=== PATIENT | male | born 1970 | race Hispanic/Latino ===

== ENCOUNTER 2021-01-07 17:32 | Inpatient (IN) | payer OTHER, SELFPAY ==
[2021-01-07] MEDS ORDERED: METHYLPREDNISOLONE 125 MG INJ ONE (18:21)
[2021-01-07] MEDS ORDERED: NA CHLORIDE 0.9% 500 ML ONE (18:21)
[2021-01-07] MEDS ORDERED: LEVALBUTEROL 1.25 MG/3 ML NEB ONE (18:21)
[2021-01-07 18:48] LABS: Absolute Lymphocytes (CBC) 0.7 K/uL (0.7-4.9); Basophils % 0.2 % (0-1.3); Hematocrit 37.9 % (39.6-49.0); Lymphocytes % 6.4 % (15.3-44.8); MPV 7.4 fL (7.6-11.3); RBC Red Blood Cell Count 4.38 M/uL (4.33-5.43)
--- NOTE | 2021-01-07 18:56 | RAD REPORT ---
EXAM DESCRIPTION: RAD - Chest Single View - 01/07/2021 6:05 pm CLINICAL HISTORY: COVID+;Cough;Dyspnea COMPARISON: None TECHNIQUE: AP portable chest image was obtained 01/07/2021 6:05 pm . FINDINGS: Lung volumes are low. Extensive airspace opacification present in the mid and lower left l coral field. Moderate mid and upper right lung field airspace opacification present. More patchy opacif ication present in the right lung base. Trachea is midline. Heart and vasculature are normal. No measurable pleural effusion and no pneumothorax. No acute bony abnormality seen. No acute aortic findings suspected. IMPRESSION: Moderate severity bilateral pneumonia pattern most likely COVID-19 pneumonia given the p rovided history.
[2021-01-07 18:59] LABS: Ferritin 373.5 ng/mL (26-388); Potassium 3.8 mmol/L (3.5-5.1)
--- NOTE | 2021-01-07 20:23 | ER ---
Nurse's Notes [facility] Name: Leandro Rand Age: 50 yrs Sex: Male : 1970 Arrival Date: 01/07/2021 Time: 17:35 Bed 19 Private MD: Diagnosis: Hypoxemia;Coronavirus infection, unspecified;Pneumonia due to other infectious organisms, not elsewhere classified Presentation: 01/07 17:40 Chief complaint: Patient states: COVID+ on Thursday, fever, body aches, headache, sv dyspnea, cough since yesterday. Coronavirus screen: Client denies travel out of the [place] in the last 14 days. Client presents with at least one sign or symptom that may indicate coronavirus-19. Standard/surgical mask placed on the client. Provider contacted for isolation considerations. Client reports previous positive COVID test result. Date of collection: January 01, 2021. Ebola Screen: No symptoms or risks identified at this time. Risk Assessment: Do you want to hurt yourself or someone else? Patient reports no desire to harm self or others. Onset of symptoms was January 06, 2021. 17:40 Method Of Arrival: Ambulatory sv 17:40 Acuity: FELI 1 sv 17:41 Initial Sepsis Screen: Does the patient meet any 2 criteria? RR > 20 per min. HR > 90 sv bpm. Yes Does the patient have a suspected source of infection? Yes: Other: COVID. Triage Assessment: 17:40 General: Appears in no apparent distress. uncomfortable, Behavior is calm, cooperative, sv appropriate for age. Neuro: Level of Consciousness is awake, alert, obeys commands, Oriented to person, place, time, situation, Gait is steady. Respiratory: Airway is patent Respiratory effort is labored, shallow, Respiratory pattern is tachypnea. Historical: - Allergies: 17:41 No Known Allergies; sv - PMHx: 17:41 Diabetes - NIDDM; sv - Immunization history:: Adult Immunizations up to date. - Social history:: Smoking status: Patient denies any tobacco usage or history of. - Family history:: not pertinent. - Hospitalizations: : No recent hospitalization is reported. Screenin:37 Abuse screen: Denies threats or abuse. Denies injuries from another. Nutritional ph screening: No deficits noted. Tuberculosis screening: No symptoms or risk factors identified. Fall Risk None identified. Assessment: 17:50 Reassessment: Code sepsis protocol started. ss 17:55 General: Appears uncomfortable, well groomed, Behavior is calm, cooperative, ph appropriate for age, Reports chills for fever for > 3 days. Pain: Denies pain. Neuro: Level of Consciousness is awake, alert, obeys commands, Oriented to person, place, time, situation. Cardiovascular: Capillary refill is sluggish in bilateral fingers. Respiratory: Reports shortness of breath at rest cough that is productive, Airway is patent Respiratory effort is labored, Respiratory pattern is tachypnea. GI: No signs and/or symptoms were reported involving the gastrointestinal system. Derm: Skin is intact, Skin is pink, warm \T\ dry. Musculoskeletal: Circulation, motion, and sensation intact. Range of motion: intact in all extremities. 17:58 Reassessment: Rt at bedside, pt placed on bi-pap at 100%, improved to 95%. ph 20:00 General: Appears uncomfortable, well groomed, Behavior is calm, cooperative, sf appropriate for age. Pain: Denies pain. Neuro: Level of Consciousness is awake, alert, obeys commands. Cardiovascular: Patient's skin is warm and dry. Rhythm is sinus rhythm. Respiratory: Airway is patent Respiratory effort is labored, Respiratory pattern is tachypnea Patient placed on BiPAP: FiO2%: 100 Respiratory Rate: 20. 20:27 Reassessment: Respiratory at bedside to adjust BiPAP. sf 21:00 Respiratory: Patient placed on BiPAP: Inspiratory Pressure: 20 Expiratory (EPAP) sf Pressure: 14 FiO2%: 100 Respiratory Rate: 20. 22:44 Reassessment: Patient appears in no apparent distress at this time. Patient and/or sf family updated on plan of care and expected duration. Pain level reassessed. Patient sleeping. 23:32 Reassessment: Patient appears in no apparent distress at this time. Patient and/or sf family updated on plan of care and expected duration. Pain level reassessed. Patient found slouching down in bed, pulled up and repositioned for comfort and to expand lungs. 01/08 00:44 Reassessment: Patient appears in no apparent distress at this time. Patient and/or sf family updated on plan of care and expected duration. Pain level reassessed. Given urinal per request Patient states symptoms have improved. Vital Signs: 01/07 17:41 BP 139 / 70; Pulse 112; Resp 42; Pulse Ox 50% on R/A; Weight 113.4 kg; Height 5 ft. 7 sv in. (170.18 cm); 18:37 BP 101 / 54; Pulse 99; Resp 30; Pulse Ox 95% on 100% BiPAP; ph 19:00 BP 120 / 57; Pulse 101; Resp 34; Pulse Ox 90% ; sf 20:00 BP 117 / 68; Pulse 97; Resp 34; Pulse Ox 89% ; sf 21:00 BP 106 / 67; Pulse 91; Resp 30; Pulse Ox 94% on BiPAP; sf 22:00 BP 113 / 75; Pulse 87; Resp 28; Pulse Ox 90% on BiPAP; sf 23:00 BP 92 / 67; Pulse 86; Resp 30; Pulse Ox 95% on BiPAP; sf 01/08 00:00 BP 102 / 57; Pulse 85; Resp 30; Pulse Ox 93% on BiPAP; sf 00:50 BP 111 / 83; Pulse 100; Resp 30; Pulse Ox 96% on BiPAP; sf 01:00 BP 130 / 77; Pulse 89; Resp 28; Pulse Ox 94% ; sf 01/07 17:41 Body Mass Index 39.16 (113.40 kg, 170.18 cm) sv 01/07 17:41 Pt placed on 100% NRB. Informed Dr Santoyo and RT paged to place BIPAP. sv ED Course: 17:35 Patient arrived in ED. ds1 17:39 Arm band placed on. sv 17:41 Triage completed. sv 17:44 Nicholas Santoyo MD is Attending Physician. rn 17:59 Lachelle Calderón RN is Primary Nurse. ph 18:00 Inserted saline lock: 20 gauge in right antecubital area, using aseptic technique. ph Blood collected. 18:05 XRAY Chest (1 view) In Process Unspecified. EDMS 18:37 Patient has correct armband on for positive identification. Bed in low position. Call ph light in reach. Side rails up X 1. support dba on. Pulse ox on. NIBP on. Door closed. Noise minimized. 19:02 Attending Physician role handed off by Nicholas Santoyo MD ma2 19:02 Reyna Ndiaye MD is Attending Physician. ma2 19:14 Primary Nurse role handed off by Lachelle Calderón RN mw2 19:44 Mick Mai, MARILU is Primary Nurse. sf 20:23 Steve Glaser DO is Hospitalizing Provider. [facility] 23:32 Door closed. Noise minimized. Lights dimmed. Verbal reassurance given. Head of bed sf lowered. 02 00:52 No provider procedures requiring assistance completed. sf 01:41 Patient admitted, IV remains in place. sf Administered Medications: 01/07 18:18 Drug: NS 0.9% 500 ml Route: IV; Rate: bolus; Site: right antecubital; ph 19:19 Follow up: Response: No adverse reaction; IV Status: Completed infusion; IV Intake: ph 500ml 18:20 Drug: SOLU-Medrol 125 mg Route: IVP; Site: right antecubital; ph 19:19 Follow up: Response: No adverse reaction ph 18:20 Drug: Xopenex (3) 1.25 mg Route: Inhalation; ph 19:19 Follow up: Response: No adverse reaction ph Intake: 19:19 IV: 500ml; Total: 500ml. ph Outcome: 20:23 Decision to Hospitalize by Provider. [facility] 01/08 00:52 Admitted to ICU accompanied by nurse, via stretcher, room 3, with oxygen, with chart, sf Report called to MARILU Ford 00:54 Condition: improved sf 01:49 Patient left the ED. sf Signatures: Dispatcher [employer] EDMirtha Robledo RN RN Deanna Tejada ds1 Nicholas Santoyo MD MD rn Smirch, Shelby, RN RN Lachelle Calderón RN RN Reyna Ndiaye MD MD [facility] [place] mw2 Mick Mai RN RN sf Corrections: (The following items were deleted from the chart) 02 17:46 17:40 Acuity: FELI 3 sv sv 17:52 17:41 BP 139 / 70; Pulse 112bpm; Resp 42bpm; Pulse Ox 50% RA; 113.4 kg; Height 5 ft. 7 sv in.; BMI: 39.1; sv 18:54 18:37 Pulse 99bpm; Resp 30bpm; Pulse Ox 95% 02 100% BiPAP; ph ph 20:37 20:00 BP 117 / 68; Pulse 97bpm; Resp 24bpm; Pulse Ox 89%; sf sf 20:37 19:00 BP 120 / 57; Pulse 101bpm; Resp 24bpm; Pulse Ox 90%; sf sf 01/08 00:49 00:44 Reassessment: Patient appears in no apparent distress at this time. Patient sf and/or family updated on plan of care and expected duration. Pain level reassessed. Patient states symptoms have improved. sf
--- NOTE | 2021-01-07 20:23 | EDPHYS ---
Physician Documentation [facility] Name: Leandro Rand Age: 50 yrs Sex: Male : 1970 Arrival Date: 01/07/2021 Time: 17:35 Bed 19 Private MD: ED Physician Reyna Ndiaye HPI: 01/07 17:52 This 50 yrs old Male presents to ER via Ambulatory with complaints of Covid+ rn Diff Breathing. 17:52 The patient has shortness of breath at rest. Onset: The symptoms/episode began/occurred rn yesterday. Duration: The symptoms are continuous. The patient's shortness of breath is aggravated by exertion, light activity, talking, walking. Associated signs and symptoms: Pertinent positives: productive cough, fever, Pertinent negatives: hemoptysis. Severity of symptoms: At their worst the symptoms were moderate in the emergency department the symptoms are unchanged. The patient has not experienced similar symptoms in the past. The patient has been recently seen by a physician:. Reports COVID +, tested 5-6 days ago, became sob and worse since yesterday, + cough, worse with exertion. No chest pain. No chronic lung problems. . Historical: - Allergies: 17:41 No Known Allergies; sv - PMHx: 17:41 Diabetes - NIDDM; sv - Immunization history:: Adult Immunizations up to date. - Social history:: Smoking status: Patient denies any tobacco usage or history of. - Family history:: not pertinent. - Hospitalizations: : No recent hospitalization is reported. ROS: 17:52 Constitutional: + fever Eyes: Negative for injury, pain, redness, and discharge, ENT: rn Negative for injury, pain, and discharge, Cardiovascular: + palpitations Respiratory: + sob and cough Abdomen/GI: Negative for abdominal pain, nausea, vomiting, diarrhea, and constipation, MS/Extremity: Negative for injury and deformity, Skin: Negative for injury, rash, and discoloration, Neuro: + generalized weakness Exam: 17:52 Constitutional: This is a well developed, well nourished patient who is awake, alert, rn moderate tachypnea with labored breathing Head/Face: Normocephalic, atraumatic. ENT: NO stridor, dry MM Cardiovascular: Tachycardic, regular Respiratory: + moderate tachypnea, poor inspiratory air flow Abdomen/GI: Soft, non-tender Skin: Warm, dry MS/ Extremity: Pulses equal, no cyanosis. Neurovascular intact. Full, normal range of motion. Equal circumference. Neuro: Awake and alert, GCS 15 18:23 ECG was reviewed by the Attending Physician. rn Vital Signs: 17:41 BP 139 / 70; Pulse 112; Resp 42; Pulse Ox 50% on R/A; Weight 113.4 kg; Height 5 ft. 7 sv in. (170.18 cm); 18:37 BP 101 / 54; Pulse 99; Resp 30; Pulse Ox 95% on 100% BiPAP; ph 19:00 BP 120 / 57; Pulse 101; Resp 34; Pulse Ox 90% ; sf 20:00 BP 117 / 68; Pulse 97; Resp 34; Pulse Ox 89% ; sf 21:00 BP 106 / 67; Pulse 91; Resp 30; Pulse Ox 94% on BiPAP; sf 22:00 BP 113 / 75; Pulse 87; Resp 28; Pulse Ox 90% on BiPAP; sf 23:00 BP 92 / 67; Pulse 86; Resp 30; Pulse Ox 95% on BiPAP; sf 01/08 00:00 BP 102 / 57; Pulse 85; Resp 30; Pulse Ox 93% on BiPAP; sf 00:50 BP 111 / 83; Pulse 100; Resp 30; Pulse Ox 96% on BiPAP; sf 01:00 BP 130 / 77; Pulse 89; Resp 28; Pulse Ox 94% ; sf 01/07 17:41 Body Mass Index 39.16 (113.40 kg, 170.18 cm) sv 01/07 17:41 Pt placed on 100% NRB. Informed Dr Santoyo and RT paged to place BIPAP. sv MDM: 17:44 Patient medically screened. rn 20:19 Differential diagnosis: Anemia Anxiety Reaction asthma, Bronchitis pneumonia, reactive ma2 airway disease, Sepsis. Data reviewed: vital signs, nurses notes. Counseling: I had a detailed discussion with the patient and/or guardian regarding: the historical points, exam findings, and any diagnostic results supporting the discharge/admit diagnosis, the presence of at least one elevated blood pressure reading (>120/80) during this emergency department visit, the need for further work-up and treatment in the hospital. 01/07 17:52 Order name: CBC with Diff rn 01/07 17:52 Order name: Basic Metabolic Panel rn 01/07 17:52 Order name: C-Reactive Protein rn 01/07 17:52 Order name: Lactate rn 01/07 17:52 Order name: Ferritin rn 01/07 17:52 Order name: Blood Culture Adult (2) rn 01/07 17:52 Order name: Procalcitonin; Complete Time: 20:00 rn 01/07 17:52 Order name: CBC with Automated Diff EDMS 01/07 17:52 Order name: Basic Metabolic Panel; Complete Time: 19:23 EDMS 01/07 17:52 Order name: C-Reactive Protein; Complete Time: 19:23 EDMS 01/07 17:52 Order name: Lactate; Complete Time: 18:33 EDMS 01/07 17:52 Order name: Ferritin; Complete Time: 19:23 EDMS 01/07 21:19 Order name: Comprehensive Metabolic Panel EDMS 01/07 21:19 Order name: Comprehensive Metabolic Panel EDMS 01/07 17:52 Order name: IV Start; Complete Time: 18:01 rn 01/07 17:52 Order name: XRAY Chest (1 view); Complete Time: 19:23 rn 01/07 17:52 Order name: BIPAP rn 01/07 18:18 Order name: Labs - recollect needed: recollect all green top; Complete Time: 18:35 bd 02 21:20 Order name: Consistent Carb (ADA) [address] EDMS 01/07 21:20 Order name: CBC with Automated Diff EDMS 01/07 21:20 Order name: CBC with Automated Diff EDMS 01/07 21:26 Order name: CBC Smear Scan EDMS EC:23 Rate is 100 beats/min. Rhythm is regular. QRS [place] is Normal. [place] interval is normal. rn QRS interval is normal. QT interval is normal. No Q waves. T waves are Normal. No ST changes noted. Clinical impression: Normal ECG. Interpreted by me. Reviewed by me. Administered Medications: 18:18 Drug: NS 0.9% 500 ml Route: IV; Rate: bolus; Site: right antecubital; ph 19:19 Follow up: Response: No adverse reaction; IV Status: Completed infusion; IV Intake: ph 500ml 18:20 Drug: SOLU-Medrol 125 mg Route: IVP; Site: right antecubital; ph 19:19 Follow up: Response: No adverse reaction ph 18:20 Drug: Xopenex (3) 1.25 mg Route: Inhalation; ph 19:19 Follow up: Response: No adverse reaction ph Disposition: 01/07/21 20:23 Hospitalization ordered by Steve Glaser for Inpatient Admission. Preliminary diagnosis are Hypoxemia, Coronavirus infection, unspecified, Pneumonia due to other infectious organisms, not elsewhere classified. - Bed requested for Intensive Care Unit. - Status is Inpatient Admission. sf - Condition is Stable. - Problem is new. - Symptoms are unchanged. Signatures: Dispatcher [employer] EDMS Apurva Queen Stephanie, RN RN Nicholas Santoyo MD MD rn Calderón, MARILU Larose [facility] RN Reyna Ndiaye MD MD [facility] Mick Mai RN RN sf Corrections: (The following items were deleted from the chart) 23:36 20:23 Hospitalization Ordered by Steve Glaser DO for Inpatient Admission. Preliminary cg diagnosis is Hypoxemia; Coronavirus infection, unspecified; Pneumonia due to other infectious organisms, not elsewhere classified. Bed requested for Intensive Care Unit. Status is Inpatient Admission. Condition is Stable. Problem is new. Symptoms are unchanged. [facility] 01/08 01:49 01/07 23:36 01/07/2021 20:23 Hospitalization Ordered by Steve Glaser DO for Inpatient sf Admission. Preliminary diagnosis is Hypoxemia; Coronavirus infection, unspecified; Pneumonia due to other infectious organisms, not elsewhere classified. Bed requested for Intensive Care Unit. Status is Inpatient Admission. Condition is Stable. Problem is new. Symptoms are unchanged.
[2021-01-07] MEDS ORDERED: IPRATROPIUM BROM 0.5MG/2.5ML NEB PRN (21:13)
[2021-01-07] MEDS ORDERED: ZOLPIDEM TARTRATE 5 MG TABLET PO PRN (21:13)
[2021-01-07] MEDS ORDERED: ALBUTEROL 2.5 MG/3 ML NEB SOL NEB PRN (21:13)
[2021-01-07 21:26] LABS: Blood Morphology Comment NOT SEEN (NOT SEEN); Platelet Estimate ADEQ
[2021-01-07 21:27] LABS: White Blood Cell Scan OK (OK)
--- NOTE | 2021-01-07 21:27 | P.HP ---
Certification for Inpatient Patient admitted to: Inpatient Patient will require the following post-hospital care: None Practitioner: I am a practitioner with admitting privileges, knowledge of patient current condition, hospital course, and medical plan of care. Services: Services provided to patient in accordance with Admission requirements found in Title 42 Section 412.3 of the Code of Federal Regulations Patient History Date of Service: 01/08/21 Reason for admission: covid 19 disease History of Present Illness: 50 y o male with medical hx of diabetes type 2 admitted for management of covid 19 disease. he had c/o sob for 3 days and weakness. he denied any overt fever but he did state that he has weakness and some mild chest discomfort. he denied any headache, focal weakness or n/v. he was noted to be significantly short of breath and hypoxic in the ED. He was started on bipap for resp failure and he was admitted for inpt care. CXR done in the ED revealed Allergies No Known Allergies Allergy (Verified 01/08/21 02:35) Home medications list reviewed: Yes Home Medications: Famotidine [Pepcid] 20 mg PO DAILY 01/08/21 Metformin HCl [Glucophage] 500 mg PO BIDWM 01/08/21 Review of Systems General: Weakness, Malaise Eyes: Unremarkable ENT: Unremarkable Respiratory: Cough, Shortness of Breath, SOB with Excertion Cardiovascular: Chest Pain Gastrointestinal: Unremarkable Genitourinary: Unremarkable Integumentary: Unremarkable Neurological: Unremarkable Physical Examination - Physical Exam General: Alert, Oriented x3, Moderate distress HEENT: Atraumatic, Normocephalic Neck: Supple Respiratory: Diminished Cardiovascular: Regular rate/rhythm, Normal S1 S2 Gastrointestinal: Normal bowel sounds Neurological: Normal speech, Normal strength at 5/5 x4 extr, Cranial nerves 3-12 intact - Studies Laboratory Data (last 24 hrs) 01/07/21 18:24: Sodium 135 L, Potassium 3.8, BUN 16, Creatinine 1.00, Glucose 406 H* 01/07/21 17:57: WBC 11.60 H, Hgb 12.8 L, Hct 37.9 L, Plt Count 295 Assessment and Plan - Plan 1.COVID 19 disease-he has been started on dexamethasone, zinc and vit c. remdesivir dose to be considered as per pulm/ID. 2.Diabetes type 2-SSI and carb restricted diet to be continued. 3.Resp failure-he is on bipap. we will monitor closely. 4.Pneumonia-suspected based on covid disease. empiric antibiotic of azithromycin and ceftriaxone has been started. we will monitor closely. - Advance Directives Does patient have a Living Will: No Does patient have a Durable POA for Healthcare: No
[2021-01-08] MEDS ORDERED: NA CHLORIDE 0.9% 250 ML ONE (01:57)
[2021-01-08] MEDS ORDERED: AZITHROMYCIN 500 MG INJ IVPB ONE (01:58)
[2021-01-08] MEDS ORDERED: AZITHROMYCIN IV 500 MG in NA CHLORIDE 0.9% 250 ML IVPB SCH (02:00)
[2021-01-08] MEDS ORDERED: CEFTRIAXONE/SWI 1gm 1 GM/10 ML SYR IV SCH (02:00)
[2021-01-08 05:21] LABS: Absolute Lymphocytes (CBC) 0.3 K/uL (0.7-4.9); Basophils % 0.1 % (0-1.3); Hematocrit 36.8 % (39.6-49.0); Lymphocytes % 3.7 % (15.3-44.8); MPV 7.5 fL (7.6-11.3); RBC Red Blood Cell Count 4.14 M/uL (4.33-5.43)
[2021-01-08 05:35] LABS: ALT/SGPT 60 U/L (12-78); AST/SGOT 45 U/L (15-37); Albumin 2.3 g/dL (3.4-5.0); Alkaline Phosphatase 225 U/L (45-117); BUN Blood Urea Nitrogen 20 mg/dL (7-18); Bicarbonate 23 mmol/L (21-32); Bilirubin Total 0.4 mg/dL (0.2-1.0); Glucose Level 383 mg/dL (74-106); Potassium 4.3 mmol/L (3.5-5.1); Protein, Total 7.7 g/dL (6.4-8.2); Sodium Level 139 mmol/L (136-145)
[2021-01-08] MEDS ORDERED: PNEUMOCOCCAL VACCINE 0.5 ML IMVAC ONE (08:00)
[2021-01-08] MEDS: INSULIN -REGULAR HUMAN 50 UNIT/0.5 ML ML SQ SCH ×5 (08:56→20:11)
[2021-01-08] MEDS: IVERMECTIN 3 MG TABLET PO SCH (08:57)
[2021-01-08] MEDS: ZINC SULFATE 220 MG CAP PO SCH (08:57)
[2021-01-08] MEDS: FAMOTIDINE 20 MG TAB PO SCH (08:57)
[2021-01-08] MEDS ORDERED: ENOXAPARIN 40 MG/0.4 ML SQ SCH (09:00)
[2021-01-08] MEDS ORDERED: ASCORBIC ACID 500 MG TABLET PO SCH (09:00)
[2021-01-08] MEDS ORDERED: METHYLPRED NA SUC 80 MG in NA CHLORIDE 0.9% 100 ML IV SCH (09:00)
[2021-01-08] MEDS ORDERED: CEFTRIAXONE 1 GM/NS 50 ML 1 GM/50 ML BAG IV SCH (09:00)
[2021-01-08] MEDS: METHYLPREDNISOLONE 125 MG INJ IV SCH ×3 (09:07→20:11)
[2021-01-08] MEDS: INSULIN GLARGINE 100 UNITS/ML SQ SCH ×2 (12:00→20:09)
[2021-01-08] MEDS: BENZONATATE 100 MG CAP PO PRN ×2 (12:07→17:47)
--- NOTE | 2021-01-08 12:29 | P.CNS ---
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 Complaint: Respiratory failure from orr virus History of Present Illness: Patient is 50 years of age admitted with 2 week history of being increasing shortness of breath fever cough bodyaches was diagnosed with orr virus pneumonia is currently on high-flow with high concentrations of oxygen Allergies No Known Allergies Allergy (Verified 01/08/21 02:35) Home Medications: Famotidine [Pepcid] 20 mg PO DAILY 01/08/21 Metformin HCl [Glucophage] 500 mg PO BIDWM 01/08/21 - Past Medical/Surgical History Diabetic: Yes -: diabetes -: Acid reflux - Social History Alcohol use: No CD- Drugs: No Caffeine use: Yes Place of Residence: Home Review of Systems General: Weakness Respiratory: Cough, Shortness of Breath Physical Examination Temp Pulse Resp BP Pulse Ox 97.1 F 107 H 38 H 104/56 L 90 L 01/08/21 08:00 01/08/21 09:00 01/08/21 09:00 01/08/21 09:00 01/08/21 09:00 Laboratory Data (last 24 hrs) 01/07/21 18:24: Sodium 135 L, Potassium 3.8, BUN 16, Creatinine 1.00, Glucose 406 H* 01/07/21 17:57: WBC 11.60 H, Hgb 12.8 L, Hct 37.9 L, Plt Count 295 - Problems (1) COVID-19 Current Visit: Yes Status: Acute Plan: Patient is 50 years of age admitted with respiratory failure from orr virus continue with high dose with multi vitamins fully anti coagulated high-dose steroids ivermectin labs reviewed
[2021-01-08] MEDS: ASCORBIC ACID 500 MG TABLET PO SCH ×2 (13:04→20:12)
--- NOTE | 2021-01-08 15:56 | P.PN ---
Subjective Date of Service: 01/08/21 Chief Complaint: Respiratory failure from orr virus Patient BiPAP depending, on 100% FiO2 and saturating 88 to 90%. Physical Examination - Vital Signs Temperature: 97.4 F Blood Pressure: 132/76 Pulse: 93 Respirations: 27 Pulse Ox (%): 89 - Physical Exam General: Alert, Oriented x3, Other (Awake) HEENT: Other (BiPAP applied) Neck: Supple Respiratory: Crackles/rales (Bilateral) Cardiovascular: No edema, Regular rate/rhythm Gastrointestinal: Soft and benign, Non-distended Musculoskeletal: No clubbing, No swelling Integumentary: No rashes, No erythema Neurological: Other (No focal motor deficit) - Studies Laboratory Data (last 24 hrs) 01/07/21 18:24: Sodium 135 L, Potassium 3.8, BUN 16, Creatinine 1.00, Glucose 406 H* 01/07/21 17:57: WBC 11.60 H, Hgb 12.8 L, Hct 37.9 L, Plt Count 295 Assessment And Plan - Current Problems (Diagnosis) (1) Acute respiratory failure with hypoxia Current Visit: Yes Status: Acute (2) Pneumonia due to COVID-19 virus Current Visit: Yes Status: Acute (3) Type 2 diabetes mellitus Current Visit: Yes Status: Acute - Plan Continue BiPAP therapy. High-dose IV steroid. Vitamin-D, vitamin-C and zinc supplementation. Patient seen by pulmonary and given a dose of Ivermectin. Chest physiotherapy. Will give convalescent plasma and Remdesivir. Aggressive insulin sliding scale for glucose management. Hold home antidiabetics. Start Lantus insulin for hyperglycemia. Titrate oxygen.
[2021-01-08] MEDS: METFORMIN HCL 500 MG TAB PO SCH (16:43)
[2021-01-08] MEDS ORDERED: NA CHLORIDE 0.9% 250 ML IV ONE (17:00)
[2021-01-08] MEDS ORDERED: Remdesivir 200 MG in NA CHLORIDE 0.9% 250 ML IV ONE (17:00)
[2021-01-08] MEDS ORDERED: dexAMETHasone 10 MG/ML VIAL IV SCH (18:00)
--- NOTE | 2021-01-08 18:43 | EKG ---
Test Date: 2021-01-07 Test Time: 18:11:34 Cloth Neutralizer: PH MEASUREMENT RESULTS: Intervals: Rate: 100 UT: 122 QRSD: 78 QT: 362 QTc: 466 [place]: P: 54 UT: 122 QRS: 19 T: 39 INTERPRETIVE STATEMENTS: Normal sinus rhythm Normal ECG No previous ECG available for comparison Electronically Signed On 01-08-21 18:40:25 CHART CHANGER by Renzo Schmitz
[2021-01-08] MEDS: APIXABAN 5 MG TABLET PO SCH (20:10)
[2021-01-08] MEDS: MELATONIN 5 MG TABLET PO SCH (20:10)
[2021-01-08] MEDS: THIAMINE HCL 100 MG TABLET PO SCH (20:12)
[2021-01-09 05:09] LABS: Absolute Lymphocytes (CBC) 0.8 K/uL (0.7-4.9); Basophils % 0.2 % (0-1.3); Hematocrit 37.3 % (39.6-49.0); Lymphocytes % 7.4 % (15.3-44.8); MPV 7.5 fL (7.6-11.3)
[2021-01-09 05:27] LABS: ALT/SGPT 51 U/L (12-78); AST/SGOT 40 U/L (15-37); Albumin 2.4 g/dL (3.4-5.0); Alkaline Phosphatase 201 U/L (45-117); BUN Blood Urea Nitrogen 23 mg/dL (7-18); Bicarbonate 28 mmol/L (21-32); Bilirubin Direct < 0.1 mg/dL (0-0.2); Bilirubin Total 0.3 mg/dL (0.2-1.0); Glucose Level 323 mg/dL (74-106); Potassium 4.3 mmol/L (3.5-5.1); Protein, Total 7.9 g/dL (6.4-8.2); Sodium Level 143 mmol/L (136-145)
[2021-01-09] MEDS ORDERED: D50W 25 GM/50 ML SYRINGE IV PRN (08:20)
[2021-01-09] MEDS ORDERED: GLUCAGON 1 MG/VIAL IM PRN ×2 (08:20→11:45)
[2021-01-09] MEDS: FAMOTIDINE 20 MG TAB PO SCH (08:32)
[2021-01-09] MEDS: INSULIN -REGULAR HUMAN 50 UNIT/0.5 ML ML SQ SCH ×4 (08:32→20:20)
[2021-01-09] MEDS: ASCORBIC ACID 500 MG TABLET PO SCH ×3 (08:33→20:19)
[2021-01-09] MEDS: APIXABAN 5 MG TABLET PO SCH ×2 (08:33→20:19)
[2021-01-09] MEDS: ZINC SULFATE 220 MG CAP PO SCH (08:33)
[2021-01-09] MEDS: METFORMIN HCL 500 MG TAB PO SCH ×2 (08:33→17:44)
[2021-01-09] MEDS: VITAMIN D 1000 UNIT TAB PO SCH (08:33)
[2021-01-09] MEDS: THIAMINE HCL 100 MG TABLET PO SCH ×2 (08:33→20:19)
[2021-01-09] MEDS: METHYLPREDNISOLONE 125 MG INJ IV SCH ×3 (08:34→20:19)
[2021-01-09] MEDS: INSULIN GLARGINE 100 UNITS/ML SQ SCH ×2 (08:34→20:20)
[2021-01-09] MEDS: BENZONATATE 100 MG CAP PO PRN (08:47)
[2021-01-09] MEDS ORDERED: SITAGLIPTIN PHOS 100 MG TAB PO SCH (09:00)
[2021-01-09] MEDS: Remdesivir 100 MG in NA CHLORIDE 0.9% 250 ML IV SCH (09:14)
--- NOTE | 2021-01-09 11:47 | P.PN ---
Subjective Date of Service: 01/09/21 Chief Complaint: Respiratory failure from orr virus Subjective: Improving (No change in patient's condition still hypoxic) Review of Systems General: Weakness Respiratory: Shortness of Breath Physical Examination - Vital Signs Temperature: 97.9 F Blood Pressure: 145/89 Pulse: 86 Respirations: 39 Pulse Ox (%): 89 Assessment & Plan - Problems (Diagnosis) (1) COVID-19 Current Visit: Yes Status: Acute Plan: Respiratory failure from orr virus diabetes is out of control and insulin increase metformin increase sitagliptin at spironolactone
[2021-01-09] MEDS ORDERED: D50W 25 GM/50 ML VIAL IV PRN (11:57)
[2021-01-09] MEDS: SPIRONOLACTONE 25 MG TABLET PO SCH (12:14)
--- NOTE | 2021-01-09 13:13 | P.PN ---
Subjective Date of Service: 01/09/21 Chief Complaint: Respiratory failure from orr virus Patient doing better than yesterday. He was seen up in a chair. He was tolerating 100% non-rebreather. He states he feels better. Physical Examination - Vital Signs Temperature: 97.9 F Blood Pressure: 153/93 Pulse: 66 Respirations: 39 Pulse Ox (%): 89 - Physical Exam General: Alert, Mild distress Neck: JVD not distended Respiratory: Normal air movement Cardiovascular: No edema, Regular rate/rhythm Gastrointestinal: Non-distended Musculoskeletal: No swelling Integumentary: No rashes Neurological: Other (No focal motor deficit) Assessment And Plan - Current Problems (Diagnosis) (1) Acute respiratory failure with hypoxia Current Visit: Yes Status: Acute (2) Pneumonia due to COVID-19 virus Current Visit: Yes Status: Acute (3) Type 2 diabetes mellitus Current Visit: Yes Status: Acute - Plan Continue BiPAP therapy, and high-flow oxygen as needed Contain High-dose IV steroid. Vitamin-D, vitamin-C and zinc supplementation. Status post Ivermectin. Status post convalescent plasma. Patient is getting Remdesivir. Aggressive insulin sliding scale for glucose management. Hold home antidiabetics. Titrate Lantus insulin. Lantus increased to 10 mg b.i.d. to treat hypergl ycemia. Pulmonary is following.
[2021-01-09] MEDS: INSULIN 70/30 100 UNITS/ML SQ SCH (17:43)
[2021-01-09] MEDS: MELATONIN 5 MG TABLET PO SCH (20:19)
[2021-01-10 05:32] LABS: Absolute Lymphocytes (CBC) 0.5 K/uL (0.7-4.9); Basophils % 0.2 % (0-1.3); Hematocrit 37.7 % (39.6-49.0); Lymphocytes % 5.1 % (15.3-44.8); MPV 7.3 fL (7.6-11.3); RBC Red Blood Cell Count 4.26 M/uL (4.33-5.43)
[2021-01-10 05:51] LABS: ALT/SGPT 40 U/L (12-78); AST/SGOT 25 U/L (15-37); Albumin 2.3 g/dL (3.4-5.0); Alkaline Phosphatase 174 U/L (45-117); Bilirubin Direct < 0.1 mg/dL (0-0.2); Bilirubin Total 0.3 mg/dL (0.2-1.0); Ferritin 395.1 ng/mL (26-388); Protein, Total 7.1 g/dL (6.4-8.2)
[2021-01-10] MEDS: INSULIN 70/30 100 UNITS/ML SQ SCH ×2 (07:30→17:28)
[2021-01-10 08:02] LABS: Blood Morphology Comment NOT SEEN (NOT SEEN); Platelet Estimate ADEQ
--- NOTE | 2021-01-10 08:21 | P.PN ---
Subjective Date of Service: 01/10/21 Chief Complaint: Respiratory failure from orr virus No change still requiring high concentrations of oxygen Review of Systems General: Weakness Respiratory: Shortness of Breath Physical Examination - Vital Signs Temperature: 97.3 F Blood Pressure: 138/86 Pulse: 68 Respirations: 33 Pulse Ox (%): 88 Assessment & Plan - Problems (Diagnosis) (1) COVID-19 Current Visit: Yes Status: Acute Plan: Respiratory failure will requiring high concentrations of oxygen blood sugars very high patient has had Remdesmirr ivermectin currently on steroid increase insulin also on low-dose spironolactone
[2021-01-10] MEDS: INSULIN -REGULAR HUMAN 50 UNIT/0.5 ML ML SQ SCH ×4 (09:07→20:18)
[2021-01-10] MEDS: VITAMIN D 1000 UNIT TAB PO SCH (09:08)
[2021-01-10] MEDS: METFORMIN HCL 500 MG TAB PO SCH ×2 (09:08→17:28)
[2021-01-10] MEDS: ASCORBIC ACID 500 MG TABLET PO SCH ×3 (09:08→20:18)
[2021-01-10] MEDS: THIAMINE HCL 100 MG TABLET PO SCH ×2 (09:09→20:19)
[2021-01-10] MEDS: FAMOTIDINE 20 MG TAB PO SCH (09:09)
[2021-01-10] MEDS: ZINC SULFATE 220 MG CAP PO SCH (09:09)
[2021-01-10] MEDS: Remdesivir 100 MG in NA CHLORIDE 0.9% 250 ML IV SCH (09:09)
[2021-01-10] MEDS: SPIRONOLACTONE 25 MG TABLET PO SCH (09:09)
[2021-01-10] MEDS: METHYLPREDNISOLONE 125 MG INJ IV SCH ×3 (09:09→20:17)
[2021-01-10] MEDS: APIXABAN 5 MG TABLET PO SCH ×2 (09:09→20:19)
[2021-01-10] MEDS: SITAGLIPTIN PHOS 100 MG TAB PO SCH (09:10)
[2021-01-10] MEDS: INSULIN GLARGINE 100 UNITS/ML SQ SCH (09:10)
[2021-01-10] MEDS: IVERMECTIN 3 MG TABLET PO SCH (09:11)
--- NOTE | 2021-01-10 12:30 | P.PN ---
Subjective Date of Service: 01/10/21 Chief Complaint: Respiratory failure from orr virus Patient not much change from yesterday. Patient is tolerating high-flow. Physical Examination - Vital Signs Temperature: 97.3 F Blood Pressure: 138/86 Pulse: 68 Respirations: 31 Pulse Ox (%): 83 - Physical Exam General: Alert, In no apparent distress, Oriented x3 Neck: JVD not distended Cardiovascular: No edema, Regular rate/rhythm, Normal S1 S2 Gastrointestinal: Soft and benign, Non-distended Musculoskeletal: No swelling Integumentary: No rashes Neurological: Other (No focal motor deficit.) Assessment And Plan - Current Problems (Diagnosis) (1) Acute respiratory failure with hypoxia Current Visit: Yes Status: Acute (2) Pneumonia due to COVID-19 virus Current Visit: Yes Status: Acute (3) Type 2 diabetes mellitus Current Visit: Yes Status: Acute - Plan Continue BiPAP therapy, and high-flow oxygen as needed Continue High-dose IV steroid. Vitamin-D, vitamin-C and zinc supplementation. Status post Ivermectin. Status post convalescent plasma. Patient is getting Remdesivir. Aggressive insulin sliding scale for glucose management. Titrate Novolin 70/30. Dose increased to 40 mg b.i.d. given persistent hyperglycemia Pulmonary is following.
[2021-01-10] MEDS ORDERED: INSULIN 70/30 100 UNITS/ML SQ SCH (16:30)
[2021-01-10] MEDS: MELATONIN 5 MG TABLET PO SCH (20:18)
[2021-01-10] MEDS: BENZONATATE 100 MG CAP PO PRN (20:18)
[2021-01-11 05:51] LABS: Absolute Lymphocytes (CBC) 0.6 K/uL (0.7-4.9); Basophils % 0.3 % (0-1.3); Hematocrit 37.2 % (39.6-49.0); Lymphocytes % 5.1 % (15.3-44.8); MPV 7.2 fL (7.6-11.3); RBC Red Blood Cell Count 4.26 M/uL (4.33-5.43)
[2021-01-11 06:05] LABS: ALT/SGPT 35 U/L (12-78); AST/SGOT 19 U/L (15-37); Albumin 2.3 g/dL (3.4-5.0); Alkaline Phosphatase 161 U/L (45-117); BUN Blood Urea Nitrogen 25 mg/dL (7-18); Bicarbonate 28 mmol/L (21-32); Bilirubin Direct 0.1 mg/dL (0-0.2); Bilirubin Total 0.4 mg/dL (0.2-1.0); Ferritin 244.7 ng/mL (26-388); Glucose Level 281 mg/dL (74-106); Potassium 4.4 mmol/L (3.5-5.1); Protein, Total 6.8 g/dL (6.4-8.2); Sodium Level 140 mmol/L (136-145)
[2021-01-11] MEDS: INSULIN -REGULAR HUMAN 50 UNIT/0.5 ML ML SQ SCH ×4 (08:50→21:03)
[2021-01-11] MEDS: INSULIN 70/30 100 UNITS/ML SQ SCH ×2 (08:51→17:33)
[2021-01-11] MEDS: VITAMIN D 1000 UNIT TAB PO SCH (08:56)
[2021-01-11] MEDS: SITAGLIPTIN PHOS 100 MG TAB PO SCH (09:06)
[2021-01-11] MEDS: APIXABAN 5 MG TABLET PO SCH ×2 (09:06→21:01)
[2021-01-11] MEDS: ZINC SULFATE 220 MG CAP PO SCH (09:06)
[2021-01-11] MEDS: ASCORBIC ACID 500 MG TABLET PO SCH ×3 (09:06→21:03)
[2021-01-11] MEDS: THIAMINE HCL 100 MG TABLET PO SCH ×2 (09:06→21:03)
[2021-01-11] MEDS: METFORMIN HCL 500 MG TAB PO SCH ×2 (09:07→17:34)
[2021-01-11] MEDS: FAMOTIDINE 20 MG TAB PO SCH (09:07)
[2021-01-11] MEDS: SPIRONOLACTONE 25 MG TABLET PO SCH (09:07)
[2021-01-11] MEDS: METHYLPREDNISOLONE 125 MG INJ IV SCH ×3 (09:08→21:03)
[2021-01-11] MEDS: Remdesivir 100 MG in NA CHLORIDE 0.9% 250 ML IV SCH (09:09)
--- NOTE | 2021-01-11 17:01 | P.PN ---
Subjective Date of Service: 01/11/21 Chief Complaint: Respiratory failure from orr virus Patient no major change from yesterday. Patient is on high-flow oxygen but tolerating lower flow rate today. Physical Examination - Vital Signs Temperature: 97.3 F Blood Pressure: 127/74 Pulse: 71 Respirations: 32 Pulse Ox (%): 86 - Physical Exam General: Alert, In no apparent distress, Oriented x3 Neck: JVD not distended Cardiovascular: No edema, Regular rate/rhythm, Normal S1 S2 Gastrointestinal: Soft and benign, Non-distended Musculoskeletal: No swelling Integumentary: No rashes Neurological: Other (No focal motor deficit) Assessment And Plan - Current Problems (Diagnosis) (1) Acute respiratory failure with hypoxia Current Visit: Yes Status: Acute (2) Pneumonia due to COVID-19 virus Current Visit: Yes Status: Acute (3) Type 2 diabetes mellitus Current Visit: Yes Status: Acute - Plan Continue BiPAP therapy, and high-flow oxygen as needed Continue High-dose IV steroid. Vitamin-D, vitamin-C and zinc supplementation. Status post Ivermectin. Status post convalescent plasma. Continue Remdesivir. Aggressive insulin sliding scale for glucose management. Titrate Novolin 70/30. Pulmonary is following.
[2021-01-11] MEDS: MELATONIN 5 MG TABLET PO SCH (21:01)
[2021-01-12 05:59] LABS: ALT/SGPT 28 U/L (12-78); AST/SGOT 13 U/L (15-37); Albumin 2.3 g/dL (3.4-5.0); Alkaline Phosphatase 163 U/L (45-117); Bilirubin Direct 0.2 mg/dL (0-0.2); Bilirubin Total 0.5 mg/dL (0.2-1.0); Ferritin 214.4 ng/mL (26-388); Protein, Total 6.6 g/dL (6.4-8.2)
[2021-01-12] MEDS: INSULIN 70/30 100 UNITS/ML SQ SCH ×2 (09:27→16:59)
[2021-01-12] MEDS: INSULIN -REGULAR HUMAN 50 UNIT/0.5 ML ML SQ SCH ×4 (09:27→20:53)
[2021-01-12] MEDS: VITAMIN D 1000 UNIT TAB PO SCH (09:28)
[2021-01-12] MEDS: THIAMINE HCL 100 MG TABLET PO SCH ×2 (09:28→20:54)
[2021-01-12] MEDS: APIXABAN 5 MG TABLET PO SCH ×2 (09:28→20:55)
[2021-01-12] MEDS: FAMOTIDINE 20 MG TAB PO SCH (09:28)
[2021-01-12] MEDS: ASCORBIC ACID 500 MG TABLET PO SCH ×3 (09:28→20:54)
[2021-01-12] MEDS: SITAGLIPTIN PHOS 100 MG TAB PO SCH (09:28)
[2021-01-12] MEDS: METFORMIN HCL 500 MG TAB PO SCH ×2 (09:28→16:59)
[2021-01-12] MEDS: METHYLPREDNISOLONE 125 MG INJ IV SCH ×3 (09:30→20:54)
[2021-01-12] MEDS: ZINC SULFATE 220 MG CAP PO SCH (09:32)
[2021-01-12] MEDS: SPIRONOLACTONE 25 MG TABLET PO SCH (09:32)
[2021-01-12] MEDS: Remdesivir 100 MG in NA CHLORIDE 0.9% 250 ML IV SCH (09:32)
--- NOTE | 2021-01-12 10:46 | P.PN ---
Subjective Date of Service: 01/12/21 Chief Complaint: Respiratory failure from orr virus Patient no major change from yesterday. Patient is on high-flow oxygen. His face is a bit swollen. Physical Examination - Vital Signs Temperature: 98.9 F Blood Pressure: 137/84 Pulse: 75 Respirations: 28 Pulse Ox (%): 92 - Physical Exam General: Alert, In no apparent distress, Oriented x3 HEENT: Other (reddened cheeks bilaterally.) Neck: Supple Cardiovascular: No edema, Regular rate/rhythm, Normal S1 S2 Gastrointestinal: Soft and benign, Non-distended Musculoskeletal: No swelling Integumentary: No rashes Neurological: Other (No focal motor deficit.) Assessment And Plan - Current Problems (Diagnosis) (1) Acute respiratory failure with hypoxia Current Visit: Yes Status: Acute (2) Pneumonia due to COVID-19 virus Current Visit: Yes Status: Acute (3) Type 2 diabetes mellitus Current Visit: Yes Status: Acute - Plan Continue BiPAP therapy, and high-flow oxygen as needed Continue High-dose IV steroid. Vitamin-D, vitamin-C and zinc supplementation. Status post Ivermectin. Status post convalescent plasma. Aggressive insulin sliding scale for glucose management. Titrate Novolin 70/30. Pulmonary is following.
[2021-01-12] MEDS: MELATONIN 5 MG TABLET PO SCH (20:55)
[2021-01-12] MEDS: ACETAMINOPHEN 500 MG TAB PO PRN (20:55)
[2021-01-13 05:08] LABS: Absolute Lymphocytes (CBC) 0.7 K/uL (0.7-4.9); Basophils % 0.5 % (0-1.3); Hematocrit 40.5 % (39.6-49.0); Lymphocytes % 5.8 % (15.3-44.8); MPV 7.5 fL (7.6-11.3); RBC Red Blood Cell Count 4.64 M/uL (4.33-5.43)
[2021-01-13 05:23] LABS: BUN Blood Urea Nitrogen 21 mg/dL (7-18); Bicarbonate 29 mmol/L (21-32); Glucose Level 218 mg/dL (74-106); Potassium 4.1 mmol/L (3.5-5.1); Sodium Level 138 mmol/L (136-145)
[2021-01-13 05:54] LABS: C-Reactive Protein 24.6 mg/L (<3.00); Ferritin 199.8 ng/mL (26-388)
[2021-01-13] MEDS: INSULIN 70/30 100 UNITS/ML SQ SCH ×2 (07:36→17:04)
[2021-01-13] MEDS: VITAMIN D 1000 UNIT TAB PO SCH (07:37)
[2021-01-13] MEDS: ZINC SULFATE 220 MG CAP PO SCH (07:37)
[2021-01-13] MEDS: THIAMINE HCL 100 MG TABLET PO SCH ×2 (07:37→21:38)
[2021-01-13] MEDS: SPIRONOLACTONE 25 MG TABLET PO SCH (07:38)
[2021-01-13] MEDS: BENZONATATE 100 MG CAP PO PRN (07:38)
[2021-01-13] MEDS: FAMOTIDINE 20 MG TAB PO SCH (07:38)
[2021-01-13] MEDS: ASCORBIC ACID 500 MG TABLET PO SCH ×3 (07:38→21:39)
[2021-01-13] MEDS: SITAGLIPTIN PHOS 100 MG TAB PO SCH (07:40)
[2021-01-13] MEDS: INSULIN -REGULAR HUMAN 50 UNIT/0.5 ML ML SQ SCH ×4 (07:42→21:37)
[2021-01-13] MEDS: METHYLPREDNISOLONE 125 MG INJ IV SCH ×2 (07:43→21:38)
[2021-01-13] MEDS: METFORMIN HCL 500 MG TAB PO SCH ×2 (08:21→17:07)
[2021-01-13] MEDS: APIXABAN 5 MG TABLET PO SCH ×2 (08:22→21:38)
--- NOTE | 2021-01-13 10:28 | P.PN ---
Subjective Date of Service: 01/13/21 Chief Complaint: Respiratory failure from orr virus Patient no major change from yesterday. Patient is on high-flow oxygen. He has no new complain. Physical Examination - Vital Signs Temperature: 98.7 F Blood Pressure: 113/91 Pulse: 94 Respirations: 31 Pulse Ox (%): 82 - Physical Exam General: Alert, In no apparent distress Neck: JVD not distended Cardiovascular: No edema, Regular rate/rhythm Gastrointestinal: Soft and benign, Non-distended Musculoskeletal: No swelling Integumentary: No rashes Neurological: Other (No focal motor deficit) - Studies Microbiology Data (last 24 hrs): 01/07/21 17:53 Blood - Blood Aerobic Blood Culture - Final No growth in 5 days. 01/07/21 17:53 Blood - Blood Anaerobic Blood Culture - Final No growth in 5 days. 01/07/21 17:57 Blood - Blood Aerobic Blood Culture - Final No growth in 5 days. 01/07/21 17:57 Blood - Blood Anaerobic Blood Culture - Final No growth in 5 days. Assessment And Plan - Current Problems (Diagnosis) (1) Acute respiratory failure with hypoxia Current Visit: Yes Status: Acute (2) Pneumonia due to COVID-19 virus Current Visit: Yes Status: Acute (3) Type 2 diabetes mellitus Current Visit: Yes Status: Acute - Plan Continue BiPAP therapy, and high-flow oxygen as needed Continue High-dose IV steroid. Vitamin-D, vitamin-C and zinc supplementation. Status post Ivermectin. Status post convalescent plasma. Aggressive insulin sliding scale for glucose management. Titrate Novolin 70/30. Dose increased to 45 units b.i.d. to treat persistent hyperglycemia. Pulmonary is following.
--- NOTE | 2021-01-13 11:05 | P.PN ---
Subjective Date of Service: 01/13/21 Chief Complaint: Respiratory failure from orr virus No change in patient's condition oxygen requirements are still very high Review of Systems General: Weakness Respiratory: Shortness of Breath Physical Examination - Vital Signs Temperature: 98.7 F Blood Pressure: 113/91 Pulse: 94 Respirations: 31 Pulse Ox (%): 82 - Studies Microbiology Data (last 24 hrs): 01/07/21 17:53 Blood - Blood Aerobic Blood Culture - Final No growth in 5 days. 01/07/21 17:53 Blood - Blood Anaerobic Blood Culture - Final No growth in 5 days. 01/07/21 17:57 Blood - Blood Aerobic Blood Culture - Final No growth in 5 days. 01/07/21 17:57 Blood - Blood Anaerobic Blood Culture - Final No growth in 5 days. Assessment & Plan - Problems (Diagnosis) (1) COVID-19 Current Visit: Yes Status: Acute Plan: Respiratory failure continue with present therapy labs reviewed reduce dose of Solu-Medrol to b.i.d. blood sugar elevated insulin dose has been increased still requiring high level of support repeat dose of ivermectin he only go 1 dose
[2021-01-13] MEDS ORDERED: IVERMECTIN 3 MG TABLET PO ONE (12:00)
[2021-01-13] MEDS: MELATONIN 5 MG TABLET PO SCH (21:39)
[2021-01-14 05:38] LABS: C-Reactive Protein 24.2 mg/L (<3.00); Ferritin 232.5 ng/mL (26-388)
[2021-01-14] MEDS: INSULIN -REGULAR HUMAN 50 UNIT/0.5 ML ML SQ SCH ×4 (10:09→20:21)
[2021-01-14] MEDS: METFORMIN HCL 500 MG TAB PO SCH ×2 (10:10→16:48)
[2021-01-14] MEDS: FAMOTIDINE 20 MG TAB PO SCH (10:10)
[2021-01-14] MEDS: THIAMINE HCL 100 MG TABLET PO SCH ×2 (10:10→20:20)
[2021-01-14] MEDS: INSULIN 70/30 100 UNITS/ML SQ SCH ×2 (10:10→16:43)
[2021-01-14] MEDS: ZINC SULFATE 220 MG CAP PO SCH (10:10)
[2021-01-14] MEDS: SITAGLIPTIN PHOS 100 MG TAB PO SCH (10:11)
[2021-01-14] MEDS: METHYLPREDNISOLONE 125 MG INJ IV SCH (10:11)
[2021-01-14] MEDS: VITAMIN D 1000 UNIT TAB PO SCH (10:11)
[2021-01-14] MEDS: ASCORBIC ACID 500 MG TABLET PO SCH ×3 (10:11→20:21)
[2021-01-14] MEDS: APIXABAN 5 MG TABLET PO SCH ×2 (10:12→20:20)
[2021-01-14] MEDS: SPIRONOLACTONE 25 MG TABLET PO SCH (10:12)
--- NOTE | 2021-01-14 11:48 | P.PN ---
Subjective Date of Service: 01/14/21 Chief Complaint: Respiratory failure from orr virus Patient no major change from yesterday. Patient is on high-flow oxygen. FiO2 weaned down to 80% today. He has no new complain. Physical Examination - Vital Signs Temperature: 98.2 F Blood Pressure: 116/71 Pulse: 59 Respirations: 31 Pulse Ox (%): 92 - Physical Exam General: Alert, In no apparent distress Neck: JVD not distended Respiratory: Other (Nonlabored breathing) Cardiovascular: Regular rate/rhythm Gastrointestinal: Soft and benign, Non-distended Musculoskeletal: No swelling Integumentary: No rashes Neurological: Other (No focal motor deficit) Assessment And Plan - Current Problems (Diagnosis) (1) Acute respiratory failure with hypoxia Current Visit: Yes Status: Acute (2) Pneumonia due to COVID-19 virus Current Visit: Yes Status: Acute (3) Type 2 diabetes mellitus Current Visit: Yes Status: Acute - Plan Continue BiPAP therapy, and high-flow oxygen as needed Continue High-dose IV steroid. Vitamin-D, vitamin-C and zinc supplementation. Status post Ivermectin. Status post convalescent plasma. Aggressive insulin sliding scale for glucose management. Continue current dose Novolin 70/30. Pulmonary is following.
--- NOTE | 2021-01-14 15:47 | P.PN ---
Subjective Date of Service: 01/14/21 Chief Complaint: Respiratory failure from orr virus No change. Still requiring high concentration of FIo2 . BS high Physical Examination - Vital Signs Temperature: 97.5 F Blood Pressure: 130/74 Pulse: 69 Respirations: 89 Pulse Ox (%): 89 Assessment & Plan - Problems (Diagnosis) (1) COVID-19 Current Visit: Yes Status: Acute Plan: Respiratory failure continue with present therapy labs reviewed reduce dose of Solu-Medrol to b.i.d. blood sugar elevated insulin dose has been increased still requiring high level of support repeat dose of ivermectin he only go 1 dose. Meds reviewed . No change in therapy for now. Titrate Fio2 88-90%
[2021-01-14] MEDS: MELATONIN 5 MG TABLET PO SCH (20:20)
[2021-01-14] MEDS: METHYLPREDNISOLONE 40 MG INJ IV SCH (20:20)
[2021-01-15 05:23] LABS: Absolute Lymphocytes (CBC) 0.7 K/uL (0.7-4.9); Basophils % 0.1 % (0-1.3); Hematocrit 39.4 % (39.6-49.0); Lymphocytes % 5.4 % (15.3-44.8); MPV 7.5 fL (7.6-11.3); RBC Red Blood Cell Count 4.57 M/uL (4.33-5.43)
[2021-01-15 05:45] LABS: BUN Blood Urea Nitrogen 17 mg/dL (7-18); Bicarbonate 29 mmol/L (21-32); Ferritin 218.6 ng/mL (26-388); Glucose Level 175 mg/dL (74-106); Potassium 4.2 mmol/L (3.5-5.1); Sodium Level 136 mmol/L (136-145)
[2021-01-15 05:53] LABS: Blood Morphology Comment NOT SEEN (NOT SEEN)
[2021-01-15 05:54] LABS: Platelet Estimate ADEQ
[2021-01-15] MEDS: INSULIN 70/30 100 UNITS/ML SQ SCH ×3 (07:30→17:34)
[2021-01-15] MEDS: SPIRONOLACTONE 25 MG TABLET PO SCH (09:00)
[2021-01-15] MEDS: VITAMIN D 1000 UNIT TAB PO SCH (09:09)
[2021-01-15] MEDS: METHYLPREDNISOLONE 40 MG INJ IV SCH ×2 (09:09→19:52)
[2021-01-15] MEDS: INSULIN -REGULAR HUMAN 50 UNIT/0.5 ML ML SQ SCH ×4 (09:09→19:54)
[2021-01-15] MEDS: ASCORBIC ACID 500 MG TABLET PO SCH ×3 (09:10→19:53)
[2021-01-15] MEDS: APIXABAN 5 MG TABLET PO SCH ×2 (09:10→19:53)
[2021-01-15] MEDS: SITAGLIPTIN PHOS 100 MG TAB PO SCH (09:11)
[2021-01-15] MEDS: THIAMINE HCL 100 MG TABLET PO SCH ×2 (09:11→19:53)
[2021-01-15] MEDS: FAMOTIDINE 20 MG TAB PO SCH (09:11)
[2021-01-15] MEDS: ZINC SULFATE 220 MG CAP PO SCH (09:11)
[2021-01-15] MEDS: METFORMIN HCL 500 MG TAB PO SCH ×2 (09:11→17:34)
--- NOTE | 2021-01-15 11:54 | P.PN ---
Subjective Date of Service: 01/15/21 Chief Complaint: Respiratory failure from orr virus Subjective: No new changes (feels a little better today. still on HFNC FIO2 70%, labs improving, tolerating diet) Physical Examination - Vital Signs Temperature: 97.0 F Blood Pressure: 102/65 Pulse: 83 Respirations: 37 Pulse Ox (%): 85 Assessment & Plan Physician Review Additional Text: Physical Exam Gen: NAD HEENT: sclera anicteric, normal conjunctiva Pulm: bibasilar crackles/rales bibasilar, on HFNC CV: Regular rate/rhythm, no edema Abd: Soft and benign, Non-distended, non-tender Msk: No swelling, No tenderness Problem List: Acute respiratory failure with hypoxia Pneumonia due to COVID-19 virus Type 2 diabetes mellitus Continue BiPAP /HFNC as tolerated/needed. Wean as possible Continue IV solumedrol - 40mg BID. Vitamin-D, vitamin-C and zinc supplementation. s/p ivermectin, s/p conv plasma glc in 300s yesterday, solumedrol decreased Aggressive insulin sliding scale for glucose management. increased novolin 70/30 to 55 u BID, was 45u BID. A1c: 11.8 Pulmonary is following. VTE: Eliquis Code: full Dispo: anticipate hospitalization > 2days, will need home O2 Time Spent Managing Pts Care (In Minutes): 35
[2021-01-15] MEDS ORDERED: ALBUTEROL 2.5 MG/3 ML NEB SOL NEB PRN (19:00)
[2021-01-15] MEDS: BENZONATATE 100 MG CAP PO PRN (19:52)
[2021-01-15] MEDS: MELATONIN 5 MG TABLET PO SCH (19:53)
[2021-01-16 05:34] LABS: BUN Blood Urea Nitrogen 18 mg/dL (7-18); Bicarbonate 30 mmol/L (21-32); Ferritin 217.4 ng/mL (26-388); Glucose Level 121 mg/dL (74-106); Magnesium 2.2 mg/dL (1.8-2.4); Potassium 3.9 mmol/L (3.5-5.1); Sodium Level 137 mmol/L (136-145)
[2021-01-16] MEDS: INSULIN -REGULAR HUMAN 50 UNIT/0.5 ML ML SQ SCH ×4 (07:30→20:59)
--- NOTE | 2021-01-16 08:03 | RAD REPORT ---
EXAM DESCRIPTION: Saroj Single View01/16/2021 6:59 am CLINICAL HISTORY: Chest pain COMPARISON: December 2020 FINDINGS: Worsening in extensive right and mild improvement in [id number] left pulmonary op acities consistent with pneumonia Heart is probably normal size
[2021-01-16] MEDS: THIAMINE HCL 100 MG TABLET PO SCH ×2 (08:32→20:57)
[2021-01-16] MEDS: INSULIN 70/30 100 UNITS/ML SQ SCH ×2 (08:32→16:30)
[2021-01-16] MEDS: METHYLPREDNISOLONE 40 MG INJ IV SCH ×2 (08:33→20:57)
[2021-01-16] MEDS: SPIRONOLACTONE 25 MG TABLET PO SCH (08:33)
[2021-01-16] MEDS: ASCORBIC ACID 500 MG TABLET PO SCH ×3 (08:34→20:57)
[2021-01-16] MEDS: FAMOTIDINE 20 MG TAB PO SCH (08:34)
[2021-01-16] MEDS: ZINC SULFATE 220 MG CAP PO SCH (08:34)
[2021-01-16] MEDS: METFORMIN HCL 500 MG TAB PO SCH ×2 (08:34→16:30)
[2021-01-16] MEDS: VITAMIN D 1000 UNIT TAB PO SCH (08:34)
[2021-01-16] MEDS: SITAGLIPTIN PHOS 100 MG TAB PO SCH (08:35)
[2021-01-16] MEDS: APIXABAN 2.5 MG TABLET PO SCH ×2 (08:35→20:57)
--- NOTE | 2021-01-16 12:59 | P.PN ---
Subjective Date of Service: 01/15/21 Chief Complaint: Respiratory failure from orr virus No change still requiring high concentrations of oxygen Review of Systems General: Weakness Respiratory: Shortness of Breath Physical Examination - Vital Signs Temperature: 97.3 F Blood Pressure: 119/79 Pulse: 100 Respirations: 31 Pulse Ox (%): 92 Assessment & Plan - Problems (Diagnosis) (1) COVID-19 Current Visit: Yes Status: Acute Plan: Respiratory failure oxygen requirements may be declining labs reviewed blood sugars a little elevated reduce dose of Solu-Medrol to b.i.d. blood sugars elevated
--- NOTE | 2021-01-16 15:52 | P.PN ---
Subjective Date of Service: 01/16/21 Chief Complaint: Respiratory failure from orr virus Subjective: No new changes (No significant changes. Patient feels about the same, maybe a little bit better. Glucose better controlled) Review of Systems 10-point ROS is otherwise unremarkable Physical Examination - Vital Signs Temperature: 97.3 F Blood Pressure: 101/68 Pulse: 96 Respirations: 30 Pulse Ox (%): 91 Assessment & Plan Physician Review Additional Text: Physical Exam Gen: NAD HEENT: sclera anicteric, normal conjunctiva Pulm: bibasilar crackles/rales bibasilar, on HFNC CV: Regular rate/rhythm, no edema Abd: Soft and benign, Non-distended, non-tender Msk: No swelling, No tenderness Problem List: Acute respiratory failure with hypoxia Pneumonia due to COVID-19 virus Type 2 diabetes mellitus Continue BiPAP /HFNC as tolerated/needed. Wean as possible Continue IV solumedrol - 40mg BID. Vitamin-D, vitamin-C and zinc supplementation. s/p ivermectin, s/p conv plasma glc in the low 100s today, solumedrol decreased yesterday. Will decrease dose of insulin slightly to avoid hypoglycemia Aggressive insulin sliding scale for glucose management. A1c: 11.8 Pulmonology consulted VTE: Eliquis Code: full Dispo: anticipate hospitalization > 2days, will need home O2 Time Spent Managing Pts Care (In Minutes): 35
[2021-01-16] MEDS: MELATONIN 5 MG TABLET PO SCH (20:57)
[2021-01-16] MEDS: BENZONATATE 100 MG CAP PO PRN (21:01)
[2021-01-17 04:57] LABS: Absolute Lymphocytes (CBC) 0.6 K/uL (0.7-4.9); Basophils % 0.3 % (0-1.3); Hematocrit 41.8 % (39.6-49.0); Lymphocytes % 4.7 % (15.3-44.8); MPV 7.6 fL (7.6-11.3); RBC Red Blood Cell Count 4.88 M/uL (4.33-5.43)
[2021-01-17 05:12] LABS: BUN Blood Urea Nitrogen 20 mg/dL (7-18); Bicarbonate 28 mmol/L (21-32); Ferritin 229.4 ng/mL (26-388); Glucose Level 188 mg/dL (74-106); Magnesium 2.2 mg/dL (1.8-2.4); Potassium 4.4 mmol/L (3.5-5.1); Sodium Level 136 mmol/L (136-145)
[2021-01-17] MEDS: BENZONATATE 100 MG CAP PO PRN ×2 (08:00→16:40)
[2021-01-17] MEDS: VITAMIN D 1000 UNIT TAB PO SCH (08:38)
[2021-01-17] MEDS: FAMOTIDINE 20 MG TAB PO SCH (08:39)
[2021-01-17] MEDS: APIXABAN 2.5 MG TABLET PO SCH ×2 (08:39→20:06)
[2021-01-17] MEDS: METFORMIN HCL 500 MG TAB PO SCH ×2 (08:39→16:30)
[2021-01-17] MEDS: THIAMINE HCL 100 MG TABLET PO SCH ×2 (08:39→20:06)
[2021-01-17] MEDS: SITAGLIPTIN PHOS 100 MG TAB PO SCH (08:39)
[2021-01-17] MEDS: ZINC SULFATE 220 MG CAP PO SCH (08:39)
[2021-01-17] MEDS: INSULIN 70/30 100 UNITS/ML SQ SCH ×2 (08:40→16:30)
[2021-01-17] MEDS: ASCORBIC ACID 500 MG TABLET PO SCH ×3 (08:40→20:06)
[2021-01-17] MEDS: INSULIN -REGULAR HUMAN 50 UNIT/0.5 ML ML SQ SCH ×4 (08:40→20:05)
[2021-01-17] MEDS: METHYLPREDNISOLONE 40 MG INJ IV SCH ×2 (08:41→20:05)
--- NOTE | 2021-01-17 17:11 | P.PN ---
Subjective Date of Service: 01/17/21 Chief Complaint: Respiratory failure from orr virus Subjective: No new changes (No significant new changes, patient states he does feel a little better today, still requiring high levels of oxygen supplementation) Review of Systems 10-point ROS is otherwise unremarkable Physical Examination - Vital Signs Temperature: 97.7 F Blood Pressure: 108/67 Pulse: 98 Respirations: 36 Pulse Ox (%): 87 Assessment & Plan Physician Review Additional Text: Physical Exam Gen: NAD HEENT: sclera anicteric, normal conjunctiva Pulm: nonlabored respirations on HFNC CV: Regular rate/rhythm, no edema Abd: Soft and benign, Non-distended, non-tender Msk: No swelling, No tenderness Problem List: Acute respiratory failure with hypoxia Pneumonia due to COVID-19 virus Type 2 diabetes mellitus Continue BiPAP /HFNC as tolerated/needed. Wean as possible Continue IV solumedrol - 40mg BID. Vitamin-D, vitamin-C and zinc supplementation. s/p ivermectin, s/p conv plasma monitor glc closely, titrate insulin as needed Aggressive insulin sliding scale for glucose management. A1c: 11.8 Pulm following VTE: Eliquis Code: full Dispo: anticipate hospitalization > 2days, will need home O2 Time Spent Managing Pts Care (In Minutes): 35
[2021-01-17] MEDS: MELATONIN 5 MG TABLET PO SCH (20:06)
[2021-01-18 05:47] LABS: Absolute Lymphocytes (CBC) 0.8 K/uL (0.7-4.9); Basophils % 0.4 % (0-1.3); Hematocrit 42.3 % (39.6-49.0); Lymphocytes % 5.2 % (15.3-44.8); MPV 7.7 fL (7.6-11.3); RBC Red Blood Cell Count 4.88 M/uL (4.33-5.43)
[2021-01-18 06:01] LABS: BUN Blood Urea Nitrogen 19 mg/dL (7-18); Bicarbonate 29 mmol/L (21-32); C-Reactive Protein 8.92 mg/L (<3.00); Ferritin 217.3 ng/mL (26-388); Glucose Level 128 mg/dL (74-106); Potassium 4.2 mmol/L (3.5-5.1); Sodium Level 136 mmol/L (136-145)
[2021-01-18] MEDS ORDERED: IPRATROPIUM BROM 0.5MG/2.5ML NEB PRN (07:08)
[2021-01-18] MEDS: INSULIN 70/30 100 UNITS/ML SQ SCH ×2 (07:30→16:48)
[2021-01-18] MEDS: INSULIN -REGULAR HUMAN 50 UNIT/0.5 ML ML SQ SCH ×4 (07:30→20:42)
[2021-01-18] MEDS: ASCORBIC ACID 500 MG TABLET PO SCH ×3 (08:12→20:44)
[2021-01-18] MEDS: VITAMIN D 1000 UNIT TAB PO SCH (08:12)
[2021-01-18] MEDS: SITAGLIPTIN PHOS 100 MG TAB PO SCH (08:12)
[2021-01-18] MEDS: THIAMINE HCL 100 MG TABLET PO SCH ×2 (08:12→20:43)
[2021-01-18] MEDS: METFORMIN HCL 500 MG TAB PO SCH ×2 (08:12→16:49)
[2021-01-18] MEDS: ZINC SULFATE 220 MG CAP PO SCH (08:13)
[2021-01-18] MEDS: FAMOTIDINE 20 MG TAB PO SCH (08:13)
[2021-01-18] MEDS: METHYLPREDNISOLONE 40 MG INJ IV SCH ×2 (08:13→20:43)
[2021-01-18 08:22] LABS: White Blood Cell Scan OK (OK)
[2021-01-18 08:23] LABS: Blood Morphology Comment NOT SEEN (NOT SEEN); Platelet Estimate ADEQ
[2021-01-18] MEDS: APIXABAN 2.5 MG TABLET PO SCH (09:02)
--- NOTE | 2021-01-18 12:14 | P.PN ---
Subjective Date of Service: 01/18/21 Chief Complaint: Respiratory failure from orr virus Improving feeling better oxygen requirements still high Review of Systems General: Weakness Respiratory: Shortness of Breath Physical Examination - Vital Signs Temperature: 97.8 F Blood Pressure: 106/73 Pulse: 89 Respirations: 34 Pulse Ox (%): 92 Assessment & Plan - Problems (Diagnosis) (1) COVID-19 Current Visit: Yes Status: Acute Plan: Respiratory failure continue titrate his oxygen down labs reviewed no change in treatment
[2021-01-18] MEDS: BENZONATATE 100 MG CAP PO PRN (12:46)
[2021-01-18] MEDS: NYSTATIN 500,000 UNIT/5 ML UDC PO SCH ×3 (13:58→20:46)
--- NOTE | 2021-01-18 15:14 | P.PN ---
Subjective Date of Service: 01/18/21 Chief Complaint: Respiratory failure from orr virus Subjective: No new changes (doing ok, sitting up in chair, slight tachypnea, patient states he feels well) Review of Systems 10-point ROS is otherwise unremarkable Physical Examination - Vital Signs Temperature: 97.8 F Blood Pressure: 111/70 Pulse: 103 Respirations: 41 Pulse Ox (%): 96 Assessment & Plan Physician Review Additional Text: Physical Exam Gen: NAD HEENT: sclera anicteric, normal conjunctiva Pulm: nonlabored respirations on HFNC CV: Regular rate/rhythm, no edema Abd: Soft and benign, Non-distended, non-tender Ext: No swelling, No tenderness Problem List: Acute respiratory failure with hypoxia Pneumonia due to COVID-19 virus Type 2 diabetes mellitus, previously [id number] Continue BiPAP /HFNC as tolerated/needed. Wean as possible Continue IV solumedrol - 40mg BID. Vitamin-D, vitamin-C and zinc supplementation. s/p ivermectin, s/p conv plasma monitor glc closely, titrate insulin as needed Aggressive insulin sliding scale for glucose management. A1c: 11.8 Pulm following VTE: Eliquis Code: full Dispo: anticipate hospitalization > 2days, will need home O2 Time Spent Managing Pts Care (In Minutes): 40
[2021-01-18] MEDS: APIXABAN 5 MG TABLET PO SCH (20:43)
[2021-01-18] MEDS: MELATONIN 5 MG TABLET PO SCH (20:43)
[2021-01-19] MEDS: BENZONATATE 100 MG CAP PO PRN (04:00)
[2021-01-19 05:23] LABS: C-Reactive Protein 7.87 mg/L (<3.00); Ferritin 227.6 ng/mL (26-388)
[2021-01-19] MEDS: INSULIN -REGULAR HUMAN 50 UNIT/0.5 ML ML SQ SCH ×4 (07:30→20:11)
[2021-01-19] MEDS: INSULIN 70/30 100 UNITS/ML SQ SCH ×2 (08:18→17:32)
[2021-01-19] MEDS: VITAMIN D 1000 UNIT TAB PO SCH (08:19)
[2021-01-19] MEDS: SITAGLIPTIN PHOS 100 MG TAB PO SCH (08:19)
[2021-01-19] MEDS: ASCORBIC ACID 500 MG TABLET PO SCH ×3 (08:20→20:11)
[2021-01-19] MEDS: FAMOTIDINE 20 MG TAB PO SCH (08:20)
[2021-01-19] MEDS: METHYLPREDNISOLONE 40 MG INJ IV SCH ×2 (08:20→20:10)
[2021-01-19] MEDS: ZINC SULFATE 220 MG CAP PO SCH (08:20)
[2021-01-19] MEDS: APIXABAN 5 MG TABLET PO SCH ×2 (08:20→20:10)
[2021-01-19] MEDS: METFORMIN HCL 500 MG TAB PO SCH ×2 (08:20→17:31)
[2021-01-19] MEDS: NYSTATIN 500,000 UNIT/5 ML UDC PO SCH ×4 (08:21→20:10)
--- NOTE | 2021-01-19 09:58 | P.PN ---
Subjective Date of Service: 01/19/21 (Hospitalist) Chief Complaint: Respiratory failure from orr virus No change patient is still requiring high concentrations of oxygen alternating with BiPAP eating and drinking Review of Systems General: Weakness Respiratory: Shortness of Breath Physical Examination - Vital Signs Temperature: 97.7 F Blood Pressure: 127/80 Pulse: 69 Respirations: 33 Pulse Ox (%): 90 Assessment & Plan - Problems (Diagnosis) (1) COVID-19 Current Visit: Yes Status: Acute Plan: No change in patient's condition he is alert oriented responsive BiPAP alternating with high-flow will order some labs for tomorrow continue to wean down on the oxygen blood sugars elevated increase in PH no change in current medications
[2021-01-19] MEDS: THIAMINE HCL 100 MG TABLET PO SCH ×2 (10:32→20:10)
[2021-01-19] MEDS: MELATONIN 5 MG TABLET PO SCH (20:10)
[2021-01-20 05:56] LABS: Hematocrit 42.7 % (39.6-49.0); MPV 7.1 fL (7.6-11.3); RBC Red Blood Cell Count 4.94 M/uL (4.33-5.43)
[2021-01-20 06:18] LABS: BUN Blood Urea Nitrogen 15 mg/dL (7-18); Bicarbonate 30 mmol/L (21-32); C-Reactive Protein 6.54 mg/L (<3.00); Ferritin 221.1 ng/mL (26-388); Glucose Level 69 mg/dL (74-106); Potassium 3.8 mmol/L (3.5-5.1); Sodium Level 138 mmol/L (136-145)
[2021-01-20] MEDS: INSULIN -REGULAR HUMAN 50 UNIT/0.5 ML ML SQ SCH ×4 (07:30→19:56)
--- NOTE | 2021-01-20 07:45 | RAD REPORT ---
EXAM DESCRIPTION: RAD - Chest Single View - 01/20/2021 7:25 am CLINICAL HISTORY: Respiratory failure COMPARISON: Portable January 16 TECHNIQUE: AP portable chest image was obtained 01/20/2021 7:25 am . FINDINGS: Lung volumes remain low. Extensive airspace opacification present throughout both lung fie lds. Right lung field opacification has improved. Left lung field opacification shows no improvement. Trachea remains in the midline. Cardiac silhouette is prominent but unchanged. No measurable pleural effusion and no pneumothorax. IMPRESSION: Partial clearing of dense right lung field airspace opacification. No improvement on the left.
[2021-01-20] MEDS: NYSTATIN 500,000 UNIT/5 ML UDC PO SCH ×4 (07:51→19:56)
[2021-01-20] MEDS: APIXABAN 5 MG TABLET PO SCH ×2 (08:07→19:56)
[2021-01-20] MEDS: VITAMIN D 1000 UNIT TAB PO SCH (08:07)
[2021-01-20] MEDS: ASCORBIC ACID 500 MG TABLET PO SCH ×3 (08:07→19:55)
[2021-01-20] MEDS: METFORMIN HCL 500 MG TAB PO SCH ×2 (08:08→17:40)
[2021-01-20] MEDS: SITAGLIPTIN PHOS 100 MG TAB PO SCH (08:08)
[2021-01-20] MEDS: ZINC SULFATE 220 MG CAP PO SCH (08:08)
[2021-01-20] MEDS: FAMOTIDINE 20 MG TAB PO SCH (08:09)
[2021-01-20] MEDS: METHYLPREDNISOLONE 40 MG INJ IV SCH ×2 (08:09→19:56)
[2021-01-20] MEDS: INSULIN 70/30 100 UNITS/ML SQ SCH ×2 (08:09→17:40)
[2021-01-20] MEDS: THIAMINE HCL 100 MG TABLET PO SCH ×2 (08:09→19:56)
--- NOTE | 2021-01-20 09:14 | P.PN ---
Subjective Date of Service: 01/20/21 (Hospitalist) Chief Complaint: Respiratory failure from orr virus Patient is still short of breath improving no change Review of Systems General: Weakness Respiratory: Shortness of Breath Physical Examination - Vital Signs Temperature: 97.8 F Blood Pressure: 124/81 Pulse: 85 Respirations: 18 Pulse Ox (%): 98 - Physical Exam General: Alert, Oriented x3 Respiratory: Clear to auscultation bilaterally, Diminished Cardiovascular: No edema, Regular rate/rhythm Assessment & Plan - Problems (Diagnosis) (1) COVID-19 Current Visit: Yes Status: Acute Plan: No change in patient's condition continued titrate his FiO2 down vital signs stable blood sugars controlled will reduce the dose of insulin labs reviewed he has an FiO2 80% maintain sat on 88-90%
[2021-01-20] MEDS: BENZONATATE 100 MG CAP PO PRN (13:30)
[2021-01-20] MEDS: MELATONIN 5 MG TABLET PO SCH (19:55)
[2021-01-21 06:20] LABS: C-Reactive Protein 8.85 mg/L (<3.00); Ferritin 236.5 ng/mL (26-388)
[2021-01-21] MEDS: INSULIN 70/30 100 UNITS/ML SQ SCH ×4 (07:30→18:16)
[2021-01-21] MEDS: METHYLPREDNISOLONE 40 MG INJ IV SCH ×2 (08:31→20:22)
[2021-01-21] MEDS: METFORMIN HCL 500 MG TAB PO SCH ×2 (08:31→18:15)
[2021-01-21] MEDS: NYSTATIN 500,000 UNIT/5 ML UDC PO SCH ×4 (08:31→20:24)
[2021-01-21] MEDS: BENZONATATE 100 MG CAP PO PRN (08:32)
[2021-01-21] MEDS: ZINC SULFATE 220 MG CAP PO SCH (08:32)
[2021-01-21] MEDS: VITAMIN D 1000 UNIT TAB PO SCH (08:33)
[2021-01-21] MEDS: ASCORBIC ACID 500 MG TABLET PO SCH ×3 (08:33→20:24)
[2021-01-21] MEDS: APIXABAN 5 MG TABLET PO SCH ×2 (08:33→20:24)
[2021-01-21] MEDS: FAMOTIDINE 20 MG TAB PO SCH (08:33)
[2021-01-21] MEDS: SITAGLIPTIN PHOS 100 MG TAB PO SCH (08:33)
[2021-01-21] MEDS: INSULIN -REGULAR HUMAN 50 UNIT/0.5 ML ML SQ SCH ×4 (08:34→20:20)
[2021-01-21] MEDS: THIAMINE HCL 100 MG TABLET PO SCH ×2 (09:56→20:23)
--- NOTE | 2021-01-21 12:57 | P.PN ---
Subjective Date of Service: 01/21/21 Chief Complaint: Respiratory failure from orr virus Subjective: No new changes (Feeling about the same, without complaints this morning, tolerating diet. Sitting up in chair at bedside throughout the day. wears bipap at night, HFNC during day) Review of Systems 10-point ROS is otherwise unremarkable Physical Examination - Vital Signs Temperature: 97.7 F Blood Pressure: 116/70 Pulse: 105 Respirations: 38 Pulse Ox (%): 87 Assessment & Plan Physician Review Additional Text: Physical Exam Gen: NAD HEENT: sclera anicteric, normal conjunctiva Pulm: nonlabored respirations on HFNC CV: Regular rate/rhythm, no edema Abd: Soft and benign, Non-distended, non-tender Ext: No swelling, No tenderness Problem List: Acute respiratory failure with hypoxia Pneumonia due to COVID-19 virus Type 2 diabetes mellitus, previously [id number] Continue BiPAP /HFNC as tolerated/needed. Wean as possible Continue IV solumedrol - 40mg BID. Vitamin-D, vitamin-C and zinc supplementation. s/p ivermectin, s/p conv plasma monitor glc closely, titrate insulin as needed Aggressive insulin sliding scale for glucose management. A1c: 11.8 Pulm following prolonged course, slow to improve VTE: Eliquis Code: full Dispo: anticipate hospitalization > 2days, will need home O2 Time Spent Managing Pts Care (In Minutes): 35
[2021-01-21] MEDS: MELATONIN 5 MG TABLET PO SCH (20:24)
[2021-01-22 05:19] LABS: Absolute Lymphocytes (CBC) 0.9 K/uL (0.7-4.9); Basophils % 0.6 % (0-1.3); MPV 7.4 fL (7.6-11.3)
[2021-01-22 05:46] LABS: BUN Blood Urea Nitrogen 15 mg/dL (7-18); Bicarbonate 29 mmol/L (21-32); Ferritin 262.8 ng/mL (26-388); Glucose Level 203 mg/dL (74-106); Magnesium 2.4 mg/dL (1.8-2.4); Potassium 4.2 mmol/L (3.5-5.1); Sodium Level 137 mmol/L (136-145)
[2021-01-22 06:50] LABS: Blood Morphology Comment NOT SEEN (NOT SEEN); Platelet Estimate ADEQ
[2021-01-22] MEDS: INSULIN -REGULAR HUMAN 50 UNIT/0.5 ML ML SQ SCH ×4 (07:30→22:39)
[2021-01-22] MEDS: INSULIN 70/30 100 UNITS/ML SQ SCH ×2 (08:25→17:23)
[2021-01-22] MEDS: FAMOTIDINE 20 MG TAB PO SCH (08:26)
[2021-01-22] MEDS: APIXABAN 5 MG TABLET PO SCH ×2 (08:26→22:34)
[2021-01-22] MEDS: THIAMINE HCL 100 MG TABLET PO SCH ×2 (08:26→22:40)
[2021-01-22] MEDS: SITAGLIPTIN PHOS 100 MG TAB PO SCH (08:26)
[2021-01-22] MEDS: METHYLPREDNISOLONE 40 MG INJ IV SCH ×2 (08:26→22:40)
[2021-01-22] MEDS: ASCORBIC ACID 500 MG TABLET PO SCH ×3 (08:26→22:41)
[2021-01-22] MEDS: METFORMIN HCL 500 MG TAB PO SCH ×2 (08:26→17:23)
[2021-01-22] MEDS: VITAMIN D 1000 UNIT TAB PO SCH (08:26)
--- NOTE | 2021-01-22 08:26 | P.PN ---
Subjective Date of Service: 01/22/21 Chief Complaint: Respiratory failure from orr virus Slowly improving no change oxygen requirements are declining he feels better Review of Systems General: Weakness Respiratory: Shortness of Breath Physical Examination - Vital Signs Temperature: 97.6 F Blood Pressure: 126/84 Pulse: 75 Respirations: 33 Pulse Ox (%): 91 Assessment & Plan - Problems (Diagnosis) (1) COVID-19 Current Visit: Yes Status: Acute Plan: Respiratory failure labs reviewed continue to wean on oxygen subjectively improving white count declining blood sugar is reasonably controlled
[2021-01-22] MEDS: ZINC SULFATE 220 MG CAP PO SCH (08:27)
[2021-01-22] MEDS: NYSTATIN 500,000 UNIT/5 ML UDC PO SCH ×4 (08:27→22:34)
[2021-01-22] MEDS: BENZONATATE 100 MG CAP PO PRN ×2 (08:39→17:23)
--- NOTE | 2021-01-22 13:24 | P.PN ---
Subjective Date of Service: 01/22/21 Chief Complaint: Respiratory failure from orr virus No changes from yesterday Patient is on high-flow oxygen. He has no new complain. Physical Examination - Vital Signs Temperature: 97.6 F Blood Pressure: 136/90 Pulse: 98 Respirations: 33 Pulse Ox (%): 90 - Physical Exam General: Alert, In no apparent distress Neck: JVD not distended Respiratory: Other (Nonlabored breathing) Cardiovascular: No edema, Regular rate/rhythm Gastrointestinal: Non-distended Musculoskeletal: No swelling Integumentary: No rashes Neurological: Other (No focal motor deficit) Assessment And Plan - Current Problems (Diagnosis) (1) Acute respiratory failure with hypoxia Current Visit: Yes Status: Acute (2) Pneumonia due to COVID-19 virus Current Visit: Yes Status: Acute (3) Type 2 diabetes mellitus Current Visit: Yes Status: Acute - Plan Continue BiPAP therapy, and high-flow oxygen as needed Continue High-dose IV steroid. Vitamin-D, vitamin-C and zinc supplementation. Status post Ivermectin. Status post convalescent plasma. Aggressive insulin sliding scale for glucose management. Continue current dose Novolin 70/30 and titrate. Pulmonary is following.
[2021-01-22] MEDS: MELATONIN 5 MG TABLET PO SCH (22:34)
[2021-01-23] MEDS: INSULIN -REGULAR HUMAN 50 UNIT/0.5 ML ML SQ SCH ×4 (08:00→21:00)
[2021-01-23] MEDS: BENZONATATE 100 MG CAP PO PRN ×2 (08:47→22:45)
[2021-01-23] MEDS: NYSTATIN 500,000 UNIT/5 ML UDC PO SCH ×4 (08:47→21:04)
[2021-01-23] MEDS: VITAMIN D 1000 UNIT TAB PO SCH (08:47)
[2021-01-23] MEDS: FAMOTIDINE 20 MG TAB PO SCH (08:48)
[2021-01-23] MEDS: ZINC SULFATE 220 MG CAP PO SCH (08:48)
[2021-01-23] MEDS: ASCORBIC ACID 500 MG TABLET PO SCH ×3 (08:48→21:06)
[2021-01-23] MEDS: THIAMINE HCL 100 MG TABLET PO SCH ×2 (08:48→21:05)
[2021-01-23] MEDS: SITAGLIPTIN PHOS 100 MG TAB PO SCH (08:48)
[2021-01-23] MEDS: APIXABAN 5 MG TABLET PO SCH ×2 (08:48→21:04)
[2021-01-23] MEDS: METFORMIN HCL 500 MG TAB PO SCH ×2 (08:48→17:47)
[2021-01-23] MEDS: INSULIN 70/30 100 UNITS/ML SQ SCH ×2 (08:49→17:46)
[2021-01-23] MEDS: METHYLPREDNISOLONE 40 MG INJ IV SCH ×2 (08:50→21:05)
--- NOTE | 2021-01-23 09:20 | RAD REPORT ---
EXAM DESCRIPTION: Saroj Single View01/23/2021 8:57 am CLINICAL HISTORY: Cough COMPARISON: January 20, 2021 FINDINGS: No significant change in [id number] bilateral pulmonary opacities. Heart is proba sherrill upper limits normal size IMPRESSION: No significant change in [id number] bilateral pulmonary opacities probably pneu monia
--- NOTE | 2021-01-23 11:02 | P.PN ---
Subjective Date of Service: 01/23/21 Chief Complaint: Respiratory failure from orr virus Subjective: Improving, Doing well (Denies any chest pain Shortness of breath is improving Patient sitting on a recliner uncomfortably still on high-flow) Review of Systems 10-point ROS is otherwise unremarkable General: Other (No fever or chills) Respiratory: Other (Shortness of breath is improving, denies any chest pain) Physical Examination - Vital Signs Temperature: 97.6 F Blood Pressure: 112/81 Pulse: 96 Respirations: 27 Pulse Ox (%): 82 - Physical Exam General: Alert, In no apparent distress, Oriented x3, Obese HEENT: Atraumatic, Normocephalic Neck: Supple, JVD not distended Respiratory: Diminished, Crackles/rales Cardiovascular: Regular rate/rhythm, Normal S1 S2 Capillary refill: <2 Seconds Gastrointestinal: Soft and benign, W/out hepatosplenomegaly Musculoskeletal: No clubbing, No swelling Integumentary: No rashes, No breakdown Neurological: Normal speech, Normal strength at 5/5 x4 extr Lymphatics: No axilla or inguinal lymphadenopathy Assessment & Plan - Problems (Diagnosis) (1) Acute respiratory failure with hypoxia Current Visit: Yes Status: Acute (2) COVID-19 Current Visit: Yes Status: Acute (3) Pneumonia due to COVID-19 virus Current Visit: Yes Status: Acute (4) Type 2 diabetes mellitus Current Visit: Yes Status: Acute Physician Review Additional Text: Assessment plan Acute respiratory failure with hypoxia Pneumonia due to COVID-19 virus Type 2 diabetes mellitus, previously [id number], obesity Plan Continue BiPAP /HFNC as tolerated/needed. Wean as possible Continue IV solumedrol - 40mg BID. Vitamin-D, vitamin-C and zinc supplementation. s/p ivermectin, s/p conv plasma monitor glc closely, titrate insulin as needed Aggressive insulin sliding scale for glucose management. A1c: 11.8 Appreciate help from pulmonology Slow recovery Despite being on oxygen requirement Advice ambulation Possible transfer out of ICU once cleared by pulmonology Repeat x-ray findings noted no acute changes VTE: Eliquis Code: full Dispo: anticipate hospitalization > 2days, will need home O2 Critical Care: Yes Time Spent Managing Pts Care (In Minutes): 42
--- NOTE | 2021-01-23 11:52 | P.PN ---
Subjective Date of Service: 01/23/21 Chief Complaint: Respiratory failure from orr virus Patient states that he is improving oxygen requirements are declining Review of Systems General: Weakness Respiratory: Shortness of Breath Physical Examination - Vital Signs Temperature: 97.6 F Blood Pressure: 112/81 Pulse: 96 Respirations: 27 Pulse Ox (%): 82 Assessment & Plan - Problems (Diagnosis) (1) COVID-19 Current Visit: Yes Status: Acute Plan: Respiratory failure no change tube feeds if necessary patient is not eating and drinking much continue to wean down on the oxygen he has patient states he is feeling better white count declining blood sugar elevated low-dose spironolactone to maintain an slight negative fluid balance
[2021-01-23] MEDS: SPIRONOLACTONE 25 MG TABLET PO SCH (13:32)
[2021-01-23] MEDS: MELATONIN 5 MG TABLET PO SCH (21:04)
[2021-01-24] MEDS: INSULIN -REGULAR HUMAN 50 UNIT/0.5 ML ML SQ SCH ×4 (07:30→20:46)
[2021-01-24] MEDS: INSULIN 70/30 100 UNITS/ML SQ SCH ×2 (08:00→17:24)
[2021-01-24] MEDS: NYSTATIN 500,000 UNIT/5 ML UDC PO SCH ×4 (08:55→20:46)
[2021-01-24] MEDS: SPIRONOLACTONE 25 MG TABLET PO SCH (08:56)
[2021-01-24] MEDS: VITAMIN D 1000 UNIT TAB PO SCH (08:56)
[2021-01-24] MEDS: ZINC SULFATE 220 MG CAP PO SCH (08:56)
[2021-01-24] MEDS: FAMOTIDINE 20 MG TAB PO SCH (08:56)
[2021-01-24] MEDS: SITAGLIPTIN PHOS 100 MG TAB PO SCH (08:56)
[2021-01-24] MEDS: APIXABAN 5 MG TABLET PO SCH ×2 (08:56→20:46)
[2021-01-24] MEDS: THIAMINE HCL 100 MG TABLET PO SCH ×2 (08:56→20:45)
[2021-01-24] MEDS: METHYLPREDNISOLONE 40 MG INJ IV SCH ×2 (08:56→20:46)
[2021-01-24] MEDS: METFORMIN HCL 500 MG TAB PO SCH ×2 (08:57→18:05)
[2021-01-24] MEDS: ASCORBIC ACID 500 MG TABLET PO SCH ×3 (08:57→20:46)
[2021-01-24] MEDS: BENZONATATE 100 MG CAP PO PRN ×2 (08:57→20:58)
--- NOTE | 2021-01-24 16:41 | P.PN ---
Subjective Date of Service: 01/24/21 Chief Complaint: Respiratory failure from orr virus No new complaint. Patient is stable on the high-flow oxygen. Physical Examination - Vital Signs Temperature: 97.7 F Blood Pressure: 92/58 Pulse: 113 Respirations: 43 Pulse Ox (%): 88 - Physical Exam General: Alert, In no apparent distress Neck: JVD not distended Respiratory: Other (Nonlabored breathing on the high-flow oxygen.) Cardiovascular: Regular rate/rhythm, Other (Tachycardia.) Gastrointestinal: Soft and benign, Non-distended Musculoskeletal: No swelling Integumentary: No rashes Neurological: Other (No focal motor deficit.) Assessment And Plan - Current Problems (Diagnosis) (1) Acute respiratory failure with hypoxia Current Visit: Yes Status: Acute (2) Pneumonia due to COVID-19 virus Current Visit: Yes Status: Acute (3) Type 2 diabetes mellitus Current Visit: Yes Status: Acute - Plan Continue BiPAP therapy, and high-flow oxygen as needed. FiO2 weaned to 75%. Continue High-dose IV steroid. Vitamin-D, vitamin-C and zinc supplementation. Status post Ivermectin. Status post convalescent plasma. Aggressive insulin sliding scale for glucose management. Continue current dose Novolin 70/30. Pulmonary is following.
[2021-01-24] MEDS: MELATONIN 5 MG TABLET PO SCH (20:46)
[2021-01-25 04:40] LABS: Absolute Lymphocytes (CBC) 1.3 K/uL (0.7-4.9); Basophils % 0.7 % (0-1.3); Lymphocytes % 10.1 % (15.3-44.8); RBC Red Blood Cell Count 5.07 M/uL (4.33-5.43)
[2021-01-25 04:54] LABS: BUN Blood Urea Nitrogen 19 mg/dL (7-18); Bicarbonate 29 mmol/L (21-32); Glucose Level 163 mg/dL (74-106); Potassium 4.1 mmol/L (3.5-5.1); Sodium Level 135 mmol/L (136-145)
[2021-01-25] MEDS: INSULIN -REGULAR HUMAN 50 UNIT/0.5 ML ML SQ SCH ×4 (07:30→20:45)
[2021-01-25] MEDS: INSULIN 70/30 100 UNITS/ML SQ SCH ×2 (08:38→16:34)
[2021-01-25] MEDS: SITAGLIPTIN PHOS 100 MG TAB PO SCH (08:39)
[2021-01-25] MEDS: NYSTATIN 500,000 UNIT/5 ML UDC PO SCH ×4 (08:39→20:50)
[2021-01-25] MEDS: VITAMIN D 1000 UNIT TAB PO SCH (08:39)
[2021-01-25] MEDS: ASCORBIC ACID 500 MG TABLET PO SCH ×3 (08:40→20:44)
[2021-01-25] MEDS: APIXABAN 5 MG TABLET PO SCH ×2 (08:40→20:44)
[2021-01-25] MEDS: SPIRONOLACTONE 25 MG TABLET PO SCH (08:40)
[2021-01-25] MEDS: FAMOTIDINE 20 MG TAB PO SCH (08:41)
[2021-01-25] MEDS: METHYLPREDNISOLONE 40 MG INJ IV SCH ×2 (08:41→20:44)
[2021-01-25] MEDS: METFORMIN HCL 500 MG TAB PO SCH ×2 (08:41→16:35)
[2021-01-25] MEDS: ZINC SULFATE 220 MG CAP PO SCH (08:41)
[2021-01-25] MEDS: THIAMINE HCL 100 MG TABLET PO SCH ×2 (08:43→20:44)
--- NOTE | 2021-01-25 12:16 | P.PN ---
Subjective Date of Service: 01/25/21 Chief Complaint: Respiratory failure from orr virus Patient is doing better he is feeling better he still has dyspnea on mild exertion Review of Systems General: Weakness Respiratory: Shortness of Breath Physical Examination - Vital Signs Temperature: 97.2 F Blood Pressure: 110/59 Pulse: 79 Respirations: 28 Pulse Ox (%): 91 - Physical Exam General: Alert, Oriented x3, Moderate distress Respiratory: Clear to auscultation bilaterally, Diminished Assessment & Plan - Problems (Diagnosis) (1) COVID-19 Current Visit: Yes Status: Acute Plan: Respiratory failure from orr virus he subjectively getting better oxygen requirements have declined chemistries reviewed white count is also declining blood sugars reasonably controlled chest x-ray on the 19/03 still shows bilateral changes
--- NOTE | 2021-01-25 16:19 | P.PN ---
Subjective Date of Service: 01/25/21 Chief Complaint: Respiratory failure from orr virus No new complaint. Patient is stable on the high-flow oxygen. He is tolerating 75% FiO2. Physical Examination - Vital Signs Temperature: 97.2 F Blood Pressure: 110/59 Pulse: 79 Respirations: 28 Pulse Ox (%): 91 - Physical Exam General: Alert, In no apparent distress Respiratory: Other (Nonlabored breathing.) Cardiovascular: No edema, Regular rate/rhythm, Normal S1 S2 Gastrointestinal: Non-distended Musculoskeletal: No swelling Integumentary: No rashes Neurological: Other (No focal motor deficit) Assessment And Plan - Current Problems (Diagnosis) (1) Acute respiratory failure with hypoxia Current Visit: Yes Status: Acute (2) Pneumonia due to COVID-19 virus Current Visit: Yes Status: Acute (3) Type 2 diabetes mellitus Current Visit: Yes Status: Acute - Plan Continue BiPAP therapy, and high-flow oxygen as needed. FiO2 weaned to 75%. Continue High-dose IV steroid. Vitamin-D, vitamin-C and zinc supplementation. Status post Ivermectin. Status post convalescent plasma. Aggressive insulin sliding scale for glucose management. Continue current dose Novolin 70/30. Pulmonary is following. Continue to wean off oxygen as tolerated.
[2021-01-25] MEDS: BENZONATATE 100 MG CAP PO PRN (20:43)
[2021-01-25] MEDS: MELATONIN 5 MG TABLET PO SCH (20:44)
[2021-01-26] MEDS: INSULIN -REGULAR HUMAN 50 UNIT/0.5 ML ML SQ SCH ×4 (07:30→21:20)
[2021-01-26] MEDS: ASCORBIC ACID 500 MG TABLET PO SCH ×3 (09:10→21:21)
[2021-01-26] MEDS: APIXABAN 5 MG TABLET PO SCH ×2 (09:10→21:18)
[2021-01-26] MEDS: INSULIN 70/30 100 UNITS/ML SQ SCH ×2 (09:10→16:11)
[2021-01-26] MEDS: VITAMIN D 1000 UNIT TAB PO SCH (09:11)
[2021-01-26] MEDS: FAMOTIDINE 20 MG TAB PO SCH (09:11)
[2021-01-26] MEDS: METHYLPREDNISOLONE 40 MG INJ IV SCH ×2 (09:12→21:21)
[2021-01-26] MEDS: SPIRONOLACTONE 25 MG TABLET PO SCH (09:12)
[2021-01-26] MEDS: THIAMINE HCL 100 MG TABLET PO SCH ×2 (09:12→21:21)
[2021-01-26] MEDS: ZINC SULFATE 220 MG CAP PO SCH (09:12)
[2021-01-26] MEDS: METFORMIN HCL 500 MG TAB PO SCH ×2 (09:12→16:11)
[2021-01-26] MEDS: NYSTATIN 500,000 UNIT/5 ML UDC PO SCH ×4 (09:12→21:19)
[2021-01-26] MEDS: SITAGLIPTIN PHOS 100 MG TAB PO SCH (09:13)
--- NOTE | 2021-01-26 12:19 | P.PN ---
Subjective Date of Service: 01/26/21 Chief Complaint: Respiratory failure from orr virus No new complaint. Patient is stable on the high-flow oxygen. No change in fiO2 requirement since yesterday Physical Examination - Vital Signs Temperature: 97.4 F Blood Pressure: 105/61 Pulse: 75 Respirations: 19 Pulse Ox (%): 90 - Physical Exam General: Alert, In no apparent distress, Oriented x3 Respiratory: Other (Nonlabored breathing) Cardiovascular: No edema, Regular rate/rhythm Gastrointestinal: Soft and benign, Non-distended Musculoskeletal: No swelling Integumentary: No rashes Neurological: Other (No focal motor deficit.) Assessment And Plan - Current Problems (Diagnosis) (1) Acute respiratory failure with hypoxia Current Visit: Yes Status: Acute (2) Pneumonia due to COVID-19 virus Current Visit: Yes Status: Acute (3) Type 2 diabetes mellitus Current Visit: Yes Status: Acute - Plan Continue BiPAP therapy, and high-flow oxygen as needed. FiO2 weaned to 75%. Continue High-dose IV steroid. Vitamin-D, vitamin-C and zinc supplementation. Status post Ivermectin. Status post convalescent plasma. Aggressive insulin sliding scale for glucose management. Continue current dose Novolin 70/30. Pulmonary is following. Continue to wean off oxygen as tolerated.
[2021-01-26] MEDS: MELATONIN 5 MG TABLET PO SCH (21:19)
[2021-01-27] MEDS: SPIRONOLACTONE 25 MG TABLET PO SCH (09:00)
[2021-01-27] MEDS: METFORMIN HCL 500 MG TAB PO SCH ×2 (10:20→17:17)
[2021-01-27] MEDS: INSULIN -REGULAR HUMAN 50 UNIT/0.5 ML ML SQ SCH ×4 (10:20→21:00)
[2021-01-27] MEDS: APIXABAN 5 MG TABLET PO SCH ×2 (10:20→21:15)
[2021-01-27] MEDS: METHYLPREDNISOLONE 40 MG INJ IV SCH (10:20)
[2021-01-27] MEDS: ZINC SULFATE 220 MG CAP PO SCH (10:20)
[2021-01-27] MEDS: SITAGLIPTIN PHOS 100 MG TAB PO SCH (10:20)
[2021-01-27] MEDS: VITAMIN D 1000 UNIT TAB PO SCH (10:20)
[2021-01-27] MEDS: FAMOTIDINE 20 MG TAB PO SCH (10:20)
[2021-01-27] MEDS: THIAMINE HCL 100 MG TABLET PO SCH ×2 (10:20→21:15)
[2021-01-27] MEDS: ASCORBIC ACID 500 MG TABLET PO SCH ×3 (10:20→21:17)
[2021-01-27] MEDS: NYSTATIN 500,000 UNIT/5 ML UDC PO SCH ×4 (10:20→21:16)
--- NOTE | 2021-01-27 11:33 | P.PN ---
Subjective Date of Service: 01/27/21 Chief Complaint: Respiratory failure from orr virus patient is feeling better oxygen requirements have declined to 75% no new complaint Review of Systems Respiratory: Shortness of Breath Physical Examination - Vital Signs Temperature: 97.6 F Blood Pressure: 117/69 Pulse: 105 Respirations: 20 Pulse Ox (%): 87 - Physical Exam General: Alert, In no apparent distress, Oriented x3 Respiratory: Clear to auscultation bilaterally Assessment & Plan - Problems (Diagnosis) (1) COVID-19 Current Visit: Yes Status: Acute Plan: respiratory failure patient is subjectively improving continue to titrate O2 down currently on 75% FiO2 high-flow chemistries reviewed blood sugars still hi gh increase insulin
--- NOTE | 2021-01-27 12:26 | RAD REPORT ---
EXAM DESCRIPTION: Saroj Single View01/27/2021 12:19 pm CLINICAL HISTORY: Respiratory failure COMPARISON: January 23 FINDINGS: Mild improvement in moderate bilateral pulmonary opacities. The heart appears borderline enlarged IMPRESSION: Mild improvement in moderate bilateral pulmonary opacities
--- NOTE | 2021-01-27 12:29 | P.PN ---
Subjective Date of Service: 01/27/21 Chief Complaint: Respiratory failure from orr virus No new complaint. Patient is stable on the high-flow oxygen. He has been tolerating 75% FiO2 for a few days now. Physical Examination - Vital Signs Temperature: 97.5 F Blood Pressure: 106/61 Pulse: 86 Respirations: 19 Pulse Ox (%): 91 - Physical Exam General: Alert, In no apparent distress Neck: JVD not distended Respiratory: Other (Nonlabored breathing) Cardiovascular: No edema, Regular rate/rhythm Gastrointestinal: Soft and benign, Non-distended Musculoskeletal: No swelling Integumentary: No rashes Neurological: Other (No focal motor deficits) Assessment And Plan - Current Problems (Diagnosis) (1) Acute respiratory failure with hypoxia Current Visit: Yes Status: Acute (2) Pneumonia due to COVID-19 virus Current Visit: Yes Status: Acute (3) Type 2 diabetes mellitus Current Visit: Yes Status: Acute - Plan Continue high-flow oxygen as needed. Wean FiO2 as tolerated. Transitioned to oral prednisone Vitamin-D, vitamin-C and zinc supplementation. Status post Ivermectin. Status post convalescent plasma. Aggressive insulin sliding scale for glucose management. Continue current dose Novolin 70/30. Pulmonary is following.
[2021-01-27] MEDS: INSULIN 70/30 100 UNITS/ML SQ SCH (17:18)
[2021-01-27] MEDS: predniSONE 20 MG TAB PO SCH (21:15)
[2021-01-27] MEDS: MELATONIN 5 MG TABLET PO SCH (21:15)
[2021-01-28 03:59] LABS: Absolute Lymphocytes (CBC) 1.7 K/uL (0.7-4.9); Basophils % 0.2 % (0-1.3); Hematocrit 42.9 % (39.6-49.0); MPV 7.2 fL (7.6-11.3); RBC Red Blood Cell Count 4.91 M/uL (4.33-5.43)
[2021-01-28 04:17] LABS: BUN Blood Urea Nitrogen 16 mg/dL (7-18); Bicarbonate 28 mmol/L (21-32); Glucose Level 137 mg/dL (74-106); Magnesium 2.4 mg/dL (1.8-2.4); Potassium 3.6 mmol/L (3.5-5.1); Sodium Level 138 mmol/L (136-145)
[2021-01-28 05:25] LABS: C-Reactive Protein < 2.90 mg/L (<3.00)
[2021-01-28] MEDS: INSULIN -REGULAR HUMAN 50 UNIT/0.5 ML ML SQ SCH ×4 (07:30→23:07)
[2021-01-28] MEDS: VITAMIN D 1000 UNIT TAB PO SCH (08:35)
[2021-01-28] MEDS: ASCORBIC ACID 500 MG TABLET PO SCH ×3 (08:37→22:20)
[2021-01-28] MEDS: NYSTATIN 500,000 UNIT/5 ML UDC PO SCH ×4 (08:37→22:18)
[2021-01-28] MEDS: APIXABAN 5 MG TABLET PO SCH ×2 (08:37→22:18)
[2021-01-28] MEDS: THIAMINE HCL 100 MG TABLET PO SCH ×2 (08:37→22:20)
[2021-01-28] MEDS: METFORMIN HCL 500 MG TAB PO SCH ×2 (08:37→18:38)
[2021-01-28] MEDS: ZINC SULFATE 220 MG CAP PO SCH (08:37)
[2021-01-28] MEDS: INSULIN 70/30 100 UNITS/ML SQ SCH ×2 (08:39→18:43)
[2021-01-28] MEDS: FAMOTIDINE 20 MG TAB PO SCH (08:39)
[2021-01-28] MEDS: SITAGLIPTIN PHOS 100 MG TAB PO SCH (08:49)
[2021-01-28] MEDS: SPIRONOLACTONE 25 MG TABLET PO SCH (08:50)
[2021-01-28] MEDS: predniSONE 20 MG TAB PO SCH ×2 (08:51→22:18)
--- NOTE | 2021-01-28 13:05 | P.PN ---
Subjective Date of Service: 01/28/21 Chief Complaint: Respiratory failure from orr virus Subjective: No new changes (continues to do well, reports breathing is slightly better every day. denies any new issues/complaints) Review of Systems 10-point ROS is otherwise unremarkable Physical Examination - Vital Signs Temperature: 97.8 F Blood Pressure: 106/58 Pulse: 97 Respirations: 19 Pulse Ox (%): 95 Assessment & Plan Physician Review Additional Text: Physical Exam General: Alert, In no apparent distress Respiratory: nonlabored respirations on HFNC Cardiovascular: No edema, Regular rate/rhythm Gastrointestinal: Soft and benign, Non-distended Ext: No swelling, no rash Neuro: AAOx3 Assessment And Plan Acute respiratory failure with hypoxia Pneumonia due to COVID-19 virus Type 2 diabetes mellitus Continue high-flow oxygen as needed. Wean FiO2 as tolerated. continue PO prednisone, Vitamin-D, vitamin-C and zinc supplementation. s/p ivermectin, convalescent plasma Aggressive insulin sliding scale for glucose management. decrease novolin 70/30 from 35 to 30 Pulmonary is following. slowly improving anticipate dc home in a ~3-4 days Time Spent Managing Pts Care (In Minutes): 35
[2021-01-28] MEDS: MELATONIN 5 MG TABLET PO SCH (22:18)
[2021-01-29] MEDS: INSULIN -REGULAR HUMAN 50 UNIT/0.5 ML ML SQ SCH ×4 (07:30→20:52)
[2021-01-29] MEDS: INSULIN 70/30 100 UNITS/ML SQ SCH ×2 (08:59→16:30)
[2021-01-29] MEDS: predniSONE 20 MG TAB PO SCH ×2 (09:03→20:48)
[2021-01-29] MEDS: METFORMIN HCL 500 MG TAB PO SCH ×2 (09:03→16:50)
[2021-01-29] MEDS: NYSTATIN 500,000 UNIT/5 ML UDC PO SCH ×3 (09:04→20:49)
[2021-01-29] MEDS: THIAMINE HCL 100 MG TABLET PO SCH ×2 (09:04→20:47)
[2021-01-29] MEDS: ASCORBIC ACID 500 MG TABLET PO SCH ×3 (09:04→20:47)
[2021-01-29] MEDS: VITAMIN D 1000 UNIT TAB PO SCH (09:05)
[2021-01-29] MEDS: ZINC SULFATE 220 MG CAP PO SCH (09:05)
[2021-01-29] MEDS: FAMOTIDINE 20 MG TAB PO SCH (09:10)
[2021-01-29] MEDS: APIXABAN 5 MG TABLET PO SCH ×2 (09:10→20:47)
[2021-01-29] MEDS: SITAGLIPTIN PHOS 100 MG TAB PO SCH (09:10)
--- NOTE | 2021-01-29 16:36 | P.PN ---
Subjective Date of Service: 01/29/21 Chief Complaint: Respiratory failure from orr virus Subjective: No new changes (reports doing well, no new issues/complaints, still with dyspnea/hypoxia with movement. good appetite, voiding without issue) Review of Systems 10-point ROS is otherwise unremarkable Physical Examination - Vital Signs Temperature: 97.4 F Blood Pressure: 104/53 Pulse: 102 Respirations: 20 Pulse Ox (%): 96 Assessment & Plan Physician Review Additional Text: Physical Exam General: Alert, In no apparent distress Respiratory: nonlabored respirations on HFNC Cardiovascular: No edema, Regular rate/rhythm Gastrointestinal: Soft and benign, Non-distended Ext: No swelling, no rash Neuro: AAOx3 Assessment And Plan Acute respiratory failure with hypoxia Pneumonia due to COVID-19 virus Type 2 diabetes mellitus Continue high-flow oxygen as needed. Wean FiO2 as tolerated. continue PO prednisone, Vitamin-D, vitamin-C and zinc supplementation. s/p ivermectin, convalescent plasma Aggressive insulin sliding scale for glucose management. glucose well controlled, titrate as needed, novolin 70/30 30u BID Pulmonary is following. BP low, spironolactone discontinued dispo: prolonged hospitalization, slow improvement; anticipate dc home in several days. Time Spent Managing Pts Care (In Minutes): 35
[2021-01-29] MEDS: MELATONIN 5 MG TABLET PO SCH (20:48)
[2021-01-30 03:58] LABS: Absolute Lymphocytes (CBC) 1.3 K/uL (0.7-4.9); Basophils % 0.4 % (0-1.3); Hematocrit 41.8 % (39.6-49.0); Lymphocytes % 14.5 % (15.3-44.8); MPV 7.3 fL (7.6-11.3); RBC Red Blood Cell Count 4.76 M/uL (4.33-5.43)
[2021-01-30 04:17] LABS: BUN Blood Urea Nitrogen 17 mg/dL (7-18); Bicarbonate 29 mmol/L (21-32); Ferritin 208.5 ng/mL (26-388); Glucose Level 182 mg/dL (74-106); Potassium 3.8 mmol/L (3.5-5.1); Sodium Level 138 mmol/L (136-145)
[2021-01-30 04:20] LABS: C-Reactive Protein < 2.90 mg/L (<3.00)
[2021-01-30] MEDS: INSULIN 70/30 100 UNITS/ML SQ SCH ×2 (07:30→17:15)
[2021-01-30] MEDS: INSULIN -REGULAR HUMAN 50 UNIT/0.5 ML ML SQ SCH ×4 (07:30→21:00)
--- NOTE | 2021-01-30 08:45 | RAD REPORT ---
EXAM DESCRIPTION: RAD - Chest Single View - 01/30/2021 4:44 am CLINICAL HISTORY: covid, hypoxia Chest pain. COMPARISON: Chest Single View dated 01/27/2021; Chest Single View dated 01/23/2021; Chest Single View dated 01/20/2021; Chest Single View dated 01/16/2021 FINDINGS: Portable technique limits examination quality. Since 01/27/2021, little overall change is seen in extensive bilateral pulmonary opacities. The heart is normal in size. No displaced fractures. IMPRESSION: Stable chest since 01/27/2021.
[2021-01-30] MEDS: THIAMINE HCL 100 MG TABLET PO SCH ×2 (09:43→19:47)
[2021-01-30] MEDS: SITAGLIPTIN PHOS 100 MG TAB PO SCH (09:43)
[2021-01-30] MEDS: FAMOTIDINE 20 MG TAB PO SCH (09:43)
[2021-01-30] MEDS: VITAMIN D 1000 UNIT TAB PO SCH (09:43)
[2021-01-30] MEDS: NYSTATIN 500,000 UNIT/5 ML UDC PO SCH ×3 (09:44→19:48)
[2021-01-30] MEDS: ASCORBIC ACID 500 MG TABLET PO SCH ×3 (09:44→19:48)
[2021-01-30] MEDS: METFORMIN HCL 500 MG TAB PO SCH ×2 (09:44→16:56)
[2021-01-30] MEDS: predniSONE 20 MG TAB PO SCH ×2 (09:44→19:48)
[2021-01-30] MEDS: APIXABAN 5 MG TABLET PO SCH ×2 (09:44→19:48)
[2021-01-30] MEDS: ZINC SULFATE 220 MG CAP PO SCH (09:44)
--- NOTE | 2021-01-30 12:55 | P.PN ---
Subjective Date of Service: 01/30/21 Chief Complaint: Respiratory failure from orr virus Patient is doing better his oxygen requirements have declined to 60% feeling better Review of Systems General: Weakness Respiratory: Shortness of Breath Physical Examination - Vital Signs Temperature: 97.4 F Blood Pressure: 100/60 Pulse: 98 Respirations: 20 Pulse Ox (%): 93 Assessment & Plan - Problems (Diagnosis) (1) COVID-19 Current Visit: Yes Status: Acute Plan: Respiratory failure he is improving subjectively feeling better oxygen requirements declining by nasal cannula oxygen possible preparation for discharge
--- NOTE | 2021-01-30 13:00 | P.PN ---
Subjective Date of Service: 01/30/21 Chief Complaint: Respiratory failure from orr virus Subjective: Improving (oxygen requirement decreasing, patient reports feeling well, appetite is ok, voiding without issue, no concerns) Review of Systems 10-point ROS is otherwise unremarkable Physical Examination - Vital Signs Temperature: 97.4 F Blood Pressure: 100/60 Pulse: 98 Respirations: 20 Pulse Ox (%): 93 Assessment & Plan Physician Review Additional Text: Physical Exam General: Alert, In no apparent distress Respiratory: nonlabored respirations on HFNC, FiO2 55% Cardiovascular: No edema, Regular rate/rhythm Gastrointestinal: Soft and benign, Non-distended Ext: No swelling, no rash Neuro: AAOx3 Assessment And Plan Acute respiratory failure with hypoxia Pneumonia due to COVID-19 virus Type 2 diabetes mellitus Continue high-flow oxygen as needed. Wean FiO2 as tolerated. trial of nasal cannula continue PO prednisone, Vitamin-D, vitamin-C and zinc supplementation. s/p ivermectin, convalescent plasma insulin sliding scale for glucose management. glucose down to 81, now on PO prednisone, will wean novolin 70/30 30u BID -> 25 Pulmonary is following. BP low, spironolactone discontinued on 01/29 CXR 01/30. unchanged dispo: prolonged hospitalization, slow improvement; anticipate dc home in the next 3-4 days with home O2 Time Spent Managing Pts Care (In Minutes): 35
[2021-01-30] MEDS ORDERED: INSULIN 70/30 100 UNITS/ML SQ SCH (16:30)
[2021-01-30] MEDS: BENZONATATE 100 MG CAP PO PRN (19:47)
[2021-01-30] MEDS: MELATONIN 5 MG TABLET PO SCH (19:47)
[2021-01-31] MEDS: FAMOTIDINE 20 MG TAB PO SCH (08:01)
[2021-01-31] MEDS: SITAGLIPTIN PHOS 100 MG TAB PO SCH (08:01)
[2021-01-31] MEDS: THIAMINE HCL 100 MG TABLET PO SCH ×2 (08:01→21:20)
[2021-01-31] MEDS: ZINC SULFATE 220 MG CAP PO SCH (08:02)
[2021-01-31] MEDS: NYSTATIN 500,000 UNIT/5 ML UDC PO SCH (08:02)
[2021-01-31] MEDS: INSULIN 70/30 100 UNITS/ML SQ SCH ×2 (08:02→16:24)
[2021-01-31] MEDS: METFORMIN HCL 500 MG TAB PO SCH ×2 (08:02→16:23)
[2021-01-31] MEDS: VITAMIN D 1000 UNIT TAB PO SCH (08:02)
[2021-01-31] MEDS: APIXABAN 5 MG TABLET PO SCH ×2 (08:02→21:18)
[2021-01-31] MEDS: ASCORBIC ACID 500 MG TABLET PO SCH ×3 (08:02→21:20)
[2021-01-31] MEDS: predniSONE 20 MG TAB PO SCH ×2 (08:02→21:18)
[2021-01-31] MEDS: INSULIN -REGULAR HUMAN 50 UNIT/0.5 ML ML SQ SCH ×4 (08:03→21:19)
--- NOTE | 2021-01-31 12:37 | P.PN ---
Subjective Date of Service: 01/31/21 Chief Complaint: Respiratory failure from orr virus Subjective: Improving (Oxygen requirement improving, patient reports feeling well, without any complaints) Review of Systems 10-point ROS is otherwise unremarkable Physical Examination - Vital Signs Temperature: 97.8 F Blood Pressure: 107/57 Pulse: 109 Respirations: 19 Pulse Ox (%): 89 Assessment & Plan Physician Review Additional Text: Physical Exam General: Alert, In no apparent distress Respiratory: nonlabored respirations on 6L NC Cardiovascular: No edema, Regular rate/rhythm Gastrointestinal: Soft and benign, Non-distended Ext: No swelling, no rash Neuro: AAOx3 Assessment And Plan Acute respiratory failure with hypoxia Pneumonia due to COVID-19 virus Type 2 diabetes mellitus wean O2 as tolerated. continue PO prednisone, Vitamin-D, vitamin-C and zinc supplementation. s/p ivermectin, convalescent plasma. Pulmonary is following. insulin sliding scale for glucose management. glucose down to 81, now on PO prednisone, novolin 70/30 30u BID -> 25 on 01/30, glucose ok spironolactone discontinued on 01/29 due to hypotension CXR 01/30. unchanged dispo: prolonged hospitalization, slow improvement; anticipate dc home in the next 2-3 days with home O2 Time Spent Managing Pts Care (In Minutes): 35
[2021-01-31] MEDS: MELATONIN 5 MG TABLET PO SCH (21:18)
[2021-01-31 23:09] VITALS: BMI 34.1
[2021-02-01 04:18] LABS: BUN Blood Urea Nitrogen 14 mg/dL (7-18); Bicarbonate 29 mmol/L (21-32); Glucose Level 151 mg/dL (74-106); Potassium 3.7 mmol/L (3.5-5.1); Sodium Level 138 mmol/L (136-145)
[2021-02-01] MEDS: BENZONATATE 100 MG CAP PO PRN ×2 (08:42→17:55)
[2021-02-01] MEDS: ZINC SULFATE 220 MG CAP PO SCH (08:42)
[2021-02-01] MEDS: FAMOTIDINE 20 MG TAB PO SCH (08:43)
[2021-02-01] MEDS: ACETAMINOPHEN 500 MG TAB PO PRN (08:43)
[2021-02-01] MEDS: METFORMIN HCL 500 MG TAB PO SCH ×2 (08:43→17:09)
[2021-02-01] MEDS: SITAGLIPTIN PHOS 100 MG TAB PO SCH (08:43)
[2021-02-01] MEDS: THIAMINE HCL 100 MG TABLET PO SCH ×2 (08:43→21:53)
[2021-02-01] MEDS: predniSONE 20 MG TAB PO SCH ×2 (08:43→21:51)
[2021-02-01] MEDS: VITAMIN D 1000 UNIT TAB PO SCH (08:43)
[2021-02-01] MEDS: ASCORBIC ACID 500 MG TABLET PO SCH ×3 (08:43→21:53)
[2021-02-01] MEDS: APIXABAN 5 MG TABLET PO SCH ×2 (08:43→21:51)
[2021-02-01] MEDS: INSULIN -REGULAR HUMAN 50 UNIT/0.5 ML ML SQ SCH ×4 (08:44→21:52)
[2021-02-01] MEDS: INSULIN 70/30 100 UNITS/ML SQ SCH ×2 (08:44→17:08)
--- NOTE | 2021-02-01 11:47 | P.PN ---
Subjective Date of Service: 02/01/21 Chief Complaint: Respiratory failure from orr virus Subjective: No new changes (slowly improving. on 5L NC, no complaints, feeling well, some dyspnea on exertion. eating without issue) Review of Systems 10-point ROS is otherwise unremarkable Physical Examination - Vital Signs Temperature: 98.2 F Blood Pressure: 99/58 Pulse: 82 Respirations: 20 Pulse Ox (%): 89 Assessment & Plan Physician Review Additional Text: Physical Exam General: Alert, In no apparent distress Respiratory: nonlabored respirations on 5L NC Cardiovascular: No edema, Regular rate/rhythm Gastrointestinal: Soft and benign, Non-distended Ext: No swelling, no rash Neuro: AAOx3 Assessment And Plan Acute respiratory failure with hypoxia Pneumonia due to COVID-19 virus Type 2 diabetes mellitus wean O2 as tolerated. continue PO prednisone, Vitamin-D, vitamin-C and zinc supplementation. s/p ivermectin, convalescent plasma. Pulmonary is following. insulin sliding scale for glucose management. titrate novolin 70/30 as needed spironolactone discontinued on 01/29 due to hypotension CXR 01/30. unchanged dispo: prolonged hospitalization, slow improvement; anticipate dc home in the next 24-48hrs. High possibility of tomorrow if oxygen is set up Time Spent Managing Pts Care (In Minutes): 35
[2021-02-01] MEDS: MELATONIN 5 MG TABLET PO SCH (21:51)
[2021-02-02] MEDS: INSULIN -REGULAR HUMAN 50 UNIT/0.5 ML ML SQ SCH ×2 (07:30→11:30)
[2021-02-02] MEDS: THIAMINE HCL 100 MG TABLET PO SCH (08:21)
[2021-02-02] MEDS: VITAMIN D 1000 UNIT TAB PO SCH (08:21)
[2021-02-02] MEDS: SITAGLIPTIN PHOS 100 MG TAB PO SCH (08:21)
[2021-02-02] MEDS: predniSONE 20 MG TAB PO SCH (08:21)
[2021-02-02] MEDS: INSULIN 70/30 100 UNITS/ML SQ SCH (08:21)
[2021-02-02] MEDS: ASCORBIC ACID 500 MG TABLET PO SCH ×2 (08:21→13:19)
[2021-02-02] MEDS: METFORMIN HCL 500 MG TAB PO SCH (08:22)
[2021-02-02] MEDS: APIXABAN 5 MG TABLET PO SCH (08:22)
[2021-02-02] MEDS: FAMOTIDINE 20 MG TAB PO SCH (08:22)
[2021-02-02] MEDS: ZINC SULFATE 220 MG CAP PO SCH (08:29)
--- NOTE | 2021-02-02 09:54 | P.DS ---
Admission Date: 01/08/21 Discharge Date: 02/02/21 Disposition: ROUTINE DISCHARGE Discharge Condition: GOOD Reason for Admission: Respiratory failure from orr virus Consultations: Pulmonology - Dr. Dick Procedures: CXR (01/07): Moderate severity bilateral pneumonia pattern most likely COVID-19 pneumonia given the provided history. CXR (01/16): Worsening in extensive right and mild improvement in moderat e-to-marked left pulmonary opacities consistent with pneumonia CXR (01/20): Partial clearing of dense right lung field airspace opacification. No improvement on the left. CXR (01/23): No significant change in [id number] bilateral pulmonary opacities probably pneumonia CXR (01/27): Mild improvement in moderate bilateral pulmonary opacities CXR (01/30): Stable chest since 01/27/2021. Problem List: Acute respiratory failure with hypoxia Pneumonia due to COVID-19 virus Type 2 diabetes mellitus, non-insulin dependent Brief History of Present Illness: 50 y o male with medical hx of diabetes type 2 admitted for management of covid 19 disease. he had c/o sob for 3 days and weakness. he denied any overt fever but he did state that he has weakness and some mild chest discomfort. he denied any headache, focal weakness or n/v. he was noted to be significantly short of breath and hypoxic in the ED. He was started on bipap for resp failure and he was admitted for inpt care. Hospital Course: Patient was treated with high dose steroids, Ivermectin, convalescent plasma, vitamin supplementation, and eliquis. He had a prolonged hospitalization due to slow improvement of his COVID-19 pneumonia / hypoxia. He was eventually weaned down to 4L nasal cannula and remained stable at this level for ~24hrs prior to discharge home with O2. Patient felt well and was anxious to go back home. He was discharged with 2 weeks of prednisone, eliquis, and home O2. He was advised to follow up with his PCP within 1 week, and to follow up with Dr. Dick in ~1 week - to call and schedule telephone follow up appointment. Patient was noted to have steroid induced hyperglycemia and was discharged home with some insulin to take while on steroids. Vital Signs/Physical Exam: Physical Exam General: Alert, In no apparent distress Respiratory: nonlabored respirations on 4L NC Cardiovascular: No edema, Regular rate/rhythm Gastrointestinal: Soft and benign, Non-distended Ext: No swelling, no rash Neuro: AAOx3 Temp Pulse Resp BP Pulse Ox 97.3 F 83 16 108/65 91 02/02/21 08:00 02/02/21 08:00 02/02/21 08:00 02/02/21 08:00 02/02/21 08:00 Laboratory Data at Discharge: WBC 8.70 K/uL (4.3-10.9) D 01/30/21 03:10 Hgb 13.7 g/dL (13.6-17.9) 01/30/21 03:10 Hct 41.8 % (39.6-49.0) 01/30/21 03:10 Plt Count 214 K/uL (152-406) 01/30/21 03:10 Sodium 138 mmol/L (136-145) 02/01/21 03:17 Potassium 3.7 mmol/L (3.5-5.1) 02/01/21 03:17 BUN 14 mg/dL (7-18) 02/01/21 03:17 Creatinine 0.58 mg/dL (0.55-1.3) 02/01/21 03:17 Glucose 151 mg/dL (74-106) H 02/01/21 03:17 Magnesium 2.0 mg/dL (1.8-2.4) 01/30/21 03:10 Total Bilirubin 0.5 mg/dL (0.2-1.0) 01/12/21 04:08 AST 13 U/L (15-37) L 01/12/21 04:08 ALT 28 U/L (12-78) 01/12/21 04:08 Alkaline Phosphatase 163 U/L (45-117) H 01/12/21 04:08 Home Medications: Famotidine [Pepcid] 20 mg PO DAILY 01/08/21 Metformin HCl [Glucophage*] 500 mg PO BIDWM 01/08/21 Apixaban [Eliquis] 5 mg PO BID 30 Days #60 tablet 02/02/21 Insulin NPH Human Isophane [Humulin N] 10 unit SQ BID #6 vial 02/02/21 predniSONE [Prednisone*] 20 mg PO BID #21 tab 02/02/21 New Medications: Apixaban [Eliquis] 5 mg PO BID 30 Days #60 tablet Insulin NPH Human Isophane [Humulin N] 10 unit SQ BID #6 vial predniSONE [Prednisone*] 20 mg PO BID #21 tab Diet: ADA Activity: Ad yuly Followup: Tony Dick MD [ACTIVE - CAN ADMIT] - 1 Week (call for appointment) NONE,NONE [Primary Care Provider] - 1-2 Weeks (call for appointment) Time spent managing pt's care (in minutes): 45
[2021-02-02 10:05] VITALS: O2SAT 92
[2021-02-02 12:37] VITALS: BP 98/57; TEMP 97.6
== END 2021-02-02 14:58 | disposition home or self-care (01) | DRG 177 ==
LOC: ER 17:32 → 3RD-ICU 01-08 01:13 → 4TH 01-25 06:45
PROVIDERS: ADMIT Internal Medicine Sleep Medicine; ATTEND Hospitalist
PROC: XW033E5 Introduction of Remdesivir Anti-infective into Peripheral Vein, Percutaneous Approach, New Technology Group 5 (ICD-10-PCS; principal; 2021-01-08)
PROC: XW13325 Transfusion of Convalescent Plasma (Nonautologous) into Peripheral Vein, Percutaneous Approach, New Technology Group 5 (ICD-10-PCS; 2021-01-08)
PROC: 5A09557 Assistance with Respiratory Ventilation, Greater than 96 Consecutive Hours, Continuous Positive Airway Pressure (ICD-10-PCS; 2021-01-08)
DX: U07.1 COVID-19 (principal); J12.82 Pneumonia due to coronavirus disease 2019; J96.01 Acute respiratory failure with hypoxia; E11.65 Type 2 diabetes mellitus with hyperglycemia; K21.9 Gastro-esophageal reflux disease without esophagitis; E66.9 Obesity, unspecified; R00.0 Tachycardia, unspecified; Z68.34 Body mass index [BMI] 34.0-34.9, adult; Z79.52 Long term (current) use of systemic steroids; Z79.4 Long term (current) use of insulin; Z79.899 Other long term (current) drug therapy
CPT/HCPCS: 36415; 71045; 80048; 80053; 80076; 82248; 82565; 82728; 82947; 83036; 83605; 83735; 84145; 85025; 85027; 86140; 86900; 86901; 86927; 87040; 93005; 94002; 94003; 94010; 94660; 94760; 96361; 96374; 99291; 99292; J0456; J0696; J1100; J1650; J1815; J2920; J2930; J7040; J7050; J7512

== ENCOUNTER 2021-04-25 15:35 | Emergency (ER) | payer SELFPAY ==
[2021-04-25] MEDS ORDERED: NA CHLORIDE 0.9% 1,000 ML ONE (16:13)
[2021-04-25 16:26] LABS: Absolute Lymphocytes (CBC) 2.3 K/uL (0.7-4.9); Hematocrit 39.1 % (39.6-49.0); Lymphocytes % 32.6 % (15.3-44.8); RBC Red Blood Cell Count 4.36 M/uL (4.33-5.43)
[2021-04-25] MEDS ORDERED: ONDANSETRON 4 MG/2 ML VIAL ONE (16:33)
[2021-04-25 16:58] LABS: ALT/SGPT 203 U/L (12-78); AST/SGOT 116 U/L (15-37); Albumin 3.3 g/dL (3.4-5.0); Alkaline Phosphatase 119 U/L (45-117); BUN Blood Urea Nitrogen 6 mg/dL (7-18); Bicarbonate 30 mmol/L (21-32); Bilirubin Direct 0.2 mg/dL (0-0.2); Bilirubin Total 0.8 mg/dL (0.2-1.0); Glucose Level 283 mg/dL (74-106); Lipase 93 U/L (73-393); Potassium 3.1 mmol/L (3.5-5.1); Protein, Total 7.3 g/dL (6.4-8.2); Sodium Level 138 mmol/L (136-145)
[2021-04-25] MEDS ORDERED: MORPHINE 4 MG/ML SYR ONE (17:08)
--- NOTE | 2021-04-25 17:33 | RAD REPORT ---
EXAM DESCRIPTION: RAD - Chest Single View - 04/25/2021 4:26 pm CLINICAL HISTORY: DYSPNEA, weakness, history of COVID infection in December COMPARISON: Portable January 30 TECHNIQUE: AP portable chest image was obtained 04/25/2021 4:26 pm . FINDINGS: Lung volumes are low. Interstitial and alveolar opacification seen on the January 30 study has resolved or nearly fully resolved. There is little if any identifiable remnant infiltrative proce ss. Trachea is midline. Heart and vasculature are normal. No measurable pleural effusion and no pneum othorax. No acute bony abnormality seen. No acute aortic findings suspected. IMPRESSION: No acute cardiopulmonary process.
--- NOTE | 2021-04-25 18:11 | RAD REPORT ---
EXAM DESCRIPTION: US - Abdomen Exam Limited - 04/25/2021 5:59 pm CLINICAL HISTORY: ABD PAIN COMPARISON: No comparisons FINDINGS: No gallstones, sludge or other abnormalities within the gallbladder lumen. There is no wal l thickening or pericholecystic fluid. No common duct stone or biliary tree dilatation identified. IMPRESSION: Normal gallbladder and biliary tree ultrasound.
--- NOTE | 2021-04-25 19:01 | ER ---
Nurse's Notes [facility] Name: Leandro Rand Age: 50 yrs Sex: Male : 1970 Arrival Date: 04/25/2021 Time: 15:39 Bed 18 Private MD: Diagnosis: Abnormal results of liver function studies;Nausea and vomiting;Diarrhea, unspecified Presentation: 04/25 15:42 Chief complaint: Patient states: N/V/D since Thursday. today, feels really weak and ca1 unable to tolerate fluids. Had Covid in December 2019, was admitted for a month and still on O2 at home at this time. Coronavirus screen: Client denies travel out of the [place] in the last 14 days. diarrhea, fatigue, nausea, vomiting. Client presents with at least one sign or symptom that may indicate coronavirus-19. Standard/surgical mask placed on the client. Provider contacted for isolation considerations. Ebola Screen: Patient negative for fever greater than or equal to 101.5 degrees Fahrenheit, and additional compatible Ebola Virus Disease symptoms Patient denies exposure to infectious person. Patient denies travel to an Ebola-affected area in the 21 days before illness onset. No symptoms or risks identified at this time. Initial Sepsis Screen: Does the patient meet any 2 criteria? No. Patient's initial sepsis screen is negative. Does the patient have a suspected source of infection? No. Patient's initial sepsis screen is negative. Risk Assessment: Do you want to hurt yourself or someone else? Patient reports no desire to harm self or others. Onset of symptoms was April 25, 2021. 15:42 Method Of Arrival: Ambulatory ca1 15:42 Acuity: FELI 3 ca1 Historical: - Allergies: 15:46 No Known Allergies; ca1 - Home Meds: 15:46 Lantus 100 unit/mL Sub-Q soln [Active]; Insulin: Novolin 70/30 Sub-Q [Active]; ca1 Metformin Oral [Active]; Lipitor 40 mg Oral tab 1 tab once daily [Active]; Eliquis oral oral [Active]; - PMHx: 15:46 Diabetes - NIDDM; Hyperlipidemia; Diabetes - IDDM; ca1 - PSHx: 15:46 None; ca1 - Immunization history:: Client reports receiving the 2nd dose of the Covid vaccine, Client reports receiving the 1st dose of the Covid vaccine, Flu vaccine is not up to date. - Social history:: Smoking status: Patient denies any tobacco usage or history of. Screenin:17 Abuse screen: Denies threats or abuse. Denies injuries from another. Nutritional ld1 screening: No deficits noted. Tuberculosis screening: No symptoms or risk factors identified. Fall Risk None identified. IV access (20 points). Total Marina Fall Scale indicates No Risk (0-24 pts). Assessment: 16:17 General: Appears in no apparent distress. comfortable, Behavior is calm, cooperative, ld1 appropriate for age. Pain: Denies pain. Neuro: Level of Consciousness is awake, alert, obeys commands, Oriented to person, place, time, situation, Appropriate for age. Cardiovascular: Denies chest pain, Capillary refill < 3 seconds Patient's skin is warm and dry. Rhythm is sinus tachycardia. Respiratory: Airway is patent Respiratory effort is even, labored, Respiratory pattern is regular, symmetrical. GI: Abdomen is round distended, Reports diarrhea, nausea, vomiting. GI: Reports since x 6 DAYS. : No signs and/or symptoms were reported regarding the genitourinary system. EENT: No signs and/or symptoms were reported regarding the EENT system. Derm: No signs and/or symptoms reported regarding the dermatologic system. Musculoskeletal: No signs and/or symptoms reported regarding the musculoskeletal system. 19:13 Reassessment: Patient appears in no apparent distress at this time. Patient and/or ad5 family updated on plan of care and expected duration. Pain level reassessed. Patient is alert, oriented x 3, equal unlabored respirations, skin warm/dry/pink. Patient states feeling better. Patient states symptoms have improved. Vital Signs: 15:42 Pulse 121; Resp 20; Temp 97.8(TE); Pulse Ox 90% on R/A; Weight 114.31 kg; Height 5 ft. ca1 7 in. (170.18 cm) (R); Pain 0/10; 15:46 BP 125 / 83; Pulse Ox 93% on R/A; ca1 16:17 BP 132 / 64; Pulse 115; Resp 25; Temp 97.9(O); Pulse Ox 95% on 3 lpm NC; Weight 114.3 ld1 kg; Height 6 ft. 0 in. (182.88 cm); Pain 0/10; 19:13 BP 147 / 74; Pulse 111; Resp 18 S; Pulse Ox 97% on NC; Pain 3/10; ad5 16:17 Body Mass Index 34.18 (114.30 kg, 182.88 cm) ld1 ED Course: 15:39 Patient arrived in ED. mr 15:44 Triage completed. ca1 15:45 Belen Sandoval FNP-C [facility]. kb 15:45 Dustin Saleh MD is Attending Physician. kb 15:46 Arm band placed on right wrist. ca1 15:51 Liliana Biggs, MARILU is Primary Nurse. ld1 16:10 Inserted saline lock: 20 gauge in right antecubital area, using aseptic technique. sv Blood collected. Flushed right antecubital with 5 ml normal saline. 16:17 Patient has correct armband on for positive identification. Placed in gown. Bed in low ld1 position. Call light in reach. Side rails up X2. wastewater supervisor on. Pulse ox on. NIBP on. Door closed. Noise minimized. Warm blanket given. 16:26 Chest Single View XRAY In Process Unspecified. EDMS 17:59 US Abdomen Limited In Process Unspecified. EDMS 19:13 No provider procedures requiring assistance completed. IV discontinued, intact, ad5 bleeding controlled, No redness/swelling at site. Pressure dressing applied. Administered Medications: 16:15 Drug: NS 0.9% 1000 ml Route: IV; Rate: 1000 ml; Site: right antecubital; sv 19:12 Follow up: IV Status: Completed infusion; IV Intake: 1000ml ad5 16:17 Drug: Zofran (Ondansetron) 4 mg Route: IVP; Site: right antecubital; ld1 19:12 Follow up: Response: No adverse reaction; Nausea is decreased ad5 16:54 Drug: morphine 4 mg Route: IVP; Site: right antecubital; ld1 17:15 Follow up: Response: No adverse reaction ld1 18:25 Drug: Potassium Chloride 40 mEq Route: PO; ld1 18:37 Follow up: Response: No adverse reaction ld1 Intake: 19:12 IV: 1000ml; Total: 1000ml. ad5 Outcome: 19:00 Discharge ordered by . kb 19:13 Discharged to home ambulatory, with significant other. ad5 19:13 Condition: stable 19:13 Discharge instructions given to patient, significant other, Instructed on discharge instructions, follow up and referral plans. medication usage, Demonstrated understanding of instructions, follow-up care, medications, Prescriptions given X 2. 19:14 Patient left the ED. ad5 Signatures: Dispatcher [employer] EDMS Belen Sandoval, INTEGRATED PEST MANAGEMENT TECHNICIAN-C INTEGRATED PEST MANAGEMENT TECHNICIAN-Mirtha Barr RN RN sv Larissa Linder mr [place], MARILU Syed RN ca1 Liliana Biggs RN RN ld1 Huber Damon ad5 Corrections: (The following items were deleted from the chart) 15:44 15:42 Pulse 121bpm; Resp 20bpm; Pulse Ox 90% RA; Temp 97.8F Temporal; Height 5 ft. 7 ca1 in. Reported; Pain 0/10; ca1
--- NOTE | 2021-04-25 19:01 | EDPHYS ---
Physician Documentation [facility] Name: Leandro Rand Age: 50 yrs Sex: Male : 1970 Arrival Date: 04/25/2021 Time: 15:39 Bed 18 Private MD: ED Physician Dustin Saleh HPI: 04/25 19:15 This 50 yrs old Male presents to ER via Ambulatory with complaints of kb Vomiting/Diarrhea. 19:15 The patient presents to the emergency department with nausea, vomiting, diarrhea, kb abdominal pain. Onset: The symptoms/episode began/occurred 1 week(s) ago. Possible causes: sick contacts. The symptoms are aggravated by nothing. The symptoms are alleviated by nothing. Associated signs and symptoms: Pertinent positives: abdominal pain, diarrhea, nausea, vomiting, Pertinent negatives: fever. Severity of symptoms: At their worst the symptoms were moderate in the emergency department the symptoms are unchanged. The patient has not experienced similar symptoms in the past. The patient has not recently seen a physician. Pt c/o n/v/d and upper abd cramping/pain that started a week ago. States others in the household have had similar symptoms. Unable to tolerate anything by mouth today. Historical: - Allergies: 15:46 No Known Allergies; ca1 - Home Meds: 15:46 Lantus 100 unit/mL Sub-Q soln [Active]; Insulin: Novolin 70/30 Sub-Q [Active]; ca1 Metformin Oral [Active]; Lipitor 40 mg Oral tab 1 tab once daily [Active]; Eliquis oral oral [Active]; - PMHx: 15:46 Diabetes - NIDDM; Hyperlipidemia; Diabetes - IDDM; ca1 - PSHx: 15:46 None; ca1 - Immunization history:: Client reports receiving the 2nd dose of the Covid vaccine, Client reports receiving the 1st dose of the Covid vaccine, Flu vaccine is not up to date. - Social history:: Smoking status: Patient denies any tobacco usage or history of. ROS: 19:14 Constitutional: Negative for fever, chills, and weight loss. kb 19:14 Abdomen/GI: Positive for abdominal pain, nausea, vomiting, and diarrhea. 19:14 All other systems are negative. Exam: 19:14 Constitutional: This is a well developed, well nourished patient who is awake, alert, kb and in no acute distress. Head/Face: Normocephalic, atraumatic. ENT: Moist Mucous membranes Respiratory: Respirations even and unlabored. No increased work of breathing, no retractions or nasal flaring. Skin: Warm, dry with normal turgor. Normal color. MS/ Extremity: Pulses equal, no cyanosis. Neurovascular intact. Full, normal range of motion. Neuro: Awake and alert, GCS 15, oriented to person, place, time, and situation. Moves all extremities. Normal gait. Psych: Awake, alert, with orientation to person, place and time. Behavior, mood, and affect are within normal limits. 19:14 Abdomen/GI: Inspection: abdomen appears normal, Bowel sounds: normal, in all quadrants, Palpation: soft, in all quadrants, mild abdominal tenderness, in the right upper quadrant and left upper quadrant. Vital Signs: 15:42 Pulse 121; Resp 20; Temp 97.8(TE); Pulse Ox 90% on R/A; Weight 114.31 kg; Height 5 ft. ca1 7 in. (170.18 cm) (R); Pain 0/10; 15:46 BP 125 / 83; Pulse Ox 93% on R/A; ca1 16:17 BP 132 / 64; Pulse 115; Resp 25; Temp 97.9(O); Pulse Ox 95% on 3 lpm NC; Weight 114.3 ld1 kg; Height 6 ft. 0 in. (182.88 cm); Pain 0/10; 19:13 BP 147 / 74; Pulse 111; Resp 18 S; Pulse Ox 97% on NC; Pain 3/10; ad5 16:17 Body Mass Index 34.18 (114.30 kg, 182.88 cm) ld1 MDM: 15:48 Patient medically screened. kb 19:13 Data reviewed: vital signs, nurses notes. Data interpreted: Pulse oximetry: on room air kb is 97 %. Interpretation: normal. Counseling: I had a detailed discussion with the patient and/or guardian regarding: the historical points, exam findings, and any diagnostic results supporting the discharge/admit diagnosis, lab results, radiology results, the need for outpatient follow up, a family practitioner, a compressed gases tester, to return to the emergency department if symptoms worsen or persist or if there are any questions or concerns that arise at home. 04/25 15:48 Order name: Basic Metabolic Panel; Complete Time: 17:11 kb 04/25 15:48 Order name: CBC with Diff; Complete Time: 16:35 kb 04/25 15:48 Order name: Hepatic Function; Complete Time: 17:11 kb 04/25 15:48 Order name: Lipase; Complete Time: 17:11 kb 04/25 16:09 Order name: Chest Single View XRAY; Complete Time: 17:35 kb 04/25 17:12 Order name: US Abdomen Limited; Complete Time: 18:19 kb 04/25 15:48 Order name: IV Saline Lock; Complete Time: 15:52 kb 04/25 15:48 Order name: Labs collected and sent; Complete Time: 16:15 kb 04/25 18:20 Order name: PO challenge; Complete Time: 18:37 kb Administered Medications: 16:15 Drug: NS 0.9% 1000 ml Route: IV; Rate: 1000 ml; Site: right antecubital; sv 19:12 Follow up: IV Status: Completed infusion; IV Intake: 1000ml ad5 16:17 Drug: Zofran (Ondansetron) 4 mg Route: IVP; Site: right antecubital; ld1 19:12 Follow up: Response: No adverse reaction; Nausea is decreased ad5 16:54 Drug: morphine 4 mg Route: IVP; Site: right antecubital; ld1 17:15 Follow up: Response: No adverse reaction ld1 18:25 Drug: Potassium Chloride 40 mEq Route: PO; ld1 18:37 Follow up: Response: No adverse reaction ld1 Disposition: 04/26 06:40 Co-signature as Attending Physician, Dustin Saleh MD I agree with the assessment and kdr plan of care. Disposition: 04/25/21 19:00 Discharged to Home. Impression: Abnormal results of liver function studies, Nausea and vomiting, Diarrhea, unspecified. - Condition is Stable. - Discharge Instructions: Food Choices to Help Relieve Diarrhea, Adult, Viral Gastroenteritis, Adult, [id number], Nausea and Vomiting, Adult, [id number]. - Prescriptions for Bentyl 20 mg Oral Tablet - take 1 tablet by ORAL route every 6 hours As needed; 20 tablet. Zofran 4 mg Oral Tablet - take 1 tablet by ORAL route every 6 hours As needed; 20 tablet. - Medication Reconciliation Form, Thank You Letter, Antibiotic Education, Prescription Opioid Use form. - Follow up: Emergency Department; When: As needed; Reason: Worsening of condition. Follow up: Private Physician; When: 2 - 3 days; Reason: Recheck today's complaints, Continuance of care, Re-evaluation by your physician. Signatures: Dispatcher [employer] EDMS Belen Sandoval, DEBRA HENDERSON-Mirtha Barr RN RN Dustin Saleh MD MD [facility] Yahaira Yates RN RN [facility] Liliana Biggs RN RN ld1 Huber Damon ad5 Corrections: (The following items were deleted from the chart) 04/25 19:14 19:00 04/25/2021 19:00 Discharged to Home. Impression: Abnormal results of liver ad5 function studies; Nausea and vomiting; Diarrhea, unspecified. Condition is Stable. Forms are Medication Reconciliation Form, Thank You Letter, Antibiotic Education, Prescription Opioid Use. Follow up: Emergency Department; When: As needed; Reason: Worsening of condition. Follow up: Private Physician; When: 2 - 3 days; Reason: Recheck today's complaints, Continuance of care, Re-evaluation by your physician. kb
[2021-04-25 19:25] VITALS: TEMP 97.9
[2021-04-25 19:27] VITALS: BP 147/74; O2SAT 97
== END 2021-04-25 19:14 | disposition home or self-care (01) ==
LOC: ER 15:35
DX: R94.5 Abnormal results of liver function studies (principal); R19.7 Diarrhea, unspecified; E11.9 Type 2 diabetes mellitus without complications; E78.5 Hyperlipidemia, unspecified; Z79.4 Long term (current) use of insulin; Z79.01 Long term (current) use of anticoagulants
CPT/HCPCS: 36415; 71045; 76705; 80048; 80076; 83690; 85025; 96361; 96374; 96375; 99284; J2405; J7030

== ENCOUNTER 2021-06-24 17:21 | Emergency (ER) | payer SELFPAY ==
[2021-06-24 19:30] LABS: Absolute Lymphocytes (CBC) 2.1 K/uL (0.7-4.9); Basophils % 1.1 % (0-1.3); Hematocrit 44.4 % (39.6-49.0); Lymphocytes % 30.9 % (15.3-44.8); RBC Red Blood Cell Count 5.08 M/uL (4.33-5.43)
[2021-06-24 19:47] LABS: ALT/SGPT 156 U/L (12-78); AST/SGOT 89 U/L (15-37); Albumin 3.5 g/dL (3.4-5.0); Alkaline Phosphatase 156 U/L (45-117); BUN Blood Urea Nitrogen 6 mg/dL (7-18); Bicarbonate 27 mmol/L (21-32); Bilirubin Direct 0.2 mg/dL (0-0.2); Bilirubin Total 0.7 mg/dL (0.2-1.0); Glucose Level 270 mg/dL (74-106); Lipase 75 U/L (73-393); Protein, Total 7.8 g/dL (6.4-8.2); Sodium Level 135 mmol/L (136-145); Troponin (Emerg Dept Use Only) < 0.02 ng/mL (0.0-0.045)
[2021-06-24 19:51] LABS: Potassium 2.6 mmol/L (3.5-5.1)
[2021-06-24] MEDS ORDERED: NA CHLORIDE 0.9% 1,000 ML ONE (19:53)
[2021-06-24] MEDS ORDERED: ONDANSETRON 4 MG/2 ML VIAL ONE (19:53)
[2021-06-24] MEDS ORDERED: MORPHINE 4 MG/ML SYR ONE (20:00)
[2021-06-24] MEDS ORDERED: POTASSIUM CL SA 10 MEQ TAB PO ONE (20:25)
--- NOTE | 2021-06-24 21:12 | RAD REPORT ---
EXAM DESCRIPTION: CT - Abdomen Pelvis W Contrast - 06/24/2021 8:33 pm CLINICAL HISTORY: abdominal pain, vomting COMPARISON: No comparisons TECHNIQUE: Biphasic, helical CT imaging of the abdomen and pelvis was performed following 100 ml non -ionic IV contrast. No oral contrast administered. All CT scans are performed using dose optimization technique as appropriate and may include automated exposure control or mA/KV adjustment according to patient size. FINDINGS: No suspicious findings in the lung bases. A very pronounced fatty infiltration pattern is present with no focal liver lesion identified. No gal lbladder or biliary tree abnormality. Spleen and pancreas show no suspicious findings. No portal vein abnormality identified. Symmetric renal function is seen with no hydronephrosis or suspicious renal mass. No pyelonephritis o r acute parenchymal process. No bladder abnormalities. No adrenal abnormalities. No dilated bowel loops or bowel wall thickening. Appendix is normal. No free air, free fluid or infla mmatory stranding. No hernia, mass or bulky lymphadenopathy. No suspicious bony findings. IMPRESSION: Contrast enhanced CT abdomen and pelvis showing no acute or emergent finding. Pronounced fatty infiltration of the liver.
[2021-06-24 22:04] LABS: Urine Blood Negative (Negative); Urine Glucose 1+ (Negative); Urine Protein 1+ (Negative)
--- NOTE | 2021-06-25 17:43 | EDPHYS ---
Physician Documentation [facility] Name: Leandro Rand Age: 50 yrs Sex: Male : 1970 Arrival Date: 06/24/2021 Time: 17:24 Bed 19 Private MD: ED Physician Nicholas Santoyo HPI: 06/24 23:02 This 50 yrs old Male presents to ER via Ambulatory with complaints of Vomiting.jmm 23:02 The patient presents to the emergency department with vomiting. Onset: The jmm symptoms/episode began/occurred gradually, 3 day(s) ago. Possible causes: unknown. The symptoms are aggravated by nothing. The symptoms are alleviated by nothing. Associated signs and symptoms: Pertinent positives: abdominal pain, Pertinent negatives: fever. This is a 50-year-old male with history of diabetes mellitus, hyperlipidemia presents emerged part with complaints of left-sided abdominal pain, vomiting began approximately 3 days ago. Patient was prescribed Macrobid for a UTI and antiemetics. Patient states the patient has little relief with these.. 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 - Social history:: Smoking status: Patient denies any tobacco usage or history of. Patient uses alcohol. ROS: 23:02 Constitutional: Negative for fever, chills, and weight loss, Cardiovascular: Negative jmm for chest pain, palpitations, and edema, Respiratory: Negative for shortness of breath, cough, wheezing, and pleuritic chest pain. 23:06 All other systems are negative. jmm Exam: 23:06 Constitutional: This is a well developed, well nourished patient who is awake, alert, jmm and in no acute distress. Head/Face: atraumatic. Eyes: EOMI, no conjunctival erythema appreciated ENT: Moist Mucus Membranes Neck: Trachea midline, Supple Chest/axilla: Normal chest wall appearance and motion. Cardiovascular: Regular rate and rhythm. No edema appreciated Respiratory: Normal respirations, no respiratory distress appreciated 23:06 Skin: General appearance color normal MS/ Extremity: Moves all extremities, no obvious deformities appreciated, no edema noted to the lower extremities Neuro: Awake and alert, normal gait Psych: Behavior is normal, Mood is normal, Patient is cooperative and pleasant 23:06 Abdomen/GI: Inspection: obese Bowel sounds: normal, Palpation: soft, mild abdominal tenderness, in the left upper quadrant. Vital Signs: 18:28 BP 116 / 88; Pulse 91; Resp 20; Temp 98.4(O); Pulse Ox 91% on R/A; Weight 113.85 kg kg (M); Height 5 ft. 7 in. (170.18 cm); Pain 8/10; 19:44 BP 118 / 76; Pulse 111; Resp 18 S; Pulse Ox 94% ; ad5 20:30 BP 133 / 72; Pulse 110; Resp 18 S; Pulse Ox 96% ; ad5 21:38 BP 131 / 77; Pulse 110; Resp 18 S; Pulse Ox 94% ; ad5 23:03 BP 152 / 89; Pulse 112; Resp 18; Pulse Ox 96% ; ad5 18:28 Body Mass Index 39.31 (113.85 kg, 170.18 cm) kg MDM: 18:59 Patient medically screened. [facility] 23:07 Data reviewed: vital signs, nurses notes. Counseling: I had a detailed discussion with rita the patient and/or guardian regarding: the historical points, exam findings, and any diagnostic results supporting the discharge/admit diagnosis, lab results, radiology results, the need for outpatient follow up, to return to the emergency department if symptoms worsen or persist or if there are any questions or concerns that arise at home. ED course: Patient is able to tolerate p.o. in the ED. Patient states he feels much better. Patient is encouraged to follow-up with GI due to abnormal LFTs and fatty liver findings. Patient is otherwise given strict return precautions. Patient understood and agrees with plan of care.. 06/24 18:59 Order name: Basic Metabolic Panel; Complete Time: 19:55 [facility] 06/24 18:59 Order name: CBC with Diff; Complete Time: 19:34 [facility] 06/24 18:59 Order name: Hepatic Function; Complete Time: 19:55 [facility] 06/24 18:59 Order name: Lipase; Complete Time: 19:55 [facility] 06/24 18:59 Order name: Troponin (emerg Dept Use Only); Complete Time: 19:55 [facility] 06/24 22:03 Order name: Urine Dipstick-Ancillary; Complete Time: 22:06 [facility] 06/24 18:59 Order name: IV Saline Lock; Complete Time: 19:42 [facility] 06/24 18:59 Order name: Labs collected and sent; Complete Time: 19:42 [facility] 06/24 18:59 Order name: Urine Dipstick-Ancillary (obtain specimen); Complete Time: 22:05 [facility] 06/24 19:00 Order name: CT Abd/Pelvis - IV Contrast Only; Complete Time: 21:14 [facility] Administered Medications: 19:41 Drug: morphine 4 mg Route: IVP; Site: right wrist; ad5 20:26 Follow up: Response: No adverse reaction; Pain is decreased; RASS: Alert and Calm (0) ad5 19:42 Drug: NS 0.9% 1000 ml Route: IV; Rate: 1 bolus; Site: right wrist; ad5 23:03 Follow up: IV Status: Completed infusion; IV Intake: 1000ml ad5 19:42 Drug: Zofran (Ondansetron) 4 mg Route: IVP; Site: right wrist; ad5 20:26 Follow up: Response: No adverse reaction; Nausea is decreased ad5 20:15 Drug: Potassium Chloride 40 mEq Route: PO; ad5 21:39 Follow up: Response: No adverse reaction ad5 Disposition: 06/25 06:04 Co-signature as Attending Physician, Nicholas Santoyo MD. rn Disposition Summary: 06/24/21 23:09 Discharge Ordered Location: Home [facility] Condition: Stable [facility] Diagnosis - Vomiting jmm - Hypokalemia [facility] Followup: [facility] - With: Subhash Ross MD - When: 2 - 3 days - Reason: Recheck today's complaints, Continuance of care, Re-evaluation by your physician Discharge Instructions: - Discharge Summary Sheet jmm - Potassium Content of Foods jmm - Hypokalemia jm Forms: - Medication Reconciliation Form [facility] - Thank You Letter jmm - Antibiotic Education jmm - Prescription Opioid Use jmm Prescriptions: - ondansetron 4 mg Oral tablet,disintegrating - place 1 tablet by TRANSLINGUAL route every 4-6 hours; 20 tablet; Refills: 0, [facility] Product Selection Permitted Signatures: Dispatcher [employer] Scott Amos PA PA Nicholas Hope MD MD rn Graham, Kristen, RN RN kg Davidson, Andrea ad5
--- NOTE | 2021-06-25 17:43 | ER ---
Nurse's Notes [facility] Name: Leandro Rand Age: 50 yrs Sex: Male : 1970 Arrival Date: 06/24/2021 Time: 17:24 Bed 19 Private MD: Diagnosis: Vomiting;Hypokalemia Presentation: 06/24 18:28 Chief complaint: Patient states: Chills, vomiting, headache, body ache x 1 wk, unable kg to keep anything down x 3 days. Went to PCP on Thursday and diagnosed with UTI. Started Nitrofurantoin 06/21. Coronavirus screen: Client denies travel out of the [place] in the last 14 days. At this time, unable to obtain information related to travel outside the [place] Client presents with at least one sign or symptom that may indicate coronavirus-19. Standard/surgical mask placed on the client. Provider contacted for isolation considerations. Ebola Screen: Patient negative for fever greater than or equal to 101.5 degrees Fahrenheit, and additional compatible Ebola Virus Disease symptoms Patient denies exposure to infectious person. Patient denies travel to an Ebola-affected area in the 21 days before illness onset. Initial Sepsis Screen: Does the patient meet any 2 criteria? HR > 90 bpm. Does the patient have a suspected source of infection? Yes: Dysuria/Frequency/Urgency/UTI. Risk Assessment: Do you want to hurt yourself or someone else? Patient reports no desire to harm self or others. Onset of symptoms was June 17, 2021. 18:28 Method Of Arrival: Ambulatory kg 18:28 Acuity: FELI 3 kg 18:35 Chief complaint:. kg Triage Assessment: 18:32 General: Appears in no apparent distress. Behavior is calm, cooperative, appropriate kg for age, quiet. Pain: Complains of pain in left back, left flank, abdomen. GI: Reports diarrhea, nausea, vomiting. 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 - Social history:: Smoking status: Patient denies any tobacco usage or history of. Patient uses alcohol. Screenin:36 Abuse screen: Denies threats or abuse. Denies injuries from another. Nutritional kg screening: No deficits noted. Tuberculosis screening: No symptoms or risk factors identified. Fall Risk None identified. No fall in past 12 months (0 pts). No secondary diagnosis (0 pts). IV access (20 points). Ambulatory Aid- None/Bed Rest/Nurse Assist (0 pts). Gait- Normal/Bed Rest/Wheelchair (0 pts) Mental Status- Oriented to own ability (0 pts). Total Marina Fall Scale indicates No Risk (0-24 pts). Assessment: 19:42 General: Appears in no apparent distress. Behavior is calm, cooperative, appropriate ad5 for age. Pain: Complains of pain in lower back, LLQ. Cardiovascular: Capillary refill < 3 seconds Patient's skin is warm and dry. Rhythm is regular. Respiratory: Airway is patent Respiratory effort is even, unlabored, Respiratory pattern is regular, symmetrical. GI: Abdomen is round Bowel sounds present X 4 quads. Abd is soft and non tender Reports lower abdominal pain, diarrhea, nausea, vomiting. : Reports decreased urine output since dx with "UTI", pt S.O. reports pt with n/v since . Derm: Skin is pink, warm \\T\\ dry. 20:45 Reassessment: Patient appears in no apparent distress at this time. No changes from ad5 previously documented assessment. Patient is alert, oriented x 3, equal unlabored respirations, skin warm/dry/pink. 21:37 Reassessment: Patient appears in no apparent distress at this time. No changes from ad5 previously documented assessment. Patient and/or family updated on plan of care and expected duration. Pain level reassessed. Patient states symptoms have improved. 23:02 Reassessment: Patient appears in no apparent distress at this time. No changes from ad5 previously documented assessment. Patient and/or family updated on plan of care and expected duration. Pain level reassessed. Vital Signs: 18:28 BP 116 / 88; Pulse 91; Resp 20; Temp 98.4(O); Pulse Ox 91% on R/A; Weight 113.85 kg kg (M); Height 5 ft. 7 in. (170.18 cm); Pain 8/10; 19:44 BP 118 / 76; Pulse 111; Resp 18 S; Pulse Ox 94% ; ad5 20:30 BP 133 / 72; Pulse 110; Resp 18 S; Pulse Ox 96% ; ad5 21:38 BP 131 / 77; Pulse 110; Resp 18 S; Pulse Ox 94% ; ad5 23:03 BP 152 / 89; Pulse 112; Resp 18; Pulse Ox 96% ; ad5 18:28 Body Mass Index 39.31 (113.85 kg, 170.18 cm) kg ED Course: 17:24 Patient arrived in ED. mr 18:32 Triage completed. kg 18:36 Patient has correct armband on for positive identification. kg 18:41 Scott Mann PA is PHCP. jmm 18:41 Nicholas Santoyo MD is Attending Physician. jmm 19:29 Huber Damon is Primary Nurse. ad5 19:42 Patient has correct armband on for positive identification. Bed in low position. Call ad5 light in reach. Side rails up X2. Pulse ox on. NIBP on. Door closed. Noise minimized. Warm blanket given. Head of bed lowered. 19:42 No provider procedures requiring assistance completed. Initial lab(s) drawn, by me, ad5 sent to lab. Inserted saline lock: 20 gauge in right wrist, using aseptic technique. Blood collected. 19:54 Notified Nurse Practitioner and/or Physician Engineer Systems of a critical lab result(s), K: ad5 2.6. 20:26 CT Abd/Pelvis - IV Contrast Only Sent. ad5 20:32 CT Abd/Pelvis - IV Contrast Only In Process Unspecified. EDMS 23:08 Subhash Ross MD is Referral Physician. jmm 23:24 IV discontinued, intact, bleeding controlled, No redness/swelling at site. Pressure ad5 dressing applied. Administered Medications: 19:41 Drug: morphine 4 mg Route: IVP; Site: right wrist; ad5 20:26 Follow up: Response: No adverse reaction; Pain is decreased; RASS: Alert and Calm (0) ad5 19:42 Drug: NS 0.9% 1000 ml Route: IV; Rate: 1 bolus; Site: right wrist; ad5 23:03 Follow up: IV Status: Completed infusion; IV Intake: 1000ml ad5 19:42 Drug: Zofran (Ondansetron) 4 mg Route: IVP; Site: right wrist; ad5 20:26 Follow up: Response: No adverse reaction; Nausea is decreased ad5 20:15 Drug: Potassium Chloride 40 mEq Route: PO; ad5 21:39 Follow up: Response: No adverse reaction ad5 Intake: 23:03 IV: 1000ml; Total: 1000ml. ad5 Outcome: 23:09 Discharge ordered by . rita 23:24 Discharged to home ambulatory, with significant other. ad5 23:24 Condition: stable 23:24 Discharge instructions given to patient, significant other, Instructed on discharge instructions, follow up and referral plans. medication usage, Demonstrated understanding of instructions, follow-up care, medications, Prescriptions given X 1. 23:24 Patient left the ED. ad5 Signatures: Dispatcher [employer] EDMS Scott Mann PA PA jmm Rivera, Mary mr Dianne Edmond RN RN kg Huber Damon ad5 Corrections: (The following items were deleted from the chart) 18:36 18:28 Chief complaint: Patient states: Chills, vomiting, headache, body ache x 1 wk. kg Went to PCP on Thursday and diagnosed with UTI. kg
[2021-06-26 15:21] VITALS: TEMP 98.4
[2021-06-26 15:28] VITALS: BP 152/89; O2SAT 96
== END 2021-06-24 23:24 | disposition home or self-care (01) ==
LOC: ER 17:21
DX: E87.6 Hypokalemia (principal); E11.9 Type 2 diabetes mellitus without complications; E78.5 Hyperlipidemia, unspecified; Z79.4 Long term (current) use of insulin; Z86.16 Personal history of COVID-19
CPT/HCPCS: 36415; 74177; 80048; 80076; 81003; 83690; 84484; 85025; J2405; J7030; Q9967

== ENCOUNTER 2022-02-19 19:03 | Inpatient (IN) | payer OTHER, SELFPAY ==
--- OUTSIDE RECORDS SUMMARY | 2022-02-19 19:06 | XMS REPORT | Continuity of Care Document ---
:1970 Author Organization [facility] t Address [address] [place] [address] Care Team Providers Name Role Phone Natacha Somers Primary Care Physician Billy ARRIETA, Dustin Asher Attending Clinician Scottie ARRIETA, Isac Attending Clinician Problems Condition Condition Condition Status Onset Resolution Last Treating Co mments Source Name Details Category Date Date Treatment Clinician Date No known No known Disease Unive rs active active ity of problems problems [facility] Allergies, Adverse Reactions, Alerts This patient has no known allergies or adverse reactions. Social History Social Habit Start Date Stop Date Quantity Comments Source History of Smoker [facility] tobacco use [facility] Exposure to Not sure [facility] SARS-CoV-2 [facility] (event) [place] Tobacco use and 2021-09-30 2021-09-30 Never used Universit y of exposure 00:00:00 00:00:00 [facility] Alcohol intake 2021-09-30 2021-09-30 Ex-drinker [facility] 00:00:00 00:00:00 (finding) [facility] Sex Ass[birth year] At [birth year] [facility] 00:00:00 00:00:00 [facility] Smoking Status Start Date Stop Date Source Former smoker 2021-09-30 00:00:00 2021-09-30 00:00:00 [facility] Medications Ordered Filled Start Stop Current Ordering Indication Dosage Frequency Signature Comments Components Source Medication Medication Date Date Medication? Clinician (SIG) Name Name esomeprazol 2020-11 Take by U nivers e magnesium 11-30 mouth. ity o f (NEXIUM 14:20: 00:00 [place] ORAL) 21 :00 [facility] insulin 2020-11 Yes inject Univers glargine,hu 11-30 under the ity of m.rec.anlog 13:40: skin. [place] (TOUJEO [address] [place] [address] SOLOSTAR Branch U-300 INSULIN SC) sitagliptin 2020-11 Yes Take by Un ko phosphate 11-30 mouth. ity of (JANUVIA 13:40: [place] ORAL) [address] [place] [address] Branch atorvastati 2020-11 Yes Take by Un ko n calcium 11-30 mouth. ity of (LIPITOR 13:40: [place] ORAL) [address] [place] [address] Branch METOPROLOL 2020-11 Yes Take by Uni vers TARTRATE 11-30 mouth. ity of ORAL 13:40: [address] aspirin 81 2020-11 Yes 81mg Take 81 mg U nivers mg chewable 11-30 by mouth ity of tablet 13:40: daily. [address] insulin 2020-11 Yes inject Univers glargine,hu 11-30 under the ity of m.rec.anlog 13:40: skin. [place] (LANTUS [place]) [address] [place] [address] pantoprazol 2020-11 Yes [id number] 40mg Take 1 Univers e 40 mg EC 11-30 tablet by ity of tablet 00:00: mouth 2 [place] 00 (two) Medical times Branch daily. sucralfate Yes [id number] 1g Take 1 U nivers 1 gram 8-03 tablet by ity of tablet 00:00: mouth [place] 00 before Medical meals and Branch at bedtime. ondansetron Yes [id number] 4mg Take 1 Univers (ZOFRAN 8-03 tablet by ity of ODT) 4 mg 00:00: mouth [place] disintegrat 00 every 8 Medic al ing tablet (eight) Branch hours as needed for Nausea and Vomiting (N/V). Vital Signs Vital Name Observation Time Observation Value Comments Source Systolic blood 2021-09-30 18:36:00 125 mm[Hg] Univer sity of pressure [facility] Diastolic blood 2021-09-30 18:36:00 81 mm[Hg] Unive rsity of pressure [facility] Heart rate 2021-09-30 18:36:00 120 /min [facility] Body temperature 2021-09-30 18:36:00 36.61 Chen Univ ersity of [facility] Body height 2021-09-30 18:36:00 170.2 cm [facility] Body weight 2021-09-30 18:36:00 99.066 kg [facility] BMI 2021-09-30 18:36:00 34.21 kg/m2 [facility] Oxygen saturation in 2021-09-30 18:36:00 93 /min [facility] Arterial blood by [facility] Pulse oximetry Branch Procedures This patient has no known procedures. Encounters Start End Encounter Admission Attending Care Care Encounter Source Date/Time Date/Time Type Type Clinicians Facility Department ID 2021-09-30 2021-09-30 Office Dustin Cervantes RUST 1.2.[id number] [facility] 13:25:55 13:55:55 Visit [id number] [place] [facility] AT [phone] [place] [address] [facility] Results Test Description Test Time Test Comments Results Result Comments Source COMPREHENSIVE METABOLIC PANEL 2021-12-20 04:51:05 Test Item Value Reference Range Interpretation Comme nts GLUCOSE (test code = 2217) 299 MG/DL 70-99 H BUN (test code = 2208) 15 MG/DL 6-20 CREATININE (test code = 0.67 MG/DL 0.80-1.40 L 2213) eGFR (2020 CKD-EPI) (test 114 ML/MIN/1.73 >60 code = 45366) CALC BUN/CREAT (test code = 22 RATIO 6-28 2235) SODIUM (test code = 2231) 143 MEQ/L 133-146 POTASSIUM (test code = 2228) 4.1 MEQ/L 3.5-5.4 CHLORIDE (test code = 2215) 105 MEQ/L 95-107 CARBON DIOXIDE (test code = 26 MEQ/L -2205) CALCIUM (test code = 2209) 9.3 MG/DL 8.5-10.5 PROTEIN, TOTAL (test code = 6.5 G/DL 6.1-8.3 2228) ALBUMIN (test code = 2201) 4.0 G/DL 3.5-5.2 CALC GLOBULIN (test code = 2.5 G/DL 1.9-3.7 2239) CALC A/G RATIO (test code = 1.6 RATIO 1.0-2.6 2233) BILIRUBIN, TOTAL (test code 0.5 MG/DL See_Comment [Automated message] The = 2206) system which ge nerated this result transmit brad reference range : <=1.2. The reference range was not used to interpr et this result as alicia l/abnormal. ALKALINE PHOSPHATASE (test 111 U/L 40-118 code = 2204) AST (test code = 2218) 33 U/L 9-50 ALT (test code = 2219) 76 U/L 5-50 H LIPID [id number] 04:51:05 Test Item Value Reference Range Interpretation Comments CHOLESTEROL (test 213 MG/DL <200 H code = 2210) TRIGLYCERIDES (test 119 MG/DL <150 code = 2232) HDL CHOLESTEROL (test 77 MG/DL >39 code = 2220) CALC LDL CHOL (test 113 MG/DL <100 H NOTE: C ALCULATED LDL code = 2237) IS BASED ON DANIEL-BREWER METHOD WHICHINCLUDES ADJUSTABLE TRIGLYCERIDE:VL DL CHOLESTEROL RAT IO.THIS FACTOR VARIES B Y MEASURED TRIGLY CERIDE AND NON-HDLCHOL ESTEROL CONCENTRATIONS WITH INCREASED CALCU LATED LDL SEENIN HIGH ER TRIGLYCERIDE OR LOWER NON-HDL SPECIME NS. FOR MOREINFORMATION , SEE CLIENT ANNOUNCE MENT AT [email or web address] [email or web address] RATIO LDL/HDL 1.47 RATIO <3.55 UN LESS (test code = 2238) OTHERWISE INDICATED, ALL TESTING PER FORMED [facility], I [place]. [address] [place] [address] LABORATORY DIRE CTOR: Jacky MONTENEGRO NUMBER [id number] CAP ACCREDITATION N O. [id number] HEMOGLOBIN [id number] 02:53:45 Test Item Value Reference Range Interpretation Comments HEMOGLOBIN A1c (test 10.6 % 4.2-5.6 H [facility] code = 43280) ASSOCIATION IDELINES FOR HGB A1C: PREDIABETES/INC REASED RISK . . . . . . . 5 .7-6.4% DIAGNOSIS O F DIABETES . . . . . . . . . >=6.5% WITH CO NFIRMATION OR APPROPRIATE SYMPTOMS NOTE: ASSAY MA Y BE AFFECTED BY HEMOGLOBINOPATH IES (SICKLE CELL ANEMIA, S-C DISEASE, OTHERS ) OR ARTIFICIALLY LO WERED BY DECREASED RED C ELL SURVIVAL (HEMOLYTIC ANEM IAS, BLOOD LOSS, ETC.) . CONSIDER ALTERNATE TESTI NG OR LABORATORY CONS ULTATION.
[2022-02-19 19:59] LABS: Absolute Lymphocytes (CBC) 1.5 K/uL (0.7-4.9); Hematocrit 40.4 % (39.6-49.0); MPV 6.8 fL (7.6-11.3); RBC Red Blood Cell Count 4.66 M/uL (4.33-5.43)
[2022-02-19 20:06] LABS: Protime INR 0.97
--- NOTE | 2022-02-19 20:20 | RAD REPORT ---
EXAM DESCRIPTION: RAD - Chest Single View - 02/19/2022 7:57 pm CLINICAL HISTORY: FEVER COMPARISON: Portable 04/25/2021 TECHNIQUE: AP portable chest image was obtained 02/19/2022 7:57 pm . FINDINGS: Large body habitus, shallow inspiration and under penetrated portable technique significan tly limit the examination. No peripheral mass consolidation. Heart, vasculature and lung markings are not outside of normal rang e for exam limitations. Trachea is midline. No measurable pleural effusion and no pneumothorax. No ac sajan bony abnormality seen. No acute aortic findings suspected. IMPRESSION: Limited portable study without acute cardiopulmonary finding. Exam limitations could mask interstitial edema or infiltrate.
[2022-02-19 20:23] LABS: ALT/SGPT 114 U/L (12-78); Albumin 3.3 g/dL (3.4-5.0); Alkaline Phosphatase 78 U/L (45-117); BUN Blood Urea Nitrogen 10 mg/dL (7-18); Bicarbonate 31 mmol/L (21-32); Bilirubin Total 1.2 mg/dL (0.2-1.0); Glucose Level 142 mg/dL (74-106); Protein, Total 7.2 g/dL (6.4-8.2); Sodium Level 138 mmol/L (136-145)
[2022-02-19 20:25] LABS: AST/SGOT 78 U/L (15-37); Potassium 4.2 mmol/L (3.5-5.1)
[2022-02-19 20:27] LABS: Urine Blood Negative (Negative); Urine Glucose Negative (Negative); Urine Protein Negative (Negative); Urine Specific Gravity 1.025 (1.005-1.030); Urine pH 5.5 (5.0-7.0)
[2022-02-19 21:02] LABS: Urine Bacteria <20 /HPF (NONE SEEN)
[2022-02-19 21:03] LABS: Urine RBC NONE SEEN /HPF (NONE SEEN)
[2022-02-19 21:28] LABS: SARS-COV-2 RT PCR NEGATIVE (NEGATIVE)
[2022-02-19] MEDS ORDERED: FUROSEMIDE 40 MG/4 ML VIAL ONE (22:37)
[2022-02-19] MEDS ORDERED: ONDANSETRON 4 MG/2 ML VIAL ONE (22:46)
[2022-02-19] MEDS ORDERED: FENTANYL CITR 100 MCG/2 ML ONE (22:46)
[2022-02-19 23:37] LABS: Thyroid Stimulating Hormone 1.68 uIU/mL (0.360-3.740)
--- NOTE | 2022-02-20 00:36 | ER ---
Nurse's Notes [facility] Name: Leandro Rand Age: 51 yrs Sex: Male : 1970 Arrival Date: 02/19/2022 Time: 19:08 Bed 4 Private MD: Diagnosis: Anasarca;Acute respiratory failure with hypoxia Presentation: 02/19 19:19 Chief complaint: Spouse and/or significant other states: "he's real swollen, having a ab2 hard time catching his breath and has high blood pressure.". Coronavirus screen: Vaccine status: Patient reports receiving the 2nd dose of the covid vaccine. Client denies travel out of the [place] in the last 14 days. difficulty breathing, shortness of breath, Client presents with at least one sign or symptom that may indicate coronavirus-19. Standard/surgical mask placed on the client. Provider contacted for isolation considerations. Ebola Screen: Patient negative for fever greater than or equal to 101.5 degrees Fahrenheit, and additional compatible Ebola Virus Disease symptoms Patient denies exposure to infectious person. Patient denies travel to an Ebola-affected area in the 21 days before illness onset. No symptoms or risks identified at this time. Initial Sepsis Screen: Does the patient meet any 2 criteria? RR > 20 per min. HR > 90 bpm. Yes Does the patient have a suspected source of infection? No. Patient's initial sepsis screen is negative. Risk Assessment: Do you want to hurt yourself or someone else? Patient reports no desire to harm self or others. Onset of symptoms is unknown. 19:19 Method Of Arrival: Ambulatory ab2 19:19 Acuity: FELI 3 ab2 Triage Assessment: 19:22 General: Appears in no apparent distress. uncomfortable, Behavior is calm, cooperative, ab2 appropriate for age. Respiratory: Reports shortness of breath Onset: The symptoms/episode began/occurred gradually, the patient has mild shortness of breath. Historical: - Allergies: 19:21 No Known Allergies; ab2 - PMHx: 19:21 COVID-19; Diabetes - IDDM; Diabetes - NIDDM; Hyperlipidemia; ab2 - PSHx: 19:21 Left first finger amputation; ab2 - Immunization history:: Adult Immunizations up to date. - Social history:: Smoking status: Patient denies any tobacco usage or history of. Screenin:03 Abuse screen: Denies threats or abuse. Denies injuries from another. Nutritional lg3 screening: No deficits noted. Tuberculosis screening: No symptoms or risk factors identified. Fall Risk None identified. Assessment: 19:22 Pain: Denies pain. Cardiovascular: Reports shortness of breath. Respiratory: Airway is ab2 patent Respiratory effort is labored. 19:51 General: Accu-Check 138. lg3 19:59 General: Appears in no apparent distress. uncomfortable, Behavior is calm, cooperative, lg3 flat. Pain: Denies pain. Neuro: No deficits noted. Level of Consciousness is awake, alert, obeys commands, Oriented to person, place, time, situation. Cardiovascular: Reports shortness of breath. Cardiovascular: Rhythm is sinus tachycardia. Respiratory: Airway is patent Trachea midline Respiratory effort is even, labored, Respiratory pattern is regular, tachypnea. GI: Abdomen is round non-distended. : No deficits noted. No signs and/or symptoms were reported regarding the genitourinary system. EENT: No deficits noted. No signs and/or symptoms were reported regarding the EENT system. Derm: No deficits noted. No signs and/or symptoms reported regarding the dermatologic system. Skin is intact, Skin is dry, generalized swelling. Musculoskeletal: No deficits noted. No signs and/or symptoms reported regarding the musculoskeletal system. Circulation, motion, and sensation intact. Range of motion: intact in all extremities. 23:09 Reassessment: Patient appears in no apparent distress at this time. No changes from lg3 previously documented assessment. Patient and/or family updated on plan of care and expected duration. Pain level reassessed. Patient is alert, oriented x 3, equal unlabored respirations, skin warm/dry/pink. Respiratory: Breath sounds with crackles bilaterally. Vital Signs: 19:19 BP 163 / 118; Pulse 108; Resp 26; Temp 99.7(TE); Pulse Ox 84% on R/A; Weight 122.47 kg; ab2 Height 5 ft. 7 in. (170.18 cm); Pain 0/10; 19:59 BP 157 / 76; Pulse 101; Resp 22 S; Pulse Ox 100% on 4 lpm NC; lg3 23:09 BP 144 / 65; Pulse 112; Resp 21 S; Pulse Ox 98% on 10% Non-rebreather mask; lg3 19:19 Body Mass Index 42.29 (122.47 kg, 170.18 cm) ab2 ED Course: 19:08 Patient arrived in ED. ja2 19:21 Triage completed. ab2 19:23 Arm band placed on right wrist. ab2 19:25 Toni Gilbert PA is PHCP. jr8 19:25 Cholo Sutton MD is Attending Physician. jr8 19:42 Christine Lechuga, RN is Primary Nurse. lg3 19:47 Blood Culture Adult (2) Sent. lg3 19:47 CBC with Diff Sent. lg3 19:47 CMP Sent. lg3 19:47 Lactate Sent. lg3 19:47 Protime (+inr) Sent. lg3 19:47 Ptt, Activated Sent. lg3 19:59 Chest Single View XRAY In Process Unspecified. EDMS 20:04 Patient has correct armband on for positive identification. Bed in low position. Call lg3 light in reach. Side rails up X2. appliance fixer on. Pulse ox on. NIBP on. Door closed. Noise minimized. Warm blanket given. 20:05 Blood Culture Adult (2) Sent. lg3 20:05 CMP Sent. lg3 20:05 Lactate Sent. lg3 20:05 Protime (+inr) Sent. lg3 20:05 Ptt, Activated Sent. lg3 20:47 COVID-19/FLU A+B (Document "Date of Onset" if Symptomatic) Sent. lg3 20:52 COVID-19/FLU A+B (Document "Date of Onset" if Symptomatic) Sent. cs9 22:48 Inserted saline lock: 20 gauge in right antecubital area, using aseptic technique. lg3 Blood collected. 23:08 Taylor cath inserted, using sterile technique, 18 Fr., by ne, balloon inflated, to lg3 gravity drainage. 02/20 00:34 Reyna Chester MD is Hospitalizing Provider. jr8 06:19 No provider procedures requiring assistance completed. Patient admitted, IV remains in lg3 place. Administered Medications: 02/19 22:39 Drug: Lasix (furosemide) 80 mg Route: IVP; Site: right antecubital; lg3 22:40 Follow up: Response: No adverse reaction lg3 22:47 Drug: Zofran (Ondansetron) 4 mg Route: IVP; Site: right antecubital; lg3 22:48 Follow up: Response: No adverse reaction lg3 22:47 Drug: fentaNYL (PF) 50 mcg Route: IVP; Site: right antecubital; lg3 22:47 Follow up: Response: No adverse reaction; RASS: Alert and Calm (0) lg3 Outcome: 02/20 00:35 Decision to Hospitalize by Provider. jr8 06:19 Admitted to ICU lg3 06:19 Condition: stable 06:19 Instructed on the need for admit. 21:08 Patient left the ED. lg3 Signatures: Dispatcher [employer] EDMS Toni Gilbert PA PA jr8 Christine Lechuga RN RN lg3 Julianne Heaton Christine 9 Kal Blake2 Corrections: (The following items were deleted from the chart) 02/19 20:03 19:59 BP 157 / 76; Pulse 101bpm; Resp 22bpm; Spontaneous; Pulse Ox 100% 6 lpm Nasal lg3 Cannula; lg3
--- NOTE | 2022-02-20 00:36 | EDPHYS ---
Physician Documentation [facility] Name: Leandro Rand Age: 51 yrs Sex: Male : 1970 Arrival Date: 02/19/2022 Time: 19:08 Bed 4 Private MD: ED Physician Cholo Sutton HPI: 02/19 23:05 This 51 yrs old Male presents to ER via Ambulatory with complaints of jr8 Breathing Difficulty, Swelling, High Blood Pressure. 23:05 The patient has shortness of breath at rest. Onset: The symptoms/episode began/occurred jr8 suddenly. Duration: The symptoms are continuous. The patient's shortness of breath is aggravated by light activity. Associated signs and symptoms: Pertinent positives: edema. Severity of symptoms: At their worst the symptoms were moderate in the emergency department the symptoms are unchanged. The patient has not experienced similar symptoms in the past. The patient has not recently seen a physician. This is a 51-year-old patient with a history of diabetes, high blood pressure, hyperlipidemia the presented emergency room with complaints of shortness of breath and increasing edema. Family stated that since he had Covid last December he is always had some lower extremity edema. Only within the past couple weeks has he had increased edema that is now becoming significantly worse. Patient was on oxygen post Covid for about 3 months but had recovered and has been doing well otherwise. Patient now in the 80s room air.. Historical: - Allergies: 19:21 No Known Allergies; ab2 - PMHx: 19:21 COVID-19; Diabetes - IDDM; Diabetes - NIDDM; Hyperlipidemia; ab2 - PSHx: 19:21 Left first finger amputation; ab2 - Immunization history:: Adult Immunizations up to date. - Social history:: Smoking status: Patient denies any tobacco usage or history of. ROS: 23:05 Eyes: Negative for injury, pain, redness, and discharge, ENT: Negative for injury, jr8 pain, and discharge, Neck: Negative for injury, pain, and swelling, Abdomen/GI: Negative for abdominal pain, nausea, vomiting, diarrhea, and constipation, Back: Negative for injury and pain, MS/Extremity: Negative for injury and deformity, Skin: Negative for injury, rash, and discoloration, Neuro: Negative for headache, weakness, numbness, tingling, and seizure. 23:05 Cardiovascular: Positive for edema, orthopnea. 23:05 Respiratory: Positive for dyspnea on exertion, shortness of breath. Exam: 23:05 Eyes: Pupils equal round and reactive to light, extra-ocular motions intact. Lids and jr8 lashes normal. Conjunctiva and sclera are non-icteric and not injected. Cornea within normal limits. Periorbital areas with no swelling, redness, or edema. ENT: Nares patent. No nasal discharge, no septal abnormalities noted. Tympanic membranes are normal and external auditory canals are clear. Oropharynx with no redness, swelling, or masses, exudates, or evidence of obstruction, uvula midline. Mucous membranes moist. Neck: Trachea midline, no thyromegaly or masses palpated, and no cervical lymphadenopathy. Supple, full range of motion without nuchal rigidity, or vertebral point tenderness. No Meningismus. Abdomen/GI: Soft, non-tender, with normal bowel sounds. No distension or tympany. No guarding or rebound. No evidence of tenderness throughout. Back: No spinal tenderness. No costovertebral tenderness. Full range of motion. Skin: Warm, dry with normal turgor. Normal color with no rashes, no lesions, and no evidence of cellulitis. MS/ Extremity: Pulses equal, no cyanosis. Neurovascular intact. Full, normal range of motion. Neuro: Awake and alert, GCS 15, oriented to person, place, time, and situation. Cranial nerves II-XII grossly intact. Motor strength 5/5 in all extremities. Sensory grossly intact. 23:05 Cardiovascular: Rate: tachycardic, Rhythm: regular, Pulses: Pulses are 2+ in right radial artery and left radial artery. Heart sounds: normal, normal S1and S2, Edema: 3+ edema to level of right forearm, right wrist, right hand, waist, pubic area, left upper thigh, left lower thigh, left knee, left midcalf, left ankle, left foot, left forearm, left wrist, left hand, right upper thigh, right lower thigh, right knee, right midcalf, right ankle and right foot, swelling to face as well. Vital Signs: 19:19 BP 163 / 118; Pulse 108; Resp 26; Temp 99.7(TE); Pulse Ox 84% on R/A; Weight 122.47 kg; ab2 Height 5 ft. 7 in. (170.18 cm); Pain 0/10; 19:59 BP 157 / 76; Pulse 101; Resp 22 S; Pulse Ox 100% on 4 lpm NC; lg3 23:09 BP 144 / 65; Pulse 112; Resp 21 S; Pulse Ox 98% on 10% Non-rebreather mask; lg3 19:19 Body Mass Index 42.29 (122.47 kg, 170.18 cm) ab2 MDM: 19:26 Patient medically screened. 02/20 00:31 Data reviewed: vital signs, nurses notes, lab test result(s), EKG, radiologic studies, jr8 plain films. Data interpreted: Pulse oximetry: on room air is 98 %. Interpretation: normal. Counseling: I had a detailed discussion with the patient and/or guardian regarding: the historical points, exam findings, and any diagnostic results supporting the discharge/admit diagnosis, lab results, radiology results, the need for further work-up and treatment in the hospital. ED course: Patient has had only mild improvement. Continues to have large amount of anasarca and still requires oxygen. Will admit for further evaluation.. 02/19 19:27 Order name: Blood Culture Adult (2) [facility] 02/19 19:27 Order name: CBC with Diff; Complete Time: 20:29 [facility] 02/19 19:27 Order name: CMP; Complete Time: 20:29 [facility] 02/19 19:27 Order name: Lactate; Complete Time: 20:29 [facility] 02/19 19:27 Order name: Protime (+inr); Complete Time: 20:29 [facility] 02/19 19:27 Order name: Ptt, Activated; Complete Time: 20:29 [facility] 02/19 19:27 Order name: Urine Microscopic Only; Complete Time: 21:11 [facility] 02/19 20:01 Order name: Glucose, Ancillary Testing; Complete Time: 20:29 EDMS 02/19 20:28 Order name: Urine Dipstick-Ancillary; Complete Time: 20:29 EDMS 02/19 20:29 Order name: COVID-19/FLU A+B (Document "Date of Onset" if Symptomatic); Complete Time: [facility] :02/19 22:06 Order name: Cortisol; Complete Time: 23:18 02/19 22:06 Order name: T4 Free; Complete Time: 23:39 8 02/19 22:06 Order name: TSH; Complete Time: 23:39 8 02/19 22:06 Order name: BNP; Complete Time: 23:39 8 02/19 19:27 Order name: Chest Single View XRAY; Complete Time: 20:29 02/19 19:27 Order name: Accucheck; Complete Time: 19:50 8 02/19 19:27 Order name: Cardiac monitoring; Complete Time: 20:03 jr8 02/20 02:24 Order name: CBC with Automated Diff; Complete Time: 02:31 EDMS 02/20 02:31 Order name: Troponin High Sensitivity; Complete Time: 02:37 EDMS 02/20 02:32 Order name: Comprehensive Metabolic Panel; Complete Time: 02:37 EDMS 02/20 02:32 Order name: Phosphorus; Complete Time: 02:37 EDMS 02/20 02:32 Order name: Magnesium; Complete Time: 02:37 EDMS 02/20 02:55 Order name: ABG Arterial Blood Gas; Complete Time: 17:51 EDMS 02/20 07:31 Order name: Glucose, Ancillary Testing; Complete Time: 17:51 EDMS 02/20 10:39 Order name: CT; Complete Time: 17:51 EDMS 02/20 12:41 Order name: Glucose, Ancillary Testing; Complete Time: 17:51 EDMS 02/20 17:45 Order name: Glucose, Ancillary Testing; Complete Time: 17:51 EDMS 02/19 19:27 Order name: EKG - Nurse/Tech; Complete Time: 20:03 02/19 19:27 Order name: IV Saline Lock - Large Bore; Complete Time: 23:11 02/19 19:27 Order name: Labs collected and sent; Complete Time: 19:51 8 02/19 19:27 Order name: O2 Per Protocol; Complete Time: 20:03 8 02/19 19:27 Order name: O2 Sat Monitoring; Complete Time: 20:03 02/19 22:37 Order name: Taylor; Complete Time: 23:08 jr8 Administered Medications: 02/19 22:39 Drug: Lasix (furosemide) 80 mg Route: IVP; Site: right antecubital; lg3 22:40 Follow up: Response: No adverse reaction lg3 22:47 Drug: Zofran (Ondansetron) 4 mg Route: IVP; Site: right antecubital; lg3 22:48 Follow up: Response: No adverse reaction lg3 22:47 Drug: fentaNYL (PF) 50 mcg Route: IVP; Site: right antecubital; lg3 22:47 Follow up: Response: No adverse reaction; RASS: Alert and Calm (0) lg3 Disposition: 02/21 05:35 Co-signature as Attending Physician, Cholo Sutton MD I agree with the assessment and pricilla plan of care. Disposition Summary: 02/20/22 00:35 Hospitalization Ordered Hospitalization Status: Inpatient Admission jr8 Provider: Reyna Chester jr8 Condition: Fair jr8 Problem: new jr8 Symptoms: have improved jr8 Bed/Room Type: Standard [facility] Location: Intensive Care Unit(02/20/22 18:35) em1 Room Assignment: 4-(02/20/22 18:35) em1 Diagnosis - Anasarca jr8 - Acute respiratory failure with hypoxia jr8 Forms: - Medication Reconciliation Form jr8 - SBAR form jr8 Signatures: Dispatcher [employer] EDCholo Iraheta MD MD cha Martinez, Eric em1 Toni Gilbert PA PA jr8 Gifty Lorenzo, MARILU RN Christine Genao RN RN lg3 Kal Blake2 Shaunna Hernandez PA PA sb3 Corrections: (The following items were deleted from the chart) 02/20 00:56 00:35 Telemetry/MedSurg (Inpatient) jr8 jr8 00:56 00:35 jr8 jr8 01:08 00:56 Intensive Care Unit jr8 cg 01:08 00:56 jr8 cg 18:35 01:08 [facility] ER HOLD cg em1 18:35 01:08 ERHOLD- cg em1
[2022-02-20] MEDS ORDERED: MORPHINE 2 MG/ML SYR IV PRN (01:41)
[2022-02-20] MEDS ORDERED: ONDANSETRON 4 MG/2 ML VIAL IV PRN (01:41)
--- NOTE | 2022-02-20 01:57 | P.HP ---
Certification for Inpatient Patient admitted to: Inpatient With expected LOS: >2 Midnights Patient will require the following post-hospital care: None Practitioner: I am a practitioner with admitting privileges, knowledge of patient current condition, hospital course, and medical plan of care. Services: Services provided to patient in accordance with Admission requirements found in Title 42 Section 412.3 of the Code of Federal Regulations <Shaunna Hernandez - Last Filed: 02/20/22 02:22> Patient History Date of Service: 02/20/22 Primary Care Provider: Natacha Kraft Reason for admission: Anasarca, Acute Resp Failure History of Present Illness: Patient is a 51-year-old male with type 2 diabetes insulin-dependent, hypertension and hyperlipidemia who presented to the ED with shortness of breath and anasarca. He was saturating in the high 80s on room air. He had Covid pneumonia about 1 year ago requiring hospitalization for 1 month and was discharged on home oxygen. He was eventually weaned off. Patient's states that since then he has had issues with swelling all over his body. He has been prescribed Lasix and has helped but the swelling just returns. All labs in the ED were within normal limits. Portable chest x-ray gave limited insight. Patient was placed on a nonrebreather mask and is saturating 100%. Patient is visibly uncomfortable, tachypneic, and edematous. will admit patient for further evaluation and treatment of anasarca and acute respiratory failure with hypoxia. Home medications list reviewed: Yes (no longer taking eliquis or prednisone) - Past Medical/Surgical History Diabetic: Yes -: Type 2 Diabetes- Insulin Dependent -: Acid reflux -: Hypertension -: Hyperlipidemia -: L pointer finger partial amputation Psychosocial/ Personal History: Patient lives at home with his . - Family History Mother -: Hypertension, Diabetes - Social History Smoking Status: Never smoker Alcohol use: No CD- Drugs: No Caffeine use: Yes Place of Residence: Home <Rebecca Hernandezia - Last Filed: 02/20/22 02:22> Date of Service: 02/20/22 <Reyna Chester - Last Filed: 02/20/22 08:05> Allergies No Known Allergies Allergy (Verified 01/08/21 02:35) Home Medications: Famotidine [Pepcid] 20 mg PO DAILY 01/08/21 Metformin HCl [Glucophage*] 500 mg PO BIDWM 01/08/21 Apixaban [Eliquis] 5 mg PO BID 30 Days #60 tablet 02/02/21 Insulin NPH Human Isophane [Humulin N] 10 unit SQ BID #6 vial 02/02/21 predniSONE [Prednisone*] 20 mg PO BID #21 tab 02/02/21 Review of Systems General: Weakness Respiratory: Shortness of Breath Cardiovascular: Chest Pain, Edema Musculoskeletal: Pedal edema <Shaunna Hernandez - Last Filed: 02/20/22 02:22> Physical Examination - Physical Exam General: Alert, In no apparent distress, Mild distress, Obese HEENT: PERRLA, Mucous membr. moist/pink, EOMI, Sclerae nonicteric Neck: Supple, 2+ carotid pulse no bruit, No LAD, Without JVD or thyroid abnormality Respiratory: Diminished, Crackles/rales Cardiovascular: Normal S1 S2, Edema Gastrointestinal: Normal bowel sounds, No tenderness Musculoskeletal: No tenderness Integumentary: No rashes Neurological: Normal speech, Normal strength at 5/5 x4 extr, Normal tone, Normal affect Urinary: Taylor catheter - Studies Laboratory Data (last 24 hrs) 02/19/22 19:35: PT 10.7, INR 0.97, APTT 28.0 02/19/22 19:35: Sodium 138, Potassium 4.2, BUN 10, Creatinine 0.89, Glucose 142 H, Total Bilirubin 1.2 H, AST 78 H, ALT 114 H, Alkaline Phosphatase 78 02/19/22 19:35: WBC 6.90, Hgb 13.3 L, Hct 40.4, Plt Count 229 <Shaunna Hernandez - Last Filed: 02/20/22 02:22> - Studies Laboratory Data (last 24 hrs) 02/19/22 19:35: PT 10.7, INR 0.97, APTT 28.0 02/19/22 19:35: Sodium 138, Potassium 4.2, BUN 10, Creatinine 0.89, Glucose 142 H, Total Bilirubin 1.2 H, AST 78 H, ALT 114 H, Alkaline Phosphatase 78 02/19/22 19:35: WBC 6.90, Hgb 13.3 L, Hct 40.4, Plt Count 229 <Reyna Chester - Last Filed: 02/20/22 08:05> Assessment and Plan - Problems (Diagnosis) (1) Acute respiratory failure with hypoxia Current Visit: Yes Status: Acute (2) Anasarca Current Visit: Yes Status: Acute (3) Hypertension Current Visit: Yes Status: Chronic Qualifiers: Hypertension type: primary hypertension Qualified Code(s): I10 - Essential (primary) hypertension (4) Hyperlipidemia Current Visit: Yes Status: Chronic Qualifiers: Hyperlipidemia type: mixed hyperlipidemia Qualified Code(s): E78.2 - Mixed hyperlipidemia (5) History of home oxygen therapy Current Visit: Yes Status: Chronic (6) Morbid obesity due to excess calories Current Visit: Yes Status: Chronic (7) Type 2 diabetes mellitus Current Visit: Yes Status: Chronic Qualifiers: 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 ABG pending. Chest x-ray gave limited insight. Want to obtain chest CT however patient is in mild respiratory distress and cannot remain still. Patient is currently on a nonrebreather mask satting 100% but BiPAP ordered as needed. Dr. Dick consulted -Patient does not have known CHF. Consider echo if edema persists. Patient's reports he did have an episode of chest pain a few days ago. Troponin ordered. EKG negative. -Patient received 80 mg of Lasix IV in the ED. Patient's reports that his edema improved significantly. He had sufficient urine output via Taylor catheter. We will continue 40 mg IV twice daily. -Patient is a type II diabetic. Mild sliding scale insulin -Continue home medications as appropriate DVT PPx: Lovenox Code: Full Discharge Plan: Home Plan to discharge in: Greater than 2 days - Advance Directives Does patient have a Living Will: No Does patient have a Durable POA for Healthcare: No - Code Status/Comfort Care Code Status Assessed: Yes (Full) Critical Care: No Time Spent Managing Pts Care (In Minutes): 70 <Shaunna Hernandez - Last Filed: 02/20/22 02:22> Date of Service: 02/20/22 Subjective: HPI as mentioned above Physical Examination: Vitals: Afebrile vital signs are stable Physical exam: Cardiovascular: Within normal limits. Lungs: Within normal limits Abdomen: Within normal limits Neuro: Awake, alert, oriented to person place and time Assessment: 1. Anasarca anasarca 2. Lower extremity edema Plan: 1. Continue with current plan of care as mentioned above <Reyna Chester - Last Filed: 02/20/22 08:05>
[2022-02-20 02:21] LABS: Absolute Lymphocytes (CBC) 1.7 K/uL (0.7-4.9); Lymphocytes % 22.7 % (15.3-44.8); MPV 6.8 fL (7.6-11.3); RBC Red Blood Cell Count 4.62 M/uL (4.33-5.43)
[2022-02-20 02:31] LABS: ALT/SGPT 108 U/L (12-78); AST/SGOT 55 U/L (15-37); Albumin 3.5 g/dL (3.4-5.0); Alkaline Phosphatase 79 U/L (45-117); BUN Blood Urea Nitrogen 8 mg/dL (7-18); Bicarbonate 34 mmol/L (21-32); Bilirubin Total 1.1 mg/dL (0.2-1.0); Glucose Level 168 mg/dL (74-106); Phosphorus 4.2 mg/dL (2.5-4.9); Potassium 3.2 mmol/L (3.5-5.1); Protein, Total 7.1 g/dL (6.4-8.2); Sodium Level 138 mmol/L (136-145)
[2022-02-20 02:53] LABS: Blood O2 Saturation 98.9 % (92-98.5)
[2022-02-20] MEDS: INSULIN -REGULAR HUMAN 50 UNIT/0.5 ML ML SQ SCH ×4 (07:30→21:00)
--- NOTE | 2022-02-20 07:44 | EKG ---
Test Date: 2022-02-19 Test Time: 20:00:51 Manager Medicare Marketing: RONDA MEASUREMENT RESULTS: Intervals: Rate: 93 WA: 124 QRSD: 70 QT: 350 QTc: 435 Zenia: P: 41 WA: 124 QRS: 6 T: 76 INTERPRETIVE STATEMENTS: * Pediatric ECG analysis * Normal sinus rhythm Left axis deviation Compared to ECG 01/07/2021 18:11:34 Left-axis deviation now present Electronically Signed On 02-20-22 07:41:25 CDT by Renzo Schmitz
--- NOTE | 2022-02-20 10:38 | RAD REPORT ---
EXAM DESCRIPTION: CT - Chest For Pe Angio - 02/20/2022 10:26 am CLINICAL HISTORY: hypoxia, anasarca COMPARISON: Chest Single View dated 02/19/2022 TECHNIQUE: Dynamically enhanced 3 mm thick images of the chest were obtained during administration o f approximately 150mL Isovue 370 IV contrast. Coronal and oblique MIP reconstruction images were gene rated and reviewed. Exam utilizes a protocol to evaluate the pulmonary arterial tree. All CT scans are performed using dose optimization technique as appropriate and may include automated exposure control or mA/KV adjustment according to patient size. FINDINGS: No pulmonary emboli are identified. The aorta as imaged shows no acute or suspicious finding. No pericardial thickening or effusion. No focal mass or consolidation. There is interstitial thickening throughout the lung [place] that coul d be edema, infiltrate, scarring or a combination. No bronchiectasis or endobronchial lesions seen. N o pleural effusion or pleural thickening. No mediastinal or hilar suspicious masses. No chest wall masses or abnormal axillary lymphadenopathy. IMPRESSION: No pulmonary emboli identified. Bilateral interstitial thickening from edema, infiltrate, scarring or a combination.
[2022-02-20] MEDS: FUROSEMIDE 40 MG/4 ML VIAL IV SCH ×2 (12:00→17:00)
[2022-02-20] MEDS: ENOXAPARIN 40 MG/0.4 ML SQ SCH (12:00)
[2022-02-20] MEDS ORDERED: ENOXAPARIN 40 MG/0.4 ML SQ ONE (12:21)
[2022-02-20] MEDS ORDERED: FUROSEMIDE 40 MG/4 ML VIAL ONE ×2 (12:21→18:05)
[2022-02-20] MEDS ORDERED: INFLUENZA VACCINE (for 6+ mo) 0.5 ML DOSE IMVAC ONE (14:00)
[2022-02-20] MEDS ORDERED: ACETAMINOPHEN 500 MG TAB ONE (16:22)
[2022-02-20] MEDS: ACETAMINOPHEN 500 MG TAB PO PRN (16:22)
[2022-02-21 05:17] LABS: Absolute Lymphocytes (CBC) 1.5 K/uL (0.7-4.9); Hematocrit 40.4 % (39.6-49.0); Lymphocytes % 25.6 % (15.3-44.8); MPV 6.7 fL (7.6-11.3); RBC Red Blood Cell Count 4.58 M/uL (4.33-5.43)
[2022-02-21 05:37] LABS: ALT/SGPT 101 U/L (12-78); AST/SGOT 57 U/L (15-37); Albumin 3.2 g/dL (3.4-5.0); Alkaline Phosphatase 76 U/L (45-117); BUN Blood Urea Nitrogen 10 mg/dL (7-18); Bicarbonate 38 mmol/L (21-32); Bilirubin Total 1.5 mg/dL (0.2-1.0); Glucose Level 210 mg/dL (74-106); Potassium 3.2 mmol/L (3.5-5.1); Protein, Total 7.1 g/dL (6.4-8.2); Sodium Level 135 mmol/L (136-145)
[2022-02-21] MEDS: ENOXAPARIN 40 MG/0.4 ML SQ SCH (08:32)
[2022-02-21] MEDS: METOPROLOL TAR 25 MG TAB PO SCH (08:32)
[2022-02-21] MEDS: FUROSEMIDE 40 MG/4 ML VIAL IV SCH (08:33)
[2022-02-21] MEDS: INSULIN -REGULAR HUMAN 50 UNIT/0.5 ML ML SQ SCH ×4 (08:33→20:43)
[2022-02-21] MEDS: ACETAMINOPHEN 500 MG TAB PO PRN ×2 (08:33→18:17)
[2022-02-21] MEDS ORDERED: METHYLPREDNISOLONE 125 MG INJ IV ONE (10:51)
[2022-02-21] MEDS: SPIRONOLACTONE 25 MG TABLET PO SCH ×2 (11:32→20:42)
[2022-02-21 15:16] LABS: Urine Bilirubin Negative (Negative); Urine Blood 3+ (Negative); Urine Color Yellow (Yellow); Urine Glucose 3+ (Negative); Urine Protein Negative (Negative); Urine Specific Gravity 1.015 (1.005-1.030)
[2022-02-21 15:23] LABS: Urine Appearance SL CLOUDY (Clear); Urine Microscopic Reflex ORDER UMIC
[2022-02-21 15:27] LABS: Urine Bacteria <20 /HPF (NONE SEEN); Urine RBC 20-50 /HPF (NONE SEEN); Urine Yeast PRESENT (NONE SEEN)
[2022-02-21] MEDS: METFORMIN HCL 500 MG TAB PO SCH (17:28)
[2022-02-21] MEDS: APIXABAN 5 MG TABLET PO SCH (20:43)
[2022-02-22 05:31] VITALS: BMI 42.7
[2022-02-22 05:43] LABS: Hematocrit 39.5 % (39.6-49.0); Lymphocytes % 14.9 % (15.3-44.8); RBC Red Blood Cell Count 4.57 M/uL (4.33-5.43)
[2022-02-22 05:50] LABS: Arterial Blood Carboxyhemoglob 1.5 % (0-1.5); Blood Gas Oxyhemoglobin 89.4 % (94-97); Blood O2 Saturation 91.8 % (92-98.5)
[2022-02-22 06:00] LABS: ALT/SGPT 83 U/L (12-78); AST/SGOT 35 U/L (15-37); Albumin 3.1 g/dL (3.4-5.0); Alkaline Phosphatase 77 U/L (45-117); BUN Blood Urea Nitrogen 19 mg/dL (7-18); Bicarbonate 33 mmol/L (21-32); Bilirubin Total 1.1 mg/dL (0.2-1.0); Glucose Level 312 mg/dL (74-106); Potassium 3.5 mmol/L (3.5-5.1); Protein, Total 7.4 g/dL (6.4-8.2); Sodium Level 135 mmol/L (136-145)
[2022-02-22 06:01] LABS: Magnesium 2.4 mg/dL (1.8-2.4)
--- NOTE | 2022-02-22 07:25 | RAD REPORT ---
EXAM DESCRIPTION: RAD - Chest Single View - 02/22/2022 7:00 am CLINICAL HISTORY: pneumonia COMPARISON: Chest Single View dated 02/19/2022; Chest Single View dated 04/25/2021; Chest Single View dated 01/30/2021; Chest Single View dated 01/27/2021 FINDINGS: Lines: None. Lungs: No evidence of edema or pneumonia. Pleural: No significant pleural effusions or pneumothorax. Cardiac: Cardiomegaly. Bones: No acute fractures. Other: IMPRESSION: No acute cardiopulmonary disease.
[2022-02-22] MEDS: SPIRONOLACTONE 25 MG TABLET PO SCH ×2 (08:29→20:36)
[2022-02-22] MEDS: APIXABAN 5 MG TABLET PO SCH ×2 (08:29→20:36)
[2022-02-22] MEDS: METFORMIN HCL 500 MG TAB PO SCH ×2 (08:29→17:29)
[2022-02-22] MEDS: METOPROLOL TAR 25 MG TAB PO SCH (08:30)
[2022-02-22] MEDS: INSULIN -REGULAR HUMAN 50 UNIT/0.5 ML ML SQ SCH ×4 (08:39→20:36)
[2022-02-22] MEDS ORDERED: POTASSIUM CL SA 10 MEQ TAB PO ONE (09:00)
[2022-02-22] MEDS ORDERED: FUROSEMIDE 40 MG/4 ML VIAL IV SCH (09:00)
--- NOTE | 2022-02-22 11:14 | P.PN ---
Subjective Date of Service: 02/22/22 Primary Care Provider: Natacha Kraft Chief Complaint: Anasarca, Acute Resp Failure Subjective: Improving (Patient is doing much better this of breath is improved) Doing much better off BiPAP Review of Systems General: Weakness Respiratory: Shortness of Breath Physical Examination - Vital Signs Temperature: 97.0 F Blood Pressure: 134/81 Pulse: 114 Respirations: 30 Pulse Ox (%): 95 - Physical Exam General: In no apparent distress, Oriented x3 Respiratory: Clear to auscultation bilaterally, Diminished Assessment And Plan - Current Problems (Diagnosis) (1) Acute respiratory failure with hypoxia Current Visit: Yes Status: Acute Plan: Patient has improved significantly labs reviewed hypoxic hypercapnic respiratory failure improving transfer to the floor change to p.o. Lasix and spironolactone add a bronchodilator patient does take Eliquis at home add Dulera valuate for discharge evaluate for home O2 follow-up with me as an outpatient
--- NOTE | 2022-02-22 11:18 | P.CNS ---
Date of Consult: 02/21/22 Primary Care Provider: Natacha Kraft Chief Complaint: Anasarca, Acute Resp Failure History of Present Illness: Patient is 51 years of age metabolic syndrome presented to the emergency room with dyspnea and generalized edema in addition to hypoxemia patient is currently on a vent on a BiPAP stable is prescribed Lasix Allergies No Known Allergies Allergy (Verified 01/08/21 02:35) Home Medications: Famotidine [Pepcid] 20 mg PO DAILY 01/08/21 Metformin HCl [Glucophage*] 500 mg PO BIDWM 01/08/21 Apixaban [Eliquis] 5 mg PO BID 30 Days #60 tablet 02/02/21 Insulin NPH Human Isophane [Humulin N] 10 unit SQ BID #6 vial 02/02/21 predniSONE [Prednisone*] 20 mg PO BID #21 tab 02/02/21 - Past Medical/Surgical History Diabetic: Yes -: Type 2 Diabetes- Insulin Dependent -: Acid reflux -: Hypertension -: Hyperlipidemia -: L pointer finger partial amputation Psychosocial/ Personal History: Patient lives at home with his . - Family History Mother Medical History: Hypertension, Diabetes - Social History Alcohol use: No CD- Drugs: No Caffeine use: Yes Place of Residence: Home Review of Systems is unable to be obtained Physical Examination Temp Pulse Resp BP Pulse Ox 97.0 F 114 H 30 H 134/81 95 02/22/22 11:14 02/22/22 11:14 02/22/22 11:14 02/22/22 11:14 02/22/22 11:14 General: Alert, Cooperative Neck: Supple Respiratory: Clear to auscultation bilaterally, Diminished Cardiovascular: Normal S1 S2, Edema Gastrointestinal: Normal bowel sounds, Soft and benign - Problems (1) Acute respiratory failure with hypoxia Current Visit: Yes Status: Acute Plan: Patient is 51 years of age obese anabolic syndrome history of sleep apnea admitted with hypoxic hypercapnic respiratory failure suspect he may have underlying diastolic dysfunction as well mild bilateral interstitial changes no evidence of pulmonary embolism abnormal LFTs most likely underlying fatty liver BNP is normal he have underlying obstructive airways disease patient is anticoagulated labs reviewed continue with diuretics add spironolactone
[2022-02-22] MEDS ORDERED: BISACODYL E.C. 5 MG TAB PO ONE (16:44)
[2022-02-22] MEDS ORDERED: D50W 25 GM/50 ML SYRINGE IV PRN (17:37)
[2022-02-22] MEDS ORDERED: GLUCAGON 1 MG/VIAL IM PRN (17:37)
[2022-02-22] MEDS ORDERED: INSULIN 70/30 100 UNITS/ML SQ ONE (18:00)
[2022-02-22] MEDS: METOPROLOL TAR 50 MG TAB PO SCH (20:37)
[2022-02-22] MEDS: DULERA 200/5 (MOMETASONE/FORMOTEROL) INHALER IH SCH (20:38)
[2022-02-22] MEDS: ACETAMINOPHEN 500 MG TAB PO PRN (20:49)
[2022-02-23 03:40] LABS: Absolute Lymphocytes (CBC) 2.4 K/uL (0.7-4.9); Hematocrit 38.3 % (39.6-49.0); Lymphocytes % 22.8 % (15.3-44.8)
[2022-02-23 04:10] LABS: Albumin 3.1 g/dL (3.4-5.0); Bilirubin Total 0.7 mg/dL (0.2-1.0); Magnesium 2.4 mg/dL (1.8-2.4); Potassium 3.1 mmol/L (3.5-5.1)
[2022-02-23] MEDS ORDERED: POTASSIUM CL SA 10 MEQ TAB PO ONE (05:30)
[2022-02-23] MEDS: INSULIN -REGULAR HUMAN 50 UNIT/0.5 ML ML SQ SCH ×3 (08:26→16:38)
[2022-02-23] MEDS: METFORMIN HCL 500 MG TAB PO SCH ×2 (08:26→16:38)
[2022-02-23] MEDS: METOPROLOL TAR 50 MG TAB PO SCH (08:26)
[2022-02-23] MEDS: APIXABAN 5 MG TABLET PO SCH (08:27)
[2022-02-23] MEDS: SPIRONOLACTONE 25 MG TABLET PO SCH (08:27)
[2022-02-23] MEDS: DULERA 200/5 (MOMETASONE/FORMOTEROL) INHALER IH SCH (08:28)
[2022-02-23 08:49] VITALS: O2SAT 92
[2022-02-23] MEDS ORDERED: FUROSEMIDE 40 MG TABLET PO SCH (09:00)
--- NOTE | 2022-02-23 13:17 | P.PN ---
Subjective Date of Service: 02/21/22 Subjective: No new changes, No C/O voiced, Improving Review of Systems 10-point ROS is otherwise unremarkable Physical Examination - Vital Signs Temperature: 97.3 F Blood Pressure: 113/56 Pulse: 83 Respirations: 16 Pulse Ox (%): 94 - Physical Exam General: Alert, In no apparent distress, Oriented x3 Respiratory: Diminished, Crackles/rales Cardiovascular: Regular rate/rhythm, Normal S1 S2, No murmurs Gastrointestinal: Normal bowel sounds, Soft and benign, Non-distended, No tenderness Musculoskeletal: No clubbing, No swelling, No tenderness Neurological: Normal strength at 5/5 x4 extr, Sensation intact - Studies Medications List Reviewed: Yes Assessment & Plan - Problems (Diagnosis) (1) Acute respiratory failure with hypoxia Current Visit: Yes Status: Acute (2) Hyperlipidemia Current Visit: Yes Status: Chronic Qualifiers: Hyperlipidemia type: mixed hyperlipidemia Qualified Code(s): E78.2 - Mixed hyperlipidemia (3) Hypertension Current Visit: Yes Status: Chronic Qualifiers: Hypertension type: primary hypertension Qualified Code(s): I10 - Essential (primary) hypertension (4) Morbid obesity due to excess calories Current Visit: Yes Status: Chronic (5) Type 2 diabetes mellitus Current Visit: Yes Status: Chronic Qualifiers: Diabetes mellitus terminal supervisor insulin use: with terminal supervisor use Diabetes mellitus complication status: without complication Qualified Code(s): E11.9 - Type 2 diabetes mellitus without complications; Z79.4 - intermission coordinator (current) use of insulin - Plan Plan: 1. Continue with albuterol and Atrovent nebs 2. Continue with IV steroids 3. Continue with diuretics 4. Pulmonary consultation 5. Arrange home oxygen 6. Repeat chest x-ray in the morning 7. GI and DVT prophylaxis Discharge Plan: Home Plan to discharge in: Greater than 2 days - Advance Directives Does patient have a Living Will: No Does patient have a Durable POA for Healthcare: No - Code Status/Comfort Care Code Status Assessed: Yes Code Status: Full Code Critical Care: No Time Spent Managing PTS Care (In Minutes): 45
--- NOTE | 2022-02-23 13:20 | P.PN ---
Date of Service: 02/22/22 Subjective Subjective: Weaned off of BiPAP. Arrange for home oxygen if patient qualifies. Review of Systems 10-point ROS is otherwise unremarkable Physical Examination - Vital Signs Reviewed - Physical Exam General: Alert, In no apparent distress, Oriented x3 Respiratory: Diminished, Crackles/rales Cardiovascular: Regular rate/rhythm, Normal S1 S2, No murmurs Gastrointestinal: Normal bowel sounds, Soft and benign, Non-distended, No tenderness Musculoskeletal: No clubbing, No swelling, No tenderness Neurological: Normal strength at 5/5 x4 extr, Sensation intact Assessment & Plan - Problems (Diagnosis) (1) Acute respiratory failure with hypoxia Current Visit: Yes Status: Acute (2) Hyperlipidemia Current Visit: Yes Status: Chronic Qualifiers: Hyperlipidemia type: mixed hyperlipidemia Qualified Code(s): E78.2 - Mixed hyperlipidemia (3) Hypertension Current Visit: Yes Status: Chronic Qualifiers: Hypertension type: primary hypertension Qualified Code(s): I10 - Essential (primary) hypertension (4) Morbid obesity due to excess calories Current Visit: Yes Status: Chronic (5) Type 2 diabetes mellitus Current Visit: Yes Status: Chronic Qualifiers: Diabetes mellitus exterminator insulin use: with fpc use Diabetes mellitus complication status: without complication Qualified Code(s): E11.9 - Type 2 diabetes mellitus without complications; Z79.4 - prison (current) use of insulin - Plan Continue plan of care as mentioned below: 1. Continue with albuterol and Atrovent nebs 2. Continue with IV steroids 3. Continue with diuretics 4. Pulmonary consultation 5. Arrange home oxygen 6. Repeat chest x-ray in the morning 7. GI and DVT prophylaxis
--- NOTE | 2022-02-23 13:30 | P.DS ---
Discharge Date: 02/23/22 Primary Care Provider: Natacha Kraft Disposition: ROUTINE DISCHARGE Discharge Condition: GOOD Reason for Admission: Anasarca, Acute Resp Failure - Problems (1) Acute respiratory failure with hypoxia Current Visit: Yes Status: Acute (2) Hyperlipidemia Current Visit: Yes Status: Chronic Qualifiers: Hyperlipidemia type: mixed hyperlipidemia Qualified Code(s): E78.2 - Mixed hyperlipidemia (3) Hypertension Current Visit: Yes Status: Chronic Qualifiers: Hypertension type: primary hypertension Qualified Code(s): I10 - Essential (primary) hypertension (4) Morbid obesity due to excess calories Current Visit: Yes Status: Chronic (5) Type 2 diabetes mellitus Current Visit: Yes Status: Chronic Qualifiers: Diabetes mellitus intermediate project manager insulin use: with intermediate project manager use Diabetes mellitus complication status: without complication Qualified Code(s): E11.9 - Type 2 diabetes mellitus without complications; Z79.4 - [facility] (current) use of insulin Brief History of Present Illness: Patient is a 51-year-old male with type 2 diabetes insulin-dependent, hypertension and hyperlipidemia who presented to the ED with shortness of breath and anasarca. He was saturating in the high 80s on room air. He had Covid pneumonia about 1 year ago requiring hospitalization for 1 month and was discharged on home oxygen. He was eventually weaned off. Patient's states that since then he has had issues with swelling all over his body. He has been prescribed Lasix and has helped but the swelling just returns. All labs in the ED were within normal limits. Portable chest x-ray gave limited insight. Patient was placed on a nonrebreather mask and is saturating 100%. Patient is visibly uncomfortable, tachypneic, and edematous. will admit patient for further evaluation and treatment of anasarca and acute respiratory failure with hypoxia. Hospital Course: Patient has done well during hospital stay. We will arrange for home oxygen. Patient will need CPAP at night. Patient will continue with nebs, steroids, and CPAP support. At this time, patient is clinically doing well and patient is stable for discharge. Patient will discharge home once home oxygen is completely arranged. Vital Signs/Physical Exam: Temp Pulse Resp BP Pulse Ox 97.3 F 83 16 113/56 L 94 02/23/22 13:19 02/23/22 13:19 02/23/22 13:19 02/23/22 13:19 02/23/22 13:19 General: Alert, In no apparent distress, Oriented x3 Laboratory Data at Discharge: WBC Cancelled 02/23/22 05:00 Hgb Cancelled 02/23/22 05:00 Hct Cancelled 02/23/22 05:00 Plt Count Cancelled 02/23/22 05:00 PT 10.7 SECONDS (9.5-12.5) 02/19/22 19:35 INR 0.97 02/19/22 19:35 APTT 28.0 SECONDS (24.3-36.9) 02/19/22 19:35 Sodium Cancelled 02/23/22 05:00 Potassium 3.2 mmol/L (3.5-5.1) L 02/23/22 11:13 BUN Cancelled 02/23/22 05:00 Creatinine Cancelled 02/23/22 05:00 Glucose Cancelled 02/23/22 05:00 Phosphorus 4.2 mg/dL (2.5-4.9) 02/20/22 02:00 Magnesium 2.4 mg/dL (1.8-2.4) 02/23/22 03:21 Total Bilirubin Cancelled 02/23/22 05:00 AST Cancelled 02/23/22 05:00 ALT Cancelled 02/23/22 05:00 Alkaline Phosphatase Cancelled 02/23/22 05:00 Home Medications: Atorvastatin Calcium 20 mg PO BEDTIME 02/22/22 Insulin Glargine,Hum.rec.anlog [Lantus] 50 units SQ BID 02/22/22 Insulin Glargine,Hum.rec.anlog [Toujeo Solostar] 50 units PO DAILY 02/22/22 Pantoprazole [Protonix Tab*] 40 mg PO BID 02/22/22 Sitagliptin Phosphate [Januvia] 25 mg PO DAILY 02/22/22 Apixaban [Eliquis] 5 mg PO BID #60 tablet 02/23/22 Cefdinir [Omnicef] 300 mg PO BID #14 capsule 02/23/22 Ipratropium/Albuterol Sulfate [Iprat-Albut 0.5-3(2.5) mg/3 ml] 3 ml IH Q6H #60 ampul.neb 02/23/22 Metformin HCl [Glucophage*] 500 mg PO BIDWM #60 tab 02/23/22 Metoprolol Tartrate [Lopressor*] 50 mg PO BID #60 tab 02/23/22 Mometasone/Formoterol [Dulera 200 Mcg/5 Mcg Inhaler] 2 puff IH BID #1 inhaler 02/23/22 Nebulizer Accessories [Aeroneb Go] 1 each MC DAILY #1 each 02/23/22 Nebulizer [Aeroneb Go Nebulizer] 1 each MC DAILY #1 each 02/23/22 Spironolactone [Aldactone*] 25 mg PO BID #60 tab 02/23/22 predniSONE [Prednisone*] 20 mg PO BID #11 tab 02/23/22 New Medications: Nebulizer Accessories [Aeroneb Go] 1 each MC DAILY #1 each Nebulizer [Aeroneb Go Nebulizer] 1 each MC DAILY #1 each Spironolactone [Aldactone*] 25 mg PO BID #60 tab Mometasone/Formoterol [Dulera 200 Mcg/5 Mcg Inhaler] 2 puff IH BID #1 inhaler Apixaban [Eliquis] 5 mg PO BID #60 tablet Metformin HCl [Glucophage*] 500 mg PO BIDWM #60 tab Ipratropium/Albuterol Sulfate [Iprat-Albut 0.5-3(2.5) mg/3 ml] 3 ml IH Q6H #60 ampul.neb Metoprolol Tartrate [Lopressor*] 50 mg PO BID #60 tab Cefdinir [Omnicef] 300 mg PO BID #14 capsule predniSONE [Prednisone*] 20 mg PO BID #11 tab Physician Discharge Instructions: -DC IV and DC home -Follow-up with PCP in 1 to 2 weeks -Follow-up with pulmonary in 1 to 2 weeks -Please call Dr. Chester at [phone] if any questions regarding hospital stay -Please call nursing station at [phone] if any nursing or medication questions -Return to the emergency room if symptoms worsen Diet: Low sodium Activity: Fall precautions Followup: NONE,NONE [Primary Care Provider] - Time spent managing pt's care (in minutes): 35
--- NOTE | 2022-02-23 13:32 | P.PN ---
Date of Service: 02/23/22 Subjective Subjective: Patient is clinically doing well. Patient clinical symptoms are improving. Review of Systems 10-point ROS is otherwise unremarkable Physical Examination - Vital Signs Reviewed - Physical Exam General: Alert, In no apparent distress, Oriented x3 Respiratory: Diminished, Crackles/rales Cardiovascular: Regular rate/rhythm, Normal S1 S2, No murmurs Gastrointestinal: Normal bowel sounds, Soft and benign, Non-distended, No tenderness Musculoskeletal: No clubbing, No swelling, No tenderness Neurological: Normal strength at 5/5 x4 extr, Sensation intact Assessment & Plan - Problems (Diagnosis) (1) Acute respiratory failure with hypoxia Current Visit: Yes Status: Acute (2) Hyperlipidemia Current Visit: Yes Status: Chronic Qualifiers: Hyperlipidemia type: mixed hyperlipidemia Qualified Code(s): E78.2 - Mixed hyperlipidemia (3) Hypertension Current Visit: Yes Status: Chronic Qualifiers: Hypertension type: primary hypertension Qualified Code(s): I10 - Essential (primary) hypertension (4) Morbid obesity due to excess calories Current Visit: Yes Status: Chronic (5) Type 2 diabetes mellitus Current Visit: Yes Status: Chronic Qualifiers: Diabetes mellitus terminal operations manager insulin use: with terminal operations manager use Diabetes mellitus complication status: without complication Qualified Code(s): E11.9 - Type 2 diabetes mellitus without complications; Z79.4 - predatory animal exterminator (current) use of insulin - Plan Continue plan of care as mentioned below: 1. Continue with albuterol and Atrovent nebs 2. Continue with oral steroids 3. Continue with diuretics outpt 4. Pulmonary consultation appreciated 5. Arrange home oxygen-possible DC home after it has been arranged 6. GI and DVT prophylaxis
[2022-02-23 16:14] VITALS: BP 116/60; TEMP 96.7
--- NOTE | 2022-02-24 07:07 | ECHO ---
HEIGHT: 5 ft 7 in WEIGHT: 272 lb 12.8 oz DATE OF STUDY: 02/21/[address]: Tony Dick MD 2-DIMENSIONAL: YES M.MODE: YES DOPPLER: YES COLOR FLOW: YES TDS: YES PORTABLE: YES DEFINITY: NO BUBBLE STUDY: NO DIAGNOSIS: RESPIRATORY FAILURE CARDIAC HISTORY: CATHERIZATION: SURGERY: PROSTHETIC VALVE: PACEMAKER: MEASUREMENTS (cm) DIASTOLIC (NORMALS) SYSTOLIC (NORMALS) IVSd 1.1 (0.6-1.2) LA Diam 3.1 (1.9-4.0) LVEF 76% LVIDd 4.0 (3.5-5.7) LVIDs 2.2 (2.0-3.5) %FS 45% LVPWd 1.2 (0.6-1.2) Ao Diam 3.1 (2.0-3.7) 2 DIMENSIONAL ASSESSMENT: RIGHT ATRIUM: NORMAL LEFT ATRIUM: NORMAL RIGHT VENTRICLE: NORMAL LEFT VENTRICLE: NORMAL TRICUSPID VALVE: MITRAL VALVE: NORMAL PULMONIC VALVE: NORMAL AORTIC VALVE: NORMAL PERICARDIAL EFFUSION: NONE AORTIC ROOT: NORMAL LEFT VENTRICULAR WALL MOTION: HYPERDYNAMIC LEFT VENTRICLE. DOPPLER/COLOR FLOW: MILD TRICUSPID REGURGITATION. COMMENTS: NORMAL LEFT VENTRICULAR EJECTION FRACTION >60%. NORMAL WALL MOTION. MILD TRICUSPID REGURGITATION. TECHNOLOGIST: Mack BECKER
== END 2022-02-23 17:22 | disposition home or self-care (01) | DRG 189 ==
LOC: ER 19:03 → ERHOLD 02-20 01:17 → 3RD-ICU 02-20 20:25 → 2ND 02-22 15:45
PROVIDERS: ADMIT Hospitalist; ATTEND Hospitalist
PROC: 5A09457 Assistance with Respiratory Ventilation, 24-96 Consecutive Hours, Continuous Positive Airway Pressure (ICD-10-PCS; principal; 2022-02-20)
DX: J96.01 Acute respiratory failure with hypoxia (principal); Z68.41 Body mass index [BMI] 40.0-44.9, adult; R60.1 Generalized edema; J96.02 Acute respiratory failure with hypercapnia; E11.9 Type 2 diabetes mellitus without complications; I10 Essential (primary) hypertension; E78.5 Hyperlipidemia, unspecified; E66.01 Morbid (severe) obesity due to excess calories; Z79.4 Long term (current) use of insulin; Z20.822 Contact with and (suspected) exposure to COVID-19; Z86.16 Personal history of COVID-19
CPT/HCPCS: 0240U; 36415; 51702; 71045; 71275; 80053; 81003; 81015; 82140; 82533; 82805; 82947; 83036; 83605; 83735; 83880; 84100; 84132; 84145; 84439; 84443; 84484; 85025; 85610; 85730; 87040; 87086; 87088; 93005; 93306; 94660; 94760; 96374; 96375; 97110; 97112; 97161; 99285; J1650; J1815; J1940; J2405; J2930; J3010; Q9967

== ENCOUNTER 2022-03-10 16:10 | Emergency (ER) | payer OTHER ==
--- OUTSIDE RECORDS SUMMARY | 2022-03-10 16:12 | XMS REPORT | Continuity of Care Document ---
:1970 Author Organization [facility] t Address [address] [place] [address] Care Team Providers Name Role Phone Natacha Somers Primary Care Physician Billy ARRIETA, Dustin Asher Attending Clinician Isac Rubin MD Attending Clinician Problems Condition Condition Condition Status Onset Resolution Last Treating Co mments Source Name Details Category Date Date Treatment Clinician Date No known No known Disease Unive rs active active ity of problems problems [facility] Allergies, Adverse Reactions, Alerts This patient has no known allergies or adverse reactions. Social History Social Habit Start Date Stop Date Quantity Comments Source History of Smoker [facility] tobacco use [facility] Exposure to Not sure [facility] SARS-CoV-2 [facility] (event) [place] Tobacco use and 2021-09-30 2021-09-30 Never used Univers[facility] of exposure 00:00:00 00:00:00 [facility] Alcohol intake 2021-09-30 2021-09-30 Ex-drinker [facility] 00:00:00 00:00:00 (finding) [facility] Sex Ass[birth year] At [birth year] [facility] 00:00:00 00:00:00 [facility] Smoking Status Start Date Stop Date Source Former smoker 2021-09-30 00:00:00 2021-09-30 00:00:00 [facility] Medications Ordered Filled Start Stop Current Ordering Indication Dosage Frequency Signature Comments Components Source Medication Medication Date Date Medication? Clinician (SIG) Name Name esomeprazol 2020-11 No Take by U nivers e magnesium 11-30 mouth. ity o f (NEXIUM 14:20: 00:00 [place] ORAL) 21 :00 [facility] insulin 2020-11 Yes inject Univers glargine,hu 11-30 under the ity of .rec.anlog 13:40: skin. [place] (TOUJEO [address] [place] [address] SOLOSTAR Branch U-300 INSULIN SC) sitagliptin 2020-11 Yes Take by Un ko phosphate 11-30 mouth. ity of (JANUVIA 13:40: [place] ORAL) [address] [place] [address] Branch atorvastati 2020-11 Yes Take by Un ko n calcium 11-30 mouth. ity of (LIPITOR 13:40: [place] ORAL) [address] [place] [address] METOPROLOL 2020-11 Yes Take by Uni vers TARTRATE 11-30 mouth. ity of ORAL 13:40: [address] aspirin 81 2020-11 Yes 81mg Take 81 mg U nivers mg chewable 11-30 by mouth ity of tablet 13:40: daily. [address] insulin 2020-11 Yes inject Univers glargine,hu 11-30 under the ity of m.rec.anlog 13:40: skin. [place] (LANTUS [place]) [address] [place] [address] pantoprazol 2020-11 Yes [id number] 40mg Take 1 Univers e 40 mg EC 11-30 tablet by ity of tablet 00:00: mouth 2 [place] 00 (two) Medical times Branch daily. sucralfate Yes [id number] 1g Take 1 U nivers 1 gram 8-03 tablet by ity of tablet 00:00: mouth [place] 00 before Medical meals and Branch at bedtime. ondansetron Yes [id number] 4mg Take 1 Univers (ZOFRAN 8-03 tablet by ity of ODT) 4 mg 00:00: mouth [place] disintegrat 00 every 8 Medic al ing tablet (eight) Branch hours as needed for Nausea and Vomiting (N/V). Vital Signs Vital Name Observation Time Observation Value Comments Source Systolic blood 2021-09-30 18:36:00 125 mm[Hg] Univer sity of pressure [facility] Diastolic blood 2021-09-30 18:36:00 81 mm[Hg] Unive rsity of pressure [facility] Heart rate 2021-09-30 18:36:00 120 /min [facility] Body temperature 2021-09-30 18:36:00 36.61 Chen Univ ersity of [facility] Body height 2021-09-30 18:36:00 170.2 cm [facility] Body weight 2021-09-30 18:36:00 99.066 kg [facility] BMI 2021-09-30 18:36:00 34.21 kg/m2 [facility] Oxygen saturation in 2021-09-30 18:36:00 93 /min [facility] Arterial blood by [facility] Pulse oximetry Branch Procedures This patient has no known procedures. Encounters Start End Encounter Admission Attending Care Care Encounter Source Date/Time Date/Time Type Type Clinicians Facility Department ID 2021-09-30 2021-09-30 Office Dustin Cervantes [facility] 1.2.[id number] [facility] 13:25:55 13:55:55 Visit Gerson Rubin [id number] [facility] AT [phone] [place] [id number] [facility] Results Test Description Test Time Test Comments Results Result Comments Source COMPREHENSIVE METABOLIC PANEL 2021-12-20 04:51:05 Test Item Value Reference Range Interpretation Comme nts GLUCOSE (test code = 2217) 299 MG/DL 70-99 H BUN (test code = 2208) 15 MG/DL 6-20 CREATININE (test code = 0.67 MG/DL 0.80-1.40 L 2213) eGFR (2020 CKD-EPI) (test 114 ML/MIN/1.73 >60 code = 76924) CALC BUN/CREAT (test code = 22 RATIO 6-28 2234) SODIUM (test code = 2231) 143 MEQ/L [...] PHOSPHATASE (test 111 U/L 40-118 code = 220) AST (test code = 2218) 33 U/L 9-50 ALT (test code = 2219) 76 U/L 5-50 H LIPID [id number] 04:51:05 Test Item Value Reference Range Interpretation [...] MOREINFORMATION , SEE CLIENT ANNOUNCE MENT AT [email or web address] LDL/HDL 1.47 RATIO <3.55 UN LESS (test code = 2238) OTHERWISE INDICATED, ALL TESTING PER FORMED [facility], I [place] [place] [address] LABORATORY DIRE CTOR: MELECIO DE SANTIAGO M.D. CLIA NUMBER [id number] CAP ACCREDITATION N O. [id number] HEMOGLOBIN [id number] 02:53:45 Test Item Value Reference Range Interpretation Comments HEMOGLOBIN A1c (test 10.6 % 4.2-5.6 H [facility] [facility] code = 28624) ASSOCIATION IDELIN[employer] FOR HGB A1C: PREDIABETES/INC REASED [...]
[2022-03-10 17:41] LABS: Absolute Lymphocytes (CBC) 2.7 K/uL (0.7-4.9); Hematocrit 40.6 % (39.6-49.0); Lymphocytes % 31.2 % (15.3-44.8); MPV 7.6 fL (7.6-11.3); RBC Red Blood Cell Count 4.68 M/uL (4.33-5.43)
[2022-03-10 17:57] LABS: Albumin 3.5 g/dL (3.4-5.0); Bilirubin Direct 0.1 mg/dL (0-0.2); Bilirubin Total 0.6 mg/dL (0.2-1.0); Magnesium 2.3 mg/dL (1.8-2.4); Potassium 3.5 mmol/L (3.5-5.1); Protein, Total 7.2 g/dL (6.4-8.2); Troponin High Sensitivity 8.2 pg/mL (<58.9)
[2022-03-10 18:01] LABS: Protime INR 1.11
--- NOTE | 2022-03-10 18:13 | RAD REPORT ---
EXAM DESCRIPTION: RAD - Chest Single View - 03/10/2022 5:40 pm CLINICAL HISTORY: CHEST PAIN Chest pain. COMPARISON: Chest Single View dated 02/22/2022; Chest Single View dated 02/19/2022; Chest Single View dated 04/25/2021; Chest Single View dated 01/30/2021 FINDINGS: Portable technique limits examination quality. The lungs are grossly clear. The heart is normal in size. No displaced fractures. IMPRESSION: No acute intrathoracic process suspected.
[2022-03-10] MEDS ORDERED: NA CHLORIDE 0.9% 1,000 ML ONE (21:42)
--- NOTE | 2022-03-10 22:36 | EDPHYS ---
Physician Documentation [facility] Name: Leandro Rand Age: 51 yrs Sex: Male : 1970 Arrival Date: 03/10/2022 Time: 16:14 Bed 14 Private MD: ED Physician Nicholas Santoyo HPI: 03/10 17:16 This 51 yrs old Male presents to ER via Ambulatory with complaints of Chest pm1 Pain. 17:16 The patient or guardian reports chest pain that is located primarily in the mid-sternal pm1 area. 17:16 Onset: this morning. The pain does not radiate. Associated signs and symptoms: pm1 Pertinent positives: shortness of breath, constipation, Pertinent negatives: abdominal pain, cough, headache, nausea, vomiting. The chest pain is described as a pressure. Duration: The patient or guardian reports a single episode, that is still ongoing. Modifying factors: The symptoms are alleviated by nothing. the symptoms are aggravated by nothing. Severity of pain: in the emergency department the pain is unchanged. The patient has not experienced similar symptoms in the past. The patient has not recently seen a physician. Historical: - Allergies: 16:58 No Known Allergies; jd3 - Home Meds: 16:58 Eliquis Oral [Active]; Insulin: Novolin 70/30 Sub-Q [Active]; Lantus 100 unit/mL Sub-Q jd3 soln [Active]; Lipitor 40 mg Oral tab 1 tab once daily [Active]; Metformin Oral [Active]; - PMHx: 16:58 COVID-19; Diabetes - IDDM; Diabetes - NIDDM; Hyperlipidemia; jd3 - PSHx: 16:58 Left first finger amputation; jd3 - Immunization history:: Adult Immunizations up to date, Client reports receiving the 2nd dose of the Covid vaccine, Flu vaccine is not up to date. - Social history:: Smoking status: Patient denies any tobacco usage or history of. ROS: 17:16 Constitutional: Negative for fever, chills, and weight loss, Eyes: Negative for injury, pm1 pain, redness, and discharge, Respiratory: Negative for shortness of breath, cough, wheezing, and pleuritic chest pain. 17:16 Abdomen/GI: Negative for abdominal pain, nausea, vomiting, diarrhea, and constipation, Back: Negative for injury and pain, MS/Extremity: Negative for injury and deformity, Skin: Negative for injury, rash, and discoloration, Neuro: Negative for headache, weakness, numbness, tingling, and seizure. 17:16 Cardiovascular: Positive for chest pain, Negative for edema, palpitations. 17:16 All other systems are negative. Exam: 17:16 Constitutional: This is a well developed, well nourished patient who is awake, alert, pm1 and in no acute distress. Head/Face: Normocephalic, atraumatic. 17:16 Cardiovascular: Regular rate and rhythm with a normal S1 and S2. No gallops, murmurs, or rubs. Normal PMI, no JVD. No pulse deficits. Respiratory: Lungs have equal breath sounds bilaterally, clear to auscultation and percussion. No rales, rhonchi or wheezes noted. No increased work of breathing, no retractions or nasal flaring. Abdomen/GI: Soft, non-tender, with normal bowel sounds. No distension or tympany. No guarding or rebound. No evidence of tenderness throughout. Back: No spinal tenderness. No costovertebral tenderness. Full range of motion. Skin: Warm, dry with normal turgor. Normal color with no rashes, no lesions, and no evidence of cellulitis. MS/ Extremity: Pulses equal, no cyanosis. Neurovascular intact. Full, normal range of motion. 17:16 Neuro: Exam negative for acute changes, Orientation: is normal, Mentation: is normal, Motor: is normal, moves all fours, Sensation: is normal, no obvious gross deficits. Vital Signs: 16:59 BP 93 / 54; Pulse 73; Resp 20 S; Temp 97.3(TE); Pulse Ox 94% on R/A; Weight 125.65 kg jd3 (R); Height 5 ft. 7 in. (170.18 cm) (R); Pain 8/10; 20:01 BP 92 / 54; Pulse 77; Resp 20; Pulse Ox 96% on R/A; sm5 21:27 BP 101 / 56; Pulse 86; Resp 19; Pulse Ox 95% on R/A; sm5 21:58 BP 108 / 63; Pulse 83; Resp 18; Pulse Ox 94% on R/A; sm5 16:59 Body Mass Index 43.38 (125.65 kg, 170.18 cm) jd3 MDM: 17:12 Patient medically screened. pm1 22:32 Data reviewed: vital signs. Data interpreted: Pulse oximetry: on 2L(s) per nasal pm1 canula, is 95 %. Interpretation: normal. Counseling: I had a detailed discussion with the patient and/or guardian regarding: the historical points, exam findings, and any diagnostic results supporting the discharge/admit diagnosis, lab results, radiology results, the need for outpatient follow up, to return to the emergency department if symptoms worsen or persist or if there are any questions or concerns that arise at home. 22:37 ED course: Initial troponin negative that is greater than 8 hours after onset of pm1 symptoms. Repeat troponin negative. Patient appeared dehydrated with hypotension at initial presentation in triage. Patient's chest pain resolved with IV fluid hydration without any pain medications given. Will discharge patient home to follow up with PCP. 03/10 17:12 Order name: Basic Metabolic Panel; Complete Time: 18:03 pm1 03/10 17:12 Order name: CBC with Diff; Complete Time: 17:45 pm1 03/10 17:12 Order name: LFT's; Complete Time: 18:03 pm1 03/10 17:12 Order name: Magnesium; Complete Time: 18:03 pm1 03/10 17:12 Order name: NT PRO-BNP; Complete Time: 18:03 pm1 03/10 17:12 Order name: PT-INR; Complete Time: 18:03 pm1 03/10 17:09 Order name: EKG; Complete Time: 17:09 [facility] 03/10 17:09 Order name: EKG - Nurse/Tech; Complete Time: 17:09 [facility] 03/10 17:12 Order name: Troponin HS; Complete Time: 18:03 pm1 03/10 17:12 Order name: XRAY Chest (1 view); Complete Time: 18:35 pm1 03/10 21:23 Order name: Troponin High Sensitivity; Complete Time: 22:26 pm1 03/10 17:12 Order name: Cardiac monitoring; Complete Time: 20:02 pm1 03/10 17:12 Order name: IV Saline Lock; Complete Time: 17:31 pm1 03/10 17:12 Order name: Labs collected and sent; Complete Time: 17:31 pm1 03/10 17:12 Order name: O2 Per Protocol; Complete Time: 17:31 pm1 03/10 17:12 Order name: O2 Sat Monitoring; Complete Time: 20:02 pm1 03/10 19:50 Order name: Vital Signs; Complete Time: 20:01 pm1 Administered Medications: 19:45 CANCELLED (Physician Discretion; Patient is taking eliquiss): Aspirin Chewable Tablet pm1 324 mg PO once; 81 mg tablets x 4 19:58 Drug: NS 0.9% 1000 ml Route: IV; Rate: 1000 ml; Site: left antecubital; sm5 21:18 Follow up: IV Status: Completed infusion; IV Intake: 1000ml sm5 21:50 Drug: NS 0.9% 1000 ml Route: IV; Rate: 1000 ml; Site: left antecubital; sm5 22:49 Follow up: IV Status: Completed infusion; IV Intake: 1000ml sm5 Disposition Summary: 03/10/22 22:35 Discharge Ordered Location: Home pm1 Problem: new pm1 Symptoms: have improved pm1 Condition: Stable pm1 Diagnosis - Dehydration pm1 - Chest pain, unspecified pm1 Followup: pm1 - With: Emergency Department - When: As needed - Reason: Worsening of condition Followup: pm1 - With: Private Physician - When: 2 - 3 days - Reason: Recheck today's complaints, Continuance of care, Re-evaluation by your physician Discharge Instructions: - Discharge Summary Sheet pm1 - Nonspecific Chest Pain, Adult pm1 - Dehydration, Adult pm1 Forms: - Medication Reconciliation Form pm1 - Thank You Letter pm1 - Antibiotic Education pm1 - Prescription Opioid Use pm1 Addendum: 03/14/2022 21:29 Co-signature as Attending Physician, Nicholas Santoyo MD. r n Signatures: Dispatcher [employer] EDNicholas Mancilla MD MD rn Marinas, Patrick, HONORIO SHREDDING MACHINE KNIFE CHANGER pm1 Ray Isabel RN RN jd3 Mazur, Sarah, RN RN 5 Corrections: (The following items were deleted from the chart) 03/10 19:45 19:45 Aspirin Chewable Tablet 324 mg PO once; 81 mg tablets x 4 ordered. pm1 pm1
--- NOTE | 2022-03-10 22:36 | ER ---
Nurse's Notes [facility] Name: Leandro Rand Age: 51 yrs Sex: Male : 1970 Arrival Date: 03/10/2022 Time: 16:14 Bed 14 Private MD: Diagnosis: Dehydration;Chest pain, unspecified Presentation: 03/10 16:57 Chief complaint: Spouse and/or significant other states: "He have been having pain in jd3 the middle of his chest. even with oxygen at home he feels he is having problems breathing.". Coronavirus screen: At this time, the client does not indicate any symptoms associated with coronavirus-19. Ebola Screen: No symptoms or risks identified at this time. Initial Sepsis Screen: Does the patient meet any 2 criteria? No. Patient's initial sepsis screen is negative. Does the patient have a suspected source of infection? No. Patient's initial sepsis screen is negative. Risk Assessment: Do you want to hurt yourself or someone else? Patient reports no desire to harm self or others. Onset of symptoms was March 10, 2022. 16:57 Method Of Arrival: Ambulatory jd3 16:57 Acuity: FELI 3 jd3 Historical: - Allergies: 16:58 No Known Allergies; jd3 - Home Meds: 16:58 Eliquis Oral [Active]; Insulin: Novolin 70/30 Sub-Q [Active]; Lantus 100 unit/mL Sub-Q jd3 soln [Active]; Lipitor 40 mg Oral tab 1 tab once daily [Active]; Metformin Oral [Active]; - PMHx: 16:58 COVID-19; Diabetes - IDDM; Diabetes - NIDDM; Hyperlipidemia; jd3 - PSHx: 16:58 Left first finger amputation; jd3 - Immunization history:: Adult Immunizations up to date, Client reports receiving the 2nd dose of the Covid vaccine, Flu vaccine is not up to date. - Social history:: Smoking status: Patient denies any tobacco usage or history of. Screenin:02 Abuse screen: Denies threats or abuse. Denies injuries from another. Nutritional sm5 screening: No deficits noted. Tuberculosis screening: No symptoms or risk factors identified. Fall Risk None identified. Assessment: 20:02 General: Appears in no apparent distress. Behavior is cooperative. Pain: Complains of sm5 pain in chest Pain does not radiate. Pain began suddenly. Neuro: No deficits noted. Level of Consciousness is awake, alert, obeys commands, Oriented to person, place, time, situation. Cardiovascular: Reports chest pressure Capillary refill < 3 seconds Patient's skin is warm and dry. 21:35 Reassessment: No changes from previously documented assessment. Patient and/or family sm5 updated on plan of care and expected duration. Pain level reassessed. 22:48 Reassessment: No changes from previously documented assessment. 5 Vital Signs: 16:59 BP 93 / 54; Pulse 73; Resp 20 S; Temp 97.3(TE); Pulse Ox 94% on R/A; Weight 125.65 kg j (R); Height 5 ft. 7 in. (170.18 cm) (R); Pain 8/10; 20:01 BP 92 / 54; Pulse 77; Resp 20; Pulse Ox 96% on R/A; sm5 21:27 BP 101 / 56; Pulse 86; Resp 19; Pulse Ox 95% on R/A; sm5 21:58 BP 108 / 63; Pulse 83; Resp 18; Pulse Ox 94% on R/A; sm5 16:59 Body Mass Index 43.38 (125.65 kg, 170.18 cm) j ED Course: 16:14 Patient arrived in ED. mr 16:58 Triage completed. jd3 17:00 Arm band placed on. EKG completed in triage. Results shown to MD. jd3 17:12 Rahul Salcedo, HONORIO is PHCP. pm1 17:12 Nicholas Santoyo MD is Attending Physician. pm1 17:27 Initial lab(s) drawn, by mn, sent to lab. Inserted saline lock: 20 gauge in left dh3 antecubital area, using aseptic technique. Blood collected. 17:43 XRAY Chest (1 view) In Process Unspecified. EDMS 19:46 Farida Lim, RN is Primary Nurse. sm5 21:27 No provider procedures requiring assistance completed. Patient maintains SpO2 sm5 saturation greater than 95% on room air. 21:56 Troponin High Sensitivity Sent. sm5 22:48 Patient has correct armband on for positive identification. Bed in low position. Call 5 light in reach. Side rails up X2. compliance monitor on. Pulse ox on. NIBP on. 22:49 IV discontinued, intact, bleeding controlled, No redness/swelling at site. Pressure sm5 dressing applied. Administered Medications: 19:45 CANCELLED (Physician Discretion; Patient is taking eliquiss): Aspirin Chewable Tablet pm1 324 mg PO once; 81 mg tablets x 4 19:58 Drug: NS 0.9% 1000 ml Route: IV; Rate: 1000 ml; Site: left antecubital; sm5 21:18 Follow up: IV Status: Completed infusion; IV Intake: 1000ml sm5 21:50 Drug: NS 0.9% 1000 ml Route: IV; Rate: 1000 ml; Site: left antecubital; sm5 22:49 Follow up: IV Status: Completed infusion; IV Intake: 1000ml sm5 Intake: 21:18 IV: 1000ml; Total: 1000ml. sm5 22:49 IV: 1000ml; Total: 2000ml. sm5 Outcome: 22:35 Discharge ordered by MD. pm1 22:48 Discharged to home ambulatory, with family. sm5 22:48 Condition: stable 22:48 Discharge instructions given to patient, family, Instructed on discharge instructions, follow up and referral plans. Demonstrated understanding of instructions, follow-up care. 22:49 Patient left the ED. 5 Signatures: Dispatcher [employer] Larissa Alvarado LaquitaRahul hughes, SEARCH CONSULTANT SEARCH CONSULTANT pm1 Radha Ledezma 3 Ray Isabel RN RN jd3 Farida Lim RN RN sm5
[2022-03-11 08:13] VITALS: TEMP 97.3
[2022-03-11 08:17] VITALS: BP 108/63; O2SAT 94
--- NOTE | 2022-03-12 11:04 | EKG ---
Test Date: 2022-03-10 Test Time: 17:02:35 Featheredge Machine Operator: BRAYDEN MEASUREMENT RESULTS: Intervals: Rate: 73 [place]: 128 QRSD: 84 QT: 374 QTc: 412 [place]: P: 50 [place]: 128 QRS: 31 T: 16 INTERPRETIVE STATEMENTS: Normal sinus rhythm Normal ECG Compared to ECG 02/19/2022 20:00:51 Left-axis deviation no longer present Electronically Signed On 03-12-22 10:58:03 CDT by Renzo Schmitz
== END 2022-03-10 22:49 | disposition home or self-care (01) ==
LOC: ER 16:10
DX: R07.9 Chest pain, unspecified (principal); E86.0 Dehydration; E78.5 Hyperlipidemia, unspecified; E11.9 Type 2 diabetes mellitus without complications; Z79.4 Long term (current) use of insulin; Z79.01 Long term (current) use of anticoagulants; Z86.16 Personal history of COVID-19
CPT/HCPCS: 96361; 93005; 85025; 80048; 36415; 83735; 85610; 80076; 84484 ×2; 83880; 71045; 96360; 99285; J7030

== ENCOUNTER 2022-03-17 12:26 | Emergency (ER) | payer OTHER ==
--- OUTSIDE RECORDS SUMMARY | 2022-03-17 12:29 | XMS REPORT | Continuity of Care Document ---
:1970 Author Organization [facility] t Address [address] [place] [address] Care Team Providers Name Role Phone Natacha Somers Primary Care Physician Billy ARRIETA, Dustin Asher Attending Clinician Scottie ARRIETA, Isac Attending Clinician Problems Condition Condition Condition Status Onset Resolution Last Treating Co mments Source Name Details Category Date Date Treatment Clinician Date No known No known Disease Unive rs active active ity of problems problems [facility] Allergies, Adverse Reactions, Alerts This patient has no known allergies or adverse reactions. Social History Social Habit Start Date Stop Date Quantity Comments Source History of Smoker [facility] tobacco use [facility] Exposure to Not sure [facility] SARS-CoV-2 [facility] (event) [place] Tobacco use and 2021-09-30 2021-09-30 Never used [facility] of exposure 00:00:00 00:00:00 [facility] Alcohol intake 2021-09-30 2021-09-30 Ex-drinker [facility] 00:00:00 00:00:00 (finding) [facility] Sex Ass[birth year] At [birth year] [facility] 00:00:00 00:00:00 [facility] Smoking Status Start Date Stop Date Source Former smoker 2021-09-30 00:00:00 2021-09-30 00:00:00 [facility] Medications Ordered Filled Start Stop Current Ordering Indication Dosage Frequency Signature Comments Components Source Medication Medication Date Date Medication? Clinician (SIG) Name Name esomeprazol 2020-11 Take by U nivers e magnesium 11-30 mouth. ity o f (NEXIUM 14:20: 00:00 [place] ORAL) 21 :00 [facility] Branch insulin 2020-11 Yes inject Univers glargine,hu 11-30 under the ity of m.rec.anlog 13:40: skin. [place] (TOUJEO [address] [place] [address] SOLOSTAR Branch U-300 INSULIN SC) sitagliptin 2020-11 Yes Take by Un ko phosphate 11-30 mouth. ity of (JANUVIA 13:40: [place] ORAL) [address] [place] [address] Branch atorvastati 2020-11 Yes Take by Un ko n calcium 11-30 mouth. ity of (LIPITOR 13:40: [place] ORAL) [address] [place] [address] Branch METOPROLOL 2020-11 Yes Take by Uni vers TARTRATE 11-30 mouth. ity of ORAL 13:40: [address] aspirin 81 2020-11 Yes 81mg Take 81 mg U nivers mg chewable 11-30 by mouth ity of tablet 13:40: daily. [address] insulin 2020-11 Yes inject Univers glargine,hu 11-30 under the ity of m.rec.anlog 13:40: skin. [place] (LANTUS [place]) [address] [place] [address] pantoprazol 2020-11 Yes [id number] 40mg Take 1 Univers e 40 mg EC 11-30 tablet by ity of tablet 00:00: mouth 2 [place] 00 (two) Medical times Branch daily. sucralfate Yes [id number] 1g Take 1 U nivers 1 gram 8-03 tablet by ity of tablet 00:00: mouth [place] 00 before Medical meals and Branch at bedtime. ondansetron Yes [id number] 4mg Take 1 Univers (ZOFRAN 8-03 tablet by ity of ODT) 4 mg 00:00: mouth [place] disintegrat 00 every 8 Medic al ing tablet (eight) Branch hours as needed for Nausea and Vomiting (N/V). Vital Signs Vital Name Observation Time Observation Value Comments Source Systolic blood 2021-09-30 18:36:00 125 mm[Hg] Univer sity of pressure [facility] Diastolic blood 2021-09-30 18:36:00 81 mm[Hg] Unive rsity of pressure [facility] Heart rate 2021-09-30 18:36:00 120 /min [facility] Body temperature 2021-09-30 18:36:00 36.61 Chen Univ ersity of [facility] Body height 2021-09-30 18:36:00 170.2 cm [facility] Body weight 2021-09-30 18:36:00 99.066 kg [facility] BMI 2021-09-30 18:36:00 34.21 kg/m2 [facility] Oxygen saturation in 2021-09-30 18:36:00 93 /min [facility] Arterial blood by [facility] Pulse oximetry Branch Procedures This patient has no known procedures. Encounters Start End Encounter Admission Attending Care Care Encounter Source Date/Time Date/Time Type Type Clinicians Facility Department ID 2021-09-30 2021-09-30 Office Dustin Cervantes [facility] [id number] [facility] 13:25:55 13:55:55 Visit [id number] AT [id number] [place] [id number] [facility] Results Test Description Test Time Test Comments Results Result Comments Source ALBUMIN/CREATININE RATIO, URINE, RANDOM 2022-03-11 01:57:25 Test Item Value Reference Range Interpretation Comme nts CREATININE, URINE, RANDOM (test 61.2 MG/DL NOT ESTAB code = 2072) ALBUMIN, URINE, RANDOM (test <0.2 MG/DL NOT ESTAB code = 91338) CALC ALBUMIN/CREAT, RND (test <3 MG/G <30 Note: Albumin/Creatinine code = 41467) ratio referenc e interval reflects ADA and NKF guidelines. COMPREHENSIVE METABOLIC [id number] 00:29:28 Test Item Value Reference Range Interpretation Comments GLUCOSE (test code = 413 MG/DL 70-99 H 2216) BUN (test code = 14 MG/DL 05-19) CREATININE (test 0.81 MG/DL 0.80-1.40 code = 2214) eGFR (2020 CKD-EPI) 107 >60 (test code = 20339) ML/MIN/1.73 CALC BUN/CREAT (test 17 RATIO 6-28 code = 2235) SODIUM (test code = 138 MEQ/L 058-531 3758) POTASSIUM (test code 4.2 MEQ/L 3.5-5.4 = 2227) CHLORIDE (test code 96 MEQ/L 95-107 = 221) CARBON DIOXIDE (test 24 MEQ/L 19-31 code = 2206) CALCIUM (test code = 9.8 MG/DL 8.5-10.5 2208) PROTEIN, TOTAL (test 7.1 G/DL 6.1-8.3 code = 222) ALBUMIN (test code = 4.2 G/DL 3.5-5.2 2200) CALC GLOBULIN (test 2.9 G/DL 1.9-3.7 code = 224) CALC A/G RATIO (test 1.4 RATIO 1.0-2.6 code = 223) BILIRUBIN, TOTAL 0.5 MG/DL See_Comment [Automated message] (test code = 220) The syste m which generated this result transmit brad reference range : <=1.2. The refe rence range was not u sed to interpret th is result as normal/abnormal . ALKALINE PHOSPHATASE 82 U/L 40-118 (test code = 2203) AST (test code = 26 U/L 9-50 2217) ALT (test code = 54 U/L 5-50 H 2218) LIPID [id number] 00:29:28 Test Item Value Reference Range Interpretation Comments CHOLESTEROL (test 174 MG/DL <200 code = 2210) TRIGLYCERIDES (test 311 MG/DL <150 H code = 2232) HDL CHOLESTEROL (test 40 MG/DL >39 code = 2220) CALC LDL CHOL (test 93 MG/DL <100 NOTE: C ALCULATED LDL code = 2237) IS BASED ON DANIEL-BRWEER METHOD WHICHINCLUDES ADJUSTABLE TRIGLYCERIDE:VL DL CHOLESTEROL RAT IO.THIS FACTOR VARIES B Y MEASURED TRIGLY CERIDE AND NON-HDLCHOL ESTEROL CONCENTRATIONS WITH INCREASED CALCU LATED LDL SEENIN HIGH ER TRIGLYCERIDE OR LOWER NON-HDL SPECIME NS. FOR MOREINFORMATION , SEE CLIENT ANNOUNCE MENT AT [email or web address] [email or web address] LDL/HDL 2.33 RATIO <3.55 (test code = 2238) HEMOGLOBIN [id number] 03:12:57 Test Item Value Reference Range Interpretation Comments HEMOGLOBIN A1c (test 11.3 % 4.2-5.6 H [facility] [employer] code = 90027) ASSOCIATION [employer] FOR HGB A1C: PREDIABETES/INC REASED [...] ALTERNATE TESTI NG OR LABORATORY CONS ULTATION. UNLESS OTHE RWISE INDICATED, ALL TESTING PERFORMED [facility] PATHOLOGY [facility], [facility]. [address] [place] [address] LABORATORY DIRE CTOR: Anna MCKAY. CLIA NUMBER [id number] CAP ACCREDITATION N O. [id number] COMPREHENSIVE METABOLIC [id number] 04:51:05 Test Item Value Reference Range Interpretation Comments GLUCOSE (test code = 299 MG/DL 70-99 H 2216) BUN (test code = 15 MG/DL 6-20 2207) CREATININE (test 0.67 MG/DL 0.80-1.40 L code = 2214) eGFR (2020 CKD-EPI) 114 >60 (test code = 90347) ML/MIN/1.73 CALC BUN/CREAT (test 22 RATIO 6-28 code = 2235) SODIUM (test code = 143 MEQ/L 620-775 6644) POTASSIUM (test code 4.1 MEQ/L 3.5-5.4 = 2227) CHLORIDE (test code 105 MEQ/L 95-107 = 2215) CARBON DIOXIDE (test 26 MEQ/L 19-31 code = 2206) CALCIUM (test code = 9.3 MG/DL 8.5-10.5 2208) PROTEIN, TOTAL (test 6.5 G/DL 6.1-8.3 code = 222) ALBUMIN (test code = 4.0 G/DL 3.5-5.2 2200) CALC GLOBULIN (test 2.5 G/DL 1.9-3.7 code = 2240) CALC A/G RATIO (test 1.6 RATIO 1.0-2.6 code = 2234) BILIRUBIN, TOTAL 0.5 MG/DL See_Comment [Automated message] (test code = 2206) The syste m which generated this result transmit brad reference range : <=1.2. The refe rence range was not u sed to interpret th is result as normal/abnormal . ALKALINE PHOSPHATASE 111 U/L 40-118 (test code = 2203) AST (test code = 33 U/L 9-50 2217) ALT (test code = 76 U/L 5-50 H 2218) LIPID [id number] 04:51:05 Test Item Value Reference Range Interpretation [...] MOREINFORMATION , SEE CLIENT ANNOUNCE MENT AT [email or web address] LDL/HDL 1.47 RATIO <3.55 UN LESS (test code = 2238) OTHERWISE INDICATED, ALL TESTING PER FORMED [facility], [facility]. [address] [place] [address] LABORATORY DIRE CTOR: MELECIO DE SANTIAGO M.D. CLIA NUMBER [id number] CAP ACCREDITATION N O. [id number] HEMOGLOBIN [id number] 02:53:45 Test Item Value Reference Range Interpretation Comments HEMOGLOBIN A1c (test 10.6 % 4.2-5.6 H [employer] code = 66724) ASSOCIATION IDELIN[employer] FOR HGB A1C: PREDIABETES/INC REASED [...]
[2022-03-17] MEDS ORDERED: ONDANSETRON 4 MG/2 ML VIAL ONE (15:12)
[2022-03-17] MEDS ORDERED: FAMOTIDINE 20 MG/2 ML VIAL IV ONE (15:12)
[2022-03-17 15:20] LABS: Urine Blood Trace-intact (Negative); Urine Glucose 2+ (Negative); Urine Protein Trace (Negative); Urine Specific Gravity 1.025 (1.005-1.030); Urine pH 5.5 (5.0-7.0)
[2022-03-17 15:22] LABS: Absolute Lymphocytes (CBC) 2.7 K/uL (0.7-4.9); Hematocrit 43.1 % (39.6-49.0); MPV 7.5 fL (7.6-11.3); RBC Red Blood Cell Count 5.04 M/uL (4.33-5.43)
[2022-03-17 15:32] LABS: Albumin 3.7 g/dL (3.4-5.0); Bilirubin Total 1.3 mg/dL (0.2-1.0)
[2022-03-17 15:33] LABS: Potassium 4.2 mmol/L (3.5-5.1)
[2022-03-17 15:36] LABS: Urine Bacteria <20 /HPF (NONE SEEN); Urine Mucus 2+ /HPF (NONE SEEN)
--- NOTE | 2022-03-17 15:56 | RAD REPORT ---
EXAM DESCRIPTION: CTAbdomen Pelvis W Contrast - 03/17/2022 3:49 pm CLINICAL HISTORY: Abdominal pain. Epigastric pain COMPARISON: Abdomen Pelvis W Contrast dated 06/24/2021 TECHNIQUE: Biphasic CT imaging of the abdomen and pelvis was performed with 100 ml non-ionic IV cont rast. All CT scans are performed using dose optimization technique as appropriate and may include automated exposure control or mA/KV adjustment according to patient size. FINDINGS: The lung bases are clear. The liver is diffusely fatty. The spleen, pancreas, adrenal glands and kidneys are within normal limi ts. No bowel obstruction, free air, free fluid or abscess. The appendix is normal. No evidence of signi ficant lymphadenopathy. No suspicious bony findings. IMPRESSION: No acute intra-abdominal or pelvic finding.
[2022-03-17] MEDS ORDERED: NA CHLORIDE 0.9% 1,000 ML ONE (16:32)
[2022-03-17] MEDS ORDERED: INSULIN -REGULAR HUMAN 50 UNIT/0.5 ML ML ONE (16:32)
--- NOTE | 2022-03-17 16:38 | RAD REPORT ---
EXAM DESCRIPTION: RAD - Chest Single View - 03/17/2022 4:20 pm CLINICAL HISTORY: ABDOMINAL DISTENTION Chest pain. COMPARISON: Chest Single View dated 03/10/2022; Chest Single View dated 02/22/2022; Chest Single View dated 02/19/2022; Chest Single View dated 04/25/2021 FINDINGS: Portable technique limits examination quality. The lungs are grossly clear. The heart is normal in size. No displaced fractures. IMPRESSION: No acute intrathoracic process suspected.
--- NOTE | 2022-03-17 16:48 | RAD REPORT ---
EXAM DESCRIPTION: US - Abdomen Exam Limited - 03/17/2022 4:42 pm CLINICAL HISTORY: EPIGASTRIC PAIN COMPARISON: Abdomen Exam Limited dated 04/25/2021 FINDINGS: The gallbladder demonstrates no gallstones. No pericholecystic fluid or gallbladder wall t hickening. The common bile duct is normal measuring 4 mm. The liver demonstrates no findings of intrahepatic biliary dilatation. IMPRESSION: Unremarkable examination.
--- NOTE | 2022-03-17 18:14 | EDPHYS ---
Physician Documentation [facility] Name: Leandro Rand Age: 51 yrs Sex: Male : 1970 Arrival Date: 03/17/2022 Time: 12:27 Bed 13 Private MD: ED Physician Oral Cano HPI: 03/17 15:10 This 51 yrs old Male presents to ER via Ambulatory with complaints of Vomiting.cp 15:10 The patient presents to the emergency department with nausea, that is moderate, cp vomiting, that is intermittent, described as bilious, abdominal pain, of the abdomen diffusely. Onset: The symptoms/episode began/occurred 3 day(s) ago. Possible causes: unknown. Associated signs and symptoms: Pertinent positives: anorexia, Pertinent negatives: constipation, diarrhea, fever, GI bleeding. Severity of symptoms: in the emergency department the symptoms are unchanged despite home interventions. Historical: - Allergies: 15:23 No Known Allergies; jg9 - Home Meds: 14:42 Eliquis Oral [Active]; Insulin: Novolin 70/30 Sub-Q [Active]; Lantus 100 unit/mL Sub-Q ph soln [Active]; Lipitor 40 mg Oral tab 1 tab once daily [Active]; Metformin Oral [Active]; - PMHx: 14:42 COVID-19; Diabetes - IDDM; Diabetes - NIDDM; Hyperlipidemia; ph - PSHx: 14:42 Left first finger amputation; ph - Immunization history:: Adult Immunizations up to date. - Social history:: Smoking status: Patient denies any tobacco usage or history of. ROS: 15:15 Constitutional: Positive for poor PO intake, Negative for body aches, chills, fever. cp 15:15 Eyes: Negative for injury, pain, redness, and discharge. cp 15:15 ENT: Negative for drainage from ear(s), ear pain, sore throat, difficulty swallowing, difficulty handling secretions. 15:15 Cardiovascular: Negative for chest pain, edema, palpitations. 15:15 Respiratory: Negative for cough, shortness of breath, wheezing. 15:15 Abdomen/GI: Positive for abdominal pain, nausea and vomiting, abdominal distension, Negative for diarrhea, constipation, hematemesis, black/tarry stool, rectal bleeding. 15:15 Neuro: Negative for altered mental status, dizziness, headache, weakness. 15:15 All other systems are negative. Exam: 15:20 Constitutional: The patient appears in no acute distress, alert, awake, cp non-diaphoretic, non-toxic, well developed, well nourished, obese, uncomfortable. 15:20 Head/Face: Normocephalic, atraumatic. cp 15:20 Eyes: Periorbital structures: appear normal, Conjunctiva: normal, no exudate, no injection, Sclera: no appreciated abnormality, Lids and lashes: appear normal, bilaterally. 15:20 ENT: External ear(s): are unremarkable, Nose: is normal, Mouth: Lips: moist, Oral mucosa: moist, Posterior pharynx: Airway: no evidence of obstruction, patent. 15:20 Chest/axilla: Inspection: normal. 15:20 Cardiovascular: Rate: tachycardic, Rhythm: regular, Edema: is not appreciated, JVD: is not appreciated. 15:20 Respiratory: the patient does not display signs of respiratory distress, Respirations: normal, no use of accessory muscles, no retractions, labored breathing, is not present, Breath sounds: are clear throughout, no decreased breath sounds, no stridor, no wheezing. 15:20 Abdomen/GI: Inspection: distension, that is moderate, in the abdomen diffusely, Bowel sounds: active, all quadrants, Palpation: soft, in all quadrants, moderate abdominal tenderness, in all quadrants, rebound tenderness, is not appreciated, involuntary guarding, is not appreciated. 15:20 Back: CVA tenderness, is absent. 15:20 Skin: no rash present. 15:20 Neuro: Orientation: to person, place \T\ time. Mentation: is normal, Motor: moves all fours, strength is normal, Sensation: is normal. Vital Signs: 14:38 BP 133 / 86; Pulse 115; Resp 20; Temp 97.6(TE); Pulse Ox 93% on R/A; Weight 120.66 kg; ph Height 5 ft. 7 in. (170.18 cm); 15:00 BP 118 / 82; Pulse 115; Resp 22 S; Pulse Ox 98% on R/A; jg9 15:15 BP 118 / 77; Pulse 110; Resp 20 S; Pulse Ox 98% on 4 lpm NC; jg9 16:45 BP 115 / 58; Pulse 108; Resp 20 S; Pulse Ox 99% on R/A; jg9 18:15 BP 120 / 58; Pulse 98; Resp 20 S; Pulse Ox 100% on 4 lpm NC; jg9 14:38 Body Mass Index 41.66 (120.66 kg, 170.18 cm) ph MDM: 14:50 Patient medically screened. cp 16:00 Differential diagnosis: Nonspecific abd pain, gastritis, cholecystitis, pancreatitis, cp appendicitis, bowel obstruction. 18:13 Data reviewed: vital signs, nurses notes, lab test result(s), radiologic studies, CT cp scan. 18:13 Counseling: I had a detailed discussion with the patient and/or guardian regarding: the cp historical points, exam findings, and any diagnostic results supporting the discharge/admit diagnosis, lab results, radiology results, the need for outpatient follow up, a stocking inspector, to return to the emergency department if symptoms worsen or persist or if there are any questions or concerns that arise at home. Response to treatment: the patient's symptoms have markedly improved after treatment, VSS. Nausea and pain markedly improved. Vomiting resolved and patient tolerating po fluids. Will discharge to home for continued monitoring. 03/17 15:01 Order name: CBC with Diff; Complete Time: 16:05 9 03/17 16:06 Interpretation: Normal except: PLT 268; MPV 7.5. cp 03/17 15:01 Order name: CMP; Complete Time: 16:05 9 03/17 16:06 Interpretation: Normal except: NA 132; CL 97; GLUC 304; GFR 81; AST 51; BILIT 1.3; CA cp 9.6; GLOB 4.3; A/G 0.9. 03/17 15:01 Order name: Lipase; Complete Time: 16:05 9 03/17 15:05 Order name: Ketone, Serum; Complete Time: 16:05 cp 03/17 15:05 Order name: Urine Microscopic Only; Complete Time: 16:05 cp 03/17 16:15 Interpretation: Normal except: UWBC 5-10; URBC 5-10; SQEPI 5-10. cp 03/17 15:20 Order name: Urine Dipstick-Ancillary; Complete Time: 16:05 EDMS 03/17 16:16 Interpretation: Normal except: UGLUC 2+; UKET 2+; UBLD Trace-intact; UPROT Trace; UESTR cp Trace. 03/17 15:05 Order name: XRAY Chest (1 view); Complete Time: 16:40 03/17 16:40 Interpretation: Report reviewed. 03/17 15:05 Order name: CT Abd/Pelvis - IV Contrast Only; Complete Time: 16:05 cp 03/17 15:39 Order name: Urine Culture EDSC 03/17 16:17 Order name: US Abdomen Limited: RUQ/epigastric; Complete Time: 16:57 03/17 18:19 Order name: Glucose, Ancillary Testing EDSC 03/17 15:01 Order name: IV Saline Lock; Complete Time: 15:01 j9 03/17 15:01 Order name: Labs collected and sent; Complete Time: 15:01 j9 03/17 15:05 Order name: Urine Dipstick-Ancillary (obtain specimen); Complete Time: 15:20 03/17 16:58 Order name: PO challenge 03/17 16:58 Order name: Accucheck Blood Glucose cp Administered Medications: 15:13 Drug: Pepcid (famotidine) 20 mg Route: IVP; Site: left forearm; jg9 16:21 Follow up: Response: No adverse reaction; Pain is decreased jg9 15:17 Drug: Zofran (Ondansetron) 4 mg Route: IVP; Site: left forearm; jg9 16:22 Follow up: Response: No adverse reaction; Nausea is decreased jg9 16:39 Drug: Insulin Regular Human 10 units {Co-Signature: jonh (Sarah Beth Santillan RN).} Route: jg9 IVP; Site: left forearm; 16:51 Follow up: Response: No adverse reaction jg9 16:39 Drug: NS 0.9% 1000 ml Route: IV; Rate: 1 bolus; Site: left forearm; jg9 Point of Care Testing: Blood Glucose: 18:07 Blood Glucose: 158 mg/dL; jg9 Ranges: Critical Glucose Levels:Adult <50 mg/dl or >400 mg/dl <40 mg/dl or >180 mg/dl Disposition Summary: 03/17/22 18:13 Discharge Ordered Location: Home cp Problem: new cp Symptoms: have improved cp Condition: Stable cp Diagnosis - Nausea with vomiting, unspecified cp Followup: cp - With: Subhash Ross MD - When: 2 - 3 days - Reason: Recheck today's complaints Discharge Instructions: - Discharge Summary Sheet cp - Nausea and Vomiting, Adult cp - Gastroparesis cp Forms: - Medication Reconciliation Form cp - Thank You Letter cp - Antibiotic Education cp - Prescription Opioid Use cp Prescriptions: - Reglan 10 mg Oral Tablet - take 1 tablet by ORAL route every 6 hours take 30 minutes before meals and at cp bedtime; 30 tablet; Refills: 0, Product Selection Permitted - Protonix 40 mg Oral Tablet - take 1 tablet by ORAL route once daily; 30 tablet; Refills: 0, Product cp Selection Permitted Signatures: Dispatcher [employer] Lachelle Zapien RN RN ph Cholo Johnson PA PA Renay Branch RN RN jg9 Sarah Beth Santillan RN borja Corrections: (The following items were deleted from the chart) 15:07 15:06 UA MICROSCOPIC+U.LAB.BRZ ordered. EDSC EDMS
--- NOTE | 2022-03-17 18:14 | ER ---
Nurse's Notes [facility] Name: Leandro Rand Age: 51 yrs Sex: Male : 1970 Arrival Date: 03/17/2022 Time: 12:27 Bed 13 Private MD: Diagnosis: Nausea with vomiting, unspecified Presentation: 03/17 14:38 Chief complaint: Spouse and/or significant other states: N/V since Thursday, not ph tolerating PO fluids, was seen at PCP today, BGL 399, sent to ED to be evaluated for DKA and dehydration, states that pt has been drowsy and mildly confused, also reports upper abdominal pain. Coronavirus screen: Vaccine status: Patient reports receiving the 2nd dose of the covid vaccine. Ebola Screen: No symptoms or risks identified at this time. Initial Sepsis Screen: Does the patient meet any 2 criteria? No. Patient's initial sepsis screen is negative. Does the patient have a suspected source of infection? No. Patient's initial sepsis screen is negative. Risk Assessment: Do you want to hurt yourself or someone else? Patient reports no desire to harm self or others. Onset of symptoms was March 17, 2022. 14:38 Method Of Arrival: Ambulatory ph 14:38 Acuity: FELI 2 ph Triage Assessment: 15:23 General: Appears in no apparent distress. Behavior is calm, cooperative. GI: Reports jg9 intolerance of fluids, intolerance of food, nausea, vomiting, since 03/14/2022. Historical: - Allergies: 15:23 No Known Allergies; jg9 - Home Meds: 14:42 Eliquis Oral [Active]; Insulin: Novolin 70/30 Sub-Q [Active]; Lantus 100 unit/mL Sub-Q ph soln [Active]; Lipitor 40 mg Oral tab 1 tab once daily [Active]; Metformin Oral [Active]; - PMHx: 14:42 COVID-19; Diabetes - IDDM; Diabetes - NIDDM; Hyperlipidemia; ph - PSHx: 14:42 Left first finger amputation; ph - Immunization history:: Adult Immunizations up to date. - Social history:: Smoking status: Patient denies any tobacco usage or history of. Screenin:23 Abuse screen: Denies threats or abuse. Denies injuries from another. Nutritional jg9 screening: No deficits noted. Tuberculosis screening: No symptoms or risk factors identified. Fall Risk None identified. Assessment: 15:22 Pain: Complains of pain in abdomen-epigastric region. GI: Abdomen is round Reports jg9 intolerance of fluids, intolerance of food, nausea, vomiting, since Thursday03/14/2022. Vital Signs: 14:38 BP 133 / 86; Pulse 115; Resp 20; Temp 97.6(TE); Pulse Ox 93% on R/A; Weight 120.66 kg; ph Height 5 ft. 7 in. (170.18 cm); 15:00 BP 118 / 82; Pulse 115; Resp 22 S; Pulse Ox 98% on R/A; jg9 15:15 BP 118 / 77; Pulse 110; Resp 20 S; Pulse Ox 98% on 4 lpm NC; jg9 16:45 BP 115 / 58; Pulse 108; Resp 20 S; Pulse Ox 99% on R/A; jg9 18:15 BP 120 / 58; Pulse 98; Resp 20 S; Pulse Ox 100% on 4 lpm NC; jg9 14:38 Body Mass Index 41.66 (120.66 kg, 170.18 cm) ph ED Course: 12:27 Patient arrived in ED. ds1 12:55 Cholo Johnson PA is PHCP. cp 12:55 Oral Cano DO is Attending Physician. cp 14:42 Triage completed. ph 14:42 Arm band placed on Patient placed in an exam room. ph 14:47 Renay Miguel, MARILU is Primary Nurse. jg9 15:00 Inserted saline lock: 20 gauge in left forearm, using aseptic technique. Blood jg9 collected. 15:23 Patient has correct armband on for positive identification. Bed in low position. Call jg9 light in reach. Side rails up X 1. 15:51 CT Abd/Pelvis - IV Contrast Only In Process Unspecified. EDMS 16:21 XRAY Chest (1 view) In Process Unspecified. EDMS 16:43 US Abdomen Limited: RUQ/epigastric In Process Unspecified. EDMS 18:12 Subhash Ross MD is Referral Physician. cp 18:33 No provider procedures requiring assistance completed. jg9 18:33 IV discontinued. jg9 Administered Medications: 15:13 Drug: Pepcid (famotidine) 20 mg Route: IVP; Site: left forearm; jg9 16:21 Follow up: Response: No adverse reaction; Pain is decreased jg9 15:17 Drug: Zofran (Ondansetron) 4 mg Route: IVP; Site: left forearm; jg9 16:22 Follow up: Response: No adverse reaction; Nausea is decreased jg9 16:39 Drug: Insulin Regular Human 10 units {Co-Signature: jonh (Sarah Beth Santillan RN).} Route: jg9 IVP; Site: left forearm; 16:51 Follow up: Response: No adverse reaction jg9 16:39 Drug: NS 0.9% 1000 ml Route: IV; Rate: 1 bolus; Site: left forearm; jg9 Point of Care Testing: Blood Glucose: 18:07 Blood Glucose: 158 mg/dL; jg9 Ranges: Outcome: 18:13 Discharge ordered by . cp 18:33 Discharged to home ambulatory. jg9 18:33 Condition: improved 18:33 Discharge instructions given to patient, family, Instructed on discharge instructions, follow up and referral plans. Demonstrated understanding of instructions, follow-up care, medications, Prescriptions given X 2. 18:34 Patient left the ED. jg9 Signatures: Dispatcher [employer] EDCT Deanna Tejada ds1 Lachelle Calderón, RN RN Cholo Pérez PA PA cp Gilmore, Jennifer, RN RN jg9 Sarah Beth borja
[2022-03-17 23:27] VITALS: TEMP 97.6
[2022-03-17 23:34] VITALS: BP 120/58; O2SAT 100
== END 2022-03-17 18:34 | disposition home or self-care (01) ==
LOC: ER 12:26
DX: R11.2 Nausea with vomiting, unspecified (principal); E11.9 Type 2 diabetes mellitus without complications; Z79.4 Long term (current) use of insulin; I10 Essential (primary) hypertension; Z79.01 Long term (current) use of anticoagulants; Z86.16 Personal history of COVID-19
CPT/HCPCS: 87088; 85025; 87086; 36415; 82010; 82947; 83690; 80053; 74177; 71045; 76705; 96375; 96374; 99284; Q9967; J1815; J7030; J2405; 81003; 81015; J3490

== ENCOUNTER 2022-11-04 17:14 | Emergency (ER) | payer OTHER ==
--- OUTSIDE RECORDS SUMMARY | 2022-11-04 17:19 | XMS REPORT | Continuity of Care Document ---
:1970 Author Organization [facility] t Address [address] [place] [address] Care Team Providers Name Role Phone ANSLEY GARIBAY Primary Care Physician Unavailable Lukasz Saul Attending Clinician Unavailable JAXON SUTTON Attending Clinician Unavailable EDER GONZALEZ Attending Clinician Unavailable Murali Zafar MD Attending Clinician Sachin Mcallister DO Attending Clinician Eder Gonzalez MD Attending Clinician Sang Rey Attending Clinician Unavailable Florence Botello RN Attending Clinician SACHIN MCALLISTER Attending Clinician Unavailable Annette Lemus Attending Clinician Fan Love MD Attending Clinician GERSON RUBIN Attending Clinician Unavailable Dustin Cervantes MD Attending Clinician Gerson Rubin MD Attending Clinician Doctor Unassigned, [place] Attending Clinician Unavailable Marlene Brown Attending Clinician [place] Admitting Clinician Unavailable SACHIN MCALLISTER Admitting Clinician Unavailable Sachin Mcallister DO Admitting Clinician Physician, No Primary or Family Admitting Clinician Unavaila ble Payers Payer Name Policy Type Policy Number Effective Date Expiration Date Kelsey BUNN [id number] 2021 NON-CONTRACT 00:00:00 GENERIC Problems Condition Condition Condition Status Onset Resolution Last Treating Co mments Source Name Details Category Date Date Treatment Clinician Date Chest Chest Disease Active 2021-11 Univers pain, pain, 0-05 ity of unspecif[place] type d type 00 [place] Morbid Morbid Disease Active 2021-11 Univers obesity obesity 0-05 [place] of with [place] mass [place] mass index 00 Me dical of of Branch 40.0-49.9 40.0-49.9 Elevated Elevated Disease Active 2021-11 Unive rs LFTs LFTs 0-05 ity of 00:00: [address] Diabetic Diabetic Disease Active Unive rs ketoacidos ketoacidos 5-23 it y of is without is without [place] coma coma 00 Medical associated associated Br anch with type with type 2 diabetes 2 diabetes mellitus mellitus Obesity Obesity Disease Active Univers (BMI (BMI 5-23 ity of 30-39.9) 30-39.9) 00:00: [address] No known No known Disease Unive rs active active ity of problems problems [facility] Allergies, Adverse Reactions, Alerts Allergy Allergy Status Severity Reaction(s) Onset Inactive Treating Comm ents Source Name Type Date Date Clinician No Known DA Active U 2021-11 [facility] Allergie 0-24 [place] [facility] NO KNOWN Drug Active Univers ALLERGIE Class ity of S [facility] Social History Social Habit Start Date Stop Date Quantity Comments Source History of Passive smoker University of tobacco use [facility] Exposure to 2022-08-24 2022-09-03 Yes University of SARS-CoV-2 00:00:00 21:23:00 [facility] (event) [place] Tobacco use and 2022-09-03 2022-09-03 Smokeless tobacco Un iversity of exposure 00:00:00 00:00:00 non-user [facility] Alcohol intake 2022-09-03 2022-09-03 Ex-drinker [facility] 00:00:00 00:00:00 (finding) [facility] Sex Ass[birth year] At [birth year] Universit y of 00:00:00 00:00:00 [facility] Smoking Status Start Date Stop Date Source Ex-smoker 2022-09-03 00:00:00 2022-09-03 00:00:00 Universi ty of [facility] Medications Ordered Filled Start Stop Current Ordering Indication Dosage Frequency Signature Comments Components Source Medication Medication Date Date Medication? Clinician (SIG) Name Name sulfur 2021-11- No [id number] 5mL 5 mL, Unive rs hexafluorid 0-06 09-04 Intravenou i ty of e microsphr 17:15: 17:15 s, ONCE, 1 [place] (LUMASON) 00 :00 dose, On Medica l injection 5 [place] Branch mL 09/04/22 at 1215, Routine
[employer] member approving Restricted medication : MAURA QUEEN aspirin 81 2021-11 Yes 81mg Take 81 mg U nivers mg chewable 0-06 by mouth ity of tablet 14:37: daily. [address] empaglifloz 2021-11 Yes 2{tbl} Take 2 Un ko in-metformi 0-06 tablets by it y of n 14:37: mouth 2 [place] (SYNJARDY) 28 (two) Medical 12.5-1,000 times Branch mg Tab daily. spironolact 2021-11 Yes 25mg Take 25 mg Univers one 25 mg 0-06 by mouth 2 ity of tablet 14:37: (two) [place] 28 times Medical daily. Branch omega-3-dha 2021-11 Yes Take by Uni vers -epa-dpa-fi 0-06 mouth 2 ity o f sh oil 14:37: (two) [place] (OMEGA-3 28 times Medical 2100) daily. Branch 1,050-1,200 mg Cap METOPROLOL 2021-11 Yes 50mg Take 50 mg U nivers SUCCINATE 0-06 by mouth 2 ity of ORAL 14:37: (two) [place] 28 times Medical daily. Branch atorvastati 2021-11 Yes 40mg Take 40 mg Univers n 20 mg 0-06 by mouth ity of tablet 14:37: at [place] 28 bedtime. Medical Branch pantoprazol 2021-11 Yes 40mg Take 40 mg Univers e 40 mg EC 0-06 by mouth 2 ity of tablet 14:37: (two) [place] 28 times Medical daily. Branch insulin 2021-11 Yes 35U inject 35 Unive rs regular, 0-06 Units ity of human 14:37: under the [place] (HUMULIN R 28 skin 2 Medical U-500, (two) Branch CONC, times INSULIN SC) daily. tirzepatide 2021-11 Yes 5mg inject 5 Un ko 5 mg/0.5 mL 0-06 mg under ity of subcutaneou 14:37: the skin [place] injection 28 weekly. Medic al Branch SITagliptin 2021-11 Yes 50mg 50 mg, Univ ers (JANUVIA) 0-06 Oral, ity of tablet 50 14:00: DAILY, [place] mg 00 First dose Medical on Thu Branch 09/04/22 at 0900, Until Discontinu ed, Routine insulin 2021-11- No inject Univers glargine,hu 0-06 10-06 under the it y of m.rec.anlog 13:06: 00:00 [place]. [place] (TOUJEO 04 :00 [facility] SOLOSTAR Branch U-300 INSULIN SC) apixaban 2021-11- No 5mg Take 5 mg Uni vers (ELIQUIS) 5 0-06 10-06 by mouth 2 i ty of mg tablet 13:06: 00:00 (two) [place] 04 :00 times Medical daily. Branch enoxaparin 2021-11 Yes 40mg 40 mg, Unive rs (LOVENOX) 0-06 Subcutaneo ity of injection 05:45: us, Q24H, [place] 40 mg 00 First dose Medical on Thu Branch 09/04/22 at 0045, Until Discontinu ed, Routine sennosides 2021-11 Yes 8.6mg 8.6 mg, Uni vers (SENOKOT) 0-06 Oral, BID, ity of tablet 8.6 04:45: First dose [place] mg 00 on Thu Medical 09/03/22 at Branch 2345, Until Discontinu ed, Routine docusate 2021-11 Yes 100mg 100 mg, Unive rs (COLACE) 0-06 Oral, BID, ity o f capsule 100 04:45: First dose [place] mg 00 on Thu Medical 09/03/22 at Branch 2345, Until Discontinu ed, Routine aspirin 2021-11 Yes 81mg 81 mg, Univers chewable 0-06 Oral, QAM ity of tablet 81 04:45: WITH [place] mg 00 BREAKFAST, Medical First dose Branch on Thu09/03/22 at 2345, Until Discontinu ed, Routine sucralfate 2021-11 Yes 1g 1,000 mg Uni vers (CARAFATE) 0-06 (1 g), ity of 100 mg/mL 04:45: Oral, [place] suspension 00 AC+HS, Medical 1,000 mg First dose Branc h on Thu09/03/22 at 2345, Until Discontinu ed, Routine pantoprazol 2021-11 Yes 40mg 40 mg, Univ ers e 0-06 Slow IV ity of (PROTONIX) 04:45: Push, [place] injection 00 Q12H, Medical 40 mg First dose Branch on Thu09/03/22 at 2345, Until Discontinu ed metoprolol 2021-11 Yes 50mg 50 mg, Unive rs tartrate 0-06 Oral, BID, ity o f (LOPRESSOR) 04:45: First dose [place] tablet 50 00 on Thu Medical mg 09/03/22 at Branch 2345, Until Discontinu ed, Routine insulin NPH 2021-11 Yes 35U 35 Units, U nivers and regular 0-06 Subcutaneo it y of human 70-30 04:45: us, BIDAC, [place] (70-30 00 First dose Medical U-100 on Thu [place] INSULIN) 09/03/22 at 100 unit/mL 2345, (70-30) Until injection Discontinu 35 Units ed, Routine atorvastati 2021-11 Yes 40mg 40 mg, Univ ers n (LIPITOR) 0-06 Oral, QHS, it y of tablet 40 04:45: [place] mg 00 on Thu Medical 09/03/22 at Branch 2345, Until Discontinu ed, Routine furosemide 2021-11 No 20mg 20 mg, IV U nivers (LASIX) 0-06 10-06 Push, Q8H, ity o f injection 04:45: 13:50 First dose [place] 20 mg 00 :16 on [facility] Medical 09/03/22 at Branch 2345, Until Discontinu ed, [place] ondansetron 2021-11 Yes 4mg 4 mg, Slow Univers (ZOFRAN 0-06 IV Push, ity of (PF)) 04:33: Q6HPRN, [place] injection 4 54 Starting Medi mariam mg on Thu Branch 09/03/22 at 2333, Until Discontinu ed, Routine, Nausea and Vomiting (N/V) Sliding 2021-11 Yes Subcutaneo [facility] [place] ers Scale 0-06 us, TID ity of Insulin - 04:30: MEALS+HS, [place] Lispro 00 First dose Medical (HumaLOG) + on Thu Branch Fsbg 09/03/22 at Testing 2330, Until Discontinu ed, Routine nitroglycer 2021-11- No .4mg 0.4 mg, Un ko in 0-05 10-05 Sublingual ity of (NITROSTAT) 22:30: 22:34 , ONCE, 1 [place] sublingual 00 :00 dose, On Medic al tablet 0.4 [facility] Branch mg 09/03/22 at 1730, [place] magnesium 2021- No 400mg 400 mg, Uni vers oxide 04-24 05-27 Oral, BID, ity of (MAG-OX 01:00: 12:59 3 doses, [place] 400) tablet 00 :00 First dose Me dical 400 mg on Wed Branch 04/23/22 at 2000, Last dose on [place] 04/24/22 at 1999, Routine maalox:diph Yes 15mL 15 mL, [facility] [place] ers enhydrAMINE 5-25 Oral, ity of :lidocaine 15:47: QDAILYPRN, [place] 2 % viscous 15 Starting Medi mariam 1:1:1 on Thu Branch (FIRST-[facility]OUT 04/23/22 at [facility]) 1047, oral Until suspension Discontinu 15 mL ed, Routine, indigestio n insulin Yes inject Univers glargine,hu 5-25 under the ity of m.rec.anlog 15:15: skin. [place] (TOUJEO 25 [facility] U-300 INSULIN SC) aspirin 81 Yes 81mg Take 81 mg U nivers mg chewable 5-25 by mouth ity of tablet 15:15: daily. [place] 25 [facility] Branch empaglifloz Yes 2{tbl} Take 2 Un ko in-metformi 5-25 tablets by it y of n 15:15: mouth 2 [place] (SYNJARDY) 25 (two) Medical 12.5-1,000 times Branch mg Tab daily. apixaban Yes 5mg Take 5 mg Univ ers (ELIQUIS) 5 5-25 by mouth 2 it y of mg tablet 15:15: (two) [place] 25 times Medical daily. Branch spironolact Yes 25mg Take 25 mg Univers one 25 mg 5-25 by mouth 2 ity of tablet 15:15: (two) [place] 25 times Medical daily. Branch insulin Yes inject Univers glargine,hu 5-25 under the ity of mPresleyrecPresleyanlog 15:15: skin. [place] ([facility] aspirin 81 Yes 81mg Take 81 mg U nivers mg chewable 5-25 by mouth ity of tablet 15:15: daily. [place] [facility] Branch empaglifloz Yes 2{tbl} Take 2 Un ko in-metformi 5-25 tablets by it y of n 15:15: mouth 2 [place] (SYNJARDY) 25 (two) Medical 12.5-1,000 times Branch mg Tab daily. apixaban Yes 5mg Take 5 mg Univ ers (ELIQUIS) 5 5-25 by mouth 2 it y of mg tablet 15:15: (two) [place] 25 times Medical daily. Branch spironolact Yes 25mg Take 25 mg Univers one 25 mg 5-25 by mouth 2 ity of tablet 15:15: (two) [place] 25 times Medical daily. Branch KCL 2021- No 40meq 40 mEq, Univers (KLOR-CON 04-23 05-25 Oral, ity of M20) tablet 14:15: 15:57 ONCE, 1 [place] 40 mEq 00 :00 dose, On Medical Wed Branch 04/23/22 at 0915, Routine insulin 2021- No inject Univers glargine,hu 5-25 05-25 under the it y of mPresleyrec.anlog 10:54: 00:00 skin. [place] (LANTUS [place]) 26 :00 Medical Branch sitagliptin 2021- No Take by Un ko phosphate 04-23- mouth. ity of (JANUVIA 10:54: 00:00 [place] ORAL) 26 :00 Medical Branch atorvastati 2021- No 40mg Take 40 mg Univers n calcium 04-23 by mouth. ity of (LIPITOR 10:54: 00:00 [place] ORAL) 26 :00 Medical Branch METOPROLOL 2021- No 50mg Take 50 mg Univers TARTRATE 04-23 by mouth 2 ity of ORAL 10:54: 00:00 (two) [place] 26 :00 times Medical daily. Branch morpHINE (2 Yes [id number] 2mg 2 mg, Slow Univers mg/mL) 5-25 IV Push, ity of injection 2 10:16: Q4HPRN, [place] mg 57 Starting Medical on Thu Branch 04/23/22 at 0516, Until Discontinu ed, Routine, Pain (scale 7-10) Sliding Yes Subcutaneo Univ ers Scale 5-25 us, Q3H, ity of Insulin - 03:00: First dose [place] Lispro 00 on [facility] (HumaLOG) + 04/22/22 at Br [facility] Fsbg 2200, Testing Until Discontinu ed, Routine insulin Yes 25U 25 Units, Unive rs glargine 5-25 Subcutaneo ity o f (LANTUS 03:00: us, Q12H, [place] U-100) 00 First dose Medical injection on [facility] Branch 25 Units 04/22/22 at 2200, Until Discontinu ed, Routine glucagon 2021-0 Yes 1mg 1 mg, Univers (GLUCAGEN 5-25 Intramuscu ity of DIAGNOSTIC 02:55: lar, PRN, [place] KIT) 16 Starting Medical injection 1 on [facility] Branch mg 04/22/22 at 2155, Until Discontinu ed, [place], Blood Glucose < or = 70 mg/dL and patient is unable to swallow or has mental changes. dextrose 50 2022-0 Yes 25mL 25 mL, Univ ers % in water 5-25 Slow IV ity of (D50W) 02:55: Push, PRN, [place] injection 16 Starting Medica l 25 mL on Tue Branch 04/22/22 at 2155, Until Discontinu ed, [place], Blood Glucose < or = 70 mg/dL and patient is unable to swallow or has mental status changes. sucralfate 2021- No [id number] 1g Take 1 Univers 1 gram 5-25 06-25 tablet by ity of tablet 00:00: 04:59 mouth [place] 00 :00 before Medical meals and Branch at bedtime for 30 days. pantoprazol 2021- No [id number] 40mg Take 1 Univers e 40 mg EC 5-25 06-25 tablet by ity of tablet 00:00: 04:59 mouth 2 [place] 00 :00 (two) Medical times Branch daily for 30 days. metoprolol 2021- No [id number] 50mg Take 1 Univers tartrate 50 5-25 06-25 tablet by it y of mg tablet 00:00: 04:59 mouth 2 [place] 00 :00 (two) Medical times Branch daily for 30 days. atorvastati 2021- No [id number] 40mg Take 1 Univers n (LIPITOR) 5-25 06-25 tablet by it y of 40 mg 00:00: 04:59 mouth at [place] tablet 00 :00 bedtime Medical for 30 Branch days. sucralfate 2021- No [id number] 1g Take 1 Univers 1 gram 5-25 06-25 tablet by ity of tablet 00:00: 04:59 mouth [place] 00 :00 before Medical meals and Branch at bedtime for 30 days. pantoprazol 2021- No [id number] 40mg Take 1 Univers e 40 mg EC 5-25 06-25 tablet by ity of tablet 00:00: 04:59 mouth 2 [place] 00 :00 (two) Medical times Branch daily for 30 days. metoprolol 2021- No [id number] 50mg Take 1 Univers tartrate 50 5-25 06-25 tablet by it y of mg tablet 00:00: 04:59 mouth 2 [place] 00 :00 (two) Medical times Branch daily for 30 days. atorvastati 2021- No [id number] 40mg Take 1 Univers n (LIPITOR) 5-25 06-25 tablet by it y of 40 mg 00:00: 04:59 mouth at [place] tablet 00 :00 bedtime Medical for 30 Branch days. magnesium 2021- No [id number] 400mg Take 400 Univers oxide 420 5-25 06-10 mg by ity of mg Tab 00:00: 04:59 mouth [place] 00 :00 daily for Medical 15 days. [place] magnesium 2021- No [id number] 400mg Take 400 Univers oxide 420 5-25 06-10 mg by ity of mg Tab 00:00: 04:59 mouth [place] 00 :00 daily for Medical 15 days. [place] sucralfate Yes 1g 1 g, Oral, U nivers (CARAFATE) 524 AC+HS, ity of tablet 1 g 21:30: First dose [place] on [facility] 04/22/22 at Branch 1630, Until Discontinu ed, Routine morpHINE (4 2021- No [id number] 2mg 2 mg, Slow Univers mg/mL) 24 05-24 IV Push, ity of injection 2 16:15: 15:15 ONCE, 1 [place] mg 00 :00 dose, On [facility] 04/22/22 at 1115, Routine SITagliptin Yes 50mg 50 mg, Univ ers (JANUVIA) 5-24 Oral, ity of tablet 50 14:00: DAILY, [place] mg 00 First dose Medical on [facility] 04/22/22 at 0900, Until Discontinu ed aspirin Yes 81mg 81 mg, Univers chewable 5-24 Oral, ity of tablet 81 14:00: DAILY, [place] mg 00 First dose Medical on [facility] 04/22/22 at 0900, Until Discontinu ed, Routine metoprolol Yes 25mg 25 mg, Unive rs tartrate 5-24 Oral, BID, ity o f (LOPRESSOR) 13:00: First dose [place] tablet 25 00 on [facility] mg 04/22/22 at Branch 0800, Until Discontinu ed, Routine apixaban 2022-0 Yes 5mg 5 mg, Univers (ELIQUIS) 5-24 Oral, BID, ity of tablet 5 mg 13:00: First dose [place] 00 on Thu04/22/22 at Branch 0800, Until Discontinu ed, Routine
Indicatio ns: Non-Valvul ar Atrial Fibrillati on pantoprazol Yes 40mg 40 mg, Univ ers e 5-24 Oral, BID, ity of (PROTONIX) 13:00: First dose [place] EC tablet 00 on Thu Medical 40 mg 04/22/22 at Branch 0800, Until Discontinu ed, Routine D5W 0.9% 2021- No IV Univers NaCl (NS) 1 04-22 0525 Infusion, it y of L + KCL 40 13:00: 02:32 at 200 [place] mEq 00 :18 mL/hr, Medical CONTINUOUS Branch , Starting on Thu04/22/22 at 0800, Until Thu04/22/22 at 2132, Routine ondansetron Yes 4mg 4 mg, Slow Univers (ZOFRAN 04-22 IV Push, ity of (PF)) 12:18: Q6HPRN, [place] injection 4 40 Nausea and Me dical mg Vomiting Branch (N/V), Starting on Thu04/22/22 at 0718
Do ses of ondansetro n 16 mg and above need to be administer ed via IV piggyback. For Dose >=24mg ECG monitoring is advisable.
atorvastati Yes 40mg 40 mg, Univ ers n (LIPITOR) 5-24 Oral, QHS, it y of tablet 40 02:00: First dose [place] mg 00 on Thu04/21/22 at Branch 2100, Until Discontinu ed, Routine pantoprazol 2021- No [id number] 40mg 40 mg, Univers e 04-2224 Slow IV ity of (PROTONIX) 01:00: 00:00 Push, [place] injection 00 :00 ONCE, 1 Medical 40 mg dose, On Branch Thu04/21/22 at 2000 NaCl 0.9% 0 2021- No [id number] 2000mL at 999 Univers (NS) bolus 5-24 05-23 mL/hr, ity of infusion 01:00: 23:59 2,000 mL, Alex as 2,000 mL 00 :00 IV Medical Infusion, Branch ONCE, 1 dose, On Thu04/21/22 at 2000, [place] ondansetron 2021- No [id number] 4mg 4 mg, Slow Univers (ZOFRAN 04-22 IV Push, ity of (PF)) 00:30: 23:26 ONCE, 1 [place] injection 4 00 :00 dose, On Medi mariam mg [facility] 04/21/22 at 1930, [place] morpHINE (4 2021- No [id number] 4mg 4 mg, Slow Univers mg/mL) 04-22 IV Push, ity of injection 4 00:30: 23:26 ONCE, 1 [place] mg 00 :00 dose, On Medical [facility] 04/21/22 at 1930, STAT D5W 0.45% 2021- No [id number] 1000mL at 200 Univers NaCl 04-22 mL/hr, ity of (1/2NS) IV 00:21: 11:50 1,000 mL, [place] infusion 22 :31 IV Medical 1,000 mL Infusion, Branch PRN - SEE INSTRUCTIO NS, Starting on Thu04/21/22 at 1921, Until Thu04/22/22 at 0650, [place] iopamidol 2021- No [id number] 120mL 120 mL, Univers (ISOVUE 04-21 Intravenou ity o f 370-500 mL) 22:15: 00:26 s, ONCE, 1 [place] injection 00 :00 dose, On Medica l 120 mL [facility] 04/21/22 at 1715, Routine esomeprazol 2020-11- No Take by Un ko e magnesium 11-30 mouth. ity o f (NEXIUM 14:20: 00:00 [place] ORAL) 21 :00 [facility] insulin 2020-11 Yes inject Univers glargine, 11-30 under the ity of m.rec.anlog 13:40: skin. [place] (LANTUS SC) 16 [facility] insulin 2020-11 Yes inject Univers glargine,hu 11-30 under the ity of m.rec.anlog 13:40: skin. [place] (TOUJEO [address] [place] [address] SOLOSTAR Branch U-300 INSULIN SC) sitagliptin 2020-11 Yes Take by Uni vers phosphate 11-30 mouth. ity of (JANUVIA 13:40: [place] ORAL) [address] [place] [address] Branch atorvastati 2020-11 Yes Take by Uni vers n calcium 11-30 mouth. ity of (LIPITOR 13:40: [place] ORAL) [address] [place] [address] Branch METOPROLOL 2020-11 Yes Take by [facility] [place] ers TARTRATE 11-30 mouth. ity of ORAL 13:40: [address] aspirin 81 2020-11 Yes 81mg Take 81 mg U nivers mg chewable 11-30 by mouth ity of tablet 13:40: daily. [address] Branch pantoprazol 2020-11 Yes [id number] 40mg Take 1 Univers e 40 mg EC 1 tablet by ity of tablet 00:00: mouth 2 [place] 00 (two) Medical times Branch daily. pantoprazol 2020-11- No [id number] 40mg Take 1 Univers e 40 mg EC 1 05-25 tablet by ity of tablet 00:00: 00:00 mouth 2 [place] 00 :00 (two) Medical times Branch daily. sucralfate Yes [id number] 1g Take 1 U nivers 1 gram 8-03 tablet by ity of tablet 00:00: mouth [place] 00 before Medical meals and Branch at bedtime. ondansetron Yes [id number] 4mg Take 1 Univers (ZOFRAN 8-03 tablet by ity of ODT) 4 mg 00:00: mouth [place] disintegrat 00 every 8 Medic al ing tablet (eight) Branch hours as needed for Nausea and Vomiting (N/V). ondansetron Yes [id number] 4mg Take 1 Univers (ZOFRAN 8-03 tablet by ity of ODT) 4 mg 00:00: mouth [place] disintegrat 00 every 8 Medic al ing tablet (eight) Branch hours as needed for Nausea and Vomiting (N/V). ondansetron Yes [id number] 4mg Take 1 Univers (ZOFRAN 8-03 tablet by ity of ODT) 4 mg 00:00: mouth [place] disintegrat 00 every 8 Medic al ing tablet (eight) Branch hours as needed for Nausea and Vomiting (N/V). ondansetron Yes [id number] 4mg Take 1 Univers (ZOFRAN 8-03 tablet by ity of ODT) 4 mg 00:00: mouth [place] disintegrat 00 every 8 Medic al ing tablet (eight) Branch hours as needed for Nausea and Vomiting (N/V). sucralfate 2021- No [id number] 1g Take 1 Univers 1 gram 8- 05-25 tablet by ity of tablet 00:00: 00:00 mouth [place] 00 :00 before Medical meals and Branch at bedtime. Vital Signs Vital Name Observation Time Observation Value Comments Source Systolic blood 2022-09-04 17:00:00 129 mm[Hg] Univer sity of [facility] Diastolic blood 2022-09-04 17:00:00 84 mm[facility]Hg[facility] 2022-09-04 17:00:00 85 /min [facility] Oxygen saturation in 2022-09-04 17:00:00 94 /min University of Arterial blood by [place] aiHit mariam Pulse oximetry Branch Body temperature 2022-09-04 16:21:00 36.33 Chen [facility] Respiratory rate 2022-09-04 16:21:00 18 /min [facility] Body height 2022-09-03 22:04:00 170.2 cm [facility] Body weight 2022-09-03 22:04:00 122.834 kg [facility] BMI 2022-09-03 22:04:00 42.41 kg/m2 [facility] Systolic blood 2022-04-23 18:00:00 109 mm[Hg] [facility] 2022-04-23 18:00:00 56 mm[Hg] Unive rsity [facility] [place] [place] Heart rate 2022-04-23 18:00:00 85 /min [facility] Respiratory rate 2022-04-23 18:00:00 20 /min [facility] [place] [facility] saturation in 2022-04-23 17:00:00 97 /min University of Arterial blood by [place] [facility] Pulse oximetry Branch Body temperature 2022-04-23 16:30:00 36.72 Chen [facility] [place] [facility] Body height 2022-04-21 22:46:00 170.2 cm Universi ty [facility] Body weight 2022-04-21 22:46:00 113.399 kg Universi [facility] BMI 2022-04-21 22:46:00 39.16 kg/m2 Universi [facility] Systolic blood 2021-09-30 18:36:00 125 mm[Hg] [facility] Diastolic blood 2021-09-30 18:36:00 81 mm[Hg] [facility] 2021-09-30 18:36:00 120 /min [facility] Body temperature 2021-09-30 18:36:00 36.61 Chen [facility] Body height 2021-09-30 18:36:00 170.2 cm Universi [facility] Body weight 2021-09-30 18:36:00 99.066 kg [facility] BMI 2021-09-30 18:36:00 34.21 kg/m2 [facility] Oxygen saturation in 2021-09-30 18:36:00 93 /min [facility] Arterial blood by [facility] Pulse oximetry [place] Procedures Procedure Date / Time Performing Clinician Source Performed POCT GLUCOSE (AUTOMATED) 2022-09-04 16:52:00 Sachin Mcallister [facility] US GALL BLADDER 2022-09-04 15:00:00 Jaxon Sutton [facility] POCT GLUCOSE (AUTOMATED) 2022-09-04 12:51:00 Sachin Mcallister [facility] TROPONIN I 2022-09-04 11:06:00 Jaxon Sutton [facility] COMP. METABOLIC PANEL 2022-09-04 11:06:00 Jaxon Sutton [facility] ([id number]) [facility] ACUTE CARE VENOUS BLOOD 2022-09-04 11:06:00 Jaxon Sutton [facility] GAS [facility] CBC WITH DIFF 2022-09-04 11:06:00 Lesley, [facility] N-TERMINAL PRO-BNP 2022-09-04 11:06:00 Lesley kristin [facility] PHOSPHORUS 2022-09-04 05:55:00 Lesley [facility] URIC ACID 2022-09-04 05:55:00 Lesley [facility] MAGNESIUM 2022-09-04 05:55:00 Lesley [facility] TROPONIN I 2022-09-04 05:55:00 Lesley [facility] THYROID STIMULATING 2022-09-04 05:55:00 Lesley [facility] [facility] [place] HORMONE [facility] LIPID PANEL ([id number])(TOTAL 2022-09-04 05:55:00 Jaxon Sutton [facility] CHOLESTEROL, [facility] TRIGLYCERIDES, HDL) SEDIMENTATION RATE 2022-09-04 05:55:00 [facility] PROTHROMBIN TIME / INR 2022-09-04 05:55:00 Lesley [facility]in [facility] HEPATITIS B SURFACE 2022-09-04 05:55:00 Lesley [facility] [place] ANTIBODY [facility] HEPATITIS B SURFACE 2022-09-04 05:55:00 Lesley [facility] [place] ANTIGEN [facility] HCV ANTIBODY 2022-09-04 05:55:00 Lesley [facility] HAV ANTIBODY (IGG AND 2022-09-04 05:55:00 Lesley [facility] IGM) [facility] PROCALCITONIN 2022-09-04 05:55:00 Lesley [facility] POCT GLUCOSE (AUTOMATED) 2022-09-04 05:31:00 Sachin Mcallister [facility] XR CHEST 1 VW 2022-09-03 22:42:00 Andrade [facility] LIPASE 2022-09-03 22:26:00 Andrade [facility] TROPONIN I 2022-09-03 22:26:00 Andrade [facility] COMP. METABOLIC PANEL 2022-09-03 22:26:00 Murali Zafar [facility] ([id number]) Medical Branch CBC WITH DIFF 2022-09-03 22:26:00 Murali Zafar [facility] GLYCOSYLATED HEMOGLOBIN 2022-09-03 22:26:00 Jaxon Sutton [facility] (A1C) Medical Branch ACTIVATED PARTIAL 2022-09-03 22:26:00 Murali Zafar [facility] THRMPLAS KAR [facility] N-TERMINAL PRO-BNP 2022-09-03 22:26:00 Murali Zafar [facility] NOTICE OF PRIVACY 2022-09-03 21:52:55 Doctor Unassigned, [facility] PRACTICES [facility] [place] CONSENT/REFUSAL FOR 2022-09-03 21:52:24 Doctor Unassigned, [facility] DIAGNOSIS AND TREATMENT [facility] POCT GLUCOSE (AUTOMATED) 2022-04-23 18:58:00 Fan Love Uni [facility] POCT GLUCOSE (AUTOMATED) 2022-04-23 15:35:00 Fan Love Uni [facility] POCT GLUCOSE (AUTOMATED) 2022-04-23 12:41:00 Fan Love [facility] POCT GLUCOSE (AUTOMATED) 2022-04-23 11:33:00 Fan Love Uni [facility] MAGNESIUM 2022-04-23 09:33:00 Esvin [facility] BASIC METABOLIC PANEL 2022-04-23 09:33:00 Sachin Mcallister [facility] (NA, K, CL, CO2, GLUCOSE, Medica l Branch BUN, CREATININE, CA) POCT GLUCOSE (AUTOMATED) 2022-04-23 09:33:00 Fan Love [facility] POCT GLUCOSE (AUTOMATED) 2022-04-23 07:17:00 Fan Love Uni [facility] POCT GLUCOSE (AUTOMATED) 2022-04-23 05:25:00 Fan Love Uni [facility] POCT GLUCOSE (AUTOMATED) 2022-04-23 04:07:00 Fan Love Uni [facility] POCT GLUCOSE (AUTOMATED) 2022-04-23 03:09:00 [facility] ([facility]) 2022-04-23 02:22:00 Fan Love Uni versity [facility] BASIC METABOLIC PANEL 2022-04-23 01:15:00 Annette Holland [facility] (NA, K, CL, CO2, GLUCOSE, Medica l Branch BUN, CREATININE, CA) POCT GLUCOSE (AUTOMATED) 2022-04-23 01:15:00 Fan Love Uni versity [facility] POCT GLUCOSE (AUTOMATED) 2022-04-23 00:02:00 Fan Love [facility] versity [facility] POCT GLUCOSE (AUTOMATED) 2022-04-22 23:01:00 Sachin Mcallister [facility] versity [facility] POCT GLUCOSE (AUTOMATED) 2022-04-22 22:05:00 Sachin Mcallister [facility] BASIC METABOLIC PANEL 2022-04-22 21:05:00 Annette Holland [facility] (NA, K, CL, CO2, GLUCOSE, Medica l Branch BUN, CREATININE, CA) POCT GLUCOSE (AUTOMATED) 2022-04-22 21:02:00 Sachin Mcallister [facility] PO[facility]UCOSE (AUTOMATED) 2022-04-22 19:45:00 Sachin Mcallister [facility] POCT GLUCOSE (AUTOMATED) 2022-04-22 18:42:00 Sachin Mcallister [facility] POCT GLUCOSE (AUTOMATED) 2022-04-22 17:22:00 Fan Love [facility] POCT GLUCOSE (AUTOMATED) 2022-04-22 16:05:00 Fan Love [facility] TROPONIN I 2022-04-22 15:33:00 Sachin Mcallister [facility] BASIC METABOLIC PANEL 2022-04-22 15:33:00 Annette Holland [facility] (NA, K, CL, CO2, GLUCOSE, Medica l Branch BUN, CREATININE, CA) CBC WITH DIFF 2022-04-22 15:33:00 Fan Love [facility] POCT GLUCOSE (AUTOMATED) 2022-04-22 14:25:00 Fan Love Uni [facility] POCT GLUCOSE (AUTOMATED) 2022-04-22 13:39:00 Fan Love Uni [facility] POCT GLUCOSE (AUTOMATED) 2022-04-22 12:26:00 Fan Love Uni [facility] POCT GLUCOSE (AUTOMATED) 2022-04-22 11:30:00 Fan Love Uni [facility] BASIC METABOLIC PANEL 2022-04-22 10:51:00 Annette Holland [facility] (NA, K, CL, CO2, GLUCOSE, Medica l Branch BUN, CREATININE, CA) POCT GLUCOSE (AUTOMATED) 2022-04-22 10:47:00 Fan Love Uni [facility] POCT GLUCOSE (AUTOMATED) 2022-04-22 10:44:00 Fan Love Uni [facility] POCT GLUCOSE (AUTOMATED) 2022-04-22 09:32:00 Fan Love Uni [facility] POCT GLUCOSE (AUTOMATED) 2022-04-22 08:34:00 Fan Love Uni [facility] BASIC METABOLIC PANEL 2022-04-22 07:39:00 Annette Holland [facility] (NA, K, CL, CO2, GLUCOSE, Medica l Branch BUN, CREATININE, CA) POCT GLUCOSE (AUTOMATED) 2022-04-22 07:33:00 Fan Love Uni [facility] POCT GLUCOSE (AUTOMATED) 2022-04-22 06:29:00 Fan Love Uni [facility] BASIC METABOLIC PANEL 2022-04-22 05:30:00 Annette Holland [facility] (NA, K, CL, CO2, GLUCOSE, Medica l Branch BUN, CREATININE, CA) POCT GLUCOSE (AUTOMATED) 2022-04-22 05:29:00 Fan Love Uni [facility] POCT GLUCOSE (AUTOMATED) 2022-04-22 04:32:00 Fan [facility] POCT GLUCOSE (AUTOMATED) 2022-04-22 03:40:00 Fan Love [facility] MRSA / MSSA SCREEN BY 2022-04-22 03:30:00 Fan Love [facility] PCR, NARES [facility] LACTIC ACID WHOLE BLOOD 2022-04-22 03:09:00 [facility] 2022-04-22 02:14:00 Fan Love [facility] COVID-19 (ID NOW RAPID 2022-04-22 01:25:00 Annette Holland [facility] TESTING) [facility] [place] LAB ONLY COVID 2022-04-22 01:25:00 [facility] URINALYSIS 2022-04-22 01:23:00 [facility] 2022-04-22 01:14:00 Annette Holland [facility] (NA, K, CL, CO2, GLUCOSE, Medica l Branch BUN, CREATININE, CA) OSMOLALITY, SERUM OR 2022-04-22 01:11:00 Annette Holland [facility] PLASMA [facility] BETA HYDROXY-BUTYRATE 2022-04-22 01:11:00 Annette Holland [facility] POCT GLUCOSE (AUTOMATED) 2022-04-22 01:08:00 Fan Love [facility] CT ABDOMEN PELVIS W 2022-04-22 00:25:33 Annette Holland [facility] CONTRAST [facility] XR CHEST 1 VW 2022-04-22 00:18[facility] + LACTIC ACID 2022-04-22 00:04:00 [facility] 2022-04-21 23:11:00 Annette Holland [facility] PHOSPHORUS 2022-04-21 23:05:00 Annette Holland [facility] LIPASE 2022-04-21 23:05:00 [facility] MAGNESIUM 2022-04-21 23:05:00 Annette Holland [facility] TROPONIN I 2022-04-21 23:05:00 Annette Holland [facility] COMP. METABOLIC PANEL 2022-04-21 23:05:00 Annette Holland [facility] ([id number]) [facility] CBC WITH DIFF 2022-04-21 23:05:00 Annette Holland [facility] GLYCOSYLATED HEMOGLOBIN 2022-04-21 23:05:00 Annette Holland [facility] (A1C) [facility] PROTHROMBIN TIME / INR 2022-04-21 23:05:00 Annette Holland [facility] N-TERMINAL PRO-BNP 2022-04-21 23:05:00 Annette Holland [facility] HB ECG ROUTINE & RHYTHM 2022-04-21 22:57:52 Annette Holland [facility] CONSENT/REFUSAL FOR 2022-04-21 22:36:06 Doctor Unajeimy, [facility] DIAGNOSIS AND TREATMENT [facility] NOTICE OF PRIVACY 2022-04-21 22:34:32 Doctor Unasslili, [facility] PRACTICES [facility] Encounters Start End Encounter Admission Attending Care Care Encounter Source Date/Time Date/Time Type Type Clinicians Facility Department ID 2022-10-31 2022-10-31 Outpatient SFA SFA [id number] Ron 13:11:41 13:11:41 [address] 2022-09-24 2022-09-24 Outpatient Lukasz Bejarano [facility] ENDO LA0 [id number] [facility] 08:23:00 08:23:00 28 [facility] 2022-09-08 2022-09-08 Outpatient Butch SUTTON [facility] [id number] Univers 00:00:00 00:00:00 JAXON [facility] 2022-09-03 2022-09-04 Outpatient Mj GONZALEZ [facility] JOSE ENRIQUE [id number] Univers 17:08:00 13:45:00 EDER [facility] 2022-09-03 2022-09-04 Emergency Murali Zafar [facility] 1.2.840. 114 [id number] Univers 17:08:00 13:45:00 Sachin Mcallister 350.1.13.10 ity of Eder Gonzalez 4.2.7.2.686 [facility] [id number] [facility] 0[address] Branch 2022-08-20 2022-08-20 Outpatient FELICIANO Rey [facility] CPUL [id number] [facility] 19:28:00 19:28:00 Sang 80 [facility] 2022-04-24 2022-04-24 Transition TIFFANIE Botello 1.2.840.114 [id number] Univers 00:00:00 00:00:00 of Care Florence SANCHEZ 350.1.13.10 i ty of [place] 4.2.7.2.686 [facility] [id number] [facility] [address] 2022-04-21 2022-04-23 Inpatient X ESVIN [facility] [id number] Univers 17:49:00 15:15:00 SACHIN mcknight [facility] 2022-04-21 2022-04-23 [facility] Annette Holland [facility] 1.2.840. 114 [id number] Univers 17:49:00 15:15:00 Encounter Fan Love 350.1.13.10 ity of Sachin Mcallister 4.2.7.2.686 [facility] [id number] [facility] [address] [place] 2021-12-24 2021-12-24 Outpatient COH COH PIJFIFF DTZ COH 00:00:00 00:00:00 -[id number] 2021-09-30 2021-09-30 Outpatient Butch RUBIN [facility] [id number] Univers 14:00:00 14:00:00 GERSON mcknight [facility] 2021-09-30 2021-09-30 Office Dustin Cervantes [facility] 1.2.8 40.114 [id number] Univers 13:25:55 13:55:55 Visit Gerson Rubin 350.1.13 .10 [id number] [facility] [address] [place] [address] 2021-09-30 2021-09-30 Orders Doctor MUÑOZ 1.2.840.114 [id number] Univers 00:00:00 00:00:00 Only Unassigned, ALYSHA 350.1.13.10 ity of [facility] 4.2.7.2.686 Alex as [id number] [facility] [address] [place] 2021-08-09 2021-08-09 Orders Doctor WANDA 1.2.840.114 [id number] Univers 00:00:00 00:00:00 Only Unassigned, ALYSHA 350.1.13.10 ity of [facility] 4.2.7.2.686 Alex as [id number] [address] 2021-07-02 2021-07-02 Emergency Taylor, [facility] 1.2.811.965 [id number] Univers 15:02:00 21:52:00 Marlene Caballero 350.1.13.10 i ty of [place] [id number] [facility] [address] [place] 2021-07-02 2021-07-02 Emergency X [facility] ERT [id number] Univers 14:36:00 14:36:00 [facility] Results Test Description Test Time Test Comments Results Result Comments Source - XR CHEST 1 V 2022-09-24 09:27:00 [facility] 1970 Sex: M * Name: DANIEL LEHMAN [facility] : 1970 Age/S: 51 / M [address] Unit #: [id number] Loc: [place] [address] Phys: Randall Veloz MD Acct: [id number] Dis Date: Status: REG [facility] PHONE #: [phone] Exam Date: 09/24/2022909 FAX #: Reason: PRE OP EXAMS: CPT: [id number] XR CHEST 1 V 37857 Fluoro Time: DAP (Gy m2): Air Kerma (mGy): EXAMINATION: - XR CHEST 1 V. LOCATION: 9. HISTORY: PRE OP, GERD. COMPARISON: None. FINDINGS: Examination is limited due to portable technique and patient body habitus. Cardiac silhouette/Mediastin al contour: Prominence of cardiac silhouette. Lungs: No focal consolidation. No large pleural effusion. Osseous Structures: Mild degenerative changes affect thoracic spine. IMPRESSION: No focal consolidation. Prominence of cardiac silhouette. at 0927 Reported and signed by: Sil Hooks M.D. CC: Randall Veloz MD; Lukasz Saul MD PAGE 1 Signed Report Name: [facility] [place] [facility] 1970 Age/S: 51 / M [id number] Unit #: [id number] Loc: [place] [address] Phys: Randall Veloz MD Acct: [id number] Dis Date: Status: [facility] PHONE #: [phone] Exam Date: 09/24/202210 FAX #: Reason: PRE OP EXAMS: CPT: [id number] XR CHEST 1 V 94101 Fluoro Time: DAP (Gy m2): Air Kerma (mGy): (Continued) Technologist: Delano Sorenson, RT(R)(CT) Trnscb Date/Time: 09/24/2022 (926) [email or web address] Orig Print D/T: S: 09/24/2022 (30) PAGE 2 Signed Report CBC W/AUTO DIFF 2022-09-24 09:06:00 Test Item Value Reference Range Interpretation Comme nts WHITE BLOOD CELL (test code = WBC) 8.4 K/mm3 3.5-11.0 N RED BLOOD CELL (test code = RBC) 4.98 M/mm3 4.70-6.10 N HEMOGLOBIN (test code = HGB) 14.1 G/DL 12.3-15.9 N HEMATOCRIT (test code = HCT) 44.1 % 35.8-46.7 N MEAN CELL VOLUME (test code = MCV) 88.6 Fl 86.3-98.9 N MEAN CELL HGB (test code = MCH) 28.3 pg 28.9-34.4 L MEAN CELL HGB CONCETRATION (test code = MCHC) 32.0 G/DL 32.1-34. 5 L RED CELL DISTRIBUTION WIDTH (test code = RDW) 16.9 SD 11.5-14. 5 H PLATELET COUNT (test code = PLT) 259 K/mm3 150-450 N MEAN PLATELET VOLUME (test code = MPV) 8.70 fL 7.0-9.6 N NEUTROPHIL % (test code = NT%) 53.7 % 40-76 N IMMATURE GRANULOCYTE % (test code = IG%) 0.8 % 0.0-5.0 N LYMPHOCYTE % (test code = LY%) 35.4 % 20.5-51.1 N MONOCYTE % (test code = MO%) 8.2 % 1.7-9.3 N EOSINOPHIL % (test code = EO%) 1.3 % 0.0-6.0 N BASOPHIL % (test code = BA%) 0.6 % 0.0-2.0 N NUCLEATED RBC % (test code = NRBC%) 0.0 /100WBC% 0.0-1.0 N NEUTROPHIL # (test code = NT#) 4.5 K/mm3 1.8-7.6 N IMMATURE GRANULOCYTE # (test code = IG#) 0.07 x10 3/uL 0.00-0.03 H LYMPHOCYTE # (test code = LY#) 3.0 K/mm3 0.6-3.0 N MONOCYTE # (test code = MO#) 0.7 K/mm3 0.2-1.5 N EOSINOPHIL # (test code = EO#) 0.1 K/mm3 0.0-0.4 N BASOPHIL # (test code = BA#) 0.1 K/mm3 0.0-0.2 N NUCLEATED RBC # (test code = NRBC#) 0.0 K/mm3 0.00-0.01 N MANUAL DIFF REQUIRED (test code = MDIFF) NO DIFF/SCN CRITERIA BASIC METABOLIC [id number] 09:00:00 Test Item Value Reference Range Interpretation Comments SODIUM (test code = NA) 139 mmol/L 134-147 N POTASSIUM (test code = 4.0 mmol/L 3.4-5.0 N K) CHLORIDE (test code = 105 mmol/L 100-108 N CL) CARBON DIOXIDE (test 27 mmol/L 21-32 N code = CO2) ANION GAP (test code = 7.0 GAP calc 4.0-15.0 N GAP) GLUCOSE (test code = 169 MG/DL 70-110 H GLU) BLOOD UREA NITROGEN 14 MG/DL 7-18 N (test code = BUN) GLOMERULAR FILTRATION >=60 max estimate >60 RATE (test code = GFR) estGFR CREATININE (test code = 0.8 MG/DL 0.8-1.3 N CREAT) CALCIUM (test code = CA) 8.9 MG/DL 8.5-10.1 N COVID 19 INHOUSE [id number] 08:52:00 Test Item Value Reference Range Interpretation Comments COVID 19 INHOUSE AG NEGATIVE Negative Per manu facturer, (test code = negative result s should [id number]) be treated aspr esumptive and, if inconsi stent with clinical signs andsymptoms or necessary for patient man agement, should betested with an alternative mol ecular assay. Negative resultsdo not preclude SA RS-CoV-2 infection and s hould not be usedas the s ole basis for patient man agement decisions. Nega tive results should be considered in t he context of apatient's r ecent exposures, hist ory, presence of cli nicalsigns and symptoms co nsistent with COVID-19. POCT GLUCOSE (AUTOMATED)2022-09-04 16:57:56 Test Item Value Reference Range Interpretation Comments POCT GLU (test code = 9131864451) 193 mg/dL 70-110 H Lab Interpretation (test code = Abnormal 52753-2) [facility] GLUCOSE (AUTOMATED)2022-09-04 13:42:12 Test Item Value Reference Range Interpretation Comments POCT GLU (test code = 4185445442) 185 mg/dL 70-110 H Lab Interpretation (test code = Abnormal 27422-0) [facility] 05:36:51 Test Item Value Reference Range Interpretation Comments POCT GLU (test code = 2510568245) 204 mg/dL 70-110 H Lab Interpretation (test code = Abnormal 00931-9) [facility] (A1C)2022-09-04 05:24:19 Test Item Value Reference Range Interpretation Comments HGB A1C (test code = 9.2 % 4-5.7 H 4548-4) ZULEIMA (test code = ZULEIMA) Reference RangesNormal: <5.7%Prediabetes: 5.7 - 6.4%Diabetes: > 6.5% Lab Interpretation (test Abnormal code = 51278-3) [facility] [id number] 22:58:29 Test Item Value Reference Interpretation Comments Range TROPONIN I (test 0.002 ng/mL See_Comment [Automated code = 5967327604) message] The system which generated this result transmitted reference range : <=0.034. The reference range was not used to interpret this result as normal/abnormal . ZULEIMA (test code = Reference (Normal) ZULEIMA) Range (defined by the 99th percentile reference limit): <= 0.034 ng/mL Note: Cardiac troponin begins to rise 3-4 hours after the onset of ischemia. Repeat in 4-6 hours if the sample was drawn within 3-4 hours of the onset of the symptom and found normal. Diagnosis of myocardial injury is made with acute changes in cTn concentrations with at least one serial sample above the 99th percentile upper reference limit (URL), taken together with the patient's clinical presentation. Biotin has been reported to cause a negative bias, interpret results relative to patient's use of biotin. Lab Interpretation Normal (test code = 80767-5) [facility] [id number] 22:55:11 Test Item Value Reference Range Interpretation Comments NT-proBNP (test code 29 pg/mL See_Comment [Autom ated = 3845511702) message] The system which generated this result transmitted reference range : <=125. The reference range was not used to interpret this result as normal/abnormal . ZULEIMA (test code = ZULEIMA) Biotin has been reported to cause a negative bias, interpret results relative to patient's use of biotin. Lab Interpretation Normal (test code = 90235-6) [facility] Center[facility] THRMPLAS [id number] 22:51:28 Test Item Value Reference Range Interpretation Comments APTT Patient (test See_Comment L [Automat ed code = 3173-2) message] The system which generated this result transmitted reference range : 23 - 38 Seconds . The reference range was not used to interpr et this result as normal/abnormal . ZULEIMA (test code = ZULEIMA) The [facility] patient population mean normal value for aPTT is 30 seconds. Lab Interpretation Abnormal (test code = 99641-9) [facility]OLIC PANEL (86801)2022-09-03 22:46:28 Test Item Value Reference Range Interpretation Comments NA (test code = 137 mmol/L 135-145 4769747838) K (test code = 5.1 mmol/L 3.5-5 H 5132360365) CL (test code = 103 mmol/L 98-108 3571933053) CO2 TOTAL (test code = 21 mmol/L 23-31 L 2252220593) AGAP (test code = 2-16 4914780085) BUN (test code = 18 mg/dL 7-23 8932923495) GLUCOSE (test code = 360 mg/dL 70-110 H 6912164140) CREATININE (test code = 0.84 mg/dL 0.6-1.25 1283059210) TOTAL BILI (test code = 0.7 mg/dL 0.1-1.1 9457794469) CALCIUM (test code = 9.2 mg/dL 8.6-10.6 6524257456) T PROTEIN (test code = 6.7 g/dL 6.3-8.2 3077727972) ALBUMIN (test code = 4.3 g/dL 3.5-5 4378037590) ALK PHOS (test code = 140 U/L 34-122 H 4566959853) ALTv (test code = 727 U/L 5-50 H 1742-6) AST(SGOT) (test code = 348 U/L 13-40 H 5421717236) eGFR (test code = mL/min/1.73m2 6831917491) ZULEIMA (test code = ZULEIMA) Association of Glomerular Filtration Rate (GFR) and Staging of Kidney Disease* + --+ --+ ------+| GFR (mL/min/1.73 m2) ?| With Kidney Damage ?| ?Without Kidney Damage+ --------+ --------+ +| ?>90 ?| ?Stage one ?| ? Normal ?+ ---+ ---+ -------+| ?60-89 ?| ?Stage two ?| ? Decreased GFR ? + --+ --+ ------+| ?30-59 ?| ?Stage three ?| ? Stage three ? + --+ --+ ------+| ?15-29 ?| ?Stage four ? | ? Stage four ?+ ---+ ---+ -------+| ?<15 (or dialysis) ? ?| ?Stage five ? | ? Stage five ?+ ---+ ---+ -------+ *Each stage assumes the associated GFR level has been in effect for at least three months. ?Stages 1 to 5, with or without kidney disease, indicate chronic kidney disease. Notes: Determination of stages one and two (with eGFR >59mL/min/1.73 m2) requires estimation of kidney damage for at least three months as defined by structural or functional abnormalities of the kidney, manifested by either:Pathological abnormalities or Markers of kidney damage (including abnormalities in the composition of the blood or urine or abnormalities in imaging tests). Lab Interpretation Abnormal (test code = 46948-4) [facility] Center[facility]2022-[facility] 22:46:09 Test Item Value Reference Range Interpretation Comments LIPASE (test code = 6434614066) 252 U/L 0-220 H Lab Interpretation (test code = Abnormal 97666-1) [facility] CenterCB WITH [id number] 22:35:24 Test Item Value Reference Range Interpretation Comments WBC (test code = See_Comment [Automated 6523-2) message] The sy stem which generated this result transmitted reference range : 4.20 - 10.70 10*3/?L. The reference range was not used to interpret this result as normal/abnormal . RBC (test code = See_Comment [Automated 864-1) message] The sy stem which generated this result transmitted reference range : 4.26 - 5.52 10*6/?L. The reference range was not used to interpret this result as normal/abnormal . HGB (test code = 15.1 g/dL 12.2-16.4 718-7) HCT (test code = 46.3 % 38.4-49.3 4544-3) MCV (test code = 86.9 fL 81.7-95.6 787-2) MCH (test code = 28.3 pg 26.1-32.7 785-6) MCHC (test code = 32.6 g/dL 31.2-35 786-4) RDW-SD (test code = 50.6 fL 38.5-51.6 26100-0) RDW-CV (test code = 16.0 % 12.1-15.4 H 788-0) PLT (test code = See_Comment [Automated 777-3) message] The sy stem which generated this result transmitted reference range : 150 - 328 10*3/ ?L. The reference r oleg was not used to interpret this result as normal/abnormal . MPV (test code = 9.1 fL 9.8-13 L 02849-8) NRBC/100 WBC (test See_Comment [Automat ed code = 8527231513) message] The system which generated this result transmitted reference range : 0.0 - 10.0 /100 WBCs. The refer ence range was not u sed to interpret th is result as normal/abnormal . NRBC x10^3 (test code See_Comment [Auto mated = 2477555685) message] The s ystem which generated this result transmitted reference range : 10*3/?L. The reference range was not used to interpret this result as normal/abnormal . GRAN MAT (NEUT) % 74.4 % (test code = 770-8) IMM GRAN % (test code 1.60 % = 3348501967) LYMPH % (test code = 17.8 % 736-9) MONO % (test code = 5.7 % 5905-5) EOS % (test code = 0.1 % 713-8) BASO % (test code = 0.4 % 706-2) GRAN MAT x10^3(ANC) 6.35 10*3/uL 1.99-6.95 (test code = 3352117891) IMM GRAN x10^3 (test 0.14 10*3/uL 0-0.06 H code = 6815792944) LYMPH x10^3 (test code 1.52 10*3/uL 1.09-3.23 = 731-0) MONO x10^3 (test code 0.49 10*3/uL 0.36-1.02 = 742-7) EOS x10^3 (test code = 0.06-0.53 L 711-2) BASO x10^3 (test code 0.03 10*3/uL 0.01-0.09 = 704-7) Lab Interpretation Abnormal (test code = 14850-2) [facility] GLUCOSE (AUTOMATED)2022-04-23 19:01:02 Test Item Value Reference Range Interpretation Comments POCT GLU (test code = 5704270675) 174 mg/dL 70-110 H Lab Interpretation (test code = Abnormal 60067-1) [facility] GLUCOSE (AUTOMATED)2022-04-23 16:43:23 Test Item Value Reference Range Interpretation Comments POCT GLU (test code = 4598869588) 162 mg/dL 70-110 H Lab Interpretation (test code = Abnormal 84243-1) [facility] GLUCOSE (AUTOMATED)2022-04-23 15:37:41 Test Item Value Reference Range Interpretation Comments POCT GLU (test code = 5100713495) 130 mg/dL 70-110 H Lab Interpretation (test code = Abnormal 56324-2) [facility] GLUCOSE (AUTOMATED)2022-04-23 12:54:00 Test Item Value Reference Range Interpretation Comments POCT GLU (test code = 8796788639) 135 mg/dL 70-110 H Lab Interpretation (test code = Abnormal 06869-0) [facility] METABOLIC PANEL (NA, K, CL, CO2, GLUCOSE, BUN, CREATININE, CA)2022-04-23 11:38:26 Test Item Value Reference Range Interpretation Comments NA (test code = 137 mmol/L 135-145 9068944403) K (test code = 3.2 mmol/L 3.5-5.0 L 4492942328) CL (test code = 110 mmol/L 98-108 H 4638153378) CO2 TOTAL (test code = 19 mmol/L 23-31 L 7017380690) AGAP (test code = 2-16 7882495035) BUN (test code = <2 7-23 L 4495482359) GLUCOSE (test code = 121 mg/dL 70-110 H 1967052578) CREATININE (test code = 0.67 mg/dL 0.60-1.25 5216941820) CALCIUM (test code = 7.7 mg/dL 8.6-10.6 L 6274083088) eGFR (test code = mL/min/1.73m2 9207027832) ZULEIMA (test code = ZULEIMA) Association of Glomerular Filtration Rate (GFR) and Staging of Kidney Disease* + --+ --+ ------+| GFR (mL/min/1.73 m2) ?| With Kidney Damage ?| ?Without Kidney Damage+ --------+ --------+ +| ?>90 ?| ?Stage one ?| ? Normal ?+ ---+ ---+ -------+| ?60-89 ?| ?Stage two ?| ? Decreased GFR ? + --+ --+ ------+| ?30-59 ?| ?Stage three ?| ? Stage three ? + --+ --+ ------+| ?15-29 ?| ?Stage four ? | ? Stage four ?+ ---+ ---+ -------+| ?<15 (or dialysis) ? ?| ?Stage five ? | ? Stage five ?+ ---+ ---+ -------+ *Each stage assumes the associated GFR level has been in effect for at least three months. ?Stages 1 to 5, with or without kidney disease, indicate chronic kidney disease. Notes: Determination of stages one and two (with eGFR >59mL/min/1.73 m2) requires estimation of kidney damage for at least three months as defined by structural or functional abnormalities of the kidney, manifested by either:Pathological abnormalities or Markers of kidney damage (including abnormalities in the composition of the blood or urine or abnormalities in imaging tests). Lab Interpretation Abnormal (test code = 47867-0) [facility] GLUCOSE (AUTOMATED)2022-04-23 11:35:25 Test Item Value Reference Range Interpretation Comments POCT GLU (test code = 9250616208) 135 mg/dL 70-110 H Lab Interpretation (test code = Abnormal 58088-0) [facility] Test Item Value Reference Range Interpretation Comments MAGNESIUM (test code = 1101764160) 1.7 mg/dL 1.7-2.4 Lab Interpretation (test code = Normal 34556-9) [facility] GLUCOSE (AUTOMATED)2022-04-23 09:37:57 Test Item Value Reference Range Interpretation Comments POCT GLU (test code = 4116882473) 107 mg/dL 70-110 Lab Interpretation (test code = Normal 81205-4) [facility] GLUCOSE (AUTOMATED)2022-04-23 07:22:08 Test Item Value Reference Range Interpretation Comments POCT GLU (test code = 4305712146) 146 mg/dL 70-110 H Lab Interpretation (test code = Abnormal 11425-8) [facility] GLUCOSE (AUTOMATED)2022-04-23 05:29:09 Test Item Value Reference Range Interpretation Comments POCT GLU (test code = 8834185586) 142 mg/dL 70-110 H Lab Interpretation (test code = Abnormal 00826-4) [facility] GLUCOSE (AUTOMATED)2022-04-23 04:10:18 Test Item Value Reference Range Interpretation Comments POCT GLU (test code = 6991754118) 148 mg/dL 70-110 H Lab Interpretation (test code = Abnormal 22899-7) [facility] GLUCOSE (AUTOMATED)2022-04-23 02:27:55 Test Item Value Reference Range Interpretation Comments POCT GLU (test code = 0212586651) 160 mg/dL 70-110 H Lab Interpretation (test code = Abnormal 89112-8) [facility] Metabolic Panel (Na, K, Cl, CO2, Glucose, BUN, Creatinine, Ca)2022-04-23 01:58:18 Test Item Value Reference Range Interpretation Comments NA (test code = 137 mmol/L 135-145 6976961654) K (test code = 3.6 mmol/L 3.5-5.0 2305139017) CL (test code = 109 mmol/L 98-108 H 5425594725) CO2 TOTAL (test code = 17 mmol/L 23-31 L 2555444411) AGAP (test code = 2-16 7639717140) BUN (test code = <2 7-23 L 0851190166) GLUCOSE (test code = 162 mg/dL 70-110 H 3399721790) CREATININE (test code = 0.62 mg/dL 0.60-1.25 5749569440) CALCIUM (test code = 8.2 mg/dL 8.6-10.6 L 2052455129) eGFR (test code = mL/min/1.73m2 0220504280) ZULEIMA (test code = ZULEIMA) Association of Glomerular Filtration Rate (GFR) and Staging of Kidney Disease* + --+ --+ ------+| GFR (mL/min/1.73 m2) ?| With Kidney Damage ?| ?Without Kidney Damage+ --------+ --------+ +| ?>90 ?| ?Stage one ?| ? Normal ?+ ---+ ---+ -------+| ?60-89 ?| ?Stage two ?| ? Decreased GFR ? + --+ --+ ------+| ?30-59 ?| ?Stage three ?| ? Stage three ? + --+ --+ ------+| ?15-29 ?| ?Stage four ? | ? Stage four ?+ ---+ ---+ -------+| ?<15 (or dialysis) ? ?| ?Stage five ? | ? Stage five ?+ ---+ ---+ -------+ *Each stage assumes the associated GFR level has been in effect for at least three months. ?Stages 1 to 5, with or without kidney disease, indicate chronic kidney disease. Notes: Determination of stages one and two (with eGFR >59mL/min/1.73 m2) requires estimation of kidney damage for at least three months as defined by structural or functional abnormalities of the kidney, manifested by either:Pathological abnormalities or Markers of kidney damage (including abnormalities in the composition of the blood or urine or abnormalities in imaging tests). Lab Interpretation Abnormal (test code = 59036-2) [facility] GLUCOSE (AUTOMATED)2022-04-23 01:21:32 Test Item Value Reference Range Interpretation Comments POCT GLU (test code = 9805614793) 142 mg/dL 70-110 H Lab Interpretation (test code = Abnormal 38482-8) [facility] GLUCOSE (AUTOMATED)2022-04-23 00:05:03 Test Item Value Reference Range Interpretation Comments POCT GLU (test code = 7939831014) 148 mg/dL 70-110 H Lab Interpretation (test code = Abnormal 16911-9) [facility] GLUCOSE (AUTOMATED)2022-04-22 23:06:57 Test Item Value Reference Range Interpretation Comments POCT GLU (test code = 7496050011) 144 mg/dL 70-110 H Lab Interpretation (test code = Abnormal 96806-1) [facility] GLUCOSE (AUTOMATED)2022-04-22 22:12:45 Test Item Value Reference Range Interpretation Comments POCT GLU (test code = 4256549916) 145 mg/dL 70-110 H Lab Interpretation (test code = Abnormal 67623-4) [id number] 21:43:14 Test Item Value Reference Interpretation Comments Range TROPONIN I (test 0.003 ng/mL See_Comment [Automated code = 0794050791) message] The system which generated this result transmitted reference range : <=0.034. The reference range was not used to interpret this result as normal/abnormal . ZULEIMA (test code = Reference (Normal) ZULEIMA) Range (defined by the 99th percentile reference limit): <= 0.034 ng/mL Note: Cardiac troponin begins to rise 3-4 hours after the onset of ischemia. Repeat in 4-6 hours if the sample was drawn within 3-4 hours of the onset of the symptom and found normal. Diagnosis of myocardial injury is made with acute changes in cTn concentrations with at least one serial sample above the 99th percentile upper reference limit (URL), taken together with the patient's clinical presentation. Biotin has been reported to cause a negative bias, interpret results relative to patient's use of biotin. Lab Interpretation Normal (test code = 43389-6) [facility] Metabolic Panel (Na, K, Cl, CO2, Glucose, BUN, Creatinine, Ca)2022-04-22 21:31:09 Test Item Value Reference Range Interpretation Comments NA (test code = 134 mmol/L 135-145 L 9191557328) K (test code = 3.9 mmol/L 3.5-5.0 0875813598) CL (test code = 108 mmol/L 98-108 2869181428) CO2 TOTAL (test code = 15 mmol/L 23-31 L 0676479381) AGAP (test code = 2-16 4868049367) BUN (test code = 2 mg/dL 7-23 L 3280542425) GLUCOSE (test code = 170 mg/dL 70-110 H 5508697048) CREATININE (test code = 0.62 mg/dL 0.60-1.25 8820325090) CALCIUM (test code = 8.3 mg/dL 8.6-10.6 L 6785503231) eGFR (test code = mL/min/1.73m2 0790254520) ZULEIMA (test code = ZULEIMA) Association of Glomerular Filtration Rate (GFR) and Staging of Kidney Disease* + --+ --+ ------+| GFR (mL/min/1.73 m2) ?| With Kidney Damage ?| ?Without Kidney Damage+ --------+ --------+ +| ?>90 ?| ?Stage one ?| ? Normal ?+ ---+ ---+ -------+| ?60-89 ?| ?Stage two ?| ? Decreased GFR ? + --+ --+ ------+| ?30-59 ?| ?Stage three ?| ? Stage three ? + --+ --+ ------+| ?15-29 ?| ?Stage four ? | ? Stage four ?+ ---+ ---+ -------+| ?<15 (or dialysis) ? ?| ?Stage five ? | ? Stage five ?+ ---+ ---+ -------+ *Each stage assumes the associated GFR level has been in effect for at least three months. ?Stages 1 to 5, with or without kidney disease, indicate chronic kidney disease. Notes: Determination of stages one and two (with eGFR >59mL/min/1.73 m2) requires estimation of kidney damage for at least three months as defined by structural or functional abnormalities of the kidney, manifested by either:Pathological abnormalities or Markers of kidney damage (including abnormalities in the composition of the blood or urine or abnormalities in imaging tests). Lab Interpretation Abnormal (test code = 94419-0) [facility] GLUCOSE (AUTOMATED)2022-04-22 21:08:08 Test Item Value Reference Range Interpretation Comments POCT GLU (test code = 4430472565) 156 mg/dL 70-110 H Lab Interpretation (test code = Abnormal 40743-6) [facility] GLUCOSE (AUTOMATED)2022-04-22 19:48:36 Test Item Value Reference Range Interpretation Comments POCT GLU (test code = 9906882643) 154 mg/dL 70-110 H Lab Interpretation (test code = Abnormal 77134-6) [facility] GLUCOSE (AUTOMATED)2022-04-22 18:44:52 Test Item Value Reference Range Interpretation Comments POCT GLU (test code = 5905482460) 146 mg/dL 70-110 H Lab Interpretation (test code = Abnormal 18538-9) [facility] GLUCOSE (AUTOMATED)2022-04-22 17:28:16 Test Item Value Reference Range Interpretation Comments POCT GLU (test code = 6107148667) 148 mg/dL 70-110 H Lab Interpretation (test code = Abnormal 99452-0) [facility] Metabolic Panel (Na, K, Cl, CO2, Glucose, BUN, Creatinine, Ca)2022-04-22 16:11:05 Test Item Value Reference Range Interpretation Comments NA (test code = 134 mmol/L 135-145 L 1912794878) K (test code = 3.8 mmol/L 3.5-5.0 8881255716) CL (test code = 106 mmol/L 98-108 1712837589) CO2 TOTAL (test code = 15 mmol/L 23-31 L 7801929242) AGAP (test code = 2-16 6636202178) BUN (test code = 4 mg/dL 7-23 L 4227776004) GLUCOSE (test code = 179 mg/dL 70-110 H 2012720014) CREATININE (test code = 0.68 mg/dL 0.60-1.25 0632726427) CALCIUM (test code = 8.5 mg/dL 8.6-10.6 L 4547467576) eGFR (test code = mL/min/1.73m2 4846077132) ZULEIMA (test code = ZULEIMA) Association of Glomerular Filtration Rate (GFR) and Staging of Kidney Disease* + --+ --+ ------+| GFR (mL/min/1.73 m2) ?| With Kidney Damage ?| ?Without Kidney Damage+ --------+ --------+ +| ?>90 ?| ?Stage one ?| ? Normal ?+ ---+ ---+ -------+| ?60-89 ?| ?Stage two ?| ? Decreased GFR ? + --+ --+ ------+| ?30-59 ?| ?Stage three ?| ? Stage three ? + --+ --+ ------+| ?15-29 ?| ?Stage four ? | ? Stage four ?+ ---+ ---+ -------+| ?<15 (or dialysis) ? ?| ?Stage five ? | ? Stage five ?+ ---+ ---+ -------+ *Each stage assumes the associated GFR level has been in effect for at least three months. ?Stages 1 to 5, with or without kidney disease, indicate chronic kidney disease. Notes: Determination of stages one and two (with eGFR >59mL/min/1.73 m2) requires estimation of kidney damage for at least three months as defined by structural or functional abnormalities of the kidney, manifested by either:Pathological abnormalities or Markers of kidney damage (including abnormalities in the composition of the blood or urine or abnormalities in imaging tests). Lab Interpretation Abnormal (test code = 46335-5) [facility] 16:10:40 Test Item Value Reference Range Interpretation Comments POCT GLU (test code = 0948249187) 157 mg/dL 70-110 H Lab Interpretation (test code = Abnormal 26531-7) [facility] WITH [id number] 15:48:43 Test Item Value Reference Range Interpretation Comments WBC (test code = See_Comment [Automated 1890-2) message] The sy stem which generated this result transmitted reference range : 4.20 - 10.70 10*3/?L. The reference range was not used to interpret this result as normal/abnormal . RBC (test code = See_Comment [Automated 115-3) message] The sy stem which generated this result transmitted reference range : 4.26 - 5.52 10*6/?L. The reference range was not used to interpret this result as normal/abnormal . HGB (test code = 13.7 g/dL 12.2-16.4 718-7) HCT (test code = 40.6 % 38.4-49.3 4544-3) MCV (test code = 85.3 fL 81.7-95.6 787-2) MCH (test code = 28.8 pg 26.1-32.7 785-6) MCHC (test code = 33.7 g/dL 31.2-35.0 786-4) RDW-SD (test code = 38.5 fL 38.5-51.6 25951-3) RDW-CV (test code = 12.4 % 12.1-15.4 788-0) PLT (test code = See_Comment [Automated 777-3) message] The sy stem which generated this result transmitted reference range : 150 - 328 10*3/ ?L. The reference r oleg was not used to interpret this result as normal/abnormal . MPV (test code = 9.2 fL 9.8-13.0 L 60309-9) NRBC/100 WBC (test See_Comment [Automat ed code = 5898131025) message] The system which generated this result transmitted reference range : 0.0 - 10.0 /100 WBCs. The refer ence range was not u sed to interpret th is result as normal/abnormal . NRBC x10^3 (test code <0.01 See_Comment [Auto mated = 0167554821) message] The s ystem which generated this result transmitted reference range : 10*3/?L. The reference range was not used to interpret this result as normal/abnormal . GRAN MAT (NEUT) % 69.0 % (test code = 770-8) IMM GRAN % (test code 0.40 % = 6053544567) LYMPH % (test code = 18.9 % 736-9) MONO % (test code = 9.1 % 5905-5) EOS % (test code = 2.0 % 713-8) BASO % (test code = 0.6 % 706-2) GRAN MAT x10^3(ANC) 6.20 10*3/uL 1.99-6.95 (test code = 6953157591) IMM GRAN x10^3 (test 0.04 10*3/uL 0.00-0.06 code = 1345663583) LYMPH x10^3 (test code 1.70 10*3/uL 1.09-3.23 = 731-0) MONO x10^3 (test code 0.82 10*3/uL 0.36-1.02 = 742-7) EOS x10^3 (test code = 0.18 10*3/uL 0.06-0.53 711-2) BASO x10^3 (test code 0.05 10*3/uL 0.01-0.09 = 704-7) Lab Interpretation Abnormal (test code = 84076-0) [facility] GLUCOSE (AUTOMATED)2022-04-22 14:27:15 Test Item Value Reference Range Interpretation Comments POCT GLU (test code = 6432219557) 150 mg/dL 70-110 H Lab Interpretation (test code = Abnormal 14897-5) [facility] GLUCOSE (AUTOMATED)2022-04-22 13:41:45 Test Item Value Reference Range Interpretation Comments POCT GLU (test code = 7061124027) 149 mg/dL 70-110 H Lab Interpretation (test code = Abnormal 82527-8) [facility] GLUCOSE (AUTOMATED)2022-04-22 12:29:18 Test Item Value Reference Range Interpretation Comments POCT GLU (test code = 7344582421) 174 mg/dL 70-110 H Lab Interpretation (test code = Abnormal 27283-9) [facility] GLUCOSE (AUTOMATED)2022-04-22 11:33:37 Test Item Value Reference Range Interpretation Comments POCT GLU (test code = 1590728122) 159 mg/dL 70-110 H Lab Interpretation (test code = Abnormal 83689-2) [facility] Metabolic Panel (Na, K, Cl, CO2, Glucose, BUN, Creatinine, Ca)2022-04-22 11:30:20 Test Item Value Reference Range Interpretation Comments NA (test code = 133 mmol/L 135-145 L 6529664733) K (test code = 3.3 mmol/L 3.5-5.0 L 6283842932) CL (test code = 104 mmol/L 98-108 9681727839) CO2 TOTAL (test code = 14 mmol/L 23-31 L 6441723538) AGAP (test code = 2-16 2776012331) BUN (test code = 4 mg/dL 7-23 L 7786017093) GLUCOSE (test code = 172 mg/dL 70-110 H 7224049891) CREATININE (test code = 0.77 mg/dL 0.60-1.25 8914439331) CALCIUM (test code = 8.6 mg/dL 8.6-10.6 6415706891) eGFR (test code = mL/min/1.73m2 4494671949) ZULEIMA (test code = ZULEIMA) Association of Glomerular Filtration Rate (GFR) and Staging of Kidney Disease* + --+ --+ ------+| GFR (mL/min/1.73 m2) ?| With Kidney Damage ?| ?Without Kidney Damage+ --------+ --------+ +| ?>90 ?| ?Stage one ?| ? Normal ?+ ---+ ---+ -------+| ?60-89 ?| ?Stage two ?| ? Decreased GFR ? + --+ --+ ------+| ?30-59 ?| ?Stage three ?| ? Stage three ? + --+ --+ ------+| ?15-29 ?| ?Stage four ? | ? Stage four ?+ ---+ ---+ -------+| ?<15 (or dialysis) ? ?| ?Stage five ? | ? Stage five ?+ ---+ ---+ -------+ *Each stage assumes the associated GFR level has been in effect for at least three months. ?Stages 1 to 5, with or without kidney disease, indicate chronic kidney disease. Notes: Determination of stages one and two (with eGFR >59mL/min/1.73 m2) requires estimation of kidney damage for at least three months as defined by structural or functional abnormalities of the kidney, manifested by either:Pathological abnormalities or Markers of kidney damage (including abnormalities in the composition of the blood or urine or abnormalities in imaging tests). Lab Interpretation Abnormal (test code = 92538-6) [facility] GLUCOSE (AUTOMATED)2022-04-22 10:56:08 Test Item Value Reference Range Interpretation Comments POCT GLU (test code = 0330891775) 157 mg/dL 70-110 H Lab Interpretation (test code = Abnormal 78650-8) [facility] GLUCOSE (AUTOMATED)2022-04-22 10:56:03 Test Item Value Reference Range Interpretation Comments POCT GLU (test code = 6380510525) 96 mg/dL 70-110 Lab Interpretation (test code = Normal 06170-5) [facility] GLUCOSE (AUTOMATED)2022-04-22 09:35:36 Test Item Value Reference Range Interpretation Comments POCT GLU (test code = 3135153319) 158 mg/dL 70-110 H Lab Interpretation (test code = Abnormal 18831-0) [facility] GLUCOSE (AUTOMATED)2022-04-22 08:36:40 Test Item Value Reference Range Interpretation Comments POCT GLU (test code = 3170164333) 166 mg/dL 70-110 H Lab Interpretation (test code = Abnormal 24541-3) [facility] Metabolic Panel (Na, K, Cl, CO2, Glucose, BUN, Creatinine, Ca)2022-04-22 08:00:14 Test Item Value Reference Range Interpretation Comments NA (test code = 133 mmol/L 135-145 L 4806345630) K (test code = 3.6 mmol/L 3.5-5.0 8666800215) CL (test code = 103 mmol/L 98-108 5725995450) CO2 TOTAL (test code = 14 mmol/L 23-31 L 1638183623) AGAP (test code = 2-16 7744339404) BUN (test code = 5 mg/dL 7-23 L 2573421226) GLUCOSE (test code = 172 mg/dL 70-110 H 3144512119) CREATININE (test code = 0.85 mg/dL 0.60-1.25 3132320245) CALCIUM (test code = 9.0 mg/dL 8.6-10.6 2841861591) eGFR (test code = mL/min/1.73m2 6571536056) ZULEIMA (test code = ZULEIMA) Association of Glomerular Filtration Rate (GFR) and Staging of Kidney Disease* + --+ --+ ------+| GFR (mL/min/1.73 m2) ?| With Kidney Damage ?| ?Without Kidney Damage+ --------+ --------+ +| ?>90 ?| ?Stage one ?| ? Normal ?+ ---+ ---+ -------+| ?60-89 ?| ?Stage two ?| ? Decreased GFR ? + --+ --+ ------+| ?30-59 ?| ?Stage three ?| ? Stage three ? + --+ --+ ------+| ?15-29 ?| ?Stage four ? | ? Stage four ?+ ---+ ---+ -------+| ?<15 (or dialysis) ? ?| ?Stage five ? | ? Stage five ?+ ---+ ---+ -------+ *Each stage assumes the associated GFR level has been in effect for at least three months. ?Stages 1 to 5, with or without kidney disease, indicate chronic kidney disease. Notes: Determination of stages one and two (with eGFR >59mL/min/1.73 m2) requires estimation of kidney damage for at least three months as defined by structural or functional abnormalities of the kidney, manifested by either:Pathological abnormalities or Markers of kidney damage (including abnormalities in the composition of the blood or urine or abnormalities in imaging tests). Lab Interpretation Abnormal (test code = 84407-8) [facility]sm[facility] [id number] 07:46:08 Test Item Value Reference Range Interpretation Comments OSMOLALITY (test code = See_Comment [Au tomated message] 2692-2) The system [employer] generated this result transmitted ref erence range: 278 - 30 5 mOsm/kg. The re ference range was not u sed to interpret this result as normal/abnor mal. Lab Interpretation (test Normal code = 31327-3) [facility] GLUCOSE (AUTOMATED)2022-04-22 07:36:29 Test Item Value Reference Range Interpretation Comments POCT GLU (test code = 2998794406) 144 mg/dL 70-110 H Lab Interpretation (test code = Abnormal 12014-9) [facility] GLUCOSE (AUTOMATED)2022-04-22 07:36:29 Test Item Value Reference Range Interpretation Comments POCT GLU (test code = 7888653270) 168 mg/dL 70-110 H Lab Interpretation (test code = Abnormal 22153-4) [facility] CenterBetahydroxy-Rdbvpjyd6194-60-13 07:26:24 Test Item Value Reference Range Interpretation Comments BOH (test code = 3.1 mmol/L 2986840248) ZULEIMA (test code = Normal Ranges: ? ? ZULEIMA) Nonfasting ? Less than 0.1 mmol/L ? ? Overnight Fast ? ? ? Less than 0.4 mmol/L ? ? Fasting (1-2 weeks) ?6-8 mmol/L Test developed and characteristics determined by [facility] Laboratory Services. [facility]2022-04-22 06:32:35 Test Item Value Reference Range Interpretation Comments POCT GLU (test code = 8901108475) 155 mg/dL 70-110 H Lab Interpretation (test code = Abnormal 24244-1) [facility] Metabolic Panel (Na, K, Cl, CO2, Glucose, BUN, Creatinine, Ca)2022-04-22 06:02:22 Test Item Value Reference Range Interpretation Comments NA (test code = 134 mmol/L 135-145 L 4464049856) K (test code = 3.6 mmol/L 3.5-5.0 2138562465) CL (test code = 104 mmol/L 98-108 3693327940) CO2 TOTAL (test code = 11 mmol/L 23-31 L 6962947387) AGAP (test code = 2-16 H 1105189704) BUN (test code = 7 mg/dL 7-23 3531646977) GLUCOSE (test code = 177 mg/dL 70-110 H 4374724515) CREATININE (test code = 0.81 mg/dL 0.60-1.25 3434654647) CALCIUM (test code = 9.0 mg/dL 8.6-10.6 9735002315) eGFR (test code = mL/min/1.73m2 3859740402) ZULEIMA (test code = ZULEIMA) Association of Glomerular Filtration Rate (GFR) and Staging of Kidney Disease* + --+ --+ ------+| GFR (mL/min/1.73 m2) ?| With Kidney Damage ?| ?Without Kidney Damage+ --------+ --------+ +| ?>90 ?| ?Stage one ?| ? Normal ?+ ---+ ---+ -------+| ?60-89 ?| ?Stage two ?| ? Decreased GFR ? + --+ --+ ------+| ?30-59 ?| ?Stage three ?| ? Stage three ? + --+ --+ ------+| ?15-29 ?| ?Stage four ? | ? Stage four ?+ ---+ ---+ -------+| ?<15 (or dialysis) ? ?| ?Stage five ? | ? Stage five ?+ ---+ ---+ -------+ *Each stage assumes the associated GFR level has been in effect for at least three months. ?Stages 1 to 5, with or without kidney disease, indicate chronic kidney disease. Notes: Determination of stages one and two (with eGFR >59mL/min/1.73 m2) requires estimation of kidney damage for at least three months as defined by structural or functional abnormalities of the kidney, manifested by either:Pathological abnormalities or Markers of kidney damage (including abnormalities in the composition of the blood or urine or abnormalities in imaging tests). Lab Interpretation Abnormal (test code = 07043-2) [facility] GLUCOSE (AUTOMATED)2022-04-22 04:35:23 Test Item Value Reference Range Interpretation Comments POCT GLU (test code = 7658638515) 154 mg/dL 70-110 H Lab Interpretation (test code = Abnormal 18296-6) [facility] GLUCOSE (AUTOMATED)2022-04-22 03:44:33 Test Item Value Reference Range Interpretation Comments POCT GLU (test code = 1424475469) 166 mg/dL 70-110 H Lab Interpretation (test code = Abnormal 88931-1) [facility] Whole [id number] 03:11:51 Test Item Value Reference Range Interpretation Comments LACTIC ACID (test code = 2.04 mmol/L 0.50-2.20 7698223260) Lab Interpretation (test code = Normal 26414-5) [facility] (Na, K, Cl, CO2, Glucose, BUN, Creatinine, Ca)2022-04-22 02:17:22 Test Item Value Reference Range Interpretation Comments NA (test code = 134 mmol/L 135-145 L 3044501816) K (test code = 4.3 mmol/L 3.5-5.0 8786597796) CL (test code = 101 mmol/L 98-108 5237185402) CO2 TOTAL (test code = 10 mmol/L 23-31 L 5567848817) AGAP (test code = 2-16 H 7675333058) BUN (test code = 8 mg/dL 7-23 8256050330) GLUCOSE (test code = 128 mg/dL 70-110 H 0083454303) CREATININE (test code = 0.92 mg/dL 0.60-1.25 5336356324) CALCIUM (test code = 9.2 mg/dL 8.6-10.6 7123150300) eGFR (test code = mL/min/1.73m2 2279114504) ZULEIMA (test code = ZULEIMA) Association of Glomerular Filtration Rate (GFR) and Staging of Kidney Disease* + --+ --+ ------+| GFR (mL/min/1.73 m2) ?| With Kidney Damage ?| ?Without Kidney Damage+ --------+ --------+ +| ?>90 ?| ?Stage one ?| ? Normal ?+ ---+ ---+ -------+| ?60-89 ?| ?Stage two ?| ? Decreased GFR ? + --+ --+ ------+| ?30-59 ?| ?Stage three ?| ? Stage three ? + --+ --+ ------+| ?15-29 ?| ?Stage four ? | ? Stage four ?+ ---+ ---+ -------+| ?<15 (or dialysis) ? ?| ?Stage five ? | ? Stage five ?+ ---+ ---+ -------+ *Each stage assumes the associated GFR level has been in effect for at least three months. ?Stages 1 to 5, with or without kidney disease, indicate chronic kidney disease. Notes: Determination of stages one and two (with eGFR >59mL/min/1.73 m2) requires estimation of kidney damage for at least three months as defined by structural or functional abnormalities of the kidney, manifested by either:Pathological abnormalities or Markers of kidney damage (including abnormalities in the composition of the blood or urine or abnormalities in imaging tests). Lab Interpretation Abnormal (test code = 43443-9) [facility] GLUCOSE (AUTOMATED)2022-04-22 02:16:37 Test Item Value Reference Range Interpretation Comments POCT GLU (test code = 4937671046) 132 mg/dL 70-110 H Lab Interpretation (test code = Abnormal 30754-0) [facility] GLUCOSE (AUTOMATED)2022-04-22 01:19:28 Test Item Value Reference Range Interpretation Comments POCT GLU (test code = 142 mg/dL 70-110 H Notifi ed Provider [id number]) Lab Interpretation (test Abnormal code = 35203-7) [facility] Center[facility]cosylated Hemoglobin (A1C)2022-04-22 01:01:17 Test Item Value Reference Range Interpretation Comments HGB A1C (test code = 10.5 % 4.0-5.7 H 4548-4) ZULEIMA (test code = ZULEIMA) Reference RangesNormal: <5.7%Prediabetes: 5.7 - 6.4%Diabetes: > 6.5% Lab Interpretation (test Abnormal code = 95919-1) [facility] CenterMagnesium [id number] 00:42:52 Test Item Value Reference Range Interpretation Comments MAGNESIUM (test code = 8114166650) 1.9 mg/dL 1.7-2.4 Lab Interpretation (test code = Normal 36736-8) [facility] CenterPhosphorus [id number] 00:42:32 Test Item Value Reference Range Interpretation Comments PHOSPHORUS (test code = 2747967939) 5.1 mg/dL 2.5-5.0 H Lab Interpretation (test code = Abnormal 82645-0) [facility] CenterAC PANEL 21 + LACTIC [id number] 00:14:12 Test Item Value Reference Range Interpretation Comments PH (test code = 7.32-7.42 L 7551887817) PCO2 SAKINA (test code = See_Comment L [Auto mated 4243340802) message] The sy stem which generated this result transmitted reference range : 41 - 51 mmHg. The reference range was not used to interpret this result as normal/abnormal . PO2 SAKINA (test code = See_Comment H [Autom ated 1546920485) message] The sy stem which generated this result transmitted reference range : 25 - 40 mmHg. The reference range was not used to interpret this result as normal/abnormal . HCO3 SAKINA (test code = See_Comment L [Auto mated 5740050879) message] The sy stem which generated this result transmitted reference range : 24 - 28 mEq/L. The reference range was not used to interpret this result as normal/abnormal . AC VBE(BEAKER) (test mEq/L code = 8181667388) THB SAKINA (test code = 16.5 g/dL 13.5-18.0 0775377972) %O2HB SAKINA (test code = 84.9 % 52.0-63.0 H 1797309121) %COHB SAKINA (test code = 0.3 % 0.0-1.5 4794807848) %METHB SAKINA (test code = 0.1 % 0.4-1.5 L 1648329356) VOL%O2 SAKINA (test code = 19.6 % 6.0-12.0 H 1647389180) NA (test code = 134 mmol/L 135-145 L 2874632802) K+ (test code = 3.7 mmol/L 3.5-5.0 7035386051) AC CA IONZ (test code = 5.30 mg/dL 4.50-5.30 4279407420) GLUCOSE (test code = 155 mg/dL 70-110 H 5133960626) LACTIC ACID (test code 2.34 mmol/L 0.50-2.20 H = 6346966328) Lab Interpretation Abnormal (test code = 24200-6) [facility] CenterTROPONIN [id number] 23:48:43 Test Item Value Reference Interpretation Comments Range TROPONIN I (test 0.002 ng/mL See_Comment [Automated code = 4759635920) message] The system which generated this result transmitted reference range : <=0.034. The reference range was not used to interpret this result as normal/abnormal . ZULEIMA (test code = Reference (Normal) ZULEIMA) Range (defined by the 99th percentile reference limit): <= 0.034 ng/mL Note: Cardiac troponin begins to rise 3-4 hours after the onset of ischemia. Repeat in 4-6 hours if the sample was drawn within 3-4 hours of the onset of the symptom and found normal. Diagnosis of myocardial injury is made with acute changes in cTn concentrations with at least one serial sample above the 99th percentile upper reference limit (URL), taken together with the patient's clinical presentation. Biotin has been reported to cause a negative bias, interpret results relative to patient's use of biotin. Lab Interpretation Normal (test code = 81450-4) [facility] CenterN-TERMINAL [id number] 23:45:26 Test Item Value Reference Range Interpretation Comments NT-proBNP (test code 38 pg/mL See_Comment [Autom ated = 8350713071) message] The system which generated this result transmitted reference range : <=125. The reference range was not used to interpret this result as normal/abnormal . ZULEIMA (test code = ZULEIMA) Biotin has been reported to cause a negative bias, interpret results relative to patient's use of biotin. Lab Interpretation Normal (test code = 84172-5) [facility]. METABOLIC PANEL (59071)2022-04-21 23:45:16 Test Item Value Reference Range Interpretation Comments NA (test code = 134 mmol/L 135-145 L 1238778936) K (test code = 4.3 mmol/L 3.5-5.0 1514861838) CL (test code = 100 mmol/L 98-108 8204267417) CO2 TOTAL (test code = 8 mmol/L 23-31 L 8758563710) AGAP (test code = 2-16 H 3552753960) BUN (test code = 8 mg/dL 7-23 2284678035) GLUCOSE (test code = 169 mg/dL 70-110 H 2362668209) CREATININE (test code = 0.93 mg/dL 0.60-1.25 1628757176) TOTAL BILI (test code = 1.1 mg/dL 0.1-1.6 6590275987) CALCIUM (test code = 9.8 mg/dL 8.6-10.6 4587980011) T PROTEIN (test code = 8.2 g/dL 6.3-8.2 3341028773) ALBUMIN (test code = 5.0 g/dL 3.5-5.0 3912229129) ALK PHOS (test code = 106 U/L 34-122 6514223835) ALTv (test code = 64 U/L 5-50 H 1742-6) AST(SGOT) (test code = 47 U/L 13-40 H 0689302351) eGFR (test code = mL/min/1.73m2 7555523666) ZULEIMA (test code = ZULEIMA) Association of Glomerular Filtration Rate (GFR) and Staging of Kidney Disease* + --+ --+ ------+| GFR (mL/min/1.73 m2) ?| With Kidney Damage ?| ?Without Kidney Damage+ --------+ --------+ +| ?>90 ?| ?Stage one ?| ? Normal ?+ ---+ ---+ -------+| ?60-89 ?| ?Stage two ?| ? Decreased GFR ? + --+ --+ ------+| ?30-59 ?| ?Stage three ?| ? Stage three ? + --+ --+ ------+| ?15-29 ?| ?Stage four ? | ? Stage four ?+ ---+ ---+ -------+| ?<15 (or dialysis) ? ?| ?Stage five ? | ? Stage five ?+ ---+ ---+ -------+ *Each stage assumes the associated GFR level has been in effect for at least three months. ?Stages 1 to 5, with or without kidney disease, indicate chronic kidney disease. Notes: Determination of stages one and two (with eGFR >59mL/min/1.73 m2) requires estimation of kidney damage for at least three months as defined by structural or functional abnormalities of the kidney, manifested by either:Pathological abnormalities or Markers of kidney damage (including abnormalities in the composition of the blood or urine or abnormalities in imaging tests). Lab Interpretation Abnormal (test code = 54890-4) [facility] CenterLIPASE2022-05-23 23:37:42 Test Item Value Reference Range Interpretation Comments LIPASE (test code = 7249926765) 106 U/L 0-220 Lab Interpretation (test code = Normal 10796-8) [facility] CenterPROTHROMBIN TIME / [id number] 23:30:44 Test Item Value Reference Range Interpretation Comments PROTIME PATIENT (test See_Comment [Auto mated message] code = 5964-2) The system [employer] generated this result transmitted ref erence range: 12.0 - 1 4.7 Seconds. The re ference range was not u sed to interpret this result as normal/abnor mal. INR (test code = 6301-6) Nor mal INR <1.1; Warfarin Therap eutic range 2.0 to 3. 0 or 2.5 to 3.5, dep ending upon the indica tions. Lab Interpretation (test Normal code = 82951-6) [facility] WITH [id number] 23:22:44 Test Item Value Reference Range Interpretation Comments WBC (test code = See_Comment H [Automated 6690-2) message] The sy stem which generated this result transmitted reference range : 4.20 - 10.70 10*3/?L. The reference range was not used to interpret this result as normal/abnormal . RBC (test code = See_Comment H [Automated 789-8) message] The sy stem which generated this result transmitted reference range : 4.26 - 5.52 10*6/?L. The reference range was not used to interpret this result as normal/abnormal . HGB (test code = 16.8 g/dL 12.2-16.4 H 718-7) HCT (test code = 50.3 % 38.4-49.3 H 4544-3) MCV (test code = 85.5 fL 81.7-95.6 787-2) MCH (test code = 28.6 pg 26.1-32.7 785-6) MCHC (test code = 33.4 g/dL 31.2-35.0 786-4) RDW-SD (test code = 38.3 fL 38.5-51.6 L 84342-9) RDW-CV (test code = 12.3 % 12.1-15.4 788-0) PLT (test code = See_Comment H [Automated 777-3) message] The sy stem which generated this result transmitted reference range : 150 - 328 10*3/ ?L. The reference r oleg was not used to interpret this result as normal/abnormal . MPV (test code = 9.2 fL 9.8-13.0 L 53271-2) NRBC/100 WBC (test See_Comment [Automat ed code = 2725822059) message] The system which generated this result transmitted reference range : 0.0 - 10.0 /100 WBCs. The refer ence range was not u sed to interpret th is result as normal/abnormal . NRBC x10^3 (test code <0.01 See_Comment [Auto mated = 5981063547) message] The s ystem which generated this result transmitted reference range : 10*3/?L. The reference range was not used to interpret this result as normal/abnormal . GRAN MAT (NEUT) % 62.0 % (test code = 770-8) IMM GRAN % (test code 0.30 % = 9099927192) LYMPH % (test code = 29.7 % 736-9) MONO % (test code = 6.5 % 5905-5) EOS % (test code = 0.9 % 713-8) BASO % (test code = 0.6 % 706-2) GRAN MAT x10^3(ANC) 7.25 10*3/uL 1.99-6.95 H (test code = 3810061777) IMM GRAN x10^3 (test 0.04 10*3/uL 0.00-0.06 code = 4461972974) LYMPH x10^3 (test code 3.48 10*3/uL 1.09-3.23 H = 731-0) MONO x10^3 (test code 0.76 10*3/uL 0.36-1.02 = 742-7) EOS x10^3 (test code = 0.11 10*3/uL 0.06-0.53 711-2) BASO x10^3 (test code 0.07 10*3/uL 0.01-0.09 = 704-7) Lab Interpretation Abnormal (test code = 83194-2) [facility] CenterAL[facility]/CRE[facility] RATIO, URINE, RANDOM 2022-03-11 01:57:25 Test Item Value Reference Range Interpretation Comments CREATININE, URINE, 61.2 MG/DL NOT ESTAB RANDOM (test code = 2072) ALBUMIN, URINE, <0.2 MG/DL NOT ESTAB RANDOM (test code = 58725) CALC ALBUMIN/CREAT, <3 MG/G <30 Note: RND (test code = Albumin/Cre atinine 58426) ratio reference interval reflec ts ADA and NKF guideli amisha. COMPREHENSIVE METABOLIC [id number] 00:29:28 Test Item Value Reference Range Interpretation Comments GLUCOSE (test code = 413 MG/DL 70-99 H 2216) BUN (test code = 14 MG/DL 05-19) CREATININE (test 0.81 MG/DL 0.80-1.40 code = 2214) eGFR (2020 CKD-EPI) 107 >60 (test code = 47360) ML/MIN/1.73 CALC BUN/CREAT (test 17 RATIO 05-27 code = 2235) SODIUM (test code = 138 MEQ/L 016-767 7386) POTASSIUM (test code 4.2 MEQ/L 3.5-5.4 = 2227) CHLORIDE (test code 96 MEQ/L 95-107 = 2214) CARBON DIOXIDE (test 24 MEQ/L 19-31 code = 220) CALCIUM (test code = 9.8 MG/DL 8.5-10.5 2208) PROTEIN, TOTAL (test 7.1 G/DL 6.1-8.3 code = 2228) ALBUMIN (test code = 4.2 G/DL 3.5-5.2 [...] = 54 U/L 5-50 H 2218) LIPID [id number] 00:29:28 Test Item Value Reference Range Interpretation [...] MOREINFORMATION , SEE CLIENT ANNOUNCE MENT AT [email or web address] LDL/HDL 2.33 RATIO <3.55 (test code = 2238) HEMOGLOBIN [id number] 03:12:57 Test Item Value Reference Range Interpretation Comments HEMOGLOBIN A1c (test 11.3 % 4.2-5.6 H AMERIC AN DIABETES code = 20907) ASSOCIATION IDELINES FOR HGB A1C: PREDIABETES/INC REASED RISK . . . . . . . 5 .7-6.4% DIAGNOSIS OF DI ABETES . . . . . . . . . >=6 .5% WITH CONFIRMATION OR APPROPRIATE SYMPTOMS NOTE: ASSAY MAY BE AFFECTED BY HEMOGLOBINOPATH IES (SICKLE CELL ANEMIA, S- C DISEASE, OTHERS) OR CRISTINA FICIALLY LOWERED BY DECR EASED RED CELL SURVIVAL ( HEMOLYTIC ANEMIAS, BLOOD LOSS, ETC.). CONSIDER ALTERN ATE TESTING OR LABORATORY C ONSULTATION. UNLESS OTHERWIS E INDICATED, ALL TESTING PER FORMED [employer], [facility]. [address] [place] [address] LABORATORY DIRE CTOR: Anna MCKAY. CLIA NUMBER [id number] CAP ACCREDITATION N O. [id number] COMPREHENSIVE METABOLIC [id number] 04:51:05 Test Item Value Reference Range Interpretation Comments GLUCOSE (test code = 299 MG/DL 70-99 H 2216) BUN (test code = 15 MG/DL 6-20 2207) CREATININE (test 0.67 MG/DL 0.80-1.40 L code = 2214) eGFR (2020 CKD-EPI) 114 >60 (test code = 49739) ML/MIN/1.73 CALC BUN/CREAT (test 22 RATIO 6-28 code = 2235) SODIUM (test code = 143 MEQ/L 893-319 8523) POTASSIUM (test code 4.1 MEQ/L 3.5-5.4 = 2227) CHLORIDE (test code 105 MEQ/L 95-107 = 2215) CARBON DIOXIDE (test 26 MEQ/L 19-31 code = 2206) CALCIUM (test code = 9.3 MG/DL 8.5-10.5 2208) PROTEIN, TOTAL (test 6.5 G/DL 6.1-8.3 code = 2229) ALBUMIN (test code = 4.0 G/DL 3.5-5.2 2200) CALC GLOBULIN (test 2.5 G/DL 1.9-3.7 code = 2240) CALC A/G RATIO (test 1.6 RATIO 1.0-2.6 code = 2234) BILIRUBIN, TOTAL 0.5 MG/DL See_Comment [Automated message] (test code = 2207) The syste m which generated this result transmit brad reference range : <=1.2. The refe rence range was not u sed to interpret th is result as normal/abnormal . ALKALINE PHOSPHATASE 111 U/L 40-118 (test code = 2203) AST (test code = 33 U/L 9-50 2217) ALT (test code = 76 U/L 5-50 H 2218) LIPID [id number] 04:51:05 Test Item Value Reference Range Interpretation [...] MOREINFORMATION , SEE CLIENT ANNOUNCE MENT AT [email or web address] LDL/HDL 1.47 RATIO <3.55 UNLESS O THERWISE (test code = 2238) INDICATED , ALL TESTING PERFORMED [facility], [id number] [place] [address] DIRECTOR: Jacky MCKAYIA NUMBER [id number] CAP ACCREDITATION N O. [id number] HEMOGLOBIN [id number] 02:53:45 Test Item Value Reference Range Interpretation Comments HEMOGLOBIN A1c (test 10.6 % 4.2-5.6 H AMERIC AN DIABETES code = 12359) ASSOCIATION IDELINES FOR HGB A1C: PREDIABETES/INC REASED RISK . . . . . . . 5 .7-6.4% DIAGNOSIS OF DI ABETES . . . . . . . . . >=6 .5% WITH CONFIRMATION OR APPROPRIATE SYMPTOMS NOTE: ASSAY MAY BE AFFECTED BY HEMOGLOBINOPATH IES (SICKLE CELL ANEMIA, S- C DISEASE, OTHERS) OR CRISTINA FICIALLY LOWERED BY DECR EASED RED CELL SURVIVAL ( HEMOLYTIC ANEMIAS, BLOOD LOSS, ETC.). CONSIDER ALTERN ATE TESTING OR LABORATORY C ONSULTATION."
[2022-11-04] MEDS ORDERED: FAMOTIDINE 20 MG/2 ML VIAL IV ONE (17:40)
[2022-11-04] MEDS ORDERED: NA CHLORIDE 0.9% 1,000 ML ONE ×2 (17:40→18:48)
[2022-11-04 18:15] LABS: Absolute Lymphocytes (CBC) 3.6 K/uL (0.7-4.9); Hematocrit 49.9 % (39.6-49.0); Lymphocytes % 34.4 % (15.3-44.8); MCV 89.7 fL (80-100); MPV 6.8 fL (7.6-11.3); RBC Red Blood Cell Count 5.57 M/uL (4.33-5.43)
[2022-11-04 18:34] LABS: Albumin 3.5 g/dL (3.4-5.0); Bilirubin Total 1.1 mg/dL (0.2-1.0); Potassium 4.3 mmol/L (3.5-5.1)
[2022-11-04] MEDS ORDERED: MORPHINE 4 MG/ML SYR ONE (19:16)
[2022-11-04] MEDS ORDERED: PROMETHAZINE INJ 25 MG/ML AMP ONE (19:16)
--- NOTE | 2022-11-04 19:55 | RAD REPORT ---
EXAM DESCRIPTION: Saroj Single View11/04/2022 7:41 pm CLINICAL HISTORY: Shortness of breath COMPARISON: February 2022 FINDINGS: The lungs appear clear of acute infiltrate. The heart is normal size IMPRESSION: No acute abnormalities displayed
--- NOTE | 2022-11-04 20:16 | RAD REPORT ---
EXAM DESCRIPTION: US - Abdomen Exam Limited - 11/04/2022 8:03 pm CLINICAL HISTORY: Abdominal pain. COMPARISON: February 2022 FINDINGS: The examination is somewhat limited secondary to body habitus. The gallbladder wall is not thickened. A gallstone is not seen. The biliary tree is normal caliber. Mild gallbladder distention IMPRESSION: Mild gallbladder distention
[2022-11-04 21:09] LABS: Potassium 4.1 mmol/L (3.5-5.1)
[2022-11-04] MEDS ORDERED: NA CHLORIDE 0.9% 500 ML ONE (21:32)
[2022-11-04] MEDS ORDERED: Ringers Lactate 1,000 ML IV ONE (21:32)
--- NOTE | 2022-11-04 22:58 | EDPHYS ---
Physician Documentation [facility] Name: Leandro Rand Age: 51 yrs Sex: Male : 1970 Arrival Date: 11/04/2022 Time: 17:18 Bed 11 Private MD: ED Physician Dustin Saleh HPI: 11/04 17:52 This 51 yrs old Male presents to ER via Ambulatory with complaints of snw Vomiting, Body Aches. 17:52 The patient presents to the emergency department with nausea, vomiting. Onset: The snw symptoms/episode began/occurred suddenly, 3 day(s) ago, and became persistent. Possible causes: +influenza. Associated signs and symptoms: Pertinent positives: nausea, vomiting, bodyaches. Severity of symptoms: At their worst the symptoms were moderate severe in the emergency department the symptoms are unchanged. It is unknown whether or not the patient has had similar symptoms in the past. when dx with influenza. 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 - Social history:: Smoking status: Patient denies any tobacco usage or history of. ROS: 20:28 Eyes: Negative for injury, pain, redness, and discharge, ENT: Negative for injury, snw pain, and discharge, Neck: Negative for injury, pain, and swelling, Cardiovascular: Negative for chest pain, palpitations, and edema, Respiratory: Negative for shortness of breath, cough, wheezing, and pleuritic chest pain. 20:28 Back: Negative for injury and pain, : Negative for injury, bleeding, discharge, and swelling, MS/Extremity: Negative for injury and deformity, Skin: Negative for injury, rash, and discoloration. 20:28 Constitutional: Positive for body aches, malaise, poor PO intake. 20:28 Abdomen/GI: Positive for abdominal pain, nausea and vomiting. 20:28 Neuro: Positive for weakness. Exam: 20:29 Head/Face: Normocephalic, atraumatic. Eyes: Pupils equal round and reactive to light, snw extra-ocular motions intact. Lids and lashes normal. Conjunctiva and sclera are non-icteric and not injected. Cornea within normal limits. Periorbital areas with no swelling, redness, or edema. ENT: Nares patent. No nasal discharge, no septal abnormalities noted. Tympanic membranes are normal and external auditory canals are clear. Oropharynx with no redness, swelling, or masses, exudates, or evidence of obstruction, uvula midline. Mucous membranes moist. Neck: Trachea midline, no thyromegaly or masses palpated, and no cervical lymphadenopathy. Supple, full range of motion without nuchal rigidity, or vertebral point tenderness. No Meningismus. Chest/axilla: Normal chest wall appearance and motion. Nontender with no deformity. No lesions are appreciated. 20:29 Constitutional: The patient appears alert, listless, uncomfortable. 20:29 Cardiovascular: Rate: tachycardic, Rhythm: regular. Vital Signs: 17:28 BP 113 / 63; Pulse 132; Resp 22; Temp 98.6; Pulse Ox 88% on R/A; Weight 122.47 kg; ss Height 5 ft. 7 in. (170.18 cm); Pain 8/10; 18:53 BP 113 / 69; Pulse 115; Resp 20; Pulse Ox 100% on 3 lpm NC; em6 20:41 BP 116 / 74; Pulse 110; Resp 20; Pulse Ox 96% on 3 lpm NC; em6 21:45 BP 122 / 76; Pulse 102; Resp 20; Pulse Ox 98% on 3 lpm NC; em6 22:45 BP 139 / 52; Pulse 97; Resp 20; Pulse Ox 98% on 3 lpm NC; em6 17:28 Body Mass Index 42.29 (122.47 kg, 170.18 cm) MDM: 17:35 Patient medically screened. snw 20:32 Data reviewed: vital signs, nurses notes. Data interpreted: Pulse oximetry: on room air snw is 100 %. Interpretation: normal. Counseling: I had a detailed discussion with the patient and/or guardian regarding: the historical points, exam findings, and any diagnostic results supporting the discharge/admit diagnosis, lab results, radiology results. Response to treatment: pt states he is feeling better, abdominal pain resolved. 2L NS infused. Will recheck chem 7.. ED course: Pt stopped tamiflu with one pill left as he was feeling so ill. . 20:33 Counseling: I had a detailed discussion with the patient and/or guardian regarding: snw discussed findings of distended GB without evidence of infection with pt and Spouse.. 22:55 ED course: VSS. Patient feeling better. Will discharge to home for continued monitoring.cp 11/04 17:35 Order name: CBC with Diff; Complete Time: 18:30 snw 11/04 17:35 Order name: CMP; Complete Time: 18:39 snw 11/04 17:35 Order name: Lipase; Complete Time: 18:39 snw 11/04 18:40 Order name: Chest Single View XRAY; Complete Time: 20:02 snw 11/04 19:10 Order name: US Abdomen Limited; Complete Time: 20:22 snw 11/04 20:28 Order name: Chem 7; Complete Time: 21:18 snw 11/04 18:13 Order name: EKG; Complete Time: 18:14 snw 11/04 17:35 Order name: IV Saline Lock; Complete Time: 18:05 snw 11/04 17:35 Order name: Labs collected and sent; Complete Time: 18:05 snw 11/04 18:13 Order name: EKG - Nurse/Tech; Complete Time: 18:32 snw 11/04 18:40 Order name: Oxygen Per Protocol; Complete Time: 18:41 snw 11/04 21:30 Order name: PO challenge; Complete Time: 21:55 snw EC:22 Rate is 120 beats/min. Rhythm is regular. No ST changes noted. Clinical impression: NSR snw w/ Non-specific ST/T Changes and Sinus tachycardia. Administered Medications: 18:04 Drug: NS 0.9% 1000 ml Route: IV; Rate: 1 bolus; Site: left wrist; em6 18:04 Drug: Pepcid (famotidine) 20 mg Route: IVP; Site: left wrist; em6 18:28 Follow up: Response: No adverse reaction em6 19:04 Drug: NS 0.9% 1000 ml Route: IV; Rate: 1 bolus; Site: left wrist; jh5 19:22 Drug: Phenergan (promethazine) 25 mg Route: IM; Site: right deltoid; em6 19:49 Follow up: Response: No adverse reaction em6 19:23 Drug: morphine 4 mg Route: IVP; Infused Over: 4 mins; Site: left wrist; em6 19:49 Follow up: Response: No adverse reaction; RASS: Alert and Calm (0) em6 21:36 Drug: Lactated Ringers Solution 500 ml Route: IV; Rate: 150 bolus; Site: left wrist; em6 22:11 Follow up: Response: No adverse reaction; IV Status: Completed infusion; IV Intake: em6 500ml 22:11 Drug: NS 0.9% 500 ml Route: IV; Rate: bolus; Site: left wrist; em6 22:53 Follow up: Response: No adverse reaction; IV Status: Completed infusion; IV Intake: em6 500ml Disposition Summary: 11/04/22 22:58 Discharge Ordered Location: Home cp Condition: Stable cp Diagnosis - Dehydration cp - Influenza due to other identified influenza virus with gastrointestinal cp manifestations Followup: snw - With: Emergency Department - When: As needed - Reason: Worsening of condition Followup: snw - With: Private Physician - When: 2 - 3 days - Reason: Recheck today's complaints, Continuance of care, Re-evaluation by your physician Discharge Instructions: - Discharge Summary Sheet snw - Dehydration, Adult snw - Influenza, Adult snw - Blood Glucose Monitoring, Adult snw - Rehydration, Adult snw Forms: - Work release form snw - Medication Reconciliation Form cp - Thank You Letter cp - Antibiotic Education cp - Prescription Opioid Use cp Prescriptions: - promethazine 25 mg Oral Tablet - take 1 tablet by ORAL route every 6 hours As needed; 20 tablet; Refills: 0, snw Product Selection Permitted Signatures: Dispatcher [employer] EDMI Caprice Steen, SANTIAGO-C PATENTS EXAMINER-Csnw Joanna Hsieh RN RN ss Page, Corey, PA PA cp Julianne Ventura, RN RN jh5 Maria Bazzi RN RN em6 Corrections: (The following items were deleted from the chart) 11/05 21:53 12 22:37 ED course: VSS. Patient feeling better. Will discharge to home for cp continued monitoring. cp
--- NOTE | 2022-11-04 22:58 | ER ---
Nurse's Notes [facility] Name: Leandro Rand Age: 51 yrs Sex: Male : 1970 Arrival Date: 11/04/2022 Time: 17:18 Bed 11 Private MD: Diagnosis: Dehydration;Influenza due to other identified influenza virus with gastrointestinal manifestations Presentation: 11/04 17:28 Chief complaint: Patient states: flu positive Thursday; Thursday started feel worse with ss nausea/vomiting and more body aches. Now feeling shaky. Coronavirus screen: Vaccine status: Patient reports receiving the 2nd dose of the covid vaccine. Client denies travel out of the [place] in the last 14 days. Ebola Screen: Patient negative for fever greater than or equal to 101.5 degrees Fahrenheit, and additional compatible Ebola Virus Disease symptoms Patient denies exposure to infectious person. Patient denies travel to an Ebola-affected area in the 21 days before illness onset. Initial Sepsis Screen: Does the patient meet any 2 criteria? No. Patient's initial sepsis screen is negative. Does the patient have a suspected source of infection? No. Patient's initial sepsis screen is negative. Risk Assessment: Do you want to hurt yourself or someone else? Patient reports no desire to harm self or others. 17:28 Method Of Arrival: Ambulatory ss 17:28 Acuity: FELI 3 ss 18:06 Onset of symptoms was November 01, 2022. em6 Triage Assessment: 17:32 General: Appears uncomfortable, obese, Behavior is calm, cooperative, appropriate for ss age. Pain: Complains of pain in abdomen. GI: Reports nausea, vomiting. 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 - Social history:: Smoking status: Patient denies any tobacco usage or history of. Screenin:30 Abuse screen: Denies threats or abuse. Nutritional screening: No deficits noted. em6 Tuberculosis screening: No symptoms or risk factors identified. Fall Risk Total Marina Fall Scale indicates No Risk (0-24 pts). Assessment: 17:40 General: Appears in no apparent distress. Behavior is cooperative. Pain: Complains of em6 pain in abdomen Pain does not radiate. Pain currently is 8 out of 10 on a pain scale. Neuro: Level of Consciousness is awake, alert, obeys commands, Oriented to person, place, time, situation. Cardiovascular: Patient's skin is warm and dry. Respiratory: Airway is patent Respiratory effort is even, unlabored, Respiratory pattern is regular, symmetrical. GI: Abdomen is distended, Bowel sounds present X 4 quads. Abdomen is tender to palpation X 4 quads. : No signs and/or symptoms were reported regarding the genitourinary system. EENT: No signs and/or symptoms were reported regarding the EENT system. Derm: No signs and/or symptoms reported regarding the dermatologic system. Musculoskeletal: Circulation, motion, and sensation intact. Range of motion: intact in all extremities. 18:40 Reassessment: Patient appears in no apparent distress at this time. No changes from em6 previously documented assessment. Patient and/or family updated on plan of care and expected duration. Pain level reassessed. Patient is alert, oriented x 3, equal unlabored respirations, skin warm/dry/pink. 19:40 Reassessment: Patient appears in no apparent distress at this time. No changes from em6 previously documented assessment. Patient and/or family updated on plan of care and expected duration. Pain level reassessed. Patient is alert, oriented x 3, equal unlabored respirations, skin warm/dry/pink. 20:40 Reassessment: Patient appears in no apparent distress at this time. No changes from em6 previously documented assessment. Patient and/or family updated on plan of care and expected duration. Pain level reassessed. Patient is alert, oriented x 3, equal unlabored respirations, skin warm/dry/pink. 21:40 Reassessment: Patient appears in no apparent distress at this time. No changes from em6 previously documented assessment. Patient and/or family updated on plan of care and expected duration. Pain level reassessed. Patient is alert, oriented x 3, equal unlabored respirations, skin warm/dry/pink. 21:55 Reassessment: patient states no nausea or vomiting after eating food and fluids. em6 provider notified no new order. 22:45 Reassessment: Patient appears in no apparent distress at this time. No changes from em6 previously documented assessment. Patient and/or family updated on plan of care and expected duration. Pain level reassessed. Patient is alert, oriented x 3, equal unlabored respirations, skin warm/dry/pink. Vital Signs: 17:28 BP 113 / 63; Pulse 132; Resp 22; Temp 98.6; Pulse Ox 88% on R/A; Weight 122.47 kg; ss Height 5 ft. 7 in. (170.18 cm); Pain 8/10; 18:53 BP 113 / 69; Pulse 115; Resp 20; Pulse Ox 100% on 3 lpm NC; em6 20:41 BP 116 / 74; Pulse 110; Resp 20; Pulse Ox 96% on 3 lpm NC; em6 21:45 BP 122 / 76; Pulse 102; Resp 20; Pulse Ox 98% on 3 lpm NC; em6 22:45 BP 139 / 52; Pulse 97; Resp 20; Pulse Ox 98% on 3 lpm NC; em6 17:28 Body Mass Index 42.29 (122.47 kg, 170.18 cm) ED Course: 17:18 Patient arrived in ED. rg4 17:32 Triage completed. ss 17:32 Arm band placed on right wrist. ss 17:35 Caprice Steen FNP-C is PHCP. snw 17:35 Dustin Saleh MD is Attending Physician. snw 17:45 Bed in low position. Call light in reach. Side rails up X 1. Pulse ox on. NIBP on. Warm em6 blanket given. 18:00 Inserted saline lock: 22 gauge in left wrist, using aseptic technique. em6 18:05 Maria Bazzi, RN is Primary Nurse. em6 18:06 CBC with Diff Sent. em6 18:06 CMP Sent. em6 18:07 Lipase Sent. em6 18:23 EKG done, by ED staff. tm3 19:43 Chest Single View XRAY In Process Unspecified. EDMS 20:05 US Abdomen Limited In Process Unspecified. EDMS 20:50 Chem 7 Sent. em6 21:43 PHCP role handed off by Caprice Steen FNP-C cp 21:43 Cholo Johnson PA is PHCP. cp 23:10 No provider procedures requiring assistance completed. IV discontinued, intact, em6 bleeding controlled, No redness/swelling at site. Pressure dressing applied. Administered Medications: 18:04 Drug: NS 0.9% 1000 ml Route: IV; Rate: 1 bolus; Site: left wrist; em6 18:04 Drug: Pepcid (famotidine) 20 mg Route: IVP; Site: left wrist; em6 18:28 Follow up: Response: No adverse reaction em6 19:04 Drug: NS 0.9% 1000 ml Route: IV; Rate: 1 bolus; Site: left wrist; jh5 19:22 Drug: Phenergan (promethazine) 25 mg Route: IM; Site: right deltoid; em6 19:49 Follow up: Response: No adverse reaction em6 19:23 Drug: morphine 4 mg Route: IVP; Infused Over: 4 mins; Site: left wrist; em6 19:49 Follow up: Response: No adverse reaction; RASS: Alert and Calm (0) em6 21:36 Drug: Lactated Ringers Solution 500 ml Route: IV; Rate: 150 bolus; Site: left wrist; em6 22:11 Follow up: Response: No adverse reaction; IV Status: Completed infusion; IV Intake: em6 500ml 22:11 Drug: NS 0.9% 500 ml Route: IV; Rate: bolus; Site: left wrist; em6 22:53 Follow up: Response: No adverse reaction; IV Status: Completed infusion; IV Intake: em6 500ml Medication: 23:10 VIS not applicable for this client. em6 Intake: 22:11 IV: 500ml; Total: 500ml. em6 22:53 IV: 500ml; Total: 1000ml. em6 Outcome: 22:58 Discharge ordered by MD. cp 23:10 Patient left the ED. em6 23:10 Discharged to home ambulatory, with significant other. em6 23:10 Condition: stable 23:10 Discharge instructions given to patient, significant other, Instructed on discharge instructions, follow up and referral plans. medication usage, Demonstrated understanding of instructions, follow-up care, medications, Prescriptions given X 1. Signatures: Dispatcher [employer] EDMS Misael Connors3 Caprice Steen, BRANCH CONTROLLER-C BRANCH CONTROLLER-Anniew Joanna Hsieh RN RN ss Chloo Johnson PA PA Juana Kuo rg4 Julianne Ventura RN RN 5 Maria Bazzi RN RN em6 Corrections: (The following items were deleted from the chart) 22:53 22:53 Response: No adverse reaction em6 em6
[2022-11-05 07:40] VITALS: O2SAT 98
[2022-11-05 07:41] VITALS: BP 139/52
[2022-11-05 07:49] VITALS: TEMP 98
--- NOTE | 2022-11-06 05:47 | EKG ---
Test Date: 2022-11-04 Test Time: 18:22:29 Market Development Manager: RIKY MEASUREMENT RESULTS: Intervals: Rate: 120 DE: 130 QRSD: 68 QT: 338 QTc: 477 [place]: P: 51 DE: 130 QRS: 96 T: 53 INTERPRETIVE STATEMENTS: Sinus tachycardia Rightward axis Cannot rule out Anterior infarct, age undetermined Abnormal ECG Compared to ECG 03/10/2022 17:02:35 Right-axis deviation now present Myocardial infarct finding now present Sinus rhythm no longer present Electronically Signed On 11-06-22 05:44:51 THERAPIST RADIATION by Renzo Schmitz
== END 2022-11-04 23:10 | disposition home or self-care (01) ==
LOC: ER 17:14
DX: E86.0 Dehydration (principal); J10.2 Influenza due to other identified influenza virus with gastrointestinal manifestations; Z20.822 Contact with and (suspected) exposure to COVID-19
CPT/HCPCS: 96361; 93005; 85025; 80048; 36415; 83690; 80053; 71045; 76705; 96375; 96372; 96374; 99284; J2550; J7120; J7040; J7030 ×2

== ENCOUNTER 2023-10-25 14:49 | Emergency (ER) | payer OTHER ==
--- OUTSIDE RECORDS SUMMARY | 2023-10-25 14:56 | XMS REPORT | Continuity of Care Document ---
:[address] [facility] t Address [address] [place] [address] Care Team Providers Name Role Phone ANSLEY GARIBAY Primary Care Physician Unavailable WENDY MORENO Attending Clinician Unavailable JOHN SEQUEIRA Attending Clinician Unavailable LYUBOV FERNÁNDEZ Attending Clinician Unavailable MD LUIS ARMANDO Attending Clinician Unavailable ROHINI CHAMBERS Attending Clinician Unavailable MARCELLE ZHU Attending Clinician Unavailable MAISHA RIVERS [facility] Attending Clinician UnavailRADHA Barrow Attending Clinician Unavailable LAB47 Attending Clinician Unavailable AKBAR JEREZ Attending Clinician Unavailable Florence Botello RN Attending Clinician CHOLO LOVE Attending Clinician Unavailable Murali Zafar MD Attending Clinician Dawna Kaur MD Attending Clinician Cholo Love MD Attending Clinician Nata Vu RN Attending Clinician Unavailable JON FRANCISCO Attending Clinician Unavailable Gerson Palomino DO Attending Clinician Jon Francisco MD Attending Clinician Kg Lukasz Anna Attending Clinician Unavailable JAXON SUTTON Attending Clinician Unavailable JAI GONZALEZ Attending Clinician Unavailable Sachin Mcallister DO Attending Clinician Jai Gonzalez MD Attending Clinician Sang [place] Attending Clinician Unavailable SACHIN MCALLISTER Attending Clinician Unavailable Annette Lemus Attending Clinician GERSON RUBIN Attending Clinician Unavailable Billy ARRIETA, Dustin Asher Attending Clinician Gerson Rubin MD Attending Clinician Doctor Unassigned, [place] Attending Clinician Unavailable Marlene Brown Attending Clinician CHOLO LOVE Admitting Clinician Unavailable Kate ARRIETA, Cholo Admitting Clinician GERSON PALOMINO Admitting Clinician Unavailable Sang Rey Admitting Clinician Unavailable SACHIN MCALLISTER Admitting Clinician Unavailable Sachin Mcallister DO Admitting Clinician Physician, No Primary or Family Admitting Clinician Unavaila ble Payers Payer Name Policy Type Policy Number Effective Date Expiration Date Kelsey [facility] 9 [id number] 2023 00:00:00 SILVER: HMO [employer] 94 ON STAND Problems Condition Condition Condition Status Onset Resolution Last Treating Co mments Source Name Details Category Date Date Treatment Clinician Date 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 5-15 Se ybold to to 00:00: - conditions conditions 00 Ex terna classified classified l elsewhere elsewhere Congestive Congestive Disease Active K elsey heart heart 5-10 Seybold failure, failure, 00:00: - unspecifie unspecifie 00 Ex terna d HF d HF l chronicity chronicity , , unspecifie unspecifie d heart d heart failure failure type type Paroxysmal Paroxysmal Disease Active [place] atrial atrial 5-10 Seybold fibrillati fibrillati 00:00: - on on Externa l Chronic Chronic Disease Active Maisha respirator respirator 5-10 Se ybold y failure y failure 00:00: - 00 Externa 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: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 l emia 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 00:00: - diabetic diabetic 00 Acid Concentrator 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 associated with with diabetes diabetes mellitus mellitus due to due to underlying underlying condition condition Type 2 Type 2 Disease Active Maisha diabetes diabetes 5-04 Seybol d mellitus mellitus 00:00: - without without 00 Externa complicati complicati l on, with on, with long-term long-term current current use of use of insulin insulin Vomiting, Vomiting, Disease Active 2021-11 Uni vers unspecifie unspecifie 2-12 it [place] of d [place] d [place] type, type, 00 Medical unspecifie unspecifie Br anch d whether d whether nausea nausea present present Intractabl Intractabl Disease Active 2021-11 U nivers e vomiting e vomiting 2-11 it y of 00:00: [place] 00 Medical Branch Tinea Tinea Disease Active 2021-11 Univers pedis pedis 2-09 ity of 00:00: [place] 00 Medical Branch Chronic Chronic Disease Active 2021-11 Univers respirator respirator 2-09 it y of y failure y failure 00:[place] with with 00 Medical hypoxia hypoxia Branch Type 2 Type 2 Disease Active 2021-11 Univers diabetes diabetes 0-06 ity of mellitus mellitus 00:00: [place] without without 00 Medical complicati complicati Br anch on, on, without without long-term long-term current current use of use of insulin insulin PAF PAF Disease Active 2021-11 Univers (paroxysma (paroxysma 0-06 it y of l atrial l atrial 00:00: [place] fibrillati fibrillati 00 Me dical on) on) Branch HCAPARRO CHAPARRO Disease Active 2021-11 Univers (obstructi (obstructi 0-06 it y of ve sleep ve sleep 00:00: [place] apnea) apnea) 00 Medical Branch Chest Chest Disease Active 2021-11 Univers pain, pain, 0-05 ity of unspecifie unspecifie 00:00: [place] d type d type 00 Medical Branch Morbid Morbid Disease Active 2021-11 Univers obesity obesity 0-05 ity of with body with body 00:00[place] mass index mass index 00 Me dical of of Branch 40.0-49.9 40.0-49.9 Elevated Elevated Disease Active 2021-11 Unive rs LFTs LFTs 0-05 ity of 00:00: [place] 00 Medical Branch Diabetic Diabetic Disease Active Unive rs ketoacidos ketoacidos 5-23 it y of is without is without 00:00: [place] coma coma 00 Medical associated associated Br anch with type with type 2 diabetes 2 diabetes mellitus mellitus Obesity Obesity Disease Active Univers (BMI (BMI 5-23 ity of 30-39.9) 30-39.9) 00:00: [place] 00 Medical Branch No known No known Disease Unive rs active active ity of problems problems [facility] Allergies, Adverse Reactions, Alerts Allergy Allergy Status Severity Reaction(s) Onset Inactive Treating Comm ents Source Name Type Date Date Clinician EMPAGLIF DRUG Active Other-Cmnt 2021-11 Univ ers LOZIN INGREDI 2-08 ity of 00:00: [place] 00 Medical Branch Empaglif Propensi Active Other - See 2021-11 DKA U nivers cookien ty to comments 2-08 ity of adverse 00:00: [place] reaction 00 Medical s to Branch drug Empaglif Propensi Active Other 2021-11 DKA Maisha tainazin ty to 2-08 Seybold adverse 00:00: - reaction 00 Externa s l No Known DA Active U 2021-11 [facility] Allergie 0-24 [place] s 00:00: d 00 Medical Loa NO KNOWN Drug Active Univers ALLERGIE Class ity of S [facility] Social History Social Habit Start Date Stop Date Quantity Comments Source Gender identity Maisha mcdaniel - External Sexual orientation Maisha Moy - External History of tobacco Passive smoker Un iversity of use [facility] Alcohol intake 2023-04-17 2023-04-17 Ex-drinker Maisha zavala - 00:00:00 00:00:00 (finding) External History of Social 2023-04-02 2023-04-02 Maisha Seybold - function 00:00:00 00:00:00 External Tobacco use and 2023-04-02 2023-04-02 Smokeless Maisha Goddard ybold - exposure 00:00:00 00:00:00 tobacco non-user External Exposure to 2022-11-02 2022-11-12 Not sure [facility]-CoV-2 (event) 00:00:00 00:35:00 [facility] Sex [birth year] At [birth year] Maisha Goddard ybold - 00:00:00 00:00:00 External Smoking Status Start Date Stop Date Source Never smoked tobacco Maisha Seyb old - External Ex-smoker 2022-09-03 00:00:00 2022-09-03 00:00:00 [facility] Medications Ordered Filled Start Stop Current Ordering Indication Dosage Frequency Signature Comments Components Source Medication Medication Date Date Medication? Clinician (SIG) Name Name Aspirin 81 Yes 81mg Take 1 Kelse y MG oral 5-19 tablet (81 Seybol d Chewable 08:32: mg total) - Tablet 54 by mouth Externa daily l OZEMPIC Yes [id number] .25mg Inject Maisha (0.25 or 5-19 3 0.25 mg Seybold 0.5 00:00: into the - mg/dose) 2 00 skin once Exte rna mg/3 mL SQ a week If l Solution tolerated Pen-Injecto after 4 r weeks, increase to 0.5mg weekly Metformin Yes [id number] 1000mg Take 1 Maisha HCl 1000 MG 5-19 3 tablet Seybol d oral Tablet 00:00: (1,000 mg - 00 total) by Externa mouth in l the morning and 1 tablet (1,000 mg total) in the evening. Take with meals. Atorvastati Yes [id number] 40mg Take 1 Maisha n Calcium 5-19 3 tablet (40 Seyb old 40 MG oral 00:00: mg total) - Tablet 00 by mouth Externa daily l Insulin Yes [id number] Use as K elsey Aspart 5-19 3 directed Seybold (NovoLOG 00:00: three - FlexPen) 00 times Externa 100 UNIT/ML daily, l subcutaneou inject 24 s Solution units TID Pen-injecto plus r sliding scale. Max daily dose 80 units Insulin Yes [id number] Inject 35 Maisha Detemir 5-19 3 units Seybold (Levemir 00:00: twice - FlexPen) 00 daily Externa 100 UNIT/ML l subcutaneou s Solution Pen-injecto r Insulin Pen Yes [id number] Inject Maisha Needle 31G 5-19 3 insulin 5 Seyb old X 5 MM does 00:00: times - not apply 00 daily Externa Misc l Insulin 2022- No [id number] Inject 35 Maisha Detemir 5-19 05-19 3 units Seybold (Levemir) 00:00: 00:00 twice dominguez - 100 UNIT/ML 00 :00 Externa subcutaneou l s Solution Insulin Pen 2022- No [id number] Inject Maisha Needle 31G 5-19 05-19 3 insulin 5 Sey bold X 5 MM does 00:00: 00:00 times - not apply 00 :00 daily Externa Misc l Budesonide, Yes [id number] .5mg Take 2 mL Maisha Inhalation, 5-16 (0.5 mg Seybo ld 0.5 MG/2ML 00:00: total) by - inhalation 00 nebulizati Ext tammi Suspension on 2 times l daily OZEMPIC 2022- No [id number] .25mg Inject Maisha (0.25 or 5-15 05-19 3 0.25 mg Seybold 0.5 00:00: 00:00 into the - mg/dose) 2 00 :00 skin once Exte rna mg/3 mL SQ a week l Solution Pen-Injecto r Spironolact 2022- No 25mg Take 1 Alex sey one 25 MG 5-10 05-10 tablet (25 Sey bold oral Tablet 08:56: 00:00 mg total) - 21 :00 by mouth 2 Externa times l daily Aspirin 81 Yes 81mg Take 1 Kelse y MG oral 5-10 tablet (81 Seybol d Chewable 08:09: mg total) - Tablet 56 by mouth Externa daily l Insulin Yes Inject per Maeve ey Aspart Prot 5-10 sliding Seybo ld & Aspart 00:00: scale - (NovoLOG 00 Externa 70/30 l FlexPen ReliOn) (70-30) 100 UNIT/ML subcutaneou s Suspension Pen-injecto r Insulin Yes inject 30 Kelse y Glargine 5-10 units Seybold (Lantus 00:00: daily - SoloStar) 00 Externa 100 UNIT/ML l subcutaneou s Solution Pen-injecto r Furosemide 0 Yes [id number] 20mg Take 1 K elsey (Lasix) 20 5-10 tablet (20 Sey bold MG oral 00:00: mg total) - Tablet 00 by mouth Externa daily l Metoprolol Yes [id number] 25mg Take 25 mg Maisha Succinate 5-10 by mouth Seybol d 25 MG oral 00:00: daily - Capsule ER 00 Externa 24 Hour l Sprinkle Lisinopril 0 Yes [id number] 5mg Take 1 K elsey 5 MG oral 5-10 tablet (5 Seybo ld Tablet 00:00: mg total) - 00 by mouth Externa daily l Potassium Yes [id number] 20meq Take 1 K elsey Chloride 5-10 tablet (20 Seybo ld Lanie ER 20 00:00: mEq total) - MEQ oral 00 by mouth Externa Tab CR daily l tablet Albuterol Yes [id number] 1.25mg Q.25D Take 3 mL Maisha Sulfate 5-10 (1.25 mg Seybold 1.25 MG/3ML 00:00: total) by - inhalation 00 nebulizati Ext tammi Inhalant on every 6 l Solution hours as needed for wheezing Amoxicillin Yes [id number] 1{tbl} Take 1 Maisha -Pot 5-10 tablet by Seybold Clavulanate 00:00: mouth 2 - 875-125 MG 00 times Externa oral Tablet daily l Furosemide 2022-0 Yes [id number] 20mg Take 1 K elsey (Lasix) 20 5-10 tablet (20 Sey bold MG oral 00:00: mg total) - Tablet 00 by mouth Externa daily l Metoprolol 2022-0 Yes [id number] 25mg Take 25 mg Maisha Succinate 5-10 by mouth Seybol d 25 MG oral 00:00: daily - Capsule ER 00 Externa 24 Hour l Sprinkle Lisinopril Yes [id number] 5mg Take 1 K elsey 5 MG oral 5-10 tablet (5 Seybo ld Tablet 00:00: mg total) - 00 by mouth Externa daily l Potassium Yes [id number] 20meq Take 1 K elsey Chloride 5-10 tablet (20 Seybo ld Lanie ER 20 00:00: mEq total) - MEQ oral 00 by mouth Externa Tab CR daily l tablet Metoprolol Yes 25mg Take 1 Kelse y Succinate 5-10 tablet (25 Seyb old 25 MG oral 00:00: mg total) - TABLET SR 00 by mouth Acid Concentrator a 24 HR daily l Albuterol Yes [id number] 1.25mg Q.25D Take 3 mL Maisha Sulfate 5-10 (1.25 mg Seybold 1.25 MG/3ML 00:00: total) by - inhalation 00 nebulizati Ext tammi Inhalant on every 6 l Solution hours as needed for wheezing Amoxicillin Yes [id number] 1{tbl} Take 1 Maisha -Pot 5-10 tablet by Seybold Clavulanate 00:00: mouth 2 - 875-125 MG 00 times Externa oral Tablet daily l Budesonide, Yes [id number] .5mg Take 2 mL Maisha Inhalation, 5-10 (0.5 mg Seybo ld 0.5 MG/2ML 00:00: total) by - inhalation 00 nebulizati Ext tammi Suspension on 2 times l daily Insulin 2022- No [id number] Inject 30 Maisha Detemir 04-08 3 units Seybold (Levemir) 00:00: 00:00 daily. - 100 UNIT/ML 00 :00 Increase Exte rna subcutaneou dosage by l s Solution 2 units every 2 days until fasting glucose less than 140 or better. Max daily dose of 60 units Insulin 2022- No [id number] Use as Maisha Aspart -09 03- 3 directed Seybold (NovoLOG 00:00: 00:00 three - FlexPen) 00 :00 times Externa 100 UNIT/ML daily, l subcutaneou inject 10 s Solution units TID Pen-injecto plus r sliding scale. Max daily dose 60 units predniSONE 3-0 2023- No [id number] 40mg Take 4 Maisha (DELTASONE) 5-10 05-16 tablets Seyb old 10 MG oral 00:00: 04:59 (40 mg - tablet 00 :00 total) by Externa mouth l daily for 5 days Spironolact 2022-0 Yes 25mg Take 1 Maeve ey one 25 MG 5-04 tablet (25 Seyb old oral Tablet 08:43: mg total) - 22 by mouth 2 Externa times l daily Aspirin 81 2022-0 Yes 81mg Take 1 Kelse y MG oral 5-04 tablet (81 Seybol d Chewable 08:43: mg total) - Tablet 22 by mouth Externa daily l NovoLOG 2022-0 Yes INJECT 15 Kelse y FlexPen 100 4-05 UNITS Seybold UNIT/ML 00:00: SUBCUTANEO - subcutaneou 00 USLY THREE Ex terna s Solution TIMES l Pen-injecto DAILY r NovoLOG 2022-0 Yes INJECT 15 Kelse y FlexPen 100 4-05 UNITS Seybold UNIT/ML 00:00: SUBCUTANEO - subcutaneou 00 USLY THREE Ex terna s Solution TIMES l Pen-injecto DAILY r Pantoprazol 2022-0 Yes 40mg Take 1 Maeve ey e Sodium 40 4-04 tablet (40 Se ybold MG oral 00:00: mg total) - Tablet 00 by mouth Externa Delayed daily l Response Pantoprazol 2022-0 Yes 40mg Take 1 Maeve ey e Sodium 40 4-04 tablet (40 Se ybold MG oral 00:00: mg total) - Tablet 00 by mouth Externa Delayed daily l Response Pantoprazol 2022-0 Yes 40mg Take 1 Maeve ey e Sodium 40 4-04 tablet (40 Se ybold MG oral 00:00: mg total) - Tablet 00 by mouth Externa Delayed daily l Response [place]-3-aci 2022-0 Yes 1g Take 1 Maeve ey d Ethyl 3-02 capsule (1 Seybol d Esters 1 g 00:00: g total) - oral 00 by mouth 2 Externa Capsule times l daily Famotidine 2022-0 Yes 40mg Take 1 Kelse y 40 MG oral 3-02 tablet (40 Sey bold Tablet 00:00: mg total) - 00 by mouth Externa daily l Metoprolol 2022-0 Yes 50mg Take 1 Kelse y Tartrate 3-02 tablet (50 Seybo ld (LOPRESSOR) 00:00: mg total) - 50 MG oral 00 by mouth 2 Ext tammi Tablet times l daily [place]-3-aci 0 Yes 1g Take 1 Maeve ey d Ethyl 3-02 capsule (1 Seybol d Esters 1 g 00:00: g total) - oral 00 by mouth 2 Externa Capsule times l daily Atorvastati 0 Yes 40mg Take 1 Maeve ey n Calcium 3-02 tablet (40 Seyb old 40 MG oral 00:00: mg total) - Tablet 00 by mouth Externa daily l Famotidine 0 Yes 40mg Take 1 Kelse y 40 MG oral 3-02 tablet (40 Sey bold Tablet 00:00: mg total) - 00 by mouth Externa daily l [place]-3-aci 0 Yes 1g Take 1 Maeve ey d Ethyl 3-02 capsule (1 Seybol d Esters 1 g 00:00: g total) - oral 00 by mouth 2 Externa Capsule times l daily Atorvastati 0 Yes 40mg Take 1 Maeve ey n Calcium 3-02 tablet (40 Seyb old 40 MG oral 00:00: mg total) - Tablet 00 by mouth Externa daily l Famotidine 2022-0 Yes 40mg Take 1 Kelse y 40 MG oral 3-02 tablet (40 Sey bold Tablet 00:00: mg total) - 00 by mouth Externa daily l Atorvastati 2022-0 2022- No 40mg Take 1 Alex sey n Calcium 3-02 05-19 tablet (40 Sey bold 40 MG oral 00:00: 00:00 mg total) - Tablet 00 :00 by mouth Externa daily l Metoprolol 2022-0 2022- No 50mg Take 1 Maeve ey Tartrate 3-02 05-10 tablet (50 Seyb old (LOPRESSOR) 00:00: 00:00 mg total) - 50 MG oral 00 :00 by mouth 2 Ext tammi Tablet times l daily aspirin 81 2021-11 Yes 81mg Take 81 mg U nivers mg chewable 2-14 by mouth ity of tablet 15:36: daily. [place] 13 Medical Branch spironolact 2021-11 Yes 25mg Take 25 mg Univers one 25 mg 2-14 by mouth 2 ity of tablet 15:36: (two) [place] 13 times Medical daily. Branch omega-3-dha 2021-11 Yes Take by Uni vers -epa-dpa-fi 2-14 mouth 2 ity o f sh oil 15:36: (two) [place] (OMEGA-3 13 times Medical 2100) daily. Branch 1,050-1,200 mg Cap METOPROLOL 2021-11 Yes 50mg Take 50 mg U nivers SUCCINATE 2-14 by mouth 2 ity of ORAL 15:36: (two) [place] 13 times Medical daily. Branch pantoprazol 2021-11 Yes 40mg Take 40 mg Univers e 40 mg EC 2-14 by mouth 2 ity of tablet 15:36: (two) [place] 13 times Medical daily. Branch aspirin 81 2021-11 Yes 81mg Take 81 mg U nivers mg chewable 2-14 by mouth ity of tablet 15:36: daily. [place] 13 Medical Branch spironolact 2021-11 Yes 25mg Take 25 mg Univers one 25 mg 2-14 by mouth 2 ity of tablet 15:36: (two) [place] 13 times Medical daily. Branch omega-3-dha 2021-11 Yes Take by Uni vers -epa-dpa-fi 2-14 mouth 2 ity o f sh oil 15:36: (two) [place] (OMEGA-3 13 times Medical 2100) daily. Branch 1,050-1,200 mg Cap METOPROLOL 2021-11 Yes 50mg Take 50 mg U nivers SUCCINATE 2-14 by mouth 2 ity of ORAL 15:36: (two) [place] 13 times Medical daily. Branch pantoprazol 2021-11 Yes 40mg Take 40 mg Univers e 40 mg EC 2-14 by mouth 2 ity of tablet 15:36: (two) [place] 13 times Medical daily. Branch atorvastati 2021-11- No 40mg Take 40 mg Univers n 20 mg 2-14 12-14 by mouth ity of tablet 11:58: 00:00 at [place] 50 :00 bedtime. Medical Branch famotidine 2021-11- No 40mg Take 40 mg Univers 40 mg 2-14 12-14 by mouth ity of tablet 11:58: 00:00 daily. [place] 50 :00 Medical Branch metoclopram 2021-11 No 10mg 10 mg, Uni vers nixon HCl 01-12 Slow IV ity of (REGLAN) 19:45: 17:59 [place], Q6H, [place] injection 00 :00 8 doses, Medica l 10 mg First dose Branch on Thu11/11/22 at 1345, Last dose on [facility] 11/13/22 at 0600, Routine potassium 2021-11 No 10meq 10 mEq, IV Univers chloride in 01-12 Piggyback, i ty of water 10 15:00: 17:25 Q1H, 2 [place] mEq/100 mL 00 :00 doses, Medical RTU 10 mEq First dose Bra nch on Thu11/11/22 at 0900, Last dose on Thu11/11/22 at 1000, Administer over 60 Minutes, 100 mL KCL 2021-11 No 40meq 40 mEq, Univers (KLOR-CON 01-12 Oral, Q2H, ity of M20) tablet 14:15: 19:57 3 doses, [place] 40 mEq 00 :00 First dose Medical on [facility] Branch 11/11/22 at 0815, Last dose on Thu11/11/22 at 1200, Routine pantoprazol 2021-11 Yes 40mg 40 mg, Univ ers e 01-12 Oral, BID, ity of (PROTONIX) 02:00: First dose [place] EC tablet 00 on Mon Medical 40 mg 11/10/22 Branch at 2000, Until Discontinu ed, Routine potassium 2021-11 No 10meq 10 mEq, IV Univers chloride in 01-11 Piggyback, i ty of water 10 23:45: 01:05 ONCE, 1 [place] mEq/100 mL 00 :00 dose, On Medic al RTU 10 mEq [facility] 11/10/22 at 1745, Administer over 60 Minutes, 100 mL potassium 2021-11 No 10meq 10 mEq, IV Univers chloride in 01-11 Piggyback, i ty of water 10 22:00: 22:59 ONCE, 1 [place] mEq/100 mL 00 :00 dose, On Medic al RTU 10 mEq [facility] 11/10/22 at 1600, Administer over 60 Minutes, 100 mL potassium 2021-11 10meq 10 mEq, IV Univers chloride in -11-10 Piggyback, i ty of water 10 17:00: 20:59 Q1H, 4 [place] mEq/100 mL 00 :00 doses, Medical RTU 10 mEq First dose Bra nch on Thu11/10/22 at 1100, Last dose on Thu11/10/22 at 1400, Administer over 60 Minutes, 100 mL KCL 2021-11 40meq 40 mEq, Univers (KLOR-CON 01-11 Oral, ity of M20) tablet 15:45: 14:57 ONCE, 1 [place] 40 mEq 00 :00 dose, On [facility] 11/10/22 at 0945, Routine insulin 2021-11 Yes 10U 10 Units, Unive rs glargine 01-11 Subcutaneo ity o f (LANTUS 15:00: us, DAILY, [place] U-100) 00 First dose Medical injection on [facility] 10 Units 11/10/22 at 0900, Until Discontinu ed, Routine aspirin 2021-11 Yes 81mg 81 mg, Univers chewable 01-11 Oral, ity of tablet 81 15:00: DAILY, [place] mg 00 First dose Medical on [facility] 11/10/22 at 0900, Until Discontinu ed, Routine Sliding 2021-11 Yes Subcutaneo Univ ers Scale 2-12 us, TID ity of Insulin - 14:00: MEALS+HS, Alex as Lispro 00 First dose Medical (HumaLOG) + (after Branch Fsbg last Testing modificati on) on [facility] 11/10/22 at 0800, Until Discontinu ed, Routine metoprolol 2021-11 Yes 50mg 50 mg, Unive rs succinate 2-12 Oral, BID, ity of XL (TOPROL 14:00: First dose [place] XL) tablet 00 on [facility] Medical 50 mg 11/10/22 Branch at 0800, Until Discontinu ed apixaban 2021-11 Yes 1358 5mg 5 mg, Univers (ELIQUIS) 2-12 Oral, BID, ity of tablet 5 mg 14:00: First dose [place] 00 on [facility] 11/10/22 Branch at 0800, Until Discontinu ed, Routine
Indicatio ns: Non-Valvul ar Atrial Fibrillati on pantoprazol 2021-11 No 40mg 40 mg, Uni vers e - 12-12 Slow IV ity of (PROTONIX) 14:00: 21:04 Push, [place] injection 00 :12 Q12H, Medical 40 mg First dose Branch on 11/10/22 at 0800, Until Discontinu ed spironolact 2021-11 No 25mg 25 mg, Uni vers one 01-11-12 Oral, BID, ity of (ALDACTONE) 14:00: 21:02 First dose [place] tablet 25 00 :33 on Mon Medical mg 11/10/22 Branch at 0800, Until Discontinu ed, Routine glucagon 2021-11 Yes 1mg 1 mg, Univers (GLUCAGEN 12 Intramuscu ity of DIAGNOSTIC 07:13: lar, PRN, [place] KIT) 25 Starting Medical injection 1 on Mon Branch mg 11/10/22 at 0113, Until Discontinu ed, [place], Blood Glucose < or = 70 mg/dL and patient is unable to swallow or has mental changes. dextrose 50 2021-11 Yes 25mL 25 mL, Univ ers % in water 2-12 Slow IV ity of (D50W) 07:13: Push, PRN, [place] injection 25 Starting Medica l 25 mL on Mon Branch 11/10/22 at 0113, Until Discontinu ed, [place], Blood Glucose < or = 70 mg/dL and patient is unable to swallow or has mental status changes. ondansetron 2021-11 4mg 4 mg, Slow Univers (ZOFRAN 01-11 IV Push, ity of (PF)) 07:13: 19:30 Q6HPRN, [place] injection 4 15 :03 Starting Medi mariam mg on Mon Branch 11/10/22 at 0113, Until 11/11/22 at 1330, Routine, Nausea and Vomiting (N/V) HYDROcodone 2021-11 Yes 1{tbl} 1 tablet, Univers -acetaminop 2-12 Oral, ity of hen (NORCO) 07:13: Q6HPRN, Alex as 10-325 mg 12 Starting Medica l tablet 1 on Thu Branch tablet 11/10/22 at 0113, Until Discontinu ed, Routine, Pain (scale 7-10) acetaminoph 2021-11 Yes 650mg 650 mg, Un ko en 01-11 Oral, ity of (TYLENOL) 07:13: Q6HPRN, [place] tablet 650 06 Starting Medic al mg on Mon [place] 11/10/22 at 0113, Until Discontinu ed, Routine, Pain (scale 1-3) potassium 2021-11 No 10meq 10 mEq, IV Univers chloride in 01-11 Piggyback, i ty of water 10 06:00: 06:45 ONCE, 1 [place] mEq/100 mL 00 :00 dose, On Medic al RTU 10 mEq Thu [place] 11/10/22 at 0000, Administer over 60 Minutes, 100 mL pantoprazol 2021-11 No 40mg 40 mg, Uni vers e 01-11 Slow IV ity of (PROTONIX) 04:45: 05:14 Push, [place] injection 00 :00 ONCE, 1 Medical 40 mg dose, On [facility] 11/09/22 at 2245 NaCl 0.9% 2021-11 No 1000mL at 999 Uni vers (NS) bolus 01-11 mL/hr, ity of infusion 04:15: 04:00 1,000 mL, Alex as 1,000 mL 00 :00 IV Medical Infusion, [place] ONCE, 1 dose, On [place] 11/09/22 at 2215, STAT metoclopram 2021-11- No 10mg 10 mg, Uni vers nixon HCl 01-11 Slow IV ity of (REGLAN) 03:15: 03:54 Push, [place] injection 00 :00 ONCE, 1 Medical 10 mg dose, On [facility] 11/09/22 at 2115, [place] aspirin 81 2021-11 Yes 81mg Take 81 mg U nivers mg chewable 2-12 by mouth ity of tablet 01:13: daily. [place] 48 Medical [place] spironolact 2021-11 Yes 25mg Take 25 mg Univers one 25 mg 2-12 by mouth 2 ity of tablet 01:13: (two) [place] 48 times Medical daily. [place] omega-3-dha 2021-11 Yes Take by Uni vers -epa-dpa-fi 2-12 mouth 2 ity o f sh oil 01:13: (two) [place] (OMEGA-3 48 times Medical 2100) daily. Branch 1,050-1,200 mg Cap METOPROLOL 2021-11 Yes 50mg Take 50 mg U nivers SUCCINATE 2-12 by mouth 2 ity of ORAL 01:13: (two) [place] [id number] times Medical daily. Branch atorvastati 2021-11 Yes 40mg Take 40 mg Univers n 20 mg 2-12 by mouth ity of tablet 01:13: at [place] [id number] bedtime. Medical Branch pantoprazol 2021-11 Yes 40mg Take 40 mg Univers e 40 mg EC 2-12 by mouth 2 ity of tablet 01:13: (two) [place] [address] times Medical daily. Branch famotidine 2021-11 Yes 40mg Take 40 mg U nivers 40 mg 2-12 by mouth ity of tablet 01:13: daily. [address] Branch aspirin 81 2021-11 Yes 81mg Take 81 mg U nivers mg chewable 2-12 by mouth ity of tablet 01:13: daily. [place] [address] Medical Branch spironolact 2021-11 Yes 25mg Take 25 mg Univers one 25 mg 2-12 by mouth 2 ity of tablet 01:13: (two) [place] [address] times Medical daily. Branch omega-3-dha 2021-11 Yes Take by Uni vers -epa-dpa-fi 2-12 mouth 2 ity o f sh oil 01:13: (two) [place] (OMEGA-3 48 times Medical 2100) daily. Branch 1,050-1,200 mg Cap METOPROLOL 2021-11 Yes 50mg Take 50 mg U nivers SUCCINATE 2-12 by mouth 2 ity of ORAL 01:13: (two) [place] [address] times Medical daily. Branch atorvastati 2021-11 Yes 40mg Take 40 mg Univers n 20 mg 2-12 by mouth ity of tablet 01:13: at [place] [address] bedtime. Medical Branch pantoprazol 2021-11 Yes 40mg Take 40 mg Univers e 40 mg EC 2-12 by mouth 2 ity of tablet 01:13: (two) [place] [address] times Medical daily. Branch famotidine 2021-11 Yes 40mg Take 40 mg U nivers 40 mg 2-12 by mouth ity of tablet 01:13: daily. [place] [address] Medical Branch insulin 2021-11 Yes 10U 10 Units, Unive rs glargine 2-10 Subcutaneo ity o f (LANTUS 15:00: [place], DAILY, [place] U-100) 00 First dose Medical injection (after Branch 10 Units last modificati on) on 11/08/22 at 0900, Until Discontinu ed, Routine insulin 2021-11 Yes [id number] 10U inject 10 Univers glargine 2-10 Units ity of 100 unit/mL 00:00: under the [place] injection 00 skin Medical daily. If Branch not eating or if blood sugar is between 80 and 120 give HALF the dose. If blood sugar less than 80: Eat a meal and recheck. Give half dose of insulin once blood sugar over 120. insulin 2021-11 Yes [id number] 10U inject 10 Univers glargine 2-10 Units ity of 100 unit/mL 00:00: under the [place] injection 00 skin Medical daily. If Branch not eating or if blood sugar is between 80 and 120 give HALF the dose. If blood sugar less than 80: Eat a meal and recheck. Give half dose of insulin once blood sugar over 120. insulin 2021-11 Yes [id number] 10U inject 10 Univers glargine 2-10 Units ity of 100 unit/mL 00:00: under the [place] injection 00 skin Medical daily. If Branch not eating or if blood sugar is between 80 and 120 give HALF the dose. If blood sugar less than 80: Eat a meal and recheck. Give half dose of insulin once blood sugar over 120. insulin 2021-11 Yes [id number] 10U inject 10 Univers glargine 2-10 Units ity of 100 unit/mL 00:00: under the [place] injection 00 skin Medical daily. If Branch not eating or if blood sugar is between 80 and 120 give HALF the dose. If blood sugar less than 80: Eat a meal and recheck. Give half dose of insulin once blood sugar over 120. insulin 2021-11 Yes [id number] 10U inject 10 Univers glargine 2-10 Units ity of 100 unit/mL 00:00: under the [place] injection 00 skin Medical daily. If Branch not eating or if blood sugar is between 80 and 120 give HALF the dose. If blood sugar less than 80: Eat a meal and recheck. Give half dose of insulin once blood sugar over 120. insulin 2021-11 Yes 3U 3 Units, Univer s lispro 2-09 Subcutaneo ity of (human) 23:00: us, TID [place] (HumaLOG 00 MEALS, Medical U-100) First dose Branch injection 3 (after Units last modificati on) on Thu11/07/22 at 1700, Until Discontinu ed, Routine aspirin 81 2021-11 Yes 81mg Take 81 mg U nivers mg chewable 2-09 by mouth ity of tablet 17:37: daily. [place] 57 Medical Branch spironolact 2021-11 Yes 25mg Take 25 mg Univers one 25 mg 2-09 by mouth 2 ity of tablet 17:37: (two) [place] 57 times Medical daily. Branch omega-3-dha 2021-11 Yes Take by Un ko -epa-dpa-fi 2-09 mouth 2 ity o f sh oil 17:37: (two) [place] (OMEGA-3 57 times Medical 2100) daily. Branch 1,050-1,200 mg Cap METOPROLOL 2021-11 Yes 50mg Take 50 mg U nivers SUCCINATE 2-09 by mouth 2 ity of ORAL 17:37: (two) [place] 57 times Medical daily. Branch atorvastati 2021-11 Yes 40mg Take 40 mg Univers n 20 mg 2-09 by mouth ity of tablet 17:37: at [place] 57 bedtime. Medical Branch pantoprazol 2021-11 Yes 40mg Take 40 mg Univers e 40 mg EC 2-09 by mouth 2 ity of tablet 17:37: (two) [place] 57 times Medical daily. Branch sodium 2021-11- 30mmol 30 mmol, Univ ers phosphate 01-08- IV ity of 30 mmol in 17:30: 21:49 Piggyback, [place] NaCl 0.9% 00 :00 ONCE, 1 Medical (NS) 250 mL dose, On Bran ch piggyback Thu11/07/22 at 1130, Administer over 4 Hours, 250 mL apixaban 2021-11 Yes 5mg 5 mg, Univers (ELIQUIS) 2-09 Oral, BID, ity of tablet 5 mg 15:30: First dose [place] 00 on Thu Medical 11/07/22 at Branch 0930, Until Discontinu ed, Routine
Indicatio ns: Non-Valvul ar Atrial Fibrillati on aspirin 2021-11 Yes 81mg 81 mg, Univers chewable - Oral, ity of tablet 81 15:00: DAILY, [place] mg 00 First dose Medical on Thu [place] 11/07/22 at 0900, Until Discontinu ed, Routine KCL 2021-11- No 40meq 40 mEq, Univers (KLOR-CON 01-08- Oral, ity of M20) tablet 15:00: 17:13 ONCE, 1 [place] 40 mEq 00 :00 dose, On Medical Fri [place] 11/07/22 at 0900, Routine insulin 2021-11- No 35U inject 35 Univ ers regular, 01-08- Units ity of human 14:59: 00:00 under the [place] (HUMULIN R 33 :00 skin 2 Medical U-500, (two) Branch CONC, times INSULIN SC) daily. tirzepatide 2021-11- No 5mg inject 5 U nivers 5 mg/0.5 mL 01-08 mg under ity of subcutaneou 14:59: 00:00 the skin [place] injection 33 :00 weekly. Medic al [place] metoprolol 2021-11 Yes 50mg 50 mg, Unive rs succinate 2- Oral, BID, ity of XL (TOPROL 14:00: First dose [place] XL) tablet 00 on Thu Medical 50 mg 11/07/22 at Branch 0800, Until Discontinu ed, Routine atorvastati 2021-11 Yes 40mg 40 mg, Univ ers n (LIPITOR) 2- Oral, QHS, it y of tablet 40 03:00: First dose [place] mg 00 on [place] 11/06/22 at Branch 2100, Until Discontinu ed, Routine Metformin 2021-11 Yes 1000mg Take 1 Maeve ey HCl 1000 MG 2-09 tablet Seybol d oral Tablet 00:00: (1,000 mg - 00 total) by Externa mouth in l the morning and 1 tablet (1,000 mg total) in the evening. Take with meals. INSULIN 2021-11 Yes Do not Maisha REGULAR 2-09 take your Seybold HUMAN 00:00: scheduled - (HUMULIN R) 00 regular Exter na 500 UNIT/ML insulin. l subcutaneou Only use s Solution regular insulin before breakfast and dinner if blood sugar above 170 as following Blood sugar 170 to 220, give 1 unit. Blood sugar 221 to 270, give 2 units. Blood sugar 271 to 300, give 3 units. Blood sugar greater than 300, give 4 units, recheck in 6 hours or before next meal and cover again with sliding scale Metformin 2021-11 Yes 1000mg Take 1 Maeve ey HCl 1000 MG 2-09 tablet Seybol d oral Tablet 00:00: (1,000 mg - 00 total) by Externa mouth in l the morning and 1 tablet (1,000 mg total) in the evening. Take with meals. apixaban 5 2021-11 Yes 1358 5mg Take 1 Unive rs mg tablet 2-09 tablet by ity o f 00:00: mouth 2 (two) Medical times Branch daily. Indication s: atrial fibrillati on tirzepatide 2021-11 Yes [id number] 7.5mg inject 7.5 Univers (MOUNJARO) 2-09 mg under ity o f 7.5 mg/0.5 00:00: the skin [place] mL PnIj 00 weekly. Medical Branch metFORMIN 2021-11 Yes [id number] 1000mg Take 1 Univers 1,000 mg 2-09 tablet by ity of tablet 00:00: mouth 2 (two) Medical times Branch daily with meals. insulin 2021-11 Yes [id number] Do not Uni vers regular 2-09 take your ity of human 00:00: scheduled [place] (HUMULIN R) 00 regular Medic al 500 unit/mL insulin. Bran ch injection Only use regular insulin before breakfast and dinner if blood sugar above 170 as following Blood sugar 170 to 220, give 1 unit. Blood sugar 221 to 270, give 2 units. Blood sugar 271 to 300, give 3 units. Blood sugar greater than 300, give 4 units, recheck in 6 hours or before next meal and cover again with sliding scale apixaban 5 2021-11 Yes 1358 5mg Take 1 Unive rs mg tablet 2-09 tablet by ity o f 00:00: mouth 2 (two) Medical times Branch daily. Indication s: atrial fibrillati on tirzepatide 2021-11 Yes [id number] 7.5mg inject 7.5 Univers (MOUNJARO) 2-09 mg under ity o f 7.5 mg/0.5 00:00: the skin [place] mL PnIj 00 weekly. Medical Branch metFORMIN 2021-11 Yes [id number] 1000mg Take 1 Univers 1,000 mg 2-09 tablet by ity of tablet 00:00: mouth (two) Medical times Branch daily with meals. insulin 2021-11 Yes [id number] Do not Uni vers regular 2-09 take your ity of human 00:00: scheduled [place] (HUMULIN R) 00 regular Medic al 500 unit/mL insulin. Bran ch injection Only use regular insulin before breakfast and dinner if blood sugar above 170 as following Blood sugar 170 to 220, give 1 unit. Blood sugar 221 to 270, give 2 units. Blood sugar 271 to 300, give 3 units. Blood sugar greater than 300, give 4 units, recheck in 6 hours or before next meal and cover again with sliding scale apixaban 5 2021-11 Yes 1358 5mg Take 1 Unive rs mg tablet 2-09 tablet by ity o f 00:00: mouth (two) Medical times Branch daily. Indication s: atrial fibrillati on tirzepatide 2021-11 Yes [id number] 7.5mg inject 7.5 Univers (MOUNJARO) 2-09 mg under ity o f 7.5 mg/0.5 00:00: the skin [place] mL PnIj 00 weekly. Medical Branch metFORMIN 2021-11 Yes [id number] 1000mg Take 1 Univers 1,000 mg 2-09 tablet by ity of tablet 00:00: mouth (two) Medical times Branch daily with meals. insulin 2021-11 Yes [id number] Do not Uni vers regular 2-09 take your ity of human 00:00: scheduled [place] (HUMULIN R) 00 regular Medic al 500 unit/mL insulin. Bran ch injection Only use regular insulin before breakfast and dinner if blood sugar above 170 as following Blood sugar 170 to 220, give 1 unit. Blood sugar 221 to 270, give 2 units. Blood sugar 271 to 300, give 3 units. Blood sugar greater than 300, give 4 units, recheck in 6 hours or before next meal and cover again with sliding scale apixaban 5 2021-11 Yes 1358 5mg Take 1 Unive rs mg tablet 2-09 tablet by ity o f 00:00: mouth 2 (two) Medical times Branch daily. Indication s: atrial fibrillati on metFORMIN 2021-11 Yes [id number] 1000mg Take 1 Univers 1,000 mg 2-09 tablet by ity of tablet 00:00: mouth ([facility]) Medical times [place] daily with meals. insulin 2021-11 Yes [id number] Do not Uni vers regular -09 take your ity of human 00:00: scheduled [place] (HUMULIN R) 00 regular Medic al 500 unit/mL insulin. Bran ch injection Only use regular insulin before breakfast and dinner if blood sugar above 170 as following Blood sugar 170 to 220, give 1 unit. Blood sugar 221 to 270, give 2 units. Blood sugar 271 to 300, give 3 units. Blood sugar greater than 300, give 4 units, recheck in 6 hours or before next meal and cover again with sliding scale apixaban 5 2021-11 Yes 1358 5mg Take 1 Unive rs mg tablet 2- tablet by ity o f 00:00: mouth ([facility]) Medical times Branch daily. Indication s: atrial fibrillati on metFORMIN 2021-11 Yes [id number] 1000mg Take 1 Univers 1,000 mg 2-09 tablet by ity of tablet 00:00: mouth ([facility]) Medical times [place] daily with meals. insulin 2021-11 Yes [id number] Do not Uni vers regular 01-08 take your ity of human 00:00: scheduled [place] (HUMULIN R) 00 regular Medic al 500 unit/mL insulin. Bran ch injection Only use regular insulin before breakfast and dinner if blood sugar above 170 as following Blood sugar 170 to 220, give 1 unit. Blood sugar 221 to 270, give 2 units. Blood sugar 271 to 300, give 3 units. Blood sugar greater than 300, give 4 units, recheck in 6 hours or before next meal and cover again with sliding scale Metformin 2021-11- No 1000mg Take 1 Alex sey HCl 1000 MG 01-08 tablet Seybo ld oral Tablet 00:00: 00:00 (1,000 mg - 00 :00 total) by Externa mouth in l the morning and 1 tablet (1,000 mg total) in the evening. Take with meals. INSULIN 2021-11- No Do not Maisha REGULAR 2-09 05-10 take your Seybol d HUMAN 00:00: 00:00 scheduled - (HUMULIN R) 00 :00 regular Exter na 500 UNIT/ML insulin. l subcutaneou Only use s Solution regular insulin before breakfast and dinner if blood sugar above 170 as following Blood sugar 170 to 220, give 1 unit. Blood sugar 221 to 270, give 2 units. Blood sugar 271 to 300, give 3 units. Blood sugar greater than 300, give 4 units, recheck in 6 hours or before next meal and cover again with sliding scale tirzepatide 2021-11- No [id number] 7.5mg inject 7.5 Univers (MOUNJARO) 01-08 12-14 mg under ity of 7.5 mg/0.5 00:00: 00:00 the skin [place] mL PnIj 00 :00 weekly. Medical Branch Sliding 2021-11 Yes Subcutaneo [facility] ers Scale 2-08 us, TID ity of Insulin - 23:00: MEALS+HS, [place] Lispro 00 First dose Medical (HumaLOG) + on [place] Branch [facility] 11/06/22 at Testing 1700, Until Discontinu ed, Routine insulin 2021-11- No 6U 6 Units, Univ rs lispro 01-07 Subcutaneo ity of (human) 23:00: 20:55 us, TID [place] (HumaLOG 00 :57 MEALS, Medical U-100) First dose Branch injection 6 on [place] Units 11/06/22 at 1700, Until Discontinu ed, Routine enoxaparin 2021-11- No 40mg 40 mg, Univ ers (LOVENOX) 01-07 Subcutaneo ity of injection 23:00: 15:23 us, DAILY, [place] 40 mg 00 :13 First dose Medical on [place] Branch 11/06/22 at 1700, Until Discontinu ed, Routine D5W-LR IV 2021-11 Yes 1000mL at 150 Univ ers infusion 2-08 mL/hr, IV ity of 1,000 mL 22:32: Infusion, [place] 00 CONTINUOUS Medical , Starting Branch on [place] 11/06/22 at 1645, Until Discontinu ed, Routine glucagon 2021-11 Yes 1mg 1 mg, Univers (GLUCAGEN 2-08 Intramuscu ity of DIAGNOSTIC 22:00: lar, PRN, [place] KIT) 35 Starting Medical injection 1 on [place] Branch mg 11/06/22 at 1600, Until Discontinu ed, [place], Blood Glucose < or = 70 mg/dL and patient is unable to swallow or has mental changes. dextrose 50 2021-11 Yes 25mL 25 mL, Univ ers % in water 2- Slow IV ity of (D50W) 22:00: Push, PRN, [place] injection 35 Starting Medica l 25 mL on [place] Branch 11/06/22 at 1600, Until Discontinu ed, [place], Blood Glucose < or = 70 mg/dL and patient is unable to swallow or has mental status changes. sodium 2021-11 50meq 50 mEq, Univer s bicarbonate 01-07 Slow IV ity of 8.4 % (1 16:15: 16:16 Push, [place] mEq/mL) 00 :00 ONCE, 1 Medical injection dose, On Branch 50 mEq [place] 11/06/22 at 1015, Routine insulin 2021-11- No 20U 20 Units, Univ ers glargine 01-07 Subcutaneo ity of (LANTUS 15:30: 20:55 us, DAILY, [place] U-100) 00 :57 First dose Medical injection on [place] Branch 20 Units 11/06/22 at 0930, Until Discontinu ed, Routine clotrimazol 2021-11 Yes Topical, Un ko e 2-08 DAILY, ity of (LOTRIMIN) 15:00: First dose [place] 1 % topical 00 on [place] Medica l cream 11/06/22 at Branch 0900, Until Discontinu ed, Routine morpHINE (2 2021-11- No 2mg 2 mg, Slow Univers mg/mL) 01-07 IV Push, ity of injection 2 14:51: 16:16 ONCE, 1 [place] mg 00 :00 dose, On Medical [place] Branch 11/06/22 at 0900, Routine empaglifloz 2021-11- No 2{tbl} Take 2 U nivers in-metformi 01-07 tablets by i pearl 14:36: 00:00 mouth 2 [place] (SYNJARDY) 52 :00 (two) Medical 12.5-1,000 times Branch mg Tab daily. D5W-LR IV 2021-11 No 1000mL at 200 Uni vers infusion 01-07 mL/hr, IV ity o f 1,000 mL 12:45: 21:59 Infusion, [place] as 00 :42 CONTINUOUS Medical , Starting Branch on [place] 11/06/22 at 0645, Until [place] 11/06/22 at 1559, Routine ondansetron 2021-11 Yes 4mg 4 mg, Slow Univers (ZOFRAN 01-07 IV Push, ity of (PF)) 11:51: Q6HPRN, [place] injection 4 01 Starting Medi mariam mg on [place] Branch 11/06/22 at 0551, Until Discontinu ed, [place], Nausea and Vomiting (N/V) acetaminoph 2021-11 Yes 650mg 650 mg, Un ko en 08 Oral, ity of (TYLENOL) 11:39: Q6HPRN, [place] tablet 650 11 Starting Medic al mg on [place] Branch 11/06/22 at 0539, Until Discontinu ed, Routine, Pain (scale 4-6), Pain (scale 1-3), headache NaCl 0.9% 2021-11 No 1000mL at 999 Uni vers (NS) bolus 01-07 mL/hr, ity of infusion 07:30: 08:22 1,000 mL, Alex as 1,000 mL 00 :00 IV Medical Infusion, Branch ONCE, 1 dose, On [place] 11/06/22 at 0130, STAT morpHINE (2 2021-11 No 4mg 4 mg, Slow Univers mg/mL) 01-07 IV Push, ity of injection 4 07:15: 07:16 ONCE, 1 [place] mg 00 :00 dose, On Medical [place] Branch 11/06/22 at 0115, Routine iopamidol 2021-11- No [id number] 150mL 150 mL, Univers (ISOVUE 01-07 Intravenou ity o f 370-500 mL) 07:00: 07:00 s, ONCE, 1 [place] injection 00 :00 dose, On Medica l 150 mL [place] Branch 11/06/22 at 0100, Routine NaCl 0.45% 2021-11- No 1000mL Univ ers (1/2NS) 01-07 ity of 1000 mL + 06:45: 11:36 [place] KCL 20 mEq 00 :49 Medical Branch D5W 0.45% 2021-11- No IV Univers NaCl 01-07 Infusion, ity of (1/2NS) 1 L 06:43: 11:36 at 200 Alex as + KCL 20 25 :49 mL/hr, PRN Medic al mEq - SEE Branch INSTRUCTIO NS, Starting on [place] 11/06/22 at 0043, Until [place] 11/06/22 at 0536, [place], Blood glucose control acetaminoph 2021-11 No 975mg 975 mg, U nivers en 01-07 Oral, ity of (TYLENOL) 05:30: 04:58 ONCE, 1 [place] tablet 975 00 :00 dose, On Medic al mg [facility] Branch 11/05/22 at 2330, [place] ondansetron 2021-11- No 4mg 4 mg, Slow Univers (ZOFRAN 01-07 IV Push, ity of (PF)) 05:30: 04:57 ONCE, 1 [place] injection 4 00 :00 dose, On Medi mariam mg [facility] Branch 11/05/22 at 2330, [place] sulfur 2021-11- No [id number] 5mL 5 mL, Unive rs hexafluorid 0-06 10-06 Intravenou i ty of e microsphr 17:15: 17:15 s, ONCE, 1 [place] (LUMASON) 00 :00 dose, On Medica l injection 5 [place] Branch mL 09/04/22 at 1215, Routine
pricing/signage team member approving Restricted medication : MAURA QUEEN aspirin 81 2021-11 Yes 81mg Take 81 mg U nivers mg chewable 0-06 by mouth ity of tablet 14:37: daily. [address] Branch empaglifloz 2021-11 Yes 2{tbl} Take 2 Un ko in-metformi 0-06 tablets by it y of n 14:37: mouth 2 [place] (SYNJARDY) (two) Medical 12.5-1,000 times Branch mg Tab daily. spironolact 2021-11 Yes 25mg Take 25 mg Univers one 25 mg 0-06 by mouth 2 ity of tablet 14:37: (two) [place] 28 times Medical daily. Branch omega-3-dha 2021-11 Yes Take by Uni vers -epa-dpa-fi 0-06 mouth 2 ity o f sh oil 14:37: (two) [place] (OMEGA-3 28 times Medical 2100) daily. Branch 1,050-1,200 mg Cap METOPROLOL 2021-11 Yes 50mg Take 50 mg U nivers SUCCINATE 0-06 by mouth 2 ity of ORAL 14:37: (two) [place] 28 times Medical daily. Branch atorvastati 2021-11 Yes 40mg Take 40 mg Univers n 20 mg 0-06 by mouth ity of tablet 14:37: at [place] 28 bedtime. Medical Branch pantoprazol 2021-11 Yes 40mg Take 40 mg Univers e 40 mg EC 0-06 by mouth 2 ity of tablet 14:37: (two) [place] 28 times Medical daily. Branch insulin 2021-11 Yes 35U inject 35 Unive rs regular, 0-06 Units ity of human 14:37: under the [place] (HUMULIN R 28 skin 2 Medical U-500, [...] [place] mg 00 First dose Medical on [place] Branch 09/04/22 at 0900, Until Discontinu ed, Routine insulin 2021-11- No inject Univers glargine,hu 0-06 10-06 under the it y of m.rec.anlog 13:06: 00:00 skin. [place] (TOUJEO 04 :00 Medical SOLOSTAR Branch U-300 INSULIN SC) apixaban 2021-11- No 5mg Take 5 mg Uni vers (ELIQUIS) 5 0-06 10-06 by mouth 2 i ty of mg tablet 13:06: 00:00 (two) [place] 04 :00 times Medical daily. Branch enoxaparin 2021-11 Yes 40mg 40 mg, Unive rs (LOVENOX) 0-06 Subcutaneo ity of injection 05:45: us, Q24H, Alex as 40 mg 00 First dose Medical on [place] Branch 09/04/22 at 0045, Until Discontinu ed, [...] y of human 70-30 04:45: us, BIDAC, [place] (70-30 00 First dose Medical U-100 on Thu Branch INSULIN) 09/03/22 at 100 unit/mL 2345, (70-30) Until injection Discontinu 35 Units ed, Routine atorvastati 2021-11 Yes 40mg 40 mg, Univ ers n (LIPITOR) 0-06 Oral, QHS, it y of tablet 40 04:45: First dose [place] mg 00 on [facility] 09/03/22 at Branch 2345, Until Discontinu ed, Routine furosemide 2021-11- No 20mg 20 mg, IV U nivers (LASIX) 0-06 10-06 Push, Q8H, ity o f injection 04:45: 13:50 First dose [place] 20 mg 00 :16 on [facility] 09/03/22 at Branch 2345, Until Discontinu ed, [place] ondansetron 2021-11 Yes 4mg 4 mg, Slow Univers (ZOFRAN 0-06 IV Push, ity of (PF)) 04:33: Q6HPRN, [place] injection 4 54 Starting Medi mariam mg on [facility] 09/03/22 at 2333, Until Discontinu ed, Routine, Nausea and Vomiting (N/V) Sliding 2021-11 Yes Subcutaneo Univ ers Scale 0-06 us, TID ity of Insulin - 04:30: MEALS+HS, [place] Lispro 00 First dose Medical (HumaLOG) + on Thu [place] [facility] 09/03/22 at Testing 2330, Until Discontinu ed, Routine nitroglycer 2021-11- No .4mg 0.4 mg, Un ko in 0-05 10-05 Sublingual ity of (NITROSTAT) 22:30: 22:34 , ONCE, 1 [place] sublingual 00 :00 dose, On Medic al tablet 0.4 Thu Branch mg 09/03/22 at 1730, [place] magnesium 2021- No 400mg 400 mg, Uni vers oxide 04-2427 Oral, BID, ity of (MAG-OX 01:00: 12:59 3 doses, [place] 400) tablet 00 :00 First dose Me dical 400 mg on [facility] Branch 04/23/22 at 1999, Last dose on [place] 04/24/22 at 2000, Routine maalox:diph 2021-0 Yes 15mL 15 mL, Univ ers enhydrAMINE 5-25 Oral, ity of :lidocaine 15:47: QDAILYPRN, [place] 2 % viscous 15 Starting Medi mariam 1:1:1 on Wed Branch ([facility] 04/23/22 at [facility]) 1047, oral Until suspension Discontinu 15 mL ed, Routine, indigestio n insulin 0 Yes inject Univers glargine,hu 5-25 under the ity of m.rec.anlog 15:15: skin. [place] (TOUJEO [facility] aspirin 81 Yes 81mg Take 81 mg U nivers mg chewable 5-25 by mouth ity of tablet 15:15: daily. [place] [facility] empaglifloz Yes 2{tbl} Take 2 Un ko in-metformi 5-25 tablets by it y of n 15:15: mouth 2 [place] (SYNJARDY) 25 (two) Medical 12.5-1,000 times Branch mg Tab daily. apixaban Yes 5mg Take 5 mg Univ ers (ELIQUIS) 5 5-25 by mouth 2 it y of mg tablet 15:15: (two) [place] 25 times Medical daily. [place] spironolact Yes 25mg Take 25 mg Univers one 25 mg 5-25 by mouth 2 ity of tablet 15:15: (two) [place] 25 times Medical daily. Branch insulin Yes inject Univers glargine,hu 5-25 under the ity of m.rec.anlog 15:15: skin. [place] (TOUJEO 25 [facility] U-300 INSULIN SC) aspirin 81 0 Yes 81mg Take 81 mg U nivers mg chewable 5-25 by mouth ity of tablet 15:15: daily. [address] empaglifloz Yes 2{tbl} Take 2 Un ko in-metformi 5-25 tablets by it y of n 15:15: mouth 2 [place] (SYNJARDY) 25 (two) Medical 12.5-1,000 times Branch mg Tab daily. apixaban 2022-0 Yes 5mg Take 5 mg Univ ers (ELIQUIS) 5 5-25 by mouth 2 it y of mg tablet 15:15: (two) [place] 25 times Medical daily. Branch spironolact Yes 25mg Take 25 mg Univers one 25 mg 5-25 by mouth 2 ity of tablet 15:15: (two) [place] 25 times Medical daily. Branch KCL 2021- No 40meq 40 mEq, Univers (KLOR-CON - 05-25 Oral, ity of M20) tablet 14:15: 15:57 ONCE, 1 [place] 40 mEq 00 :00 dose, On Medical Thu [place] 04/23/22 at 0915, Routine insulin 2021- No inject Univers glargine,hu 04-23-25 under the it y of m.rec.anlog 10:54: 00:00 skin. [place] (LANTUS [place]) 26 :00 Medical Branch sitagliptin 2021- No Take by Un ko phosphate 04-23-25 mouth. ity of (JANUVIA 10:54: 00:00 [place] ORAL) 26 :00 Medical Branch atorvastati 2021- No 40mg Take 40 mg Univers n calcium 04-23-25 by mouth. ity of (LIPITOR 10:54: 00:00 [place] ORAL) 26 :00 Medical Branch METOPROLOL 2021- No 50mg Take 50 mg Univers TARTRATE 04-23 05-25 by mouth 2 ity of ORAL 10:54: 00:00 (two) [place] 26 :00 times Medical daily. Branch morpHINE (2 Yes [id number] 2mg 2 mg, Slow Univers mg/mL) 5-25 IV Push, ity of injection 2 10:16: Q4HPRN, Alex as mg 57 Starting Medical on Thu Branch 04/23/22 at 0516, Until Discontinu ed, Routine, Pain (scale 7-10) Sliding Yes Subcutaneo Univ ers Scale 5-25 us, Q3H, ity of Insulin - 03:00: First dose [place] Lispro 00 on [facility] (HumaLOG) + 04/22/22 at Br anch Fsbg 2200, Testing Until Discontinu ed, Routine insulin Yes 25U 25 Units, Unive rs glargine 5-25 Subcutaneo ity o f (LANTUS 03:00: us, Q12H, [place] U-100) 00 First dose Medical injection on [facility] Branch 25 Units 04/22/22 at 2200, Until Discontinu ed, Routine glucagon Yes 1mg 1 mg, Univers (GLUCAGEN 5-25 Intramuscu ity of DIAGNOSTIC 02:55: lar, PRN, [place] KIT) 16 Starting Medical injection 1 on [facility] mg 04/22/22 at 2155, Until Discontinu ed, [place], Blood Glucose < or = 70 mg/dL and patient is unable to swallow or has mental changes. dextrose 50 Yes 25mL 25 mL, Univ ers % in water 5-25 Slow IV ity of (D50W) 02:55: Push, PRN, [place] injection 16 Starting Medica l 25 mL on [facility] 04/22/22 at 2155, Until Discontinu ed, [place], Blood Glucose < or = 70 mg/dL and patient is unable to swallow or has mental status changes. sucralfate 2021- No [id number] 1g Take 1 Univers 1 gram 5-25 06-25 tablet by ity of tablet 00:00: 04:59 mouth [place] 00 :00 before Medical meals and Branch at bedtime for 30 days. pantoprazol 2021- No [id number] 40mg Take 1 Univers e 40 mg EC 5-25 06-25 tablet by ity of tablet 00:00: 04:59 mouth 2 [place] 00 :00 (two) Medical times Branch daily for 30 days. metoprolol 2021- No [id number] 50mg Take 1 Univers tartrate 50 5-25 06-25 tablet by it y of mg tablet 00:00: 04:59 mouth 2 [place] 00 :[place] (two) Medical times Branch daily for 30 days. atorvastati 2021- No [id number] 40mg Take 1 Univers n (LIPITOR) 5-25 06-25 tablet by it y of 40 mg 00:00: 04:59 mouth at [place] tablet 00 :00 bedtime Medical for 30 Branch days. sucralfate 2021- No [id number] 1g Take 1 Univers 1 gram 5-25 06-25 tablet by ity of tablet 00:00: 04:59 mouth [place] 00 :00 before Medical meals and Branch at bedtime for 30 days. pantoprazol 2021- No [id number] 40mg Take 1 Univers e 40 mg EC 5-25 06-25 tablet by ity of tablet 00:00: 04:59 mouth 2 [place] 00 :00 (two) Medical times [place] daily for 30 days. metoprolol 2021- No [id number] 50mg Take 1 Univers tartrate 50 5-25 06-25 tablet by it y of mg tablet 00:00: 04:59 mouth 2 [place] 00 :[place] (two) Medical times [place] daily for 30 days. atorvastati 2021- No [id number] 40mg Take 1 Univers n (LIPITOR) 5-25 06-25 tablet by it y of 40 mg 00:00: 04:59 mouth at [place] tablet 00 :00 bedtime Medical for 30 Branch days. magnesium 2021- No [id number] 400mg Take 400 Univers oxide 420 5-25 06-10 mg by ity of mg Tab 00:00: 04:59 mouth [place] 00 :00 daily for Medical 15 days. [place] magnesium 2021- No [id number] 400mg Take 400 Univers oxide 420 5-25 06-10 mg by ity of mg Tab 00:00: 04:59 mouth [place] 00 :00 daily for Medical 15 days. [place] sucralfate Yes 1g 1 g, Oral, U nivers (CARAFATE) 5-24 AC+HS, ity of tablet 1 g 21:30: [place] 00 [place] [facility] 04/22/22 at Branch 1630, Until Discontinu ed, Routine morpHINE (4 2021- No [id number] 2mg 2 mg, Slow Univers mg/mL) 5-24 05-24 IV Push, ity of injection 2 16:15: 15:15 ONCE, 1 [place] 00 :[place] dose, On [facility] 04/22/22 at 1115, Routine SITagliptin Yes 50mg 50 mg, Univ ers (JANUVIA) 5-24 Oral, ity of tablet 50 14:00: DAILY, [place] mg 00 First dose Medical on [facility] 04/22/22 at 0900, Until Discontinu ed aspirin 0 Yes 81mg 81 mg, Univers chewable 5-24 Oral, ity of tablet 81 14:00: DAILY, [place] mg 00 First dose Medical on Thu [place] 04/22/22 at 0900, Until Discontinu ed, Routine metoprolol Yes 25mg 25 mg, Unive rs tartrate 5-24 Oral, BID, ity o f (LOPRESSOR) 13:00: First dose [place] tablet 25 00 on Thu Medical mg 04/22/22 at Branch 0800, Until Discontinu ed, Routine apixaban Yes 5mg 5 mg, Univers (ELIQUIS) 5-24 Oral, BID, ity of tablet 5 mg 13:00: First dose [place] 00 on [facility] 04/22/22 at Branch 0800, Until Discontinu ed, Routine
Indicatio ns: Non-Valvul ar Atrial Fibrillati on pantoprazol Yes 40mg 40 mg, Univ ers e 5-24 Oral, BID, ity of (PROTONIX) 13:00: First dose [place] EC tablet 00 on [facility] 40 mg 04/22/22 at Branch 0800, Until Discontinu ed, Routine D5W 0.9% 2021- No IV Univers NaCl (NS) 1 04-22 05-25 Infusion, it y of L + KCL 40 13:00: 02:32 at 200 [place] mEq 00 :18 mL/hr, Medical CONTINUOUS Branch , Starting on Thu04/22/22 at 0800, Until Thu04/22/22 at 2132, Routine ondansetron Yes 4mg 4 mg, Slow Univers (ZOFRAN 5-24 IV Push, ity of (PF)) 12:18: Q6HPRN, [place] injection 4 40 Nausea and Me dical [...] [place] dose [place] 00 [place] [facility] 04/21/22 at Branch 2100, Until Discontinu ed, Routine pantoprazol 2021- No [id number] 40mg 40 mg, Univers e 04-22 Slow IV ity of (PROTONIX) 01:00: 00:00 Push, [place] injection 00 :00 ONCE, 1 Medical 40 mg dose, On Branch [facility] 04/21/22 at 1999 NaCl 0.9% 2021- No [id number] 2000mL at 999 Univers (NS) bolus 04-22 mL/hr, ity of infusion 01:00: 23:59 2,000 mL, [place] as 2,000 mL 00 :00 IV Medical Infusion, Branch ONCE, 1 dose, On [facility] 04/21/22 at 2000, [place] ondansetron 2021- No [id number] 4mg 4 mg, Slow Univers (ZOFRAN 04-22 IV Push, ity of (PF)) 00:30: 23:26 ONCE, 1 [place] injection 4 00 :00 dose, On Medi mariam mg [facility] 04/21/22 at 1930, [place] morpHINE (4 2021- No [id number] 4mg 4 mg, Slow Univers mg/mL) 04-22 IV Push, ity of injection 4 00:30: 23:26 ONCE, 1 [place] mg 00 :00 dose, On Medical [facility] 04/21/22 at 1930, STAT D5W 0.45% 2021- No [id number] 1000mL at 200 Univers NaCl 04-22 mL/hr, ity of (1/2NS) IV 00:21: 11:50 1,000 mL, [place] infusion 22 :31 IV Medical 1,000 mL Infusion, [place] PRN - SEE INSTRUCTIO NS, Starting on Thu04/21/22 at 1921, Until Thu04/22/22 at 0650, [place] iopamidol 2021- No [id number] 120mL 120 mL, Univers (ISOVUE 04-21 Intravenou ity o f 370-500 mL) 22:15: 00:26 s, ONCE, 1 [place] injection 00 :00 dose, On Medica l 120 mL Mon Branch 04/21/22 at 1715, Routine esomeprazol 2020-11- No Take by Un ko e magnesium 11-30 mouth. ity o f (NEXIUM 14:20: 00:00 [place] ORAL) 21 :00 [facility] insulin 2020-11 Yes inject Univers glargine,hu 11-30 under the ity of .rec.anlog 13:40: skin. [place] (LANTUS [place]) [address] [place] [id number] insulin 2020-11 Yes inject Univers glargine,hu 11-30 under the ity of .rec.anlog 13:40: skin. [place] (TOUJEO [address] [place] [address] [facility]) sitagliptin 2020-11 Yes Take by Uni vers phosphate 11-30 mouth. ity of (JANUVIA 13:40: [place] ORAL) [address] [place] [address] atorvastati 2020-11 Yes Take by Uni vers n calcium 11-30 mouth. ity of (LIPITOR 13:40: [place] ORAL) [address] [place] [address] METOPROLOL 2020-11 Yes Take by [facility] ers TARTRATE 11-30 mouth. ity of ORAL 13:40: [address] aspirin 81 2020-11 Yes 81mg Take 81 mg U nivers mg chewable 11-30 by mouth ity of tablet 13:40: daily. [address] pantoprazol 2020-11 Yes [id number] 40mg Take 1 Univers e 40 mg EC 11-30 tablet by ity of tablet 00:00: mouth 2 [place] 00 (two) Medical times Branch daily. pantoprazol 2020-11- No [id number] 40mg Take 1 Univers e 40 mg EC 11-30 05-25 tablet by ity of tablet 00:00: 00:00 mouth 2 [place] 00 :00 (two) Medical times Branch daily. sucralfate Yes [id number] 1g Take 1 U nivers 1 gram 8-03 tablet by ity of tablet 00:00: mouth 00 before Medical meals and Branch at bedtime. ondansetron Yes [id number] 4mg Take 1 Univers (ZOFRAN 8-03 tablet by ity of ODT) 4 mg 00:00: mouth [place] disintegrat 00 every 8 Medic al ing tablet (eight) Branch hours as needed for Nausea and Vomiting (N/V). ondansetron 2021-0 Yes [id number] 4mg Take 1 Univers (ZOFRAN 8-03 tablet by ity of ODT) 4 mg 00:00: mouth [place] disintegrat 00 every 8 Medic al ing tablet (eight) Branch hours as needed for Nausea and Vomiting (N/V). ondansetron 2021-0 Yes [id number] 4mg Take 1 Univers (ZOFRAN 8-03 tablet by ity of ODT) 4 mg 00:00: mouth [place] disintegrat 00 every 8 Medic al ing tablet (eight) Branch hours as needed for Nausea and Vomiting (N/V). ondansetron 2021-0 Yes [id number] 4mg Take 1 Univers (ZOFRAN 8-03 tablet by ity of ODT) 4 mg 00:00: mouth [place] disintegrat 00 every 8 Medic al ing tablet (eight) Branch hours as needed for Nausea and Vomiting (N/V). ondansetron 2021-0 Yes [id number] 4mg Take 1 Univers (ZOFRAN 8-03 tablet by ity of ODT) 4 mg 00:00: mouth [place] disintegrat 00 every 8 Medic al ing tablet (eight) Branch hours as needed for Nausea and Vomiting (N/V). ondansetron 2021-0 Yes [id number] 4mg Take 1 Univers (ZOFRAN 8-03 tablet by ity of ODT) 4 mg 00:00: mouth [place] disintegrat 00 every 8 Medic al ing tablet (eight) Branch hours as needed for Nausea and Vomiting (N/V). ondansetron 2021-0 Yes [id number] 4mg Take 1 Univers (ZOFRAN 8-03 tablet by ity of ODT) 4 mg 00:00: mouth [place] disintegrat 00 every 8 Medic al ing tablet (eight) Branch hours as needed for Nausea and Vomiting (N/V). ondansetron 2021-0 Yes [id number] 4mg Take 1 Univers (ZOFRAN 8-03 tablet by ity of ODT) 4 mg 00:00: mouth [place] disintegrat 00 every 8 Medic al ing tablet (eight) Branch hours as needed for Nausea and Vomiting (N/V). ondansetron Yes [id number] 4mg Take 1 Univers (ZOFRAN 8-03 tablet by ity of ODT) 4 mg 00:00: mouth [place] disintegrat 00 every 8 Medic al ing tablet (eight) Branch hours as needed for Nausea and Vomiting (N/V). sucralfate 2022- No [id number] 1g Take 1 Univers 1 gram 8- 05-25 tablet by ity of tablet 00:00: 00:00 mouth [place] 00 :00 before Medical meals and Branch at bedtime. Vital Signs Vital Name Observation Time Observation Value Comments Source Systolic blood 2023-04-17 13:42:00 124 mm[Hg] Maisha Seybold - pressure External Diastolic blood 2023-04-17 13:42:00 72 mm[Hg] Tamara daly Seybold - pressure External Heart rate 2023-04-17 13:42:00 81 /min Maisha pedersenbold - External Body temperature 2023-04-17 13:42:00 37.11 Chen Maeve ey Seybold - External Respiratory rate 2023-04-17 13:42:00 18 /min Maeve pedersen Seybold - External Body height 2023-04-17 13:42:00 170.2 cm Maisha pedersenbold - External Body weight 2023-04-17 13:42:00 129.729 kg Maisha Cole eybold - External BMI 2023-04-17 13:42:00 44.79 kg/m2 Maisha pedersenbold - External Systolic blood 2023-04-08 13:05:00 106 mm[Hg] Maisha Goddardybold - pressure External Diastolic blood 2023-04-08 13:05:00 74 mm[Hg] Tamara daly Seybold - pressure External Heart rate 2023-04-08 13:05:00 84 /min Maisha pedersenbold - External Body temperature 2023-04-08 13:05:00 36.06 Chen Maeve ey Seybold - External Respiratory rate 2023-04-08 13:05:00 15 /min Maeve pedersen Seybold - External Body height 2023-04-08 13:05:00 170.2 cm Maisha Cole eybold - External Body weight 2023-04-08 13:05:00 129.275 kg Maisha Cole eybold - External BMI 2023-04-08 13:05:00 44.64 kg/m2 Maisha pedersenbold - External Oxygen saturation in 2023-04-08 13:05:00 90 /min Maisha Moy - Arterial blood by External Pulse oximetry Systolic blood 2023-04-02 13:42:00 128 mm[Hg] Maisha Seybold - pressure External Diastolic blood 2023-04-02 13:42:00 72 mm[Hg] Tamara y Seybold - pressure External Heart rate 2023-04-02 13:42:00 82 /min Maisha Cole eybold - External Body temperature 2023-04-02 13:42:00 36.44 Chen Maeve pedersen Seybold - External Respiratory rate 2023-04-02 13:42:00 18 /min Maeve pedersen Seybold - External Body height 2023-04-02 13:42:00 170.2 cm Maisha Cole eybold - External Body weight 2023-04-02 13:42:00 127.914 kg Maisha Cole eybold - External BMI 2023-04-02 13:42:00 44.17 kg/m2 Maisha Cole eybold - External Body temperature 2022-11-12 18:00:00 37 Chen Univ ersity of [facility] Systolic blood 2022-11-12 17:00:00 113 mm[Hg] Univer sity of pressure [facility] Diastolic blood 2022-11-12 17:00:00 67 mm[Hg] Unive rsity of pressure [facility] Heart rate 2022-11-12 17:00:00 91 /min Universi ty of [facility] Respiratory rate 2022-11-12 17:00:00 25 /[facility] in 2022-11-12 17:00:00 93 /min University of Arterial blood by [facility] Pulse oximetry Branch Body weight 2022-11-12 09:42:00 117.981 kg Universi ty [facility] BMI 2022-11-12 09:42:00 40.74 kg/m2 Universi ty [facility] Body height 2022-11-10 06:00:00 170.2 cm Universi ty of [place] [facility] Systolic blood 2022-11-07 17:53:00 106 mm[Hg] Univer sity of pressure [place] [facility] Diastolic blood 2022-11-07 17:53:00 70 mm[Hg] Unive rsity of pressure [place] [facility] Heart rate 2022-11-07 17:53:00 102 /min Universi ty of [place] [facility] Body temperature 2022-11-07 17:53:00 37.22 Chen Univ ersity of [place] [facility] Respiratory rate 2022-11-07 17:53:00 22 /min Univ ersity of [place] [facility] Oxygen saturation in 2022-11-07 17:53:00 95 /min University of Arterial blood by [place] [employer] mariam Pulse oximetry Branch Body height 2022-11-06 11:30:00 170.2 cm Universi ty of [place] [facility] Body weight 2022-11-06 11:30:00 116.5 kg Universi ty of [place] [facility] BMI 2022-11-06 11:30:00 40.23 kg/m2 Universi ty of [place] [facility] Systolic blood 2022-09-04 17:00:00 129 mm[Hg] Univer sity of pressure [place] [facility] Diastolic blood 2022-09-04 17:00:00 84 mm[Hg] Unive rsity of pressure [place] [facility] Heart rate 2022-09-04 17:00:00 85 /min Universi ty of [place] [facility] Oxygen saturation in 2022-09-04 17:00:00 94 /min University of Arterial blood by [place] [employer] mariam Pulse oximetry Branch Body temperature 2022-09-04 16:21:00 36.33 Chen Univ ersity of [place] [facility] Respiratory rate 2022-09-04 16:21:00 18 /min Univ ersity of [place] [facility] Body height 2022-09-03 22:04:00 170.2 cm Universi ty of [place] [facility] Body weight 2022-09-03 22:04:00 122.834 kg Universi ty of [place] [facility] BMI 2022-09-03 22:04:00 42.41 kg/m2 Universi ty of [place] [facility] Systolic blood 2022-04-23 18:00:00 109 mm[Hg] Univer sity of pressure [place] [facility] Diastolic blood 2022-04-23 18:00:00 56 mm[Hg] Unive rsity of pressure [facility] Heart rate 2022-04-23 18:00:00 85 /min Universi ty of [facility] Respiratory rate 2022-04-23 18:00:00 20 /min Univ ersity of [facility] Oxygen saturation in 2022-04-23 17:00:00 97 /min University of Arterial blood by [facility] Pulse oximetry Branch Body temperature 2022-04-23 16:30:00 36.72 Chen Univ ersity of [facility] Body height 2022-04-21 22:46:00 170.2 cm Universi ty of [facility] Body weight 2022-04-21 22:46:00 113.399 kg Universi ty [facility] BMI 2022-04-21 22:46:00 39.16 kg/m2 Universi ty [facility] Systolic blood 2021-09-30 18:36:00 125 mm[Hg] Univer sity of pressure [facility] Diastolic blood 2021-09-30 18:36:00 81 mm[Hg] Unive rsity of pressure [facility] Heart rate 2021-09-30 18:36:00 120 /min Universi ty of [facility] Body temperature 2021-09-30 18:36:00 36.61 [facility] Body height 2021-09-30 18:36:00 170.2 cm Universi ty of [place] [facility] [place] Body weight 2021-09-30 18:36:00 99.066 kg Universi ty [facility] BMI 2021-09-30 18:36:00 34.21 kg/m2 Universi ty [facility] Oxygen saturation in 2021-09-30 18:36:00 93 /min University of Arterial blood by [facility] Pulse oximetry Branch Procedures Procedure Date / Time Performing Clinician Source Performed REAGENT STRIP/BLOOD 2023-04-17 00:00:00 Outside, Celine Moy - GLUCOSE External TELERETINAL DIABETIC 2023-04-02 15:16:00 John Sequeira - SCREENING Farshad External POCT GLUCOSE (AUTOMATED) 2022-11-12 17:08:00 [facility] 2022-11-12 13:30:00 Cholo Love [facility] FERRITIN SERUM 2022-11-12 09:53:00 Kate [facility] HEPATIC FUNCTION PANEL 2022-11-12 09:53:00 Kate [facility] ([id number]) (ALB,T.PRO,BILI Medical Branch T,BU/BC,ALT,AST,ALK PHOS) BASIC METABOLIC PANEL 2022-11-12 09:53:00 Kate [facility] (NA, K, CL, CO2, GLUCOSE, Medica l Branch BUN, CREATININE, CA) POCT GLUCOSE (AUTOMATED) 2022-11-12 02:07:00 Kate [facility] POCT GLUCOSE (AUTOMATED) 2022-11-11 21:59:00 Kate [facility] POCT GLUCOSE (AUTOMATED) 2022-11-11 17:08:00 Kate [facility] POCT GLUCOSE (AUTOMATED) 2022-11-11 13:19:00 Kate [facility] MAGNESIUM 2022-11-11 10:21:00 Kate [facility] HEPATIC FUNCTION PANEL 2022-11-11 10:21:00 Kate [facility] ([id number]) (ALB,T.PRO,BILI Medical [place] T,BU/BC,ALT,AST,ALK PHOS) BASIC METABOLIC PANEL 2022-11-11 10:21:00 [facility] ([facility], K, CL, CO2, GLUCOSE, Medica l Branch BUN, CREATININE, CA) CBC WITH DIFF 2022-11-11 10:21:00 [facility] POCT GLUCOSE (AUTOMATED) 2022-11-11 02:37:00 Kate [facility] POCT GLUCOSE (AUTOMATED) 2022-11-10 22:18:00 Cholo Love [facility] US ABDOMEN LIMITED 2022-11-10 21:00:00 Kate [facility] HEPATITIS B SURFACE 2022-11-10 19:[facility] HEPATITIS B SURFACE 2022-11-10 19:01:00 Kate [facility] ANTIGEN [facility] HCV ANTIBODY 2022-11-10 [facility]10 [facility] POCT GLUCOSE (AUTOMATED) 2022-11-10 17:06:00 Natasha Dawna [facility] MAGNESIUM 2022-11-10 15:00[facility] COMP. METABOLIC PANEL 2022-11-10 15:00:00 [facility] ([id number] POCT GLUCOSE (AUTOMATED) 2022-11-10 13:14:00 Natasha [facility] URINALYSIS 2022-11-10 03:56:00 Murali Zafar [facility] URINE CULTURE 2022-11-10 03:56:00 Murali Zafar [facility] AC PANEL 20 + LACTIC ACID 2022-11-10 03:47:00 [facility] 2022-11-10 03:46:00 Murali Zafar [facility] hospital TROPONIN I 2022-11-10 03:46:00 Murali Zafar [facility] hospital COMP. METABOLIC PANEL 2022-11-10 03:46:00 Murali Zafar [facility] ([id number]) [facility] CBC WITH DIFF 2022-11-10 03:46:00 Murali Zafar [facility] acute hospital N-TERMINAL PRO-BNP 2022-11-10 03:46:00 Murali Zafar [facility] HB ECG ROUTINE & RHYTHM 2022-11-10 03:16:17 Murali Zafar [facility] POCT GLUCOSE (AUTOMATED) 2022-11-10 03:09:00 Murali Zafar [facility] POCT GLUCOSE (AUTOMATED) 2022-11-10 02:59:00 Murali Zafar [facility] CONSENT/REFUSAL FOR 2022-11-10 02:39:20 Doctor Unasslili [facility] DIAGNOSIS AND TREATMENT [place] [facility] POCT GLUCOSE (AUTOMATED) 2022-11-07 22:01:00 Jon Francisco [facility] POCT GLUCOSE (AUTOMATED) 2022-11-07 17:28:00 Jon Francisco [facility] POCT GLUCOSE (AUTOMATED) 2022-11-07 14:16:00 Jon Francisco [facility] PHOSPHORUS 2022-11-07 11:33:00 Mel [facility] BETA HYDROXY-BUTYRATE 2022-11-07 11:33:00 Mel [facility] BASIC METABOLIC PANEL 2022-11-07 11:33:00 Dar Leal [facility] (NA, K, CL, CO2, GLUCOSE, Medica l Branch BUN, CREATININE, CA) POCT GLUCOSE (AUTOMATED) 2022-11-07 03:32:00 Jon Francisco [facility] POCT GLUCOSE (AUTOMATED) 2022-11-06 22:56:00 Gerson Palomino [facility] BETA HYDROXY-BUTYRATE 2022-11-06 20:25:00 Jose Miguel Tony [facility] BASIC METABOLIC PANEL 2022-11-06 20:25:00 Monae Pascual [facility] (NA, K, CL, CO2, GLUCOSE, Medica l Branch BUN, CREATININE, CA) POCT GLUCOSE (AUTOMATED) 2022-11-06 16:15:00 Gerson Palomino [facility] BASIC METABOLIC PANEL 2022-11-06 11:53:00 Monae Pascual [facility] (NA, K, CL, CO2, GLUCOSE, Medica l Branch BUN, CREATININE, CA) MRSA / MSSA SCREEN BY 2022-11-06 11:53:00 Monae Pascual [facility] ([facility]) 2022-11-06 11:26:00 Nagan, Gerson [facility] POCT GLUCOSE (AUTOMATED) 2022-11-06 09:26:00 Murali Zafar [facility] POCT GLUCOSE(AGE >30DAYS) 2022-11-06 08:15:00 [facility] 2022-11-06 07:25:00 Murali Zafar [facility] MAGNESIUM 2022-11-06 07:25:00 Murali Zafar [facility] acute hospital OSMOLALITY, SERUM OR 2022-11-06 07:25:00 Murali Zafar [facility] PLASMA [facility] BETA HYDROXY-BUTYRATE 2022-11-06 07:25:00 Murali Zafar [facility] BASIC METABOLIC PANEL 2022-11-06 07:25:00 Murali Zafar [facility] (NA, K, CL, CO2, GLUCOSE, Medica l Branch BUN, CREATININE, CA) LIPID PANEL ([id number])(TOTAL 2022-11-06 07:25:00 Monae Pascual [facility] CHOLESTEROL, [facility] TRIGLYCERIDES, HDL) GLYCOSYLATED HEMOGLOBIN 2022-11-06 07:25:00 Murali Zafar [facility] (A1C) [facility] POCT GLUCOSE(AGE >30DAYS) 2022-11-06 06:58:00 Murali Zafar [facility] POCT GLUCOSE (AUTOMATED) 2022-11-06 06:55:00 Murali Zafar [facility] CRITICAL CARE 2022-11-06 06:50:18 Murali Zafar [facility] AC PANEL 20 + LACTIC ACID 2022-11-06 06:14:00 Murali Zafar [facility] CT ABDOMEN PELVIS W 2022-11-06 06:05:19 Murali Zafar [facility] CONTRAST [facility] CT CHEST PULMONARY 2022-11-06 06:05:19 Murali Zafar [facility] ANGIOGRAM [facility] BLOOD CULTURE SCREEN 2022-11-06 04:51:00 Murali Zafar [facility] LACTIC ACID WHOLE BLOOD 2022-11-06 04:50:00 Murali Zafar [facility] XR CHEST 1 VW 2022-11-06 04:21:53 Murali Zafar [facility] Branch LIPASE 2022-11-06 04:08:00 Andrade [facility] TROPONIN I 2022-11-06 04:08:00 Murali Zafar [facility] COMP. METABOLIC PANEL 2022-11-06 04:08:00 Murali Zafar [facility] ([id number]) Medical Branch CBC WITH DIFF 2022-11-06 04:08:00 Andrade [facility] URINALYSIS 2022-11-06 04:08:00 Andrade [facility] URINE CULTURE 2022-11-06 04:08:00 Andrade [facility] RAPID INFLUENZA A/B 2022-11-06 04:08:00 Murali Zafar [facility] N-TERMINAL PRO-BNP 2022-11-06 04:08:00 Murali Zafar [facility] COVID-19 (ID NOW RAPID 2022-11-06 04:08:00 Murali Zafar [facility] TESTING) Medical [place] LAB ONLY COVID 2022-11-06 04:08:00 Andrade [facility] CONSENT/REFUSAL FOR 2022-11-06 03:03:01 Doctor Unassigned, [facility] DIAGNOSIS AND TREATMENT [place] [facility] HOSPITAL ADMISSION 2022-11-05 06:01:00 Doctor Unasslili, [facility] POCT GLUCOSE (AUTOMATED) 2022-09-04 16:52:00 Sachin Mcallister [facility] US GALL BLADDER 2022-09-04 15:00:00 Jaxon [facility] POCT GLUCOSE (AUTOMATED) 2022-09-04 12:51:00 Sachin Mcallister [facility] TROPONIN I 2022-09-04 11:06:00 Jaxon Sutton [facility] COMP. METABOLIC PANEL 2022-09-04 11:06:00 Jaxon Sutton [facility] ([id number]) [facility] ACUTE CARE VENOUS BLOOD 2022-09-04 11:06:00 William, Adnan [facility] CBC WITH DIFF 2022-09-04 11:06:00 William [facility] N-TERMINAL PRO-BNP 2022-09-04 11:06:00 William kristin [facility] PHOSPHORUS 2022-09-04 05:55:00 William [facility] URIC ACID 2022-09-04 05:55:00 William [facility] MAGNESIUM 2022-09-04 05:55:00 William [facility] TROPONIN I 2022-09-04 05:55:00 William [facility] THYROID STIMULATING 2022-09-04 05:55:00 William [facility] HORMONE [facility] LIPID PANEL ([id number])(TOTAL 2022-09-04 05:55:00 William kristin [facility] CHOLESTEROL, [facility] TRIGLYCERIDES, HDL) SEDIMENTATION RATE 2022-09-04 05:55:00 William kristin [facility] PROTHROMBIN TIME / INR 2022-09-04 05:55:00 [facility] [facility] HEPATITIS B SURFACE 2022-09-04 05:55:00 [facility] ANTIBODY [facility] HEPATITIS B SURFACE 2022-09-04 05:55:00 [facility] ANTIGEN [facility] HCV ANTIBODY 2022-09-04 05:55:00 [facility] HAV ANTIBODY (IGG AND 2022-09-04 05:55:00 [facility] IGM) [facility] PROCALCITONIN 2022-09-04 05:55:00 [facility] POCT GLUCOSE (AUTOMATED) 2022-09-04 05:31:00 Sachin Mcallister [facility] XR CHEST 1 VW 2022-09-03 22:42:00 Andrade Murali [facility] acute hospital LIPASE 2022-09-03 22:26:00 Andrade [facility] TROPONIN I 2022-09-03 22:26:00 Murali Zafar [facility] acute hospital COMP. METABOLIC PANEL 2022-09-03 22:26:00 Andrade Murali [facility] ([id number]) Medical [place] CBC WITH DIFF 2022-09-03 22:26:00 Andrade [facility] GLYCOSYLATED HEMOGLOBIN 2022-09-03 22:26:00 Jaxon Sutton [facility] (A1C) Medical Branch ACTIVATED PARTIAL 2022-09-03 22:26:00 And[facility] THRMPLAS KAR [facility] N-TERMINAL PRO-BNP 2022-09-03 22:26:00 Murali Zafar [facility] NOTICE OF PRIVACY 2022-09-03 21:52:55 Doctor Unassigned, [facility] PRACTICES [place] [facility] CONSENT/REFUSAL FOR 2022-09-03 21:52:24 Doctor Unassigned, [facility] DIAGNOSIS AND TREATMENT [place] [facility] POCT GLUCOSE (AUTOMATED) 2022-04-23 18:58:00 Cholo Love [facility] POCT GLUCOSE (AUTOMATED) 2022-04-23 15:35:00 Cholo Love [facility] POCT GLUCOSE (AUTOMATED) 2022-04-23 12:41:00 Cholo Love [facility] POCT GLUCOSE (AUTOMATED) 2022-04-23 11:33:00 Cholo Love [facility] MAGNESIUM 2022-04-23 09:33:00 aSchin Mcallister [facility] acute hospital BASIC METABOLIC PANEL 2022-04-23 09:33:00 Sachin Mcallister [facility] (NA, K, CL, CO2, GLUCOSE, Medica l Branch BUN, CREATININE, CA) POCT GLUCOSE (AUTOMATED) 2022-04-23 09:33:00 Cholo Love [facility] POCT GLUCOSE (AUTOMATED) 2022-04-23 07:17:00 Cholo Love [facility] POCT GLUCOSE (AUTOMATED) 2022-04-23 05:25:00 Cholo Love Uni [facility] POCT GLUCOSE (AUTOMATED) 2022-04-23 04:07:00 Cholo Love Uni versity of [facility] POCT GLUCOSE (AUTOMATED) 2022-04-23 03:09:00 Cholo Love Uni versity of [facility] Branch POCT GLUCOSE (AUTOMATED) 2022-04-23 02:22:00 Cholo Love Uni versity of [facility] BASIC METABOLIC PANEL 2022-04-23 01:15:00 Annette Holland [facility] (NA, K, CL, CO2, GLUCOSE, Medica l Branch BUN, CREATININE, CA) POCT GLUCOSE (AUTOMATED) 2022-04-23 01:15:00 Cholo Love Uni versity of [facility] POCT GLUCOSE (AUTOMATED) 2022-04-23 00:02:00 Cholo Love Uni versity of [facility] POCT GLUCOSE (AUTOMATED) 2022-04-22 23:01:00 Sachin Mcallister versity of [facility] POCT GLUCOSE (AUTOMATED) 2022-04-22 22:05:00 Sachin Mcallister versity of [facility] BASIC METABOLIC PANEL 2022-04-22 21:05:00 Annette Holland [facility] (NA, K, CL, CO2, GLUCOSE, Medica l Branch BUN, CREATININE, CA) POCT GLUCOSE (AUTOMATED) 2022-04-22 21:02:00 Sachin Mcallister Uni versity of [facility] POCT GLUCOSE (AUTOMATED) 2022-04-22 19:45:00 Sachin Mcallister versity of [facility] POCT GLUCOSE (AUTOMATED) 2022-04-22 18:42:00 Sachin Mcallister versity of [facility] POCT GLUCOSE (AUTOMATED) 2022-04-22 17:22:00 Cholo Love Uni versity of [facility] POCT GLUCOSE (AUTOMATED) 2022-04-22 16:05:00 Cholo Love Uni versity of [facility] TROPONIN I 2022-04-22 15:33:00 Sachin Mcallister o f [facility] BASIC METABOLIC PANEL 2022-04-22 15:33:00 Annette Holland [facility] (NA, K, CL, CO2, GLUCOSE, Medica l Branch BUN, CREATININE, CA) CBC WITH DIFF 2022-04-22 15:33:00 Cholo Love o f [facility] POCT GLUCOSE (AUTOMATED) 2022-04-22 14:25:00 [facility] 2022-04-22 13:39:00 Kate Cholo Uni versity of [facility] POCT GLUCOSE (AUTOMATED) 2022-04-22 12:26:00 Kate Cholo Uni versity [facility] POCT GLUCOSE (AUTOMATED) 2022-04-22 11:30:00 [facility] BASIC METABOLIC PANEL 2022-04-22 10:51:00 Annette Holland [facility] (NA, K, CL, CO2, GLUCOSE, Medica l Branch BUN, CREATININE, CA) POCT GLUCOSE (AUTOMATED) 2022-04-22 10:47:00 [facility]SE (AUTOMATED) 2022-04-22 10:44:00 Kate [facility]SE (AUTOMATED) 2022-04-22 09:32:00 Kate Cholo Uni versity [facility] POCT GLUCOSE (AUTOMATED) 2022-04-22 08:34:00 Kate Cholo Uni [facility] BASIC METABOLIC PANEL 2022-04-22 07:39:00 Annette Holland [facility] (NA, K, CL, CO2, GLUCOSE, Medica l Branch BUN, CREATININE, CA) POCT GLUCOSE (AUTOMATED) 2022-04-22 07:33:00 Kate Cholo Uni versity [facility] POCT GLUCOSE (AUTOMATED) 2022-04-22 06:29:00 Kate Cholo Uni versity of [facility] BASIC METABOLIC PANEL 2022-04-22 05:30:00 Annette Holland [facility] (NA, K, CL, CO2, GLUCOSE, Medica l Branch BUN, CREATININE, CA) POCT GLUCOSE (AUTOMATED) 2022-04-22 05:29:00 Kate Cholo Uni versity [facility] POCT GLUCOSE (AUTOMATED) 2022-04-22 04:32:00 Cholo Love [facility] POCT GLUCOSE (AUTOMATED) 2022-04-22 03:40:00 Cholo Love [facility] MRSA / MSSA SCREEN BY 2022-04-22 03:30:00 [facility] LACTIC ACID WHOLE BLOOD 2022-04-22 03:09:00 [facility] 2022-04-22 02:14:00 Cholo Love [facility] COVID-19 (ID NOW RAPID 2022-04-22 01:25:00 Annette Holland [facility] TESTING) Medical [place] LAB ONLY COVID 2022-04-22 01:25:00 [facility] URINALYSIS 2022-04-22 01:23:00 [facility] BASIC METABOLIC PANEL 2022-04-22 01:14:00 Annette Holland [facility] (NA, K, CL, CO2, GLUCOSE, Medica l Branch BUN, CREATININE, CA) OSMOLALITY, SERUM OR 2022-04-22 01:11:00 Annette Holland [facility] PLASMA [facility] BETA HYDROXY-BUTYRATE 2022-04-22 01:11:00 Annette Holland [facility] POCT GLUCOSE (AUTOMATED) 2022-04-22 01:08:00 Cholo Love [facility] CT ABDOMEN PELVIS W 2022-04-22 00:25:33 Annette Holland [facility] CONTRAST [facility] XR CHEST 1 VW 2022-04-22 00:18:00 [facility] AC PANEL 21 + LACTIC ACID 2022-04-22 00:04:00 [facility] 2022-04-21 23:11:00 Annette Holland [facility] PHOSPHORUS 2022-04-21 23:05:00 [facility] LIPASE 2022-04-21 23:05:00 Annette Holland [facility] MAGNESIUM 2022-04-21 23:05:00 Annette Holland [facility] TROPONIN I 2022-04-21 23:05:00 Annette Holland [facility] COMP. METABOLIC PANEL 2022-04-21 23:05:00 Annette Holland [facility] ([id number]) [facility] CBC WITH DIFF 2022-04-21 23:05:00 Annette Holland [facility] GLYCOSYLATED HEMOGLOBIN 2022-04-21 23:05:00 Annette Holland [facility] (A1C) [facility] PROTHROMBIN TIME / INR 2022-04-21 23:05:00 Annette Holland [facility] N-TERMINAL PRO-BNP 2022-04-21 23:05:00 Annette Holland [facility] HB ECG ROUTINE & RHYTHM 2022-04-21 22:57:52 Annette Holland [facility] CONSENT/REFUSAL FOR 2022-04-21 22:36:06 Doctor Unajeimy, [facility] DIAGNOSIS AND TREATMENT [place] [facility] NOTICE OF PRIVACY 2022-04-21 22:34:32 Doctor Unajeimy, [facility] PRACTICES [place] [facility] Encounters Start End Encounter Admission Attending Care Care Encounter Source Date/Time Date/Time Type Type Clinicians Facility Department ID 2023-11-10 2023-11-10 Outpatient MAISHA MORENO [id number] Maisha 15:15:00 15:15:00 WENDY Seybol d 2023-09-24 2023-09-24 Outpatient MAISHA SEQUEIRA [id number] Maisha 00:00:00 00:00:00 JOHN Seybol d 2023-08-07 2023-08-07 Outpatient MAISHA MORENO [id number] Maisha 15:15:00 15:15:00 WENDY Seybol d 2023-07-31 2023-07-31 Outpatient MAISHA MORENO [id number] Maisha 16:45:00 16:45:00 WENDY Seybol d 2023-06-26 2023-06-26 Outpatient LYUBOV FERNÁNDEZ MAISHA MAISHA [id number] Maisha 14:40:00 14:40:00 Seybol d 2023-05-14 2023-05-14 Outpatient CRISTINO MAISHA EVANS [id number] Maisha 00:00:00 00:00:00 MD TORY Seybol d 2023-04-23 2023-04-23 Outpatient ROHINI CHAMBERS MAISHA EVANS [id number] Maisha 16:00:00 16:00:00 Seybol d 2023-04-23 2023-04-23 Outpatient BAMIDELE MAISHA EVANS [id number] Maisha 13:30:00 13:30:00 JOHN Seybol d 2023-04-21 2023-04-21 Outpatient YAYALaithMAISHA [id number] Maisha 08:00:00 08:00:00 MARCELLE Seybol d 2023-04-17 2023-04-17 Outpatient JOSHMAISHA [id number] Maisha 09:15:00 09:15:00 WENDY Seybol d 2023-04-16 2023-04-16 Outpatient MYEDIS MAISHA EVANS [id number] Maisha 00:00:00 00:00:00 MD TORY Seybol d 2023-04-14 2023-04-14 Outpatient AUDRAMAISHA [id number] Maisha 00:00:00 00:00:00 MARCELLE Seybol d 2023-04-10 2023-04-10 Outpatient HUNDLMAISHA [id number] Maisha 00:00:00 00:00:00 MARCELLE Seybol d 2023-04-09 2023-04-09 Outpatient HUNDL, MAISHA EVANS [id number] Maisha 00:00:00 00:00:00 MARCELLE Seybol d 2023-04-08 2023-04-08 Outpatient HUNDLMAISHA [id number] Maisha 08:00:00 08:00:00 MARCELLE Seybol d 2023-04-08 2023-04-08 Outpatient GROUP, MAISHA EVANS [id number] Maisha 00:00:00 00:00:00 MAISHA Seybol d 2023-04-08 2023-04-08 Outpatient JOSH MAISHA EVANS [id number] Maisha 00:00:00 00:00:00 WENDY Seybol d 2023-04-08 2023-04-08 Outpatient RADHA GAMINO MAISHA EVANS [id number] Maisha 00:00:00 00:00:00 Seybol d 2023-04-07 2023-04-07 Outpatient MIKATyreseMAISHA [id number] Maisha 00:00:00 00:00:00 JOHN Seybol d 2023-04-02 2023-04-02 Outpatient LAB47 MAISHA EVANS [id number] Maisha 10:20:00 10:20:00 Seybol d 2023-04-02 2023-04-02 Outpatient MIKATyrese MAISHA EVANS [id number] Maisha 09:00:00 09:00:00 JOHN Seybol d 2023-04-02 2023-04-02 Outpatient MERI MAISHA EVANS [id number] Maisha 00:00:00 00:00:00 AKBAR Seybol d 2022-11-13 2022-11-13 Transition TIFFANIE Botello [id number] Univers 00:00:00 00:00:00 of Care Florence SANCHEZ 350.1.13.10 i ty [place] [id number] [facility] 403 Branch 2022-11-09 2022-11-12 Inpatient X KATE MSREGINO JOSE ENRIQUE [id number] Univers 21:02:00 15:36:00 CHOLO ity [facility] 2022-11-09 2022-11-12 Hospital Murali Zafar [facility] 1.2.840.1 [id number] Univers 21:02:00 15:36:00 Encounter Dawna Kaur 350.1.13.10 ity Cholo Love 4.2.7.2.686 [facility] [id number] [facility] 080 Branch 2022-11-12 2022-11-12 Telephone WANDA Vu 1.2.840.114 [id number] Univers 00:00:00 00:00:00 Nata Rae ALYSHA 350.1.13.10 i ty of [facility] 4.2.7.2.686 Alex as [phone] [facility] 025 Branch 2022-11-10 2022-11-10 Transition TIFFANIE Botello 1.2.840.114 [id number] Univers 00:00:00 00:00:00 of Care [place] SANCHEZ 350.1.13.10 i ty [place] [id number] [facility] 403 Branch 2022-11-05 2022-11-07 Inpatient X MARYAM [facility] [id number] Univers 21:27:00 17:37:00 [facility] 2022-11-05 2022-11-07 Hospital Murali Zafar 1.2.840.1 [id number] Univers 21:27:00 17:37:00 En[facility] [place] [id number] [facility] 096 Branch 2022-10-31 2022-10-31 Outpatient [facility] [id number] Ron 13:11:41 13:11:41 [address] 2022-09-24 2022-09-24 Outpatient Lukasz Bejarano [facility] ENDO LA0 [id number] [facility] 08:23:00 08:23:00 28 [facility] 2022-09-08 2022-09-08 Outpatient R WILLIAM [facility] [id number] Univers 00:00:00 00:00:00 JAXON [facility] 2022-09-03 2022-09-04 Outpatient X CARLOS [facility] [id number] Univers 17:08:00 13:45:00 JAI [facility] 2022-09-03 2022-09-04 Emergency Murali Zafar [facility] 1.2.840. 114 [id number] Univers 17:08:00 13:45:00 Sachin Mcallister 350.1.13.10 ity of Jai Gonzalez 4.2.7.2.686 [facility] [id number] [facility] 080 Branch 2022-08-20 2022-08-20 Outpatient SIRI Franklin CPUL [id number] [facility] 19:28:00 19:28:00 Sang 80 [facility] 2022-04-24 2022-04-24 Transition TIFFANIE Botello 1.2.840.114 [id number] Univers 00:00:00 00:00:00 of Care [place] SANCHEZ 350.1.13.10 i [place] [id number] [facility] 403 Branch 2022-04-21 2022-04-23 Inpatient X ESVIN [facility] [id number] Univers 17:49:00 15:15:00 SACHIN mcknight [facility] 2022-04-21 2022-04-23 Hospital Annette Holland [facility] 1.2.840. 114 [id number] Univers 17:49:00 15:15:00 Encounter Cholo Love 350.1.13.10 ity of Sachin Mcallister 4.2.7.2.686 [facility] [id number] [facility] 080 [place] 2021-12-24 2021-12-24 Outpatient COH COH PIJFIFF DTZ COH 00:00:00 00:00:00 -[id number] 2021-09-30 2021-09-30 Outpatient Butch RUBIN [facility] [id number] Univers 14:00:00 14:00:00 GERSON mcknight [facility] 2021-09-30 2021-09-30 Office Dustin Cervantes [facility] 1.2.8 40.114 [id number] Univers 13:25:55 13:55:55 Visit Gerson Rubin 350.1.13 .10 [place] [id number] [place] emerson [address] 2021-09-30 2021-09-30 Orders Doctor MUÑOZ 1.2.840.114 [id number] Univers 00:00:00 00:00:00 Only Unassigned, ALYSHA 350.1.13.10 ity of [place] [facility] 4.2.7.2.686 Alex as [phone] [facility] 009 [place] 2021-08-09 2021-08-09 Orders Doctor WANDA 1.2.840.114 [id number] Univers 00:00:00 00:00:00 Only Unassigned, ALYSHA 350.1.13.10 ity of [place] HOSPITAL 4.2.7.2.686 Alex as [id number] [facility] 009 Branch 2021-07-02 2021-07-02 Emergency Taylor, [facility] 1.2.237.145 [id number] Univers 15:02:00 21:52:00 Marlene S Federico 350.1.13.10 i ty [place] [id number] [place] [id number] [place] 2021-07-02 2021-07-02 Emergency X [facility] ERT [id number] Univers 14:36:00 14:36:00 [facility] Results Test Description Test Time Test Comments Results Result Comments Source REAGENT STRIP/BLOOD GLUCOSE 2023-04-17 00:00:00 Test Item Value Reference Range Interpretation Comme nts BLOOD SUGAR (test code = 151521) 263 mg/dL 65-99 A Lab Interpretation (test code = 83242-1) Abnormal Maisha Seybold - ExternalTELERETINAL DIABETIC [id number] 15:16:00 Test Item Value Reference Range Interpretation Comments IMP (test code = IMP) 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 PlanRepeat diabetic retinopathy screening in 1 year Lab Interpretation Abnormal (test code = 79049-1) Maisha Seybold - ExternalPOCT GLUCOSE (AUTOMATED)2022-11-12 17:36:05 Test Item Value Reference Range Interpretation Comments POCT GLU (test code = 4400624176) 186 mg/dL 70-110 H Lab Interpretation (test code = Abnormal 05333-6) [facility] 14:01:05 Test Item Value Reference Range Interpretation Comments POCT GLU (test code = 6711860126) 143 mg/dL 70-110 H Lab Interpretation (test code = Abnormal 84105-1) [facility]12 02:11:38 Test Item Value Reference Range Interpretation Comments POCT GLU (test code = 4736779441) 185 mg/dL 70-110 H Lab Interpretation (test code = Abnormal 70937-3) General acute hospital GLUCOSE (AUTOMATED)2022-11-11 22:21:02 Test Item Value Reference Range Interpretation Comments POCT GLU (test code = 8451378022) 153 mg/dL 70-110 H Lab Interpretation (test code = Abnormal 11489-9) [facility]2022-[facility]-11 17:34:44 Test Item Value Reference Range Interpretation Comments POCT GLU (test code = 7357744212) 158 mg/dL 70-110 H Lab Interpretation (test code = Abnormal 10691-3) General acute hospital GLUCOSE (AUTOMATED)2022-11-11 13:54:40 Test Item Value Reference Range Interpretation Comments POCT GLU (test code = 7559659164) 145 mg/dL 70-110 H Lab Interpretation (test code = Abnormal 44777-6) [facility]2022-[facility]-11 02:46:38 Test Item Value Reference Range Interpretation Comments POCT GLU (test code = 9316581817) 230 mg/dL 70-110 H Lab Interpretation (test code = Abnormal 73605-5) [facility]2022-11-10 22:41:53 Test Item Value Reference Range Interpretation Comments POCT GLU (test code = 1444733602) 161 mg/dL 70-110 H Lab Interpretation (test code = Abnormal 34066-2) [facility]10 22:09:00 Test Item Value Reference Range Interpretation Comments POCT GLU (test code = 5461567394) 140 mg/dL 70-110 H Lab Interpretation (test code = Abnormal 02543-9) [facility]2022-11-10 14:40:30 Test Item Value Reference Range Interpretation Comments POCT GLU (test code = 4247115128) 140 mg/dL 70-110 H Lab Interpretation (test code = Abnormal 88300-1) [facility]2022-11-10 13:39:06 Test Item Value Reference Range Interpretation Comments POCT GLU (test code = 5180144913) 129 mg/dL 70-110 H Lab Interpretation (test code = Abnormal 46091-9) General acute hospital GLUCOSE (AUTOMATED)2022-11-10 03:12:17 Test Item Value Reference Range Interpretation Comments POCT GLU (test code = 9740703173) 142 mg/dL 70-110 H Lab Interpretation (test code = Abnormal 14353-7) General acute hospital GLUCOSE (AUTOMATED)2022-11-07 22:01:53 Test Item Value Reference Range Interpretation Comments POCT GLU (test code = 7265977228) 150 mg/dL 70-110 H Lab Interpretation (test code = Abnormal 92527-6) General acute hospital GLUCOSE (AUTOMATED)2022-11-07 17:30:01 Test Item Value Reference Range Interpretation Comments POCT GLU (test code = 4644772825) 178 mg/dL 70-110 H Lab Interpretation (test code = Abnormal 80765-5) General acute hospital GLUCOSE (AUTOMATED)2022-11-07 14:17:47 Test Item Value Reference Range Interpretation Comments POCT GLU (test code = 7079830120) 156 mg/dL 70-110 H Lab Interpretation (test code = Abnormal 71313-9) General acute hospital GLUCOSE (AUTOMATED)2022-11-07 03:33:30 Test Item Value Reference Range Interpretation Comments POCT GLU (test code = 9332237368) 153 mg/dL 70-110 H Lab Interpretation (test code = Abnormal 83785-4) General acute hospital GLUCOSE (AUTOMATED)2022-11-06 22:57:40 Test Item Value Reference Range Interpretation Comments POCT GLU (test code = 7752928094) 139 mg/dL 70-110 H Lab Interpretation (test code = Abnormal 54477-5) [facility] [id number] 22:26:29 Test Item Value Reference Range Interpretation Comments BOH (test code = 3.0 mmol/L 8674302131) ZULEIMA (test code = Normal Ranges: ? ? ZULEIMA) Nonfasting ? Less than 0.1 mmol/L ? ? Overnight Fast ? ? ? Less than 0.4 mmol/L ? ? Fasting (1-2 weeks) ?6-8 mmol/L Test developed and characteristics determined by [facility] Laboratory Services. [facility] Metabolic Panel (Na, K, Cl, CO2, Glucose, BUN, Creatinine, Ca)2022-11-06 21:22:03 Test Item Value Reference Range Interpretation Comments NA (test code = 136 mmol/L 135-145 4270139273) K (test code = 3.9 mmol/L 3.5-5.0 Slight 8015434461) hemolysis CL (test code = 109 mmol/L 98-108 H 0402411709) CO2 TOTAL (test code 15 mmol/L 23-31 L = 5685231936) AGAP (test code = 2-16 1473966751) BUN (test code = 7-23 L Slight 1807841507) hemolysis GLUCOSE (test code = 171 mg/dL 70-110 H 6392031832) CREATININE (test code 0.49 mg/dL 0.60-1.25 L = 7051871218) CALCIUM (test code = 7.9 mg/dL 8.6-10.6 L 2820215920) eGFR (test code = mL/min/1.73m2 7729520069) ZULEIMA (test code = ZULEIMA) Association of Glomerular Filtration Rate (GFR) and Staging of Kidney Disease* + -----+ --------+ +| GFR (mL/min/1.73 m2) ?| With Kidney Damage ?| ?Without Kidney Damage+ +------- +---- --+| ?>90 ?| ?Stage one ?| ? Normal ?+ ------+ ---------+--------- +| ?60-89 ?| ?Stage two ?| ? Decreased GFR ? + -----+ --------+ +| ?30-59 ?| ?Stage three ?| ? Stage three ? + -----+ --------+ +| ?15-29 ?| ?Stage four ? | ? Stage four ?+ ------+ ---------+--------- +| ?<15 (or dialysis) ? ?| ?Stage five ? | ? Stage five ?+ ------+ ---------+--------- + *Each stage assumes the associated GFR level [...] tests). Lab Interpretation Abnormal (test code = 29180-8) [facility]2022-11-06 16:16:50 Test Item Value Reference Range Interpretation Comments POCT GLU (test code = 3881396440) 163 mg/dL 70-110 H Lab Interpretation (test code = Abnormal 25851-3) [facility] (Na, K, Cl, CO2, Glucose, BUN, Creatinine, Ca)2022-11-06 12:51:08 Test Item Value Reference Range Interpretation Comments NA (test code = 135 mmol/L 135-145 3872026806) K (test code = 4.7 mmol/L 3.5-5.0 Slight 0348224824) hemolysis CL (test code = 110 mmol/L 98-108 H 9820280050) CO2 TOTAL (test code 12 mmol/L 23-31 L = 5884986352) AGAP (test code = 2-16 7747304964) BUN (test code = 3 mg/dL 7-23 L Slight 2970133711) hemolysis GLUCOSE (test code = 152 mg/dL 70-110 H 5726983291) CREATININE (test code 0.62 mg/dL 0.60-1.25 = 5498562501) CALCIUM (test code = 8.3 mg/dL 8.6-10.6 L 5402135450) eGFR (test code = mL/min/1.73m2 4454038605) ZULEIMA (test code = ZULEIMA) Association of Glomerular Filtration Rate (GFR) and Staging of Kidney Disease* + -----+ --------+ +| GFR (mL/min/1.73 m2) ?| With Kidney Damage ?| ?Without Kidney Damage+ +------- +---- --+| ?>90 ?| ?Stage one ?| ? Normal ?+ ------+ ---------+--------- +| ?60-89 ?| ?Stage two ?| ? Decreased GFR ? + -----+ --------+ +| ?30-59 ?| ?Stage three ?| ? Stage three ? + -----+ --------+ +| ?15-29 ?| ?Stage four ? | ? Stage four ?+ ------+ ---------+--------- +| ?<15 (or dialysis) ? ?| ?Stage five ? | ? Stage five ?+ ------+ ---------+--------- + *Each stage assumes the associated GFR level [...] tests). Lab Interpretation Abnormal (test code = 65317-4) General acute hospital GLUCOSE (AUTOMATED)2022-11-06 11:27:27 Test Item Value Reference Range Interpretation Comments POCT GLU (test code = 3725943764) 139 mg/dL 70-110 H Lab Interpretation (test code = Abnormal 46615-7) General acute hospital GLUCOSE (AUTOMATED)2022-11-06 09:28:37 Test Item Value Reference Range Interpretation Comments POCT GLU (test code = 3786122111) 137 mg/dL 70-110 H Lab Interpretation (test code = Abnormal 04577-1) General acute hospital GLUCOSE(AGE >30DAYS)2022-11-06 08:15:00 Test Item Value Reference Range Interpretation Comments POCT Glu (age>30days) (test code = 107 mg/dL 70-110 3342) Lab Interpretation (test code = Normal 79679-6) [facility] acute hospital GLUCOSE (AUTOMATED)2022-11-06 06:58:20 Test Item Value Reference Range Interpretation Comments POCT GLU (test code = 6813550110) 96 mg/dL 70-110 Lab Interpretation (test code = Normal 92125-3) General acute hospital GLUCOSE(AGE >30DAYS)2022-11-06 06:58:00 Test Item Value Reference Range Interpretation Comments POCT Glu (age>30days) (test code = 96 mg/dL 70-110 3342) Lab Interpretation (test code = Normal 38927-0) [facility] [id number] 05:12[facility]24 Test Item Value Reference Interpretation Comments Range TROPONIN I (test 0.003 ng/mL See_Comment [Automated code = 1087649330) message] The system which generated this result [...] biotin. Lab Interpretation Normal (test code = 89225-0) [facility] [id number] 05:09:22 Test Item Value Reference Range Interpretation Comments NT-proBNP (test code 58 pg/mL See_Comment [Autom ated = 2446665354) message] The system which generated this result transmitted reference range : <=125. The reference range was not used to interpret this result as normal/abnormal . ZULEIMA (test code = ZULEIMA) Biotin has been reported to cause a negative bias, interpret results relative to patient's use of biotin. Lab Interpretation Normal (test code = 22222-4) [facility] (48737)2022-11-06 05:00:43 Test Item Value Reference Range Interpretation Comments NA (test code = 135 mmol/L 135-145 6908788775) K (test code = 4.3 mmol/L 3.5-5.0 2295872427) CL (test code = 106 mmol/L 98-108 5069933986) CO2 TOTAL (test code = 11 mmol/L 23-31 L 7887900697) AGAP (test code = 2-16 H 0681954357) BUN (test code = 3 mg/dL 7-23 L 8469148559) GLUCOSE (test code = 129 mg/dL 70-110 H 6473779448) CREATININE (test code = 0.71 mg/dL 0.60-1.25 3365793491) TOTAL BILI (test code = 1.0 mg/dL 0.1-1.0 7817527133) CALCIUM (test code = 8.7 mg/dL 8.6-10.6 6870520073) T PROTEIN (test code = 6.6 g/dL 6.3-8.2 8191052366) ALBUMIN (test code = 3.9 g/dL 3.5-5.0 1768365510) ALK PHOS (test code = 85 U/L 34-122 9782801396) ALTv (test code = 125 U/L 5-50 H 2-6) AST(SGOT) (test code = 39 U/L 13-40 1424734802) eGFR (test code = mL/min/1.73m2 7811758034) ZULEIMA (test code = ZULEIMA) Association of [...] tests). Lab Interpretation Abnormal (test code = 11466-2) [facility]00[facility]43 Test Item Value Reference Range Interpretation Comments LIPASE (test code = 1495844490) 105 U/L 0-220 Lab Interpretation (test code = Normal 97673-6) [facility] WITH [id number] 04:33:58 Test Item Value Reference Range Interpretation Comments WBC (test code = See_Comment [Automated 5090-2) message] The sy stem which generated this result transmitted reference range : 4.20 - 10.70 10*3/?L. The reference range was not used to interpret this result as normal/abnormal . RBC (test code = See_Comment [Automated 789-8) message] The sy stem which generated this result transmitted reference range : 4.26 - 5.52 10*6/?L. The reference range was not used to interpret this result as normal/abnormal . HGB (test code = 15.2 g/dL 12.2-16.4 718-7) HCT (test code = 46.2 % 38.4-49.3 4544-3) MCV (test code = 90.6 fL 81.7-95.6 787-2) MCH (test code = 29.8 pg 26.1-32.7 785-6) MCHC (test code = 32.9 g/dL 31.2-35.0 786-4) RDW-SD (test code = 47.2 fL 38.5-51.6 16997-8) RDW-CV (test code = 14.2 % 12.1-15.4 788-0) PLT (test code = See_Comment [Automated 777-3) message] The sy stem which generated this result transmitted reference range : 150 - 328 10*3/ ?L. The reference r oleg was not used to interpret this result as normal/abnormal . MPV (test code = 8.5 fL 9.8-13.0 L 15718-5) NRBC/100 WBC (test See_Comment [Automat ed code = 7822125304) message] The system which generated this result transmitted reference range : 0.0 - 10.0 /100 WBCs. The refer ence range was not u sed to interpret th is result as normal/abnormal . NRBC x10^3 (test code See_Comment [Auto mated = 0874988785) message] The s ystem which generated this result transmitted reference range : 10*3/?L. The reference range was not used to interpret this result as normal/abnormal . GRAN MAT (NEUT) % 53.8 % (test code = 770-8) IMM GRAN % (test code 0.60 % = 1488976303) LYMPH % (test code = 34.6 % 736-9) MONO % (test code = 8.3 % 5905-5) EOS % (test code = 2.4 % 713-8) BASO % (test code = 0.3 % 706-2) GRAN MAT x10^3(ANC) 3.85 10*3/uL 1.99-6.95 (test code = 6634420605) IMM GRAN x10^3 (test 0.04 10*3/uL 0.00-0.06 code = 2272040823) LYMPH x10^3 (test code 2.47 10*3/uL 1.09-3.23 = 731-0) MONO x10^3 (test code 0.59 10*3/uL 0.36-1.02 = 742-7) EOS x10^3 (test code = 0.17 10*3/uL 0.06-0.53 711-2) BASO x10^3 (test code 0.01-0.09 = 704-7) Lab Interpretation Abnormal (test code = 94101-2) [facility]- [facility] 1 [id number] 09:27:00 [facility] 1970 Sex: M Name: DANIEL LEHMANland : 1970 Age/S: 51 / M [address] [facility] Unit #: [id number]: [place] [address] Phys: Randall Veloz MD Acct: [id number] Dis Date: Status: REG [facility] PHONE #: [phone] Exam Date: 09/24/202210 FAX #: Reason: PRE OP EXAMS: CPT: [id number] XR CHEST 1 V 24552 Fluoro Time: DAP (Gy m2): Air Kerma (mGy): EXAMINATION: - XR CHEST 1 V. LOCATION: [facility]. HISTORY: PRE OP, GERD. COMPARISON: None. FINDINGS: Examination is limited due to portable technique and patient body habitus. Cardiac silhouette/Mediastinal contour: Prominence of cardiac silhouette. Lungs: No focal consolidation. No large pleural effusion. Osseous Structures: Mild degenerative changes affect thoracic spine. IMPRESSION: No focal consolidation. Prominence of cardiac silhouette. at 0927 Reported and signed by: Sil Hooks M.D. CC: Randall Veloz MD; Lukasz Saul MD PAGE 1 Signed Report Name: [facility] [place] : 1970 Age/S: 51 / M [address] [facility] Unit #: [id number] Loc: [place] [address] Phys: Randall Veloz MD Acct: [id number] Dis Date: Status: REG [facility] PHONE #: [phone] Exam Date: 09/24/2022 0910 FAX #: Reason: PRE OP EXAMS: CPT: [id number] XR CHEST 1 V 62622 Fluoro Time: DAP (Gy m2): Air Kerma (mGy): (Continued) Technologist: Delano Sorenson, RT(R)(CT) Trnscb Date/Time: 09/24/2022 (6511) t.[email or web address] Orig Print D/T: S: 09/24/2022 (3883) PAGE 2 [facility]/AUTO [id number] 09:06:00 Test Item Value Reference Range Interpretation Comments WHITE BLOOD CELL (test code = 8.4 K/mm3 3.5-11.0 N WBC) RED BLOOD CELL (test code = 4.98 M/mm3 4.70-6.10 N RBC) HEMOGLOBIN (test code = HGB) 14.1 G/DL 12.3-15.9 N HEMATOCRIT (test code = HCT) 44.1 % 35.8-46.7 N MEAN CELL VOLUME (test code = 88.6 Fl 86.3-98.9 N MCV) MEAN CELL HGB (test code = MCH) 28.3 pg 28.9-34.4 L MEAN CELL HGB CONCETRATION 32.0 G/DL 32.1-34.5 L (test code = MCHC) RED CELL DISTRIBUTION WIDTH 16.9 SD 11.5-14.5 H (test code = RDW) PLATELET COUNT (test code = 259 K/mm3 150-450 N PLT) MEAN PLATELET VOLUME (test code 8.70 fL 7.0-9.6 N = MPV) NEUTROPHIL % (test code = NT%) 53.7 % 40-76 N IMMATURE GRANULOCYTE % (test 0.8 % 0.0-5.0 N code = IG%) LYMPHOCYTE % (test code = LY%) 35.4 % 20.5-51.1 N MONOCYTE % (test code = MO%) 8.2 % 1.7-9.3 N EOSINOPHIL % (test code = EO%) 1.3 % 0.0-6.0 N BASOPHIL % (test code = BA%) 0.6 % 0.0-2.0 N NUCLEATED RBC % (test code = 0.0 /100WBC% 0.0-1.0 N NRBC%) NEUTROPHIL # (test code = NT#) 4.5 K/mm3 1.8-7.6 N IMMATURE GRANULOCYTE # (test 0.07 x10 3/uL 0.00-0.03 H code = IG#) LYMPHOCYTE # (test code = LY#) 3.0 K/mm3 0.6-3.0 N MONOCYTE # (test code = MO#) 0.7 K/mm3 0.2-1.5 N EOSINOPHIL # (test code = EO#) 0.1 K/mm3 0.0-0.4 N BASOPHIL # (test code = BA#) 0.1 K/mm3 0.0-0.2 N NUCLEATED RBC # (test code = 0.0 K/mm3 0.00-0.01 N NRBC#) MANUAL DIFF REQUIRED (test code NO DIFF/SCN CRITERIA = MDIFF) BASIC METABOLIC [id number] 09:00:00 Test Item Value Reference Range Interpretation [...] 8.9 MG/DL 8.5-10.1 N COVID 19 INHOUSE [id number] 08:52:00 Test Item Value Reference Range Interpretation Comments COVID 19 INHOUSE AG NEGATIVE Negative Per manu facturer, (test code = negative result s should [id number]) be treated aspr esumptive and, if inconsi [...] Interpretation Comments POCT GLU (test code = 6843822388) 193 mg/dL 70-110 H Lab Interpretation (test code = Abnormal 81750-4) General acute hospital GLUCOSE (AUTOMATED)2022-09-04 13:42:12 Test Item Value Reference Range Interpretation Comments POCT GLU (test code = 2276865451) 185 mg/dL 70-110 H Lab Interpretation (test code = Abnormal 31270-6) General acute hospital GLUCOSE (AUTOMATED)2022-09-04 05:36:51 Test Item Value Reference Range Interpretation Comments POCT GLU (test code = 5529845145) 204 mg/dL 70-110 H Lab Interpretation (test code = Abnormal 04919-2) [facility] (A1C)2022-09-04 05:24:19 Test Item Value Reference Range Interpretation Comments HGB A1C (test code = 9.2 % 4-5.7 H 4548-4) ZULEIMA (test code = ZULEIMA) Reference RangesNormal: <5.7%Prediabetes: 5.7 - 6.4%Diabetes: > 6.5% Lab Interpretation (test Abnormal code = 04538-5) [facility] [id number] 22:58:29 Test Item Value Reference Interpretation Comments Range TROPONIN I (test 0.002 ng/mL See_Comment [Automated code = 1163385139) message] The system which generated this result [...] biotin. Lab Interpretation Normal (test code = 72122-5) [facility] [id number] 22:55:11 Test Item Value Reference Range Interpretation Comments NT-proBNP (test code 29 pg/mL See_Comment [Autom ated = 4611296907) message] The system which generated this result transmitted reference range : <=125. The reference range was not used to interpret this result as normal/abnormal . ZULEIMA (test code = ZULEIMA) Biotin has been reported to cause a negative bias, interpret results relative to patient's use of biotin. Lab Interpretation Normal (test code = 72869-4) [facility] CenterACTIVATED PARTIAL THRMPLAS [id number] 22:51:28 Test Item Value Reference Range Interpretation Comments APTT Patient (test See_Comment L [Automat ed code = 3173-2) message] The system which generated this result transmitted reference range : 23 - 38 Seconds . The reference range was not used to interpr et this result as normal/abnormal . ZULEIMA (test code = ZULEIMA) The [facility] patient population mean normal value for aPTT is 30 seconds. Lab Interpretation Abnormal (test code = 44211-9) [facility] CenterCOMP[facility] MET[facility]OLIC PANEL (55741)2022-09-03 22:46:28 Test Item Value Reference Range Interpretation Comments NA (test code = 137 mmol/L 135-145 9868884142) K (test code = 5.1 mmol/L 3.5-5 H 1733861062) CL (test code = 103 mmol/L 98-108 3693034727) CO2 TOTAL (test code = 21 mmol/L 23-31 L 6910310194) AGAP (test code = 2-16 4373596864) BUN (test code = 18 mg/dL 7-23 8713336496) GLUCOSE (test code = 360 mg/dL 70-110 H 2630549148) CREATININE (test code = 0.84 mg/dL 0.6-1.25 3975614023) TOTAL BILI (test code = 0.7 mg/dL 0.1-1.7 1865203594) CALCIUM (test code = 9.2 mg/dL 8.6-10.6 0570799098) T PROTEIN (test code = 6.7 g/dL 6.3-8.2 3029719066) ALBUMIN (test code = 4.3 g/dL 3.5-5 3896703682) ALK PHOS (test code = 140 U/L 34-122 H 7503324508) ALTv (test code = 727 U/L 5-50 H 1742-6) AST(SGOT) (test code = 348 U/L 13-40 H 1076082585) eGFR (test code = mL/min/1.73m2 9938247910) ZULEIMA (test code = ZULEIMA) Association of [...] tests). Lab Interpretation Abnormal (test code = 32783-2) [facility] 22:46:09 Test Item Value Reference Range Interpretation Comments LIPASE (test code = 1135414738) 252 U/L 0-220 H Lab Interpretation (test code = Abnormal 50225-7) [facility] WITH [id number] 22:35:24 Test Item Value Reference Range Interpretation Comments WBC (test code = See_Comment [Automated 6690-2) message] The sy stem which generated this result transmitted reference range : 4.20 - 10.70 10*3/?L. The reference range was not used to interpret this result as normal/abnormal . RBC (test code = See_Comment [Automated 789-8) message] The sy stem which [...] RDW-SD (test code = 50.6 fL 38.5-51.6 07543-2) RDW-CV (test code = 16.0 % 12.1-15.4 H 788-0) PLT (test code = See_Comment [Automated 777-3) message] The sy stem which generated this result transmitted reference range : 150 - 328 10*3/ ?L. The reference r oleg was not used to interpret this result as normal/abnormal . MPV (test code = 9.1 fL 9.8-13 L 85233-9) NRBC/100 WBC (test See_Comment [Automat ed code = 2238525733) message] The system which generated this result transmitted reference range : 0.0 - 10.0 /100 WBCs. The refer ence range was not u sed to interpret th is result as normal/abnormal . NRBC x10^3 (test code See_Comment [Auto mated = 9688607801) message] The s ystem which generated this result transmitted reference range : 10*3/?L. The reference range was not used to interpret this result as normal/abnormal . GRAN MAT (NEUT) % 74.4 % (test code = 770-8) IMM GRAN % (test code 1.60 % = 7122095654) LYMPH % (test code = 17.8 % 736-9) MONO % (test code = 5.7 % 5905-5) EOS % (test code = 0.1 % 713-8) BASO % (test code = 0.4 % 706-2) GRAN MAT x10^3(ANC) 6.35 10*3/uL 1.99-6.95 (test code = 5432790731) IMM GRAN x10^3 (test 0.14 10*3/uL 0-0.06 H code = 2699288156) LYMPH x10^3 (test code 1.52 10*3/uL 1.09-3.23 = 731-0) MONO x10^3 (test code 0.49 10*3/uL 0.36-1.02 = 742-7) EOS x10^3 (test code = 0.06-0.53 L 711-2) BASO x10^3 (test code 0.03 10*3/uL 0.01-0.09 = 704-7) Lab Interpretation Abnormal (test code = 91626-6) General acute hospital GLUCOSE (AUTOMATED)2022-04-23 19:01:02 Test Item Value Reference Range Interpretation Comments POCT GLU (test code = 6406164293) 174 mg/dL 70-110 H Lab Interpretation (test code = Abnormal 37206-3) General acute hospital GLUCOSE (AUTOMATED)2022-04-23 16:43:23 Test Item Value Reference Range Interpretation Comments POCT GLU (test code = 9174408481) 162 mg/dL 70-110 H Lab Interpretation (test code = Abnormal 24527-7) General acute hospital GLUCOSE (AUTOMATED)2022-04-23 15:37:41 Test Item Value Reference Range Interpretation Comments POCT GLU (test code = 6769712156) 130 mg/dL 70-110 H Lab Interpretation (test code = Abnormal 42198-5) General acute hospital GLUCOSE (AUTOMATED)2022-04-23 12:54:00 Test Item Value Reference Range Interpretation Comments POCT GLU (test code = 7121929284) 135 mg/dL 70-110 H Lab Interpretation (test code = Abnormal 91639-5) [facility] METABOLIC PANEL (NA, K, CL, CO2, GLUCOSE, BUN, CREATININE, CA)2022-04-23 11:38:26 Test Item Value Reference Range Interpretation Comments NA (test code = 137 mmol/L 135-145 2168606807) K (test code = 3.2 mmol/L 3.5-5.0 L 6314684953) CL (test code = 110 mmol/L 98-108 H 5735538737) CO2 TOTAL (test code = 19 mmol/L 23-31 L 2471949131) AGAP (test code = 2-16 4211234792) BUN (test code = <2 7-23 L 8929878668) GLUCOSE (test code = 121 mg/dL 70-110 H 7173773304) CREATININE (test code = 0.67 mg/dL 0.60-1.25 0545278666) CALCIUM (test code = 7.7 mg/dL 8.6-10.6 L 6130475831) eGFR (test code = mL/min/1.73m2 6955083801) ZULEIMA (test code = ZULEIMA) Association of [...] tests). Lab Interpretation Abnormal (test code = 09098-8) General acute hospital GLUCOSE (AUTOMATED)2022-04-23 11:35:25 Test Item Value Reference Range Interpretation Comments POCT GLU (test code = 3193001300) 135 mg/dL 70-110 H Lab Interpretation (test code = Abnormal 29496-6) [facility]20[facility] 11:05:56 Test Item Value Reference Range Interpretation Comments MAGNESIUM (test code = 7814169671) 1.7 mg/dL 1.7-2.4 Lab Interpretation (test code = Normal 91772-6) General acute hospital GLUCOSE (AUTOMATED)2022-04-23 09:37:57 Test Item Value Reference Range Interpretation Comments POCT GLU (test code = 7597912424) 107 mg/dL 70-110 Lab Interpretation (test code = Normal 14033-5) General acute hospital GLUCOSE (AUTOMATED)2022-04-23 07:22:08 Test Item Value Reference Range Interpretation Comments POCT GLU (test code = 5649099772) 146 mg/dL 70-110 H Lab Interpretation (test code = Abnormal 42837-8) General acute hospital GLUCOSE (AUTOMATED)2022-04-23 05:29:09 Test Item Value Reference Range Interpretation Comments POCT GLU (test code = 6794697963) 142 mg/dL 70-110 H Lab Interpretation (test code = Abnormal 68878-5) General acute hospital GLUCOSE (AUTOMATED)2022-04-23 04:10:18 Test Item Value Reference Range Interpretation Comments POCT GLU (test code = 0814538468) 148 mg/dL 70-110 H Lab Interpretation (test code = Abnormal 59486-7) General acute hospital GLUCOSE (AUTOMATED)2022-04-23 02:27:55 Test Item Value Reference Range Interpretation Comments POCT GLU (test code = 0217943027) 160 mg/dL 70-110 H Lab Interpretation (test code = Abnormal 56445-9) [facility] Metabolic Panel (Na, K, Cl, CO2, Glucose, BUN, Creatinine, Ca)2022-04-23 01:58:18 Test Item Value Reference Range Interpretation Comments NA (test code = 137 mmol/L 135-145 1530260839) K (test code = 3.6 mmol/L 3.5-5.0 8096018043) CL (test code = 109 mmol/L 98-108 H 5122222886) CO2 TOTAL (test code = 17 mmol/L 23-31 L 7807089444) AGAP (test code = 2-16 7567640555) BUN (test code = <2 7-23 L 3337445933) GLUCOSE (test code = 162 mg/dL 70-110 H 3563462277) CREATININE (test code = 0.62 mg/dL 0.60-1.25 1382479517) CALCIUM (test code = 8.2 mg/dL 8.6-10.6 L 5456153052) eGFR (test code = mL/min/1.73m2 6911272053) ZULEIMA (test code = ZULEIMA) Association of [...] tests). Lab Interpretation Abnormal (test code = 64879-8) General acute hospital GLUCOSE (AUTOMATED)2022-04-23 01:21:32 Test Item Value Reference Range Interpretation Comments POCT GLU (test code = 6727739589) 142 mg/dL 70-110 H Lab Interpretation (test code = Abnormal 49013-8) General acute hospital GLUCOSE (AUTOMATED)2022-04-23 00:05:03 Test Item Value Reference Range Interpretation Comments POCT GLU (test code = 6199211711) 148 mg/dL 70-110 H Lab Interpretation (test code = Abnormal 68838-5) General acute hospital GLUCOSE (AUTOMATED)2022-04-22 23:06:57 Test Item Value Reference Range Interpretation Comments POCT GLU (test code = 0406964593) 144 mg/dL 70-110 H Lab Interpretation (test code = Abnormal 52301-2) General acute hospital GLUCOSE (AUTOMATED)2022-04-22 22:12:45 Test Item Value Reference Range Interpretation Comments POCT GLU (test code = 8406330258) 145 mg/dL 70-110 H Lab Interpretation (test code = Abnormal 64002-1) [facility] [id number] 21:43:14 Test Item Value Reference Interpretation Comments Range TROPONIN I (test 0.003 ng/mL See_Comment [Automated code = 1481346267) message] The system which generated this result [...] biotin. Lab Interpretation Normal (test code = 08132-3) [facility] Metabolic Panel (Na, K, Cl, CO2, Glucose, BUN, Creatinine, Ca)2022-04-22 21:31:09 Test Item Value Reference Range Interpretation Comments NA (test code = 134 mmol/L 135-145 L 5168138155) K (test code = 3.9 mmol/L 3.5-5.0 1650622050) CL (test code = 108 mmol/L 98-108 0915861380) CO2 TOTAL (test code = 15 mmol/L 23-31 L 7902354892) AGAP (test code = 2-16 4660936977) BUN (test code = 2 mg/dL 7-23 L 2556332294) GLUCOSE (test code = 170 mg/dL 70-110 H 6600724429) CREATININE (test code = 0.62 mg/dL 0.60-1.25 6066008275) CALCIUM (test code = 8.3 mg/dL 8.6-10.6 L 9731135255) eGFR (test code = mL/min/1.73m2 2490687877) ZULEIMA (test code = ZULEIMA) Association of [...] tests). Lab Interpretation Abnormal (test code = 22065-2) General acute hospital GLUCOSE (AUTOMATED)2022-04-22 21:08:08 Test Item Value Reference Range Interpretation Comments POCT GLU (test code = 8481784214) 156 mg/dL 70-110 H Lab Interpretation (test code = Abnormal 83139-7) General acute hospital GLUCOSE (AUTOMATED)2022-04-22 19:48:36 Test Item Value Reference Range Interpretation Comments POCT GLU (test code = 5540493355) 154 mg/dL 70-110 H Lab Interpretation (test code = Abnormal 09782-6) General acute hospital GLUCOSE (AUTOMATED)2022-04-22 18:44:52 Test Item Value Reference Range Interpretation Comments POCT GLU (test code = 2426063899) 146 mg/dL 70-110 H Lab Interpretation (test code = Abnormal 04197-7) General acute hospital GLUCOSE (AUTOMATED)2022-04-22 17:28:16 Test Item Value Reference Range Interpretation Comments POCT GLU (test code = 8894329620) 148 mg/dL 70-110 H Lab Interpretation (test code = Abnormal 27104-0) [facility] Metabolic Panel (Na, K, Cl, CO2, Glucose, BUN, Creatinine, Ca)2022-04-22 16:11:05 Test Item Value Reference Range Interpretation Comments NA (test code = 134 mmol/L 135-145 L 5146159718) K (test code = 3.8 mmol/L 3.5-5.0 2890002882) CL (test code = 106 mmol/L 98-108 6293148019) CO2 TOTAL (test code = 15 mmol/L 23-31 L 5868824048) AGAP (test code = 2-16 2094322350) BUN (test code = 4 mg/dL 7-23 L 9238569522) GLUCOSE (test code = 179 mg/dL 70-110 H 1788054881) CREATININE (test code = 0.68 mg/dL 0.60-1.25 3167021618) CALCIUM (test code = 8.5 mg/dL 8.6-10.6 L 9709781133) eGFR (test code = mL/min/1.73m2 4123643057) ZULEIMA (test code = ZULEIMA) Association of [...] tests). Lab Interpretation Abnormal (test code = 95080-5) [facility] 16:10:40 Test Item Value Reference Range Interpretation Comments POCT GLU (test code = 1481946932) 157 mg/dL 70-110 H Lab Interpretation (test code = Abnormal 11547-4) [facility] WITH [id number] 15:48:43 Test Item Value Reference Range Interpretation Comments WBC (test code = See_Comment [Automated 6690-2) message] The sy stem which generated this result transmitted reference range : 4.20 - 10.70 10*3/?L. The reference range was not used to interpret this result as normal/abnormal . RBC (test code = See_Comment [Automated 789-8) message] The sy stem which [...] RDW-SD (test code = 38.5 fL 38.5-51.6 91873-3) RDW-CV (test code = 12.4 % 12.1-15.4 788-0) PLT (test code = See_Comment [Automated 777-3) message] The sy stem which generated this result transmitted reference range : 150 - 328 10*3/ ?L. The reference r oleg was not used to interpret this result as normal/abnormal . MPV (test code = 9.2 fL 9.8-13.0 L 69990-9) NRBC/100 WBC (test See_Comment [Automat ed code = 0682205364) message] The system which generated this result transmitted reference range : 0.0 - 10.0 /100 WBCs. The refer ence range was not u sed to interpret th is result as normal/abnormal . NRBC x10^3 (test code <0.01 See_Comment [Auto mated = 7010367379) message] The s ystem which generated this result transmitted reference range : 10*3/?L. The reference range was not used to interpret this result as normal/abnormal . GRAN MAT (NEUT) % 69.0 % (test code = 770-8) IMM GRAN % (test code 0.40 % = 2956771332) LYMPH % (test code = 18.9 % 736-9) MONO % (test code = 9.1 % 5905-5) EOS % (test code = 2.0 % 713-8) BASO % (test code = 0.6 % 706-2) GRAN MAT x10^3(ANC) 6.20 10*3/uL 1.99-6.95 (test code = 3678172979) IMM GRAN x10^3 (test 0.04 10*3/uL 0.00-0.06 code = 8151648410) LYMPH x10^3 (test code 1.70 10*3/uL 1.09-3.23 = 731-0) MONO x10^3 (test code 0.82 10*3/uL 0.36-1.02 = 742-7) EOS x10^3 (test code = 0.18 10*3/uL 0.06-0.53 711-2) BASO x10^3 (test code 0.05 10*3/uL 0.01-0.09 = 704-7) Lab Interpretation Abnormal (test code = 41856-7) General acute hospital GLUCOSE (AUTOMATED)2022-04-22 14:27:15 Test Item Value Reference Range Interpretation Comments POCT GLU (test code = [id number]) 150 mg/dL 70-110 H Lab Interpretation (test code = Abnormal 04806-0) General acute hospital GLUCOSE (AUTOMATED)2022-04-22 13:41:45 Test Item Value Reference Range Interpretation Comments POCT GLU (test code = [id number]) 149 mg/dL 70-110 H Lab Interpretation (test code = Abnormal 25862-5) General acute hospital GLUCOSE (AUTOMATED)2022-04-22 12:29:18 Test Item Value Reference Range Interpretation Comments POCT GLU (test code = [id number]) 174 mg/dL 70-110 H Lab Interpretation (test code = Abnormal 34521-4) General acute hospital GLUCOSE (AUTOMATED)2022-04-22 11:33:37 Test Item Value Reference Range Interpretation Comments POCT GLU (test code = [id number]) 159 mg/dL 70-110 H Lab Interpretation (test code = Abnormal 68121-2) [facility] Metabolic Panel (Na, K, Cl, CO2, Glucose, BUN, Creatinine, Ca)2022-04-22 11:30:20 Test Item Value Reference Range Interpretation Comments NA (test code = 133 mmol/L 135-145 L 9148377777) K (test code = 3.3 mmol/L 3.5-5.0 L 6325661376) CL (test code = 104 mmol/L 98-108 9722960649) CO2 TOTAL (test code = 14 mmol/L 23-31 L 5827095972) AGAP (test code = 2-16 4709591236) BUN (test code = 4 mg/dL 7-23 L 4222232094) GLUCOSE (test code = 172 mg/dL 70-110 H 1768901936) CREATININE (test code = 0.77 mg/dL 0.60-1.25 0428415028) CALCIUM (test code = 8.6 mg/dL 8.6-10.6 8298090039) eGFR (test code = mL/min/1.73m2 6150459445) ZULEIMA (test code = ZULEIMA) Association of [...] tests). Lab Interpretation Abnormal (test code = 66224-3) General acute hospital GLUCOSE (AUTOMATED)2022-04-22 10:56:08 Test Item Value Reference Range Interpretation Comments POCT GLU (test code = 1576382400) 157 mg/dL 70-110 H Lab Interpretation (test code = Abnormal 31431-7) General acute hospital GLUCOSE (AUTOMATED)2022-04-22 10:56:03 Test Item Value Reference Range Interpretation Comments POCT GLU (test code = 7556899469) 96 mg/dL 70-110 Lab Interpretation (test code = Normal 44987-0) General acute hospital GLUCOSE (AUTOMATED)2022-04-22 09:35:36 Test Item Value Reference Range Interpretation Comments POCT GLU (test code = 4807409907) 158 mg/dL 70-110 H Lab Interpretation (test code = Abnormal 89389-9) General acute hospital GLUCOSE (AUTOMATED)2022-04-22 08:36:40 Test Item Value Reference Range Interpretation Comments POCT GLU (test code = 6202976089) 166 mg/dL 70-110 H Lab Interpretation (test code = Abnormal 22719-3) [facility] Metabolic Panel (Na, K, Cl, CO2, Glucose, BUN, Creatinine, Ca)2022-04-22 08:00:14 Test Item Value Reference Range Interpretation Comments NA (test code = 133 mmol/L 135-145 L 4829367952) K (test code = 3.6 mmol/L 3.5-5.0 1053340034) CL (test code = 103 mmol/L 98-108 5157795410) CO2 TOTAL (test code = 14 mmol/L 23-31 L 8821358900) AGAP (test code = 2-16 1248201757) BUN (test code = 5 mg/dL 7-23 L 4034639777) GLUCOSE (test code = 172 mg/dL 70-110 H 1171952050) CREATININE (test code = 0.85 mg/dL 0.60-1.25 5560870076) CALCIUM (test code = 9.0 mg/dL 8.6-10.6 6164710572) eGFR (test code = mL/min/1.73m2 9479008536) ZULEIMA (test code = ZULEIMA) Association of [...] tests). Lab Interpretation Abnormal (test code = 05445-8) [facility] Center[facility]smolality [id number] 07:46:08 Test Item Value Reference Range Interpretation Comments OSMOLALITY (test code = See_Comment [Au tomated message] 2692-2) The system [email or web address] generated this result transmitted ref erence range: 278 - 30 5 mOsm/kg. The re ference range was not u sed to interpret this result as normal/abnor mal. Lab Interpretation (test Normal code = 89905-6) General acute hospital GLUCOSE (AUTOMATED)2022-04-22 07:36:29 Test Item Value Reference Range Interpretation Comments POCT GLU (test code = 0646169385) 144 mg/dL 70-110 H Lab Interpretation (test code = Abnormal 21546-8) General acute hospital GLUCOSE (AUTOMATED)2022-04-22 07:36:29 Test Item Value Reference Range Interpretation Comments POCT GLU (test code = 6466106965) 168 mg/dL 70-110 H Lab Interpretation (test code = Abnormal 89741-8) [facility] CenterBetahydroxy-Puxkijxb5231-11-93 07:26:24 Test Item Value Reference Range Interpretation Comments BOH (test code = 3.1 mmol/L 8747202148) ZULEIMA (test code = Normal Ranges: ? ? ZULEIMA) Nonfasting ? Less than 0.1 mmol/L ? ? Overnight Fast ? ? ? Less than 0.4 mmol/L ? ? Fasting (1-2 weeks) ?6-8 mmol/L Test developed and characteristics determined by [facility] Laboratory Services. [facility] Center[facility]AUT[facility])2022-04-22 06:32:35 Test Item Value Reference Range Interpretation Comments POCT GLU (test code = 0640584898) 155 mg/dL 70-110 H Lab Interpretation (test code = Abnormal 30263-5) [facility] (Na, K, Cl, CO2, Glucose, BUN, Creatinine, Ca)2022-04-22 06:02:22 Test Item Value Reference Range Interpretation Comments NA (test code = 134 mmol/L 135-145 L 0431657177) K (test code = 3.6 mmol/L 3.5-5.0 4980384037) CL (test code = 104 mmol/L 98-108 5349895977) CO2 TOTAL (test code = 11 mmol/L 23-31 L 0871491464) AGAP (test code = 2-16 H 1946318648) BUN (test code = 7 mg/dL 7-23 1849492964) GLUCOSE (test code = 177 mg/dL 70-110 H 9463242139) CREATININE (test code = 0.81 mg/dL 0.60-1.25 8655776117) CALCIUM (test code = 9.0 mg/dL 8.6-10.6 5062553332) eGFR (test code = mL/min/1.73m2 7134313449) ZULEIMA (test code = ZULEIMA) Association of [...] tests). Lab Interpretation Abnormal (test code = 04881-1) General acute hospital GLUCOSE (AUTOMATED)2022-04-22 04:35:23 Test Item Value Reference Range Interpretation Comments POCT GLU (test code = 4739033947) 154 mg/dL 70-110 H Lab Interpretation (test code = Abnormal 93635-4) General acute hospital GLUCOSE (AUTOMATED)2022-04-22 03:44:33 Test Item Value Reference Range Interpretation Comments POCT GLU (test code = 0303425291) 166 mg/dL 70-110 H Lab Interpretation (test code = Abnormal 83169-3) [facility] CenterLawaic Acid Whole [id number] 03:11:51 Test Item Value Reference Range Interpretation Comments LACTIC ACID (test code = 2.04 mmol/L 0.50-2.20 5920584508) Lab Interpretation (test code = Normal 69096-7) [facility] (Na, K, Cl, CO2, Glucose, BUN, Creatinine, Ca)2022-04-22 02:17:22 Test Item Value Reference Range Interpretation Comments NA (test code = 134 mmol/L 135-145 L 4952095833) K (test code = 4.3 mmol/L 3.5-5.0 6235650386) CL (test code = 101 mmol/L 98-108 9455184774) CO2 TOTAL (test code = 10 mmol/L 23-31 L 6487734734) AGAP (test code = 2-16 H 1435752283) BUN (test code = 8 mg/dL 7-23 7717290492) GLUCOSE (test code = 128 mg/dL 70-110 H 1979788106) CREATININE (test code = 0.92 mg/dL 0.60-1.25 2326271617) CALCIUM (test code = 9.2 mg/dL 8.6-10.6 1712600454) eGFR (test code = mL/min/1.73m2 2256012029) ZULEIMA (test code = ZULEIMA) Association of [...] tests). Lab Interpretation Abnormal (test code = 00226-3) General acute hospital GLUCOSE (AUTOMATED)2022-04-22 02:16:37 Test Item Value Reference Range Interpretation Comments POCT GLU (test code = 4715692451) 132 mg/dL 70-110 H Lab Interpretation (test code = Abnormal 23289-8) General acute hospital GLUCOSE (AUTOMATED)2022-04-22 01:19:28 Test Item Value Reference Range Interpretation Comments POCT GLU (test code = 142 mg/dL 70-110 H Notifi ed Provider 2404588231) Lab Interpretation (test Abnormal code = 45199-2) [facility] CenterGlycosylated Hemoglobin (A1C)2022-04-22 01:01:17 Test Item Value Reference Range Interpretation Comments HGB A1C (test code = 10.5 % 4.0-5.7 H 4548-4) ZULEIMA (test code = ZULEIMA) Reference RangesNormal: <5.7%Prediabetes: 5.7 - 6.4%Diabetes: > 6.5% Lab Interpretation (test Abnormal code = 74623-3) [facility] CenterMagnesium Fyujn2637-57-83 00:42:52 Test Item Value Reference Range Interpretation Comments MAGNESIUM (test code = 3419450209) 1.9 mg/dL 1.7-2.4 Lab Interpretation (test code = Normal 02355-1) [facility] CenterPhosphorus Nybpd2183-00-33 00:42:32 Test Item Value Reference Range Interpretation Comments PHOSPHORUS (test code = 9949990306) 5.1 mg/dL 2.5-5.0 H Lab Interpretation (test code = Abnormal 08975-1) [facility] CenterAC PANEL 21 + LACTIC [id number] 00:14:12 Test Item Value Reference Range Interpretation Comments PH (test code = 7.32-7.42 L 9803693088) PCO2 SAKINA (test code = See_Comment L [Auto mated 7307667831) message] The sy stem which generated this result transmitted reference range : 41 - 51 mmHg. The reference range was not used to interpret this result as normal/abnormal . PO2 SAKINA (test code = See_Comment H [Autom ated 4002889259) message] The sy stem which generated this result transmitted reference range : 25 - 40 mmHg. The reference range was not used to interpret this result as normal/abnormal . HCO3 SAKINA (test code = See_Comment L [Auto mated 3004123757) message] The sy stem which generated this result transmitted reference range : 24 - 28 mEq/L. The reference range was not used to interpret this result as normal/abnormal . AC VBE(BEAKER) (test mEq/L code = 0148775385) THB SAKINA (test code = 16.5 g/dL 13.5-18.0 9503043827) %O2HB SAKINA (test code = 84.9 % 52.0-63.0 H 8543522346) %COHB SAKINA (test code = 0.3 % 0.0-1.5 2691639537) %METHB SAKINA (test code = 0.1 % 0.4-1.5 L 0538995742) VOL%O2 SAKINA (test code = 19.6 % 6.0-12.0 H 0477676691) NA (test code = 134 mmol/L 135-145 L 4343131897) K+ (test code = 3.7 mmol/L 3.5-5.0 4206832040) AC CA IONZ (test code = 5.30 mg/dL 4.50-5.30 9959064880) GLUCOSE (test code = 155 mg/dL 70-110 H 1127092301) LACTIC ACID (test code 2.34 mmol/L 0.50-2.20 H = 2653005350) Lab Interpretation Abnormal (test code = 03918-4) [facility] [id number] 23:48:43 Test Item Value Reference Interpretation Comments Range TROPONIN I (test 0.002 ng/mL See_Comment [Automated code = 9714730383) message] The system which generated this result [...] biotin. Lab Interpretation Normal (test code = 83341-7) [facility] CenterN-TERMINAL [id number] 23:45:26 Test Item Value Reference Range Interpretation Comments NT-proBNP (test code 38 pg/mL See_Comment [Autom ated = 8267738255) message] The system which generated this result transmitted reference range : <=125. The reference range was not used to interpret this result as normal/abnormal . ZULEIMA (test code = ZULEIMA) Biotin has been reported to cause a negative bias, interpret results relative to patient's use of biotin. Lab Interpretation Normal (test code = 64574-3) [facility] CenterCOMP. METABOLIC PANEL (62544)2022-04-21 23:45:16 Test Item Value Reference Range Interpretation Comments NA (test code = 134 mmol/L 135-145 L 3765274885) K (test code = 4.3 mmol/L 3.5-5.0 2238462500) CL (test code = 100 mmol/L 98-108 2052486088) CO2 TOTAL (test code = 8 mmol/L 23-31 L 3174206911) AGAP (test code = 2-16 H 8863423907) BUN (test code = 8 mg/dL 7-23 6882268882) GLUCOSE (test code = 169 mg/dL 70-110 H 7059037524) CREATININE (test code = 0.93 mg/dL 0.60-1.25 3255409668) TOTAL BILI (test code = 1.1 mg/dL 0.1-1.7 1889753688) CALCIUM (test code = 9.8 mg/dL 8.6-10.6 7772097992) T PROTEIN (test code = 8.2 g/dL 6.3-8.2 4265921731) ALBUMIN (test code = 5.0 g/dL 3.5-5.0 7214503304) ALK PHOS (test code = 106 U/L 34-122 0394572088) ALTv (test code = 64 U/L 5-50 H 1742-6) AST(SGOT) (test code = 47 U/L 13-40 H 9062607011) eGFR (test code = mL/min/1.73m2 9739955729) ZULEIMA (test code = ZULEIMA) Association of [...] tests). Lab Interpretation Abnormal (test code = 18174-3) [facility] CenterLIPASE2022-05-23 23:37:42 Test Item Value Reference Range Interpretation Comments LIPASE (test code = 4127858984) 106 U/L 0-220 Lab Interpretation (test code = Normal 64528-1) [facility] CenterPROTHROMBIN TIME / [id number] 23:30:44 Test Item Value Reference Range Interpretation Comments PROTIME PATIENT (test See_Comment [Auto mated message] code = 5964-2) The system [employer] generated this result transmitted ref erence range: 12.0 - 1 4.7 Seconds. The re ference range was not u sed to interpret this result as normal/abnor mal. INR (test code = 6301-6) Nor mal INR <1.1; Warfarin Therap eutic range 2.0 to 3. 0 or 2.5 to 3.5, dep ending upon the indica tions. Lab Interpretation (test Normal code = 74384-8) [facility] WITH [id number] 23:22:44 Test Item Value Reference Range Interpretation [...] (test code = 38.3 fL 38.5-51.6 L 22071-2) RDW-CV (test code = 12.3 % 12.1-15.4 788-0) PLT (test code = See_Comment H [Automated 777-3) message] The sy stem which generated this result transmitted reference range : 150 - 328 10*3/ ?L. The reference r oleg was not used to interpret this result as normal/abnormal . MPV (test code = 9.2 fL 9.8-13.0 L 01625-7) NRBC/100 WBC (test See_Comment [Automat ed code = 5685986189) message] The system which generated this result transmitted reference range : 0.0 - 10.0 /100 WBCs. The refer ence range was not u sed to interpret th is result as normal/abnormal . NRBC x10^3 (test code <0.01 See_Comment [Auto mated = 4748426920) message] The s ystem which generated this result transmitted reference range : 10*3/?L. The reference range was not used to interpret this result as normal/abnormal . GRAN MAT (NEUT) % 62.0 % (test code = 770-8) IMM GRAN % (test code 0.30 % = 3089935422) LYMPH % (test code = 29.7 % 736-9) MONO % (test code = 6.5 % 5905-5) EOS % (test code = 0.9 % 713-8) BASO % (test code = 0.6 % 706-2) GRAN MAT x10^3(ANC) 7.25 10*3/uL 1.99-6.95 H (test code = 1724015196) IMM GRAN x10^3 (test 0.04 10*3/uL 0.00-0.06 code = 3305767102) LYMPH x10^3 (test code 3.48 10*3/uL 1.09-3.23 H = 731-0) MONO x10^3 (test code 0.76 10*3/uL 0.36-1.02 = 742-7) EOS x10^3 (test code = 0.11 10*3/uL 0.06-0.53 711-2) BASO x10^3 (test code 0.07 10*3/uL 0.01-0.09 = 704-7) Lab Interpretation Abnormal (test code = 39139-0) [facility] CenterALBUMIN/CREATININE RATIO, URINE, RANDOM 2022-03-11 01:57:25 Test Item Value Reference Range Interpretation Comments CREATININE, URINE, 61.2 MG/DL NOT ESTAB RANDOM (test code = 2072) ALBUMIN, URINE, <0.2 MG/DL NOT ESTAB RANDOM (test code = 34567) CALC ALBUMIN/CREAT, <3 MG/G <30 Note: RND (test code = Albumin/Cre atinine 60222) ratio reference interval reflec ts ADA and NKF guideli amisha. COMPREHENSIVE METABOLIC [id number] 00:29:28 Test Item Value Reference Range Interpretation Comments GLUCOSE (test code = 413 MG/DL 70-99 H 2216) BUN (test code = 14 MG/DL 6-20 2207) CREATININE (test 0.81 MG/DL 0.80-1.40 code = 2213) eGFR (2020 CKD-EPI) 107 >60 (test code = 63694) ML/MIN/1.73 CALC BUN/CREAT (test 17 RATIO 6-28 code = 223) SODIUM (test code = 138 MEQ/L 734-260 7863) POTASSIUM (test code 4.2 MEQ/L 3.5-5.4 = 2227) CHLORIDE (test code 96 MEQ/L 95-107 = 2214) CARBON DIOXIDE (test 24 MEQ/L 19-31 code = 2205) CALCIUM (test code = 9.8 MG/DL 8.5-10.5 2208) PROTEIN, TOTAL (test 7.1 G/DL 6.1-8.3 code = 2228) ALBUMIN (test code = 4.2 G/DL 3.5-5.2 2200) CALC GLOBULIN (test 2.9 G/DL 1.9-3.7 code = 2239) CALC A/G RATIO (test 1.4 RATIO 1.0-2.6 code = 2233) BILIRUBIN, TOTAL 0.5 MG/DL See_Comment [Automated message] [...] = 54 U/L 5-50 H 2218) LIPID [id number] 00:29:28 Test Item Value Reference Range Interpretation [...] MOREINFORMATION , SEE CLIENT ANNOUNCE MENT AT [email or web address] [email or web address] RATIO LDL/HDL 2.33 RATIO <3.55 (test code = 2238) HEMOGLOBIN [id number] 03:12:57 Test Item Value Reference Range Interpretation Comments HEMOGLOBIN A1c (test 11.3 % 4.2-5.6 H AMERIC AN DIABETES code = 20591) ASSOCIATION IDELINES FOR HGB A1C: PREDIABETES/INC REASED [...] OTHERWIS E INDICATED, ALL TESTING PER FORMED ATCLINICAL PATH [facility], [facility]. [address] [place] [address] LAB[address]ORY DIRE CTOR: Anna MCKAY. CLIA NUMBER [id number] CAP ACCREDITATION N O. [id number] COMPREHENSIVE METABOLIC [id number] 04:51:05 Test Item Value Reference Range Interpretation Comments GLUCOSE (test code = 299 MG/DL 70-99 H 2216) BUN (test code = 15 MG/DL 6-20 2207) CREATININE (test 0.67 MG/DL 0.80-1.40 L code = 2214) eGFR (2020 CKD-EPI) 114 >60 (test code = 81554) ML/MIN/1.73 CALC BUN/CREAT (test 22 RATIO 6-28 code = 2235) SODIUM (test code = 143 MEQ/L 378-505 6441) POTASSIUM (test code 4.1 MEQ/L 3.5-5.4 = 8) CHLORIDE (test code 105 MEQ/L 95-107 = 2214) CARBON DIOXIDE (test 26 MEQ/L 19-31 code = 220) CALCIUM (test code = 9.3 MG/DL 8.5-10.5 [...] = 76 U/L 5-50 H 2218) LIPID [id number] 04:51:05 Test Item Value Reference Range Interpretation [...] MOREINFORMATION , SEE CLIENT ANNOUNCE MENT AT [email or web address] RISK RATIO LDL/HDL 1.47 RATIO <3.55 UNLESS O THERWISE (test code = 223) INDICATED , ALL TESTING PERFORMED [facility] [address] [place] [address] [facility] DIRECTOR: MELECIO GREEN M.D. CLIA NUMBER [id number] CAP ACCREDITATION N O. [id number] HEMOGLOBIN [id number] 02:53:45 Test Item Value Reference Range Interpretation Comments HEMOGLOBIN A1c (test 10.6 % 4.2-5.6 H AMERIC AN DIABETES code = 51283) ASSOCIATION IDELINES FOR HGB A1C: PREDIABETES/INC REASED [...] ALTERN ATE TESTING OR LABORATORY C ONSULTATION. Notes Date/Time Note Provider Source 2022-09-24 09:36:00 [id number] [facility] [address] [place] [address] PATIENT NAME: DANIEL LEHMAN ADMIT DATE: 09/24/22ACCOUNT NO: [id number] ROOM NO: AGE: 51 REPORT TYPE: OPERATIVE REPORT SEX: M ADMITTING PHYSICIAN: ATTENDING PHYSICIAN: Lukasz Saul MD OPERATION DATE: 09/24/2022 PROCEDURE: EGD. INDICATIONS: Persistent dyspepsia, nausea, vomiting, anorexia. POSTOPERATIVE: See below. Complexity; complex procedure, tolerance to anesthesia excellent. PROCEDURE IN DETAIL: The procedure with possible complications and alternativesincluding but not limited to possibility of bleeding, perforation tear, infection, sepsis, need for surgery, need for blood transfusion and anesthesia related problem and other fatalities explained to the patient and informed consent obtained. He was placed in the left lateral position. After appropriate level of anesthesia. Scope was passed. Esophageal mucosa in the proximal aspect appeared to be within normal range. Mid to dista l aspect esophagitis and retained food debris noted. As soon as the stomach was entered large gastric bezoar covered most of the stomach with almost no visualization ofthe mucosa. As a result, given the excessively high risk of aspiration. He was decompressedand the scope pulled out as soon as possible. Procedure has to be rescheduled with 2 days of clear liquid diet. IMPRESSION: Esophagitis, large gastric bezoar. PLAN:1. Proton pump inhibitor will be prescribed for him.2. Low residue diet.3. He will be rescheduled after 2 days of clear liquid diet. Hopefully, by that time bezoar will get smaller, all pass and we will be able to see better. COMPLICATIONS: None. The patient tolerated the procedure well. DISPOSITION: As above. Dictated By: Lukasz Saul MD Date Dictated: 09/24/2022 09:36:29 PATIENT NAME: DANIEL LEHMAN Date Transcribed: 09/24/2022 16:12:19AKAnna/Mamie #: [id number] ID: [id number] by Lukasz Saul MD On 10/01/2022 09:00:16 AM at 0900 PATIENT NAME: DANIEL LEHMAN [id number]:12:00L.[id number] i lable for patient zlklPBBTHGCGOPXDPU2216-37-30Y74:00:46"
[2023-10-25] MEDS ORDERED: IPRATROPIUM BROM 0.5MG/2.5ML ONE (16:00)
[2023-10-25] MEDS ORDERED: ALBUTEROL 2.5 MG/3 ML NEB SOL ONE (16:00)
[2023-10-25 16:22] LABS: Absolute Lymphocytes (CBC) 2.2 K/uL (0.7-4.9); Hematocrit 40.6 % (39.6-49.0); Lymphocytes % 26.9 % (15.3-44.8); MCV 89.1 fL (80-100); MPV 7.3 fL (7.6-11.3); Platelets 271 thou/uL (152-406); RBC Red Blood Cell Count 4.56 M/uL (4.33-5.43)
[2023-10-25 16:41] LABS: Protime INR 0.98
[2023-10-25 16:51] LABS: SARS-COV-2 RT PCR NEGATIVE (NEGATIVE)
[2023-10-25 18:15] LABS: Specific Gravity 1.019 (1.005-1.030); Urine Bilirubin NEGATIVE (Negative); Urine Blood Negative (Negative); Urine Clarity Clear (Clear); Urine Color Light-Yellow (Yellow); Urine Glucose 4+ (Over) (Negative); Urine Protein NEGATIVE (Negative); Urine Urobilinogen Normal (Normal); Urine pH 6.5 (5.0-7.0)
[2023-10-25 18:16] LABS: Urine Bacteria None Seen /HPF (<20); Urine RBC <5 /HPF (None Seen)
[2023-10-25] MEDS ORDERED: NA CHLORIDE 0.9% 500 ML ONE ×2 (18:24→20:44)
--- NOTE | 2023-10-25 18:36 | RAD REPORT ---
EXAM DESCRIPTION: RAD - Chest Pa And Lat (2 Views) - 10/25/2023 4:55 pm CLINICAL HISTORY: SOB COMPARISON: Chest Single View dated 11/04/2022; Chest Single View dated 03/17/2022; Chest Single View dated 03/10/2022; Chest Single View dated 02/22/2022 TECHNIQUE: PA and lateral views of the chest were obtained. FINDINGS: Left midlung streaky opacities/scarring, stable. The lungs are otherwise clear. Heart size is normal and central vasculature is within normal limits. No pleural effusion or pneumothorax seen. No acute bony finding noted. IMPRESSION: No acute cardiopulmonary process. Stable chronic changes suggestive of scarring in the l eft midlung.
[2023-10-25 19:05] LABS: Potassium 3.5 mEq/L (3.5-5.1)
[2023-10-25 19:13] LABS: Bilirubin Total 0.7 mg/dL (0.2-1.0)
[2023-10-25 19:14] LABS: Albumin 2.9 g/dL (3.4-5.0); Protein, Total 6.4 g/dL (6.4-8.2); Troponin High Sensitivity 9.2 (<58.9)
[2023-10-25] MEDS ORDERED: MORPHINE 4 MG/ML SYR ONE (20:44)
--- NOTE | 2023-10-25 21:06 | RAD REPORT ---
EXAM DESCRIPTION: CT - Abdomen Pelvis W Contrast - 10/25/2023 8:17 pm CLINICAL HISTORY: back pain. Fever COMPARISON: Abdomen Pelvis W Contrast dated 03/17/2022; Abdomen Pelvis W Contrast dated 06/24/2021 ; Chest For Pe Angio dated 10/25/2023 TECHNIQUE: Thin cut axial CT imaging of the abdomen and pelvis was performed following intravenous a dministration of 100 mL Isovue 300. Multiplanar reformats were generated and reviewed. All CT scans are performed using dose optimization technique as appropriate and may include automated exposure control or mA/KV adjustment according to patient size. FINDINGS: No suspicious findings in the lung bases. The liver, spleen, adrenal glands, and pancreas show no suspicious findings. Gallbladder and biliary tree are also without suspicious finding. Symmetric renal function is seen with no hydronephrosis or suspicious renal mass. No dilated bowel loops or bowel wall thickening. No free air, free fluid or inflammatory stranding. N o hernia, mass or bulky lymphadenopathy. The urinary bladder is without significant finding. No suspicious bony findings. IMPRESSION: No acute intra-abdominal process.
--- NOTE | 2023-10-25 21:10 | RAD REPORT ---
EXAM DESCRIPTION: CT - Chest For Pe Angio - 10/25/2023 8:16 pm CLINICAL HISTORY: back pain, shortness of breath COMPARISON: Chest For Pe Angio dated 02/20/2022 TECHNIQUE: Thin axial CT images of the chest were obtained following administration of 100 mL Isovue 370 IV contrast. Multiplanar reconstructions, and maximum intensity projection reconstructions were generated and reviewed. Exam utilizes a protocol for optimal evaluation of pulmonary arterial tree. All CT scans are performed using dose optimization technique as appropriate and may include automated exposure control or mA/KV adjustment according to patient size. FINDINGS: Pulmonary arteries are normal. No emboli or other suspicious finding. No acute or signific ant aorta findings. No mass or infiltrate in the lung parenchyma. Juxtapleural linear atelectatic changes or scarring. No pleural thickening or pleural effusion. No pneumothorax. No abnormal mediastinal or hilar masses or lymphadenopathy seen. 1 cm prevascular lymph node is benig n in appearance, possibly reactive/ inflammatory. No chest wall mass or abnormal axilliary lymphadeno mel. IMPRESSION: No evidence of acute central pulmonary emboli. Incidental findings as above.
--- NOTE | 2023-10-25 21:29 | ER ---
Nurse's Notes [facility] Name: Leandro Rand Age: 52 yrs Sex: Male : 1970 Arrival Date: 10/25/2023 Time: 14:49 Bed 19 Private MD: Diagnosis: Influenza due to unidentified influenza virus with other respiratory manifestations;Shortness of breath Presentation: 10/25 15:04 Chief complaint: Patient states: SOB,CONGESTION, FEVER AND BODY ACHES SINCE YESTERDAY. db COMPLAINS OF MIDDLE BACK PAIN. DENIES CHEST PAIN. Coronavirus screen: Client denies travel out of the [place] in the last 14 days. At this time, the client does not indicate any symptoms associated with coronavirus-19. Coronavirus screen: Vaccine status: Patient reports receiving the 2nd dose of the covid vaccine. Ebola Screen: Patient negative for fever greater than or equal to 101.5 degrees Fahrenheit, and additional compatible Ebola Virus Disease symptoms Patient denies exposure to infectious person. Patient denies travel to an Ebola-affected area in the 21 days before illness onset. No symptoms or risks identified at this time. Initial Sepsis Screen: Does the patient meet any 2 criteria? No. Patient's initial sepsis screen is negative. Does the patient have a suspected source of infection? No. Patient's initial sepsis screen is negative. Risk Assessment: Do you want to hurt yourself or someone else? Patient reports no desire to harm self or others. Onset of symptoms was October 25, 2023 at 15:09. 15:04 Method Of Arrival: Ambulatory db 15:04 Acuity: FELI 2 db Triage Assessment: 15:09 General: Appears in no apparent distress. comfortable, Behavior is calm, cooperative. db Pain: Denies pain. Neuro: Level of Consciousness is awake, alert, obeys commands, Oriented to person, place, time, situation. Respiratory: Airway is patent Respiratory effort is even, unlabored. Respiratory: Reports shortness of breath at rest on exertion cough that is. Historical: - Allergies: 15:09 Segluromet; db 15:09 Synjardy; db - PMHx: 15:09 COVID-19; Diabetes - IDDM; Diabetes - NIDDM; Hyperlipidemia; db - PSHx: 15:09 Left first finger amputation; db - Immunization history:: Adult Immunizations unknown. - Social history:: Smoking status: Patient denies any tobacco usage or history of. Screenin:12 [facility] ED Fall Risk Assessment (Adult) History of falling in the last 3 months, db including since admission No falls in past 3 months (0 pts) Confusion or Disorientation No (0 pts) Intoxicated or Sedated No (0 pts) Impaired Gait No (0 pts) Mobility Assist Device Used No (0 pt) Altered Elimination No (0 pt) Score/Fall Risk Level 0 - 2 = Low Risk Oriented to surroundings, Maintained a safe environment. Abuse screen: Denies threats or abuse. Denies injuries from another. Nutritional screening: No deficits noted. Tuberculosis screening: No symptoms or risk factors identified. Assessment: 15:45 General: Appears ill, obese, Behavior is cooperative, appropriate for age. Pain: ko1 Complains of pain in generalized. Neuro: Level of Consciousness is awake, alert, obeys commands, Oriented to person, place, time, situation, Appropriate for age. Cardiovascular: No deficits noted. Respiratory: Reports shortness of breath cough that is. GI: No deficits noted. : No deficits noted. EENT: No deficits noted. Derm: No deficits noted. Musculoskeletal: No deficits noted. 19:09 Reassessment: Patient appears in no apparent distress at this time. Patient and/or jb4 family updated on plan of care and expected duration. Pain level reassessed. Patient is alert, oriented x 3, equal unlabored respirations, skin warm/dry/pink. Pt remains on oxygen. 20:00 Reassessment: Patient appears in no apparent distress at this time. Patient and/or jb4 family updated on plan of care and expected duration. Pain level reassessed. Patient is alert, oriented x 3, equal unlabored respirations, skin warm/dry/pink. 21:00 Reassessment: Patient appears in no apparent distress at this time. Patient and/or jb4 family updated on plan of care and expected duration. Pain level reassessed. Patient is alert, oriented x 3, equal unlabored respirations, skin warm/dry/pink. 22:15 Reassessment: Patient appears in no apparent distress at this time. Patient and/or jb4 family updated on plan of care and expected duration. Pain level reassessed. Patient is alert, oriented x 3, equal unlabored respirations, skin warm/dry/pink. D/c pending pt's 's return with portable O2. 23:02 Reassessment: Patient appears in no apparent distress at this time. Patient and/or jb4 family updated on plan of care and expected duration. Pain level reassessed. Patient is alert, oriented x 3, equal unlabored respirations, skin warm/dry/pink. Vital Signs: 15:04 BP 122 / 60; Pulse 85; Resp 18; Temp 98.7; Pulse Ox 87% ; Weight 117.93 kg; Height 5 db ft. 7 in. ; 15:33 Pulse 85; Resp 18; Pulse Ox 98% on 4 lpm NC; db 15:45 BP 141 / 54; Pulse 74; Resp 16; Pulse Ox 97% on 3 lpm NC; ko1 17:30 BP 142 / 56; Pulse 67; Resp 16; Pulse Ox 98% on 3 lpm NC; ko1 18:48 BP 155 / 58; Pulse 84; Resp 18; Pulse Ox 96% on 3 lpm NC; ko1 19:14 BP 138 / 60; Pulse 80; Resp 20; Pulse Ox 96% on 3 lpm NC; jb4 20:16 BP 126 / 60; Pulse 90; Resp 18; Pulse Ox 95% on R/A; jb4 21:15 BP 127 / 54; Pulse 99; Resp 16; Pulse Ox 93% on R/A; jb4 22:14 BP 116 / 46; Pulse 84; Resp 16; Pulse Ox 94% on 3 lpm NC; jb4 23:02 BP 120 / 73; Pulse 101; Resp 18; Pulse Ox 94% on 3 lpm NC; jb4 15:04 Body Mass Index 40.72 (117.93 kg, 170.18 cm) db ED Course: 14:51 Patient arrived in ED. as 15:09 Triage completed. db 15:09 Arm band placed on left wrist. db 15:10 Cholo Johnson PA is PHCP. cp 15:10 Cholo Sutton MD is Attending Physician. cp 15:33 Oxygen administration via nasal cannula \T\ 4L/min Response to oxygen therapy: symptoms db improved. 15:45 Maggy Zavala, RN is Primary Nurse. ko1 15:45 Patient has correct armband on for positive identification. Bed in low position. Call ko1 light in reach. Side rails up X2. Client placed on continuous cardiac and pulse oximetry monitoring. NIBP monitoring applied. panel monitor on. Door closed. Noise minimized. Lights dimmed. Warm blanket given. 15:45 Inserted saline lock: 20 gauge in right forearm, using aseptic technique. Blood ko1 collected. 16:57 XRAY Chest Pa And Lat (2 Views) In Process Unspecified. EDMS 17:35 Urinalysis W/Microscopic Sent. [facility] 18:07 Urinalysis W/Microscopic Sent. ko1 20:18 CT Chest For PE Angio In Process Unspecified. EDMS 20:19 CT Abd/Pelvis - IV Contrast Only In Process Unspecified. EDMS 23:05 No provider procedures requiring assistance completed. IV discontinued, intact, jb4 bleeding controlled, No redness/swelling at site. Pressure dressing applied. Administered Medications: 15:58 Drug: DuoNeb Nebulize (2.5 mg - 0.5 mg) 3 ml Nebulizer once Route: Nebulizer; ko1 18:07 Drug: NS 0.9% IV 500 ml IV at bolus once Route: IV; Rate: bolus; Site: right forearm; ko1 20:36 Drug: morphine IVP or IV 4 mg IVP once over 4 mins Route: IVP; Infused Over: 4 mins; jb4 Site: right antecubital; 20:37 Drug: NS 0.9% IV 500 ml IV at bolus once Route: IV; Rate: bolus; Site: right jb4 antecubital; 21:27 Drug: Ketorolac IVP 15 mg IVP once Route: IVP; Site: right forearm; jb4 21:36 Drug: AZITHromycin PO 500 mg PO once Route: PO; jb4 21:36 Drug: Oseltamivir PO 75 mg PO once Route: PO; jb4 Medication: 23:05 VIS not applicable for this client. jb4 Outcome: 21:29 Discharge ordered by . loc 23:04 Discharged to home via wheelchair, with family, jb4 23:04 Condition: stable 23:04 Discharge instructions given to patient, family, Instructed on discharge instructions, follow up and referral plans. medication usage, Demonstrated understanding of instructions, follow-up care, medications, Prescriptions given X 5 23:05 Patient left the ED. jb4 Signatures: Dispatcher [employer] EDSD Cholo Sutton MD MD cha Martinez, Amelia as Cholo Johnson PA PA cp Bryson, James, RN RN jb4 Maggy Zavala, MARILU RN ko1 Leann Sage, RN RN db Corrections: (The following items were deleted from the chart) 15:13 15:04 Chief complaint: Patient states: CONGESTION, FEVER AND BODY ACHES SINCE YESTERDAY db db 15:33 15:04 BP 122 / 60; Pulse 22bpm; Resp 18bpm; Pulse Ox 87%; Temp 98.7F; 117.93 kg; Height db 5 ft. 7 in.; BMI: 40.7; db 16:12 15:58 SARS-COV-2 RT PCR+MOL.LAB.BRZ drawn and sent. ko1 EDMS
--- NOTE | 2023-10-25 21:29 | EDPHYS ---
Physician Documentation [facility] Name: Leandro Rand Age: 52 yrs Sex: Male : 1970 Arrival Date: 10/25/2023 Time: 14:49 Bed 19 Private MD: ED Physician Cholo Sutton HPI: 10/25 15:30 This 52 yrs old Male presents to ER via Ambulatory with complaints of Fever, cp body aches, Shortness Of Breath. 15:30 The patient has shortness of breath at rest. cp 15:30 Onset: The symptoms/episode began/occurred yesterday, and became worse today. Duration: cp The symptoms are continuous, and are steadily getting worse. Associated signs and symptoms: Pertinent positives: non-productive cough, fever, upper back pain, Pertinent negatives: chest pain, diaphoresis. 21:22 translates and reports multiple family members flu like symptoms and family member cp tested positive for flu. Patient has home oxygen to use. Historical: - Allergies: 15:09 Segluromet; db 15:09 Synjardy; db - PMHx: 15:09 COVID-19; Diabetes - IDDM; Diabetes - NIDDM; Hyperlipidemia; db - PSHx: 15:09 Left first finger amputation; db - Immunization history:: Adult Immunizations unknown. - Social history:: Smoking status: Patient denies any tobacco usage or history of. ROS: 15:35 Constitutional: Negative for fever, poor PO intake, cp 15:35 Cardiovascular: Negative for chest pain, edema, palpitations, cp 15:35 Respiratory: Positive for cough, shortness of breath, Negative for wheezing, 15:35 Eyes: Negative for injury, pain, redness, and discharge, cp 15:35 ENT: Negative for drainage from ear(s), ear pain, difficulty swallowing, difficulty handling secretions, 15:35 Abdomen/GI: Negative for abdominal pain, vomiting, diarrhea, constipation, 15:35 : Negative for urinary symptoms, cp 15:35 Neuro: Negative for altered mental status, syncope, 15:35 All other systems are negative, Exam: 15:40 Constitutional: The patient appears in no acute distress, alert, awake, cp non-diaphoretic, non-toxic, well developed, well nourished, obese, 15:40 Head/Face: Normocephalic, atraumatic. cp 15:40 Eyes: Periorbital structures: appear normal, Conjunctiva: normal, no exudate, no injection, Sclera: no appreciated abnormality, Lids and lashes: appear normal, bilaterally, 15:40 ENT: External ear(s): are unremarkable, Nose: is normal, Mouth: Lips: moist, Oral mucosa: pink and intact, moist, Posterior pharynx: Airway: no evidence of obstruction, patent, 15:40 Neck: ROM/movement: is normal, is supple, without pain, no range of motions limitations, no meningismus, 15:40 Chest/axilla: Inspection: normal, Palpation: is normal, no crepitus, no tenderness, 15:40 Cardiovascular: Rate: normal, Rhythm: regular, Edema: is not appreciated, JVD: is not appreciated, 15:40 Respiratory: the patient does not display signs of respiratory distress, Respirations: labored breathing, that is mild, Breath sounds: decreased breath sounds, that are mild, throughout, stridor, is not appreciated, + upper airway congestion. wheezing: is not appreciated, 15:40 Abdomen/GI: Inspection: obese Palpation: abdomen is soft and non-tender, in all quadrants, 15:40 Back: pain, that is moderate, of the upper back, ROM is normal, 15:40 Skin: cellulitis, is not appreciated, no rash present. 15:40 Neuro: Orientation: to person, place \T\ time. Mentation: is normal, Motor: moves all fours, strength is normal, Sensation: is normal, 16:08 ECG was reviewed by the Attending Physician. cp Vital Signs: 15:04 BP 122 / 60; Pulse 85; Resp 18; Temp 98.7; Pulse Ox 87% ; Weight 117.93 kg; Height 5 db ft. 7 in. ; 15:33 Pulse 85; Resp 18; Pulse Ox 98% on 4 lpm NC; db 15:45 BP 141 / 54; Pulse 74; Resp 16; Pulse Ox 97% on 3 lpm NC; ko1 17:30 BP 142 / 56; Pulse 67; Resp 16; Pulse Ox 98% on 3 lpm NC; ko1 18:48 BP 155 / 58; Pulse 84; Resp 18; Pulse Ox 96% on 3 lpm NC; ko1 19:14 BP 138 / 60; Pulse 80; Resp 20; Pulse Ox 96% on 3 lpm NC; jb4 20:16 BP 126 / 60; Pulse 90; Resp 18; Pulse Ox 95% on R/A; jb4 21:15 BP 127 / 54; Pulse 99; Resp 16; Pulse Ox 93% on R/A; jb4 22:14 BP 116 / 46; Pulse 84; Resp 16; Pulse Ox 94% on 3 lpm NC; jb4 23:02 BP 120 / 73; Pulse 101; Resp 18; Pulse Ox 94% on 3 lpm NC; jb4 15:04 Body Mass Index 40.72 (117.93 kg, 170.18 cm) db MDM: 15:15 Patient medically screened. pricilla 16:00 Differential diagnosis: CHF exacerbation, pneumonia, Pneumothorax pulmonary edema, cp Pulmonary Embolism Sepsis Unstable Angina. 21:28 Data reviewed: vital signs, nurses notes, lab test result(s), EKG, radiologic studies, cp CT scan, plain films. 21:28 Consideration of Admission/Observation Escalation of care including cp admission/observation considered. I considered the following discharge prescriptions or medication management in the emergency department Medications were administered in the Emergency Department. See MAR. Independent interpretation of the following test(s) in the Emergency Department EKG: See my EKG interpretation above. Care significantly affected by the following chronic conditions: Diabetes, Obesity. Counseling: I had a detailed discussion with the patient and/or guardian regarding the historical points, exam findings, and any diagnostic results supporting the discharge/admit diagnosis, lab results, radiology results, the need for outpatient follow up, a family practitioner, to return to the emergency department if symptoms worsen or persist or if there are any questions or concerns that arise at home. ED course: VSS. Patient has home oxygen for use as needed. Will discharge to home for continued monitoring. 10/25 15:24 Order name: Blood Culture Adult (2) 10/25 15:24 Order name: CBC with Diff; Complete Time: 16:36 10/25 16:36 Interpretation: Normal except: HGB 13.2; MPV 7.3. 10/25 15:24 Order name: CMP; Complete Time: 19:52 10/25 19:53 Interpretation: Normal except: GLUC 200. 10/25 15:24 Order name: Lactate w/ 2H reflex if indic.; Complete Time: 17:10 10/25 17:10 Interpretation: Abnormal: LAC 2.3. 10/25 15:24 Order name: Protime (+inr); Complete Time: 17:10 10/25 15:24 Order name: Ptt, Activated; Complete Time: 17:10 10/25 15:24 Order name: Troponin High Sensitivity; Complete Time: 19:52 10/25 15:24 Order name: BNP; Complete Time: 19:52 10/25 16:12 Order name: COVID-19/FLU A+B; Complete Time: 17:10 EDMS 10/25 17:10 Order name: Urinalysis W/Microscopic; Complete Time: 18:21 10/25 18:21 Interpretation: Normal except: UGLUC 4+ (Over). 10/25 20:51 Order name: Lactate Sepsis 2 HR Follow-up; Complete Time: 21:11 EDMS 10/25 15:26 Order name: XRAY Chest Pa And Lat (2 Views); Complete Time: 18:47 10/25 19:55 Order name: CT Chest For PE Angio; Complete Time: 21:11 10/25 20:04 Order name: CT Abd/Pelvis - IV Contrast Only; Complete Time: 21:11 10/25 15:24 Order name: EKG; Complete Time: 15:24 10/25 15:24 Order name: Accucheck; Complete Time: 18:08 10/25 15:24 Order name: Cardiac monitoring; Complete Time: 15:45 10/25 15:24 Order name: EKG - Nurse/Tech; Complete Time: 16:22 10/25 15:24 Order name: IV Saline Lock - Large Bore; Complete Time: 16:22 10/25 15:24 Order name: Labs collected and sent; Complete Time: 16:22 10/25 15:24 Order name: O2 Per Protocol; Complete Time: 15:45 10/25 15:24 Order name: O2 Sat Monitoring; Complete Time: 15:45 10/25 15:24 Order name: Vital Signs; Complete Time: 18:08 10/25 17:09 Order name: Misc. Order: green top; Complete Time: 18:07 sp EC:08 Rate is 76 beats/min. Rhythm is regular. RI interval is normal. QRS interval is normal. cp QT interval is normal. Interpreted by me. Reviewed by me. Administered Medications: 15:58 Drug: DuoNeb Nebulize (2.5 mg - 0.5 mg) 3 ml Nebulizer once Route: Nebulizer; ko1 18:07 Drug: NS 0.9% IV 500 ml IV at bolus once Route: IV; Rate: bolus; Site: right forearm; ko1 20:36 Drug: morphine IVP or IV 4 mg IVP once over 4 mins Route: IVP; Infused Over: 4 mins; jb4 Site: right antecubital; 20:37 Drug: NS 0.9% IV 500 ml IV at bolus once Route: IV; Rate: bolus; Site: right jb4 antecubital; 21:27 Drug: Ketorolac IVP 15 mg IVP once Route: IVP; Site: right forearm; jb4 21:36 Drug: AZITHromycin PO 500 mg PO once Route: PO; jb4 21:36 Drug: Oseltamivir PO 75 mg PO once Route: PO; jb4 Disposition Summary: 10/25/23 21:29 Discharge Ordered Notes: Location: Home cp Problem: new cp Symptoms: have improved cp Condition: Stable cp Diagnosis - Influenza due to unidentified influenza virus with other respiratory manifestations cp - Shortness of breath cp Followup: cp - With: Private Physician - When: 2 - 3 days - Reason: Recheck today's complaints Discharge Instructions: - Discharge Summary Sheet cp - Influenza, Adult cp - Shortness of Breath, Adult cp Forms: - Medication Reconciliation Form cp - Thank You Letter cp - Antibiotic Education cp - Prescription Opioid Use cp - Patient Portal Instructions cp - Leadership Thank You Letter cp Prescriptions: - Bromfed DM 2-30-10 mg/5 mL Oral syrup - administer 10 milliliter ORAL route every 6 hours as needed for cold symptoms; cp 240 milliliter; Refills: 0, Product Selection Permitted - Albuterol Sulfate 2.5 mg /3 mL (0.083 %) Inhalation Solution for Nebulization - inhale 1 unit NEBULIZATION route every 6-8 hours As needed; 1 Pack; Refills: 0, cp Product Selection Permitted - Diclofenac Sodium 75 mg Oral Tablet Sustained Release - take 1 tablet ORAL route 2 times per day; 30 tablet; Refills: 0, Product cp Selection Permitted - Zithromax Z-Sander 250 mg Oral Tablet - take 1 tablet ORAL route once daily for 3 days; 3 tablet; Refills: 0, Product cp Selection Permitted - Tamiflu 75 mg Oral capsule - take 1 tablet ORAL route every 12 hours for 5 days; 10 tablet; Refills: 0, cp Product Selection Permitted Signatures: Dispatcher [employer] EDMS Cholo Sutton MD MD cha Pinkerton, Shawna sp Page, Corey, PA PA cp Bryson, James, RN RN jb4 Maggy Zavala RN RN ko1 Leann Sage RN RN db Corrections: (The following items were deleted from the chart) 16:12 15:24 Influenza Screen (A \T\ B)+BA.LAB.BRZ ordered. EDMS EDMS 16:12 15:24 SARS-COV-2 RT PCR+MOL.LAB.BRZ ordered. EDMS EDMS
[2023-10-25] MEDS ORDERED: KETOROLAC 30 MG/ML INJ ONE (21:34)
[2023-10-25] MEDS ORDERED: OSELTAMIVIR 75 MG CAP PO ONE (21:46)
[2023-10-25] MEDS ORDERED: AZITHROMYCIN 250 MG TAB ONE (21:47)
[2023-10-25 23:35] VITALS: TEMP 98.7
[2023-10-25 23:48] VITALS: O2SAT 94
[2023-10-25 23:50] VITALS: BP 120/73
--- NOTE | 2023-10-29 15:32 | EKG ---
Test Date: 2023-10-25 Test Time: 16:05:17 Peer Health Promoter: NAKUL MEASUREMENT RESULTS: Intervals: Rate: 76 [place]: 126 QRSD: 74 QT: 396 QTc: 445 [place]: P: 44 [place]: 126 QRS: 23 T: 20 INTERPRETIVE STATEMENTS: Normal sinus rhythm Normal ECG Compared to ECG 11/04/2022 18:22:29 Sinus tachycardia no longer present Right-axis deviation no longer present Myocardial infarct finding no longer present Electronically Signed On 10-29-23 15:17:35 MENTAL HEALTH AIDE by Ceasar Nguyen
== END 2023-10-25 23:05 | disposition home or self-care (01) ==
LOC: ER 14:49
DX: J11.1 Influenza due to unidentified influenza virus with other respiratory manifestations (principal); Z88.8 Allergy status to other drugs, medicaments and biological substances
CPT/HCPCS: 93005; 87040 ×2; 85025; 81001; 36415; 85610; 83605 ×2; 85730; 84484; 80053; 83880; 0240U; 71275; 74177; 71046; 94640; 99285; Q9967; J7613; J7644; J7040 ×2

== ENCOUNTER 2023-10-27 04:00 | Inpatient (IN) | payer OTHER ==
--- OUTSIDE RECORDS SUMMARY | 2023-10-27 04:07 | XMS REPORT | Continuity of Care Document ---
:1970 Author Organization [facility] t Address [address] [facility]. [address] [place] [address] Care Team Providers Name Role Phone ANSLEY [...] Gerson Rubin MD Attending Clinician Doctor Unassigned, [place] Attending Clinician Unavailable Marlene Brown Attending Clinician CHOLO LOVE Admitting Clinician Unavailable Kate ARRIETA, Cholo Admitting Clinician GERSON PALOMINO Admitting Clinician Unavailable Sang Rey Admitting Clinician Unavailable SACHIN MCALLISTER Admitting Clinician Unavailable Sachin Mcallister DO Admitting Clinician Physician, No Primary or Family Admitting Clinician Unavaila ble Payers Payer Name Policy Type Policy Number Effective Date Expiration Date Kelsey NIEVES [facility] 9 [id number] 2023 00:00:00 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 Problems Condition Condition Condition [...] rative rative 00:00: - diabetic diabetic 00 Pen Rider a retinopath retinopath l y of both [...] fibrillati 00 Me dical on) on) Branch CHAPARRO CHAPARRO Disease Active 2021-11 Univers (obstructi (obstructi [...] rs active active ity of problems problems [facility] Allergies, Adverse Reactions, Alerts Allergy Allergy Status [...] Empaglif Propensi Active Other 2021-11 DKA Maisha lozin ty to 2-08 Seybold adverse 00:00: - reaction 00 Externa s l No Known DA Active U 2021-11 [facility] Allergie 0-24 [place] s 00:00: d 00 Medical [place] NO KNOWN Drug Active Univers ALLERGIE Class ity of S [facility] Social History Social Habit Start Date Stop Date Quantity Comments Source History of tobacco Passive smoker Un iversity of use [facility] Gender identity Maisha mcdaniel - External Sexual orientation Maisha Moy - External Alcohol intake 2023-04-17 2023-04-17 Ex-drinker Maisha zavala - 00:00:00 00:00:00 (finding) External History of Social 2023-04-02 2023-04-02 Maisha Seybold - function 00:00:00 00:00:00 External Tobacco use and 2023-04-02 2023-04-02 Smokeless Maisha Goddard ybold - exposure 00:00:00 00:00:00 tobacco non-user External Exposure to 2022-11-02 2022-11-12 Not sure [facility]-CoV-2 (event) 00:00:00 00:35:00 [facility] Sex Ass[birth year] At [birth year] Maisha Goddard ybold - 00:00:00 00:00:00 External Smoking Status Start Date Stop Date Source Never smoked tobacco Maisha Seyb old - External Ex-smoker 2022-09-03 00:00:00 2022-09-03 00:00:00 [facility] Medications Ordered Filled Start Stop Current Ordering Indication Dosage Frequency Signature Comments Components Source Medication Medication Date Date Medication? Clinician (SIG) Name Name Aspirin 81 Yes 81mg Take 1 Kelse y MG oral 5-19 tablet (81 Seybol d Chewable 08:32: mg total) - Tablet 54 by mouth Externa daily l OZEMPIC Yes [id number] .25mg Inject Maisha (0.25 or 5-19 3 0.25 mg Seybold 0.5 00:00: into the - mg/dose) 2 00 skin once Exte rna mg/3 mL SQ a week If l Solution tolerated Pen-Injecto after 4 r weeks, increase to 0.5mg weekly Metformin Yes [id number] 1000mg Take 1 Maisha HCl 1000 MG 5-19 3 tablet Seybol d oral Tablet 00:00: (1,000 mg - 00 total) by Externa mouth in l the morning and 1 tablet (1,000 mg total) in the evening. Take with meals. Atorvastati Yes [id number] 40mg Take 1 Maisha n Calcium 5-19 3 tablet (40 Seyb old 40 MG oral 00:00: mg total) - Tablet 00 by mouth Externa daily l Insulin Yes [id number] Use as K elsey Aspart 5-19 3 directed Seybold (NovoLOG 00:00: three - FlexPen) 00 times Externa 100 UNIT/ML daily, l subcutaneou inject 24 s Solution units TID Pen-injecto plus r sliding scale. Max daily dose 80 units Insulin Yes [id number] Inject 35 Maisha Detemir 5-19 3 units Seybold (Levemir 00:00: twice - FlexPen) 00 daily Externa 100 UNIT/ML l subcutaneou s Solution Pen-injecto r Insulin Pen Yes [id number] Inject Maisha Needle 31G 5-19 3 insulin 5 Seyb old X 5 MM does 00:00: times - not apply 00 daily Externa Misc l Insulin 2022- No [id number] Inject 35 Maisha Detemir 5-19 05-19 3 units Seybold (Levemir) 00:00: 00:00 twice dominguez - 100 UNIT/ML 00 :00 Externa subcutaneou l s Solution Insulin Pen 2022- No [id number] Inject Maisha Needle 31G 5-19 05-19 3 insulin 5 Sey bold X 5 MM does 00:00: 00:00 times - not apply 00 :00 daily Externa Misc l Budesonide, Yes [id number] .5mg Take 2 mL Maisha Inhalation, 5-16 (0.5 mg Seybo ld 0.5 MG/2ML 00:00: total) by - inhalation 00 nebulizati Ext tammi Suspension on 2 times l daily OZEMPIC 2022- No [id number] .25mg Inject Maisha (0.25 or 5-15 05-19 [...] Tablet 56 by mouth Externa daily l Albuterol Yes [id number] 1.25mg Q.25D Take 3 mL Maisha Sulfate 5-10 (1.25 mg Seybold 1.25 MG/3ML 00:00: total) by - inhalation 00 nebulizati Ext tammi Inhalant on every 6 l Solution hours as needed for wheezing Amoxicillin Yes [id number] 1{tbl} Take 1 Maisha -Pot 5-10 tablet by Seybold Clavulanate 00:00: mouth 2 - 875-125 MG 00 times Externa oral Tablet daily l Furosemide 2022-0 Yes [id number] 20mg Take 1 K elsey (Lasix) 20 5-10 tablet (20 Sey bold MG oral 00:00: mg total) - Tablet 00 by mouth Externa daily l Metoprolol 0 Yes [id number] 25mg Take 25 mg Maisha Succinate 5-10 by mouth Seybol d 25 MG oral 00:00: daily - Capsule ER 00 Externa 24 Hour l Sprinkle Lisinopril 0 Yes [id number] 5mg Take 1 K elsey 5 MG oral 5-10 tablet (5 Seybo ld Tablet 00:00: mg total) - 00 by mouth Externa daily l Potassium Yes [id number] 20meq Take 1 K elsey Chloride 5-10 tablet (20 Seybo ld Lanie ER 20 00:00: mEq total) - MEQ oral 00 by mouth Externa Tab CR daily l tablet Metoprolol Yes 25mg Take 1 Kelse y Succinate 5-10 tablet (25 Seyb old 25 MG oral 00:00: mg total) - TABLET SR 00 by mouth Pen Rider a 24 HR daily l Albuterol Yes [id number] 1.25mg Q.25D Take 3 mL Maisha Sulfate 5-10 (1.25 mg Seybold 1.25 MG/3ML 00:00: total) by - inhalation 00 nebulizati Ext tammi Inhalant on every 6 l Solution hours as needed for wheezing Amoxicillin 0 Yes [id number] 1{tbl} Take 1 Maisha -Pot 5-10 tablet by Seybold Clavulanate 00:00: mouth 2 - 875-125 MG 00 times Externa oral Tablet daily l Budesonide, 0 Yes [id number] .5mg Take 2 mL Maisha Inhalation, 5-10 (0.5 mg Seybo ld 0.5 MG/2ML 00:00: total) by - inhalation 00 nebulizati Ext tammi Suspension on 2 times l daily Insulin Yes Inject per Maeve ey Aspart Prot 5-10 sliding Seybo ld & Aspart 00:00: scale - (NovoLOG 00 Externa 70/30 l FlexPen ReliOn) (70-30) 100 UNIT/ML subcutaneou s Suspension Pen-injecto r Insulin Yes inject 30 Kelse y Glargine 5-10 units Seybold (Lantus 00:00: daily - SoloStar) 00 Externa 100 UNIT/ML l subcutaneou s Solution Pen-injecto r Furosemide Yes [id number] 20mg Take 1 K elsey (Lasix) 20 5-10 tablet (20 Sey bold MG oral 00:00: mg total) - Tablet 00 by mouth Externa daily l Metoprolol Yes [id number] 25mg Take 25 mg Maisha Succinate 5-10 by mouth Seybol d 25 MG oral 00:00: daily - Capsule ER 00 Externa 24 Hour l Sprinkle Lisinopril Yes [id number] 5mg Take 1 K elsey 5 MG oral 5-10 tablet (5 Seybo ld Tablet 00:00: mg total) - 00 by mouth Externa daily l Potassium Yes [id number] 20meq Take 1 K elsey Chloride 5-10 tablet (20 Seybo ld Lanie ER 20 00:00: mEq total) - MEQ oral 00 by mouth Externa Tab CR daily l tablet Insulin 2022- No [id number] Inject 30 Maisha Detemir 5-09 03-19 3 units Seybold (Levemir) 00:00: 00:00 daily. - 100 UNIT/ML 00 :00 Increase Exte rna subcutaneou dosage by l s Solution 2 units every 2 days until fasting glucose less than 140 or better. Max daily dose of 60 units Insulin 2022- No [id number] Use as Maisha Aspart 5-10 -19 3 directed Seybold (NovoLOG 00:00: 00:00 three - FlexPen) 00 :00 times Externa 100 UNIT/ML daily, l subcutaneou inject 10 s Solution units TID Pen-injecto plus r sliding scale. Max daily dose 60 units predniSONE 3-0 2023- No [id number] 40mg Take 4 Maisha (DELTASONE) 5-10 05-16 [...] by mouth Externa Delayed daily l Response [place]-3-aci 2022-0 Yes 1g Take 1 Maeve ey [...] 2 Ext tammi Tablet times l daily [place]-3-aci 0 Yes 1g Take 1 Maeve ey [...] - 00 by mouth Externa daily l [place]-3-aci 0 Yes 1g Take 1 Maeve ey [...] by mouth ity of tablet 15:36: daily. [place] 13 Medical Branch spironolact 2021-11 Yes 25mg [...] mouth 2 ity of tablet 15:36: (two) [place] 13 times Medical daily. Branch atorvastati 2021-11- No 40mg Take 40 mg Univers n 20 mg 2-14 12-14 by mouth ity of tablet 11:58: 00:00 at [place] 50 :00 bedtime. Medical Branch famotidine 2021-11- No 40mg Take 40 mg Univers 40 mg 2-14 12-14 by mouth ity of tablet 11:58: 00:00 daily. [place] 50 :00 Medical Branch metoclopram 2021-11 No 10mg 10 mg, Uni vers nixon HCl 01-12 Slow IV ity of (REGLAN) 19:45: 17:59 Push, Q6H, [place] injection 00 :00 8 doses, Medica l 10 mg First dose Branch on Thu11/11/22 at 1345, Last dose on [facility] 11/13/22 at 0600, Routine potassium 2021-11 [...] mEq 00 :00 First dose Medical on [facility] Branch 11/11/22 at 0815, Last dose on [...] dose, On Medic al RTU 10 mEq [facility] 11/10/22 at 1745, Administer over 60 Minutes, 100 mL potassium 2021-11 No 10meq 10 mEq, IV Univers chloride in 01-11 Piggyback, i ty of water 10 22:00: 22:59 ONCE, 1 [place] mEq/100 mL 00 :00 dose, On Medic al RTU 10 mEq [facility] 11/10/22 at 1600, Administer over 60 [...] [place] 40 mEq 00 :00 dose, On [facility] 11/10/22 at 0945, Routine insulin 2021-11 Yes 10U 10 Units, Unive rs glargine 01-11 Subcutaneo ity o f (LANTUS 15:00: us, DAILY, [place] U-100) 00 First dose Medical injection on [facility] 10 Units 11/10/22 at 0900, Until Discontinu ed, Routine aspirin 2021-11 Yes 81mg 81 mg, Univers chewable 01-11 Oral, ity of tablet 81 15:00: DAILY, [place] mg 00 First dose Medical on [facility] 11/10/22 at 0900, Until Discontinu ed, Routine Sliding 2021-11 Yes Subcutaneo Univ ers Scale 2-12 us, TID ity of Insulin - 14:00: MEALS+HS, Alex as Lispro 00 First dose Medical (HumaLOG) + (after Branch Fsbg last Testing modificati on) on [facility] 11/10/22 at 0800, Until Discontinu ed, Routine metoprolol 2021-11 Yes 50mg 50 mg, Unive rs succinate 2-12 Oral, BID, ity of XL (TOPROL 14:00: First dose [place] XL) tablet 00 on [facility] Medical 50 mg 11/10/22 Branch at 0800, Until Discontinu ed apixaban 2021-11 Yes [id number] 5mg 5 mg, Univers (ELIQUIS) 2-12 Oral, BID, ity of tablet 5 mg 14:00: First dose [place] 00 on [facility] 11/10/22 Branch at 0800, Until Discontinu ed, [...] 01-11 Oral, ity of (TYLENOL) 07:13: Q6HPRN, [place] tablet 650 06 Starting Medic al mg on [place] 11/10/22 at 0113, Until Discontinu ed, Routine, Pain (scale 1-3) potassium 2021-11 No 10meq 10 mEq, IV Univers chloride in 01-11 Piggyback, i ty of water 10 06:00: 06:45 ONCE, 1 [place] mEq/100 mL 00 :00 dose, On Medic al RTU 10 mEq Thu [place] 11/10/22 at 0000, Administer over 60 Minutes, 100 mL pantoprazol 2021-11 No 40mg 40 mg, Uni vers e 01-11 Slow IV ity of (PROTONIX) 04:45: 05:14 Push, [place] injection 00 :00 ONCE, 1 Medical 40 mg dose, On [place] [facility] 11/09/22 at 2245 NaCl 0.9% 2021-11 No 1000mL at 999 Uni vers (NS) bolus 01-11 mL/hr, ity of infusion 04:15: 04:00 1,000 mL, Alex as 1,000 mL 00 :00 IV Medical Infusion, [place] ONCE, 1 dose, On [place] 11/09/22 at 2215, STAT metoclopram 2021-11- No 10mg 10 mg, Uni vers nixon HCl 01-11 Slow IV ity of (REGLAN) 03:15: 03:54 Push, [place] injection 00 :00 ONCE, 1 Medical 10 mg dose, On [facility] 11/09/22 at 2115, [place] aspirin 81 2021-11 Yes 81mg Take 81 mg U nivers mg chewable 2-12 by mouth ity of tablet 01:13: daily. [place] 48 Medical [place] spironolact 2021-11 Yes 25mg Take 25 mg Univers one 25 mg 2-12 by mouth 2 ity of tablet 01:13: (two) [place] 48 times Medical daily. [place] omega-3-dha 2021-11 Yes Take by Uni vers -epa-dpa-fi 2-12 mouth 2 ity o f sh oil 01:13: (two) [place] (OMEGA-3 48 times Medical 2100) daily. Branch 1,050-1,200 mg Cap METOPROLOL 2021-11 Yes 50mg Take 50 mg U nivers SUCCINATE 2-12 by mouth 2 ity of ORAL 01:13: (two) [place] [address] times Medical daily. Branch atorvastati 2021-11 Yes 40mg Take 40 mg Univers n 20 mg 2-12 by mouth ity of tablet 01:13: at [place] [address] bedtime. Medical Branch pantoprazol 2021-11 Yes 40mg Take 40 mg Univers e 40 mg EC 2-12 by mouth 2 ity of tablet 01:13: (two) [place] [address] times Medical daily. Branch famotidine 2021-11 Yes 40mg Take 40 mg U nivers 40 mg 2-12 by mouth ity of tablet 01:13: daily. [address] Branch aspirin 81 2021-11 Yes 81mg Take 81 mg U nivers mg chewable 2-12 by mouth ity of tablet 01:13: daily. [place] [address] Medical Branch spironolact 2021-11 Yes 25mg Take 25 mg Univers one 25 mg 2-12 by mouth 2 ity of tablet 01:13: (two) [place] [address] times Medical daily. Branch omega-3-dha 2021-11 Yes Take by Uni vers -epa-dpa-fi 2-12 mouth 2 ity o f sh oil 01:13: (two) [place] (OMEGA-3 48 times Medical 2100) daily. Branch 1,050-1,200 mg Cap METOPROLOL 2021-11 Yes 50mg Take 50 mg U nivers SUCCINATE 2-12 by mouth 2 ity of ORAL 01:13: (two) [place] [address] times Medical daily. Branch atorvastati 2021-11 Yes 40mg Take 40 mg Univers n 20 mg 2-12 by mouth ity of tablet 01:13: at [place] [address] bedtime. Medical Branch pantoprazol 2021-11 Yes 40mg Take 40 mg Univers e 40 mg EC 2-12 by mouth 2 ity of tablet 01:13: (two) [place] [address] times Medical daily. Branch famotidine 2021-11 Yes 40mg Take 40 mg U nivers 40 mg 2-12 by mouth ity of tablet 01:13: daily. [place] [address] Medical Branch insulin 2021-11 Yes 10U 10 Units, Unive rs glargine 2-10 Subcutaneo ity o f (LANTUS 15:00: us, DAILY, [place] U-100) 00 First dose Medical injection (after Branch 10 Units last modificati on) on 11/08/22 at 0900, Until Discontinu ed, Routine insulin 2021-11 Yes [id number] 10U inject 10 Univers glargine 2-10 Units ity of 100 unit/mL 00:00: under the [place] injection 00 skin Medical daily. If Branch not eating or if blood sugar is between 80 and 120 give HALF the dose. If blood sugar less than 80: Eat a meal and recheck. Give half dose of insulin once blood sugar over 120. insulin 2021-11 Yes [id number] 10U inject 10 Univers glargine 2-10 Units ity of 100 unit/mL 00:00: under the [place] injection 00 skin Medical daily. If Branch not eating or if blood sugar is between 80 and 120 give HALF the dose. If blood sugar less than 80: Eat a meal and recheck. Give half dose of insulin once blood sugar over 120. insulin 2021-11 Yes [id number] 10U inject 10 Univers glargine 2-10 Units ity of 100 unit/mL 00:00: under the [place] injection 00 skin Medical daily. If Branch not eating or if blood sugar is between 80 and 120 give HALF the dose. If blood sugar less than 80: Eat a meal and recheck. Give half dose of insulin once blood sugar over 120. insulin 2021-11 Yes [id number] 10U inject 10 Univers glargine 2-10 Units ity of 100 unit/mL 00:00: under the [place] injection 00 skin Medical daily. If Branch not eating or if blood sugar is between 80 and 120 give HALF the dose. If blood sugar less than 80: Eat a meal and recheck. Give half dose of insulin once blood sugar over 120. insulin 2021-11 Yes [id number] 10U inject 10 Univers glargine 2-10 Units [...] Subcutaneo ity of (human) 23:00: us, TID [place] (HumaLOG 00 MEALS, Medical U-100) First dose Branch injection 3 (after Units last modificati on) on Thu11/07/22 at 1700, Until Discontinu ed, Routine aspirin 81 2021-11 Yes 81mg Take 81 mg U nivers mg chewable 2-09 by mouth ity of tablet 17:37: daily. [place] 57 Medical Branch spironolact 2021-11 Yes 25mg Take 25 mg Univers one 25 mg 2-09 by mouth 2 ity of tablet 17:37: (two) [place] 57 times Medical daily. Branch omega-3-dha 2021-11 Yes Take by Uni vers -epa-dpa-fi 2-09 mouth 2 ity o f sh oil 17:37: (two) [place] (OMEGA-3 57 times Medical 2100) daily. Branch 1,050-1,200 mg Cap METOPROLOL 2021-11 Yes 50mg Take 50 mg U nivers SUCCINATE 2-09 by mouth 2 ity of ORAL 17:37: (two) [place] 57 times Medical daily. Branch atorvastati 2021-11 Yes 40mg Take 40 mg Univers n 20 mg 2-09 by mouth ity of tablet 17:37: at [place] 57 bedtime. Medical Branch pantoprazol 2021-11 Yes 40mg Take 40 mg Univers e 40 mg EC 2-09 by mouth 2 ity of tablet 17:37: (two) [place] 57 times Medical daily. Branch sodium 2021-11- 30mmol 30 mmol, Univ ers phosphate 01-08 IV ity of 30 mmol in 17:30: 21:49 Piggyback, [place] NaCl 0.9% 00 :00 ONCE, 1 Medical [...] 2021-11 Yes 81mg 81 mg, Univers chewable 2- Oral, ity of tablet 81 15:00: DAILY, [place] mg 00 First dose Medical on Thu Branch 11/07/22 at 0900, Until Discontinu ed, Routine KCL 2021-11- No 40meq 40 mEq, Univers (KLOR-CON 01-08- Oral, ity of M20) tablet 15:00: 17:13 ONCE, 1 [place] 40 mEq 00 :00 dose, On Medical Fri Branch 11/07/22 at 0900, Routine insulin 2021-11 No 35U inject 35 Univ ers regular, 01-08- Units ity of human 14:59: 00:00 under the [place] (HUMULIN R 33 :00 skin 2 Medical U-500, (two) Branch CONC, times INSULIN SC) daily. tirzepatide 2021-11 No 5mg inject 5 U nivers 5 mg/0.5 mL 01-08- mg under ity of subcutaneou 14:59: 00:00 the skin [place] s injection 33 :00 weekly. Medic al Branch metoprolol 2021-11 Yes 50mg 50 mg, Unive rs succinate 2- Oral, BID, ity of XL (TOPROL 14:00: First dose [place] XL) tablet 00 on Thu Medical 50 mg 11/07/22 at Branch 0800, Until Discontinu ed, Routine atorvastati 2021-11 Yes 40mg 40 mg, Univ ers n (LIPITOR) 2-09 Oral, QHS, it y of tablet 40 03:00: First dose [place] mg 00 on [place] [facility] 11/06/22 at Branch 2100, Until Discontinu ed, Routine apixaban 5 2021-11 Yes 1358 5mg Take 1 Unive rs mg tablet 2-09 tablet by ity o f 00:00: mouth 2 [place] 00 (two) Medical times Branch daily. Indication s: atrial fibrillati on tirzepatide 2021-11 Yes [id number] 7.5mg inject 7.5 Univers (MOUNJARO) 2-09 mg under ity o f 7.5 mg/0.5 00:00: the skin Alex as mL PnIj 00 weekly. Medical Branch metFORMIN 2021-11 Yes [id number] 1000mg Take 1 Univers 1,000 mg 2-09 tablet by ity of tablet 00:00: mouth 2 (two) Medical times Branch daily with meals. insulin 2021-11 Yes [id number] Do not Uni vers regular 2-09 take [...] s: atrial fibrillati on tirzepatide 2021-11 Yes [id number] 7.5mg inject 7.5 Univers (MOUNJARO) 2-09 mg under ity o f 7.5 mg/0.5 00:00: the skin Alex as mL PnIj 00 weekly. Medical Branch metFORMIN 2021-11 Yes [id number] 1000mg Take 1 Univers 1,000 mg 2-09 tablet by ity of tablet 00:00: mouth (two) Medical times Branch daily with meals. insulin 2021-11 Yes [id number] Do not Uni vers regular 2-09 take [...] s: atrial fibrillati on tirzepatide 2021-11 Yes [id number] 7.5mg inject 7.5 Univers (MOUNJARO) 2-09 mg under ity o f 7.5 mg/0.5 00:00: the skin Alex as mL PnIj 00 weekly. Medical Branch metFORMIN 2021-11 Yes [id number] 1000mg Take 1 Univers 1,000 mg 2-09 tablet by ity of tablet 00:00: mouth (two) Medical times Branch daily with meals. insulin 2021-11 Yes [id number] Do not Uni vers regular 2-09 take [...] and cover again with sliding scale apixaban 2021-11 Yes 1358 5mg Take 1 Unive rs mg tablet 2-09 tablet by ity o f 00:00: mouth (two) Medical times Branch daily. Indication s: atrial fibrillati on metFORMIN 2021-11 Yes [id number] 1000mg Take 1 Univers 1,000 mg 2-09 tablet by ity of tablet 00:00: mouth (two) Medical times Branch daily with meals. insulin 2021-11 Yes [id number] Do not Uni vers regular 2-09 take [...] s: atrial fibrillati on metFORMIN 2021-11 Yes [id number] 1000mg Take 1 Univers 1,000 mg 2-09 tablet by ity of tablet 00:00: mouth 2 (two) [facility] times [place] daily with meals. insulin 2021-11 Yes [id number] Do not Uni vers regular 01-08 take [...] Take 1 Maeve ey HCl 1000 MG - tablet Seybol d oral Tablet 00:00: (1,000 mg - 00 total) by Externa mouth in l the morning and 1 tablet (1,000 mg total) in the evening. Take with meals. INSULIN 2021-11 Yes Do not Maisha REGULAR 01-08 take your Seybold HUMAN 00:00: scheduled - [...] Take 1 Maeve ey HCl 1000 MG - tablet Seybol d oral Tablet 00:00: (1,000 mg - 00 total) by Externa mouth in l the morning and 1 tablet (1,000 mg total) in the evening. Take with meals. Metformin 2021-11- No 1000mg Take 1 Alex [...] again with sliding scale tirzepatide 2021-11- No [id number] 7.5mg inject 7.5 Univers (MOUNJARO) 01-08 12-14 mg under ity of 7.5 mg/0.5 00:00: 00:00 the skin [place] mL PnIj 00 :00 weekly. Medical Branch Sliding 2021-11 Yes Subcutaneo [facility] [place] ers Scale 2-08 us, TID ity of Insulin - 23:00: MEALS+HS, Alex as Lispro 00 First dose Medical (HumaLOG) + on [place] Branch Fsbg 11/06/22 at Testing 1700, Until Discontinu ed, Routine insulin 2021-11- No 6U 6 Units, Univ rs lispro 01-07 Subcutaneo ity of (human) 23:00: 20:55 us, TID [place] (HumaLOG 00 :57 MEALS, Medical U-100) First [...] 25 mL, Univ ers % in water 2-08 Slow IV ity of (D50W) 22:00: Push, [...] mEq [place] 11/06/22 at 1015, Routine insulin 2021-11 No 20U 20 Units, Univ ers glargine [...] IV Push, ity of (PF)) 11:51: Q6HPRN, [place] injection 4 01 Starting Medi mariam mg on [place] Branch 11/06/22 at 0551, Until Discontinu ed, [place], Nausea and Vomiting (N/V) acetaminoph 2021-11 Yes 650mg 650 mg, Un ko en 08 Oral, ity of (TYLENOL) 11:39: Q6HPRN, [place] tablet 650 11 Starting Medic al mg [...] 11/06/22 at 0115, Routine iopamidol 2021-11- No [id number] 150mL 150 mL, Univers (ISOVUE 01-07 Intravenou ity o f 370-500 mL) 07:00: 07:00 s, ONCE, 1 [place] injection 00 :00 dose, On Medica l 150 mL [place] Branch 11/06/22 at 0100, Routine NaCl 0.45% 2021-11- No 1000mL Univ ers (1/2NS) 01-07 ity of 1000 mL + 06:45: 11:36 [place] KCL 20 mEq 00 :49 [facility] D5W 0.45% 2021-11- No IV Univers NaCl [...] 00 :00 dose, On Medic al mg [facility] 11/05/22 at 2330, [place] ondansetron 2021-11- No 4mg 4 mg, Slow Univers (ZOFRAN 01-07 IV Push, ity of (PF)) 05:30: 04:57 ONCE, 1 [place] injection 4 00 :00 dose, On Medi mariam mg [facility] 11/05/22 at 2330, [place] sulfur 2021-11- No [id number] 5mL 5 mL, Unive rs hexafluorid 0-06 10-06 Intravenou i ty of e microsphr 17:15: 17:15 s, ONCE, 1 [place] (LUMASON) 00 :00 dose, On Medica l injection 5 [place] Branch mL 09/04/22 at 1215, Routine
earth science faculty member approving Restricted medication : MAURA QUEENHPresley aspirin 81 2021-11 Yes 81mg Take 81 mg U nivers mg chewable 0-06 by mouth ity of tablet 14:37: daily. [address] Branch empaglifloz 2021-11 Yes 2{tbl} Take 2 Un ko in-metformi 0-06 tablets by it y of n 14:37: mouth 2 [place] (SYNJARDY) (two) [facility] 12.5-1,000 times Branch mg Tab daily. spironolact [...] mouth 2 ity of ORAL 14:37: (two) [place] 28 times Medical daily. Branch atorvastati 2021-11 Yes 40mg Take 40 mg Univers n 20 mg 0-06 by mouth ity of tablet 14:37: at [place] 28 bedtime. Medical Branch pantoprazol 2021-11 Yes 40mg Take 40 mg Univers e 40 mg EC 0-06 by mouth 2 ity of tablet 14:37: (two) [place] 28 times Medical daily. Branch insulin 2021-11 Yes 35U inject 35 Unive rs regular, 0-06 Units ity of human 14:37: under the [place] (HUMULIN R 28 skin 2 Medical U-500, [...] (70-30 00 First dose Medical U-[address] [facility] Branch INSULIN) 09/03/22 at 100 unit/mL 2345, (70-30) Until injection Discontinu 35 Units ed, Routine atorvastati 2021-11 Yes 40mg 40 mg, Univ ers n (LIPITOR) 0-06 Oral, QHS, it y of tablet 40 04:45: First dose [place] mg 00 on [facility] 09/03/22 at Branch 2345, Until Discontinu ed, Routine furosemide 2021-11- No 20mg 20 mg, IV U nivers (LASIX) 0-06 10-06 Push, Q8H, ity o f injection 04:45: 13:50 First dose [place] 20 mg 00 :16 on [facility] 09/03/22 at Branch 2345, Until Discontinu ed, [place] ondansetron 2021-11 Yes 4mg 4 mg, Slow Univers (ZOFRAN 0-06 IV Push, ity of (PF)) 04:33: Q6HPRN, [place] injection 4 54 Starting Medi mariam mg on [facility] 09/03/22 at 2333, Until Discontinu ed, Routine, Nausea and Vomiting (N/V) Sliding 2021-11 Yes Subcutaneo Univ ers Scale 0-06 us, TID ity of Insulin - 04:30: MEALS+HS, [place] as Lispro 00 First dose Medical (HumaLOG) + on Thu [place] [facility] 09/03/22 at Testing 2330, Until Discontinu ed, Routine nitroglycer 2021-11- No .4mg 0.4 mg, Un ko in 0-05 10-05 Sublingual ity of (NITROSTAT) 22:30: 22:34 , ONCE, 1 [place] sublingual 00 :00 dose, On Medic al tablet 0.4 [facility] Branch mg 09/03/22 at 1730, [place] magnesium 2021- No 400mg 400 mg, Uni vers oxide 04-2427 Oral, BID, ity of (MAG-OX 01:00: 12:59 3 doses, [place] 400) tablet 00 :00 First dose Me dical 400 mg on Wed Branch 04/23/22 at 2000, Last dose on [place] 04/24/22 at 2000, Routine maalox:diph 2021-0 Yes 15mL 15 mL, Univ ers enhydrAMINE 5-25 Oral, ity of :lidocaine 15:47: QDAILYPRN, [place] 2 % viscous 15 Starting Medi mariam 1:1:1 on Wed Branch (FIRST-MOUT 04/23/22 at [facility]) 1047, oral Until suspension Discontinu 15 mL ed, Routine, indigestio n insulin 0 Yes inject Univers glargine,hu 5-25 under the ity of .rec.anlog 15:15: skin. [place] (TOUJEO 25 [facility] U-300 INSULIN SC) aspirin 81 0 Yes 81mg Take 81 mg U nivers mg chewable 5-25 by mouth ity of tablet 15:15: daily. [place] [facility] empaglifloz Yes 2{tbl} Take 2 Un ko in-metformi 5-25 tablets by it y of n 15:15: mouth 2 [place] (SYNJARDY) 25 (two) Medical 12.5-1,000 times Branch mg Tab daily. apixaban Yes 5mg Take 5 mg Univ ers (ELIQUIS) 5 5-25 by mouth 2 it y of mg tablet 15:15: (two) [place] 25 times Medical daily. [place] spironolact Yes 25mg Take 25 mg Univers one 25 mg 5-25 by mouth 2 ity of tablet 15:15: (two) [place] 25 times Medical daily. Branch insulin Yes inject Univers glargine,hu 5-25 under the ity of m.rec.anlog 15:15: skin. [place] (TOUJEO 25 [facility] U-300 INSULIN SC) aspirin 81 0 Yes 81mg Take 81 mg U nivers mg chewable 5-25 by mouth ity of tablet 15:15: daily. [address] empaglifloz Yes 2{tbl} Take 2 Un [...] 2021- No 40meq 40 mEq, Univers (KLOR-CON -25 05-25 Oral, ity of M20) tablet 14:15: 15:57 ONCE, 1 [place] 40 mEq 00 :00 dose, On Medical Thu Branch 04/23/22 at 0915, Routine insulin 2021- No inject Univers glargine,hu 04-23-25 under the it y of m.rec.anlog 10:54: 00:00 [place]. [place] (L[place]US [place]) 26 :00 Medical Branch sitagliptin 2021- No Take by Un ko phosphate 04-23 05-25 mouth. ity of (JANUVIA 10:54: 00:00 [place] ORAL) 26 :00 Medical Branch atorvastati 2021- No 40mg Take 40 mg Univers n calcium 04-23-25 by mouth. ity of (LIPITOR 10:54: 00:00 [place] ORAL) 26 :00 Medical Branch METOPROLOL 2021- No 50mg Take 50 mg Univers TARTRATE 04-23 05-25 by mouth 2 ity of ORAL 10:54: 00:00 (two) [place] 26 :00 times Medical daily. Branch morpHINE (2 Yes [id number] 2mg 2 mg, Slow Univers mg/mL) 5-25 IV Push, ity of injection 2 10:16: Q4HPRN, [place] as mg 57 Starting Medical on Thu Branch 04/23/22 at 0516, Until Discontinu ed, Routine, Pain (scale 7-10) Sliding Yes Subcutaneo Univ ers Scale 5-25 us, Q3H, ity of Insulin - 03:00: [place] Lispro 00 on [facility] (HumaLOG) + 04/22/22 at Br anch Fsbg 2200, Testing Until Discontinu ed, Routine insulin Yes 25U 25 Units, Unive rs glargine 5-25 Subcutaneo ity o f (LANTUS 03:00: us, Q12H, [place] U-100) 00 First dose Medical injection on [facility] Branch 25 Units 04/22/22 at 2200, Until Discontinu ed, Routine glucagon Yes 1mg 1 mg, Univers (GLUCAGEN 5-25 Intramuscu ity of DIAGNOSTIC 02:55: lar, PRN, [place] KIT) 16 Starting Medical injection 1 on Thu [place] mg 04/22/22 at 2155, Until Discontinu ed, [place], Blood Glucose < or = 70 mg/dL and patient is unable to swallow or has mental changes. dextrose 50 Yes 25mL 25 mL, Univ ers % in water 5-25 Slow IV ity of (D50W) 02:55: Push, PRN, [place] injection 16 Starting Medica l 25 mL on [facility] Branch 04/22/22 at 2155, Until Discontinu ed, [place], Blood Glucose < or = 70 mg/dL and patient is unable to swallow or has mental status changes. sucralfate 2021- No [id number] 1g Take 1 Univers 1 gram 5-25 06-25 tablet by ity of tablet 00:00: 04:59 mouth [place] 00 :00 before Medical meals and Branch at bedtime for 30 days. pantoprazol 2021- No [id number] 40mg Take 1 Univers e 40 mg EC 5-25 06-25 tablet by ity of tablet 00:00: 04:59 mouth 2 [place] 00 :00 (two) Medical times Branch daily for 30 days. metoprolol 2021- No [id number] 50mg Take 1 Univers tartrate 50 5-25 06-25 tablet by it y of mg tablet 00:00: 04:59 mouth 2 [place] 00 :00 (two) Medical times Branch daily for 30 days. atorvastati 2021- No [id number] 40mg Take 1 Univers n (LIPITOR) 5-25 06-25 tablet by it y of 40 mg 00:00: 04:59 mouth at [place] tablet 00 :00 bedtime Medical for 30 Branch days. sucralfate 2021- No [id number] 1g Take 1 Univers 1 gram 5-25 06-25 tablet by ity of tablet 00:00: 04:59 mouth [place] 00 :00 before Medical meals and Branch at bedtime for 30 days. pantoprazol 2021- No [id number] 40mg Take 1 Univers e 40 mg EC 5-25 06-25 tablet by ity of tablet 00:00: 04:59 mouth 2 [place] 00 :00 (two) Medical times [place] daily for 30 days. metoprolol 2021- No [id number] 50mg Take 1 Univers tartrate 50 5-25 06-25 tablet by it y of mg tablet 00:00: 04:59 mouth 2 [place] 00 :00 (two) Medical times [place] daily for 30 days. atorvastati 2021- No [id number] 40mg Take 1 Univers n (LIPITOR) 5-25 06-25 tablet by it y of 40 mg 00:00: 04:59 mouth at [place] tablet 00 :00 bedtime Medical for 30 Branch days. magnesium 2021- No [id number] 400mg Take 400 Univers oxide 420 5-25 06-10 mg by ity of mg Tab 00:00: 04:59 mouth [place] 00 :00 daily for Medical 15 days. [place] magnesium 2021- No [id number] 400mg Take 400 Univers oxide 420 5-25 06-10 mg by ity of mg Tab 00:00: 04:59 mouth [place] 00 :00 daily for Medical 15 days. [place] sucralfate Yes 1g 1 g, Oral, U nivers (CARAFATE) 5-24 AC+HS, ity of tablet 1 g 21:30: First dose [place] 00 on [facility] 04/22/22 at Branch 1630, Until Discontinu ed, Routine morpHINE (4 2021- No [id number] 2mg 2 mg, Slow Univers mg/mL) 5-24 05-24 IV Push, ity of injection 2 16:15: 15:15 ONCE, 1 [place] mg 00 :00 dose, On [facility] 04/22/22 at 1115, Routine SITagliptin Yes 50mg 50 mg, Univ ers (JANUVIA) 5-24 Oral, ity of tablet 50 14:00: DAILY, [place] mg 00 First dose Medical on [facility] 04/22/22 at 0900, Until Discontinu ed aspirin 0 Yes 81mg 81 mg, Univers chewable 5-24 Oral, ity of tablet 81 14:00: DAILY, [place] mg 00 First dose Medical on [place] 04/22/22 at 0900, Until Discontinu ed, Routine metoprolol 0 Yes 25mg 25 mg, Unive rs tartrate 5-24 Oral, BID, ity o f (LOPRESSOR) 13:00: First dose [place] tablet 25 00 on Medical mg 04/22/22 at Branch 0800, Until Discontinu ed, Routine apixaban Yes 5mg 5 mg, Univers (ELIQUIS) 5-24 Oral, BID, ity of tablet 5 mg 13:00: First dose [place] 00 on [facility] 04/22/22 at Branch 0800, Until Discontinu ed, Routine
Indicatio ns: Non-Valvul ar Atrial Fibrillati on pantoprazol 0 Yes 40mg 40 mg, Univ ers e 5-24 Oral, BID, ity of (PROTONIX) 13:00: First dose [place] EC tablet 00 on [facility] 40 mg 04/22/22 at Branch 0800, Until Discontinu ed, Routine D5W 0.9% 2021- No IV Univers NaCl (NS) 1 04-22 05-25 Infusion, it y of L + KCL 40 13:00: 02:32 at 200 [place] mEq 00 :18 mL/hr, Medical CONTINUOUS Branch , Starting on Thu04/22/22 at 0800, Until Thu04/22/22 at 2132, Routine ondansetron Yes 4mg 4 mg, Slow Univers (ZOFRAN 524 IV Push, ity of (PF)) 12:18: Q6HPRN, [place] injection 4 40 Nausea and Me dical mg Vomiting Branch (N/V), Starting on Thu04/22/22 at 0718
Do ses of ondansetro n 16 mg and above need to be administer ed via IV piggyback. For Dose >=24mg ECG monitoring is advisable.
atorvastati Yes 40mg 40 mg, Univ ers n (LIPITOR) -24 Oral, QHS, it y of tablet 40 02:00: First dose [place] mg 00 on [facility] 04/21/22 at Branch 2100, Until Discontinu ed, Routine pantoprazol 2021- No [id number] 40mg 40 mg, Univers e 04-22 Slow IV ity of (PROTONIX) 01:00: 00:00 Push, [place] injection 00 :00 ONCE, 1 Medical 40 mg dose, On Branch [facility] 04/21/22 at 1999 NaCl 0.9% 2021- No [id number] 2000mL at 999 Univers (NS) bolus 04-22 mL/hr, ity of infusion 01:00: 23:59 2,000 mL, Alex as 2,000 mL 00 :00 IV Medical Infusion, Branch ONCE, 1 dose, On [facility] 04/21/22 at 2000, [place] ondansetron 2021- No [id number] 4mg 4 mg, Slow Univers (ZOFRAN 04-22 IV Push, ity of (PF)) 00:30: 23:26 ONCE, 1 [place] injection 4 00 :00 dose, On Medi mariam mg [facility] 04/21/22 at 1930, [place] morpHINE (4 2021- No [id number] 4mg 4 mg, Slow Univers mg/mL) 04-22 IV Push, ity of injection 4 00:30: 23:26 ONCE, 1 [place] mg 00 :00 dose, On Medical [facility] 04/21/22 at 1930, STAT D5W 0.45% 2021- No [id number] 1000mL at 200 Univers NaCl 04-22 mL/hr, ity of (1/2NS) IV 00:21: 11:50 1,000 mL, [place] infusion 22 :31 IV Medical 1,000 mL Infusion, [place] PRN - SEE INSTRUCTIO NS, Starting on Thu04/21/22 at 1921, Until Thu04/22/22 at 0650, [place] iopamidol 2021- No [id number] 120mL 120 mL, Univers (ISOVUE 04-21 Intravenou ity o f 370-500 mL) 22:15: 00:26 s, ONCE, 1 [place] injection 00 :00 dose, On Medica l 120 mL Mon Branch 04/21/22 at 1715, Routine esomeprazol 2020-11- No Take by Un ko e magnesium 11-30 mouth. ity o f (NEXIUM 14:20: 00:00 [place] ORAL) 21 :00 [facility] insulin 2020-11 Yes inject Univers glargine,hu 11-30 under the ity of .rec.anlog 13:40: skin. [place] (LANTUS SC) [address] [place] [address] insulin 2020-11 Yes inject Univers glargine,hu 11-30 under the ity of m.rec.anlog 13:40: skin. [place] (TOUJEO [address] [place] [address] [facility] sitagliptin 2020-11 Yes Take by Uni vers phosphate 11-30 mouth. ity of (JANUVIA 13:40: [place] ORAL) [address] [place] [address] atorvastati 2020-11 Yes Take by Uni vers n calcium 11-30 mouth. ity of (LIPITOR 13:40: [place] ORAL) [address] [place] [address] METOPROLOL 2020-11 Yes Take by [facility] [place] ers TARTRATE 11-30 mouth. ity of ORAL 13:40: [address] aspirin 81 2020-11 Yes 81mg Take 81 mg U nivers mg chewable 11-30 by mouth ity of tablet 13:40: daily. [address] pantoprazol 2020-11 Yes [id number] 40mg Take 1 Univers e 40 mg EC 11-30 tablet by ity of tablet 00:00: mouth 2 [place] 00 (two) Medical times Branch daily. pantoprazol 2020-11- No [id number] 40mg Take 1 Univers e 40 mg EC 11-30 05-25 tablet by ity of tablet 00:00: 00:00 mouth 2 [place] 00 :00 (two) Medical times Branch daily. sucralfate Yes [id number] 1g Take 1 U nivers 1 gram 8-03 tablet by ity of tablet 00:00: mouth 00 before Medical meals and Branch at bedtime. ondansetron Yes [id number] 4mg Take 1 Univers (ZOFRAN 8-03 tablet by ity of ODT) 4 mg 00:00: mouth [place] disintegrat 00 every 8 Medic al ing tablet (eight) Branch hours as needed for Nausea and Vomiting (N/V). ondansetron 2021-0 Yes [id number] 4mg Take 1 Univers (ZOFRAN 8-03 tablet by ity of ODT) 4 mg 00:00: mouth [place] disintegrat 00 every 8 Medic al ing tablet (eight) Branch hours as needed for Nausea and Vomiting (N/V). ondansetron 2021-0 Yes [id number] 4mg Take 1 Univers (ZOFRAN 8-03 tablet by ity of ODT) 4 mg 00:00: mouth [place] disintegrat 00 every 8 Medic al ing tablet (eight) Branch hours as needed for Nausea and Vomiting (N/V). ondansetron 2021-0 Yes [id number] 4mg Take 1 Univers (ZOFRAN 8-03 tablet by ity of ODT) 4 mg 00:00: mouth [place] disintegrat 00 every 8 Medic al ing tablet (eight) Branch hours as needed for Nausea and Vomiting (N/V). ondansetron 2021-0 Yes [id number] 4mg Take 1 Univers (ZOFRAN 8-03 tablet by ity of ODT) 4 mg 00:00: mouth [place] disintegrat 00 every 8 Medic al ing tablet (eight) Branch hours as needed for Nausea and Vomiting (N/V). ondansetron 2021-0 Yes [id number] 4mg Take 1 Univers (ZOFRAN 8-03 tablet by ity of ODT) 4 mg 00:00: mouth [place] disintegrat 00 every 8 Medic al ing tablet (eight) Branch hours as needed for Nausea and Vomiting (N/V). ondansetron 2021-0 Yes [id number] 4mg Take 1 Univers (ZOFRAN 8-03 tablet by ity of ODT) 4 mg 00:00: mouth [place] disintegrat 00 every 8 Medic al ing tablet (eight) Branch hours as needed for Nausea and Vomiting (N/V). ondansetron 2021-0 Yes [id number] 4mg Take 1 Univers (ZOFRAN 8-03 tablet by ity of ODT) 4 mg 00:00: mouth [place] disintegrat 00 every 8 Medic al ing tablet (eight) Branch hours as needed for Nausea and Vomiting (N/V). ondansetron Yes [id number] 4mg Take 1 Univers (ZOFRAN 8-03 tablet by ity of ODT) 4 mg 00:00: mouth [place] disintegrat 00 every 8 Medic al ing tablet (eight) Branch hours as needed for Nausea and Vomiting (N/V). sucralfate 2022- No [id number] 1g Take 1 Univers 1 gram 8-03 05-25 tablet by ity of tablet 00:00: [...] Body temperature 2023-04-17 13:42:00 37.11 Chen Maeve pedersen Seybold - External Respiratory rate 2023-04-17 13:42:00 18 /min Maeve pedersen Seybold - External Body height 2023-04-17 13:42:00 170.2 cm Maisha pedersenbold - External Body weight 2023-04-17 13:42:00 129.729 kg Maisha Cole eybold - External BMI 2023-04-17 13:42:00 44.79 kg/m2 Maisha Cole eybold - External Systolic blood 2023-04-08 13:05:00 106 mm[Hg] Maisha Goddardybold - pressure External Diastolic blood 2023-04-08 13:05:00 74 mm[Hg] Tamara daly Seybold - pressure External Heart rate 2023-04-08 13:05:00 84 /min Maisha pedersenbold - External Body temperature 2023-04-08 13:05:00 36.06 Chen Maeve pedersen Seybold - External Respiratory rate 2023-04-08 13:05:00 [...] External Diastolic blood 2023-04-02 13:42:00 72 mm[Hg] Tamaar y Seybold - pressure External Heart rate [...] 2022-11-12 18:00:00 37 Chen Univ ersity of [facility] Systolic blood 2022-11-12 17:00:00 113 mm[Hg] Univer sity of pressure [facility] Diastolic blood 2022-11-12 17:00:00 67 mm[Hg] Unive rsity of pressure [facility] Heart rate 2022-11-12 17:00:00 91 /min Universi ty of [facility] Respiratory rate 2022-11-12 17:00:00 25 /min [facility] in 2022-11-12 17:00:00 93 /min University of Arterial blood by [facility] Pulse oximetry Branch Body weight 2022-11-12 09:42:00 117.981 kg Universi ty of [facility] BMI 2022-11-12 09:42:00 40.74 kg/m2 Universi ty [facility] Body height 2022-11-10 06:00:00 170.2 cm Universi ty of [place] [facility] Systolic blood 2022-11-07 17:53:00 106 mm[Hg] Univer sity of pressure [place] [facility] Diastolic blood 2022-11-07 17:53:00 70 mm[Hg] Unive rsity of pressure [place] [facility] Heart rate 2022-11-07 17:53:00 102 /min Universi ty of [place] [facility] Body temperature 2022-11-07 17:53:00 37.22 Chen Univ ersity of [place] [facility] Respiratory rate 2022-11-07 17:53:00 22 /min Univ ersity of [place] [facility] Oxygen saturation in 2022-11-07 17:53:00 95 /min University of Arterial blood by [place] iPAYst mariam Pulse oximetry Branch Body height 2022-11-06 11:30:00 170.2 cm Universi ty of [place] [facility] Body weight 2022-11-06 11:30:00 116.5 kg Universi ty of [place] [facility] BMI 2022-11-06 11:30:00 40.23 kg/m2 Universi ty of [place] [facility] Systolic blood 2022-09-04 17:00:00 129 mm[Hg] Univer sity of pressure [place] [facility] Diastolic blood 2022-09-04 17:00:00 84 mm[Hg] Unive rsity of pressure [place] [facility] Heart rate 2022-09-04 17:00:00 85 /min Universi ty of [place] [facility] Oxygen saturation in 2022-09-04 17:00:00 94 /min University of Arterial blood by [place] iPAYst mariam Pulse oximetry Branch Body temperature 2022-09-04 16:21:00 36.33 Chen Univ ersity of [place] [facility] Respiratory rate 2022-09-04 16:21:00 18 /min Univ ersity of [place] [facility] Body height 2022-09-03 22:04:00 170.2 cm Universi ty of [place] [facility] Body weight 2022-09-03 22:04:00 122.834 kg Universi ty of [place] [facility] BMI 2022-09-03 22:04:00 42.41 kg/m2 Universi ty of [place] [facility] Systolic blood 2022-04-23 18:00:00 109 mm[Hg] Univer sity of pressure [place] [facility] Diastolic blood 2022-04-23 18:00:00 56 mm[Hg] Unive rsity of pressure [facility] Heart rate 2022-04-23 18:00:00 85 /min Universi ty of [facility] Respiratory rate 2022-04-23 18:00:00 20 /min Univ ersity of [facility] Oxygen saturation in 2022-04-23 17:00:00 97 /min University of Arterial blood by [facility] Pulse oximetry Branch Body temperature 2022-04-23 16:30:00 36.72 Chen Univ ersity of [facility] Body height 2022-04-21 22:46:00 170.2 cm Universi ty of [facility] Body weight 2022-04-21 22:46:00 113.399 kg Universi ty of [facility] BMI 2022-04-21 22:46:00 39.16 kg/m2 Universi ty [facility] Systolic blood 2021-09-30 18:36:00 125 mm[Hg] Univer sity of pressure [facility] Diastolic blood 2021-09-30 18:36:00 81 mm[Hg] Unive rsity of pressure [facility] Heart rate 2021-09-30 18:36:00 120 /min Universi ty of [facility] Body temperature 2021-09-30 18:36:00 36.61 Chen Univ ersity of [facility] Body height 2021-09-30 18:36:00 170.2 cm Universi ty of [place] [facility] [place] Body weight 2021-09-30 18:36:00 99.066 kg Universi ty [facility] BMI 2021-09-30 18:36:00 34.21 kg/m2 Universi ty [facility] Oxygen saturation in 2021-09-30 18:36:00 93 /min University of Arterial blood by [facility] Pulse oximetry Branch Procedures Procedure Date / Time Performing Clinician Source Performed REAGENT STRIP/BLOOD 2023-04-17 00:00:00 Outside, Celine Moy - GLUCOSE External TELERETINAL DIABETIC 2023-04-02 15:16:00 John Sequeira - SCREENING Farshad External POCT GLUCOSE (AUTOMATED) 2022-11-12 17:08:00 [facility]) 2022-11-12 13:30:00 Cholo Love [facility] FERRITIN SERUM 2022-11-12 09:53:00 Kate [facility] o f [facility] HEPATIC FUNCTION PANEL 2022-11-12 09:53:00 Kate [facility] ([id number]) (ALB,T.PRO,BILI Medical Branch T,BU/BC,ALT,AST,ALK PHOS) BASIC METABOLIC PANEL 2022-11-12 09:53:00 Kate [facility] (NA, K, CL, CO2, GLUCOSE, Medica l Branch BUN, CREATININE, CA) POCT GLUCOSE (AUTOMATED) 2022-11-12 02:07:00 Kate [facility] POCT GLUCOSE (AUTOMATED) 2022-11-11 21:59:00 Kate [facility] POCT GLUCOSE (AUTOMATED) 2022-11-11 17:08:00 Kate [facility] POCT GLUCOSE (AUTOMATED) 2022-11-11 13:19:00 Kate [facility] MAGNESIUM 2022-11-11 10:21:00 Kate [facility] HEPATIC FUNCTION PANEL 2022-11-11 10:21:00 Kate [facility] ([id number]) (ALB,T.PRO,BILI Medical Branch T,BU/BC,ALT,AST,ALK PHOS) BASIC METABOLIC PANEL 2022-11-11 10:21:00 [facility] ([facility], K, CL, CO2, GLUCOSE, Medica l Branch BUN, CREATININE, CA) CBC WITH DIFF 2022-11-11 10:21[facility]) 2022-11-11 02:37:00 Kate [facility] POCT GLUCOSE (AUTOMATED) 2022-11-10 22:18:00 Cholo Love [facility] US ABDOMEN LIMITED 2022-11-10 21:00:00 Kate [facility] HEPATITIS B SURFACE 2022-11-10 19:01:00 Kate [facility] ANTIBODY [facility] HEPATITIS B SURFACE 2022-11-10 19:01:00 Kate [facility] ANTIGEN [facility] HCV ANTIBODY 2022-11-10 19:01:00 Kate [facility] HEPATITIS A VIRUS 2022-11-10 19:01:00 Kate [facility] ANTIBODY IGM [facility] POCT GLUCOSE (AUTOMATED) 2022-11-10 17:06:00 Natasha Dawna [facility] MAGNESIUM 2022-11-10 15:00[facility]00 [facility] 2022-11-10 15:[id number] POCT GLUCOSE (AUTOMATED) 2022-11-10 13:14:00 Natasha [facility] URINALYSIS 2022-11-10 03:56:00 [facility] URINE CULTURE 2022-11-10 03:56:00 [facility] AC PANEL 20 + LACTIC ACID 2022-11-10 03:47:00 [facility] 2022-11-10 03:46:00 [facility] TROPONIN I 2022-11-10 03:46:00 [facility] COMP. METABOLIC PANEL 2022-11-10 03:46:00 Murali Zafar [facility] ([id number]) [facility] CBC WITH DIFF 2022-11-10 03:46:00 [facility] N-TERMINAL PRO-BNP 2022-11-10 03:46:00 Murali Zafar [facility] HB ECG ROUTINE & RHYTHM 2022-11-10 03:16:17 Murali Zafar [facility] POCT GLUCOSE (AUTOMATED) 2022-11-10 03:09:00 Murali Zafar [facility] POCT GLUCOSE (AUTOMATED) 2022-11-10 02:59:00 Murali Zafar [facility] CONSENT/REFUSAL FOR 2022-11-10 02:39:20 Doctor Unasslili, [facility] DIAGNOSIS AND TREATMENT [place] POCT GLUCOSE (AUTOMATED) 2022-11-07 22:01:00 [facility] PO[facility] GLU[facility]SE (AUTOMATED) 2022-11-07 17:28:[address] Jon [address] [facility] POCT GLUCOSE (AUTOMATED) 2022-11-07 14:16:[address] [facility] PHOSPHORUS 2022-11-07 11:33:00 Mel [facility] BETA HYDROXY-BUTYRATE 2022-11-07 11:33:00 Mel [facility] BASIC METABOLIC PANEL 2022-11-07 11:33:00 Mel [facility] (NA, K, CL, CO2, GLUCOSE, Medica l Branch BUN, CREATININE, CA) POCT GLUCOSE (AUTOMATED) 2022-11-07 03:32:[address] [facility] POCT GLUCOSE (AUTOMATED) 2022-11-06 22:56:[address] [facility] BETA HYDROXY-BUTYRATE 2022-11-06 20:25:00 Jose Miguel Tony [facility] BASIC METABOLIC PANEL 2022-11-06 20:25:00 oMnae Pascual [facility] (NA, K, CL, CO2, GLUCOSE, Medica l Branch BUN, CREATININE, CA) POCT GLUCOSE (AUTOMATED) 2022-11-06 16:15:[address] [facility] BASIC METABOLIC PANEL 2022-11-06 11:53:00 Monae Pascual [facility] (NA, K, CL, CO2, GLUCOSE, Medica l Branch BUN, CREATININE, CA) MRSA / MSSA SCREEN BY 2022-11-06 11:53:00 Monae Pascual [facility] POCT GLUCOSE (AUTOMATED) 2022-11-06 11:26:00 Nagan, Gerson [facility] POCT GLUCOSE (AUTOMATED) 2022-11-06 09:26:00 Murali Zafar [facility] POCT GLUCOSE(AGE >30DAYS) 2022-11-06 08:15:00 [facility] PHOSPHORUS 2022-11-06 07:25:00 [facility] MAGNESIUM 2022-11-06 07:25:00 [facility] OSMOLALITY, SERUM OR 2022-11-06 07:25:00 Murali Zafar [facility] PLASMA [facility] BETA HYDROXY-BUTYRATE 2022-11-06 07:25:00 Murali Zafar [facility] BASIC METABOLIC PANEL 2022-11-06 07:25:00 Murali Zafar [facility] (NA, K, CL, CO2, GLUCOSE, Medica l Branch BUN, CREATININE, CA) LIPID PANEL ([id number])(TOTAL 2022-11-06 07:25:00 Monae Pascual [facility] CHOLESTEROL, [facility] TRIGLYCERIDES, HDL) GLYCOSYLATED HEMOGLOBIN 2022-11-06 07:25:00 Murali Zafar [facility] (A1C) [facility] POCT GLUCOSE(AGE >30DAYS) 2022-11-06 06:58:00 Murali Zafar [facility] POCT GLUCOSE (AUTOMATED) 2022-11-06 06:55:00 Murali Zafar [facility] CRITICAL CARE 2022-11-06 06:50:18 Murali Zafar [facility] AC PANEL 20 + LACTIC ACID 2022-11-06 06:14:00 Murali Zafar [facility] CT ABDOMEN PELVIS W 2022-11-06 06:05:19 Murali Zafar [facility] CONTRAST [facility] CHEST PULMONARY 2022-11-06 06:05:19 Murali Zafar [facility] ANGIOGRAM [facility] BLOOD CULTURE SCREEN 2022-11-06 04:51:00 Murali Zafar [facility] LACTIC ACID WHOLE BLOOD 2022-11-06 04:50:00 Murali Zafar [facility] XR CHEST 1 VW 2022-11-06 04:21:53 Murali Zafar [facility] Branch LIPASE 2022-11-06 04:08:[address] [facility] [place] TROPONIN I 2022-11-06 04:08:00 Murali [facility]afar [facility] COMP. METABOLIC PANEL 2022-11-06 04:08:00 Murali Zafar [facility] ([id number]) Medical Branch CBC WITH DIFF 2022-11-06 04:08:[address] [facility] [place] [place] URINALYSIS 2022-11-06 04:08:[address] [facility] [place] [place] URINE CULTURE 2022-11-06 04:08:[address] [facility] [place] RAPID INFLUENZA A/B 2022-11-06 04:08:00 Murali Zafar [facility] N-TERMINAL PRO-BNP 2022-11-06 04:08:00 Murali Zafar [facility] COVID-19 (ID NOW RAPID 2022-11-06 04:08:00 Murali Zafar [facility] TESTING) Medical [place] LAB ONLY COVID 2022-11-06 04:08:[address] [facility] CONSENT/REFUSAL FOR 2022-11-06 03:03:01 Doctor Unassigned, [facility] DIAGNOSIS AND TREATMENT [place] [facility] ADMISSION 2022-11-05 06:01:00 Doctor Unassigned, [facility] POCT GLUCOSE (AUTOMATED) 2022-09-04 16:52:00 Sachin Mcallister [facility] US GALL BLADDER 2022-09-04 15:00:00 Jaxon [facility] POCT GLUCOSE (AUTOMATED) 2022-09-04 12:51:00 Sachin Mcallister [facility] TROPONIN I 2022-09-04 11:06:00 William [facility] COMP. METABOLIC PANEL 2022-09-04 11:06:00 Jaxon Sutton [facility] ([id number]) [facility] ACUTE CARE VENOUS BLOOD 2022-09-04 11:06:00 Jaxon Sutton [facility] GAS [facility] CBC WITH DIFF 2022-09-04 11:06:00 [facility] N-TERMINAL PRO-BNP 2022-09-04 11:06:00 William kristin [facility] PHOSPHORUS 2022-09-04 05:55:00 [facility] URIC ACID 2022-09-04 05:55:00 [facility] MAGNESIUM 2022-09-04 05:55:00 [facility] TROPONIN I 2022-09-04 05:55:00 [facility] THYROID STIMULATING 2022-09-04 05:55:00 William kristin [facility] HORMONE [facility] LIPID PANEL ([id number])(TOTAL 2022-09-04 05:55:00 Jaxon Sutton [facility] CHOLESTEROL, [facility] TRIGLYCERIDES, HDL) SEDIMENTATION RATE 2022-09-04 05:55:00 William kristin [facility] PROTHROMBIN TIME / INR 2022-09-04 05:55:00 William [facility] HEPATITIS B SURFACE 2022-09-04 05:55:00 William [facility] ANTIBODY [facility] HEPATITIS B SURFACE 2022-09-04 05:55:00 William [facility] ANTIGEN [facility] HCV ANTIBODY 2022-09-04 05:55:00 William [facility] HAV ANTIBODY (IGG AND 2022-09-04 05:55:00 William [facility] IGM) [facility] PROCALCITONIN 2022-09-04 05:55:00 [facility] POCT GLUCOSE (AUTOMATED) 2022-09-04 05:31:[address] [facility] XR CHEST 1 VW 2022-09-03 22:42:[address] [facility] [place] LIPASE 2022-09-03 22:26:[address] [facility] [place] [place] TROPONIN I 2022-09-03 22:26:[address] [facility] [place] [place] COMP. METABOLIC PANEL 2022-09-03 22:26:00 Andrade Murali [facility] ([id number]) [facility] [place] CBC WITH DIFF 2022-09-03 22:26:[address] [facility] [place] [place] GLYCOSYLATED HEMOGLOBIN 2022-09-03 22:26:00 Jaxon Sutton [facility] (A1C) Medical Branch ACTIVATED PARTIAL 2022-09-03 22:26:00 Andrade [facility] THRMPLAS KAR [facility] N-TERMINAL PRO-BNP 2022-09-03 22:26:00 Murali Zafar [facility] NOTICE OF PRIVACY 2022-09-03 21:52:55 Doctor Unassigned, [facility] PRACTICES [place] CONSENT/REFUSAL FOR 2022-09-03 21:52:24 Doctor Unassigned, [facility] DIAGNOSIS AND TREATMENT [place] [facility] POCT GLUCOSE (AUTOMATED) 2022-04-23 18:58:00 Cholo Love [facility] POCT GLUCOSE (AUTOMATED) 2022-04-23 15:35:00 Cholo Love [facility] POCT GLUCOSE (AUTOMATED) 2022-04-23 12:41:00 Cholo Love [facility] POCT GLUCOSE (AUTOMATED) 2022-04-23 11:33:[address] [facility] MAGNESIUM 2022-04-23 09:33:00 Sachin [facility] BASIC METABOLIC PANEL 2022-04-23 09:33:00 Sachin Mcallister [facility] (NA, K, CL, CO2, GLUCOSE, Medica l Branch BUN, CREATININE, CA) POCT GLUCOSE (AUTOMATED) 2022-04-23 09:33:[address] [facility] POCT GLUCOSE (AUTOMATED) 2022-04-23 07:17:[address] [facility] POCT GLUCOSE (AUTOMATED) 2022-04-23 05:25:[address] [facility] POCT GLUCOSE (AUTOMATED) 2022-04-23 04:07:00 Cholo Love [facility] POCT GLUCOSE (AUTOMATED) 2022-04-23 03:09:00 Cholo Love Uni versity of [facility] Branch POCT GLUCOSE (AUTOMATED) 2022-04-23 02:22:00 Cholo Love Uni versity of [facility] BASIC METABOLIC PANEL 2022-04-23 01:15:00 Annette Holland [facility] (NA, K, CL, CO2, GLUCOSE, Medica l Branch BUN, CREATININE, CA) POCT GLUCOSE (AUTOMATED) 2022-04-23 01:15:00 Cholo Love Uni vers[facility] POCT GLUCOSE (AUTOMATED) 2022-04-23 00:02:00 Cholo Love [facility] POCT GLUCOSE (AUTOMATED) 2022-04-22 23:01:00 Sachin Mcallister versity of [facility] POCT GLUCOSE (AUTOMATED) 2022-04-22 22:05:00 Sachin Mcallister versity of [facility] BASIC METABOLIC PANEL 2022-04-22 21:05:00 Annette Holland [facility] (NA, K, CL, CO2, GLUCOSE, Medica l Branch BUN, CREATININE, CA) POCT GLUCOSE (AUTOMATED) 2022-04-22 21:02:00 Sachin Mcallister [facility] POCT GLUCOSE (AUTOMATED) 2022-04-22 19:45:00 Sachin Mcallister vers[facility] of [facility] POCT GLUCOSE (AUTOMATED) 2022-04-22 18:42:00 Sachin Mcallister vers[facility] of [facility] POCT GLUCOSE (AUTOMATED) 2022-04-22 17:22:00 Cholo Love [facility] POCT GLUCOSE (AUTOMATED) 2022-04-22 16:05:00 Cholo Love Uni vers[facility] TROPONIN I 2022-04-22 15:33:00 Sachin Mcallister o f [facility] BASIC METABOLIC PANEL 2022-04-22 15:33:00 Annette Holland [facility] (NA, K, CL, CO2, GLUCOSE, Medica l Branch BUN, CREATININE, CA) CBC WITH DIFF 2022-04-22 15:33:00 Cholo Love o f [facility] POCT GLUCOSE (AUTOMATED) 2022-04-22 14:25:00 [facility] 2022-04-22 13:39:00 Kate Cholo [facility] POCT GLUCOSE (AUTOMATED) 2022-04-22 12:26:00 Cholo Love Uni versity [facility] POCT GLUCOSE (AUTOMATED) 2022-04-22 11:30:00 [facility]OLIC PANEL 2022-04-22 10:51:00 Annette Holland [facility] (NA, K, CL, CO2, GLUCOSE, Medica l Branch BUN, CREATININE, CA) POCT GLUCOSE (AUTOMATED) 2022-04-22 10:47:00 [facility]SE ([facility]OM[facility]) 2022-04-22 10:44:00 Kate Cholo Uni versity [facility] POCT GLUCOSE (AUTOMATED) 2022-04-22 09:32:00 Kate Cholo Uni versity [facility] POCT GLUCOSE (AUTOMATED) 2022-04-22 08:34:[address] [facility] BASIC METABOLIC PANEL 2022-04-22 07:39:00 Annette Holland [facility] (NA, K, CL, CO2, GLUCOSE, Medica l Branch BUN, CREATININE, CA) POCT GLUCOSE (AUTOMATED) 2022-04-22 07:33:00 Kate Cholo Uni versity [facility] POCT GLUCOSE (AUTOMATED) 2022-04-22 06:29:00 Kate Cholo [facility] BASIC METABOLIC PANEL 2022-04-22 05:30:00 Annette Holland [facility] (NA, K, CL, CO2, GLUCOSE, Medica l Branch BUN, CREATININE, CA) POCT GLUCOSE (AUTOMATED) 2022-04-22 05:29:00 Kate Cholo Uni versity [facility] POCT GLUCOSE (AUTOMATED) 2022-04-22 04:32:00 Cholo Love [facility] POCT GLUCOSE (AUTOMATED) 2022-04-22 03:40:00 [facility] S[facility]EN BY 2022-04-22 03:30:00 [facility] LACTIC ACID WHOLE BLOOD 2022-04-22 03:09:00 [facility]) 2022-04-22 02:14:00 Cholo Love [facility] COVID-19 (ID NOW RAPID 2022-04-22 01:25:[facility] ONLY COVID 2022-04-22 01:25:00 [facility] URINALYSIS 2022-04-22 01:23:[address] [facility] [place] [place] BASIC METABOLIC PANEL 2022-04-22 01:14:00 Annette Holland [facility] (NA, K, CL, CO2, GLUCOSE, Medica l Branch BUN, CREATININE, CA) OSMOLALITY, SERUM OR 2022-04-22 01:11:00 Annette Holland [facility] PLASMA [facility] BETA HYDROXY-BUTYRATE 2022-04-22 01:11:00 Annette Holland [facility] POCT GLUCOSE (AUTOMATED) 2022-04-22 01:08:00 Cholo Love [facility] CT ABDOMEN PELVIS W 2022-04-22 00:25:33 Annette Holland [facility] CONTRAST [facility] XR CHEST 1 VW 2022-04-22 00:18:[address] [facility] [place] [place] AC PANEL 21 + LACTIC ACID 2022-04-22 00:04:00 [facility] 2022-04-21 23:11:[address] [facility] [place] [place] PHOSPHORUS 2022-04-21 23:05:[address] [facility] [place] [place] LIPASE 2022-04-21 23:05:00 Annette Holland [facility] MAGNESIUM 2022-04-21 23:05:00 Annette Holland [facility] TROPONIN I 2022-04-21 23:05:00 Annette Holland [facility] COMP. METABOLIC PANEL 2022-04-21 23:05:00 Annette Holland [facility] ([id number]) [facility] CBC WITH DIFF 2022-04-21 23:05:00 Annette Holladn [facility] GLYCOSYLATED HEMOGLOBIN 2022-04-21 23:05:00 Annette Holland [facility] (A1C) [facility] PROTHROMBIN TIME / INR 2022-04-21 23:05:00 Annette Holland [facility] N-TERMINAL PRO-BNP 2022-04-21 23:05:00 Annette Holland [facility] HB ECG ROUTINE & RHYTHM 2022-04-21 22:57:52 Annette Holland [facility] CONSENT/REFUSAL FOR 2022-04-21 22:36:06 Doctor Unajeimy, [facility] DIAGNOSIS AND TREATMENT [place] [facility] NOTICE OF PRIVACY 2022-04-21 22:34:32 Doctor Unajeimy, [facility] PRACTICES [place] [facility] Encounters Start End Encounter Admission Attending Care Care Encounter Source Date/Time Date/Time Type Type Clinicians Facility Department ID 2023-11-10 2023-11-10 Outpatient MAISHA MORENO [id number] Maisha 15:15:00 15:15:00 WENDY Seybol d 2023-09-24 2023-09-24 Outpatient MAISHA SEQUEIRA [id number] Maisha 00:00:00 00:00:00 JOHN Seybol d 2023-08-07 2023-08-07 Outpatient MAISHA MORENO [id number] Maisha 15:15:00 15:15:00 WENDY Seybol d 2023-07-31 2023-07-31 Outpatient MAISHA MORENO [id number] Maisha 16:45:00 16:45:00 WENDY Seybol d 2023-06-26 2023-06-26 Outpatient LYUBOV FERNÁNDEZ MAISHA MAISHA [id number] Maisha 14:40:00 14:40:00 Seybol d 2023-05-14 2023-05-14 Outpatient CRISTINO MAISHA EVANS [id number] Maisha 00:00:00 00:00:00 MD TORY Seybol d 2023-04-23 2023-04-23 Outpatient ROHINI CHAMBERS MAISHA EVANS [id number] Maisha 16:00:00 16:00:00 Seybol d 2023-04-23 2023-04-23 Outpatient BAMIDELE MAISHA EVANS [id number] Maisha 13:30:00 13:30:00 JOHN Seybol d 2023-04-21 2023-04-21 Outpatient YAYALaithMAISHA [id number] Maisha 08:00:00 08:00:00 MARCELLE Seybol d 2023-04-17 2023-04-17 Outpatient JOSHMAISHA [id number] Maisha 09:15:00 09:15:00 WENDY Seybol d 2023-04-16 2023-04-16 Outpatient MYMAISHAONL MAISHA EVANS [id number] Maisha 00:00:00 00:00:00 MD TORY Seybol d 2023-04-14 2023-04-14 Outpatient AUDRAMAISHA [id number] Maisha 00:00:00 00:00:00 MARCELLE Seybol d 2023-04-10 2023-04-10 Outpatient HUNDLMAISHA [id number] Maisha 00:00:00 00:00:00 MARCELLE Seybol d 2023-04-09 2023-04-09 Outpatient HUNDL, MAISHA EVANS [id number] Maisha 00:00:00 00:00:00 MARCELLE Seybol d 2023-04-08 2023-04-08 Outpatient HUNDLMAISHA [id number] Maisha 08:00:00 08:00:00 MARCELLE Seybol d 2023-04-08 2023-04-08 Outpatient GROUP, MAISHA EVANS [id number] Maisha 00:00:00 00:00:00 MAISHA Seybol d 2023-04-08 2023-04-08 Outpatient JOSH MAISHA EVANS [id number] Maisha 00:00:00 00:00:00 WENDY Seybol d 2023-04-08 2023-04-08 Outpatient RADHA GAMINO MAISHA EVANS [id number] Maisha 00:00:00 00:00:00 Seybol d 2023-04-07 2023-04-07 Outpatient MIKATyreseMAISHA [id number] Maisha 00:00:00 00:00:00 JOHN Seybol d 2023-04-02 2023-04-02 Outpatient LAB47 MAISHA EVANS [id number] Maisha 10:20:00 10:20:00 Seybol d 2023-04-02 2023-04-02 Outpatient MIKATyrese MAISHA EVANS [id number] Maisha 09:00:00 09:00:00 JOHN Seybol d 2023-04-02 2023-04-02 Outpatient TOBYUK MAISHA EVANS [id number] Maisha 00:00:00 00:00:00 AKBAR Seybol d 2022-11-13 2022-11-13 Transition TIFFANIE Botello [id number] Univers 00:00:00 00:00:00 of Care Florence SANCHEZ 350.1.13.10 i ty of [place] 4.2.7.2.686 [facility] [id number] [facility] [address] Branch 2022-11-09 2022-11-12 Inpatient X KATE [facility] JOSE ENRIQUE [id number] Univers 21:02:00 15:36:00 CHOLO ity [facility] 2022-11-09 2022-11-12 Hospital Murali Zafar [facility] 1.2.840.1 [id number] Univers 21:02:00 15:36:00 Encounter Dawna Kaur 350.1.13.10 ity Cholo Love 4.2.7.2.686 [facility] [id number] [facility] 080 Branch 2022-11-12 2022-11-12 Telephone WANDA Vu 1.2.840.114 [id number] Univers 00:00:00 00:00:00 Nata Rae ALYSHA 350.1.13.10 i ty of [facility] 4.2.7.2.686 Alex as [id number] [facility] 025 Branch 2022-11-10 2022-11-10 Transition TIFFANIE Botello 1.2.840.114 [id number] Univers 00:00:00 00:00:00 of Care Florence SANCHEZ 350.1.13.10 i ty [place] [id number] [facility] 403 Branch 2022-11-05 2022-11-07 Inpatient X MARYAM [facility] [id number] Univers 21:27:00 17:37:00 [facility] 2022-11-05 2022-11-07 [facility] Murali Zafar 1.2.840.1 [id number] Univers 21:27:00 17:37:00 Encounter Gerson Palomino 350.1.13.10 [facility] 4.2.7.2.686 [place] [id number] [facility] 096 Branch 2022-10-31 2022-10-31 Outpatient [facility] [id number] Ron 13:11:41 13:11:41 [address] 2022-09-24 2022-09-24 Outpatient Lukasz Bejarano [facility] LA0 [id number] [facility] 08:23:00 08:23:00 28 [facility] 2022-09-08 2022-09-08 Outpatient R WILLIAM [facility] [id number] Univers 00:00:00 00:00:00 JAXON [facility] 2022-09-03 2022-09-04 Outpatient X CARLOS [facility] [id number] Univers 17:08:00 13:45:00 JAI [facility] 2022-09-03 2022-09-04 Emergency Murali Zafar [facility] 1.2.840. 114 [id number] Univers 17:08:00 13:45:00 Sachin Mcallister 350.1.13.10 ity of Jai Gonzalez 4.2.7.2.686 [facility] [id number] [facility] 0[address] Branch 2022-08-20 2022-08-20 Outpatient SIRI Franklin CPUL [id number] [facility] 19:28:00 19:28:00 Sang 80 [facility] 2022-04-24 2022-04-24 Transition TIFFANIE Botello 1.2.840.114 [id number] Univers 00:00:00 00:00:00 of Care Florence SANCHEZ 350.1.13.10 i ty [place] [id number] [facility] [address] 2022-04-21 2022-04-23 Inpatient X ESVIN [facility] [id number] Univers 17:49:00 15:15:00 SACHIN mcknight [facility] 2022-04-21 2022-04-23 Hospital Annette Holland [facility] 1.2.840. 114 [id number] Univers 17:49:00 15:15:00 Encounter Cholo Love 350.1.13.10 ity of Sachin Mcallister 4.2.7.2.686 [facility] [id number] [facility] 0[address] Branch 2021-12-24 2021-12-24 Outpatient COH COH PIJFIFF DTZ COH 00:00:00 00:00:00 -[id number] 2021-09-30 2021-09-30 Outpatient Butch RUBIN [facility] [id number] Univers 14:00:00 14:00:00 GERSON mcknight [facility] 2021-09-30 2021-09-30 Office Dustin Cervantes [facility] 1.2.8 40.114 [id number] Univers 13:25:55 13:55:55 Visit Gerson Rubin 350.1.13 .10 it[id number] [place] emerson [address] 2021-09-30 2021-09-30 Orders Doctor MUÑOZ 1.2.840.114 [id number] Univers 00:00:00 00:00:00 Only Unassigned, ALYSHA 350.1.13.10 ity of [place] [facility] 4.2.7.2.686 Alex as [id number] [facility] [address] [place] 2021-08-09 2021-08-09 Orders Doctor WANDA 1.2.840.114 [id number] Univers 00:00:00 00:00:00 Only Unassigned, ALYSHA 350.1.13.10 ity of [place] [facility] 4.2.7.2.686 Alex as [id number] [facility] [address] Branch 2021-07-02 2021-07-02 Emergency Taylor, [facility] 1.2.589.500 [id number] Univers 15:02:00 21:52:00 Marlene S Federico 350.1.13.10 i ty of [place] 4.2.7.2.686 [place] [facility] [id number] [place] [id number] [place] 2021-07-02 2021-07-02 Emergency X [facility] ERT [id number] Univers 14:36:00 14:36:00 [facility] Results Test Description Test Time Test Comments Results Result Comments Source REAGENT STRIP/BLOOD GLUCOSE 2023-04-17 00:00:00 Test Item Value Reference Range Interpretation Comme nts BLOOD SUGAR (test code = 200291) 263 mg/dL 65-99 A Lab Interpretation (test code = 18883-9) Abnormal Maisha Seybold - ExternalTELERETINAL DIABETIC [id number] 15:16:00 Test Item Value Reference Range Interpretation Comments IMP (test code = IMP) 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 PlanRepeat diabetic retinopathy screening in 1 year Lab Interpretation Abnormal (test code = 75159-9) Maisha Seybold - ExternalPOCT GLUCOSE (AUTOMATED)2022-11-12 17:36:05 Test Item Value Reference Range Interpretation Comments POCT GLU (test code = 1306983542) 186 mg/dL 70-110 H Lab Interpretation (test code = Abnormal 20983-5) [facility] 14:01:05 Test Item Value Reference Range Interpretation Comments POCT GLU (test code = 5192081117) 143 mg/dL 70-110 H Lab Interpretation (test code = Abnormal 53604-7) [facility] 02:11:38 Test Item Value Reference Range Interpretation Comments POCT GLU (test code = 7942987937) 185 mg/dL 70-110 H Lab Interpretation (test code = Abnormal 90158-3) [facility] GLUCOSE (AUTOMATED)2022-11-11 22:21:02 Test Item Value Reference Range Interpretation Comments POCT GLU (test code = 2845359229) 153 mg/dL 70-110 H Lab Interpretation (test code = Abnormal 50734-3) [facility]2022-11-11 17:34:44 Test Item Value Reference Range Interpretation Comments POCT GLU (test code = 6307449004) 158 mg/dL 70-110 H Lab Interpretation (test code = Abnormal 54401-1) [facility] GLUCOSE (AUTOMATED)2022-11-11 13:54:40 Test Item Value Reference Range Interpretation Comments POCT GLU (test code = 7506371039) 145 mg/dL 70-110 H Lab Interpretation (test code = Abnormal 41485-1) [facility]22-11-11 02:46:38 Test Item Value Reference Range Interpretation Comments POCT GLU (test code = 2196212909) 230 mg/dL 70-110 H Lab Interpretation (test code = Abnormal 39790-5) [facility]2022-11-10 22:41:53 Test Item Value Reference Range Interpretation Comments POCT GLU (test code = 8336318243) 161 mg/dL 70-110 H Lab Interpretation (test code = Abnormal 43790-8) [facility]22-11-10 22:09:00 Test Item Value Reference Range Interpretation Comments POCT GLU (test code = 6756359337) 140 mg/dL 70-110 H Lab Interpretation (test code = Abnormal 93073-8) [facility]22-11-10 14:40:30 Test Item Value Reference Range Interpretation Comments POCT GLU (test code = 8468715930) 140 mg/dL 70-110 H Lab Interpretation (test code = Abnormal 73517-2) [facility]22-11-10 13:39:06 Test Item Value Reference Range Interpretation Comments POCT GLU (test code = 5340965345) 129 mg/dL 70-110 H Lab Interpretation (test code = Abnormal 32905-4) [facility] GLUCOSE (AUTOMATED)2022-11-10 03:12:17 Test Item Value Reference Range Interpretation Comments POCT GLU (test code = 9003646841) 142 mg/dL 70-110 H Lab Interpretation (test code = Abnormal 20603-9) [facility] GLUCOSE (AUTOMATED)2022-11-07 22:01:53 Test Item Value Reference Range Interpretation Comments POCT GLU (test code = 0542303120) 150 mg/dL 70-110 H Lab Interpretation (test code = Abnormal 79343-0) [facility] GLUCOSE (AUTOMATED)2022-11-07 17:30:01 Test Item Value Reference Range Interpretation Comments POCT GLU (test code = 1793254485) 178 mg/dL 70-110 H Lab Interpretation (test code = Abnormal 86509-2) [facility] GLUCOSE (AUTOMATED)2022-11-07 14:17:47 Test Item Value Reference Range Interpretation Comments POCT GLU (test code = 7933110711) 156 mg/dL 70-110 H Lab Interpretation (test code = Abnormal 63523-5) [facility] GLUCOSE (AUTOMATED)2022-11-07 03:33:30 Test Item Value Reference Range Interpretation Comments POCT GLU (test code = 8837634190) 153 mg/dL 70-110 H Lab Interpretation (test code = Abnormal 41433-3) [facility] GLUCOSE (AUTOMATED)2022-11-06 22:57:40 Test Item Value Reference Range Interpretation Comments POCT GLU (test code = 7835578397) 139 mg/dL 70-110 H Lab Interpretation (test code = Abnormal 32689-2) [facility] [id number] 22:26:29 Test Item Value Reference Range Interpretation Comments BOH (test code = 3.0 mmol/L 4417458767) ZULEIMA (test code = Normal Ranges: ? ? ZULEIMA) Nonfasting ? Less than 0.1 mmol/L ? ? Overnight Fast ? ? ? Less than 0.4 mmol/L ? ? Fasting (1-2 weeks) ?6-8 mmol/L Test developed and characteristics determined by [facility] Laboratory Services. [facility] [place] Metabolic Panel (Na, K, Cl, CO2, Glucose, BUN, Creatinine, Ca)2022-11-06 21:22:03 Test Item Value Reference Range Interpretation Comments NA (test code = 136 mmol/L 135-145 [id number]) K (test code = 3.9 mmol/L 3.5-5.0 Slight [id number]) hemolysis CL (test code = 109 mmol/L 98-108 H [id number]) CO2 TOTAL (test code 15 mmol/L 23-31 L = 3999031082) AGAP (test code = 2-16 1918661461) BUN (test code = 7-23 L Slight 6700780667) hemolysis GLUCOSE (test code = 171 mg/dL 70-110 H 9483699952) CREATININE (test code 0.49 mg/dL 0.60-1.25 L = 4153061919) CALCIUM (test code = 7.9 mg/dL 8.6-10.6 L 6155315455) eGFR (test code = mL/min/1.73m2 8585798329) ZULEIMA (test code = ZULEIMA) Association of [...] tests). Lab Interpretation Abnormal (test code = 93030-3) [facility] 16:16:50 Test Item Value Reference Range Interpretation Comments POCT GLU (test code = 8467296954) 163 mg/dL 70-110 H Lab Interpretation (test code = Abnormal 56103-8) [facility] (Na, K, Cl, CO2, Glucose, BUN, Creatinine, Ca)2022-11-06 12:51:08 Test Item Value Reference Range Interpretation Comments NA (test code = 135 mmol/L 135-145 0165454679) K (test code = 4.7 mmol/L 3.5-5.0 Slight 9349258405) hemolysis CL (test code = 110 mmol/L 98-108 H 4833658213) CO2 TOTAL (test code 12 mmol/L 23-31 L = 2487584693) AGAP (test code = 2-16 6351831596) BUN (test code = 3 mg/dL 7-23 L Slight 7000650189) hemolysis GLUCOSE (test code = 152 mg/dL 70-110 H 3833818665) CREATININE (test code 0.62 mg/dL 0.60-1.25 = 6468205759) CALCIUM (test code = 8.3 mg/dL 8.6-10.6 L 6297592764) eGFR (test code = mL/min/1.73m2 3576710417) ZULEIMA (test code = ZULEIMA) Association of [...] tests). Lab Interpretation Abnormal (test code = 08268-9) [facility] GLUCOSE (AUTOMATED)2022-11-06 11:27:27 Test Item Value Reference Range Interpretation Comments POCT GLU (test code = 2925347779) 139 mg/dL 70-110 H Lab Interpretation (test code = Abnormal 76415-8) [facility] GLUCOSE (AUTOMATED)2022-11-06 09:28:37 Test Item Value Reference Range Interpretation Comments POCT GLU (test code = 5623352980) 137 mg/dL 70-110 H Lab Interpretation (test code = Abnormal 38537-4) [facility] GLUCOSE(AGE >30DAYS)2022-11-06 08:15:00 Test Item Value Reference Range Interpretation Comments POCT Glu (age>30days) (test code = 107 mg/dL 70-110 3342) Lab Interpretation (test code = Normal 87628-3) [facility] GLUCOSE (AUTOMATED)2022-11-06 06:58:20 Test Item Value Reference Range Interpretation Comments POCT GLU (test code = 4621744268) 96 mg/dL 70-110 Lab Interpretation (test code = Normal 63162-3) [facility] GLUCOSE(AGE >30DAYS)2022-11-06 06:58:00 Test Item Value Reference Range Interpretation Comments POCT Glu (age>30days) (test code = 96 mg/dL 70-110 3342) Lab Interpretation (test code = Normal 15890-3) [facility] [id number] 05:12:24 Test Item Value Reference Interpretation Comments Range TROPONIN I (test 0.003 ng/mL See_Comment [Automated code = 7901276376) message] The system which generated this result [...] biotin. Lab Interpretation Normal (test code = 83431-1) [facility] [id number] 05:09:22 Test Item Value Reference Range Interpretation Comments NT-proBNP (test code 58 pg/mL See_Comment [Autom ated = 9629460292) message] The system which generated this result transmitted reference range : <=125. The reference range was not used to interpret this result as normal/abnormal . ZULEIMA (test code = ZULEIMA) Biotin has been reported to cause a negative bias, interpret results relative to patient's use of biotin. Lab Interpretation Normal (test code = 08828-4) [facility] (64723)2022-11-06 05:00:43 Test Item Value Reference Range Interpretation Comments NA (test code = 135 mmol/L 135-145 2176467099) K (test code = 4.3 mmol/L 3.5-5.0 7152405514) CL (test code = 106 mmol/L 98-108 4177782711) CO2 TOTAL (test code = 11 mmol/L 23-31 L 8849475295) AGAP (test code = 2-16 H 4681289168) BUN (test code = 3 mg/dL 7-23 L 9042064100) GLUCOSE (test code = 129 mg/dL 70-110 H 0041486387) CREATININE (test code = 0.71 mg/dL 0.60-1.25 7164996888) TOTAL BILI (test code = 1.0 mg/dL 0.1-1.0 8440801227) CALCIUM (test code = 8.7 mg/dL 8.6-10.6 3686530464) T PROTEIN (test code = 6.6 g/dL 6.3-8.2 4890978117) ALBUMIN (test code = 3.9 g/dL 3.5-5.0 8162297895) ALK PHOS (test code = 85 U/L 34-122 0756198067) ALTv (test code = 125 U/L 5-50 H 2-6) AST(SGOT) (test code = 39 U/L 13-40 6064790731) eGFR (test code = mL/min/1.73m2 7531408366) ZULEIMA (test code = ZULEIMA) Association of [...] tests). Lab Interpretation Abnormal (test code = 02054-3) [facility] 05[facility]00:43 Test Item Value Reference Range Interpretation Comments LIPASE (test code = 0705396043) 105 U/L 0-220 Lab Interpretation (test code = Normal 05695-1) [facility] WITH [id number] 04:33:58 Test Item Value Reference Range Interpretation [...] RDW-SD (test code = 47.2 fL 38.5-51.6 51925-9) RDW-CV (test code = 14.2 % 12.1-15.4 788-0) PLT (test code = See_Comment [Automated 777-3) message] The sy stem which generated this result transmitted reference range : 150 - 328 10*3/ ?L. The reference r oleg was not used to interpret this result as normal/abnormal . MPV (test code = 8.5 fL 9.8-13.0 L 20340-9) NRBC/100 WBC (test See_Comment [Automat ed code = 1781145608) message] The system which generated this result transmitted reference range : 0.0 - 10.0 /100 WBCs. The refer ence range was not u sed to interpret th is result as normal/abnormal . NRBC x10^3 (test code See_Comment [Auto mated = 9071734059) message] The s ystem which generated this result transmitted reference range : 10*3/?L. The reference range was not used to interpret this result as normal/abnormal . GRAN MAT (NEUT) % 53.8 % (test code = 770-8) IMM GRAN % (test code 0.60 % = 7059797411) LYMPH % (test code = 34.6 % 736-9) MONO % (test code = 8.3 % 5905-5) EOS % (test code = 2.4 % 713-8) BASO % (test code = 0.3 % 706-2) GRAN MAT x10^3(ANC) 3.85 10*3/uL 1.99-6.95 (test code = 9863555758) IMM GRAN x10^3 (test 0.04 10*3/uL 0.00-0.06 code = 3626309633) LYMPH x10^3 (test code 2.47 10*3/uL 1.09-3.23 = 731-0) MONO x10^3 (test code 0.59 10*3/uL 0.36-1.02 = 742-7) EOS x10^3 (test code = 0.17 10*3/uL 0.06-0.53 711-2) BASO x10^3 (test code 0.01-0.09 = 704-7) Lab Interpretation Abnormal (test code = 67029-5) [facility] 1 [id number] 09:27:00 [facility] : 1970 Sex: M [facility] [place] : 1970 Age/S: 51 / M [id number] [address] [facility] [place] Unit #: [id number]: [place] [address] Phys: Randall Veloz MD Acct: [id number] Dis Date: Status: [facility] PHONE #: [phone] Exam Date: 09/24/202210 FAX #: Reason: PRE OP EXAMS: CPT: [id number] XR CHEST 1V 00923 Fluoro Time: DAP (Gy m2): Air Kerma (mGy): EXAMINATION: - XR CHEST 1 V. LOCATION: 9. HISTORY: PRE OP, GERD. COMPARISON: None. FINDINGS: Examination is limited due to portable technique and patient body habitus. Cardiac silhouette/Mediastinal contour: Prominence of cardiac silhouette. Lungs:No focal consolidation. No large pleural effusion. Osseous Structures: Mild degenerative changes affect thoracic spine. IMPRESSION: No focal consolidation. Prominence of cardiac silhouette. at 0927 Reported and signed by: Sil Hooks M.D. CC: Randall Veloz MD; Lukasz Saul MD PAGE 1 Signed Report Name: DANIEL LEHMAN [facility] : 1970 Age/S: 51 / M [id number] [address] [facility] [place] Unit #: [id number] Loc: [place] [address] Phys: Randall Veloz MD Acct: [id number] Dis Date: Status: [facility] PHONE #: [phone] Exam Date: 09/24/202210 FAX #: Reason: PRE OP EXAMS: CPT: [id number] XR CHEST 1 V 64131 Fluoro Time: DAP (Gy m2): Air Kerma (mGy): (Continued) Technologist: Delano Sorenson, RT(R)(CT) Trnscb Date/Time: 09/24/2022 (5248) [email or web address] Orig Print D/T: S: 09/24/2022 (9536) PAGE 2 [facility]AUTO [id number] 09:06:00 Test Item Value Reference Range Interpretation [...] NO DIFF/SCN CRITERIA = MDIFF) BASIC METABOLIC [id number] 09:00:00 Test Item Value Reference Range Interpretation [...] 8.9 MG/DL 8.5-10.1 N COVID 19 INHOUSE [id number] 08:52:00 Test Item Value Reference Range Interpretation Comments COVID 19 INHOUSE AG NEGATIVE Negative Per manu facturer, (test code = negative result s should [id number]) be treated aspr esumptive and, if inconsi [...] Interpretation Comments POCT GLU (test code = 3607403340) 193 mg/dL 70-110 H Lab Interpretation (test code = Abnormal 59620-4) [facility] GLUCOSE (AUTOMATED)2022-09-04 13:42:12 Test Item Value Reference Range Interpretation Comments POCT GLU (test code = 2901399605) 185 mg/dL 70-110 H Lab Interpretation (test code = Abnormal 42160-2) [facility] GLUCOSE (AUTOMATED)2022-09-04 05:36:51 Test Item Value Reference Range Interpretation Comments POCT GLU (test code = 0230919189) 204 mg/dL 70-110 H Lab Interpretation (test code = Abnormal 07039-8) [facility] (A1C)2022-09-04 05:24:19 Test Item Value Reference Range Interpretation Comments HGB A1C (test code = 9.2 % 4-5.7 H 4548-4) ZULEIMA (test code = ZULEIMA) Reference RangesNormal: <5.7%Prediabetes: 5.7 - 6.4%Diabetes: > 6.5% Lab Interpretation (test Abnormal code = 67827-5) [facility] [id number] 22:58:29 Test Item Value Reference Interpretation Comments Range TROPONIN I (test 0.002 ng/mL See_Comment [Automated code = 3203199653) message] The system which generated this result [...] biotin. Lab Interpretation Normal (test code = 91822-0) [facility] [id number] 22:55:11 Test Item Value Reference Range Interpretation Comments NT-proBNP (test code 29 pg/mL See_Comment [Autom ated = 6866604033) message] The system which generated this result transmitted reference range : <=125. The reference range was not used to interpret this result as normal/abnormal . ZULEIMA (test code = ZULEIMA) Biotin has been reported to cause a negative bias, interpret results relative to patient's use of biotin. Lab Interpretation Normal (test code = 31072-5) [facility] CenterACTIV[facility] THRMPLAS [id number] 22:51:28 Test Item Value Reference Range Interpretation Comments APTT Patient (test See_Comment L [Automat ed code = 3173-2) message] The system which generated this result transmitted reference range : 23 - 38 Seconds . The reference range was not used to interpr et this result as normal/abnormal . ZULEIMA (test code = ZULEIMA) The [facility] patient population mean normal value for aPTT is 30 seconds. Lab Interpretation Abnormal (test code = 07294-1) [facility] PAN[facility] (53797)2022-09-03 22:46:28 Test Item Value Reference Range Interpretation Comments NA (test code = 137 mmol/L 135-145 3287780700) K (test code = 5.1 mmol/L 3.5-5 H 1628597900) CL (test code = 103 mmol/L 98-108 3968503435) CO2 TOTAL (test code = 21 mmol/L 23-31 L 6217797063) AGAP (test code = 2-16 2600299833) BUN (test code = 18 mg/dL 7-23 3776426988) GLUCOSE (test code = 360 mg/dL 70-110 H 8537371553) CREATININE (test code = 0.84 mg/dL 0.6-1.25 5832223125) TOTAL BILI (test code = 0.7 mg/dL 0.1-1.2 5561792654) CALCIUM (test code = 9.2 mg/dL 8.6-10.6 7725838661) T PROTEIN (test code = 6.7 g/dL 6.3-8.2 9604660908) ALBUMIN (test code = 4.3 g/dL 3.5-5 8325957331) ALK PHOS (test code = 140 U/L 34-122 H 8854161714) ALTv (test code = 727 U/L 5-50 H 1742-6) AST(SGOT) (test code = 348 U/L 13-40 H 8324342763) eGFR (test code = mL/min/1.73m2 9923512037) ZULEIMA (test code = ZULEIMA) Association of [...] tests). Lab Interpretation Abnormal (test code = 02252-6) [facility] 22:46:09 Test Item Value Reference Range Interpretation Comments LIPASE (test code = 2249016173) 252 U/L 0-220 H Lab Interpretation (test code = Abnormal 13566-2) [facility] WITH [id number] 22:35:24 Test Item Value Reference Range Interpretation [...] RDW-SD (test code = 50.6 fL 38.5-51.6 05452-3) RDW-CV (test code = 16.0 % 12.1-15.4 H 788-0) PLT (test code = See_Comment [Automated 777-3) message] The sy stem which generated this result transmitted reference range : 150 - 328 10*3/ ?L. The reference r oleg was not used to interpret this result as normal/abnormal . MPV (test code = 9.1 fL 9.8-13 L 00783-4) NRBC/100 WBC (test See_Comment [Automat ed code = 3427105544) message] The system which generated this result transmitted reference range : 0.0 - 10.0 /100 WBCs. The refer ence range was not u sed to interpret th is result as normal/abnormal . NRBC x10^3 (test code See_Comment [Auto mated = 0175510730) message] The s ystem which generated this result transmitted reference range : 10*3/?L. The reference range was not used to interpret this result as normal/abnormal . GRAN MAT (NEUT) % 74.4 % (test code = 770-8) IMM GRAN % (test code 1.60 % = 5926065522) LYMPH % (test code = 17.8 % 736-9) MONO % (test code = 5.7 % 5905-5) EOS % (test code = 0.1 % 713-8) BASO % (test code = 0.4 % 706-2) GRAN MAT x10^3(ANC) 6.35 10*3/uL 1.99-6.95 (test code = 0102979996) IMM GRAN x10^3 (test 0.14 10*3/uL 0-0.06 H code = 6148138420) LYMPH x10^3 (test code 1.52 10*3/uL 1.09-3.23 = 731-0) MONO x10^3 (test code 0.49 10*3/uL 0.36-1.02 = 742-7) EOS x10^3 (test code = 0.06-0.53 L 711-2) BASO x10^3 (test code 0.03 10*3/uL 0.01-0.09 = 704-7) Lab Interpretation Abnormal (test code = 12966-0) [facility] GLUCOSE (AUTOMATED)2022-04-23 19:01:02 Test Item Value Reference Range Interpretation Comments POCT GLU (test code = 9577631259) 174 mg/dL 70-110 H Lab Interpretation (test code = Abnormal 96925-9) [facility] GLUCOSE (AUTOMATED)2022-04-23 16:43:23 Test Item Value Reference Range Interpretation Comments POCT GLU (test code = 0137768098) 162 mg/dL 70-110 H Lab Interpretation (test code = Abnormal 86581-5) [facility] GLUCOSE (AUTOMATED)2022-04-23 15:37:41 Test Item Value Reference Range Interpretation Comments POCT GLU (test code = 8536013404) 130 mg/dL 70-110 H Lab Interpretation (test code = Abnormal 42221-0) [facility] GLUCOSE (AUTOMATED)2022-04-23 12:54:00 Test Item Value Reference Range Interpretation Comments POCT GLU (test code = 4580190042) 135 mg/dL 70-110 H Lab Interpretation (test code = Abnormal 65060-6) [facility] METABOLIC PANEL (NA, K, CL, CO2, GLUCOSE, BUN, CREATININE, CA)2022-04-23 11:38:26 Test Item Value Reference Range Interpretation Comments NA (test code = 137 mmol/L 135-145 5654789886) K (test code = 3.2 mmol/L 3.5-5.0 L 1161266238) CL (test code = 110 mmol/L 98-108 H 4778271872) CO2 TOTAL (test code = 19 mmol/L 23-31 L 6572889473) AGAP (test code = 2-16 4227333613) BUN (test code = <2 7-23 L 4682143341) GLUCOSE (test code = 121 mg/dL 70-110 H 0112739050) CREATININE (test code = 0.67 mg/dL 0.60-1.25 1323164121) CALCIUM (test code = 7.7 mg/dL 8.6-10.6 L 3113282996) eGFR (test code = mL/min/1.73m2 9460625461) ZULEIMA (test code = ZULEIMA) Association of [...] tests). Lab Interpretation Abnormal (test code = 52610-2) [facility] GLUCOSE (AUTOMATED)2022-04-23 11:35:25 Test Item Value Reference Range Interpretation Comments POCT GLU (test code = 9071951471) 135 mg/dL 70-110 H Lab Interpretation (test code = Abnormal 76350-2) [facility] 11:05:56 Test Item Value Reference Range Interpretation Comments MAGNESIUM (test code = 8359550647) 1.7 mg/dL 1.7-2.4 Lab Interpretation (test code = Normal 76382-5) [facility] GLUCOSE (AUTOMATED)2022-04-23 09:37:57 Test Item Value Reference Range Interpretation Comments POCT GLU (test code = 6260365196) 107 mg/dL 70-110 Lab Interpretation (test code = Normal 89945-1) [facility] GLUCOSE (AUTOMATED)2022-04-23 07:22:08 Test Item Value Reference Range Interpretation Comments POCT GLU (test code = 6501930315) 146 mg/dL 70-110 H Lab Interpretation (test code = Abnormal 42703-5) [facility] GLUCOSE (AUTOMATED)2022-04-23 05:29:09 Test Item Value Reference Range Interpretation Comments POCT GLU (test code = 8996436828) 142 mg/dL 70-110 H Lab Interpretation (test code = Abnormal 80422-1) [facility] GLUCOSE (AUTOMATED)2022-04-23 04:10:18 Test Item Value Reference Range Interpretation Comments POCT GLU (test code = 0540520764) 148 mg/dL 70-110 H Lab Interpretation (test code = Abnormal 22830-9) [facility] GLUCOSE (AUTOMATED)2022-04-23 02:27:55 Test Item Value Reference Range Interpretation Comments POCT GLU (test code = 7779237367) 160 mg/dL 70-110 H Lab Interpretation (test code = Abnormal 38751-5) [facility] Metabolic Panel (Na, K, Cl, CO2, Glucose, BUN, Creatinine, Ca)2022-04-23 01:58:18 Test Item Value Reference Range Interpretation Comments NA (test code = 137 mmol/L 135-145 8481018191) K (test code = 3.6 mmol/L 3.5-5.0 2750734361) CL (test code = 109 mmol/L 98-108 H 5671836084) CO2 TOTAL (test code = 17 mmol/L 23-31 L 7154402062) AGAP (test code = 2-16 0495615193) BUN (test code = <2 7-23 L 4640915306) GLUCOSE (test code = 162 mg/dL 70-110 H 4270262495) CREATININE (test code = 0.62 mg/dL 0.60-1.25 4459940385) CALCIUM (test code = 8.2 mg/dL 8.6-10.6 L 5920029584) eGFR (test code = mL/min/1.73m2 4443948279) ZULEIMA (test code = ZULEIMA) Association of [...] tests). Lab Interpretation Abnormal (test code = 98119-5) [facility] GLUCOSE (AUTOMATED)2022-04-23 01:21:32 Test Item Value Reference Range Interpretation Comments POCT GLU (test code = 4565737289) 142 mg/dL 70-110 H Lab Interpretation (test code = Abnormal 71259-8) [facility] GLUCOSE (AUTOMATED)2022-04-23 00:05:03 Test Item Value Reference Range Interpretation Comments POCT GLU (test code = 4523932551) 148 mg/dL 70-110 H Lab Interpretation (test code = Abnormal 36293-0) [facility] GLUCOSE (AUTOMATED)2022-04-22 23:06:57 Test Item Value Reference Range Interpretation Comments POCT GLU (test code = 3448256583) 144 mg/dL 70-110 H Lab Interpretation (test code = Abnormal 16704-7) [facility] GLUCOSE (AUTOMATED)2022-04-22 22:12:45 Test Item Value Reference Range Interpretation Comments POCT GLU (test code = 3752038556) 145 mg/dL 70-110 H Lab Interpretation (test code = Abnormal 79191-7) [facility] [id number] 21:43:14 Test Item Value Reference Interpretation Comments Range TROPONIN I (test 0.003 ng/mL See_Comment [Automated code = 5266530729) message] The system which generated this result [...] biotin. Lab Interpretation Normal (test code = 95793-4) [facility] Metabolic Panel (Na, K, Cl, CO2, Glucose, BUN, Creatinine, Ca)2022-04-22 21:31:09 Test Item Value Reference Range Interpretation Comments NA (test code = 134 mmol/L 135-145 L 3903308040) K (test code = 3.9 mmol/L 3.5-5.0 8218986577) CL (test code = 108 mmol/L 98-108 1026424707) CO2 TOTAL (test code = 15 mmol/L 23-31 L 8874021085) AGAP (test code = 2-16 7296816764) BUN (test code = 2 mg/dL 7-23 L 5971223017) GLUCOSE (test code = 170 mg/dL 70-110 H 6080726345) CREATININE (test code = 0.62 mg/dL 0.60-1.25 6302168542) CALCIUM (test code = 8.3 mg/dL 8.6-10.6 L 8135248912) eGFR (test code = mL/min/1.73m2 0887248177) ZULEIMA (test code = ZULEIMA) Association of [...] tests). Lab Interpretation Abnormal (test code = 83485-8) [facility] GLUCOSE (AUTOMATED)2022-04-22 21:08:08 Test Item Value Reference Range Interpretation Comments POCT GLU (test code = 5405035438) 156 mg/dL 70-110 H Lab Interpretation (test code = Abnormal 23767-9) [facility] GLUCOSE (AUTOMATED)2022-04-22 19:48:36 Test Item Value Reference Range Interpretation Comments POCT GLU (test code = 4469505559) 154 mg/dL 70-110 H Lab Interpretation (test code = Abnormal 80634-8) [facility] GLUCOSE (AUTOMATED)2022-04-22 18:44:52 Test Item Value Reference Range Interpretation Comments POCT GLU (test code = 2154238829) 146 mg/dL 70-110 H Lab Interpretation (test code = Abnormal 78459-9) [facility] GLUCOSE (AUTOMATED)2022-04-22 17:28:16 Test Item Value Reference Range Interpretation Comments POCT GLU (test code = 1083546948) 148 mg/dL 70-110 H Lab Interpretation (test code = Abnormal 64624-0) [facility] Metabolic Panel (Na, K, Cl, CO2, Glucose, BUN, Creatinine, Ca)2022-04-22 16:11:05 Test Item Value Reference Range Interpretation Comments NA (test code = 134 mmol/L 135-145 L 6461046748) K (test code = 3.8 mmol/L 3.5-5.0 4442569558) CL (test code = 106 mmol/L 98-108 9897214582) CO2 TOTAL (test code = 15 mmol/L 23-31 L 1334261584) AGAP (test code = 2-16 7803414165) BUN (test code = 4 mg/dL 7-23 L 6717103115) GLUCOSE (test code = 179 mg/dL 70-110 H 7303299211) CREATININE (test code = 0.68 mg/dL 0.60-1.25 6061140748) CALCIUM (test code = 8.5 mg/dL 8.6-10.6 L 2136072024) eGFR (test code = mL/min/1.73m2 7281886188) ZULEIMA (test code = ZULEIMA) Association of [...] tests). Lab Interpretation Abnormal (test code = 48764-2) [facility] 16:10:40 Test Item Value Reference Range Interpretation Comments POCT GLU (test code = 1097760164) 157 mg/dL 70-110 H Lab Interpretation (test code = Abnormal 88570-4) [facility] WITH [id number] 15:48:43 Test Item Value Reference Range Interpretation [...] RDW-SD (test code = 38.5 fL 38.5-51.6 50526-7) RDW-CV (test code = 12.4 % 12.1-15.4 788-0) PLT (test code = See_Comment [Automated 777-3) message] The sy stem which generated this result transmitted reference range : 150 - 328 10*3/ ?L. The reference r oleg was not used to interpret this result as normal/abnormal . MPV (test code = 9.2 fL 9.8-13.0 L 64181-9) NRBC/100 WBC (test See_Comment [Automat ed code = 6263228198) message] The system which generated this result transmitted reference range : 0.0 - 10.0 /100 WBCs. The refer ence range was not u sed to interpret th is result as normal/abnormal . NRBC x10^3 (test code <0.01 See_Comment [Auto mated = 0878321418) message] The s ystem which generated this result transmitted reference range : 10*3/?L. The reference range was not used to interpret this result as normal/abnormal . GRAN MAT (NEUT) % 69.0 % (test code = 770-8) IMM GRAN % (test code 0.40 % = 0989129329) LYMPH % (test code = 18.9 % 736-9) MONO % (test code = 9.1 % 5905-5) EOS % (test code = 2.0 % 713-8) BASO % (test code = 0.6 % 706-2) GRAN MAT x10^3(ANC) 6.20 10*3/uL 1.99-6.95 (test code = 6329587560) IMM GRAN x10^3 (test 0.04 10*3/uL 0.00-0.06 code = 5902606223) LYMPH x10^3 (test code 1.70 10*3/uL 1.09-3.23 = 731-0) MONO x10^3 (test code 0.82 10*3/uL 0.36-1.02 = 742-7) EOS x10^3 (test code = 0.18 10*3/uL 0.06-0.53 711-2) BASO x10^3 (test code 0.05 10*3/uL 0.01-0.09 = 704-7) Lab Interpretation Abnormal (test code = 24684-3) [facility] GLUCOSE (AUTOMATED)2022-04-22 14:27:15 Test Item Value Reference Range Interpretation Comments POCT GLU (test code = 2945807043) 150 mg/dL 70-110 H Lab Interpretation (test code = Abnormal 32669-8) [facility] GLUCOSE (AUTOMATED)2022-04-22 13:41:45 Test Item Value Reference Range Interpretation Comments POCT GLU (test code = 3577602206) 149 mg/dL 70-110 H Lab Interpretation (test code = Abnormal 98462-5) [facility] GLUCOSE (AUTOMATED)2022-04-22 12:29:18 Test Item Value Reference Range Interpretation Comments POCT GLU (test code = 7422824337) 174 mg/dL 70-110 H Lab Interpretation (test code = Abnormal 02634-0) [facility] GLUCOSE (AUTOMATED)2022-04-22 11:33:37 Test Item Value Reference Range Interpretation Comments POCT GLU (test code = 1416943586) 159 mg/dL 70-110 H Lab Interpretation (test code = Abnormal 02280-1) [facility] Metabolic Panel (Na, K, Cl, CO2, Glucose, BUN, Creatinine, Ca)2022-04-22 11:30:20 Test Item Value Reference Range Interpretation Comments NA (test code = 133 mmol/L 135-145 L 1178750055) K (test code = 3.3 mmol/L 3.5-5.0 L 0120000852) CL (test code = 104 mmol/L 98-108 9738344084) CO2 TOTAL (test code = 14 mmol/L 23-31 L 4528089950) AGAP (test code = 2-16 5579182425) BUN (test code = 4 mg/dL 7-23 L 4279315907) GLUCOSE (test code = 172 mg/dL 70-110 H 3047035810) CREATININE (test code = 0.77 mg/dL 0.60-1.25 8099722346) CALCIUM (test code = 8.6 mg/dL 8.6-10.6 6382038988) eGFR (test code = mL/min/1.73m2 4118166028) ZULEIMA (test code = ZULEIMA) Association of [...] tests). Lab Interpretation Abnormal (test code = 41989-5) [facility] GLUCOSE (AUTOMATED)2022-04-22 10:56:08 Test Item Value Reference Range Interpretation Comments POCT GLU (test code = 5647497335) 157 mg/dL 70-110 H Lab Interpretation (test code = Abnormal 18438-3) [facility] GLUCOSE (AUTOMATED)2022-04-22 10:56:03 Test Item Value Reference Range Interpretation Comments POCT GLU (test code = 9678085992) 96 mg/dL 70-110 Lab Interpretation (test code = Normal 55271-9) [facility] GLUCOSE (AUTOMATED)2022-04-22 09:35:36 Test Item Value Reference Range Interpretation Comments POCT GLU (test code = 7580708651) 158 mg/dL 70-110 H Lab Interpretation (test code = Abnormal 27121-1) [facility] GLUCOSE (AUTOMATED)2022-04-22 08:36:40 Test Item Value Reference Range Interpretation Comments POCT GLU (test code = 7678260721) 166 mg/dL 70-110 H Lab Interpretation (test code = Abnormal 13485-7) [facility] Metabolic Panel (Na, K, Cl, CO2, Glucose, BUN, Creatinine, Ca)2022-04-22 08:00:14 Test Item Value Reference Range Interpretation Comments NA (test code = 133 mmol/L 135-145 L 9559753634) K (test code = 3.6 mmol/L 3.5-5.0 5743269798) CL (test code = 103 mmol/L 98-108 1855664962) CO2 TOTAL (test code = 14 mmol/L 23-31 L 5627472652) AGAP (test code = 2-16 0471283766) BUN (test code = 5 mg/dL 7-23 L 1494849525) GLUCOSE (test code = 172 mg/dL 70-110 H 0206133419) CREATININE (test code = 0.85 mg/dL 0.60-1.25 9249294516) CALCIUM (test code = 9.0 mg/dL 8.6-10.6 4440860598) eGFR (test code = mL/min/1.73m2 3688733473) ZULEIMA (test code = ZULEIMA) Association of [...] tests). Lab Interpretation Abnormal (test code = 20627-8) [facility]smol[facility] [id number] 07:46:08 Test Item Value Reference Range Interpretation Comments OSMOLALITY (test code = See_Comment [Au tomated message] 2692-2) The system [employer] generated this result transmitted ref erence range: 278 - 30 5 mOsm/kg. The re ference range was not u sed to interpret this result as normal/abnor mal. Lab Interpretation (test Normal code = 12071-8) [facility] GLUCOSE (AUTOMATED)2022-04-22 07:36:29 Test Item Value Reference Range Interpretation Comments POCT GLU (test code = 4140223690) 144 mg/dL 70-110 H Lab Interpretation (test code = Abnormal 66019-0) [facility] GLUCOSE (AUTOMATED)2022-04-22 07:36:29 Test Item Value Reference Range Interpretation Comments POCT GLU (test code = 5011330031) 168 mg/dL 70-110 H Lab Interpretation (test code = Abnormal 67551-6) [facility] CenterBetahydroxy-Fkwgpryu4285-02-75 07:26:24 Test Item Value Reference Range Interpretation Comments BOH (test code = 3.1 mmol/L 1066197806) ZULEIMA (test code = Normal Ranges: ? ? ZULEIMA) Nonfasting ? Less than 0.1 mmol/L ? ? Overnight Fast ? ? ? Less than 0.4 mmol/L ? ? Fasting (1-2 weeks) ?6-8 mmol/L Test developed and characteristics determined by [facility] Laboratory Services. [facility]2022-[facility]-22 06:32:35 Test Item Value Reference Range Interpretation Comments POCT GLU (test code = 8034158931) 155 mg/dL 70-110 H Lab Interpretation (test code = Abnormal 54757-5) [facility] (Na, K, Cl, CO2, Glucose, BUN, Creatinine, Ca)2022-04-22 06:02:22 Test Item Value Reference Range Interpretation Comments NA (test code = 134 mmol/L 135-145 L 6971464471) K (test code = 3.6 mmol/L 3.5-5.0 3525767235) CL (test code = 104 mmol/L 98-108 6761344791) CO2 TOTAL (test code = 11 mmol/L 23-31 L 3997087372) AGAP (test code = 2-16 H 8480256567) BUN (test code = 7 mg/dL 7-23 7494118115) GLUCOSE (test code = 177 mg/dL 70-110 H 5898240103) CREATININE (test code = 0.81 mg/dL 0.60-1.25 4371108421) CALCIUM (test code = 9.0 mg/dL 8.6-10.6 8257685864) eGFR (test code = mL/min/1.73m2 5963492537) ZULEIMA (test code = ZULEIMA) Association of [...] tests). Lab Interpretation Abnormal (test code = 18798-3) [facility] GLUCOSE (AUTOMATED)2022-04-22 04:35:23 Test Item Value Reference Range Interpretation Comments POCT GLU (test code = 1473162968) 154 mg/dL 70-110 H Lab Interpretation (test code = Abnormal 94939-2) [facility] GLUCOSE (AUTOMATED)2022-04-22 03:44:33 Test Item Value Reference Range Interpretation Comments POCT GLU (test code = 0103558972) 166 mg/dL 70-110 H Lab Interpretation (test code = Abnormal 09409-3) [facility] CenterLanyic Acid Whole [id number] 03:11:51 Test Item Value Reference Range Interpretation Comments LACTIC ACID (test code = 2.04 mmol/L 0.50-2.20 5802537212) Lab Interpretation (test code = Normal 19109-0) [facility] Metabolic Panel (Na, K, Cl, CO2, Glucose, BUN, Creatinine, Ca)2022-04-22 02:17:22 Test Item Value Reference Range Interpretation Comments NA (test code = 134 mmol/L 135-145 L 8479723345) K (test code = 4.3 mmol/L 3.5-5.0 2686859424) CL (test code = 101 mmol/L 98-108 6486541538) CO2 TOTAL (test code = 10 mmol/L 23-31 L 5616337115) AGAP (test code = 2-16 H 7987861127) BUN (test code = 8 mg/dL 7-23 9827127193) GLUCOSE (test code = 128 mg/dL 70-110 H 0166485536) CREATININE (test code = 0.92 mg/dL 0.60-1.25 4188018046) CALCIUM (test code = 9.2 mg/dL 8.6-10.6 0218250526) eGFR (test code = mL/min/1.73m2 9783745140) ZULEIMA (test code = ZULEIMA) Association of [...] tests). Lab Interpretation Abnormal (test code = 01867-9) [facility] GLUCOSE (AUTOMATED)2022-04-22 02:16:37 Test Item Value Reference Range Interpretation Comments POCT GLU (test code = 6184578282) 132 mg/dL 70-110 H Lab Interpretation (test code = Abnormal 62681-2) [facility] GLUCOSE (AUTOMATED)2022-04-22 01:19:28 Test Item Value Reference Range Interpretation Comments POCT GLU (test code = 142 mg/dL 70-110 H Notifi ed Provider 2503688019) Lab Interpretation (test Abnormal code = 32745-6) [facility] CenterGlycosylated Hemoglobin (A1C)2022-04-22 01:01:17 Test Item Value Reference Range Interpretation Comments HGB A1C (test code = 10.5 % 4.0-5.7 H 4548-4) ZULEIMA (test code = ZULEIMA) Reference RangesNormal: <5.7%Prediabetes: 5.7 - 6.4%Diabetes: > 6.5% Lab Interpretation (test Abnormal code = 55754-7) [facility] CenterMagnesium [id number] 00:42:52 Test Item Value Reference Range Interpretation Comments MAGNESIUM (test code = 2787640002) 1.9 mg/dL 1.7-2.4 Lab Interpretation (test code = Normal 86947-5) [facility] CenterPhosphorus Dsbai4303-98-12 00:42:32 Test Item Value Reference Range Interpretation Comments PHOSPHORUS (test code = 4140115648) 5.1 mg/dL 2.5-5.0 H Lab Interpretation (test code = Abnormal 31722-5) [facility] CenterAC PANEL 21 + LACTIC [id number] 00:14:12 Test Item Value Reference Range Interpretation Comments PH (test code = 7.32-7.42 L 5293430711) PCO2 SAKINA (test code = See_Comment L [Auto mated 3789322967) message] The sy stem which generated this result transmitted reference range : 41 - 51 mmHg. The reference range was not used to interpret this result as normal/abnormal . PO2 SAKINA (test code = See_Comment H [Autom ated 4999184813) message] The sy stem which generated this result transmitted reference range : 25 - 40 mmHg. The reference range was not used to interpret this result as normal/abnormal . HCO3 SAKINA (test code = See_Comment L [Auto mated 1675417054) message] The sy stem which generated this result transmitted reference range : 24 - 28 mEq/L. The reference range was not used to interpret this result as normal/abnormal . AC VBE(BEAKER) (test mEq/L code = 3733170132) THB SAKINA (test code = 16.5 g/dL 13.5-18.0 9834120319) %O2HB SAKINA (test code = 84.9 % 52.0-63.0 H 6389951425) %COHB SAKINA (test code = 0.3 % 0.0-1.5 9823769496) %METHB SAKINA (test code = 0.1 % 0.4-1.5 L 7804691939) VOL%O2 SAKINA (test code = 19.6 % 6.0-12.0 H 5511240520) NA (test code = 134 mmol/L 135-145 L 1249082477) K+ (test code = 3.7 mmol/L 3.5-5.0 8982795221) AC CA IONZ (test code = 5.30 mg/dL 4.50-5.30 8625856930) GLUCOSE (test code = 155 mg/dL 70-110 H 8117061685) LACTIC ACID (test code 2.34 mmol/L 0.50-2.20 H = 4330844931) Lab Interpretation Abnormal (test code = 55662-9) [facility] [id number] 23:48:43 Test Item Value Reference Interpretation Comments Range TROPONIN I (test 0.002 ng/mL See_Comment [Automated code = 6264084197) message] The system which generated this result [...] biotin. Lab Interpretation Normal (test code = 99789-2) [facility] CenterN-TERMINAL [id number] 23:45:26 Test Item Value Reference Range Interpretation Comments NT-proBNP (test code 38 pg/mL See_Comment [Autom ated = 7645942013) message] The system which generated this result transmitted reference range : <=125. The reference range was not used to interpret this result as normal/abnormal . ZULEIMA (test code = ZULEIMA) Biotin has been reported to cause a negative bias, interpret results relative to patient's use of biotin. Lab Interpretation Normal (test code = 78651-2) [facility] CenterCOMP. METABOLIC PANEL (80324)2022-04-21 23:45:16 Test Item Value Reference Range Interpretation Comments NA (test code = 134 mmol/L 135-145 L 7696707742) K (test code = 4.3 mmol/L 3.5-5.0 5349720813) CL (test code = 100 mmol/L 98-108 9912130692) CO2 TOTAL (test code = 8 mmol/L 23-31 L 4309075969) AGAP (test code = 2-16 H 1128789292) BUN (test code = 8 mg/dL 7-23 1757007733) GLUCOSE (test code = 169 mg/dL 70-110 H 7367694592) CREATININE (test code = 0.93 mg/dL 0.60-1.25 5362220991) TOTAL BILI (test code = 1.1 mg/dL 0.1-1.3 2260478029) CALCIUM (test code = 9.8 mg/dL 8.6-10.6 0198632897) T PROTEIN (test code = 8.2 g/dL 6.3-8.2 5185509313) ALBUMIN (test code = 5.0 g/dL 3.5-5.0 7969165992) ALK PHOS (test code = 106 U/L 34-122 9686065243) ALTv (test code = 64 U/L 5-50 H 1742-6) AST(SGOT) (test code = 47 U/L 13-40 H 3000024158) eGFR (test code = mL/min/1.73m2 9005422607) ZULEIMA (test code = ZULEIMA) Association of [...] tests). Lab Interpretation Abnormal (test code = 06622-6) [facility] CenterLIPASE2022-05-23 23:37:42 Test Item Value Reference Range Interpretation Comments LIPASE (test code = 3330450961) 106 U/L 0-220 Lab Interpretation (test code = Normal 90231-4) [facility] CenterPROTHROMBIN TIME / [id number] 23:30:44 Test Item Value Reference Range Interpretation Comments PROTIME PATIENT (test See_Comment [Auto mated message] code = 5964-2) The system [employer] generated this result transmitted ref erence range: 12.0 - 1 4.7 Seconds. The re ference range was not u sed to interpret this result as normal/abnor mal. INR (test code = 6301-6) Nor mal INR <1.1; Warfarin Therap eutic range 2.0 to 3. 0 or 2.5 to 3.5, dep ending upon the indica tions. Lab Interpretation (test Normal code = 54976-2) [facility] WITH [id number] 23:22:44 Test Item Value Reference Range Interpretation [...] (test code = 38.3 fL 38.5-51.6 L 48503-9) RDW-CV (test code = 12.3 % 12.1-15.4 788-0) PLT (test code = See_Comment H [Automated 777-3) message] The sy stem which generated this result transmitted reference range : 150 - 328 10*3/ ?L. The reference r oleg was not used to interpret this result as normal/abnormal . MPV (test code = 9.2 fL 9.8-13.0 L 51722-0) NRBC/100 WBC (test See_Comment [Automat ed code = 8169394582) message] The system which generated this result transmitted reference range : 0.0 - 10.0 /100 WBCs. The refer ence range was not u sed to interpret th is result as normal/abnormal . NRBC x10^3 (test code <0.01 See_Comment [Auto mated = 9502433500) message] The s ystem which generated this result transmitted reference range : 10*3/?L. The reference range was not used to interpret this result as normal/abnormal . GRAN MAT (NEUT) % 62.0 % (test code = 770-8) IMM GRAN % (test code 0.30 % = 2640839319) LYMPH % (test code = 29.7 % 736-9) MONO % (test code = 6.5 % 5905-5) EOS % (test code = 0.9 % 713-8) BASO % (test code = 0.6 % 706-2) GRAN MAT x10^3(ANC) 7.25 10*3/uL 1.99-6.95 H (test code = 4113418119) IMM GRAN x10^3 (test 0.04 10*3/uL 0.00-0.06 code = 7970520814) LYMPH x10^3 (test code 3.48 10*3/uL 1.09-3.23 H = 731-0) MONO x10^3 (test code 0.76 10*3/uL 0.36-1.02 = 742-7) EOS x10^3 (test code = 0.11 10*3/uL 0.06-0.53 711-2) BASO x10^3 (test code 0.07 10*3/uL 0.01-0.09 = 704-7) Lab Interpretation Abnormal (test code = 48187-5) [facility] CenterALBUMIN/CREAT[facility]INE RATIO, URINE, RANDOM 2022-03-11 01:57:25 Test Item Value Reference Range Interpretation Comments CREATININE, URINE, 61.2 MG/DL NOT ESTAB RANDOM (test code = 2072) ALBUMIN, URINE, <0.2 MG/DL NOT ESTAB RANDOM (test code = 64048) CALC ALBUMIN/CREAT, <3 MG/G <30 Note: RND (test code = Albumin/Cre atinine 67587) ratio reference interval reflec ts ADA and NKF guideli amisha. COMPREHENSIVE METABOLIC [id number] 00:29:28 Test Item Value Reference Range Interpretation Comments GLUCOSE (test code = 413 MG/DL 70-99 H 2216) BUN (test code = 14 MG/DL 6-20 2207) CREATININE (test 0.81 MG/DL 0.80-1.40 code = 2213) eGFR (2020 CKD-EPI) 107 >60 (test code = 50771) ML/MIN/1.73 CALC BUN/CREAT (test 17 RATIO 6-28 code = 223) SODIUM (test code = 138 MEQ/L 007-271 5077) POTASSIUM (test code 4.2 MEQ/L 3.5-5.4 = [...] = 54 U/L 5-50 H 2218) LIPID [id number] 00:29:28 Test Item Value Reference Range Interpretation Comments CHOLESTEROL (test 174 MG/DL <200 code = 2210) TRIGLYCERIDES (test 311 MG/DL <150 H code = 2232) HDL CHOLESTEROL (test 40 MG/DL >39 code = 2220) CALC LDL CHOL (test 93 MG/DL <100 NOTE: C ALCULATED LDL code = 2237) IS BASED ON ADNIEL-BREWER METHOD WHICHINCLUDES ADJUSTABLE TRIGLYCERIDE:VL DL CHOLESTEROL RAT IO.THIS FACTOR VARIES B Y MEASURED TRIGLY CERIDE AND NON-HDLCHOL ESTEROL CONCENTRATIONS WITH INCREASED CALCU LATED LDL SEENIN HIGH ER TRIGLYCERIDE OR LOWER NON-HDL SPECIME NS. FOR MOREINFORMATION , SEE CLIENT ANNOUNCE MENT AT [email or web address] [email or web address] RATIO LDL/HDL 2.33 RATIO <3.55 (test code = 2238) HEMOGLOBIN [id number] 03:12:57 Test Item Value Reference Range Interpretation Comments HEMOGLOBIN A1c (test 11.3 % 4.2-5.6 H [employer] DIABETES code = 83658) ASSOCIATION IDELINES FOR HGB A1C: PREDIABETES/INC REASED [...] INDICATED, ALL TESTING PER FORMED ATCLINICAL PATH Ium LABORATORIES, [facility]. [address] [place] [address] LAB[address]ORY DIRE CTOR: Anna MCKAY. CLIA NUMBER [id number] CAP ACCREDITATION N O. [id number] COMPREHENSIVE METABOLIC [id number] 04:51:05 Test Item Value Reference Range Interpretation Comments GLUCOSE (test code = 299 MG/DL 70-99 H 2216) BUN (test code = 15 MG/DL 6-20 2207) CREATININE (test 0.67 MG/DL 0.80-1.40 L code = 2214) eGFR (2020 CKD-EPI) 114 >60 (test code = 48041) ML/MIN/1.73 CALC BUN/CREAT (test 22 RATIO 6-28 code = 2235) SODIUM (test code = 143 MEQ/L 104-782 2618) POTASSIUM (test code 4.1 MEQ/L 3.5-5.4 = [...] = 76 U/L 5-50 H 2218) LIPID [id number] 04:51:05 Test Item Value Reference Range Interpretation [...] MOREINFORMATION , SEE CLIENT ANNOUNCE MENT AT [email or web address] [email or web address] RATIO LDL/HDL 1.47 RATIO <3.55 UNLESS O THERWISE (test code = 2238) INDICATED , ALL TESTING PERFORMED [facility], [address] [place] [address] [facility] DIRECTOR: MELECIO GREEN M.D. CLIA NUMBER [id number] CAP ACCREDITATION N O. [id number] HEMOGLOBIN [id number] 02:53:45 Test Item Value Reference Range Interpretation Comments HEMOGLOBIN A1c (test 10.6 % 4.2-5.6 H [employer] DIABETES code = 11175) ASSOCIATION IDELINES FOR HGB A1C: PREDIABETES/INC REASED [...] Notes Date/Time Note Provider Source 2022-09-24 09:36:00 [id number] [facility] [address] [place] [address] PATIENT NAME: DANIEL LEHMAN ADMIT DATE: 09/24/22ACCOUNT NO: [id number] ROOM NO: AGE: 51 REPORT TYPE: OPERATIVE [...] PATIENT NAME: DANIEL LEHMAN Date Transcribed: 09/24/2022 16:12:19[facility] #: [id number] ID: [id number] by Lukasz Saul MD On 10/01/2022 09:00:16 AM at 0900 PATIENT NAME: DANIEL LEHMAN zyaazj1524-85-55L40:12:00L.[id number] i lable for patient [id number]43:00:46"
[2023-10-27 04:25] LABS: Arterial Blood Carboxyhemoglob 1.3 % (0-1.5); Blood Gas Oxyhemoglobin 93.3 % (94-97); Blood O2 Saturation 96.3 % (92-98.5)
[2023-10-27] MEDS ORDERED: METHYLPREDNISOLONE 125 MG INJ ONE ×3 (04:50→21:29)
[2023-10-27] MEDS ORDERED: ALBUTEROL 2.5 MG/3 ML NEB SOL ONE ×3 (04:51→20:34)
[2023-10-27] MEDS ORDERED: IPRATROPIUM BROM 0.5MG/2.5ML ONE ×4 (04:51→20:34)
[2023-10-27 05:00] LABS: Absolute Lymphocytes (CBC) 3.2 K/uL (0.7-4.9); Hematocrit 40.2 % (39.6-49.0); Lymphocytes % 22.8 % (15.3-44.8); MCV 91.6 fL (80-100); MPV 7.2 fL (7.6-11.3); Platelets 347 thou/uL (152-406); RBC Red Blood Cell Count 4.39 M/uL (4.33-5.43)
[2023-10-27 05:03] LABS: Protime INR 1.19
[2023-10-27] MEDS ORDERED: LEVALBUTEROL 1.25 MG/3 ML NEB ONE (05:12)
[2023-10-27 05:23] LABS: Albumin 3.2 g/dL (3.4-5.0); Bilirubin Direct 0.5 mg/dL (0-0.2); Bilirubin Indirect, Calculated 0.9 mg/dL (0.2-0.8); Bilirubin Total 1.4 mg/dL (0.2-1.0); Magnesium 2.2 mg/dL (1.6-2.4); Potassium 4.3 mEq/L (3.5-5.1); Protein, Total 7.2 g/dL (6.4-8.2)
[2023-10-27 05:29] LABS: SARS-COV-2 RT PCR NEGATIVE (NEGATIVE)
[2023-10-27 05:36] LABS: Troponin High Sensitivity 152.6 pg/mL (<58.9)
[2023-10-27] MEDS ORDERED: ETOMIDATE 20 MG/10 ML VIAL IV ONE (06:44)
[2023-10-27] MEDS ORDERED: ROCURONIUM 50 MG/5 ML VIAL IV ONE (06:46)
[2023-10-27] MEDS ORDERED: MIDAZOLAM HCL IN 0.9 % NACL/PF 100 MG/100 ML BAG IVPB ONE ×3 (06:46→09:14)
[2023-10-27] MEDS ORDERED: FENTANYL CITR 100 MCG/2 ML ONE (07:02)
[2023-10-27] MEDS ORDERED: NA CHLORIDE 0.9% 50 ML ONE (07:02)
[2023-10-27] MEDS ORDERED: VANCOMYCIN 1 GM/VIAL ONE (07:32)
[2023-10-27] MEDS ORDERED: NA CHLORIDE 0.9% 100 ML ONE (07:32)
[2023-10-27] MEDS ORDERED: NA CHLORIDE 0.9% 250 ML ONE ×3 (07:32→22:42)
[2023-10-27] MEDS ORDERED: PIPERACIL/TAZO 3.375 GM VIAL IV ONE (07:32)
[2023-10-27] MEDS ORDERED: HEPARIN/D5W 25,000 UNIT/500 ML BAG IV ONE (07:34)
[2023-10-27] MEDS ORDERED: HEPARIN 5000 UNIT/ML 1 ML VIAL ONE (07:34)
[2023-10-27 07:56] LABS: Arterial Blood Carboxyhemoglob 1.2 % (0-1.5); Blood O2 Saturation 96.1 % (92-98.5)
--- NOTE | 2023-10-27 07:56 | RAD REPORT ---
EXAM DESCRIPTION: RAD - Chest Single View - 10/27/2023 4:38 am
[2023-10-27] MEDS ORDERED: ASPIRIN 300 MG/SUPP PR ONE (08:00)
--- NOTE | 2023-10-27 08:04 | EDPHYS ---
Physician Documentation [facility] Name: Leandro Rand Age: 52 yrs Sex: Male : 1970 Arrival Date: 10/27/2023 Time: 04:00 Bed 4 Private MD: ED Physician Jens Flores HPI: 10/27 04:13 This 52 yrs old Male presents to ER via Unassigned with complaints of dyspnea, sp4 AMS . 07:57 Patient was here 10/25/2023 for respiratory infection. Patient presents with EMS after sp4 he was found unresponsive at home hypoxemic on EMS arrival. Patient unable to provide any HPI or ROS on arrival/ patient's reports patient sleeps with BiPAP and he was having sonorous respirations and looking pale. . Historical: - Allergies: 04:26 Segluromet; jj7 04:26 Synjardy; jj7 04:26 XIGDUO; jj7 - PMHx: 04:26 COVID-19; Diabetes - IDDM; Diabetes - NIDDM; Hyperlipidemia; jj7 - PSHx: 04:26 Left first finger amputation; jj7 - Immunization history:: Adult Immunizations up to date. - Social history:: Smoking status: Patient denies any tobacco usage or history of. Patient/guardian denies using alcohol, street drugs. - Family history:: not pertinent. ROS: 07:57 Constitutional: ROS limited secondary to altered mental status and lethargy sp4 07:57 All other systems are negative, Exam: 07:57 Constitutional: This is a well developed, well nourished patient who is obtunded, sp4 morbidly obese male in acute respiratory distress with tachypnea and tachycardia. Signs of hypoventilation. Head/Face: Normocephalic, atraumatic. Eyes: Pupils equal round and reactive to light, extra-ocular motions intact. Lids and lashes normal. Conjunctiva and sclera are not injected. Cornea within normal limits. Periorbital areas with no swelling, redness, or edema. ENT: Nares patent. No nasal discharge, no septal abnormalities noted. Tympanic membranes are normal and external auditory canals are clear. Oropharynx with no redness, swelling, or masses, exudates, or evidence of obstruction, uvula midline. Mucous membranes moist. Neck: Trachea midline, no thyromegaly or masses palpated, and no cervical lymphadenopathy. Supple, full range of motion without nuchal rigidity, or vertebral point tenderness. Chest/axilla: Normal chest wall appearance and motion. Nontender with no deformity. No lesions are appreciated. Cardiovascular: Regular tachycardia and rhythm with a normal S1 and S2. No gallops, murmurs, or rubs. Normal PMI, no JVD. No pulse deficits. Respiratory: Lungs have equal breath sounds bilaterally, bilateral crackles, no rales, rhonchi or wheezes noted. Positive tachypnea positive dyspnea positive accessory muscle use Abdomen/GI: Soft, non-tender, with normal bowel sounds. No distension or tympany. No guarding or rebound. No evidence of tenderness throughout. Back: No spinal tenderness. No costovertebral tenderness. Male : Normal genitalia with no discharge or lesions. Skin: Warm, dry with normal turgor. Normal color with no rashes, no lesions, and no evidence of cellulitis. MS/ Extremity: Pulses equal, no cyanosis. Neurovascular intact. Full, normal range of motion. Neuro: Obtunded male, moves all extremities, grossly nonlateralizing deficit 08:04 ECG was reviewed by the Attending Physician. EKG 0 510, sinus tachycardia rate 115 sp4 Vital Signs: 04:00 BP 126 / 58; Pulse 130; Resp 14; Temp 97.1; Pulse Ox 99% on 10 lpm Non-rebreather mask; jj7 Weight 127.01 kg; 04:35 BP 137 / 79; Pulse 123; Resp 24 S; Pulse Ox 98% on BiPAP; ha1 05:00 BP 153 / 79; Pulse 117; Resp 26; Pulse Ox 100% on BiPAP; jj7 05:40 BP 141 / 45; Pulse 114; Resp 24 S; Pulse Ox 100% on BiPAP; ha1 06:00 BP 145 / 68; Pulse 114; Resp 27 S; Pulse Ox 97% on 50 lpm BiPAP; ha1 06:30 BP 139 / 80; Pulse 110; Resp 26 S; Pulse Ox 98% on 50 lpm BiPAP; ha1 08:11 BP 94 / 53; Pulse 108; Resp 16 S; Pulse Ox 96% on ETT vent; kc6 Procedures: 06:50 Intubation: Ventilated with 100% NRB prior to procedure. O2 saturation prior to sp4 procedure was 100 %. Intubated orally using # 4 Sebastian blade with 8.0 mm ETT. was successful on first attempt. Ventilated with Ambu bag. ventilator. Tube secured with ETT urena at center of mouth measured 27 cm at lip. Placement verified by CXR, CO2 detector with (+) color change, auscultating bilateral breath sounds, O2 saturation after procedure was 100 %. Patient tolerated well, Progressive hypercarbia. 07:57 Central Line: the site was prepped with in sterile fashion, Chlorhexidine, a triple sp4 lumen catheter was inserted, in the left internal jugular vein, in 1 attempts. placement was verified, by CXR, by blood return, Ultrasound-guided central venous line, the site was dressed with Tegaderm, using sterile technique, the patient tolerated the procedure, well. MDM: 04:15 Patient medically screened. sp4 08:04 Differential Diagnosis altered mental status, sepsis, flu. Data reviewed: vital signs, sp4 nurses notes, EMS record, old medical records, lab test result(s), EKG, radiologic studies, plain films. Consideration of Admission/Observation Patient was admitted/placed on observation. Escalation of care including admission/observation considered. Management of patient was discussed with the following: Hospitalist: Jennifer Chester MD . ED course: Patient had to be intubated for worsening hypercarbia. At this time admission to ICU is appropriate. 10/27 04:14 Order name: BMP; Complete Time: 06:28 sp4 10/27 04:14 Order name: Blood Culture Adult (2); Complete Time: 13:05 sp4 10/27 04:14 Order name: CBC with Diff; Complete Time: 06:28 sp4 10/27 04:14 Order name: CPK; Complete Time: 06:28 sp4 10/27 04:14 Order name: Hepatic Function; Complete Time: 06:28 sp4 10/27 04:14 Order name: Lipase; Complete Time: 06:28 sp4 10/27 04:14 Order name: Magnesium; Complete Time: 06:28 sp4 10/27 04:14 Order name: NT PRO-BNP; Complete Time: 06:28 sp4 10/27 04:14 Order name: PT-INR; Complete Time: 06:28 sp4 10/27 04:14 Order name: Ptt, Activated; Complete Time: 06:28 sp4 10/27 04:14 Order name: Troponin HS; Complete Time: 06:28 sp4 10/27 04:14 Order name: ABG; Complete Time: 06:28 sp4 10/27 04:14 Order name: COVID-19/FLU A+B; Complete Time: 06:28 sp4 10/27 06:24 Order name: ABG; Complete Time: 08:06 sp4 10/27 08:33 Order name: CBC with Automated Diff EDMS 10/27 08:33 Order name: CBC with Automated Diff; Complete Time: 13:05 EDMS 10/27 08:33 Order name: Comprehensive Metabolic Panel EDMS 10/27 08:33 Order name: Comprehensive Metabolic Panel; Complete Time: 13:05 EDMS 10/27 08:33 Order name: Magnesium EDMS 10/27 08:33 Order name: Magnesium; Complete Time: 13:05 EDMS 10/27 08:33 Order name: NT PRO-BNP EDMS 10/27 08:33 Order name: NT PRO-BNP; Complete Time: 13:05 EDMS 10/27 08:33 Order name: Phosphorus EDMS 10/27 08:33 Order name: Phosphorus; Complete Time: 13:05 EDMS 10/27 08:33 Order name: T4 Free EDMS 10/27 08:33 Order name: T4 Free; Complete Time: 13:05 EDMS 10/27 08:33 Order name: Thyroid Stimulating Hormone EDMS 10/27 08:33 Order name: Thyroid Stimulating Hormone; Complete Time: 13:05 EDMS 10/27 11:39 Order name: Ptt, Activated kc6 10/27 12:09 Order name: PTT, Activated Partial Thromb; Complete Time: 13:05 EDMS 10/27 16:08 Order name: Ptt, Activated kc6 10/27 04:14 Order name: XRAY CXR (1 view); Complete Time: 08:06 sp4 10/27 04:14 Order name: BIPAP sp4 10/27 06:54 Order name: Chest Single View XRAY; Complete Time: 13:05 sp4 10/27 07:34 Order name: Head Brain Wo Cont; Complete Time: 13:05 EDMS 10/27 07:51 Order name: CXR XRAY ms3 10/27 09:09 Order name: RAD; Complete Time: 13:05 EDWA 10/27 04:14 Order name: EKG; Complete Time: 04:15 sp4 10/27 08:33 Order name: CONS Physician Consult EDWA 10/27 08:33 Order name: CONS Physician Consult [facility] 10/27 04:14 Order name: Cardiac monitoring; Complete Time: 04:50 sp4 10/27 04:14 Order name: EKG - Nurse/Tech; Complete Time: 05:29 sp4 10/27 04:14 Order name: Taylor; Complete Time: 05:06 sp4 10/27 04:14 Order name: IV Saline Lock; Complete Time: 04:50 sp4 10/27 04:14 Order name: Labs collected and sent; Complete Time: 04:50 sp4 10/27 04:14 Order name: O2 Per Protocol; Complete Time: 04:50 sp4 10/27 04:14 Order name: O2 Sat Monitoring; Complete Time: 04:50 sp4 10/27 06:29 Order name: Central Line Kit; Complete Time: 07:13 sp4 EC:04 Rate is 115 beats/min. Rhythm is regular, Sinus tachycardia. QRS Dilliner is Normal. VT sp4 interval is normal. QRS interval is normal. QT interval is normal. No Q waves. T waves are Normal. No ST changes noted. Clinical impression: No evidence of ischemia. Interpreted by me. Reviewed by me. Administered Medications: 04:30 Drug: Albuterol Inhalation 2.5 mg Inhalation every 20 minutes x3 Route: Inhalation; ha1 04:30 Drug: Ipratropium Inhalation Aerosol 0.5 mg Inhalation once; Every 20 min for a total ha1 of 3 treatments x3 Route: Inhalation; 04:51 Drug: Albuterol Inhalation 2.5 mg Inhalation every 20 minutes x3 Route: Inhalation; ha1 04:51 Drug: MethylPrednisoLONE IVP 125 mg IVP once Route: IVP; Site: left antecubital; ha1 04:52 Drug: Ipratropium Inhalation Aerosol 0.5 mg Inhalation once; Every 20 min for a total ha1 of 3 treatments x3 Route: Inhalation; 06:38 Drug: Etomidate IVP 20 mg IVP once Route: IVP; Site: left antecubital; jj7 06:38 Drug: Etomidate IVP 20 mg IVP once Route: IVP; Site: left antecubital; jj7 06:39 Drug: Rocuronium IVP 100 mg IVP once Route: IVP; Site: left antecubital; jj7 06:45 Drug: Midazolam IVP or IV 0.01 mg/kg/h IV at calculated rate See Administration jj7 Instructions; (Standard concentration: 100 mg / 100 mL NS); Recommended max rate 0.1 mg/kg/hr; Titrate 0.01 mg/kg/hr as often as every 30 minutes to achieve goal (see titration policy); Goal parameter RASS 0 to -2 {Note: per dr lennon.} Route: IV; Rate: calculated rate; Site: right antecubital; 10:04 Follow up: Response: No adverse reaction; RASS: Light sedation (-2); Rate change 2.5 kc6 mg/hr 10:39 Follow up: Response: No adverse reaction; RASS: Light sedation (-2); Rate change 4 mg/hrkc6 11:01 Follow up: Rate change 3 mg/hr alo 07:23 Drug: fentaNYL (PF) IV 25 mcg/kg/h IV at calculated rate See Administration jj7 Instructions; (Standard concentration 500 mcg / 50 mL NS [10 mcg / 1 mL); Recommended max rate 4 mcg/kg/hr; Titrate 0.25 mcg/kg/hr as often as every 3 minutes to achieve goal (see titration policy); Goal parameter RASS score 0 to -2 {Note: started at 25mcg/hr per dr vick.} Route: IV; Rate: calculated rate; Site: left antecubital; 10:04 Follow up: Response: No adverse reaction; RASS: Light sedation (-2) kc6 07:24 Drug: HEParin IV 5000 units IV at bolus once {Co-Signature: alo (Leann Sage RN).} kc6 Route: IV; Rate: bolus; Site: right antecubital; 10:05 Follow up: Response: No adverse reaction; IV Intake: 1ml kc6 07:30 Drug: Heparin ([place] Drip) 12 units/kg/[place] - ([place] [address] units, D5W IV 500 ml) IV at kc6 calculated rate Per protocol; Max initial rate 1000 units/hr {Co-Signature: alo (Leann Sage RN).} Route: IV; Rate: calculated rate; Site: right antecubital; 08:04 Drug: Piperacillin-Tazobactam IVPB 3.375 grams IVPB once over 60 mins; (mix in NS 100 kc6 mL) Route: IVPB; Infused Over: 60 mins; Site: left antecubital; 08:34 Follow up: Response: No adverse reaction; IV Status: Completed infusion; IV Intake: kc6 100ml 08:34 Drug: vancoMYCIN IVPB 2 grams IVPB at calculated rate once Route: IVPB; Rate: kc6 calculated rate; Site: left jugular; 11:37 Follow up: Response: No adverse reaction; IV Status: Completed infusion; IV Intake: kc6 250ml 09:57 Drug: Aspirin [place] Suppository 300 mg VT once Route: VT; kc6 11:37 Follow up: Response: No adverse reaction kc6 Disposition Summary: 10/27/23 08:04 Hospitalization Ordered Notes: Hospitalization Status: Inpatient Admission sp4 Provider: Reyna Chester Location: Intensive Care Unit sp4 Condition: Guarded sp4 Problem: new sp4 Symptoms: are unchanged sp4 Bed/Room Type: Standard sp4 Room Assignment: 6-(10/27/23 15:46) ja1 Diagnosis - Acute respiratory failure with hypercapnia sp4 - Non ST elevation [place] sp4 - Acute pulmonary edema sp4 Forms: - Medication Reconciliation Form sp4 - SBAR form sp4 - Leadership Thank You Letter sp4 Critical care time excluding procedures: 08:04 Critical care time: Bedside Care: 36 minutes, Consultation: 12 minutes, Family sp4 Intervention: 12 minutes. Total time: 60 minutes Signatures: Dispatcher [employer] Petey Pizano RN RN ja1 Teresa Jaramillo RN RN ha1 Krissy Rodriguez RN RN kc6 Juice Camilo RN MARILU hubbardjJens Maldonado MD MD sp4 Leann Sage RN db Leann Sage RN db Corrections: (The following items were deleted from the chart) 15:46 08:04 sp4 ja1
--- NOTE | 2023-10-27 08:04 | ER ---
Nurse's Notes [facility] Name: Leandro Rand Age: 52 yrs Sex: Male : 1970 Arrival Date: 10/27/2023 Time: 04:00 Bed 4 Private MD: Diagnosis: Acute respiratory failure with hypercapnia;Non ST elevation [place];Acute pulmonary edema Presentation: 10/27 04:00 Chief complaint: EMS states: PT WAS RECENTLY DISCHARGED FOR HOSPITAL ON THURSDAY WITH jj7 PNEUMONIA AND FLU. WAS SUPPOSED TO BE ON O2 AT HOME. TONIGHT SAID SHE HEARD HIM BREATHING FUNNY. SO SHE WOKE UP AND PUT HIM ON SOME OXYGEN AND CALLED 911. Coronavirus screen: At this time, the client does not indicate any symptoms associated with coronavirus-19. Ebola Screen: No symptoms or risks identified at this time. Initial Sepsis Screen: Does the patient meet any 2 criteria? HR > 90 bpm. Does the patient have a suspected source of infection? Yes: Other: DX OF FLU AND PNEUMONIA. Risk Assessment: Do you want to hurt yourself or someone else? Patient reports no desire to harm self or others. Onset of symptoms was October 27, 2023. 04:00 Method Of Arrival: EMS: [facility] jj7 04:00 Acuity: FELI 2 jj7 Triage Assessment: 04:26 General: Appears distressed, uncomfortable, obese, Behavior is. Respiratory: jj7 Respiratory effort is labored, Respiratory pattern is snoring. Historical: - Allergies: 04:26 Segluromet; jj7 04:26 Synjardy; jj7 04:26 XIGDUO; jj7 - PMHx: 04:26 COVID-19; Diabetes - IDDM; Diabetes - NIDDM; Hyperlipidemia; jj7 - PSHx: 04:26 Left first finger amputation; jj7 - Immunization history:: Adult Immunizations up to date. - Social history:: Smoking status: Patient denies any tobacco usage or history of. Patient/guardian denies using alcohol, street drugs. - Family history:: not pertinent. Screenin:00 [facility] ED Fall Risk Assessment (Adult) History of falling in the last 3 months, jj7 including since admission No falls in past 3 months (0 pts) Confusion or Disorientation Yes (5 pts) Intoxicated or Sedated No (0 pts) Impaired Gait No (0 pts) Mobility Assist Device Used Yes (1 pt) Altered Elimination No (0 pt) Score/Fall Risk Level 3 or more points = High Risk Maintained a safe environment, Educated pt \T\ family on fall prevention, incl call for assistance when getting out of bed. Abuse screen: Denies threats or abuse. Nutritional screening: No deficits noted. Tuberculosis screening: No symptoms or risk factors identified. Assessment: 04:00 Reassessment: SEE TRIAGE ASSESSMENT. jj7 05:00 Reassessment: eyes closed. Respiratory: Airway is patent Respiratory effort is labored, ha1 Respiratory pattern is tachypnea Patient placed on BiPAP:. 05:55 Reassessment: eyes closed. Respiratory: Airway is patent Respiratory effort is labored, ha1 Respiratory pattern is tachypnea Patient placed on BiPAP:. 06:41 Reassessment:. Respiratory: Ventilator assessment: ET Tube: 8.0 25 at the teeth ha1 Ventilator Mode: Assist Control (AC) Tidal Volume: 500 Respiratory Rate: 18 PEEP: 5. 07:00 General: Appears in no apparent distress. comfortable, obese, well groomed, Behavior is kc6 calm. Pain: Unable to use pain scale. Patient is intubated. Neuro: [place] Agitation-Sedation Scale (RASS): -3 Moderate Sedation Oriented to none. Cardiovascular: Heart tones S1 S2 present Capillary refill < 3 seconds Rhythm is sinus tachycardia. Respiratory: Airway is patent Trachea midline Respiratory effort is even, unlabored, Respiratory pattern is regular, symmetrical. GI: No signs and/or symptoms were reported involving the gastrointestinal system. Abdomen is round non-distended, Oral gastric tube in place, to suction. Site clean. Abd is soft and non tender X 4 quads. : No signs and/or symptoms were reported regarding the genitourinary system. Taylor in place Urine is clear. EENT: No deficits noted. Derm: No deficits noted. Skin is intact, is healthy with good turgor, Skin is pink, warm \T\ dry. Musculoskeletal: No deficits noted. Circulation, motion, and sensation intact. Capillary refill < 3 seconds, Range of motion: intact in all extremities. 07:14 Reassessment: report given to tova matthews jj7 08:00 Reassessment: Patient appears in no apparent distress at this time. No changes from kc6 previously documented assessment. Patient and/or family updated on plan of care and expected duration. Pain level reassessed. 09:06 Reassessment: PT TO CT. db Vital Signs: 04:00 BP 126 / 58; Pulse 130; Resp 14; Temp 97.1; Pulse Ox 99% on 10 lpm Non-rebreather mask; jj7 Weight 127.01 kg; 04:35 BP 137 / 79; Pulse 123; Resp 24 S; Pulse Ox 98% on BiPAP; ha1 05:00 BP 153 / 79; Pulse 117; Resp 26; Pulse Ox 100% on BiPAP; jj7 05:40 BP 141 / 45; Pulse 114; Resp 24 S; Pulse Ox 100% on BiPAP; ha1 06:00 BP 145 / 68; Pulse 114; Resp 27 S; Pulse Ox 97% on 50 lpm BiPAP; ha1 06:30 BP 139 / 80; Pulse 110; Resp 26 S; Pulse Ox 98% on 50 lpm BiPAP; ha1 08:11 BP 94 / 53; Pulse 108; Resp 16 S; Pulse Ox 96% on ETT vent; kc6 ED Course: 04:00 Patient has correct armband on for positive identification. Placed in gown. Bed in low jj7 position. Call light in reach. Side rails up X2. Adult w/ patient. Warm blanket given. 04:10 Inserted saline lock: 18 gauge in right in left antecubital area, using aseptic jj7 technique. Blood collected. Oxygen administration via non-rebreather mask 10. 04:11 Patient arrived in ED. jj7 04:11 Juice Camilo RN is Primary Nurse. jj7 04:13 Jens Flores MD is Attending Physician. sp4 04:26 Triage completed. jj7 04:26 Arm band placed on right wrist. Patient placed in an exam room, on a stretcher, on jj7 oxygen, on registered nurse cardiac, on pulse oximetry. 04:30 Assist ventilation BiPAP. jj7 04:40 XRAY CXR (1 view) In Process Unspecified. EDMS 04:50 ABG Sent. ha1 04:50 BMP Sent. ha1 04:50 Blood Culture Adult (2) Sent. ha1 04:50 CBC with Diff Sent. ha1 04:50 CPK Sent. ha1 04:50 Hepatic Function Sent. ha1 04:50 Lipase Sent. ha1 04:50 Magnesium Sent. ha1 04:50 NT PRO-BNP Sent. ha1 04:50 PT-INR Sent. ha1 04:50 Ptt, Activated Sent. ha1 04:50 Troponin HS Sent. ha1 04:52 COVID-19/FLU A+B Sent. ha1 04:56 Inserted saline lock: 18 gauge in left antecubital area, using aseptic technique. Blood ha1 collected. 05:06 BIPAP Sent. jj7 06:00 Taylor cath inserted, using sterile technique, 16 Fr., by ok, balloon inflated, to ha1 gravity drainage, urine specimen collected. 06:30 Provided Education on: Provided education to family member on need for intubation . ha1 07:00 Report received from Teresa Jaramillo RN \T\ MARILU CANO. kc6 07:00 Client placed on continuous cardiac and pulse oximetry monitoring. NIBP monitoring kc6 applied. vehicle monitor technician on. 07:00 Assist ventilation with ventilator. ha1 07:02 Chest Single View XRAY In Process Unspecified. EDMS 07:34 NGT: inserted 14 Fr. other oral verified placement of air over stomach, verified return kc6 of gastric contents, Placement verified by X-ray, to intermittent suction. Returned bile. Patient tolerated well. 07:45 Assisted provider with central line placement. Set up central line tray. Triple lumen kc6 line placed in left internal jugular. Line placed by Jens Flores MD Placement verified by CXR, blood return, Dressed with 4X4s, Tape, Tegaderm, Patient tolerated well. Before procedure, did Practitioner(s) obtain informed consent? Yes. Patient \T\ family education about procedure, CLABSI prevention and S/S of infection? Yes. Time-out/Briefing performed prior to start of procedure? Yes. Was handwashing/sanitizing done immediately prior to procedure? Yes. Was patient positioned to in a way to prevent air embolism? Yes. Was procedure site sterilized? Yes, with Was the site allowed to dry? Yes. Was local anesthetic and/or sedation utilized? Yes. During the procedure, did the Practitioner(s) maintain a sterile field? Yes. Were unused ports clamped during insertion? Yes. Was blood aspirated from each lumen? Yes. After the procedure, did the Practitioner(s) clean the site and apply a sterile dressing? Yes. 08:02 Reyna Chester MD is Hospitalizing Provider. sp4 11:08 Leann Sage RN is Primary Nurse. db 11:51 Ptt, Activated Sent. kc6 Administered Medications: 04:30 Drug: Albuterol Inhalation 2.5 mg Inhalation every 20 minutes x3 Route: Inhalation; ha1 04:30 Drug: Ipratropium Inhalation Aerosol 0.5 mg Inhalation once; Every 20 min for a total ha1 of 3 treatments x3 Route: Inhalation; 04:51 Drug: Albuterol Inhalation 2.5 mg Inhalation every 20 minutes x3 Route: Inhalation; ha1 04:51 Drug: MethylPrednisoLONE IVP 125 mg IVP once Route: IVP; Site: left antecubital; ha1 04:52 Drug: Ipratropium Inhalation Aerosol 0.5 mg Inhalation once; Every 20 min for a total ha1 of 3 treatments x3 Route: Inhalation; 06:38 Drug: Etomidate IVP 20 mg IVP once Route: IVP; Site: left antecubital; jj7 06:38 Drug: Etomidate IVP 20 mg IVP once Route: IVP; Site: left antecubital; jj7 06:39 Drug: Rocuronium IVP 100 mg IVP once Route: IVP; Site: left antecubital; jj7 06:45 Drug: Midazolam IVP or IV 0.01 mg/kg/h IV at calculated rate See Administration jj7 Instructions; (Standard concentration: 100 mg / 100 mL NS); Recommended max rate 0.1 mg/kg/hr; Titrate 0.01 mg/kg/hr as often as every 30 minutes to achieve goal (see titration policy); Goal parameter RASS 0 to -2 {Note: per dr lennon.} Route: IV; Rate: calculated rate; Site: right antecubital; 10:04 Follow up: Response: No adverse reaction; RASS: Light sedation (-2); Rate change 2.5 kc6 mg/hr 10:39 Follow up: Response: No adverse reaction; RASS: Light sedation (-2); Rate change 4 mg/hrkc6 11:01 Follow up: Rate change 3 mg/hr db 07:23 Drug: fentaNYL (PF) IV 25 mcg/kg/h IV at calculated rate See Administration jj7 Instructions; (Standard concentration 500 mcg / 50 mL NS [10 mcg / 1 mL); Recommended max rate 4 mcg/kg/hr; Titrate 0.25 mcg/kg/hr as often as every 3 minutes to achieve goal (see titration policy); Goal parameter RASS score 0 to -2 {Note: started at 25mcg/hr per dr lennon..} Route: IV; Rate: calculated rate; Site: left antecubital; 10:04 Follow up: Response: No adverse reaction; RASS: Light sedation (-2) kc6 07:24 Drug: HEParin IV 5000 units IV at bolus once {Co-Signature: db (Leann Sage RN).} kc6 Route: IV; Rate: bolus; Site: right antecubital; 10:05 Follow up: Response: No adverse reaction; IV Intake: 1ml kc6 07:30 Drug: Heparin ([place] Drip) 12 units/kg/[place] - ([place] [address] units, D5W IV 500 ml) IV at kc6 calculated rate Per protocol; Max initial rate 1000 units/hr {Co-Signature: db (Leann Sage RN).} Route: IV; Rate: calculated rate; Site: right antecubital; 08:04 Drug: Piperacillin-Tazobactam IVPB 3.375 grams IVPB once over 60 mins; (mix in NS 100 kc6 mL) Route: IVPB; Infused Over: 60 mins; Site: left antecubital; 08:34 Follow up: Response: No adverse reaction; IV Status: Completed infusion; IV Intake: kc6 100ml 08:34 Drug: vancoMYCIN IVPB 2 grams IVPB at calculated rate once Route: IVPB; Rate: kc6 calculated rate; Site: left jugular; 11:37 Follow up: Response: No adverse reaction; IV Status: Completed infusion; IV Intake: kc6 250ml 09:57 Drug: Aspirin [place] Suppository 300 mg [place] once Route: [place]; kc6 11:37 Follow up: Response: No adverse reaction kc6 Medication: 04:00 VIS not applicable for this client. jj7 Intake: 08:34 IV: 100ml; Total: 100ml. kc6 10:05 IV: 1ml; Total: 101ml. kc6 11:37 IV: 250ml; Total: 351ml. kc6 Outcome: 08:04 Decision to Hospitalize by Provider. sp4 16:56 Patient left the ED. kc6 Signatures: Dispatcher [employer] EDMS Teresa Jaramillo RN RN ha1 Krissy Rodriguez RN RN kc6 Juice Camilo RN RN jj7 Leann Sage, RN RN db Jens Flores MD MD sp4 Leann Sage RN db Corrections: (The following items were deleted from the chart) 10:05 08:35 Response: No adverse reaction kc6 kc6
[2023-10-27] MEDS ORDERED: ACETAMINOPHEN 500 MG TAB PO PRN (08:17)
[2023-10-27] MEDS ORDERED: ONDANSETRON 4 MG/2 ML VIAL IV PRN (08:17)
--- NOTE | 2023-10-27 08:28 | RAD REPORT ---
EXAM DESCRIPTION: RADChest Single View10/27/2023 7:01 am CLINICAL HISTORY: intubation , COMPARISON: Chest Single View dated 10/27/2023; Chest Pa And Lat (2 Views) dated 10/25/2023; Chest S esther View dated 11/04/2022; Chest Single View dated 03/17/2022 TECHNIQUE: Portable AP view of the chest. FINDINGS: Endotracheal tube terminates 2.5 cm above the thong. Stable cardiomegaly. Central interst itial prominence and patchy left basilar and peripheral opacity, may reflect atelectasis, stable. Rig ht lung is clear. No pneumothorax or effusion. The mediastinal contours are unremarkable. IMPRESSION: Endotracheal tube terminates at the distal trachea. Stable findings which may reflect ce ntral congestion/ CHF as above.
[2023-10-27] MEDS: CEFTRIAXONE 1,000 MG in NA CHLORIDE 0.9% 50 ML IVPB SCH (09:00)
[2023-10-27] MEDS: NA CHLORIDE 0.9% 1,000 ML IV SCH ×2 (09:00→22:20)
[2023-10-27] MEDS ORDERED: ENOXAPARIN 40 MG/0.4 ML SQ SCH (09:00)
--- NOTE | 2023-10-27 09:09 | RAD REPORT ---
EXAM DESCRIPTION: RADChest Single View10/27/2023 8:48 am CLINICAL HISTORY: CVL placement COMPARISON: Chest Single View dated 10/27/2023; Chest Single View dated 10/27/2023; Chest Pa And Lat (2 Views) dated 10/25/2023; Chest Single View dated 11/04/2022 TECHNIQUE: Portable AP view of the chest. FINDINGS: Endotracheal tube unchanged in position. Left IJ CVC has been placed, with tip present at the proximal SVC. Enteric tube has been placed coursing below the lower filled margin. Stable interst itial prominence, with peripheral left basilar opacification. No pneumothorax or effusion. Stable ca rdiomegaly. Mediastinal contours are otherwise unremarkable. IMPRESSION: Left IJ CVC tip projects at the proximal SVC. Enteric tube in satisfactory position. Other stable findings as above.
--- NOTE | 2023-10-27 10:11 | RAD REPORT ---
EXAM DESCRIPTION: CT - Head Brain Wo Cont - 10/27/2023 9:25 am CLINICAL HISTORY: AMS COMPARISON: No comparisons TECHNIQUE: Noncontrast head CT images were obtained without IV contrast. Multiplanar reformats were generated and reviewed. All CT scans are performed using dose optimization technique as appropriate and may include automated exposure control or mA/KV adjustment according to patient size. FINDINGS: No intracranial hemorrhage, mass, or edema. Midline structures are unremarkable. Normal ventricular caliber for age. Bailey-white matter differentiation is preserved, without evidence of acute infarct. No abnormal extra- axial fluid collections. Mastoid air cells and visualized portions of the paranasal sinuses are clear. Fluid opacification in the nasopharynx. Patient is intubated. No acute bony findings. Mildly expansile region involving the body of the sphenoid extending to the l eft with ground-glass appearance. IMPRESSION: No evidence of an acute intracranial process. 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
[2023-10-27] MEDS ORDERED: NA CHLORIDE 0.9% 1,000 ML ONE (10:33)
[2023-10-27] MEDS ORDERED: CEFTRIAXONE 1000 MG/VIAL ONE (10:33)
[2023-10-27] MEDS ORDERED: ENOXAPARIN 40 MG/0.4 ML SQ ONE (10:33)
[2023-10-27] MEDS: METHYLPREDNISOLONE 125 MG INJ IV SCH ×2 (12:00→18:59)
[2023-10-27] MEDS ORDERED: ALBUTEROL 2.5 MG/3 ML NEB SOL NEB SCH ×2 (13:00→16:00)
[2023-10-27] MEDS: IPRATROPIUM BROM 0.5MG/2.5ML NEB SCH ×3 (13:28→20:43)
[2023-10-27] MEDS ORDERED: METHYLPREDNISOLONE 40 MG INJ ONE (13:39)
[2023-10-27] MEDS ORDERED: MIDAZOLAM HCL IN 0.9 % NACL/PF 100 MG/100 ML BAG IVPB SCH (14:00)
[2023-10-27] MEDS ORDERED: MIDAZOLAM HCL 100 MG in NA CHLORIDE 0.9% 80 ML IV SCH (14:00)
[2023-10-27] MEDS ORDERED: DEXMEDETOMIDINE HCL 200 MCG in NA CHLORIDE 0.9% 98 ML IV SCH (18:00)
[2023-10-27 18:21] LABS: Blood O2 Saturation 92.3 % (92-98.5)
[2023-10-27] MEDS ORDERED: INSULIN 70/30 100 UNITS/ML SQ ONE (18:48)
[2023-10-27] MEDS: DEXMEDETOMIDINE HCL 1,000 MCG in NA CHLORIDE 0.9% 490 ML IV SCH (18:57)
[2023-10-27] MEDS: INSULIN REGULAR (HUMAN) 100 UNIT/ML SQ SCH (19:30)
[2023-10-27] MEDS ORDERED: INSULIN REGULAR (HUMAN) 100 UNIT/ML ONE (19:41)
[2023-10-27] MEDS: ALBUTEROL 2.5 MG/3 ML NEB SOL NEB SCH (20:44)
[2023-10-27] MEDS: FAMOTIDINE 20 MG/2 ML VIAL IV SCH (21:45)
[2023-10-27] MEDS: NA CHLORIDE 0.9% 250 ML IV PRN ×2 (21:55→22:29)
[2023-10-27] MEDS ORDERED: NOREPINEPHRINE BITARTRATE/D5W 4 MG/250 ML BAG IV ONE (23:23)
[2023-10-27] MEDS ORDERED: NOREPINEPHRINE 4 MG in D5W 250 ML IV SCH (23:45)
[2023-10-28] MEDS: IPRATROPIUM BROM 0.5MG/2.5ML NEB SCH ×4 (01:05→20:34)
[2023-10-28] MEDS: ALBUTEROL 2.5 MG/3 ML NEB SOL NEB SCH ×4 (01:05→20:35)
[2023-10-28] MEDS ORDERED: ALBUTEROL 2.5 MG/3 ML NEB SOL ONE ×2 (01:23→07:42)
[2023-10-28] MEDS ORDERED: IPRATROPIUM BROM 0.5MG/2.5ML ONE ×2 (01:24→07:42)
[2023-10-28] MEDS: METHYLPREDNISOLONE 125 MG INJ IV SCH ×2 (01:32→06:43)
[2023-10-28] MEDS: HALOPERIDOL LACT 5 MG/ML INJ IV PRN (04:25)
[2023-10-28 05:12] LABS: Absolute Lymphocytes (CBC) 0.4 K/uL (0.7-4.9); Lymphocytes % 4.2 % (15.3-44.8); MCV 90.4 fL (80-100); MPV 7.1 fL (7.6-11.3); Platelets 272 thou/uL (152-406); RBC Red Blood Cell Count 4.21 M/uL (4.33-5.43)
[2023-10-28 05:58] LABS: Arterial Blood Carboxyhemoglob 0.7 % (0-1.5); Blood Gas Oxyhemoglobin 94.8 % (94-97); Blood O2 Saturation 97.2 % (92-98.5)
[2023-10-28 06:06] LABS: Albumin 2.7 g/dL (3.4-5.0); Bilirubin Total 0.5 mg/dL (0.2-1.0); Magnesium 2.1 mg/dL (1.6-2.4); Phosphorus 1.9 mg/dL (2.5-4.9); Potassium 4.8 mEq/L (3.5-5.1); Protein, Total 6.7 g/dL (6.4-8.2); Thyroid Stimulating Hormone 0.211 uIU/mL (0.358-3.740)
[2023-10-28] MEDS: FENTANYL CITR 100 MCG/2 ML IV PRN (06:08)
[2023-10-28] MEDS ORDERED: FENTANYL CITR 100 MCG/2 ML ONE (06:18)
[2023-10-28] MEDS: INSULIN REGULAR (HUMAN) 100 UNIT/ML SQ SCH (06:44)
--- NOTE | 2023-10-28 06:46 | RAD REPORT ---
EXAM DESCRIPTION: Saroj Single View10/28/2023 4:23 am CLINICAL HISTORY: Shortness of breath COMPARISON: October 27, 2023 FINDINGS: Tip of an endotracheal tube lies 2 centimeters above the thong. It is in good position. Central venous line in place. Nasogastric tube within the stomach. Mild bilateral pulmonary opacities. The heart is normal size IMPRESSION: Mild bilateral pulmonary opacities appear to have developed since prior exam
[2023-10-28 06:53] LABS: Blood Morphology Comment NOTED (NOT SEEN); Macrocytosis 1+; Platelet Estimate ADEQ; Polychromasia SLIGHT
[2023-10-28] MEDS ORDERED: METHYLPREDNISOLONE 125 MG INJ ONE (06:55)
[2023-10-28] MEDS ORDERED: INSULIN REGULAR (HUMAN) 100 UNIT/ML SQ SCH (07:23)
[2023-10-28] MEDS: DEXMEDETOMIDINE HCL 1,000 MCG in NA CHLORIDE 0.9% 490 ML IV SCH ×2 (07:45→17:14)
[2023-10-28] MEDS ORDERED: POTASSIUM PHOS IN 0.9 % NACL 15 MMOL/250 ML BAG IV ONE (08:00)
[2023-10-28] MEDS ORDERED: INSULIN GLARGINE 100 UNIT/ML SQ SCH (09:00)
[2023-10-28] MEDS: FAMOTIDINE 20 MG/2 ML VIAL IV SCH ×2 (09:58→22:28)
[2023-10-28] MEDS: CEFTRIAXONE 1,000 MG in NA CHLORIDE 0.9% 50 ML IVPB SCH (09:58)
[2023-10-28] MEDS: METHYLPREDNISOLONE 40 MG INJ IV SCH ×2 (09:59→22:29)
[2023-10-28] MEDS ORDERED: CEFTRIAXONE 1000 MG/VIAL ONE (10:09)
[2023-10-28] MEDS ORDERED: NA CHLORIDE 0.9% 50 ML ONE (10:09)
[2023-10-28] MEDS: MIDAZOLAM HCL 2 MG/2 ML INJ IV PRN ×3 (10:47→19:55)
--- NOTE | 2023-10-28 12:10 | P.CNS ---
Date of Consult: 10/27/23 Reason for Consult: Respiratory failure patient is on a ventilator Chief Complaint: Unresponsive History of Present Illness: It is 52 years of age history obtained from his currently he had COVID and recovered did a prolonged hospitalization and was using oxygen at home apparently he was doing well M6 suddenly according to his ended up in the ER and was discharged diagnosis of possible influenza became acutely worse unresponsive ended up here in the emergency room and was intubated and is also a diabetic fully unresponsive on a ventilator Allergies No Known Allergies Allergy (Verified 01/08/21 02:35) Home Medications: Atorvastatin Calcium 20 mg PO BEDTIME 02/22/22 Insulin Glargine,Hum.rec.anlog [Lantus] 50 units SQ BID 02/22/22 Pantoprazole [Protonix Tab*] 40 mg PO BID 02/22/22 Metoprolol Tartrate [Lopressor*] 50 mg PO BID #60 tab 02/23/22 Nebulizer Accessories [Aeroneb Go] 1 each MC DAILY #1 each 02/23/22 Nebulizer [Aeroneb Go Nebulizer] 1 each MC DAILY #1 each 02/23/22 Potassium Chloride 20 meq PO DAILY #30 tab.er.prt 02/23/22 Spironolactone [Aldactone*] 25 mg PO BID #60 tab 02/23/22 Insulin -Regular Human [Novolin -R*] 30 unit SQ BIDWM 10/27/23 Metformin HCl [Glucophage*] 1,000 mg PO BIDWM 10/27/23 - Past Medical/Surgical History Diabetic: Yes -: Type 2 Diabetes- Insulin Dependent -: Acid reflux -: Hypertension -: Hyperlipidemia -: Coronavirus pneumonia long hospitalization -: L pointer finger partial amputation Psychosocial/ Personal History: Patient lives at home with his . - Family History Mother Medical History: Hypertension, Diabetes - Social History Alcohol use: No CD- Drugs: No Caffeine use: Yes Place of Residence: Home Review of Systems is unable to be obtained Physical Examination Temp Pulse Resp BP Pulse Ox 98.2 F 77 16 104/57 L 97 10/28/23 08:00 10/28/23 08:00 10/28/23 08:00 10/28/23 08:00 10/28/23 08:00 General: Unresponsive Respiratory: Clear to auscultation bilaterally, Normal air movement Cardiovascular: Normal S1 S2, Edema (Significant edema) Gastrointestinal: Normal bowel sounds, Non-distended Musculoskeletal: No clubbing - Problems (1) Respiratory failure Current Visit: Yes Status: Acute Plan: Patient is 52 years of age admitted with acute onset of altered mental status respiratory failure multiorgan failure patient has respiratory acidosis normal LFTs daily impaired renal function evaded troponin chest x-ray shows some interstitial changes cardiomegaly of the head is negative and to continue with respiratory support continue with full anticoagulation for now see pulmonary angiogram when stable broad-spectrum antibiotic echocardiogram Qualifiers: Chronicity: unspecified
[2023-10-28] MEDS: LORazepam 2 MG/ML VIAL IV PRN ×2 (12:14→22:29)
--- NOTE | 2023-10-28 12:49 | P.PN ---
Subjective Date of Service: 10/28/23 Chief Complaint: Respiratory failure Patient is unresponsive on a ventilator change in patient's condition he is on a Precedex drip Review of Systems is unable to be obtained Physical Examination - Vital Signs Temperature: 98.2 F Blood Pressure: 104/57 Pulse: 77 Respirations: 16 Pulse Ox (%): 97 - Physical Exam General: Unresponsive Respiratory: Clear to auscultation bilaterally Cardiovascular: Normal S1 S2, Edema - Studies Microbiology Data (last 24 hrs): 10/27/23 04:25 Blood - Blood Anaerobic Blood Culture - Final Assessment And Plan - Current Problems (Diagnosis) (1) Respiratory failure Current Visit: Yes Status: Acute Plan: Patient is 52 years of age admitted with acute onset of altered mental status respiratory failure multiorgan failure patient has respiratory acidosis normal LFTs daily impaired renal function evaded troponin chest x-ray shows some interstitial changes cardiomegaly of the head is negative and to continue with respiratory support continue with full anticoagulation for now see pulmonary angiogram when stable broad-spectrum antibiotic echocardiogram Qualifiers: Chronicity: unspecified
[2023-10-28] MEDS ORDERED: D10W 250 ML BAG IV PRN (13:18)
[2023-10-28] MEDS ORDERED: GLUCAGON 1 MG/VIAL IM PRN (13:18)
[2023-10-28] MEDS ORDERED: INSULIN REGULAR (HUMAN) 100 UNIT/ML IV SCH (13:30)
[2023-10-28] MEDS: INSULIN -REGULAR HUMAN 100 UNIT in NA CHLORIDE 0.9% 100 ML IV SCH ×2 (14:28→20:17)
[2023-10-28] MEDS ORDERED: MIDAZOLAM HCL 2 MG/2 ML INJ ONE (20:07)
[2023-10-28] MEDS ORDERED: LORazepam 2 MG/ML VIAL ONE (22:37)
[2023-10-29] MEDS: ALBUTEROL 2.5 MG/3 ML NEB SOL NEB SCH ×4 (00:45→20:19)
[2023-10-29] MEDS: IPRATROPIUM BROM 0.5MG/2.5ML NEB SCH ×4 (00:45→20:19)
[2023-10-29] MEDS ORDERED: INSULIN REGULAR (HUMAN) 100 UNIT/ML ONE (01:32)
[2023-10-29] MEDS ORDERED: NA CHLORIDE 0.9% 100 ML ONE (01:32)
[2023-10-29] MEDS: DEXMEDETOMIDINE HCL 1,000 MCG in NA CHLORIDE 0.9% 490 ML IV SCH ×3 (01:47→22:23)
[2023-10-29] MEDS: INSULIN -REGULAR HUMAN 100 UNIT in NA CHLORIDE 0.9% 100 ML IV SCH ×3 (01:50→22:23)
[2023-10-29] MEDS: MIDAZOLAM HCL 2 MG/2 ML INJ IV PRN (02:24)
[2023-10-29] MEDS ORDERED: MIDAZOLAM HCL 2 MG/2 ML INJ ONE (02:35)
[2023-10-29] MEDS ORDERED: D5 0.45 NS 1,000 ML IV SCH (04:30)
[2023-10-29] MEDS ORDERED: D5 0.45 NS 1,000 ML IV ONE (04:38)
[2023-10-29 05:59] LABS: Absolute Lymphocytes (CBC) 0.4 K/uL (0.7-4.9); Hematocrit 34.3 % (39.6-49.0); Lymphocytes % 4.9 % (15.3-44.8); MCV 88.6 fL (80-100); MPV 7.1 fL (7.6-11.3); Platelets 262 thou/uL (152-406); RBC Red Blood Cell Count 3.87 M/uL (4.33-5.43)
[2023-10-29 06:18] LABS: Albumin 2.5 g/dL (3.4-5.0); Bilirubin Total 0.3 mg/dL (0.2-1.0); Magnesium 2.6 mg/dL (1.6-2.4); Phosphorus 1.6 mg/dL (2.5-4.9); Potassium 4.4 mEq/L (3.5-5.1); Protein, Total 6.2 g/dL (6.4-8.2)
[2023-10-29] MEDS: D5 0.45 NS 1,000 ML IV SCH (06:18)
--- NOTE | 2023-10-29 06:21 | ECHO ---
HEIGHT: 5 ft 11 in WEIGHT: 280 lb 0 oz DATE OF STUDY: 10/28/[address]: Tony Dick MD 2-DIMENSIONAL: YES M.MODE: YES DOPPLER: YES COLOR FLOW: YES TDS: YES PORTABLE: YES DEFINITY: BUBBLE STUDY: DIAGNOSIS: RESPIRATORY FAILURE CARDIAC HISTORY: CATHERIZATION: SURGERY: PROSTHETIC VALVE: PACEMAKER: MEASUREMENTS (cm) DIASTOLIC (NORMALS) SYSTOLIC (NORMALS) IVSd 1.0 (0.6-1.2) LA Diam 3.4 (1.9-4.0) LVEF 50-55% LVIDd 4.3 (3.5-5.7) LVIDs 2.7 (2.0-3.5) %FS 36% LVPWd 1.1 (0.6-1.2) Ao Diam 3.1 (2.0-3.7) 2 DIMENSIONAL ASSESSMENT: RIGHT ATRIUM: NORMAL LEFT ATRIUM: NORMAL RIGHT VENTRICLE: NORMAL LEFT VENTRICLE: NORMAL TRICUSPID VALVE: MILD TRICUSPID REGURGITATION MITRAL VALVE: MILD MITRAL REGURGITATION PULMONIC VALVE: NORMAL AORTIC VALVE: NORMAL PERICARDIAL EFFUSION: NONE AORTIC ROOT: NORMAL LEFT VENTRICULAR WALL MOTION: NORMAL DOPPLER/COLOR FLOW: SEE BELOW COMMENTS: 1. NORMAL LEFT VENTRICULAR EJECTION FRACTION 50-55% 2. NORMAL WALL MOTION 3. MILD MITRAL REGURGITATION 4. MILD TRICUSPID REGURGITATION 5. GRADE I DIASTOLIC DYSFUNCTION TECHNOLOGIST: NEMESIO BECKER
[2023-10-29] MEDS ORDERED: IPRATROPIUM BROM 0.5MG/2.5ML ONE ×2 (07:43→14:21)
[2023-10-29] MEDS ORDERED: POTASSIUM PHOS IN 0.9 % NACL 15 MMOL/250 ML BAG IV ONE (08:00)
[2023-10-29] MEDS: METHYLPREDNISOLONE 40 MG INJ IV SCH (08:33)
[2023-10-29] MEDS: CEFTRIAXONE 1,000 MG in NA CHLORIDE 0.9% 50 ML IVPB SCH (09:02)
[2023-10-29] MEDS: FAMOTIDINE 20 MG/2 ML VIAL IV SCH ×2 (09:03→20:45)
[2023-10-29] MEDS ORDERED: SODIUM PHOSPHATE 30 MM in NA CHLORIDE 0.9% 500 ML IV ONE (09:15)
--- NOTE | 2023-10-29 12:37 | P.PN ---
Subjective Date of Service: 10/29/23 Chief Complaint: Respiratory failure Patient was sedated this morning on Precedex drip otherwise hemodynamically stable unresponsive Review of Systems is unable to be obtained Physical Examination - Vital Signs Temperature: 99.0 F Blood Pressure: 126/68 Pulse: 82 Respirations: 20 Pulse Ox (%): 98 - Physical Exam General: Unresponsive Respiratory: Clear to auscultation bilaterally Cardiovascular: Regular rate/rhythm, Normal S1 S2, Edema Assessment And Plan - Current Problems (Diagnosis) (1) Respiratory failure Current Visit: Yes Status: Acute Plan: Patient is improving hemodynamically is stable and to wean off the Precedex and the ventilator DC steroids IV fluids we will give some Lasix patient is on an insulin drip signs stable FiO2 40% echocardiogram showed grade 1 diastolic dysfunction Qualifiers: Chronicity: unspecified
--- NOTE | 2023-10-29 13:29 | P.HP ---
Certification for Inpatient Patient admitted to: Inpatient With expected LOS: >2 Midnights Patient will require the following post-hospital care: None Practitioner: I am a practitioner with admitting privileges, knowledge of patient current condition, hospital course, and medical plan of care. Services: Services provided to patient in accordance with Admission requirements found in Title 42 Section 412.3 of the Code of Federal Regulations Patient History Date of Service: 10/27/23 Reason for admission: Respiratory failure History of Present Illness: Patient is a 52yo who was admitted to the hospital with respiratory failure. Patient was brought into the hospital with altered mental status. Patient was hypercapneic and had to be intubated. Patient is morbidly obese and patient has apparently been doing well until this evening. The states he woke up to go to the bathroom and she found him breathing funny on the toilet. She asked him to get up and come to bed which she did. She does not think he put on his BiPAP that night. When she woke up he was apneic for an extended period of time so she called EMS. Patient was brought into the emergency room for further care. Patient was placed on BiPAP; however, patient's CO2 even on BiPAP was going up. Patient required intubation. Patient will be admitted to the intensive care unit for further care. Allergies No Known Allergies Allergy (Verified 01/08/21 02:35) Home Medications: Atorvastatin Calcium 20 mg PO BEDTIME 02/22/22 Insulin Glargine,Hum.rec.anlog [Lantus] 50 units SQ BID 02/22/22 Pantoprazole [Protonix Tab*] 40 mg PO BID 02/22/22 Metoprolol Tartrate [Lopressor*] 50 mg PO BID #60 tab 02/23/22 Nebulizer Accessories [Aeroneb Go] 1 each MC DAILY #1 each 02/23/22 Nebulizer [Aeroneb Go Nebulizer] 1 each MC DAILY #1 each 02/23/22 Potassium Chloride 20 meq PO DAILY #30 tab.er.prt 02/23/22 Spironolactone [Aldactone*] 25 mg PO BID #60 tab 02/23/22 Insulin -Regular Human [Novolin -R*] 30 unit SQ BIDWM 10/27/23 Metformin HCl [Glucophage*] 1,000 mg PO BIDWM 10/27/23 - Past Medical/Surgical History Diabetic: Yes -: Type 2 Diabetes- Insulin Dependent -: Acid reflux -: Hypertension -: Hyperlipidemia -: Coronavirus pneumonia long hospitalization -: L pointer finger partial amputation Psychosocial/ Personal History: Patient lives at home with his . - Family History Mother Medical History: Hypertension, Diabetes - Social History Smoking Status: Former smoker Alcohol use: No CD- Drugs: No Caffeine use: Yes Place of Residence: Home Review of Systems is unable to be obtained Physical Examination - Vital Signs Temperature: 99.0 F Blood Pressure: 126/68 Pulse: 82 Respirations: 20 Pulse Ox (%): 98 - Physical Exam General: Obese, Other (Sedated and intubated) HEENT: Atraumatic, Normocephalic, Other (Sedated and intubated) Neck: Supple, 2+ carotid pulse no bruit, JVD not distended, No Thyromegaly Respiratory: Diminished Cardiovascular: Regular rate/rhythm, Normal S1 S2 Gastrointestinal: Normal bowel sounds, Hypoactive, Soft and benign, Non- distended Musculoskeletal: No clubbing, No swelling, No contractures, No erythema Integumentary: No rashes Neurological: Other (Patient is lethargic; currently sedated and intubated) Assessment & Plan - Problems (Diagnosis) (1) Acute hypoxic on chronic hypercapnic respiratory failure Current Visit: Yes Status: Acute (2) History of home oxygen therapy Current Visit: No Status: Chronic (3) Hyperlipidemia Current Visit: No Status: Chronic Qualifiers: Hyperlipidemia type: mixed hyperlipidemia Qualified Code(s): E78.2 - Mixed hyperlipidemia (4) Hypertension Current Visit: No Status: Chronic Qualifiers: Hypertension type: primary hypertension Qualified Code(s): I10 - Essential (primary) hypertension (5) Morbid obesity due to excess calories Current Visit: No Status: Chronic (6) Type 2 diabetes mellitus Current Visit: No Status: Chronic Qualifiers: Diabetes mellitus meterman insulin use: with assisted use Diabetes mellitus complication status: without complication Qualified Code(s): E11.9 - Type 2 diabetes mellitus without complications; Z79.4 - intermediate (current) use of insulin - Plan Plan: 1. Patient with acute hypoxic and hypercapnic respiratory failure; at this time, we will continue with vent support. Pulmonary consultation. Continue with nebs, steroids, and antibiotics. Continue with antibiotic therapy. Continue with gentle diuresing as well. Patient appears to have heart failure with preserved ejection fraction; will get a echocardiogram as well. Continue with diuresing at this time. 2. History of hypertension and diabetes; continue with supportive care. Patient with morbid obesity and will delinquency counselor once he is extubated regarding diet and exercise. Patient may benefit from GLP-1 agonist. 3. GI DVT prophylaxis Discharge Plan: Home Plan to discharge in: Greater than 2 days - Advance Directives Does patient have a Living Will: Yes Does patient have a Durable POA for Healthcare: Yes - Code Status/Comfort Care Code Status Assessed: Yes Code Status: Full Code Critical Care: Yes Time Spent Managing PTS Care (In Minutes): 70
[2023-10-29] MEDS: INSULIN GLARGINE 100 UNIT/ML SQ SCH (13:33)
[2023-10-29] MEDS ORDERED: FUROSEMIDE 40 MG/4 ML VIAL IV ONE (13:45)
[2023-10-29] MEDS ORDERED: FUROSEMIDE 40 MG/4 ML VIAL ONE (13:52)
[2023-10-29] MEDS: LORazepam 2 MG/ML VIAL IV PRN (14:21)
[2023-10-29] MEDS ORDERED: ALBUTEROL 2.5 MG/3 ML NEB SOL ONE (14:21)
--- NOTE | 2023-10-29 15:19 | EKG ---
Test Date: 2023-10-27 Test Time: 22:56:13 Review Specialist: NEERU MEASUREMENT RESULTS: Intervals: Rate: 71 [place]: 132 QRSD: 80 QT: 368 QTc: 399 [place]: P: 52 [place]: 132 QRS: 6 T: 42 INTERPRETIVE STATEMENTS: Normal sinus rhythm Inferior infarct, age undetermined Abnormal ECG Compared to ECG 10/27/2023 05:10:58 Sinus tachycardia no longer present Myocardial infarct finding still present Electronically Signed On 10-29-23 15:12:55 RELEASE MANAGER by Ceasar Nguyen
--- NOTE | 2023-10-29 15:23 | EKG ---
Test Date: 2023-10-27 Test Time: 05:10:58 Demolition Worker: MANAS MEASUREMENT RESULTS: Intervals: Rate: 115 [place]: 132 QRSD: 82 QT: 322 QTc: 445 [place]: P: 61 [place]: 132 QRS: 22 T: 45 INTERPRETIVE STATEMENTS: Sinus tachycardia Possible Anterior infarct, age undetermined Abnormal ECG Compared to ECG 10/27/2023 05:10:03 Fusion complex(es) no longer present Ventricular premature complex(es) no longer present Ventricular-paced complex(es) or rhythm no longer present Myocardial infarct finding still present Electronically Signed On 10-29-23 15:14:11 CHIEF PILOT by Ceasar Nguyen
--- NOTE | 2023-10-29 15:23 | EKG ---
Test Date: 2023-10-27 Test Time: 05:10:03 Sheep Shearer: MANAS MEASUREMENT RESULTS: Intervals: Rate: 118 [place]: 136 QRSD: 76 QT: 310 QTc: 434 [place]: P: 65 [place]: 136 QRS: 21 T: 23 INTERPRETIVE STATEMENTS: Sinus tachycardia Possible Inferior infarct, age undetermined Possible Anterior infarct, age undetermined Abnormal ECG Compared to ECG 10/25/2023 16:05:17 Fusion complex(es) now present Myocardial infarct finding now present Sinus rhythm no longer present Electronically Signed On 10-29-23 15:14:29 DEVELOPER EVANGELIST by Ceasar Nguyen
[2023-10-30] MEDS: IPRATROPIUM BROM 0.5MG/2.5ML NEB SCH ×4 (00:12→19:45)
[2023-10-30] MEDS: ALBUTEROL 2.5 MG/3 ML NEB SOL NEB SCH ×4 (00:12→19:00)
[2023-10-30] MEDS: D5 0.45 NS 1,000 ML IV SCH ×2 (02:14→21:41)
[2023-10-30] MEDS: HALOPERIDOL LACT 5 MG/ML INJ IV PRN (05:15)
[2023-10-30] MEDS: MIDAZOLAM HCL 2 MG/2 ML INJ IV PRN (05:15)
[2023-10-30 05:18] LABS: Hematocrit 36.4 % (39.6-49.0); Lymphocytes % 11.6 % (15.3-44.8); MCV 89.3 fL (80-100); MPV 6.9 fL (7.6-11.3); Platelets 235 thou/uL (152-406); RBC Red Blood Cell Count 4.08 M/uL (4.33-5.43)
[2023-10-30 05:26] LABS: Albumin 2.5 g/dL (3.4-5.0); Bilirubin Total 0.4 mg/dL (0.2-1.0); Potassium 3.6 mEq/L (3.5-5.1); Protein, Total 6.2 g/dL (6.4-8.2)
[2023-10-30] MEDS ORDERED: KCL 20 MEQ/100 mL IVPB 20 MEQ/100 ML BAG IV ONE (07:00)
--- NOTE | 2023-10-30 07:23 | RAD REPORT ---
EXAM DESCRIPTION: CT - Head Brain Wo Cont - 10/30/2023 7:04 am CLINICAL HISTORY: AMS COMPARISON: Head Brain Wo Cont dated 10/27/2023 TECHNIQUE: All CT scans are performed using dose optimization technique as appropriate and may inclu de automated exposure control or mA/KV adjustment according to patient size. FINDINGS: No intracranial hemorrhage, hydrocephalus or extra-axial fluid collection.No areas of brai n edema or evidence of midline shift. Circumferential thickening in the sphenoid sinuses. The calvarium is intact. Orogastric/ endotracheal tubes. 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 IMPRESSION: No acute intracranial abnormality.
[2023-10-30] MEDS ORDERED: IPRATROPIUM BROM 0.5MG/2.5ML ONE ×2 (07:51→20:01)
[2023-10-30] MEDS ORDERED: ALBUTEROL 2.5 MG/3 ML NEB SOL ONE ×2 (07:51→20:01)
[2023-10-30] MEDS ORDERED: INSULIN GLARGINE 100 UNIT/ML SQ SCH (09:00)
[2023-10-30 09:17] LABS: Specific Gravity 1.018 (1.005-1.030); Urine Bacteria <20 /HPF (<20); Urine Bilirubin NEGATIVE (Negative); Urine Blood Negative (Negative); Urine Clarity Turbid (Clear); Urine Color Light-Yellow (Yellow); Urine Glucose NEGATIVE (Negative); Urine Mucus Slight /HPF (None Seen); Urine Protein NEGATIVE (Negative); Urine RBC <5 /HPF (None Seen); Urine Urobilinogen Normal (Normal); Urine pH 5.5 (5.0-7.0)
[2023-10-30] MEDS ORDERED: NA CHLORIDE 0.9% 100 ML ONE (09:21)
[2023-10-30] MEDS ORDERED: Meropenem 1000 MG/VIAL IV ONE (09:21)
[2023-10-30] MEDS ORDERED: NA CHLORIDE 0.9% 500 ML ONE (09:31)
[2023-10-30] MEDS ORDERED: ENOXAPARIN 100 MG/ML SYR SQ ONE (09:54)
[2023-10-30] MEDS ORDERED: CEFTRIAXONE 1000 MG/VIAL ONE (09:54)
[2023-10-30] MEDS ORDERED: FAMOTIDINE 20 MG/2 ML VIAL IV ONE (09:55)
[2023-10-30] MEDS: INSULIN GLARGINE 100 UNIT/ML SQ SCH (09:55)
[2023-10-30] MEDS ORDERED: ENOXAPARIN 30 MG/0.3 ML SQ ONE (09:55)
[2023-10-30] MEDS ORDERED: NA CHLORIDE 0.9% 50 ML ONE (09:55)
[2023-10-30] MEDS: DEXMEDETOMIDINE HCL 1,000 MCG in NA CHLORIDE 0.9% 490 ML IV SCH (09:56)
[2023-10-30] MEDS: CEFTRIAXONE 1,000 MG in NA CHLORIDE 0.9% 50 ML IVPB SCH (09:57)
[2023-10-30] MEDS: FAMOTIDINE 20 MG/2 ML VIAL IV SCH ×2 (09:57→21:00)
[2023-10-30] MEDS ORDERED: NOREPINEPHRINE BITARTRATE/D5W 4 MG/250 ML BAG IV SCH (10:00)
[2023-10-30] MEDS: FENTANYL CITR 100 MCG/2 ML IV PRN (12:04)
[2023-10-30] MEDS ORDERED: FENTANYL CITR 100 MCG/2 ML ONE (12:07)
--- NOTE | 2023-10-30 12:12 | P.PN ---
Subjective Date of Service: 10/30/23 Chief Complaint: Respiratory failure Is 52 years of age admitted with respiratory failure failed weaning trial continues to remain very agitated on IV thiamine to SIMV pressure support Review of Systems is unable to be obtained Physical Examination - Vital Signs Temperature: 97.3 F Blood Pressure: 118/70 Pulse: 57 Respirations: 24 Pulse Ox (%): 100 - Physical Exam General: Unresponsive Respiratory: Clear to auscultation bilaterally Cardiovascular: Regular rate/rhythm, Normal S1 S2, Edema Assessment And Plan - Current Problems (Diagnosis) (1) Respiratory failure Current Visit: Yes Status: Acute Plan: Patient admitted with respiratory failure. Weaning trial changed to SIMV pressure support mildly hyponatremic renal function is improved White count normal blood cultures so far negative echo shows grade 1 diastolic dysfunction interstitial changes on CT scan were noted recently no acute changes present on EKG currently he uses oxygen at home has been having problems since he had COVID Qualifiers: Chronicity: unspecified
[2023-10-30] MEDS ORDERED: GLUCAGON 1 MG/VIAL IM PRN (21:36)
[2023-10-30] MEDS ORDERED: D50W 25 GM/50 ML SYRINGE IV PRN (21:36)
[2023-10-30] MEDS ORDERED: D10W 125 ML IV PRN (22:00)
[2023-10-31] MEDS: ALBUTEROL 2.5 MG/3 ML NEB SOL NEB SCH ×3 (01:00→08:24)
[2023-10-31] MEDS: IPRATROPIUM BROM 0.5MG/2.5ML NEB SCH ×4 (01:10→18:02)
[2023-10-31] MEDS ORDERED: ALBUTEROL 2.5 MG/3 ML NEB SOL ONE ×2 (01:43→08:34)
[2023-10-31] MEDS ORDERED: IPRATROPIUM BROM 0.5MG/2.5ML ONE ×4 (01:43→18:09)
[2023-10-31 05:13] LABS: Absolute Lymphocytes (CBC) 1.7 K/uL (0.7-4.9); Hematocrit 37.6 % (39.6-49.0); Lymphocytes % 25.6 % (15.3-44.8); MCV 90.1 fL (80-100); MPV 7.1 fL (7.6-11.3); Platelets 209 thou/uL (152-406); RBC Red Blood Cell Count 4.18 M/uL (4.33-5.43)
[2023-10-31 05:36] LABS: Magnesium 2.6 mg/dL (1.6-2.4); Phosphorus 3.9 mg/dL (2.5-4.9); Potassium 3.3 mEq/L (3.5-5.1)
[2023-10-31] MEDS: KCL 20 MEQ/100 mL IVPB 20 MEQ/100 ML BAG IV SCH ×2 (06:22→08:01)
[2023-10-31] MEDS ORDERED: NA CHLORIDE 0.9% 100 ML ONE (06:33)
[2023-10-31] MEDS: INSULIN REGULAR (HUMAN) 100 UNIT/ML SQ SCH ×4 (07:30→21:00)
[2023-10-31] MEDS ORDERED: FUROSEMIDE 40 MG/4 ML VIAL IV ONE (07:39)
[2023-10-31] MEDS: FAMOTIDINE 20 MG/2 ML VIAL IV SCH (08:01)
[2023-10-31] MEDS ORDERED: FUROSEMIDE 40 MG/4 ML VIAL ONE (08:01)
[2023-10-31] MEDS: CEFTRIAXONE 1,000 MG in NA CHLORIDE 0.9% 50 ML IVPB SCH (08:01)
[2023-10-31] MEDS: ENOXAPARIN 40 MG/0.4 ML SQ SCH (08:01)
[2023-10-31] MEDS: INSULIN GLARGINE 100 UNIT/ML SQ SCH (08:01)
--- NOTE | 2023-10-31 09:04 | RAD REPORT ---
EXAM DESCRIPTION: RAD - Chest Single View - 10/31/2023 8:04 am CLINICAL HISTORY: tachypnea Chest pain. COMPARISON: Chest Single View dated 10/28/2023; Chest Single View dated 10/27/2023; Chest Single Vie w dated 10/27/2023; Chest Single View dated 10/27/2023 FINDINGS: Portable technique limits examination quality. Mild interstitial pulmonary edema suspected. The heart is moderately enlarged. No displaced fractures .Left-sided venous catheter tip in the SVC. IMPRESSION: Mild CHF versus volume overload is possible.
[2023-10-31 10:13] LABS: Blood Gas Oxyhemoglobin 86.5 % (94-97); Blood O2 Saturation 88.9 % (92-98.5)
--- NOTE | 2023-10-31 11:00 | P.PN ---
Subjective Date of Service: 10/31/23 Chief Complaint: Respiratory failure Patient was extubated yesterday more alert responsive cooperative back on BiPAP Review of Systems is unable to be obtained Physical Examination - Vital Signs Temperature: 97.2 F Blood Pressure: 133/80 Pulse: 113 Respirations: 24 Pulse Ox (%): 99 - Physical Exam General: Alert, Cooperative Respiratory: Clear to auscultation bilaterally Cardiovascular: Regular rate/rhythm, Normal S1 S2, Edema Gastrointestinal: Normal bowel sounds, Soft and benign Assessment And Plan - Current Problems (Diagnosis) (1) Respiratory failure Current Visit: Yes Status: Acute Plan: Patient was extubated yesterday back on BiPAP hyponatremic hypokalemic blood sugar control patient is eating and drinking x-ray shows cardiomegaly patient has a history of tachycardia DC albuterol oxygenation satisfactory opponent's were initially elevated probably demand ischemia he will need a cardiac work-up Qualifiers: Chronicity: unspecified
[2023-10-31] MEDS ORDERED: INSULIN REGULAR (HUMAN) 100 UNIT/ML ONE (12:07)
[2023-10-31] MEDS ORDERED: METOPROLOL TARTRATE 5 MG/5 ML INJ IV STA (12:15)
[2023-10-31] MEDS ORDERED: LABETALOL 20 MG/4ML SYRINGE IV ONE (13:01)
[2023-10-31] MEDS ORDERED: METOPROLOL TARTRATE 5 MG/5 ML INJ IV ONE (13:03)
[2023-10-31] MEDS ORDERED: POTASSIUM CL SA 10 MEQ TAB PO ONE (16:50)
[2023-10-31] MEDS: METOPROLOL XL 50 MG TAB PO SCH (17:05)
[2023-10-31] MEDS: D5 0.45 NS 1,000 ML IV SCH (18:18)
[2023-11-01] MEDS ORDERED: POTASSIUM 25 MEQ EFFERV TAB PO ONE (01:42)
[2023-11-01] MEDS: IPRATROPIUM BROM 0.5MG/2.5ML NEB SCH ×4 (02:15→20:21)
[2023-11-01] MEDS ORDERED: IPRATROPIUM BROM 0.5MG/2.5ML ONE ×4 (02:38→19:31)
[2023-11-01] MEDS: METOPROLOL XL 50 MG TAB PO SCH ×2 (05:04→17:07)
[2023-11-01 06:32] LABS: Absolute Lymphocytes (CBC) 1.4 K/uL (0.7-4.9); Hematocrit 38.5 % (39.6-49.0); Lymphocytes % 23.5 % (15.3-44.8); MCV 89.3 fL (80-100); MPV 7.2 fL (7.6-11.3); Platelets 182 thou/uL (152-406); RBC Red Blood Cell Count 4.31 M/uL (4.33-5.43)
[2023-11-01 06:34] LABS: Magnesium 2.2 mg/dL (1.6-2.4); Phosphorus 3.2 mg/dL (2.5-4.9); Potassium 3.8 mEq/L (3.5-5.1)
[2023-11-01] MEDS ORDERED: POTASSIUM CL SA 10 MEQ TAB PO ONE (07:20)
[2023-11-01] MEDS: INSULIN REGULAR (HUMAN) 100 UNIT/ML SQ SCH ×3 (07:30→17:07)
[2023-11-01] MEDS: INSULIN GLARGINE 100 UNIT/ML SQ SCH (08:26)
[2023-11-01] MEDS: CEFTRIAXONE 1,000 MG in NA CHLORIDE 0.9% 50 ML IVPB SCH (08:26)
[2023-11-01] MEDS: ENOXAPARIN 40 MG/0.4 ML SQ SCH (08:26)
[2023-11-01] MEDS: D5 0.45 NS 1,000 ML IV SCH (11:37)
--- NOTE | 2023-11-01 11:58 | P.PN ---
Subjective Date of Service: 11/01/23 Chief Complaint: Respiratory failure Patient is doing much better today is very alert responsive cooperative at the bedside and is now conversing he does not recall the event that precipitated this admission eyes any chest pain Review of Systems General: Weakness Respiratory: Shortness of Breath Physical Examination - Vital Signs Temperature: 97.0 F Blood Pressure: 123/80 Pulse: 98 Respirations: 28 Pulse Ox (%): 94 - Physical Exam General: Alert, Oriented x3 Respiratory: Clear to auscultation bilaterally, Diminished Cardiovascular: Regular rate/rhythm, Edema - Studies Microbiology Data (last 24 hrs): 10/27/23 04:25 Blood - Blood Aerobic Blood Culture - Final No growth in 5 days. 10/27/23 04:25 Blood - Blood Anaerobic Blood Culture - Final Assessment And Plan - Current Problems (Diagnosis) (1) Respiratory failure Current Visit: Yes Status: Acute Plan: Patient admitted with respiratory failure he is improved significantly now very alert responsive cooperative labs chemistries all reviewed blood cultures negative no evidence of sepsis possible that he had a coronary event and probably benefit from a chemical stress test and is on home O2 DC antibiotic Qualifiers: Chronicity: unspecified
--- NOTE | 2023-11-01 16:31 | P.PN ---
Date of Service: 10/28/23 Subjective Patient still very lethargic. Pulmonary following the patient. Patient unresponsive. Waking up to painful stimuli. Physical Examination - Vital Signs Reviewed - Physical Exam General: Obese, Other (Sedated and intubated) HEENT: Atraumatic, Normocephalic, Other (Sedated and intubated) Neck: Thick neck Respiratory: Diminished Cardiovascular: Regular rate/rhythm, Normal S1 S2 Gastrointestinal: Normal bowel sounds, Hypoactive, Soft and benign, Non- distended Musculoskeletal: No clubbing, No swelling, No contractures, No erythema Neurological: Other (Patient is lethargic; currently sedated and intubated) Assessment & Plan - Problems (Diagnosis) (1) Acute hypoxic on chronic hypercapnic respiratory failure Current Visit: Yes Status: Acute (2) History of home oxygen therapy Current Visit: No Status: Chronic (3) Hyperlipidemia Current Visit: No Status: Chronic Qualifiers: Hyperlipidemia type: mixed hyperlipidemia Qualified Code(s): E78.2 - Mixed hyperlipidemia (4) Hypertension Current Visit: No Status: Chronic Qualifiers: Hypertension type: primary hypertension Qualified Code(s): I10 - Essential (primary) hypertension (5) Morbid obesity due to excess calories Current Visit: No Status: Chronic (6) Type 2 diabetes mellitus Current Visit: No Status: Chronic Qualifiers: Diabetes mellitus communication engineer insulin use: with longterm use Diabetes mellitus complication status: without complication Qualified Code(s): E11.9 - Type 2 diabetes mellitus without complications; Z79.4 - licensed social worker (current) use of insulin - Plan Continue with plan of care as mentioned below: 1. Patient with acute hypoxic and hypercapnic respiratory failure; at this time, we will continue with vent support. Pulmonary consultation appreciated. Continue with nebs, steroids, and antibiotics. Continue with antibiotic therapy. Continue with gentle diuresing as well. Patient appears to have heart failure with preserved ejection fraction; will get a echocardiogram as well. Continue with diuresing at this time. Spontaneous breathing trials. 2. History of hypertension and diabetes; continue with supportive care. Patient with morbid obesity and will dormitory counselor once he is extubated regarding diet and exercise. Patient may benefit from GLP-1 agonist. 3. GI DVT prophylaxis Discharge Plan: Home Plan to discharge in: Greater than 2 days - Advance Directives Does patient have a Living Will: Yes Does patient have a Durable POA for Healthcare: Yes - Code Status/Comfort Care Code Status Assessed: Yes Code Status: Full Code Critical Care: Yes Time Spent Managing PTS Care (In Minutes): 70
--- NOTE | 2023-11-01 16:33 | P.PN ---
Date of Service: 10/29/23 Subjective Patient remains intubated and sedated. Clinical symptoms have started improving and patient's still a little more lethargic than we would like on spontaneous breathing trial. Anticipate extubation over the next 24 to 48 hours. Physical Examination - Vital Signs Reviewed - Physical Exam General: Obese, Other (Sedated and intubated) HEENT: Atraumatic, Normocephalic, Other (Sedated and intubated) Neck: Thick neck Respiratory: Diminished Cardiovascular: Regular rate/rhythm, Normal S1 S2 Gastrointestinal: Normal bowel sounds, Hypoactive, Soft and benign, Non- distended Musculoskeletal: No clubbing, No swelling, No contractures, No erythema Neurological: Other (Patient is lethargic; currently sedated and intubated) Assessment & Plan - Problems (Diagnosis) (1) Acute hypoxic on chronic hypercapnic respiratory failure Current Visit: Yes Status: Acute (2) History of home oxygen therapy Current Visit: No Status: Chronic (3) Hyperlipidemia Current Visit: No Status: Chronic Qualifiers: Hyperlipidemia type: mixed hyperlipidemia Qualified Code(s): E78.2 - Mixed hyperlipidemia (4) Hypertension Current Visit: No Status: Chronic Qualifiers: Hypertension type: primary hypertension Qualified Code(s): I10 - Essential (primary) hypertension (5) Morbid obesity due to excess calories Current Visit: No Status: Chronic (6) Type 2 diabetes mellitus Current Visit: No Status: Chronic Qualifiers: Diabetes mellitus mcfp insulin use: with mcfp use Diabetes mellitus complication status: without complication Qualified Code(s): E11.9 - Type 2 diabetes mellitus without complications; Z79.4 - terminal operator (current) use of insulin - Plan Continue with plan of care as mentioned below: 1. Patient with acute hypoxic and hypercapnic respiratory failure; at this time, we will continue with vent support. Pulmonary consultation appreciated. Continue with nebs, steroids, and antibiotics. Continue with antibiotic therapy. Continue with gentle diuresing as well. Patient appears to have heart failure with preserved ejection fraction; echocardiogram with diastolic dysfunction but no other abnormalities noted. Continue with diuresing at this time. Spontaneous breathing trials. 2. History of hypertension and diabetes; continue with supportive care. Patient with morbid obesity and will pet counselor once he is extubated regarding diet and exercise. Patient may benefit from GLP-1 agonist. 3. GI DVT prophylaxis Discharge Plan: Home Plan to discharge in: Greater than 2 days - Advance Directives Does patient have a Living Will: Yes Does patient have a Durable POA for Healthcare: Yes - Code Status/Comfort Care Code Status Assessed: Yes Code Status: Full Code Critical Care: Yes Time Spent Managing PTS Care (In Minutes): 70
--- NOTE | 2023-11-01 16:38 | P.PN ---
Date of Service: 10/30/23 Subjective Patient was extubated today. Patient clinically doing well postextubation. Weaned off of sedation as well. Physical Examination - Vital Signs Reviewed - Physical Exam General: Awake and follows commands HEENT: WNL Neck: Thick neck Respiratory: Diminished Cardiovascular: Regular rate/rhythm, Normal S1 S2 Gastrointestinal: Normal bowel sounds, Hypoactive, Soft and benign, Non- distended Musculoskeletal: No clubbing, No swelling, No contractures, No erythema Neurological: Other (Patient is lethargic; following commands) Assessment & Plan - Problems (Diagnosis) (1) Acute hypoxic on chronic hypercapnic respiratory failure Current Visit: Yes Status: Acute (2) History of home oxygen therapy Current Visit: No Status: Chronic (3) Hyperlipidemia Current Visit: No Status: Chronic Qualifiers: Hyperlipidemia type: mixed hyperlipidemia Qualified Code(s): E78.2 - Mixed hyperlipidemia (4) Hypertension Current Visit: No Status: Chronic Qualifiers: Hypertension type: primary hypertension Qualified Code(s): I10 - Essential (primary) hypertension (5) Morbid obesity due to excess calories Current Visit: No Status: Chronic (6) Type 2 diabetes mellitus Current Visit: No Status: Chronic Qualifiers: Diabetes mellitus buttermaker insulin use: with buttermaker use Diabetes mellitus complication status: without complication Qualified Code(s): E11.9 - Type 2 diabetes mellitus without complications; Z79.4 - shelter (current) use of insulin - Plan Continue with plan of care as mentioned below: 1. Patient with acute hypoxic and hypercapnic respiratory failure; patient was extubated. Patient doing well. Start physical therapy. Continue with nebs, steroids, antibiotics. Continue with pulmonary follow-up. 2. History of hypertension and diabetes; continue with supportive care. Patient with morbid obesity and will counseling psychologist regarding diet and exercise. Patient may benefit from GLP-1 agonist. 3. GI DVT prophylaxis Discharge Plan: Home Plan to discharge in: Greater than 2 days - Advance Directives Does patient have a Living Will: Yes Does patient have a Durable POA for Healthcare: Yes - Code Status/Comfort Care Code Status Assessed: Yes Code Status: Full Code Critical Care: Yes Time Spent Managing PTS Care (In Minutes): 70
--- NOTE | 2023-11-01 16:40 | P.PN ---
Date of Service: 10/31/23 Subjective Patient continues to do well. Patient more awake and alert. Patient still gets tachypneic when moving around. Patient denies any new complaints. Physical Examination - Vital Signs Reviewed - Physical Exam General: Awake and follows commands HEENT: WNL Neck: Thick neck Respiratory: Diminished Cardiovascular: Regular rate/rhythm, Normal S1 S2 Gastrointestinal: Normal bowel sounds, Hypoactive, Soft and benign, Non- distended Musculoskeletal: No clubbing, No swelling, No contractures, No erythema Neurological: Other (Patient is lethargic; following commands) Assessment & Plan - Problems (Diagnosis) (1) Acute hypoxic on chronic hypercapnic respiratory failure Current Visit: Yes Status: Acute (2) History of home oxygen therapy Current Visit: No Status: Chronic (3) Hyperlipidemia Current Visit: No Status: Chronic Qualifiers: Hyperlipidemia type: mixed hyperlipidemia Qualified Code(s): E78.2 - Mixed hyperlipidemia (4) Hypertension Current Visit: No Status: Chronic Qualifiers: Hypertension type: primary hypertension Qualified Code(s): I10 - Essential (primary) hypertension (5) Morbid obesity due to excess calories Current Visit: No Status: Chronic (6) Type 2 diabetes mellitus Current Visit: No Status: Chronic Qualifiers: Diabetes mellitus laborer marine terminal insulin use: with care home use Diabetes mellitus complication status: without complication Qualified Code(s): E11.9 - Type 2 diabetes mellitus without complications; Z79.4 - long term care administrator (current) use of insulin - Plan Continue with plan of care as mentioned below: 1. Patient with acute hypoxic and hypercapnic respiratory failure; status post- extubation day #1. Patient doing well. Starting physical therapy. Continue with nebs, steroids, antibiotics. Continue with pulmonary follow-up. 2. History of hypertension and diabetes; continue with supportive care. Patient with morbid obesity and will career guidance counselor regarding diet and exercise. Patient may benefit from GLP-1 agonist upon follow-up. 3. GI DVT prophylaxis Discharge Plan: Home Plan to discharge in: Greater than 2 days - Advance Directives Does patient have a Living Will: Yes Does patient have a Durable POA for Healthcare: Yes - Code Status/Comfort Care Code Status Assessed: Yes Code Status: Full Code Critical Care: Yes Time Spent Managing PTS Care (In Minutes): 70
--- NOTE | 2023-11-01 16:42 | P.PN ---
Date of Service: 11/01/23 Subjective Patient clinically doing well. Patient's status postextubation day #2- 10/30/2003. Patient is doing well. Getting out of bed into the side of the bed with less tachypnea. Starting physical therapy. We will encourage him to get out of bed and ambulate. Physical Examination - Vital Signs Reviewed - Physical Exam General: Awake and follows commands HEENT: WNL Neck: Thick neck Respiratory: Diminished Cardiovascular: Regular rate/rhythm, Normal S1 S2 Gastrointestinal: Normal bowel sounds, Hypoactive, Soft and benign, Non- distended Musculoskeletal: No clubbing, No swelling, No contractures, No erythema Neurological: Other (Patient is lethargic; following commands) Assessment & Plan - Problems (Diagnosis) (1) Acute hypoxic on chronic hypercapnic respiratory failure Current Visit: Yes Status: Acute (2) History of home oxygen therapy Current Visit: No Status: Chronic (3) Hyperlipidemia Current Visit: No Status: Chronic Qualifiers: Hyperlipidemia type: mixed hyperlipidemia Qualified Code(s): E78.2 - Mixed hyperlipidemia (4) Hypertension Current Visit: No Status: Chronic Qualifiers: Hypertension type: primary hypertension Qualified Code(s): I10 - Essential (primary) hypertension (5) Morbid obesity due to excess calories Current Visit: No Status: Chronic (6) Type 2 diabetes mellitus Current Visit: No Status: Chronic Qualifiers: Diabetes mellitus long distance operator insulin use: with long distance operator use Diabetes mellitus complication status: without complication Qualified Code(s): E11.9 - Type 2 diabetes mellitus without complications; Z79.4 - custodial (current) use of insulin - Plan Continue with plan of care as mentioned below: 1. Patient with acute hypoxic and hypercapnic respiratory failure; status post- extubation day #2. Patient doing well. Starting physical therapy. Continue with nebs, steroids, antibiotics. Continue with pulmonary follow-up. Plan to see if patient will benefit from inpatient rehab versus home with home health. 2. History of hypertension and diabetes; continue with supportive care. Patient with morbid obesity and will risk reduction counselor regarding diet and exercise. Patient may benefit from GLP-1 agonist upon follow-up. 3. GI DVT prophylaxis Discharge Plan: Home Plan to discharge in: Greater than 2 days - Advance Directives Does patient have a Living Will: Yes Does patient have a Durable POA for Healthcare: Yes - Code Status/Comfort Care Code Status Assessed: Yes Code Status: Full Code Critical Care: Yes Time Spent Managing PTS Care (In Minutes): 70
[2023-11-01] MEDS: AMOX/K CLAV 875 MG TAB PO SCH (20:04)
[2023-11-02] MEDS: INSULIN REGULAR (HUMAN) 100 UNIT/ML SQ SCH ×5 (00:54→21:00)
[2023-11-02] MEDS: IPRATROPIUM BROM 0.5MG/2.5ML NEB SCH ×2 (03:00→07:52)
[2023-11-02] MEDS: METOPROLOL XL 50 MG TAB PO SCH ×2 (06:00→17:22)
[2023-11-02] MEDS: AZITHROMYCIN 250 MG TAB PO SCH (08:39)
[2023-11-02] MEDS: ENOXAPARIN 40 MG/0.4 ML SQ SCH (08:39)
[2023-11-02] MEDS: AMOX/K CLAV 875 MG TAB PO SCH ×2 (08:39→21:12)
[2023-11-02] MEDS: INSULIN GLARGINE 100 UNIT/ML SQ SCH (09:00)
[2023-11-02] MEDS ORDERED: REGADENOSON 0.4 MG/5 ML SYR IV ONE (09:11)
[2023-11-02] MEDS: NYSTATIN 500,000 UNIT/5 ML UDC PO SCH ×4 (12:21→21:12)
--- NOTE | 2023-11-02 12:27 | P.PN ---
Subjective Date of Service: 11/02/23 Chief Complaint: Respiratory failure Is doing well much more alert responsive communicating apparently complains of some sores in his mouth difficulty eating Review of Systems is unable to be obtained Physical Examination - Vital Signs Temperature: 98.0 F Blood Pressure: 124/61 Pulse: 105 Respirations: 40 Pulse Ox (%): 90 - Physical Exam General: Alert, In no apparent distress Respiratory: Clear to auscultation bilaterally Cardiovascular: No edema, Regular rate/rhythm, Normal S1 S2 Gastrointestinal: Normal bowel sounds, Soft and benign Assessment And Plan - Current Problems (Diagnosis) (1) Respiratory failure Current Visit: Yes Status: Acute Plan: Patient has improved significantly has home O2 Labs reviewed discharge planning tach stress test has been done today chest x-ray is clear no evidence of sepsis DC antibiotic Qualifiers: Chronicity: unspecified (2) Thrush Current Visit: Yes Status: Acute Plan: Patient complaining of a sore mouth and tongue likely he has oral thrush with some white plaques on his tongue we will start him on nystatin patient's blood sugars are still elevated increase insulin
--- NOTE | 2023-11-02 12:34 | RAD REPORT ---
EXAM DESCRIPTION: NM - Rest Stress Cardiac Imaging - 11/02/2023 9:43 am CLINICAL HISTORY: RO CAD recent resp arrest Chest pain. COMPARISON: No comparisons TECHNIQUE: The patient was administered approximately 10mCi of Tc 99m Sestamibi prior to resting SPE CT imaging of the heart. The patient was then administered approximately 30 mCi of Tc 99m Sestamibi f ollowing exercise or pharmacologic stress. Multiplanar SPECT images were reviewed. FINDINGS: Moderate sized area of mild stress-induced ischemia noted involving the lateral left ventr icular myocardium. No fixed defect is seen to suggest hibernating myocardium or scarred myocardium. The end diastolic volume is 61 ml, the end systolic volume is 26 ml, and the ejection fraction is 58 %. IMPRESSION: Moderate sized area of mild stress-induced ischemia involving the left ventricular myoca rdium lateral wall.
--- NOTE | 2023-11-02 12:42 | P.PN ---
Subjective Date of Service: 11/02/23 Chief Complaint: Respiratory failure Pt is resting comfortably in bed. He is using 3L BNC. Pt is working with PT for rehab placement. No other issues overnight. Review of Systems 10-point ROS is otherwise unremarkable General: Other (Morbidly obese), Unremarkable Eyes: Unremarkable ENT: Unremarkable Respiratory: Unremarkable Cardiovascular: Unremarkable Gastrointestinal: Unremarkable Genitourinary: Unremarkable Musculoskeletal: Unremarkable Integumentary: Unremarkable Neurological: Weakness Physical Examination - Vital Signs Temperature: 98.0 F Blood Pressure: 124/61 Pulse: 105 Respirations: 40 Pulse Ox (%): 90 - Physical Exam General: In no apparent distress, Oriented x3, Cooperative HEENT: Atraumatic, Normocephalic, PERRLA, Mucous membr. moist/pink Neck: Supple, 2+ carotid pulse no bruit, No LAD Respiratory: Clear to auscultation bilaterally, Normal air movement Cardiovascular: No edema, Normal pulses Capillary refill: <2 Seconds Gastrointestinal: Normal bowel sounds, Soft and benign, Non-distended Musculoskeletal: No clubbing, No swelling, No contractures Integumentary: No rashes, No breakdown, No erythema Neurological: Normal speech, Normal affect Lymphatics: No axilla or inguinal lymphadenopathy Assessment And Plan - Plan Acute hypoxic and hypercapnic respiratory failure: status post-extubation day #2. Patient doing well. Will continue physical therapy. Will continue 3L BNC, duonebs, steroids, antibiotics. Pulmonology is following. Will discharge pt to inpatient rehab. History of hypertension: Will continue home med. Diabetes: continue accuchek, SSI and ADA diet. GI ppx: protonix DVT prophylaxis: SCD Discharge Plan: Home Discharge Plan: Other (In[atient rehab) Plan to discharge in: 48 Hours - Code Status/Comfort Care Code Status Assessed: Yes Code Status: Full Code
[2023-11-02] MEDS: ENSURE MAX PROTEIN 330 ML LIQUID PO SCH (21:15)
[2023-11-03] MEDS: METOPROLOL XL 50 MG TAB PO SCH ×2 (05:21→18:59)
[2023-11-03] MEDS: INSULIN REGULAR (HUMAN) 100 UNIT/ML SQ SCH ×4 (07:30→21:25)
[2023-11-03] MEDS: ENOXAPARIN 40 MG/0.4 ML SQ SCH (07:41)
[2023-11-03 08:36] LABS: Absolute Lymphocytes (CBC) 2.3 K/uL (0.7-4.9); Hematocrit 40.1 % (39.6-49.0); Lymphocytes % 31.8 % (15.3-44.8); MCV 88.1 fL (80-100); MPV 7.4 fL (7.6-11.3); Platelets 193 thou/uL (152-406); RBC Red Blood Cell Count 4.55 M/uL (4.33-5.43)
[2023-11-03 08:50] LABS: Potassium 3.6 mEq/L (3.5-5.1)
[2023-11-03] MEDS: AMOX/K CLAV 875 MG TAB PO SCH ×2 (09:00→20:32)
[2023-11-03] MEDS: AZITHROMYCIN 250 MG TAB PO SCH (09:00)
[2023-11-03] MEDS: INSULIN GLARGINE 100 UNIT/ML SQ SCH (09:00)
[2023-11-03] MEDS: NYSTATIN 500,000 UNIT/5 ML UDC PO SCH ×4 (09:00→20:32)
[2023-11-03] MEDS: ENSURE MAX PROTEIN 330 ML LIQUID PO SCH ×2 (09:00→20:35)
--- NOTE | 2023-11-03 10:49 | P.PN ---
Subjective Date of Service: 11/03/23 Chief Complaint: Respiratory failure Pt is resting comfortably in bed. He is using 2.5L BNC. Cardiology scheduled NM stress test today due to elevated troponin. No other issues overnight. Review of Systems 10-point ROS is otherwise unremarkable Physical Examination - Vital Signs Temperature: 97.0 F Blood Pressure: 126/61 Pulse: 93 Respirations: 18 Pulse Ox (%): 90 - Physical Exam General: In no apparent distress, Oriented x3, Cooperative HEENT: Atraumatic, Normocephalic, PERRLA Neck: Supple, 2+ carotid pulse no bruit Respiratory: Clear to auscultation bilaterally, Normal air movement, Diminished Cardiovascular: No edema, Normal pulses Capillary refill: <2 Seconds Gastrointestinal: Normal bowel sounds, Hypoactive Musculoskeletal: No clubbing, No swelling Integumentary: No rashes, No breakdown Neurological: Normal gait, Normal speech, Sensation intact Assessment And Plan - Plan Acute hypoxic and hypercapnic respiratory failure: status post-extubation day #2. Patient doing well. Will continue physical therapy. Will continue 2.5L BNC, duonebs, steroids, antibiotics. Pulmonology is following. Will discharge pt to inpatient rehab. Elevated troponin: It trended down 58 <- 152. Pt denies any chest pain. Cardiology ordered NM stress test. History of hypertension: Will continue home med. Diabetes: continue accuchek, SSI and ADA diet. GI ppx: protonix DVT prophylaxis: SCD Discharge Plan: Home
--- NOTE | 2023-11-03 12:37 | TREADPHA ---
DX: RHYTHM CHANGE Date of Study: 11/02/2023 Ht: 5' 11 " Wt: 264 lb 12.8 oz Consulting Physician: TOAN MEDICATIONS: TYLENOL, AUGMENTIN, ZITHROMAX, DEXTROSE, LOVENOX, GLUCAGEN, SEMGLEE, NOVOLIN-R, ATROVENT, TOPROL XL, ZOFRAN HISTORY: 52 YEAR OLD MALE WITH COMPLAINTS OF CHEST PAIN. HISTORY OF HIGH CHOLESTEROL, DIABETES PHYSICIAL EXAMINATION: RESTING B.P.: 136/61 RESTING H.R.: 95 RESTING EKG: NORMAL SINUS RHYTHM, WITHIN NORMAL LIMITS PROTOCOL: PHARMACOLOGIC EXERCISE TIME: 3:30 B.P. AT [facility] STRESS: 118/53 IMPRESSION: LEXISCAN INJECTED. CARDIOLITE INJECTED - SEE NUCLEAR MEDICINE REPORT. NO SUPRAVENTRICULAR TACHYCARDIA, VENTRICULAR TACHYCARDIA, PREMATURE ATRIAL COMPLEXES NOTED. PREMATURE VENTRICULAR COMPLEX NOTED IN RECOVERY PHASE. PATIENT DENIES CHEST PAIN. CAFFEINE PROVIDED TO PATIENT. NO ELECTROCARDIOGRAM CHANGES OF ISCHEMIA WITH LEXISCAN.
[2023-11-03] MEDS ORDERED: HEPA 1000U/500MLS 2,000 UNIT/1,000 ML BAG IV ONE (13:33)
[2023-11-03] MEDS ORDERED: VERAPAMIL HCL 10 MG/4 ML VIAL IV ONE (13:33)
[2023-11-03] MEDS ORDERED: LIDOCAINE 1% 20 ML MDV ONE (13:33)
[2023-11-03] MEDS ORDERED: CLOPIDOGREL 75 MG TABLET ONE (13:34)
[2023-11-03] MEDS ORDERED: MIDAZOLAM HCL 2 MG/2 ML INJ ONE (13:34)
[2023-11-03] MEDS ORDERED: HEPARIN 10,000 UNIT/10 ML VIAL IV ONE (13:34)
[2023-11-03] MEDS ORDERED: TICAGRELOR 90 MG TABLET PO ONE (13:34)
[2023-11-03] MEDS ORDERED: FENTANYL CITR 100 MCG/2 ML ONE (13:34)
[2023-11-03] MEDS ORDERED: HEPARIN 5000 UNIT/ML 1 ML VIAL ONE (13:34)
[2023-11-03] MEDS ORDERED: ASPIRIN 325 MG TAB ONE (13:35)
[2023-11-03] MEDS ORDERED: ATROPINE SULF 1 MG/10 ML SYR IV ONE (13:36)
[2023-11-03] MEDS ORDERED: NA CHLORIDE 0.9% 500 ML ONE (14:06)
--- NOTE | 2023-11-03 15:23 | P.PN ---
Subjective Date of Service: 11/03/23 Chief Complaint: Respiratory failure, unstable angina, NSTEMI Subjective: Other (NPO post MN today for Cardiac cath 2nd to IMPRESSION: Moderate sized area of mild stress-induced ischemia involving the left ventricular myocardium lateral wall on stress test yesterday) Review of Systems 10-point ROS is otherwise unremarkable Respiratory: SOB with Excertion Cardiovascular: Paroxysmal Noc. Dyspnea, As per HPI Physical Examination - Vital Signs Temperature: 97.3 F Blood Pressure: 136/78 Pulse: 97 Respirations: 18 Pulse Ox (%): 93 - Physical Exam General: Alert, Oriented x3 HEENT: Atraumatic, Normocephalic, PERRLA Neck: Supple, 2+ carotid pulse no bruit Respiratory: Other (continued oxygen requirement) Cardiovascular: Normal pulses, Edema Capillary refill: <2 Seconds Gastrointestinal: Other (obese) Musculoskeletal: No contractures Neurological: Normal speech, Normal tone Lymphatics: No axilla or inguinal lymphadenopathy External genitalia: Deferred Rectal: Deferred Assessment And Plan - Plan To mechanical laboratory technician today for evaluation 2nd to IMPRESSION: Moderate sized area of mild stress-induced ischemia involving the left ventricular myocardium lateral wall. Will intervene prn. Continue medical management. Plan to discharge in: 48 Hours
--- NOTE | 2023-11-03 15:27 | P.CNS ---
Date of Consult: 10/27/23 Reason for Consult: NSTEMI, acute on chronic CHF with respiratory failure Requesting Physician: Nate Maradiaga Chief Complaint: Respiratory failure, unstable angina, NSTEMI History of Present Illness: Mr. Rand is a 52 yo morbidly obese patient who apparently rosalind from sleep and went to the bathroom where some time later he was discovered by his sleeping on the toilet. She awoke him and told him to come back to bed. He did not utilize his c-pap machine. When his awoke the length of time between respirations was such that she called EMS and he was brought to the emergency room. He was initially placed on Bi-pap but was becoming more hypercapneic despite this. Mr. Rand required intubation in the ED and then was admitted to ICU. Allergies No Known Allergies Allergy (Verified 01/08/21 02:35) Home medications list reviewed: Yes Home Medications: Atorvastatin Calcium 20 mg PO BEDTIME 02/22/22 Insulin Glargine,Hum.rec.anlog [Lantus] 50 units SQ BID 02/22/22 Pantoprazole [Protonix Tab*] 40 mg PO BID 02/22/22 Metoprolol Tartrate [Lopressor*] 50 mg PO BID #60 tab 02/23/22 Nebulizer Accessories [Aeroneb Go] 1 each MC DAILY #1 each 02/23/22 Nebulizer [Aeroneb Go Nebulizer] 1 each MC DAILY #1 each 02/23/22 Potassium Chloride 20 meq PO DAILY #30 tab.er.prt 02/23/22 Spironolactone [Aldactone*] 25 mg PO BID #60 tab 02/23/22 Insulin -Regular Human [Novolin -R*] 30 unit SQ BIDWM 10/27/23 Metformin HCl [Glucophage*] 1,000 mg PO BIDWM 10/27/23 - Past Medical/Surgical History Diabetic: Yes -: Type 2 Diabetes- Insulin Dependent -: Acid reflux -: Hypertension -: Hyperlipidemia -: Coronavirus pneumonia long hospitalization -: L pointer finger partial amputation Psychosocial/ Personal History: Patient lives at home with his . - Family History Mother Medical History: Hypertension, Diabetes Family History: Reviewed- Non-Contributory - Social History Smoking Status: Former smoker Alcohol use: No CD- Drugs: No Caffeine use: Yes Place of Residence: Home Review of Systems is unable to be obtained Respiratory: As per HPI Cardiovascular: As per HPI Physical Examination Temp Pulse Resp BP Pulse Ox 97.3 F 97 H 18 136/78 93 11/03/23 15:22 11/03/23 15:22 11/03/23 15:22 11/03/23 15:22 11/03/23 15:22 General: Comatose, Obese HEENT: Atraumatic, Normocephalic Neck: JVD distended Respiratory: Other (per ventilatory support) Cardiovascular: Edema, Gallops External genitalia: Deferred Rectal: Deferred - Problems (1) Acute hypoxic on chronic hypercapnic respiratory failure Current Visit: Yes Status: Acute Plan: Intubation per medical service, telemetry, trend troponins (2) Hyperlipidemia Current Visit: No Status: Chronic Plan: lipid panel and follow, continue statin Qualifiers: Hyperlipidemia type: mixed hyperlipidemia Qualified Code(s): E78.2 - Mixed hyperlipidemia (3) Hypertension Current Visit: No Status: Chronic Plan: IV blood pressure control Qualifiers: Hypertension type: primary hypertension Qualified Code(s): I10 - Essential (primary) hypertension (4) Acute on chronic congestive heart failure Current Visit: Yes Status: Acute Qualifiers: Heart failure type: combined systolic and diastolic Qualified Code(s): I50.43 - Acute on chronic combined systolic (congestive) and diastolic (congestive) heart failure Conclusions/Impression: Maximize medical management, trend WBC, Creatinine/BUN, BNP, troponin, electrolytes, Diurese aggressively, monitor blood pressure and telemetry, ECHO Critical Care: Yes
--- NOTE | 2023-11-03 18:29 | OP ---
Date of Procedure: 11/03/2023 Surgeon: LISET JOYA Procedures Performed: 1.Selective coronary angiogram. 2.Left heart catheterization. Indications: 1.Non-ST elevation myocardial infarction. 2.Abnormal stress test. Access: Right radial artery 6-Gibraltarian closed with TR band. Complications: None. Bleeding: Less than 20 mL. Description Of Procedure: After risks, benefits, and alternatives were explained, the patient agreed to the procedure and signed informed consent. The patient was brought into cardiac catheterization laboratory, prepped and draped in usual sterile fashion. Then, I accessed right radial artery using pediatric micropuncture kit, placed a 6-Gib[place]tarian slender sheath, took 5-Gibraltarian Gully 4.0 catheter into aortic root over a J-wire, engaged left main and took standard views and then in the RCA and took sta ndard views and a catheter was pushed over the wire into the LV, measured the LVEDP and pullback did not record any gradient. I removed the catheter and the sheath and placed TR band with good hemostas is. Findings: 1.Left main, large and normal. 2.LAD, large and normal with normal diagonal branches. 3.Left circumflex is normal. 4.RCA, large, normal, and dominant. 5.Normal LVEDP. Conclusions: 1.Normal coronary arteries. 2.Normal LVEDP. Recommendations: Medical management. /ADAL Voice ID: [id number] Report ID: [id number]
[2023-11-04 02:48] LABS: Absolute Lymphocytes (CBC) 2.3 K/uL (0.7-4.9); Hematocrit 38.6 % (39.6-49.0); Lymphocytes % 36.6 % (15.3-44.8); MCV 87.6 fL (80-100); MPV 7.1 fL (7.6-11.3); Platelets 150 thou/uL (152-406); RBC Red Blood Cell Count 4.41 M/uL (4.33-5.43)
[2023-11-04 04:54] LABS: Potassium 3.8 mEq/L (3.5-5.1)
[2023-11-04] MEDS: METOPROLOL XL 50 MG TAB PO SCH ×2 (06:17→17:54)
[2023-11-04] MEDS: INSULIN REGULAR (HUMAN) 100 UNIT/ML SQ SCH ×4 (07:30→21:44)
[2023-11-04] MEDS: NYSTATIN 500,000 UNIT/5 ML UDC PO SCH ×4 (09:00→21:42)
[2023-11-04] MEDS: POTASSIUM CL SA 10 MEQ TAB PO ONE ×2 (09:00→13:35)
[2023-11-04] MEDS: INSULIN GLARGINE 100 UNIT/ML SQ SCH ×2 (09:00→12:00)
[2023-11-04] MEDS: ENSURE MAX PROTEIN 330 ML LIQUID PO SCH ×2 (10:07→21:45)
[2023-11-04] MEDS: AMOX/K CLAV 875 MG TAB PO SCH (10:07)
[2023-11-04] MEDS: ENOXAPARIN 40 MG/0.4 ML SQ SCH (10:08)
[2023-11-04] MEDS: AZITHROMYCIN 250 MG TAB PO SCH (10:08)
[2023-11-04] MEDS ORDERED: POTASSIUM CL SA 10 MEQ TAB PO ONE (11:00)
--- NOTE | 2023-11-04 11:21 | P.PN ---
Subjective Date of Service: 11/04/23 Chief Complaint: Respiratory failure, unstable angina, NSTEMI Pt is resting comfortably in bed. He is using 2.5L BNC. Cardiology did Cardiac cath yesterday and it showed normal coronary arteries. Will continue medical therapy. No other issues overnight. Review of Systems General: Unremarkable Eyes: Unremarkable ENT: Unremarkable Respiratory: Unremarkable Cardiovascular: Unremarkable Gastrointestinal: Unremarkable Genitourinary: Unremarkable Musculoskeletal: Unremarkable Integumentary: Unremarkable Neurological: Unremarkable Lymphatics: Unremarkable Physical Examination - Vital Signs Temperature: 96.9 F Blood Pressure: 117/63 Pulse: 93 Respirations: 20 Pulse Ox (%): 94 - Physical Exam General: Alert, In no apparent distress, Oriented x3, Obese HEENT: Atraumatic, Normocephalic, PERRLA Neck: Supple, 2+ carotid pulse no bruit Respiratory: Clear to auscultation bilaterally, Normal air movement Cardiovascular: No edema, Normal pulses, Regular rate/rhythm, Normal S1 S2 Capillary refill: <2 Seconds Gastrointestinal: Normal bowel sounds, Soft and benign, Non-distended Musculoskeletal: No clubbing, No swelling Integumentary: No rashes, No breakdown Neurological: Normal gait, Normal speech, Normal strength at 5/5 x4 extr, Sensation intact Lymphatics: No axilla or inguinal lymphadenopathy Assessment And Plan - Plan Acute hypoxic and hypercapnic respiratory failure: status post-extubation day #2. Patient doing well. Will continue physical therapy. Will continue 2.5L BNC, duonebs, steroids, antibiotics. Pulmonology is following. Will discharge pt to inpatient rehab. Elevated troponin: It trended down 58 <- 152. Pt denies any chest pain. Cardiology did cardiac cath which showed normal coronary arteries. Will continue medical therapy. History of hypertension: Will continue home med. Diabetes: continue accuchek, SSI and ADA diet. GI ppx: protonix DVT prophylaxis: SCD Discharge Plan: Home
--- NOTE | 2023-11-04 13:03 | P.PN ---
Subjective Date of Service: 11/04/23 Chief Complaint: Respiratory failure, unstable angina, NSTEMI Subjective: Improving, Doing well Review of Systems 10-point ROS is otherwise unremarkable Respiratory: As per HPI Cardiovascular: As per HPI Physical Examination - Vital Signs Temperature: 96.9 F Blood Pressure: 117/63 Pulse: 93 Respirations: 20 Pulse Ox (%): 94 - Physical Exam General: Alert, In no apparent distress, Oriented x3 HEENT: Atraumatic, Normocephalic Neck: Supple, 2+ carotid pulse no bruit, Other (mild sore throat s/p intubation) Respiratory: Clear to auscultation bilaterally, Normal air movement Cardiovascular: No edema, Normal pulses, Regular rate/rhythm, Normal S1 S2 Capillary refill: <2 Seconds Gastrointestinal: Normal bowel sounds, Soft and benign, Other (obese) Musculoskeletal: No clubbing, No swelling Integumentary: No rashes Neurological: Normal speech, Normal tone Lymphatics: No axilla or inguinal lymphadenopathy External genitalia: Deferred Rectal: Deferred Assessment And Plan - Current Problems (Diagnosis) (1) Acute hypoxic on chronic hypercapnic respiratory failure Current Visit: Yes Status: Acute Plan: Pt is extubated, denies SOB, need compliance with C-pap at home for sleep apnea, weight loss (2) Hyperlipidemia Current Visit: No Status: Chronic Plan: continue statins Qualifiers: Hyperlipidemia type: mixed hyperlipidemia Qualified Code(s): E78.2 - Mixed hyperlipidemia (3) Hypertension Current Visit: No Status: Chronic Plan: IV blood pressure control, resume po medications s/p cath Qualifiers: Hypertension type: primary hypertension Qualified Code(s): I10 - Essential (primary) hypertension (4) Acute on chronic congestive heart failure Current Visit: Yes Status: Acute Qualifiers: Heart failure type: combined systolic and diastolic Qualified Code(s): I50.43 - Acute on chronic combined systolic (congestive) and diastolic (congestive) heart failure - Plan Cardiac cath yesterday normal. Resume home medications, dietary changes, c-pap, Cardiology will sign off admission. Discharge Plan: Home Plan to discharge in: 24 Hours - Code Status/Comfort Care Code Status Assessed: Yes (Full) Physician Review: Patient Assessed, Agree with Above Assessment and Plan
[2023-11-05 02:26] LABS: Absolute Lymphocytes (CBC) 2.4 K/uL (0.7-4.9); Hematocrit 37.1 % (39.6-49.0); Lymphocytes % 39.1 % (15.3-44.8); MCV 87.8 fL (80-100); MPV 8.3 fL (7.6-11.3); Platelets 183 thou/uL (152-406); RBC Red Blood Cell Count 4.22 M/uL (4.33-5.43)
[2023-11-05 03:03] LABS: Potassium 3.4 mEq/L (3.5-5.1)
[2023-11-05] MEDS: METOPROLOL XL 50 MG TAB PO SCH (05:34)
[2023-11-05] MEDS: INSULIN REGULAR (HUMAN) 100 UNIT/ML SQ SCH ×2 (07:30→11:30)
[2023-11-05 08:23] VITALS: BMI 36.8
[2023-11-05] MEDS: ENSURE MAX PROTEIN 330 ML LIQUID PO SCH (09:00)
[2023-11-05] MEDS: INSULIN GLARGINE 100 UNIT/ML SQ SCH (09:00)
[2023-11-05] MEDS: POTASSIUM CL SA 10 MEQ TAB PO SCH ×2 (10:29→14:21)
[2023-11-05] MEDS: ENOXAPARIN 40 MG/0.4 ML SQ SCH (10:30)
[2023-11-05] MEDS: NYSTATIN 500,000 UNIT/5 ML UDC PO SCH (10:31)
--- NOTE | 2023-11-05 10:55 | P.PN ---
Subjective Date of Service: 11/05/23 Chief Complaint: Respiratory failure, unstable angina, NSTEMI Pt is resting comfortably in bed. He is using 2.5L BNC. Cardiology did Cardiac cath yesterday and it showed normal coronary arteries. Will continue medical therapy. Waiting for OT eval in order to decide rehab placement or outpt PT. No other issues overnight. Review of Systems General: Unremarkable Eyes: Unremarkable ENT: Unremarkable Respiratory: Unremarkable Cardiovascular: Unremarkable Gastrointestinal: Unremarkable Genitourinary: Unremarkable Musculoskeletal: Unremarkable Integumentary: Unremarkable Neurological: Unremarkable Lymphatics: Unremarkable Physical Examination - Vital Signs Temperature: 96.0 F Blood Pressure: 116/57 Pulse: 94 Respirations: 16 Pulse Ox (%): 92 - Physical Exam General: Alert, In no apparent distress, Oriented x3, Cooperative, Obese HEENT: Atraumatic, Normocephalic, PERRLA Neck: Supple, 2+ carotid pulse no bruit Respiratory: Clear to auscultation bilaterally, Normal air movement Cardiovascular: No edema, Normal pulses, Regular rate/rhythm Capillary refill: <2 Seconds Gastrointestinal: Normal bowel sounds, Soft and benign, Non-distended Musculoskeletal: No clubbing, No swelling Integumentary: No rashes, No breakdown Neurological: Normal gait, Normal speech, Normal strength at 5/5 x4 extr Lymphatics: No axilla or inguinal lymphadenopathy Assessment And Plan - Plan Acute hypoxic and hypercapnic respiratory failure: status post-extubation day #2. Patient doing well. Will continue physical therapy. Will continue 2.5L BNC, duonebs, steroids, antibiotics. Pulmonology is following. Will discharge pt to inpatient rehab. Elevated troponin: It trended down 58 <- 152. Pt denies any chest pain. Cardiology did cardiac cath which showed normal coronary arteries. Will continue medical therapy. History of hypertension: Will continue home med. Diabetes: continue accuchek, SSI and ADA diet. GI ppx: protonix DVT prophylaxis: SCD Discharge Plan: Waiting for OT eval in order to decide on rehab placement vs outpt PT. Physician Review: Patient Assessed, Agree with Above Assessment and Plan
[2023-11-05 11:50] VITALS: BP 121/56; TEMP 96.7
--- NOTE | 2023-11-05 12:16 | P.DS ---
Admission Date: 10/27/23 Discharge Date: 11/05/23 Disposition: ROUTINE DISCHARGE Discharge Condition: GOOD Reason for Admission: Respiratory failure, unstable angina, NSTEMI Brief History of Present Illness: Patient is a 52yo who was admitted to the hospital with respiratory failure. Patient was brought into the hospital with altered mental status. Patient was hypercapneic and had to be intubated. Patient is morbidly obese and patient has apparently been doing well until this evening. The states he woke up to go to the bathroom and she found him breathing funny on the toilet. She asked him to get up and come to bed which she did. She does not think he put on his BiPAP that night. When she woke up he was apneic for an extended period of time so she called EMS. Patient was brought into the emergency room for further care. Patient was placed on BiPAP; however, patient's CO2 even on BiPAP was going up. Patient required intubation. Patient will be admitted to the intensive care unit for further care. Hospital Course: Patient is a 52yo who was admitted to the hospital with respiratory failure and AMS. On admission, pt was hypercapneic and he was intubated to protect the airway. Lab studies showed elevated troponin. He was later extubated 2 days later. We continued BIPAP and weaned him down to BNC and currently on room air. Cardiology did Cardiac cath which showed normal coronary arteries. Pt was advised to continue medical therapy. He worked well with PT and he was cleared to continue physical therapy on outpt. Pt was also advised to lose weight. he was in NAD prior to discharge. Vital Signs/Physical Exam: Temp Pulse Resp BP Pulse Ox 96.7 F L 90 16 121/56 L 93 11/05/23 11:48 11/05/23 11:48 11/05/23 11:48 11/05/23 11:48 11/05/23 11:48 Laboratory Data at Discharge: WBC 6.10 thou/uL (4.3-10.9) 11/05/23 01:35 Hgb 12.2 g/dL (13.6-17.9) L 11/05/23 01:35 Hct 37.1 % (39.6-49.0) L 11/05/23 01:35 Plt Count 183 thou/uL (152-406) 11/05/23 01:35 PT 13.1 SECONDS (9.5-12.5) H 10/27/23 04:25 INR 1.19 10/27/23 04:25 APTT 35.6 SECONDS (24.3-36.9) 10/27/23 16:35 Sodium 134 mEq/L (136-145) L 11/05/23 01:35 Potassium 3.4 mEq/L (3.5-5.1) L 11/05/23 01:35 BUN 9 mg/dL (7-18) 11/05/23 01:35 Creatinine 0.87 mg/dL (0.70-1.30) 11/05/23 01:35 Glucose 220 mg/dL (74-106) H 11/05/23 01:35 Phosphorus 3.2 mg/dL (2.5-4.9) 11/01/23 06:00 Magnesium 2.2 mg/dL (1.6-2.4) 11/01/23 06:00 Total Bilirubin 0.4 mg/dL (0.2-1.0) 10/30/23 04:46 AST 17 U/L (15-37) 10/30/23 04:46 ALT 82 U/L (16-61) H 10/30/23 04:46 Alkaline Phosphatase 56 U/L (45-117) 10/30/23 04:46 Lipase 22 U/L (13-75) 10/27/23 04:25 Home Medications: Atorvastatin Calcium 20 mg PO BEDTIME 02/22/22 Insulin Glargine,Hum.rec.anlog [Lantus] 50 units SQ BID 02/22/22 Pantoprazole [Protonix Tab*] 40 mg PO BID 02/22/22 Metoprolol Tartrate [Lopressor*] 50 mg PO BID #60 tab 02/23/22 Nebulizer Accessories [Aeroneb Go] 1 each MC DAILY #1 each 02/23/22 Nebulizer [Aeroneb Go Nebulizer] 1 each MC DAILY #1 each 02/23/22 Potassium Chloride 20 meq PO DAILY #30 tab.er.prt 02/23/22 Spironolactone [Aldactone*] 25 mg PO BID #60 tab 02/23/22 Insulin -Regular Human [Novolin -R*] 30 unit SQ BIDWM 10/27/23 Metformin HCl [Glucophage*] 1,000 mg PO BIDWM 10/27/23 Physician Discharge Instructions: Continue ad yuly activity as tolerated. Take home meds as prescribed. Follow up with PCP within 1 week Followup: NONE,NONE [Primary Care Provider] -
[2023-11-05] MEDS ORDERED: ACETAMINOPHEN 500 MG TAB PO PRN (12:20)
[2023-11-05] MEDS ORDERED: ONDANSETRON 4 MG/2 ML VIAL IV PRN (12:21)
[2023-11-05] MEDS ORDERED: D10W 250 ML BAG IV PRN (12:22)
[2023-11-05] MEDS ORDERED: NA CHLORIDE 0.9% 250 ML IV PRN (12:22)
[2023-11-05] MEDS ORDERED: GLUCAGON 1 MG/VIAL IM PRN (12:22)
[2023-11-05] MEDS ORDERED: D10W 125 ML IV PRN (12:22)
[2023-11-05] MEDS ORDERED: NYSTATIN 500,000 UNIT/5 ML UDC PO SCH (13:00)
[2023-11-05] MEDS ORDERED: INSULIN REGULAR (HUMAN) 100 UNIT/ML SQ SCH (16:30)
[2023-11-05 17:51] VITALS: O2SAT 95
[2023-11-05] MEDS ORDERED: METOPROLOL XL 50 MG TAB PO SCH (18:00)
[2023-11-06] MEDS ORDERED: ENOXAPARIN 40 MG/0.4 ML SQ SCH (09:00)
[2023-11-06] MEDS ORDERED: INSULIN GLARGINE 100 UNIT/ML SQ SCH (09:00)
== END 2023-11-05 15:00 | disposition home or self-care (01) | DRG 871 ==
LOC: ER 04:00 → ERHOLD 08:44 → 3RD-ICU 17:08 → 2ND 11-01 18:36
PROVIDERS: ADMIT Hospitalist; ATTEND Hospitalist
PROC: 5A09357 Assistance with Respiratory Ventilation, Less than 24 Consecutive Hours, Continuous Positive Airway Pressure (ICD-10-PCS; principal; 2023-10-27)
PROC: 5A1945Z Respiratory Ventilation, 24-96 Consecutive Hours (ICD-10-PCS; 2023-10-27)
PROC: 0BH17EZ Insertion of Endotracheal Airway into Trachea, Via Natural or Artificial Opening (ICD-10-PCS; 2023-10-27)
PROC: 02HV33Z Insertion of Infusion Device into Superior Vena Cava, Percutaneous Approach (ICD-10-PCS; 2023-10-27)
PROC: 0T9B70Z Drainage of Bladder with Drainage Device, Via Natural or Artificial Opening (ICD-10-PCS; 2023-10-27)
PROC: 3E043XZ Introduction of Vasopressor into Central Vein, Percutaneous Approach (ICD-10-PCS; 2023-10-27)
PROC: 4A023N7 Measurement of Cardiac Sampling and Pressure, Left Heart, Percutaneous Approach (ICD-10-PCS; 2023-11-02)
PROC: B2111ZZ Fluoroscopy of Multiple Coronary Arteries using Low Osmolar Contrast (ICD-10-PCS; 2023-11-02)
DX: A41.9 Sepsis, unspecified organism (principal); I21.4 Non-ST elevation (NSTEMI) myocardial infarction; J96.21 Acute and chronic respiratory failure with hypoxia; R65.21 Severe sepsis with septic shock; J96.22 Acute and chronic respiratory failure with hypercapnia; K72.00 Acute and subacute hepatic failure without coma; I50.43 Acute on chronic combined systolic (congestive) and diastolic (congestive) heart failure; N17.9 Acute kidney failure, unspecified; E87.29 Other acidosis; E87.1 Hypo-osmolality and hyponatremia; B37.0 Candidal stomatitis; I11.0 Hypertensive heart disease with heart failure; E11.9 Type 2 diabetes mellitus without complications; Z79.4 Long term (current) use of insulin; Z99.81 Dependence on supplemental oxygen; E78.5 Hyperlipidemia, unspecified; E66.01 Morbid (severe) obesity due to excess calories; Z68.36 Body mass index [BMI] 36.0-36.9, adult; K21.9 Gastro-esophageal reflux disease without esophagitis; E87.6 Hypokalemia
CPT/HCPCS: 0240U; 31500; 36415; 36600; 51702; 70450; 71045; 76937; 78452; 80048; 80053; 80076; 81001; 82550; 82805; 82947; 83690; 83735; 83880; 84100; 84132; 84439; 84443; 84484; 85025; 85610; 85730; 87040; 93005; 93017; 93306; 93458; 94002; 94003; 94010; 94640; 94660; 94760; 97116; 97161; 97165; 97530; 99152; 99153; 99291; 99292; A9500; C1893; J0461; J0696; J1630; J1644; J1650; J1815; J1940; J2001; J2185; J2250; J2405; J2543; J2785; J2920; J2930; J3010; J3480; J7030; J7040; J7050; J7613; J7614; J7644; J7799; Q9966

== ENCOUNTER 2023-11-10 00:01 | Emergency (ER) | payer OTHER ==
--- OUTSIDE RECORDS SUMMARY | 2023-11-10 00:12 | XMS REPORT | Continuity of Care Document ---
Author Name Unknown Address [address] [facility] [address] [place] [address] [facility] thconnect Address [address] 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 Role Phone ANSLEY GARIBAY Primary Care Physician Unav WENDY Murrieta Attending Clinician Unavailable JOHN SEQUEIRA Attending Clinician Unav ailable LYUBOV FERNÁNDEZ Attending Clinician Unavailable MD LUIS ARMANDO Attending Clinician UnavailROHINI Cunningham Attending Clinician Unavailable MARCELLE ZHU Attending Clinician Unavailable [facility] Attending Clinicia n Unavailable RADHA GAMINO Attending Clinician Unavailable [facility] Attending Clinician Unavailable AKBAR JEREZ Attending Clinician Unavailable Florence Botello RN Attending Clinician [phone] CHOLO LOVE Attending Clinician Unavailable Murali Zafar MD Attending Clinician [phone] Dawna Kaur MD Attending Clinician [phone] Cholo Love MD Attending Clinician Horace MICHEL, Nata Rae Attending Clinician JON Mascorro Attending Clinician Unavailable Gerson Palomino DO Attending Clinician [phone] Jon Francisco MD Attending Clinician [phone] Lukasz Saul Attending Clinician Unavailable JAXON SUTTON Attending Clinician Unavailable JAI GONZALEZ Attending Clinician Unavailable Sachin Mcallister DO Attending Clinician [phone] Jai Gonzalez MD Attending Clinician [phone] Sang Rey Attending Clinician Unavailable SACHIN MCALLISTER Attending Clinician Unavailable Annette Lemus Attending Clinician [phone] GERSON RUBIN Attending Clinician Unavailkaela Cervantes MD, Dustin Asher Attending Clinician Gerson Rubin MD Attending Clinician [phone] Doctor Unassigned, [place] Attending Clinician U Marlene Snyder Attending Clinician [phone] CHOLO LOVE Admitting Clinician Unavailable Cholo Love MD Admitting Clinician [phone] GERSON PALOMINO Admitting Clinician Unavailable Sang Rey Admitting Clinician Unavailable SACHIN MCALLISTER Admitting Clinician Unavailable Sachin Mcallister DO Admitting Clinician [phone] Physician, No Primary or Family Admitting Clinic bill Unavailable Payers Payer Name Policy Type Policy Number Effective Date Expirati on Date Source LIZBETH QUIROS [employer]: O [employer]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 9 [id number] 2023 00:00:00 Problems Condition Name Condition Details Condition Category Status Onset Date Resolution Date Last Treatment Date Treating Clinician Comments Source 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 Disease Active 04-13 00:00: 00 Maisha constantino Congestive heart failure, unspecifie d HF chronicity , unspecifie d heart failure type Congestive heart failure, unspecifie d HF chronicity , unspecifie d heart failure type Disease Active 04-08 00:00: 00 Maisha constantino Paroxysmal atrial fibrillati on Paroxysmal atrial fibrillati on Disease Active 04-08 00:00: 00 Maisha constantino Chronic respirator y failure Chronic respirator y failure Disease Active 04-08 00:00: 00 Maisha constantino 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 Disease Active 04-08 00:00: 00 Maisha constantino 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 associated with diabetes mellitus due to underlying condition 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 associated with diabetes mellitus due to underlying condition Disease Active 04-08 00:00: 00 Maisha constantino Type 2 diabetes mellitus without complicati on, with long-term current use of insulin Type 2 diabetes mellitus without complicati on, with long-term current use of insulin Disease Active 04-02 00:00: 00 Maisha constantino Vomiting, unspecifie d vomiting type, unspecifie d whether nausea present Vomiting, unspecifie d vomiting type, unspecifie d whether nausea present Disease Active 2021-11 00:00: 00 [facility] Intractabl e vomiting Intractabl e vomiting Disease Active 2021-11 00:00: 00 [facility] Tinea pedis Tinea pedis Disease Active 2021-11 00:00: 00 [facility] Chronic respirator y failure with hypoxia Chronic respirator y failure with hypoxia Disease Active 2021-11 00:00: 00 [facility] Type 2 diabetes mellitus without complicati on, without long-term current use of insulin Type 2 diabetes mellitus without complicati on, without long-term current use of insulin Disease Active 2021-11 00:00: 00 [facility] PAF (paroxysma l atrial fibrillati on) PAF (paroxysma l atrial fibrillati on) Disease Active 2021-11 0 00:00: 00 [facility] CHAPARRO (obstructi ve sleep apnea) CHAPARRO (obstructi ve sleep apnea) Disease Active 2021-11 006 00:00: 00 [facility] Chest pain, unspecifie d type Chest pain, unspecifie d type Disease Active 2021-11 0 00:00: 00 [facility] Morbid obesity with body mass index of 40.0-49.9 Morbid obesity with body mass index of 40.0-49.9 Disease Active 2021-11 0 00:00: 00 [facility] Elevated LFTs Elevated LFTs Disease Active 2021-11 0 00:00: 00 [facility] Diabetic ketoacidos is without coma associated with type 2 diabetes mellitus Diabetic ketoacidos is without coma associated with type 2 diabetes mellitus Disease Active 04-21 00:00: 00 [facility] Obesity (BMI 30-39.9) Obesity (BMI 30-39.9) Disease Active 04-21 00:00: 00 [facility] No known active problems No known active problems Disease [facility] Allergies, Adverse Reactions, Alerts Allergy Name Allergy Type Status Severity Reaction(s) Onset Date Inactive Date Treating Clinician Comments Source EMPAGLIF LOZIN DRUG INGREDI Active Other-Cmnt 2021-11 00:00: 00 [facility] Empaglif lozin Propensi ty to adverse reaction s to drug Active Other - See comments 2021-11 00:00: 00 DKA [facility] Empaglif lozin Propensi ty to adverse reaction s Active Other 2021-11 00:00: 00 JEF Moy - Externa l No Known Allergie s DA Active U 2021-11 024 00:00: 00 [facility] NO KNOWN ALLERGIE S Drug Class Active [facility] Social History Social Habit Start Date Stop Date Quantity Comments Source Gender identity Maeve Moy - External Sexual orientation K georges Moy - External History of tobacco use Passive smoker [facility] Alcohol intake 2023-04-17 00:00:00 2023-04-17 00:00:00 Ex-drinker (finding) Maisha Moy - External History of Social function 2023-04-02 00:00:00 2023-04-02 00:00:00 Maisha Moy - External Tobacco use and exposure 2023-04-02 00:00:00 2023-04-02 00:00:00 Smokeless tobacco non-user Maisha Moy - External Exposure to SARS-CoV-2 (event) 2022-11-02 00:00:00 2022-11-12 00:35:00 Not sure [facility] Sex Assigned At 1970 00:00:00 1970 00:00:00 Maisha Moy - External Smoking Status Start Date Stop Date Source Never smoked tobacco Maisha Manning External Ex-smoker 2022-09-03 00:00:00 2022-09-03 00:00:00 U [facility] Medications Ordered Medication Name Filled Medication Name Start Date Stop Date Current Medication? Ordering Clinician Indication Dosage Frequency Signature (SIG) Comments Components Source Aspirin 81 MG oral Chewable Tablet 04-17 08:32: 54 Yes 81mg Take 1 tablet (81 mg total) by mouth daily Maisha constantino OZEMPIC (0.25 or 0.5 mg/dose) 2 mg/3 mL SQ Solution Pen-Injecto r 04-17 00:00: 00 Yes [id number] 3 .25mg Inject 0.25 mg into the skin once a week If tolerated after 4 weeks, increase to 0.5mg weekly Maihsa constantino Metformin HCl 1000 MG oral Tablet 04-17 00:00: 00 Yes [id number] 3 1000mg Take 1 tablet (1,000 mg total) by mouth in the morning and 1 tablet (1,000 mg total) in the evening. Take with meals. Maisha constantino Atorvastati n Calcium 40 MG oral Tablet 04-17 00:00: 00 Yes [id number] 3 40mg Take 1 tablet (40 mg total) by mouth daily Maisha constantino Insulin Aspart (NovoLOG FlexPen) 100 UNIT/ML subcutaneou s Solution Pen-injecto r 04-17 00:00: 00 Yes [id number] 3 Use as directed three times daily, inject 24 units TID plus sliding scale. Max daily dose 80 units Maisha constantino Insulin Detemir (Levemir FlexPen) 100 UNIT/ML subcutaneou s Solution Pen-injecto r 04-17 00:00: 00 Yes [id number] 3 Inject 35 units twice daily Maisha constantino Insulin Pen Needle 31G X 5 MM does not apply Misc 04-17 00:00: 00 Yes [id number] 3 Inject insulin 5 times daily Maisha constantino Insulin Detemir (Levemir) 100 UNIT/ML subcutaneou s Solution 04-17 00:00: 00 04-17 00:00 :00 No [id number] 3 Inject 35 units twice dominguez Maisha constantino Insulin Pen Needle 31G X 5 MM does not apply Misc 04-17 00:00: 00 04-17 00:00 :00 No [id number] 3 Inject insulin 5 times daily Maisha constantino Budesonide, Inhalation, 0.5 MG/2ML inhalation Suspension 04-14 00:00: 00 Yes [id number] .5mg Take 2 mL (0.5 mg total) by nebulizati on 2 times daily Maisha constantino OZEMPIC (0.25 or 0.5 mg/dose) 2 mg/3 mL SQ Solution Pen-Injecto r 04-13 00:00: 00 04-17 00:00 :00 No [id number] 3 .25mg Inject 0.25 mg into the skin once a week Maisha constantino Spironolact one 25 MG oral Tablet 04-08 08:56: 21 04-08 00:00 :00 No 25mg Take 1 tablet (25 mg total) by mouth 2 times daily Maisha constantino Aspirin 81 MG oral Chewable Tablet 04-08 08:09: 56 Yes 81mg Take 1 tablet (81 mg total) by mouth daily Maisha constantino Albuterol Sulfate 1.25 MG/3ML inhalation Inhalant Solution 04-08 00:00: 00 Yes [id number] 1.25mg Q.25D Take 3 mL (1.25 mg total) by nebulizati on every 6 hours as needed for wheezing Maisha constantino Amoxicillin -Pot Clavulanate 875-125 MG oral Tablet 04-08 00:00: 00 Yes [id number] 1{tbl} Take 1 tablet by mouth 2 times daily Maisha constantino Budesonide, Inhalation, 0.5 MG/2ML inhalation Suspension 04-08 00:00: 00 Yes [id number] .5mg Take 2 mL (0.5 mg total) by nebulizati on 2 times daily Maisha constantino Insulin Aspart Prot & Aspart (NovoLOG 70/30 FlexPen ReliOn) (70-30) 100 UNIT/ML subcutaneou s Suspension Pen-injecto r 04-08 00:00: 00 Yes Inject per sliding scale Maisha constantino Insulin Glargine (Lantus SoloStar) 100 UNIT/ML subcutaneou s Solution Pen-injecto r 04-08 00:00: 00 Yes inject 30 units daily Maisha constantino Furosemide (Lasix) 20 MG oral Tablet 04-08 00:00: 00 Yes [id number] 20mg Take 1 tablet (20 mg total) by mouth daily Maisha constantino Metoprolol Succinate 25 MG oral Capsule ER 24 Hour Sprinkle 04-08 00:00: 00 Yes [id number] 25mg Take 25 mg by mouth daily Maisha constantino Lisinopril 5 MG oral Tablet 04-08 00:00: 00 Yes [id number] 5mg Take 1 tablet (5 mg total) by mouth daily Maisha constantino Potassium Chloride Lanie ER 20 MEQ oral Tab CR tablet 04-08 00:00: 00 Yes [id number] 20meq Take 1 tablet (20 mEq total) by mouth daily Maisha constantino Albuterol Sulfate 1.25 MG/3ML inhalation Inhalant Solution 04-08 00:00: 00 Yes [id number] 1.25mg Q.25D Take 3 mL (1.25 mg total) by nebulizati on every 6 hours as needed for wheezing Maisha constantino Amoxicillin -Pot Clavulanate 875-125 MG oral Tablet 04-08 00:00: 00 Yes [id number] 1{tbl} Take 1 tablet by mouth 2 times daily Maisha constantino Furosemide (Lasix) 20 MG oral Tablet 04-08 00:00: 00 Yes [id number] 20mg Take 1 tablet (20 mg total) by mouth daily Maisha constantino Metoprolol Succinate 25 MG oral Capsule ER 24 Hour Sprinkle 04-08 00:00: 00 Yes [id number] 25mg Take 25 mg by mouth daily Maisha constantino Lisinopril 5 MG oral Tablet 04-08 00:00: 00 Yes [id number] 5mg Take 1 tablet (5 mg total) by mouth daily Maisha constantino Potassium Chloride Lanie ER 20 MEQ oral Tab CR tablet 04-08 00:00: 00 Yes [id number] 20meq Take 1 tablet (20 mEq total) by mouth daily Maisha constantino Metoprolol Succinate 25 MG oral TABLET SR 24 HR 04-08 00:00: 00 Yes 25mg Take 1 tablet (25 mg total) by mouth daily Maisha constantino Insulin Detemir (Levemir) 100 UNIT/ML subcutaneou s Solution 04-08 00:00: 00 04-17 00:00 :00 No [id number] 3 Inject 30 units daily. Increase dosage by 2 units every 2 days until fasting glucose less than 140 or better. Max daily dose of 60 units Maisha constantino Insulin Aspart (NovoLOG FlexPen) 100 UNIT/ML subcutaneou s Solution Pen-injecto r 04-08 00:00: 00 04-17 00:00 :00 No [id number] 3 Use as directed three times daily, inject 10 units TID plus sliding scale. Max daily dose 60 units Maisha constantino predniSONE (DELTASONE) 10 MG oral tablet 04-08 00:00: 00 04-14 04:59 :00 No [id number] 40mg Take 4 tablets (40 mg total) by mouth daily for 5 days Maisha constantino Spironolact one 25 MG oral Tablet 04-02 08:43: 22 Yes 25mg Take 1 tablet (25 mg total) by mouth 2 times daily Maisha constantino Aspirin 81 MG oral Chewable Tablet 04-02 08:43: 22 Yes 81mg Take 1 tablet (81 mg total) by mouth daily Maisha constantino NovoLOG FlexPen 100 UNIT/ML subcutaneou s Solution Pen-injecto r 03-04 00:00: 00 Yes INJECT 15 UNITS SUBCUTANEO USLY THREE TIMES DAILY Maisha constantino NovoLOG FlexPen 100 UNIT/ML subcutaneou s Solution Pen-injecto r 03-04 00:00: 00 Yes INJECT 15 UNITS SUBCUTANEO USLY THREE TIMES DAILY Maisha constantino Pantoprazol e Sodium 40 MG oral Tablet Delayed Response 03-03 00:00: 00 Yes 40mg Take 1 tablet (40 mg total) by mouth daily Maisha constantino Pantoprazol e Sodium 40 MG oral Tablet Delayed Response 03-03 00:00: 00 Yes 40mg Take 1 tablet (40 mg total) by mouth daily Maisha constantino Pantoprazol e Sodium 40 MG oral Tablet Delayed Response 03-03 00:00: 00 Yes 40mg Take 1 tablet (40 mg total) by mouth daily Maisha constantino [place] Ethyl Esters 1 g oral Capsule 01-29 00:00: 00 Yes 1g Take 1 capsule (1 g total) by mouth 2 times daily Maisha constantino Famotidine 40 MG oral Tablet 01-29 00:00: 00 Yes 40mg Take 1 tablet (40 mg total) by mouth daily Maisha constantino Metoprolol Tartrate (LOPRESSOR) 50 MG oral Tablet 01-29 00:00: 00 Yes 50mg Take 1 tablet (50 mg total) by mouth 2 times daily Maisha constantino [place] Ethyl Esters 1 g oral Capsule 01-29 00:00: 00 Yes 1g Take 1 capsule (1 g total) by mouth 2 times daily Maisha constantino Atorvastati n Calcium 40 MG oral Tablet 01-29 00:00: 00 Yes 40mg Take 1 tablet (40 mg total) by mouth daily Maisha constantino Famotidine 40 MG oral Tablet 01-29 00:00: 00 Yes 40mg Take 1 tablet (40 mg total) by mouth daily Maisha constantino [place] Ethyl Esters 1 g oral Capsule 01-29 00:00: 00 Yes 1g Take 1 capsule (1 g total) by mouth 2 times daily Maisha constantino Atorvastati n Calcium 40 MG oral Tablet 01-29 00:00: 00 Yes 40mg Take 1 tablet (40 mg total) by mouth daily Maisha constantino Famotidine 40 MG oral Tablet 01-29 00:00: 00 Yes 40mg Take 1 tablet (40 mg total) by mouth daily Maisha constantino Atorvastati n Calcium 40 MG oral Tablet 01-29 00:00: 00 04-17 00:00 :00 No 40mg Take 1 tablet (40 mg total) by mouth daily Maisha constantino Metoprolol Tartrate (LOPRESSOR) 50 MG oral Tablet 01-29 00:00: 00 04-08 00:00 :00 No 50mg Take 1 tablet (50 mg total) by mouth 2 times daily Maisha constantino aspirin 81 mg chewable tablet 2021-11 15:36: 13 Yes 81mg Take 81 mg by mouth daily. [facility] spironolact one 25 mg tablet 2021-11 15:36: 13 Yes 25mg Take 25 mg by mouth 2 (two) times daily. [facility] omega-3-dha -epa-dpa-fi sh oil (OMEGA-3 2100) 1,050-1,200 mg Cap 2021-11 15:36: 13 Yes Take by mouth 2 (two) times daily. [facility] METOPROLOL SUCCINATE ORAL 2021-11 15:36: 13 Yes 50mg Take 50 mg by mouth 2 (two) times daily. [facility] pantoprazol e 40 mg EC tablet 2021-11 15:36: 13 Yes 40mg Take 40 mg by mouth 2 (two) times daily. [facility] aspirin 81 mg chewable tablet 2021-11 15:36: 13 Yes 81mg Take 81 mg by mouth daily. [facility] spironolact one 25 mg tablet 2021-11 15:36: 13 Yes 25mg Take 25 mg by mouth 2 (two) times daily. [facility] omega-3-dha -epa-dpa-fi sh oil (OMEGA-3 2099) 1,050-1,200 mg Cap 2021-11 15:36: 13 Yes Take by mouth 2 (two) times daily. [facility] METOPROLOL SUCCINATE ORAL 2021-11 15:36: 13 Yes 50mg Take 50 mg by mouth 2 (two) times daily. [facility] pantoprazol e 40 mg EC tablet 2021-11 15:36: 13 Yes 40mg Take 40 mg by mouth 2 (two) times daily. [facility] atorvastati n 20 mg tablet 2021-11 11:58: 50 11-12 00:00 :00 No 40mg Take 40 mg by mouth at bedtime. [facility] famotidine 40 mg tablet 2021-11 11:58: 50 11-12 00:00 :00 No 40mg Take 40 mg by mouth daily. [facility] metoclopram nixon HCl (REGLAN) injection 10 mg 2021-11 19:45: 00 11-13 17:59 :00 No 10mg 10 mg, Slow IV Push, Q6H, 8 doses, First dose on Thu11/11/22 at 1345, Last dose on Thu11/13/22 at 0600, Routine [facility] potassium chloride in water 10 mEq/100 mL RTU 10 mEq 2021-11 15:00: 00 11-11 17:25 :00 No 10meq 10 mEq, IV Piggyback, Q1H, 2 doses, First dose on Thu11/11/22 at 0900, Last dose on Thu11/11/22 at 1000, Administer over 60 Minutes, 100 mL [facility] KCL (KLOR-CON M20) tablet 40 mEq 2021-11 14:15: 00 11-11 19:57 :00 No 40meq 40 mEq, Oral, Q2H, 3 doses, First dose on Thu11/11/22 at 0815, Last dose on Thu11/11/22 at 1200, Routine [facility] pantoprazol e (PROTONIX) EC tablet 40 mg 2021-11 02:00: 00 Yes 40mg 40 mg, Oral, BID, First dose on Thu11/10/22 at 2000, Until Discontinu ed, Routine [facility] potassium chloride in water 10 mEq/100 mL RTU 10 mEq 2021-11 23:45: 00 11-11 01:05 :00 No 10meq 10 mEq, IV Piggyback, ONCE, 1 dose, On Thu11/10/22 at 1745, Administer over 60 Minutes, 100 mL [facility] potassium chloride in water 10 mEq/100 mL RTU 10 mEq 2021-11 22:00: 00 11-10 22:59 :00 No 10meq 10 mEq, IV Piggyback, ONCE, 1 dose, On Thu11/10/22 at 1600, Administer over 60 Minutes, 100 mL [facility] potassium chloride in water 10 mEq/100 mL RTU 10 mEq 2021-11 17:00: 00 11-10 20:59 :00 No 10meq 10 mEq, IV Piggyback, Q1H, 4 doses, First dose on Thu11/10/22 at 1100, Last dose on Thu11/10/22 at 1400, Administer over 60 Minutes, 100 mL [facility] KCL (KLOR-CON M20) tablet 40 mEq 2021-11 15:45: 00 11-10 14:57 :00 No 40meq 40 mEq, Oral, ONCE, 1 dose, On Thu11/10/22 at 0945, Routine [facility] insulin glargine (LANTUS U-100) injection 10 Units 2021-11 15:00: 00 Yes 10U 10 Units, Subcutaneo us, DAILY, First dose on Thu11/10/22 at 0900, Until Discontinu ed, Routine [facility] aspirin chewable tablet 81 mg 2021-11 15:00: 00 Yes 81mg 81 mg, Oral, DAILY, First dose on Thu11/10/22 at 0900, Until Discontinu ed, Routine [facility] Sliding Scale Insulin - Lispro (HumaLOG) + Fsbg Testing 2021-11 14:00: 00 Yes Subcutaneo us, TID MEALS+HS, First dose (after last modificati on) on Thu11/10/22 at 0800, Until Discontinu ed, Routine [facility] metoprolol succinate XL (TOPROL XL) tablet 50 mg 2021-11 14:00: 00 Yes 50mg 50 mg, Oral, BID, First dose on Thu11/10/22 at 0800, Until Discontinu ed [facility] apixaban (ELIQUIS) tablet 5 mg 2021-11 14:00: 00 Yes [id number] 5mg 5 mg, Oral, BID, First dose on Thu11/10/22 at 0800, Until Discontinu ed, Routine
Indicatio ns: Non-Valvul ar Atrial Fibrillati on [facility] pantoprazol e (PROTONIX) injection 40 mg 2021-11 14:00: 00 11-10 21:04 :12 No 40mg 40 mg, Slow IV Push, Q12H, First dose on Thu11/10/22 at 0800, Until Discontinu ed [facility] spironolact one (ALDACTONE) tablet 25 mg 2021-11 14:00: 00 11-10 21:02 :33 No 25mg 25 mg, Oral, BID, First dose on Thu11/10/22 at 0800, Until Discontinu ed, Routine [facility] glucagon (GLUCAGEN DIAGNOSTIC KIT) injection 1 mg 2021-11 07:13: 25 Yes 1mg 1 mg, Intramuscu lar, PRN, Starting on Thu11/10/22 at 0113, Until Discontinu ed, [place], Blood Glucose < or = 70 mg/dL and patient is unable to swallow or has mental changes. [facility] dextrose 50 % in water (D50W) injection 25 mL 2021-11 07:13: 25 Yes 25mL 25 mL, Slow IV Push, PRN, Starting on Thu11/10/22 at 0113, Until Discontinu ed, [place], Blood Glucose < or = 70 mg/dL and patient is unable to swallow or has mental status changes. [facility] ondansetron (ZOFRAN (PF)) injection 4 mg 2021-11 07:13: 15 11-11 19:30 :03 No 4mg 4 mg, Slow IV Push, Q6HPRN, Starting on Thu11/10/22 at 0113, Until Tu11/11/22 at 1330, Routine, Nausea and Vomiting (N/V) [facility] HYDROcodone -acetaminop hen (NORCO) 10-325 mg tablet 1 tablet 2021-11 07:13: 12 Yes 1{tbl} 1 tablet, Oral, Q6HPRN, Starting on Thu11/10/22 at 0113, Until Discontinu ed, Routine, Pain (scale 7-10) [facility] acetaminoph en (TYLENOL) tablet 650 mg 2021-11 07:13: 06 Yes 650mg 650 mg, Oral, Q6HPRN, Starting on Thu11/10/22 at 0113, Until Discontinu ed, Routine, Pain (scale 1-3) [facility] potassium chloride in water 10 mEq/100 mL RTU 10 mEq 2021-11 06:00: 00 11-10 06:45 :00 No 10meq 10 mEq, IV Piggyback, ONCE, 1 dose, On 11/10/22 at 0000, Administer over 60 Minutes, 100 mL [facility] pantoprazol e (PROTONIX) injection 40 mg 2021-11 04:45: 00 11-10 05:14 :00 No 40mg 40 mg, Slow IV Push, ONCE, 1 dose, On 11/09/22 at 2245 [facility] NaCl 0.9% (NS) bolus infusion 1,000 mL 2021-11 04:15: 00 11-10 04:00 :00 No 1000mL at 999 mL/hr, 1,000 mL, IV Infusion, ONCE, 1 dose, On 11/09/22 at 2215, STAT [facility] metoclopram nixon HCl (REGLAN) injection 10 mg 2021-11 03:15: 00 11-10 03:54 :00 No 10mg 10 mg, Slow IV Push, ONCE, 1 dose, On 11/09/22 at 2115, [place] [facility] aspirin 81 mg chewable tablet 2021-11 01:13: 48 Yes 81mg Take 81 mg by mouth daily. [facility] spironolact one 25 mg tablet 2021-11 01:13: 48 Yes 25mg Take 25 mg by mouth 2 (two) times daily. [facility] omega-3-dha -epa-dpa-fi sh oil (OMEGA-3 2100) 1,050-1,200 mg Cap 2021-11 01:13: 48 Yes Take by mouth 2 (two) times daily. [facility] METOPROLOL SUCCINATE ORAL 2021-11 01:13: 48 Yes 50mg Take 50 mg by mouth 2 (two) times daily. [facility] atorvastati n 20 mg tablet 2021-11 01:13: 48 Yes 40mg Take 40 mg by mouth at bedtime. [facility] pantoprazol e 40 mg EC tablet 2021-11 01:13: 48 Yes 40mg Take 40 mg by mouth 2 (two) times daily. [facility] famotidine 40 mg tablet 2021-11 01:13: 48 Yes 40mg Take 40 mg by mouth daily. [facility] aspirin 81 mg chewable tablet 2021-11 01:13: 48 Yes 81mg Take 81 mg by mouth daily. [facility] spironolact one 25 mg tablet 2021-11 01:13: 48 Yes 25mg Take 25 mg by mouth 2 (two) times daily. [facility] omega-3-dha -epa-dpa-fi sh oil (OMEGA-3 2100) 1,050-1,200 mg Cap 2021-11 01:13: 48 Yes Take by mouth 2 (two) times daily. [facility] METOPROLOL SUCCINATE ORAL 2021-11 01:13: 48 Yes 50mg Take 50 mg by mouth 2 (two) times daily. [facility] atorvastati n 20 mg tablet 2021-11 01:13: 48 Yes 40mg Take 40 mg by mouth at bedtime. [facility] pantoprazol e 40 mg EC tablet 2021-11 01:13: 48 Yes 40mg Take 40 mg by mouth 2 (two) times daily. [facility] famotidine 40 mg tablet 2021-11 01:13: 48 Yes 40mg Take 40 mg by mouth daily. [facility] insulin glargine (LANTUS U-100) injection 10 Units 2021-11 15:00: 00 Yes 10U 10 Units, Subcutaneo us, DAILY, First dose (after last modificati on) on 11/08/22 at 0900, Until Discontinu ed, Routine [facility] insulin glargine 100 unit/mL injection 2021-11 00:00: 00 Yes [id number] 10U inject 10 Units under the skin daily. If not eating or if blood sugar is between 80 and 120 give HALF the dose. If blood sugar less than 80: Eat a meal and recheck. Give half dose of insulin once blood sugar over 120. [facility] insulin glargine 100 unit/mL injection 2021-11 00:00: 00 Yes [id number] 10U inject 10 Units under the skin daily. If not eating or if blood sugar is between 80 and 120 give HALF the dose. If blood sugar less than 80: Eat a meal and recheck. Give half dose of insulin once blood sugar over 120. [facility] insulin glargine 100 unit/mL injection 2021-11 00:00: 00 Yes [id number] 10U inject 10 Units under the skin daily. If not eating or if blood sugar is between 80 and 120 give HALF the dose. If blood sugar less than 80: Eat a meal and recheck. Give half dose of insulin once blood sugar over 120. [facility] insulin glargine 100 unit/mL injection 2021-11 00:00: 00 Yes [id number] 10U inject 10 Units under the skin daily. If not eating or if blood sugar is between 80 and 120 give HALF the dose. If blood sugar less than 80: Eat a meal and recheck. Give half dose of insulin once blood sugar over 120. [facility] insulin glargine 100 unit/mL injection 2021-11 00:00: 00 Yes [id number] 10U inject 10 Units under the skin daily. If not eating or if blood sugar is between 80 and 120 give HALF the dose. If blood sugar less than 80: Eat a meal and recheck. Give half dose of insulin once blood sugar over 120. [facility] insulin lispro (human) (HumaLOG U-100) injection 3 Units 2021-11 23:00: 00 Yes 3U 3 Units, Subcutaneo us, TID MEALS, First dose (after last modificati on) on Thu11/07/22 at 1700, Until Discontinu ed, Routine [facility] aspirin 81 mg chewable tablet 2021-11 17:37: 57 Yes 81mg Take 81 mg by mouth daily. [facility] spironolact one 25 mg tablet 2021-11 17:37: 57 Yes 25mg Take 25 mg by mouth 2 (two) times daily. [facility] omega-3-dha -epa-dpa-fi sh oil (OMEGA-3 2100) 1,050-1,200 mg Cap 2021-11 17:37: 57 Yes Take by mouth 2 (two) times daily. [facility] METOPROLOL SUCCINATE ORAL 2021-11 17:37: 57 Yes 50mg Take 50 mg by mouth 2 (two) times daily. [facility] atorvastati n 20 mg tablet 2021-11 17:37: 57 Yes 40mg Take 40 mg by mouth at bedtime. [facility] pantoprazol e 40 mg EC tablet 2021-11 17:37: 57 Yes 40mg Take 40 mg by mouth 2 (two) times daily. [facility] sodium phosphate 30 mmol in NaCl 0.9% (NS) 250 mL piggyback 2021-11 17:30: 00 11-07 21:49 :00 No 30mmol 30 mmol, IV Piggyback, ONCE, 1 dose, On Thu11/07/22 at 1130, Administer over 4 Hours, 250 mL [facility] apixaban (ELIQUIS) tablet 5 mg 2021-11 15:30: 00 Yes 5mg 5 mg, Oral, BID, First dose on Thu11/07/22 at 0930, Until Discontinu ed, Routine
Indicatio ns: Non-Valvul ar Atrial Fibrillati on [facility] aspirin chewable tablet 81 mg 2021-11 15:00: 00 Yes 81mg 81 mg, Oral, DAILY, First dose on Thu11/07/22 at 0900, Until Discontinu ed, Routine [facility] KCL (KLOR-CON M20) tablet 40 mEq 2021-11 15:00: 00 11-07 17:13 :00 No 40meq 40 mEq, Oral, ONCE, 1 dose, On Thu11/07/22 at 0900, Routine [facility] insulin regular, human (HUMULIN R U-500, CONC, INSULIN SC) 2021-11 14:59: 33 11-07 00:00 :00 No 35U inject 35 Units under the skin 2 (two) times daily. [facility] tirzepatide 5 mg/0.5 mL subcutaneou s injection 2021-11 14:59: 33 11-07 00:00 :00 No 5mg inject 5 mg under the skin weekly. [facility] metoprolol succinate XL (TOPROL XL) tablet 50 mg 2021-11 14:00: 00 Yes 50mg 50 mg, Oral, BID, First dose on Thu11/07/22 at 0800, Until Discontinu ed, Routine [facility] atorvastati n (LIPITOR) tablet 40 mg 2021-11 03:00: 00 Yes 40mg 40 mg, Oral, QHS, First dose on Thu11/06/22 at 2100, Until Discontinu ed, Routine [facility] Metformin HCl 1000 MG oral Tablet 2021-11 00:00: 00 Yes 1000mg Take 1 tablet (1,000 mg total) by mouth in the morning and 1 tablet (1,000 mg total) in the evening. Take with meals. Maisha constantino INSULIN REGULAR HUMAN (HUMULIN R) 500 UNIT/ML subcutaneou s Solution 2021-11 00:00: 00 Yes Do not take your scheduled regular insulin. Only use regular insulin before breakfast and dinner if blood sugar above 170 as following Blood sugar 170 to 220, give 1 unit. Blood sugar 221 to 270, give 2 units. Blood sugar 271 to 300, give 3 units. Blood sugar greater than 300, give 4 units, recheck in 6 hours or before next meal and cover again with sliding scale Maisha constantino Metformin HCl 1000 MG oral Tablet 2021-11 00:00: 00 Yes 1000mg Take 1 tablet (1,000 mg total) by mouth in the morning and 1 tablet (1,000 mg total) in the evening. Take with meals. Maisha constantino apixaban 5 mg tablet 2021-11 00:00: 00 Yes 1358 5mg Take 1 tablet by mouth 2 (two) times daily. Indication s: atrial fibrillati on [facility] tirzepatide (MOUNJARO) 7.5 mg/0.5 mL PnIj 2021-11 00:00: 00 Yes [id number] 7.5mg inject 7.5 mg under the skin weekly. [facility] metFORMIN 1,000 mg tablet 2021-11 00:00: 00 Yes [id number] 1000mg Take 1 tablet by mouth 2 (two) times daily with meals. [facility] insulin regular human (HUMULIN R) 500 unit/mL injection 2021-11 00:00: 00 Yes [id number] Do not take your scheduled regular insulin. Only use regular insulin before breakfast and dinner if blood sugar above 170 as following Blood sugar 170 to 220, give 1 unit. Blood sugar 221 to 270, give 2 units. Blood sugar 271 to 300, give 3 units. Blood sugar greater than 300, give 4 units, recheck in 6 hours or before next meal and cover again with sliding scale [facility] apixaban 5 mg tablet 2021-11 00:00: 00 Yes [id number] 5mg Take 1 tablet by mouth 2 (two) times daily. Indication s: atrial fibrillati on [facility] tirzepatide (MOUNJARO) 7.5 mg/0.5 mL PnIj 2021-11 00:00: 00 Yes [id number] 7.5mg inject 7.5 mg under the skin weekly. [facility] metFORMIN 1,000 mg tablet 2021-11 00:00: 00 Yes [id number] 1000mg Take 1 tablet by mouth 2 (two) times daily with meals. [facility] insulin regular human (HUMULIN R) 500 unit/mL injection 2021-11 00:00: 00 Yes [id number] Do not take your scheduled regular insulin. Only use regular insulin before breakfast and dinner if blood sugar above 170 as following Blood sugar 170 to 220, give 1 unit. Blood sugar 221 to 270, give 2 units. Blood sugar 271 to 300, give 3 units. Blood sugar greater than 300, give 4 units, recheck in 6 hours or before next meal and cover again with sliding scale [facility] apixaban 5 mg tablet 2021-11 00:00: 00 Yes [id number] 5mg Take 1 tablet by mouth 2 (two) times daily. Indication s: atrial fibrillati on [facility] tirzepatide (MOUNJARO) 7.5 mg/0.5 mL PnIj 2021-11 00:00: 00 Yes [id number] 7.5mg inject 7.5 mg under the skin weekly. [facility] metFORMIN 1,000 mg tablet 2021-11 00:00: 00 Yes [id number] 1000mg Take 1 tablet by mouth 2 (two) times daily with meals. [facility] insulin regular human (HUMULIN R) 500 unit/mL injection 2021-11 00:00: 00 Yes [id number] Do not take your scheduled regular insulin. Only use regular insulin before breakfast and dinner if blood sugar above 170 as following Blood sugar 170 to 220, give 1 unit. Blood sugar 221 to 270, give 2 units. Blood sugar 271 to 300, give 3 units. Blood sugar greater than 300, give 4 units, recheck in 6 hours or before next meal and cover again with sliding scale [facility] apixaban 5 mg tablet 2021-11 00:00: 00 Yes 1358 5mg Take 1 tablet by mouth 2 (two) times daily. Indication s: atrial fibrillati on [facility] metFORMIN 1,000 mg tablet 2021-11 00:00: 00 Yes [id number] 1000mg Take 1 tablet by mouth 2 (two) times daily with meals. [facility] insulin regular human (HUMULIN R) 500 unit/mL injection 2021-11 00:00: 00 Yes [id number] Do not take your scheduled regular insulin. Only use regular insulin before breakfast and dinner if blood sugar above 170 as following Blood sugar 170 to 220, give 1 unit. Blood sugar 221 to 270, give 2 units. Blood sugar 271 to 300, give 3 units. Blood sugar greater than 300, give 4 units, recheck in 6 hours or before next meal and cover again with sliding scale [facility] apixaban 5 mg tablet 2021-11 00:00: 00 Yes 1358 5mg Take 1 tablet by mouth 2 (two) times daily. Indication s: atrial fibrillati on [facility] metFORMIN 1,000 mg tablet 2021-11 00:00: 00 Yes [id number] 1000mg Take 1 tablet by mouth 2 (two) times daily with meals. [facility] insulin regular human (HUMULIN R) 500 unit/mL injection 2021-11 00:00: 00 Yes [id number] Do not take your scheduled regular insulin. Only use regular insulin before breakfast and dinner if blood sugar above 170 as following Blood sugar 170 to 220, give 1 unit. Blood sugar 221 to 270, give 2 units. Blood sugar 271 to 300, give 3 units. Blood sugar greater than 300, give 4 units, recheck in 6 hours or before next meal and cover again with sliding scale [facility] Metformin HCl 1000 MG oral Tablet 2021-11 00:00: 00 04-17 00:00 :00 No 1000mg Take 1 tablet (1,000 mg total) by mouth in the morning and 1 tablet (1,000 mg total) in the evening. Take with meals. Maisha Moy - Yoselin constantino INSULIN REGULAR HUMAN (HUMULIN R) 500 UNIT/ML subcutaneou s Solution 2021-11 00:00: 00 04-08 00:00 :00 No Do not take your scheduled regular insulin. Only use regular insulin before breakfast and dinner if blood sugar above 170 as following Blood sugar 170 to 220, give 1 unit. Blood sugar 221 to 270, give 2 units. Blood sugar 271 to 300, give 3 units. Blood sugar greater than 300, give 4 units, recheck in 6 hours or before next meal and cover again with sliding scale Maisha Moy - Karinaa l tirzepatide (MOUNJARO) 7.5 mg/0.5 mL PnIj 2021-11 00:00: 00 11-12 00:00 :00 No [id number] 7.5mg inject 7.5 mg under the skin weekly. [facility] Sliding Scale Insulin - Lispro (HumaLOG) + Fsbg Testing 2021-11 23:00: 00 Yes Subcutaneo us, TID MEALS+HS, First dose on Thu11/06/22 at 1700, Until Discontinu ed, Routine [facility] insulin lispro (human) (HumaLOG U-100) injection 6 Units 2021-11 23:00: 00 11-07 20:55 :57 No 6U 6 Units, Subcutaneo us, TID MEALS, First dose on Thu11/06/22 at 1700, Until Discontinu ed, [facility]OV[facility]OX[facility] 40 mg 2021-11 23:00: 00 11-07 15:23 :13 No 40mg 40 mg, Subcutaneo us, DAILY, First dose on Thu11/06/22 at 1700, Until Discontinu ed, Routine [facility] D5W-LR IV infusion 1,000 mL 2021-11 22:32: 00 Yes 1000mL at 150 mL/hr, IV Infusion, CONTINUOUS , Starting on Thu11/06/22 at 1645, Until Discontinu ed, Routine [facility] glucagon (GLUCAGEN DIAGNOSTIC KIT) injection 1 mg 2021-11 22:00: 35 Yes 1mg 1 mg, Intramuscu lar, PRN, Starting on Thu11/06/22 at 1600, Until Discontinu ed, [place], Blood Glucose < or = 70 mg/dL and patient is unable to swallow or has mental changes. [facility] dextrose 50 % in water (D50W) injection 25 mL 2021-11 22:00: 35 Yes 25mL 25 mL, Slow IV Push, PRN, Starting on Thu11/06/22 at 1600, Until Discontinu ed, [place], Blood Glucose < or = 70 mg/dL and patient is unable to swallow or has mental status changes. [facility] sodium bicarbonate 8.4 % (1 mEq/mL) injection 50 mEq 2021-11 16:15: 00 11-06 16:16 :00 No 50meq 50 mEq, Slow IV Push, ONCE, 1 dose, On Thu11/06/22 at 1015, Routine [facility] insulin glargine (LANTUS U-100) injection 20 Units 2021-11 15:30: 00 11-07 20:55 :57 No 20U 20 Units, Subcutaneo us, DAILY, First dose on Thu11/06/22 at 0930, Until Discontinu ed, Routine [facility] clotrimazol e (LOTRIMIN) 1 % topical cream 2021-11 15:00: 00 Yes Topical, DAILY, First dose on Thu11/06/22 at 0900, Until Discontinu ed, Routine [facility] morpHINE (2 mg/mL) injection 2 mg 2021-11 14:51: 00 11-06 16:16 :00 No 2mg 2 mg, Slow IV Push, ONCE, 1 dose, On Thu11/06/22 at 0900, Routine [facility] empaglifloz in-metformi n (SYNJARDY) 12.5-1,000 mg Tab 2021-11 14:36: 52 11-06 00:00 :00 No 2{tbl} Take 2 tablets by mouth 2 (two) times daily. [facility] D5W-LR IV infusion 1,000 mL 2021-11 12:45: 00 11-06 21:59 :42 No 1000mL at 200 mL/hr, IV Infusion, CONTINUOUS , Starting on Thu11/06/22 at 0645, Until Thu11/06/22 at 1559, Routine [facility] ondansetron (ZOFRAN (PF)) injection 4 mg 2021-11 11:51: 01 Yes 4mg 4 mg, Slow IV Push, Q6HPRN, Starting on Thu11/06/22 at 0551, Until Discontinu ed, [place], Nausea and Vomiting (N/V) [facility] acetaminoph en (TYLENOL) tablet 650 mg 2021-11 11:39: 11 Yes 650mg 650 mg, Oral, Q6HPRN, Starting on Thu11/06/22 at 0539, Until Discontinu ed, Routine, Pain (scale 4-6), Pain (scale 1-3), headache [facility] NaCl 0.9% (NS) bolus infusion 1,000 mL 2021-11 07:30: 00 11-06 08:22 :00 No 1000mL at 999 mL/hr, 1,000 mL, IV Infusion, ONCE, 1 dose, On Thu11/06/22 at 0130, STAT [facility] morpHINE (2 mg/mL) injection 4 mg 2021-11 07:15: 00 11-06 07:16 :00 No 4mg 4 mg, Slow IV Push, ONCE, 1 dose, On Thu11/06/22 at 0115, Routine [facility] iopamidol (ISOVUE 370-500 mL) injection 150 mL 2021-11 07:00: 00 11-06 07:00 :00 No [id number] 150mL 150 mL, Intravenou s, ONCE, 1 dose, On Thu11/06/22 at 0100, Routine [facility] NaCl 0.45% (1/2NS) 1000 mL + KCL 20 mEq 2021-11 06:45: 00 11-06 11:36 :49 No 1000mL [facility] D5W 0.45% NaCl (1/2NS) 1 L + KCL 20 mEq 2021-11 06:43: 25 11-06 11:36 :49 No IV Infusion, at 200 mL/hr, PRN - SEE INSTRUCTIO NS, Starting on Thu11/06/22 at 0043, Until Thu11/06/22 at 0536, [place], Blood glucose control [facility] acetaminoph en (TYLENOL) tablet 975 mg 2021-11 05:30: 00 11-06 04:58 :00 No 975mg 975 mg, Oral, ONCE, 1 dose, On Thu11/05/22 at 2330, [place] [facility] ondansetron (ZOFRAN (PF)) injection 4 mg 2021-11 05:30: 00 11-06 04:57 :00 No 4mg 4 mg, Slow IV Push, ONCE, 1 dose, On Thu11/05/22 at 2330, [place] [facility] sulfur hexafluorid e microsphr (LUMASON) injection 5 mL 2021-11 17:15: 00 09-04 17:15 :00 No [id number] 5mL 5 mL, Intravenou s, ONCE, 1 dose, On Barbra 09/04/22 at 1215, Routine
meat team member approving Restricted medication : MAURA QUEEN [facility] aspirin 81 mg chewable tablet 2021-11 14:37: 28 Yes 81mg Take 81 mg by mouth daily. [facility] empaglifloz in-metformi n (SYNJARDY) 12.5-1,000 mg Tab 2021-11 14:37: 28 Yes 2{tbl} Take 2 tablets by mouth 2 (two) times daily. [facility] spironolact one 25 mg tablet 2021-11 14:37: 28 Yes 25mg Take 25 mg by mouth 2 (two) times daily. [facility] omega-3-dha -epa-dpa-fi sh oil (OMEGA-3 2100) 1,050-1,200 mg Cap 2021-11 14:37: 28 Yes Take by mouth 2 (two) times daily. [facility] METOPROLOL SUCCINATE ORAL 2021-11 14:37: 28 Yes 50mg Take 50 mg by mouth 2 (two) times daily. [facility] atorvastati n 20 mg tablet 2021-11 14:37: 28 Yes 40mg Take 40 mg by mouth at bedtime. [facility] pantoprazol e 40 mg EC tablet 2021-11 14:37: 28 Yes 40mg Take 40 mg by mouth 2 (two) times daily. [facility] insulin regular, human (HUMULIN R U-500, CONC, INSULIN SC) 2021-11 14:37: 28 Yes 35U inject 35 Units under the skin 2 (two) times daily. [facility] tirzepatide 5 mg/0.5 mL subcutaneou s injection 2021-11 14:37: 28 Yes 5mg inject 5 mg under the skin weekly. [facility] SITagliptin (JANUVIA) tablet 50 mg 2021-11 14:00: 00 Yes 50mg 50 mg, Oral, DAILY, First dose on Thu09/04/22 at 0900, Until Discontinu ed, Routine [facility] insulin glargineheydirec.anlog (CHIOMA JO U-300 INSULIN SC) 2021-11 13:06: 04 09-04 00:00 :00 No inject under the skin. [facility] apixaban (ELIQUIS) 5 mg tablet 2021-11 13:06: 04 09-04 00:00 :00 No 5mg Take 5 mg by mouth 2 (two) times daily. [facility] enoxaparin (LOVENOX) injection 40 mg 2021-11 05:45: 00 Yes 40mg 40 mg, Subcutaneo us, Q24H, First dose on Thu09/04/22 at 0045, Until Discontinu ed, Routine [facility] sennosides (SENOKOT) tablet 8.6 mg 2021-11 04:45: 00 Yes 8.6mg 8.6 mg, Oral, BID, First dose on Thu09/03/22 at 2345, Until Discontinu ed, Routine [facility] docusate (COLACE) capsule 100 mg 2021-11 04:45: 00 Yes 100mg 100 mg, Oral, BID, First dose on Thu09/03/22 at 2345, Until Discontinu ed, Routine [facility] aspirin chewable tablet 81 mg 2021-11 04:45: 00 Yes 81mg 81 mg, Oral, QAM WITH BREAKFAST, First dose on Thu09/03/22 at 2345, Until Discontinu ed, Routine [facility] sucralfate (CARAFATE) 100 mg/mL suspension 1,000 mg 2021-11 04:45: 00 Yes 1g 1,000 mg (1 g), Oral, AC+HS, First dose on Thu09/03/22 at 2345, Until Discontinu ed, Routine [facility] pantoprazol e (PROTONIX) injection 40 mg 2021-11 0-06 04:45: 00 Yes 40mg 40 mg, Slow IV Push, Q12H, First dose on Thu09/03/22 at 2345, Until Discontinu ed [facility] (LOPRESSOR) tablet 50 mg 2021-11 0-06 04:45: 00 Yes 50mg 50 mg, Oral, BID, First dose on Thu09/03/22 at 2345, Until Discontinu ed, Routine [facility] insulin NPH and regular human 70-30 (70-30 U-100 INSULIN) 100 unit/mL (70-30) injection 35 Units 2021-11 0-06 04:45: 00 Yes 35U 35 Units, Subcutaneo us, BIDAC, First dose on Thu09/03/22 at 2345, Until Discontinu ed, Routine [facility] atorvast[facility] (LIPITOR) tablet 40 mg 2021-11 0-06 04:45: 00 Yes 40mg 40 mg, Oral, QHS, First dose on Thu09/03/22 at 2345, Until Discontinu ed, Routine [facility] furosemide (LASIX) injection 20 mg 2021-11 0-06 04:45: 00 09-04 13:50 :16 No 20mg 20 mg, IV Push, Q8H, First dose on Thu09/03/22 at 2345, Until Discontinu ed, [place] [facility] ondansetron (ZOFRAN (PF)) injection 4 mg 2021-11 006 04:33: 54 Yes 4mg 4 mg, Slow IV Push, Q6HPRN, Starting on Thu09/03/22 at 2333, Until Discontinu ed, Routine, Nausea and Vomiting (N/V) [facility] Sliding Scale Insulin - Lispro (HumaLOG) + Fsbg Testing 2021-11 0-06 04:30: 00 Yes Subcutaneo us, TID MEALS+HS, First dose on Thu09/03/22 at 2330, Until Discontinu ed, Routine [facility] nitroglycer in (NITROSTAT) sublingual tablet 0.4 mg 2021-11 22:30: 00 09-03 22:34 :00 No .4mg 0.4 mg, Sublingual , ONCE, 1 dose, On Thu09/03/22 at 1730, [place] [facility] magnesium oxide (MAG-OX 400) tablet 400 mg 04-24 01:00: 00 04-25 12:59 :00 No 400mg 400 mg, Oral, BID, 3 doses, First dose on Thu04/23/22 at 1999, Last dose on Thu04/24/22 at 1999, Routine [facility] maalox:diph enhydrAMINE :lidocaine 2 % viscous 1:1:1 ([facility]) oral suspension 15 mL 04-23 15:47: 15 Yes 15mL 15 mL, Oral, QDAILYPRN, Starting on Thu04/23/22 at 1047, Until Discontinu ed, Routine, indigestio n [facility] insulin glargine,heydi longrec.anlog (CHIOMA SOLMARINE U-300 INSULIN SC) 04-23 15:15: 25 Yes inject under the skin. [facility] aspirin 81 mg chewable tablet 04-23 15:15: 25 Yes 81mg Take 81 mg by mouth daily. [facility] empaglifloz in-metformi n (SYNJARDY) 12.5-1,000 mg Tab 04-23 15:15: 25 Yes 2{tbl} Take 2 tablets by mouth 2 (two) times daily. [facility] apixaban (ELIQUIS) 5 mg tablet 04-23 15:15: 25 Yes 5mg Take 5 mg by mouth 2 (two) times daily. [facility] spironolact one 25 mg tablet 04-23 15:15: 25 Yes 25mg Take 25 mg by mouth 2 (two) times daily. [facility] insulin glargine,[facility].rec.anlog (TOUERICKO SOLOSTAR U-300 INSULIN SC) 04-23 15:15: 25 Yes inject under the skin. [facility] aspirin 81 mg chewable tablet 04-23 15:15: 25 Yes 81mg Take 81 mg by mouth daily. [facility] empaglifloz in-metformi n (SYNJARDY) 12.5-1,000 mg Tab 04-23 15:15: 25 Yes 2{tbl} Take 2 tablets by mouth 2 (two) times daily. [facility] apixaban (ELIQUIS) 5 mg tablet 04-23 15:15: 25 Yes 5mg Take 5 mg by mouth 2 (two) times daily. [facility] spironolact one 25 mg tablet 04-23 15:15: 25 Yes 25mg Take 25 mg by mouth 2 (two) times daily. [facility] KCL (KLOR-CON M20) tablet 40 mEq 04-23 14:15: 00 04-23 15:57 :00 No 40meq 40 mEq, Oral, ONCE, 1 dose, On Thu04/23/22 at 0915, Routine [facility] insulin glargine,[facility].rec.anlog (LANTUS SC) 04-23 10:54: 26 04-23 00:00 :00 No inject under the skin. [facility] sitagliptin phosphate (JANUVIA ORAL) 04-23 10:54: 26 04-23 00:00 :00 No Take by mouth. [facility] atorvastati n calcium (LIPITOR ORAL) 04-23 10:54: 04-23 00:00 :00 No 40mg Take 40 mg by mouth. [facility] METOPROLOL TARTRATE ORAL 04-23 10:54: 26 04-23 00:00 :00 No 50mg Take 50 mg by mouth 2 (two) times daily. [facility] morpHINE (2 mg/mL) injection 2 mg 04-23 10:16: 57 Yes [id number] 2mg 2 mg, Slow IV Push, Q4HPRN, Starting on Thu04/23/22 at 0516, Until Discontinu ed, Routine, Pain (scale 7-10) [facility] Sliding Scale Insulin - Lispro (HumaLOG) + Fsbg Testing 04-23 03:00: 00 Yes Subcutaneo us, Q3H, First dose on Thu04/22/22 at 2200, Until Discontinu ed, Routine [facility] insulin glargine (LANTUS U-100) injection 25 Units 04-23 03:00: 00 Yes 25U 25 Units, Subcutaneo us, Q12H, First dose on Thu04/22/22 at 2200, Until Discontinu ed, Routine [facility] glucagon (GLUCAGEN DIAGNOSTIC KIT) injection 1 mg 04-23 02:55: 16 Yes 1mg 1 mg, Intramuscu lar, PRN, Starting on Thu04/22/22 at 2155, Until Discontinu ed, [place], Blood Glucose < or = 70 mg/dL and patient is unable to swallow or has mental changes. [facility] dextrose 50 % in water (D50W) injection 25 mL 04-23 02:55: 16 Yes 25mL 25 mL, Slow IV Push, PRN, Starting on Thu04/22/22 at 2155, Until Discontinu ed, [place], Blood Glucose < or = 70 mg/dL and patient is unable to swallow or has mental status changes. [facility] sucralfate 1 gram tablet 04-23 00:00: 00 05-24 04:59 :00 No [id number] 1g Take 1 tablet by mouth before meals and at bedtime for 30 days. [facility] pantoprazol e 40 mg EC tablet 04-23 00:00: 00 05-24 04:59 :00 No [id number] 40mg Take 1 tablet by mouth 2 (two) times daily for 30 days. [facility] metoprolol tartrate 50 mg tablet 04-23 00:00: 00 05-24 04:59 :00 No [id number] 50mg Take 1 tablet by mouth 2 (two) times daily for 30 days. [facility] atorvastati n (LIPITOR) 40 mg tablet 04-23 00:00: 00 05-24 04:59 :00 No [id number] 40mg Take 1 tablet by mouth at bedtime for 30 days. [facility] sucralfate 1 gram tablet 04-23 00:00: 00 05-24 04:59 :00 No [id number] 1g Take 1 tablet by mouth before meals and at bedtime for 30 days. [facility] pantoprazol e 40 mg EC tablet 04-23 00:00: 00 05-24 04:59 :00 No [id number] 40mg Take 1 tablet by mouth 2 (two) times daily for 30 days. [facility] metoprolol tartrate 50 mg tablet 04-23 00:00: 00 05-24 04:59 :00 No [id number] 50mg Take 1 tablet by mouth 2 (two) times daily for 30 days. [facility] atorvastati n (LIPITOR) 40 mg tablet 04-23 00:00: 00 05-24 04:59 :00 No [id number] 40mg Take 1 tablet by mouth at bedtime for 30 days. [facility] magnesium oxide 420 mg Tab 04-23 00:00: 00 05-09 04:59 :00 No [id number] 400mg Take 400 mg by mouth daily for 15 days. [facility] magnesium oxide 420 mg Tab 04-23 00:00: 00 05-09 04:59 :00 No [id number] 400mg Take 400 mg by mouth daily for 15 days. [facility] sucralfate (CARAFATE) tablet 1 g 04-22 21:30: 00 Yes 1g 1 g, Oral, AC+HS, First dose on Thu04/22/22 at 1630, Until Discontinu ed, Routine [facility] morpHINE (4 mg/mL) injection 2 mg 04-22 16:15: 00 04-22 15:15 :00 No [id number] 2mg 2 mg, Slow IV Push, ONCE, 1 dose, On Thu04/22/22 at 1115, Routine [facility] SITagliptin (JANUVIA) tablet 50 mg 04-22 14:00: 00 Yes 50mg 50 mg, Oral, DAILY, First dose on Thu04/22/22 at 0900, Until Discontinu ed [facility] aspirin chewable tablet 81 mg 04-22 14:00: 00 Yes 81mg 81 mg, Oral, DAILY, First dose on Thu04/22/22 at 0900, Until Discontinu ed, Routine [facility] metoprolol tartrate (LOPRESSOR) tablet 25 mg 04-22 13:00: 00 Yes 25mg 25 mg, Oral, BID, First dose on Thu04/22/22 at 0800, Until Discontinu ed, Routine [facility] apixaban (ELIQUIS) tablet 5 mg 04-22 13:00: 00 Yes 5mg 5 mg, Oral, BID, First dose on Thu04/22/22 at 0800, Until Discontinu ed, Routine
Indicatio ns: Non-Valvul ar Atrial Fibrillati on [facility] pantoprazol e (PROTONIX) EC tablet 40 mg 04-22 13:00: 00 Yes 40mg 40 mg, Oral, BID, First dose on Thu04/22/22 at 0800, Until Discontinu ed, Routine [facility] D5W 0.9% NaCl (NS) 1 L + KCL 40 mEq 04-22 13:00: 00 04-23 02:32 :18 No IV Infusion, at 200 mL/hr, CONTINUOUS , Starting on Thu04/22/22 at 0800, Until Thu04/22/22 at 2132, Routine [facility] ondansetron (ZOFRAN (PF)) injection 4 mg 04-22 12:18: 40 Yes 4mg 4 mg, Slow IV Push, Q6HPRN, Nausea and Vomiting (N/V), Starting on Thu04/22/22 at 0718
Do ses of ondansetro n 16 mg and above need to be administer ed via IV piggyback. For Dose >=24mg ECG monitoring is advisable.
[facility] atorvastati n (LIPITOR) tablet 40 mg 04-22 02:00: 00 Yes 40mg 40 mg, Oral, QHS, First dose on Thu04/21/22 at 2100, Until Discontinu ed, Routine [facility] pantoprazol e (PROTONIX) injection 40 mg 04-22 01:00: 00 04-22 00:00 :00 No [id number] 40mg 40 mg, Slow IV Push, ONCE, 1 dose, On Thu04/21/22 at 1999 [facility] NaCl 0.9% (NS) bolus infusion 2,000 mL 04-22 01:00: 00 04-21 23:59 :00 No [id number] 2000mL at 999 mL/hr, 2,000 mL, IV Infusion, ONCE, 1 dose, On Thu04/21/22 at 2000, [facility] ondansetron (ZOFRAN (PF)) injection 4 mg 04-22 00:30: 00 04-21 23:26 :00 No [id number] 4mg 4 mg, Slow IV Push, ONCE, 1 dose, On Thu04/21/22 at 1930[facility] (4 mg/mL) injection 4 mg 04-22 00:30: 00 04-21 23:26 :00 No [id number] 4mg 4 mg, Slow IV Push, ONCE, 1 dose, On Thu04/21/22 at 1930, STAT [facility] D5W 0.45% NaCl (1/2NS) IV infusion 1,000 mL 04-22 00:04-22 11:50 :31 No [id number] 1000mL at 200 mL/hr, 1,000 mL, IV Infusion, PRN - SEE KAYLEY PALOMO, Starting on Thu04/21/22 at 1921, Until Thu04/22/22 at 0650, [place] [facility] iopamidol (ISOVUE 370-500 mL) injection 120 mL 04-21 22:15: 00 04-22 00:26 :00 No [id number] 120mL 120 mL, Intravenou s, ONCE, 1 dose, On Thu04/21/22 at 1715, Routine [facility] esomeprazol e magnesium (NEXIUM ORAL) 2020-11 14:20: 21 09-30 00:00 :00 No Take by mouth. [facility] insulin glargineheydi.rec.anlog (LANTUS SC) 2020-11 13:40: 16 Yes inject under the skin. [facility] insulin glargineheydi .rec.anlog (TOUJEO SOLOSTAR U-300 INSULIN SC) 2020-11 13:40: 16 Yes inject under the skin. [facility] sitagliptin phosphate (JANUVIA ORAL) 2020-11 13:40: 16 Yes Take by mouth. [facility] atorvastati n calcium (LIPITOR ORAL) 2020-11 13:40: 16 Yes Take by mouth. [facility] METOPROLOL TARTRATE ORAL 2020-11 13:40: 16 Yes Take by mouth. [facility] aspirin 81 mg chewable tablet 2020-11 13:40: 16 Yes 81mg Take 81 mg by mouth daily. [facility] pantoprazol e 40 mg EC tablet 2020-11 00:00: 00 Yes [id number] 40mg Take 1 tablet by mouth 2 (two) times daily. [facility] pantoprazol e 40 mg EC tablet 2020-11 00:00: 00 2022- 05-25 00:00 :00 No [id number] 40mg Take 1 tablet by mouth 2 (two) times daily. [facility] sucralfate 1 gram tablet 07-02 00:00: 00 Yes [id number] 1g Take 1 tablet by mouth before meals and at bedtime. [facility] ondansetron (ZOFRAN ODT) 4 mg disintegrat ing tablet 07-02 00:00: 00 Yes [id number] 4mg Take 1 tablet by mouth every 8 (eight) hours as needed for Nausea and Vomiting (N/V). [facility] ondansetron (ZOFRAN ODT) 4 mg disintegrat ing tablet 07-02 00:00: 00 Yes [id number] 4mg Take 1 tablet by mouth every 8 (eight) hours as needed for Nausea and Vomiting (N/V). [facility] ondansetron (ZOFRAN ODT) 4 mg disintegrat ing tablet 07-02 00:00: 00 Yes [id number] 4mg Take 1 tablet by mouth every 8 (eight) hours as needed for Nausea and Vomiting (N/V). [facility] ondansetron (ZOFRAN ODT) 4 mg disintegrat ing tablet 07-02 00:00: 00 Yes [id number] 4mg Take 1 tablet by mouth every 8 (eight) hours as needed for Nausea and Vomiting (N/V). [facility] ondansetron (ZOFRAN ODT) 4 mg disintegrat ing tablet 07-02 00:00: 00 Yes [id number] 4mg Take 1 tablet by mouth every 8 (eight) hours as needed for Nausea and Vomiting (N/V). [facility] ondansetron (ZOFRAN ODT) 4 mg disintegrat ing tablet 07-02 00:00: 00 Yes [id number] 4mg Take 1 tablet by mouth every 8 (eight) hours as needed for Nausea and Vomiting (N/V). [facility] ondansetron (ZOFRAN ODT) 4 mg disintegrat ing tablet 07-02 00:00: 00 Yes [id number] 4mg Take 1 tablet by mouth every 8 (eight) hours as needed for Nausea and Vomiting (N/V). [facility] ondansetron (ZOFRAN ODT) 4 mg disintegrat ing tablet 07-02 00:00: 00 Yes [id number] 4mg Take 1 tablet by mouth every 8 (eight) hours as needed for Nausea and Vomiting (N/V). [facility] ondansetron (ZOFRAN ODT) 4 mg disintegrat ing tablet 07-02 00:00: 00 Yes [id number] 4mg Take 1 tablet by mouth every 8 (eight) hours as needed for Nausea and Vomiting (N/V). [facility] sucralfate 1 gram tablet 07-02 00:00: 00 04-23 00:00 :00 No [id number] 1g Take 1 tablet by mouth before meals and at bedtime. [facility] Vital Signs Vital Name Observation Time Observation Value Comments S ource Systolic blood pressure 2023-04-17 13:42:00 124 mm[Hg] Maisha Seybo ld - External Diastolic blood pressure 2023-04-17 13:42:00 72 mm[Hg] Maishathierno Gambinoo ld - External Heart rate 2023-04-17 13:42:00 81 /min Tamara Moy - External Body temperature 2023-04-17 13:42:00 37.11 Chen Maisha orianaold - External Respiratory rate 2023-04-17 13:42:00 18 /min Maisha orianaold - External Body height 2023-04-17 13:42:00 170.2 cm Maeve pedersen ybold - External Body weight 2023-04-17 13:42:00 129.729 kg Maeve pedersen ybold - External BMI 2023-04-17 13:42:00 44.79 kg/m2 Maeve ey Seybold - External Systolic blood pressure 2023-04-08 13:05:00 106 mm[Hg] Maisha ybo ld - External Diastolic blood pressure 2023-04-08 13:05:00 74 mm[Hg] Maisha orianao ld - External Heart rate 2023-04-08 13:05:00 84 /min Kelse y Seybold - External Body temperature 2023-04-08 13:05:00 36.06 Chen Maisha Seybold - External Respiratory rate 2023-04-08 13:05:00 15 /min Maisha Seybold - External Body height 2023-04-08 13:05:00 170.2 cm Maeve ey Seybold - External Body weight 2023-04-08 13:05:00 129.275 kg Maeve ey Seybold - External BMI 2023-04-08 13:05:00 44.64 kg/m2 Maeve ey Seybold - External Oxygen saturation in Arterial blood by Pulse oximetry 2023-04-08 13:05:00 90 /min Maisha Seybo ld - External Systolic blood pressure 2023-04-02 13:42:00 128 mm[Hg] Maisha Seybo ld - External Diastolic blood pressure 2023-04-02 13:42:00 72 mm[Hg] Maisha Seybo ld - External Heart rate 2023-04-02 13:42:00 82 /min Tamara y Seybold - External Body temperature 2023-04-02 13:42:00 36.44 Chen Maisha Seybold - External Respiratory rate 2023-04-02 13:42:00 18 /min Maisha Seybold - External Body height 2023-04-02 13:42:00 170.2 cm Maeve ey Seybold - External Body weight 2023-04-02 13:42:00 127.914 kg Maeve ey Seybold - External BMI 2023-04-02 13:42:00 44.17 kg/m2 Maeve pedersen Seybold - External Body temperature 2022-11-12 18:00:00 37 Chen [facility] Systolic blood pressure 2022-11-12 17:00:00 113 mm[Hg] [facility] Diastolic blood pressure 2022-11-12 17:00:00 67 mm[Hg] [facility] Heart rate 2022-11-12 17:00:00 91 /min [facility] Respiratory rate 2022-11-12 17:00:00 25 /min [facility] Oxygen saturation in Arterial blood by Pulse oximetry 2022-11-12 17:00:00 93 /min [facility] Body weight 2022-11-12 09:42:00 117.981 kg [facility] BMI 2022-11-12 09:42:00 40.74 kg/m2 [facility] Body height 2022-11-10 06:00:00 170.2 cm [facility] Systolic blood pressure 2022-11-07 17:53:00 106 mm[Hg] [facility] Diastolic blood pressure 2022-11-07 17:53:00 70 mm[Hg] [facility] Heart rate 2022-11-07 17:53:00 102 /min [facility] Body temperature 2022-11-07 17:53:00 37.22 Chen [facility] Respiratory rate 2022-11-07 17:53:00 22 /min [facility] Oxygen saturation in Arterial blood by Pulse oximetry 2022-11-07 17:53:00 95 /min [facility] Body height 2022-11-06 11:30:00 170.2 cm [facility] Body weight 2022-11-06 11:30:00 116.5 kg [facility] BMI 2022-11-06 11:30:00 40.23 kg/m2 [facility] Systolic blood pressure 2022-09-04 17:00:00 129 mm[Hg] [facility] Diastolic blood pressure 2022-09-04 17:00:00 84 mm[Hg] [facility] Heart rate 2022-09-04 17:00:00 85 /min [facility] Oxygen saturation in Arterial blood by Pulse oximetry 2022-09-04 17:00:00 94 /min [facility] Body temperature 2022-09-04 16:21:00 36.33 Chen [facility] Respiratory rate 2022-09-04 16:21:00 18 /min [facility] Body height 2022-09-03 22:04:00 170.2 cm [facility] Body weight 2022-09-03 22:04:00 122.834 kg [facility] BMI 2022-09-03 22:04:00 42.41 kg/m2 [facility] Systolic blood pressure 2022-04-23 18:00:00 109 mm[Hg] [facility] Diastolic blood pressure 2022-04-23 18:00:00 56 mm[Hg] [facility] Heart rate 2022-04-23 18:00:00 85 /min [facility] Respiratory rate 2022-04-23 18:00:00 20 /min [facility] Oxygen saturation in Arterial blood by Pulse oximetry 2022-04-23 17:00:00 97 /min [facility] Body temperature 2022-04-23 16:30:00 36.72 Chen [facility] Body height 2022-04-21 22:46:00 170.2 cm [facility] Body weight 2022-04-21 22:46:00 113.399 kg [facility] BMI 2022-04-21 22:46:00 39.16 kg/m2 [facility] Systolic blood pressure 2021-09-30 18:36:00 125 mm[Hg] [facility] Diastolic blood pressure 2021-09-30 18:36:00 81 mm[Hg] [facility] Heart rate 2021-09-30 18:36:00 120 /min [facility] Body temperature 2021-09-30 18:36:00 36.61 Chen [facility] Body height 2021-09-30 18:36:00 170.2 cm [facility] Body weight 2021-09-30 18:36:00 99.066 kg [facility] BMI 2021-09-30 18:36:00 34.21 kg/m2 [facility] Oxygen saturation in Arterial blood by Pulse oximetry 2021-09-30 18:36:00 93 /min [facility] Procedures Procedure Date / Time Performed Performing Clinician Source REAGENT STRIP/BLOOD GLUCOSE 2023-04-17 00:00:00 Outside, Reported Maisha Moy - External TELERETINAL DIABETIC SCREENING 2023-04-02 15:16:00 John Sequeira - External POCT GLUCOSE (AUTOMATED) 2022-11-12 17:08:00 Cole Love [facility] POCT GLUCOSE (AUTOMATED) 2022-11-12 13:30:00 Cole Love [facility] FERRITIN SERUM 2022-11-12 09:53:00 [facility] (46115[facility] (ALB,T.PRO,BILI T,BU/BC,ALT,AST,ALK PHOS) 2022-11-12 09:53:00 Cholo Love [facility] BASIC METABOLIC PANEL (NA, K, CL, CO2, GLUCOSE, BUN, CREATININE, CA) 2022-11-12 09:53[facility] 2022-11-12 02:07:00 Cole Love zeus [facility] POCT GLUCOSE (AUTOMATED) 2022-11-11 21:59:00 Cole Love [facility] POCT GLUCOSE (AUTOMATED) 2022-11-11 17:08:00 Cole Love zeus [facility] POCT GLUCOSE (AUTOMATED) 2022-11-11 13:19:00 Cole Love zeus [facility] MAGNESIUM 2022-11-11 10:21:00 Cholo Love [facility] HEPATIC FUNCTION PANEL ([id number]) (ALB,T.PRO,BILI T,BU/BC,ALT,AST,ALK PHOS) 2022-11-11 10:21:00 Cholo Love [facility] BASIC METABOLIC PANEL (NA, K, CL, CO2, GLUCOSE, BUN, CREATININE, CA) 2022-11-11 10:21:00 Natasha [facility] CBC WITH DIFF 2022-11-11 10:21:00 Natasha [facility] POCT GLUCOSE (AUTOMATED) 2022-11-11 02:37:00 Cole Love [facility] POCT GLUCOSE (AUTOMATED) 2022-11-10 22:18:00 Cole Love [facility] US ABDOMEN LIMITED 2022-11-10 21:00:00 [facility] HEPATITIS B SURFACE ANTIBODY 2022-11-10 19:01:00 [facility] HEPATITIS B SURFACE ANTIGEN 2022-11-10 19:01:00 [facility] HCV ANTIBODY 2022-11-10 19:01:[address] [facility] HEPATITIS A VIRUS ANTIBODY IGM 2022-11-10 19:01:00 [facility] POCT GLUCOSE (AUTOMATED) 2022-11-10 [facility] METABOLIC PANEL ([id number]) 2022-11-10 15:00:00 [facility] POCT GLUCOSE (AUTOMATED) 2022-11-10 13:14[facility]22-11-10 03:56:00 Murali Zafar [facility] URINE CULTURE 2022-11-10 03:56:00 Murali Zafar [facility] AC PANEL 20 + LACTIC ACID 2022-11-10 03:47:00 [facility]IP[facility] 2022-11-10 03:46:00 Murali Zafar [facility] TROPONIN I 2022-11-10 03:46:00 Murali Zafar [facility] COMP. METABOLIC PANEL ([id number]) 2022-11-10 03:46:00 [facility] WITH DIFF 2022-11-10 03:46:00 Murali Zafar [facility] N-TERMINAL PRO-BNP 2022-11-10 03:46:00 [facility] ROUTINE & RHYTHM STRIP 2022-11-10 03:16:17 Murali Zafar [facility] POCT GLUCOSE (AUTOMATED) 2022-11-10 03:09:00 Kvng Zafar [facility] POCT GLUCOSE (AUTOMATED) 2022-11-10 02:59:00 Kvng Zafar [facility] CONSENT/REFUSAL FOR DIAGNOSIS AND TREATMENT 2022-11-10 02:39:20 Doctor Unassigned, [place] [facility] POCT GLUCOSE (AUTOMATED) 2022-11-07 22:01:00 Yarely Francisco [facility] POCT GLUCOSE (AUTOMATED) 2022-11-07 17:28:00 Yarely Francisco [facility] POCT GLUCOSE (AUTOMATED) 2022-11-07 14:16:00 Yarely Francisco [facility] PHOSPHORUS 2022-11-07 11:33:00 Dar Leal [facility] BETA HYDROXY-BUTYRATE 2022-11-07 11:33:00 Zeyad Leal [facility] BASIC METABOLIC PANEL (NA, K, CL, CO2, GLUCOSE, BUN, CREATININE, CA) 2022-11-07 11:33:00 Dar Leal [facility] POCT GLUCOSE (AUTOMATED) 2022-11-07 03:32:00 Yarely Francisco [facility] POCT GLUCOSE (AUTOMATED) 2022-11-06 22:56:00 Abby Palomino [facility] BETA HYDROXY-BUTYRATE 2022-11-06 20:25:00 Jose Miguel Tony [facility] BASIC METABOLIC PANEL (NA, K, CL, CO2, GLUCOSE, BUN, CREATININE, CA) 2022-11-06 20:25:00 Ankur [facility] POCT GLUCOSE (AUTOMATED) 2022-11-06 16:15:00 Abby Palomino [facility] BASIC METABOLIC PANEL (NA, K, CL, CO2, GLUCOSE, BUN, CREATININE, CA) 2022-11-06 11:53:00 Ankur [facility] MRSA / MSSA SCREEN BY PCRVIMAL 2022-11-06 11:53:00 Ankur [facility] POCT GLUCOSE (AUTOMATED) 2022-11-06 11:26:00 Abby Palomino [facility] POCT GLUCOSE (AUTOMATED) 2022-11-06 09:26:00 Kvng Zafar [facility] POCT GLUCOSE(AGE >30DAYS) 2022-11-06 08:15:00 Murali Zafar [facility] PHOSPHORUS 2022-11-06 07:25:00 Murali Zafar [facility] MAGNESIUM 2022-11-06 07:25:00 [facility] OSMOLALITY, SERUM OR PLASMA 2022-11-06 07:25:00 Murali Zafar [facility] BETA HYDROXY-BUTYRATE 2022-11-06 07:25:00 Leif Zafar [facility] BASIC METABOLIC PANEL (NA, K, CL, CO2, GLUCOSE, BUN, CREATININE, CA) 2022-11-06 07:25:00 Murali Zafar [facility] LIPID PANEL ([id number])(TOTAL CHOLESTEROL, TRIGLYCERIDES, HDL) 2022-11-06 07:25:00 Monae Pascual [facility] GLYCOSYLATED HEMOGLOBIN (A1C) 2022-11-06 07:25:00 Murali Zafar [facility] POCT GLUCOSE(AGE >30DAYS) 2022-11-06 06:58:00 Murali Zafar [facility] POCT GLUCOSE (AUTOMATED) 2022-11-06 06:55:00 [facility] 2022-11-06 06:50:18 Murali Zafar [facility] AC PANEL 20 + LACTIC ACID 2022-11-06 06:14:00 Murali Zafar [facility] CT ABDOMEN PELVIS W CONTRAST 2022-11-06 06:05:19 Murali Zafar [facility] CT CHEST PULMONARY ANGIOGRAM 2022-11-06 06:05:19 Murali Zafar [facility] BLOOD CULTURE SCREEN 2022-11-06 04:51:00 Juan Zafar [facility] LACTIC ACID WHOLE BLOOD 2022-11-06 04:50:00 Do araceli Zafar [facility] XR CHEST 1 VW 2022-11-06 04:21:53 Murali Zafar [facility] LIPASE 2022-11-06 04:08:00 Murali Zafar [facility] TROPONIN I 2022-11-06 04:08:00 Zafar, Murali [facility] COMP. METABOLIC PANEL ([id number]) 2022-11-06 04:08:00 Murali Zafar [facility] CBC WITH DIFF 2022-11-06 04:08:00 Murali Zafar [facility] URINALYSIS 2022-11-06 04:08:00 Murali Zafar [facility] URINE CULTURE 2022-11-06 04:08:00 Murali Zafar [facility] RAPID INFLUENZA A/B 2022-11-06 04:08:00 Emma Zafar [facility] N-TERMINAL PRO-BNP 2022-11-06 04:08:00 Murali Zafar [facility] COVID-19 (ID NOW RAPID TESTING) 2022-11-06 04:08:00 Murali Zafar [facility] LAB ONLY COVID INTERPRETATION 2022-11-06 04:08:00 Murali Zafar [facility] CONSENT/REFUSAL FOR DIAGNOSIS AND TREATMENT 2022-11-06 03:03:01 Doctor Unassigned, [place] [facility] HOSPITAL ADMISSION 2022-11-05 06:01:00 Doctor Un assigned, [place] [facility] POCT GLUCOSE (AUTOMATED) 2022-09-04 16:52:00 Kvng Mcallister [facility] US GALL BLADDER 2022-09-04 15:00:00 Jaxon Sutton [facility] POCT GLUCOSE (AUTOMATED) 2022-09-04 12:51:00 Kvng Mcallister [facility] TROPONIN I 2022-09-04 11:06:00 Jaxon Sutton [facility] COMP. METABOLIC PANEL ([id number]) 2022-09-04 11:06:00 Jaxon Sutton [facility] ACUTE CARE VENOUS BLOOD GAS 2022-09-04 11:06:00 Jaxon Sutton [facility] CBC WITH DIFF 2022-09-04 11:06:00 [facility] N-TERMINAL PRO-BNP 2022-09-04 11:06:00 Jaxon Sutton [facility] PHOSPHORUS 2022-09-04 05:55:00 Lesley kristin [facility] URIC ACID 2022-09-04 05:55:00 Lesley kristin [facility] MAGNESIUM 2022-09-04 05:55:[address] [facility] TROPONIN I 2022-09-04 05:55:[address] [facility] THYROID STIMULATING HORMONE 2022-09-04 05:55:00 Lesley [facility] LIPID PANEL ([id number])(TOTAL CHOLESTEROL, TRIGLYCERIDES, HDL) 2022-09-04 05:55:00 Lesley [facility] SEDIMENTATION RATE 2022-09-04 05:55:00 Lesley [facility] PROTHROMBIN TIME / INR 2022-09-04 05:55:[address] [facility] HEPATITIS B SURFACE ANTIBODY 2022-09-04 05:55:00 Lesley [facility] HEPATITIS B SURFACE ANTIGEN 2022-09-04 05:55:00 Lesley [facility] HCV ANTIBODY 2022-09-04 05:55:[address] [facility] HAV ANTIBODY (IGG AND IGM) 2022-09-04 05:55:00 Lesley [facility] PROCALCITONIN 2022-09-04 05:55:00 [facility] POCT GLUCOSE (AUTOMATED) 2022-09-04 05:31:00 Kvng Mcallister [facility] XR CHEST 1 VW 2022-09-03 22:42:00 Murali Zafar [facility] LIPASE 2022-09-03 22:26:00 [facility] TROPONIN I 2022-09-03 22:26:00 [facility] COMP. METABOLIC PANEL ([id number]) 2022-09-03 22:26:00 Murali Zafar [facility] CBC WITH DIFF 2022-09-03 22:26:00 Murali Zafar [facility] GLYCOSYLATED HEMOGLOBIN (A1C) 2022-09-03 22:26:00 Jaxon Sutton [facility] ACTIVATED PARTIAL THRMPLAS KAR 2022-09-03 22:26:00 Murali Zafar [facility] N-TERMINAL PRO-BNP 2022-09-03 22:26:00 Murali Zafar [facility] NOTICE OF PRIVACY PRACTICES 2022-09-03 21:52:55 Doctor Unassigned, [place] [facility] CONSENT/REFUSAL FOR DIAGNOSIS AND TREATMENT 2022-09-03 21:52:24 Doctor Unassigned, [place] [facility] POCT GLUCOSE (AUTOMATED) 2022-04-23 18:58:00 Cole Love [facility] POCT GLUCOSE (AUTOMATED) 2022-04-23 15:35:00 Cole Love [facility] POCT GLUCOSE (AUTOMATED) 2022-04-23 12:41:00 Cole Love [facility] POCT GLUCOSE (AUTOMATED) 2022-04-23 11:33:00 Cole Love [facility] MAGNESIUM 2022-04-23 09:33:00 Sachin Mcallister [facility] BASIC METABOLIC PANEL (NA, K, CL, CO2, GLUCOSE, BUN, CREATININE, CA) 2022-04-23 09:33:00 Sachin Mcallister [facility] POCT GLUCOSE (AUTOMATED) 2022-04-23 09:33:00 Cole Love [facility] POCT GLUCOSE (AUTOMATED) 2022-04-23 07:17:00 Cole Love [facility] POCT GLUCOSE (AUTOMATED) 2022-04-23 05:25:00 Cole Love [facility] POCT GLUCOSE (AUTOMATED) 2022-04-23 04:07:00 Cole Love [facility] POCT GLUCOSE (AUTOMATED) 2022-04-23 03:09:00 Cole Love [facility] POCT GLUCOSE (AUTOMATED) 2022-04-23 02:22:00 Cole Love [facility] BASIC METABOLIC PANEL (NA, K, CL, CO2, GLUCOSE, BUN, CREATININE, CA) 2022-04-23 01:15:00 Annette Holland [facility] POCT GLUCOSE (AUTOMATED) 2022-04-23 01:15:00 Cole Love [facility] POCT GLUCOSE (AUTOMATED) 2022-04-23 00:02:00 Cole Love [facility] POCT GLUCOSE (AUTOMATED) 2022-04-22 23:01:00 Kvng Mcallister [facility] POCT GLUCOSE (AUTOMATED) 2022-04-22 22:05:00 Kvng Mcallister [facility] BASIC METABOLIC PANEL (NA, K, CL, CO2, GLUCOSE, BUN, CREATININE, CA) 2022-04-22 21:05:00 Annette Holland [facility] POCT GLUCOSE (AUTOMATED) 2022-04-22 21:02:00 [facility] POCT GLUCOSE (AUTOMATED) 2022-04-22 19:45:00 [facility] POCT GLUCOSE (AUTOMATED) 2022-04-22 18:42:00 [facility] POCT GLUCOSE (AUTOMATED) 2022-04-22 17:22:00 Cole Love [facility] POCT GLUCOSE (AUTOMATED) 2022-04-22 16:05:00 Cole Love [facility] TROPONIN I 2022-04-22 15:33:00 [facility] (NA, K, CL, CO2, GLUCOSE, BUN, CREATININE, CA) 2022-04-22 15:33:00 Annette Holland [facility] CBC WITH DIFF 2022-04-22 15:33:00 Cholo Love [facility] POCT GLUCOSE (AUTOMATED) 2022-04-22 14:25:00 Cole Love [facility] POCT GLUCOSE (AUTOMATED) 2022-04-22 13:39:00 Cole Love [facility] POCT GLUCOSE (AUTOMATED) 2022-04-22 12:26:00 Cole Love [facility] POCT GLUCOSE (AUTOMATED) 2022-04-22 11:30:00 Cole Love [facility] BASIC METABOLIC PANEL (NA, K, CL, CO2, GLUCOSE, BUN, CREATININE, CA) 2022-04-22 10:51:00 Annette Holland [facility] POCT GLUCOSE (AUTOMATED) 2022-04-22 10:47:00 Cole Love [facility] POCT GLUCOSE (AUTOMATED) 2022-04-22 10:44:00 Cole Love [facility] POCT GLUCOSE (AUTOMATED) 2022-04-22 09:32:00 Cole Love [facility] POCT GLUCOSE (AUTOMATED) 2022-04-22 08:34:00 Cole Love [facility] BASIC METABOLIC PANEL (NA, K, CL, CO2, GLUCOSE, BUN, CREATININE, CA) 2022-04-22 07:39:00 Annette Holland [facility] POCT GLUCOSE (AUTOMATED) 2022-04-22 07:33:00 Cole Love [facility] POCT GLUCOSE (AUTOMATED) 2022-04-22 06:29:00 Cole Love [facility] BASIC METABOLIC PANEL (NA, K, CL, CO2, GLUCOSE, BUN, CREATININE, CA) 2022-04-22 05:30:00 Annette Holland [facility] POCT GLUCOSE (AUTOMATED) 2022-04-22 05:29:00 Cole Love [facility] POCT GLUCOSE (AUTOMATED) 2022-04-22 04:32:00 Cole Love [facility] POCT GLUCOSE (AUTOMATED) 2022-04-22 03:40:00 Cole Love [facility] MRSA / MSSA SCREEN BY PCRVIMAL 2022-04-22 03:30:00 Cholo Love [facility] LACTIC ACID WHOLE BLOOD 2022-04-22 03:09:00 Erick Love [facility] POCT GLUCOSE (AUTOMATED) 2022-04-22 02:14:00 Cole Love [facility] COVID-19 (ID NOW RAPID TESTING) 2022-04-22 01:25[facility] 2022-04-22 01:25:00 [facility] URINALYSIS 2022-04-22 01:23:00 [facility]yler [facility] BASIC METABOLIC PANEL (NA, K, CL, CO2, GLUCOSE, BUN, CREATININE, CA) 2022-04-22 [facility]:14[facility] PLASMA 2022-04-22 01:11[facility]-BUTYRATE 2022-04-22 01:11:00 Eli Holland [facility] POCT GLUCOSE (AUTOMATED) 2022-04-22 01:08:00 Cole Love [facility] CT ABDOMEN PELVIS W CONTRAST 2022-04-22 00:25:33 [facility] XR CHEST 1 VW 2022-04-22 00:18:00 Annette Holland [facility] AC PANEL 21 + LACTIC ACID 2022-04-22 00:04:00 [facility] URINALYSIS 2022-04-21 23:11:00 [facility] PHOSPHORUS 2022-04-21 23:05:00 [facility] LIPASE 2022-04-21 23:05:00 [facility] MAGNESIUM 2022-04-21 23:05:00 [facility] TROPONIN I 2022-04-21 23:05:00 [facility] COMP. METABOLIC PANEL (91194) 2022-04-21 23:05:00 [facility] CBC WITH DIFF 2022-04-21 23:05:00 Annette Holland [facility] GLYCOSYLATED HEMOGLOBIN (A1C) 2022-04-21 23:05:00 [facility] PROTHROMBIN TIME / INR 2022-04-21 23:05:00 Haylee Holland [facility] N-TERMINAL PRO-BNP 2022-04-21 23:05:00 Nelly Holland [facility] HB ECG ROUTINE & RHYTHM STRIP 2022-04-21 22:57:52 Annette Holland [facility] CONSENT/REFUSAL FOR DIAGNOSIS AND TREATMENT 2022-04-21 22:36:06 Doctor Unassigned, [place] [facility] NOTICE OF PRIVACY PRACTICES 2022-04-21 22:34:32 Doctor Unassigned, [place] [facility] Encounters Start Date/Time End Date/Time Encounter Type Admission Type Attending [facility] Care Department Encounter ID Source 2023-11-18 09:30:00 2023-11-18 09:30:00 Outpatient WENDY MORENO [id number] [facility] 2023-11-10 15:15:00 2023-11-10 15:15:00 Outpatient WENDY MORENO [id number] [facility] 2023-11-06 00:00:00 2023-11-06 00:00:00 Outpatient MAISHA EVANS [id number] [facility] 2023-10-27 00:00:00 2023-10-27 00:00:00 Outpatient MAISHA EVANS [id number] [facility] 2023-09-24 00:00:00 2023-09-24 00:00:00 Outpatient JOHN SEQUEIRA [id number] [facility] 2023-08-07 15:15:00 2023-08-07 15:15:00 [facility] [id number] [facility]23-07-31 16:45:00 2023-07-31 16:45:00 Out[facility] [id number] [facility] 2023-06-26 14:40:00 2023-06-26 14:40:00 Outpatient LYUBOV FERNÁNDEZ [id number] [facility] 2023-05-14 00:00:00 2023-05-14 00:00:00 Outpatient MD MAISHA MEADE [id number] Maisha [facility] 2023-04-23 16:00:00 2023-04-23 16:00:00 Outpatient ROHINI CHAMBERS MAISHA EVANS [id number] Maisha Seybold 2023-04-23 13:30:00 2023-04-23 13:30:00 Outpatient JOHN SEQUEIRA MAISHA EVANS [id number] [facility] Seybold 2023-04-21 08:00:00 2023-04-21 08:00:00 Outpatient HUNDL, MARCELLE EVANS [id number] Maisha Seybold 2023-04-17 09:15:00 2023-04-17 09:15:00 Outpatient WENDY MORENO [id number] Maisha Seybold 2023-04-16 00:00:00 2023-04-16 00:00:00 Outpatient MD MAISHA MEADE [id number] Maisha Seybold 2023-04-14 00:00:00 2023-04-14 00:00:00 Outpatient HUNDL, MARCELLE EVANS [id number] Maisha Seybold 2023-04-10 00:00:00 2023-04-10 00:00:00 Outpatient HUNDL, MARCELLE EVANS [id number] Maisha Seybold 2023-04-09 00:00:00 2023-04-09 00:00:00 Outpatient HUNDL, MARCELLE EVANS [id number] Maisha Seybold 2023-04-08 08:00:00 2023-04-08 08:00:00 Outpatient HUNDL, MARCELLE EVANS [id number] Maisha Seybold 2023-04-08 00:00:00 2023-04-08 00:00:00 Outpatient MAISHA RIVERS [id number] Maisha Seybold 2023-04-08 00:00:00 2023-04-08 00:00:00 Outpatient WENDY MORENO [id number] Maisha Seybold 2023-04-08 00:00:00 2023-04-08 00:00:00 Outpatient RADHA GAMINO [id number] Maish[facility] 2023-04-07 00:00:00 2023-04-07 00:00:00 Outpatient JOHN SEQUEIRA MAISHA [id number] Maisha [facility] 2023-04-02 10:20:00 2023-04-02 10:20:00 Outpatient YINKA EVANS MAISHA [id number] Maisha Moy 2023-04-02 09:00:00 2023-04-02 09:00:00 Outpatient JOHN SEQUEIRA MAISHA MAISHA [id number] Maisha Moy 2023-04-02 00:00:00 2023-04-02 00:00:00 Outpatient AKBAR JERZE MAISHA EVANS [id number] [facility] 2022-11-13 00:00:00 2022-11-13 00:00:00 Transition of Care Florence Botello 1.0.114 350.1.13.10 4.2.7.2.686 [id number] [facility] 2022-11-09 21:02:00 2022-11-12 15:36:00 Inpatient X CHOLO LOVE [facility] JOSE ENRIQUE [id number] [facility] 2022-11-09 21:02:00 2022-11-12 15:36:00 Hospital Encounter Murali Zafar [place], Jelani [facility] 1..114 350.1.13.10 4.2.7.2.686 [id number] [facility] 2022-11-12 00:00:00 2022-11-12 00:00:00 Telephone Nata Vu [facility] 1..114 350.1.13.10 4.2.7.2.686 [id number] [facility] 2022-11-10 00:00:00 2022-11-10 00:00:00 Transition of Care Florence Botello 1.0.114 350.1.13.10 4.2.7.2.686 [id number] [facility] 2022-11-05 21:27:00 2022-11-07 17:37:00 Inpatient X JON FRANCISCO [facility] [id number] [facility] 2022-11-05 21:27:00 2022-11-07 17:37:00 Hospital Encounter Murali Zafar Joseph Henrie, Bradley [facility] 1..840.114 350.1.13.10 4.2.7.2.686 [id number] [facility] 2022-10-31 13:11:41 2022-10-31 13:11:41 Outpatient SFA SFA [id number] [facility] 2022-09-24 08:23:00 2022-09-24 08:23:00 Outpatient Lukasz Bejarano [facility] ENDO [id number] [facility] 2022-09-08 00:00:00 2022-09-08 00:00:00 Outpatient JAXON MONIQUE [facility] [id number] [facility] 2022-09-03 17:08:00 2022-09-04 13:45:00 Outpatient JAI PARKER [facility] [id number] [facility] 2022-09-03 17:08:00 2022-09-04 13:45:00 Emergency Murali Zafar David Abdullah, Yaman [facility] ..840.114 350.1.13.10 4.2.7.2.686 [id number] [facility] 2022-08-20 19:28:00 2022-08-20 19:28:00 Outpatient Sang Franklin [facility] CPUL [id number] [facility] 2022-04-24 00:00:00 2022-04-24 00:00:00 Transition of Care Florence Botello 1.2.840.114 350.1.13.10 4.2.7.2.686 [id number] [facility] 2022-04-21 17:49:00 2022-04-23 15:15:00 Inpatient Mj SACHIN MCALLISTER [facility] JOSE ENRIQUE [id number] [facility] 2022-04-21 17:49:00 2022-04-23 15:15:00 Hospital Encounter Annette Holland, Sachin Brush [facility] 1.0.114 350.1.13.10 4.2.7.2.686 [id number] [facility] 2021-12-24 00:00:00 2021-12-24 00:00:00 Outpatient [facility] PIJFIFFDTZ 5 [facility] 2021-09-30 14:00:00 2021-09-30 14:00:00 Outpatient GERSON PISANO [facility] [id number] [facility] 2021-09-30 13:25:55 2021-09-30 13:55:55 Office Visit Dustin Cervantes Joseph Marc [facility] 1.840.114 350.1.13.10 4.2.7.2.686 [id number] [facility] 2021-09-30 00:00:00 2021-09-30 00:00:00 Orders Only Doctor Unassigned, [place] [facility] 1.2840.114 350.1.13.10 4.2.7.2.686 [id number] [facility] 2021-08-09 00:00:00 2021-08-09 00:00:00 Orders Only Doctor Unassigned, [place] [facility] 1.2840.114 350.1.13.10 4.2.7.2.686 [id number] [facility] 2021-07-02 15:02:00 2021-07-02 21:52:00 Emergency Marlene Taylor [facility] 1.2.840.114 350.1.13.10 4.2.7.2.686 [id number] [facility] 2021-07-02 14:36:00 2021-07-02 14:36:00 Emergency X [facility] ERT [id number] [facility] Results Test Description Test Time Test Comments Results Result Co mments Source Maisha Seybold - ExternalTELERETINAL DIABETIC [id number] 15:16:00* Test Item Value Reference Range Interpretation Comme nts IMP (test code = IMP) 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 PlanRepeat diabetic retinopathy screening in 1 year Lab Interpretation (test code = 06414-6) Abnormal Maisha Goddardybold - ExternalPOCT GLUCOSE (AUTOMATED)2022-11-12 17:36:05* Test Item Value Reference Range Interpretation Comme nts POCT GLU (test code = 2994363714) 186 mg/dL 70-110 H Lab Interpretation (test cod e = 96016-9) [facility] 14:01:05* Test Item Value Reference Range Interpretation Comme nts POCT GLU (test code = 2631503917) 143 mg/dL 70-110 H Lab Interpretation (test cod e = 37268-3) [facility]-12 02:11:38* Test Item Value Reference Range Interpretation Comme nts POCT GLU (test code = 1902598441) 185 mg/dL 70-110 H Lab Interpretation (test cod e = 15714-8) [facility]2022-11-11 22:21:02* Test Item Value Reference Range Interpretation Comme nts POCT GLU (test code = 2382459778) 153 mg/dL 70-110 H Lab Interpretation (test cod e = 61112-4) [facility]22-[facility]-11 17:34:44* Test Item Value Reference Range Interpretation Comme nts POCT GLU (test code = 2694355504) 158 mg/dL 70-110 H Lab Interpretation (test cod e = 88846-4) [facility] 13:54:40* Test Item Value Reference Range Interpretation Comme nts POCT GLU (test code = 5726421418) 145 mg/dL 70-110 H Lab Interpretation (test cod e = 56959-4) [facility]2022-11-11 02:46:38* Test Item Value Reference Range Interpretation Comme nts POCT GLU (test code = 1311586603) 230 mg/dL 70-110 H Lab Interpretation (test cod e = 61208-1) [facility])2022-11-10 22:41:53* Test Item Value Reference Range Interpretation Comme nts POCT GLU (test code = 8932959101) 161 mg/dL 70-110 H Lab Interpretation (test cod e = 97522-3) [facility]2022-11-10 22:09:00* Test Item Value Reference Range Interpretation Comme nts POCT GLU (test code = 6730897586) 140 mg/dL 70-110 H Lab Interpretation (test cod e = 97219-1) [facility]2022-11-10 14:40:30* Test Item Value Reference Range Interpretation Comme nts POCT GLU (test code = 2437533318) 140 mg/dL 70-110 H Lab Interpretation (test cod e = 91584-6) [facility]2022-11-10 13:39:06* Test Item Value Reference Range Interpretation Comme nts POCT GLU (test code = 4320996373) 129 mg/dL 70-110 H Lab Interpretation (test cod e = 41166-1) [facility]2022-11-10 03:12:17* Test Item Value Reference Range Interpretation Comme nts POCT GLU (test code = 8136137628) 142 mg/dL 70-110 H Lab Interpretation (test cod e = 58610-2) Abnormal [facility] GLUCOSE (AUTOMATED)2022-11-07 22:01:53* Test Item Value Reference Range Interpretation Comme nts POCT GLU (test code = 0204064798) 150 mg/dL 70-110 H Lab Interpretation (test cod e = 49178-2) Abnormal [facility] GLUCOSE (AUTOMATED)2022-11-07 17:30:01* Test Item Value Reference Range Interpretation Comme nts POCT GLU (test code = 2988362057) 178 mg/dL 70-110 H Lab Interpretation (test cod e = 16549-1) Abnormal [facility] GLUCOSE (AUTOMATED)2022-11-07 14:17:47* Test Item Value Reference Range Interpretation Comme nts POCT GLU (test code = 0386435638) 156 mg/dL 70-110 H Lab Interpretation (test cod e = 08092-9) Abnormal [facility] GLUCOSE (AUTOMATED)2022-11-07 03:33:30* Test Item Value Reference Range Interpretation Comme nts POCT GLU (test code = 7230675370) 153 mg/dL 70-110 H Lab Interpretation (test cod e = 37510-6) Abnormal [facility] GLUCOSE (AUTOMATED)2022-11-06 22:57:40* Test Item Value Reference Range Interpretation Comme nts POCT GLU (test code = 3332657925) 139 mg/dL 70-110 H Lab Interpretation (test cod e = 11444-7) [facility]normal [facility] [id number] 22:26:29* Test Item Value Reference Range Interpretation Comme nts BOH (test code = 0016393165) 3.0 mmol/L ZULEIMA (test code = ZULEIMA) Normal Ranges: ? ? Nonfasting ? Less than 0.1 mmol/L ? ? Overnight Fast ? ? ? Less than 0.4 mmol/L ? ? Fasting (1-2 weeks) ?6-8 mmol/L Test developed and characteristics determined by [facility] Laboratory Services. [facility] Metabolic Panel (Na, K, Cl, CO2, Glucose, BUN, Creatinine, Ca)2022-11-06 21:22:03* Test Item Value Reference Range Interpretation Comme nts NA (test code = 9384770144) 136 mmol/L 135-145 K (test code = 9273594159) 3.9 mmol/L 3.5-5.0 Slight hemolysis CL (test code = 0712923146) 109 mmol/L 98-108 H CO2 TOTAL (test code = 4249110850) 15 mmol/L 23-31 L AGAP (test code = 9675905778) 2-16 BUN (test code = 5735543766) 7-23 L Slight hemolysis GLUCOSE (test code = 2631427289) 171 mg/dL 70-110 H CREATININE (test code = 1710714574) 0.49 mg/dL 0.60-1.25 L CALCIUM (test code = 0221335699) 7.9 mg/dL 8.6-10.6 L eGFR (test code = 5510703241) mL/min/1.73m2 ZULEIMA (test code = ZULEIMA) Association of [...] or abnormalities in imaging tests). Lab Interpretation (test code = 33965-3) Abnormal [facility] GLUCOSE (AUTOMATED)2022-11-06 16:16:50* Test Item Value Reference Range Interpretation Comme nts POCT GLU (test code = 3971227804) 163 mg/dL 70-110 H Lab Interpretation (test cod e = 26078-8) Abnormal [facility] Metabolic Panel (Na, K, Cl, CO2, Glucose, BUN, Creatinine, Ca)2022-11-06 12:51:08* Test Item Value Reference Range Interpretation Comme [facility] NA (test code = 0026068194) 135 mmol/L 135-145 K (test code = 7502681931) 4.7 mmol/L 3.5-5.0 Slight hemolysis CL (test code = 5931582310) 110 mmol/L 98-108 H CO2 TOTAL (test code = 1042554713) 12 mmol/L 23-31 L AGAP (test code = 1008313309) 2-16 BUN (test code = 4994370110) 3 mg/dL 7-23 L Slight hemolysis GLUCOSE (test code = 5891945447) 152 mg/dL 70-110 H CREATININE (test code = 1183476289) 0.62 mg/dL 0.60-1.25 CALCIUM (test code = 6835794541) 8.3 mg/dL 8.6-10.6 L eGFR (test code = 7885177189) mL/min/1.73m2 ZULEIMA (test code = ZULEIMA) Association of [...] or abnormalities in imaging tests). Lab Interpretation (test code = 70437-2) Abnormal [facility] GLUCOSE (AUTOMATED)2022-11-06 11:27:27* Test Item Value Reference Range Interpretation Comme nts POCT GLU (test code = 7021894265) 139 mg/dL 70-110 H Lab Interpretation (test cod e = 32129-7) Abnormal [facility] GLUCOSE (AUTOMATED)2022-11-06 09:28:37* Test Item Value Reference Range Interpretation Comme nts POCT GLU (test code = 9667404142) 137 mg/dL 70-110 H Lab Interpretation (test cod e = 70963-9) Abnormal [facility] GLUCOSE(AGE >30DAYS)2022-11-06 08:15:00* Test Item Value Reference Range Interpretation Comme nts POCT Glu (age>30days) (test code = 3342) 107 mg/dL 70-110 Lab Interpretation (test cod e = 49940-9) Normal [facility] GLUCOSE (AUTOMATED)2022-11-06 06:58:20* Test Item Value Reference Range Interpretation Comme nts POCT GLU (test code = 7178110669) 96 mg/dL 70-110 Lab Interpretation (test cod e = 89200-2) Normal [facility] GLUCOSE(AGE >30DAYS)2022-11-06 06:58:00* Test Item Value Reference Range Interpretation Comme nts POCT Glu (age>30days) (test code = 3342) 96 mg/dL 70-110 Lab Interpretation (test cod e = 35887-0) [facility] [id number] 05:12:24* Test Item Value Reference Range Interpretation Comments TROPONIN I (test code = 6596418425) 0.003 ng/mL See_Comment [Automated message] The system which generated this result transmitted reference range: <=0.034. The reference range was not used to interpret this result as normal/abnormal. ZULEIMA (test code = ZULEIMA) Reference (Normal) Range (defined by the 99th percentile reference [...] to patient's use of biotin. Lab Interpretation (test code = 91136-9) Normal [facility] [id number] 05:09:22* Test Item Value Reference Range Interpretation Comme nts NT-proBNP (test code = 1983754258) 58 pg/mL See_Comment [Automated message] The system which generated this result transmitted reference range: <=125. The reference range was not used to interpret this result as normal/abnormal. ZULEIMA (test code = ZULEIMA) Biotin has been reported to cause a negative bias, interpret results relative to patient's use of biotin. Lab Interpretation (test code = 47510-4) Normal [facility]. METABOLIC PANEL (76617)2022-11-06 05:00:43* Test Item Value Reference Range Interpretation Comme nts NA (test code = 8976824894) 135 mmol/L 135-145 K (test code = 6163107053) 4.3 mmol/L 3.5-5.0 CL (test code = 6972750451) 106 mmol/L 98-108 CO2 TOTAL (test code = 7967013877) 11 mmol/L 23-31 L AGAP (test code = 1352171439) 2-16 H BUN (test code = 4459604031) 3 mg/dL 7-23 L GLUCOSE (test code = 5659481848) 129 mg/dL 70-110 H CREATININE (test code = 3225896072) 0.71 mg/dL 0.60-1.25 TOTAL BILI (test code = 3022591655) 1.0 mg/dL 0.1-1.1 CALCIUM (test code = 8003217842) 8.7 mg/dL 8.6-10.6 T PROTEIN (test code = 4580657685) 6.6 g/dL 6.3-8.2 ALBUMIN (test code = 1982969971) 3.9 g/dL 3.5-5.0 ALK PHOS (test code = 5880779356) 85 U/L 34-122 ALTv (test code = 1742-6) 125 U/L 5-50 H AST(SGOT) (test code = 9442544113) 39 U/L 13-40 eGFR (test code = 2798392547) mL/min/1.73m2 ZULEIMA (test code = ZULEIMA) Association of [...] or abnormalities in imaging tests). Lab Interpretation (test code = 61925-1) [facility] 05:00:43* Test Item Value Reference Range Interpretation Comme nts LIPASE (test code = 3041166579) 105 U/L 0-220 Lab Interpretation (test cod e = 56495-8) Normal [facility] WITH [id number] 04:33:58* Test Item Value Reference Range Interpretation Comme nts WBC (test code = 6690-2) See_Comment [Automated messa ge] The system which generated this result transmitted reference range: 4.20 - 10.70 10*3/?L. The reference range was not used to interpret this result as normal/abnormal. RBC (test code = 789-8) See_Comment [Automated messa ge] The system which generated this result transmitted reference range: 4.26 - 5.52 10*6/?L. The reference range was not used to interpret this result as normal/abnormal. HGB (test code = 718-7) 15.2 g/dL 12.2-16.4 HCT (test code = 4544-3) 46.2 % 38.4-49.3 MCV (test code = 787-2) 90.6 fL 81.7-95.6 MCH (test code = 785-6) 29.8 pg 26.1-32.7 MCHC (test code = 786-4) 32.9 g/dL 31.2-35.0 RDW-SD (test code = 54341-2) 47.2 fL 38.5-51.6 RDW-CV (test code = 788-0) 14.2 % 12.1-15.4 PLT (test code = 777-3) See_Comment [Automated messa ge] The system which generated this result transmitted reference range: 150 - 328 10*3/?L. The reference range was not used to interpret this result as normal/abnormal. MPV (test code = 19150-9) 8.5 fL 9.8-13.0 L NRBC/100 WBC (test code = 0458454877) See_Comment [Automated me ssage] The system which generated this result transmitted reference range: 0.0 - 10.0 /100 WBCs. The reference range was not used to interpret this result as normal/abnormal. NRBC x10^3 (test code = 3732659635) See_Comment [Automated messa ge] The system which generated this result transmitted reference range: 10*3/?L. The reference range was not used to interpret this result as normal/abnormal. GRAN MAT (NEUT) % (test code = 770-8) 53.8 % IMM GRAN % (test code = 3549361398) 0.60 % LYMPH % (test code = 736-9) 34.6 % MONO % (test code = 5905-5) 8.3 % EOS % (test code = 713-8) 2.4 % BASO % (test code = 706-2) 0.3 % GRAN MAT x10^3(ANC) (test code = 0235354976) 3.85 10*3/uL 1.99-6.95 IMM GRAN x10^3 (test code = 9759208983) 0.04 10*3/uL 0.00-0.06 LYMPH x10^3 (test code = 731-0) 2.47 10*3/uL 1.09-3.23 MONO x10^3 (test code = 742-7) 0.59 10*3/uL 0.36-1.02 EOS x10^3 (test code = 711-2) 0.17 10*3/uL 0.06-0.53 BASO x10^3 (test code = 704-7) 0.01-0.09 Lab Interpretation (test code = 72654-5) Abnormal [facility]- XR CHEST 1 [id number] 09:27:00 [facility] DOMINIK DANIEL : 1970 Sex: M Name: DANIEL LEHMAN [facility] : 1970 Age/S: 51 / M [id number] Unit #: [id number] Loc: [place] [address] Phys: Randall Veloz MD Acct: [id number] Dis Date: Status: REG [facility] PHONE #: [phone] Exam Date: 09/24/2022909 FAX #: Reason: PRE OP EXAMS: CPT: [id number] XR CHEST 1 V 88112 Fluoro Time: DAP (Gy m2): Air Kerma [...] focal consolidation. Prominence of cardiac silhouette. at 09 Reported and signed by: Sil Hooks M.D. CC: Randall Veloz MD; Lukasz Saul MD PAGE 1 Signed Report Na me: DANIEL LEHMAN [facility] : 1970 Age/S: 51 / M [address] [address] Unit #: [id number] Loc: [place] [id number] Phys: Randall Veloz MD Acct: [id number] Dis Date: [facility] [phone] Exam Date: 09/24/202210 FAX #: Reason: PRE OP EXAMS: CPT: [id number] XR CHEST 1 V 88508 Fluoro Time: DAP (Gy m2): Air Kerma (mGy): (Continued) Technologist: Delano Sorenson, RT(R)(CT) Trnscb Date/Time: 09/24/2022 (926) [email or web address] Orig Print D/T: S: 09/24/2022 (9530) PAGE 2 Signed ReportCBC W/AUTO [id number] 09:06:00* Test Item Value Reference Range Interpretation Comme [...] CONCETRATION (test code = MCHC) 32.0 G/DL 32.1-34.5 L RED CELL DISTRIBUTION WIDTH (test code = RDW) 16.9 SD 11.5-14.5 H PLATELET COUNT (test code = PLT) 259 K/mm3 150-450 N MEAN PLATELET VOLUME (test c ode = MPV) 8.70 fL 7.0-9.6 N NEUTROPHIL [...] K/mm3 0.00-0.01 N MANUAL DIFF REQUIRED (test c ode = MDIFF) NO DIFF/SCN CRITERIA BASIC METABOLIC [id number] 09:00:00* Test Item Value Reference Range Interpretation Comme nts SODIUM (test code = NA) 139 mmol/L 134-147 N POTASSIUM (test code = K) 4.0 mmol/L 3.4-5.0 N CHLORIDE (test code = CL) 105 mmol/L 100-108 N CARBON DIOXIDE (test code = CO2) 27 mmol/L 21-32 N ANION GAP (test code = GAP) 7.0 GAP calc 4.0-15.0 N GLUCOSE (test code = GLU) 169 MG/DL 70-110 H BLOOD UREA NITROGEN (test code = BUN) 14 MG/DL 7-18 N GLOMERULAR FILTRATION RATE (test code = GFR) >=60 max estimate estGFR >60 CREATININE (test code = CREAT) 0.8 MG/DL 0.8-1.3 N CALCIUM (test code = CA) 8.9 MG/DL 8.5-10.1 N COVID 19 INHOUSE [id number] 08:52:00* Test Item Value Reference Range Interpretation Comme nts COVID 19 INHOUSE AG (test code = [id number]) NEGATIVE Negative Per timber feller , negative results should be treated aspresumptive and, if inconsistent with clinical signs andsymptoms or necessary for patient management, should betested with an alternative molecular assay. Negative resultsdo not preclude SARS-CoV-2 infection and should not be usedas the sole basis for patient management decisions. Negative results should be considered in the context of apatient's recent exposures, history, presence of clinicalsigns and symptoms consistent with COVID-19. POCT GLUCOSE (AUTOMATED)2022-09-04 16:57:56* Test Item Value Reference Range Interpretation Comme nts POCT GLU (test code = 7274290947) 193 mg/dL 70-110 H Lab Interpretation (test cod e = 79924-6) Abnormal [facility] GLUCOSE (AUTOMATED)2022-09-04 13:42:12* Test Item Value Reference Range Interpretation Comme nts POCT GLU (test code = 5365069635) 185 mg/dL 70-110 H Lab Interpretation (test cod e = 39873-8) [facility] 05:36:51* Test Item Value Reference Range Interpretation Comme [facility] POCT GLU (test code = 2838812807) 204 mg/dL 70-110 H Lab Interpretation (test cod e = 25684-7) [facility] (A1C)2022-09-04 05:24:19* Test Item Value Reference Range Interpretation Comme [facility] HGB A1C (test code = 4548-4) 9.2 % 4-5.7 H ZULEIMA (test code = ZULEIMA) Reference RangesNormal: <5.7%Prediabetes: 5.7 - 6.4%Diabetes: > 6.5% Lab Interpretation (test code = 34545-3) [facility] [id number] 22:58:29* Test Item Value Reference Range Interpretation Comments TROPONIN I (test code = 9114609197) 0.002 ng/mL See_Comment [Automated message] The system which generated this result transmitted reference range: <=0.034. The reference range was not used to interpret this result as normal/abnormal. ZULEIMA (test code = ZULEIMA) Reference (Normal) Range (defined by the 99th percentile reference [...] to patient's use of biotin. Lab Interpretation (test code = 10436-8) Normal [facility] [id number] 22:55:11* Test Item Value Reference Range Interpretation Comme nts NT-proBNP (test code = 8783504285) 29 pg/mL See_Comment [Automated message] The system which generated this result transmitted reference range: <=125. The reference range was not used to interpret this result as normal/abnormal. ZULEIMA (test code = ZULEIMA) Biotin has been reported to cause a negative bias, interpret results relative to patient's use of biotin. Lab Interpretation (test code = 65491-9) Normal [facility] THRM[facility] [id number] 22:51:28* Test Item Value Reference Range Interpretation Comme nts APTT Patient (test code = 3173-2) See_Comment L [Automated message] The system which generated this result transmitted reference range: 23 - 38 Seconds. The reference range was not used to interpret this result as normal/abnormal. ZULEIMA (test code = ZULEIMA) The [facility] patient population mean normal value for aPTT is 30 seconds. Lab Interpretation (test code = 89824-2) [facility]OLIC PANEL (38114)2022-09-03 22:46:28* Test Item Value Reference Range Interpretation Comme nts NA (test code = 5840085101) 137 mmol/L 135-145 K (test code = 9862012781) 5.1 mmol/L 3.5-5 H CL (test code = 6243112884) 103 mmol/L 98-108 CO2 TOTAL (test code = 8668269116) 21 mmol/L 23-31 L AGAP (test code = 3114136230) 2-16 BUN (test code = 0875255171) 18 mg/dL 7-23 GLUCOSE (test code = 7813992831) 360 mg/dL 70-110 H CREATININE (test code = 8836003396) 0.84 mg/dL 0.6-1.25 TOTAL BILI (test code = 4282731101) 0.7 mg/dL 0.1-1.1 CALCIUM (test code = 8946339372) 9.2 mg/dL 8.6-10.6 T PROTEIN (test code = 0500856588) 6.7 g/dL 6.3-8.2 ALBUMIN (test code = 4057169697) 4.3 g/dL 3.5-5 ALK PHOS (test code = 7309367963) 140 U/L 34-122 H ALTv (test code = 1742-6) 727 U/L 5-50 H AST(SGOT) (test code = 8887169302) 348 U/L 13-40 H eGFR (test code = 3497941006) mL/min/1.73m2 ZULEIMA (test code = ZULEIMA) Association of [...] or abnormalities in imaging tests). Lab Interpretation (test code = 34172-3) [facility] 22:46:09* Test Item Value Reference Range Interpretation Comme nts LIPASE (test code = 1111012217) 252 U/L 0-220 H Lab Interpretation (test cod e = 39539-3) [facility] Hospital[facility] WITH [id number] 22:35:24* Test Item Value Reference Range Interpretation Comme nts WBC (test code = 6690-2) See_Comment [Automated [employer]] The system which generated this result transmitted reference range: 4.20 - 10.70 10*3/?L. The reference range was not used to interpret this result as normal/abnormal. RBC (test code = 789-8) See_Comment [Automated [employer]] The system which generated this result transmitted reference range: 4.26 - 5.52 10*6/?L. The reference range was not used to interpret this result as normal/abnormal. HGB (test code = 718-7) 15.1 g/dL 12.2-16.4 HCT (test code = 4544-3) 46.3 % 38.4-49.3 MCV (test code = 787-2) 86.9 fL 81.7-95.6 MCH (test code = 785-6) 28.3 pg 26.1-32.7 MCHC (test code = 786-4) 32.6 g/dL 31.2-35 RDW-SD (test code = 65032-8) 50.6 fL 38.5-51.6 RDW-CV (test code = 788-0) 16.0 % 12.1-15.4 H PLT (test code = 777-3) See_Comment [Automated [employer]] The system which generated this result transmitted reference range: 150 - 328 10*3/?L. The reference range was not used to interpret this result as normal/abnormal. MPV (test code = 52062-0) 9.1 fL 9.8-13 L NRBC/100 WBC (test code = 1493440538) See_Comment [Automated [employer] ssage] The system which generated this result transmitted reference range: 0.0 - 10.0 /100 WBCs. The reference range was not used to interpret this result as normal/abnormal. NRBC x10^3 (test code = 4125008942) See_Comment [Automated [employer]] The system which generated this result transmitted reference range: 10*3/?L. The reference range was not used to interpret this result as normal/abnormal. GRAN MAT (NEUT) % (test code = 770-8) 74.4 % IMM GRAN % (test code = 7104885850) 1.60 % LYMPH % (test code = 736-9) 17.8 % MONO % (test code = 5905-5) 5.7 % EOS % (test code = 713-8) 0.1 % BASO % (test code = 706-2) 0.4 % GRAN MAT x10^3(ANC) (test code = 1072032986) 6.35 10*3/uL 1.99-6.95 IMM GRAN x10^3 (test code = 1852391729) 0.14 10*3/uL 0-0.06 H LYMPH x10^3 (test code = 731-0) 1.52 10*3/uL 1.09-3.23 MONO x10^3 (test code = 742-7) 0.49 10*3/uL 0.36-1.02 EOS x10^3 (test code = 711-2) 0.06-0.53 L BASO x10^3 (test code = 704-7) 0.03 10*3/uL 0.01-0.09 Lab Interpretation (test code = 28355-1) Abnormal [facility] GLUCOSE (AUTOMATED)2022-04-23 19:01:02* Test Item Value Reference Range Interpretation Comme nts POCT GLU (test code = 7916923775) 174 mg/dL 70-110 H Lab Interpretation (test cod e = 65845-6) Abnormal [facility] GLUCOSE (AUTOMATED)2022-04-23 16:43:23* Test Item Value Reference Range Interpretation Comme nts POCT GLU (test code = 4354250696) 162 mg/dL 70-110 H Lab Interpretation (test cod e = 62302-2) Abnormal [facility] GLUCOSE (AUTOMATED)2022-04-23 15:37:41* Test Item Value Reference Range Interpretation Comme nts POCT GLU (test code = 7899588216) 130 mg/dL 70-110 H Lab Interpretation (test cod e = 08358-4) Abnormal [facility] GLUCOSE (AUTOMATED)2022-04-23 12:54:00* Test Item Value Reference Range Interpretation Comme nts POCT GLU (test code = 4902753885) 135 mg/dL 70-110 H Lab Interpretation (test cod e = 38093-6) Abnormal [facility] METABOLIC PANEL (NA, K, CL, CO2, GLUCOSE, BUN, CREATININE, CA)2022-04-23 11:38:26* Test Item Value Reference Range Interpretation Comme nts NA (test code = 4453439573) 137 mmol/L 135-145 K (test code = 0943257693) 3.2 mmol/L 3.5-5.0 L CL (test code = 4333243257) 110 mmol/L 98-108 H CO2 TOTAL (test code = 1516407741) 19 mmol/L 23-31 L AGAP (test code = 8815744419) 2-16 BUN (test code = 8454329732) <2 7-23 L GLUCOSE (test code = 9132195778) 121 mg/dL 70-110 H CREATININE (test code = 6322309867) 0.67 mg/dL 0.60-1.25 CALCIUM (test code = 7351118044) 7.7 mg/dL 8.6-10.6 L eGFR (test code = 7853223548) mL/min/1.73m2 ZULEIMA (test code = ZULEIMA) Association of [...] or abnormalities in imaging tests). Lab Interpretation (test code = 63559-4) Abnormal [facility] GLUCOSE (AUTOMATED)2022-04-23 11:35:25* Test Item Value Reference Range Interpretation Comme nts POCT GLU (test code = 6044824309) 135 mg/dL 70-110 H Lab Interpretation (test cod e = 01864-3) [facility]2022-[facility] 11:05:56* Test Item Value Reference Range Interpretation Comme nts MAGNESIUM (test code = 3050368667) 1.7 mg/dL 1.7-2.4 Lab Interpretation (test cod e = 77025-2) Normal [facility] GLUCOSE (AUTOMATED)2022-04-23 09:37:57* Test Item Value Reference Range Interpretation Comme nts POCT GLU (test code = 1762294480) 107 mg/dL 70-110 Lab Interpretation (test cod e = 28297-2) Normal [facility] GLUCOSE (AUTOMATED)2022-04-23 07:22:08* Test Item Value Reference Range Interpretation Comme nts POCT GLU (test code = 3049805014) 146 mg/dL 70-110 H Lab Interpretation (test cod e = 62738-6) Abnormal [facility] GLUCOSE (AUTOMATED)2022-04-23 05:29:09* Test Item Value Reference Range Interpretation Comme nts POCT GLU (test code = 9921137712) 142 mg/dL 70-110 H Lab Interpretation (test cod e = 86176-3) Abnormal [facility] GLUCOSE (AUTOMATED)2022-04-23 04:10:18* Test Item Value Reference Range Interpretation Comme nts POCT GLU (test code = 6259640949) 148 mg/dL 70-110 H Lab Interpretation (test cod e = 49378-0) Abnormal [facility] GLUCOSE (AUTOMATED)2022-04-23 02:27:55* Test Item Value Reference Range Interpretation Comme nts POCT GLU (test code = 9897318312) 160 mg/dL 70-110 H Lab Interpretation (test cod e = 82539-0) Abnormal [facility] Metabolic Panel (Na, K, Cl, CO2, Glucose, BUN, Creatinine, Ca)2022-04-23 01:58:18* Test Item Value Reference Range Interpretation Comme nts NA (test code = 0615439379) 137 mmol/L 135-145 K (test code = 3521226192) 3.6 mmol/L 3.5-5.0 CL (test code = 4555459049) 109 mmol/L 98-108 H CO2 TOTAL (test code = 1908297705) 17 mmol/L 23-31 L AGAP (test code = 5038118745) 2-16 BUN (test code = 8516203322) <2 7-23 L GLUCOSE (test code = 9591778299) 162 mg/dL 70-110 H CREATININE (test code = 5667113641) 0.62 mg/dL 0.60-1.25 CALCIUM (test code = 1460123849) 8.2 mg/dL 8.6-10.6 L eGFR (test code = 7520518968) mL/min/1.73m2 ZULEIMA (test code = ZULEIMA) Association of [...] or abnormalities in imaging tests). Lab Interpretation (test code = 84325-7) Abnormal [facility] GLUCOSE (AUTOMATED)2022-04-23 01:21:32* Test Item Value Reference Range Interpretation Comme nts POCT GLU (test code = 7853988189) 142 mg/dL 70-110 H Lab Interpretation (test cod e = 70472-1) Abnormal [facility] GLUCOSE (AUTOMATED)2022-04-23 00:05:03* Test Item Value Reference Range Interpretation Comme nts POCT GLU (test code = 1513533508) 148 mg/dL 70-110 H Lab Interpretation (test cod e = 18133-6) Abnormal [facility] GLUCOSE (AUTOMATED)2022-04-22 23:06:57* Test Item Value Reference Range Interpretation Comme nts POCT GLU (test code = 8065050540) 144 mg/dL 70-110 H Lab Interpretation (test cod e = 80121-4) Abnormal [facility] GLUCOSE (AUTOMATED)2022-04-22 22:12:45* Test Item Value Reference Range Interpretation Comme nts POCT GLU (test code = 1563536461) 145 mg/dL 70-110 H Lab Interpretation (test cod e = 56567-8) [facility] [id number] 21:43:14* Test Item Value Reference Range Interpretation Comments TROPONIN I (test code = 2136568872) 0.003 ng/mL See_Comment [Automated message] The system which generated this result transmitted reference range: <=0.034. The reference range was not used to interpret this result as normal/abnormal. ZULEIMA (test code = ZULEIMA) Reference (Normal) Range (defined by the 99th percentile reference [...] to patient's use of biotin. Lab Interpretation (test code = 26544-2) [facility] (Na, K, Cl, CO2, Glucose, BUN, Creatinine, Ca)2022-04-22 21:31:09* Test Item Value Reference Range Interpretation Comme nts NA (test code = 5307688078) 134 mmol/L 135-145 L K (test code = 1765338389) 3.9 mmol/L 3.5-5.0 CL (test code = 0474380861) 108 mmol/L 98-108 CO2 TOTAL (test code = 5412077323) 15 mmol/L 23-31 L AGAP (test code = 6384784087) 2-16 BUN (test code = 3175195157) 2 mg/dL 7-23 L GLUCOSE (test code = 4835967065) 170 mg/dL 70-110 H CREATININE (test code = 6346194052) 0.62 mg/dL 0.60-1.25 CALCIUM (test code = 2436049173) 8.3 mg/dL 8.6-10.6 L eGFR (test code = 5503427780) mL/min/1.73m2 ZULEIMA (test code = ZULEIMA) Association of [...] or abnormalities in imaging tests). Lab Interpretation (test code = 19115-0) Abnormal [facility] GLUCOSE (AUTOMATED)2022-04-22 21:08:08* Test Item Value Reference Range Interpretation Comme nts POCT GLU (test code = 9251788717) 156 mg/dL 70-110 H Lab Interpretation (test cod e = 04613-6) Abnormal [facility] GLUCOSE (AUTOMATED)2022-04-22 19:48:36* Test Item Value Reference Range Interpretation Comme nts POCT GLU (test code = 3488973250) 154 mg/dL 70-110 H Lab Interpretation (test cod e = 90674-1) Abnormal [facility] GLUCOSE (AUTOMATED)2022-04-22 18:44:52* Test Item Value Reference Range Interpretation Comme nts POCT GLU (test code = 0840263962) 146 mg/dL 70-110 H Lab Interpretation (test cod e = 51765-8) Abnormal [facility] GLUCOSE (AUTOMATED)2022-04-22 17:28:16* Test Item Value Reference Range Interpretation Comme nts POCT GLU (test code = 1751977078) 148 mg/dL 70-110 H Lab Interpretation (test cod e = 73211-7) Abnormal [facility] Metabolic Panel (Na, K, Cl, CO2, Glucose, BUN, Creatinine, Ca)2022-04-22 16:11:05* Test Item Value Reference Range Interpretation Comme nts NA (test code = 8372843337) 134 mmol/L 135-145 L K (test code = 6414264474) 3.8 mmol/L 3.5-5.0 CL (test code = 6440998329) 106 mmol/L 98-108 CO2 TOTAL (test code = 9293921611) 15 mmol/L 23-31 L AGAP (test code = 0792163196) 2-16 BUN (test code = 5477318754) 4 mg/dL 7-23 L GLUCOSE (test code = 7753849264) 179 mg/dL 70-110 H CREATININE (test code = 4127161138) 0.68 mg/dL 0.60-1.25 CALCIUM (test code = 1704675793) 8.5 mg/dL 8.6-10.6 L eGFR (test code = 2979672689) mL/min/1.73m2 ZULEIMA (test code = ZULEIMA) Association of [...] or abnormalities in imaging tests). Lab Interpretation (test code = 23793-6) [facility]2022-[facility]-22 16:10:40* Test Item Value Reference Range Interpretation Comme [facility] POCT GLU (test code = 6056385294) 157 mg/dL 70-110 H Lab Interpretation (test cod e = 31602-8) Abnormal [facility] WITH [id number] 15:48:43* Test Item Value Reference Range Interpretation Comme nts WBC (test code = 6690-2) See_Comment [Automated [employer]] The system which generated this result transmitted reference range: 4.20 - 10.70 10*3/?L. The reference range was not used to interpret this result as normal/abnormal. RBC (test code = 789-8) See_Comment [Automated [employer]] The system which generated this result transmitted reference range: 4.26 - 5.52 10*6/?L. The reference range was not used to interpret this result as normal/abnormal. HGB (test code = 718-7) 13.7 g/dL 12.2-16.4 HCT (test code = 4544-3) 40.6 % 38.4-49.3 MCV (test code = 787-2) 85.3 fL 81.7-95.6 MCH (test code = 785-6) 28.8 pg 26.1-32.7 MCHC (test code = 786-4) 33.7 g/dL 31.2-35.0 RDW-SD (test code = 68590-0) 38.5 fL 38.5-51.6 RDW-CV (test code = 788-0) 12.4 % 12.1-15.4 PLT (test code = 777-3) See_Comment [Automated [employer]] The system which generated this result transmitted reference range: 150 - 328 10*3/?L. The reference range was not used to interpret this result as normal/abnormal. MPV (test code = 68268-4) 9.2 fL 9.8-13.0 L NRBC/100 WBC (test code = 5448210717) See_Comment [Automated [employer]age] The system which generated this result transmitted reference range: 0.0 - 10.0 /100 WBCs. The reference range was not used to interpret this result as normal/abnormal. NRBC x10^3 (test code = 1743570775) <0.01 See_Comment [Automated [employer]] The system which generated this result transmitted reference range: 10*3/?L. The reference range was not used to interpret this result as normal/abnormal. GRAN MAT (NEUT) % (test code = 770-8) 69.0 % IMM GRAN % (test code = 0696861094) 0.40 % LYMPH % (test code = 736-9) 18.9 % MONO % (test code = 5905-5) 9.1 % EOS % (test code = 713-8) 2.0 % BASO % (test code = 706-2) 0.6 % GRAN MAT x10^3(ANC) (test code = 5218799565) 6.20 10*3/uL 1.99-6.95 IMM GRAN x10^3 (test code = 4340039725) 0.04 10*3/uL 0.00-0.06 LYMPH x10^3 (test code = 731-0) 1.70 10*3/uL 1.09-3.23 MONO x10^3 (test code = 742-7) 0.82 10*3/uL 0.36-1.02 EOS x10^3 (test code = 711-2) 0.18 10*3/uL 0.06-0.53 BASO x10^3 (test code = 704-7) 0.05 10*3/uL 0.01-0.09 Lab Interpretation (test code = 17759-4) Abnormal [facility] GLUCOSE (AUTOMATED)2022-04-22 14:27:15* Test Item Value Reference Range Interpretation Comme nts POCT GLU (test code = 3444236868) 150 mg/dL 70-110 H Lab Interpretation (test cod e = 51330-6) Abnormal [facility] GLUCOSE (AUTOMATED)2022-04-22 13:41:45* Test Item Value Reference Range Interpretation Comme nts POCT GLU (test code = 2612624561) 149 mg/dL 70-110 H Lab Interpretation (test cod e = 63689-0) Abnormal [facility] GLUCOSE (AUTOMATED)2022-04-22 12:29:18* Test Item Value Reference Range Interpretation Comme nts POCT GLU (test code = 2267072783) 174 mg/dL 70-110 H Lab Interpretation (test cod e = 00889-3) Abnormal [facility] GLUCOSE (AUTOMATED)2022-04-22 11:33:37* Test Item Value Reference Range Interpretation Comme nts POCT GLU (test code = 4687341928) 159 mg/dL 70-110 H Lab Interpretation (test cod e = 49139-9) Abnormal [facility] Metabolic Panel (Na, K, Cl, CO2, Glucose, BUN, Creatinine, Ca)2022-04-22 11:30:20* Test Item Value Reference Range Interpretation Comme nts NA (test code = 3150553309) 133 mmol/L 135-145 L K (test code = 5746795111) 3.3 mmol/L 3.5-5.0 L CL (test code = 8982692950) 104 mmol/L 98-108 CO2 TOTAL (test code = 8123607409) 14 mmol/L 23-31 L AGAP (test code = 4840234768) 2-16 BUN (test code = 2380364250) 4 mg/dL 7-23 L GLUCOSE (test code = 8006247016) 172 mg/dL 70-110 H CREATININE (test code = 3231067254) 0.77 mg/dL 0.60-1.25 CALCIUM (test code = 3562123137) 8.6 mg/dL 8.6-10.6 eGFR (test code = 0311183435) mL/min/1.73m2 ZULEIMA (test code = ZULEIMA) Association of [...] or abnormalities in imaging tests). Lab Interpretation (test code = 78944-0) Abnormal [facility] GLUCOSE (AUTOMATED)2022-04-22 10:56:08* Test Item Value Reference Range Interpretation Comme nts POCT GLU (test code = 6554276173) 157 mg/dL 70-110 H Lab Interpretation (test cod e = 91415-6) Abnormal [facility] GLUCOSE (AUTOMATED)2022-04-22 10:56:03* Test Item Value Reference Range Interpretation Comme nts POCT GLU (test code = 4856888545) 96 mg/dL 70-110 Lab Interpretation (test cod e = 94120-6) Normal [facility] GLUCOSE (AUTOMATED)2022-04-22 09:35:36* Test Item Value Reference Range Interpretation Comme nts POCT GLU (test code = 5248506980) 158 mg/dL 70-110 H Lab Interpretation (test cod e = 66246-1) Abnormal [facility] GLUCOSE (AUTOMATED)2022-04-22 08:36:40* Test Item Value Reference Range Interpretation Comme nts POCT GLU (test code = 7465983342) 166 mg/dL 70-110 H Lab Interpretation (test cod e = 91577-2) Abnormal [facility] Metabolic Panel (Na, K, Cl, CO2, Glucose, BUN, Creatinine, Ca)2022-04-22 08:00:14* Test Item Value Reference Range Interpretation Comme nts NA (test code = 2508807420) 133 mmol/L 135-145 L K (test code = 8194187798) 3.6 mmol/L 3.5-5.0 CL (test code = 4654463510) 103 mmol/L 98-108 CO2 TOTAL (test code = 3711168016) 14 mmol/L 23-31 L AGAP (test code = 8778445150) 2-16 BUN (test code = 9795794313) 5 mg/dL 7-23 L GLUCOSE (test code = 6882529327) 172 mg/dL 70-110 H CREATININE (test code = 5639796686) 0.85 mg/dL 0.60-1.25 CALCIUM (test code = 2392675327) 9.0 mg/dL 8.6-10.6 eGFR (test code = 1446892015) mL/min/1.73m2 ZULEIMA (test code = ZULEIMA) Association of [...] or abnormalities in imaging tests). Lab Interpretation (test code = 07155-4) [facility] HospitalOsmolality [id number] 07:46:08* Test Item Value Reference Range Interpretation Comme [facility] OSMOLALITY (test code = 2692-2) See_Comment [Automated [employer]] The system which generated this result transmitted reference range: 278 - 305 mOsm/kg. The reference range was not used to interpret this result as normal/abnormal. Lab Interpretation (test code = 46154-6) [facility]2022-04-22 07:36:29* Test Item Value Reference Range Interpretation Comme [facility] POCT GLU (test code = 3692758910) 144 mg/dL 70-110 H Lab Interpretation (test cod e = 46398-1) Abnormal [facility] GLUCOSE (AUTOMATED)2022-04-22 07:36:29* Test Item Value Reference Range Interpretation Comme nts POCT GLU (test code = 8886222571) 168 mg/dL 70-110 H Lab Interpretation (test cod e = 61844-5) Abnormal [facility] HospitalBetahydroxy-Rsgaortf4398-18-88 07:26:24* Test Item Value Reference Range Interpretation Comme nts BOH (test code = 7377830969) 3.1 mmol/L ZULEIMA (test code = ZULEIMA) Normal Ranges: ? ? Nonfasting ? Less than 0.1 mmol/L ? ? Overnight Fast ? ? ? Less than 0.4 mmol/L ? ? Fasting (1-2 weeks) ?6-8 mmol/L Test developed and characteristics determined by [facility] Laboratory Services. [facility] GLUCOSE (AUTOMATED)2022-04-22 06:32:35* Test Item Value Reference Range Interpretation Comme [facility] POCT GLU (test code = 5182444715) 155 mg/dL 70-110 H Lab Interpretation (test cod e = 91667-1) [facility]normal [facility] Hospital[facility] Met[facility] Panel (Na, K, Cl, CO2, Glucose, BUN, Creatinine, Ca)2022-04-22 06:02:22* Test Item Value Reference Range Interpretation Comme nts NA (test code = 2808546790) 134 mmol/L 135-145 L K (test code = 2115827746) 3.6 mmol/L 3.5-5.0 CL (test code = 6743382754) 104 mmol/L 98-108 CO2 TOTAL (test code = 2938157567) 11 mmol/L 23-31 L AGAP (test code = 5195842134) 2-16 H BUN (test code = 0440735643) 7 mg/dL 7-23 GLUCOSE (test code = 0922967836) 177 mg/dL 70-110 H CREATININE (test code = 4364776139) 0.81 mg/dL 0.60-1.25 CALCIUM (test code = 3169067813) 9.0 mg/dL 8.6-10.6 eGFR (test code = 1639460000) mL/min/1.73m2 ZULEIMA (test code = ZULEIMA) Association of [...] or abnormalities in imaging tests). Lab Interpretation (test code = 22280-9) Abnormal [facility] GLUCOSE (AUTOMATED)2022-04-22 04:35:23* Test Item Value Reference Range Interpretation Comme [facility] POCT GLU (test code = 5306943733) 154 mg/dL 70-110 H Lab Interpretation (test cod e = 03929-3) Abnormal [facility] GLUCOSE (AUTOMATED)2022-04-22 03:44:33* Test Item Value Reference Range Interpretation Comme [facility] POCT GLU (test code = 6398207197) 166 mg/dL 70-110 H Lab Interpretation (test cod e = 96463-2) [facility]normal [facility] HospitalLaky[facility] Acid Whole [id number] 03:11:51* Test Item Value Reference Range Interpretation Comme [facility] LACTIC ACID (test code = 9413023222) 2.04 mmol/L 0.50-2.20 Lab Interpretation (test cod e = 74130-2) [facility] (Na, K, Cl, CO2, Glucose, BUN, Creatinine, Ca)2022-04-22 02:17:22* Test Item Value Reference Range Interpretation Comme nts NA (test code = 3333433975) 134 mmol/L 135-145 L K (test code = 3428869530) 4.3 mmol/L 3.5-5.0 CL (test code = 8937153319) 101 mmol/L 98-108 CO2 TOTAL (test code = 4577540925) 10 mmol/L 23-31 L AGAP (test code = 1377559127) 2-16 H BUN (test code = 6413077078) 8 mg/dL 7-23 GLUCOSE (test code = 1029611392) 128 mg/dL 70-110 H CREATININE (test code = 2916985000) 0.92 mg/dL 0.60-1.25 CALCIUM (test code = 8523210288) 9.2 mg/dL 8.6-10.6 eGFR (test code = 5249786679) mL/min/1.73m2 ZULEIMA (test code = ZULEIMA) Association of [...] or abnormalities in imaging tests). Lab Interpretation (test code = 47253-6) Abnormal [facility] GLUCOSE (AUTOMATED)2022-04-22 02:16:37* Test Item Value Reference Range Interpretation Comme nts POCT GLU (test code = 4352131291) 132 mg/dL 70-110 H Lab Interpretation (test cod e = 68052-7) Abnormal [facility] GLUCOSE (AUTOMATED)2022-04-22 01:19:28* Test Item Value Reference Range Interpretation Comme nts POCT GLU (test code = 2892024791) 142 mg/dL 70-110 H Notified Provide r Lab Interpretation (test code = 85325-7) [facility]normal [facility] Hem[facility] (A1C)2022-04-22 01:01:17* Test Item Value Reference Range Interpretation Comme nts HGB A1C (test code = 4548-4) 10.5 % 4.0-5.7 H ZULEIMA (test code = ZULEIMA) Reference RangesNormal: <5.7%Prediabetes: 5.7 - 6.4%Diabetes: > 6.5% Lab Interpretation (test code = 40970-7) [facility]normal [facility] Hospital[facility]esium [id number] 00:42:52* Test Item Value Reference Range Interpretation Comme nts MAGNESIUM (test code = 6666704065) 1.9 mg/dL 1.7-2.4 Lab Interpretation (test cod e = 69622-6) [facility]osphorus [id number] 00:42:32* Test Item Value Reference Range Interpretation Comme nts PHOSPHORUS (test code = 9635584441) 5.1 mg/dL 2.5-5.0 H Lab Interpretation (test cod e = 45030-6) [facility] + LACTIC [id number] 00:14:12* Test Item Value Reference Range Interpretation Comme nts PH (test code = 3316553340) 7.32-7.42 L PCO2 SAKINA (test code = 2729402096) See_Comment L [Automated messa ge] The system which generated this result transmitted reference range: 41 - 51 mmHg. The reference range was not used to interpret this result as normal/abnormal. PO2 SAKINA (test code = 5681837460) See_Comment H [Automated messa ge] The system which generated this result transmitted reference range: 25 - 40 mmHg. The reference range was not used to interpret this result as normal/abnormal. HCO3 SAKINA (test code = 2142576876) See_Comment L [Automated messa ge] The system which generated this result transmitted reference range: 24 - 28 mEq/L. The reference range was not used to interpret this result as normal/abnormal. AC VBE(BEAKER) (test code = 4205488372) mEq/L THB SAKINA (test code = 5757613580) 16.5 g/dL 13.5-18.0 %O2HB SAKINA (test code = 2282244037) 84.9 % 52.0-63.0 H %COHB SAKINA (test code = 2988839638) 0.3 % 0.0-1.5 %METHB SAKINA (test code = 1221295658) 0.1 % 0.4-1.5 L VOL%O2 SAKINA (test code = 8221506015) 19.6 % 6.0-12.0 H NA (test code = 6678932539) 134 mmol/L 135-145 L K+ (test code = 1061941289) 3.7 mmol/L 3.5-5.0 AC CA IONZ (test code = 0735628911) 5.30 mg/dL 4.50-5.30 GLUCOSE (test code = 2228543568) 155 mg/dL 70-110 H LACTIC ACID (test code = 7565613228) 2.34 mmol/L 0.50-2.20 H Lab Interpretation (test code = 05221-6) Abnormal [facility] [id number] 23:48:43* Test Item Value Reference Range Interpretation Comments TROPONIN I (test code = 5595830757) 0.002 ng/mL See_Comment [Automated message] The system which generated this result transmitted reference range: <=0.034. The reference range was not used to interpret this result as normal/abnormal. ZULEIMA (test code = ZULEIMA) Reference (Normal) Range (defined by the 99th percentile reference [...] to patient's use of biotin. Lab Interpretation (test code = 32382-2) Normal [facility]AL [id number] 23:45:26* Test Item Value Reference Range Interpretation Comme nts NT-proBNP (test code = 5614443228) 38 pg/mL See_Comment [Automated message] The system which generated this result transmitted reference range: <=125. The reference range was not used to interpret this result as normal/abnormal. ZULEIMA (test code = ZULEIMA) Biotin has been reported to cause a negative bias, interpret results relative to patient's use of biotin. Lab Interpretation (test code = 74475-3) Normal [facility] HospitalCOMP. METABOLIC PANEL (20158)2022-04-21 23:45:16* Test Item Value Reference Range Interpretation Comme nts NA (test code = 9255344914) 134 mmol/L 135-145 L K (test code = 4923705139) 4.3 mmol/L 3.5-5.0 CL (test code = 0366946495) 100 mmol/L 98-108 CO2 TOTAL (test code = 0906398843) 8 mmol/L 23-31 L AGAP (test code = 3391795159) 2-16 H BUN (test code = 6441258280) 8 mg/dL 7-23 GLUCOSE (test code = 9879890194) 169 mg/dL 70-110 H CREATININE (test code = 3570369122) 0.93 mg/dL 0.60-1.25 TOTAL BILI (test code = 3681997949) 1.1 mg/dL 0.1-1.1 CALCIUM (test code = 1915814560) 9.8 mg/dL 8.6-10.6 T PROTEIN (test code = 6013251476) 8.2 g/dL 6.3-8.2 ALBUMIN (test code = 6568105153) 5.0 g/dL 3.5-5.0 ALK PHOS (test code = 8924843508) 106 U/L 34-122 ALTv (test code = 1742-6) 64 U/L 5-50 H AST(SGOT) (test code = 3447186877) 47 U/L 13-40 H eGFR (test code = 1180706478) mL/min/1.73m2 ZULEIMA (test code = ZULEIMA) Association of [...] or abnormalities in imaging tests). Lab Interpretation (test code = 58234-1) Abnormal [facility] Hospital[facility]IPASE2022-05-23 23:37:42* Test Item Value Reference Range Interpretation Comme nts LIPASE (test code = 6322381418) 106 U/L 0-220 Lab Interpretation (test cod e = 74145-4) Normal [facility] HospitalPROTHROMBIN TIME / [id number] 23:30:44* Test Item Value Reference Range Interpretation Comme nts PROTIME PATIENT (test code = 5964-2) See_Comment [Automated messa ge] The system which generated this result transmitted reference range: 12.0 - 14.7 Seconds. The reference range was not used to interpret this result as normal/abnormal. INR (test code = 6301-6) Normal INR <1.1; Warfarin Therapeutic range 2.0 to 3.0 or 2.5 to 3.5, depending upon the indications. Lab Interpretation (test code = 64649-3) Normal [facility] HospitalCBC WITH [id number] 23:22:44* Test Item Value Reference Range Interpretation Comme nts WBC (test code = 6690-2) See_Comment H [Automated messa ge] The system which generated this result transmitted reference range: 4.20 - 10.70 10*3/?L. The reference range was not used to interpret this result as normal/abnormal. RBC (test code = 789-8) See_Comment H [Automated messa ge] The system which generated this result transmitted reference range: 4.26 - 5.52 10*6/?L. The reference range was not used to interpret this result as normal/abnormal. HGB (test code = 718-7) 16.8 g/dL 12.2-16.4 H HCT (test code = 4544-3) 50.3 % 38.4-49.3 H MCV (test code = 787-2) 85.5 fL 81.7-95.6 MCH (test code = 785-6) 28.6 pg 26.1-32.7 MCHC (test code = 786-4) 33.4 g/dL 31.2-35.0 RDW-SD (test code = 93086-8) 38.3 fL 38.5-51.6 L RDW-CV (test code = 788-0) 12.3 % 12.1-15.4 PLT (test code = 777-3) See_Comment H [Automated messa ge] The system which generated this result transmitted reference range: 150 - 328 10*3/?L. The reference range was not used to interpret this result as normal/abnormal. MPV (test code = 85013-2) 9.2 fL 9.8-13.0 L NRBC/100 WBC (test code = 6499047670) See_Comment [Automated me ssage] The system which generated this result transmitted reference range: 0.0 - 10.0 /100 WBCs. The reference range was not used to interpret this result as normal/abnormal. NRBC x10^3 (test code = 1891954273) <0.01 See_Comment [Automated messa ge] The system which generated this result transmitted reference range: 10*3/?L. The reference range was not used to interpret this result as normal/abnormal. GRAN MAT (NEUT) % (test code = 770-8) 62.0 % IMM GRAN % (test code = 8863948555) 0.30 % LYMPH % (test code = 736-9) 29.7 % MONO % (test code = 5905-5) 6.5 % EOS % (test code = 713-8) 0.9 % BASO % (test code = 706-2) 0.6 % GRAN MAT x10^3(ANC) (test code = 8414669470) 7.25 10*3/uL 1.99-6.95 H IMM GRAN x10^3 (test code = 7060438966) 0.04 10*3/uL 0.00-0.06 LYMPH x10^3 (test code = 731-0) 3.48 10*3/uL 1.09-3.23 H MONO x10^3 (test code = 742-7) 0.76 10*3/uL 0.36-1.02 EOS x10^3 (test code = 711-2) 0.11 10*3/uL 0.06-0.53 BASO x10^3 (test code = 704-7) 0.07 10*3/uL 0.01-0.09 Lab Interpretation (test code = 05742-9) Abnormal [facility] HospitalALBUMIN/CREATININE RATIO, URINE, RANDOM 2022-03-11 01:57:25* Test Item Value Reference Range Interpretation Comme nts CREATININE, URINE, RANDOM (test code = 2072) 61.2 MG/DL NOT ESTAB ALBUMIN, URINE, RANDOM (test code = 01225) <0.2 MG/DL NOT ESTAB CALC ALBUMIN/CREAT, RND (test code = 54632) <3 MG/G <30 Note: Albumin/Creatinine ratio reference interval reflects ADA and NKF guidelines. COMPREHENSIVE METABOLIC [id number] 00:29:28* Test Item Value Reference Range Interpretation Comme nts GLUCOSE (test code = 2216) 413 MG/DL 70-99 H BUN (test code = 2207) 14 MG/DL 6-20 CREATININE (test code = 2213) 0.81 MG/DL 0.80-1.40 eGFR (2020 CKD-EPI) (test code = 41810) 107 ML/MIN/1.73 >60 CALC BUN/CREAT (test code = 223) 17 RATIO 6-28 SODIUM (test code = 2230) 138 MEQ/L 133-146 POTASSIUM (test code = 8) 4.2 MEQ/L 3.5-5.4 CHLORIDE (test code = 2214) 96 MEQ/L 95-107 CARBON DIOXIDE (test code = 2205) 24 MEQ/L 19-31 CALCIUM (test code = 2208) 9.8 MG/DL 8.5-10.5 PROTEIN, TOTAL (test code = 2228) 7.1 G/DL 6.1-8.3 ALBUMIN (test code = 2200) 4.2 G/DL 3.5-5.2 CALC GLOBULIN (test code = 2240) 2.9 G/DL 1.9-3.7 CALC A/G RATIO (test code = 223) 1.4 RATIO 1.0-2.6 BILIRUBIN, TOTAL (test code = 2206) 0.5 MG/DL See_Comment [Automated me ssage] The system which generated this result transmitted reference range: <=1.2. The reference range was not used to interpret this result as normal/abnormal. ALKALINE PHOSPHATASE (test code = 2203) 82 U/L 40-118 AST (test code = 2218) 26 U/L 9-50 ALT (test code = 2219) 54 U/L 5-50 H LIPID [id number] 00:29:28* Test Item Value Reference Range Interpretation Comme nts CHOLESTEROL (test code = 2210) 174 MG/DL <200 TRIGLYCERIDES (test code = 2232) 311 MG/DL <150 H HDL CHOLESTEROL (test code = 2220) 40 MG/DL >39 CALC LDL CHOL (test code = 2237) 93 MG/DL <100 NOTE: CALCULATED LDL IS BASED ON DANIEL-BREWER METHOD WHICHINCLUDES ADJUSTABLE TRIGLYCERIDE:VLDL CHOLESTEROL RATIO.THIS FACTOR VARIES BY MEASURED TRIGLYCERIDE AND NON-HDLCHOLESTEROL CONCENTRATIONS WITH INCREASED CALCULATED LDL SEENIN HIGHER TRIGLYCERIDE OR LOWER NON-HDL SPECIMENS. FOR MOREINFORMATION, SEE CLIENT ANNOUNCEMENT AT [email or web address] [email or web address] RATIO LDL/HDL (test code = 2238) 2.33 RATIO <3.55 HEMOGLOBIN [id number] 03:12:57* Test Item Value Reference Range Interpretation Comme nts HEMOGLOBIN A1c (test code = 50449) 11.3 % 4.2-5.[address] [employer] GUIDELINES FOR HGB A1C: PREDIABETES/INCREASED RISK . . . . . . . 5.7-6.4% DIAGNOSIS OF DIABETES . . . . . . . . . >=6.5% WITH CONFIRMATION OR APPROPRIATE SYMPTOMS NOTE: ASSAY MAY BE AFFECTED BY HEMOGLOBINOPATHIES (SICKLE CELL ANEMIA, S-C DISEASE, OTHERS) OR ARTIFICIALLY LOWERED BY DECREASED RED CELL SURVIVAL (HEMOLYTIC ANEMIAS, BLOOD LOSS, ETC.). CONSIDER ALTERNATE TESTING OR LABORATORY CONSULTATION. UNLESS OTHERWISE INDICATED, ALL TESTING PERFORMED [facility]ENTERLINXiaoSheng.fm PATHOLOGY [employer] [address] [place] [address] [employer] SUPERVISOR: MELECIO GREEN M.D. CLIA NUMBER [id number] [facility] [place]. [id number] COMPREHENSIVE METABOLIC [id number] 04:51:05* Test Item Value Reference Range Interpretation Comme nts GLUCOSE (test code = 2217) 299 MG/DL 70-99 H BUN (test code = 2208) 15 MG/DL 6-20 CREATININE (test code = 2214) 0.67 MG/DL 0.80-1.40 L eGFR (2020 CKD-EPI) (test code = 46286) 114 ML/MIN/1.73 >60 CALC BUN/CREAT (test code = 2235) 22 RATIO 6-28 SODIUM (test code = 2230) 143 MEQ/L 133-146 POTASSIUM (test code = 2228) 4.1 MEQ/L 3.5-5.4 CHLORIDE (test code = 5) 105 MEQ/L 95-107 CARBON DIOXIDE (test code = 2205) 26 MEQ/L 19-31 CALCIUM (test code = 2208) 9.3 MG/DL 8.5-10.5 PROTEIN, TOTAL (test code = 222) 6.5 G/DL 6.1-8.3 ALBUMIN (test code = 1) 4.0 G/DL 3.5-5.2 CALC GLOBULIN (test code = 2240) 2.5 G/DL 1.9-3.7 CALC A/G RATIO (test code = 223) 1.6 RATIO 1.0-2.6 BILIRUBIN, TOTAL (test code = 2206) 0.5 MG/DL See_Comment [Automated me ssage] The system which generated this result transmitted reference range: <=1.2. The reference range was not used to interpret this result as normal/abnormal. ALKALINE PHOSPHATASE (test code = 2203) 111 U/L 40-118 AST (test code = 2217) 33 U/L 9-50 ALT (test code = 2218) 76 U/L 5-50 H LIPID [id number] 04:51:05* Test Item Value Reference Range Interpretation Comme nts CHOLESTEROL (test code = 0) 213 MG/DL <200 H TRIGLYCERIDES (test code = 2232) 119 MG/DL <150 HDL CHOLESTEROL (test code = 2220) 77 MG/DL >39 CALC LDL CHOL (test code = 223) 113 MG/DL <100 H NOTE: CALCULATED LDL IS BASED ON DANIEL-BREWER METHOD WHICHINCLUDES ADJUSTABLE TRIGLYCERIDE:VLDL CHOLESTEROL RATIO.THIS FACTOR VARIES BY MEASURED TRIGLYCERIDE AND NON-HDLCHOLESTEROL CONCENTRATIONS WITH INCREASED CALCULATED LDL SEENIN HIGHER TRIGLYCERIDE OR LOWER NON-HDL SPECIMENS. FOR MOREINFORMATION, SEE CLIENT ANNOUNCEMENT AT [email or web address] RISK RATIO LDL/HDL (test code = 2238) 1.47 RATIO <3.55 UNLESS OTHERW ISE INDICATED, ALL TESTING PERFORMED ATCLINICAL PATHOLOGY [employer] [address] [place] [id number] [employer] SUPERVISOR: MELECIO GREEN M.D. CLIA NUMBER [id number] [facility] [place]. [id number] HEMOGLOBIN [id number] 02:53:45* Test Item Value Reference Range Interpretation Comme nts HEMOGLOBIN A1c (test code = 91576) 10.6 % 4.2-5.[address] [employer] GUIDELINES FOR HGB A1C: PREDIABETES/INCREASED RISK . . . . . . . 5.7-6.4% DIAGNOSIS OF DIABETES . . . . . . . . . >=6.5% WITH CONFIRMATION OR APPROPRIATE SYMPTOMS NOTE: ASSAY MAY BE AFFECTED BY HEMOGLOBINOPATHIES (SICKLE CELL ANEMIA, S-C DISEASE, OTHERS) OR ARTIFICIALLY LOWERED BY DECREASED RED CELL SURVIVAL (HEMOLYTIC ANEMIAS, BLOOD LOSS, ETC.). CONSIDER ALTERNATE TESTING OR LABORATORY CONSULTATION. Notes Date/Time Note Provider Source 2022-09-24 09:36:00 [id number] [facility] [id number] [place] [address] PATIENT NAME: DANIEL LEHMAN ADMIT DATE: 09/24/22ACCOUNT NO: [id number] ROOM NO: AGE: 51 REPORT TYPE: OPERATIVE [...] to be within normal range. Mid to distal aspect esophagitis and retained food debris noted. [...] PATIENT NAME: DANIEL LEHMAN Date Transcribed: 09/24/2022 16:12:19NJAnna/Mamie #: [id number] ID: [id number] by Lukasz Saul MD On 10/01/2022 09:00:16 AM at 0900 PATIENT NAME: DANIEL LEHMAN [id number]:12:00L.[id number] lable for patient [id number]:00:46 [facility]"
[2023-11-10] MEDS ORDERED: ONDANSETRON 4 MG/2 ML VIAL ONE (00:58)
[2023-11-10] MEDS ORDERED: ASPIRIN 81 MG CHEWABLE TABLET ONE ×2 (00:58→08:50)
[2023-11-10 01:17] LABS: RBC Red Blood Cell Count 4.64 M/uL (4.33-5.43)
[2023-11-10 01:18] LABS: Absolute Lymphocytes (CBC) 2.8 K/uL (0.7-4.9); Hematocrit 40.8 % (39.6-49.0); Lymphocytes % 31.2 % (15.3-44.8); MCV 87.9 fL (80-100); MPV 8.1 fL (7.6-11.3); Platelets 276 thou/uL (152-406)
[2023-11-10 01:20] LABS: Protime INR 1.01
[2023-11-10 01:33] LABS: Albumin 2.8 g/dL (3.4-5.0); Bilirubin Direct 0.2 mg/dL (0-0.2); Bilirubin Indirect, Calculated 0.4 mg/dL (0.2-0.8); Bilirubin Total 0.6 mg/dL (0.2-1.0); Magnesium 2.2 mg/dL (1.6-2.4); Potassium 3.7 mEq/L (3.5-5.1); Protein, Total 7.1 g/dL (6.4-8.2); Troponin High Sensitivity 11.1 pg/mL (<58.9)
[2023-11-10] MEDS ORDERED: LIDOCAINE 1% MPF 5 ML VIAL ONE (01:46)
[2023-11-10 01:53] LABS: Arterial Blood Carboxyhemoglob 0.9 % (0-1.5); Blood Gas Oxyhemoglobin 91.3 % (94-97); Blood O2 Saturation 93.7 % (92-98.5)
[2023-11-10 02:02] LABS: SARS-COV-2 RT PCR NEGATIVE (NEGATIVE)
[2023-11-10] MEDS ORDERED: NOREPINEPHRINE BITARTRATE/D5W 4 MG/250 ML BAG IV ONE (02:34)
[2023-11-10] MEDS ORDERED: NA CHLORIDE 0.9% 250 ML ONE (02:34)
[2023-11-10] MEDS ORDERED: VANCOMYCIN 1 GM/VIAL ONE (02:34)
[2023-11-10] MEDS ORDERED: ALBUMIN HUMAN 25% 100 ML IV ONE ×2 (02:35→02:51)
[2023-11-10] MEDS ORDERED: NA CHLORIDE 0.9% 1,000 ML ONE (02:35)
--- NOTE | 2023-11-10 03:55 | EDPHYS ---
Physician Documentation [facility] Name: Leandro Rand Age: 52 yrs Sex: Male : 1970 Arrival Date: 11/10/2023 Time: 00:01 Bed 7 Private MD: ED Physician Jens Flores HPI: 11/10 01:48 This 52 yrs old Male presents to ER via EMS with complaints of Gen weakness . sp4 03:41 Patient presents with EMS for acute onset generalized weakness associated with fall at sp4 home. Patient was managed here to hospital from 10/27/2023 through 11/05/2023. During last admission infection presented with hypercapnic respiratory failure unstable angina and NSTEMI. After patient has improved he was extubated and had cardiac catheter which showed normal coronary arteries. Patient was then discharged home in stable condition. Medications at home include atorvastatin, insulin glargine, Protonix, metoprolol, nebulizer, potassium chloride, spironolactone, insulin regular human, metformin.. Historical: - Allergies: 00:55 Segluromet; jw7 00:55 Synjardy; jw7 00:55 XIGDUO; jw7 - Home Meds: 00:55 Insulin [Active]; Metoprolol Tartrate Oral [Active]; Lipitor Oral [Active]; Metformin jw7 Oral [Active]; Water Pill [Active]; - PMHx: 00:55 COVID-19; Diabetes - IDDM; Diabetes - NIDDM; Hyperlipidemia; Myocardial infarction; jw7 Congestive heart failure; Lung Failure; - PSHx: 00:55 Left first finger amputation; Heart Cath; jw7 - Immunization history:: Adult Immunizations up to date, Client reports receiving the 2nd dose of the Covid vaccine, Flu vaccine is not up to date. - Social history:: Smoking status: Patient denies any tobacco usage or history of. Patient/guardian denies using alcohol, street drugs, IV drugs. - Family history:: not pertinent. ROS: 03:41 Constitutional: Negative for fever, chills, and weight loss, sp4 03:49 Constitutional: Positive for generalized weakness, fall at home, feeling unwell sp4 Abdomen/GI: Positive for vomiting Exam: 03:49 Constitutional: This is a well developed, well nourished patient who is awake, alert, sp4 morbidly obese male, generalized weakness, hypertensive on arrival Head/Face: Normocephalic, atraumatic. Eyes: Pupils equal round and reactive to light, extra-ocular motions intact. Lids and lashes normal. Conjunctiva and sclera are not injected. Cornea within normal limits. Periorbital areas with no swelling, redness, or edema. ENT: Nares patent. No nasal discharge, no septal abnormalities noted. Tympanic membranes are normal and external auditory canals are clear. Oropharynx with no redness, swelling, or masses, exudates, or evidence of obstruction, uvula midline. Mucous membranes moist. Neck: Trachea midline, no thyromegaly or masses palpated, and no cervical lymphadenopathy. Supple, full range of motion without nuchal rigidity, or vertebral point tenderness. Chest/axilla: Normal chest wall appearance and motion. Nontender with no deformity. No lesions are appreciated. Cardiovascular: Regular rate and rhythm with a normal S1 and S2. No gallops, murmurs, or rubs. Normal PMI, no JVD. No pulse deficits. Respiratory: Lungs have equal breath sounds bilaterally, clear to auscultation and percussion. No rales, rhonchi or wheezes noted. No increased work of breathing, no retractions or nasal flaring. Abdomen/GI: Soft, non-tender, with normal bowel sounds. No distension or tympany. No guarding or rebound. No evidence of tenderness throughout. Back: No spinal tenderness. No costovertebral tenderness. Skin: Warm, dry with normal turgor. Normal color with no rashes, no lesions, and no evidence of cellulitis. MS/ Extremity: Pulses equal, no cyanosis. Neurovascular intact. Full, normal range of motion. Neuro: Awake and alert, GCS 15, oriented to person, place, time, and situation. Cranial nerves II-XII grossly intact. Motor strength 5/5 in all extremities. Sensory grossly intact. Psych: Awake, alert, with orientation to person, place and time. Behavior, mood, and affect are within normal limits 03:49 ECG was reviewed by the Attending Physician. EKG at 0032 reveals normal sinus rhythm, normal EKG, no ST elevation or depression Vital Signs: 00:10 BP 93 / 57; Pulse 95; Resp 27; Temp 98.6; Pulse Ox 95% on 3 lpm NC; Weight 136.08 kg; jw7 Height 5 ft. 7 in. ; 01:04 BP 78 / 61; Pulse 95; Resp 28 S; Pulse Ox 100% on 3 lpm NC; jw7 02:14 BP 109 / 59; Pulse 93; Resp 31 S; Pulse Ox 97% on 2 lpm NC; lg3 02:46 BP 123 / 66; Pulse 94; Resp 29 S; Pulse Ox 94% on 2 lpm NC; lg3 03:14 BP 112 / 55; Pulse 92; Resp 28 S; Pulse Ox 100% on BiPAP; lg3 04:58 BP 128 / 68; Pulse 97; Resp 27 S; Pulse Ox 98% on BiPAP; lg3 05:40 BP 131 / 73; Pulse 98; Resp 25 S; Pulse Ox 99% on BiPAP; jw7 06:36 BP 132 / 75; Pulse 101; Resp 24 S; Pulse Ox 96% on BiPAP; jw7 08:16 BP 130 / 77; Pulse 102; Resp 24; Pulse Ox 98% on BiPAP; rs5 00:10 Body Mass Index 46.99 (136.08 kg, 170.18 cm) jw7 Procedures: 01:48 Central Line: the site was prepped with in sterile fashion, Hexedine prep, a triple sp4 lumen catheter was inserted, in the right internal jugular vein, in 1 attempts. placement was verified, by CXR, by blood return, the site was dressed with Tegaderm, using sterile technique, the patient tolerated the procedure, well, Ultrasound-guided right internal jugular CVL triple-lumen placed without complications. MDM: 00:24 Patient medically screened. sp4 03:49 ED course: Prior CT report - EXAM DESCRIPTION: CT - Chest For Pe Angio - 10/25/2023 sp4 8:16 pm CLINICAL HISTORY: back pain, shortness of breath COMPARISON: Chest For Pe Angio dated 02/20/2022 TECHNIQUE: Thin axial CT images of the chest were obtained following administration of 100 mL Isovue 370 IV contrast. Multiplanar reconstructions, and maximum intensity projection reconstructions were generated and reviewed. Exam utilizes a protocol for optimal evaluation of pulmonary arterial tree. All CT scans are performed using dose optimization technique as appropriate and may include automated exposure control or mA/KV adjustment according to patient size. FINDINGS: Pulmonary arteries are normal. No emboli or other suspicious finding. No acute or significant aorta findings. No mass or infiltrate in the lung parenchyma. Juxtapleural linear atelectatic changes or scarring. No pleural thickening or pleural effusion. No pneumothorax. No abnormal mediastinal or hilar masses or lymphadenopathy seen. 1 cm prevascular lymph node is benign in appearance, possibly reactive/ inflammatory. No chest wall mass or abnormal axilliary lymphadenopathy. IMPRESSION: No evidence of acute central pulmonary emboli. Incidental findings as above. . 03:54 ED course: Chest X ray - EXAM DESCRIPTION: Chest Single View RadLex: XR CHEST 1 VIEW sp4 CLINICAL HISTORY: 52 years Male, CHEST PAIN COMPARISON: 10/27/2023 FINDINGS: Single portable AP view of the chest. Trachea is midline. Normal size of the cardiac silhouette given technique. Probable soft tissue attenuation over the periphery of the chest. Cannot exclude some underlying parenchymal opacities, particularly on the left. No pleural effusion or pneumothorax. No acute osseous abnormality. IMPRESSION: Soft tissue attenuation over the periphery of the chest. Cannot exclude true parenchymal opacities, particularly on the left. . 03:55 Differential Diagnosis altered mental status, sepsis, flu. Data reviewed: vital signs, sp4 nurses notes, EMS record, old medical records, lab test result(s), EKG, radiologic studies, plain films. 06:43 ED course: Chest - TECHNIQUE: Single view of the chest. COMPARISON: November 10, 2023 4 12:43 AM. FINDINGS: Lungs: No pulmonary vascular congestion or consolidation. Pleural space: Unremarkable. No pneumothorax. Heart: The cardiac silhouette is enlarged versus artifact of AP technique. Mediastinum: Unremarkable. Normal mediastinal contour. Bones/joints: The bones and joints are unchanged as visualized. Tubes, lines and devices: Right IJ line is in the SVC. Upper abdomen: No free air in the visualized upper abdomen. IMPRESSION: Right IJ line is in the SVC. No pneumothorax. . 11/10 00:23 Order name: Basic Metabolic Panel; Complete Time: 48 sp4 11/10 00:23 Order name: CBC with Diff; Complete Time: 48 sp4 11/10 00:23 Order name: LFT's; Complete Time: :48 sp4 11/10 00:23 Order name: Magnesium; Complete Time: 48 sp4 11/10 00:23 Order name: NT PRO-BNP; Complete Time: 48 sp4 11/10 00:23 Order name: PT-INR; Complete Time: 01:48 sp4 1212 00:23 Order name: Troponin HS; Complete Time: 01:48 sp4 12 00:23 Order name: Lipase; Complete Time: 01:48 sp4 1212 00:24 Order name: COVID-19/FLU A+B; Complete Time: 03:43 sp4 1212 00:55 Order name: Glucose, Ancillary Testing; Complete Time: 01:48 EDMS 11/10 01:39 Order name: Blood Culture Adult (2) [facility] 11/10 01:39 Order name: Lactate w/ 2H reflex if indic.; Complete Time: 03:43 [facility] 12 01:39 Order name: ABG; Complete Time: 06:10 [facility] 11/10 00:23 Order name: XRAY Chest (1 view) [facility] 11/10 01:50 Order name: Chest Single View XRAY: CVL placement [facility] 11/10 03:44 Order name: BIPAP [facility] 11/10 00:23 Order name: EKG; Complete Time: 00:24 4 12 00:23 Order name: Cardiac monitoring; Complete Time: 00:35 sp4 12 00:23 Order name: EKG - Nurse/Tech; Complete Time: 00:35 4 11/10 00:23 Order name: IV Saline Lock; Complete Time: 01:02 4 12 00:23 Order name: Labs collected and sent; Complete Time: 01:02 4 1212 00:23 Order name: O2 Per Protocol; Complete Time: 00:35 4 11/10 00:23 Order name: O2 Sat Monitoring; Complete Time: 00:35 sp4 EC:49 Rate is 93 beats/min. Rhythm is regular, Normal Sinus Rhythm. QRS [place] is Normal. [place] sp4 interval is normal. QRS interval is normal. QT interval is normal. No Q waves. T waves are Normal. No ST changes noted. Clinical impression: Normal ECG. Interpreted by me. Reviewed by me. Administered Medications: 01:01 Drug: Ondansetron IVP 4 mg IVP once; over 2 minutes Route: IVP; Site: left forearm; lg3 04:59 Follow up: Response: No adverse reaction lg3 01:02 Drug: Aspirin PO Chewable Tablet 324 mg PO once; 81 mg tablets x 4 Route: PO; lg3 05:00 Follow up: Response: No adverse reaction lg3 02:46 Drug: vancoMYCIN IVPB 2 grams IVPB at calculated rate once Route: IVPB; Rate: lg3 calculated rate; Site: right jugular; 04:59 Follow up: IV Status: Completed infusion; IV Intake: 250ml lg3 02:46 Drug: Albumin IVPB 25 grams 100 ml IVPB once; (Note: Albumin 25% concentration) Volume: lg3 100 ml; Route: IVPB; Site: right jugular; :59 Follow up: IV Status: Completed infusion; IV Intake: 50ml lg3 02:46 Drug: Albumin IVPB 25 grams 100 ml IVPB once; (Note: Albumin 25% concentration) Volume: lg3 100 ml; Route: IVPB; Site: right jugular; :59 Follow up: IV Status: Completed infusion; IV Intake: 50ml lg3 02:46 Drug: NS 0.9% IV 1000 ml IV at 1 bolus Per protocol; 1000 mL bolus Route: IV; Rate: 1 lg3 bolus; Site: right jugular; :59 Follow up: IV Status: Completed infusion; IV Intake: 1000ml lg3 02:46 Drug: Norepinephrine IV 0.1 mcg/kg/min IV at calculated rate See Administration lg3 Instructions; (Standard concentration 4 mg / 250 mL D5W); Recommended max rate 3 mcg/kg/min; Titrate 0.05 mcg/kg/min as often as every 5 minutes to achieve goal (see titration policy); Goal parameter MAP greater than 65 mmHg. Route: IV; Rate: calculated rate; Site: right jugular; 07:00 Follow up: Response: No adverse reaction rs5 Disposition Summary: 11/10/23 03:55 Transfer Ordered Notes: Reason: Higher level of care sp4 Condition: Stable sp4 Problem: new sp4 Symptoms: have improved sp4 Transfer Location: Other Acute Care Facility(11/10/23 05:55) sp4 Accepting Physician: [facility] ICU attending(11/10/23 08:17) rs5 Diagnosis - Acute respiratory failure with hypoxia sp4 - Exhausted peripheral access, morbid obesity, obesity hypoventilation syndrome, sp4 generalized weakness, cardiogenic shock, hypercarbia Forms: - Medication Reconciliation Form sp4 - SBAR form sp4 Signatures: Dispatcher [employer] EDMS Able, Christine, RN RN lg3 Kay Jaramillo, RN RN jw7 Malcom Darden, RN RN rs5 Jens Flores MD MD sp4 Corrections: (The following items were deleted from the chart) 05:55 03:55 Moderate lateral and attending sp4 sp4 05:55 03:55 [facility] sp4 sp4 08:17 05:55 [facility] ICU attending sp4 rs5
--- NOTE | 2023-11-10 03:55 | ER ---
Nurse's Notes [facility] Name: Leandro Rand Age: 52 yrs Sex: Male : 1970 Arrival Date: 11/10/2023 Time: 00:01 Bed 7 Private MD: Diagnosis: Acute respiratory failure with hypoxia;Exhausted peripheral access, morbid obesity, obesity hypoventilation syndrome, generalized weakness, cardiogenic shock, hypercarbia Presentation: 11/10 00:10 Chief complaint: Spouse and/or significant other states: "He has been nauseous and jw7 vomiting since he got out of the hospital last and started having weakness today; he fell backwards and hit his head on the floor and afterwards started shaking and was nonreactive to everything around him". Coronavirus screen: At this time, the client does not indicate any symptoms associated with coronavirus-19. Ebola Screen: No symptoms or risks identified at this time. Initial Sepsis Screen: Does the patient meet any 2 criteria? RR > 20 per min. Systolic BP < 90 mmHg. HR > 90 bpm. Yes Does the patient have a suspected source of infection? No. Patient's initial sepsis screen is negative. Risk Assessment: Do you want to hurt yourself or someone else? Patient reports no desire to harm self or others. Onset of symptoms was November 05, 2023. 00:10 Method Of Arrival: EMS: [facility] 7 00:10 Acuity: FELI 2 jw7 Triage Assessment: 00:55 General: Appears distressed, uncomfortable, obese, Behavior is calm, cooperative, jw7 drowsy, flat. Pain: Denies pain. EENT: No deficits noted. No signs and/or symptoms were reported regarding the EENT system. Neuro: [place] Agitation-Sedation Scale (RASS): -1 Drowsy Level of Consciousness is awake, obeys commands, lethargic, Oriented to person, place, time, situation. Cardiovascular: Capillary refill < 3 seconds Clubbing of nail beds is absent JVD is absent Patient's skin is warm and dry. Rhythm is sinus rhythm. Respiratory: Airway is patent Trachea midline Respiratory effort is even, labored, Respiratory pattern is regular, symmetrical, tachypnea. GI: Abdomen is round non-distended, obese, Abd is soft and non tender X 4 quads. Reports nausea, vomiting. : No deficits noted. No signs and/or symptoms were reported regarding the genitourinary system. Derm: Skin is intact, is healthy with good turgor, Skin is diaphoretic, Skin is normal, Skin temperature is warm. Historical: - Allergies: 00:55 Segluromet; jw7 00:55 Synjardy; jw7 00:55 XIGDUO; jw7 - Home Meds: 00:55 Insulin [Active]; Metoprolol Tartrate Oral [Active]; Lipitor Oral [Active]; Metformin jw7 Oral [Active]; Water Pill [Active]; - PMHx: 00:55 COVID-19; Diabetes - IDDM; Diabetes - NIDDM; Hyperlipidemia; Myocardial infarction; jw7 Congestive heart failure; Lung Failure; - PSHx: 00:55 Left first finger amputation; Heart Cath; jw7 - Immunization history:: Adult Immunizations up to date, Client reports receiving the 2nd dose of the Covid vaccine, Flu vaccine is not up to date. - Social history:: Smoking status: Patient denies any tobacco usage or history of. Patient/guardian denies using alcohol, street drugs, IV drugs. - Family history:: not pertinent. Screenin:02 [facility] ED Fall Risk Assessment (Adult) History of falling in the last 3 months, jw7 including since admission Yes- single mechanical fall (1 pt) Confusion or Disorientation No (0 pts) Intoxicated or Sedated No (0 pts) Impaired Gait Yes (1 pt) Mobility Assist Device Used No (0 pt) Altered Elimination No (0 pt) Score/Fall Risk Level 3 or more points = High Risk Oriented to surroundings, Maintained a safe environment, Educated pt \\T\\ family on fall prevention, incl call for assistance when getting out of bed. Abuse screen: Denies threats or abuse. Denies injuries from another. Nutritional screening: No deficits noted. Tuberculosis screening: No symptoms or risk factors identified. Assessment: 01:03 General: see triage assessment. jw7 02:00 Reassessment: Patient appears in no apparent distress at this time. No changes from jw7 previously documented assessment. Patient and/or family updated on plan of care and expected duration. Pain level reassessed. Patient is alert, oriented x 3, equal unlabored respirations, skin warm/dry/pink. 03:00 Reassessment: Patient appears in no apparent distress at this time. No changes from jw7 previously documented assessment. Patient and/or family updated on plan of care and expected duration. Pain level reassessed. Patient is alert, oriented x 3, equal unlabored respirations, skin warm/dry/pink. 04:00 Reassessment: Patient appears in no apparent distress at this time. No changes from jw7 previously documented assessment. Patient and/or family updated on plan of care and expected duration. Pain level reassessed. Patient is alert, oriented x 3, equal unlabored respirations, skin warm/dry/pink. 04:58 Reassessment: Patient appears in no apparent distress at this time. No changes from lg3 previously documented assessment. Patient and/or family updated on plan of care and expected duration. Pain level reassessed. Patient is alert, oriented x 3, equal unlabored respirations, skin warm/dry/pink. 05:49 General: [phone] : Nelly Lord (). [facility] 05:51 Reassessment: Patient appears in no apparent distress at this time. No changes from jw7 previously documented assessment. Patient and/or family updated on plan of care and expected duration. Pain level reassessed. Patient is alert, oriented x 3, equal unlabored respirations, skin warm/dry/pink. 06:36 Reassessment: Patient appears in no apparent distress at this time. No changes from jw7 previously documented assessment. Patient and/or family updated on plan of care and expected duration. Pain level reassessed. Patient is alert, oriented x 3, equal unlabored respirations, skin warm/dry/pink. 07:05 General: Appears in no apparent distress. comfortable, Behavior is calm, cooperative. rs5 Pain: Denies pain. Neuro: Level of Consciousness is awake, alert, obeys commands, Oriented to person, place, time, situation. Cardiovascular: Heart tones S1 S2 present Rhythm is regular. Respiratory: Airway is patent Respiratory effort is even, unlabored, Respiratory pattern is regular, symmetrical, Breath sounds are clear bilaterally. Respiratory: Pt is on bipap Rate: 16, IPAP:14, EPAP:6. GI: Abdomen is non-distended, obese, Bowel sounds present X 4 quads. Abd is soft and non tender X 4 quads. : No signs and/or symptoms were reported regarding the genitourinary system. EENT: No signs and/or symptoms were reported regarding the EENT system. Derm: Skin is intact, Skin is dry, Skin is normal, Skin temperature is warm. Musculoskeletal: Range of motion: intact in all extremities. 08:13 Reassessment: EMS at bedside for transport. rs5 Vital Signs: 00:10 BP 93 / 57; Pulse 95; Resp 27; Temp 98.6; Pulse Ox 95% on 3 lpm NC; Weight 136.08 kg; jw7 Height 5 ft. 7 in. ; 01:04 BP 78 / 61; Pulse 95; Resp 28 S; Pulse Ox 100% on 3 lpm NC; jw7 02:14 BP 109 / 59; Pulse 93; Resp 31 S; Pulse Ox 97% on 2 lpm NC; lg3 02:46 BP 123 / 66; Pulse 94; Resp 29 S; Pulse Ox 94% on 2 lpm NC; lg3 03:14 BP 112 / 55; Pulse 92; Resp 28 S; Pulse Ox 100% on BiPAP; lg3 04:58 BP 128 / 68; Pulse 97; Resp 27 S; Pulse Ox 98% on BiPAP; lg3 05:40 BP 131 / 73; Pulse 98; Resp 25 S; Pulse Ox 99% on BiPAP; jw7 06:36 BP 132 / 75; Pulse 101; Resp 24 S; Pulse Ox 96% on BiPAP; jw7 08:16 BP 130 / 77; Pulse 102; Resp 24; Pulse Ox 98% on BiPAP; rs5 00:10 Body Mass Index 46.99 (136.08 kg, 170.18 cm) jw7 ED Course: 00:09 Patient arrived in ED. kl 00:23 Jens Flores MD is Attending Physician. sp4 00:37 EKG done, by ED staff, reviewed by Jens Flores MD. ls5 00:42 COVID swab sent to lab. Flu and/or RSV swab sent to lab. ls5 00:55 Triage completed. jw7 00:55 XRAY Chest (1 view) In Process Unspecified. EDMS 00:55 Arm band placed on. jw7 01:01 Missed attempt(s): 22 gauge in left forearm. Bleeding controlled, band aid applied, lg3 catheter tip intact. 01:01 Inserted saline lock: 24 gauge in left forearm, using aseptic technique. Blood lg3 collected. 01:02 Patient has correct armband on for positive identification. Bed in low position. Call jw7 light in reach. Side rails up X2. 01:18 Missed attempt(s): 22 gauge in right upper arm. 24 gauge in left forearm. kl 01:39 Assisted provider with central line placement. Set up central line tray. Triple lumen lg3 line placed in right internal jugular. Line placed by Jens Flores MD Placement verified by CXR, blood return, Blood was collected. Patient tolerated well. 04:17 Chest Single View XRAY: CVL placement In Process Unspecified. EDMS 04:42 Initiated transfer with Dominga at [facility]. rv1 06:[address] Duckworth to [facility] [place] S 09. rv1 08:16 Patient transferred, IV remains in place. rs5 Administered Medications: 01:01 Drug: Ondansetron IVP 4 mg IVP once; over 2 minutes Route: IVP; Site: left forearm; lg3 04:59 Follow up: Response: No adverse reaction lg3 01:02 Drug: Aspirin PO Chewable Tablet 324 mg PO once; 81 mg tablets x 4 Route: PO; lg3 05:00 Follow up: Response: No adverse reaction lg3 02:46 Drug: vancoMYCIN IVPB 2 grams IVPB at calculated rate once Route: IVPB; Rate: lg3 calculated rate; Site: right jugular; 04:59 Follow up: IV Status: Completed infusion; IV Intake: 250ml lg3 02:46 Drug: Albumin IVPB 25 grams 100 ml IVPB once; (Note: Albumin 25% concentration) Volume: lg3 100 ml; Route: IVPB; Site: right jugular; 04:59 Follow up: IV Status: Completed infusion; IV Intake: 50ml lg3 02:46 Drug: Albumin IVPB 25 grams 100 ml IVPB once; (Note: Albumin 25% concentration) Volume: lg3 100 ml; Route: IVPB; Site: right jugular; 04:59 Follow up: IV Status: Completed infusion; IV Intake: 50ml lg3 02:46 Drug: NS 0.9% IV 1000 ml IV at 1 bolus Per protocol; 1000 mL bolus Route: IV; Rate: 1 lg3 bolus; Site: right jugular; 04:59 Follow up: IV Status: Completed infusion; IV Intake: 1000ml lg3 02:46 Drug: Norepinephrine IV 0.1 mcg/kg/min IV at calculated rate See Administration lg3 Instructions; (Standard concentration 4 mg / 250 mL D5W); Recommended max rate 3 mcg/kg/min; Titrate 0.05 mcg/kg/min as often as every 5 minutes to achieve goal (see titration policy); Goal parameter MAP greater than 65 mmHg. Route: IV; Rate: calculated rate; Site: right jugular; 07:00 Follow up: Response: No adverse reaction rs5 Medication: 05:52 VIS not applicable for this client. jw7 Intake: 04:59 IV: 1000ml; Total: 1000ml. lg3 04:59 IV: 50ml; Total: 1050ml. lg3 04:59 IV: 50ml; Total: 1100ml. lg3 04:59 IV: 250ml; Total: 1350ml. lg3 Outcome: 03:55 ER care complete, transfer ordered by . sp4 08:16 Transferred by ground EMS rs5 08:16 Condition: stable 08:16 Discharge instructions given to patient, Instructed on the need for transfer, Demonstrated understanding of instructions, 08:17 Patient left the ED. rs5 Signatures: Dispatcher [employer] EDMS Sherri Holder RN RN kl Able, Lacie, RN RN lg3 Kay Jaramillo RN RN jw7 Villegas, Rebecca rv1 Malcom Darden RN RN rs5 Marcell Mei ls5 Jens Flores MD MD sp4 Corrections: (The following items were deleted from the chart) 03:15 02:46 BP 123 / 66; Pulse 94bpm; Resp 29bpm; Spontaneous; Pulse Ox 96% 2 lpm Nasal lg3 Cannula; lg3
[2023-11-10 08:33] VITALS: TEMP 98.6
[2023-11-10 08:51] VITALS: BP 130/77; O2SAT 98
--- NOTE | 2023-11-10 13:40 | EKG ---
Test Date: 2023-11-10 Test Time: 00:32:37 [employer] Turret Lathe Operator: KENNEY MEASUREMENT RESULTS: Intervals: Rate: 93 SD: 128 QRSD: 88 QT: 386 QTc: 479 [place]: P: 46 SD: 128 QRS: 2 T: 28 INTERPRETIVE STATEMENTS: Normal sinus rhythm Normal ECG Compared to ECG 10/27/2023 22:56:13 Myocardial infarct finding no longer present Electronically Signed On 11-10-23 13:38:42 [employer]VERTISING [employer]IC[employer] by Ceasar Nguyen
--- NOTE | 2023-11-10 21:28 | RAD REPORT ---
EXAM DESCRIPTION: Chest Single View [facility]: XR CHEST 1 VIEW CLINICAL HISTORY: 52 years Male, CHEST PAIN COMPARISON: 10/27/2023 FINDINGS: Single portable AP view of the chest. Trachea is midline. Normal size of the cardiac silho uette given technique. Probable soft tissue attenuation over the periphery of the chest. Cannot exclu de some underlying parenchymal opacities, particularly on the left. No pleural effusion or pneumothor ax. No acute osseous abnormality. IMPRESSION: Soft tissue attenuation over the periphery of the chest. Cannot exclude true parenchymal opacities, particularly on the left. Electronically signed by: Lyssa Jose MD 11/10/2023 01:33 AM OFFICE TECHNOLOGY INSTRUCTOR Due to temporary technical issues with the PACS/Fluency reporting system, reports are being signed by the in house radiologists without review as a courtesy to insure prompt reporting. The interpreting radiologist is fully responsible for the content of the report.
--- NOTE | 2023-11-10 21:42 | RAD REPORT ---
EXAM DESCRIPTION: XR Chest, 1 View CLINICAL HISTORY: The patient is 52 years old and is Male; CHEST PAIN TECHNIQUE: Single view of the chest. COMPARISON: November 10, 2023 12:43 AM. FINDINGS: Lungs: No pulmonary vascular congestion or consolidation. Pleural space: Unremarkable. No pneumothorax. Heart: The cardiac silhouette is enlarged versus artifact of AP technique. Mediastinum: Unremarkable. Normal mediastinal contour. Bones/joints: The bones and joints are unchanged as visualized. Tubes, lines and devices: Right IJ line is in the SVC. Upper abdomen: No free air in the visualized upper abdomen. IMPRESSION: Right IJ line is in the SVC. No pneumothorax. Electronically signed by: Mirtha Pollack MD 11/10/2023 04:45 AM TRAILER DRIVER Due to temporary technical issues with the PACS/Fluency reporting system, reports are being signed by the in house radiologists without review as a courtesy to insure prompt reporting. The interpreting radiologist is fully responsible for the content of the report.
== END 2023-11-10 08:17 ==
LOC: ER 00:01
PROC: 05HM33Z Insertion of Infusion Device into Right Internal Jugular Vein, Percutaneous Approach (ICD-10-PCS; principal; 2023-11-10)
DX: J96.01 Acute respiratory failure with hypoxia (principal); J96.02 Acute respiratory failure with hypercapnia; R57.0 Cardiogenic shock; E66.2 Morbid (severe) obesity with alveolar hypoventilation; Z68.42 Body mass index [BMI] 45.0-49.9, adult; E11.9 Type 2 diabetes mellitus without complications; I50.9 Heart failure, unspecified; I25.2 Old myocardial infarction; W18.30XA Fall on same level, unspecified, initial encounter; Z11.52 Encounter for screening for COVID-19; Z98.61 Coronary angioplasty status; Z88.8 Allergy status to other drugs, medicaments and biological substances; Z79.4 Long term (current) use of insulin
CPT/HCPCS: 93005; 87040 ×2; 85025; 80048; 36415; 83735; 85610; 82947; 80076; 83605; 84484; 83690; 83880; 0240U; 71045 ×2; 82805; 99291; 94660; 36556; J2001; J2405; P9047 ×2; J7050; J7030

== ENCOUNTER → 2024-02-16 | Emergency (ER) | payer OTHER ==
[~2024-02-16] MED LIST: MORPHINE 4 MG/ML SYR ONE; ONDANSETRON 4 MG/2 ML VIAL ONE
--- OUTSIDE RECORDS SUMMARY | 2024-02-16 10:58 | XMS REPORT | Continuity of Care Document ---
Author Name Unknown Address [address] [facility] [address] [place] [address] [facility] thconnect Address [address] [facility] 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 Name Role Phone ANSLEY GARIBAY Primary Care Physician Unav ailable WENDY MORENO Attending Clinician Unavailable Jeremias Ibarra Attending Clinician UnavailJOHN Edwards Attending Clinician Unav ailable LYUBOV FERNÁNDEZ Attending Clinician Unavailable MD LUIS ARMANDO Attending Clinician UnavailROHINI Cunningham Attending Clinician Unavailable MARCELLE ZHU Attending Clinician Unavailable [facility] Attending Clinicia shefali Unavailable RADHA GAMINO Attending Clinician Unavailable [facility] Attending Clinician Unavailable AKBAR JEREZ Attending Clinician Unavailable Florence Botello RN Attending Clinician [phone] CHOLO LOVE Attending Clinician Unavailable Murali Zafar MD Attending Clinician [phone] Dawna Kaur MD Attending Clinician [phone] Cholo Love MD Attending Clinician [phone] Horace MICHEL, Nata Rae Attending Clinician UnaJON Wiggins Attending Clinician Unavailable Gerson Palomino DO Attending Clinician [phone] Jon Cade MD Attending Clinician [phone] Lukasz Saul Attending Clinician Unavailable JAXON THOMAS Attending Clinician Unavailable JAI LOPEZ Attending Clinician Unavailable Sachin Mcallister DO Attending Clinician [phone] Jai Lopez MD Attending Clinician [phone] [place] Attending Clinician Unavailable SACHIN MCALLISTER Attending Clinician Unavailable Annette Lemus Attending Clinician [phone] GERSON GREENE Attending Clinician Unavailty Cervantes MD, Dustin Asher Attending Clinician [phone] Gerson Greene MD Attending Clinician + [phone] Doctor Unassigned, [place] Attending Clinician U Marlene Snyder Attending Clinician [phone] Jeremias Ibarra Admitting Clinician UnavailSang Cline Admitting Clinician Unavailable CHOLO LOVE Admitting Clinician Unavailable Cholo Love MD Admitting Clinician [phone] GERSON PALOMINO Admitting Clinician Unavailable SACHIN MCALLISTER Admitting Clinician Unavailable Sachin Mcallister DO Admitting Clinician [phone] Physician, No Primary or Family Admitting Clinic bill Unavailable Payers Payer Name Policy Type Policy Number Effective Date Expirati on Date Source LIZBETH QUIROS [employer] [employer] ON STAND 9 [id number] 2023 00:00:00 Problems Condition Name Condition Details [...] nausea present Disease Active 2021-11 00:00: 00 [facility] Intractabl e vomiting Intractabl e vomiting Disease Active 2021-11 00:00: 00 [facility] Tinea pedis Tinea pedis Disease Active 2021-11 00:00: 00 [facility] Chronic respirator y failure with hypoxia Chronic respirator y failure with hypoxia Disease Active 2021-11 00:00: 00 [facility] Type 2 diabetes mellitus without complicati on, without long-term current use of insulin Type 2 diabetes mellitus without complicati on, without long-term current use of insulin Disease Active 2021-11 00:00: 00 [facility] PAF (paroxysma l atrial fibrillati on) PAF (paroxysma l atrial fibrillati on) Disease Active 2021-11 00:00: 00 [facility] CHAPARRO (obstructi ve sleep apnea) CHAPARRO (obstructi ve sleep apnea) Disease Active 2021-11 006 00:00: 00 [facility] Chest pain, unspecifie d type Chest pain, unspecifie d type Disease Active 2021-11 0 00:00: 00 [facility] Morbid obesity with body mass index of 40.0-49.9 Morbid obesity with body mass index of 40.0-49.9 Disease Active 2021-11 0 00:00: 00 [facility] Elevated LFTs Elevated LFTs Disease Active 2021-11 0 00:00: 00 [facility] Diabetic ketoacidos is without coma associated with type 2 diabetes mellitus Diabetic ketoacidos is without coma associated with type 2 diabetes mellitus Disease Active 04-21 00:00: 00 [facility] Obesity (BMI 30-39.9) Obesity (BMI 30-39.9) Disease Active 04-21 00:00: 00 [facility] No known active problems No known active problems Disease [facility] Allergies, Adverse Reactions, Alerts Allergy Name Allergy Type Status Severity Reaction(s) Onset Date Inactive Date Treating Clinician Comments Source EMPAGLIF LOZIN DRUG INGREDI Active Other-Cmnt 2021-11 00:00: 00 [facility] Empaglif lozin Propensi ty to adverse reaction s to drug Active Other - See comments 2021-11 00:00: 00 DKTy [facility] Empaglif lozin Propensi ty to adverse reaction s Active Other 2021-11 00:00: 00 JEF Moy - Externa l No Known Allergie s DA Active U 2021-11 024 00:00: 00 [facility] NO KNOWN ALLERGIE S Drug Class Active [facility] Social History Social Habit Start Date Stop Date Quantity Comments Source Gender identity Maeve Moy - External Sexual orientation Jose Moy - External History of tobacco use Passive smoker [facility] Alcohol intake 2023-04-17 00:00:00 2023-04-17 00:00:00 Ex-drinker (finding) Maisha Moy - External History of Social function 2023-04-02 00:00:00 2023-04-02 00:00:00 Maisha Moy - External Tobacco use and exposure 2023-04-02 00:00:00 2023-04-02 00:00:00 Smokeless tobacco non-user Maisha Moy - External Exposure to SARS-CoV-2 (event) 2022-11-02 00:00:00 2022-11-12 00:35:[address] [facility] Sex Assigned At 1970 00:00:00 1970 00:00:00 Maisha Moy - External Smoking Status Start Date Stop Date Source Never smoked tobacco Maisha Manning External Ex-smoker 2022-09-03 00:00:00 2022-09-03 00:00:00 [facility] Medications Ordered Medication Name Filled Medication Name Start Date Stop Date Current Medication? Ordering Clinician Indication Dosage Frequency Signature (SIG) Comments Components Source Aspirin 81 MG oral Chewable Tablet 04-17 08:32: 54 Yes 81mg Take 1 tablet (81 mg total) by mouth daily Maisha constantino OZEMPIC (0.25 or 0.5 mg/dose) 2 mg/3 mL SQ Solution Pen-Injecto r 04-17 00:00: 00 Yes [id number] 3 .25mg Inject 0.25 mg into the skin once a week If tolerated after 4 weeks, increase to 0.5mg weekly Maisha constantino Metformin HCl 1000 MG oral Tablet 04-17 00:00: 00 Yes [id number] 3 1000mg Take 1 tablet (1,000 mg total) by mouth in the morning and 1 tablet (1,000 mg total) in the evening. Take with meals. Maisha constantino Atorvastati n Calcium 40 MG oral Tablet 04-17 00:00: 00 Yes [id number] 3 40mg Take 1 tablet (40 mg total) by mouth daily Maisha constantino Insulin Aspart (NovoLOG FlexPen) 100 UNIT/ML subcutaneou s Solution Pen-injecto r 04-17 00:00: 00 Yes [id number] 3 Use as directed three times daily, inject 24 units TID plus sliding scale. Max daily dose 80 units Maisha constantino Insulin Detemir (Levemir FlexPen) 100 UNIT/ML subcutaneou s Solution Pen-injecto r 04-17 00:00: 00 Yes [id number] 3 Inject 35 units twice daily Maisha constantino Insulin Pen Needle 31G X 5 MM does not apply Mis 04-17 00:00: 00 Yes [id number] 3 Inject insulin 5 times daily Maisha constantino Insulin Detemir (Levemir) 100 UNIT/ML subcutaneou s Solution 04-17 00:00: 00 04-17 00:00 :00 No [id number] 3 Inject 35 units twice dominguez Maisha constantino Insulin Pen Needle 31G X 5 MM does not apply [facility] 04-17 00:00: 00 04-17 00:00 :00 No [id number] 3 Inject insulin 5 times daily Maisha constantino Budesonide, Inhalation, 0.5 MG/2ML inhalation Suspension 04-14 00:00: 00 Yes [id number] .5mg Take 2 mL (0.5 mg total) by nebulizati on 2 times daily Maisha constantino OZEMPIC (0.25 or 0.5 mg/dose) 2 mg/3 mL SQ Solution Pen-Injecto r 04-13 00:00: 00 04-17 00:00 :00 No [id number] 3 .25mg Inject 0.25 mg into the [...] inhalation Inhalant Solution 04-08 00:00: 00 Yes [id number] 1.25mg Q.25D Take 3 mL (1.25 mg total) by nebulizati on every 6 hours as needed for wheezing Maisha constantino Amoxicillin -Pot Clavulanate 875-125 MG oral Tablet 04-08 00:00: 00 Yes [id number] 1{tbl} Take 1 tablet by mouth 2 times daily Maisha constantino Budesonide, Inhalation, 0.5 MG/2ML inhalation Suspension 04-08 00:00: 00 Yes [id number] .5mg Take 2 mL (0.5 mg total) [...] MG oral Tablet 04-08 00:00: 00 Yes [id number] 20mg Take 1 tablet (20 mg total) by mouth daily Maisha constantino Metoprolol Succinate 25 MG oral Capsule ER 24 Hour Sprinkle 04-08 00:00: 00 Yes [id number] 25mg Take 25 mg by mouth daily Maisha constantino Lisinopril 5 MG oral Tablet 04-08 00:00: 00 Yes [id number] 5mg Take 1 tablet (5 mg total) by mouth daily Maisha constantino Potassium Chloride Lanie ER 20 MEQ oral Tab CR tablet 04-08 00:00: 00 Yes [id number] 20meq Take 1 tablet (20 mEq total) by mouth daily Maisha constantino Albuterol Sulfate 1.25 MG/3ML inhalation Inhalant Solution 04-08 00:00: 00 Yes [id number] 1.25mg Q.25D Take 3 mL (1.25 mg total) by nebulizati on every 6 hours as needed for wheezing Maisha constantino Amoxicillin -Pot Clavulanate 875-125 MG oral Tablet 04-08 00:00: 00 Yes [id number] 1{tbl} Take 1 tablet by mouth 2 times daily Maisha constantino Furosemide (Lasix) 20 MG oral Tablet 04-08 00:00: 00 Yes [id number] 20mg Take 1 tablet (20 mg total) by mouth daily Maisha constantino Metoprolol Succinate 25 MG oral Capsule ER 24 Hour Sprinkle 04-08 00:00: 00 Yes [id number] 25mg Take 25 mg by mouth daily Maisha consatntino Lisinopril 5 MG oral Tablet 04-08 00:00: 00 Yes [id number] 5mg Take 1 tablet (5 mg total) by mouth daily Maisha constantino Potassium Chloride Lanie ER 20 MEQ oral Tab CR tablet 04-08 00:00: 00 Yes [id number] 20meq Take 1 tablet (20 mEq total) by mouth daily Maisha constantino Metoprolol Succinate 25 MG oral TABLET SR 24 HR 04-08 00:00: 00 Yes 25mg Take 1 tablet (25 mg total) by mouth daily Maisha constantino Insulin Detemir (Levemir) 100 UNIT/ML subcutaneou s Solution 04-08 00:00: 00 04-17 00:00 :00 No [id number] 3 Inject 30 units daily. Increase dosage by 2 units every 2 days until fasting glucose less than 140 or better. Max daily dose of 60 units Maisha constantino Insulin Aspart (NovoLOG FlexPen) 100 UNIT/ML subcutaneou s Solution Pen-injecto r 04-08 00:00: 00 04-17 00:00 :00 No [id number] 3 Use as directed three times daily, inject 10 units TID plus sliding scale. Max daily dose 60 units Maisha constantino predniSONE (DELTASONE) 10 MG oral tablet 510 00:00: 00 04-14 04:59 :00 No [id number] 40mg Take 4 tablets (40 mg total) [...] mg total) by mouth daily Maisha constantino [place]-[facility]-aci d Ethyl Esters 1 g oral Capsule [...] by mouth 2 times daily Maisha constantino [place]-[facility]-aci d Ethyl Esters 1 g oral Capsule [...] mg total) by mouth daily Maisha constantino [place]-[facility]-aci d Ethyl Esters 1 g oral Capsule [...] 81mg Take 81 mg by mouth daily. [facility] spironolact one 25 mg tablet 2021-11 15:36: 13 Yes 25mg Take 25 mg by mouth 2 (two) times daily. [facility] omega-3-dha -epa-dpa-fi sh oil (OMEGA-3 2099) 1,050-1,200 mg Cap 2021-11 15:36: 13 Yes Take by mouth 2 (two) times daily. [facility] METOPROLOL SUCCINATE ORAL 2021-11 15:36: 13 Yes 50mg Take 50 mg by mouth 2 (two) times daily. [facility] pantoprazol e 40 mg EC tablet 2021-11 15:36: 13 Yes 40mg Take 40 mg by mouth 2 (two) times daily. [facility] aspirin 81 mg chewable tablet 2021-11 15:36: 13 Yes 81mg Take 81 mg by mouth daily. [facility] spironolact one 25 mg tablet 2021-11 15:36: 13 Yes 25mg Take 25 mg by mouth 2 (two) times daily. [facility] omega-3-dha -epa-dpa-fi sh oil (OMEGA-3 2099) 1,050-1,200 mg Cap 2021-11 15:36: 13 Yes Take by mouth 2 (two) times daily. [facility] METOPROLOL SUCCINATE ORAL 2021-11 15:36: 13 Yes 50mg Take 50 mg by mouth 2 (two) times daily. [facility] pantoprazol e 40 mg EC tablet 2021-11 15:36: 13 Yes 40mg Take 40 mg by mouth 2 (two) times daily. [facility] atorvastati n 20 mg tablet 2021-11 11:58: 50 11-12 00:00 :00 No 40mg Take 40 mg by mouth at bedtime. [facility] famotidine 40 mg tablet 2021-11 11:58: 50 11-12 00:00 :00 No 40mg Take 40 mg by mouth daily. [facility] metoclopram nixon HCl (REGLAN) injection 10 mg 2021-11 19:45: 00 11-13 17:59 :00 No 10mg 10 mg, Slow IV Push, Q6H, 8 doses, First dose on Thu11/11/22 at 1345, Last dose on Thu11/13/22 at 0600, Routine [facility] potassium chloride in water 10 mEq/100 mL RTU 10 mEq 2021-11 15:00: 00 11-11 17:25 :00 No 10meq 10 mEq, IV Piggyback, Q1H, 2 doses, First dose on Thu11/11/22 at 0900, Last dose on Thu11/11/22 at 1000, Administer over 60 Minutes, 100 mL [facility] KCL (KLOR-CON M20) tablet 40 mEq 2021-11 14:15: 00 11-11 19:57 :00 No 40meq 40 mEq, Oral, Q2H, 3 doses, First dose on Thu11/11/22 at 0815, Last dose on Thu11/11/22 at 1200, Routine [facility] pantoprazol e (PROTONIX) EC tablet 40 mg 2021-11 02:00: 00 Yes 40mg 40 mg, Oral, BID, First dose on Thu11/10/22 at 2000, Until Discontinu ed, Routine [facility] potassium chloride in water 10 mEq/100 mL RTU 10 mEq 2021-11 23:45: 00 11-11 01:05 :00 No 10meq 10 mEq, IV Piggyback, ONCE, 1 dose, On Thu11/10/22 at 1745, Administer over 60 Minutes, 100 mL [facility] potassium chloride in water 10 mEq/100 mL RTU 10 mEq 2021-11 22:00: 00 11-10 22:59 :00 No 10meq 10 mEq, IV Piggyback, ONCE, 1 dose, On Thu11/10/22 at 1600, Administer over 60 Minutes, 100 mL [facility] potassium chloride in water 10 mEq/100 mL RTU 10 mEq 2021-11 17:00: 00 11-10 20:59 :00 No 10meq 10 mEq, IV Piggyback, Q1H, 4 doses, First dose on Thu11/10/22 at 1100, Last dose on Thu11/10/22 at 1400, Administer over 60 Minutes, 100 mL [facility] KCL (KLOR-CON M20) tablet 40 mEq 2021-11 15:45: 00 11-10 14:57 :00 No 40meq 40 mEq, Oral, ONCE, 1 dose, On Thu11/10/22 at 0945, Routine [facility] insulin glargine (LANTUS U-100) injection 10 Units 2021-11 15:00: 00 Yes 10U 10 Units, Subcutaneo us, DAILY, First dose on Thu11/10/22 at 0900, Until Discontinu ed, Routine [facility] aspirin chewable tablet 81 mg 2021-11 15:00: 00 Yes 81mg 81 mg, Oral, DAILY, First dose on Thu11/10/22 at 0900, Until Discontinu ed, Routine [facility] Sliding Scale Insulin - Lispro (HumaLOG) + Fsbg Testing 2021-11 14:00: 00 Yes Subcutaneo us, TID MEALS+HS, First dose (after last modificati on) on Thu11/10/22 at 0800, Until Discontinu ed, Routine [facility] metoprolol succinate XL (TOPROL XL) tablet 50 mg 2021-11 14:00: 00 Yes 50mg 50 mg, Oral, BID, First dose on Thu11/10/22 at 0800, Until Discontinu ed [facility] apixaban (ELIQUIS) tablet 5 mg 2021-11 14:00: 00 Yes [id number] 5mg 5 mg, Oral, BID, First dose on Thu11/10/22 at 0800, Until Discontinu ed, Routine
Indicatio ns: Non-Valvul ar Atrial Fibrillati on [facility] pantoprazol e (PROTONIX) injection 40 mg 2021-11 14:00: 00 11-10 21:04 :12 No 40mg 40 mg, Slow IV Push, Q12H, First dose on Thu11/10/22 at 0800, Until Discontinu ed [facility] spironolact one (ALDACTONE) tablet 25 mg 2021-11 14:00: 00 11-10 21:02 :33 No 25mg 25 mg, Oral, BID, First dose on Thu11/10/22 at 0800, Until Discontinu ed, Routine [facility] glucagon (GLUCAGEN DIAGNOSTIC KIT) injection 1 mg 2021-11 07:13: 25 Yes 1mg 1 mg, Intramuscu lar, PRN, Starting on Thu11/10/22 at 0113, Until Discontinu ed, [place], Blood Glucose < or = 70 mg/dL and patient is unable to swallow or has mental changes. [facility] dextrose 50 % in water (D50W) injection 25 mL 2021-11 07:13: 25 Yes 25mL 25 mL, Slow IV Push, PRN, Starting on Thu11/10/22 at 0113, Until Discontinu ed, [place], Blood Glucose < or = 70 mg/dL and patient is unable to swallow or has mental status changes. [facility] ondansetron (ZOFRAN (PF)) injection 4 mg 2021-11 07:13: 15 11-11 19:30 :03 No 4mg 4 mg, Slow IV Push, Q6HPRN, Starting on Thu11/10/22 at 0113, Until Thu11/11/22 at 1330, Routine, Nausea and Vomiting (N/V) [facility] HYDROcodone -acetaminop hen (NORCO) 10-325 mg tablet 1 tablet 2021-11 07:13: 12 Yes 1{tbl} 1 tablet, Oral, Q6HPRN, Starting on Thu11/10/22 at 0113, Until Discontinu ed, Routine, Pain (scale 7-10) [facility] acetaminoph en (TYLENOL) tablet 650 mg 2021-11 07:13: 06 Yes 650mg 650 mg, Oral, Q6HPRN, Starting on Thu11/10/22 at 0113, Until Discontinu ed, Routine, Pain (scale 1-3) [facility] potassium chloride in water 10 mEq/100 mL RTU 10 mEq 2021-11 06:00: 00 11-10 06:45 :00 No 10meq 10 mEq, IV Piggyback, ONCE, 1 dose, On 11/10/22 at 0000, Administer over 60 Minutes, 100 mL [facility] pantoprazol e (PROTONIX) injection 40 mg 2021-11 04:45: 00 11-10 05:14 :00 No 40mg 40 mg, Slow IV Push, ONCE, 1 dose, On 11/09/22 at 2245 [facility] NaCl 0.9% (NS) bolus infusion 1,000 mL 2021-11 04:15: 00 11-10 04:00 :00 No 1000mL at 999 mL/hr, 1,000 mL, IV Infusion, ONCE, 1 dose, On 11/09/22 at 2215, STAT [facility] metoclopram nixon HCl (REGLAN) injection 10 mg 2021-11 03:15: 00 11-10 03:54 :00 No 10mg 10 mg, Slow IV Push, ONCE, 1 dose, On 11/09/22 at 2115, [place] [facility] aspirin 81 mg chewable tablet 2021-11 01:13: 48 Yes 81mg Take 81 mg by mouth daily. [facility] spironolact one 25 mg tablet 2021-11 01:13: 48 Yes 25mg Take 25 mg by mouth 2 (two) times daily. [facility] omega-3-dha -epa-dpa-fi sh oil (OMEGA-3 2100) 1,050-1,200 mg Cap 2021-11 01:13: 48 Yes Take by mouth 2 (two) times daily. [facility] METOPROLOL SUCCINATE ORAL 2021-11 01:13: 48 Yes 50mg Take 50 mg by mouth 2 (two) times daily. [facility] atorvastati n 20 mg tablet 2021-11 01:13: 48 Yes 40mg Take 40 mg by mouth at bedtime. [facility] pantoprazol e 40 mg EC tablet 2021-11 01:13: 48 Yes 40mg Take 40 mg by mouth 2 (two) times daily. [facility] famotidine 40 mg tablet 2021-11 01:13: 48 Yes 40mg Take 40 mg by mouth daily. [facility] aspirin 81 mg chewable tablet 2021-11 01:13: 48 Yes 81mg Take 81 mg by mouth daily. [facility] spironolact one 25 mg tablet 2021-11 01:13: 48 Yes 25mg Take 25 mg by mouth 2 (two) times daily. [facility] omega-3-dha -epa-dpa-fi sh oil (OMEGA-3 2100) 1,050-1,200 mg Cap 2021-11 01:13: 48 Yes Take by mouth 2 (two) times daily. [facility] METOPROLOL SUCCINATE ORAL 2021-11 01:13: 48 Yes 50mg Take 50 mg by mouth 2 (two) times daily. [facility] atorvastati n 20 mg tablet 2021-11 01:13: 48 Yes 40mg Take 40 mg by mouth at bedtime. [facility] pantoprazol e 40 mg EC tablet 2021-11 01:13: 48 Yes 40mg Take 40 mg by mouth 2 (two) times daily. [facility] famotidine 40 mg tablet 2021-11 01:13: 48 Yes 40mg Take 40 mg by mouth daily. [facility] insulin glargine (LANTUS U-100) injection 10 Units 2021-11 15:00: 00 Yes 10U 10 Units, Subcutaneo us, DAILY, First dose (after last modificati on) on 11/08/22 at 0900, Until Discontinu ed, Routine [facility] insulin glargine 100 unit/mL injection 2021-11 00:00: 00 Yes [id number] 10U inject 10 Units under the skin daily. If not eating or if blood sugar is between 80 and 120 give HALF the dose. If blood sugar less than 80: Eat a meal and recheck. Give half dose of insulin once blood sugar over 120. [facility] insulin glargine 100 unit/mL injection 2021-11 00:00: 00 Yes [id number] 10U inject 10 Units under the skin daily. If not eating or if blood sugar is between 80 and 120 give HALF the dose. If blood sugar less than 80: Eat a meal and recheck. Give half dose of insulin once blood sugar over 120. [facility] insulin glargine 100 unit/mL injection 2021-11 00:00: 00 Yes [id number] 10U inject 10 Units under the skin daily. If not eating or if blood sugar is between 80 and 120 give HALF the dose. If blood sugar less than 80: Eat a meal and recheck. Give half dose of insulin once blood sugar over 120. [facility] insulin glargine 100 unit/mL injection 2021-11 00:00: 00 Yes [id number] 10U inject 10 Units under the skin daily. If not eating or if blood sugar is between 80 and 120 give HALF the dose. If blood sugar less than 80: Eat a meal and recheck. Give half dose of insulin once blood sugar over 120. [facility] insulin glargine 100 unit/mL injection 2021-11 00:00: 00 Yes [id number] 10U inject 10 Units under the skin daily. If not eating or if blood sugar is between 80 and 120 give HALF the dose. If blood sugar less than 80: Eat a meal and recheck. Give half dose of insulin once blood sugar over 120. [facility] insulin lispro (human) (HumaLOG U-100) injection 3 Units 2021-11 23:00: 00 Yes 3U 3 Units, Subcutaneo us, TID MEALS, First dose (after last modificati on) on Thu11/07/22 at 1700, Until Discontinu ed, Routine [facility] aspirin 81 mg chewable tablet 2021-11 17:37: 57 Yes 81mg Take 81 mg by mouth daily. [facility] spironolact one 25 mg tablet 2021-11 17:37: 57 Yes 25mg Take 25 mg by mouth 2 (two) times daily. [facility] omega-3-dha -epa-dpa-fi sh oil (OMEGA-3 2100) 1,050-1,200 mg Cap 2021-11 17:37: 57 Yes Take by mouth 2 (two) times daily. [facility] METOPROLOL SUCCINATE ORAL 2021-11 17:37: 57 Yes 50mg Take 50 mg by mouth 2 (two) times daily. [facility] atorvastati n 20 mg tablet 2021-11 17:37: 57 Yes 40mg Take 40 mg by mouth at bedtime. [facility] pantoprazol e 40 mg EC tablet 2021-11 17:37: 57 Yes 40mg Take 40 mg by mouth 2 (two) times daily. [facility] sodium phosphate 30 mmol in NaCl 0.9% (NS) 250 mL piggyback 2021-11 17:30: 00 11-07 21:49 :00 No 30mmol 30 mmol, IV Piggyback, ONCE, 1 dose, On Thu11/07/22 at 1130, Administer over 4 Hours, 250 mL [facility] apixaban (ELIQUIS) tablet 5 mg 2021-11 15:30: 00 Yes 5mg 5 mg, Oral, BID, First dose on Thu11/07/22 at 0930, Until Discontinu ed, Routine
Indicatio ns: Non-Valvul ar Atrial Fibrillati on [facility] aspirin chewable tablet 81 mg 2021-11 15:00: 00 Yes 81mg 81 mg, Oral, DAILY, First dose on Thu11/07/22 at 0900, Until Discontinu ed, Routine [facility] KCL (KLOR-CON M20) tablet 40 mEq 2021-11 15:00: 00 11-07 17:13 :00 No 40meq 40 mEq, Oral, ONCE, 1 dose, On Thu11/07/22 at 0900, Routine [facility] insulin regular, human (HUMULIN R U-500, CONC, INSULIN SC) 2021-11 14:59: 33 11-07 00:00 :00 No 35U inject 35 Units under the skin 2 (two) times daily. [facility] tirzepatide 5 mg/0.5 mL subcutaneou s injection 2021-11 14:59: 33 11-07 00:00 :00 No 5mg inject 5 mg under the skin weekly. [facility] metoprolol succinate XL (TOPROL XL) tablet 50 mg 2021-11 14:00: 00 Yes 50mg 50 mg, Oral, BID, First dose on Thu11/07/22 at 0800, Until Discontinu ed, Routine [facility] atorvastati n (LIPITOR) tablet 40 mg 2021-11 03:00: 00 Yes 40mg 40 mg, Oral, QHS, First dose on Thu11/06/22 at 2100, Until Discontinu ed, Routine [facility] Metformin HCl 1000 MG oral Tablet 2021-11 [...] times daily. Indication s: atrial fibrillati on [facility] tirzepatide (MOUNJARO) 7.5 mg/0.5 mL PnIj 2021-11 00:00: 00 Yes [id number] 7.5mg inject 7.5 mg under the skin weekly. [facility] metFORMIN 1,000 mg tablet 2021-11 00:00: 00 Yes [id number] 1000mg Take 1 tablet by mouth 2 (two) times daily with meals. [facility] insulin regular human (HUMULIN R) 500 unit/mL injection 2021-11 00:00: 00 Yes [id number] Do not take your scheduled regular insulin. [...] meal and cover again with sliding scale [facility] apixaban 5 mg tablet 2021-11 00:00: 00 Yes [id number] 5mg Take 1 tablet by mouth 2 (two) times daily. Indication s: atrial fibrillati on [facility] tirzepatide (MOUNJARO) 7.5 mg/0.5 mL PnIj 2021-11 00:00: 00 Yes [id number] 7.5mg inject 7.5 mg under the skin weekly. [facility] metFORMIN 1,000 mg tablet 2021-11 00:00: 00 Yes [id number] 1000mg Take 1 tablet by mouth 2 (two) times daily with meals. [facility] insulin regular human (HUMULIN R) 500 unit/mL injection 2021-11 00:00: 00 Yes [id number] Do not take your scheduled regular insulin. [...] meal and cover again with sliding scale [facility] apixaban 5 mg tablet 2021-11 00:00: 00 Yes [id number] 5mg Take 1 tablet by mouth 2 (two) times daily. Indication s: atrial fibrillati on [facility] tirzepatide (MOUNJARO) 7.5 mg/0.5 mL PnIj 2021-11 00:00: 00 Yes [id number] 7.5mg inject 7.5 mg under the skin weekly. [facility] metFORMIN 1,000 mg tablet 2021-11 00:00: 00 Yes [id number] 1000mg Take 1 tablet by mouth 2 (two) times daily with meals. [facility] insulin regular human (HUMULIN R) 500 unit/mL injection 2021-11 00:00: 00 Yes [id number] Do not take your scheduled regular insulin. [...] meal and cover again with sliding scale [facility] apixaban 5 mg tablet 2021-11 00:00: 00 Yes [id number] 5mg Take 1 tablet by mouth 2 (two) times daily. Indication s: atrial fibrillati on [facility] metFORMIN 1,000 mg tablet 2021-11 00:00: 00 Yes [id number] 1000mg Take 1 tablet by mouth 2 (two) times daily with meals. [facility] insulin regular human (HUMULIN R) 500 unit/mL injection 2021-11 00:00: 00 Yes [id number] Do not take your scheduled regular insulin. [...] meal and cover again with sliding scale [facility] apixaban 5 mg tablet 2021-11 00:00: 00 Yes [id number] 5mg Take 1 tablet by mouth 2 (two) times daily. Indication s: atrial fibrillati on [facility] metFORMIN 1,000 mg tablet 2021-11 00:00: 00 Yes [id number] 1000mg Take 1 tablet by mouth 2 (two) times daily with meals. [facility] insulin regular human (HUMULIN R) 500 unit/mL injection 2021-11 00:00: 00 Yes [id number] Do not take your scheduled regular insulin. [...] meal and cover again with sliding scale [facility] Metformin HCl 1000 MG oral Tablet 2021-11 [...] again with sliding scale Maisha Moy - Yoselin constantino tirzepatide (MOUNJARO) 7.5 mg/0.5 mL PnIj 2021-11 00:00: 00 11-12 00:00 :00 No [id number] 7.5mg inject 7.5 mg under the skin weekly. [facility] Sliding Scale Insulin - Lispro (HumaLOG) + Fsbg Testing 2022-1 2-08 23:00: 00 Yes Subcutaneo us, TID MEALS+HS, First dose on Thu11/06/22 at 1700, Until Discontinu ed, Routine [facility] insulin lispro (human) (HumaLOG U-100) injection 6 Units 2021-11 23:00: 00 11-07 20:55 :57 No 6U 6 Units, Subcutaneo us, TID MEALS, First dose on Thu11/06/22 at 1700, Until Discontinu ed, Routine [facility] enoxaparin (LOVENOX) injection 40 mg 2021-11 23:00: 00 11-07 15:23 :13 No 40mg 40 mg, Subcutaneo us, DAILY, First dose on Thu11/06/22 at 1700, Until Discontinu ed, Routine [facility] D5W-LR IV infusion 1,000 mL 2021-11 22:32: 00 Yes 1000mL at 150 mL/hr, IV Infusion, CONTINUOUS , Starting on Thu11/06/22 at 1645, Until Discontinu ed, Routine [facility] glucagon (GLUCAGEN DIAGNOSTIC KIT) injection 1 mg 2021-11 22:00: 35 Yes 1mg 1 mg, Intramuscu lar, PRN, Starting on Thu11/06/22 at 1600, Until Discontinu ed, [place], Blood Glucose < or = 70 mg/dL and patient is unable to swallow or has mental changes. [facility] dextrose 50 % in water (D50W) injection 25 mL 2021-11 22:00: 35 Yes 25mL 25 mL, Slow IV Push, PRN, Starting on Thu11/06/22 at 1600, Until Discontinu ed, [place], Blood Glucose < or = 70 mg/dL and patient is unable to swallow or has mental status changes. [facility] sodium bicarbonate 8.4 % (1 mEq/mL) injection 50 mEq 2021-11 16:15: 00 11-06 16:16 :00 No 50meq 50 mEq, Slow IV Push, ONCE, 1 dose, On Thu11/06/22 at 1015, Routine [facility] insulin glargine (LANTUS U-100) injection 20 Units 2021-11 15:30: 00 11-07 20:55 :57 No 20U 20 Units, Subcutaneo us, DAILY, First dose on Thu11/06/22 at 0930, Until Discontinu ed, Routine [facility] clotrimazol e (LOTRIMIN) 1 % topical cream 2021-11 15:00: 00 Yes Topical, DAILY, First dose on Thu11/06/22 at 0900, Until Discontinu ed, Routine [facility] morpHINE (2 mg/mL) injection 2 mg 2021-11 14:51: 00 11-06 16:16 :00 No 2mg 2 mg, Slow IV Push, ONCE, 1 dose, On Thu11/06/22 at 0900, Routine [facility] empaglifloz in-metformi n (SYNJARDY) 12.5-1,000 mg Tab 2021-11 14:36: 52 11-06 00:00 :00 No 2{tbl} Take 2 tablets by mouth 2 (two) times daily. [facility] D5W-LR IV infusion 1,000 mL 2021-11 12:45: 00 11-06 21:59 :42 No 1000mL at 200 mL/hr, IV Infusion, CONTINUOUS , Starting on Thu11/06/22 at 0645, Until Thu11/06/22 at 1559, Routine [facility] ondansetron (ZOFRAN (PF)) injection 4 mg 2021-11 11:51: 01 Yes 4mg 4 mg, Slow IV Push, Q6HPRN, Starting on Thu11/06/22 at 0551, Until Discontinu ed, [place], Nausea and Vomiting (N/V) [facility] acetaminoph en (TYLENOL) tablet 650 mg 2021-11 11:39: 11 Yes 650mg 650 mg, Oral, Q6HPRN, Starting on Thu11/06/22 at 0539, Until Discontinu ed, Routine, Pain (scale 4-6), Pain (scale 1-3), headache [facility] NaCl 0.9% (NS) bolus infusion 1,000 mL 2021-11 07:30: 00 11-06 08:22 :00 No 1000mL at 999 mL/hr, 1,000 mL, IV Infusion, ONCE, 1 dose, On Thu11/06/22 at 0130, STAT [facility] morpHINE (2 mg/mL) injection 4 mg 2021-11 07:15: 00 11-06 07:16 :00 No 4mg 4 mg, Slow IV Push, ONCE, 1 dose, On Thu11/06/22 at 0115, Routine [facility] iopamidol (ISOVUE 370-500 mL) injection 150 mL 2021-11 07:00: 00 11-06 07:00 :00 No [id number] 150mL 150 mL, Intravenou s, ONCE, 1 dose, On Thu11/06/22 at 0100, Routine [facility] NaCl 0.45% (1/2NS) 1000 mL + KCL 20 mEq 2021-11 06:45: 00 11-06 11:36 :49 No 1000mL [facility] D5W 0.45% NaCl (1/2NS) 1 L + KCL 20 mEq 2021-11 06:43: 25 11-06 11:36 :49 No IV Infusion, at 200 mL/hr, PRN - SEE INSTRUCTIO NS, Starting on Thu11/06/22 at 0043, Until Thu11/06/22 at 0536, [place], Blood glucose control [facility] acetaminoph en (TYLENOL) tablet 975 mg 2021-11 05:30: 00 11-06 04:58 :00 No 975mg 975 mg, Oral, ONCE, 1 dose, On Thu11/05/22 at 2330, [place] [facility] ondansetron (ZOFRAN (PF)) injection 4 mg 2021-11 05:30: 00 11-06 04:57 :00 No 4mg 4 mg, Slow IV Push, ONCE, 1 dose, On Thu11/05/22 at 2330, [place] [facility] sulfur hexafluorid e microsphr (LUMASON) injection 5 mL 2021-11 17:15: 00 09-04 17:15 :00 No [id number] 5mL 5 mL, Intravenou s, ONCE, 1 dose, On [place] 09/04/22 at 1215, Routine
faculty member approving Restricted medication : MAURA QUEEN [facility] aspirin 81 mg chewable tablet 2021-11 14:37: 28 Yes 81mg Take 81 mg by mouth daily. [facility] empaglifloz in-metformi n (SYNJARDY) 12.5-1,000 mg Tab 2021-11 14:37: 28 Yes 2{tbl} Take 2 tablets by mouth 2 (two) times daily. [facility] spironolact one 25 mg tablet 2021-11 14:37: 28 Yes 25mg Take 25 mg by mouth 2 (two) times daily. [facility] omega-3-dha -epa-dpa-fi sh oil (OMEGA-3 2100) 1,050-1,200 mg Cap 2021-11 14:37: 28 Yes Take by mouth 2 (two) times daily. [facility] METOPROLOL SUCCINATE ORAL 2021-11 14:37: 28 Yes 50mg Take 50 mg by mouth 2 (two) times daily. [facility] atorvastati n 20 mg tablet 2021-11 14:37: 28 Yes 40mg Take 40 mg by mouth at bedtime. [facility] pantoprazol e 40 mg EC tablet 2021-11 14:37: 28 Yes 40mg Take 40 mg by mouth 2 (two) times daily. [facility] insulin regular, human (HUMULIN R U-500, CONC, INSULIN SC) 2021-11 14:37: 28 Yes 35U inject 35 Units under the skin 2 (two) times daily. [facility] tirzepatide 5 mg/0.5 mL subcutaneou s injection 2021-11 0 14:37: 28 Yes 5mg inject 5 mg under the skin weekly. [facility] SITagliptin (JANUVIA) tablet 50 mg 2021-11 0 14:00: 00 Yes 50mg 50 mg, Oral, DAILY, First dose on Thu09/04/22 at 0900, Until Discontinu ed, Routine [facility] insulin glargine,heydi m.rec.anlog (TOTRE SOLOSTAR U-300 INSULIN SC) 2021-11 0 13:06: 04 09-04 00:00 :00 No inject under the skin. [facility] apixaban (ELIQUIS) 5 mg tablet 2021-11 0 13:06: 04 09-04 00:00 :00 No 5mg Take 5 mg by mouth 2 (two) times daily. [facility] enoxaparin (LOVENOX) injection 40 mg 2021-11 0 05:45: 00 Yes 40mg 40 mg, Subcutaneo us, Q24H, First dose on Thu09/04/22 at 0045, Until Discontinu ed, Routine [facility] sennosides (SENOKOT) tablet 8.6 mg 2021-11 0 04:45: 00 Yes 8.6mg 8.6 mg, Oral, BID, First dose on Thu09/03/22 at 2345, Until Discontinu ed, Routine [facility] docusate (COLACE) capsule 100 mg 2021-11 0 04:45: 00 Yes 100mg 100 mg, Oral, BID, First dose on Thu09/03/22 at 2345, Until Discontinu ed, Routine [facility] aspirin chewable tablet 81 mg 2021-11 0 04:45: 00 Yes 81mg 81 mg, Oral, QAM WITH BREAKFAST, First dose on Thu09/03/22 at 2345, Until Discontinu ed, Routine [facility] sucralfate (CARAFATE) 100 mg/mL suspension 1,000 mg 2021-11 0-06 04:45: 00 Yes 1g 1,000 mg (1 g), Oral, AC+HS, First dose on Thu09/03/22 at 2345, Until Discontinu ed, Routine [facility] pantoprazol e (PROTONIX) injection 40 mg 2021-11 0-06 04:45: 00 Yes 40mg 40 mg, Slow IV Push, Q12H, First dose on Thu09/03/22 at 2345, Until Discontinu ed [facility] metoprolol tartrate (LOPRESSOR) tablet 50 mg 2021-11 0-06 04:45: 00 Yes 50mg 50 mg, Oral, BID, First dose on Thu09/03/22 at 2345, Until Discontinu ed, Routine [facility] insulin NPH and regular human 70-30 (70-30 U-100 INSULIN) 100 unit/mL (70-30) injection 35 Units 2021-11 0-06 04:45: 00 Yes 35U 35 Units, Subcutaneo us, BIDAC, First dose on Thu09/03/22 at 2345, Until Discontinu ed, Routine [facility] atorvastati n (LIPITOR) tablet 40 mg 2021-11 0-06 04:45: 00 Yes 40mg 40 mg, Oral, QHS, First dose on Thu09/03/22 at 2345, Until Discontinu ed, Routine [facility] furosemide (LASIX) injection 20 mg 2021-11 0-06 04:45: 00 09-04 13:50 :16 No 20mg 20 mg, IV Push, Q8H, First dose on Thu09/03/22 at 2345, Until Discontinu ed, [place] [facility] ondansetron (ZOFRAN (PF)) injection 4 mg 2021-11 0-06 04:33: 54 Yes 4mg 4 mg, Slow IV Push, Q6HPRN, Starting on Thu09/03/22 at 2333, Until Discontinu ed, Routine, Nausea and Vomiting (N/V) [facility] Sliding Scale Insulin - Lispro (HumaLOG) + Fsbg Testing 2021-11 0-06 04:30: 00 Yes Subcutaneo us, TID MEALS+HS, First dose on Thu09/03/22 at 2330, Until Discontinu ed, Routine [facility] nitroglycer in (NITROSTAT) sublingual tablet 0.4 mg 2021-11 0 22:30: 00 09-03 22:34 :00 No .4mg 0.4 mg, Sublingual , ONCE, 1 dose, On Thu09/03/22 at 1730, [place] [facility] magnesium oxide (MAG-OX 400) tablet 400 mg 04-24 01:00: 00 04-25 12:59 :00 No 400mg 400 mg, Oral, BID, 3 doses, First dose on Thu04/23/22 at 1999, Last dose on Thu04/24/22 at 1999, Routine [facility] maalox:diph enhydrAMINE :lidocaine 2 % viscous 1:1:1 (FIRST-MOUT HWASH BLM) oral suspension 15 mL 04-23 15:47: 15 Yes 15mL 15 mL, Oral, QDAILYPRN, Starting on Thu04/23/22 at 1047, Until Discontinu ed, Routine, indigestio n [facility] insulin glargine,heydi longrec.anlog (CHIOMA SOLMIKEAR U-300 INSULIN SC) 04-23 15:15: 25 Yes inject under the skin. [facility] aspirin 81 mg chewable tablet 04-23 15:15: 25 Yes 81mg Take 81 mg by mouth daily. [facility] empaglifloz in-metformi n (SYNJARDY) 12.5-1,000 mg Tab 04-23 15:15: 25 Yes 2{tbl} Take 2 tablets by mouth 2 (two) times daily. [facility] apixaban (ELIQUIS) 5 mg tablet 04-23 15:15: 25 Yes 5mg Take 5 mg by mouth 2 (two) times daily. [facility] spironolact one 25 mg tablet 04-23 15:15: 25 Yes 25mg Take 25 mg by mouth 2 (two) times daily. [facility] insulin glargineheydi.rec.anlog (TOUERICKO SOLOSTAR U-300 INSULIN SC) 04-23 15:15: 25 Yes inject under the skin. [facility] aspirin 81 mg chewable tablet 04-23 15:15: 25 Yes 81mg Take 81 mg by mouth daily. [facility] empaglifloz in-metformi n (SYNJARDY) 12.5-1,000 mg Tab 04-23 15:15: 25 Yes 2{tbl} Take 2 tablets by mouth 2 (two) times daily. [facility] apixaban (ELIQUIS) 5 mg tablet 04-23 15:15: 25 Yes 5mg Take 5 mg by mouth 2 (two) times daily. [facility] spironolact one 25 mg tablet 04-23 15:15: 25 Yes 25mg Take 25 mg by mouth 2 (two) times daily. [facility] KCL (KLOR-CON M20) tablet 40 mEq 04-23 14:15: 00 04-23 15:57 :00 No 40meq 40 mEq, Oral, ONCE, 1 dose, On Thu04/23/22 at 0915, Routine [facility] insulin glargineheydi.rec.anlog (LANTUS SC) 04-23 10:54: 04-23 00:00 :00 No inject under the skin. [facility] sitagliptin phosphate (JANUVIA ORAL) 04-23 10:54: 04-23 00:00 :00 No Take by mouth. [facility] atorvastati n calcium (LIPITOR ORAL) 04-23 10:54: 04-23 00:00 :00 No 40mg Take 40 mg by mouth. [facility] METOPROLOL TARTRATE ORAL 04-23 10:54: 04-23 00:00 :00 No 50mg Take 50 mg by mouth 2 (two) times daily. [facility] morpHINE (2 mg/mL) injection 2 mg 04-23 10:16: 57 Yes [id number] 2mg 2 mg, Slow IV Push, Q4HPRN, Starting on Thu04/23/22 at 0516, Until Discontinu ed, Routine, Pain (scale 7-10) [facility] Sliding Scale Insulin - Lispro (HumaLOG) + Fsbg Testing 04-23 03:00: 00 Yes Subcutaneo us, Q3H, First dose on Thu04/22/22 at 2200, Until Discontinu ed, Routine [facility] insulin glargine (LANTUS U-100) injection 25 Units 04-23 03:00: 00 Yes 25U 25 Units, Subcutaneo us, Q12H, First dose on Thu04/22/22 at 2200, Until Discontinu ed, Routine [facility] glucagon (GLUCAGEN DIAGNOSTIC KIT) injection 1 mg 04-23 02:55: 16 Yes 1mg 1 mg, Intramuscu lar, PRN, Starting on Thu04/22/22 at 2155, Until Discontinu ed, [place], Blood Glucose < or = 70 mg/dL and patient is unable to swallow or has mental changes. [facility] dextrose 50 % in water (D50W) injection 25 mL 04-23 02:55: 16 Yes 25mL 25 mL, Slow IV Push, PRN, Starting on Thu04/22/22 at 2155, Until Discontinu ed, [place], Blood Glucose < or = 70 mg/dL and patient is unable to swallow or has mental status changes. [facility] sucralfate 1 gram tablet 04-23 00:00: 00 05-24 04:59 :00 No [id number] 1g Take 1 tablet by mouth before meals and at bedtime for 30 days. [facility] pantoprazol e 40 mg EC tablet 04-23 00:00: 00 05-24 04:59 :00 No [id number] 40mg Take 1 tablet by mouth 2 (two) times daily for 30 days. [facility] metoprolol tartrate 50 mg tablet 04-23 00:00: 00 05-24 04:59 :00 No [id number] 50mg Take 1 tablet by mouth 2 (two) times daily for 30 days. [facility] atorvastati n (LIPITOR) 40 mg tablet 04-23 00:00: 00 05-24 04:59 :00 No [id number] 40mg Take 1 tablet by mouth at bedtime for 30 days. [facility] sucralfate 1 gram tablet 04-23 00:00: 00 05-24 04:59 :00 No [id number] 1g Take 1 tablet by mouth before meals and at bedtime for 30 days. [facility] pantoprazol e 40 mg EC tablet 04-23 00:00: 00 05-24 04:59 :00 No [id number] 40mg Take 1 tablet by mouth 2 (two) times daily for 30 days. [facility] metoprolol tartrate 50 mg tablet 04-23 00:00: 00 05-24 04:59 :00 No [id number] 50mg Take 1 tablet by mouth 2 (two) times daily for 30 days. [facility] atorvastati n (LIPITOR) 40 mg tablet 04-23 00:00: 00 05-24 04:59 :00 No [id number] 40mg Take 1 tablet by mouth at bedtime for 30 days. [facility] magnesium oxide 420 mg Tab 04-23 00:00: 00 05-09 04:59 :00 No [id number] 400mg Take 400 mg by mouth daily for 15 days. [facility] magnesium oxide 420 mg Tab 04-23 00:00: 00 05-09 04:59 :00 No [id number] 400mg Take 400 mg by mouth daily for 15 days. [facility] sucralfate (CARAFATE) tablet 1 g 04-22 21:30: 00 Yes 1g 1 g, Oral, AC+HS, First dose on Thu04/22/22 at 1630, Until Discontinu ed, Routine [facility] morpHINE (4 mg/mL) injection 2 mg 04-22 16:15: 00 04-22 15:15 :00 No [id number] 2mg 2 mg, Slow IV Push, ONCE, 1 dose, On Thu04/22/22 at 1115, Routine [facility] SITagliptin (JANUVIA) tablet 50 mg 04-22 14:00: 00 Yes 50mg 50 mg, Oral, DAILY, First dose on Thu04/22/22 at 0900, Until Discontinu ed [facility] aspirin chewable tablet 81 mg 04-22 14:00: 00 Yes 81mg 81 mg, Oral, DAILY, First dose on Thu04/22/22 at 0900, Until Discontinu ed, Routine [facility] metoprolol tartrate (LOPRESSOR) tablet 25 mg 04-22 13:00: 00 Yes 25mg 25 mg, Oral, BID, First dose on Thu04/22/22 at 0800, Until Discontinu ed, Routine [facility] apixaban (ELIQUIS) tablet 5 mg 04-22 13:00: 00 Yes 5mg 5 mg, Oral, BID, First dose on Thu04/22/22 at 0800, Until Discontinu ed, Routine
Indicatio ns: Non-Valvul ar Atrial Fibrillati on [facility] pantoprazol e (PROTONIX) EC tablet 40 mg 04-22 13:00: 00 Yes 40mg 40 mg, Oral, BID, First dose on Thu04/22/22 at 0800, Until Discontinu ed, Routine [facility] D5W 0.9% NaCl (NS) 1 L + KCL 40 mEq 04-22 13:00: 00 04-23 02:32 :18 No IV Infusion, at 200 mL/hr, CONTINUOUS , Starting on Thu04/22/22 at 0800, Until Thu04/22/22 at 2132, Routine [facility] ondansetron (ZOFRAN (PF)) injection 4 mg 04-22 12:18: 40 Yes 4mg 4 mg, Slow IV Push, Q6HPRN, Nausea and Vomiting (N/V), Starting on Thu04/22/22 at 0718
Do ses of ondansetro n 16 mg and above need to be administer ed via IV piggyback. For Dose >=24mg ECG monitoring is advisable.
[facility] atorvastati n (LIPITOR) tablet 40 mg 04-22 02:00: 00 Yes 40mg 40 mg, Oral, QHS, First dose on Thu04/21/22 at 2100, Until Discontinu ed, Routine [facility] pantoprazol e (PROTONIX) injection 40 mg 04-22 01:00: 00 04-22 00:00 :00 No [id number] 40mg 40 mg, Slow IV Push, ONCE, 1 dose, On Thu04/21/22 at 1999 [facility] NaCl 0.9% (NS) bolus infusion 2,000 mL 04-22 01:00: 00 04-21 23:59 :00 No [id number] 2000mL at 999 mL/hr, 2,000 mL, IV Infusion, ONCE, 1 dose, On Thu04/21/22 at 2000, [facility] ondansetron (ZOFRAN (PF)) injection 4 mg 04-22 00:30: 00 04-21 23:26 :00 No [id number] 4mg 4 mg, Slow IV Push, ONCE, 1 dose, On Thu04/21/22 at 1930, [facility] morpHINE (4 mg/mL) injection 4 mg 04-22 00:30: 00 04-21 23:26 :00 No [id number] 4mg 4 mg, Slow IV Push, ONCE, 1 dose, On Thu04/21/22 at 1930, STAT [facility] D5W 0.45% NaCl (1/2NS) IV infusion 1,000 mL 04-22 00:21: 22 04-22 11:50 :31 No [id number] 1000mL at 200 mL/hr, 1,000 mL, IV Infusion, PRN - SEE INSTRUCTIO NS, Starting on Thu04/21/22 at 1921, Until Thu04/22/22 at 0650, [place] [facility] iopamidol (ISOVUE 370-500 mL) injection 120 mL 04-21 22:15: 00 04-22 00:26 :00 No [id number] 120mL 120 mL, Intravenou s, ONCE, 1 dose, On Thu04/21/22 at 1715, Routine [facility] esomeprazol e magnesium (NEXIUM ORAL) 2020-11 14:20: 21 09-30 00:00 :00 No Take by mouth. [facility] insulin glargineheydi.rec.anlog (LANTUS SC) 2020-11 13:40: 16 Yes inject under the skin. [facility] insulin glargineheydi.rec.anlog (TOUJEO SOLOSTAR U-300 INSULIN SC) 2020-11 13:40: 16 Yes inject under the skin. [facility] sitagliptin phosphate (JANUVIA ORAL) 2020-11 13:40: 16 Yes Take by mouth. [facility] atorvastati n calcium (LIPITOR ORAL) 2020-11 13:40: 16 Yes Take by mouth. [facility] METOPROLOL TARTRATE ORAL 2020-11 13:40: 16 Yes Take by mouth. [facility] aspirin 81 mg chewable tablet 2020-11 13:40: 16 Yes 81mg Take 81 mg by mouth daily. [facility] pantoprazol e 40 mg EC tablet 2020-11 00:00: 00 Yes [id number] 40mg Take 1 tablet by mouth 2 (two) times daily. [facility] pantoprazol e 40 mg EC tablet 2020-11 00:00: 00 04-23 00:00 :00 No [id number] 40mg Take 1 tablet by mouth 2 (two) times daily. [facility] sucralfate 1 gram tablet 07-02 00:00: 00 Yes [id number] 1g Take 1 tablet by mouth before meals and at bedtime. [facility] ondansetron (ZOFRAN ODT) 4 mg disintegrat ing tablet 07-02 00:00: 00 Yes [id number] 4mg Take 1 tablet by mouth every 8 (eight) hours as needed for Nausea and Vomiting (N/V). [facility] ondansetron (ZOFRAN ODT) 4 mg disintegrat ing tablet 07-02 00:00: 00 Yes [id number] 4mg Take 1 tablet by mouth every 8 (eight) hours as needed for Nausea and Vomiting (N/V). [facility] ondansetron (ZOFRAN ODT) 4 mg disintegrat ing tablet 07-02 00:00: 00 Yes [id number] 4mg Take 1 tablet by mouth every 8 (eight) hours as needed for Nausea and Vomiting (N/V). [facility] ondansetron (ZOFRAN ODT) 4 mg disintegrat ing tablet 07-02 00:00: 00 Yes [id number] 4mg Take 1 tablet by mouth every 8 (eight) hours as needed for Nausea and Vomiting (N/V). [facility] ondansetron (ZOFRAN ODT) 4 mg disintegrat ing tablet 07-02 00:00: 00 Yes [id number] 4mg Take 1 tablet by mouth every 8 (eight) hours as needed for Nausea and Vomiting (N/V). [facility] ondansetron (ZOFRAN ODT) 4 mg disintegrat ing tablet 07-02 00:00: 00 Yes [id number] 4mg Take 1 tablet by mouth every 8 (eight) hours as needed for Nausea and Vomiting (N/V). [facility] ondansetron (ZOFRAN ODT) 4 mg disintegrat ing tablet 07-02 00:00: 00 Yes [id number] 4mg Take 1 tablet by mouth every 8 (eight) hours as needed for Nausea and Vomiting (N/V). [facility] ondansetron (ZOFRAN ODT) 4 mg disintegrat ing tablet 07-02 00:00: 00 Yes [id number] 4mg Take 1 tablet by mouth every 8 (eight) hours as needed for Nausea and Vomiting (N/V). [facility] ondansetron (ZOFRAN ODT) 4 mg disintegrat ing tablet 07-02 00:00: 00 Yes [id number] 4mg Take 1 tablet by mouth every 8 (eight) hours as needed for Nausea and Vomiting (N/V). [facility] sucralfate 1 gram tablet 07-02 00:00: 00 04-23 00:00 :00 No [id number] 1g Take 1 tablet by mouth before meals and at bedtime. [facility] Vital Signs Vital Name Observation Time Observation Value Comments S ource Systolic blood pressure 2023-04-17 13:42:00 124 mm[Hg] Maisha Seybo ld - External Diastolic blood pressure 2023-04-17 13:42:00 72 mm[Hg] Maisha orianao ld - External Heart rate 2023-04-17 13:42:00 81 /min Tamara daly violeta - External Body temperature 2023-04-17 13:42:00 37.11 Chen Maisha ybold - External Respiratory rate 2023-04-17 13:42:00 18 /min Maisha Moy - External Body height 2023-04-17 13:42:00 170.2 cm Maeve pedersen ybold - External Body weight 2023-04-17 13:42:00 129.729 kg Maeve pedersen ybold - External BMI 2023-04-17 13:42:00 44.79 kg/m2 Maeve pedersen Seybold - External Systolic blood pressure 2023-04-08 13:05:00 106 mm[Hg] Maisha orianao ld - External Diastolic blood pressure 2023-04-08 13:05:00 74 mm[Hg] Maisha Gambinoo ld - External Heart rate 2023-04-08 13:05:00 84 /min Alexse y Seybold - External Body temperature 2023-04-08 13:05:00 36.06 Chen Maisha Seybold - External Respiratory rate 2023-04-08 13:05:00 15 /min Maisha Seybold - External Body height 2023-04-08 13:05:00 170.2 cm aMeve ey Seybold - External Body weight 2023-04-08 13:05:00 129.275 kg Maeve ey Seybold - External BMI 2023-04-08 13:05:00 44.64 kg/m2 Maeve ey Seybold - External Oxygen saturation in Arterial blood by Pulse oximetry 2023-04-08 13:05:00 90 /min Maisha Gambinoo ld - External Systolic blood pressure 2023-04-02 13:42:00 128 mm[Hg] Maisha Goddardybo ld - External Diastolic blood pressure 2023-04-02 13:42:00 72 mm[Hg] Maisha Gambinoo ld - External Heart rate 2023-04-02 13:42:00 82 /min Alexse y Seybold - External Body temperature 2023-04-02 13:42:00 36.44 Chen Maisha Seybold - External Respiratory rate 2023-04-02 13:42:00 18 /min Maisha Goddardybold - External Body height 2023-04-02 13:42:00 170.2 cm Maeve ey Seybold - External Body weight 2023-04-02 13:42:00 127.914 kg Maeve ey Seybold - External BMI 2023-04-02 13:42:00 44.17 kg/m2 Maeve ey Seybold - External Body temperature 2022-11-12 18:00:[address] [facility] Systolic blood pressure 2022-11-12 17:00:00 113 mm[Hg] [facility] Diastolic blood pressure 2022-11-12 17:00:00 67 mm[Hg] [facility] Heart rate 2022-11-12 17:00:00 91 /min [facility] Respiratory rate 2022-11-12 17:00:00 25 /min [facility] Oxygen saturation in Arterial blood by Pulse oximetry 2022-11-12 17:00:00 93 /min [facility] Body weight 2022-11-12 09:42:00 117.981 kg [facility] BMI 2022-11-12 09:42:00 40.74 kg/m2 [facility] Body height 2022-11-10 06:00:00 170.2 cm [facility] Systolic blood pressure 2022-11-07 17:53:00 106 mm[Hg] [facility] Diastolic blood pressure 2022-11-07 17:53:00 70 mm[Hg] [facility] Heart rate 2022-11-07 17:53:00 102 /min [facility] Body temperature 2022-11-07 17:53:[address] [facility] Respiratory rate 2022-11-07 17:53:00 22 /min [facility] Oxygen saturation in Arterial blood by Pulse oximetry 2022-11-07 17:53:00 95 /min [facility] Body height 2022-11-06 11:30:00 170.2 cm [facility] Body weight 2022-11-06 11:30:00 116.5 kg [facility] BMI 2022-11-06 11:30:00 40.23 kg/m2 [facility] Systolic blood pressure 2022-09-04 17:00:00 129 mm[Hg] [facility] Diastolic blood pressure 2022-09-04 17:00:00 84 mm[Hg] [facility] Heart rate 2022-09-04 17:00:00 85 /min [facility] Oxygen saturation in Arterial blood by Pulse oximetry 2022-09-04 17:00:00 94 /min [facility] Body temperature 2022-09-04 16:21:[address] [facility] Respiratory rate 2022-09-04 16:21:00 18 /min [facility] Body height 2022-09-03 22:04:00 170.2 cm [facility] Body weight 2022-09-03 22:04:00 122.834 kg [facility] BMI 2022-09-03 22:04:00 42.41 kg/m2 [facility] Systolic blood pressure 2022-04-23 18:00:00 109 mm[Hg] [facility] Diastolic blood pressure 2022-04-23 18:00:00 56 mm[Hg] [facility] Heart rate 2022-04-23 18:00:00 85 /min [facility] Respiratory rate 2022-04-23 18:00:00 20 /min [facility] Oxygen saturation in Arterial blood by Pulse oximetry 2022-04-23 17:00:00 97 /min [facility] Body temperature 2022-04-23 16:30:[address] [facility] Body height 2022-04-21 22:46:00 170.2 cm [facility] Body weight 2022-04-21 22:46:00 113.399 kg [facility] BMI 2022-04-21 22:46:00 39.16 kg/m2 [facility] Systolic blood pressure 2021-09-30 18:36:00 125 mm[Hg] [facility] Diastolic blood pressure 2021-09-30 18:36:00 81 mm[Hg] [facility] Heart rate 2021-09-30 18:36:00 120 /min [facility] Body temperature 2021-09-30 18:36:[address] [facility] Body height 2021-09-30 18:36:00 170.2 cm [facility] Body weight 2021-09-30 18:36:00 99.066 kg [facility] BMI 2021-09-30 18:36:00 34.21 kg/m2 [facility] Oxygen saturation in Arterial blood by Pulse oximetry 2021-09-30 18:36:00 93 /min [facility] Procedures Procedure Date / Time Performed Performing Clinician Source [id number] 2023-11-10 00:00:00 [facility] REAGENT STRIP/BLOOD GLUCOSE 2023-04-17 00:00:00 Outside, Reported Maisha Moy - External TELERETINAL DIABETIC SCREENING 2023-04-02 15:16:00 John Beckford Maisha Moy - External POCT GLUCOSE (AUTOMATED) 2022-11-12 17:08:[address] [facility] POCT GLUCOSE (AUTOMATED) 2022-11-12 13:30:[address] [facility] FERRITIN SERUM 2022-11-12 09:53:[address] [facility] [place] [place] HEPATIC FUNCTION PANEL ([id number]) (ALB,T.PRO,BILI T,BU/BC,ALT,AST,ALK PHOS) 2022-11-12 09:53[facility] (NA, K, CL, CO2, GLUCOSE, BUN, CREATININE, CA) 2022-11-12 09:53:00 Kate [facility] POCT GLUCOSE (AUTOMATED) 2022-11-12 02:07:[address] [facility] POCT GLUCOSE (AUTOMATED) 2022-11-11 21:59:[address] [facility] POCT GLUCOSE (AUTOMATED) 2022-11-11 17:08:[address] [facility] POCT GLUCOSE (AUTOMATED) 2022-11-11 13:19:[address] [facility] MAGNESIUM 2022-11-11 10:21:00 Cholo Love [facility] HEPATIC FUNCTION PANEL ([id number]) (ALB,T.PRO,BILI T,BU/BC,ALT,AST,ALK PHOS) 2022-11-11 10:21:[facility] (NA, K, CL, CO2, GLUCOSE, BUN, CREATININE, CA) 2022-11-11 10:[facility] 2022-[facility]-11 10:21:00 Natasha [facility] POCT GLUCOSE (AUTOMATED) 2022-11-11 02:37:[address] [facility] POCT GLUCOSE (AUTOMATED) 2022-11-10 22:18:[address] [facility] US ABDOMEN LIMITED 2022-11-10 21:00:00 Kate [facility] HEPATITIS B SURFACE ANTIBODY 2022-11-10 19:01:00 Kate [facility] HEPATITIS B SURFACE ANTIGEN 2022-11-10 19:01:00 Kate [facility] HCV ANTIBODY 2022-11-10 19:01:00 Kate [facility] HEPATITIS A VIRUS ANTIBODY IGM 2022-11-10 19:01:00 Kate [facility] POCT GLUCOSE (AUTOMATED) 2022-11-10 17:06:00 Natasha [facility] MAGNESIUM 2022-11-10 15:00:00 Kate [facility] COMP. METABOLIC PANEL ([id number]) 2022-11-10 15:00:00 Kate [facility] POCT GLUCOSE (AUTOMATED) 2022-11-10 13:14:00 [facility] 2022-11-10 03:56:00 [facility] URINE CULTURE 2022-11-10 03:56:00 Murali Zafar [facility] AC PANEL 20 + LACTIC ACID 2022-11-10 03:47:[address] [facility] LIPASE 2022-11-10 03:46:00 [facility] TROPONIN I 2022-11-10 03:46:00 [facility] COMP. METABOLIC PANEL ([id number]) 2022-11-10 03:46:[address] [facility] CBC WITH DIFF 2022-11-10 03:46:00 Murali Zafar [facility] N-TERMINAL PRO-BNP 2022-11-10 03:46:00 Andrade [facility] HB ECG ROUTINE & RHYTHM STRIP 2022-11-10 03:16:[address] [facility] POCT GLUCOSE (AUTOMATED) 2022-11-10 03:09:[address] [facility] POCT GLUCOSE (AUTOMATED) 2022-11-10 02:59:[address] [facility] CONSENT/REFUSAL FOR DIAGNOSIS AND TREATMENT 2022-11-10 02:39:20 Doctor Unassigned, Doerun [facility] POCT GLUCOSE (AUTOMATED) 2022-11-07 22:01:[address] [facility] POCT GLUCOSE (AUTOMATED) 2022-11-07 17:28:[address] [facility] POCT GLUCOSE (AUTOMATED) 2022-11-07 14:16:[address] [facility] PHOSPHORUS 2022-11-07 11:33:00 Dar Leal [facility] BETA HYDROXY-BUTYRATE 2022-11-07 11:33:[address] [facility] BASIC METABOLIC PANEL (NA, K, CL, CO2, GLUCOSE, BUN, CREATININE, CA) 2022-11-07 11:33:[address] [facility] POCT GLUCOSE (AUTOMATED) 2022-11-07 03:32:[address] [facility] POCT GLUCOSE (AUTOMATED) 2022-11-06 22:56:[address] [facility] BETA HYDROXY-BUTYRATE 2022-11-06 20:25:[address] [facility] BASIC METABOLIC PANEL (NA, K, CL, CO2, GLUCOSE, BUN, CREATININE, CA) 2022-11-06 20:25:[address] [facility] POCT GLUCOSE (AUTOMATED) 2022-11-06 16:15:[address] [facility] BASIC METABOLIC PANEL (NA, K, CL, CO2, GLUCOSE, BUN, CREATININE, CA) 2022-11-06 11:53:00 Melissa [facility] MRSA / MSSA SCREEN BY VIMAL ROBERT 2022-11-06 11:53:[address] [facility] POCT GLUCOSE (AUTOMATED) 2022-11-06 11:26:[address] [facility] POCT GLUCOSE (AUTOMATED) 2022-11-06 09:26:[address] [facility] POCT GLUCOSE(AGE >30DAYS) 2022-11-06 08:15:[address] [facility] PHOSPHORUS 2022-11-06 07:25:00 [facility] MAGNESIUM 2022-11-06 07:25:00 [facility] OSMOLALITY, SERUM OR PLASMA 2022-11-06 07:25:[address] [facility] BETA HYDROXY-BUTYRATE 2022-11-06 07:25:[address] [facility] BASIC METABOLIC PANEL (NA, K, CL, CO2, GLUCOSE, BUN, CREATININE, CA) 2022-11-06 07:25:[address] [facility] LIPID PANEL ([id number])(TOTAL CHOLESTEROL, TRIGLYCERIDES, HDL) 2022-11-06 07:25:[address] [facility] GLYCOSYLATED HEMOGLOBIN (A1C) 2022-11-06 07:25:[address] [facility] POCT GLUCOSE(AGE >30DAYS) 2022-11-06 06:58:[address] [facility] POCT GLUCOSE (AUTOMATED) 2022-11-06 06:55:00 [facility]-06 06:50:18 Murali Zafar [facility] AC PANEL 20 + LACTIC ACID 2022-11-06 06:14:[address] [facility] CT ABDOMEN PELVIS W CONTRAST 2022-11-06 06:05:[address] [facility] CT CHEST PULMONARY ANGIOGRAM 2022-11-06 06:05:[address] [facility] BLOOD CULTURE SCREEN 2022-11-06 04:51:[address] [facility] LACTIC ACID WHOLE BLOOD 2022-11-06 04:50:[address] [facility] XR CHEST 1 VW 2022-11-06 04:21:53 Murali Zafar [facility] LIPASE 2022-11-06 04:08:00 [facility] TROPONIN I 2022-11-06 04:08:00 [facility] COMP. METABOLIC PANEL ([id number]) 2022-11-06 04:08:[address] [facility] CBC WITH DIFF 2022-11-06 04:08:00 Murali Zafar [facility] URINALYSIS 2022-11-06 04:08:00 [facility] URINE CULTURE 2022-11-06 04:08:00 Murali Zafar [facility] RAPID INFLUENZA A/B 2022-11-06 04:08:[address] [facility] N-TERMINAL PRO-BNP 2022-11-06 04:08:[address] [facility] COVID-19 (ID NOW RAPID TESTING) 2022-11-06 04:08:[address] [facility] LAB ONLY COVID INTERPRETATION 2022-11-06 04:08:[address] [facility] CONSENT/REFUSAL FOR DIAGNOSIS AND TREATMENT 2022-11-06 03:03:01 Doctor Unassigned, Doerun [facility] HOSPITAL ADMISSION 2022-11-05 06:01:00 Doctor Un assigned, Doerun [facility] POCT GLUCOSE (AUTOMATED) 2022-09-04 16:52:[address] [facility] US GALL BLADDER 2022-09-04 15:00:00 Jaxon Thomas [facility] POCT GLUCOSE (AUTOMATED) 2022-09-04 12:51:[address] [facility] TROPONIN I 2022-09-04 11:06:00 Jaxon Thomas [facility] COMP. METABOLIC PANEL ([id number]) 2022-09-04 11:06:[address] [facility] ACUTE CARE VENOUS BLOOD GAS 2022-09-04 11:06:[address] [facility] CBC WITH DIFF 2022-09-04 11:06:00 Jaxon Thomas [facility] N-TERMINAL PRO-BNP 2022-09-04 11:06:00 Lesley [facility] PHOSPHORUS 2022-09-04 05:55:00 Lesley kristin [facility] URIC ACID 2022-09-04 05:55:00 Lesley kristin [facility] MAGNESIUM 2022-09-04 05:55:00 Lesley [facility] TROPONIN I 2022-09-04 05:55:00 Lesley [facility] THYROID STIMULATING HORMONE 2022-09-04 05:55:00 Lesley [facility] LIPID PANEL ([id number])(TOTAL CHOLESTEROL, TRIGLYCERIDES, HDL) 2022-09-04 05:55:00 Lesley [facility] SEDIMENTATION RATE 2022-09-04 05:55:00 Lesley [facility] PROTHROMBIN TIME / INR 2022-09-04 05:55:00 Lesley [facility] HEPATITIS B SURFACE ANTIBODY 2022-09-04 05:55:00 Lesley [facility] HEPATITIS B SURFACE ANTIGEN 2022-09-04 05:55:00 Lesley [facility] HCV ANTIBODY 2022-09-04 05:55:00 Lesley [facility] HAV ANTIBODY (IGG AND IGM) 2022-09-04 05:55:00 Lesley [facility] PROCALCITONIN 2022-09-04 05:55:00 [facility] POCT GLUCOSE (AUTOMATED) 2022-09-04 05:31:00 [facility] XR CHEST 1 VW 2022-09-03 22:42:00 Murali Zafar [facility] LIPASE 2022-09-03 22:26:00 [facility] TROPONIN I 2022-09-03 22:26:00 [facility] COMP. METABOLIC PANEL ([id number]) 2022-09-03 22:26:[address] [facility] CBC WITH DIFF 2022-09-03 22:26:00 Murali Zafar [facility] GLYCOSYLATED HEMOGLOBIN (A1C) 2022-09-03 22:26:[address] [facility] ACTIVATED PARTIAL THRMPLAS KAR 2022-09-03 22:26:[address] [facility] N-TERMINAL PRO-BNP 2022-09-03 22:26:[address] [facility] NOTICE OF PRIVACY PRACTICES 2022-09-03 21:52:55 Doctor Unassigned, Doerun [facility] CONSENT/REFUSAL FOR DIAGNOSIS AND TREATMENT 2022-09-03 21:52:24 Doctor Unassigned, Doerun [facility] POCT GLUCOSE (AUTOMATED) 2022-04-23 18:58:[address] [facility] POCT GLUCOSE (AUTOMATED) 2022-04-23 15:35:[address] [facility] POCT GLUCOSE (AUTOMATED) 2022-04-23 12:41:[address] [facility] POCT GLUCOSE (AUTOMATED) 2022-04-23 11:33:[address] [facility] MAGNESIUM 2022-04-23 09:33:00 Sachin Mcallister [facility] BASIC METABOLIC PANEL (NA, K, CL, CO2, GLUCOSE, BUN, CREATININE, CA) 2022-04-23 09:33:[address] [facility] POCT GLUCOSE (AUTOMATED) 2022-04-23 09:33:[address] [facility] POCT GLUCOSE (AUTOMATED) 2022-04-23 07:17:[address] [facility] POCT GLUCOSE (AUTOMATED) 2022-04-23 05:25:[address] [facility] POCT GLUCOSE (AUTOMATED) 2022-04-23 04:07:[address] [facility] POCT GLUCOSE (AUTOMATED) 2022-04-23 03:09:[address] [facility] POCT GLUCOSE (AUTOMATED) 2022-04-23 02:22:[address] [facility] BASIC METABOLIC PANEL (NA, K, CL, CO2, GLUCOSE, BUN, CREATININE, CA) 2022-04-23 01:15:[address] [facility] POCT GLUCOSE (AUTOMATED) 2022-04-23 01:15:[address] [facility] POCT GLUCOSE (AUTOMATED) 2022-04-23 00:02:[address] [facility] POCT GLUCOSE (AUTOMATED) 2022-04-22 23:01:00 [facility] 2022-04-22 22:05:00 [facility] BASIC METABOLIC PANEL (NA, K, CL, CO2, GLUCOSE, BUN, CREATININE, CA) 2022-04-22 21:05:[address] [facility] POCT GLUCOSE (AUTOMATED) 2022-04-22 21:02:[address] [facility] POCT GLUCOSE (AUTOMATED) 2022-04-22 19:45:00 Kvng Mcallister [facility] POCT GLUCOSE (AUTOMATED) 2022-04-22 18:42:00 Kvng Mcallister [facility] POCT GLUCOSE (AUTOMATED) 2022-04-22 17:22:[address] [facility] POCT GLUCOSE (AUTOMATED) 2022-04-22 16:05:[address] [facility] TROPONIN I 2022-04-22 15:33:00 [facility] (NA, K, CL, CO2, GLUCOSE, BUN, CREATININE, CA) 2022-04-22 15:33:[address] [facility] CBC WITH DIFF 2022-04-22 15:33:00 Cholo Love [facility] POCT GLUCOSE (AUTOMATED) 2022-04-22 14:25:[address] [facility] POCT GLUCOSE (AUTOMATED) 2022-04-22 13:39:[address] [facility] POCT GLUCOSE (AUTOMATED) 2022-04-22 12:26:[address] [facility] POCT GLUCOSE (AUTOMATED) 2022-04-22 11:30:[address] [facility] BASIC METABOLIC PANEL (NA, K, CL, CO2, GLUCOSE, BUN, CREATININE, CA) 2022-04-22 10:51:[address] [facility] POCT GLUCOSE (AUTOMATED) 2022-04-22 10:47:[address] [facility] POCT GLUCOSE (AUTOMATED) 2022-04-22 10:44:[address] [facility] POCT GLUCOSE (AUTOMATED) 2022-04-22 09:32:[address] [facility] POCT GLUCOSE (AUTOMATED) 2022-04-22 08:34:[address] [facility] BASIC METABOLIC PANEL (NA, K, CL, CO2, GLUCOSE, BUN, CREATININE, CA) 2022-04-22 07:39:[address] [facility] POCT GLUCOSE (AUTOMATED) 2022-04-22 07:33:[address] [facility] POCT GLUCOSE (AUTOMATED) 2022-04-22 06:29:[address] [facility] BASIC METABOLIC PANEL (NA, K, CL, CO2, GLUCOSE, BUN, CREATININE, CA) 2022-04-22 05:30:[address] [facility] POCT GLUCOSE (AUTOMATED) 2022-04-22 05:29:[address] [facility] POCT GLUCOSE (AUTOMATED) 2022-04-22 04:32:[address] [facility] POCT GLUCOSE (AUTOMATED) 2022-04-22 03:40:[address] [facility] MRSA / MSSA SCREEN BY VIMAL ROBERT 2022-04-22 03:30:[address] [facility] LACTIC ACID WHOLE BLOOD 2022-04-22 03:09:[address] [facility] POCT GLUCOSE (AUTOMATED) 2022-04-22 02:14:[address] [facility] COVID-19 (ID NOW RAPID TESTING) 2022-04-22 01:25:00 Skyler [facility] LAB ONLY COVID INTERPRETATION 2022-04-22 01:25:00 Skyler [facility] URINALYSIS 2022-04-22 01:23:00 [facility] BASIC METABOLIC PANEL (NA, K, CL, CO2, GLUCOSE, BUN, CREATININE, CA) 2022-04-22 01:14:00 Skyler [facility] OSMOLALITY, SERUM OR PLASMA 2022-04-22 01:11:00 Skyler [facility] BETA HYDROXY-BUTYRATE 2022-04-22 01:11:00 Eli Holland [facility] POCT GLUCOSE (AUTOMATED) 2022-04-22 01:08:[address] [facility] CT ABDOMEN PELVIS W CONTRAST 2022-04-22 00:25:33 Skyler [facility] XR CHEST 1 VW 2022-04-22 00:18:00 Annette Holland [facility] AC PANEL 21 + LACTIC ACID 2022-04-22 00:04:00 Skyler [facility] URINALYSIS 2022-04-21 23:11:00 [facility] PHOSPHORUS 2022-04-21 23:05[facility]00 [facility] 2022-04-21 23:05:00 [facility] 2022-04-21 23:05:00 [facility] TROPONIN I 2022-04-21 23:05:00 [facility] COMP. METABOLIC PANEL ([id number]) 2022-04-21 23:05:00 Skyler [facility] CBC WITH DIFF 2022-04-21 23:05:00 Annette Holland [facility] GLYCOSYLATED HEMOGLOBIN (A1C) 2022-04-21 23:05:[address] [facility] PROTHROMBIN TIME / INR 2022-04-21 23:05:[address] [facility] N-TERMINAL PRO-BNP 2022-04-21 23:05:[address] [facility] HB ECG ROUTINE & RHYTHM STRIP 2022-04-21 22:57:[address] [facility] CONSENT/REFUSAL FOR DIAGNOSIS AND TREATMENT 2022-04-21 22:36:06 Doctor Unassigned, Doerun [facility] NOTICE OF PRIVACY PRACTICES 2022-04-21 22:34:32 Doctor Unassigned, Doerun [facility] Encounters Start Date/Time End Date/Time Encounter Type Admission Type Attending [facility] Care Department Encounter ID Source 2024-01-20 13:37:45 2024-01-20 13:37:45 Outpatient [facility] [id number] Ron Alejandre 2023-11-18 09:30:00 2023-11-18 09:30:00 Outpatient WENDY MORENO [id number] Maisha [facility] 2023-11-10 10:33:00 2023-11-17 19:30:00 Inpatient Jeremias Hall [facility] INTE.02 [id number] [facility] 2023-11-11 09:56:00 2023-11-11 09:56:00 Outpatient Jeremias Ibarra [facility] LABO [id number] [facility] 2023-11-11 00:00:00 2023-11-11 00:00:00 Outpatient [facility]ISHA EVANS [id number] [facility]-10 15:15:00 2023-11-10 15:15:00 Outpatient WENDY MORENO [id number] [facility] 2023-11-06 00:00:00 2023-11-06 00:00:00 Outpatient MAISHA EVANS [id number] Maisha Moy 2023-10-27 00:00:00 2023-10-27 00:00:00 Outpatient MAISHA EVANS [id number] Maisha [facility] 2023-09-24 00:00:00 2023-09-24 00:00:00 Outpatient JOHN BECKFORD MAISHA EVANS [id number] Maisha [facility] 2023-08-07 15:15:00 2023-08-07 15:15:00 Outpatient WENDY MORENO MAISHA EVANS [id number] Maisha [facility] 2023-07-31 16:45:00 2023-07-31 16:45:00 Outpatient JOSH WENDY EVANS [id number] Maisha [facility] 2023-06-26 14:40:00 2023-06-26 14:40:00 Outpatient PRADEEP, LYUBOV EVANS [id number] Maisha [facility] 2023-05-14 00:00:00 2023-05-14 00:00:00 Outpatient MD MAISHA MEADE [id number] Maisha [facility] 2023-04-23 16:00:00 2023-04-23 16:00:00 Outpatient ROHINI CHAMBERS MAISHA EVANS [id number] Maisha [facility] 2023-04-23 13:30:00 2023-04-23 13:30:00 Outpatient JOHN BECKFORD MAISHA EVANS [id number] Maisha [facility] 2023-04-21 08:00:00 2023-04-21 08:00:00 Outpatient MARCELLE ZHU [id number] Maisha [facility] 2023-04-17 09:15:00 2023-04-17 09:15:00 Outpatient WENDY MORENO MAISHA EVANS [id number] Maisha Seybold 2023-04-16 00:00:00 2023-04-16 00:00:00 Outpatient MD MAISHA MEADE [id number] Maisha [facility] 2023-04-14 00:00:00 2023-04-14 00:00:00 Outpatient MARCELLE ZHU [id number] Maisha Seybcarole 2023-04-10 00:00:00 2023-04-10 00:00:00 Outpatient MARCELLE ZHU [id number] Maisha [facility] 2023-04-09 00:00:00 2023-04-09 00:00:00 Outpatient AUDRA MARCELLE MAISHA EVANS [id number] Maisha Moy 2023-04-08 08:00:00 2023-04-08 08:00:00 Outpatient AUDRA MARCELLE EVANS [id number] Maisha Goddardcarole 2023-04-08 00:00:00 2023-04-08 00:00:00 Outpatient MAISHA RIVERS [id number] Maisha [facility] 2023-04-08 00:00:00 2023-04-08 00:00:00 Outpatient JOSH WENDY MAISHA EVANS [id number] Maisha [facility] 2023-04-08 00:00:00 2023-04-08 00:00:00 Outpatient STEVENSONRADHA [id number] Maisha [facility] 2023-04-07 00:00:00 2023-04-07 00:00:00 Outpatient JOHN BECKFORD [id number] Maisha [facility] 2023-04-02 10:20:00 2023-04-02 10:20:00 Outpatient YINKA EVANS [id number] Maisha [facility] 2023-04-02 09:00:00 2023-04-02 09:00:00 Outpatient JOHN BECKFORD [id number] Maisha [facility] 2023-04-02 00:00:00 2023-04-02 00:00:00 Outpatient AKBAR JEREZ [id number] Maisha [facility] 2022-11-13 00:00:00 2022-11-13 00:00:00 Transition of Care Florence Botello 1.2.840.114 350.1.13.10 4.2.7.2.686 [id number] [facility] 2022-11-09 21:02:00 2022-11-12 15:36:00 Inpatient CHOLO DE LEÓN [facility] [id number] [facility] 2022-11-09 21:02:00 2022-11-12 15:36:00 Hospital Encounter Murali Zafar [facility], Jelani [facility] 1.2.840.114 350.1.13.10 4.2.7.2.686 [id number] [facility] 2022-11-12 00:00:00 2022-11-12 00:00:00 Telephone Nata Vu [facility] 1.2.840.114 350.1.13.10 4.2.7.2.686 [id number] [facility] 2022-11-10 00:00:00 2022-11-10 00:00:00 Transition of Care Rosmery Florence M SUJATHAShefali DANIEL MORRIS 1.2.840.114 350.1.13.10 4.2.7.2.686 [id number] [facility] 2022-11-05 21:27:00 2022-11-07 17:37:00 Inpatient Mj BATRESMARYAMJON SAINI [facility] JOSE ENRIQUE [id number] [facility] 2022-11-05 21:27:00 2022-11-07 17:37:00 Hospital Encounter Murali Zafar Joseph [facility], [facility] 1.2.840.114 350.1.13.10 4.2.7.2.686 [id number] [facility] 2022-10-31 13:11:41 2022-10-31 13:11:[address] [facility] [id number] Ron Alejandre 2022-09-24 08:23:00 2022-09-24 08:23:00 Outpatient Lukasz Bejarano [facility] [id number] [facility] 2022-09-08 00:00:00 2022-09-08 00:00:00 Outpatient JAXON MONIQUE [facility] [id number] [facility] 2022-09-03 17:08:00 2022-09-04 13:45:00 Outpatient JAI PARKER [facility] JOSE ENRIQUE [id number] [facility] 2022-09-03 17:08:00 2022-09-04 13:45:00 Emergency Murali Zafar David OmiviviJai [facility] 1.2.840.114 350.1.13.10 4.2.7.2.686 [id number] [facility] 2022-08-20 19:28:00 2022-08-20 19:28:00 Outpatient Sang Franklin [facility] [id number] [address] [place] [address] 2022-04-24 00:00:00 2022-04-24 00:00:00 Transition of Care Florence Botello DANIEL MORRIS 1.2.840.114 350.1.13.10 4.2.7.2.686 [id number] [facility] 2022-04-21 17:49:00 2022-04-23 15:15:00 Inpatient Mj MCALLISTERSACHIN [facility] JOSE ENRIQUE [id number] [facility] 2022-04-21 17:49:00 2022-04-23 15:15:00 Hospital Encounter Annette Holland, Sachin Brush [facility] 1.2.840.114 350.1.13.10 4.2.7.2.686 [id number] [facility] 2021-12-24 00:00:00 2021-12-24 00:00:00 Outpatient [facility] PIJFIFFDTZ -[id number] [facility] 2021-09-30 14:00:00 2021-09-30 14:00:00 Outpatient GERSON PISANO [facility] [id number] [facility] 2021-09-30 13:25:55 2021-09-30 13:55:55 Office Visit Dustin Cervantes Joseph Marc [facility] 1.2.840.114 350.1.13.10 4.2.7.2.686 [id number] [facility] 2021-09-30 00:00:00 2021-09-30 00:00:00 Orders Only Doctor Unassigned, Doerun [facility] 1.2.840.114 350.1.13.10 4.2.7.2.686 [id number] [facility] 2021-08-09 00:00:00 2021-08-09 00:00:00 Orders Only Doctor Unassigned, Doerun [facility] 1.2.840.114 350.1.13.10 4.2.7.2.686 [id number] [facility] 2021-07-02 15:02:00 2021-07-02 21:52:00 Emergency Marlene Taylor [facility] 1.2.840.114 350.1.13.10 4.2.7.2.686 [id number] [facility] 2021-07-02 14:36:00 2021-07-02 14:36:00 Emergency X [facility] ERT [id number] [facility] Results Test Description Test Time Test Comments Results Result Co mments Source [id number] 11:26:00* Test Item Value Reference Range Interpretation Comme nts GLUBED (test code = GLUBED) 259 mg/dL 74-106 H Performed by cer tified power mule operator at [facility] [id number] 06:28:00* Test Item Value Reference Range Interpretation Comme nts GLUBED (test code = GLUBED) 191 mg/dL 74-106 H Performed by cer tified power mule operator at [facility] [id number] 05:29:00* Test Item Value Reference Range Interpretation Comme nts GLUBED (test code = GLUBED) 212 mg/dL 74-106 H Performed by cer tified power mule operator at [facility] [id number] 00:12:00* Test Item Value Reference Range Interpretation Comme nts GLUBED (test code = GLUBED) 237 mg/dL 74-106 H Performed by cer tified power mule operator at [facility] [id number] 18:02:00* Test Item Value Reference Range Interpretation Comme nts GLUBED (test code = GLUBED) 261 mg/dL 74-106 H Performed by cer tified power mule operator at [facility] [id number] 12:13:00* Test Item Value Reference Range Interpretation Comme nts GLUBED (test code = GLUBED) 212 mg/dL 74-106 H Performed by cer tified power mule operator at [facility] [id number] 06:14:00* Test Item Value Reference Range Interpretation Comme nts GLUBED (test code = GLUBED) 259 mg/dL 74-106 H Performed by cer tified power mule operator at [facility] BASIC METABOLIC [id number] 05:34:00* Test Item Value Reference Range Interpretation Comme nts SODIUM (test code = NA) 136 mmol/L 136-145 N POTASSIUM (test code = K) 3.0 mmol/L 3.5-5.1 L CHLORIDE (test code = CL) 99.0 mmol/L 98-107 N CARBON DIOXIDE (test code = CO2) 29.0 mmol/L 21-32 N ANION GAP (test code = GAP) 11.0 10-20 N GLUCOSE (test code = GLU) 287 mg/dL 74-106 H BLOOD UREA NITROGEN (test code = BUN) 8 mg/dL 7-18 N GLOMERULAR FILTRATION RATE (test code = GFR) > 60 mL/min >=60 The Glomerular Filtration Rate is a calculated parameterbased on serum Creatinine, patient age and sex. GFR valuesless than 60 mL/min/1.73 square meters are indicative ofChronic Kidney Disease. Values less than 15 mL/min/1.73square meters indicate Kidney failure. The calculation forGFR is based on the CKD-EPI (202) calculation. This formulais race indifferent and is the recommended formula for GFRby the National Kidney Foundation for Adults.The GFR will not calculate if the sex is unknown or if thepatient's age is <18 years. CREATININE (test code = CREAT) 1.00 mg/dL 0.7-1.3 N BUN/CREATININE RATIO (test code = BUN/CREA) 8.4 10-20 L CALCIUM (test code = CA) 8.6 mg/dL 8.5-10.1 N [id number] 00:21:00* Test Item Value Reference Range Interpretation Comme nts GLUBED (test code = GLUBED) 357 mg/dL 74-106 H Performed by cer tified power mule operator at [facility] COMPREHENSIVE METABOLIC [id number] 22:24:00* Test Item Value Reference Range Interpretation Comme nts SODIUM (test code = NA) 136 mmol/L 136-145 N POTASSIUM (test code = K) 3.2 mmol/L 3.5-5.1 L CHLORIDE (test code = CL) 97.0 mmol/L 98-107 L CARBON DIOXIDE (test code = CO2) 30.0 mmol/L 21-32 N ANION GAP (test code = GAP) 12.2 10-20 N GLUCOSE (test code = GLU) 312 mg/dL 74-106 H BLOOD UREA NITROGEN (test code = BUN) 10 mg/dL 7-18 N GLOMERULAR FILTRATION RATE (test code = GFR) > 60 mL/min >=60 The Glomerular Filtration Rate is a calculated parameterbased on serum Creatinine, patient age and sex. GFR valuesless than 60 mL/min/1.73 square meters are indicative ofChronic Kidney Disease. Values less than 15 mL/min/1.73square meters indicate Kidney failure. The calculation forGFR is based on the CKD-EPI (202) calculation. This formulais race indifferent and is the recommended formula for GFRby the National Kidney Foundation for Adults.The GFR will not calculate if the sex is unknown or if thepatient's age is <18 years. CREATININE (test code = CREAT) 1.00 mg/dL 0.7-1.3 N BUN/CREATININE RATIO (test code = BUN/CREA) 9.8 10-20 L TOTAL PROTEIN (test code = PROT) 5.8 gram/dL 6.4-8.2 L ALBUMIN (test code = ALB) 3.1 g/dL 3.4-5.0 L GLOBULIN (test code = GLOB) 2.7 gram/dL 2.7-4.2 N ALBUMIN/GLOBULIN RATIO (test code = A/G) 1.1 0.75-1.50 N CALCIUM (test code = CA) 8.1 mg/dL 8.5-10.1 L BILIRUBIN TOTAL (test code = BILT) 0.50 mg/dL 0.0-1.0 N SGOT/AST (test code = AST) 38 IUnit/L 15-37 H SGPT/ALT (test code = ALT) 125 IUnit/L 12-78 H ALKALINE PHOSPHATASE TOTAL (test code = ALKP) 81 IUnit/L 45-117 N Note change in reference range due to change in reagent. [id number] 22:24:00* Test Item Value Reference Range Interpretation Comme nts PHOSPHORUS (test code = PHOS) 1.8 mg/dL 2.5-4.9 L [id number] 22:24:00* Test Item Value Reference Range Interpretation Comme nts MAGNESIUM (test code = MAG) 1.9 mg/dL 1.8-2.4 N [id number] 17:01:00* Test Item Value Reference Range Interpretation Comme nts GLUBED (test code = GLUBED) 299 mg/dL 74-106 H Performed by cer tified power mule operator at [facility] [id number] 12:14:00* Test Item Value Reference Range Interpretation Comme nts GLUBED (test code = GLUBED) 335 mg/dL 74-106 H Performed by cer tified power mule operator at [facility] [id number] 07:59:00* Test Item Value Reference Range Interpretation Comme nts GLUBED (test code = GLUBED) 329 mg/dL 74-106 H Performed by cer tified power mule operator at [facility] COMPREHENSIVE METABOLIC [id number] 06:56:00* Test Item Value Reference Range Interpretation Comme nts SODIUM (test code = NA) 133 mmol/L 136-145 L RESULT VERIFIED BY REPEAT ANALYSIS POTASSIUM (test code = K) 4.5 mmol/L 3.5-5.1 N CHLORIDE (test code = CL) 96.0 mmol/L 98-107 L CARBON DIOXIDE (test code = CO2) 26.0 mmol/L 21-32 N ANION GAP (test code = GAP) 15.5 10-20 N GLUCOSE (test code = GLU) 331 mg/dL 74-106 H BLOOD UREA NITROGEN (test code = BUN) 11 mg/dL 7-18 N GLOMERULAR FILTRATION RATE (test code = GFR) > 60 mL/min >=60 The Glomerular Filtration Rate is a calculated parameterbased on serum Creatinine, patient age and sex. GFR valuesless than 60 mL/min/1.73 square meters are indicative ofChronic Kidney Disease. Values less than 15 mL/min/1.73square meters indicate Kidney failure. The calculation forGFR is based on the CKD-EPI (202) calculation. This formulais race indifferent and is the recommended formula for GFRby the National Kidney Foundation for Adults.The GFR will not calculate if the sex is unknown or if thepatient's age is <18 years. CREATININE (test code = CREAT) 1.10 mg/dL 0.7-1.3 N BUN/CREATININE RATIO (test code = BUN/CREA) 9.6 10-20 L TOTAL PROTEIN (test code = PROT) 5.8 gram/dL 6.4-8.2 L ALBUMIN (test code = ALB) 3.1 g/dL 3.4-5.0 L GLOBULIN (test code = GLOB) 2.7 gram/dL 2.7-4.2 N ALBUMIN/GLOBULIN RATIO (test code = A/G) 1.1 0.75-1.50 N CALCIUM (test code = CA) 8.1 mg/dL 8.5-10.1 L BILIRUBIN TOTAL (test code = BILT) 0.60 mg/dL 0.0-1.0 N SGOT/AST (test code = AST) 47 IUnit/L 15-37 H SGPT/ALT (test code = ALT) 157 IUnit/L 12-78 H ALKALINE PHOSPHATASE TOTAL (test code = ALKP) 79 IUnit/L 45-117 N Note change in reference range due to change in reagent. [id number] 06:56:00* Test Item Value Reference Range Interpretation Comme nts PHOSPHORUS (test code = PHOS) 2.4 mg/dL 2.5-4.9 L [id number] 06:56:00* Test Item Value Reference Range Interpretation Comme nts MAGNESIUM (test code = MAG) 1.3 mg/dL 1.8-2.4 L CBC W/AUTO [id number] 06:24:00* Test Item Value Reference Range Interpretation Comme nts WHITE BLOOD CELL (test code = WBC) 8.1 K/mm3 4.5-12.5 N RED BLOOD CELL (test code = RBC) 3.73 mill/mm3 4.0-5.8 L HEMOGLOBIN (test code = HGB) 10.8 gram/dL 13.0-17.5 L HEMATOCRIT (test code = HCT) 31.4 % 42.0-52.0 L MEAN CELL VOLUME (test code = MCV) 84.2 fL 80-98 N MEAN CELL HGB (test code = MCH) 29.0 picogram 27.0-33.0 N MEAN CELL HGB CONCETRATION (test code = MCHC) 34.4 gram/dL 33.0-36.0 N RED CELL DISTRIBUTION WIDTH (test code = RDW) 12.5 % 11.6-16.2 N RED CELL DISTRIBUTION WIDTH SD (test code = RDW-SD) 37.8 fL 37.0-51.0 N PLATELET COUNT (test code = PLT) 331 K/mm3 150-450 N MEAN PLATELET VOLUME (test c ode = MPV) 10.3 fL 6.7-11.0 N NEUTROPHIL % (test code = NT%) 85.2 % 39.0-69.0 H IMMATURE GRANULOCYTE % (test code = IG%) 0.5 % 0.0-5.0 N LYMPHOCYTE % (test code = LY%) 10.3 % 25.0-55.0 L MONOCYTE % (test code = MO%) 3.9 % 0.0-10.0 N EOSINOPHIL % (test code = EO%) 0.0 % 0.0-5.0 N BASOPHIL % (test code = BA%) 0.1 % 0.0-1.0 N NUCLEATED RBC % (test code = NRBC%) 0.0 % 0-0 N NEUTROPHIL # (test code = NT#) 6.92 K/mm3 1.8-7.7 N IMMATURE GRANULOCYTE # (test code = IG#) 0.04 x10 3/uL 0-0.03 H LYMPHOCYTE # (test code = LY#) 0.84 K/mm3 1.0-5.0 L MONOCYTE # (test code = MO#) 0.32 K/mm3 0-0.8 N EOSINOPHIL # (test code = EO#) 0.00 K/mm3 0.0-0.5 N BASOPHIL # (test code = BA#) 0.01 K/mm3 0.0-0.2 N NUCLEATED RBC # (test code = NRBC#) 0.00 K/mm3 0.0-0.1 N [id number] 05:49:00* Test Item Value Reference Range Interpretation Comme nts GLUBED (test code = GLUBED) 317 mg/dL 74-106 H Performed by cer tified power mule operator at [facility] [id number] 23:52:00* Test Item Value Reference Range Interpretation Comme nts GLUBED (test code = GLUBED) 364 mg/dL 74-106 H Performed by cer tified power mule operator at [facility] COMPREHENSIVE METABOLIC [id number] 15:47:00* Test Item Value Reference Range Interpretation Comme nts SODIUM (test code = NA) 127 mmol/L 136-145 L RESULT VERIFIED BY REPEAT ANALYSIS POTASSIUM (test code = K) 4.1 mmol/L 3.5-5.1 N CHLORIDE (test code = CL) 91.0 mmol/L 98-107 L CARBON DIOXIDE (test code = CO2) 26.0 mmol/L 21-32 N ANION GAP (test code = GAP) 14.1 10-20 N GLUCOSE (test code = GLU) 427 mg/dL 74-106 H BLOOD UREA NITROGEN (test code = BUN) 8 mg/dL 7-18 N GLOMERULAR FILTRATION RATE (test code = GFR) > 60 mL/min >=60 The Glomerular Filtration Rate is a calculated parameterbased on serum Creatinine, patient age and sex. GFR valuesless than 60 mL/min/1.73 square meters are indicative ofChronic Kidney Disease. Values less than 15 mL/min/1.73square meters indicate Kidney failure. The calculation forGFR is based on the CKD-EPI (202) calculation. This formulais race indifferent and is the recommended formula for GFRby the National Kidney Foundation for Adults.The GFR will not calculate if the sex is unknown or if thepatient's age is <18 years. CREATININE (test code = CREAT) 1.40 mg/dL 0.7-1.3 H BUN/CREATININE RATIO (test code = BUN/CREA) 5.7 10-20 L TOTAL PROTEIN (test code = PROT) 6.0 gram/dL 6.4-8.2 L ALBUMIN (test code = ALB) 3.2 g/dL 3.4-5.0 L GLOBULIN (test code = GLOB) 2.8 gram/dL 2.7-4.2 N ALBUMIN/GLOBULIN RATIO (test code = A/G) 1.1 0.75-1.50 N CALCIUM (test code = CA) 8.3 mg/dL 8.5-10.1 L BILIRUBIN TOTAL (test code = BILT) 0.70 mg/dL 0.0-1.0 N SGOT/AST (test code = AST) 63 IUnit/L 15-37 H SGPT/ALT (test code = ALT) 177 IUnit/L 12-78 H ALKALINE PHOSPHATASE TOTAL (test code = ALKP) 76 IUnit/L 45-117 N Note change in reference range due to change in reagent. [id number] 15:47:00* Test Item Value Reference Range Interpretation Comme nts PHOSPHORUS (test code = PHOS) 1.9 mg/dL 2.5-4.9 L [id number] 15:47:00* Test Item Value Reference Range Interpretation Comme nts MAGNESIUM (test code = MAG) 1.1 mg/dL 1.8-2.4 L [id number] 12:07:00* Test Item Value Reference Range Interpretation Comme nts GLUBED (test code = GLUBED) 375 mg/dL 74-106 H Performed by cer tified power mule operator at [facility] COMPREHENSIVE METABOLIC [id number] 06:42:00* Test Item Value Reference Range Interpretation Comme nts SODIUM (test code = NA) 132 mmol/L 136-145 L POTASSIUM (test code = K) 4.2 mmol/L 3.5-5.1 N CHLORIDE (test code = CL) 94.0 mmol/L 98-107 L CARBON DIOXIDE (test code = CO2) 25.0 mmol/L 21-32 N ANION GAP (test code = GAP) 17.2 10-20 N GLUCOSE (test code = GLU) 318 mg/dL 74-106 H BLOOD UREA NITROGEN (test code = BUN) 6 mg/dL 7-18 L GLOMERULAR FILTRATION RATE (test code = GFR) > 60 mL/min >=60 The Glomerular Filtration Rate is a calculated parameterbased on serum Creatinine, patient age and sex. GFR valuesless than 60 mL/min/1.73 square meters are indicative ofChronic Kidney Disease. Values less than 15 mL/min/1.73square meters indicate Kidney failure. The calculation forGFR is based on the CKD-EPI (202) calculation. This formulais race indifferent and is the recommended formula for GFRby the National Kidney Foundation for Adults.The GFR will not calculate if the sex is unknown or if thepatient's age is <18 years. CREATININE (test code = CREAT) 1.40 mg/dL 0.7-1.3 H BUN/CREATININE RATIO (test code = BUN/CREA) 4.3 10-20 L TOTAL PROTEIN (test code = PROT) 6.4 gram/dL 6.4-8.2 N ALBUMIN (test code = ALB) 3.3 g/dL 3.4-5.0 L GLOBULIN (test code = GLOB) 3.1 gram/dL 2.7-4.2 N ALBUMIN/GLOBULIN RATIO (test code = A/G) 1.1 0.75-1.50 N CALCIUM (test code = CA) 9.3 mg/dL 8.5-10.1 N BILIRUBIN TOTAL (test code = BILT) 0.80 mg/dL 0.0-1.0 N SGOT/AST (test code = AST) 92 IUnit/L 15-37 H SGPT/ALT (test code = ALT) 218 IUnit/L 12-78 H ALKALINE PHOSPHATASE TOTAL (test code = ALKP) 77 IUnit/L 45-117 N Note change in reference range due to change in reagent. [id number] 06:42:00* Test Item Value Reference Range Interpretation Comme nts PHOSPHORUS (test code = PHOS) 2.1 mg/dL 2.5-4.9 L [id number] 06:42:00* Test Item Value Reference Range Interpretation Comme nts MAGNESIUM (test code = MAG) 1.4 mg/dL 1.8-2.4 L CBC W/AUTO [id number] 06:15:00* Test Item Value Reference Range Interpretation Comme nts WHITE BLOOD CELL (test code = WBC) 6.9 K/mm3 4.5-12.5 N RED BLOOD CELL (test code = RBC) 4.05 mill/mm3 4.0-5.8 N HEMOGLOBIN (test code = HGB) 11.7 gram/dL 13.0-17.5 L HEMATOCRIT (test code = HCT) 34.8 % 42.0-52.0 L MEAN CELL VOLUME (test code = MCV) 85.9 fL 80-98 N MEAN CELL HGB (test code = MCH) 28.9 picogram 27.0-33.0 N MEAN CELL HGB CONCETRATION (test code = MCHC) 33.6 gram/dL 33.0-36.0 N RED CELL DISTRIBUTION WIDTH (test code = RDW) 12.3 % 11.6-16.2 N RED CELL DISTRIBUTION WIDTH SD (test code = RDW-SD) 38.8 fL 37.0-51.0 N PLATELET COUNT (test code = PLT) 317 K/mm3 150-450 MEAN PLATELET VOLUME (test c ode = MPV) 9.5 fL 6.7-11.0 N NEUTROPHIL % (test code = NT%) 80.2 % 39.0-69.0 H IMMATURE GRANULOCYTE % (test code = IG%) 0.4 % 0.0-5.0 N LYMPHOCYTE % (test code = LY%) 15.3 % 25.0-55.0 L MONOCYTE % (test code = MO%) 3.8 % 0.0-10.0 N EOSINOPHIL % (test code = EO%) 0.0 % 0.0-5.0 N BASOPHIL % (test code = BA%) 0.3 % 0.0-1.0 N NUCLEATED RBC % (test code = NRBC%) 0.0 % 0-0 N NEUTROPHIL # (test code = NT#) 5.50 K/mm3 1.8-7.7 N IMMATURE GRANULOCYTE # (test code = IG#) 0.03 x10 3/uL 0-0.03 N LYMPHOCYTE # (test code = LY#) 1.05 K/mm3 1.0-5.0 N MONOCYTE # (test code = MO#) 0.26 K/mm3 0-0.8 N EOSINOPHIL # (test code = EO#) 0.00 K/mm3 0.0-0.5 N BASOPHIL # (test code = BA#) 0.02 K/mm3 0.0-0.2 N NUCLEATED RBC # (test code = NRBC#) 0.00 K/mm3 0.0-0.1 N [id number] 06:04:00* Test Item Value Reference Range Interpretation Comme nts GLUBED (test code = GLUBED) 335 mg/dL 74-106 H Performed by cer tified power mule operator at [facility] [id number] 23:24:00* Test Item Value Reference Range Interpretation Comme nts GLUBED (test code = GLUBED) 300 mg/dL 74-106 H Performed by cer tified power mule operator at [facility] [id number] 17:17:00* Test Item Value Reference Range Interpretation Comme nts GLUBED (test code = GLUBED) 248 mg/dL 74-106 H Performed by cer tified power mule operator at [facility] HEPATIC FUNCTION [id number] 11:13:00* Test Item Value Reference Range Interpretation Comme nts TOTAL PROTEIN (test code = PROT) 5.5 gram/dL 6.4-8.2 L ALBUMIN (test code = ALB) 2.9 g/dL 3.4-5.0 L GLOBULIN (test code = GLOB) 2.6 gram/dL 2.7-4.2 L ALBUMIN/GLOBULIN RATIO (test code = A/G) 1.1 0.75-1.50 N BILIRUBIN TOTAL (test code = BILT) 1.00 mg/dL 0.0-1.0 N BILIRUBIN DIRECT (test code = BILD) 0.50 mg/dL 0.0-0.20 H SGOT/AST (test code = AST) 206 IUnit/L 15-37 H SGPT/ALT (test code = ALT) 300 IUnit/L 12-78 H ALKALINE PHOSPHATASE TOTAL (test code = ALKP) 75 IUnit/L 45-117 N Note change in reference range due to change in reagent. [id number] 11:13:00* Test Item Value Reference Range Interpretation Comme nts PHOSPHORUS (test code = PHOS) 4.1 mg/dL 2.5-4.9 N [id number] 11:13:00* Test Item Value Reference Range Interpretation Comme nts MAGNESIUM (test code = MAG) 1.3 mg/dL 1.8-2.4 L [id number] 11:06:00* Test Item Value Reference Range Interpretation Comme nts GLUBED (test code = GLUBED) 262 mg/dL 74-106 H Performed by cer tified power mule operator at [facility] [id number] 07:45:00* Test Item Value Reference Range Interpretation Comme nts GLUBED (test code = GLUBED) 231 mg/dL 74-106 H Performed by cer tified power mule operator at [facility] BASIC METABOLIC [id number] 06:02:00* Test Item Value Reference Range Interpretation Comme nts SODIUM (test code = NA) 137 mmol/L 136-145 N POTASSIUM (test code = K) 3.3 mmol/L 3.5-5.1 L CHLORIDE (test code = CL) 98.0 mmol/L 98-107 N CARBON DIOXIDE (test code = CO2) 27.0 mmol/L 21-32 N ANION GAP (test code = GAP) 15.3 10-20 N GLUCOSE (test code = GLU) 156 mg/dL 74-106 H BLOOD UREA NITROGEN (test code = BUN) < 5 mg/dL 7-18 L GLOMERULAR FILTRATION RATE (test code = GFR) > 60 mL/min >=60 The Glomerular Filtration Rate is a calculated parameterbased on serum Creatinine, patient age and sex. GFR valuesless than 60 mL/min/1.73 square meters are indicative ofChronic Kidney Disease. Values less than 15 mL/min/1.73square meters indicate Kidney failure. The calculation forGFR is based on the CKD-EPI (202) calculation. This formulais race indifferent and is the recommended formula for GFRby the National Kidney Foundation for Adults.The GFR will not calculate if the sex is unknown or if thepatient's age is <18 years. CREATININE (test code = CREAT) 0.90 mg/dL 0.7-1.3 N BUN/CREATININE RATIO (test code = BUN/CREA) 5.5 10-20 L CALCIUM (test code = CA) 9.1 mg/dL 8.5-10.1 N CBC W/AUTO [id number] 05:50:00* Test Item Value Reference Range Interpretation Comme nts WHITE BLOOD CELL (test code = WBC) 5.5 K/mm3 4.5-12.5 N RED BLOOD CELL (test code = RBC) 4.00 mill/mm3 4.0-5.8 N HEMOGLOBIN (test code = HGB) 11.5 gram/dL 13.0-17.5 L HEMATOCRIT (test code = HCT) 34.5 % 42.0-52.0 L MEAN CELL VOLUME (test code = MCV) 86.3 fL 80-98 N MEAN CELL HGB (test code = MCH) 28.8 picogram 27.0-33.0 N MEAN CELL HGB CONCETRATION (test code = MCHC) 33.3 gram/dL 33.0-36.0 N RED CELL DISTRIBUTION WIDTH (test code = RDW) 12.6 % 11.6-16.2 N RED CELL DISTRIBUTION WIDTH SD (test code = RDW-SD) 39.2 fL 37.0-51.0 N PLATELET COUNT (test code = PLT) 246 K/mm3 150-450 N MEAN PLATELET VOLUME (test c ode = MPV) 9.1 fL 6.7-11.0 N NEUTROPHIL % (test code = NT%) 43.9 % 39.0-69.0 N IMMATURE GRANULOCYTE % (test code = IG%) 0.2 % 0.0-5.0 N LYMPHOCYTE % (test code = LY%) 36.3 % 25.0-55.0 N MONOCYTE % (test code = MO%) 13.6 % 0.0-10.0 H EOSINOPHIL % (test code = EO%) 4.5 % 0.0-5.0 N BASOPHIL % (test code = BA%) 1.5 % 0.0-1.0 H NUCLEATED RBC % (test code = NRBC%) 0.0 % 0-0 N NEUTROPHIL # (test code = NT#) 2.42 K/mm3 1.8-7.7 N IMMATURE GRANULOCYTE # (test code = IG#) 0.01 x10 3/uL 0-0.03 N LYMPHOCYTE # (test code = LY#) 2.00 K/mm3 1.0-5.0 N MONOCYTE # (test code = MO#) 0.75 K/mm3 0-0.8 N EOSINOPHIL # (test code = EO#) 0.25 K/mm3 0.0-0.5 N BASOPHIL # (test code = BA#) 0.08 K/mm3 0.0-0.2 N NUCLEATED RBC # (test code = NRBC#) 0.00 K/mm3 0.0-0.1 N [id number] 05:45:00* Test Item Value Reference Range Interpretation Comme nts GLUBED (test code = GLUBED) 169 mg/dL 74-106 H Performed by cer tified power mule operator at [facility] [id number] 23:38:00* Test Item Value Reference Range Interpretation Comme nts GLUBED (test code = GLUBED) 164 mg/dL 74-106 H Performed by cer tified power mule operator at [facility] [id number] 16:06:00* Test Item Value Reference Range Interpretation Comme nts GLUBED (test code = GLUBED) 168 mg/dL 74-106 H Performed by cer tified power mule operator at [facility] [id number] 11:36:00* Test Item Value Reference Range Interpretation Comme nts GLUBED (test code = GLUBED) 168 mg/dL 74-106 H Performed by cer tified power mule operator at [facility] COMPREHENSIVE METABOLIC [id number] 10:07:00* Test Item Value Reference Range Interpretation Comme nts SODIUM (test code = NA) 139 mmol/L 136-145 N POTASSIUM (test code = K) 3.4 mmol/L 3.5-5.1 L CHLORIDE (test code = CL) 98.0 mmol/L 98-107 N CARBON DIOXIDE (test code = CO2) 30.0 mmol/L 21-32 N ANION GAP (test code = GAP) 14.4 10-20 N GLUCOSE (test code = GLU) 165 mg/dL 74-106 H BLOOD UREA NITROGEN (test code = BUN) < 5 mg/dL 7-18 L GLOMERULAR FILTRATION RATE (test code = GFR) > 60 mL/min >=60 The Glomerular Filtration Rate is a calculated parameterbased on serum Creatinine, patient age and sex. GFR valuesless than 60 mL/min/1.73 square meters are indicative ofChronic Kidney Disease. Values less than 15 mL/min/1.73square meters indicate Kidney failure. The calculation forGFR is based on the CKD-EPI (202) calculation. This formulais race indifferent and is the recommended formula for GFRby the National Kidney Foundation for Adults.The GFR will not calculate if the sex is unknown or if thepatient's age is <18 years. CREATININE (test code = CREAT) 1.00 mg/dL 0.7-1.3 N BUN/CREATININE RATIO (test code = BUN/CREA) 4.9 10-20 L TOTAL PROTEIN (test code = PROT) 5.7 gram/dL 6.4-8.2 L ALBUMIN (test code = ALB) 3.1 g/dL 3.4-5.0 L GLOBULIN (test code = GLOB) 2.6 gram/dL 2.7-4.2 L ALBUMIN/GLOBULIN RATIO (test code = A/G) 1.2 0.75-1.50 N CALCIUM (test code = CA) 9.4 mg/dL 8.5-10.1 N BILIRUBIN TOTAL (test code = BILT) 1.30 mg/dL 0.0-1.0 H SGOT/AST (test code = AST) 387 IUnit/L 15-37 H SGPT/ALT (test code = ALT) 402 IUnit/L 12-78 H ALKALINE PHOSPHATASE TOTAL (test code = ALKP) 77 IUnit/L 45-117 N Note change in reference range due to change in reagent. [id number] 10:07:00* Test Item Value Reference Range Interpretation Comme nts PHOSPHORUS (test code = PHOS) 3.3 mg/dL 2.5-4.9 N [id number] 10:07:00* Test Item Value Reference Range Interpretation Comme nts MAGNESIUM (test code = MAG) 1.3 mg/dL 1.8-2.4 L CBC W/AUTO [id number] 09:27:00* Test Item Value Reference Range Interpretation Comme nts WHITE BLOOD CELL (test code = WBC) 5.8 K/mm3 4.5-12.5 N RED BLOOD CELL (test code = RBC) 4.12 mill/mm3 4.0-5.8 N HEMOGLOBIN (test code = HGB) 11.9 gram/dL 13.0-17.5 L HEMATOCRIT (test code = HCT) 36.2 % 42.0-52.0 L MEAN CELL VOLUME (test code = MCV) 87.9 fL 80-98 N MEAN CELL HGB (test code = MCH) 28.9 picogram 27.0-33.0 N MEAN CELL HGB CONCETRATION (test code = MCHC) 32.9 gram/dL 33.0-36.0 L RED CELL DISTRIBUTION WIDTH (test code = RDW) 12.8 % 11.6-16.2 N RED CELL DISTRIBUTION WIDTH SD (test code = RDW-SD) 40.9 fL 37.0-51.0 N PLATELET COUNT (test code = PLT) 250 K/mm3 150-450 N MEAN PLATELET VOLUME (test c ode = MPV) 9.6 fL 6.7-11.0 N NEUTROPHIL % (test code = NT%) 39.7 % 39.0-69.0 N IMMATURE GRANULOCYTE % (test code = IG%) 0.2 % 0.0-5.0 N LYMPHOCYTE % (test code = LY%) 42.6 % 25.0-55.0 N MONOCYTE % (test code = MO%) 12.5 % 0.0-10.0 H EOSINOPHIL % (test code = EO%) 3.6 % 0.0-5.0 N BASOPHIL % (test code = BA%) 1.4 % 0.0-1.0 H NUCLEATED RBC % (test code = NRBC%) 0.0 % 0-0 N NEUTROPHIL # (test code = NT#) 2.30 K/mm3 1.8-7.7 N IMMATURE GRANULOCYTE # (test code = IG#) 0.01 x10 3/uL 0-0.03 N LYMPHOCYTE # (test code = LY#) 2.46 K/mm3 1.0-5.0 N MONOCYTE # (test code = MO#) 0.72 K/mm3 0-0.8 N EOSINOPHIL # (test code = EO#) 0.21 K/mm3 0.0-0.5 N BASOPHIL # (test code = BA#) 0.08 K/mm3 0.0-0.2 N NUCLEATED RBC # (test code = NRBC#) 0.00 K/mm3 0.0-0.1 N MANUAL DIFF REQUIRED (test c ode = MDIFF) NO [id number] 08:20:00* Test Item Value Reference Range Interpretation Comme nts GLUBED (test code = GLUBED) 169 mg/dL 74-106 H Performed by cer tified power mule operator at [facility] [id number] 05:18:00* Test Item Value Reference Range Interpretation Comme nts GLUBED (test code = GLUBED) 158 mg/dL 74-106 H Performed by cer tified power mule operator at [facility] CBC W/AUTO [id number] 01:54:00* Test Item Value Reference Range Interpretation Comme nts WHITE BLOOD CELL (test code = WBC) 5.7 K/mm3 4.5-12.5 N RED BLOOD CELL (test code = RBC) 3.91 mill/mm3 4.0-5.8 L HEMOGLOBIN (test code = HGB) 11.4 gram/dL 13.0-17.5 L HEMATOCRIT (test code = HCT) 34.5 % 42.0-52.0 L MEAN CELL VOLUME (test code = MCV) 88.2 fL 80-98 N MEAN CELL HGB (test code = MCH) 29.2 picogram 27.0-33.0 N MEAN CELL HGB CONCETRATION (test code = MCHC) 33.0 gram/dL 33.0-36.0 N RED CELL DISTRIBUTION WIDTH (test code = RDW) 12.7 % 11.6-16.2 N RED CELL DISTRIBUTION WIDTH SD (test code = RDW-SD) 41.1 fL 37.0-51.0 N PLATELET COUNT (test code = PLT) 218 K/mm3 150-450 N MEAN PLATELET VOLUME (test c ode = MPV) 9.8 fL 6.7-11.0 N NEUTROPHIL % (test code = NT%) 46.6 % 39.0-69.0 N IMMATURE GRANULOCYTE % (test code = IG%) 0.5 % 0.0-5.0 N LYMPHOCYTE % (test code = LY%) 35.4 % 25.0-55.0 N MONOCYTE % (test code = MO%) 12.1 % 0.0-10.0 H EOSINOPHIL % (test code = EO%) 4.2 % 0.0-5.0 N BASOPHIL % (test code = BA%) 1.2 % 0.0-1.0 H NUCLEATED RBC % (test code = NRBC%) 0.0 % 0-0 N NEUTROPHIL # (test code = NT#) 2.66 K/mm3 1.8-7.7 N IMMATURE GRANULOCYTE # (test code = IG#) 0.03 x10 3/uL 0-0.03 N LYMPHOCYTE # (test code = LY#) 2.02 K/mm3 1.0-5.0 N MONOCYTE # (test code = MO#) 0.69 K/mm3 0-0.8 N EOSINOPHIL # (test code = EO#) 0.24 K/mm3 0.0-0.5 N BASOPHIL # (test code = BA#) 0.07 K/mm3 0.0-0.2 N NUCLEATED RBC # (test code = NRBC#) 0.00 K/mm3 0.0-0.1 N COMPREHENSIVE METABOLIC [id number] 01:48:00* Test Item Value Reference Range Interpretation Comme nts SODIUM (test code = NA) 135 mmol/L 136-145 L POTASSIUM (test code = K) 3.3 mmol/L 3.5-5.1 L CHLORIDE (test code = CL) 96.0 mmol/L 98-107 L CARBON DIOXIDE (test code = CO2) 29.0 mmol/L 21-32 N ANION GAP (test code = GAP) 13.3 10-20 N GLUCOSE (test code = GLU) 164 mg/dL 74-106 H BLOOD UREA NITROGEN (test code = BUN) < 5 mg/dL 7-18 L GLOMERULAR FILTRATION RATE (test code = GFR) > 60 mL/min >=60 The Glomerular Filtration Rate is a calculated parameterbased on serum Creatinine, patient age and sex. GFR valuesless than 60 mL/min/1.73 square meters are indicative ofChronic Kidney Disease. Values less than 15 mL/min/1.73square meters indicate Kidney failure. The calculation forGFR is based on the CKD-EPI (202) calculation. This formulais race indifferent and is the recommended formula for GFRby the National Kidney Foundation for Adults.The GFR will not calculate if the sex is unknown or if thepatient's age is <18 years. CREATININE (test code = CREAT) 1.00 mg/dL 0.7-1.3 N BUN/CREATININE RATIO (test code = BUN/CREA) 4.9 10-20 L TOTAL PROTEIN (test code = PROT) 6.2 gram/dL 6.4-8.2 L ALBUMIN (test code = ALB) 3.3 g/dL 3.4-5.0 L GLOBULIN (test code = GLOB) 2.9 gram/dL 2.7-4.2 N ALBUMIN/GLOBULIN RATIO (test code = A/G) 1.1 0.75-1.50 N CALCIUM (test code = CA) 9.1 mg/dL 8.5-10.1 N BILIRUBIN TOTAL (test code = BILT) 1.00 mg/dL 0.0-1.0 N SGOT/AST (test code = AST) 297 IUnit/L 15-37 H SGPT/ALT (test code = ALT) 327 IUnit/L 12-78 H ALKALINE PHOSPHATASE TOTAL (test code = ALKP) 75 IUnit/L 45-117 N Note change in reference range due to change in reagent. [id number] 01:48:00* Test Item Value Reference Range Interpretation Comme nts PHOSPHORUS (test code = PHOS) 3.3 mg/dL 2.5-4.9 N [id number] 01:48:00* Test Item Value Reference Range Interpretation Comme nts MAGNESIUM (test code = MAG) 1.4 mg/dL 1.8-2.4 L [id number] 23:59:00* Test Item Value Reference Range Interpretation Comme nts GLUBED (test code = GLUBED) 169 mg/dL 74-106 H Performed by cer karen power mule operator at [facility] - CT CHEST W/O [id number] 22:12:00 [facility])Name: DANIEL LEHMAN : 1970 Sex: M Name: DANIEL LEHMAN [facility] : 1970 Age/S: 52 / M [place] [facility] Unit#: [id number] Loc: [place] [address] Phys: Danielle Oh WASTE REDUCTION COORDINATOR Acct: [id number] Dis Date: Status: ADM IN PHONE #: [phone] Exam Date: 11/11/20232204 FAX #: [phone] Reason: eval for hypoxiaEXAMS: CPT CODE: [id number] CT CHEST W/O CONTRAST 64640 Clinical Indication: SOB; Comparison: None TECHNIQUE: Sequential trans-axial images were obtained thru the chest and upper abdomen without iodinated contrast. Oral contrast has been administered. Coronal and sagittal reconstructions were obtained. 0 cc of nonionic contrast material was used for the exam. One or more of the following dose reduction techniques were used: Automated exposure control, adjustment of the mA and/or kV according topatient size, and/or utilization of iterative reconstruction technique. FINDINGS: LUNG PARENCHYMA AND PLEURA: There are no lung nodules. Mild groundglass opacities and smooth interlobular septal thickening. There are no pleural effusions. There is no pneumothorax. AIRWAY: The central airway is alicia l. . MEDIASTINUM: No significant mediastinal lymphadenopathy. HEART: There is no evidence of RV strain. The cardiac chambers are otherwise unremarkable. There is no pericardial effusion. VASCULAR STRUCTURES: Evaluation is limited on noncontrast CT. The pulmonary arteries and great vessels are unremarkable. The thoracic aorta is within normal limits.. OSSEOUS STRUCTURES: There are no significant osseous abnormalities seen. VISUALIZED UPPER ABDOMEN: The visualized upper abdomen is within normal limits. IMPRESSION: Mild groundglass opacities and smooth interlobular septal thickening may represent infectious/inflammatory process. SL: [phone] PAGE 1 Signed Report (CONTINUED) Name: DANIEL LEHMAN [facility] : 1970 Age/S: 52 / M [address] [facility] Unit #: [id number] Loc: [place] [address] Phys: Danielle Oh WASTE REDUCTION COORDINATOR Acct: [id number] Dis Date: Status: ADM IN PHONE #: [phone] Exam Date: 11/11/20232204 FAX #: [phone] Reason: eval for hypoxia EXAMS: CPT CODE: [id number] CT CHEST W/O CONTRAST 38545 (Continued) t 2211 Reported and signed by: Sachin Jameson M.D. CC: Danielle Oh WASTE REDUCTION COORDINATOR; Lindsey Coyle MD;Sang Rey MD; Davion Duckworth MD Technologist:RT LARS CTDI: DLP: Trnscb Date/Time: 11/11/2023 (2211) [email or web address] Orig Print D/T: S: 11/11/2023 () PAGE 2 Signed Report [id number] 18:14:00* Test Item Value Reference Range Interpretation Comme nts GLUBED (test code = GLUBED) 170 mg/dL 74-106 H Performed by randy jones power mule operator at [facility] - XR CHEST 1 [id number] 14:49:00 [facility])Name: LEHMANDANIEL : 1970 Sex: M FAX: Meryl Rey MD [place]: B St: ADM FAX: Lindsey Coyle FAX: Sang Helms MD [phone] FAX: Davion Duckworth MD Name: DANIEL LEHMAN [facility] : 1970 Age/S: 52/M [address] Unit #: [id number] Loc: V.S19 [place] [address] Phys: Meryl Rey MD Acct: [id number] Dis Date: Status: ADM IN PHONE #: [phone] Exam Date: 11/11/2023 1407 FAX #: [phone] Reason: RESPIRATORY FAILURE EXAMS: CPT CODE: [id number] XR CHEST 1 V 34806 REASON FOR EXAM: RESPIRATORY FAILURE Exam Order Date: 11/11/2023 1:41 PM Ordering M.DPresley: Meryl Rey MD PROCEDURE: - XR CHEST 1 V COMPARISON: Chest x-ray the previous morning FINDINGS: The lungs are hypoinflated but clear. There is no pleural effusion or pneumothorax. Pulmonary vascularity is within normal limits. Cardiomediastinal silhouette is normal in size for technique. The mediastinal contours are within normal limits. Previouslyseen right IJ central line has been removed. Degenerative changes are present in the thoracic spine. The visualized upper abdomen is within normal limits. IMPRESSION: Lung volumes are diminished however no airspace disease is seen. Location: [facility] at 2488 Reported and signed by: Jamie Aguilar MD CC: Meryl Rey MD; Lindsey Coyle MD;Sang Rey MD; Davion Duckworth MD Technologist: Jessica Smith RT(R); Esther Pearl RT(R) Trnscrd Date/Time/By: 11/11/2023 (2435) : By: [email or web address] [facility] Print D/T: S: 11/11/2023 (1583) PAGE 1 Signed [id number] 11:42:00* Test Item Value Reference Range Interpretation Comme nts GLUBED (test code = GLUBED) 194 mg/dL 74-106 H Performed by cer tified power mule operator at [facility] [id number] 05:25:00* Test Item Value Reference Range Interpretation Comme nts GLUBED (test code = GLUBED) 151 mg/dL 74-106 H Performed by cer tified power mule operator at [facility] COMPREHENSIVE METABOLIC [id number] 01:31:00* Test Item Value Reference Range Interpretation Comme nts SODIUM (test code = NA) 137 mmol/L 136-145 N POTASSIUM (test code = K) 3.1 mmol/L 3.5-5.1 L CHLORIDE (test code = CL) 99.0 mmol/L 98-107 N CARBON DIOXIDE (test code = CO2) 28.0 mmol/L 21-32 N ANION GAP (test code = GAP) 13.1 10-20 N GLUCOSE (test code = GLU) 184 mg/dL 74-106 H BLOOD UREA NITROGEN (test code = BUN) < 5 mg/dL 7-18 L GLOMERULAR FILTRATION RATE (test code = GFR) > 60 mL/min >=60 The Glomerular Filtration Rate is a calculated parameterbased on serum Creatinine, patient age and sex. GFR valuesless than 60 mL/min/1.73 square meters are indicative ofChronic Kidney Disease. Values less than 15 mL/min/1.73square meters indicate Kidney failure. The calculation forGFR is based on the CKD-EPI (202) calculation. This formulais race indifferent and is the recommended formula for GFRby the National Kidney Foundation for Adults.The GFR will not calculate if the sex is unknown or if thepatient's age is <18 years. CREATININE (test code = CREAT) 1.20 mg/dL 0.7-1.3 N BUN/CREATININE RATIO (test code = BUN/CREA) 4.1 10-20 L TOTAL PROTEIN (test code = PROT) 6.3 gram/dL 6.4-8.2 L ALBUMIN (test code = ALB) 3.4 g/dL 3.4-5.0 N GLOBULIN (test code = GLOB) 2.9 gram/dL 2.7-4.2 N ALBUMIN/GLOBULIN RATIO (test code = A/G) 1.2 0.75-1.50 N CALCIUM (test code = CA) 8.7 mg/dL 8.5-10.1 N BILIRUBIN TOTAL (test code = BILT) 0.80 mg/dL 0.0-1.0 N SGOT/AST (test code = AST) 195 IUnit/L 15-37 H SGPT/ALT (test code = ALT) 205 IUnit/L 12-78 H ALKALINE PHOSPHATASE TOTAL (test code = ALKP) 69 IUnit/L 45-117 N Note change in reference range due to change in reagent. [id number] 01:31:00* Test Item Value Reference Range Interpretation Comme nts PHOSPHORUS (test code = PHOS) 3.5 mg/dL 2.5-4.9 N [id number] 01:31:00* Test Item Value Reference Range Interpretation Comme nts MAGNESIUM (test code = MAG) 1.7 mg/dL 1.8-2.4 L CBC W/AUTO [id number] 01:08:00* Test Item Value Reference Range Interpretation Comme nts WHITE BLOOD CELL (test code = WBC) 5.1 K/mm3 4.5-12.5 N RED BLOOD CELL (test code = RBC) 3.90 mill/mm3 4.0-5.8 L HEMOGLOBIN (test code = HGB) 11.3 gram/dL 13.0-17.5 L HEMATOCRIT (test code = HCT) 34.3 % 42.0-52.0 L MEAN CELL VOLUME (test code = MCV) 87.9 fL 80-98 N MEAN CELL HGB (test code = MCH) 29.0 picogram 27.0-33.0 N MEAN CELL HGB CONCETRATION (test code = MCHC) 32.9 gram/dL 33.0-36.0 L RED CELL DISTRIBUTION WIDTH (test code = RDW) 13.1 % 11.6-16.2 N RED CELL DISTRIBUTION WIDTH SD (test code = RDW-SD) 42.1 fL 37.0-51.0 N PLATELET COUNT (test code = PLT) 211 K/mm3 150-450 N MEAN PLATELET VOLUME (test c ode = MPV) 9.1 fL 6.7-11.0 N NEUTROPHIL % (test code = NT%) 60.3 % 39.0-69.0 N IMMATURE GRANULOCYTE % (test code = IG%) 0.4 % 0.0-5.0 N LYMPHOCYTE % (test code = LY%) 26.0 % 25.0-55.0 N MONOCYTE % (test code = MO%) 9.8 % 0.0-10.0 N EOSINOPHIL % (test code = EO%) 2.3 % 0.0-5.0 N BASOPHIL % (test code = BA%) 1.2 % 0.0-1.0 H NUCLEATED RBC % (test code = NRBC%) 0.0 % 0-0 N NEUTROPHIL # (test code = NT#) 3.08 K/mm3 1.8-7.7 N IMMATURE GRANULOCYTE # (test code = IG#) 0.02 x10 3/uL 0-0.03 N LYMPHOCYTE # (test code = LY#) 1.33 K/mm3 1.0-5.0 N MONOCYTE # (test code = MO#) 0.50 K/mm3 0-0.8 N EOSINOPHIL # (test code = EO#) 0.12 K/mm3 0.0-0.5 N BASOPHIL # (test code = BA#) 0.06 K/mm3 0.0-0.2 N NUCLEATED RBC # (test code = NRBC#) 0.00 K/mm3 0.0-0.1 N [id number] 00:02:00* Test Item Value Reference Range Interpretation Comme nts GLUBED (test code = GLUBED) 176 mg/dL 74-106 H Performed by cer tified power mule operator at [facility] [id number] 18:44:00* Test Item Value Reference Range Interpretation Comme nts TROPONIN-HS (test code = TROPI) 12.600 pg/mL 0-54 N 99th Percentile Upper Reference Limit (URL):Females: 34 pg/mLMales: 54 pg/mL In order to distinguish acute elevations of high sensitivitytroponin from other clinical conditions, the FourthUniversal Definition of Myocardial Infarction stressesclinical assessment and the demonstration of a rise and/orfall in serial troponin results above the URL. These results were obtained using Siemens Creditera IM TnIHreagent. Results from different methodologies should not becompared to one another as quantitative results and URLs mayvary by method. NOTE: A Positive Bias may occur for patients taking Biotin Supplements.NOTE: Current test methodology (pg/mL) units differ from prior test methodology (ng/mL) by a factor of 1000. [id number] 17:04:00* Test Item Value Reference Range Interpretation Comme nts GLUBED (test code = GLUBED) 158 mg/dL 74-106 H Performed by cer tified power mule operator at [facility] INFLUENZA A B [id number] 16:12:00* Test Item Value Reference Range Interpretation Comme nts INFLUENZA A POC (test code = INFLAAG) Negative Negative INFLUENZA B POC (test code = INFLBAG) Negative Negative - CT ABD PELVIS W/O [id number] 16:12:00 [facility])Name: DANIEL LEHMAN : 1970 Sex: M Name: DANIEL LEHMAN [facility] : 1970 Age/S: 52 / M [address] [facility] Unit#: [id number] Loc: [place] [address] Phys: Meryl Rey MD Acct: [id number] Dis Date: Status: ADM IN PHONE #: [phone] Exam Date: 11/10/2023 1528 FAX #: [phone] Reason: ABDOMINAL PAIN/VOMETING EXAMS: CPT CODE: [id number] CT ABD PELVIS W/O CONT 49852 REASON FOR EXAM: ABDOMINAL PAIN/VOMETING EXAM ORDER DATE: 11/10/2023 1:57 PM Ordering M.D.: Meryl Rey MD PROCEDURE: Axial CT images were acquired through the abdomen/pelvis at 5 mm intervals. Sagittal and coronal reformatted images were generated. CT dose reduction protocol: Automated exposure control adjustment of mA and/or kV according to patient size or iterative reconstruction dose optimization techniques were used. Phases of contrast: None COMPARISON: Abdominal radiographs earlier today FINDINGS: The absence of IV contrast limits sensitivity of this exam for the detection of soft tissue pathology Visualized thorax: There is mild subsegmental atelectasis in the lung bases Hepatobiliary system: Grossly normal Pancreas: Grossly normal Spleen: Grossly normal Adrenal glands: Grossly normal Genitourinary system: Grossly normal Gastrointestinal tract and appendix: Grossly normal Abdominal vascular structures: Grossly normal Other: No free fluid or free air. No abnormal lymph nodes. Musculoskeletal structures and abd ominal wall: Degenerative changes are present in the spine PAGE 1 Signed Report (CONTINUED) Name: DANIEL LEHMAN [facility] : 1970 Age/S: 52 / M [address] [facility] Unit #: [id number] Loc: [place] [address] Phys: Meryl Rey MD Acct: [id number] Dis Date: Status: ADM IN PHONE #: [phone] Exam Date: 11/10/2023 1528 FAX #: [phone] Reason: ABDOMINAL PAIN/VOMETING EXAMS: CPT C ODE: [id number] CT ABD PELVIS W/O CONT 93301 (Continued) IMPRESSION: No acute intra-abdominal findings. Location: [facility] at 1612 Reported and signed by: Jamie Aguilar MD CC: Meryl Rey MD; Jermeias Ibarra MD; Sang Rey MD; Davion Duckworth MD Technologist:Renay Aleman RT(R),CT CTDI: DLP: Trnscb Date/Time: 11/10/2023 (1612) [email or web address] Orig Print D/T: S: 11/10/2023 (8175) PAGE 2 Signed ReportB-TYPE NATRIURETIC [id number] 16:07:00* Test Item Value Reference Range Interpretation Comme nts B-TYPE NATRIURETIC PEPTIDE (test code = BNP) 19.6 pgram/mL 0-100 N - CT HEAD/BRAIN W/O [id number] 16:07:00 [facility] ([facility])Name: DANIEL LEHMAN : 1970 Sex: M Name: DANIEL LEHMAN [facility] : 1970 Age/S: 52 / M [address] [facility] Unit#: [id number] Loc: [place] [address] Phys: Meryl Rey MD Acct: [id number] Dis Date: Status: ADM IN PHONE #: [phone] Exam Date: 11/10/2023 1528 FAX #: [phone] Reason: S/P FALL EXAMS: CPT CODE: [id number] CT HEAD/BRAIN W/O CONT 72876 HISTORY: S/P FALL TECHNIQUE: Noncontrast 2.[address] of the head. Examination acquired within [address] dose reduction protocol: Automated exposure control adjustment of mA and/or kV according to patient size or iterative reconstruction dose optimization techniques were used. COMPARISON: None FINDINGS: No lacerations or contusions of the scalp or facial soft tissues. Calvarium and skull base are intact. No acute hemorrhage. No intracranial mass, mass effect, or midline shift. No effacement of the sulci or cohen-white matter interface. No cortical atrophy. No signs of white matter small-vessel disease. No hydrocephalus.. No extra-axial fluid collection. Visualized paranasal sinuses are clear. Mastoid air cells and middle earcavities are clear. Orbital contents are unremarkable. IMPRESSION: Negative CT head. Location: [facility] at 1607 Reported and signed by: Jamie Aguilar MD CC: Meryl Rey MD; Jeremias Ibarra MD; Sang Rey MD; Davion Duckworth MD Technologist:Carolyn Aleman RT(R),CT CTDI: DLP: Trnscb Date/Time: 11/10/2023 (1607) [email or web address] Orig Print D/T: S: 11/10/2023 (3369) PAGE 1 Signed ReportTROPONIN-HS 2023-11-10 15:47:00* Test Item Value Reference Range Interpretation Comme [facility] TROPONIN-HS (test code = TROPI) 12.990 pg/mL 0-54 N 99th Percentile Upper Reference Limit (URL):Females: 34 pg/mLMales: 54 pg/mL In order to distinguish acute elevations of high sensitivitytroponin from other clinical conditions, the FourthUniversal Definition of Myocardial Infarction stressesclinical assessment and the demonstration of a rise and/orfall in serial troponin results above the URL. These results were obtained using Siemens Creditera IM TnIHreagent. Results from different methodologies should not becompared to one another as quantitative results and URLs mayvary by method. NOTE: A Positive Bias may occur for patients taking Biotin Supplements.NOTE: Current test methodology (pg/mL) units differ from prior test methodology (ng/mL) by a factor of 1000. ARTERIAL BLOOD [id number] 14:20:00* Test Item Value Reference Range Interpretation [facility] ARTERIAL BLOOD GAS PH (test code = PHA) 7.34 7.35-7.45 L ARTERIAL BLOOD GAS PCO2 (test code = PCO2A) 44.1 mm Hg 35-45 N ARTERIAL BLOOD GAS PO2 (test code = PO2A) 70.8 mmHg 80-100 L BICARBONATE TOTAL HCO3 (test code = HCO3) 23.1 mmol/L 23.0-27.0 N BASE EXCESS (test code = MONY) -2.7 mmol/L -3.0-5.0 N ABG O2 SATURATION (test code = SATA) 92.9 % 90.0-98.0 N ABG TYPE (test code = TYPEA) Arterial FIO2 (test code = FIO2A) 80.0 ABG SITE (test code = SITEA) Rt BRACHIAL ARTERY MODIFIED ALLENS (test code = MODALL) Yes CHECK PERFORMED SODIUM (test code = NA/ABG) 135.6 mEq/L 135-148 N POTASSIUM (test code = K/ABG) 3.2 mEq/L 3.5-4.5 L CHLORIDE (test code = CL/ABG) 100 mEq/L 98-106 N GLUCOSE (test code = GLU/ABG) 169 mg/dL 74-99 H HEMATOCRIT (test code = HCT/ABG) 38 % 42-52 L IONIZED CALCIUM (test code = CAIABG) 1.18 mmol/L 1.1-1.37 N TOTAL HGB (test code = THB) 12.9 gram/dL 13.0-17.5 L HGB O2 SAT (test code = HBOSAT) 92.1 % 94.00-98.00 L CARBOXYHEMOGLOBIN (test code = HOHGBT) 0.3 %totalHg 0.5-1.5 LL Results called to and read back by DRat 14:20 - 11/10/2023; by LS METHEMOGLOBIN (test code = METHGB) 0.6 % 0.0-1.50 N O2 CONTENT (test code = O2CT) 16.7 % vol 18.0-22.0 L - XR ABDOMEN AP 1 [id number] 14:19:00 [facility])Name: DANIEL LEHMAN : 1970 Sex: M FAX: Meryl Rey MD [place]: B St: [facility] FAX: Lupe Boo MD [phone] FAX: Sang Helms MD [phone] FAX: Davion Duckworth MD Name: DANIEL LEHMAN [facility] : 1970 Age/S: 52/M [address] [facility]: [id number] Loc: V.S19 [place] [address] Phys: Meryl Rey MD Acct: [id number] Dis Date: Status: ADM IN PHONE #: [phone] Exam Date: 11/10/2023 1345 FAX #: [phone] Reason: NAUSEA/VOMETING EXAMS: CPT CODE: [id number] XR ABDOMEN AP 1 V 13726 HISTORY: NAUSEA/VOMETING PROCEDURE: - XR ABDOMEN AP 1 V COMPARISON: None FINDINGS: Nonobstructive bowel gas pattern. No significant stool burden. No intra-abdominal mass effect. No abnormal calcifications are observed. Visualized osseous structures are intact. Visualized thorax is within normal limits. IMPRESSION: No radiographic evidence of acute intra-abdominal process. Location: [facility] at 1419 Reported and signed by: Jamie Aguilar MD CC: Meryl Rey MD; Lupe Bailon MD; Sang Rey MD; Davion Duckworth MD Technologist: Catherine Lorenzo RT(R) Trnscrd Date/Time/By: 11/10/2023 (5816) : By: [email or web address] Orig Print D/T: S: 11/10/2023 (4103) PAGE 1 Signed ReportURINALYSIS [id number] 12:26:00* Test Item Value Reference Range Interpretation Comme nts UA COLOR (test code = COLU) Light-Yellow YELLOW UA APPEARANCE (test code = APPU) CLEAR CLEAR IS THE SAMPLE FROM ER OR L&D?N IF THE ANSWER IS NO,PLEASE DOCUMENT TWO RN SIGNATURES HERE- [id number], [id number] 11/10/23 1226 UA GLUCOSE DIPSTICK (test code = DGLUU) NEGATIVE mg/dL NEGATIVE UA BILIRUBIN DIPSTICK (test code = BILU) NEGATIVE mg/dL NEGATIVE UA KETONE DIPSTICK (test code = KETU) 10 (1+) mg/dL NEGATIVE A UA SPECIFIC GRAVITY (test code = SGU) 1.007 1.001-1.035 UA BLOOD DIPSTICK (test code = CORDELL) Negative mg/dL NEGATIVE UA PH DIPSTICK (test code = SANTHOSH) 5.0 5.0-8.0 UA PROTEIN DIPSTICK (test code = PROU) NEGATIVE mg/dL NEGATIVE UA UROBILINIOGEN DIPSTICK (test code = URO) Normal mg/dL NEGATIVE UA NITRITE DIPSTICK (test code = GUSTABO) NEGATIVE NEGATIVE UA LEUKOCYTE ESTERASE W REFLEX (test code = LEUUR) NEGATIVE Jonathan/uL NEGATIVE UA WBC (test code = WBCU) 0-5 per HPF 0-5 UA RBC (test code = RBCU) 0-2 #/HPF 0-5 UA EPITHELIAL CELLS (test code = EPIU) FEW per HPF FEW UA BACTERIA (test code = BACU) FEW #/HPF NONE A UA HYALINE CAST (test code = HYALU) 6-10 #/LPF 0-5 A UA MUCUS (test code = MUCU) FEW #/LPF FEW Urine Source? Clean CatchCOMPREHENSIVE METABOLIC [id number] 12:03:00* Test Item Value Reference Range Interpretation Comme nts SODIUM (test code = NA) 139 mmol/L 136-145 N POTASSIUM (test code = K) 3.5 mmol/L 3.5-5.1 N CHLORIDE (test code = CL) 102.0 mmol/L 98-107 N CARBON DIOXIDE (test code = CO2) 26.0 mmol/L 21-32 N ANION GAP (test code = GAP) 14.5 10-20 N GLUCOSE (test code = GLU) 172 mg/dL 74-106 H BLOOD UREA NITROGEN (test code = BUN) 9 mg/dL 7-18 N GLOMERULAR FILTRATION RATE (test code = GFR) 48 mL/min >=60 The Glomerular Filtration Rate is a calculated parameterbased on serum Creatinine, patient age and sex. GFR valuesless than 60 mL/min/1.73 square meters are indicative ofChronic Kidney Disease. Values less than 15 mL/min/1.73square meters indicate Kidney failure. The calculation forGFR is based on the CKD-EPI (202) calculation. This formulais race indifferent and is the recommended formula for GFRby the National Kidney Foundation for Adults.The GFR will not calculate if the sex is unknown or if thepatient's age is <18 years. CREATININE (test code = CREAT) 1.70 mg/dL 0.7-1.3 H BUN/CREATININE RATIO (test code = BUN/CREA) 5.2 10-20 L TOTAL PROTEIN (test code = PROT) 5.9 gram/dL 6.4-8.2 L ALBUMIN (test code = ALB) 3.4 g/dL 3.4-5.0 N GLOBULIN (test code = GLOB) 2.5 gram/dL 2.7-4.2 L ALBUMIN/GLOBULIN RATIO (test code = A/G) 1.4 0.75-1.50 N CALCIUM (test code = CA) 8.5 mg/dL 8.5-10.1 N BILIRUBIN TOTAL (test code = BILT) 0.80 mg/dL 0.0-1.0 N SGOT/AST (test code = AST) 50 IUnit/L 15-37 H SGPT/ALT (test code = ALT) 115 IUnit/L 12-78 H ALKALINE PHOSPHATASE TOTAL (test code = ALKP) 70 IUnit/L 45-117 N Note change in reference range due to change in reagent. - XR CHEST 1 [id number] 11:57:00 [facility])Name: DANIEL LEHMAN : 1970 Sex: M FAX: Meryl Rey MD [place]: B St: ADM FAX: Lupe Boo MD [phone] FAX: Sang Helms MD [phone] FAX: Davion Duckworth MD Name: DANIEL LEHMAN [facility] : 1970 Age/S: 52/M Lesley Gerard Unit #: [id number] Loc: [place] [address] Phys: Meryl Rey MD Acct: [id number] Dis Date: Status: ADM IN PHONE #: [phone] Exam Date: 11/10/2023 1140 FAX #: [phone] Reason: respiratory failure EXAMS: CPT CODE: [id number] XR CHEST 1 V 38774 HISTORY: Respiratory failure. COMPARISON: Chest x- ray from September 24, 2022. Location: [facility]. Right jugular catheter with the tip projected over the SVC. Patchy left interstitial infiltrate. No effusion or congestion. Mild cardiomegaly. IMPRESSION: Patchy left interstitial infiltrate. at 1157 Reported and signed by: Arnaud Duggan M.D. CC: Meryl Rey MD; Lupe Bailon MD; Sang Rey MD; Davion Duckworth MD Technologist: Mauricio KING(R) Trnscrd Date/Time/By: 11/10/2023 (5873) : By: [email or web address] Orig Print D/T: S: 11/10/2023 (9995) PAGE 1 Signed ReportLACTIC [id number] 11:54:00* Test Item Value Reference Range Interpretation Comme nts LACTIC ACID (test code = LACT) 0.8 mmol/L 0.4-1.9 N PROTHROMBIN [id number] 11:53:00* Test Item Value Reference Range Interpretation Comme nts PROTHROMBIN TIME PATIENT (test code = PTP) 12.6 seconds 10.0-14.0 N INTERNATIONAL NORMAL RATIO (test code = INR) 1.1 0.8-1.2 N The therapeutic range for oral anticoagulant therapy formost indications is an international normalized ratio (INR)of between 2.0 and 3.0. The recommended therapeutic INRrange for various clinical situations is listed below: Clinical Situation INR range Pulmonary embolism treatment (2.0-3.0)Venous thrombosis treatmentVenous thrombosis prophylaxis (high risk surgery)Prevention of systemic embolism from: Acute myocardial infarction Valvular heart disease Atrial fibrillation Mechanical prosthetic heart valves (2.5-3.5) IS PATIENT ON ANTICOAGULANTS? NCBC W/AUTO [id number] 11:51:00* Test Item Value Reference Range Interpretation Comme nts WHITE BLOOD CELL (test code = WBC) 7.0 K/mm3 4.5-12.5 N RED BLOOD CELL (test code = RBC) 3.98 mill/mm3 4.0-5.8 L HEMOGLOBIN (test code = HGB) 11.6 gram/dL 13.0-17.5 L HEMATOCRIT (test code = HCT) 35.4 % 42.0-52.0 L MEAN CELL VOLUME (test code = MCV) 88.9 fL 80-98 N MEAN CELL HGB (test code = MCH) 29.1 picogram 27.0-33.0 N MEAN CELL HGB CONCETRATION (test code = MCHC) 32.8 gram/dL 33.0-36.0 L RED CELL DISTRIBUTION WIDTH (test code = RDW) 12.9 % 11.6-16.2 N RED CELL DISTRIBUTION WIDTH SD (test code = RDW-SD) 41.6 fL 37.0-51.0 N PLATELET COUNT (test code = PLT) 214 K/mm3 150-450 N MEAN PLATELET VOLUME (test c ode = MPV) 8.9 fL 6.7-11.0 N NEUTROPHIL % (test code = NT%) 60.8 % 39.0-69.0 N IMMATURE GRANULOCYTE % (test code = IG%) 0.6 % 0.0-5.0 N LYMPHOCYTE % (test code = LY%) 27.0 % 25.0-55.0 N MONOCYTE % (test code = MO%) 9.0 % 0.0-10.0 N EOSINOPHIL % (test code = EO%) 2.0 % 0.0-5.0 N BASOPHIL % (test code = BA%) 0.6 % 0.0-1.0 N NUCLEATED RBC % (test code = NRBC%) 0.0 % 0-0 N NEUTROPHIL # (test code = NT#) 4.28 K/mm3 1.8-7.7 N IMMATURE GRANULOCYTE # (test code = IG#) 0.04 x10 3/uL 0-0.03 H LYMPHOCYTE # (test code = LY#) 1.90 K/mm3 1.0-5.0 N MONOCYTE # (test code = MO#) 0.63 K/mm3 0-0.8 N EOSINOPHIL # (test code = EO#) 0.14 K/mm3 0.0-0.5 N BASOPHIL # (test code = BA#) 0.04 K/mm3 0.0-0.2 N NUCLEATED RBC # (test code = NRBC#) 0.00 K/mm3 0.0-0.1 N REAGENT STRIP/BLOOD [id number] 00:00:00* Test Item Value Reference Range Interpretation Comme [facility] BLOOD SUGAR (test code = 793448) 263 mg/dL 65-99 A Lab Interpretation (test cod e = 45115-1) Abnormal Maisha Seybold - ExternalTELERETINAL DIABETIC [id number] 15:16:00* Test Item Value Reference Range Interpretation Comme [facility] IMP (test code = IMP) 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 PlanRepeat diabetic retinopathy screening in 1 year Lab Interpretation (test code = 40477-9) Abnormal Maisha Seybold - ExternalPOCT GLUCOSE (AUTOMATED)2022-11-12 17:36:05* Test Item Value Reference Range Interpretation Com[facility] POCT GLU (test code = 9145915351) 186 mg/dL 70-110 H Lab Interpretation (test cod e = 31938-7) Abnormal [facility] 14:01:05* Test Item Value Reference Range Interpretation Com[facility] POCT GLU (test code = 5965903380) 143 mg/dL 70-110 H Lab Interpretation (test cod e = 27532-5) [facility]-12 02:11:38* Test Item Value Reference Range Interpretation Comme nts POCT GLU (test code = 3496909784) 185 mg/dL 70-110 H Lab Interpretation (test cod e = 82120-0) [facility]normal [facility]2022-11-11 22:21:02* Test Item Value Reference Range Interpretation Comme nts POCT GLU (test code = 1201452306) 153 mg/dL 70-110 H Lab Interpretation (test cod e = 62445-5) [facility]normal [facility]ATED)2022-11-11 17:34:44* Test Item Value Reference Range Interpretation Comme nts POCT GLU (test code = 4639256635) 158 mg/dL 70-110 H Lab Interpretation (test cod e = 05911-4) Abnormal [facility] GLUCOSE (AUTOMATED)2022-11-11 13:54:40* Test Item Value Reference Range Interpretation Comme nts POCT GLU (test code = 2630572436) 145 mg/dL 70-110 H Lab Interpretation (test cod e = 28658-6) Abnormal [facility] GLUCOSE (AUTOMATED)2022-11-11 02:46:38* Test Item Value Reference Range Interpretation Comme nts POCT GLU (test code = 1261435487) 230 mg/dL 70-110 H Lab Interpretation (test cod e = 31013-0) [facility] 22:41:53* Test Item Value Reference Range Interpretation Comme nts POCT GLU (test code = 0705124170) 161 mg/dL 70-110 H Lab Interpretation (test cod e = 81620-7) [facility]normal [facility]2022-11-10 22:09:00* Test Item Value Reference Range Interpretation Comme nts POCT GLU (test code = 9159408348) 140 mg/dL 70-110 H Lab Interpretation (test cod e = 50766-6) Abnormal [facility]2022-11-10 14:40:30* Test Item Value Reference Range Interpretation Comme nts POCT GLU (test code = 6442548449) 140 mg/dL 70-110 H Lab Interpretation (test cod e = 10001-8) Abnormal [facility] GLUCOSE (AUTOMATED)2022-11-10 13:39:06* Test Item Value Reference Range Interpretation Comme nts POCT GLU (test code = 5636013904) 129 mg/dL 70-110 H Lab Interpretation (test cod e = 35392-6) Abnormal [facility] GLUCOSE (AUTOMATED)2022-11-10 03:12:17* Test Item Value Reference Range Interpretation Comme nts POCT GLU (test code = 3107003360) 142 mg/dL 70-110 H Lab Interpretation (test cod e = 83504-3) Abnormal [facility] GLUCOSE (AUTOMATED)2022-11-07 22:01:53* Test Item Value Reference Range Interpretation Comme nts POCT GLU (test code = 2909912097) 150 mg/dL 70-110 H Lab Interpretation (test cod e = 50978-8) Abnormal [facility] GLUCOSE (AUTOMATED)2022-11-07 17:30:01* Test Item Value Reference Range Interpretation Comme nts POCT GLU (test code = 7280880366) 178 mg/dL 70-110 H Lab Interpretation (test cod e = 11307-5) Abnormal [facility] GLUCOSE (AUTOMATED)2022-11-07 14:17:47* Test Item Value Reference Range Interpretation Comme nts POCT GLU (test code = 9760267883) 156 mg/dL 70-110 H Lab Interpretation (test cod e = 88886-9) Abnormal [facility] GLUCOSE (AUTOMATED)2022-11-07 03:33:30* Test Item Value Reference Range Interpretation Comme nts POCT GLU (test code = 4195516290) 153 mg/dL 70-110 H Lab Interpretation (test cod e = 43622-7) Abnormal [facility] GLUCOSE (AUTOMATED)2022-11-06 22:57:40* Test Item Value Reference Range Interpretation Comme nts POCT GLU (test code = 6674938105) 139 mg/dL 70-110 H Lab Interpretation (test cod e = 83452-4) Abnormal [facility] [id number] 22:26:29* Test Item Value Reference Range Interpretation Comme nts BOH (test code = 3352835361) 3.0 mmol/L ZULEIMA (test code = ZULEIMA) Normal Ranges: ? ? Nonfasting ? Less than 0.1 mmol/L ? ? Overnight Fast ? ? ? Less than 0.4 mmol/L ? ? Fasting (1-2 weeks) ?6-8 mmol/L Test developed and characteristics determined by [facility] Laboratory Services. [facility] Metabolic Panel (Na, K, Cl, CO2, Glucose, BUN, Creatinine, Ca)2022-11-06 21:22:03* Test Item Value Reference Range Interpretation Comme nts NA (test code = 0217043133) 136 mmol/L 135-145 K (test code = 8239656817) 3.9 mmol/L 3.5-5.0 Slight hemolysis CL (test code = 3238083100) 109 mmol/L 98-108 H CO2 TOTAL (test code = 4030188637) 15 mmol/L 23-31 L AGAP (test code = 5092882867) 2-16 BUN (test code = 6946249466) 7-23 L Slight hemolysis GLUCOSE (test code = 0297466700) 171 mg/dL 70-110 H CREATININE (test code = 7875936189) 0.49 mg/dL 0.60-1.25 L CALCIUM (test code = 6025852272) 7.9 mg/dL 8.6-10.6 L eGFR (test code = 9893297418) mL/min/1.73m2 ZULEIMA (test code = ZULEIMA) Association [...] imaging tests). Lab Interpretation (test code = 93005-7) Abnormal [facility]2022-11-06 16:16:50* Test Item Value Reference Range Interpretation Comme [facility] POCT GLU (test code = 4141410753) 163 mg/dL 70-110 H Lab Interpretation (test cod e = 46870-2) Abnormal [facility] (Na, K, Cl, CO2, Glucose, BUN, Creatinine, Ca)2022-11-06 12:51:08* Test Item Value Reference Range Interpretation Com[facility] NA (test code = 7990584090) 135 mmol/L 135-145 K (test code = 4014190937) 4.7 mmol/L 3.5-5.0 Slight hemolysis CL (test code = 7224297891) 110 mmol/L 98-108 H CO2 TOTAL (test code = 0261817803) 12 mmol/L 23-31 L AGAP (test code = 5799979427) 2-16 BUN (test code = 7816533203) 3 mg/dL 7-23 L Slight hemolysis GLUCOSE (test code = 7719857439) 152 mg/dL 70-110 H CREATININE (test code = 1515715045) 0.62 mg/dL 0.60-1.25 CALCIUM (test code = 4955028396) 8.3 mg/dL 8.6-10.6 L eGFR (test code = 0047651273) mL/min/1.73m2 ZULEIMA (test code = ZULEIMA) Association [...] imaging tests). Lab Interpretation (test code = 02354-5) Abnormal [facility] GLUCOSE (AUTOMATED)2022-11-06 11:27:27* Test Item Value Reference Range Interpretation Comme [facility] POCT GLU (test code = 8160483645) 139 mg/dL 70-110 H Lab Interpretation (test cod e = 21801-4) Abnormal [facility] GLUCOSE (AUTOMATED)2022-11-06 09:28:37* Test Item Value Reference Range Interpretation Comme [facility] POCT GLU (test code = 7350928053) 137 mg/dL 70-110 H Lab Interpretation (test cod e = 52218-8) Abnormal [facility] GLUCOSE(AGE >30DAYS)2022-11-06 08:15:00* Test Item Value Reference Range Interpretation Comme [facility] POCT Glu (age>30days) (test code = 3342) 107 mg/dL 70-110 Lab Interpretation (test cod e = 52165-7) Normal [facility] GLUCOSE (AUTOMATED)2022-11-06 06:58:20* Test Item Value Reference Range Interpretation Comme nts POCT GLU (test code = 4635056388) 96 mg/dL 70-110 Lab Interpretation (test cod e = 32574-5) Normal [facility] >30DAYS)2022-11-06 06:58:00* Test Item Value Reference Range Interpretation Comme nts POCT Glu (age>30days) (test code = 3342) 96 mg/dL 70-110 Lab Interpretation (test cod e = 47937-4) Normal [facility] CenterTROP[facility] [id number] 05:12:24* Test Item Value Reference Range Interpretation Comments TROPONIN I (test code = 3590509494) 0.003 ng/mL See_Comment [Automated message] The system [...] of biotin. Lab Interpretation (test code = 79524-1) Normal [facility] CenterN-[facility]AL [id number] 05:09:22* Test Item Value Reference Range Interpretation Comme nts NT-proBNP (test code = 5604395176) 58 pg/mL See_Comment [Automated message] The system which generated this result transmitted reference range: <=125. The reference range was not used to interpret this result as normal/abnormal. ZULEIMA (test code = ZULEIMA) Biotin has been reported to cause a negative bias, interpret results relative to patient's use of biotin. Lab Interpretation (test code = 77213-8) Normal [facility] Center[facility] METABOLIC PANEL (20133)2022-11-06 05:00:43* Test Item Value Reference Range Interpretation Comme nts NA (test code = 1906152143) 135 mmol/L 135-145 K (test code = 1542764072) 4.3 mmol/L 3.5-5.0 CL (test code = 0601918862) 106 mmol/L 98-108 CO2 TOTAL (test code = 3418984588) 11 mmol/L 23-31 L AGAP (test code = 6772627178) 2-16 H BUN (test code = 7054994375) 3 mg/dL 7-23 L GLUCOSE (test code = 4057902016) 129 mg/dL 70-110 H CREATININE (test code = 1013622118) 0.71 mg/dL 0.60-1.25 TOTAL BILI (test code = 9603756430) 1.0 mg/dL 0.1-1.1 CALCIUM (test code = 6251078901) 8.7 mg/dL 8.6-10.6 T PROTEIN (test code = 5750952496) 6.6 g/dL 6.3-8.2 ALBUMIN (test code = 9802883981) 3.9 g/dL 3.5-5.0 ALK PHOS (test code = 2695717441) 85 U/L 34-122 ALTv (test code = 1742-6) 125 U/L 5-50 H AST(SGOT) (test code = 5884289480) 39 U/L 13-40 eGFR (test code = 2045378815) mL/min/1.73m2 ZULEIMA (test code = ZULEIMA) Association [...] imaging tests). Lab Interpretation (test code = 90137-8) Abnormal [facility] CenterLIPASE2022-12-08 05:00:43* Test Item Value Reference Range Interpretation Comme nts LIPASE (test code = 1788009008) 105 U/L 0-220 Lab Interpretation (test cod e = 58949-1) Normal [facility] WITH [id number] 04:33:58* Test Item Value Reference Range Interpretation Comme nts WBC (test code = 6690-2) See_Comment [Automated [employer]] The system which generated this result transmitted reference range: 4.20 - 10.70 10*3/?L. The reference range was not used to interpret this result as normal/abnormal. RBC (test code = 789-8) See_Comment [Automated [employer]] The system which generated this result transmitted [...] 32.9 g/dL 31.2-35.0 RDW-SD (test code = 58366-2) 47.2 fL 38.5-51.6 RDW-CV (test code = 788-0) 14.2 % 12.1-15.4 PLT (test code = 777-3) See_Comment [Automated messa ge] The system which generated this result transmitted reference range: 150 - 328 10*3/?L. The reference range was not used to interpret this result as normal/abnormal. MPV (test code = 97411-1) 8.5 fL 9.8-13.0 L NRBC/100 WBC (test code = 3287004989) See_Comment [Automated [employer] ssage] The system which generated this result transmitted reference range: 0.0 - 10.0 /100 WBCs. The reference range was not used to interpret this result as normal/abnormal. NRBC x10^3 (test code = 1830815069) See_Comment [Automated messa ge] The system which generated this result transmitted reference range: 10*3/?L. The reference range was not used to interpret this result as normal/abnormal. GRAN MAT (NEUT) % (test code = 770-8) 53.8 % IMM GRAN % (test code = 5625409596) 0.60 % LYMPH % (test code = 736-9) 34.6 % MONO % (test code = 5905-5) 8.3 % EOS % (test code = 713-8) 2.4 % BASO % (test code = 706-2) 0.3 % GRAN MAT x10^3(ANC) (test code = 9832250062) 3.85 10*3/uL 1.99-6.95 IMM GRAN x10^3 (test code = 3306755323) 0.04 10*3/uL 0.00-0.06 LYMPH x10^3 (test code = 731-0) 2.47 10*3/uL 1.09-3.23 MONO x10^3 (test code = 742-7) 0.59 10*3/uL 0.36-1.02 EOS x10^3 (test code = 711-2) 0.17 10*3/uL 0.06-0.53 BASO x10^3 (test code = 704-7) 0.01-0.09 Lab Interpretation (test code = 04950-3) Abnormal [facility]- X[facility] CHEST 1 [id number] 09:27:00 [facility] : 1970 Sex: M Name: DANIEL LEHMAN [facility] : 1970 Age/S: 51 / M [address] Unit #: [id number] Loc: [place] [address] Phys: Randall Veloz MD Acct: [id number] Dis Date: Status: [facility] PHONE #: [phone] Exam Date: 09/24/2022909 FAX #: Reason: PRE OP EXAMS: CPT: [id number] XR CHEST 1 V 64007 Fluoro Time: DAP (Gy m2): Air Kerma (mGy): EXAMINATION: - XR CHEST 1 V. LOCATION: U19. HISTORY: PRE OP, GERD. COMPARISON: None. FINDINGS: Examination is limited due to portable technique and patient body habitus. Cardiac silhouette/Mediastinal contour: Prominence of cardiac silhouette. Lungs: No focal consolidation. No large pleural effusion. Osseous Structures: Mild degenerativechanges affect thoracic spine. IMPRESSION: No focal consolidation. Prominence of cardiac silhouette. at 0927 Reported and signed by: Sil Hooks M.D. CC: Randall Veloz MD; Lukasz Saul MD PAGE 1 Signed ReportName: DANIEL LEHMAN [facility] : 1970 Age/S: 51 / M [address] Unit #: [id number] Loc: [place] [address] Phys: Randall Veloz MD Acct: [id number] Dis Date: Status: REG SDC PHONE #: [phone] Exam Date: 09/24/2022 09 FAX #: Reason: PRE OP EXAMS: CPT: [id number] XR CHEST 1 V 33265 Fluoro Time: DAP (Gy m2): Air Kerma (mGy): (Continued) Technologist: Delano Sorenson,RT(R)(CT) Trnscb Date/Time: 09/24/2022 (926) t.SDR.ANS4 Orig Print D/T: S: 09/24/2022 (5109) PAGE2 Signed ReportCBC W/AUTO [id number] 09:06:00* Test Item Value Reference Range Interpretation [...] = MDIFF) NO DIFF/SCN CRITERIA BASIC METABOLIC [id number] 09:00:00* Test Item Value Reference Range Interpretation [...] 8.9 MG/DL 8.5-10.1 N COVID 19 INHOUSE [id number] 08:52:00* Test Item Value Reference Range Interpretation Comme nts COVID 19 INHOUSE AG (test code = [id number]) NEGATIVE Negative Per field training agent , negative results should be treated aspresumptive [...] Test Item Value Reference Range Interpretation Comme [facility] POCT GLU (test code = 7688218291) 193 mg/dL 70-110 H Lab Interpretation (test cod e = 80463-4) Abnormal [facility] GLUCOSE (AUTOMATED)2022-09-04 13:42:12* Test Item Value Reference Range Interpretation Comme [facility] POCT GLU (test code = 0607954449) 185 mg/dL 70-110 H Lab Interpretation (test cod e = 55352-3) Abnormal [facility] GLUCOSE (AUTOMATED)2022-09-04 05:36:51* Test Item Value Reference Range Interpretation Comme [facility] POCT GLU (test code = 7410572344) 204 mg/dL 70-110 H Lab Interpretation (test cod e = 70561-5) [facility] 05:24:19* Test Item Value Reference Range Interpretation Comme [facility] HGB A1C (test code = 4548-4) 9.2 % 4-5.7 H ZULEIMA (test code = ZULEIMA) Reference RangesNormal: <5.7%Prediabetes: 5.7 - 6.4%Diabetes: > 6.5% Lab Interpretation (test code = 82597-1) Abnormal [facility] CenterTROPONIN [id number] 22:58:29* Test Item Value Reference Range Interpretation Comments TROPONIN I (test code = 4696574503) 0.002 ng/mL See_Comment [Automated message] The system [...] of biotin. Lab Interpretation (test code = 03844-4) Normal [facility] CenterN-[facility]MINAL [id number] 22:55:11* Test Item Value Reference Range Interpretation Comme nts NT-proBNP (test code = 7361023922) 29 pg/mL See_Comment [Automated message] The system which generated this result transmitted reference range: <=125. The reference range was not used to interpret this result as normal/abnormal. ZULEIMA (test code = ZULEIMA) Biotin has been reported to cause a negative bias, interpret results relative to patient's use of biotin. Lab Interpretation (test code = 22968-2) Normal [facility] CenterACTIVATED PARTIAL THRMPLAS [id number] 22:51:28* Test Item Value Reference Range Interpretation [...] 30 seconds. Lab Interpretation (test code = 09906-4) Abnormal [facility] CenterCOMP. METABOLIC PANEL (34013)2022-09-03 22:46:28* Test Item Value Reference Range Interpretation Comme nts NA (test code = 2290355543) 137 mmol/L 135-145 K (test code = 0125743820) 5.1 mmol/L 3.5-5 H CL (test code = 9934053082) 103 mmol/L 98-108 CO2 TOTAL (test code = 6193815633) 21 mmol/L 23-31 L AGAP (test code = 0777234829) 2-16 BUN (test code = 3168757328) 18 mg/dL 7-23 GLUCOSE (test code = 1564806029) 360 mg/dL 70-110 H CREATININE (test code = 9825463697) 0.84 mg/dL 0.6-1.25 TOTAL BILI (test code = 7987965689) 0.7 mg/dL 0.1-1.1 CALCIUM (test code = 3223188370) 9.2 mg/dL 8.6-10.6 T PROTEIN (test code = 7730959582) 6.7 g/dL 6.3-8.2 ALBUMIN (test code = 5866740934) 4.3 g/dL 3.5-5 ALK PHOS (test code = 1915704619) 140 U/L 34-122 H ALTv (test code = 1742-6) 727 U/L 5-50 H AST(SGOT) (test code = 2867728863) 348 U/L 13-40 H eGFR (test code = 1263887511) mL/min/1.73m2 ZULEIMA (test code = ZULEIMA) Association [...] imaging tests). Lab Interpretation (test code = 17734-5) Abnormal [facility] CenterLIPASE2022-10-05 22:46:09* Test Item Value Reference Range Interpretation Comme nts LIPASE (test code = 0667787474) 252 U/L 0-220 H Lab Interpretation (test cod e = 18084-9) Abnormal [facility] CenterCBC WITH [id number] 22:35:24* Test Item Value Reference Range Interpretation Comme nts WBC (test code = 6690-2) See_Comment [Automated [employer] ge] The system which generated this result transmitted reference range: 4.20 - 10.70 10*3/?L. The reference range was not used to interpret this result as normal/abnormal. RBC (test code = 789-8) See_Comment [Automated [employer] ge] The system which generated this result [...] 32.6 g/dL 31.2-35 RDW-SD (test code = 54853-6) 50.6 fL 38.5-51.6 RDW-CV (test code = 788-0) 16.0 % 12.1-15.4 H PLT (test code = 777-3) See_Comment [Automated [employer] ge] The system which generated this result transmitted reference range: 150 - 328 10*3/?L. The reference range was not used to interpret this result as normal/abnormal. MPV (test code = 72879-9) 9.1 fL 9.8-13 L NRBC/100 WBC (test code = 4480001487) See_Comment [Automated [employer] ssage] The system which generated this result transmitted reference range: 0.0 - 10.0 /100 WBCs. The reference range was not used to interpret this result as normal/abnormal. NRBC x10^3 (test code = 5240878039) See_Comment [Automated messa ge] The system which generated this result transmitted reference range: 10*3/?L. The reference range was not used to interpret this result as normal/abnormal. GRAN MAT (NEUT) % (test code = 770-8) 74.4 % IMM GRAN % (test code = 8353350045) 1.60 % LYMPH % (test code = 736-9) 17.8 % MONO % (test code = 5905-5) 5.7 % EOS % (test code = 713-8) 0.1 % BASO % (test code = 706-2) 0.4 % GRAN MAT x10^3(ANC) (test code = 7296860962) 6.35 10*3/uL 1.99-6.95 IMM GRAN x10^3 (test code = 3668656409) 0.14 10*3/uL 0-0.06 H LYMPH x10^3 (test code = 731-0) 1.52 10*3/uL 1.09-3.23 MONO x10^3 (test code = 742-7) 0.49 10*3/uL 0.36-1.02 EOS x10^3 (test code = 711-2) 0.06-0.53 L BASO x10^3 (test code = 704-7) 0.03 10*3/uL 0.01-0.09 Lab Interpretation (test code = 78321-5) Abnormal [facility] GLUCOSE (AUTOMATED)2022-04-23 19:01:02* Test Item Value Reference Range Interpretation Comme nts POCT GLU (test code = 2606947139) 174 mg/dL 70-110 H Lab Interpretation (test cod e = 12138-2) Abnormal [facility] GLUCOSE (AUTOMATED)2022-04-23 16:43:23* Test Item Value Reference Range Interpretation Comme nts POCT GLU (test code = 4781593834) 162 mg/dL 70-110 H Lab Interpretation (test cod e = 86957-2) Abnormal [facility] GLUCOSE (AUTOMATED)2022-04-23 15:37:41* Test Item Value Reference Range Interpretation Comme [facility] POCT GLU (test code = 3441114563) 130 mg/dL 70-110 H Lab Interpretation (test cod e = 21715-7) Abnormal [facility]POL[facility] GLUCOSE (AUT[facility]ATED)2022-04-23 12:54:00* Test Item Value Reference Range Interpretation Comme [facility] POCT GLU (test code = 9800433410) 135 mg/dL 70-110 H Lab Interpretation (test cod e = 23222-4) Abnormal [facility] METABOLIC PANEL (NA, K, CL, CO2, GLUCOSE, BUN, CREATININE, CA)2022-04-23 11:38:26* Test Item Value Reference Range Interpretation Comme [facility] NA (test code = 0146363246) 137 mmol/L 135-145 K (test code = 2656370150) 3.2 mmol/L 3.5-5.0 L CL (test code = 4297375579) 110 mmol/L 98-108 H CO2 TOTAL (test code = 5211633821) 19 mmol/L 23-31 L AGAP (test code = 8381240040) 2-16 BUN (test code = 4616709563) <2 7-23 L GLUCOSE (test code = 4791236649) 121 mg/dL 70-110 H CREATININE (test code = 8026561128) 0.67 mg/dL 0.60-1.25 CALCIUM (test code = 0802098525) 7.7 mg/dL 8.6-10.6 L eGFR (test code = 1561532954) mL/min/1.73m2 ZULEIMA (test code = ZULEIMA) Association [...] imaging tests). Lab Interpretation (test code = 14850-7) Abnormal [facility] GLUCOSE (AUTOMATED)2022-04-23 11:35:25* Test Item Value Reference Range Interpretation Comme nts POCT GLU (test code = 4517390958) 135 mg/dL 70-110 H Lab Interpretation (test cod e = 64878-6) Abnormal [facility] CenterMAGNESIUM2022-05-25 11:05:56* Test Item Value Reference Range Interpretation Comme nts MAGNESIUM (test code = 5523079538) 1.7 mg/dL 1.7-2.4 Lab Interpretation (test cod e = 85017-1) Normal [facility] GLUCOSE (AUTOMATED)2022-04-23 09:37:57* Test Item Value Reference Range Interpretation Comme nts POCT GLU (test code = 7084046534) 107 mg/dL 70-110 Lab Interpretation (test cod e = 42169-0) Normal [facility] GLUCOSE (AUTOMATED)2022-04-23 07:22:08* Test Item Value Reference Range Interpretation Comme nts POCT GLU (test code = 0204134649) 146 mg/dL 70-110 H Lab Interpretation (test cod e = 91403-6) Abnormal [facility] GLUCOSE (AUTOMATED)2022-04-23 05:29:09* Test Item Value Reference Range Interpretation Comme nts POCT GLU (test code = 9664379832) 142 mg/dL 70-110 H Lab Interpretation (test cod e = 01314-8) Abnormal [facility] GLUCOSE (AUTOMATED)2022-04-23 04:10:18* Test Item Value Reference Range Interpretation Comme [facility] POCT GLU (test code = 7094117566) 148 mg/dL 70-110 H Lab Interpretation (test cod e = 08106-6) Abnormal [facility] GLUCOSE (AUTOMATED)2022-04-23 02:27:55* Test Item Value Reference Range Interpretation Comme [facility] POCT GLU (test code = 0123853054) 160 mg/dL 70-110 H Lab Interpretation (test cod e = 53586-1) Abnormal [facility] Metabolic Panel (Na, K, Cl, CO2, Glucose, BUN, Creatinine, Ca)2022-04-23 01:58:18* Test Item Value Reference Range Interpretation Comme [facility] NA (test code = 1394428132) 137 mmol/L 135-145 K (test code = 3524794342) 3.6 mmol/L 3.5-5.0 CL (test code = 8428943365) 109 mmol/L 98-108 H CO2 TOTAL (test code = 9751454280) 17 mmol/L 23-31 L AGAP (test code = 8335314718) 2-16 BUN (test code = 7553709935) <2 7-23 L GLUCOSE (test code = 6915295571) 162 mg/dL 70-110 H CREATININE (test code = 4778750713) 0.62 mg/dL 0.60-1.25 CALCIUM (test code = 5317297596) 8.2 mg/dL 8.6-10.6 L eGFR (test code = 0960210003) mL/min/1.73m2 ZULEIMA (test code = ZULEIMA) Association [...] imaging tests). Lab Interpretation (test code = 64928-9) Abnormal [facility] GLUCOSE (AUTOMATED)2022-04-23 01:21:32* Test Item Value Reference Range Interpretation Comme nts POCT GLU (test code = 7253236274) 142 mg/dL 70-110 H Lab Interpretation (test cod e = 16709-3) Abnormal [facility] GLUCOSE (AUTOMATED)2022-04-23 00:05:03* Test Item Value Reference Range Interpretation Comme nts POCT GLU (test code = 4468726856) 148 mg/dL 70-110 H Lab Interpretation (test cod e = 70581-0) Abnormal [facility] GLUCOSE (AUTOMATED)2022-04-22 23:06:57* Test Item Value Reference Range Interpretation Comme nts POCT GLU (test code = 9226906405) 144 mg/dL 70-110 H Lab Interpretation (test cod e = 34733-0) Abnormal [facility] GLUCOSE (AUTOMATED)2022-04-22 22:12:45* Test Item Value Reference Range Interpretation Comme nts POCT GLU (test code = 0370067297) 145 mg/dL 70-110 H Lab Interpretation (test cod e = 89606-7) Abnormal [facility] CenterTR[facility] [id number] 21:43:14* Test Item Value Reference Range Interpretation Comments TROPONIN I (test code = 2800460508) 0.003 ng/mL See_Comment [Automated message] The system [...] of biotin. Lab Interpretation (test code = 65488-6) Normal [facility] Metabolic Panel (Na, K, Cl, CO2, Glucose, BUN, Creatinine, Ca)2022-04-22 21:31:09* Test Item Value Reference Range Interpretation Comme nts NA (test code = 7640897199) 134 mmol/L 135-145 L K (test code = 2748847710) 3.9 mmol/L 3.5-5.0 CL (test code = 4739451295) 108 mmol/L 98-108 CO2 TOTAL (test code = 1865732937) 15 mmol/L 23-31 L AGAP (test code = 2381934926) 2-16 BUN (test code = 8649682858) 2 mg/dL 7-23 L GLUCOSE (test code = 4847144219) 170 mg/dL 70-110 H CREATININE (test code = 9486303119) 0.62 mg/dL 0.60-1.25 CALCIUM (test code = 9669259415) 8.3 mg/dL 8.6-10.6 L eGFR (test code = 8697581670) mL/min/1.73m2 ZULEIMA (test code = ZULEIMA) Association [...] imaging tests). Lab Interpretation (test code = 49285-1) Abnormal [facility] GLUCOSE (AUTOMATED)2022-04-22 21:08:08* Test Item Value Reference Range Interpretation Comme nts POCT GLU (test code = 0577188792) 156 mg/dL 70-110 H Lab Interpretation (test cod e = 02747-9) Abnormal [facility] GLUCOSE (AUTOMATED)2022-04-22 19:48:36* Test Item Value Reference Range Interpretation Comme nts POCT GLU (test code = 4100063326) 154 mg/dL 70-110 H Lab Interpretation (test cod e = 04919-5) Abnormal [facility] GLUCOSE (AUTOMATED)2022-04-22 18:44:52* Test Item Value Reference Range Interpretation Comme nts POCT GLU (test code = 4447385880) 146 mg/dL 70-110 H Lab Interpretation (test cod e = 26817-6) Abnormal [facility] GLUCOSE (AUTOMATED)2022-04-22 17:28:16* Test Item Value Reference Range Interpretation Comme nts POCT GLU (test code = 8516522503) 148 mg/dL 70-110 H Lab Interpretation (test cod e = 05657-6) [facility] (Na, K, Cl, CO2, Glucose, BUN, Creatinine, Ca)2022-04-22 16:11:05* Test Item Value Reference Range Interpretation Comme nts NA (test code = 2328329805) 134 mmol/L 135-145 L K (test code = 8376376526) 3.8 mmol/L 3.5-5.0 CL (test code = 9686871294) 106 mmol/L 98-108 CO2 TOTAL (test code = 6617144270) 15 mmol/L 23-31 L AGAP (test code = 5331267044) 2-16 BUN (test code = 6702165368) 4 mg/dL 7-23 L GLUCOSE (test code = 9917422701) 179 mg/dL 70-110 H CREATININE (test code = 2055719741) 0.68 mg/dL 0.60-1.25 CALCIUM (test code = 0530963021) 8.5 mg/dL 8.6-10.6 L eGFR (test code = 8066546839) mL/min/1.73m2 ZULEIMA (test code = ZULEIMA) Association [...] imaging tests). Lab Interpretation (test code = 33686-6) Abnormal [facility]2022-[facility]-22 16:10:40* Test Item Value Reference Range Interpretation Comme [facility] POCT GLU (test code = 9004794364) 157 mg/dL 70-110 H Lab Interpretation (test cod e = 99491-3) Abnormal [facility] WITH [id number] 15:48:43* Test Item Value Reference Range Interpretation Comme [facility] WBC (test code = 6690-2) See_Comment [Automated [employer]] The system which generated this result transmitted reference range: 4.20 - 10.70 10*3/?L. The reference range was not used to interpret this result as normal/abnormal. RBC (test code = 789-8) See_Comment [Automated [employer]] The system which generated this result transmitted [...] 33.7 g/dL 31.2-35.0 RDW-SD (test code = 93908-0) 38.5 fL 38.5-51.6 RDW-CV (test code = 788-0) 12.4 % 12.1-15.4 PLT (test code = 777-3) See_Comment [Automated [employer]] The system which generated this result transmitted reference range: 150 - 328 10*3/?L. The reference range was not used to interpret this result as normal/abnormal. MPV (test code = 83495-9) 9.2 fL 9.8-13.0 L NRBC/100 WBC (test code = 0688659505) See_Comment [Automated me ssage] The system which generated this result transmitted reference range: 0.0 - 10.0 /100 WBCs. The reference range was not used to interpret this result as normal/abnormal. NRBC x10^3 (test code = 1959627463) <0.01 See_Comment [Automated messa ge] The system which generated this result transmitted reference range: 10*3/?L. The reference range was not used to interpret this result as normal/abnormal. GRAN MAT (NEUT) % (test code = 770-8) 69.0 % IMM GRAN % (test code = 4877251565) 0.40 % LYMPH % (test code = 736-9) 18.9 % MONO % (test code = 5905-5) 9.1 % EOS % (test code = 713-8) 2.0 % BASO % (test code = 706-2) 0.6 % GRAN MAT x10^3(ANC) (test code = 2276028260) 6.20 10*3/uL 1.99-6.95 IMM GRAN x10^3 (test code = 8259839779) 0.04 10*3/uL 0.00-0.06 LYMPH x10^3 (test code = 731-0) 1.70 10*3/uL 1.09-3.23 MONO x10^3 (test code = 742-7) 0.82 10*3/uL 0.36-1.02 EOS x10^3 (test code = 711-2) 0.18 10*3/uL 0.06-0.53 BASO x10^3 (test code = 704-7) 0.05 10*3/uL 0.01-0.09 Lab Interpretation (test code = 92277-5) Abnormal [facility] GLUCOSE (AUTOMATED)2022-04-22 14:27:15* Test Item Value Reference Range Interpretation Comme [facility] POCT GLU (test code = 1878378991) 150 mg/dL 70-110 H Lab Interpretation (test cod e = 34860-8) Abnormal [facility] GLUCOSE (AUTOMATED)2022-04-22 13:41:45* Test Item Value Reference Range Interpretation Comme nts POCT GLU (test code = 0267428882) 149 mg/dL 70-110 H Lab Interpretation (test cod e = 46424-6) Abnormal [facility] GLUCOSE (AUTOMATED)2022-04-22 12:29:18* Test Item Value Reference Range Interpretation Comme [facility] POCT GLU (test code = 9996532577) 174 mg/dL 70-110 H Lab Interpretation (test cod e = 58011-2) Abnormal [facility] GLUCOSE (AUTOMATED)2022-04-22 11:33:37* Test Item Value Reference Range Interpretation Comme [facility] POCT GLU (test code = 5215766065) 159 mg/dL 70-110 H Lab Interpretation (test cod e = 93349-5) Abnormal [facility] Metabolic Panel (Na, K, Cl, CO2, Glucose, BUN, Creatinine, Ca)2022-04-22 11:30:20* Test Item Value Reference Range Interpretation Comme [facility] NA (test code = 9113406897) 133 mmol/L 135-145 L K (test code = 2009952517) 3.3 mmol/L 3.5-5.0 L CL (test code = 0947661069) 104 mmol/L 98-108 CO2 TOTAL (test code = 2423627145) 14 mmol/L 23-31 L AGAP (test code = 7523890799) 2-16 BUN (test code = 3760261433) 4 mg/dL 7-23 L GLUCOSE (test code = 3018898531) 172 mg/dL 70-110 H CREATININE (test code = 6633427359) 0.77 mg/dL 0.60-1.25 CALCIUM (test code = 4233594042) 8.6 mg/dL 8.6-10.6 eGFR (test code = 1403057999) mL/min/1.73m2 ZULEIMA (test code = ZULEIMA) Association [...] imaging tests). Lab Interpretation (test code = 39287-4) Abnormal [facility] GLUCOSE (AUTOMATED)2022-04-22 10:56:08* Test Item Value Reference Range Interpretation Comme nts POCT GLU (test code = 2448640374) 157 mg/dL 70-110 H Lab Interpretation (test cod e = 61123-4) Abnormal [facility] GLUCOSE (AUTOMATED)2022-04-22 10:56:03* Test Item Value Reference Range Interpretation Comme nts POCT GLU (test code = 7196148894) 96 mg/dL 70-110 Lab Interpretation (test cod e = 61828-0) Normal [facility] GLUCOSE (AUTOMATED)2022-04-22 09:35:36* Test Item Value Reference Range Interpretation Comme nts POCT GLU (test code = 5414113836) 158 mg/dL 70-110 H Lab Interpretation (test cod e = 27693-7) Abnormal [facility] GLUCOSE (AUTOMATED)2022-04-22 08:36:40* Test Item Value Reference Range Interpretation Comme nts POCT GLU (test code = 7555642811) 166 mg/dL 70-110 H Lab Interpretation (test cod e = 86453-8) Abnormal [facility] Metabolic Panel (Na, K, Cl, CO2, Glucose, BUN, Creatinine, Ca)2022-04-22 08:00:14* Test Item Value Reference Range Interpretation Comme nts NA (test code = 6128541947) 133 mmol/L 135-145 L K (test code = 9670054698) 3.6 mmol/L 3.5-5.0 CL (test code = 7793512144) 103 mmol/L 98-108 CO2 TOTAL (test code = 0698834387) 14 mmol/L 23-31 L AGAP (test code = 1376307293) 2-16 BUN (test code = 5754978186) 5 mg/dL 7-23 L GLUCOSE (test code = 0281501479) 172 mg/dL 70-110 H CREATININE (test code = 6409650484) 0.85 mg/dL 0.60-1.25 CALCIUM (test code = 7038145882) 9.0 mg/dL 8.6-10.6 eGFR (test code = 9988310494) mL/min/1.73m2 ZULEIMA (test code = ZULEIMA) Association [...] imaging tests). Lab Interpretation (test code = 54509-4) Abnormal [facility] CenterOsmolality Nxxsw1407-15-44 07:46:08* Test Item Value Reference Range Interpretation Comme nts OSMOLALITY (test code = 2692-2) See_Comment [Automated [employer]] The system which generated this result transmitted reference range: 278 - 305 mOsm/kg. The reference range was not used to interpret this result as normal/abnormal. Lab Interpretation (test code = 40921-2) Normal [facility] GLUCOSE (AUTOMATED)2022-04-22 07:36:29* Test Item Value Reference Range Interpretation Comme nts POCT GLU (test code = 7222893344) 144 mg/dL 70-110 H Lab Interpretation (test cod e = 17790-6) Abnormal [facility] GLUCOSE (AUTOMATED)2022-04-22 07:36:29* Test Item Value Reference Range Interpretation Comme nts POCT GLU (test code = 4838333086) 168 mg/dL 70-110 H Lab Interpretation (test cod e = 86694-3) Abnormal [facility] CenterBetahydroxy-Fkbcikub1834-60-05 07:26:24* Test Item Value Reference Range Interpretation Comme nts BOH (test code = 3368347972) 3.1 mmol/L ZULEIMA (test code = ZULEIMA) Normal Ranges: ? ? Nonfasting ? Less than 0.1 mmol/L ? ? Overnight Fast ? ? ? Less than 0.4 mmol/L ? ? Fasting (1-2 weeks) ?6-8 mmol/L Test developed and characteristics determined by [facility] Laboratory Services. [facility] GLUCOSE (AUTOMATED)2022-04-22 06:32:35* Test Item Value Reference Range Interpretation Comme nts POCT GLU (test code = 4396955837) 155 mg/dL 70-110 H Lab Interpretation (test cod e = 63587-3) [facility]normal [facility] (Na, K, Cl, CO2, Glucose, BUN, Creatinine, Ca)2022-04-22 06:02:22* Test Item Value Reference Range Interpretation Comme nts NA (test code = 1520249046) 134 mmol/L 135-145 L K (test code = 1457339943) 3.6 mmol/L 3.5-5.0 CL (test code = 1617357924) 104 mmol/L 98-108 CO2 TOTAL (test code = 5926412475) 11 mmol/L 23-31 L AGAP (test code = 8169665833) 2-16 H BUN (test code = 1307472907) 7 mg/dL 7-23 GLUCOSE (test code = 6360394467) 177 mg/dL 70-110 H CREATININE (test code = 8742409388) 0.81 mg/dL 0.60-1.25 CALCIUM (test code = 0966050316) 9.0 mg/dL 8.6-10.6 eGFR (test code = 1373001232) mL/min/1.73m2 ZULEIMA (test code = ZULEIMA) Association [...] imaging tests). Lab Interpretation (test code = 29115-3) Abnormal [facility] GLUCOSE (AUTOMATED)2022-04-22 04:35:23* Test Item Value Reference Range Interpretation Comme nts POCT GLU (test code = 8119784021) 154 mg/dL 70-110 H Lab Interpretation (test cod e = 47727-3) Abnormal [facility] GLUCOSE (AUTOMATED)2022-04-22 03:44:33* Test Item Value Reference Range Interpretation Comme nts POCT GLU (test code = 6589142666) 166 mg/dL 70-110 H Lab Interpretation (test cod e = 83434-7) Abnormal [facility] CenterLaaric Acid Whole Nqpxs4354-58-33 03:11:51* Test Item Value Reference Range Interpretation Comme nts LACTIC ACID (test code = 3442158237) 2.04 mmol/L 0.50-2.20 Lab Interpretation (test cod e = 38404-2) Normal [facility] Metabolic Panel (Na, K, Cl, CO2, Glucose, BUN, Creatinine, Ca)2022-04-22 02:17:22* Test Item Value Reference Range Interpretation Comme nts NA (test code = 8960863097) 134 mmol/L 135-145 L K (test code = 0864762853) 4.3 mmol/L 3.5-5.0 CL (test code = 7537164108) 101 mmol/L 98-108 CO2 TOTAL (test code = 4584480346) 10 mmol/L 23-31 L AGAP (test code = 7064562718) 2-16 H BUN (test code = 5204559085) 8 mg/dL 7-23 GLUCOSE (test code = 0171807255) 128 mg/dL 70-110 H CREATININE (test code = 6500754670) 0.92 mg/dL 0.60-1.25 CALCIUM (test code = 0571010105) 9.2 mg/dL 8.6-10.6 eGFR (test code = 0079180822) mL/min/1.73m2 ZULEIMA (test code = ZULEIMA) Association [...] imaging tests). Lab Interpretation (test code = 87439-1) Abnormal [facility] GLUCOSE (AUTOMATED)2022-04-22 02:16:37* Test Item Value Reference Range Interpretation Comme [facility] POCT GLU (test code = 4532796515) 132 mg/dL 70-110 H Lab Interpretation (test cod e = 15669-1) Abnormal [facility] GLUCOSE (AUTOMATED)2022-04-22 01:19:28* Test Item Value Reference Range Interpretation Comme [facility] POCT GLU (test code = 5179436661) 142 mg/dL 70-110 H Notified Provide r Lab Interpretation (test code = 75242-9) Abnormal [facility] CenterGlycosylated Hemoglobin (A1C)2022-04-22 01:01:17* Test Item Value Reference Range Interpretation Comme [facility] HGB A1C (test code = 4548-4) 10.5 % 4.0-5.7 H ZULEIMA (test code = ZULEIMA) Reference RangesNormal: <5.7%Prediabetes: 5.7 - 6.4%Diabetes: > 6.5% Lab Interpretation (test code = 98682-1) Abnormal [facility] CenterMagnesium Yxjha5711-49-68 00:42:52* Test Item Value Reference Range Interpretation Comme nts MAGNESIUM (test code = 6196119542) 1.9 mg/dL 1.7-2.4 Lab Interpretation (test cod e = 29517-0) Normal [facility] CenterPhosphorus Qxzfx9846-20-18 00:42:32* Test Item Value Reference Range Interpretation Comme nts PHOSPHORUS (test code = 5036432755) 5.1 mg/dL 2.5-5.0 H Lab Interpretation (test cod e = 54420-5) Abnormal [facility] CenterAC PANEL 21 + LACTIC [id number] 00:14:12* Test Item Value Reference Range Interpretation Comme nts PH (test code = 4790390676) 7.32-7.42 L PCO2 SAKINA (test code = 6406265272) See_Comment L [Automated messa ge] The system which generated this result transmitted reference range: 41 - 51 mmHg. The reference range was not used to interpret this result as normal/abnormal. PO2 SAKINA (test code = 5541223504) See_Comment H [Automated messa ge] The system which generated this result transmitted reference range: 25 - 40 mmHg. The reference range was not used to interpret this result as normal/abnormal. HCO3 SAKINA (test code = 5124899608) See_Comment L [Automated messa ge] The system which generated this result transmitted reference range: 24 - 28 mEq/L. The reference range was not used to interpret this result as normal/abnormal. AC VBE(BEAKER) (test code = [id number]) mEq/L THB SAKINA (test code = [id number]) 16.5 g/dL 13.5-18.0 %O2HB SAKINA (test code = 1446257610) 84.9 % 52.0-63.0 H %COHB SAKINA (test code = 7998210247) 0.3 % 0.0-1.5 %METHB SAKINA (test code = 0361620019) 0.1 % 0.4-1.5 L VOL%O2 SAKINA (test code = 7588206177) 19.6 % 6.0-12.0 H NA (test code = 0993777616) 134 mmol/L 135-145 L K+ (test code = 7229700493) 3.7 mmol/L 3.5-5.0 AC CA IONZ (test code = 9346137325) 5.30 mg/dL 4.50-5.30 GLUCOSE (test code = 7220024116) 155 mg/dL 70-110 H LACTIC ACID (test code = [id number]) 2.34 mmol/L 0.50-2.20 H Lab Interpretation (test code = 10580-4) Abnormal [facility] CenterTROPONIN [id number] 23:48:43* Test Item Value Reference Range Interpretation Comments TROPONIN I (test code = 6455429354) 0.002 ng/mL See_Comment [Automated message] The system [...] of biotin. Lab Interpretation (test code = 94887-1) Normal [facility] CenterN-TERMINAL MUL-QLI0094-24-23 23:45:26* Test Item Value Reference Range Interpretation Comme nts NT-proBNP (test code = 0049572239) 38 pg/mL See_Comment [Automated message] The system which generated this result transmitted reference range: <=125. The reference range was not used to interpret this result as normal/abnormal. ZULEIMA (test code = ZULEIMA) Biotin has been reported to cause a negative bias, interpret results relative to patient's use of biotin. Lab Interpretation (test code = 93185-4) Normal [facility] CenterCOMP. METABOLIC PANEL (04296)2022-04-21 23:45:16* Test Item Value Reference Range Interpretation Comme nts NA (test code = 1907914069) 134 mmol/L 135-145 L K (test code = 4388089061) 4.3 mmol/L 3.5-5.0 CL (test code = 9387452712) 100 mmol/L 98-108 CO2 TOTAL (test code = 7634938324) 8 mmol/L 23-31 L AGAP (test code = 9199356866) 2-16 H BUN (test code = 1150487930) 8 mg/dL 7-23 GLUCOSE (test code = 7414134820) 169 mg/dL 70-110 H CREATININE (test code = 3935095182) 0.93 mg/dL 0.60-1.25 TOTAL BILI (test code = 9847067499) 1.1 mg/dL 0.1-1.1 CALCIUM (test code = 5909489591) 9.8 mg/dL 8.6-10.6 T PROTEIN (test code = 7075762617) 8.2 g/dL 6.3-8.2 ALBUMIN (test code = 0915168250) 5.0 g/dL 3.5-5.0 ALK PHOS (test code = 6054749357) 106 U/L 34-122 ALTv (test code = 1742-6) 64 U/L 5-50 H AST(SGOT) (test code = 4221546760) 47 U/L 13-40 H eGFR (test code = 8982017560) mL/min/1.73m2 ZULEIMA (test code = ZULEIMA) Association [...] imaging tests). Lab Interpretation (test code = 72741-1) Abnormal [facility] CenterLIPASE2022-05-23 23:37:42* Test Item Value Reference Range Interpretation Comme [facility] LIPASE (test code = 8071587180) 106 U/L 0-220 Lab Interpretation (test cod e = 33084-7) Normal [facility] CenterPROTHROMBIN TIME / [id number] 23:30:44* Test Item Value Reference Range Interpretation Comme nts PROTIME PATIENT (test code = 5964-2) See_Comment [Automated [employer]] The system which generated this result transmitted reference range: 12.0 - 14.7 Seconds. The reference range was not used to interpret this result as normal/abnormal. INR (test code = 6301-6) Normal INR <1.1; Warfarin Therapeutic range 2.0 to 3.0 or 2.5 to 3.5, depending upon the indications. Lab Interpretation (test code = 98794-3) Normal [facility] CenterCBC WITH [id number] 23:22:44* Test Item Value Reference Range Interpretation Comme nts WBC (test code = 6690-2) See_Comment H [Automated [employer]] The system which generated this result transmitted reference range: 4.20 - 10.70 10*3/?L. The reference range was not used to interpret this result as normal/abnormal. RBC (test code = 789-8) See_Comment H [Automated [employer]] The system which generated this result transmitted [...] 33.4 g/dL 31.2-35.0 RDW-SD (test code = 70722-5) 38.3 fL 38.5-51.6 L RDW-CV (test code = 788-0) 12.3 % 12.1-15.4 PLT (test code = 777-3) See_Comment H [Automated messa ge] The system which generated this result transmitted reference range: 150 - 328 10*3/?L. The reference range was not used to interpret this result as normal/abnormal. MPV (test code = 70038-2) 9.2 fL 9.8-13.0 L NRBC/100 WBC (test code = 4930499224) See_Comment [Automated [employer]age] The system which generated this result transmitted reference range: 0.0 - 10.0 /100 WBCs. The reference range was not used to interpret this result as normal/abnormal. NRBC x10^3 (test code = 2652100053) <0.01 See_Comment [Automated [employer]] The system which generated this result transmitted reference range: 10*3/?L. The reference range was not used to interpret this result as normal/abnormal. GRAN MAT (NEUT) % (test code = 770-8) 62.0 % IMM GRAN % (test code = 8641255103) 0.30 % LYMPH % (test code = 736-9) 29.7 % MONO % (test code = 5905-5) 6.5 % EOS % (test code = 713-8) 0.9 % BASO % (test code = 706-2) 0.6 % GRAN MAT x10^3(ANC) (test code = 2502500139) 7.25 10*3/uL 1.99-6.95 H IMM GRAN x10^3 (test code = 2730780848) 0.04 10*3/uL 0.00-0.06 LYMPH x10^3 (test code = 731-0) 3.48 10*3/uL 1.09-3.23 H MONO x10^3 (test code = 742-7) 0.76 10*3/uL 0.36-1.02 EOS x10^3 (test code = 711-2) 0.11 10*3/uL 0.06-0.53 BASO x10^3 (test code = 704-7) 0.07 10*3/uL 0.01-0.09 Lab Interpretation (test code = 59018-5) Abnormal [facility] CenterALBUMIN/CREATININE RATIO, URINE, RANDOM 2022-03-11 01:57:25* Test Item Value Reference Range Interpretation Comme nts CREATININE, URINE, RANDOM (test code = 2072) 61.2 MG/DL NOT ESTAB ALBUMIN, URINE, RANDOM (test code = 11202) <0.2 MG/DL NOT ESTAB CALC ALBUMIN/CREAT, RND (test code = 47862) <3 MG/G <30 Note: Albumin/Creatinine ratio reference interval reflects ADA and NKF guidelines. COMPREHENSIVE METABOLIC [id number] 00:29:28* Test Item Value Reference Range Interpretation Comme nts GLUCOSE (test code = 2217) 413 MG/DL 70-99 H BUN (test code = 8) 14 MG/DL 6-20 CREATININE (test code = 2214) 0.81 MG/DL 0.80-1.40 eGFR (2020 CKD-EPI) (test code = 50174) 107 ML/MIN/1.73 >60 CALC BUN/CREAT (test code = 2235) 17 RATIO 6-28 SODIUM (test code = 2231) 138 MEQ/L 133-146 POTASSIUM (test code = 2228) 4.2 MEQ/L 3.5-5.4 CHLORIDE (test code = 2215) 96 MEQ/L 95-107 CARBON DIOXIDE (test code = 2206) 24 MEQ/L 19-31 CALCIUM (test code = 2209) 9.8 MG/DL 8.5-10.5 PROTEIN, TOTAL (test code = 2228) 7.1 G/DL 6.1-8.3 ALBUMIN (test code = 2200) 4.2 G/DL 3.5-5.2 CALC GLOBULIN (test code = 2240) 2.9 G/DL 1.9-3.7 CALC A/G RATIO (test code = 2234) 1.4 RATIO 1.0-2.6 BILIRUBIN, TOTAL (test code = 2207) 0.5 MG/DL See_Comment [Automated me ssage] The system which generated this result transmitted reference range: <=1.2. The reference range was not used to interpret this result as normal/abnormal. ALKALINE PHOSPHATASE (test code = 2204) 82 U/L 40-118 AST (test code = 2218) 26 U/L 9-50 ALT (test code = 2219) 54 U/L 5-50 H LIPID [id number] 00:29:28* Test Item Value Reference Range Interpretation [...] SPECIMENS. FOR MOREINFORMATION, SEE CLIENT ANNOUNCEMENT AT [email or web address] RISK RATIO LDL/HDL (test code = 2238) 2.33 RATIO <3.55 HEMOGLOBIN [id number] 03:12:57* Test Item Value Reference Range Interpretation Comme nts HEMOGLOBIN A1c (test code = 69228) 11.3 % 4.2-5.6 H [employer] GUIDELINES FOR HGB A1C: [...] CONSULTATION. UNLESS OTHERWISE INDICATED, ALL TESTING PERFORMED [facility] [employer] [address] [place] [address] HAND CANDLE MOLDER: MELECIO GREEN M.D. CLIA NUMBER [id number] [facility] [place]. [id number] COMPREHENSIVE METABOLIC [id number] 04:51:05* Test Item Value Reference Range Interpretation Comme nts GLUCOSE (test code = 2217) 299 MG/DL 70-99 H BUN (test code = 220) 15 MG/DL 6-20 CREATININE (test code = 2214) 0.67 MG/DL 0.80-1.40 L eGFR (2020 CKD-EPI) (test code = 30542) 114 ML/MIN/1.73 >60 CALC BUN/CREAT (test code = 2235) 22 RATIO 6-28 SODIUM (test code = 223) 143 MEQ/L 133-146 POTASSIUM (test code = 2228) 4.1 MEQ/L 3.5-5.4 CHLORIDE (test code = 2215) 105 MEQ/L 95-107 CARBON DIOXIDE (test code = 2206) 26 MEQ/L 19-31 CALCIUM (test code = 220) 9.3 MG/DL 8.5-10.5 PROTEIN, TOTAL (test code = 222) 6.5 G/DL 6.1-8.3 ALBUMIN (test code = 2201) 4.0 G/DL 3.5-5.2 CALC GLOBULIN (test code = 2240) 2.5 G/DL 1.9-3.7 CALC A/G RATIO (test code = 2234) 1.6 RATIO 1.0-2.6 BILIRUBIN, TOTAL (test code = 220) 0.5 MG/DL See_Comment [Automated me ssage] The system which generated this result transmitted reference range: <=1.2. The reference range was not used to interpret this result as normal/abnormal. ALKALINE PHOSPHATASE (test code = 2204) 111 U/L 40-118 AST (test code = 2218) 33 U/L 9-50 ALT (test code = 2219) 76 U/L 5-50 H LIPID [id number] 04:51:05* Test Item Value Reference Range Interpretation Comme nts CHOLESTEROL (test code = 2210) 213 MG/DL <200 H TRIGLYCERIDES (test code = 2232) 119 MG/DL <150 HDL CHOLESTEROL (test code = 2220) 77 MG/DL >39 CALC LDL CHOL (test code = 2237) 113 MG/DL <100 H NOTE: CALCULATED LDL IS BASED ON DANIEL-BREWER METHOD WHICHINCLUDES ADJUSTABLE TRIGLYCERIDE:VLDL CHOLESTEROL RATIO.THIS FACTOR VARIES BY MEASURED TRIGLYCERIDE AND NON-HDLCHOLESTEROL CONCENTRATIONS WITH INCREASED CALCULATED LDL SEENIN HIGHER TRIGLYCERIDE OR LOWER NON-HDL SPECIMENS. FOR MOREINFORMATION, SEE CLIENT ANNOUNCEMENT AT [email or web address] /[email or web address] RISK RATIO LDL/HDL (test code = 2238) 1.47 RATIO <3.55 UNLESS OTHERW ISE INDICATED, ALL TESTING PERFORMED [facility] [employer] [address] [place] [address] HAND CANDLE MOLDER: MELECIO GREEN M.D. [place] NUMBER [id number] [place]. [id number] HEMOGLOBIN [id number] 02:53:45* Test Item Value Reference Range Interpretation Comme nts HEMOGLOBIN A1c (test code = 79722) 10.6 % 4.2-5.6 H [employer] GUIDELINES FOR HGB A1C: [...] LABORATORY CONSULTATION. Notes Date/Time Note Provider Source 2023-12-15 15:16:00 [id number] mkrQiMOs0FQQNcroJAbSDhltzZy3/ 68kWXgs/Msa/vti/04lEqp/cPQn7415-08-54E96:16:06254 6-0120 [facility] PATIENT NAME: DANIEL LEHMAN ADMIT DATE: 11/10/23ACCOUNT NO: [id number] ROOM NO: V.2086 AGE: 53 REPORT TYPE: 360 - QUERY RESPONSE DOCUMENT SEX: M DATE OF : 72ADMITTING PHYSICIAN:Jeremias Ibarra MD ATTENDING PHYSICIAN:Jeremias Ibarra MD Provider Query QUERY TEXT: Condition General 360MD Query related questions should be directed to: [phone] Based on the information in the medical record can you clarify type of pneumonia treated on this admission (i.e. aspiration pneumonia, pseudomonas pneumonia, community acquired pneumonia, unknown or another appropriate option)? The patient's Clinical Indicators include:#PneumoniaSuspect community acquired pneumoniaChest x-ray shows patchy left intersitial infiltrate.Cannot rule out multidrug-resistant organisms such as Pseudomonas given pt's recent hospitalization 1 week ago. Cover for Pseudomonas with IV Zosyn 3.375 mg every 8 hours. DC Summary 647023 Possible aspriation pneumonitis vs pulmonary edema. Pulmonology pns [id number] Options provided:-- Respond - Create new note now-- Dismiss - Not applicable / Not valid-- Dismiss - Clinically unable to determine / Unknown-- Assign to another provider QUERY RESPONSE: Aspiration pneumonia Query created by: Sydnee Rangel on 12/12/2023 9:46 AM at 1516 PATIENT NAME: DANIEL LEHMAN noteV.[id number] for patient rpttUBAQZEHREZGJTF2169-05-34O17:18:15 [facility] 2023-12-12 09:03:00 [id number]/H5 2JvMFOMFm7YoYflYWVsEIqtVGu672 xmDkruj3Q11oMS7yMxbt7PAAYMs0902-61-51P61:03:98920 3-0041 [facility] PATIENT NAME: DANIEL LEHMAN ADMIT DATE: 11/10/23ACCOUNT NO: [id number] ROOM NO: V.2086 AGE: 53 REPORT TYPE: 360 - QUERY RESPONSE DOCUMENT SEX: M DATE OF : [birth year]ADMITTING PHYSICIAN:Jeremias Ibarra MD ATTENDING PHYSICIAN:Jeremias Ibarra MD Provider Query QUERY TEXT: POA Indicator 360MD Query related questions should be directed to: [phone] Please indicate if the diagnosis of Sepsis was present on admission? The patient's Clinical Indicators include:The patient has severe sepsis with septic shock. pneumonia. Coding query response [id number] provided:-- Yes-- No-- W-- Other - I will add my own diagnosis-- Dismiss - Not applicable / Not valid-- Dismiss - Clinically unable to determine / Unknown-- Assign to another provider QUERY RESPONSE: Sepsis ruled out Query created by: Sydnee Rangel on 2023 9:52 AM at 0903 PATIENT NAME: DANIEL LEHMAN noteV.[id number] for patient lyrcTGHCRHQVGTOSNV8346-26-28B77:04:02 [facility] 2023-11-19 15:30:00 [id number]+1Wj2L+ RajRwJRAA/+En5vZdnyB2pzlMmCDe Qs4Z1Q7M9cCrhoPPRaySgih6bfJ5043-83-02N85:30:53505 -0153 [facility] PATIENT NAME: DANIEL LEHMAN ADMIT DATE: 11/10/23ACCOUNT NO: [id number] ROOM NO: V.2086 AGE: 52 REPORT TYPE: 360 - QUERY RESPONSE DOCUMENT SEX: M DATE OF : [birth year]ADMITTING PHYSICIAN:Jeremias Ibarra MD ATTENDING PHYSICIAN:Jeremias Ibarra MD Provider Query QUERY TEXT: Clarification Infectious Status 360MD Query related questions should be directed to:[facility] Coding Query Helpline Based on your clinical judgment, please clarify the condition(s) that represent(s) the clinical indicators listed below. The following definitions are provided based on industry literature and in collaboration with [facility] Clinical Services Group for your reference only:--Localized Infection - An infection that affects only one organ or body part (e.g., UTI, Pneumonia)--Bacteremia - Nonspecific laboratory finding of bacteria in the blood--Sepsis - A presumed or confirmed systemic response to infectious process with >2 clinical indicators such as: Temperature >38.3C or <36.0C, tachycardia, > 20 respiratory rate, WBC >12,000 or < 4,000 or > 10% bands--Severe Sepsis - Sepsis with additional clinical indicators such as Organ failure with any of the following: systolic BP < 90 or MAP < 65 or SBP decrease more 40 mm Hg from last recorded SBP considered normal for patient, Creatinine > 2.0, urine output < 0.5 ml/kg/hour for 2 hours, Bilirubin > 2 mg/dL, platelet count < 100,000, INR > 1.5, PTT > 60 sec, lactate > 2 mmol/L--Septic Shock - Severe Sepsis with Lactic acid > 4 mmol/L or persistent hypotension The patient's Clinical Indicators include:Hospitalist Discharge SummaryREPORT#:[id number]-Hospital course:# Acute respiratory failure with hypoxemiasecondary to pneumoniaAddendum 1: 11/10/23 1645 by Jeremias Ibarra MD#Shock rule out septic shock, remains on Levophed drip-Critical Care Progress Note 11/11/2023 (1)d Last 24 Hrs:CeftriaxoneOptions provided:-- Sepsis, Please identify the causative organism if known.-- Severe Sepsis, Please identify the causative organism if known.-- Severe Sepsis with septic shock, Please identify the causative organism if known.-- Localized infection, Please specify the infection and causative organism if known.-- Other - I will add my own diagnosis-- Dismiss - Not applicable / Not valid-- Dismiss - Clinically unable to determine / Unknown-- Assign to another provider QUERY RESPONSE: The patient has severe sepsis with septic shock. pneumonia Query created by: LEXY ALAN on 11/19/2023 12:57 AM at 1530 PATIENT NAME: DANIEL LEHMAN noteV.[id number] for patient lovpSDACFODSQTIBCD6962-68-51X65:32:09 [facility] 2023-11-18 21:41:00 [id number] bj+S0EwuNJKx7aHTBp+qEjqXSsl8r CCCV6O5pWJqmQybdgUoHqIy+D6X3834-79-50Y21:41:00 [facility] ([facility])Nephrology Progress NoteREPORT#:[id number] REPORT STATUS: SignedREPORT INITIALIZATION DATE:11/18/23 TIME: 2140 PATIENT: DANIEL LEHMAN UNIT #: [id number]#: [id number] [address] [birth year] AGE: 52 SEX: M ATTEND: Jeremias Ibarra MDA AUTHOR: Christa Maurer MDREPT SERVICE DT/TIME: 11/18/232140 * ALL edits or amendments must be made on the electronic/computer document * SubjectiveChief complaint:SOBHPI:52-year-old man known to have hypertension who had recently presented with shortness of breath and was started on treatment for hypervolemia and pneumonia was seen today. He had been admitted to another hospital recently for chest pain and had a left heart cath which showed no coronary artery disease and he had also had nausea and vomiting prior to admission. He denied nausea or vomiting or diarrhea when he was seen. He also denied orthopnea, cramping, itching, change of taste. He denied any known history of kidney disease or kidney stone. He endorsed having used Advil or Aleve hkms-utr-mhwegmy for back pain but not more than once or twice a day. 11/18Patient feeling fine, denying all systemic review. Objective Physical ExamHead/eyes: atraumatic, EOMIENT: moist mucous membranes, normal noseNeck: no JVD, no lymphadenopathyCardiovascular: normal heart sounds, regular rate and rhythmRespiratory: aerating well, clear to auscultationAbdomen: non-tender, softGenitourinary: no bladder distention, no flank painExtremities: no edema, no gangrene, no swelling Diagnosis, Assessment PlanFree Text A P:52-year-old man known to have hypertension who had recently presented with shortness of breath and was started on treatment for hypervolemia and pneumonia was seen today. He had been admitted to another hospital recently for chest pain and had a left heart cath which showed no coronary artery disease and he had also had nausea and vomiting prior to admission. He denied nausea or vomiting or diarrhea when he was seen. He also denied orthopnea, cramping, itching, change of taste. He denied any known history of kidney disease or kidney stone. He endorsed having used Advil or Aleve zhcp-hqd-lsrpodp for back pain but not more than once or twice a day. Nephrology following for: 1. VIN: Most likely prerenal as it improved with IV fluids. Plan to keep mean arterial pressure above 65 and avoid nephrotoxic agents 2. Hyponatremia: Resolved: Most likely secondary to hypotension and pneumonia. Plan to monitor closely. 3. Hypokalemia: Plan to monitor and replace as needed. 4. Pneumonia/infection: Plan to monitor renal dosing of medication. 11/17 1. VIN: Most likely prerenal as it improved with IV fluids. Plan to keep mean arterial pressure above 65 and avoid nephrotoxic agents 2. Hyponatremia: Resolved: Most likely secondary to hypotension and pneumonia. Plan to monitor closely. 3. Hypokalemia/ hypophosphatemia: Plan to monitor and replace as needed. 4. Pneumonia/infection: Plan to monitor renal dosing of medication. at 2143 RPT #:[id number] OF REPORTPRProgress lmen0064-37-58O20:41:00V.[id number] able for patient ctgxAMWGMOUZPBCPWH2421-27-02N18:43:19 [facility] 2023-11-17 22:42:00 [id number] yyKN+5Zm4IP2kErudJR5G7O3oX7pz GPI3YeAlTc/mkpGqO7rUzAzl7DG8221-30-74Q30:42:00 [facility] ([facility])Nephrology Progress NoteREPORT#:[id number] REPORT STATUS: SignedREPORT INITIALIZATION DATE:11/17/23 TIME: 2241 PATIENT: DANIEL LEHMAN UNIT #: [id number]#: [id number] ROOM/BED: 2085-ADOB: [birth year] AGE: 52 SEX: M ATTEND: Jeremias Ibarra AUTHOR: Christa Maurer MDREPT SERVICE DT/TIME: 12/19/23 2242 * ALL edits or amendments must be made on the electronic/computer document * SubjectiveChief complaint:SOBHPI:52-year-old man known to have hypertension who had recently presented with shortness of breath and was started on treatment for hypervolemia and pneumonia was seen today. He had been admitted to another hospital recently for chest pain and had a left heart cath which showed no coronary artery disease and he had also had nausea and vomiting prior to admission. He denied nausea or vomiting or diarrhea when he was seen. He also denied orthopnea, cramping, itching, change of taste. He denied any known history of kidney disease or kidney stone. He endorsed having used Advil or Aleve nfor-qym-slnewlf for back pain but not more than once or twice a day. 11/17Patient feeling fine, denying all systemic review. Objective GeneralVS/I O:Vital Signs: Date Time Temp Pulse Resp B/P B/P Pulse O2 O2 Flow FiO2 Mean Ox Delivery Rate 11/17 1613 36.7 91 20 132/70 90.3 93 Nasal cannula 11/17 1126 36.6 109 20 149/89 109.1 94 Nasal cannula 11/17 0842 97 Nasal 4 36 cannula 11/17 0809 36.4 96 20 137/80 98.7 99 Nasal cannula 11/17 0800 5 11/17 0411 36.8 88 18 137/79 98.5 100 11/17 0348 High flow 7 nasal cannula 11/17 0012 36.4 94 18 103/54 70.0 98 PATIENT WEIGHT: Weight (lb): 249Weight (oz): 9.01Weight (kg): 113.200 Physical ExamGeneral appearance: alert, awake, orientedHead/eyes: atraumatic, EOMIENT: moist mucous membranes, normal noseNeck: no JVD, no lymphadenopathyCardiovascular: normal heart sounds, regular rate and rhythmRespiratory: aerating well, clear to auscultationAbdomen: non-tender, softGenitourinary: no bladder distention, no flank painExtremities: no edema, no gangrene, no swelling Diagnosis, Assessment PlanFree Text A P:52-year-old man known to have hypertension who had recently presented with shortness of breath and was started on treatment for hypervolemia and pneumonia was seen today. He had been admitted to another hospital recently for chest pain and had a left heart cath which showed no coronary artery disease and he had also had nausea and vomiting prior to admission. He denied nausea or vomiting or diarrhea when he was seen. He also denied orthopnea, cramping, itching, change of taste. He denied any known history of kidney disease or kidney stone. He endorsed having used Advil or Aleve qfqm-ney-szmcaai for back pain but not more than once or twice a day. Nephrology following for: 1. VIN: Most likely prerenal as it improved with IV fluids. Plan to keep mean arterial pressure above 65 and avoid nephrotoxic agents 2. Hyponatremia: Resolved: Most likely secondary to hypotension and pneumonia. Plan to monitor closely. 3. Hypokalemia: Plan to monitor and replace as needed. 4. Pneumonia/infection: Plan to monitor renal dosing of medication. 11/17 1. VIN: Most likely prerenal as it improved with IV fluids. Plan to keep mean arterial pressure above 65 and avoid nephrotoxic agents 2. Hyponatremia: Resolved: Most likely secondary to hypotension and pneumonia. Plan to monitor closely. 3. Hypokalemia/ hypophosphatemia: Plan to monitor and replace as needed. 4. Pneumonia/infection: Plan to monitor renal dosing of medication. at 2243 RPT #:[id number] OF REPORTPRProgress hqap9551-07-83M36:42:00V.OKSB06891577-4297HFGjuop able for patient czhkSXIQTIZRBRXJBQ2518-84-31L45:43:57 [facility] 2023-11-17 18:00:00 [id number] BK/biL57iNtuDTWg7sPLXwAMQUdSg Z39Y9Gnb5XhRSnM9xGYZKyTYrjq1458-14-64P74:00:00 [facility] ([facility] Progress NoteREPORT#:[id number] REPORT STATUS: SignedREPORT INITIALIZATION DATE:11/17/23 TIME: 1800 PATIENT: DANIEL LEHMAN UNIT #: [id number]#: [id number] [address] [birth year] AGE: 53 SEX: M ATTEND: StaceyJeremias J [facility] AUTHOR: Jose Miguel Roca MDREPT SERVICE DT/TIME: 11/17/23 1800 * ALL edits or amendments must be made on the electronic/computer document * SubjectiveChief complaint:Shortness of breathHPI:52-year-old male was transferred from outside facility to [facility] with shortness of breath patient is obese, never been diagnosed with obstructive sleep apnea. Patient was admitted from October 19 8 November 05, with hypercapnic respiratory failure-also had left heart cath which was normalCT chest reviewed it is showing possibility of aspiration versus resolving pneumonia may be mild pulmonary edema External record: Patient was recently admitted at [facility] from October 27 through November 05 with hypercapnic respiratory failure, unstable angina and NSTEMI. Per the notes the patient had a left heart cath which showed normal coronary arteries and patient was discharged in a stable condition. Review of Systems ROSRespiratory:Reports: SOB. Denies: wheezing. Cardiovascular:Reports: LAMBERT (dyspnea on exertion). Denies: chest pain. GI:Denies: vomiting. Objective Physical ExamHead/eyes: atraumatic, normocephalicCardiovascular: regular rate rhythmRespiratory/chest: aerating well, clear to auscultationAbdomen: soft, non-tenderExtremities: no pedal edemaNeuro/SET UP MECHANIC: alert Diagnosis, Assessment PlanFree Text A P:52-year-old male obese previous history of admission due to hypercapnic respiratory failure. Patient was transferred here for further care-patient presented to the ER with vomiting. During his previous admission patient's leftheart cath was reported as normal.Patient is still requiring high flow nasal cannulaLikely reason for hypoxia could be aspiration pneumonitis versus mild pulmonary edema, possibility of inflammation due to aspiration pneumonitis Current problemsAcute hypoxic respiratory failureObesityPossible aspiration pneumonitis versus pulmonary edema PlanContinue IV Zosyn for possible aspiration pneumonitisI will give 1 dose of Lasix and see the response and possibility of weaning downthe oxygen.I will start the patient on low-dose Solu-MedrolWean oxygen as tolerated to keep the O2 sat more than or equal to 92%.Carbon dioxide/bicarbonate in BMP is not suggestive of obesity hypoventilation syndrome as it is within normal limits on admission.Patient likely has obstructive sleep apnea for which she will need outpatient sleep study Thank you for the consult 11/14/2023I will wean the FiO2 to 70% and decrease the flow to 15 L, wean oxygen as tolerated. Physical therapy is working with the patient patient has been diagnosed with obstructive sleep apnea however he has old machine he will need repeat sleep study as an outpatient 11/15/2023atient is breathing better, wean down the oxygen to 10 L discussed with RN to start regular nasal cannula as tolerated 10 L high flow overall remained stable 11/16/2023 patient is down to 6 L of oxygen, wean as tolerated will need home oxygen on discharge likely has COVID-related scarring at 1727 RPT #:[id number] OF REPORTPRProgress [id number]:00:00V.[id number] able for patient vtbgHUDEWYWZTVKZBA7757-39-61X35:28:44 [facility] 2023-11-17 16:00:00 [id number]+4 n6/Ye+xM7BJ/FZRYhb5bXIdrcS7IY 1JohGkmWPYuT9vGPl3Wn4XlMtet5803-90-57Q73:00:00 [facility] ([facility])Hospitalist Discharge SummaryREPORT#:[id number] REPORT STATUS: SignedREPORT INITIALIZATION DATE:11/17/23 TIME: 1600 PATIENT: DANIEL LEHMAN UNIT #: [id number]#: [id number] [address] [birth year] AGE: 52 SEX: M ATTEND: Jeremias Ibarra MDADM AUTHOR: Jeremias Ibarra MDREPT SERVICE DT/TIME: 11/17/23 1600 * ALL edits or amendments must be made on the electronic/computer document * General InformationDate of admission:Observation Start Date: Date of admission: 11/10/23 Discharge date: 11/17/23Discharge diagnosis:acute respiratory failure with hypoxemiapneumoniaHospital course:# Acute respiratory failure with hypoxemiasecondary to pneumoniaimproved. rehabilitation attendant recommends weaning oxygen. patient weaned to 4L of oxygen and tolerated. patient has home oxygen #PneumoniaSuspect community-acquired pneumonia. Chest x-ray shows patchy left interstitial infiltrate.Cannot rule out multidrug-resistant organisms such as Pseudomonas given patient's recent hospitalization 1 week ago. Cover for Pseudomonas with IV Zosyn 3.375 mg every 8 hours #Acute renal failureSuspect VIN versus CKD stage IIIaAvoid nephrotoxic #Diabetes mellitus type 2-hgb A1C 5.5glucose checks AC and HSsliding scale insulin #HypertensionIV hydralazine 10mg q4hrs prn for SBP >170 or DBP >100 #HyperlipidemiaAtorvastatin 40 mg daily #TransaminitisSuspect due to fatty liver disease #AnemiaRule out iron deficiency Chronic nausea Started PPI twice daily GI consulted, follow-up recs #ObesityBMI 39.6Counseled the patient on need for weight loss with diet and daily exercise. I spent 40 minutes discharging this patient Med Rec Med RecDischarge meds:Stop taking the following medications:SPIRONOLACTONE (ALDACTONE) 25 MG TAB 25 MILLIGRAM ORAL TWICE DAILY. Continue taking these medications:METOPROLOL TARTRATE (LOPRESSOR) 50 MG TAB 50 MILLIGRAM ORAL TWICE DAILY. ATORVASTATIN (LIPITOR) 20 MG TAB 20 MILLIGRAM ORAL DAILY. OMEGA-3 FATTY ACIDS/FISH OIL (OMEGA 3 1,000 MG SOFTGEL) 300 MG-1,000 MG CAP 1,000 MILLIGRAM ORAL TWICE DAILY. PANTOPRAZOLE DR (PROTONIX) 40 MG TAB.DR 40 MILLIGRAM ORAL TWICE DAILY. [SYNJARDY] 12.5 INSULIN REGULAR CONCENTRATE (HumuLIN R CONCENTRATE) 500 UNIT/ML (CONCENTRATED) VIAL 35 UNITS SUBCUTANEOUS BEFORE MEALS. [MOUNJARO] INSULIN DETEMIR (LEVEMIR FlexTouch (15mL)) 100 UNIT/ML (3 ML) PEN.INJCTR 35 UNITS SUBCUTANEOUS EVERY 12 HOURS. metFORMIN (GLUCOPHAGE) 1,000 MG TAB 1,000 MILLIGRAM ORAL TWICE DAILY. Instructions: TAKE WITH MEALS Start taking the following new medications:IPRATROPIUM/ALBUTEROL (COMBIVENT RESPIMAT 20/100 MCG/ACT) 20 MCG-100 MCG/ACTUATION INHALER 1 INH INHALATION FOUR TIMES A DAY. Qty = 4 Refills = 1 Instructions: generic AMOXICILLIN/CLAV K (AUGMENTIN 875/125 MG) 875 MG-125 MG TAB 875 MILLIGRAM ORAL EVERY 12 HOURS. Days = 5 Qty = 10 No Refills Instructions: generic ObjectiveVS/I OLast Documented: Result Date Time Pulse Ox 93 11/17 1613 B/P 132/70 11/17 1613 B/P Mean 90.3 11/17 1613 O2 Delivery Nasal cannula 11/17 1613 Temp 36.7 11/17 1613 Pulse 91 11/17 1613 Resp 20 11/17 1613 FiO2 36 11/17 0842 O2 Flow Rate 4 11/17 0842 Free Text Obj NotesFree Text Obj Notes:Physical ExamGeneral appearance: obese, alert, awake, oriented, no acute distress, conversationalHead/Eyes: atraumatic, clear cornea, EOMIENT: moist mucosal membranes, normal dentition, normal ear left, normal ear right, normal noseNeck: non-tender, no bruit/NL carotids, no JVD, no masses or swellingCardiovascular: normal capillary refill, normal heart sounds, tachycardic, no gallop, no murmur, no rubRespiratory: decrease breath sounds bibasilar, rhonchi, symmetric expansion, no crackles or wheezes. Abdomen: non-tender, normal bowel sounds, soft, no distention, no guarding, no mass/organomegaly, no reboundExtremities: moves all, no clubbing, no cyanosis, no edemaMusculoskeletal: normal inspection, painless range of motion, no CVA tenderness,no muscle spasmNeuro/SET UP MECHANIC: alert, oriented X 3, CNII-XII intact, normal speech, no motor deficits, no sensory deficitsSkin: dry, intact, normal color, normal temperature, no rashLymphatics: axilla normal, inguinal normal, neck normal, no lymphadenopathyPsychiatry: normal affect, normal judgment/insight, normal mood, not homicidal, not suicidal Discharge Instructions PCPDischarge to: Home/Self CareAdditional Discharge Routines: Assembly Line Driver Follow-Up, Equipment/SuppliesDiet: Resume Home Diet/FeedsActivity: As ToleratedEquipment/supplies: Oxygen therapy Follow-up AppointmentsConsulting provider 1: Provider 1: Jose Miguel Roca MD Specialty: Internal Medicine Consult follow up timeframe: In 1-2 weeks Quality: Discharge Current MedicationsCurrent medication review:I attest that the foregoing medication list in the medical record is true, accurate, and complete to the best of my knowledge. at 0912 RPT #:[id number] OF REPORTDSDischarge lkymvew8235-97-03D56:00:00V.[id number] ailable for patient sztqBYYYFFOSRBQWOI2506-42-15C71:12:25 [facility] 2023-11-16 19:23:00 [id number] niat82d5XOx1D+o7HgNlq4/4T3YtL SdP2R1DQI8xO/dO0Rt9yWK2tqq94780-29-51W77:23:00 [facility] ([facility])Pulmonology Progress NoteREPORT#:[id number] REPORT STATUS: SignedREPORT INITIALIZATION DATE:11/16/23 TIME: 1922 PATIENT: DANIEL LEHMAN UNIT #: [id number]#: [id number] [address] [birth year] AGE: 52 SEX: M ATTEND: Jeremias Ibarra [facility] AUTHOR: Jose Miguel Roca MDREPT SERVICE DT/TIME: 11/16/231922 * ALL edits or amendments must be made on the electronic/computer document * SubjectiveChief complaint:Shortness of breathHPI:52-year-old male was transferred from outside facility to [facility] with shortness of breath patient is obese, never been diagnosed with obstructive sleep apnea. Patient was admitted from October 19 8 November 05, with hypercapnic respiratory failure-also had left heart cath which was normalCT chest reviewed it is showing possibility of aspiration versus resolving pneumonia may be mild pulmonary edema External record: Patient was recently admitted at [facility] from October 27 through November 05 with hypercapnic respiratory failure, unstable angina and NSTEMI. Per the notes the patient had a left heart cath which showed normal coronary arteries and patient was discharged in a stable condition. Comments:Patient's breathing has improved Review of Systems ROSRespiratory:Reports: SOB. Denies: wheezing. Cardiovascular:Reports: LAMBERT (dyspnea on exertion). Denies: chest pain. GI:Denies: vomiting. Objective GeneralVS/I O:Last Documented: Result Date Time Pulse Ox 95 11/16 1608 B/P 110/57 11/16 1608 B/P Mean 74.7 11/16 1608 Temp 98.4 11/16 1608 Pulse 106 11/16 1608 Resp 16 11/16 1608 FiO2 68 11/16 0900 O2 Delivery Nasal cannula 11/16 0900 O2 Flow Rate 7 11/16 0900 24 hour I O ending at 0700: 11/16 0700 11/15 1900 Intake Total 900.00 Output Total 900 Balance 0 Intake, IV 100.00 Intake, Oral 800 Output, Urine 900 PATIENT WEIGHT: Weight (lb): 249Weight (oz): 9.01Weight (kg): 113.200 Dietitian nutrition assessmentThe data set between the solid lines has been imported from the dietitian's assessment. BMI Calculated: 39.1Nutrition related diagnosis: Nutrition diagnosis details: Nutrition problem: No nutrition diagnosisNutrition etiology: Nutrition signs and symptoms: Nutrition prescription: Continue consistent carbohydrate diet - 4 CHO/meal Biweekly weight checks RDN to sign off, reconsult as needed Dietitian name: Yasemin Navarro RDN, LDAssessment completed: 11/11/23 Physical ExamGeneral appearance: alert, awakeHead/eyes: atraumatic, normocephalicCardiovascular: regular rate rhythmRespiratory/chest: aerating well, clear to auscultationAbdomen: soft, non-tenderExtremities: no pedal edemaNeuro/SET UP MECHANIC: alert Diagnosis, Assessment PlanFree Text A P:52-year-old male obese previous history of admission due to hypercapnic respiratory failure. Patient was transferred here for further care-patient presented to the ER with vomiting. During his previous admission patient's leftheart cath was reported as normal.Patient is still requiring high flow nasal cannulaLikely reason for hypoxia could be aspiration pneumonitis versus mild pulmonary edema, possibility of inflammation due to aspiration pneumonitis Current problemsAcute hypoxic respiratory failureObesityPossible aspiration pneumonitis versus pulmonary edema PlanContinue IV Zosyn for possible aspiration pneumonitisI will give 1 dose of Lasix and see the response and possibility of weaning downthe oxygen.I will start the patient on low-dose Solu-MedrolWean oxygen as tolerated to keep the O2 sat more than or equal to 92%.Carbon dioxide/bicarbonate in BMP is not suggestive of obesity hypoventilation syndrome as it is within normal limits on admission.Patient likely has obstructive sleep apnea for which she will need outpatient sleep study Thank you for the consult 11/14/2023I will wean the FiO2 to 70% and decrease the flow to 15 L, wean oxygen as tolerated. Physical therapy is working with the patient patient has been diagnosed with obstructive sleep apnea however he has old machine he will need repeat sleep study as an outpatient 11/15/2023atient is breathing better, wean down the oxygen to 10 L discussed with RN to start regular nasal cannula as tolerated 10 L high flow overall remained stable 11/16/2023 patient is down to 6 L of oxygen, wean as tolerated will need home oxygen on discharge likely has COVID-related scarring at 1926 RPT #:[id number] OF REPORTPRProgress [id number]:23:00V.[id number] able for patient issxXGCBXTRCCLHAVG5606-88-44M23:26:28 [facility] 2023-11-16 14:01:00 [id number] MjyFMLMJCEFUR5T2LD0MI8QzzDQO1 3JjkIuiIx5RumXN0uM3ZHKKuby59635-35-16C06:01:00 [facility] Progress NoteREPORT#:[id number] REPORT STATUS: SignedREPORT INITIALIZATION DATE:11/16/23 TIME: 140 PATIENT: DANIEL LEHMAN UNIT #: [id number]#: [id number] ROOM[facility]BED: [facility]-ADOB: [birth year] AGE: 52 SEX: M ATTEND: Jeremias Ibarra MDADM AUTHOR: Christa Maurer MDREPT SERVICE DT/TIME: 11/16/23 1401 * ALL edits or amendments must be made on the electronic/computer document * SubjectiveChief complaint:SOBHPI:52-year-old man known to have hypertension who had recently presented with shortness of breath and was started on treatment for hypervolemia and pneumonia was seen today. He had been admitted to another hospital recently for chest pain and had a left heart cath which showed no coronary artery disease and he had also had nausea and vomiting prior to admission. He denied nausea or vomiting or diarrhea when he was seen. He also denied orthopnea, cramping, itching, change of taste. He denied any known history of kidney disease or kidney stone. He endorsed having used Advil or Aleve izxj-yvl-uzasimb for back pain but not more than once or twice a day. 11/16Patient feeling fine, denying all systemic review. Objective GeneralVS/I O:Vital Signs: Date Time Temp Pulse Resp B/P B/P Pulse O2 O2 Flow FiO2 Mean Ox Delivery Rate 11/17 1126 36.6 109 20 149/89 109.1 94 Nasal cannula 11/17 0842 97 Nasal 4 36 cannula 11/17 0809 36.4 96 20 137/80 98.7 99 Nasal cannula 11/17 0411 36.8 88 18 137/79 98.5 100 11/17 0348 High flow 7 nasal cannula 11/17 0012 36.4 94 18 103/54 70.0 98 11/16 1949 36.6 99 18 138/72 94.0 98 11/16 1608 36.9 106 16 110/57 74.7 95 PATIENT WEIGHT: Weight (lb): 249Weight (oz): 9.01Weight (kg): 113.200 Physical ExamGeneral appearance: alert, awake, orientedHead/eyes: atraumatic, EOMIENT: moist mucous membranes, normal noseNeck: no JVD, no lymphadenopathyCardiovascular: normal heart sounds, regular rate and rhythmRespiratory: aerating well, clear to auscultationAbdomen: non-tender, softGenitourinary: no bladder distention, no flank painExtremities: no edema, no gangrene, no swelling Diagnosis, Assessment PlanFree Text A P:52-year-old man known to have hypertension who had recently presented with shortness of breath and was started on treatment for hypervolemia and pneumonia was seen today. He had been admitted to another hospital recently for chest pain and had a left heart cath which showed no coronary artery disease and he had also had nausea and vomiting prior to admission. He denied nausea or vomiting or diarrhea when he was seen. He also denied orthopnea, cramping, itching, change of taste. He denied any known history of kidney disease or kidney stone. He endorsed having used Advil or Aleve ntcj-wki-tatrntm for back pain but not more than once or twice a day. Nephrology following for: 1. VIN: Most likely prerenal as it improved with IV fluids. Plan to keep mean arterial pressure above 65 and avoid nephrotoxic agents 2. Hyponatremia: Resolved: Most likely secondary to hypotension and pneumonia. Plan to monitor closely. 3. Hypokalemia: Plan to monitor and replace as needed. 4. Pneumonia/infection: Plan to monitor renal dosing of medication. 11/16 1. VIN: Most likely prerenal as it improved with IV fluids. Plan to keep mean arterial pressure above 65 and avoid nephrotoxic agents 2. Hyponatremia: Resolved: Most likely secondary to hypotension and pneumonia. Plan to monitor closely. 3. Hypokalemia/ hypophosphatemia: Plan to monitor and replace as needed. 4. Pneumonia/infection: Plan to monitor renal dosing of medication. at [address] [facility] #:[id number] OF REPORTPRProgress [id number]:01:00V.[id number] able for patient rsurGLPSPZPTDBVWIQ9870-98-03B12:15:09 [facility] 2023-11-16 13:54:00 [id number] wCgIbtKUlROi9A+R4jJDcEaKviU1G 7RPzZGGn2Cy7nNZgOq68jjN9QXJ4508-50-06Y16:54:00 [facility] ([facility])Hospitalist Progress NoteREPORT#:[id number] REPORT STATUS: SignedREPORT INITIALIZATION DATE:11/16/23 TIME: 1353 PATIENT: DANIEL LEHMAN UNIT #: [id number]#: [id number] [address] [birth year] AGE: 52 SEX: M ATTEND: Jeremias Ibarra MDADM AUTHOR: Jeremias Ibarra MDREPT SERVICE DT/TIME: 11/16/23 1354 * ALL edits or amendments must be made on the electronic/computer document * SubjectiveChief complaint:Shortness of breath improving Objective Free Text Obj NotesFree Text Obj Notes:Physical ExamGeneral appearance: obese, alert, awake, oriented, no acute distress, conversationalHead/Eyes: atraumatic, clear cornea, EOMIENT: moist mucosal membranes, normal dentition, normal ear left, normal ear right, normal noseNeck: non-tender, no bruit/NL carotids, no JVD, no masses or swellingCardiovascular: normal capillary refill, normal heart sounds, tachycardic, no gallop, no murmur, no rubRespiratory: decrease breath sounds bibasilar, rhonchi, symmetric expansion, no crackles or wheezes. Abdomen: non-tender, normal bowel sounds, soft, no distention, no guarding, no mass/organomegaly, no reboundExtremities: moves all, no clubbing, no cyanosis, no edemaMusculoskeletal: normal inspection, painless range of motion, no CVA tenderness,no muscle spasmNeuro/SET UP MECHANIC: alert, oriented X 3, CNII-XII intact, normal speech, no motor deficits, no sensory deficitsSkin: dry, intact, normal color, normal temperature, no rashLymphatics: axilla normal, inguinal normal, neck normal, no lymphadenopathyPsychiatry: normal affect, normal judgment/insight, normal mood, not homicidal, not suicidal Diagnosis, Assessment Plan Free Text DxA P NotesFree text DxA P notes:# Acute respiratory failure with hypoxemiasecondary to pneumoniaimproved. rehabilitation attendant recommends weaning oxygen down to 10L oxygen via regularnasal canula #PneumoniaSuspect community-acquired pneumonia. Chest x-ray shows patchy left interstitial infiltrate.Cannot rule out multidrug-resistant organisms such as Pseudomonas given patient's recent hospitalization 1 week ago. Cover for Pseudomonas with IV Zosyn 3.375 mg every 8 hours #Acute renal failureSuspect VIN versus CKD stage IIIaAvoid nephrotoxic #Diabetes mellitus type 2-hgb A1C 5.5glucose checks AC and HSsliding scale insulin #HypertensionIV hydralazine 10mg q4hrs prn for SBP >170 or DBP >100 #HyperlipidemiaAtorvastatin 40 mg daily #TransaminitisSuspect due to fatty liver disease #AnemiaRule out iron deficiency Chronic nausea Started PPI twice daily GI consulted, follow-up recs #ObesityBMI 39.6Counseled the patient on need for weight loss with diet and daily exercise. 40 minutes of critical care time spent Quality: Gen Med Crit Care VTE ProphylaxisVTE prophylaxis initiated: yes (mechanical comp device) Current MedicationsCurrent medication review:I attest that the foregoing medication list in the medical record is true, accurate, and complete to the best of my knowledge. at [address] [facility] #:[id number] OF REPORTPRProgress [id number]:54:00V.[id number] able for patient brhaZDWAOSPWSUGCMM9932-31-98M58:46:21 [facility] 2023-11-16 12:26:00 [id number] XCEsBi9i/M78FUSjDT51ZF+IbLFTt TaVdqyouGjdyp+m5CHztCRV/QsX6782-16-56N38:26:00 [facility] ([facility])Gastroenterology Progress NoteREPORT#:[id number] REPORT STATUS: SignedREPORT INITIALIZATION DATE:11/16/23 TIME: 1225 PATIENT: DANIEL LEHMAN UNIT #: [id number]#: [id number] ROOM/BED: [facility]-ADOB: [birth year] AGE: 52 SEX: M ATTEND: Jeremias Ibarra [facility] AUTHOR: Maria Del Carmen Puentes SERVICE DT/TIME: 11/16/23 1226 * ALL edits or amendments must be made on the electronic/computer document * SubjectiveChief complaint:Shortness of breathHPI:52-year-old male with a past medical history of obesity, sp NSTEMI with left heart cath x2 weeks, no stents noted, presents to the ED due to shortness of breath after experiencing a fall. During hospital course, patient was found to have acute respiratory failure secondary to pneumonia, treated with antibiotics. Patient continues to endorse persistent nausea, thus GI consulted. Upon visitation, patient reports experiencing persistent nausea x2 months with LUQ pain and reflux symptoms, denies recent vomiting, hematemesis, hematochezia,melena, f/c, denies taking any medications or lifestyle changes to help alleviate symptoms. Patient denies ever receiving EGD/Colonoscopy prior, does not follow up with GI physician. CT Abd pelvis w/out contrast show no acute intra-abdominal findings.Comments:per pt nausea improved, able to nerissa diet, denies abd pain Review of SystemsConstitutional:Denies: chills, fever. Respiratory:Denies: SOB, wheezing. Cardiovascular:Denies: chest pain, palpitations. GI:Denies: abdominal pain, constipation, diarrhea, hematemesis, hematochezia, melena, nausea, vomiting. Objective GeneralVS/I O:Last Documented: Result Date Time Pulse Ox 95 11/16 1035 B/P 128/69 11/16 1035 B/P Mean 88.7 11/16 1035 Temp 97.5 11/16 1035 Pulse 101 11/16 1035 Resp 16 11/16 1035 FiO2 50 11/16 0006 O2 Delivery Nasal cannula 12/17 2108 O2 Flow Rate 7 11/15 2108 24 hour I O ending at 0700: 11/16 0700 11/15 1900 Intake Total 900.00 Output Total 900 Balance 0 Intake, IV 100.00 Intake, Oral 800 Output, Urine 900 PATIENT WEIGHT: Weight (lb): 249Weight (oz): 9.01Weight (kg): 113.200 Medications:Active Meds + DC'd Last 24 HrsInsulin Glargine (Lantus/Semglee) 20 UNIT BEDTIME SUBQ Potassium Chloride (K-DUR) 20 MEQ Q4HR PO Insulin Glargine (Lantus/Semglee) 50 UNIT DAILY SUBQ Metoclopramide HCl (METOCLOPRAMIDE HCL) 5 MG Q8H PRN PRN PO Magnesium Sulfate (MAGNESIUM 2G/50 ML WATER) 50 ML ONCE ONE IV (DC) Metoclopramide HCl (METOCLOPRAMIDE HCL) 5 MG Q8H PRN PRN IV (DC) Enoxaparin Sodium (LOVENOX 40MG SYRINGE) 40 MG DAILY SUBQ Midodrine (PROAMATINE 5MG TAB) 5 MG BID PO Atorvastatin Calcium (LIPITOR 20MG TAB) 20 MG DAILY PO Budesonide (PULMICORT RESPULES 0.25MG/2ML) 2 ML RTQ12H NEB (CKD) Insulin Human Lispro (HUMALOG) S/SCALE LOW Q6HR SUBQ Pantoprazole Sodium (PROTONIX) 40 MG BID PO Senna/Docusate Sodium (SENNA-S 50 MG/8.6 MG TABLET) 1 TAB BID PO Dextrose/Water (DEXTROSE 50%-WATER) 50 ML ASDIR PRN IV (CKD) Piperacillin Sod/Tazobactam Sod (ZOSYN) 3.375 G Q8H IV (DC) Sodium Chloride (SODIUM CHLORIDE 0.9%) 100 MLAlbuterol/Ipratropium (DUONEB) 3 ML RTQ4H INH Acetaminophen (TYLENOL) 650 MG Q4H PRN PRN PO Hydralazine HCl (APRESOLINE) 10 MG Q4H PRN PRN IV Ondansetron HCl (ondansetron HCL) 4 MG Q6H PRN PRN IV Dietitian nutrition assessmentThe data set between the solid lines has been imported from the dietitian's assessment. BMI Calculated: 39.1Nutrition related diagnosis: Nutrition diagnosis details: Nutrition problem: No nutrition diagnosisNutrition etiology: Nutrition signs and symptoms: Nutrition prescription: Continue consistent carbohydrate diet - 4 CHO/meal Biweekly weight checks RDN to sign off, reconsult as needed Dietitian name: Yasemin Navarro RDN, LDAssessment completed: 11/11/23 Physical ExamGeneral appearance: alert, awake, orientedHEENT: atraumatic, normocephalicNeck: no JVDCardiovascular: normal S1/S2, regular rate rhythmRespiratory: equal breath sounds, symmetric expansionAbdomen: non-tender, normal bowel sounds, soft, no distentionExtremities: decreased range of motionMusculoskeletal: decreased ROMNeuro/SET UP MECHANIC: alert, oriented X 3, no sensory deficitsSkin: dry, intactPsychiatry: not homicidal, not suicidal ResultsFindings/Data:Laboratory Tests 11/16/23 0407:[Embedded Image Not Available] 11/15/232039:[Embedded Image Not Available]Laboratory Tests 11/16 11/16 11/16 11/16 11/15 1209 0611 0407 0019 0 Chemistry Sodium (136 - 145 mmol/L) 136 136 Potassium (3.5 - 5.1 mmol/L) 3.0 L 3.2 L Chloride (98 - 107 mmol/L) 99.0 97.0 L Carbon Dioxide (21 - 32 mmol/L) 29.0 30.0 Anion Gap (10 - 20) 11.0 12.2 BUN (7 - 18 mg/dL) 8 10 Creatinine (0.7 - 1.3 mg/dL) 1.00 1.00 Glomerular Filtr Rate (>=60 mL/min) > 60 > 60 BUN/Creatinine Ratio (10 - 20) 8.4 L 9.8 L Glucose (74 - 106 mg/dL) 287 H 312 H POC Glucose (74 - 106 mg/dL) 212 H 259 H 357 H Calcium (8.5 - 10.1 mg/dL) 8.6 8.1 L Phosphorus (2.5 - 4.9 mg/dL) 1.8 L Magnesium (1.8 - 2.4 mg/dL) 1.9 Total Bilirubin (0.0 - 1.0 mg/dL) 0.50 AST (15 - 37 IUnit/L) 38 H ALT (12 - 78 IUnit/L) 125 H Total Alk Phosphatase (45 - 117 IUnit/L) 81 Total Protein (6.4 - 8.2 gram/dL) 5.8 L Albumin (3.4 - 5.0 g/dL) 3.1 L Globulin (2.7 - 4.2 gram/dL) 2.7 Albumin/Globulin Ratio (0.75 - 1.50) 1.1 11/15 1700 Chemistry POC Glucose (74 - 106 mg/dL) 299 H Results: labs reviewed, vital signs reviewed Diagnosis, Assessment PlanFree Text A P:52-year-old male with a past medical history of obesity, sp NSTEMI with left heart cath x2 weeks, no stents noted, presents to the ED due to shortness of breath after experiencing a fall. During hospital course, patient was found to have acute respiratory failure secondary to pneumonia, treated with antibiotics. Patient continues to endorse persistent nausea, thus GI consulted. Upon visitation, patient reports experiencing persistent nausea x2 months with LUQ pain and reflux symptoms, denies recent vomiting, hematemesis, hematochezia,melena, f/c, denies taking any medications or lifestyle changes to help alleviate symptoms. Patient denies ever receiving EGD/Colonoscopy prior, does not follow up with GI physician. CT Abd pelvis w/out contrast show no acute intra-abdominal findings. Assessment:-Abdominal Pain with Nausea - suspect gerd vs gastritis vs gastric/duodenal ulcer - improved-Anemia - Mild -patient denies recent GI bleed-Hx NSTEMI sp cath x2 weeks - on lovenox Plan:-Recommend Protonix BID - continue upon dc-Low dose reglan - monitor for EPS-Discussed lifestyle changes, patient confirmed understanding-Monitor H/H, transfuse if hgb <7.0-Monitor for acute GI bleed-IVF, antiemetics, pain management as needed-Will monitor PRN at 1228 at 1649 RPT #:[id number] OF REPORTPRProgress [id number]:26:00V.[id number] able for patient akqpBASNAPDJYOVKZW9958-76-41H25:28:50 [facility] 2023-11-15 18:47:00 [id number] /qmFdCr1Bkyy7eo1LYNN19zx2aJ8T FsmYlTFOiB0ZjNKC1j7eo88XErS5803-06-93P85:47:00 [facility] ([facility])Pulmonology Progress NoteREPORT#:[id number] REPORT STATUS: SignedREPORT INITIALIZATION DATE:11/15/23 TIME: 1846 PATIENT: DANIEL LEHAMN UNIT #: [id number]#: [id number] ROOM[facility]BED: [facility]-ADOB: [birth year] AGE: 52 SEX: M ATTEND: Jeremias Ibarra [facility] AUTHOR: Jose Miguel Roca MDREPT SERVICE DT/TIME: 11/15/231846 * ALL edits or amendments must be made on the electronic/computer document * SubjectiveChief complaint:Shortness of breathHPI:52-year-old male was transferred from outside facility to [facility] with shortness of breath patient is obese, never been diagnosed with obstructive sleep apnea. Patient was admitted from October 19 8 November 05, with hypercapnic respiratory failure-also had left heart cath which was normalCT chest reviewed it is showing possibility of aspiration versus resolving pneumonia may be mild pulmonary edema External record: Patient was recently admitted at [facility] from October 27 through November 05 with hypercapnic respiratory failure, unstable angina and NSTEMI. Per the notes the patient had a left heart cath which showed normal coronary arteries and patient was discharged in a stable condition. Comments:Respiratory status remains stable, oxygen weaned down to 10 L patient is saturating 97% Review of Systems ROSRespiratory:Reports: SOB. Denies: wheezing. Cardiovascular:Reports: LAMBERT (dyspnea on exertion). Denies: chest pain. GI:Denies: vomiting. Objective GeneralVS/I O:Last Documented: Result Date Time Pulse Ox 98 11/15 1812 FiO2 80 11/15 1812 O2 Flow Rate 10 11/15 1812 Pulse 82 11/15 1812 Resp 18 11/15 1812 O2 Delivery High flow nasal cannula 11/15 1812 B/P 122/70 11/15 1659 B/P Mean 87.2 11/15 1659 Temp 98.4 11/15 1659 24 hour I O ending at 0700: 11/15 0700 11/14 1900 Intake Total 1400.00 Output Total 900 1000 Balance -900 400.00 Intake, IV 200.00 Intake, Oral 1200 Number 1 Bowel Movements Output, Urine 900 1000 PATIENT WEIGHT: Weight (lb): 249Weight (oz): 9.01Weight (kg): 113.200 Dietitian nutrition assessmentThe data set between the solid lines has been imported from the dietitian's assessment. BMI Calculated: 39.1Nutrition related diagnosis: Nutrition diagnosis details: Nutrition problem: No nutrition diagnosisNutrition etiology: Nutrition signs and symptoms: Nutrition prescription: Continue consistent carbohydrate diet - 4 CHO/meal Biweekly weight checks RDN to sign off, reconsult as needed Dietitian name: Yasemin Navarro RDN, LDAssessment completed: 11/11/23 Physical ExamGeneral appearance: alert, awakeHead/eyes: atraumatic, normocephalicCardiovascular: regular rate rhythmRespiratory/chest: aerating well, clear to auscultationAbdomen: soft, non-tenderExtremities: no pedal edemaNeuro/SET UP MECHANIC: alert Diagnosis, Assessment PlanFree Text A P:52-year-old male obese previous history of admission due to hypercapnic respiratory failure. Patient was transferred here for further care-patient presented to the ER with vomiting. During his previous admission patient's leftheart cath was reported as normal.Patient is still requiring high flow nasal cannulaLikely reason for hypoxia could be aspiration pneumonitis versus mild pulmonary edema, possibility of inflammation due to aspiration pneumonitis Current problemsAcute hypoxic respiratory failureObesityPossible aspiration pneumonitis versus pulmonary edema PlanContinue IV Zosyn for possible aspiration pneumonitisI will give 1 dose of Lasix and see the response and possibility of weaning downthe oxygen.I will start the patient on low-dose Solu-MedrolWean oxygen as tolerated to keep the O2 sat more than or equal to 92%.Carbon dioxide/bicarbonate in BMP is not suggestive of obesity hypoventilation syndrome as it is within normal limits on admission.Patient likely has obstructive sleep apnea for which she will need outpatient sleep study Thank you for the consult 11/14/2023I will wean the FiO2 to 70% and decrease the flow to 15 L, wean oxygen as tolerated. Physical therapy is working with the patient patient has been diagnosed with obstructive sleep apnea however he has old machine he will need repeat sleep study as an outpatient 11/15/2023atient is breathing better, wean down the oxygen to 10 L discussed with RN to start regular nasal cannula as tolerated 10 L high flow overall remained stable at 1848 RPT #:[id number] OF REPORTPRProgress eepp6595-98-09Z51:47:00V.[id number] able for patient wqedIUPIXGYZARVNZJ4566-46-06D12:48:39 [facility] 2023-11-15 15:29:00 [id number]aE6p YTBAPqAdpscJZ46ELqEAgrS0EDy3977-94-06X44:29:00 [facility] ([facility])Hospitalist Progress NoteREPORT#:[id number] REPORT STATUS: SignedREPORT INITIALIZATION DATE:11/15/23 TIME: 1528 PATIENT: DANIEL LEHMAN UNIT #: [id number]#: [id number] [address] [birth year] AGE: 52 SEX: M ATTEND: Jeremias Ibarra MDADM AUTHOR: Jeremias Ibarra MDREPT SERVICE DT/TIME: 11/15/231528 * ALL edits or amendments must be made on the electronic/computer document * SubjectiveChief complaint:Shortness of breath improving Objective GeneralVS/I O:Vital Signs: Date Time Temp Pulse Resp B/P B/P Pulse O2 O2 Flow FiO2 Mean Ox Delivery Rate 11/15 2006 37.3 97 18 151/67 94.6 97 11/15 1812 82 18 98 10 80 11/15 181 98 High flow 10 80 nasal cannula 11/15 1659 36.9 81 16 122/70 87.2 97 High flow nasal cannula 11/15 1213 37.0 90 16 126/73 90.8 96 High flow nasal cannula 11/15 0800 High flow 15 70 nasal cannula 11/15 0718 36.7 98 16 112/67 81.9 97 High flow nasal cannula 11/15 0332 36.6 92 17 151/73 99.3 99 11/15 0100 90 98 50 11/14 2320 36.9 90 17 155/54 87.6 96 11/14 2257 94 25 96 15 70 11/14 2257 96 High flow 15 70 nasal cannula 24 hour I O ending at 0700: 11/15 0700 11/14 1900 Intake Total 1400.00 Output Total 900 1000 Balance -900 400.00 Intake, IV 200.00 Intake, Oral 1200 Number 1 Bowel Movements Output, Urine 900 1000 PATIENT WEIGHT: Weight (lb): 249Weight (oz): 9.01Weight (kg): 113.200 Medications:Active Meds + DC'd Last 24 HrsInsulin Glargine (Lantus/Semglee) 20 UNIT BEDTIME SUBQ (UNV) Insulin Glargine (Lantus/Semglee) 50 UNIT DAILY SUBQ Metoclopramide HCl (METOCLOPRAMIDE HCL) 5 MG Q8H PRN PRN PO Insulin Glargine (Lantus/Semglee) 20 UNIT NOW ONE SUBQ (DC) Magnesium Sulfate (MAGNESIUM 2G/50 ML WATER) 50 ML ONCE ONE IV (DC) Insulin Glargine (Lantus/Semglee) 30 UNIT DAILY SUBQ (DC) Metoclopramide HCl (METOCLOPRAMIDE HCL) 5 MG Q8H PRN PRN IV (DC) Enoxaparin Sodium (LOVENOX 40MG SYRINGE) 40 MG DAILY SUBQ Midodrine (PROAMATINE 5MG TAB) 5 MG BID PO Atorvastatin Calcium (LIPITOR 20MG TAB) 20 MG DAILY PO Budesonide (PULMICORT RESPULES 0.25MG/2ML) 2 ML RTQ12H NEB (CKD) Insulin Human Lispro (HUMALOG) S/SCALE LOW Q6HR SUBQ Pantoprazole Sodium (PROTONIX) 40 MG BID PO Senna/Docusate Sodium (SENNA-S 50 MG/8.6 MG TABLET) 1 TAB BID PO Dextrose/Water (DEXTROSE 50%-WATER) 50 ML ASDIR PRN IV (CKD) Piperacillin Sod/Tazobactam Sod (ZOSYN) 3.375 G Q8H IV (DC) Sodium Chloride (SODIUM CHLORIDE 0.9%) 100 MLAlbuterol/Ipratropium (DUONEB) 3 ML RTQ4H INH Acetaminophen (TYLENOL) 650 MG Q4H PRN PRN PO Hydralazine HCl (APRESOLINE) 10 MG Q4H PRN PRN IV Ondansetron HCl (ondansetron HCL) 4 MG Q6H PRN PRN IV Free Text Obj NotesFree Text Obj Notes:Physical ExamGeneral appearance: obese, alert, awake, oriented, no acute distress, conversationalHead/Eyes: atraumatic, clear cornea, EOMIENT: moist mucosal membranes, normal dentition, normal ear left, normal ear right, normal noseNeck: non-tender, no bruit/NL carotids, no JVD, no masses or swellingCardiovascular: normal capillary refill, normal heart sounds, tachycardic, no gallop, no murmur, no rubRespiratory: decrease breath sounds bibasilar, rhonchi, symmetric expansion, no crackles or wheezes. Abdomen: non-tender, normal bowel sounds, soft, no distention, no guarding, no mass/organomegaly, no reboundExtremities: moves all, no clubbing, no cyanosis, no edemaMusculoskeletal: normal inspection, painless range of motion, no CVA tenderness,no muscle spasmNeuro/SET UP MECHANIC: alert, oriented X 3, CNII-XII intact, normal speech, no motor deficits, no sensory deficitsSkin: dry, intact, normal color, normal temperature, no rashLymphatics: axilla normal, inguinal normal, neck normal, no lymphadenopathyPsychiatry: normal affect, normal judgment/insight, normal mood, not homicidal, not suicidal Diagnosis, Assessment Plan Free Text DxA P NotesFree text DxA P notes:# Acute respiratory failure with hypoxemiasecondary to pneumoniaimproved. rehabilitation attendant recommends weaning oxygen down to 10L oxygen via regularnasal canula #PneumoniaSuspect community-acquired pneumonia. Chest x-ray shows patchy left interstitial infiltrate.Cannot rule out multidrug-resistant organisms such as Pseudomonas given patient's recent hospitalization 1 week ago. Cover for Pseudomonas with IV Zosyn 3.375 mg every 8 hours #Acute renal failureSuspect VIN versus CKD stage IIIaAvoid nephrotoxic #Diabetes mellitus type 2-hgb A1C 5.5glucose checks AC and HSsliding scale insulin #HypertensionIV hydralazine 10mg q4hrs prn for SBP >170 or DBP >100 #HyperlipidemiaAtorvastatin 40 mg daily #TransaminitisSuspect due to fatty liver disease #AnemiaRule out iron deficiency Chronic nausea Started PPI twice daily GI consulted, follow-up recs #ObesityBMI 39.6Counseled the patient on need for weight loss with diet and daily exercise. 40 minutes of critical care time spent Quality: Gen Med Crit Care VTE ProphylaxisVTE prophylaxis initiated: yes (mechanical comp device) Current MedicationsCurrent medication review:I attest that the foregoing medication list in the medical record is true, accurate, and complete to the best of my knowledge. at 2114 RPT #:[id number] OF REPORTPRProgress [id number]:29:00V.[id number] able for patient odumIWPNYGVTECQBRG9716-99-94P12:15:07 [facility] 2023-11-15 10:40:00 [id number]/C AQGefejWETxthE95pBq+sQuk0+WwM ohnq/YZhS8MlsSypsry8NcEWxty7095-26-58C40:40:00 [facility] ([facility])Nephrology Consultation NoteREPORT#:[id number] REPORT STATUS: SignedREPORT INITIALIZATION DATE:11/15/23 TIME: 104 PATIENT: DANIEL LEHMAN UNIT #: [id number]#: [id number] [address] [birth year] AGE: 52 SEX: M ATTEND: Jeremias Ibarra MDADM AUTHOR: Christa Maurer MDREPT SERVICE DT/TIME: 11/15/23 1040 * ALL edits or amendments must be made on the electronic/computer document * History of Present IllnessRequesting clinician: Dr Mills for consult:hyponatremiaChief complaint:SOBHPI:52-year-old man known to have hypertension who had recently presented with shortness of breath and was started on treatment for hypervolemia and pneumonia was seen today. He had been admitted to another hospital recently for chest pain and had a left heart cath which showed no coronary artery disease and he had also had nausea and vomiting prior to admission. He denied nausea or vomiting or diarrhea when he was seen. He also denied orthopnea, cramping, itching, change of taste. He denied any known history of kidney disease or kidney stone. He endorsed having used Advil or Aleve hdyk-zic-diwelmy for back pain but not more than once or twice a day. History - Adult longitudinalPast medical history:Denies: Kidney disease/stones. Additional medical history:Diabetes mellitus type 2, hypertension, and GERDAdditional surgical history:Denies any history of surgeryFamily history:Reports: Diabetes, Hypertension. Alcohol use: Denies EtOH useDrug use: Denies recreational drugsSmoking status for patients 13 years old or older: Never SmokerAllergies:Coded Allergies:No Known Allergies (09/22/22) Review of SystemsConstitutional:Denies: chills, fever. Skin:Denies: abrasion, bruising. Allergy/Immun:Denies: allergic reaction, anaphylaxis. Eyes:Denies: redness, discharge. ENT:Denies: sore throat, throat pain. Respiratory:Denies: LAMBERT (dyspnea on exertion), hemoptysis. Cardiovascular:Denies: chest pain, LAMBERT (dyspnea on exertion). GI:Denies: abdominal pain, anorexia. :Denies: dysuria, flank pain. Objective GeneralVS/I O:Vital Signs: Date Time Temp Pulse Resp B/P B/P Pulse O2 O2 Flow FiO2 Mean Ox Delivery Rate 11/16 1035 36.4 101 16 128/69 88.7 95 11/16 0900 96 Nasal 7 68 cannula 11/16 0733 36.9 88 16 122/74 90.3 97 11/16 0427 36.7 87 18 133/77 95.9 100 11/16 0020 37.0 90 18 122/72 88.6 99 11/16 0006 102 98 50 11/15 2108 94 Nasal 7 cannula 11/15 2012 High flow 8 nasal cannula 11/15 2006 37.3 97 18 151/67 94.6 97 11/15 1812 82 18 98 10 80 11/15 1812 98 High flow 10 80 nasal cannula 11/15 1659 36.9 81 16 122/70 87.2 97 High flow nasal cannula 24 hour I O ending at 0700: 11/16 0700 11/15 1900 Intake Total 900.00 Output Total 900 Balance 0 Intake, IV 100.00 Intake, Oral 800 Output, Urine 900 PATIENT WEIGHT: Weight (lb): 249Weight (oz): 9.01Weight (kg): 113.200 Physical ExamGeneral appearance: alert, awake, orientedHead/eyes: atraumatic, EOMIENT: moist mucous membranes, normal noseNeck: no JVD, no lymphadenopathyCardiovascular: normal heart sounds, regular rate and rhythmRespiratory: aerating well, clear to auscultationAbdomen: non-tender, softGenitourinary: no bladder distention, no flank painExtremities: no edema, no gangrene, no swelling Diagnosis, Assessment Plan Free Text DxA P NotesFree text DxA P notes:52-year-old man known to have hypertension who had recently presented with shortness of breath and was started on treatment for hypervolemia and pneumonia was seen today. He had been admitted to another hospital recently for chest pain and had a left heart cath which showed no coronary artery disease and he had also had nausea and vomiting prior to admission. He denied nausea or vomiting or diarrhea when he was seen. He also denied orthopnea, cramping, itching, change of taste. He denied any known history of kidney disease or kidney stone. He endorsed having used Advil or Aleve wjuk-ngw-epponuo for back pain but not more than once or twice a day. Nephrology following for: 1. VIN: Most likely prerenal as it improved with IV fluids. Plan to keep mean arterial pressure above 65 and avoid nephrotoxic agents 2. Hyponatremia: Resolved: Most likely secondary to hypotension and pneumonia. Plan to monitor closely. 3. Hypokalemia: Plan to monitor and replace as needed. 4. Pneumonia/infection: Plan to monitor renal dosing of medication. at 1400 RPT #:[id number] OF REPORTGYZsaidqtccjbz6718-18-76A03:40:00V.PDOC2 [id number] for patient htplGEMMFHQTTXQPON1963-58-86C87:01:02 [facility] 2023-11-14 19:34:00 [id number] n666DMsBj2BRBj9Aw9egDnQ+lzp4B rF0se5MeNFOVeYbmMUJLlFaVQcX7918-00-32Q58:34:00 [facility] ([facility])Pulmonology Progress NoteREPORT#:[id number] REPORT STATUS: SignedREPORT INITIALIZATION DATE:11/14/23 TIME: 1933 PATIENT: DANIEL LEHMAN UNIT #: [id number]#: [id number] ROOM/BED: [facility]-ADOB: [birth year] AGE: 52 SEX: M ATTEND: Jeremias Ibarra [facility] AUTHOR: Jose Miguel Roca MDREPT SERVICE DT/TIME: 11/14/231933 * ALL edits or amendments must be made on the electronic/computer document * SubjectiveChief complaint:Shortness of breathHPI:52-year-old male was transferred from outside facility to [facility] with shortness of breath patient is obese, never been diagnosed with obstructive sleep apnea. Patient was admitted from October 19 8 November 05, with hypercapnic respiratory failure-also had left heart cath which was normalCT chest reviewed it is showing possibility of aspiration versus resolving pneumonia may be mild pulmonary edema External record: Patient was recently admitted at [facility] from October 27 through November 05 with hypercapnic respiratory failure, unstable angina and NSTEMI. Per the notes the patient had a left heart cath which showed normal coronary arteries and patient was discharged in a stable condition. Comments:Overall breathing is stable Objective Physical ExamHead/eyes: atraumatic, normocephalicCardiovascular: regular rate rhythmRespiratory/chest: decreased breath soundsAbdomen: soft, non-tenderExtremities: no pedal edemaNeuro/SET UP MECHANIC: alert Diagnosis, Assessment PlanFree Text A P:52-year-old male obese previous history of admission due to hypercapnic respiratory failure. Patient was transferred here for further care-patient presented to the ER with vomiting. During his previous admission patient's leftheart cath was reported as normal.Patient is still requiring high flow nasal cannulaLikely reason for hypoxia could be aspiration pneumonitis versus mild pulmonary edema, possibility of inflammation due to aspiration pneumonitis Current problemsAcute hypoxic respiratory failureObesityPossible aspiration pneumonitis versus pulmonary edema PlanContinue IV Zosyn for possible aspiration pneumonitisI will give 1 dose of Lasix and see the response and possibility of weaning downthe oxygen.I will start the patient on low-dose Solu-MedrolWean oxygen as tolerated to keep the O2 sat more than or equal to 92%.Carbon dioxide/bicarbonate in BMP is not suggestive of obesity hypoventilation syndrome as it is within normal limits on admission.Patient likely has obstructive sleep apnea for which she will need outpatient sleep study Thank you for the consult 11/14/2023I will wean the FiO2 to 70% and decrease the flow to 15 L, wean oxygen as tolerated. Physical therapy is working with the patient patient has been diagnosed with obstructive sleep apnea however he has old machine he will need repeat sleep study as an outpatient at 0016 RPT #:[id number] OF REPORTPRProgress [id number]:34:00V.[id number] able for patient lbyfRCPGODWHKHRIOK9186-56-35S28:17:43 [facility] 2023-11-14 18:46:00 [id number] QII8kMcmmai6WrgUySYcNyxLOBtaL 5w4piMHcjXTZrQq+ugbAp/IgxQ+3302-11-81T82:46:00 [facility] Progress NoteREPORT#:[id number] REPORT STATUS: SignedREPORT INITIALIZATION DATE:11/14/23 TIME: 1845 PATIENT: DANIEL LEHMAN UNIT #: [id number]#: [id number] ROOM/BED: 2085-ADOB: [birth year] AGE: 52 SEX: M ATTEND: Jeremias Ibarra MDADM AUTHOR: Jeremias Ibarra MDREPT SERVICE DT/TIME: 11/14/231845 * ALL edits or amendments must be made on the electronic/computer document * SubjectiveChief complaint:Shortness of breath Objective GeneralVS/I O:Vital Signs: Date Time Temp Pulse Resp B/P B/P Pulse O2 O2 Flow FiO2 Mean Ox Delivery Rate 11/14 1617 36.9 110 18 96/56 69.2 94 High flow nasal cannula 11/14 1145 37.0 109 20 117/61 79.4 94 High flow nasal cannula 11/14 0800 High flow 25 50 nasal cannula 11/14 0754 93 18 95 25 50 11/14 0754 95 Nasal 25 50 cannula 11/14 0748 36.6 92 20 127/79 94.9 99 BiPAP mask 11/14 0331 37.1 93 17 119/67 84.1 99 11/13 2252 37.3 111 17 137/76 96.5 93 11/13 2134 25 50 11/13 2045 High flow 25 50 nasal cannula 11/13 1911 37.3 114 17 113/60 77.5 96 24 hour I O ending at 0700: 11/14 0700 11/13 1900 Intake Total 300 Output Total 800 Balance -500 Intake, Oral 300 Output, Urine 800 PATIENT WEIGHT: Weight (lb): 249Weight (oz): 9.01Weight (kg): 113.200 Medications:Active Meds + DC'd Last 24 HrsInsulin Glargine (Lantus/Semglee) 30 UNIT DAILY SUBQ Metoclopramide HCl (METOCLOPRAMIDE HCL) 5 MG Q8H PRN PRN IV Enoxaparin Sodium (LOVENOX 40MG SYRINGE) 40 MG DAILY SUBQ Methylprednisolone Sodium Succinate (Solu-MEDROL 40 MG/ML) 20 MG Q8HR IV Azithromycin (ZITHROMAX) 500 MG DAILY PO (DC) Midodrine (PROAMATINE 5MG TAB) 5 MG BID PO Atorvastatin Calcium (LIPITOR 20MG TAB) 20 MG DAILY PO Budesonide (PULMICORT RESPULES 0.25MG/2ML) 2 ML RTQ12H NEB (CKD) Insulin Human Lispro (HUMALOG) S/SCALE LOW Q6HR SUBQ Pantoprazole Sodium (PROTONIX) 40 MG BID PO Senna/Docusate Sodium (SENNA-S 50 MG/8.6 MG TABLET) 1 TAB BID PO Dextrose/Water (DEXTROSE 50%-WATER) 50 ML ASDIR PRN IV (CKD) Piperacillin Sod/Tazobactam Sod (ZOSYN) 3.375 G Q8H IV Sodium Chloride (SODIUM CHLORIDE 0.9%) 100 MLAlbuterol/Ipratropium (DUONEB) 3 ML RTQ4H INH Acetaminophen (TYLENOL) 650 MG Q4H PRN PRN PO Hydralazine HCl (APRESOLINE) 10 MG Q4H PRN PRN IV Ondansetron HCl (ondansetron HCL) 4 MG Q6H PRN PRN IV Free Text Obj NotesFree Text Obj Notes:Physical ExamGeneral appearance: obese, alert, awake, oriented, no acute distress, conversationalHead/Eyes: atraumatic, clear cornea, EOMIENT: moist mucosal membranes, normal dentition, normal ear left, normal ear right, normal noseNeck: non-tender, no bruit/NL carotids, no JVD, no masses or swellingCardiovascular: normal capillary refill, normal heart sounds, tachycardic, no gallop, no murmur, no rubRespiratory: decrease breath sounds bibasilar, rhonchi, symmetric expansion, no crackles or wheezes. Abdomen: non-tender, normal bowel sounds, soft, no distention, no guarding, no mass/organomegaly, no reboundExtremities: moves all, no clubbing, no cyanosis, no edemaMusculoskeletal: normal inspection, painless range of motion, no CVA tenderness,no muscle spasmNeuro/SET UP MECHANIC: alert, oriented X 3, CNII-XII intact, normal speech, no motor deficits, no sensory deficitsSkin: dry, intact, normal color, normal temperature, no rashLymphatics: axilla normal, inguinal normal, neck normal, no lymphadenopathyPsychiatry: normal affect, normal judgment/insight, normal mood, not homicidal, not suicidal Diagnosis, Assessment Plan Free Text DxA P NotesFree text DxA P notes:# Acute respiratory failure with hypoxemiasecondary to pneumoniaplaced on high flow oxygen vapotherm at 30L at FiO2 80%, wean down to Vapotherm 25 L fio2 65% pulmonary consultedadmitted to ICU #PneumoniaSuspect community-acquired pneumonia. Chest x-ray shows patchy left interstitial infiltrate.Cannot rule out multidrug-resistant organisms such as Pseudomonas given patient's recent hospitalization 1 week ago. Cover for Pseudomonas with IV Zosyn 3.375 mg every 8 hours #Acute renal failureSuspect VIN versus CKD stage IIIaAvoid nephrotoxic #Diabetes mellitus type 2-hgb A1C 5.5glucose checks AC and HSsliding scale insulin #HypertensionIV hydralazine 10mg q4hrs prn for SBP >170 or DBP >100 #HyperlipidemiaAtorvastatin 40 mg daily #TransaminitisSuspect due to fatty liver disease #AnemiaRule out iron deficiency Chronic nausea Started PPI twice daily GI consulted, follow-up recs #ObesityBMI 39.6Counseled the patient on need for weight loss with diet and daily exercise. 40 minutes of critical care time spent Quality: Gen Med Crit Care VTE ProphylaxisVTE prophylaxis initiated: yes (mechanical comp device) Current MedicationsCurrent medication review:I attest that the foregoing medication list in the medical record is true, accurate, and complete to the best of my knowledge. at 1857 RPT #:[id number] OF REPORTPRProgress [id number]:46:00V.[id number] able for patient pmxnSNHWJPUNTUTOBP2451-00-66P04:58:25 [facility] 2023-11-13 17:55:00 [id number]+BskArQkGHKgW1NuELXlmuf1P SDHxe0EGLgMpc7v0aZZGMtSVuJL0684-08-03D29:55:00 [facility] ([facility])Pulmonology Progress NoteREPORT#:[id number] REPORT STATUS: SignedREPORT INITIALIZATION DATE:11/13/23 TIME: 1754 PATIENT: DANIEL LEHMAN UNIT #: [id number]#: [id number] ROOM/BED: [facility]-ADOB: [birth year] AGE: 52 SEX: M ATTEND: Jeremias Ibarra [facility] AUTHOR: Jose Miguel Roca MDREPT SERVICE DT/TIME: 11/13/231754 * ALL edits or amendments must be made on the electronic/computer document * SubjectiveChief complaint:Shortness of breathHPI:52-year-old male was transferred from outside facility to [facility] with shortness of breath patient is obese, never been diagnosed with obstructive sleep apnea. Patient was admitted from October 19 8 November 05, with hypercapnic respiratory failure-also had left heart cath which was normalCT chest reviewed it is showing possibility of aspiration versus resolving pneumonia may be mild pulmonary edema External record: Patient was recently admitted at [facility] from October 27 through November 05 with hypercapnic respiratory failure, unstable angina and NSTEMI. Per the notes the patient had a left heart cath which showed normal coronary arteries and patient was discharged in a stable condition. Comments:Patient is on high flow nasal cannula Review of Systems ROSRespiratory:Reports: SOB. Denies: wheezing. Cardiovascular:Reports: LAMBERT (dyspnea on exertion). Denies: chest pain. GI:Denies: vomiting. Objective GeneralVS/I O:Last Documented: Result Date Time Pulse Ox 96 11/14 2320 B/P 155/54 11/14 2320 B/P Mean 87.6 11/14 2320 Temp 98.4 11/14 2320 Pulse 90 11/14 2320 Resp 17 11/14 2320 FiO2 70 11/14 2257 O2 Flow Rate 15 11/14 2257 O2 Delivery High flow nasal cannula 11/14 2257 24 hour I O ending at 0700: 11/15 0700 11/14 1900 Intake Total 1400.00 Output Total 1000 Balance 400.00 Intake, IV 200.00 Intake, Oral 1200 Number 1 Bowel Movements Output, Urine 1000 PATIENT WEIGHT: Weight (lb): 249Weight (oz): 9.01Weight (kg): 113.200 Dietitian nutrition assessmentThe data set between the solid lines has been imported from the dietitian's assessment. BMI Calculated: 39.1Nutrition related diagnosis: Nutrition diagnosis details: Nutrition problem: No nutrition diagnosisNutrition etiology: Nutrition signs and symptoms: Nutrition prescription: Continue consistent carbohydrate diet - 4 CHO/meal Biweekly weight checks RDN to sign off, reconsult as needed Dietitian name: Yasemin Navarro RDN, LDAssessment completed: 11/11/23 Physical ExamHead/eyes: atraumatic, normocephalicCardiovascular: regular rate rhythmRespiratory/chest: aerating well, clear to auscultationAbdomen: soft, non-tenderExtremities: no pedal edemaNeuro/SET UP MECHANIC: alert Diagnosis, Assessment PlanFree Text A P:52-year-old male obese previous history of admission due to hypercapnic respiratory failure. Patient was transferred here for further care-patient presented to the ER with vomiting. During his previous admission patient's leftheart cath was reported as normal.Patient is still requiring high flow nasal cannulaLikely reason for hypoxia could be aspiration pneumonitis versus mild pulmonary edema, possibility of inflammation due to aspiration pneumonitis Current problemsAcute hypoxic respiratory failureObesityPossible aspiration pneumonitis versus pulmonary edema PlanContinue IV Zosyn for possible aspiration pneumonitisI will give 1 dose of Lasix and see the response and possibility of weaning downthe oxygen.I will start the patient on low-dose Solu-MedrolWean oxygen as tolerated to keep the O2 sat more than or equal to 92%.Carbon dioxide/bicarbonate in BMP is not suggestive of obesity hypoventilation syndrome as it is within normal limits on admission.Patient likely has obstructive sleep apnea for which she will need outpatient sleep study Thank you for the consult 3Patient is requiring high flow nasal cannula, reported to me that patient used to use 5 L of oxygen at home during hours of sleep, this was after COVID and patient had extremely severe COVID with COVID-related scarring. Wean high flow nasal cannula at 0015 RPT #:[id number] OF REPORTPRProgress [id number]:55:00V.[id number] able for patient siuaEROHBJTDVOFWTJ5089-52-94U72:17:41 [facility] 2023-11-13 12:54:00 [id number] yOUzgCu8Yx28ufvGq7+hTK+[id number]:54:00 [facility] ([facility])Hospitalist Progress NoteREPORT#:[id number] REPORT STATUS: SignedREPORT INITIALIZATION DATE:11/13/23 TIME: 1254 PATIENT: DANIEL LEHMAN UNIT #: [id number]#: [id number] ROOM/BED: [facility]-ADOB: [birth year] AGE: 52 SEX: M ATTEND: JonnaLindsey O MDADM AUTHOR: JonnaLindsey O MDREPT SERVICE DT/TIME: 11/13/23 1252 * ALL edits or amendments must be made on the electronic/computer document * SubjectiveChief complaint:Shortness of breath Free Text Subj NotesFree Text Subj Notes:Patient seen and examined at bedside. Complaining of nausea. Review of Systems Free Text ROS NotesFree Text ROS Notes:CONSTITUTIONAL: Patient denies fevers, chills, sweats and weight changes.EYES: Patient denies any visual symptoms.EARS, NOSE, AND THROAT: No difficulties with hearing. No symptoms of rhinitis orsore throat.CARDIOVASCULAR: Patient denies chest pains, palpitations, orthopnea and paroxysmal nocturnal dyspnea.RESPIRATORY: reports shortness of breath, cough, and dyspnea on exertion. no wheezingGI: Reports nausea and vomiting. diarrhea, constipation, abdominal pain, hematochezia or melena.: No urinary hesitancy or dribbling. No nocturia or urinary frequency. No abnormal urethral discharge.MUSCULOSKELETAL: No myalgias or arthralgias.NEUROLOGIC: No chronic headaches, no seizures. Patient denies numbness, tinglingor weakness.PSYCHIATRIC: Patient denies problems with mood disturbance. No problems with anxiety.ENDOCRINE: No excessive urination or excessive thirst.DERMATOLOGIC: Patient denies any rashes or skin changes. Objective GeneralVS/I O:Vital Signs: Date Time Temp Pulse Resp B/P B/P Pulse O2 O2 Flow FiO2 Mean Ox Delivery Rate 11/13 1103 99.0 105 16 152/75 100.6 93 Nasal cannula 11/13 0904 111 20 92 25 50 11/13 0904 92 High flow 25 50 nasal cannula 11/13 0820 High flow 25 50 nasal cannula 11/13 0744 98.6 111 16 116/67 83.4 92 High flow nasal cannula 11/13 0518 114 20 94 25 50 11/13 0319 98.1 112 17 119/78 91.6 99 11/13 0216 101 99 50 11/13 0010 87 96 50 11/12 2300 98.8 99 17 108/68 81.6 96 12/14 2036 99 20 99 25 65 11/12 2036 99 High flow 25 65 nasal cannula 11/12 1923 99.0 101 17 131/81 97.9 97 11/12 1606 97.9 106 16 121/74 89.9 98 High flow nasal cannula 24 hour I O ending at 0700: 11/13 0700 11/12 1900 Intake Total 100 Output Total 800 Balance -700 Intake, Oral 100 Output, Urine 800 PATIENT WEIGHT: Weight (lb): 249Weight (oz): 9.01Weight (kg): 113.200 Free Text Obj NotesFree Text Obj Notes:Physical ExamGeneral appearance: obese, alert, awake, oriented, no acute distress, conversationalHead/Eyes: atraumatic, clear cornea, EOMIENT: moist mucosal membranes, normal dentition, normal ear left, normal ear right, normal noseNeck: non-tender, no bruit/NL carotids, no JVD, no masses or swellingCardiovascular: normal capillary refill, normal heart sounds, tachycardic, no gallop, no murmur, no rubRespiratory: decrease breath sounds bibasilar, rhonchi, symmetric expansion, no crackles or wheezes. On Vapotherm 25 L, FiO2 50%Abdomen: non-tender, normal bowel sounds, soft, no distention, no guarding, no mass/organomegaly, no reboundExtremities: moves all, no clubbing, no cyanosis, no edemaMusculoskeletal: normal inspection, painless range of motion, no CVA tenderness,no muscle spasmNeuro/SET UP MECHANIC: alert, oriented X 3, CNII-XII intact, normal speech, no motor deficits, no sensory deficitsSkin: dry, intact, normal color, normal temperature, no rashLymphatics: axilla normal, inguinal normal, neck normal, no lymphadenopathyPsychiatry: normal affect, normal judgment/insight, normal mood, not homicidal, not suicidal Diagnosis, Assessment Plan Free Text DxA P NotesFree text DxA P notes:# Acute respiratory failure with hypoxemiasecondary to pneumoniaplaced on high flow oxygen vapotherm at 30L at FiO2 80%, wean down to Vapotherm 25 L fio2 65% pulmonary consultedadmitted to ICU #PneumoniaSuspect community-acquired pneumonia. Chest x-ray shows patchy left interstitial infiltrate.Cannot rule out multidrug-resistant organisms such as Pseudomonas given patient's recent hospitalization 1 week ago. Cover for Pseudomonas with IV Zosyn 3.375 mg every 8 hours #Acute renal failureSuspect VIN versus CKD stage IIIaAvoid nephrotoxic #Diabetes mellitus type 2-hgb A1C 5.5glucose checks AC and HSsliding scale insulin #HypertensionIV hydralazine 10mg q4hrs prn for SBP >170 or DBP >100 #HyperlipidemiaAtorvastatin 40 mg daily #TransaminitisSuspect due to fatty liver disease #AnemiaRule out iron deficiency Chronic nausea Started PPI twice daily GI consulted, follow-up recs #ObesityBMI 39.6Counseled the patient on need for weight loss with diet and daily exercise. 40 minutes of critical care time spent Quality: Gen Med Crit Care VTE ProphylaxisVTE prophylaxis initiated: yes (mechanical comp device) Current MedicationsCurrent medication review:I attest that the foregoing medication list in the medical record is true, accurate, and complete to the best of my knowledge. at 1255 RPT #:[id number] OF REPORTPRProgress [id number]:54:00V.[id number] able for patient cimvGTBAFKSJNVWJQL9922-34-42W26:56:51 [facility] 2023-11-13 09:23:00 [id number] AGIkFSGN8QnZPnRBhBm1ZUmC/jg6757-62-14Q91:23:00 [facility] ([facility])GE Consultation NoteREPORT#:[id number] REPORT STATUS: SignedREPORT INITIALIZATION DATE:11/13/23 TIME: 922 PATIENT: DANIEL LEHMAN UNIT #: [id number]#: [id number] ROOM/BED: [facility]-ADOB: [birth year] AGE: 52 SEX: M ATTEND: Lindsey Coyle [facility] AUTHOR: Maria Del Carmen Puentes SERVICE DT/TIME: 11/13/23 0923 * ALL edits or amendments must be made on the electronic/computer document * History of Present IllnessRequesting clinician: DR Nunez for consult:persistent nauseaChief complaint:Shortness of breathPCP:PCP: Sang Rey MD HPI:52-year-old male with a past medical history of obesity, sp NSTEMI with left heart cath x2 weeks, no stents noted, presents to the ED due to shortness of breath after experiencing a fall. During hospital course, patient was found to have acute respiratory failure secondary to pneumonia, treated with antibiotics. Patient continues to endorse persistent nausea, thus GI consulted. Upon visitation, patient reports experiencing persistent nausea x2 months with LUQ pain and reflux symptoms, denies recent vomiting, hematemesis, hematochezia,melena, f/c, denies taking any medications or lifestyle changes to help alleviate symptoms. Patient denies ever receiving EGD/Colonoscopy prior, does not follow up with GI physician. CT Abd pelvis w/out contrast show no acute intra-abdominal findings.Hx Obtained From Patient History - Adult longitudinalAdditional medical history:Diabetes mellitus type 2, hypertension, and GERDAdditional surgical history:Denies any history of surgeryFamily history:Reports: Diabetes, Hypertension. Alcohol use: Denies EtOH useDrug use: Denies recreational drugsSmoking status for patients 13 years old or older: Never SmokerMedications:Home Medications:Medication Dose/Rte/Freq Days Qty Entered Last Max Daily Dose Reviewed INSULIN DETEMIR 35 UNITS SUBQ 11/10/23 11/12/23 (LEVEMIR FlexTouch (15mL)) Q12HR 1217 1313Strength: 100 UNIT/ML (3 ML)PEN.INJCTR metFORMIN (GLUCOPHAGE) 1,000 MG PO BID 11/10/23 11/12/23Strength: 1,000 MG TAB 1218 1312 SPIRONOLACTONE 25 MG PO BID 11/10/23 11/12/23 (ALDACTONE) 1220 1313Strength: 25 MG TAB METOPROLOL TARTRATE 50 MG PO BID 09/24/22 11/12/23 (LOPRESSOR) 0849 1313Strength: 50 MG TAB ATORVASTATIN (LIPITOR) 20 MG PO DAILY 09/24/22 11/12/23Strength: 20 MG TAB 0850 1313 OMEGA-3 FATTY 1,000 MG PO BID 09/24/22 11/12/23 ACIDS/FISH OIL 0851 1313 (OMEGA 3 1,000 MG SOFTGEL)Strength: 300 MG-1,[address] 40 MG PO BID 09/24/22 11/12/23 (PROTONIX) 0852 1313Strength: 40 MG TAB.DR[SYNJARDY] 12.5 09/24/22Strength: 0853 INSULIN REGULAR 35 UNITS SUBQ AC 09/24/22 CONCENTRATE 0854 (HumuLIN R CONCENTRATE)Strength: 500 UNIT/ML(CONCENTRATED) VIAL[MOUNJARO] 09/24/22Strength: 0855 Current Hospital Medications:Anti-Infective Agents Sig/Morales Start time Last Medication Dose Route Stop Time Status Admin Azithromycin 500 MG DAILY 11/12 0900 AC 11/13 (ZITHROMAX) PO 11/14 0901 0817 Piperacillin Sod/ 3.375 G Q8H 11/10 1400 AC 11/13 Tazobactam Sod IV 11/15 1359 0524 (ZOSYN) Sodium Chloride 100 ML (SODIUM CHLORIDE 0.9%) Autonomic Drugs Sig/Morales Start time Last Medication Dose Route Stop Time Status Admin Midodrine 5 MG BID 11/11 1700 AC 11/13 (PROAMATINE 5MG TAB) PO 12/11 1659 0817 Albuterol/Ipratropium 3 ML RTQ4H 11/10 1145 AC 11/13 (DUONEB) INH 12/10 1144 1129 Blood Formation,Coagulation Sig/Morales Start time Last Medication Dose Route Stop Time Status Admin Enoxaparin Sodium 40 MG DAILY 11/13 0900 AC 11/13 (LOVENOX 40MG SUBQ 12/13 0859 0818 SYRINGE) Enoxaparin Sodium 40 MG Q12HR 11/11 1000 DC 11/12 (LOVENOX 40MG SUBQ 12/11 0959 0848 SYRINGE) Cardiovascular Drugs Sig/Morales Start time Last Medication Dose Route Stop Time Status Admin Atorvastatin Calcium 20 MG DAILY 11/11 0900 AC 11/13 (LIPITOR 20MG TAB) PO 12/11 0859 0817 Hydralazine HCl 10 MG Q4H PRN PRN 11/10 1130 AC (APRESOLINE) IV 12/10 1129 Central Nervous System Agents Sig/Morales Start time Last Medication Dose Route Stop Time Status Admin Acetaminophen 650 MG Q4H PRN PRN 11/10 1130 AC 11/13 (TYLENOL) PO 12/10 1129 0817 Electrolytic, Caloric, And Jeffery Sig/Moraels Start time Last Medication Dose Route Stop Time Status Admin Potassium Chloride 20 MEQ STAT STA 11/13 0854 DC 11/13 (K-DUR) PO 11/13 0855 0948 Furosemide 20 MG ONCE ONE 11/13 0700 DC 11/13 (LASIX 20MG Inj) IV 11/13 0701 0625 Potassium 20 MEQ ONCE ONE 11/13 0700 DC 11/13 Bicarbonate/Citric PO 11/13 0701 0815 Acid (EFFER-K 20 MEQ) Eye, Ear, Nose And Throat (Een Sig/Morales Start time Last Medication Dose Route Stop Time Status Admin Budesonide 2 ML RTQ12H 11/10 2000 CKD 11/13 (PULMICORT RESPULES NEB 12/10 195 0859 0.25MG/2ML) Gastrointestinal Drugs Sig/Morales Start time Last Medication Dose Route Stop Time Status Admin Metoclopramide HCl 5 MG Q8H PRN PRN 11/13 1400 UNV (METOCLOPRAMIDE HCL) IV 12/13 1359 Pantoprazole Sodium 40 MG BID 11/10 1700 AC 11/13 (PROTONIX) PO 12/10 1659 0817 Senna/Docusate Sodium 1 TAB BID 11/10 1700 AC 11/12 (SENNA-S 50 MG/8.6 PO 12/10 165 0848 MG TABLET) Ondansetron HCl 4 MG Q6H PRN PRN 11/10 1130 AC 11/13 (ondansetron HCL) IV 12/10 1129 0818 Hormones And Synthetic Substit Sig/Morales Start time Last Medication Dose Route Stop Time Status Admin Methylprednisolone 20 MG Q8HR 11/13 0500 AC 11/13 Sodium Succinate IV 11/14 2101 1200 (Solu-MEDROL 40 MG/ ML) Insulin Human Lispro See Dose Q6HR 11/10 1800 AC 11/13 (HUMALOG) Insts (1) SUBQ 12/10 1759 1200 Tpn Carrier Sig/Morales Start time Last Medication Dose Route Stop Time Status Admin Dextrose/Water 50 ML ASDIR PRN 11/10 1415 CKD (DEXTROSE 50%-WATER) IV 12/10 1414 Dose Instructions:(1)Insulin Human Lispro (HUMALOG): S/SCALE LOW Allergies:Coded Allergies:No Known Allergies (09/22/22) Review of SystemsConstitutional:Denies: chills, fever. Respiratory:Denies: SOB, wheezing. Cardiovascular:Denies: chest pain, palpitations. GI:Reports: abdominal pain, nausea. Denies: constipation, diarrhea, hematemesis, hematochezia, melena, vomiting. Objective Physical ExamVS/I O:Last Documented: Result Date Time Pulse Ox 93 11/13 1103 B/P 152/75 11/13 1103 B/P Mean 100.6 11/13 1103 O2 Delivery Nasal cannula 11/13 110 Temp 99.0 11/13 1103 Pulse 105 11/13 1103 Resp 16 11/13 1103 FiO2 50 11/13 0904 O2 Flow Rate 25 11/13 0904 24 hour I O ending at 0700: 11/13 0700 11/12 1900 Intake Total 100 Output Total 800 Balance -700 Intake, Oral 100 Output, Urine 800 PATIENT WEIGHT: Weight (lb): 249Weight (oz): 9.01Weight (kg): 113.200 Medications:Active Meds + DC'd Last 24 HrsMetoclopramide HCl (METOCLOPRAMIDE HCL) 5 MG Q8H PRN PRN IV (UNV) Enoxaparin Sodium (LOVENOX 40MG SYRINGE) 40 MG DAILY SUBQ Potassium Chloride (K-DUR) 20 MEQ STAT STA PO (DC) Furosemide (LASIX 20MG Inj) 20 MG ONCE ONE IV (DC) Potassium Bicarbonate/Citric Acid (EFFER-K 20 MEQ) 20 MEQ ONCE ONE PO (DC) Methylprednisolone Sodium Succinate (Solu-MEDROL 40 MG/ML) 20 MG Q8HR IV Azithromycin (ZITHROMAX) 500 MG DAILY PO Midodrine (PROAMATINE 5MG TAB) 5 MG BID PO Enoxaparin Sodium (LOVENOX 40MG SYRINGE) 40 MG Q12HR SUBQ (DC) Atorvastatin Calcium (LIPITOR 20MG TAB) 20 MG DAILY PO Budesonide (PULMICORT RESPULES 0.25MG/2ML) 2 ML RTQ12H NEB (CKD) Insulin Human Lispro (HUMALOG) S/SCALE LOW Q6HR SUBQ Pantoprazole Sodium (PROTONIX) 40 MG BID PO Senna/Docusate Sodium (SENNA-S 50 MG/8.6 MG TABLET) 1 TAB BID PO Dextrose/Water (DEXTROSE 50%-WATER) 50 ML ASDIR PRN IV (CKD) Piperacillin Sod/Tazobactam Sod (ZOSYN) 3.375 G Q8H IV Sodium Chloride (SODIUM CHLORIDE 0.9%) 100 MLAlbuterol/Ipratropium (DUONEB) 3 ML RTQ4H INH Acetaminophen (TYLENOL) 650 MG Q4H PRN PRN PO Hydralazine HCl (APRESOLINE) 10 MG Q4H PRN PRN IV Ondansetron HCl (ondansetron HCL) 4 MG Q6H PRN PRN IV General appearance: obese, alert, awake, orientedHEENT: atraumatic, normocephalicNeck: no JVDCardiovascular: normal S1/S2, regular rate rhythmRespiratory: equal breath sounds, symmetric expansionAbdomen: tenderness (luq), normal bowel sounds, no distentionExtremities: decreased range of motionMusculoskeletal: decreased ROMNeuro/SET UP MECHANIC: alert, oriented X 3, no sensory deficitsSkin: dry, intactPsychiatry: not homicidal, not suicidal ResultsFindings/Data:Laboratory Tests 11/13/23 0508:[Embedded Image Not Available] 11/13/23 0507:[Embedded Image Not Available]Laboratory Tests 11/13 11/13 11/13 11/13 11/13 1105 0744 0543 0508 0505 Chemistry Sodium (136 - 145 mmol/L) 137 Potassium (3.5 - 5.1 mmol/L) 3.3 L Chloride (98 - 107 mmol/L) 98.0 Carbon Dioxide (21 - 32 mmol/L) 27.0 Anion Gap (10 - 20) 15.3 BUN (7 - 18 mg/dL) < 5 L Creatinine (0.7 - 1.3 mg/dL) 0.90 Glomerular Filtr Rate (>=60 mL/min) > 60 BUN/Creatinine Ratio (10 - 20) 5.5 L Glucose (74 - 106 mg/dL) 156 H POC Glucose (74 - 106 mg/dL) 262 H 231 H 169 H Calcium (8.5 - 10.1 mg/dL) 9.1 Phosphorus (2.5 - 4.9 mg/dL) 4.1 Magnesium (1.8 - 2.4 mg/dL) 1.3 L Total Bilirubin (0.0 - 1.0 mg/dL) 1.00 Direct Bilirubin (0.0 - 0.20 mg/dL) 0.50 H AST (15 - 37 IUnit/L) 206 H ALT (12 - 78 IUnit/L) 300 H Total Alk Phosphatase (45 - 117 IUnit/L) 75 Total Protein (6.4 - 8.2 gram/dL) 5.5 L Albumin (3.4 - 5.0 g/dL) 2.9 L Globulin (2.7 - 4.2 gram/dL) 2.6 L Albumin/Globulin Ratio (0.75 - 1.50) 1.1 11/12 11/12 2336 1606 Chemistry POC Glucose (74 - 106 mg/dL) 164 H 168 H Laboratory Tests 11/13 0507 Hematology WBC (4.5 - 12.5 K/mm3) 5.5 RBC (4.0 - 5.8 mill/mm3) 4.00 Hgb (13.0 - 17.5 gram/dL) 11.5 L Hct (42.0 - 52.0 %) 34.5 L MCV (80 - 98 fL) 86.3 MCH (27.0 - 33.0 picogram) 28.8 MCHC (33.0 - 36.0 gram/dL) 33.3 RDW (11.6 - 16.2 %) 12.6 RDW Std Deviation (37.0 - 51.0 fL) 39.2 Plt Count (150 - 450 K/mm3) 246 MPV (6.7 - 11.0 fL) 9.1 Neut % (Auto) (39.0 - 69.0 %) 43.9 Lymph % (Auto) (25.0 - 55.0 %) 36.3 [place] % (Auto) (0.0 - 10.0 %) 13.6 H Eos % (Auto) (0.0 - 5.0 %) 4.5 Baso % (Auto) (0.0 - 1.0 %) 1.5 H Neut # (Auto) (1.8 - 7.7 K/mm3) 2.42 Lymph # (Auto) (1.0 - 5.0 K/mm3) 2.00 [place] # (Auto) (0 - 0.8 K/mm3) 0.75 Eos # (Auto) (0.0 - 0.5 K/mm3) 0.25 Baso # (Auto) (0.0 - 0.2 K/mm3) 0.08 Nucleated RBC % (0 - 0 %) 0.0 Nucleated RBCs # (Man) (0.0 - 0.1 K/mm3) 0.00 Results: labs reviewed, vital signs reviewed, CT results reviewed Diagnosis, Assessment Plan Free Text DxA P NotesFree Text DxA P Notes:52-year-old male with a past medical history of obesity, sp NSTEMI with left heart cath x2 weeks, no stents noted, presents to the ED due to shortness of breath after experiencing a fall. During hospital course, patient was found to have acute respiratory failure secondary to pneumonia, treated with antibiotics. Patient continues to endorse persistent nausea, thus GI consulted. Upon visitation, patient reports experiencing persistent nausea x2 months with LUQ pain and reflux symptoms, denies recent vomiting, hematemesis, hematochezia,melena, f/c, denies taking any medications or lifestyle changes to help alleviate symptoms. Patient denies ever receiving EGD/Colonoscopy prior, does not follow up with GI physician. CT Abd pelvis w/out contrast show no acute intra-abdominal findings. Assessment:-Abdominal Pain with Nausea - suspect gerd vs gastritis vs gastric/duodenal ulcer-Anemia - Mild -patient denies recent GI bleed-Hx NSTEMI sp cath x2 weeks - on lovenox Plan:-Recommend Protonix BID-Low dose reglan - monitor for EPS-Should symptoms persist consider EGD during admission-Discussed lifestyle changes, patient confirmed understanding-Monitor H/H, transfuse if hgb <7.0-Monitor for acute GI bleed-IVF, antiemetics, pain management as needed at 1403 at 1536 RPT #:[id number] OF REPORTMCHnlbjsortksc7987-10-85U14:23:00V.PDOC2 [id number] for patient bkroLJQUSYIXCBMAHI4491-99-16L02:03:50 [facility] 2023-11-12 17:08:00 [id number] fdSz5DlgwVSXWDe4WSTAiD8+wDt0731-54-57W85:08:00 [facility] ([facility])Pulmonary Consultation NoteREPORT#:[id number] REPORT STATUS: SignedREPORT INITIALIZATION DATE:11/12/23 TIME: 1707 PATIENT: DANIEL LEHMAN UNIT #: [id number]#: [id number] ROOM/BED: [facility]-ADOB: [birth year] AGE: 52 SEX: M ATTEND: Lindsey Coyle MDADM AUTHOR: Jose Miguel Roca MDREPT SERVICE DT/TIME: 11/12/231707 * ALL edits or amendments must be made on the electronic/computer document * History of Present Illness HPIRequesting clinician: Dr Rosario for consult:HypoxiaChief complaint:Shortness of breathHPI:52-year-old male was transferred from outside facility to [facility] with shortness of breath patient is obese, never been diagnosed with obstructive sleep apnea. Patient was admitted from October 19 8 November 05, with hypercapnic respiratory failure-also had left heart cath which was normalCT chest reviewed it is showing possibility of aspiration versus resolving pneumonia may be mild pulmonary edema External record: Patient was recently admitted at [facility] from October 27 through November 05 with hypercapnic respiratory failure, unstable angina and NSTEMI. Per the notes the patient had a left heart cath which showed normal coronary arteries and patient was discharged in a stable condition. History - Adult longitudinalAdditional medical history:Diabetes mellitus type 2, hypertension, and GERDAdditional surgical history:Denies any history of surgeryFamily history:Reports: Diabetes, Hypertension. Alcohol use: Denies EtOH useDrug use: Denies recreational drugsSmoking status for patients 13 years old or older: Never SmokerAllergies:Coded Allergies:No Known Allergies (09/22/22) Review of SystemsRespiratory:Reports: SOB. Denies: wheezing. Cardiovascular:Reports: LAMBERT (dyspnea on exertion). Denies: chest pain. GI:Denies: nausea, vomiting. Objective Physical ExamVitals:Last Documented: Result Date Time Pulse Ox 96 11/12 2300 B/P 108/68 11/12 2300 B/P Mean 81.6 11/12 2300 Temp 98.8 11/12 230 Pulse 99 11/12 2300 Resp 17 11/12 2300 O2 Delivery High flow nasal cannula 11/12 1606 FiO2 50 11/12 0830 O2 Flow Rate 25 11/12 0830 General appearance: alert, awakeHead/eyes: atraumatic, normocephalicCardiovascular: regular rate rhythmRespiratory/chest: decreased breath soundsAbdomen: soft, non-tenderExtremities: no pedal edemaNeuro/SET UP MECHANIC: alert Diagnosis, Assessment Plan Free Text DxA P NotesFree Text DxA P Notes:52-year-old male obese previous history of admission due to hypercapnic respiratory failure. Patient was transferred here for further care-patient presented to the ER with vomiting. During his previous admission patient's leftheart cath was reported as normal.Patient is still requiring high flow nasal cannulaLikely reason for hypoxia could be aspiration pneumonitis versus mild pulmonary edema, possibility of inflammation due to aspiration pneumonitis Current problemsAcute hypoxic respiratory failureObesityPossible aspiration pneumonitis versus pulmonary edema PlanContinue IV Zosyn for possible aspiration pneumonitisI will give 1 dose of Lasix and see the response and possibility of weaning downthe oxygen.I will start the patient on low-dose Solu-MedrolWean oxygen as tolerated to keep the O2 sat more than or equal to 92%.Carbon dioxide/bicarbonate in BMP is not suggestive of obesity hypoventilation syndrome as it is within normal limits on admission.Patient likely has obstructive sleep apnea for which she will need outpatient sleep study Thank you for the consult at [address] [facility] #:[id number] OF REPORTRSKcrqdqwsbeiu2895-48-02V75:08:00V.PDOC2 [id number] for patient npjtPJRURTYMPPCKDS9784-83-28U26:18:51 [facility] 2023-11-12 12:26:00 [id number]/+ zBWw/8zXFPOzBAI1dxzVp48eaUdq8 WYQFFB4qqulVo1T62+NdAv1VHCb2550-98-71G57:26:00 [facility] ([facility]ITALHospitalist Progress NoteREPORT#:[id number] REPORT STATUS: SignedREPORT INITIALIZATION DATE:11/12/23 TIME: 122 PATIENT: DANIEL LEHMAN UNIT #: [id number]#: [id number] [address] [birth year] AGE: 52 SEX: M ATTEND: Lindsey Coyle MDADM AUTHOR: Lindsey Coyle MDREPT SERVICE DT/TIME: 11/12/23 1226 * ALL edits or amendments must be made on the electronic/computer document * SubjectiveChief complaint:Shortness of breath Free Text Subj NotesFree Text Subj Notes:Patient seen and examined at bedside. Review of Systems Free Text ROS NotesFree Text ROS Notes:CONSTITUTIONAL: Patient denies fevers, chills, sweats and weight changes.EYES: Patient denies any visual symptoms.EARS, NOSE, AND THROAT: No difficulties with hearing. No symptoms of rhinitis orsore throat.CARDIOVASCULAR: Patient denies chest pains, palpitations, orthopnea and paroxysmal nocturnal dyspnea.RESPIRATORY: reports shortness of breath, cough, and dyspnea on exertion. no wheezingGI: Reports nausea and vomiting. diarrhea, constipation, abdominal pain, hematochezia or melena.: No urinary hesitancy or dribbling. No nocturia or urinary frequency. No abnormal urethral discharge.MUSCULOSKELETAL: No myalgias or arthralgias.NEUROLOGIC: No chronic headaches, no seizures. Patient denies numbness, tinglingor weakness.PSYCHIATRIC: Patient denies problems with mood disturbance. No problems with anxiety.ENDOCRINE: No excessive urination or excessive thirst.DERMATOLOGIC: Patient denies any rashes or skin changes. Objective GeneralVS/I O:Vital Signs: Date Time Temp Pulse Resp B/P B/P Pulse O2 O2 Flow FiO2 Mean Ox Delivery Rate 11/12 1135 98.4 111 16 105/62 76.4 98 High flow nasal cannula /14 0819 98.2 115 16 100/67 77.7 92 High flow nasal cannula /14 0615 103 27 117/61 82 100 12/14 0600 103 28 119/65 80 100 12/14 0545 104 31 134/72 95 100 12/14 0530 104 31 133/73 96 100 /14 0515 101 30 124/69 90 100 /14 0500 104 31 116/60 83 100 12/14 0445 104 32 114/59 81 99 12/14 0430 106 31 116/56 98 12/14 0415 106 9 115/59 81 98 /14 0400 111 26 114/62 82 99 /14 0400 98.6 99 BiPAP /14 0345 104 35 121/69 89 99 /14 0330 104 30 117/64 85 99 /14 0315 106 31 108/59 81 99 /14 0300 105 32 121/58 81 96 /14 0245 105 32 115/57 81 97 /14 0230 106 29 115/55 77 96 /14 0215 106 28 114/59 82 97 /14 0200 103 28 120/61 84 97 /14 0145 108 28 101/56 73 99 /14 0130 106 29 109/55 76 96 /14 0115 107 31 115/58 80 96 /14 0100 108 32 113/59 81 95 /14 0045 108 31 117/55 82 96 /14 0031 101 100 50 /14 0030 101 21 135/66 93 100 /14 0015 24 135/67 95 100 /14 0000 100 24 126/62 86 100 /14 0000 98.5 100 BiPAP /13 2345 107 30 128/67 89 99 / 2330 117 40 134/72 97 100 / 2315 114 38 129/64 89 100 / 2300 109 12 135/67 94 100 / 2245 110 36 137/72 94 100 / 2230 108 35 140/69 99 100 / 2215 112 38 138/68 95 100 / 2212 112 28 146/74 98 100 / 2145 110 19 132/64 89 100 / 2130 115 12 138/58 91 100 / 2115 102 29 149/67 97 99 11/11 2100 105 26 128/60 86 100 11/11 2045 104 28 125/61 85 100 11/11 2030 100 28 124/62 85 100 11/11 2023 101 100 50 11/11 2023 100 50 11/11 2022 High flow 25 65 nasal cannula 11/11 2015 107 39 130/63 89 96 11/11 2000 102 32 122/59 83 95 11/11 2000 98.7 96 High flow 45 100 nasal cannula 11/11 1945 104 34 124/64 89 95 11/11 1930 109 34 116/60 80 95 11/11 1915 109 40 119/61 84 91 11/11 1900 111 35 115/59 80 99 11/11 1841 113 11/11 1841 113 40 95 11/11 1830 111 36 111/56 79 92 11/11 1815 111 18 110/58 80 95 11/11 1800 111 16 137/63 91 99 11/11 1745 104 29 122/55 81 99 11/11 1730 106 28 128/59 85 99 11/11 1715 107 28 123/57 81 96 11/11 1700 110 39 131/60 86 96 11/11 1645 116 40 130/51 85 95 11/11 1630 108 29 153/72 103 90 11/11 1615 101 28 134/55 79 94 11/11 1600 97.9 11/11 1600 102 34 114/56 78 98 11/11 1545 101 26 115/58 79 96 11/11 1530 106 31 112/55 79 100 11/11 1515 104 38 127/66 90 95 11/11 1500 107 38 122/64 84 96 11/11 1459 98.2 11/11 1445 108 35 98/57 73 100 11/11 1430 104 28 109/60 80 97 11/11 1415 107 17 109/59 80 95 11/11 1400 110 40 121/59 84 97 11/11 1345 103 31 126/61 85 99 11/11 1341 102 24 98 25 65 11/11 1330 104 35 126/63 89 96 11/11 1315 104 24 120/61 83 99 11/11 1300 104 33 138/67 94 95 11/11 1245 110 24 133/65 93 92 24 hour I O ending at 0700: 11/12 0700 11/11 1900 Intake Total 350.00 Output Total 350 Balance 0 Intake, IV 200.00 Intake, Oral 150 Output, Urine 350 Patient 113.2 kg 48.988 kg Weight Weight Bed scale Measurement Method PATIENT WEIGHT: Weight (lb): 249Weight (oz): 9.01Weight (kg): 113.200 Free Text Obj NotesFree Text Obj Notes:Physical ExamGeneral appearance: obese, alert, awake, oriented, no acute distress, conversationalHead/Eyes: atraumatic, clear cornea, EOMIENT: moist mucosal membranes, normal dentition, normal ear left, normal ear right, normal noseNeck: non-tender, no bruit/NL carotids, no JVD, no masses or swellingCardiovascular: normal capillary refill, normal heart sounds, tachycardic, no gallop, no murmur, no rubRespiratory: decrease breath sounds bibasilar, rhonchi, symmetric expansion, no crackles or wheezesAbdomen: non-tender, normal bowel sounds, soft, no distention, no guarding, no mass/organomegaly, no reboundExtremities: moves all, no clubbing, no cyanosis, no edemaMusculoskeletal: normal inspection, painless range of motion, no CVA tenderness,no muscle spasmNeuro/SET UP MECHANIC: alert, oriented X 3, CNII-XII intact, normal speech, no motor deficits, no sensory deficitsSkin: dry, intact, normal color, normal temperature, no rashLymphatics: axilla normal, inguinal normal, neck normal, no lymphadenopathyPsychiatry: normal affect, normal judgment/insight, normal mood, not homicidal, not suicidal Diagnosis, Assessment Plan Free Text DxA P NotesFree text DxA P notes:# Acute respiratory failure with hypoxemiasecondary to pneumoniaplaced on high flow oxygen vapotherm at 30L at FiO2 80%, wean down to Vapotherm 25 L fio2 65% pulmonary consultedadmitted to ICU #PneumoniaSuspect community-acquired pneumonia. Chest x-ray shows patchy left interstitial infiltrate.Cannot rule out multidrug-resistant organisms such as Pseudomonas given patient's recent hospitalization 1 week ago. Cover for Pseudomonas with IV Zosyn 3.375 mg every 8 hours #Acute renal failureSuspect VIN versus CKD stage IIIaAvoid nephrotoxic #Diabetes mellitus type 2-hgb A1C 5.5glucose checks AC and HSsliding scale insulin #HypertensionIV hydralazine 10mg q4hrs prn for SBP >170 or DBP >100 #HyperlipidemiaAtorvastatin 40 mg daily #TransaminitisSuspect due to fatty liver disease #AnemiaRule out iron deficiency #ObesityBMI 39.6Counseled the patient on need for weight loss with diet and daily exercise. 40 minutes of critical care time spent Quality: Gen Med Crit Care VTE ProphylaxisVTE prophylaxis initiated: yes (mechanical comp device) Current MedicationsCurrent medication review:I attest that the foregoing medication list in the medical record is true, accurate, and complete to the best of my knowledge. at 1242 RPT #:[id number] OF REPORTPRProgress [id number]:26:00V.[id number] able for patient cuhbXEGJKOLUNEAVOZ3859-07-21B73:42:23 [facility] 2023-11-12 04:41:00 [id number] ItOY2nRctIh6LwymyZwjRcKGygs2430-45-47C60:41:00423 4-0001 [facility] PATIENT NAME: DANIEL LEHMAN ADMIT DATE: 11/10/23ACCOUNT NO: [id number] ROOM NO: [facility] AGE: 52 REPORT TYPE: eNVL VENOUS ULTRASOUND SEX: M DATE OF : [birth year]ADMITTING PHYSICIAN:Lindsey Coyle MD ATTENDING PHYSICIAN:Lindsey Coyle MD *[facility]*[address] [place] [id number] Lower Extremity Venous Duplex Evaluation Patient: Steve Lehman Date: 3BP:URN: [id number]: [id number]#: [id number]: 1970Age: 52Gender: eight: 67 in / 170.2 cmWeight: 108 lb / 49 kgBMI/BSA: 16.9 kg/m 2 / 1.51 m 2*Ordering Physician: Meryl Hanson*Interpreting Physician: * Valerio Loza*Food Counter Worker: * Mirtha Bazzi Indications: RULE OUT DVT. Study data: Lower extremity venous duplex evaluation. Bilateral evaluationwith grayscale 2D imaging, color Doppler imaging, and spectral Doppleranalysis. Location: Bedside. Patient status: Inpatient. Patient roomnumber: S19-A. Procedure: A vascular evaluation was performed. The study wastechnically limited due to patient positioning and limited access to patient.Study status: Stat. Venous flow: + + +!Location !Properties !+ + +!R CFV !Phasic; spontaneous; normal augmentation; compressible !+ + + PATIENT NAME: DANIEL LEHMAN !R GSV !Phasic; spontaneous; normal augmentation; compressible !+ + +!R DFV !Phasic; spontaneous; normal augmentation; compressible !+ + +!R FV !Phasic; spontaneous; normal augmentation; compressible !+ + +!R popliteal!Phasic; spontaneous; normal augmentation; compressible !+ + +!R PTV !Phasic ; spontaneous; normal augmentation; compressible!+ + +!L CFV !Phasic; spontaneous; normal augmentation; compressible !+ + +!L GSV !Phasic; spontaneous; normal augmentation; compressible !+ + +!L DFV !Phasic; spontaneous; normal augmentation; compressible !+ + +!L FV !Phasic; spontaneous; normal augmentation; compressible !+ + +!L popliteal!Phasic; spontaneous; normal augmentation; compressible !+ + +!L PTV !Phasic; spontaneous; normal augmentation; compressible !+ + +*Velocities are expressed in cm/s, Diameters are expressed in cm Conclusions 1. There is no evidence of acute deep or superficial venous thrombosis noted in the right lower extremity.2. There is no evidence of acute deep or superficial venous thrombosis noted in the left lower extremity.Electronically signed by Wes Loza01/13/2023 04:41 at 0441 PATIENT NAME: DANIEL LEHMAN sukzlsq2322-64-62J76:41:00V.[id number] ilable for patient xqloFHTQNVKTSPWQYT9557-28-63R90:42:11 [facility] 2023-11-11 14:26:00 [id number] 96r2JCZAnGcbitvRN2qlDIhoDV05907-77-31Z79:26:00 [facility] ([facility])Hospitalist Progress NoteREPORT#:[id number] REPORT STATUS: SignedREPORT INITIALIZATION DATE:11/11/23 TIME: 1425 PATIENT: DANIEL LEHMAN UNIT #: [id number]#: [id number] [facility] AGE: 52 SEX: M ATTEND: Lindsey Coyle MDADM AUTHOR: Lindsey Coyle MDREPT SERVICE DT/TIME: 11/11/23 1426 * ALL edits or amendments must be made on the electronic/computer document * SubjectiveChief complaint:Shortness of breath Free Text Subj NotesFree Text Subj Notes:Patient seen lying in bed. Review of Systems Free Text ROS NotesFree Text ROS Notes:CONSTITUTIONAL: Patient denies fevers, chills, sweats and weight changes.EYES: Patient denies any visual symptoms.EARS, NOSE, AND THROAT: No difficulties with hearing. No symptoms of rhinitis orsore throat.CARDIOVASCULAR: Patient denies chest pains, palpitations, orthopnea and paroxysmal nocturnal dyspnea.RESPIRATORY: reports shortness of breath, cough, and dyspnea on exertion. no wheezingGI: Reports nausea and vomiting. diarrhea, constipation, abdominal pain, hematochezia or melena.: No urinary hesitancy or dribbling. No nocturia or urinary frequency. No abnormal urethral discharge.MUSCULOSKELETAL: No myalgias or arthralgias.NEUROLOGIC: No chronic headaches, no seizures. Patient denies numbness, tinglingor weakness.PSYCHIATRIC: Patient denies problems with mood disturbance. No problems with anxiety.ENDOCRINE: No excessive urination or excessive thirst.DERMATOLOGIC: Patient denies any rashes or skin changes. Objective GeneralVS/I O:Vital Signs: Date Time Temp Pulse Resp B/P B/P Pulse O2 O2 Flow FiO2 Mean Ox Delivery Rate 11/11 1341 102 24 98 25 65 11/11 0900 107 26 143/63 91 88 11/11 0845 108 35 115/65 85 100 11/11 0830 113 33 113/61 81 98 11/11 0817 111 25 100 25 65 11/11 0817 100 High flow 25 65 nasal cannula 11/11 0815 111 38 114/54 78 95 11/11 0800 High flow nasal cannula 11/11 0800 107 30 134/60 87 92 11/11 0745 111 32 127/58 83 97 11/11 0730 116 11/11 0730 115 48 130/63 90 91 11/11 0715 120 19 130/60 86 98 / 0700 112 / 0700 111 28 124/60 85 90 11/11 0515 122 35 111/55 76 97 11/11 0500 111 30 118/57 80 98 11/11 0445 109 29 133/66 92 99 11/11 0430 105 30 131/66 92 100 11/11 0415 109 29 118/58 81 99 11/11 0400 110 29 120/59 82 98 11/11 0400 99.5 97 Non 15 rebreather mask 11/11 0345 112 30 121/58 83 98 11/11 0330 113 31 117/59 80 97 11/11 0315 114 29 119/58 82 98 11/11 0300 113 28 112/58 81 99 11/11 0245 115 30 107/58 81 99 11/11 0240 113 34 98 30 80 11/11 0240 98 High flow 30 80 nasal cannula 11/11 0230 114 29 136/63 90 98 11/11 0215 108 24 134/63 90 100 11/11 0200 109 28 124/61 86 100 11/11 0145 110 30 124/61 85 99 11/11 0143 110 99 50 11/11 0130 112 37 122/63 85 100 11/11 0115 116 22 118/56 81 100 11/11 0100 117 33 110/57 79 83 11/11 0045 109 29 119/56 79 87 11/11 0030 110 16 111/52 75 88 11/11 0015 116 28 124/58 83 91 11/11 0000 112 33 120/58 84 94 11/11 0000 98.9 92 High flow 30 80 nasal cannula 11/10 2345 113 37 123/58 84 94 11/10 2330 113 11 125/59 84 96 11/10 2315 113 33 120/58 83 93 11/10 2300 118 45 120/56 82 95 11/10 2245 115 84 96 11/10 2230 117 35 120/59 85 96 11/10 2215 117 37 128/58 84 95 11/10 2200 116 36 125/57 82 93 11/10 2145 121 27 119/57 82 98 11/10 2130 118 10 125/60 86 95 11/10 2115 117 121/56 81 90 11/10 2100 119 34 121/56 81 92 11/105 119 23 117/54 78 94 11/10 2030 115 22 120/51 79 93 11/10 2015 115 127/60 87 92 11/10 2000 115 125/59 85 92 11/10 2000 99.2 96 High flow 30 80 nasal cannula 11/10 194 112 132/61 88 94 11/10 1930 120 30 121/65 86 99 12/12 1915 120 24 113/56 81 96 11/10 191 119 37 153/66 92 97 11/10 1900 117 25 113/58 82 98 11/10 1530 98.0 95 High flow nasal cannula 11/10 1510 112 18 95 30 80 11/10 1445 109 31 124/66 91 99 11/10 1430 113 32 119/55 81 97 24 hour I O ending at 0700: 11/11 0700 11/10 1900 Intake Total 700.00 Output Total 600 800 Balance 100.00 -800 Intake, IV 400.00 Intake, Oral 300 Output, Urine 600 800 Patient 49 kg 114.7 kg Weight Weight Bed scale Bed scale Measurement Method PATIENT WEIGHT: Weight (lb): 108Weight (oz): 0.42Weight (kg): 49.000 Free Text Obj NotesFree Text Obj Notes:Physical ExamGeneral appearance: obese, alert, awake, oriented, no acute distress, conversationalHead/Eyes: atraumatic, clear cornea, EOMIENT: moist mucosal membranes, normal dentition, normal ear left, normal ear right, normal noseNeck: non-tender, no bruit/NL carotids, no JVD, no masses or swellingCardiovascular: normal capillary refill, normal heart sounds, tachycardic, no gallop, no murmur, no rubRespiratory: decrease breath sounds bibasilar, rhonchi, symmetric expansion, no crackles or wheezesAbdomen: non-tender, normal bowel sounds, soft, no distention, no guarding, no mass/organomegaly, no reboundExtremities: moves all, no clubbing, no cyanosis, no edemaMusculoskeletal: normal inspection, painless range of motion, no CVA tenderness,no muscle spasmNeuro/SET UP MECHANIC: alert, oriented X 3, CNII-XII intact, normal speech, no motor deficits, no sensory deficitsSkin: dry, intact, normal color, normal temperature, no rashLymphatics: axilla normal, inguinal normal, neck normal, no lymphadenopathyPsychiatry: normal affect, normal judgment/insight, normal mood, not homicidal, not suicidal Diagnosis, Assessment Plan Free Text DxA P NotesFree text DxA P notes:# Acute respiratory failure with hypoxemiasecondary to pneumoniaplaced on high flow oxygen vapotherm at 30L at FiO2 80%, wean down to Vapotherm 25 L fio2 65% pulmonary consultedadmitted to ICU #PneumoniaSuspect community-acquired pneumonia. Chest x-ray shows patchy left interstitial infiltrate.Cannot rule out multidrug-resistant organisms such as Pseudomonas given patient's recent hospitalization 1 week ago. Cover for Pseudomonas with IV Zosyn 3.375 mg every 8 hours #Acute renal failureSuspect VIN versus CKD stage IIIaAvoid nephrotoxic #Diabetes mellitus type 2Check hgb H2Mymqlxrp checks AC and HSsliding scale insulin #HypertensionIV hydralazine 10mg q4hrs prn for SBP >170 or DBP >100 #HyperlipidemiaAtorvastatin 40 mg daily #TransaminitisSuspect due to fatty liver disease #AnemiaRule out iron deficiency #ObesityBMI 39.6Counseled the patient on need for weight loss with diet and daily exercise. 40 minutes of critical care time spent Quality: Gen Med Crit Care VTE ProphylaxisVTE prophylaxis initiated: yes (mechanical comp device) Current MedicationsCurrent medication review:I attest that the foregoing medication list in the medical record is true, accurate, and complete to the best of my knowledge. at 1427 RPT #:[id number] OF REPORTPRProgress [id number]:26:00V.[id number] able for patient jltzHMWADOSTVQLRZO6165-99-30B26:28:04 [facility] 2023-11-11 13:10:00 [id number] EPXi/7GBTqk6piMLbD9BVpW2T6ubW KIJYPmqiZj5m5r1fMJYbYOTIyjv3232-40-96O11:10:00 [facility] ([facility]ITALCritical Care Progress NoteREPORT#:[id number] REPORT STATUS: SignedREPORT INITIALIZATION DATE:11/11/23 TIME: 1310 PATIENT: DANIEL LEHMAN UNIT #: [id number]#: [id number] [facility] AGE: 52 SEX: M ATTEND: Lindsey Coyle MDADM AUTHOR: Meryl Rey MDREPT SERVICE DT/TIME: 11/11/23 1310 * ALL edits or amendments must be made on the electronic/computer document * SubjectiveChief complaint:shortness of breathHPI:This is a 52-year-old morbidly obese male who was transferred from an outside facility. Patient was recently admitted at [facility] from October 27 through November 05 with hypercapnic respiratory failure, unstable angina and NSTEMI. Per the notes the patient had a left heart cath which showed normal coronary arteries and patient was discharged in a stable condition. Per patienthe has been having nausea and vomiting since discharge. He vomited multiple times today. Had complaints of worsening shortness of breath and had a fall athome after which he was taken to the ER. And brought to the ICU, the patient is awake and alert. Denies any shortness ofbreath. He is on Vapotherm 20 L 50%. Denies any abdominal pain or urinary complaint. No history of recent fever or chills. Review of SystemsConstitutional:Denies: chills, fatigue, fever, generalized weakness, lethargy, malaise. Respiratory:Reports: LAMBERT (dyspnea on exertion). Denies: hemoptysis, non productive cough, parox nocturnal dyspnea, pleurisy, pleuritic pain, pneumonia. Cardiovascular:Reports: LAMBERT (dyspnea on exertion). Denies: chest pain, edema, orthopnea, palpitations, parox nocturnal dyspnea. GI:Denies: abdominal pain, anorexia, constipation, diarrhea, dysphagia. Neuro:Denies: bladder dysfunction, bowel dysfunction. Objective GeneralVS/I OLast Documented: Result Date Time Pulse Ox 88 11/11 900 B/P 143/63 11/11 900 B/P Mean 91 11/11 900 Pulse 107 11/11 09 Resp 26 11/11 900 FiO2 65 11/11 817 O2 Flow Rate 25 11/11 817 O2 Delivery High flow nasal cannula 11/11 817 Temp 99.5 11/11 0400 24 hour I O ending at 0700: 11/11 0700 11/10 1900 Intake Total 700.00 Output Total 600 800 Balance 100.00 -800 Intake, IV 400.00 Intake, Oral 300 Output, Urine 600 800 Patient 49 kg 114.7 kg Weight Weight Bed scale Bed scale Measurement Method PATIENT WEIGHT: Weight (lb): 108Weight (oz): 0.42Weight (kg): 49.000 Medications:Active Meds + DC'd Last 24 HrsMidodrine (PROAMATINE 5MG TAB) 5 MG BID PO Enoxaparin Sodium (LOVENOX 40MG SYRINGE) 40 MG Q12HR SUBQ Atorvastatin Calcium (LIPITOR 20MG TAB) 20 MG DAILY PO Potassium Chloride/Water (POTASSIUM CHLORIDE) 100 ML Q2H IV (DC) Budesonide (PULMICORT RESPULES 0.25MG/2ML) 2 ML RTQ12H NEB (CKD) Insulin Human Lispro (HUMALOG) S/SCALE LOW Q6HR SUBQ Mupirocin (BACTROBAN 2% OINTMENT) 1 APPLIC BID NASAL Pantoprazole Sodium (PROTONIX) 40 MG BID PO Senna/Docusate Sodium (SENNA-S 50 MG/8.6 MG TABLET) 1 TAB BID PO Dextrose/Water (DEXTROSE 50%-WATER) 50 ML ASDIR PRN IV (CKD) Azithromycin (ZITHROMAX) 500 MG Q24H IV Sodium Chloride (SODIUM CHLORIDE 0.9%) 250 MLCeftriaxone Sodium (ROCEPHIN) 1,000 MG Q24H IV (DC) Sodium Chloride (SODIUM CHLORIDE 0.9% PF) 10 MLPiperacillin Sod/Tazobactam Sod (ZOSYN) 3.375 G Q8H IV Sodium Chloride (SODIUM CHLORIDE 0.9%) 100 MLNorepinephrine/Dextrose (LEVOPHED 4 MG/250 ML D5W) 250 ML TITRATE IV Albuterol/Ipratropium (DUONEB) 3 ML RTQ4H INH Acetaminophen (TYLENOL) 650 MG Q4H PRN PRN PO Dextrose/Water (DEXTROSE 50%-WATER) 50 ML ASDIR PRN IV (DC) Hydralazine HCl (APRESOLINE) 10 MG Q4H PRN PRN IV Ondansetron HCl (ondansetron HCL) 4 MG Q6H PRN PRN IV Dietitian nutrition assessmentThe data set between the solid lines has been imported from the dietitian's assessment. BMI Calculated: 16.9Nutrition related diagnosis: Nutrition diagnosis details: Nutrition problem: Nutrition etiology: Nutrition signs and symptoms: Nutrition prescription: Dietitian name: Assessment completed: Physical ExamGeneral appearance: alert, awake, orientedNeck: full range of motion, non-tenderCardiovascular: normal capillary refill, normal heart sounds, regular rate and rhythmRespiratory: decreased breath soundsAbdomen: soft, non-tender, normal bowel soundsExtremities: moves all, no clubbing, no cyanosis, no edemaNeuro/SET UP MECHANIC: alert, oriented X 3 ResultsFindings/data:Laboratory Tests 11/10 1418 Blood Gas Puncture Site Rt BRACHIAL ARTERY ABG pH (7.35 - 7.45) 7.34 L ABG pCO2 (35 - 45 mm Hg) 44.1 ABG pO2 (80 - 100 mmHg) 70.8 L ABG HCO3 (23.0 - 27.0 mmol/L) 23.1 ABG O2 Saturation (90.0 - 98.0 %) 92.9 ABG Base Excess (-3.0 - 5.0 mmol/L) -2.7 ABG Hematocrit (42 - 52 %) 38 L Andrea Test (PERFORMED CHECK) Yes Hgb O2 Saturation (94.00 - 98.00 %) 92.1 L Carboxyhemoglobin (0.5 - 1.5 %totalHg) 0.3 *L Methemoglobin (0.0 - 1.50 %) 0.6 Total Hemoglobin (13.0 - 17.5 gram/dL) 12.9 L Oxygen Content (18.0 - 22.0 % vol) 16.7 L Sodium (135 - 148 mEq/L) 135.6 Potassium (3.5 - 4.5 mEq/L) 3.2 L Chloride (98 - 106 mEq/L) 100 Glucose (74 - 99 mg/dL) 169 H Ionized Calcium (1.1 - 1.37 mmol/L) 1.18 Patient On Oxygen Arterial FiO2 80.0 Laboratory Tests 11/11 11/11 11/11 11/11 11/10 1141 0524 0044 0001 1813 Chemistry Sodium (136 - 145 mmol/L) 137 Potassium (3.5 - 5.1 mmol/L) 3.1 L Chloride (98 - 107 mmol/L) 99.0 Carbon Dioxide (21 - 32 mmol/L) 28.0 Anion Gap (10 - 20) 13.1 BUN (7 - 18 mg/dL) < 5 L Creatinine (0.7 - 1.3 mg/dL) 1.20 Glomerular Filtr Rate (>=60 mL/min) > 60 BUN/Creatinine Ratio (10 - 20) 4.1 L Glucose (74 - 106 mg/dL) 184 H POC Glucose (74 - 106 mg/dL) 194 H 151 H 176 H Calcium (8.5 - 10.1 mg/dL) 8.7 Phosphorus (2.5 - 4.9 mg/dL) 3.5 Magnesium (1.8 - 2.4 mg/dL) 1.7 L Total Bilirubin (0.0 - 1.0 mg/dL) 0.80 AST (15 - 37 IUnit/L) 195 H ALT (12 - 78 IUnit/L) 205 H Total Alk Phosphatase (45 - 117 IUnit/L) 69 Troponin I (0 - 54 pg/mL) 12.600 Total Protein (6.4 - 8.2 gram/dL) 6.3 L Albumin (3.4 - 5.0 g/dL) 3.4 Globulin (2.7 - 4.2 gram/dL) 2.9 Albumin/Globulin Ratio (0.75 - 1.50) 1.2 11/10 11/10 1704 1450 Chemistry POC Glucose (74 - 106 mg/dL) 158 H Troponin I (0 - 54 pg/mL) 12.990 Laboratory Tests 11/11 0044 Hematology WBC (4.5 - 12.5 K/mm3) 5.1 RBC (4.0 - 5.8 mill/mm3) 3.90 L Hgb (13.0 - 17.5 gram/dL) 11.3 L Hct (42.0 - 52.0 %) 34.3 L MCV (80 - 98 fL) 87.9 MCH (27.0 - 33.0 picogram) 29.0 MCHC (33.0 - 36.0 gram/dL) 32.9 L RDW (11.6 - 16.2 %) 13.1 RDW Std Deviation (37.0 - 51.0 fL) 42.1 Plt Count (150 - 450 K/mm3) 211 MPV (6.7 - 11.0 fL) 9.1 Neut % (Auto) (39.0 - 69.0 %) 60.3 Lymph % (Auto) (25.0 - 55.0 %) 26.0 [place] % (Auto) (0.0 - 10.0 %) 9.8 Eos % (Auto) (0.0 - 5.0 %) 2.3 Baso % (Auto) (0.0 - 1.0 %) 1.2 H Neut # (Auto) (1.8 - 7.7 K/mm3) 3.08 Lymph # (Auto) (1.0 - 5.0 K/mm3) 1.33 [place] # (Auto) (0 - 0.8 K/mm3) 0.50 Eos # (Auto) (0.0 - 0.5 K/mm3) 0.12 Baso # (Auto) (0.0 - 0.2 K/mm3) 0.06 Nucleated RBC % (0 - 0 %) 0.0 Nucleated RBCs # (Man) (0.0 - 0.1 K/mm3) 0.00 Laboratory Tests 11/10 1535 Other Body Source POC Nasal Influenza A (Negative) Negative POC Nasal Influenza B (Negative) Negative Laboratory Tests 11/11/23 0044:[Embedded Image Not Available]Microbiology:11/10 173 BLOOD: Blood Culture - RECD101/11 1736 BLOOD: Blood Culture - RECD101/11 1457 NASAL: MRSA Screen - UNV Ymyeeak35/12 1457 BLOOD: Blood Culture - RECD101/11 1457 BLOOD: Blood Culture - RECD101/11 1400 NASAL: MRSA Screen - CAN Cancelled: Duplicate order, test already ordered. Spec #:[id number] Diagnosis, Assessment PlanFree text A P:History of Present Illness:This is a 52-year-old morbidly obese male who was transferred from an outside facility. Patient was recently admitted at [facility] from October 27 through November 05 with hypercapnic respiratory failure, unstable angina and NSTEMI. Per the notes the patient had a left heart cath which showed normal coronary arteries and patient was discharged in a stable condition. Per patienthe has been having nausea and vomiting since discharge. He vomited multiple times today. Had complaints of worsening shortness of breath and had a fall athome after which he was taken to the ER. And brought to the ICU, the patient is awake and alert. Denies any shortness ofbreath. He is on Vapotherm 20 L 50%. Denies any abdominal pain or urinary complaint. No history of recent fever or chills. 11/11/23-on Vapotherm 25 L 65%. Patient denies any shortness of breath. No cough or fever. Ultrasound lower extremity venous Doppler pending. Echo shows grade 1 diastolic dysfunction. Consult Pulmonary. Hospital Course: - Admitted to ICU Active Problems:# Acute hypoxic respiratory failure?? PneumoniaStart Zosyn empiricallyBreathing treatment with DuoNeb and PulmicortAvoid sedativeGet sputum culture and blood cultureCT chest at the outside facility showed no emboli or any suspicious findings.echo-grade1 diastolic dysfunction #CHAPARRO/OHSBiPAP as needed at night #nausea/vometingCT abdomen pelvis did not show any acute changesZofran p.o.Keep n.p.o. # NSTEMIUnstable anginaECHO as aboveContinue home meds # HypotensionNow off pressorsstart low dose midodrine #S/P FALLCT Head did not show any acute changes Comorbidities:Hypoxic hypercapnic respiratory failure ICU Patient Safety Checklist: - Diet: cardiac diet- Bowel regimen: Senna/Colace- Accuchecks Q: q 6- Antibiotics de-escalation/discontinuation (if no, reason): Zosyn- Home meds resumed: except - Ulcer prophylaxis (discontinue if on diet): Protonix- DVT prophylaxis: SCD, - Taylor: - Lines: PIV- Wounds or pressure ulcer present on admission: - Next of kin: TBD- Code status: Full code- Disposition: [facility] Critical care time: 40 minutes, excluding procedures, was spent directly evaluating the patient at the bedside, interpreting labs and imaging, ordering new labs and medications, and discussing the case with the ICU multidisciplinaryteam, consultants and admitting teams. Quality: Gen Med Crit Care VTE ProphylaxisVTE prophylaxis initiated: yes (mechanical comp device) Current MedicationsCurrent medication review:I attest that the foregoing medication list in the medical record is true, accurate, and complete to the best of my knowledge. at 1345 RPT #:[id number] OF REPORTPRProgress [id number]:10:00V.[id number] able for patient kpjlKRHEYUCNVHUUGF5225-54-99J85:45:55 [facility] 2023-11-11 09:01:00 [id number]lNs MDf+6g1MfVLyErXx808zdFpTxnA6976-76-69L76:01:92861 3-0009 [facility] PATIENT NAME: DANIEL LEHMAN ADMIT DATE: 11/10/23ACCOUNT NO: [id number] ROOM NO: VS19 AGE: 52 REPORT TYPE: eECHOCARDIOGRAM REPORT SEX: M DATE OF : 72ADMITTING PHYSICIAN:Jeremias Ibarra MD ATTENDING PHYSICIAN:Jeremias Ibarra MD *[facility]*[address] [place] [id number] Transthoracic Echocardiogram Patient: Tegan Lehmanudmalika Date: 3BP:URN: [id number]: [id number]#: [id number]: 1970Age: 52Gender: MHeight: 67 in / 170.2 cmWeight: 253.5 lb / 115 kgBMI/BSA: 39.7 kg/m 2 / 2.39 m 2*Ordering Physician: * Meryl Rey *Interpreting Physician: * Judy Grey MD*Food Counter Worker: * Donovan Rudd Than Indications: Hypotensive. Study data: Transthoracic echocardiogram. Complete 2D, complete spectralDoppler, and color Doppler. Location: Bedside. Patient status: Inpatient.Patient room number: s19. Study status: Stat. Findings Left ventricle: The cavity size is normal. Wall thickness is mildlyincreased. Systolic function is normal. The estimated ejection fraction is55-60%. Although no diagnostic regional wall motion abnormality is identified,this possibility cannot be completely excluded on the basis of this study.Grade I diastolic dysfunction.Right ventricle: The cavity size is normal. Systolic function is normal.Left atrium: The atrium is normal in size. PATIENT NAME: DANIEL LEHMAN Right atrium: The atrium is normal in size.Aorta:Aortic root: The root is normal-sized.Aortic valve: The valve is structurally normal. The valve is trileaflet.There is no evidence of stenosis. There is no regurgitation.Mitral valve: The valve is structurally normal. There is no evidence ofstenosis. There is no regurgitation.Tricuspid valve: The valve is structurally normal. There is mildregurgitation.Pulmonic valve: The annulus is normal-sized. There is no regurgitation.Pericardium: There is no pericardial effusion.Pulmonary arteries: Not well visualized.Systemic veins:Inferior vena cava: The IVC is normal-sized. Measurements Left ventricle Value Ref TERRENCE, LAX 4.6 cm 4.2 - 5.8 ESD, LAX 2.7 cm 2.5 - 4.0 FS, LAX 40 % 25 - 43 IVS, ED 1.2 cm 0.6 - 1.0 PW, ED 1.2 cm 0.6 - 1.0 IVS/PW, ED 1 --------- EF 71 % 52 - 72 E', lat mary kate, TDI 8.6 cm/sec >=10.0 E/e', lat mary kate, TDI 14 <=13 LVOT Value Ref Diam, S 2.02 cm --------- Area 3.2 cm 2 --------- Peak ramez, S 1.38 m/sec --------- Mean ramez, S 1.1 m/sec --------- VTI, S 23.2 cm --------- Peak grad, S 8 mm Hg --------- Mean grad, S 5 mm Hg --------- SV 74 ml --------- Qs 21.04 L/min --------- Qs/bsa 8.8 L/(min-m 2) --------- SV/bsa 31 ml/m 2 --------- Right ventricle Value Ref TERRENCE, LAX 2.9 cm --------- ESD, SAX 2.9 cm --------- Pressure, S 41 mm Hg --------- Left atrium Value Ref AP dim, ES 3.9 cm 3.0 - 4.0 AP dim, ES MM 3.1 cm 3.0 - 4.0 LA/Ao root ratio, MM 0.86 --------- Aortic valve Value Ref Leaflet sep, MM 2.08 cm --------- PATIENT NAME: DANIEL LEHMAN Peak v, S 1.9 m/sec --------- Mean v, S 1.5 m/sec --------- VTI, S 27.0 cm --------- Mean grad, S 10 mm Hg --------- Peak grad, S 14.6 mm Hg --------- LVOT/AV, VTI ratio 0.86 --------- KANCHAN, VTI 2.75 cm 2 --------- LVOT/AV, Vpeak ratio 0.72 --------- KANCHAN, Vmax 2.31 cm 2 --------- Mitral valve Value Ref E-septal separation 0.4 cm --------- Peak E 1.21 m/sec --------- Peak A 1.3 m/sec --------- Decel time 178 ms --------- Peak grad, D 5.8 mm Hg --------- Peak E/A ratio 0.93 --------- Tricuspid valve Value Ref TR peak v 3.1 m/sec <=2.8 Peak RV-RA grad, S 38 mm Hg --------- Aortic root Value Ref Root diam, ED MM 3.6 cm --------- Ascending aorta Value Ref AAo AP diam, S 2.6 cm --------- Pulmonary artery Value Ref Pressure, S 29.7 mm Hg --------- Systemic veins Value Ref Estimated CVP 3 mm Hg --------- Conclusions Summary: Left ventricle: The cavity size is normal. Wall thickness is mildlyincreased. Systolic function is normal. The estimated ejection fraction is55-60%. Although no diagnostic regional wall motion abnormality is identified,this possibility cannot be completely excluded on the basis of this study.Grade I diastolic dysfunction.Electronically signed by Judy Grey MD11/11/2023 09:01 at 0901 PATIENT NAME: DANIEL LEHMAN :01:0 0V.[id number] for patient [id number]:01:37 [facility] 2023-11-11 08:15:00 [id number] [id number]8-07K86:15:00 [facility] ([facility])Critical Care Progress NoteREPORT#:[id number] REPORT STATUS: SignedREPORT INITIALIZATION DATE:11/11/23 TIME: 814 PATIENT: DANIEL LEHMAN UNIT #: [id number]#: [id number] [facility] AGE: 52 SEX: M ATTEND: Lindsey Coyle AUTHOR: Meryl Rey MDREPT SERVICE DT/TIME: 11/11/23 0815 * ALL edits or amendments must be made on the electronic/computer document * SubjectiveChief complaint:shortness of breathHPI:This is a 52-year-old morbidly obese male who was transferred from an outside facility. Patient was recently admitted at [facility] from October 27 through November 05 with hypercapnic respiratory failure, unstable angina and NSTEMI. Per the notes the patient had a left heart cath which showed normal coronary arteries and patient was discharged in a stable condition. Per patienthe has been having nausea and vomiting since discharge. He vomited multiple times today. Had complaints of worsening shortness of breath and had a fall athome after which he was taken to the ER. And brought to the ICU, the patient is awake and alert. Denies any shortness ofbreath. He is on Vapotherm 20 L 50%. Denies any abdominal pain or urinary complaint. No history of recent fever or chills. Review of SystemsConstitutional:Denies: chills, fatigue, fever, generalized weakness, lethargy, malaise. Respiratory:Denies: LAMBERT (dyspnea on exertion), hemoptysis, non productive cough, parox nocturnal dyspnea, pleurisy, pleuritic pain. Cardiovascular:Denies: chest pain, LAMBERT (dyspnea on exertion), edema, orthopnea, palpitations. GI:Denies: abdominal pain, anorexia, constipation, diarrhea, dysphagia. Neuro:Denies: bladder dysfunction, bowel dysfunction. Objective GeneralVS/I OLast Documented: Result Date Time Pulse Ox 97 11/11 515 B/P 111/55 11/11 515 B/P Mean 76 11/11 515 Pulse 122 11/11 515 Resp 35 11/11 515 O2 Delivery Non rebreather mask 11/11 040 O2 Flow Rate 15 11/11 0400 Temp 99.5 11/11 040 FiO2 80 11/11 0240 24 hour I O ending at 0700: 11/11 0700 11/10 1900 Intake Total 700.00 Output Total 600 800 Balance 100.00 -800 Intake, IV 400.00 Intake, Oral 300 Output, Urine 600 800 Patient 49 kg 114.7 kg Weight Weight Bed scale Bed scale Measurement Method PATIENT WEIGHT: Weight (lb): 108Weight (oz): 0.42Weight (kg): 49.000 Medications:Active Meds + DC'd Last 24 HrsAtorvastatin Calcium (LIPITOR 20MG TAB) 20 MG DAILY PO Potassium Chloride/Water (POTASSIUM CHLORIDE) 100 ML Q2H IV (DC) Budesonide (PULMICORT RESPULES 0.25MG/2ML) 2 ML RTQ12H NEB (CKD) Insulin Human Lispro (HUMALOG) S/SCALE LOW Q6HR SUBQ Mupirocin (BACTROBAN 2% OINTMENT) 1 APPLIC BID NASAL Mupirocin (BACTROBAN 2% OINTMENT) 1 APPLIC BID NASAL (CAN) Pantoprazole Sodium (PROTONIX) 40 MG BID PO Senna/Docusate Sodium (SENNA-S 50 MG/8.6 MG TABLET) 1 TAB BID PO Dextrose/Water (DEXTROSE 50%-WATER) 50 ML ASDIR PRN IV (CKD) Azithromycin (ZITHROMAX) 500 MG Q24H IV Sodium Chloride (SODIUM CHLORIDE 0.9%) 250 MLCeftriaxone Sodium (ROCEPHIN) 1,000 MG Q24H IV (DC) Sodium Chloride (SODIUM CHLORIDE 0.9% PF) 10 MLPiperacillin Sod/Tazobactam Sod (ZOSYN) 3.375 G Q8H IV Sodium Chloride (SODIUM CHLORIDE 0.9%) 100 MLNorepinephrine/Dextrose (LEVOPHED 4 MG/250 ML D5W) 250 ML TITRATE IV Albuterol/Ipratropium (DUONEB) 3 ML RTQ4H INH Acetaminophen (TYLENOL) 650 MG Q4H PRN PRN PO Dextrose/Water (DEXTROSE 50%-WATER) 50 ML ASDIR PRN IV (DC) Hydralazine HCl (APRESOLINE) 10 MG Q4H PRN PRN IV Ondansetron HCl (ondansetron HCL) 4 MG Q6H PRN PRN IV Dietitian nutrition assessmentThe data set between the solid lines has been imported from the dietitian's assessment. BMI Calculated: 16.9Nutrition related diagnosis: Nutrition diagnosis details: Nutrition problem: Nutrition etiology: Nutrition signs and symptoms: Nutrition prescription: Dietitian name: Assessment completed: Physical ExamGeneral appearance: alert, awake, orientedNeck: full range of motion, non-tenderCardiovascular: normal capillary refill, normal heart sounds, regular rate and rhythmRespiratory: decreased breath soundsAbdomen: soft, non-tender, normal bowel soundsExtremities: moves all, no clubbing, no cyanosis, no edemaNeuro/SET UP MECHANIC: alert, oriented X 3 ResultsFindings/data:Laboratory Tests 11/10 1418 Blood Gas Puncture Site Rt BRACHIAL ARTERY ABG pH (7.35 - 7.45) 7.34 L ABG pCO2 (35 - 45 mm Hg) 44.1 ABG pO2 (80 - 100 mmHg) 70.8 L ABG HCO3 (23.0 - 27.0 mmol/L) 23.1 ABG O2 Saturation (90.0 - 98.0 %) 92.9 ABG Base Excess (-3.0 - 5.0 mmol/L) -2.7 ABG Hematocrit (42 - 52 %) 38 L Andrea Test (PERFORMED CHECK) Yes Hgb O2 Saturation (94.00 - 98.00 %) 92.1 L Carboxyhemoglobin (0.5 - 1.5 %totalHg) 0.3 *L Methemoglobin (0.0 - 1.50 %) 0.6 Total Hemoglobin (13.0 - 17.5 gram/dL) 12.9 L Oxygen Content (18.0 - 22.0 % vol) 16.7 L Sodium (135 - 148 mEq/L) 135.6 Potassium (3.5 - 4.5 mEq/L) 3.2 L Chloride (98 - 106 mEq/L) 100 Glucose (74 - 99 mg/dL) 169 H Ionized Calcium (1.1 - 1.37 mmol/L) 1.18 Patient On Oxygen Arterial FiO2 80.0 Laboratory Tests 11/11 11/11 11/11 11/10 11/10 0524 0044 0001 1813 1704Chemistry Sodium (136 - 145 mmol/L) 137 Potassium (3.5 - 5.1 mmol/L) 3.1 L Chloride (98 - 107 mmol/L) 99.0 Carbon Dioxide (21 - 32 mmol/L) 28.0 Anion Gap (10 - 20) 13.1 BUN (7 - 18 mg/dL) < 5 L Creatinine (0.7 - 1.3 mg/dL) 1.20 Glomerular Filtr Rate (>=60 mL/min) > 60 BUN/Creatinine Ratio (10 - 20) 4.1 L Glucose (74 - 106 mg/dL) 184 H POC Glucose (74 - 106 mg/dL) 151 H 176 H 158 H Calcium (8.5 - 10.1 mg/dL) 8.7 Phosphorus (2.5 - 4.9 mg/dL) 3.5 Magnesium (1.8 - 2.4 mg/dL) 1.7 L Total Bilirubin (0.0 - 1.0 mg/dL) 0.80 AST (15 - 37 IUnit/L) 195 H ALT (12 - 78 IUnit/L) 205 H Total Alk Phosphatase (45 - 117 69IUnit/L) Troponin I (0 - 54 pg/mL) 12.600 Total Protein (6.4 - 8.2 gram/dL) 6.3 L Albumin (3.4 - 5.0 g/dL) 3.4 Globulin (2.7 - 4.2 gram/dL) 2.9 Albumin/Globulin Ratio (0.75 - 1.50) 1.2 11/10 11/10 11/10 11/10 1450 1123 1123 1122 Chemistry Sodium (136 - 145 mmol/L) 139 Potassium (3.5 - 5.1 mmol/L) 3.5 Chloride (98 - 107 mmol/L) 102.0 Carbon Dioxide (21 - 32 mmol/L) 26.0 Anion Gap (10 - 20) 14.5 BUN (7 - 18 mg/dL) 9 Creatinine (0.7 - 1.3 mg/dL) 1.70 H Glomerular Filtr Rate (>=60 mL/min) 48 BUN/Creatinine Ratio (10 - 20) 5.2 L Glucose (74 - 106 mg/dL) 172 H Lactic Acid (0.4 - 1.9 mmol/L) 0.8 Calcium (8.5 - 10.1 mg/dL) 8.5 Total Bilirubin (0.0 - 1.0 mg/dL) 0.80 AST (15 - 37 IUnit/L) 50 H ALT (12 - 78 IUnit/L) 115 H Total Alk Phosphatase (45 - 117 IUnit/L) 70 Troponin I (0 - 54 pg/mL) 12.990 B-Natriuretic Peptide (0 - 100 pgram/mL) 19.6 Total Protein (6.4 - 8.2 gram/dL) 5.9 L Albumin (3.4 - 5.0 g/dL) 3.4 Globulin (2.7 - 4.2 gram/dL) 2.5 L Albumin/Globulin Ratio (0.75 - 1.50) 1.4 Laboratory Tests 11/10 1123 Coagulation INR (0.8 - 1.2) 1.1 PT Patient/Control Mix (10.0 - 14.0 seconds) 12.6 Laboratory Tests 11/11 11/10 0044 1123 Hematology WBC (4.5 - 12.5 K/mm3) 5.1 7.0 RBC (4.0 - 5.8 mill/mm3) 3.90 L 3.98 L Hgb (13.0 - 17.5 gram/dL) 11.3 L 11.6 L Hct (42.0 - 52.0 %) 34.3 L 35.4 L MCV (80 - 98 fL) 87.9 88.9 MCH (27.0 - 33.0 picogram) 29.0 29.1 MCHC (33.0 - 36.0 gram/dL) 32.9 L 32.8 L RDW (11.6 - 16.2 %) 13.1 12.9 RDW Std Deviation (37.0 - 51.0 fL) 42.1 41.6 Plt Count (150 - 450 K/mm3) 211 214 MPV (6.7 - 11.0 fL) 9.1 8.9 Neut % (Auto) (39.0 - 69.0 %) 60.3 60.8 Lymph % (Auto) (25.0 - 55.0 %) 26.0 27.0 [place] % (Auto) (0.0 - 10.0 %) 9.8 9.0 Eos % (Auto) (0.0 - 5.0 %) 2.3 2.0 Baso % (Auto) (0.0 - 1.0 %) 1.2 H 0.6 Neut # (Auto) (1.8 - 7.7 K/mm3) 3.08 4.28 Lymph # (Auto) (1.0 - 5.0 K/mm3) 1.33 1.90 [place] # (Auto) (0 - 0.8 K/mm3) 0.50 0.63 Eos # (Auto) (0.0 - 0.5 K/mm3) 0.12 0.14 Baso # (Auto) (0.0 - 0.2 K/mm3) 0.06 0.04 Nucleated RBC % (0 - 0 %) 0.0 0.0 Nucleated RBCs # (Man) (0.0 - 0.1 K/mm3) 0.00 0.00 Laboratory Tests 11/10 1535 Other Body Source POC Nasal Influenza A (Negative) Negative POC Nasal Influenza B (Negative) Negative Laboratory Tests 11/10 1123 Urines Urine Color (YELLOW) Light-Yellow Urine Appearance (CLEAR) CLEAR Urine pH (5.0 - 8.0) 5.0 Ur Specific Upson (1.001 - 1.035) 1.007 Urine Protein (NEGATIVE mg/dL) NEGATIVE Urine Glucose (UA) (NEGATIVE mg/dL) NEGATIVE Urine Ketones (NEGATIVE mg/dL) 10 (1+) H Urine Blood (NEGATIVE mg/dL) Negative Urine Nitrite (NEGATIVE) NEGATIVE Urine Bilirubin (NEGATIVE mg/dL) NEGATIVE Urine Urobilinogen (NEGATIVE mg/dL) Normal Ur Leukocyte Esterase (NEGATIVE Jonathan/uL) NEGATIVE Urine RBC (0 - 5 #/HPF) 0-2 Urine WBC (0 - 5 per HPF) 0-5 Ur Epithelial Cells (FEW per HPF) FEW Urine Bacteria (NONE #/HPF) FEW H Hyaline Casts (0 - 5 #/LPF) 6-10 H Urine Mucus (FEW #/LPF) FEW Laboratory Tests 11/11/23 0044:[Embedded Image Not Available] 11/10/23 1123:[Embedded Image Not Available]Microbiology:11/10 173 BLOOD: Blood Culture - RECD101/11 1736 BLOOD: Blood Culture - RECD101/11 1457 NASAL: MRSA Screen - RECD101/11 1457 BLOOD: Blood Culture - RECD101/11 1457 BLOOD: Blood Culture - RECD101/11 1400 NASAL: MRSA Screen - CAN Cancelled: Duplicate order, test already ordered. Spec #:[id number] Diagnosis, Assessment PlanFree text A P:History of Present Illness:This is a 52-year-old morbidly obese male who was transferred from an outside facility. Patient was recently admitted at [facility] from October 27 through November 05 with hypercapnic respiratory failure, unstable angina and NSTEMI. Per the notes the patient had a left heart cath which showed normal coronary arteries and patient was discharged in a stable condition. Per patienthe has been having nausea and vomiting since discharge. He vomited multiple times today. Had complaints of worsening shortness of breath and had a fall athome after which he was taken to the ER. And brought to the ICU, the patient is awake and alert. Denies any shortness ofbreath. He is on Vapotherm 20 L 50%. Denies any abdominal pain or urinary complaint. No history of recent fever or chills. Hospital Course: - Admitted to ICU Active Problems:# Acute hypoxic respiratory failure?? PneumoniaStart Zosyn empiricallyBreathing treatment with DuoNeb and PulmicortAvoid sedativeGet sputum culture and blood cultureCT chest at the outside facility showed no emboli or any suspicious findings. #CHAPARRO/OHSBiPAP as needed at night #nausea/vometingCT abdomen pelvis Zofran p.o.Keep n.p.o. # NSTEMIUnstable anginaCheck echocardiogramContinue home meds # HypotensionNow off pressors #S/P FALLcheck CT Head Comorbidities:Hypoxic hypercapnic respiratory failure ICU Patient Safety Checklist: - Diet: NPO - Bowel regimen: Senna/Colace- Accuchecks Q: q 6- Antibiotics de-escalation/discontinuation (if no, reason): Zosyn- Home meds resumed: except - Ulcer prophylaxis (discontinue if on diet): Protonix- DVT prophylaxis: SCD, - Taylor: - Lines: PIV- Wounds or pressure ulcer present on admission: - Next of kin: TBD- Code status: Full code- Disposition: ICU Critical care time: 45 minutes, excluding procedures, was spent directly evaluating the patient at the bedside, interpreting labs and imaging, ordering new labs and medications, and discussing the case with the ICU multidisciplinaryteam, consultants and admitting teams. Quality: Gen Med Crit Care VTE ProphylaxisVTE prophylaxis initiated: yes (mechanical comp device) Current MedicationsCurrent medication review:I attest that the foregoing medication list in the medical record is true, accurate, and complete to the best of my knowledge. at 1606 RPT #:[id number] OF REPORTPRProgress [id number]:15:00V.[id number] able for patient gqcaYXAJEYGXJZJUYI3625-88-64X89:07:24 [facility] 2023-11-10 13:22:00 [id number] UDKNIUsl/EjBQXm+q3fps/2m6hgKj KS5Mw/85nNPR/EaVFAlfyz4XjRx5293-32-50K21:22:00 [facility] ([facility])Hospitalist History PhysicalREPORT#:[id number] REPORT STATUS: SignedREPORT INITIALIZATION DATE:11/10/23 TIME: 1321 PATIENT: DANIEL LEHMAN UNIT #: [id number]#: [id number] [facility] AGE: 52 SEX: M ATTEND: Jeremias Ibarra MDADM AUTHOR: Jeremias Ibarra MDREPT SERVICE DT/TIME: 11/10/23 1322 * ALL edits or amendments must be made on the electronic/computer document * See AddendumHistory of Present Illness HPIChief complaint:Shortness of breathHPI:52-year-old male with past medical history of obesity who presents to the hospital with a chief complaint of shortness of breath. The patient was transferred from an outside facility to [facility]. Patient states he had a fall at home today and so he was taken to theemergency room where he complained of shortness of breath. He denies any fever or chills. He reports cough, nausea, and vomiting. External record: Patient was recently admitted at [facility] from October 27 through November 05 with hypercapnic respiratory failure, unstable angina and NSTEMI. Per the notes the patient had a left heart cath which showed normal coronary arteries and patient was discharged in a stable condition. History Past Medical Surgical HxAdditional medical history:Diabetes mellitus type 2, hypertension, and GERDAdditional surgical history:Denies any history of surgery Family HistoryFamily history:Reports: Diabetes, Hypertension. Social HistoryAlcohol use: Denies EtOH useDrug use: Denies recreational drugsSmoking status for patients 13 years old or older: Never Smoker Medication/Allergy-Vaccine HxAllergies:Coded Allergies:No Known Allergies (09/22/22) Review of Systems Free Text ROS NotesFree Text ROS Notes:CONSTITUTIONAL: Patient denies fevers, chills, sweats and weight changes.EYES: Patient denies any visual symptoms.EARS, NOSE, AND THROAT: No difficulties with hearing. No symptoms of rhinitis orsore throat.CARDIOVASCULAR: Patient denies chest pains, palpitations, orthopnea and paroxysmal nocturnal dyspnea.RESPIRATORY: reports shortness of breath, cough, and dyspnea on exertion. no wheezingGI: Reports nausea and vomiting. diarrhea, constipation, abdominal pain, hematochezia or melena.: No urinary hesitancy or dribbling. No nocturia or urinary frequency. No abnormal urethral discharge.MUSCULOSKELETAL: No myalgias or arthralgias.NEUROLOGIC: No chronic headaches, no seizures. Patient denies numbness, tinglingor weakness.PSYCHIATRIC: Patient denies problems with mood disturbance. No problems with anxiety.ENDOCRINE: No excessive urination or excessive thirst.DERMATOLOGIC: Patient denies any rashes or skin changes. OBJECTIVEVS/I O:Vital Signs Date Temp Pulse Resp B/P B/P Mean Pulse Ox FiO2 11/10 36.6 102-110 18-35 94-142/53-69 69-99 85-100 50 Last Documented: Result Date Time Pulse Ox 91 11/10 1230 B/P 113/57 11/10 1230 B/P Mean 82 11/10 1230 Pulse 110 11/10 1230 Resp 30 11/10 1230 FiO2 50 11/10 1121 O2 Flow Rate 20 11/10 1121 O2 Delivery High flow nasal cannula 11/10 1121 Temp 36.6 11/10 0930 Patient Weight and BMI Weight (kg): 114.700 BMI: 39.6 Medications:Active Meds + DC'd Last 24 HrsMupirocin (BACTROBAN 2% OINTMENT) 1 APPLIC BID NASAL Mupirocin (BACTROBAN 2% OINTMENT) 1 APPLIC BID NASAL (CAN) Senna/Docusate Sodium (SENNA-S 50 MG/8.6 MG TABLET) 1 TAB BID PO Norepinephrine/Dextrose (LEVOPHED 4 MG/250 ML D5W) 250 ML TITRATE IV Albuterol/Ipratropium (DUONEB) 3 ML RTQ4H INH Acetaminophen (TYLENOL) 650 MG Q4H PRN PRN PO Dextrose/Water (DEXTROSE 50%-WATER) 50 ML ASDIR PRN IV (CKD) Hydralazine HCl (APRESOLINE) 10 MG Q4H PRN PRN IV Ondansetron HCl (ondansetron HCL) 4 MG Q6H PRN PRN IV ResultsFindings/Data:Laboratory Tests: 11/10 11/10 1123 1123 Chemistry Sodium (136 - 145 mmol/L) 139 Potassium (3.5 - 5.1 mmol/L) 3.5 Chloride (98 - 107 mmol/L) 102.0 Carbon Dioxide (21 - 32 mmol/L) 26.0 Anion Gap (10 - 20) 14.5 BUN (7 - 18 mg/dL) 9 Creatinine (0.7 - 1.3 mg/dL) 1.70 H Glomerular Filtr Rate (>=60 mL/min) 48 BUN/Creatinine Ratio (10 - 20) 5.2 L Glucose (74 - 106 mg/dL) 172 H Lactic Acid (0.4 - 1.9 mmol/L) 0.8 Calcium (8.5 - 10.1 mg/dL) 8.5 Total Bilirubin (0.0 - 1.0 mg/dL) 0.80 AST (15 - 37 IUnit/L) 50 H ALT (12 - 78 IUnit/L) 115 H Total Alk Phosphatase (45 - 117 IUnit/L) 70 Total Protein (6.4 - 8.2 gram/dL) 5.9 L Albumin (3.4 - 5.0 g/dL) 3.4 Globulin (2.7 - 4.2 gram/dL) 2.5 L Albumin/Globulin Ratio (0.75 - 1.50) 1.4 Coagulation INR (0.8 - 1.2) 1.1 PT Patient/Control Mix (10.0 - 14.0 seconds) 12.6 Hematology WBC (4.5 - 12.5 K/mm3) 7.0 RBC (4.0 - 5.8 mill/mm3) 3.98 L Hgb (13.0 - 17.5 gram/dL) 11.6 L Hct (42.0 - 52.0 %) 35.4 L MCV (80 - 98 fL) 88.9 MCH (27.0 - 33.0 picogram) 29.1 MCHC (33.0 - 36.0 gram/dL) 32.8 L RDW (11.6 - 16.2 %) 12.9 RDW Std Deviation (37.0 - 51.0 fL) 41.6 Plt Count (150 - 450 K/mm3) 214 MPV (6.7 - 11.0 fL) 8.9 Neut % (Auto) (39.0 - 69.0 %) 60.8 Lymph % (Auto) (25.0 - 55.0 %) 27.0 [place] % (Auto) (0.0 - 10.0 %) 9.0 Eos % (Auto) (0.0 - 5.0 %) 2.0 Baso % (Auto) (0.0 - 1.0 %) 0.6 Neut # (Auto) (1.8 - 7.7 K/mm3) 4.28 Lymph # (Auto) (1.0 - 5.0 K/mm3) 1.90 [place] # (Auto) (0 - 0.8 K/mm3) 0.63 Eos # (Auto) (0.0 - 0.5 K/mm3) 0.14 Baso # (Auto) (0.0 - 0.2 K/mm3) 0.04 Nucleated RBC % (0 - 0 %) 0.0 Nucleated RBCs # (Man) (0.0 - 0.1 K/mm3) 0.00 Urines Urine Color (YELLOW) Light-Yellow Urine Appearance (CLEAR) CLEAR Urine pH (5.0 - 8.0) 5.0 Ur Specific Upson (1.001 - 1.035) 1.007 Urine Protein (NEGATIVE mg/dL) NEGATIVE Urine Glucose (UA) (NEGATIVE mg/dL) NEGATIVE Urine Ketones (NEGATIVE mg/dL) 10 (1+) H Urine Blood (NEGATIVE mg/dL) Negative Urine Nitrite (NEGATIVE) NEGATIVE Urine Bilirubin (NEGATIVE mg/dL) NEGATIVE Urine Urobilinogen (NEGATIVE mg/dL) Normal Ur Leukocyte Esterase (NEGATIVE Jonathan/uL) NEGATIVE Urine RBC (0 - 5 #/HPF) 0-2 Urine WBC (0 - 5 per HPF) 0-5 Ur Epithelial Cells (FEW per HPF) FEW Urine Bacteria (NONE #/HPF) FEW H Hyaline Casts (0 - 5 #/LPF) 6-10 H Urine Mucus (FEW #/LPF) FEW Laboratory Tests 11/10/23 1123:[Embedded Image Not Available] Radiology data:Recent Impressions:RADIOLOGY - XR CHEST 1 V 11/10 1138 Report Impression - Status: SIGNED Entered: 11/10/2023 1200 IMPRESSION: Patchy left interstitial infiltrate.Impression By: [email or web address] Kerri Duggan M.D. Free Text PE NotesFree Text PE Notes:Physical ExamGeneral appearance: obese, alert, awake, oriented, no acute distress, conversationalHead/Eyes: atraumatic, clear cornea, EOMIENT: moist mucosal membranes, normal dentition, normal ear left, normal ear right, normal noseNeck: non-tender, no bruit/NL carotids, no JVD, no masses or swellingCardiovascular: normal capillary refill, normal heart sounds, tachycardic, no gallop, no murmur, no rubRespiratory: decrease breath sounds bibasilar, rhonchi, symmetric expansion, no crackles or wheezesAbdomen: non-tender, normal bowel sounds, soft, no distention, no guarding, no mass/organomegaly, no reboundExtremities: moves all, no clubbing, no cyanosis, no edemaMusculoskeletal: normal inspection, painless range of motion, no CVA tenderness,no muscle spasmNeuro/SET UP MECHANIC: alert, oriented X 3, CNII-XII intact, normal speech, no motor deficits, no sensory deficitsSkin: dry, intact, normal color, normal temperature, no rashLymphatics: axilla normal, inguinal normal, neck normal, no lymphadenopathyPsychiatry: normal affect, normal judgment/insight, normal mood, not homicidal, not suicidal Diagnosis, Assessment PlanFree Text A P:# Acute respiratory failure with hypoxemiasecondary to pneumoniaplaced on high flow oxygen vapotherm at 30L at FiO2 80%admitted to ICU #PneumoniaSuspect community-acquired pneumonia. Chest x-ray shows patchy left interstitial infiltrate.Cannot rule out multidrug-resistant organisms such as Pseudomonas given patient's recent hospitalization 1 week ago. Cover for Pseudomonas with IV Zosyn 3.375 mg every 8 hours #Acute renal failureSuspect VIN versus CKD stage IIIaAvoid nephrotoxic #Diabetes mellitus type 2Check hgb Y0Cggrghyb checks AC and HSsliding scale insulin #HypertensionIV hydralazine 10mg q4hrs prn for SBP >170 or DBP >100 #HyperlipidemiaAtorvastatin 40 mg daily #TransaminitisSuspect due to fatty liver disease #AnemiaRule out iron deficiency #ObesityBMI 39.6Counseled the patient on need for weight loss with diet and daily exercise. 40 minutes of critical care time spent Quality: Gen Med Crit Care VTE ProphylaxisVTE prophylaxis initiated: yes (mechanical comp device) Current MedicationsCurrent medication review:I attest that the foregoing medication list in the medical record is true, accurate, and complete to the best of my knowledge. at 1644 Addendum 1: 11/10/231644 by Jeremias Ibarra MD #Shock rule out septic shock, remains on Levophed drip- at 1645 RPT #:[id number] OF REPORTHPHistory and physical [id number]:22:00V.[id number] AVAvailable for patient [id number]:44:59 [facility] 2023-11-10 11:32:00 [id number] [id number]+[id number]:32:00 [facility])Critical Care Consult NoteREPORT#:[id number] REPORT STATUS: SignedREPORT INITIALIZATION DATE:11/10/23 TIME: 1131 PATIENT: DANIEL LEHMAN UNIT #: [id number]#: [id number] [facility] AGE: 52 SEX: M ATTEND: Jeremias Ibarra MDADM AUTHOR: Meryl Rey MDREPT SERVICE DT/TIME: 11/10/23 1132 * ALL edits or amendments must be made on the electronic/computer document * History of Present Illness HPIReason for consult:respiratory failureChief complaint:shortness of breathPCP:PCP: Sang Rey MD HPI:This is a 52-year-old morbidly obese male who was transferred from an outside facility. Patient was recently admitted at [facility] from October 27 through November 05 with hypercapnic respiratory failure, unstable angina and NSTEMI. Per the notes the patient had a left heart cath which showed normal coronary arteries and patient was discharged in a stable condition. Per patienthe has been having nausea and vomiting since discharge. He vomited multiple times today. Had complaints of worsening shortness of breath and had a fall athome after which he was taken to the ER. And brought to the ICU, the patient is awake and alert. Denies any shortness ofbreath. He is on Vapotherm 20 L 50%. Denies any abdominal pain or urinary complaint. No history of recent fever or chills. History - Adult longitudinalAdditional medical history:CAD,NSTEMI,CHAPARRO/OHSSmoking status for patients 13 years old or older: Never SmokerAllergies:Coded Allergies:No Known Allergies (09/22/22) Review of Systems ROSConstitutional:Denies: chills, fatigue, fever, generalized weakness, lethargy. Respiratory:Denies: LAMBERT (dyspnea on exertion), hemoptysis, non productive cough, parox nocturnal dyspnea, pleurisy. Cardiovascular:Denies: chest pain, LAMBERT (dyspnea on exertion), edema, orthopnea. GI:Reports: vomiting. Neuro:Denies: bladder dysfunction, bowel dysfunction. Objective Physical ExamVS/I O:Last Documented: Result Date Time Pulse Ox 91 11/10 1230 B/P 113/57 11/10 1230 B/P Mean 82 11/10 1230 Pulse 110 11/10 1230 Resp 30 11/10 1230 FiO2 50 11/10 1121 O2 Flow Rate 20 11/10 1121 O2 Delivery High flow nasal cannula 11/10 1121 Temp 97.8 11/10 0930 Patient Weight and BMI Weight (kg): 114.700 BMI: 39.6 Medications:Active Meds + DC'd Last 24 HrsAtorvastatin Calcium (LIPITOR 20MG TAB) 20 MG DAILY PO Budesonide (PULMICORT RESPULES 0.25MG/2ML) 2 ML RTQ12H NEB (CKD) Mupirocin (BACTROBAN 2% OINTMENT) 1 APPLIC BID NASAL Mupirocin (BACTROBAN 2% OINTMENT) 1 APPLIC BID NASAL (CAN) Pantoprazole Sodium (PROTONIX) 40 MG BID PO Senna/Docusate Sodium (SENNA-S 50 MG/8.6 MG TABLET) 1 TAB BID PO Azithromycin (ZITHROMAX) 500 MG Q24H IV Sodium Chloride (SODIUM CHLORIDE 0.9%) 250 MLCeftriaxone Sodium (ROCEPHIN) 1,000 MG Q24H IV Sodium Chloride (SODIUM CHLORIDE 0.9% PF) 10 MLNorepinephrine/Dextrose (LEVOPHED 4 MG/250 ML D5W) 250 ML TITRATE IV Albuterol/Ipratropium (DUONEB) 3 ML RTQ4H INH Acetaminophen (TYLENOL) 650 MG Q4H PRN PRN PO Dextrose/Water (DEXTROSE 50%-WATER) 50 ML ASDIR PRN IV (CKD) Hydralazine HCl (APRESOLINE) 10 MG Q4H PRN PRN IV Ondansetron HCl (ondansetron HCL) 4 MG Q6H PRN PRN IV General appearance: alert, awake, orientedNeck: full range of motion, non-tenderCardiovascular: normal capillary refill, normal heart sounds, regular rate and rhythmRespiratory: decreased breath soundsAbdomen: soft, non-tender, normal bowel soundsExtremities: moves all, no clubbing, no cyanosis, no edema Diagnosis, Assessment PlanFree text DxA P:History of Present Illness:This is a 52-year-old morbidly obese male who was transferred from an outside facility. Patient was recently admitted at [facility] from October 27 through November 05 with hypercapnic respiratory failure, unstable angina and NSTEMI. Per the notes the patient had a left heart cath which showed normal coronary arteries and patient was discharged in a stable condition. Per patienthe has been having nausea and vomiting since discharge. He vomited multiple times today. Had complaints of worsening shortness of breath and had a fall athome after which he was taken to the ER. And brought to the ICU, the patient is awake and alert. Denies any shortness ofbreath. He is on Vapotherm 20 L 50%. Denies any abdominal pain or urinary complaint. No history of recent fever or chills. Hospital Course: - Admitted to ICU Active Problems:# Acute hypoxic respiratory failure?? PneumoniaStart Zosyn empiricallyBreathing treatment with DuoNeb and PulmicortAvoid sedativeGet sputum culture and blood cultureCT chest at the outside facility showed no emboli or any suspicious findings. #CHAPARRO/OHSBiPAP as needed at night #nausea/vometingCT abdomen pelvis Zofran p.o.Keep n.p.o. # NSTEMIUnstable anginaCheck echocardiogramContinue home meds # HypotensionNow off pressors #S/P FALLcheck CT Head Comorbidities:Hypoxic hypercapnic respiratory failure ICU Patient Safety Checklist: - Diet: NPO - Bowel regimen: Senna/Colace- Accuchecks Q: q 6- Antibiotics de-escalation/discontinuation (if no, reason): Zosyn- Home meds resumed: except - Ulcer prophylaxis (discontinue if on diet): Protonix- DVT prophylaxis: SCD, - Taylor: - Lines: PIV- Wounds or pressure ulcer present on admission: - Next of kin: TBD- Code status: Full code- Disposition: ICU Critical care time: 45 minutes, excluding procedures, was spent directly evaluating the patient at the bedside, interpreting labs and imaging, ordering new labs and medications, and discussing the case with the ICU multidisciplinaryteam, consultants and admitting teams. at 1407 RPT #:[id number] OF [id number]:32:00V.PDOC2 [id number] for patient [id number]:08:25 [facility] 2022-09-24 09:36:00 [id number] [id number]:36:88257 6-[address] [place] [address] PATIENT NAME: DANIEL LEHMAN ADMIT DATE: 09/24/22ACCOUNT NO: [id number] ROOM NO: AGE: 51 REPORT TYPE: OPERATIVE [...] PATIENT NAME: DANIEL LEHMAN Date Transcribed: 09/24/2022 16:12:19MNAnna/Mamie #: [id number] ID: [id number] by Lukasz Saul MD On 10/01/2022 09:00:16 AM at 0900 PATIENT NAME: DANIEL LEHMAN [id number]:12:00L.[id number] [facility] for patient [id number]:00:46 [facility]"
--- NOTE | 2024-02-16 12:38 | RAD REPORT ---
EXAM DESCRIPTION: CT - Abdomen Pelvis Wo Contrast - 02/16/2024 11:23 am CLINICAL HISTORY: ABD PAIN COMPARISON: Abdomen Pelvis W Contrast dated 10/25/2023; Abdomen Pelvis W Contrast dated 2; Abdomen Pelvis W Contrast dated 06/24/2021 TECHNIQUE: Thin cut axial CT imaging of the abdomen and pelvis was performed without IV contrast. Mu ltiplanar reformats were generated and reviewed. All CT scans are performed using dose optimization technique as appropriate and may include automated exposure control or mA/KV adjustment according to patient size. FINDINGS: No suspicious findings in the lung bases. The liver, spleen, adrenal glands, and pancreas show no suspicious findings. Gallbladder and biliary tree are also without suspicious finding. Symmetric renal contour, without suspicious parenchymal findings within limits of noncontrast techniq ue. No evidence of radiopaque calculi or hydroureteronephrosis. No dilated bowel loops or bowel wall thickening. No free air, free fluid or inflammatory stranding. N o hernia, mass or bulky lymphadenopathy. The urinary bladder is without significant finding. No suspicious bony findings. IMPRESSION: No acute intra-abdominal process.
--- NOTE | 2024-02-16 12:49 | RAD REPORT ---
EXAM DESCRIPTION: RADChest Single View02/16/2024 11:29 am CLINICAL HISTORY: COUGH COMPARISON: Chest Single View dated 11/10/2023; Chest Single View dated 11/10/2023; Chest Single Vie w dated 10/31/2023; Chest Single View dated 10/28/2023hest Single View dated 11/10/2023; Chest Single View dated 11/10/2023; Chest Single View dated 10/31/2023; Chest Single View dated 10/28/2023 TECHNIQUE: Portable AP view of the chest. FINDINGS: The lungs are clear. No pneumothorax or effusion. The cardiomediastinal contours are unre markable. IMPRESSION: No acute cardiopulmonary process.
[2024-02-16 13:44] LABS: Specific Gravity 1.022 (1.005-1.030); Sqamous Epithelial <5 /HPF (None Seen); Urine Bacteria None Seen /HPF (<20); Urine Bilirubin NEGATIVE (Negative); Urine Blood Negative (Negative); Urine Clarity Turbid (Clear); Urine Color Yellow (Yellow); Urine Culture Reflex Order NOT NEEDED; Urine Glucose 4+ (Over) (Negative); Urine Ketones 1+ (Negative); Urine Microscopic Reflex YN ORDER UMIC; Urine Mucus 1+ /HPF (None Seen); Urine Nitrite NEGATIVE (Negative); Urine Protein TRACE (Negative); Urine RBC <5 /HPF (None Seen); Urine Urobilinogen Normal (Normal); Urine WBC <5 /HPF (<5); Urine Yeast (Budding) Trace /HPF (None Seen)
[2024-02-16 15:23] LABS: Albumin 3.2 g/dL (3.4-5.0); Albumin/Globulin Ratio 0.8 (1.1-1.8); Anion Gap 10.7 mEq/L (5.0-15.0); Bilirubin Total 0.9 mg/dL (0.2-1.0); Globulin 3.9 g/dL (2.3-3.5); Potassium 3.7 mEq/L (3.5-5.1); Protein, Total 7.1 g/dL (6.4-8.2)
[2024-02-16 15:27] LABS: Absolute Eosinophils 0.1 K/uL (0-0.5); Absolute Lymphocytes (CBC) 2.4 K/uL (0.7-4.9); Absolute Monocytes 0.6 K/uL (0.1-1.3); Absolute Neutrophil 4.6 K/uL (1.8-8.0); Basophils % 0.6 % (0-1.3); Eosinophils % 1.7 % (0-4.4); Hematocrit 39.5 % (39.6-49.0); Hemoglobin 13.3 g/dL (13.6-17.9); Lymphocytes % 30.7 % (15.3-44.8); MCHC 33.6 g/dL (32.0-36.0); MCV 86.3 fL (80-100); MPV 7.5 fL (7.6-11.3); Monocytes % 8.3 % (3.3-12.3); Neutrophils % 58.7 % (41.7-73.7); Nucleated Red Blood Cells % 0.1 % (0-0); Platelets 272 thou/uL (152-406); RBC Red Blood Cell Count 4.57 M/uL (4.33-5.43); Red Cell Distribution Width 13.3 % (12.1-15.2)
--- NOTE | 2024-02-16 17:20 | ER ---
Nurse's Notes [facility] Name: Leandro Rand Age: 53 yrs Sex: Male : 1970 Arrival Date: 02/16/2024 Time: 10:47 Bed 4 Private MD: Diagnosis: Nausea and Vomiting Presentation: 02/15 10:55 Chief complaint: Spouse and/or significant other states: the patient has been nauseated ap3 and hasn't had much of an appetite for approx 2-3 days. it is reported the patient has body aches and he has been getting light headed when he stands up as well. Coronavirus screen: At this time, the client does not indicate any symptoms associated with coronavirus-19. Ebola Screen: No symptoms or risks identified at this time. Initial Sepsis Screen: Does the patient meet any 2 criteria? HR > 90 bpm. Does the patient have a suspected source of infection? No. Patient's initial sepsis screen is negative. Risk Assessment: Do you want to hurt yourself or someone else? Patient reports no desire to harm self or others. Onset of symptoms is unknown. 10:55 Method Of Arrival: Ambulatory ap3 10:55 Acuity: FELI 3 ap3 Triage Assessment: 10:59 General: Appears in no apparent distress. Behavior is calm, cooperative, appropriate ap3 for age. Pain: Complains of pain in generalized body aches. Neuro: Level of Consciousness is awake, alert, obeys commands, Oriented to person, place, time, situation. Cardiovascular: Patient's skin is warm and dry. Respiratory: Reports he wears home oxygen 2-3 liters Airway is patent Respiratory effort is even, unlabored, Respiratory pattern is regular, symmetrical. GI: Reports nausea, loss of appetite. Historical: - Allergies: 10:58 Segluromet; ap3 10:58 Synjardy; ap3 10:58 XIGDUO; ap3 - PMHx: 10:58 Congestive heart failure; COVID-19; Diabetes - IDDM; Diabetes - NIDDM; Hyperlipidemia; ap3 lung failure; Myocardial infarction; home oxygen (Left first finger amputation); - PSHx: 10:58 heart cath; Left first finger amputation; ap3 - Immunization history:: Client reports receiving the 2nd dose of the Covid vaccine. - Social history:: Smoking status: Patient denies any tobacco usage or history of. Screenin:26 [facility] ED Fall Risk Assessment (Adult) History of falling in the last 3 months, ld1 including since admission No falls in past 3 months (0 pts). Abuse screen: Denies threats or abuse. Denies injuries from another. Nutritional screening: No deficits noted. Tuberculosis screening: No symptoms or risk factors identified. Assessment: 14:26 General: Appears in no apparent distress. uncomfortable, Behavior is calm, cooperative, ld1 appropriate for age. Pain: Complains of pain in abdomen Pain does not radiate. Pain currently is 7 out of 10 on a pain scale. Quality of pain is described as throbbing. Neuro: Level of Consciousness is awake, alert, obeys commands, Oriented to person, place, time, situation. Cardiovascular: Capillary refill < 3 seconds Patient's skin is warm and dry. Respiratory: Airway is patent Respiratory effort is even, unlabored. GI: Abdomen is round Reports lower abdominal pain, upper abdominal pain, nausea, vomiting. : No signs and/or symptoms were reported regarding the genitourinary system. EENT: No signs and/or symptoms were reported regarding the EENT system. Derm: No signs and/or symptoms reported regarding the dermatologic system. Musculoskeletal: No signs and/or symptoms reported regarding the musculoskeletal system. 16:00 Reassessment: Patient appears in no apparent distress at this time. No changes from ld1 previously documented assessment. 17:30 Reassessment: Patient appears in no apparent distress at this time. No changes from ld1 previously documented assessment. Patient and/or family updated on plan of care and expected duration. Pain level reassessed. Patient states symptoms have improved. 18:08 Reassessment: Patient appears in no apparent distress at this time. No changes from ld1 previously documented assessment. Patient and/or family updated on plan of care and expected duration. Pain level reassessed. Vital Signs: 10:55 BP 130 / 70; Pulse 96; Resp 19; Temp 98.1; Pulse Ox 93% on R/A; Weight 122.47 kg; ap3 Height 5 ft. 7 in. ; 14:50 BP 107 / 74; Pulse 100; Resp 18; Pulse Ox 98% on 4 lpm NC; Pain 9/10; ld1 15:30 BP 122 / 76; Pulse 94; Resp 18; Pulse Ox 100% on R/A; Pain 6/10; ld1 16:29 BP 118 / 73; Pulse 104; Resp 18; Pulse Ox 97% on R/A; ld1 17:00 BP 116 / 71; Pulse 91; Resp 18; Pulse Ox 100% on 3 lpm NC; ld1 18:09 BP 112 / 72; Pulse 91; Resp 18; Pulse Ox 100% on 3 lpm NC; ld1 10:55 Body Mass Index 42.29 (122.47 kg, 170.18 cm) ap3 14:50 Pain Scale: Adult ld1 15:30 Pain Scale: Adult ld1 10:55 patient wears oxygen at home. ap3 ED Course: 10:51 Patient arrived in ED. mr 10:52 Boris Keller MD is Attending Physician. ec2 10:58 Triage completed. ap3 11:00 Arm band placed on right wrist. ap3 11:25 CT Abd/Pelvis - Without Contrast In Process Unspecified. EDMS 11:31 CXR XRAY In Process Unspecified. EDMS 13:31 Liliana Cano RN is Primary Nurse. ld1 14:26 Patient has correct armband on for positive identification. Placed in gown. Bed in low ld1 position. Call light in reach. Side rails up X2. monitoring specialist on. Pulse ox on. NIBP on. Door closed. Noise minimized. Warm blanket given. 14:26 No provider procedures requiring assistance completed. ld1 18:07 Provided Education on: medication usage. ld1 18:07 IV discontinued, intact, bleeding controlled, No redness/swelling at site. ld1 Administered Medications: 14:49 Drug: Ondansetron IVP 4 mg IVP once; over 2 minutes Route: IVP; Site: left forearm; ld1 14:50 Drug: morphine IVP or IV 4 mg IVP once over 4 mins Route: IVP; Infused Over: 4 mins; ld1 Site: left forearm; Medication: 14:26 VIS not applicable for this client. ld1 Outcome: 17:20 Discharge ordered by . ec2 18:07 Discharged to home ambulatory, with family, ld1 18:07 Condition: stable 18:07 Discharge instructions given to patient, family, Instructed on discharge instructions, follow up and referral plans. medication usage, Demonstrated understanding of instructions, follow-up care, medications, Prescriptions given X 2, 18:09 Patient left the ED. ld1 Signatures: Dispatcher [employer] EDLarissa Ambriz, Reg Reg mr Rabia Latif RN RN ap3 Liliana Cano RN RN ld1 Boris Keller MD MD ec2
--- NOTE | 2024-02-16 17:21 | EDPHYS ---
Physician Documentation [facility] Name: Leandro Rand Age: 53 yrs Sex: Male : 1970 Arrival Date: 02/16/2024 Time: 10:47 Bed 4 Private MD: ED Physician Boris Keller HPI: 02/15 11:05 This 53 yrs old Male presents to ER via Ambulatory with complaints of ec2 Nausea/Vomiting. 11:05 Patient arrives today for evaluation of nausea and vomiting. Patient reports he been ec2 having issues with nausea and vomiting for the past several days, reports that he is having some generalized swelling as well. Reports generalized abdominal pain. Patient reports no difficulty breathing. Reports baseline oxygen requirement.. Historical: - Allergies: 10:58 Segluromet; ap3 10:58 Synjardy; ap3 10:58 XIGDUO; ap3 - PMHx: 10:58 Congestive heart failure; COVID-19; Diabetes - IDDM; Diabetes - NIDDM; Hyperlipidemia; ap3 lung failure; Myocardial infarction; home oxygen (Left first finger amputation); - PSHx: 10:58 heart cath; Left first finger amputation; ap3 - Immunization history:: Client reports receiving the 2nd dose of the Covid vaccine. - Social history:: Smoking status: Patient denies any tobacco usage or history of. ROS: 11:05 Constitutional: as per hpi ec2 Exam: 11:05 Constitutional: GEN: NAD Head: atraumatic Eyes: EOMI Ears: External ears are ec2 normal. CV: regular rate, no marked lower extremity edema LUNGS: no respiratory distress ABD: non-distended, soft, not guarding, not rigid SKIN: no evidence of rashes MSK: no evidence of trauma NEURO: moves all extremities equally Vital Signs: 10:55 BP 130 / 70; Pulse 96; Resp 19; Temp 98.1; Pulse Ox 93% on R/A; Weight 122.47 kg; ap3 Height 5 ft. 7 in. ; 14:50 BP 107 / 74; Pulse 100; Resp 18; Pulse Ox 98% on 4 lpm NC; Pain 9/10; ld1 15:30 BP 122 / 76; Pulse 94; Resp 18; Pulse Ox 100% on R/A; Pain 6/10; ld1 16:29 BP 118 / 73; Pulse 104; Resp 18; Pulse Ox 97% on R/A; ld1 17:00 BP 116 / 71; Pulse 91; Resp 18; Pulse Ox 100% on 3 lpm NC; ld1 18:09 BP 112 / 72; Pulse 91; Resp 18; Pulse Ox 100% on 3 lpm NC; ld1 10:55 Body Mass Index 42.29 (122.47 kg, 170.18 cm) ap3 14:50 Pain Scale: Adult ld1 15:30 Pain Scale: Adult ld1 10:55 patient wears oxygen at home. ap3 MDM: 11:05 Patient medically screened. ec2 11:05 Data reviewed: vital signs. ED course: Patient arrives today for evaluation of nausea ec2 and vomiting and general ill unwellness. Will obtain lab work, EKG, chest x-ray, CT imaging of the abdomen pelvis. Evaluate for VIN, volume overload, electrolyte disturbances. 14:29 ED course: Urine noninfectious appearing.. ec2 15:53 ED course: CBC reassuring, metabolic profile with appropriate electrolytes, slight ec2 hyperglycemia 230. Lipase within normal ranges. BNP within normal ranges at 32. Urine is noninfectious appearing. . 16:07 ED course: CT abdomen pelvis shows no acute intra-abdominal process. . ec2 17:16 ED course: Troponin within normal ranges.. ec2 17:19 ED course: On reassessment patient is well-appearing no acute distress. Will discharge ec2 home, no evidence of CHF exacerbation, ACS, intra-abdominal infection. Return precautions given.. 02/15 11:07 Order name: CBC with Diff ec2 02/15 11:07 Order name: CMP ec2 02/15 11:07 Order name: Lipase ec2 02/15 11:07 Order name: Urinalysis w/ reflexes ec2 02/15 11:07 Order name: BNP ec2 02/15 16:08 Order name: Troponin HS; Complete Time: 17:16 ec2 02/15 11:07 Order name: CT Abd/Pelvis - Without Contrast; Complete Time: 16:07 ec2 02/15 11:07 Order name: CXR XRAY; Complete Time: 16:07 ec2 02/15 11:07 Order name: IV Saline Lock; Complete Time: 13:47 ec2 02/15 11:07 Order name: Labs collected and sent; Complete Time: 13:47 ec2 02/15 13:59 Order name: Labs - recollect needed: recollect light green and lavender; Complete Time: bd 14:22 Administered Medications: 14:49 Drug: Ondansetron IVP 4 mg IVP once; over 2 minutes Route: IVP; Site: left forearm; ld1 14:50 Drug: morphine IVP or IV 4 mg IVP once over 4 mins Route: IVP; Infused Over: 4 mins; ld1 Site: left forearm; Disposition Summary: 02/16/24 17:20 Discharge Ordered Notes: Location: Home ec2 Condition: Stable ec2 Diagnosis - Nausea and Vomiting ec2 Followup: ec2 - With: Private Physician - When: - Reason: Re-evaluation by your physician Discharge Instructions: - Discharge Summary Sheet ec2 - Nausea and Vomiting, Adult, [id number] ec2 Forms: - Medication Reconciliation Form ec2 - Thank You Letter ec2 - Antibiotic Education ec2 - Prescription Opioid Use ec2 - Patient Portal Instructions ec2 - Leadership Thank You Letter ec2 Prescriptions: - Zofran 4 mg Oral Tablet - take 1 tablet ORAL route every 12 hours As needed; 20 tablet; Refills: 0, ec2 Product Selection Permitted - Pepcid 20 mg Oral Tablet - take 1 tablet ORAL route once daily; 20 tablet; Refills: 0, Product Selection ec2 Permitted Signatures: Dispatcher [employer] Apurva Stephens Amanda, RN RN ap3 Liliana Cano RN RN ld1 Boris Keller MD MD ec2
[2024-02-16 19:53] VITALS: TEMP 98.1; O2SAT 100
[2024-02-16 20:23] VITALS: BP 112/72
== END ==
LOC: ER 10:47
DX: R11.2 Nausea with vomiting, unspecified (principal); R60.9 Edema, unspecified; R10.84 Generalized abdominal pain; I50.9 Heart failure, unspecified; Z98.61 Coronary angioplasty status; Z88.8 Allergy status to other drugs, medicaments and biological substances
CPT/HCPCS: 85025; 81001; 36415; 84484; 83690; 80053; 83880; 74176; 71045; J2405

== ENCOUNTER 2024-03-02 17:34 | Inpatient (IN) | payer OTHER ==
--- OUTSIDE RECORDS SUMMARY | 2024-03-02 17:42 | XMS REPORT | Continuity of Care Document ---
Author Name Unknown Address [address] [facility] [address] [place] [address] [facility] thconnect Address [address] [facility] [address] [facility] [address] [place] [address] Care Team Providers Care Certified Master Safe Technician Name Role Phone Natacha Somers Primary Care Physician [phone] Florence Downs RN Attending Clinician SACHIN MCALLISTER Attending Clinician Unavailable Jody Heard Attending Clinician [phone] Jasmin Russell MD Attending Clinician [phone] Sachin Mcallister DO Attending Clinician [phone] WENDY MORENO Attending Clinician Unavailable Jeremias Ibarra Attending Clinician UnavailJOHN Edwards Attending Clinician UnaLYUBOV Blas Attending Clinician Unavailable MD LUIS ARMANDO Attending Clinician UnavailROHINI Cunningham Attending Clinician Unavailable MARCELLE ZHU Attending Clinician Unavailable [facility] Attending Quynh meehan Unavailable STEVENSON, TRI R Attending Clinician Unavailable LAB47 Attending Clinician Unavailable AKBAR JEREZ Attending Clinician Unavailable CHOLO LOVE Attending Clinician Unavailable Andrade ARRIETA, Murali Attending Clinician [phone] Natasha ARRIETA, Dawna Attending Clinician [phone] Cholo Love MD Attending Clinician [phone] Horace MICHEL, Nata R Attending Clinician UnaJON Wiggins Attending Clinician Unavailable Gerson Palomino DO Attending Clinician [phone] Jon Cade MD Attending Clinician [phone] Lukasz Saul Attending Clinician Unavailable JAXON THOMAS Attending Clinician Unavailable JAI LOPEZ Attending Clinician Unavailable Jai Lopez MD Attending Clinician [phone] [place] Attending Clinician Unavailable Annette Lemus Attending Clinician [phone] GERSON GREENE Attending Clinician Unavailkaela Cervantes MD, Dustin Asher Attending Clinician Gerson Greene MD Attending Clinician + [phone] Doctor Unassigned, [place] Attending Clinician U Marlene Snyder Attending Clinician [phone] SACHIN MCALLISTER Admitting Clinician Unavailable Sachin Mcallister DO Admitting Clinician [phone] Jeremias Ibarra Admitting Clinician Unavailabl e [place] Admitting Clinician Unavailable CHOLO LOVE Admitting Clinician Unavailable Kate ARRIETA, Cholo Admitting Clinician [phone] GERSON PALOMINO Admitting Clinician Unavailable Physician, No Primary or Family Admitting Clinic bill Unavailable Payers Payer Name Policy Type Policy Number Effective Date Expirati on Date Source [facility] DOMONIQUE GARCES COPAY FOCUS 9 [id number] 2023 00:00:00 LIZBETH QUIROS [facility]: HMO FURNACE SETTER 94 ON STAND 9 [id number] 2023 00:00:00 Problems Condition Name Condition Details Condition Category Status Onset Date Resolution Date Last Treatment Date Treating Clinician Comments Source Fatigue, unspecifie d type Fatigue, unspecifie d type Disease Active 3-27 00:00: 00 [facility] 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 Disease Active 515 00:00: 00 Maisha Collinsa dougie Congestive heart failure, unspecifie d HF chronicity , unspecifie d heart failure type Congestive heart failure, unspecifie d HF chronicity , unspecifie d heart failure type Disease Active 04-08 00:00: 00 Maisha Collinsa dougie Paroxysmal atrial fibrillati on Paroxysmal atrial fibrillati on Disease Active 04-08 00:00: 00 Maisha Collinsa dougie Chronic respirator y failure Chronic respirator y failure Disease Active 04-08 00:00: 00 Maisha Manning Externa dougie 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 Disease Active 04-08 00:00: 00 Maisha Manning Externa dougie 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 associated with diabetes mellitus due to underlying condition 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 associated with diabetes mellitus due to underlying condition Disease Active 04-08 00:00: 00 Maisha Manning Externa dougie Type 2 diabetes mellitus without complicati on, with long-term current use of insulin Type 2 diabetes mellitus without complicati on, with long-term current use of insulin Disease Active 04-02 00:00: 00 Maisha Collinsa dougie Vomiting, unspecifie d vomiting type, unspecifie d whether nausea present Vomiting, unspecifie d vomiting type, unspecifie d whether nausea present Disease Active 2021-11 00:00: 00 [facility] Intractabl e vomiting Intractabl e vomiting Disease Active 2021-11 00:00: 00 [facility] Tinea pedis Tinea pedis Disease Active 2021-11 00:00: 00 [facility] Chronic respirator y failure with hypoxia Chronic respirator y failure with hypoxia Disease Active 2021-11 00:00: 00 [facility] Type 2 diabetes mellitus without complicati on, without long-term current use of insulin Type 2 diabetes mellitus without complicati on, without long-term current use of insulin Disease Active 2021-11 0 00:00: 00 [facility] PAF (paroxysma l atrial fibrillati on) PAF (paroxysma l atrial fibrillati on) Disease Active 2021-11 0- 00:00: 00 [facility] CHAPARRO (obstructi ve sleep apnea) CHAPARRO (obstructi ve sleep apnea) Disease Active 2021-11 0 00:00: 00 [facility] Chest pain, unspecifie d type Chest pain, unspecifie d type Disease Active 2021-11 0 00:00: 00 [facility] Morbid obesity with body mass index of 40.0-49.9 Morbid obesity with body mass index of 40.0-49.9 Disease Active 2021-11 0 00:00: 00 [facility] Elevated LFTs Elevated LFTs Disease Active 2021-11 0 00:00: 00 [facility] Diabetic ketoacidos is without coma associated with type 2 diabetes mellitus Diabetic ketoacidos is without coma associated with type 2 diabetes mellitus Disease Active 04-21 00:00: 00 [facility] Obesity (BMI 30-39.9) Obesity (BMI 30-39.9) Disease Active 04-21 00:00: 00 [facility] No known active problems No known active problems Disease [facility] Allergies, Adverse Reactions, Alerts Allergy Name Allergy Type Status Severity Reaction(s) Onset Date Inactive Date Treating Clinician Comments Source EMPAGLIF LOZIN DRUG INGREDI Active Other-Cmnt 2021-11 00:00: 00 [facility] Empaglif lozin Propensi ty to adverse reaction s to drug Active Other - See comments 2021-11 00:00: 00 JEF [facility] Empaglif lozin Propensi ty to adverse reaction s Active Other 2021-11 00:00: 00 DKA Maisha Seybold - Externa l No Known Allergie s DA Active U 2021-11 0-24 00:00: 00 [facility] NO KNOWN ALLERGIE S Drug Class Active [facility] Social History Social Habit Start Date Stop Date Quantity Comments Source History of tobacco use Cigarette Smoker [facility] Sexual orientation U [facility] Gender identity Maeve Moy - External Alcohol intake 2023-04-17 00:00:00 2023-04-17 00:00:00 Ex-drinker (finding) Maisha Moy - External Exposure to SARS-CoV-2 (event) 2022-11-02 00:00:00 2022-11-12 00:35:00 Not sure [facility] Tobacco use and exposure 2022-09-03 00:00:00 2022-09-03 00:00:00 Smokeless tobacco non-user [facility] History of Social function 2021-09-30 00:00:00 2021-09-30 00:00:00 [facility] Sex Assigned At 1970 00:00:00 1970 00:00:00 Maisha Goddardvioleta - External Smoking Status Start Date Stop Date Source Never smoked tobacco Maisha Goddardvioleta - External Ex-smoker 2022-09-03 00:00:00 2022-09-03 00:00:00 U [facility] Medications Ordered Medication Name Filled Medication Name Start Date Stop Date Current Medication? Ordering Clinician Indication Dosage Frequency Signature (SIG) Comments Components Source furosemide (LASIX) injection 40 mg 02-26 19:15: 00 02-26 19:06 :00 No 40mg 40 mg, Slow IV Push, ONCE, 1 dose, On 02/27/24 at 1415, Routine [facility] aspirin 81 mg chewable tablet 02-26 17:45: 47 Yes 81mg Take 1 tablet by mouth daily. [facility] spironolact one 25 mg tablet 02-26 17:45: 47 Yes 25mg Take 1 tablet by mouth 2 (two) times daily. [facility] omega-3-dha -epa-dpa-fi sh oil (OMEGA-3 2100) 1,050-1,200 mg Cap 02-26 17:45: 47 Yes Take by mouth 2 (two) times daily. [facility] METOPROLOL SUCCINATE ORAL 02-26 17:45: 47 Yes 50mg Take 50 mg by mouth 2 (two) times daily. [facility] pantoprazol e 40 mg EC tablet 02-26 17:45: 47 Yes 40mg Take 1 tablet by mouth 2 (two) times daily. [facility] insulin detemir (LEVEMIR U-100 INSULIN SC) 02-26 17:45: 47 Yes 45U inject 45 Units under the skin 2 (two) times daily. [facility] atorvastati n (LIPITOR) 40 mg tablet 02-26 17:45: 47 Yes 40mg Take 1 tablet by mouth at bedtime. [facility] glipiZIDE 5 mg tablet 02-26 17:45: 47 Yes 5mg Take 1 tablet by mouth daily. [facility] KCL (KLOR-CON M20) tablet 40 mEq 02-26 14:00: 00 Yes 40meq 40 mEq, Oral, DAILY, First dose on 02/27/24 at 0900, Until Discontinu ed, Routine [facility] metoclopram nixon HCl (REGLAN) tablet 5 mg 02-26 12:30: 00 Yes 5mg 5 mg, Oral, AC, First dose on 02/27/24 at 0730, Until Discontinu ed, Routine [facility] metoclopram nixon HCl 5 mg tablet 02-26 00:00: 00 03-06 04:59 :00 Yes [id number] 5mg Take 1 tablet by mouth every 6 (six) hours as needed for Nausea and Vomiting (N/V) for up to 7 days. [facility] KCL 20 mEq tablet 02-26 00:00: 00 03-02 04:59 :00 Yes [id number] 40meq Take 2 tablets by mouth daily for 3 days. [facility] dicyclomine 10 mg capsule 02-26 00:00: 00 03-02 04:59 :00 Yes [id number] 10mg Take 1 capsule by mouth 4 (four) times daily for 3 days. [facility] acetaminoph en (TYLENOL) tablet 650 mg 02-25 22:21: 08 Yes 650mg 650 mg, Oral, Q6HPRN, Starting on Thu02/26/24 at 1721, Until Discontinu ed, Routine, Pain (scale 4-6) [facility] KCL (KLOR-CON M20) tablet 40 mEq 02-25 17:00: 00 02-25 21:45 :00 No 40meq 40 mEq, Oral, Q4H, 2 doses, First dose on Thu02/26/24 at 1200, Last dose on Thu02/26/24 at 1600, [facility] dicyclomine (BENTYL) capsule 10 mg 02-24 17:00: 00 Yes 10mg 10 mg, Oral, QID, First dose on Thu02/25/24 at 1200, Until Discontinu ed, Routine [facility] KCL (KLOR-CON M20) tablet 20 mEq 02-24 15:00: 00 02-24 17:15 :00 No 20meq 20 mEq, Oral, Q2H, 2 doses, First dose on Thu02/25/24 at 1000, Last dose on Thu02/25/24 at 1200, Routine [facility] metoprolol tartrate (LOPRESSOR) tablet 25 mg 02-24 14:00: 00 Yes 25mg 25 mg, Oral, BID, First dose on Thu02/25/24 at 0900, Until Discontinu ed, Routine [facility] enoxaparin (LOVENOX) injection 40 mg 02-24 14:00: 00 Yes 40mg 40 mg, Subcutaneo us, DAILY, First dose on Thu02/25/24 at 0900, Until Discontinu ed, Routine [facility] glipiZIDE (GLUCOTROL) tablet 5 mg 02-24 14:00: 00 Yes 5mg 5 mg, Oral, DAILY, First dose on Thu02/25/24 at 0900, Until Discontinu ed, Routine [facility] aspirin chewable tablet 81 mg 02-24 14:00: 00 Yes 81mg 81 mg, Oral, DAILY, First dose on Thu02/25/24 at 0900, Until Discontinu ed, Routine [facility] metoclopram nixon HCl (REGLAN) injection 10 mg 02-24 05:00: 00 02-25 22:23 :08 No 10mg 10 mg, Slow IV Push, Q6H, First dose on Thu02/25/24 at 0000, Until Discontinu ed, Routine [facility] atorvastati n (LIPITOR) tablet 40 mg 02-24 02:00: 00 Yes 40mg 40 mg, Oral, QHS, First dose on Thu02/24/24 at 2100, Until Discontinu ed, Routine [facility] pantoprazol e (PROTONIX) EC tablet 40 mg 02-24 01:00: 00 Yes 40mg 40 mg, Oral, BID, First dose on Thu02/24/24 at 2000, Until Discontinu ed, Routine [facility] insulin detemir U-100 (LEVEMIR U-100 INSULIN) injection 45 Units 02-24 01:00: 00 Yes 45U 45 Units, Subcutaneo us, BID, First dose on Thu02/24/24 at 2000, Until Discontinu ed
Rest ricted - To be dispensed only to: Continuati on from home [facility] glucagon (GLUCAGEN DIAGNOSTIC KIT) injection 1 mg 02-23 20:27: 21 Yes 1mg 1 mg, Intramuscu lar, PRN, Starting on Thu02/24/24 at 1527, Until Discontinu ed, [place], Blood Glucose < or = 70 mg/dL and patient is NPO, unable to swallow or has mental changes. [facility] HYDROcodone -acetaminop hen (NORCO) 10-325 mg tablet 1 tablet 02-23 20:12: 43 02-25 22:21 :00 No 1{tbl} 1 tablet, Oral, Q6HPRN, Starting on Thu02/24/24 at 1512, Until Thu02/26/24 at 1721, Routine, Pain (scale 7-10) [facility] Sliding Scale Insulin-Reg ular 02-23 16:30: 00 Yes Subcutaneo us, AC+HS, First dose on Thu02/24/24 at 1130, Until Discontinu ed, Routine [facility] lactated ringers IV infusion 1,000 mL 02-23 14:00: 00 02-24 20:00 :27 No 1000mL at 125 mL/hr, 1,000 mL, IV Infusion, CONTINUOUS , Starting on Thu02/24/24 at 0900, Until Thu02/25/24 at 1500, Routine [facility] glucagon (GLUCAGEN DIAGNOSTIC KIT) injection 1 mg 02-23 12:47: 50 Yes 1mg 1 mg, Intramuscu lar, PRN, Starting on Thu02/24/24 at 0747, Until Discontinu ed, [place], Blood Glucose < or = 70 mg/dL and patient is NPO, unable to swallow or has mental changes. [facility] dextrose 50 % in water (D50W) injection 25 mL 02-23 12:47: 50 Yes 25mL 25 mL, Slow IV Push, PRN, Starting on Thu02/24/24 at 0747, Until Discontinu ed, [place], Blood Glucose < or = 70 mg/dL and patient is NPO, unable to swallow or has mental status changes. [facility] proMETHazin e (PHENERGAN) 25 mg in NS 50 mL IV piggyback (CNR) 02-23 12:47: 00 Yes 25mg 25 mg, IV Piggyback, at 200 mL/hr Administer over 15 Minutes, Q4HPRN, Starting on Thu02/24/24 at 0747, Until Discontinu ed, Routine, Nausea and Vomiting (N/V) [facility] ondansetron (ZOFRAN (PF)) injection 4 mg 02-23 12:45: 00 02-23 12:35 :00 No 4mg 4 mg, Slow IV Push, ONCE, 1 dose, On Thu02/24/24 at 0745, [place] [facility] iopamidol (ISOVUE 370-500 mL) injection 100 mL 02-23 09:45: 00 02-23 09:45 :00 No [id number] 100mL 100 mL, Intravenou s, ONCE, 1 dose, On Thu02/24/24 at 0445, Routine [facility] NaCl 0.9% (NS) bolus infusion 500 mL 02-23 08:00: 00 02-23 09:46 :00 No 500mL at 999 mL/hr, 500 mL, IV Infusion, ONCE, 1 dose, On Thu02/24/24 at 0300, [place] [facility] potassium chloride in water 10 mEq/100 mL RTU 10 mEq 02-23 07:46: 00 02-23 09:17 :00 No 10meq 10 mEq, IV Piggyback, ONCE, 1 dose, On Thu02/24/24 at 0300, Administer over 60 Minutes, 100 mL [facility] FENTanyl PF (SUBLIMAZE (PF)) injection 50 mcg 02-23 07:45: 00 02-23 07:29 :00 No 50ug 50 mcg, Slow IV Push, ONCE, 1 dose, On Thu02/24/24 at 0245, Routine [facility] ondansetron (ZOFRAN (PF)) injection 4 mg 02-23 07:00: 00 02-23 07:29 :00 No 4mg 4 mg, Slow IV Push, ONCE, 1 dose, On Thu02/24/24 at 0200, [place] [facility] NaCl 0.9% (NS) bolus infusion 500 mL 02-23 07:00: 00 02-23 07:55 :00 No 500mL at 999 mL/hr, 500 mL, IV Infusion, ONCE, 1 dose, On Thu02/24/24 at 0200, STAT [facility] sodium chloride (NS) injection 5 mL 02-23 06:01: 43 Yes 5mL 5 mL, Intravenou s, PRN, Starting on Thu02/24/24 at 0101, Until Discontinu ed, Routine, IV line flushing [facility] Aspirin 81 MG oral Chewable Tablet 04-17 08:32: 54 Yes 81mg Take 1 tablet (81 mg total) by mouth daily Maisha constantino OZEMPIC (0.25 or 0.5 mg/dose) 2 mg/3 mL SQ Solution Pen-Injecto r 04-17 00:00: 00 Yes [id number] 3 .25mg Inject 0.25 mg into the skin once a week If tolerated after 4 weeks, increase to 0.5mg weekly Maisha constantino Metformin HCl 1000 MG oral Tablet 04-17 00:00: 00 Yes [id number] 3 1000mg Take 1 tablet (1,000 mg total) by mouth in the morning and 1 tablet (1,000 mg total) in the evening. Take with meals. Maisha constantino Atorvastati n Calcium 40 MG oral Tablet 04-17 00:00: 00 Yes [id number] 3 40mg Take 1 tablet (40 mg total) by mouth daily Maisha constanitno Insulin Aspart (NovoLOG FlexPen) 100 UNIT/ML subcutaneou s Solution Pen-injecto r 04-17 00:00: 00 Yes [id number] 3 Use as directed three times daily, inject 24 units TID plus sliding scale. Max daily dose 80 units Maisha constantino Insulin Detemir (Levemir FlexPen) 100 UNIT/ML subcutaneou s Solution Pen-injecto r 04-17 00:00: 00 Yes [id number] 3 Inject 35 units twice daily Maisha constantino Insulin Pen Needle 31G X 5 MM does not apply [facility] 04-17 00:00: 00 Yes [id number] 3 Inject insulin 5 times daily Maisha constantino Insulin Detemir (Levemir) 100 UNIT/ML subcutaneou s Solution 04-17 00:00: 00 04-17 00:00 :00 No [id number] 3 Inject 35 units twice dominguez Maisha constantino Budesonide, Inhalation, 0.5 MG/2ML inhalation Suspension 04-14 00:00: 00 Yes [id number] .5mg Take 2 mL (0.5 mg total) by nebulizati on 2 times daily Maisha constantino OZEMPIC (0.25 or 0.5 mg/dose) 2 mg/3 mL SQ Solution Pen-Injecto r 04-13 00:00: 00 04-17 00:00 :00 No [id number] 3 .25mg Inject 0.25 mg into the [...] Tab CR tablet 04-08 00:00: 00 Yes [id number] 20meq Take 1 tablet (20 mEq total) by mouth daily Maisha constantino Metoprolol Succinate 25 MG oral TABLET SR 24 HR 04-08 00:00: 00 Yes 25mg Take 1 tablet (25 mg total) by mouth daily Maisha constantino Budesonide, Inhalation, 0.5 MG/2ML inhalation Suspension 04-08 00:00: 00 Yes [id number] .5mg Take 2 mL (0.5 mg total) by nebulizati on 2 times daily Maisha constantino Insulin Aspart Prot & Aspart (NovoLOG 70/30 FlexPen ReliOn) (70-30) 100 UNIT/ML subcutaneou s Suspension Pen-injecto r 04-08 00:00: 00 Yes Inject per sliding scale Maisha constantino Insulin Glargine (Lantus SoloStar) 100 UNIT/ML subcutaneou s Solution Pen-injecto r 04-08 00:00: 00 Yes inject 30 units daily Maisha constantino Albuterol Sulfate 1.25 MG/3ML inhalation Inhalant Solution 04-08 00:00: 00 Yes [id number] 1.25mg Q.25D Take 3 mL (1.25 mg total) by nebulizati on every 6 hours as needed for wheezing Maisha constantino Amoxicillin -Pot Clavulanate 875-125 MG oral Tablet 04-08 00:00: 00 Yes [id number] 1{tbl} Take 1 tablet by mouth 2 times daily Maisha constantino Furosemide (Lasix) 20 MG oral Tablet 04-08 00:00: 00 Yes [id number] 20mg Take 1 tablet (20 mg total) by mouth daily Maisha constantino Metoprolol Succinate 25 MG oral Capsule ER 24 Hour Sprinkle 04-08 00:00: 00 Yes [id number] 25mg Take 25 mg by mouth daily Maisha constantino Lisinopril 5 MG oral Tablet 04-08 00:00: 00 Yes [id number] 5mg Take 1 tablet (5 mg total) by mouth daily Maisha constantino Insulin Detemir (Levemir) 100 UNIT/ML subcutaneou s Solution 04-08 00:00: 00 04-17 00:00 :00 No [id number] 3 Inject 30 units daily. Increase dosage by 2 units every 2 days until fasting glucose less than 140 or better. Max daily dose of 60 units Maisha constantino Insulin Aspart (NovoLOG FlexPen) 100 UNIT/ML subcutaneou s Solution Pen-injecto r 04-08 00:00: 00 04-17 00:00 :00 No [id number] 3 Use as directed three times daily, inject 10 units TID plus sliding scale. Max daily dose 60 units Maisha constantino predniSONE (DELTASONE) 10 MG oral tablet 04-08 00:00: 04-14 04:59 :00 No [id number] 40mg Take 4 tablets (40 mg total) [...] mg total) by mouth daily Maisha constantino [place]-3-aci d Ethyl Esters 1 g oral Capsule [...] 81mg Take 81 mg by mouth daily. [facility] spironolact one 25 mg tablet 2021-11 15:36: 13 Yes 25mg Take 25 mg by mouth 2 (two) times daily. [facility] omega-3-dha -epa-dpa-fi sh oil (OMEGA-3 2100) 1,050-1,200 mg Cap 2021-11 15:36: 13 Yes Take by mouth 2 (two) times daily. [facility] METOPROLOL SUCCINATE ORAL 2021-11 15:36: 13 Yes 50mg Take 50 mg by mouth 2 (two) times daily. [facility] pantoprazol e 40 mg EC tablet 2021-11 15:36: 13 Yes 40mg Take 40 mg by mouth 2 (two) times daily. [facility] atorvastati n 20 mg tablet 2021-11 11:58: 50 11-12 00:00 :00 No 40mg Take 40 mg by mouth at bedtime. [facility] famotidine 40 mg tablet 2021-11 11:58: 50 11-12 00:00 :00 No 40mg Take 40 mg by mouth daily. [facility] metoclopram nixon HCl (REGLAN) injection 10 mg 2021-11 19:45: 00 11-13 17:59 :00 No 10mg 10 mg, Slow IV Push, Q6H, 8 doses, First dose on Thu11/11/22 at 1345, Last dose on Thu11/13/22 at 0600, Routine [facility] potassium chloride in water 10 mEq/100 mL RTU 10 mEq 2021-11 15:00: 00 11-11 17:25 :00 No 10meq 10 mEq, IV Piggyback, Q1H, 2 doses, First dose on Thu11/11/22 at 0900, Last dose on Thu11/11/22 at 1000, Administer over 60 Minutes, 100 mL [facility] KCL (KLOR-CON M20) tablet 40 mEq 2021-11 14:15: 00 11-11 19:57 :00 No 40meq 40 mEq, Oral, Q2H, 3 doses, First dose on Thu11/11/22 at 0815, Last dose on Thu11/11/22 at 1200, Routine [facility] pantopraz[facility] (PROTONIX) EC tablet 40 mg 2021-11 02:00: 00 Yes 40mg 40 mg, Oral, BID, First dose on Thu11/10/22 at 2000, Until Discontinu ed, Routine [facility] potassium chloride in water 10 mEq/100 mL RTU 10 mEq 2021-11 23:45: 00 11-11 01:05 :00 No 10meq 10 mEq, IV Piggyback, ONCE, 1 dose, On Thu11/10/22 at 1745, Administer over 60 Minutes, 100 mL [facility] chloride in water 10 mEq/100 mL RTU 10 mEq 2021-11 22:00: 00 11-10 22:59 :00 No 10meq 10 mEq, IV Piggyback, ONCE, 1 dose, On Thu11/10/22 at 1600, Administer over 60 Minutes, 100 mL [facility] potassium chloride in water 10 mEq/100 mL RTU 10 mEq 2021-11 17:00: 00 11-10 20:59 :00 No 10meq 10 mEq, IV Piggyback, Q1H, 4 doses, First dose on Thu11/10/22 at 1100, Last dose on Thu11/10/22 at 1400, Administer over 60 Minutes, 100 mL [facility] KCL (KLOR-CON M20) tablet 40 mEq 2021-11 15:45: 00 11-10 14:57 :00 No 40meq 40 mEq, Oral, ONCE, 1 dose, On Thu11/10/22 at 0945, Routine [facility] insulin glargine (LANTUS U-100) injection 10 Units 2021-11 15:00: 00 Yes 10U 10 Units, Subcutaneo us, DAILY, First dose on Thu11/10/22 at 0900, Until Discontinu ed, Routine [facility] aspirin chewable tablet 81 mg 2021-11 15:00: 00 Yes 81mg 81 mg, Oral, DAILY, First dose on Thu11/10/22 at 0900, Until Discontinu ed, Routine [facility] Sliding Scale Insulin - Lispro (HumaLOG) + Fsbg Testing 2021-11 14:00: 00 Yes Subcutaneo us, TID MEALS+HS, First dose (after last modificati on) on Thu11/10/22 at 0800, Until Discontinu ed, Routine [facility] metoprolol succinate XL (TOPROL XL) tablet 50 mg 2021-11 14:00: 00 Yes 50mg 50 mg, Oral, BID, First dose on Thu11/10/22 at 0800, Until Discontinu ed [facility] apixaban (ELIQUIS) tablet 5 mg 2021-11 14:00: 00 Yes [id number] 5mg 5 mg, Oral, BID, First dose on Thu11/10/22 at 0800, Until Discontinu ed, Routine
Indicatio ns: Non-Valvul ar Atrial Fibrillati on [facility] pantoprazol e (PROTONIX) injection 40 mg 2021-11 14:00: 00 11-10 21:04 :12 No 40mg 40 mg, Slow IV Push, Q12H, First dose on Thu11/10/22 at 0800, Until Discontinu ed [facility] spironolact one (ALDACTONE) tablet 25 mg 2021-11 14:00: 00 11-10 21:02 :33 No 25mg 25 mg, Oral, BID, First dose on Thu11/10/22 at 0800, Until Discontinu ed, Routine [facility] glucagon (GLUCAGEN DIAGNOSTIC KIT) injection 1 mg 2021-11 07:13: 25 Yes 1mg 1 mg, Intramuscu lar, PRN, Starting on Thu11/10/22 at 0113, Until Discontinu ed, [place], Blood Glucose < or = 70 mg/dL and patient is unable to swallow or has mental changes. [facility] dextrose 50 % in water (D50W) injection 25 mL 2021-11 07:13: 25 Yes 25mL 25 mL, Slow IV Push, PRN, Starting on Thu11/10/22 at 0113, Until Discontinu ed, [place], Blood Glucose < or = 70 mg/dL and patient is unable to swallow or has mental status changes. [facility] ondansetron (ZOFRAN (PF)) injection 4 mg 2021-11 07:13: 15 11-11 19:30 :03 No 4mg 4 mg, Slow IV Push, Q6HPRN, Starting on Thu11/10/22 at 0113, Until Thu11/11/22 at 1330, Routine, Nausea and Vomiting (N/V) [facility] HYDROcodone -acetaminop hen (NORCO) 10-325 mg tablet 1 tablet 2021-11 07:13: 12 Yes 1{tbl} 1 tablet, Oral, Q6HPRN, Starting on Thu11/10/22 at 0113, Until Discontinu ed, Routine, Pain (scale 7-10) [facility] acetaminoph en (TYLENOL) tablet 650 mg 2021-11 07:13: 06 Yes 650mg 650 mg, Oral, Q6HPRN, Starting on Thu11/10/22 at 0113, Until Discontinu ed, Routine, Pain (scale 1-3) [facility] potassium chloride in water 10 mEq/100 mL RTU 10 mEq 2021-11 06:00: 00 11-10 06:45 :00 No 10meq 10 mEq, IV Piggyback, ONCE, 1 dose, On Thu11/10/22 at 0000, Administer over 60 Minutes, 100 mL [facility] pantoprazol e (PROTONIX) injection 40 mg 2021-11 04:45: 00 11-10 05:14 :00 No 40mg 40 mg, Slow IV Push, ONCE, 1 dose, On Thu11/09/22 at 2245 [facility] NaCl 0.9% (NS) bolus infusion 1,000 mL 2021-11 04:15: 00 11-10 04:00 :00 No 1000mL at 999 mL/hr, 1,000 mL, IV Infusion, ONCE, 1 dose, On Thu11/09/22 at 2215, STAT [facility] metoclopram nixon HCl (REGLAN) injection 10 mg 2021-11 03:15: 00 11-10 03:54 :00 No 10mg 10 mg, Slow IV Push, ONCE, 1 dose, On 11/09/22 at 2115, [place] [facility] aspirin 81 mg chewable tablet 2021-11 01:13: 48 Yes 81mg Take 81 mg by mouth daily. [facility] spironolact one 25 mg tablet 2021-11 01:13: 48 Yes 25mg Take 25 mg by mouth 2 (two) times daily. [facility] omega-3-dha -epa-dpa-fi sh oil (OMEGA-3 2100) 1,050-1,200 mg Cap 2021-11 01:13: 48 Yes Take by mouth 2 (two) times daily. [facility] METOPROLOL SUCCINATE ORAL 2021-11 01:13: 48 Yes 50mg Take 50 mg by mouth 2 (two) times daily. [facility] atorvastati n 20 mg tablet 2021-11 01:13: 48 Yes 40mg Take 40 mg by mouth at bedtime. [facility] pantoprazol e 40 mg EC tablet 2021-11 01:13: 48 Yes 40mg Take 40 mg by mouth 2 (two) times daily. [facility] famotidine 40 mg tablet 2021-11 01:13: 48 Yes 40mg Take 40 mg by mouth daily. [facility] insulin glargine (LANTUS U-100) injection 10 Units 2021-11 15:00: 00 Yes 10U 10 Units, Subcutaneo us, DAILY, First dose (after last modificati on) on 11/08/22 at 0900, Until Discontinu ed, Routine [facility] insulin glargine 100 unit/mL injection 2021-11 00:00: 00 02-23 00:00 :00 No [id number] 10U inject 10 Units under the skin daily. If not eating or if blood sugar is between 80 and 120 give HALF the dose. If blood sugar less than 80: Eat a meal and recheck. Give half dose of insulin once blood sugar over 120. [facility] insulin lispro (human) (HumaLOG U-100) injection 3 Units 2021-11 23:00: 00 Yes 3U 3 Units, Subcutaneo us, TID MEALS, First dose (after last modificati on) on Thu11/07/22 at 1700, Until Discontinu ed, Routine [facility] aspirin 81 mg chewable tablet 2021-11 17:37: 57 Yes 81mg Take 81 mg by mouth daily. [facility] spironolact one 25 mg tablet 2021-11 17:37: 57 Yes 25mg Take 25 mg by mouth 2 (two) times daily. [facility] omega-3-dha -epa-dpa-fi sh oil (OMEGA-3 2100) 1,050-1,200 mg Cap 2021-11 17:37: 57 Yes Take by mouth 2 (two) times daily. [facility] METOPROLOL SUCCINATE ORAL 2021-11 17:37: 57 Yes 50mg Take 50 mg by mouth 2 (two) times daily. [facility] atorvastati n 20 mg tablet 2021-11 17:37: 57 Yes 40mg Take 40 mg by mouth at bedtime. [facility] pantoprazol e 40 mg EC tablet 2021-11 17:37: 57 Yes 40mg Take 40 mg by mouth 2 (two) times daily. [facility] sodium phosphate 30 mmol in NaCl 0.9% (NS) 250 mL piggyback 2021-11 17:30: 00 11-07 21:49 :00 No 30mmol 30 mmol, IV Piggyback, ONCE, 1 dose, On Thu11/07/22 at 1130, Administer over 4 Hours, 250 mL [facility] apixaban (ELIQUIS) tablet 5 mg 2021-11 15:30: 00 Yes 5mg 5 mg, Oral, BID, First dose on Thu11/07/22 at 0930, Until Discontinu ed, Routine
Indicatio ns: Non-Valvul ar Atrial Fibrillati on [facility] aspirin chewable tablet 81 mg 2021-11 15:00: 00 Yes 81mg 81 mg, Oral, DAILY, First dose on Thu11/07/22 at 0900, Until Discontinu ed, Routine [facility] KCL (KLOR-CON M20) tablet 40 mEq 2021-11 15:00: 00 11-07 17:13 :00 No 40meq 40 mEq, Oral, ONCE, 1 dose, On Thu11/07/22 at 0900, Routine [facility] insulin regular, human (HUMULIN R U-500, CONC, INSULIN SC) 2021-11 14:59: 33 11-07 00:00 :00 No 35U inject 35 Units under the skin 2 (two) times daily. [facility] tirzepatide 5 mg/0.5 mL subcutaneou s injection 2021-11 14:59: 33 11-07 00:00 :00 No 5mg inject 5 mg under the skin weekly. [facility] metoprolol succinate XL (TOPROL XL) tablet 50 mg 2021-11 14:00: 00 Yes 50mg 50 mg, Oral, BID, First dose on Thu11/07/22 at 0800, Until Discontinu ed, Routine [facility] atorvastati n (LIPITOR) tablet 40 mg 2021-11 03:00: 00 Yes 40mg 40 mg, Oral, QHS, First dose on Thu11/06/22 at 2100, Until Discontinu ed, Routine [facility] metFORMIN 1,000 mg tablet 2021-11 00:00: 00 Yes [id number] 1000mg Take 1 tablet by mouth 2 (two) times daily with meals. [facility] insulin regular human (HUMULIN R) 500 unit/mL injection 2021-11 00:00: 00 Yes [id number] Do not take your scheduled regular insulin. [...] meal and cover again with sliding scale [facility] apixaban 5 mg tablet 2021-11 00:00: 00 02-23 00:00 :00 No [id number] 5mg Take 1 tablet by mouth 2 (two) times daily. Indication s: atrial fibrillati on [facility] tirzepatide (MOUNJARO) 7.5 mg/0.5 mL PnIj 2021-11 00:00: 00 11-12 00:00 :00 No [id number] 7.5mg inject 7.5 mg under the skin weekly. [facility] Sliding Scale Insulin - Lispro (HumaLOG) + Fsbg Testing 2021-11 23:00: 00 Yes Subcutaneo us, TID MEALS+HS, First dose on Thu11/06/22 at 1700, Until Discontinu ed, Routine [facility] enoxaparin (LOVENOX) injection 40 mg 2021-11 23:00: 00 11-07 15:23 :13 No 40mg 40 mg, Subcutaneo us, DAILY, First dose on Thu11/06/22 at 1700, Until Discontinu ed, Routine [facility] D5W-LR IV infusion 1,000 mL 2021-11 22:32: 00 Yes 1000mL at 150 mL/hr, IV Infusion, CONTINUOUS , Starting on Thu11/06/22 at 1645, Until Discontinu ed, Routine [facility] glucagon (GLUCAGEN DIAGNOSTIC KIT) injection 1 mg 2021-11 22:00: 35 Yes 1mg 1 mg, Intramuscu lar, PRN, Starting on Thu11/06/22 at 1600, Until Discontinu ed, [place], Blood Glucose < or = 70 mg/dL and patient is unable to swallow or has mental changes. [facility] dextrose 50 % in water (D50W) injection 25 mL 2021-11 22:00: 35 Yes 25mL 25 mL, Slow IV Push, PRN, Starting on Barbra 11/06/22 at 1600, Until Discontinu ed, [place], Blood Glucose < or = 70 mg/dL and patient is unable to swallow or has mental status changes. [facility] sodium bicarbonate 8.4 % (1 mEq/mL) injection 50 mEq 2021-11 16:15: 00 11-06 16:16 :00 No 50meq 50 mEq, Slow IV Push, ONCE, 1 dose, On Barbra 11/06/22 at 1015, Routine [facility] insulin glargine (LANTUS U-100) injection 20 Units 2021-11 15:30: 00 11-07 20:55 :57 No 20U 20 Units, Subcutaneo us, DAILY, First dose on Barbra 11/06/22 at 0930, Until Discontinu ed, Routine [facility] clotrimazol e (LOTRIMIN) 1 % topical cream 2021-11 15:00: 00 Yes Topical, DAILY, First dose on Barbra 11/06/22 at 0900, Until Discontinu ed, Routine [facility] morpHINE (2 mg/mL) injection 2 mg 2021-11 14:51: 00 11-06 16:16 :00 No 2mg 2 mg, Slow IV Push, ONCE, 1 dose, On Barbra 11/06/22 at 0900, Routine [facility] empaglifloz in-metformi n (SYNJARDY) 12.5-1,000 mg Tab 2021-11 14:36: 52 11-06 00:00 :00 No 2{tbl} Take 2 tablets by mouth 2 (two) times daily. [facility] D5W-LR IV infusion 1,000 mL 2021-11 12:45: 00 11-06 21:59 :42 No 1000mL at 200 mL/hr, IV Infusion, CONTINUOUS , Starting on Barbra 11/06/22 at 0645, Until Barbra 11/06/22 at 1559, Routine [facility] ondansetron (ZOFRAN (PF)) injection 4 mg 2021-11 11:51: 01 Yes 4mg 4 mg, Slow IV Push, Q6HPRN, Starting on Thu11/06/22 at 0551, Until Discontinu ed, [place], Nausea and Vomiting (N/V) [facility] acetaminoph en (TYLENOL) tablet 650 mg 2021-11 11:39: 11 Yes 650mg 650 mg, Oral, Q6HPRN, Starting on Thu11/06/22 at 0539, Until Discontinu ed, Routine, Pain (scale 4-6), Pain (scale 1-3), headache [facility] NaCl 0.9% (NS) bolus infusion 1,000 mL 2021-11 07:30: 00 11-06 08:22 :00 No 1000mL at 999 mL/hr, 1,000 mL, IV Infusion, ONCE, 1 dose, On Thu11/06/22 at 0130, STAT [facility] morpHINE (2 mg/mL) injection 4 mg 2021-11 07:15: 00 11-06 07:16 :00 No 4mg 4 mg, Slow IV Push, ONCE, 1 dose, On Thu11/06/22 at 0115, Routine [facility] iopamidol (ISOVUE 370-500 mL) injection 150 mL 2021-11 07:00: 00 11-06 07:00 :00 No [id number] 150mL 150 mL, Intravenou s, ONCE, 1 dose, On Thu11/06/22 at 0100, Routine [facility] NaCl 0.45% (1/2NS) 1000 mL + KCL 20 mEq 2021-11 06:45: 00 11-06 11:36 :49 No 1000mL [facility] D5W 0.45% NaCl (1/2NS) 1 L + KCL 20 mEq 2021-11 06:43: 25 11-06 11:36 :49 No IV Infusion, at 200 mL/hr, PRN - SEE INSTRUCTIO NS, Starting on Thu11/06/22 at 0043, Until Thu11/06/22 at 0536, [place], Blood glucose control [facility] acetaminoph en (TYLENOL) tablet 975 mg 2021-11 05:30: 00 11-06 04:58 :00 No 975mg 975 mg, Oral, ONCE, 1 dose, On Thu11/05/22 at 2330, [place] [facility] ondansetron (ZOFRAN (PF)) injection 4 mg 2021-11 05:30: 00 11-06 04:57 :00 No 4mg 4 mg, Slow IV Push, ONCE, 1 dose, On Thu11/05/22 at 2330, [place] [facility] sulfur hexafluorid e microsphr (LUMASON) injection 5 mL 2021-11 17:15: 00 09-04 17:15 :00 No [id number] 5mL 5 mL, Intravenou s, ONCE, 1 dose, On [place]bra 09/04/22 at 1215, Routine
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 [facility] empaglifloz in-metformi n (SYNJARDY) 12.5-1,000 mg Tab 2021-11 14:37: 28 Yes 2{tbl} Take 2 tablets by mouth 2 (two) times daily. [facility] spironolact one 25 mg tablet 2021-11 14:37: 28 Yes 25mg Take 25 mg by mouth 2 (two) times daily. [facility] omega-3-dha -epa-dpa-fi sh oil (OMEGA-3 2100) 1,050-1,200 mg Cap 2021-11 14:37: 28 Yes Take by mouth 2 (two) times daily. [facility] METOPROLOL SUCCINATE ORAL 2021-11 14:37: 28 Yes 50mg Take 50 mg by mouth 2 (two) times daily. [facility] atorvastati n 20 mg tablet 2021-11 14:37: 28 Yes 40mg Take 40 mg by mouth at bedtime. [facility] pantoprazol e 40 mg EC tablet 2021-11 14:37: 28 Yes 40mg Take 40 mg by mouth 2 (two) times daily. [facility] insulin regular, human (HUMULIN R U-500, CONC, INSULIN SC) 2021-11 14:37: 28 Yes 35U inject 35 Units under the skin 2 (two) times daily. [facility] tirzepatide 5 mg/0.5 mL subcutaneou s injection 2021-11 14:37: 28 Yes 5mg inject 5 mg under the skin weekly. [facility] SITagliptin (JANUVIA) tablet 50 mg 2021-11 14:00: 00 Yes 50mg 50 mg, Oral, DAILY, First dose on Thu09/04/22 at 0900, Until Discontinu ed, Routine [facility] insulin glargine,hu m.rec.anlog (TOUJEO SOLOSTAR U-300 INSULIN SC) 2021-11 13:06: 04 09-04 00:00 :00 No inject under the skin. [facility] apixaban (ELIQUIS) 5 mg tablet 2021-11 13:06: 04 09-04 00:00 :00 No 5mg Take 5 mg by mouth 2 (two) times daily. [facility] enoxaparin (LOVENOX) injection 40 mg 2021-11 05:45: 00 Yes 40mg 40 mg, Subcutaneo us, Q24H, First dose on Thu09/04/22 at 0045, Until Discontinu ed, Routine [facility] sennosides (SENOKOT) tablet 8.6 mg 2021-11 04:45: 00 Yes 8.6mg 8.6 mg, Oral, BID, First dose on Thu09/03/22 at 2345, Until Discontinu ed, Routine [facility] docusate (COLACE) capsule 100 mg 2022-1 0-06 04:45: 00 Yes 100mg 100 mg, Oral, BID, First dose on Thu09/03/22 at 2345, Until Discontinu ed, Routine [facility] aspirin chewable tablet 81 mg 2021-11 0-06 04:45: 00 Yes 81mg 81 mg, Oral, QAM WITH BREAKFAST, First dose on Thu09/03/22 at 2345, Until Discontinu ed, Routine [facility] sucralfate (CARAFATE) 100 mg/mL suspension 1,000 mg 2021-11 0 04:45: 00 Yes 1g 1,000 mg (1 g), Oral, AC+HS, First dose on Thu09/03/22 at 2345, Until Discontinu ed, Routine [facility] pantoprazol e (PROTONIX) injection 40 mg 2021-11 0 04:45: 00 Yes 40mg 40 mg, Slow IV Push, Q12H, First dose on Thu09/03/22 at 2345, Until Discontinu ed [facility] metoprolol tartrate (LOPRESSOR) tablet 50 mg 2021-11 0 04:45: 00 Yes 50mg 50 mg, Oral, BID, First dose on Thu09/03/22 at 2345, Until Discontinu ed, [facility] and regular human 70-30 (70-30 U-100 INSULIN) 100 unit/mL (70-30) injection 35 Units 2021-11 0 04:45: 00 Yes 35U 35 Units, Subcutaneo us, BIDAC, First dose on Thu09/03/22 at 2345, Until Discontinu ed, Routine [facility] atorvastati n (LIPITOR) tablet 40 mg 2021-11 0 04:45: 00 Yes 40mg 40 mg, Oral, QHS, First dose on Thu09/03/22 at 2345, Until Discontinu ed, Routine [facility] furosemide (LASIX) injection 20 mg 2021-11 0-06 04:45: 00 09-04 13:50 :16 No 20mg 20 mg, IV Push, Q8H, First dose on Thu09/03/22 at 2345, Until Discontinu ed, [place] [facility] ondansetron (ZOFRAN (PF)) injection 4 mg 2021-11 0 04:33: 54 Yes 4mg 4 mg, Slow IV Push, Q6HPRN, Starting on Thu09/03/22 at 2333, Until Discontinu ed, Routine, Nausea and Vomiting (N/V) [facility] Sliding Scale Insulin - Lispro (HumaLOG) + Fsbg Testing 2021-11 0 04:30: 00 Yes Subcutaneo us, TID MEALS+HS, First dose on Thu09/03/22 at 2330, Until Discontinu ed, Routine [facility] nitroglycer in (NITROSTAT) sublingual tablet 0.4 mg 2021-11 22:30: 00 09-03 22:34 :00 No .4mg 0.4 mg, Sublingual , ONCE, 1 dose, On Thu09/03/22 at 1730, [place] [facility] magnesium oxide (MAG-OX 400) tablet 400 mg 04-24 01:00: 00 04-25 12:59 :00 No 400mg 400 mg, Oral, BID, 3 doses, First dose on Thu04/23/22 at 1999, Last dose on Thu04/24/22 at 1999, Routine [facility] maalox:diph enhydrAMINE :lidocaine 2 % viscous 1:1:1 ([facility]) oral suspension 15 mL 04-23 15:47: 15 Yes 15mL 15 mL, Oral, QDAILYPRN, Starting on Thu04/23/22 at 1047, Until Discontinu ed, Routine, indigestio n [facility] insulin glargine,heydi longrec.anlog (CHIOMA JO U-300 INSULIN SC) 04-23 15:15: 25 Yes inject under the skin. [facility] aspirin 81 mg chewable tablet 04-23 15:15: 25 Yes 81mg Take 81 mg by mouth daily. [facility] empaglifloz in-metformi n (SYNJARDY) 12.5-1,000 mg Tab 04-23 15:15: 25 Yes 2{tbl} Take 2 tablets by mouth 2 (two) times daily. [facility] apixaban (ELIQUIS) 5 mg tablet 04-23 15:15: 25 Yes 5mg Take 5 mg by mouth 2 (two) times daily. [facility] spironolact one 25 mg tablet 04-23 15:15: 25 Yes 25mg Take 25 mg by mouth 2 (two) times daily. [facility] KCL (KLOR-CON M20) tablet 40 mEq 04-23 14:15: 00 04-23 15:57 :00 No 40meq 40 mEq, Oral, ONCE, 1 dose, On Thu04/23/22 at 0915, Routine [facility] insulin glargine,heydi sandovalanlog (LANTUS SC) 04-23 10:54: 26 04-23 00:00 :00 No inject under the skin. [facility] sitagliptin phosphate (JANUVIA ORAL) 04-23 10:54: 26 04-23 00:00 :00 No Take by mouth. [facility] morpHINE (2 mg/mL) injection 2 mg 04-23 10:16: 57 Yes [id number] 2mg 2 mg, Slow IV Push, Q4HPRN, Starting on Thu04/23/22 at 0516, Until Discontinu ed, Routine, Pain (scale 7-10) [facility] Sliding Scale Insulin - Lispro (HumaLOG) + Fsbg Testing 04-23 03:00: 00 Yes Subcutaneo us, Q3H, First dose on Thu04/22/22 at 2200, Until Discontinu ed, Routine [facility] insulin glargine (LANTUS U-100) injection 25 Units 04-23 03:00: 00 Yes 25U 25 Units, Subcutaneo us, Q12H, First dose on Thu04/22/22 at 2200, Until Discontinu ed, Routine [facility] glucagon (GLUCAGEN DIAGNOSTIC KIT) injection 1 mg 04-23 02:55: 16 Yes 1mg 1 mg, Intramuscu lar, PRN, Starting on Thu04/22/22 at 2155, Until Discontinu ed, [place], Blood Glucose < or = 70 mg/dL and patient is unable to swallow or has mental changes. [facility] dextrose 50 % in water (D50W) injection 25 mL 04-23 02:55: 16 Yes 25mL 25 mL, Slow IV Push, PRN, Starting on Thu04/22/22 at 2155, Until Discontinu ed, [place], Blood Glucose < or = 70 mg/dL and patient is unable to swallow or has mental status changes. [facility] sucralfate 1 gram tablet 04-23 00:00: 00 05-24 04:59 :00 No [id number] 1g Take 1 tablet by mouth before meals and at bedtime for 30 days. [facility] pantoprazol e 40 mg EC tablet 04-23 00:00: 00 05-24 04:59 :00 No [id number] 40mg Take 1 tablet by mouth 2 (two) times daily for 30 days. [facility] metoprolol tartrate 50 mg tablet 04-23 00:00: 00 05-24 04:59 :00 No [id number] 50mg Take 1 tablet by mouth 2 (two) times daily for 30 days. [facility] atorvastati n (LIPITOR) 40 mg tablet 04-23 00:00: 00 05-24 04:59 :00 No [id number] 40mg Take 1 tablet by mouth at bedtime for 30 days. [facility] magnesium oxide 420 mg Tab 04-23 00:00: 00 05-09 04:59 :00 No [id number] 400mg Take 400 mg by mouth daily for 15 days. [facility] sucralfate (CARAFATE) tablet 1 g 04-22 21:30: 00 Yes 1g 1 g, Oral, AC+HS, First dose on Thu04/22/22 at 1630, Until Discontinu ed, Routine [facility] morpHINE (4 mg/mL) injection 2 mg 04-22 16:15: 00 04-22 15:15 :00 No [id number] 2mg 2 mg, Slow IV Push, ONCE, 1 dose, On Thu04/22/22 at 1115, Routine [facility] SITagliptin (JANUVIA) tablet 50 mg 04-22 14:00: 00 Yes 50mg 50 mg, Oral, DAILY, First dose on Thu04/22/22 at 0900, Until Discontinu ed [facility] aspirin chewable tablet 81 mg 04-22 14:00: 00 Yes 81mg 81 mg, Oral, DAILY, First dose on Thu04/22/22 at 0900, Until Discontinu ed, Routine [facility] metoprolol tartrate (LOPRESSOR) tablet 25 mg 04-22 13:00: 00 Yes 25mg 25 mg, Oral, BID, First dose on Thu04/22/22 at 0800, Until Discontinu ed, Routine [facility] apixaban (ELIQUIS) tablet 5 mg 04-22 13:00: 00 Yes 5mg 5 mg, Oral, BID, First dose on Thu04/22/22 at 0800, Until Discontinu ed, Routine
Indicatio ns: Non-Valvul ar Atrial Fibrillati on [facility] pantoprazol e (PROTONIX) EC tablet 40 mg 04-22 13:00: 00 Yes 40mg 40 mg, Oral, BID, First dose on Thu04/22/22 at 0800, Until Discontinu ed, Routine [facility] D5W 0.9% NaCl (NS) 1 L + KCL 40 mEq 04-22 13:00: 00 04-23 02:32 :18 No IV Infusion, at 200 mL/hr, CONTINUOUS , Starting on Thu04/22/22 at 0800, Until Thu04/22/22 at 2132, Routine [facility] ondansetron (ZOFRAN (PF)) injection 4 mg 04-22 12:18: 40 Yes 4mg 4 mg, Slow IV Push, Q6HPRN, Nausea and Vomiting (N/V), Starting on Thu04/22/22 at 0718
Do ses of ondansetro n 16 mg and above need to be administer ed via IV piggyback. For Dose >=24mg ECG monitoring is advisable.
[facility] atorvastati n (LIPITOR) tablet 40 mg 04-22 02:00: 00 Yes 40mg 40 mg, Oral, QHS, First dose on Thu04/21/22 at 2100, Until Discontinu ed, Routine [facility] pantoprazol e (PROTONIX) injection 40 mg 04-22 01:00: 00 04-22 00:00 :00 No [id number] 40mg 40 mg, Slow IV Push, ONCE, 1 dose, On Thu04/21/22 at 1999 [facility] NaCl 0.9% (NS) bolus infusion 2,000 mL 04-22 01:00: 00 04-21 23:59 :00 No [id number] 2000mL at 999 mL/hr, 2,000 mL, IV Infusion, ONCE, 1 dose, On Thu04/21/22 at 2000, [facility] ondansetron (ZOFRAN (PF)) injection 4 mg 04-22 00:30: 00 04-21 23:26 :00 No [id number] 4mg 4 mg, Slow IV Push, ONCE, 1 dose, On Thu04/21/22 at 1930, [place] [facility] morpHINE (4 mg/mL) injection 4 mg 04-22 00:30: 00 04-21 23:26 :00 No [id number] 4mg 4 mg, Slow IV Push, ONCE, 1 dose, On Thu04/21/22 at 1930, STAT [facility] D5W 0.45% NaCl (1/2NS) IV infusion 1,000 mL 04-22 00:21: 22 04-22 11:50 :31 No [id number] 1000mL at 200 mL/hr, 1,000 mL, IV Infusion, PRN - SEE KAYLEY PALOMO, Starting on Thu04/21/22 at 1921, Until Thu04/22/22 at 0650, [place] [facility] iopamidol (ISOVUE 370-500 mL) injection 120 mL 04-21 22:15: 00 04-22 00:26 :00 No [id number] 120mL 120 mL, Intravenou s, ONCE, 1 dose, On Thu04/21/22 at 1715, Routine [facility] esomeprazol e magnesium (NEXIUM ORAL) 2020-11 14:20: 21 09-30 00:00 :00 No Take by mouth. [facility] insulin glargineheydirecPresleyanlog (LANTUS SC) 2020-11 13:40: 16 Yes inject under the skin. [facility] sitagliptin phosphate (JANUVIA ORAL) 2020-11 13:40: 16 Yes Take by mouth. [facility] aspirin 81 mg chewable tablet 2020-11 13:40: 16 Yes 81mg Take 81 mg by mouth daily. [facility] pantoprazol e 40 mg EC tablet 2020-11 00:00: 00 04-23 00:00 :00 No [id number] 40mg Take 1 tablet by mouth 2 (two) times daily. [facility] ondansetron (ZOFRAN ODT) 4 mg disintegrat ing tablet 07-02 00:00: 00 Yes [id number] 4mg Take 1 tablet by mouth every 8 (eight) hours as needed for Nausea and Vomiting (N/V). [facility] sucralfate 1 gram tablet 07-02 00:00: 00 04-23 00:00 :00 No [id number] 1g Take 1 tablet by mouth before meals and at bedtime. [facility] Immunizations Ordered Immunization Name Filled Immunization Name Date Status Comments Source Tdap- (Boostrix, Adacel) 2023-04-02 00:00:00 Completed [facility] Goddardybold - External Pneumococcal Conjugate 15 (Vaxneuvance) 2023-04-02 00:00:00 Completed [facility] Goddardybold - External Hepatitis B- 2 Dose (HEPLISAV B) 2023-04-02 00:00:00 Completed [facility] Goddardybold - External Tdap- (Boostrix, Adacel) 2023-04-02 00:00:00 Completed [facility] Goddardybold - External Pneumococcal Conjugate 15 (Vaxneuvance) 2023-04-02 00:00:00 Completed Maisha Seybold - External Hepatitis B- 2 Dose (HEPLISAV B) 2023-04-02 00:00:00 Completed [facility] Goddardybold - External Tdap- (Boostrix, Adacel) 2023-04-02 00:00:00 Completed [facility] Goddardy[facility] - External Pneumococcal Conjugate 15 (Vaxneuvance) 2023-04-02 00:00:00 Completed [facility]dardy[facility] - External Hepatitis B- 2 Dose (HEPLISAV B) 2023-04-02 00:00:00 Completed [facility] Goddardybold - External SARS-COV-2 COVID-19 VACCINE - (MODERNA) Unknown Completed [facility] SARS-COV-2 COVID-19 VACCINE - (MODERNA) Unknown Completed [facility] TDAP Unknown Completed [facility] Pneumococcal 15 Conjugate, PCV15 (Vaxneuvance) Unknown Completed [facility] HEP B, Adult Dosage Unknown Completed [facility] SARS-COV-2 COVID-19 VACCINE - (MODERNA) Unknown Completed [facility] SARS-COV-2 COVID-19 VACCINE - (MODERNA) Unknown Completed [facility] TDAP Unknown Completed [facility] Pneumococcal 15 Conjugate, PCV15 (Vaxneuvance) Unknown Completed [facility] HEP B, Adult Dosage Unknown Completed [facility] Vital Signs Vital Name Observation Time Observation Value Comments S ource Systolic blood pressure 2024-02-27 21:17:00 126 mm[Hg] [facility] Diastolic blood pressure 2024-02-27 21:17:00 70 mm[Hg] [facility] Heart rate 2024-02-27 21:17:00 97 /min [facility] Body temperature 2024-02-27 21:17:00 36.39 Chen [facility] Respiratory rate 2024-02-27 21:17:00 16 /min [facility] Oxygen saturation in Arterial blood by Pulse oximetry 2024-02-27 21:17:00 95 /min [facility] Body weight 2024-02-27 08:11:00 119.704 kg [facility] BMI 2024-02-27 08:11:00 41.33 kg/m2 [facility] Body height 2024-02-24 17:44:00 170.2 cm [facility] Systolic blood pressure 2023-04-17 13:42:00 124 mm[Hg] Maisha Seybo ld - External Diastolic blood pressure 2023-04-17 13:42:00 72 mm[Hg] Maisha Seybo ld - External Heart rate 2023-04-17 13:42:00 81 /min Kelse y Seybold - External Body temperature 2023-04-17 13:42:00 37.11 Chen Maisha Seybold - External Respiratory rate 2023-04-17 13:42:00 18 /min Maisha Seybold - External Body height 2023-04-17 13:42:00 170.2 cm Maeve ey Seybold - External Body weight 2023-04-17 13:42:00 129.729 kg Maeve ey Seybold - External BMI 2023-04-17 13:42:00 44.79 kg/m2 Maeve ey Seybold - External Systolic blood pressure 2023-04-08 13:05:00 106 mm[Hg] Maisha Seybo ld - External Diastolic blood pressure 2023-04-08 13:05:00 74 mm[Hg] Maisha Seybo ld - External Heart rate 2023-04-08 13:05:00 [...] External Body temperature 2022-11-12 18:00:00 37 Chen [facility] Systolic blood pressure 2022-11-12 17:00:00 113 mm[Hg] [facility] Diastolic blood pressure 2022-11-12 17:00:00 67 mm[Hg] [facility] Heart rate 2022-11-12 17:00:00 91 /min [facility] 2022-11-12 17:00:00 25 /min [facility] Oxygen saturation in Arterial blood by Pulse oximetry 2022-11-12 17:00:00 93 /min [facility] Body weight 2022-11-12 09:42:00 117.981 kg [facility] BMI 2022-11-12 09:42:00 40.74 kg/m2 [facility] Body height 2022-11-10 06:00:00 170.2 cm [facility] Systolic blood pressure 2022-11-07 17:53:00 106 mm[Hg] [facility] Diastolic blood pressure 2022-11-07 17:53:00 70 mm[Hg] [facility] Heart rate 2022-11-07 17:53:00 102 /min [facility] Body temperature 2022-11-07 17:53:00 37.22 Chen [facility] Respiratory rate 2022-11-07 17:53:00 22 /min [facility] Oxygen saturation in Arterial blood by Pulse oximetry 2022-11-07 17:53:00 95 /min [facility] Body height 2022-11-06 11:30:00 170.2 cm [facility] Body weight 2022-11-06 11:30:00 116.5 kg [facility] BMI 2022-11-06 11:30:00 40.23 kg/m2 [facility] Systolic blood pressure 2022-09-04 17:00:00 129 mm[Hg] [facility] Diastolic blood pressure 2022-09-04 17:00:00 84 mm[Hg] [facility] Heart rate 2022-09-04 17:00:00 85 /min [facility] Oxygen saturation in Arterial blood by Pulse oximetry 2022-09-04 17:00:00 94 /min [facility] Body temperature 2022-09-04 16:21:00 36.33 Chen [facility] Respiratory rate 2022-09-04 16:21:00 18 /min [facility] Body height 2022-09-03 22:04:00 170.2 cm [facility] Body weight 2022-09-03 22:04:00 122.834 kg [facility] BMI 2022-09-03 22:04:00 42.41 kg/m2 [facility] Systolic blood pressure 2022-04-23 18:00:00 109 mm[Hg] [facility] Diastolic blood pressure 2022-04-23 18:00:00 56 mm[Hg] [facility] Heart rate 2022-04-23 18:00:00 85 /min [facility] Respiratory rate 2022-04-23 18:00:00 20 /min [facility] Oxygen saturation in Arterial blood by Pulse oximetry 2022-04-23 17:00:00 97 /min [facility] Body temperature 2022-04-23 16:30:00 36.72 Chen [facility] Body height 2022-04-21 22:46:00 170.2 cm [facility] Body weight 2022-04-21 22:46:00 113.399 kg [facility] BMI 2022-04-21 22:46:00 39.16 kg/m2 [facility] Systolic blood pressure 2021-09-30 18:36:00 125 mm[Hg] [facility] Diastolic blood pressure 2021-09-30 18:36:00 81 mm[Hg] [facility] Heart rate 2021-09-30 18:36:00 120 /min [facility] Body temperature 2021-09-30 18:36:00 36.61 Chen [facility] Body height 2021-09-30 18:36:00 170.2 cm [facility] Body weight 2021-09-30 18:36:00 99.066 kg [facility] BMI 2021-09-30 18:36:00 34.21 kg/m2 [facility] Oxygen saturation in Arterial blood by Pulse oximetry 2021-09-30 18:36:00 93 /min [facility] Procedures Procedure Date / Time Performed Performing Clinician Source POCT GLUCOSE (AUTOMATED) 2024-02-27 21:18:00 Kvng Mcallister [facility] POCT GLUCOSE (AUTOMATED) 2024-02-27 16:59:00 Kvng Mcallister [facility] POCT GLUCOSE (AUTOMATED) 2024-02-27 12:24:00 Kvng Mcallister [facility] MAGNESIUM 2024-02-27 09:34:00 Ludwin La [facility] BASIC METABOLIC PANEL (NA, K, CL, CO2, GLUCOSE, BUN, CREATININE, CA) 2024-02-27 09:34:00 Ludwin La [facility] CBC WITH DIFF 2024-02-27 09:34:00 Ludwin La [facility] POCT GLUCOSE (AUTOMATED) 2024-02-27 02:45:00 Kvng Mcallister [facility] POCT GLUCOSE (AUTOMATED) 2024-02-26 21:32:00 Kvng Mcallister [facility] POCT GLUCOSE (AUTOMATED) 2024-02-26 17:05:00 Kvng Mcallister [facility] POCT GLUCOSE (AUTOMATED) 2024-02-26 12:32:00 Kvng Mcallister [facility] MAGNESIUM 2024-02-26 08:40:00 Ludwin La [facility] BASIC METABOLIC PANEL (NA, K, CL, CO2, GLUCOSE, BUN, CREATININE, CA) 2024-02-26 08:40:00 Ludwin La [facility] CBC WITH DIFF 2024-02-26 08:40:00 Ludwin La [facility] POCT GLUCOSE (AUTOMATED) 2024-02-26 01:14:00 Kvng Mcallister [facility] POCT GLUCOSE (AUTOMATED) 2024-02-25 21:08:00 Kvng Mcallister [facility] POCT GLUCOSE (AUTOMATED) 2024-02-25 16:24:00 Kvng Mcallister [facility] POCT GLUCOSE (AUTOMATED) 2024-02-25 14:10:00 Kvng Mcallister [facility] POCT GLUCOSE (AUTOMATED) 2024-02-25 13:01:00 Kvng Mcallister [facility] BASIC METABOLIC PANEL (NA, K, CL, CO2, GLUCOSE, BUN, CREATININE, CA) 2024-02-25 10:13:00 Marlene Swartz [facility] CBC WITH DIFF 2024-02-25 10:13:00 Marlene Swartz [facility] POCT GLUCOSE (AUTOMATED) 2024-02-25 01:29:00 Kvng Mcallister [facility] POCT GLUCOSE (AUTOMATED) 2024-02-24 21:31:00 Kvng Mcallister [facility] POCT GLUCOSE (AUTOMATED) 2024-02-24 17:59:00 Kvng Mcallister [facility] LACTIC ACID WHOLE BLOOD 2024-02-24 15:22:00 Tomas Mcallister [facility] URINALYSIS 2024-02-24 09:46:00 [facility] CT ABDOMEN PELVIS W CONTRAST 2024-02-24 08:44:48 [facility] HB ECG ROUTINE & RHYTHM STRIP 2024-02-24 07:34:15 [facility] AC PANEL 21 + LACTIC ACID 2024-02-24 07:26:00 [facility] XR CHEST 1 VW 2024-02-24 06:22:43 Anthony [facility] LIPASE 2024-02-24 06:20:00 [facility] MAGNESIUM 2024-02-24 06:20:00 [facility] TROPONIN I 2024-02-24 06:20:00 Jody Cruz [facility] COMP. METABOLIC PANEL (45835) 2024-02-24 06:20:00 [facility] CBC WITH DIFF 2024-02-24 06:20:00 Anthony [facility] GLYCOSYLATED HEMOGLOBIN (A1C) 2024-02-24 06:20:00 Reece Flores [facility] RAPID INFLUENZA A/B 2024-02-24 06:20:00 Ba Cruz [facility] N-TERMINAL PRO-BNP 2024-02-24 06:20:00 [facility] COVID-19 (ID NOW RAPID TESTING) 2024-02-24 06:20:00 [facility] LAB ONLY COVID INTERPRETATION 2024-02-24 06:20:00 [facility] POCT GLUCOSE (AUTOMATED) 2024-02-24 06:09:00 Vincent, Shinta [facility] [id number] 2023-11-10 00:00:00 [facility] REAGENT STRIP/BLOOD GLUCOSE 2023-04-17 00:00:00 Outside, Reported Maisha Moy - External TELERETINAL DIABETIC SCREENING 2023-04-02 15:16:00 DejaJohn yangElliott - External POCT GLUCOSE (AUTOMATED) 2022-11-12 17:08:00 Cole Love [facility] POCT GLUCOSE (AUTOMATED) 2022-11-12 13:30:00 Cole Love [facility] FERRITIN SERUM 2022-11-12 09:53:[address] [facility] HEPATIC FUNCTION PANEL ([id number]) (ALB,T.PRO,BILI T,BU/BC,ALT,AST,ALK PHOS) 2022-11-12 09:53:00 [facility] (NA, K, CL, CO2, GLUCOSE, BUN, CREATININE, CA) 2022-11-12 09:53:00 [facility] (AUTOMATED) 2022-11-12 02:07:00 Cole Love [facility] POCT GLUCOSE (AUTOMATED) 2022-11-11 21:59:00 Cole Love [facility] POCT GLUCOSE (AUTOMATED) 2022-11-11 17:08:00 Cole Love zeus [facility] POCT GLUCOSE (AUTOMATED) 2022-11-11 13:19:00 Cole Love zeus [facility] MAGNESIUM 2022-11-11 10:21:00 Cholo Love [facility] HEPATIC FUNCTION PANEL ([id number]) (ALB,T.PRO,BILI T,BU/BC,ALT,AST,ALK PHOS) 2022-11-11 10:21:00 [facility]OLIC PANEL (NA, K, CL, CO2, GLUCOSE, BUN, CREATININE, CA) 2022-11-11 10:21:00 Dawna Kaur [facility] CBC WITH DIFF 2022-11-11 10:21:00 [facility] POCT GLUCOSE (AUTOMATED) 2022-11-11 02:37:00 Cole Love [facility] POCT GLUCOSE (AUTOMATED) 2022-11-10 22:18:00 Cole Love [facility] US ABDOMEN LIMITED 2022-11-10 21:00:00 [facility]TIBODY 2022-11-10 19:01:00 Kate [facility] HEPATITIS B SURFACE ANTIGEN 2022-11-10 19:01:00 Kate [facility] HCV ANTIBODY 2022-11-10 19:01:00 Kate [facility] HEPATITIS A VIRUS ANTIBODY IGM 2022-11-10 19:01:00 Kate [facility] POCT GLUCOSE (AUTOMATED) 2022-11-10 17:06:00 [facility] MAGNESIUM 2022-11-10 15:00:00 [facility] COMP. METABOLIC PANEL ([id number]) 2022-11-10 15:00:00 Kate [facility] POCT GLUCOSE (AUTOMATED) 2022-11-10 13:14:00 [facility] URINALYSIS 2022-11-10 03:56:00 [facility]af[facility] URINE CULTURE 2022-11-10 03:56:00 Murali Zafar [facility] AC PANEL 20 + LACTIC ACID 2022-11-10 03:47:00 Murali Zafar [facility] LIPASE 2022-11-10 03:46:00 [facility]af[facility] TROPONIN I 2022-11-10 03:46:00 [facility]af[facility] COMP. METABOLIC PANEL ([id number]) 2022-11-10 03:46:00 Murali Zafar [facility] CBC WITH DIFF 2022-11-10 03:46:00 Murali Zafar [facility] N-TERMINAL PRO-BNP 2022-11-10 03:46:00 Murali Zafar [facility] HB ECG ROUTINE & RHYTHM STRIP 2022-11-10 03:16:17 Murali Zafar [facility] POCT GLUCOSE (AUTOMATED) 2022-11-10 03:09:00 Kvng Zafar [facility] POCT GLUCOSE (AUTOMATED) 2022-11-10 02:59:00 Kvng Zafar [facility] CONSENT/REFUSAL FOR DIAGNOSIS AND TREATMENT 2022-11-10 02:39:20 Doctor Unassigned, [place] [facility] POCT GLUCOSE (AUTOMATED) 2022-11-07 22:01:00 Yarely Cade [facility] POCT GLUCOSE (AUTOMATED) 2022-11-07 17:28:00 Yarely Cade [facility] POCT GLUCOSE (AUTOMATED) 2022-11-07 14:16:00 Yarely Cade [facility] PHOSPHORUS 2022-11-07 11:33:00 Dar Leal [facility] BETA HYDROXY-BUTYRATE 2022-11-07 11:33:00 Zeyad Leal [facility] BASIC METABOLIC PANEL (NA, K, CL, CO2, GLUCOSE, BUN, CREATININE, CA) 2022-11-07 11:33:00 Dar Leal [facility] POCT GLUCOSE (AUTOMATED) 2022-11-07 03:32:00 Yarely Cade [facility] POCT GLUCOSE (AUTOMATED) 2022-11-06 22:56:00 Abby Palomino [facility] BETA HYDROXY-BUTYRATE 2022-11-06 20:25:00 Jose Miguel Tony [facility] BASIC METABOLIC PANEL (NA, K, CL, CO2, GLUCOSE, BUN, CREATININE, CA) 2022-11-06 20:25:00 Monae Pascual [facility] POCT GLUCOSE (AUTOMATED) 2022-11-06 16:15:00 Abby Palomino [facility] BASIC METABOLIC PANEL (NA, K, CL, CO2, GLUCOSE, BUN, CREATININE, CA) 2022-11-06 11:53:00 Ankur [facility] MRSA / MSSA SCREEN BY PCR VIMAL 2022-11-06 11:53:00 [facility] 2022-11-06 11:26:00 Abby Palomino [facility] POCT GLUCOSE (AUTOMATED) 2022-11-06 09:26:00 Kvng Zafar [facility] POCT GLUCOSE(AGE >30DAYS) 2022-11-06 08:15:00 Murali Zafar [facility] PHOSPHORUS 2022-11-06 07:25:00 Murali Zafar [facility] MAGNESIUM 2022-11-06 07:25:00 Murali Zafar [facility] OSMOLALITY, SERUM OR PLASMA 2022-11-06 07:25:00 Murali Zafar [facility] BETA HYDROXY-BUTYRATE 2022-11-06 07:25:00 Leif Zafar [facility] BASIC METABOLIC PANEL (NA, K, CL, CO2, GLUCOSE, BUN, CREATININE, CA) 2022-11-06 07:25:00 Murali Zafar [facility] LIPID PANEL ([id number])(TOTAL CHOLESTEROL, TRIGLYCERIDES, HDL) 2022-11-06 07:25:00 Ankur [facility] GLYCOSYLATED HEMOGLOBIN (A1C) 2022-11-06 07:25:00 Murali Zafar [facility] POCT GLUCOSE(AGE >30DAYS) 2022-11-06 06:58:00 Murali Zafar [facility] POCT GLUCOSE (AUTOMATED) 2022-11-06 06:55:00 Kvng Zafar [facility] CRITICAL CARE 2022-11-06 06:50:18 Murali Zafar [facility] AC PANEL 20 + LACTIC ACID 2022-11-06 06:14:00 Murali Zafar [facility] CT ABDOMEN PELVIS W CONTRAST 2022-11-06 06:05:19 Murali Zafar [facility] CT CHEST PULMONARY ANGIOGRAM 2022-11-06 06:05:19 Murali Zafar [facility] BLOOD CULTURE SCREEN 2022-11-06 04:51:00 Juan Zafar [facility] LACTIC ACID WHOLE BLOOD 2022-11-06 04:50:00 Do araceli Zafar [facility] XR CHEST 1 VW 2022-11-06 04:21:53 Murali Zafar [facility] LIPASE 2022-11-06 04:08:00 [facility] TROPONIN I 2022-11-06 04:08:00 [facility] COMP. METABOLIC PANEL ([id number]) 2022-11-06 04:08:00 Murali Zafar [facility] CBC WITH DIFF 2022-11-06 04:08:00 Murali Zafar [facility] URINALYSIS 2022-11-06 04:08:00 [facility]afar [facility] URINE CULTURE 2022-11-06 04:08:00 Murali Zafar [facility] RAPID INFLUENZA A/B 2022-11-06 04:08:00 Emma Zafar [facility] N-TERMINAL PRO-BNP 2022-11-06 04:08:00 Murali Zafar [facility] COVID-19 (ID NOW RAPID TESTING) 2022-11-06 04:08:00 Murali Zafar [facility] LAB ONLY COVID INTERPRETATION 2022-11-06 04:08:00 Murali Zafar [facility] CONSENT/REFUSAL FOR DIAGNOSIS AND TREATMENT 2022-11-06 03:03:01 Doctor Unassigned, [place] [facility] HOSPITAL ADMISSION 2022-11-05 06:01:00 Doctor Un assigned, [place] [facility] POCT GLUCOSE (AUTOMATED) 2022-09-04 16:52:00 Kvng Mcallister [facility] US GALL BLADDER 2022-09-04 15:00:00 Jaxon Thomas [facility] POCT GLUCOSE (AUTOMATED) 2022-09-04 12:51:00 Kvng Mcallister [facility] TROPONIN I 2022-09-04 11:06:00 Jaxon Thomas [facility] COMP. METABOLIC PANEL ([id number]) 2022-09-04 11:06:00 Lesley, [facility] ACUTE CARE VENOUS BLOOD GAS 2022-09-04 11:06:00 Lesley [facility] CBC WITH DIFF 2022-09-04 11:06:00 Jaxon Thomas [facility] N-TERMINAL PRO-BNP 2022-09-04 11:06:00 Jaxon Thomas [facility] PHOSPHORUS 2022-09-04 05:55:00 Jaxon Thomas [facility] URIC ACID 2022-09-04 05:55:00 Jaxon Thomas [facility] MAGNESIUM 2022-09-04 05:55:00 Lesley kristin [facility] TROPONIN I 2022-09-04 05:55:00 Lesley [facility] THYROID STIMULATING HORMONE 2022-09-04 05:55:00 Lesley [facility] LIPID PANEL ([id number])(TOTAL CHOLESTEROL, TRIGLYCERIDES, HDL) 2022-09-04 05:55:00 Lesley [facility] SEDIMENTATION RATE 2022-09-04 05:55:00 Lesley [facility] PROTHROMBIN TIME / INR 2022-09-04 05:55:00 Lesley [facility] HEPATITIS B SURFACE ANTIBODY 2022-09-04 05:55:00 Lesley [facility] HEPATITIS B SURFACE ANTIGEN 2022-09-04 05:55:00 Lesley [facility] HCV ANTIBODY 2022-09-04 05:55:00 Jaxon Thomas [facility] HAV ANTIBODY (IGG AND IGM) 2022-09-04 05:55:00 Lesley [facility] PROCALCITONIN 2022-09-04 05:55:00 Jaxon Thomas [facility] POCT GLUCOSE (AUTOMATED) 2022-09-04 05:31:00 [facility] XR CHEST 1 VW 2022-09-03 22:42:00 Murali Zafar [facility] LIPASE 2022-09-03 22:26:00 [facility] TROPONIN I 2022-09-03 22:26:00 Murali Zafar [facility] COMP. METABOLIC PANEL ([id number]) 2022-09-03 22:26:00 Murali Zafar [facility] CBC WITH DIFF 2022-09-03 22:26:00 Murali Zafar [facility] GLYCOSYLATED HEMOGLOBIN (A1C) 2022-09-03 22:26:00 Jaxon Thomas [facility] ACTIVATED PARTIAL THRMPLAS KAR 2022-09-03 22:26:00 Murali Zafar [facility] N-TERMINAL PRO-BNP 2022-09-03 22:26:00 Andrade [facility] NOTICE OF PRIVACY PRACTICES 2022-09-03 21:52:55 Doctor Unassigned, [place] [facility] CONSENT/REFUSAL FOR DIAGNOSIS AND TREATMENT 2022-09-03 21:52:24 Doctor Unassigned, [place] [facility] POCT GLUCOSE (AUTOMATED) 2022-04-23 18:58:00 Cole Love [facility] POCT GLUCOSE (AUTOMATED) 2022-04-23 15:35:00 Cole Love [facility] POCT GLUCOSE (AUTOMATED) 2022-04-23 12:41:00 Cole Love [facility] POCT GLUCOSE (AUTOMATED) 2022-04-23 11:33:00 Cole Love [facility] MAGNESIUM 2022-04-23 09:33:00 Sachin Mcallister [facility] BASIC METABOLIC PANEL (NA, K, CL, CO2, GLUCOSE, BUN, CREATININE, CA) 2022-04-23 09:33:00 Sachin Mcallister [facility] POCT GLUCOSE (AUTOMATED) 2022-04-23 09:33:00 Cole Love [facility] POCT GLUCOSE (AUTOMATED) 2022-04-23 07:17:00 Cole Love [facility] POCT GLUCOSE (AUTOMATED) 2022-04-23 05:25:00 Cole Love [facility] POCT GLUCOSE (AUTOMATED) 2022-04-23 04:07:00 Cole Love [facility] POCT GLUCOSE (AUTOMATED) 2022-04-23 03:09:00 Cole Love [facility] POCT GLUCOSE (AUTOMATED) 2022-04-23 02:22:00 Cole Love [facility] BASIC METABOLIC PANEL (NA, K, CL, CO2, GLUCOSE, BUN, CREATININE, CA) 2022-04-23 01:15:00 Annette Holland [facility] POCT GLUCOSE (AUTOMATED) 2022-04-23 01:15:00 Cole Love [facility] POCT GLUCOSE (AUTOMATED) 2022-04-23 00:02:00 Cole Love [facility] POCT GLUCOSE (AUTOMATED) 2022-04-22 23:01:00 Kvng Mcallister [facility] POCT GLUCOSE (AUTOMATED) 2022-04-22 22:05:00 Kvng Mcallister [facility] BASIC METABOLIC PANEL (NA, K, CL, CO2, GLUCOSE, BUN, CREATININE, CA) 2022-04-22 21:05:00 Annette Holland [facility] POCT GLUCOSE (AUTOMATED) 2022-04-22 21:02:00 Kvng Mcallister [facility] POCT GLUCOSE (AUTOMATED) 2022-04-22 19:45:00 Kvng Mcallister [facility] POCT GLUCOSE (AUTOMATED) 2022-04-22 18:42:00 Kvng Mcallister [facility] POCT GLUCOSE (AUTOMATED) 2022-04-22 17:22:00 Cole Love [facility] POCT GLUCOSE (AUTOMATED) 2022-04-22 16:05:00 Cole Love [facility] TROPONIN I 2022-04-22 15:33:00 [facility]OL[facility] (NA, K, CL, CO2, GLUCOSE, BUN, CREATININE, CA) 2022-04-22 15:33:00 Annette Holland [facility] CBC WITH DIFF 2022-04-22 15:33:00 Cholo Love [facility] POCT GLUCOSE (AUTOMATED) 2022-04-22 14:25:00 Cole Love [facility] POCT GLUCOSE (AUTOMATED) 2022-04-22 13:39:00 Cole Love [facility] POCT GLUCOSE (AUTOMATED) 2022-04-22 12:26:00 Cole Love [facility] POCT GLUCOSE (AUTOMATED) 2022-04-22 11:30:00 Cole Love [facility] BASIC METABOLIC PANEL (NA, K, CL, CO2, GLUCOSE, BUN, CREATININE, CA) 2022-04-22 10:51:00 Annette Holland [facility] POCT GLUCOSE (AUTOMATED) 2022-04-22 10:47:00 Cole Love [facility] POCT GLUCOSE (AUTOMATED) 2022-04-22 10:44:00 Cole Love [facility] POCT GLUCOSE (AUTOMATED) 2022-04-22 09:32:00 Cole Love [facility] POCT GLUCOSE (AUTOMATED) 2022-04-22 08:34:00 Cole Love [facility] BASIC METABOLIC PANEL (NA, K, CL, CO2, GLUCOSE, BUN, CREATININE, CA) 2022-04-22 07:39:00 Annette Holland [facility] POCT GLUCOSE (AUTOMATED) 2022-04-22 07:33:00 Cole Love [facility] POCT GLUCOSE (AUTOMATED) 2022-04-22 06:29:00 Cole Love [facility] BASIC METABOLIC PANEL (NA, K, CL, CO2, GLUCOSE, BUN, CREATININE, CA) 2022-04-22 05:30:00 Annette Holland [facility] POCT GLUCOSE (AUTOMATED) 2022-04-22 05:29:00 Cole Love [facility] POCT GLUCOSE (AUTOMATED) 2022-04-22 04:32:00 Cole Love [facility] POCT GLUCOSE (AUTOMATED) 2022-04-22 03:40:00 Cole Love [facility] MRSA / MSSA SCREEN BY VIMAL ROBERT 2022-04-22 03:30:00 Cholo Love [facility] LACTIC ACID WHOLE BLOOD 2022-04-22 03:09:00 Alexandru Love [facility] POCT GLUCOSE (AUTOMATED) 2022-04-22 02:14:00 Cole Love [facility] COVID-19 (ID NOW RAPID TESTING) 2022-04-22 01:25:00 [facility] INTERPRETATION 2022-04-22 01:25:00 Skyler [facility] URINALYSIS 2022-04-22 01:23:00 Skyler [facility] BASIC METABOLIC PANEL (NA, K, CL, CO2, GLUCOSE, BUN, CREATININE, CA) 2022-04-22 01:14:00 [facility] OSMOLALITY, SERUM OR PLASMA 2022-04-22 01:11:00 Skyler [facility] BETA HYDROXY-BUTYRATE 2022-04-22 01:11[facility] 2022-04-22 01:08:00 Cole Love [facility] CT ABDOMEN PELVIS W CONTRAST 2022-04-22 00:25:33 Skyler [facility] XR CHEST 1 VW 2022-04-22 00:18:00 Annette Holland [facility] AC PANEL 21 + LACTIC ACID 2022-04-22 00:04:00 Skyler [facility] URINALYSIS 2022-04-21 23:11:00 [facility]-04-21 23:05[facility]00 [facility] 2022-04-21 23:05[facility]00 [facility] 2022-04-21 23:05:00 [facility] TROP[facility]IN I 2022-04-21 23:05:00 Skyler [facility] COMP. METABOLIC PANEL (75666) 2022-04-21 23:05:00 Annette Holland [facility] CBC WITH DIFF 2022-04-21 23:05:00 [facility]GLOBIN (A1C) 2022-04-21 23:05:00 Annette Holland [facility] PROTHROMBIN TIME / INR 2022-04-21 23:05:00 Haylee Holland [facility] N-TERMINAL PRO-BNP 2022-04-21 23:05:00 Nelly Holland [facility] HB ECG ROUTINE & RHYTHM STRIP 2022-04-21 22:57:52 Annette Holland [facility] CONSENT/REFUSAL FOR DIAGNOSIS AND TREATMENT 2022-04-21 22:36:06 Doctor Unassigned, [place] [facility] NOTICE OF PRIVACY PRACTICES 2022-04-21 22:34:32 Doctor Unassigned, [place] [facility] Encounters Start Date/Time End Date/Time Encounter Type Admission Type Attending [facility] Care Facility Care Department Encounter ID Source 2024-02-29 00:00:00 2024-02-29 00:00:00 Outpatient MAISHA EVANS [id number] Maisha Moy 2024-02-29 00:00:00 2024-02-29 00:00:00 Transition of Care Florence Downs 1..840.114 350.1.13.10 4.2.7.2.686 [id number] [facility] 2024-02-24 01:01:00 2024-02-27 17:45:00 Inpatient X SACHIN MCALLISTER [facility] JOSE ENRIQUE [id number] [facility] 2024-02-24 01:01:00 2024-02-27 17:45:00 Hospital Encounter Jody Cruz, Sachin George [facility] ..840.114 350.1.13.10 4.2.7.2.686 [id number] [facility] 2024-02-26 00:00:2024-02-26 00:00:00 Outpatient [facility] EV[facility] [id number] [facility] 2024-01-20 13:37:45 2024-01-20 13:37:45 Outpatient SFA [facility] [id number] Ron Alejandre 2023-11-18 09:30:00 2023-11-18 09:30:00 Outpatient WENDY MORENO [id number] Maisha [facility] 2023-11-10 10:33:00 2023-11-17 19:30:00 Inpatient Jeremias Hall HCABM INTE.02 [id number] [facility] 2023-11-11 09:56:00 2023-11-11 09:56:00 Outpatient Jeremias Ibarra HCACL LABO [id number] [facility] 2023-11-11 00:00:00 2023-11-11 00:00:00 Outpatient MAISHA EAVNS [id number] [facility] 2023-11-10 15:15:00 2023-11-10 15:15:00 Outpatient JOSH WENDY EVANS [id number] [facility] 2023-11-06 00:00:00 2023-11-06 00:00:00 Outpatient MAISHA EVANS [id number] Maisha [facility] 2023-10-27 00:00:00 2023-10-27 00:00:00 Outpatient MAISHA EVANS [id number] Maisha [facility] 2023-09-24 00:00:00 2023-09-24 00:00:00 Outpatient JOHN BECKFORD [id number] [facility] 2023-08-07 15:15:00 2023-08-07 15:15:00 Outpatient WENDY MORENO [id number] Maisha [facility] 2023-07-31 16:45:00 2023-07-31 16:45:00 Outpatient WENDY MORENO [id number] [facility] 2023-06-26 14:40:00 2023-06-26 14:40:00 Outpatient LYUBOV FERNÁNDEZ [id number] [facility] 2023-05-14 00:00:00 2023-05-14 00:00:00 Outpatient MD MAISHA MEADE [id number] Maisha [facility] 2023-04-23 16:00:00 2023-04-23 16:00:00 Outpatient ROHINI CHAMBERS MAISHA EVANS [id number] Maisha Seybold 2023-04-23 13:30:00 2023-04-23 13:30:00 Outpatient JOHN BECKFORD MAISHA EVANS [id number] Maisha Seybold 2023-04-21 08:00:00 2023-04-21 08:00:00 Outpatient YAYALMARCELLE [id number] Maisha Seybold 2023-04-17 09:15:00 2023-04-17 09:15:00 Outpatient WENDY MORENO [id number] Maisha Seybold 2023-04-16 00:00:00 2023-04-16 00:00:00 Outpatient MD MAISHA MEADE [id number] Maisha Seybcarole 2023-04-14 00:00:00 2023-04-14 00:00:00 Outpatient HUNDL, MARCELLE EVANS [id number] Maisha Seybold 2023-04-10 00:00:00 2023-04-10 00:00:00 Outpatient HUNDL, MARCELLE EVANS [id number] Maisha Seybold 2023-04-09 00:00:00 2023-04-09 00:00:00 Outpatient HUNDL, MARCELLE EVANS [id number] Maisha Seybold 2023-04-08 08:00:00 2023-04-08 08:00:00 Outpatient HUNDL, MARCELLE EVANS [id number] Maisha Seybold 2023-04-08 00:00:00 2023-04-08 00:00:00 Outpatient GROUPMAISHA [id number] Maisha Seybold 2023-04-08 00:00:00 2023-04-08 00:00:00 Outpatient WENDY MORENO [id number] Maisha Moy 2023-04-08 00:00:00 2023-04-08 00:00:00 Outpatient RADHA GAMINO MAISHA MAISHA [id number] [facility] 2023-04-07 00:00:00 2023-04-07 00:00:00 Outpatient JOHN BECKFORD MAISHA MAISHA [id number] Maisha Moy 2023-04-02 10:20:00 2023-04-02 10:20:00 Outpatient YINKA MAISHA EVANS [id number] [facility] 2023-04-02 09:00:00 2023-04-02 09:00:00 Outpatient JOHN BECKFORD MAISHA MAISHA [id number] Maisha [facility] 2023-04-02 00:00:00 2023-04-02 00:00:00 Outpatient AKBAR JEREZ MAISHA EVANS [id number] [facility] 2022-11-13 00:00:00 2022-11-13 00:00:00 Transition of Care Florence Botello 1.840.114 350.1.13.10 4.2.7.2.686 [id number] [facility] 2022-11-09 21:02:00 2022-11-12 15:36:00 Inpatient X CHOLO LOVE [facility] [id number] [facility] 2022-11-09 21:02:00 2022-11-12 15:36:00 Hospital Encounter Murali Zafar [facility] [place], Jelani [facility] 1..840.114 350.1.13.10 4.2.7.2.686 [id number] [facility] 2022-11-12 00:00:00 2022-11-12 00:00:00 Telephone Nata Vu [facility] 1..840.114 350.1.13.10 4.2.7.2.686 [id number] [facility] 2022-11-10 00:00:00 2022-11-10 00:00:00 Transition of Care Florence Botello 1..840.114 350.1.13.10 4.2.7.2.686 [id number] [facility] 2022-11-05 21:27:00 2022-11-07 17:37:00 Inpatient X JON CADE [facility] [id number] [facility] 2022-11-05 21:27:00 2022-11-07 17:37:00 Hospital Encounter Murali Zafar Joseph Henrie, Bradley [facility] 1..840.114 350.1.13.10 4.2.7.2.686 [id number] [facility] 2022-10-31 13:11:41 2022-10-31 13:11:41 Outpatient SFA [facility] [id number] Ron Alejandre 2022-09-24 08:23:00 2022-09-24 08:23:00 Outpatient MARQUES Charleendarlin Nataliapawel [facility] [id number] [facility] 2022-09-08 00:00:00 2022-09-08 00:00:00 Outpatient JAXON MONIQUE [facility] [id number] [facility] 2022-09-03 17:08:00 2022-09-04 13:45:00 Outpatient JAI PARKER [facility] [id number] [facility] 2022-09-03 17:08:00 2022-09-04 13:45:00 Emergency Murali Zafar David Abdullah, Yaman [facility] ..840.114 350.1.13.10 4.2.7.2.686 [id number] [facility] 2022-08-20 19:28:00 2022-08-20 19:28:00 Outpatient Sang Franklin [facility] CPUL [id number] [facility] 2022-04-24 00:00:00 2022-04-24 00:00:00 Transition of Care Rosmery Florence MORRIS .840.114 350.1.13.10 4.2.7.2.686 [id number] [facility] 2022-04-21 17:49:00 2022-04-23 15:15:00 Inpatient X SACHIN MCALLISTER [facility] JOSE ENRIQUE [id number] [facility] 2022-04-21 17:49:00 2022-04-23 15:15:00 Hospital Encounter Annette Holland, Sachin Brush [facility] .840.114 350.1.13.10 4.2.7.2.686 [id number] [facility] 2021-12-24 00:00:00 2021-12-24 00:00:00 Outpatient [facility] PIJFIFFDTZ -[id number] [facility] 2021-09-30 14:00:00 2021-09-30 14:00:00 Outpatient GERSON PISANO [facility] [id number] [facility] 2021-09-30 13:25:55 2021-09-30 13:55:55 Office Visit Dustin Cervantes Joseph Marc [facility] .840.114 350.1.13.10 4.2.7.2.686 [id number] [facility] 2021-09-30 00:00:00 2021-09-30 00:00:00 Orders Only Doctor Unassigned, [place] [facility] 1.840.114 350.1.13.10 4.2.7.2.686 [id number] [facility] 2021-08-09 00:00:00 2021-08-09 00:00:00 Orders Only Doctor Unassigned, [place] [facility] 1.2.840.114 350.1.13.10 4.2.7.2.686 [id number] [facility] 2021-07-02 15:02:00 2021-07-02 21:52:00 Emergency Marlene Taylor S [facility] 1.2.840.114 350.1.13.10 4.2.7.2.686 [id number] [facility] 2021-07-02 14:36:00 2021-07-02 14:36:00 Emergency X [facility] ERT [id number] [facility] Results Test Description Test Time Test Comments Results Result Co mments Source [facility] GLUCOSE (AUTOMATED)2024-02-27 17:00:09* Test Item Value Reference Range Interpretation Comme nts POCT GLU (test code = 3216436243) 178 mg/dL 70-110 H Lab Interpretation (test cod e = 71481-5) Abnormal [facility] GLUCOSE (AUTOMATED)2024-02-27 12:26:11* Test Item Value Reference Range Interpretation Comme nts POCT GLU (test code = 2443796191) 149 mg/dL 70-110 H Lab Interpretation (test cod e = 61072-6) Abnormal [facility] GLUCOSE (AUTOMATED)2024-02-27 02:46:57* Test Item Value Reference Range Interpretation Comme nts POCT GLU (test code = 5983132376) 193 mg/dL 70-110 H Lab Interpretation (test cod e = 20721-0) Abnormal [facility] GLUCOSE (AUTOMATED)2024-02-26 21:33:27* Test Item Value Reference Range Interpretation Comme nts POCT GLU (test code = 6504602561) 167 mg/dL 70-110 H Lab Interpretation (test cod e = 76246-0) Abnormal [facility] GLUCOSE (AUTOMATED)2024-02-26 17:06:58* Test Item Value Reference Range Interpretation Comme nts POCT GLU (test code = 7477111986) 176 mg/dL 70-110 H Lab Interpretation (test cod e = 51155-7) Abnormal [facility] GLUCOSE (AUTOMATED)2024-02-26 12:35:03* Test Item Value Reference Range Interpretation Comme nts POCT GLU (test code = 5729635681) 167 mg/dL 70-110 H Lab Interpretation (test cod e = 33673-4) Abnormal [facility] GLUCOSE (AUTOMATED)2024-02-26 01:15:17* Test Item Value Reference Range Interpretation Comme nts POCT GLU (test code = 3120075044) 193 mg/dL 70-110 H Lab Interpretation (test cod e = 34645-2) Abnormal [facility] GLUCOSE (AUTOMATED)2024-02-25 21:10:00* Test Item Value Reference Range Interpretation Comme nts POCT GLU (test code = 9359720212) 202 mg/dL 70-110 H Lab Interpretation (test cod e = 83406-1) Abnormal [facility] GLUCOSE (AUTOMATED)2024-02-25 16:27:31* Test Item Value Reference Range Interpretation Comme nts POCT GLU (test code = 7812008808) 185 mg/dL 70-110 H Lab Interpretation (test cod e = 50436-4) Abnormal [facility] GLUCOSE (AUTOMATED)2024-02-25 14:21:04* Test Item Value Reference Range Interpretation Comme nts POCT GLU (test code = 8085802435) 244 mg/dL 70-110 H Lab Interpretation (test cod e = 07675-4) Abnormal [facility] GLUCOSE (AUTOMATED)2024-02-25 13:02:39* Test Item Value Reference Range Interpretation Comme nts POCT GLU (test code = 0228971499) 199 mg/dL 70-110 H Lab Interpretation (test cod e = 94017-1) Abnormal [facility] Metabolic Panel (NA, K, CL, CO2, GLUCOSE, BUN, CREATININE, CA)2024-02-25 11:08:17* Test Item Value Reference Range Interpretation Comme nts NA (test code = 4700160169) 132 mmol/L 135-145 L K (test code = 7398708262) 3.2 mmol/L 3.5-5.0 L CL (test code = 4402277095) 98 mmol/L 98-108 CO2 TOTAL (test code = 1957801612) 25 mmol/L 23-31 AGAP (test code = 0440432746) 9 2-16 BUN (test code = 2892030647) 5 mg/dL 7-23 L GLUCOSE (test code = 9343072911) 206 mg/dL 70-110 H CREATININE (test code = 2160-0) 0.83 mg/dL 0.60-1.25 CALCIUM (test code = 5203217880) 8.8 mg/dL 8.6-10.6 eGFR (test code = 80099-1) 105.3 mL/min/1.73m2 CKD-EPI eGFR (2020). Assuming creatinine has been stable day-to-day for at least three months, the eGFR indicates Category G1 (>= 90 mL/min/1.73 m2) Lab Interpretation (test code = 63799-1) Abnormal [facility] with [id number] 10:41:51* Test Item Value Reference Range Interpretation Comme nts WBC (test code = 6690-2) 6.39 4.20-10.70 RBC (test code = 789-8) 4.13 4.26-5.52 L HGB (test code = 718-7) 12.0 g/dL 12.2-16.4 L HCT (test code = 4544-3) 35.9 % 38.4-49.3 L MCV (test code = 787-2) 86.9 fL 81.7-95.6 MCH (test code = 785-6) 29.1 pg 26.1-32.7 MCHC (test code = 786-4) 33.4 g/dL 31.2-35.0 RDW-SD (test code = 28357-4) 39.8 fL 38.5-51.6 RDW-CV (test code = 788-0) 12.5 % 12.1-15.4 PLT (test code = 777-3) 252 150-328 MPV (test code = 84981-5) 9.1 fL 9.8-13.0 L NRBC/100 WBC (test code = 0134815794) 0.0 0.0-10.0 NRBC x10^3 (test code = 4183304940) See_Comment [Automated messa ge] The system which generated this result transmitted reference range: 10*3/?L. The reference range was not used to interpret this result as normal/abnormal. GRAN MAT (NEUT) % (test code = 770-8) 54.8 % IMM GRAN % (test code = 2104822343) 0.20 % LYMPH % (test code = 736-9) 27.5 % MONO % (test code = 5905-5) 12.4 % EOS % (test code = 713-8) 4.5 % BASO % (test code = 706-2) 0.6 % GRAN MAT x10^3(ANC) (test code = 5719523878) 3.50 10*3/uL 1.99-6.95 IMM GRAN x10^3 (test code = 3122036702) 0.00-0.06 LYMPH x10^3 (test code = 731-0) 1.76 10*3/uL 1.09-3.23 MONO x10^3 (test code = 742-7) 0.79 10*3/uL 0.36-1.02 EOS x10^3 (test code = 711-2) 0.29 10*3/uL 0.06-0.53 BASO x10^3 (test code = 704-7) 0.04 10*3/uL 0.01-0.09 Lab Interpretation (test code = 46969-3) Abnormal [facility] GLUCOSE (AUTOMATED)2024-02-25 01:30:42* Test Item Value Reference Range Interpretation Comme nts POCT GLU (test code = 6180270111) 203 mg/dL 70-110 H Lab Interpretation (test cod e = 44377-1) Abnormal [facility] GLUCOSE (AUTOMATED)2024-02-24 21:33:19* Test Item Value Reference Range Interpretation Comme nts POCT GLU (test code = 7160347110) 198 mg/dL 70-110 H Lab Interpretation (test cod e = 66104-9) Abnormal [facility] GLUCOSE (AUTOMATED)2024-02-24 18:00:37* Test Item Value Reference Range Interpretation Comme nts POCT GLU (test code = 4754552250) 220 mg/dL 70-110 H Lab Interpretation (test cod e = 66026-6) Abnormal [facility] Whole [id number] 15:27:25* Test Item Value Reference Range Interpretation Comme nts LACTIC ACID (test code = 3987081586) 1.62 mmol/L 0.50-2.20 Lab Interpretation (test cod e = 71467-5) Normal [facility] CenterGlycosylated Hemoglobin (A1C)2024-02-24 15:25:42* Test Item Value Reference Range Interpretation Comme nts HGB A1C (test code = 4548-4) 11.5 % 4.0-5.7 H ZULEIMA (test code = ZULEIMA) Reference RangesNormal: <5.7%Prediabetes: 5.7 - 6.4%Diabetes: > 6.5% Lab Interpretation (test code = 03336-9) Abnormal [facility] Center[facility] A[facility] PELVIS W [id number] 13:02:45EXAM: CT ABDOMEN AND PELVIS WITH CONTRAST HISTORY: 53 years-old Male presenting with Nausea/vomiting COMPARISON: CT abdomen pelvis 11/05/2022 ultrasound abdomen 11/18/2022 TECHNIQUE AND FINDINGS: Contiguous axial imaging from the level of the lungbases through the proximal thighs was performed after the administration ofintravenous contrast. Coronal and sagittal reconstructions were obtained. AutomA and/or iterative reconstruction were used to reduce radiation dose. FINDINGS: LOWER THORAX: Bilateral subtle chronic atelectasis or scarring from priorinfection. No cardiomegaly. LIVER:Hepatomegaly and diffuse hypoattenuation of parenchyma. No focalhepatic lesions. ?Normal contour. GALLBLADDER AND BILIARY TREE: No biliary ductal dilation. Elongatedgallbladder with an 8 mm moderately dependent hyperdensity thought to begallstones. No pericholecystic inflammatory changes. SPLEEN: No splenomegaly. PANCREAS: Normal in appearance. No ductal dilation or masses. ADRENAL GLANDS: No adrenal nodules. KIDNEYS: Normal appearance and enhancement. No hydronephrosis, stones, ormasses. PERITONEUM AND RETROPERITONEUM: No free air or fluid. LYMPH NODES: No lymphadenopathy. GI TRACT: No dilation or wall thickening. The appendix is unremarkable PELVIS/BLADDER: The prostate is unremarkable. The urinary bladder iscompletely decompressed. Bladder wall thickening is noted. VESSELS: A celiomesenteric trunkis noted. BONES AND SOFT TISSUES: No suspicious lytic or sclerotic bony lesions.[facility] CenterXR CHEST 1 [id number] 12:55:45EXAM: XR CHEST 1 VW COMPARISON: Chest radiograph 11/05/2022 HISTORY: weakness FINDINGS: Lungs: The lungs are clear. and well-expanded. No pleural abnormalities. Heart/Mediastinum: The cardiomediastinal silhouette is normal in sizeaccounting for technique. Bones: No osseous lesions are detected. The soft tissues appear normalMemorial Hermann [facility] Medical CenterN-Terminal Pro-Bnp 2024-02-24 08:34:21* Test Item Value Reference Range Interpretation Comme [facility] NT-proBNP (test code = 67456-8) 21 pg/mL <=125 Lab Interpretation (test cod e = 99506-5) Normal [facility] CenterTroponin [id number] 07:37:54* Test Item Value Reference Range Interpretation Comme nts TROPONIN I (test code = 8454555678) 0.005 ng/mL <=0.034 ZULEIMA (test code = ZULEIMA) Reference (Normal) [...] of biotin. Lab Interpretation (test code = 71316-7) Normal [facility] CenterAC Panel 21 + Lactic Lwru5800-05-57 07:31:17* Test Item Value Reference Range Interpretation Comme nts PH (test code = 7817105450) 7.40 7.32-7.42 PCO2 SAKINA (test code = 9895542268) 45 41-51 PO2 SAKINA (test code = 2332665610) 33 25-40 HCO3 SAKINA (test code = 2032149946) 27 24-28 AC VBE(BEAKER) (test code = 2699477545) 1.7 mEq/L THB SAKINA (test code = 9663949493) 14.3 g/dL 13.5-18.0 %O2HB SAKINA (test code = 3004784051) 63.8 % 52.0-63.0 H %COHB SAKINA (test code = 0790368172) 0.4 % 0.0-1.5 %METHB SAKINA (test code = 4731648974) 0.0 % 0.4-1.5 L VOL%O2 SAKINA (test code = 6360538598) 12.8 % 6.0-12.0 H NA (test code = 3693426575) 133 mmol/L 135-145 L K+ (test code = 7575942321) 3.1 mmol/L 3.5-5.0 L AC CA IONZ (test code = 3137612989) 4.80 mg/dL 4.50-5.30 GLUCOSE (test code = 8899049247) 235 mg/dL 70-110 H LACTIC ACID (test code = 3940641468) 2.74 mmol/L 0.50-2.20 H Lab Interpretation (test cod e = 21599-1) Abnormal [facility] CenterMagnesium2024-03-27 07:26:35* Test Item Value Reference Range Interpretation Comme nts MAGNESIUM (test code = 3454714962) 2.0 mg/dL 1.7-2.4 Lab Interpretation (test cod e = 20039-4) Normal [facility] CenterComplete Metabolic Ichat8794-50-53 07:26:15* Test Item Value Reference Range Interpretation Comme nts NA (test code = 6335404489) 132 mmol/L 135-145 L K (test code = 4461533888) 3.1 mmol/L 3.5-5.0 L CL (test code = 5572341341) 94 mmol/L 98-108 L CO2 TOTAL (test code = 5150213420) 26 mmol/L 23-31 AGAP (test code = 2103194396) 12 2-16 BUN (test code = 5957115042) 7 mg/dL 7-23 GLUCOSE (test code = 9912114782) 235 mg/dL 70-110 H CREATININE (test code = 2160-0) 1.06 mg/dL 0.60-1.25 TOTAL BILI (test code = 1105889316) 0.9 mg/dL 0.1-1.1 CALCIUM (test code = 8794885081) 9.5 mg/dL 8.6-10.6 T PROTEIN (test code = 5210863280) 7.7 g/dL 6.3-8.2 ALBUMIN (test code = 3288300827) 4.1 g/dL 3.5-5.0 ALK PHOS (test code = 7768765131) 113 U/L 34-122 ALTv (test code = 1742-6) 171 U/L 5-50 H AST(SGOT) (test code = 4097267008) 102 U/L 13-40 H eGFR (test code = 77193-2) 84.4 mL/min/1.73m2 CKD-EPI eGFR (2020). Assuming creatinine has been stable day-to-day for at least three months, the eGFR indicates Category G2 (60 - 89 mL/min/1.73 m2) Lab Interpretation (test code = 10309-9) [facility] [id number] 07:26:15* Test Item Value Reference Range Interpretation Comme nts LIPASE (test code = 1991860318) 82 U/L 0-220 Lab Interpretation (test cod e = 31951-1) [facility] [id number] 07:10:13* Test Item Value Reference Range Interpretation Comme nts WBC (test code = 6690-2) 7.53 4.20-10.70 RBC (test code = 789-8) 4.82 4.26-5.52 HGB (test code = 718-7) 14.0 g/dL 12.2-16.4 HCT (test code = 4544-3) 41.7 % 38.4-49.3 MCV (test code = 787-2) 86.5 fL 81.7-95.6 MCH (test code = 785-6) 29.0 pg 26.1-32.7 MCHC (test code = 786-4) 33.6 g/dL 31.2-35.0 RDW-SD (test code = 82934-8) 39.2 fL 38.5-51.6 RDW-CV (test code = 788-0) 12.7 % 12.1-15.4 PLT (test code = 777-3) 363 150-328 H MPV (test code = 34655-3) 9.2 fL 9.8-13.0 L NRBC/100 WBC (test code = 0131841824) 0.0 0.0-10.0 NRBC x10^3 (test code = 3047398845) See_Comment [Automated messa ge] The system which generated this result transmitted reference range: 10*3/?L. The reference range was not used to interpret this result as normal/abnormal. GRAN MAT (NEUT) % (test code = 770-8) 46.3 % IMM GRAN % (test code = 1015659423) 0.30 % LYMPH % (test code = 736-9) 38.2 % MONO % (test code = 5905-5) 10.5 % EOS % (test code = 713-8) 3.9 % BASO % (test code = 706-2) 0.8 % GRAN MAT x10^3(ANC) (test code = 9454910492) 3.49 10*3/uL 1.99-6.95 IMM GRAN x10^3 (test code = 0986541040) 0.00-0.06 LYMPH x10^3 (test code = 731-0) 2.88 10*3/uL 1.09-3.23 MONO x10^3 (test code = 742-7) 0.79 10*3/uL 0.36-1.02 EOS x10^3 (test code = 711-2) 0.29 10*3/uL 0.06-0.53 BASO x10^3 (test code = 704-7) 0.06 10*3/uL 0.01-0.09 Lab Interpretation (test code = 11990-4) [facility] 06:11:01* Test Item Value Reference Range Interpretation Comme nts POCT GLU (test code = 6907452564) 227 mg/dL 70-110 H Lab Interpretation (test cod e = 33964-2) [facility]normal [facility] 16:12:00* Test Item Value Reference Range Interpretation Comme nts GLUBED (test code = GLUBED) 237 mg/dL 74-106 H Performed by cer tified steam frame operator at [facility] [id number] 11:26:00* Test Item Value Reference Range Interpretation Comme nts GLUBED (test code = GLUBED) 259 mg/dL 74-106 H Performed by cer tified steam frame operator at [facility] [id number] 06:28:00* Test Item Value Reference Range Interpretation Comme nts GLUBED (test code = GLUBED) 191 mg/dL 74-106 H Performed by cer tified steam frame operator at [facility] [id number] 05:29:00* Test Item Value Reference Range Interpretation Comme nts GLUBED (test code = GLUBED) 212 mg/dL 74-106 H Performed by cer tified steam frame operator at [facility] [id number] 00:12:00* Test Item Value Reference Range Interpretation Comme nts GLUBED (test code = GLUBED) 237 mg/dL 74-106 H Performed by cer tified steam frame operator at [facility] [id number] 18:02:00* Test Item Value Reference Range Interpretation Comme nts GLUBED (test code = GLUBED) 261 mg/dL 74-106 H Performed by cer tified steam frame operator at [facility] [id number] 12:13:00* Test Item Value Reference Range Interpretation Comme nts GLUBED (test code = GLUBED) 212 mg/dL 74-106 H Performed by cer tified steam frame operator at [facility] [id number] 06:14:00* Test Item Value Reference Range Interpretation Comme nts GLUBED (test code = GLUBED) 259 mg/dL 74-106 H Performed by cer tified steam frame operator at [facility] BASIC METABOLIC [id number] 05:34:00* Test Item Value Reference Range Interpretation [...] calculation forGFR is based on the CKD-EPI (2021) calculation. This formulais race indifferent and is the recommended formula for GFRby the National Kidney Foundation for Adults.The GFR will not calculate if the sex is unknown or if thepatient's age is <18 years. CREATININE (test code = CREAT) 1.00 mg/dL 0.7-1.3 N BUN/CREATININE RATIO (test code = BUN/CREA) 8.4 10-20 L CALCIUM (test code = CA) 8.6 mg/dL 8.5-10.1 N [id number] 00:21:00* Test Item Value Reference Range Interpretation Comme nts GLUBED (test code = GLUBED) 357 mg/dL 74-106 H Performed by cer tified steam frame operator at [facility] COMPREHENSIVE METABOLIC [id number] 22:24:00* Test Item Value Reference Range Interpretation [...] calculation forGFR is based on the CKD-EPI (2021) calculation. This formulais race indifferent and is [...] reference range due to change in reagent. [id number] 22:24:00* Test Item Value Reference Range Interpretation Comme nts PHOSPHORUS (test code = PHOS) 1.8 mg/dL 2.5-4.9 L [id number] 22:24:00* Test Item Value Reference Range Interpretation Comme nts MAGNESIUM (test code = MAG) 1.9 mg/dL 1.8-2.4 N [id number] 17:01:00* Test Item Value Reference Range Interpretation Comme nts GLUBED (test code = GLUBED) 299 mg/dL 74-106 H Performed by cer tified steam frame operator at [facility] [id number] 12:14:00* Test Item Value Reference Range Interpretation Comme nts GLUBED (test code = GLUBED) 335 mg/dL 74-106 H Performed by cer tified steam frame operator at [facility] [id number] 07:59:00* Test Item Value Reference Range Interpretation Comme nts GLUBED (test code = GLUBED) 329 mg/dL 74-106 H Performed by cer yamilchely steam frame operator at [facility] COMPREHENSIVE METABOLIC [id number] 06:56:00* Test Item Value Reference Range Interpretation [...] calculation forGFR is based on the CKD-EPI (2021) calculation. This formulais race indifferent and is [...] reference range due to change in reagent. [id number] 06:56:00* Test Item Value Reference Range Interpretation Comme nts PHOSPHORUS (test code = PHOS) 2.4 mg/dL 2.5-4.9 L [id number] 06:56:00* Test Item Value Reference Range Interpretation Comme nts MAGNESIUM (test code = MAG) 1.3 mg/dL 1.8-2.4 L CBC W/AUTO [id number] 06:24:00* Test Item Value Reference Range Interpretation [...] code = NRBC#) 0.00 K/mm3 0.0-0.1 N [id number] 05:49:00* Test Item Value Reference Range Interpretation Comme nts GLUBED (test code = GLUBED) 317 mg/dL 74-106 H Performed by cer tified steam frame operator at [facility] [id number] 23:52:00* Test Item Value Reference Range Interpretation Comme nts GLUBED (test code = GLUBED) 364 mg/dL 74-106 H Performed by cer tified steam frame operator at [facility] COMPREHENSIVE METABOLIC [id number] 15:47:00* Test Item Value Reference Range Interpretation [...] reference range due to change in reagent. [id number] 15:47:00* Test Item Value Reference Range Interpretation Comme nts PHOSPHORUS (test code = PHOS) 1.9 mg/dL 2.5-4.9 L [id number] 15:47:00* Test Item Value Reference Range Interpretation Comme nts MAGNESIUM (test code = MAG) 1.1 mg/dL 1.8-2.4 L [id number] 12:07:00* Test Item Value Reference Range Interpretation Comme nts GLUBED (test code = GLUBED) 375 mg/dL 74-106 H Performed by cer tified steam frame operator at [facility] COMPREHENSIVE METABOLIC [id number] 06:42:00* Test Item Value Reference Range Interpretation [...] reference range due to change in reagent. [id number] 06:42:00* Test Item Value Reference Range Interpretation Comme nts PHOSPHORUS (test code = PHOS) 2.1 mg/dL 2.5-4.9 L [id number] 06:42:00* Test Item Value Reference Range Interpretation Comme nts MAGNESIUM (test code = MAG) 1.4 mg/dL 1.8-2.4 L CBC W/AUTO [id number] 06:15:00* Test Item Value Reference Range Interpretation [...] code = NRBC#) 0.00 K/mm3 0.0-0.1 N [id number] 06:04:00* Test Item Value Reference Range Interpretation Comme nts GLUBED (test code = GLUBED) 335 mg/dL 74-106 H Performed by cer tified steam frame operator at [facility] [id number] 23:24:00* Test Item Value Reference Range Interpretation Comme nts GLUBED (test code = GLUBED) 300 mg/dL 74-106 H Performed by cer tified steam frame operator at [facility] [id number] 17:17:00* Test Item Value Reference Range Interpretation Comme nts GLUBED (test code = GLUBED) 248 mg/dL 74-106 H Performed by cer tified steam frame operator at [facility] HEPATIC FUNCTION [id number] 11:13:00* Test Item Value Reference Range Interpretation [...] reference range due to change in reagent. [id number] 11:13:00* Test Item Value Reference Range Interpretation Comme nts PHOSPHORUS (test code = PHOS) 4.1 mg/dL 2.5-4.9 N [id number] 11:13:00* Test Item Value Reference Range Interpretation Comme nts MAGNESIUM (test code = MAG) 1.3 mg/dL 1.8-2.4 L [id number] 11:06:00* Test Item Value Reference Range Interpretation Comme nts GLUBED (test code = GLUBED) 262 mg/dL 74-106 H Performed by cer tified steam frame operator at [facility] [id number] 07:45:00* Test Item Value Reference Range Interpretation Comme nts GLUBED (test code = GLUBED) 231 mg/dL 74-106 H Performed by cer tified steam frame operator at [facility] BASIC METABOLIC [id number] 06:02:00* Test Item Value Reference Range Interpretation [...] CA) 9.1 mg/dL 8.5-10.1 N CBC W/AUTO [id number] 05:50:00* Test Item Value Reference Range Interpretation [...] code = NRBC#) 0.00 K/mm3 0.0-0.1 N [id number] 05:45:00* Test Item Value Reference Range Interpretation Comme nts GLUBED (test code = GLUBED) 169 mg/dL 74-106 H Performed by cer tified steam frame operator at [facility] [id number] 23:38:00* Test Item Value Reference Range Interpretation Comme nts GLUBED (test code = GLUBED) 164 mg/dL 74-106 H Performed by cer tified steam frame operator at [facility] [id number] 16:06:00* Test Item Value Reference Range Interpretation Comme nts GLUBED (test code = GLUBED) 168 mg/dL 74-106 H Performed by cer tified steam frame operator at [facility] [id number] 11:36:00* Test Item Value Reference Range Interpretation Comme nts GLUBED (test code = GLUBED) 168 mg/dL 74-106 H Performed by cer tified steam frame operator at [facility] COMPREHENSIVE METABOLIC [id number] 10:07:00* Test Item Value Reference Range Interpretation [...] calculation forGFR is based on the CKD-EPI (2020) calculation. This formulais race indifferent and is [...] reference range due to change in reagent. [id number] 10:07:00* Test Item Value Reference Range Interpretation Comme nts PHOSPHORUS (test code = PHOS) 3.3 mg/dL 2.5-4.9 N [id number] 10:07:00* Test Item Value Reference Range Interpretation Comme nts MAGNESIUM (test code = MAG) 1.3 mg/dL 1.8-2.4 L CBC W/AUTO [id number] 09:27:00* Test Item Value Reference Range Interpretation [...] REQUIRED (test c ode = MDIFF) NO [id number] 08:20:00* Test Item Value Reference Range Interpretation Comme nts GLUBED (test code = GLUBED) 169 mg/dL 74-106 H Performed by cer tified steam frame operator at [facility] [id number] 05:18:00* Test Item Value Reference Range Interpretation Comme nts GLUBED (test code = GLUBED) 158 mg/dL 74-106 H Performed by cer tified steam frame operator at [facility] CBC W/AUTO [id number] 01:54:00* Test Item Value Reference Range Interpretation [...] NRBC#) 0.00 K/mm3 0.0-0.1 N COMPREHENSIVE METABOLIC [id number] 01:48:00* Test Item Value Reference Range Interpretation [...] calculation forGFR is based on the CKD-EPI (2020) calculation. This formulais race indifferent and is [...] reference range due to change in reagent. [id number] 01:48:00* Test Item Value Reference Range Interpretation Comme nts PHOSPHORUS (test code = PHOS) 3.3 mg/dL 2.5-4.9 N [id number] 01:48:00* Test Item Value Reference Range Interpretation Comme nts MAGNESIUM (test code = MAG) 1.4 mg/dL 1.8-2.4 L [id number] 23:59:00* Test Item Value Reference Range Interpretation Comme nts GLUBED (test code = GLUBED) 169 mg/dL 74-106 H Performed by cer tified steam frame operator at [facility] - CT CHEST W/O [id number] 22:12:00 [facility]Name: LEANDRO LEHMAN : 1970 Sex: M Name: LEANDRO LEHMAN [facility] : 1970 Age/S: 52 / M [address] [facility] Unit #: [id number] Loc: [place] [address] Phys: Danielle Oh HISTOPATHOLOGIST Acct: [id number] Dis Date: Status:ADM IN PHONE #: [phone] Exam Date: 11/11/20232204 FAX #: [phone] Reason: eval for hypoxia EXAMS: CPT CODE: [id number] CT CHEST W/O CONTRAST 56598 Clinical Indication: SOB; Comparison: None TECHNIQUE: Sequential trans-axial images were obtained thru the chest and upper abdomen without iodinated contrast. Oral contrast has been administered. Coronal and sagittal reconstructions were obtained. 0 cc of nonionic contrast material was used for the exam. One or more of the following dose reduction techniques were used: Automated exposure control, adjustment of the mA and/or kV according to patient size, and/or utilization of iterative reconstruction technique. FINDINGS: LUNG PARENCHYMAAND PLEURA: There are no lung nodules. Mild groundglass opacities and smooth interlobular septal thickening. There are no pleural effusions. There is no pneumothorax. AIRWAY: The central airway is normal. . MEDIASTINUM: No significant mediastinal lymphadenopathy. HEART: There is no evidence of RV strain. The cardiac chambers are otherwise unremarkable. There is no pericardial effusion. VASCULAR STRUCTURES: Evaluation is limited on noncontrast CT. The pulmonary arteries and great vessels are unremarkable. The thoracic aorta is within normal limits.. OSSEOUS STRUCTURES: There are no significantosseous abnormalities seen. VISUALIZED UPPER ABDOMEN: The visualized upper abdomen is within normallimits. IMPRESSION: Mild groundglass opacities and smooth interlobular septal thickening may represent infectious/inflammatory process. SL: [id number] PAGE 1 Signed Report (CONTINUED) Name: LEANDRO LEHMAN [facility] : 1970 Age/S: 52 / M Les[facility] Gerard Unit #: [id number] Loc: [place] [address] Phys: Danielle Oh NP Acct: [id number] Dis Date: Status: ADM IN PHONE #: [phone] Exam Date: 11/11/20232204 FAX #: [phone] Reason: eval for hypoxia EXAMS: CPT CODE: [id number] CT CHEST W/O CONTRAST 66225 (Continued) at 2211 Reported and signed by: Sachin Jameson M.D. CC: Danielle Oh NP; Lindsey Coyle MD; Sang Rey MD; Davion Duckworth MD Technologist:SARA MCKINNEY, RT CTDI: DLP: Trnscb Date/Time: 11/11/2023 (2211) t.SDR.DKH1 Orig Print D/T: S: 11/11/2023 (2214) PAGE 2 Signed Report [id number] 18:14:00* Test Item Value Reference Range Interpretation Comme nts GLUBED (test code = GLUBED) 170 mg/dL 74-106 H Performed by cer karen steam frame operator at [facility] - XR CHEST 1 [id number] 14:49:00 [facility])Name: LEANDRO LEHMAN : 1970 Sex: M FAX: Meryl Rey MD Breeding: St: [facility] FAX: Lindsey Coyle FAX: Sang Helms [facility] [phone] FAX: Davion Duckworth MD Name: LEANDRO LEHMAN [facility] : 1970 Age/S: 52/M [address] [facility] Unit #: [id number] Loc: S19 [place] [address] Phys: Meryl Rey MD Acct: [id number] Dis Date: Status: ADM IN PHONE #: [phone] Exam Date: 11/11/2023 1407 FAX #: [phone] Reason: RESPIRATORY FAILURE EXAMS: CPT CODE: [id number] XR CHEST 1 V 91639 REASON FOR EXAM: RESPIRATORY FAILURE Exam Order Date: 11/11/2023 1:41 PM Ordering M.D.: Meryl Rey MD PROCEDURE: - XR CHEST [...] however no airspace disease is seen. Location: [facility] at 1449 Reported and signed by: Jamie Aguilar MD CC: Meryl Rey MD; Lindsey Coyle MD; Sang Rey MD; Davion Duckworth MD Technologist: Jessica Smith RT(R); Esther Pearl RT(R) [facility] Date/Time/By: 11/11/2023 (7945) : By: [email or web address] Orig Print D/T: S: 11/11/2023 (6838) PAGE 1 Signed [id number] 11:42:00* Test Item Value Reference Range Interpretation Comme nts GLUBED (test code = GLUBED) 194 mg/dL 74-106 H Performed by cer tified steam frame operator at [facility] [id number] 05:25:00* Test Item Value Reference Range Interpretation Comme nts GLUBED (test code = GLUBED) 151 mg/dL 74-106 H Performed by cer tified steam frame operator at [facility] COMPREHENSIVE METABOLIC [id number] 01:31:00* Test Item Value Reference Range Interpretation [...] reference range due to change in reagent. [id number] 01:31:00* Test Item Value Reference Range Interpretation Comme nts PHOSPHORUS (test code = PHOS) 3.5 mg/dL 2.5-4.9 N [id number] 01:31:00* Test Item Value Reference Range Interpretation Comme nts MAGNESIUM (test code = MAG) 1.7 mg/dL 1.8-2.4 L CBC W/AUTO [id number] 01:08:00* Test Item Value Reference Range Interpretation [...] code = NRBC#) 0.00 K/mm3 0.0-0.1 N [id number] 00:02:00* Test Item Value Reference Range Interpretation Comme nts GLUBED (test code = GLUBED) 176 mg/dL 74-106 H Performed by cer tified steam frame operator at [facility] [id number] 18:44:00* Test Item Value Reference Range Interpretation [...] URL. These results were obtained using Siemens AtellHipWay IM TnIHreagent. Results from different methodologies should not becompared to one another as quantitative results and URLs mayvary by method. NOTE: A Positive Bias may occur for patients taking Biotin Supplements.NOTE: Current test methodology (pg/mL) units differ from prior test methodology (ng/mL) by a factor of 1000. [id number] 17:04:00* Test Item Value Reference Range Interpretation Comme nts GLUBED (test code = GLUBED) 158 mg/dL 74-106 H Performed by cer tified steam frame operator at [facility] INFLUENZA A B [id number] 16:12:00* Test Item Value Reference Range Interpretation Comme nts INFLUENZA A POC (test code = INFLAAG) Negative Negative INFLUENZA B POC (test code = INFLBAG) Negative Negative - CT ABD PELVIS W/O [id number] 16:12:00 [facility])Name: LEANDRO LEHMAN : 1970 Sex: M Name: LEANDRO LEHMAN [facility] : 1970 Age/S: 52 / M [address] [facility] Unit#: [id number] Loc: [place] [address] Phys: Meryl Rey MD Acct: [id number] Dis Date: Status: ADM IN PHONE #: [phone] Exam Date: 11/10/2023 1522 FAX #: [phone] Reason: ABDOMINAL PAIN/VOMETING EXAMS: CPT CODE: [id number] CT ABD PELVIS W/O CONT 56104 REASON FOR EXAM: ABDOMINAL PAIN/VOMETING EXAM ORDER DATE: 11/10/2023 1:57 PM Ordering M.D.: Meryl Rey MD PROCEDURE: Axial CT images were acquired through the abdomen/pelvis at 5 mm intervals. Sagittal and coronal reformatted images were generated. CT dose reduction protocol: Automated exposure control adjustment of mA and/or kV a ccording to patient size or iterative reconstruction dose optimization techniques were used. Phasesof contrast: None COMPARISON: Abdominal radiographs earlier today [...] No abnormal lymph nodes. Musculoskeletal structures and ab dominal wall: Degenerative changes are present in the spine PAGE 1 Signed Report (CONTINUED) Name:LEANDRO LEHMAN [facility] : 1970 Age/S: 52 / M [address] [facility] Unit #: [id number] Loc: [place] [address] Phys: Meryl Rey MD Acct: [id number] Dis Date: Status: ADM IN PHONE #: [phone] Exam Date: 11/10/2023 1528 FAX #: [phone] Reason: ABDOMINAL PAIN/VOMETING EXAMS:CPT CODE: [id number] CT ABD PELVIS W/O CONT 59502 (Continued) IMPRESSION: No acute intra-abdominal findings. Location: [facility] at 1612 Reportedand signed by: Jamie Aguilar MD CC: Meryl Rey MD; Jeremias Ibarra MD; Sang Rey MD; Davion Duckworth MD Technologist:Renay Aleman RT(R),CT CTDI: DLP: Trnscb Date/Time: 11/10/2023 (1612) t.KEITHR.RR31 Orig Print D/T: S: 11/10/2023 (1615) PAGE 2 Signed ReportB-TYPE NATRIURETIC [id number] 16:07:00* Test Item Value Reference Range Interpretation Comme nts B-TYPE NATRIURETIC PEPTIDE (test code = BNP) 19.6 pgram/mL 0-100 N - CT HEAD/BRAIN W/O [id number] 16:07:00 [facility])Name: LEANDRO LEHMAN : 1970 Sex: M Name: LEANDRO LEHMAN [facility] : 1970 Age/S: 52 / M [address] [facility] Unit #: [id number] Loc: [place] [address] Phys: Meryl Rey MD Acct: [id number] Dis Date: Status:ADM IN PHONE #: [phone] Exam Date: 11/10/2023 1528 FAX #: [phone] Reason: S/P FALL EXAMS: CPT CODE: [id number] CT HEAD/BRAIN W/O CONT 29885 HISTORY: S/P FALL TECHNIQUE: Noncontrast 2.5 mm [...] No effacement of the sulci or cohen-white matterinterface. No cortical atrophy. No signs of white matter small-vessel disease. No hydrocephalus.. No extra-axial fluid collection. Visualized paranasal sinuses are clear. Mastoid air cells and middleear cavities are clear. Orbital contents are unremarkable. IMPRESSION: Negative CT head. Location: [facility] at 1607 Reported and signed by: Jamie Aguilar MD CC: Meryl Rey MD; Jeremias Ibarra MD; Sang Rey MD; Davion Duckworth MD Technologist:Renay Aleman RT(R),CT CTDI: DLP: Trnscb Date/Time: 11/10/2023 (160) t.SDR.RR31 Orig Print D/T: S: 11/10/2023 (4230) PAGE 1 Signed VcszstKELOVEKZ-[id number] 15:47:00* Test Item Value Reference Range Interpretation Comme nts TROPONIN-HS (test code = TROPI) 12.990 pg/mL 0-54 N 99th Percentile Upper Reference Limit (URL):Females: 34 pg/mLMales: 54 pg/mL In order to distinguish acute elevations of high sensitivitytroponin from other clinical conditions, the FourthUniversal Definition of Myocardial Infarction stressesclinical assessment and the demonstration of a rise and/orfall in serial troponin results above the URL. These results were obtained using Siemens Contents First IM TnIHreagent. Results from different methodologies should not becompared to one another as quantitative results and URLs mayvary by method. NOTE: A Positive Bias may occur for patients taking Biotin Supplements.NOTE: Current test methodology (pg/mL) units differ from prior test methodology (ng/mL) by a factor of 1000. ARTERIAL BLOOD [id number] 14:20:00* Test Item Value Reference Range Interpretation Comme nts ARTERIAL BLOOD GAS PH (test code = [...] 18.0-22.0 L - XR ABDOMEN AP 1 [id number] 14:19:00 [facility]Name: LEANDRO LEHMAN : 1970 Sex: M FAX: Meryl Rey MD Breeding: [facility]: [facility] FAX: Lupe Boo MD [phone] FAX: Sang Helms MD [phone] FAX: Davion Duckworth MD Name: LEANDRO LEHMAN [facility] : 1970 Age/S: 52/M [address] [facility] Unit #: [id number] Loc: V.S19 [place] [address] Phys: Meryl Rey MD Acct: [id number] Dis Date: Status: ADM IN PHONE #: [phone] Exam Date: 11/10/2023 1345 FAX #: [phone] Reason: NAUSEA/VOMETING EXAMS: CPT CODE: [id number] XR ABDOMEN AP 1 V 11816 HISTORY: NAUSEA/VOMETING PROCEDURE: - XR ABDOMEN AP 1 V COMPARISON: None FINDINGS: Nonobstructive bowel gas pattern. No significant stool burden. No intra-abdominal mass effect. No abnormal calcifications are observed. Visualized osseous structures are intact. Visualized thorax is within normal limits. IMPRESSION: No radiographic evidence of acute intra-abdominal process. Location: [facility] at 1419 Reported and signed by: Jamie Aguilar MD CC: Meryl Rey MD; Lupe Bailon MD; Sang Rey MD; Davion Duckworth MD Technologist: Catherine Lorenzo RT(R) Trnscrd Date/Time/By:11/10/2023 (141) : By: MatthewRR31 Orig Print D/T: S: 11/10/2023 (2457) PAGE 1 Signed ReportURINALYSIS [id number] 12:26:00* Test Item Value Reference Range Interpretation Comme nts UA COLOR (test code = COLU) Light-Yellow YELLOW UA APPEARANCE (test code = APPU) CLEAR CLEAR IS THE SAMPLE FROM ER OR L&D?N IF THE ANSWER IS NO,PLEASE DOCUMENT TWO RN SIGNATURES HERE- [id number], [id number] 11/10/23 1226 UA GLUCOSE DIPSTICK (test code [...] #/LPF FEW Urine Source? Clean CatchCOMPREHENSIVE METABOLIC [id number] 12:03:00* Test Item Value Reference Range Interpretation [...] calculation forGFR is based on the CKD-EPI (2020) calculation. This formulais race indifferent and is [...] change in reagent. - XR CHEST 1 [id number] 11:57:00 [facility]Name: LEANDRO LEHMAN : 1970 Sex: M FAX: Meryl Rey MD Breeding: St: [facility] FAX: Lupe Boo MD [phone] FAX: Sang Helms MD [phone] FAX: Davion Duckworth MD Name: LEANDRO LEHMAN [facility] : 1970 Age/S: 52/M [address] [facility] Unit #: [id number] Loc: [facility] [place] [address] Phys: Meryl Rey MD Acct: [id number] Dis Date: Status: ADM IN PHONE #: [phone] Exam Date: 11/10/2023 1140 FAX #: [phone] Reason: respiratory failure EXAMS: CPT CODE: [id number] XR CHEST 1 V 02471 HISTORY: Respiratory failure.COMPARISON: Chest x- ray from September 24, 2022. Location: [facility]. Right jugular catheter with the tip pr ojected over the SVC. Patchy left interstitial infiltrate. No effusion or congestion. Mild cardiomegaly. IMPRESSION: Patchy left interstitial infiltrate. at 1157 Reported and signed by: Arnaud Duggan M.D. CC: Meryl Rey MD; Lupe Bailon MD; Sang Rey MD; Davion Duckworth MD Technologist: Mauricio KING(R) Trnscrd Date/Time/By: 11/10/2023 (2064) : By: [email or web address] Orig Print D/T: S: 11/10/2023 (1200) PAGE 1 Signed ReportLACTIC [id number] 11:54:00* Test Item Value Reference Range Interpretation Comme nts LACTIC ACID (test code = LACT) 0.8 mmol/L 0.4-1.9 N PROTHROMBIN [id number] 11:53:00* Test Item Value Reference Range Interpretation [...] (2.5-3.5) IS PATIENT ON ANTICOAGULANTS? NCBC W/AUTO [id number] 11:51:00* Test Item Value Reference Range Interpretation [...] NRBC#) 0.00 K/mm3 0.0-0.1 N REAGENT STRIP/BLOOD [id number] 00:00:00* Test Item Value Reference Range Interpretation Comme [facility] BLOOD SUGAR (test code = 461504) 263 mg/dL 65-99 A Lab Interpretation (test cod e = 51124-9) Abnormal Maisha Seybold - ExternalTELERETINAL DIABETIC [id number] 15:16:00* Test Item Value Reference Range Interpretation Comme nts IMP (test code = IMP) 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 PlanRepeat diabetic retinopathy screening in 1 year Lab Interpretation (test code = 24950-5) Abnormal [facility] GLUCOSE (AUTOMATED)2022-11-12 17:36:05* Test Item Value Reference Range Interpretation Comme nts POCT GLU (test code = 4585683752) 186 mg/dL 70-110 H Lab Interpretation (test cod e = 91242-3) Abnormal [facility] GLUCOSE (AUTOMATED)2022-11-12 14:01:05* Test Item Value Reference Range Interpretation Comme nts POCT GLU (test code = 2670145685) 143 mg/dL 70-110 H Lab Interpretation (test cod e = 37468-5) Abnormal [facility] GLUCOSE (AUTOMATED)2022-11-12 02:11:38* Test Item Value Reference Range Interpretation Comme nts POCT GLU (test code = 2985016259) 185 mg/dL 70-110 H Lab Interpretation (test cod e = 53945-7) Abnormal [facility] GLUCOSE (AUTOMATED)2022-11-11 22:21:02* Test Item Value Reference Range Interpretation Comme nts POCT GLU (test code = 6716860166) 153 mg/dL 70-110 H Lab Interpretation (test cod e = 39195-7) Abnormal [facility] GLUCOSE (AUTOMATED)2022-11-11 17:34:44* Test Item Value Reference Range Interpretation Comme nts POCT GLU (test code = 0542144445) 158 mg/dL 70-110 H Lab Interpretation (test cod e = 95770-1) Abnormal [facility] GLUCOSE (AUTOMATED)2022-11-11 13:54:40* Test Item Value Reference Range Interpretation Comme nts POCT GLU (test code = 8509765637) 145 mg/dL 70-110 H Lab Interpretation (test cod e = 78718-7) Abnormal [facility] GLUCOSE (AUTOMATED)2022-11-11 02:46:38* Test Item Value Reference Range Interpretation Comme nts POCT GLU (test code = 8547863423) 230 mg/dL 70-110 H Lab Interpretation (test cod e = 72085-9) Abnormal [facility] GLUCOSE (AUTOMATED)2022-11-10 22:41:53* Test Item Value Reference Range Interpretation Comme nts POCT GLU (test code = 4406517749) 161 mg/dL 70-110 H Lab Interpretation (test cod e = 42840-4) [facility]2022-11-10 22:09:00* Test Item Value Reference Range Interpretation Comme nts POCT GLU (test code = 2200045903) 140 mg/dL 70-110 H Lab Interpretation (test cod e = 93151-9) Abnormal [facility] GLUCOSE (AUTOMATED)2022-11-10 14:40:30* Test Item Value Reference Range Interpretation Comme nts POCT GLU (test code = 6390141543) 140 mg/dL 70-110 H Lab Interpretation (test cod e = 27731-6) Abnormal [facility] GLUCOSE (AUTOMATED)2022-11-10 13:39:06* Test Item Value Reference Range Interpretation Comme nts POCT GLU (test code = 2625829814) 129 mg/dL 70-110 H Lab Interpretation (test cod e = 08477-1) Abnormal [facility] GLUCOSE (AUTOMATED)2022-11-10 03:12:17* Test Item Value Reference Range Interpretation Comme nts POCT GLU (test code = 4350088818) 142 mg/dL 70-110 H Lab Interpretation (test cod e = 14565-1) Abnormal [facility] GLUCOSE (AUTOMATED)2022-11-07 22:01:53* Test Item Value Reference Range Interpretation Comme nts POCT GLU (test code = 5081408475) 150 mg/dL 70-110 H Lab Interpretation (test cod e = 11655-8) Abnormal [facility] GLUCOSE (AUTOMATED)2022-11-07 17:30:01* Test Item Value Reference Range Interpretation Comme nts POCT GLU (test code = 0323139349) 178 mg/dL 70-110 H Lab Interpretation (test cod e = 17839-3) Abnormal [facility] GLUCOSE (AUTOMATED)2022-11-07 14:17:47* Test Item Value Reference Range Interpretation Comme nts POCT GLU (test code = 4947652909) 156 mg/dL 70-110 H Lab Interpretation (test cod e = 26626-6) [facility]normal [facility]2022-11-07 03:33:30* Test Item Value Reference Range Interpretation Comme nts POCT GLU (test code = 6632299059) 153 mg/dL 70-110 H Lab Interpretation (test cod e = 33242-4) Abnormal [facility]2022-11-06 22:57:40* Test Item Value Reference Range Interpretation Comme nts POCT GLU (test code = 6136751990) 139 mg/dL 70-110 H Lab Interpretation (test cod e = 56027-1) Abnormal [facility] Center[facility]ET[facility] [id number] 22:26:29* Test Item Value Reference Range Interpretation Comme nts BOH (test code = 0842042222) 3.0 mmol/L ZULEIMA (test code = ZULEIMA) Normal Ranges: ? ? Nonfasting ? Less than 0.1 mmol/L ? ? Overnight Fast ? ? ? Less than 0.4 mmol/L ? ? Fasting (1-2 weeks) ?6-8 mmol/L Test developed and characteristics determined by [facility] Laboratory Services. [facility] (Na, K, Cl, CO2, Glucose, BUN, Creatinine, Ca)2022-11-06 21:22:03* Test Item Value Reference Range Interpretation Comme nts NA (test code = 4118567691) 136 mmol/L 135-145 K (test code = 2756338600) 3.9 mmol/L 3.5-5.0 Slight hemolysis CL (test code = 0763081066) 109 mmol/L 98-108 H CO2 TOTAL (test code = 6011073559) 15 mmol/L 23-31 L AGAP (test code = 4373888742) 2-16 BUN (test code = 0304266930) 7-23 L Slight hemolysis GLUCOSE (test code = 3400255330) 171 mg/dL 70-110 H CREATININE (test code = 7139275691) 0.49 mg/dL 0.60-1.25 L CALCIUM (test code = 5311579482) 7.9 mg/dL 8.6-10.6 L eGFR (test code = 8591192323) mL/min/1.73m2 ZULEIMA (test code = ZULEIMA) Association [...] imaging tests). Lab Interpretation (test code = 98165-7) Abnormal [facility])2022-11-06 16:16:50* Test Item Value Reference Range Interpretation Comme [facility] POCT GLU (test code = 1711385422) 163 mg/dL 70-110 H Lab Interpretation (test cod e = 07524-8) Abnormal [facility] Met[facility] (Na, K, Cl, CO2, Glucose, BUN, Creatinine, Ca)2022-11-06 12:51:08* Test Item Value Reference Range Interpretation Comme [facility] NA (test code = 7914258685) 135 mmol/L 135-145 K (test code = 6519989805) 4.7 mmol/L 3.5-5.0 Slight hemolysis CL (test code = 4214555780) 110 mmol/L 98-108 H CO2 TOTAL (test code = 1377077886) 12 mmol/L 23-31 L AGAP (test code = 5168989462) 2-16 BUN (test code = 8347841680) 3 mg/dL 7-23 L Slight hemolysis GLUCOSE (test code = 5588944392) 152 mg/dL 70-110 H CREATININE (test code = 0247297207) 0.62 mg/dL 0.60-1.25 CALCIUM (test code = 7041060763) 8.3 mg/dL 8.6-10.6 L eGFR (test code = 2242223515) mL/min/1.73m2 ZULEIMA (test code = ZULEIMA) Association [...] imaging tests). Lab Interpretation (test code = 55477-6) Abnormal [facility] GLUCOSE (AUTOMATED)2022-11-06 11:27:27* Test Item Value Reference Range Interpretation Comme [facility] POCT GLU (test code = 0788212663) 139 mg/dL 70-110 H Lab Interpretation (test cod e = 24387-9) Abnormal [facility] GLUCOSE (AUTOMATED)2022-11-06 09:28:37* Test Item Value Reference Range Interpretation Comme nts POCT GLU (test code = 4607884576) 137 mg/dL 70-110 H Lab Interpretation (test cod e = 81311-6) Abnormal [facility] GLUCOSE(AGE >30DAYS)2022-11-06 08:15:00* Test Item Value Reference Range Interpretation Comme nts POCT Glu (age>30days) (test code = 3342) 107 mg/dL 70-110 Lab Interpretation (test cod e = 87240-3) Normal [facility] GLUCOSE (AUTOMATED)2022-11-06 06:58:20* Test Item Value Reference Range Interpretation Comme nts POCT GLU (test code = 6573322410) 96 mg/dL 70-110 Lab Interpretation (test cod e = 43942-1) Normal [facility] GLUCOSE(AGE >30DAYS)2022-11-06 06:58:00* Test Item Value Reference Range Interpretation Comme nts POCT Glu (age>30days) (test code = 3342) 96 mg/dL 70-110 Lab Interpretation (test cod e = 43302-2) [id number] 05:12:24* Test Item Value Reference Range Interpretation Comments TROPONIN I (test code = 8777657610) 0.003 ng/mL See_Comment [Automated message] The system [...] of biotin. Lab Interpretation (test code = 08151-1) Normal [facility] Center[facility] [id number] 05:09:22* Test Item Value Reference Range Interpretation Comme nts NT-proBNP (test code = 6760729102) 58 pg/mL See_Comment [Automated message] The system which generated this result transmitted reference range: <=125. The reference range was not used to interpret this result as normal/abnormal. ZLUEIMA (test code = ZULEIMA) Biotin has been reported to cause a negative bias, interpret results relative to patient's use of biotin. Lab Interpretation (test code = 71184-6) Normal [facility] CenterCOMP. METABOLIC PANEL (07087)2022-11-06 05:00:43* Test Item Value Reference Range Interpretation Comme nts NA (test code = 8529840858) 135 mmol/L 135-145 K (test code = 2411847920) 4.3 mmol/L 3.5-5.0 CL (test code = 2425236666) 106 mmol/L 98-108 CO2 TOTAL (test code = 0191605341) 11 mmol/L 23-31 L AGAP (test code = 4603334941) 2-16 H BUN (test code = 6705551778) 3 mg/dL 7-23 L GLUCOSE (test code = 2301673540) 129 mg/dL 70-110 H CREATININE (test code = 4197739421) 0.71 mg/dL 0.60-1.25 TOTAL BILI (test code = 0025323073) 1.0 mg/dL 0.1-1.1 CALCIUM (test code = 6446255660) 8.7 mg/dL 8.6-10.6 T PROTEIN (test code = 3213992108) 6.6 g/dL 6.3-8.2 ALBUMIN (test code = 2136123143) 3.9 g/dL 3.5-5.0 ALK PHOS (test code = 5687086365) 85 U/L 34-122 ALTv (test code = 1742-6) 125 U/L 5-50 H AST(SGOT) (test code = 0875777338) 39 U/L 13-40 eGFR (test code = 0397726107) mL/min/1.73m2 ZULEIMA (test code = ZULEIMA) Association [...] imaging tests). Lab Interpretation (test code = 08350-8) Abnormal [facility] CenterLIPASE2022-12-08 05:00:43* Test Item Value Reference Range Interpretation Comme nts LIPASE (test code = 3162557944) 105 U/L 0-220 Lab Interpretation (test cod e = 38717-4) Normal [facility] CenterCB WITH [id number] 04:33:58* Test Item Value Reference Range Interpretation Comme nts WBC (test code = 6690-2) See_Comment [Automated Forensic Logic] The system which generated this result transmitted reference range: 4.20 - 10.70 10*3/?L. The reference range was not used to interpret this result as normal/abnormal. RBC (test code = 789-8) See_Comment [Automated Forensic Logic] The system which generated this result transmitted [...] 32.9 g/dL 31.2-35.0 RDW-SD (test code = 65683-9) 47.2 fL 38.5-51.6 RDW-CV (test code = 788-0) 14.2 % 12.1-15.4 PLT (test code = 777-3) See_Comment [Automated messa ge] The system which generated this result transmitted reference range: 150 - 328 10*3/?L. The reference range was not used to interpret this result as normal/abnormal. MPV (test code = 46866-9) 8.5 fL 9.8-13.0 L NRBC/100 WBC (test code = 0047715425) See_Comment [Automated NotesFirst ssage] The system which generated this result transmitted reference range: 0.0 - 10.0 /100 WBCs. The reference range was not used to interpret this result as normal/abnormal. NRBC x10^3 (test code = 3944615191) See_Comment [Automated messa ge] The system which generated this result transmitted reference range: 10*3/?L. The reference range was not used to interpret this result as normal/abnormal. GRAN MAT (NEUT) % (test code = 770-8) 53.8 % IMM GRAN % (test code = 7639038955) 0.60 % LYMPH % (test code = 736-9) 34.6 % MONO % (test code = 5905-5) 8.3 % EOS % (test code = 713-8) 2.4 % BASO % (test code = 706-2) 0.3 % GRAN MAT x10^3(ANC) (test code = 0326367599) 3.85 10*3/uL 1.99-6.95 IMM GRAN x10^3 (test code = 6872806487) 0.04 10*3/uL 0.00-0.06 LYMPH x10^3 (test code = 731-0) 2.47 10*3/uL 1.09-3.23 MONO x10^3 (test code = 742-7) 0.59 10*3/uL 0.36-1.02 EOS x10^3 (test code = 711-2) 0.17 10*3/uL 0.06-0.53 BASO x10^3 (test code = 704-7) 0.01-0.09 Lab Interpretation (test code = 76963-6) Abnormal [facility]- XR CHEST 1 [id number] 09:27:00 [facility] 1970 Sex: M Name: [facility] : 1970 Age/S: 51 / M [address] Unit #: [id number] Loc: [place] [address] Phys: Randall Veloz MD Acct: [id number] Dis Date: Status[facility] PHONE #: [phone] Exam Date: 09/24/2022 0910 FAX #: Reason: PRE OP EXAMS: CPT: [id number] XR CHEST 1 V 97187 Fluoro Time: DAP (Gy m2): Air Kerma (mGy): EXAMINATION: - XR CHEST 1 V. LOCATION: [facility]. HISTORY: PRE OP, GERD. COMPARISON: None. FINDINGS: Examination is limited due to portable technique and patient body habitus. Cardiac silhouette/Mediastinal contour: Prominence of cardiac silhouette. Lungs: No focal consolidation. No large pleural effusion. Osseous Structures: Mild degenerative changes affect thoracic spine. IMPRESSION: No focal consolidation. Prominence of cardiac silhouette. at 0927 Reported and signedby: Sil Hooks M.D. CC: Randall Veloz MD; Lukasz Saul MD PAGE 1 Signed Report Name: [facility] 1970 Age/S: 51 / M [address] [address] [place] Unit #: [id number]: Trisha Messina [address] Phys: Randall Veloz MD Acct: [id number] Dis Date: Status: REG SDC PHONE #: [phone] Exam Date: 09/24/2022 0910 FAX #: Reason: PRE OP EXAMS: CPT: [id number] XR CHEST 1 V 56032 Fluoro Time: DAP (Gy m2): Air Kerma (mGy): (Continued) Technologist: Delano Sorenson, RT(R)(CT) Trnscb Date/Time: 09/24/2022 (926) [email or web address] Orig Print D/T: S: 09/24/2022 (8881) PAGE 2 Signed ReportCBC W/AUTO [id number] 09:06:00* Test Item Value Reference Range Interpretation [...] = MDIFF) NO DIFF/SCN CRITERIA BASIC METABOLIC [id number] 09:00:00* Test Item Value Reference Range Interpretation [...] 8.9 MG/DL 8.5-10.1 N COVID 19 INHOUSE [id number] 08:52:00* Test Item Value Reference Range Interpretation Comme nts COVID 19 INHOUSE AG (test code = AFHAQ81RBIJ) NEGATIVE Negative Per air traffic instructor , negative results should be treated aspresumptive [...] Test Item Value Reference Range Interpretation Comme [facility] POCT GLU (test code = 6011483495) 193 mg/dL 70-110 H Lab Interpretation (test cod e = 88351-0) Abnormal [facility] GLUCOSE (AUTOMATED)2022-09-04 13:42:12* Test Item Value Reference Range Interpretation Comme [facility] POCT GLU (test code = 7098252408) 185 mg/dL 70-110 H Lab Interpretation (test cod e = 58036-1) Abnormal [facility] GLUCOSE (AUTOMATED)2022-09-04 05:36:51* Test Item Value Reference Range Interpretation Comme nts POCT GLU (test code = 0499244961) 204 mg/dL 70-110 H Lab Interpretation (test cod e = 59868-4) Abnormal [facility] CenterGLYCOSYLATED HEMOGLOBIN (A1C)2022-09-04 05:24:19* Test Item Value Reference Range Interpretation Comme nts HGB A1C (test code = 4548-4) 9.2 % 4-5.7 H ZULEIMA (test code = ZULEIMA) Reference RangesNormal: <5.7%Prediabetes: 5.7 - 6.4%Diabetes: > 6.5% Lab Interpretation (test code = 89284-1) Abnormal [facility] CenterTROPONIN [id number] 22:58:29* Test Item Value Reference Range Interpretation Comments TROPONIN I (test code = 3845693351) 0.002 ng/mL See_Comment [Automated message] The system [...] of biotin. Lab Interpretation (test code = 19068-7) Normal [facility] CenterN-TERMINAL [id number] 22:55:11* Test Item Value Reference Range Interpretation Comme [facility] NT-proBNP (test code = 9960402705) 29 pg/mL See_Comment [Automated message] The system which generated this result transmitted reference range: <=125. The reference range was not used to interpret this result as normal/abnormal. ZULEIMA (test code = ZULEIMA) Biotin has been reported to cause a negative bias, interpret results relative to patient's use of biotin. Lab Interpretation (test code = 78701-5) Normal [facility] CenterACTIVATED PARTIAL THRMPLAS [id number] 22:51:28* Test Item Value Reference Range Interpretation Comme nts APTT Patient (test code = 3173-2) See_Comment L [Automated message] The system which generated this result transmitted reference range: 23 - 38 Seconds. The reference range was not used to interpret this result as normal/abnormal. ZULEIMA (test code = ZULEIMA) The [facility] patient population mean normal value for aPTT is 30 seconds. Lab Interpretation (test code = 54459-1) Abnormal [facility] CenterCOMP. METABOLIC PANEL (95487)2022-09-03 22:46:28* Test Item Value Reference Range Interpretation Comme nts NA (test code = 2254032750) 137 mmol/L 135-145 K (test code = 9714583429) 5.1 mmol/L 3.5-5 H CL (test code = 1877829739) 103 mmol/L 98-108 CO2 TOTAL (test code = 0486498505) 21 mmol/L 23-31 L AGAP (test code = 3953574111) 2-16 BUN (test code = 3289435165) 18 mg/dL 7-23 GLUCOSE (test code = 0692556778) 360 mg/dL 70-110 H CREATININE (test code = 5471276264) 0.84 mg/dL 0.6-1.25 TOTAL BILI (test code = 7473064379) 0.7 mg/dL 0.1-1.1 CALCIUM (test code = 5308345525) 9.2 mg/dL 8.6-10.6 T PROTEIN (test code = 1983610854) 6.7 g/dL 6.3-8.2 ALBUMIN (test code = 7329947515) 4.3 g/dL 3.5-5 ALK PHOS (test code = 3726050895) 140 U/L 34-122 H ALTv (test code = 1742-6) 727 U/L 5-50 H AST(SGOT) (test code = 0870512820) 348 U/L 13-40 H eGFR (test code = 3118885881) mL/min/1.73m2 ZULEIMA (test code = ZULEIMA) Association [...] imaging tests). Lab Interpretation (test code = 14545-5) Abnormal [facility] Center[facility]2022-[facility]-05 22:46:09* Test Item Value Reference Range Interpretation Comme nts LIPASE (test code = 8552146647) 252 U/L 0-220 H Lab Interpretation (test cod e = 62352-8) Abnormal [facility] WITH [id number] 22:35:24* Test Item Value Reference Range Interpretation Comme nts WBC (test code = 6690-2) See_Comment [Yurpy] The system which generated this result transmitted reference range: 4.20 - 10.70 10*3/?L. The reference range was not used to interpret this result as normal/abnormal. RBC (test code = 789-8) See_Comment [Yurpy] The system which generated this result transmitted [...] 32.6 g/dL 31.2-35 RDW-SD (test code = 74812-1) 50.6 fL 38.5-51.6 RDW-CV (test code = 788-0) 16.0 % 12.1-15.4 H PLT (test code = 777-3) See_Comment [Automated messa ge] The system which generated this result transmitted reference range: 150 - 328 10*3/?L. The reference range was not used to interpret this result as normal/abnormal. MPV (test code = 80138-4) 9.1 fL 9.8-13 L NRBC/100 WBC (test code = 4176428981) See_Comment [Automated NotesFirst ssage] The system which generated this result transmitted reference range: 0.0 - 10.0 /100 WBCs. The reference range was not used to interpret this result as normal/abnormal. NRBC x10^3 (test code = 1340355460) See_Comment [Automated [employer] ge] The system which generated this result transmitted reference range: 10*3/?L. The reference range was not used to interpret this result as normal/abnormal. GRAN MAT (NEUT) % (test code = 770-8) 74.4 % IMM GRAN % (test code = 2491255936) 1.60 % LYMPH % (test code = 736-9) 17.8 % MONO % (test code = 5905-5) 5.7 % EOS % (test code = 713-8) 0.1 % BASO % (test code = 706-2) 0.4 % GRAN MAT x10^3(ANC) (test code = 8957995441) 6.35 10*3/uL 1.99-6.95 IMM GRAN x10^3 (test code = 6958887513) 0.14 10*3/uL 0-0.06 H LYMPH x10^3 (test code = 731-0) 1.52 10*3/uL 1.09-3.23 MONO x10^3 (test code = 742-7) 0.49 10*3/uL 0.36-1.02 EOS x10^3 (test code = 711-2) 0.06-0.53 L BASO x10^3 (test code = 704-7) 0.03 10*3/uL 0.01-0.09 Lab Interpretation (test code = 77993-9) Abnormal [facility] GLUCOSE (AUTOMATED)2022-04-23 19:01:02* Test Item Value Reference Range Interpretation Comme nts POCT GLU (test code = 7888942633) 174 mg/dL 70-110 H Lab Interpretation (test cod e = 78630-7) Abnormal [facility] GLUCOSE (AUTOMATED)2022-04-23 16:43:23* Test Item Value Reference Range Interpretation Comme nts POCT GLU (test code = 6074423470) 162 mg/dL 70-110 H Lab Interpretation (test cod e = 69161-5) Abnormal [facility] GLUCOSE (AUTOMATED)2022-04-23 15:37:41* Test Item Value Reference Range Interpretation Comme nts POCT GLU (test code = 3267244527) 130 mg/dL 70-110 H Lab Interpretation (test cod e = 22129-2) Abnormal [facility] GLUCOSE (AUTOMATED)2022-04-23 12:54:00* Test Item Value Reference Range Interpretation Comme nts POCT GLU (test code = 9417548878) 135 mg/dL 70-110 H Lab Interpretation (test cod e = 87106-8) Abnormal [facility] METABOLIC PANEL (NA, K, CL, CO2, GLUCOSE, BUN, CREATININE, CA)2022-04-23 11:38:26* Test Item Value Reference Range Interpretation Comme nts NA (test code = 5079572452) 137 mmol/L 135-145 K (test code = 1359516948) 3.2 mmol/L 3.5-5.0 L CL (test code = 0178883293) 110 mmol/L 98-108 H CO2 TOTAL (test code = 9124177205) 19 mmol/L 23-31 L AGAP (test code = 3322359532) 2-16 BUN (test code = 2174459160) <2 7-23 L GLUCOSE (test code = 6664020408) 121 mg/dL 70-110 H CREATININE (test code = 4754683008) 0.67 mg/dL 0.60-1.25 CALCIUM (test code = 8224135147) 7.7 mg/dL 8.6-10.6 L eGFR (test code = 5286695744) mL/min/1.73m2 ZULEIMA (test code = ZULEIMA) Association [...] imaging tests). Lab Interpretation (test code = 65481-5) Abnormal [facility] GLUCOSE (AUTOMATED)2022-04-23 11:35:25* Test Item Value Reference Range Interpretation Comme nts POCT GLU (test code = 4271174591) 135 mg/dL 70-110 H Lab Interpretation (test cod e = 32283-8) Abnormal [facility] CenterMAGNESIUM2022-05-25 11:05:56* Test Item Value Reference Range Interpretation Comme nts MAGNESIUM (test code = 7227880138) 1.7 mg/dL 1.7-2.4 Lab Interpretation (test cod e = 48408-1) Normal [facility] GLUCOSE (AUTOMATED)2022-04-23 09:37:57* Test Item Value Reference Range Interpretation Comme nts POCT GLU (test code = 4680725226) 107 mg/dL 70-110 Lab Interpretation (test cod e = 11041-0) Normal [facility] GLUCOSE (AUTOMATED)2022-04-23 07:22:08* Test Item Value Reference Range Interpretation Comme nts POCT GLU (test code = 1388584002) 146 mg/dL 70-110 H Lab Interpretation (test cod e = 35777-1) Abnormal [facility] GLUCOSE (AUTOMATED)2022-04-23 05:29:09* Test Item Value Reference Range Interpretation Comme nts POCT GLU (test code = 1557874193) 142 mg/dL 70-110 H Lab Interpretation (test cod e = 09641-9) Abnormal [facility] GLUCOSE (AUTOMATED)2022-04-23 04:10:18* Test Item Value Reference Range Interpretation Comme nts POCT GLU (test code = 5126214701) 148 mg/dL 70-110 H Lab Interpretation (test cod e = 63529-6) Abnormal [facility] GLUCOSE (AUTOMATED)2022-04-23 02:27:55* Test Item Value Reference Range Interpretation Comme nts POCT GLU (test code = 0363601320) 160 mg/dL 70-110 H Lab Interpretation (test cod e = 08871-3) Abnormal [facility] [facility] (Na, K, Cl, CO2, Glucose, BUN, Creatinine, Ca)2022-04-23 01:58:18* Test Item Value Reference Range Interpretation Comme nts NA (test code = 8540103260) 137 mmol/L 135-145 K (test code = 0361680736) 3.6 mmol/L 3.5-5.0 CL (test code = 5897356666) 109 mmol/L 98-108 H CO2 TOTAL (test code = 8589313182) 17 mmol/L 23-31 L AGAP (test code = 7780202495) 2-16 BUN (test code = 6733590817) <2 7-23 L GLUCOSE (test code = 0897315119) 162 mg/dL 70-110 H CREATININE (test code = 7462622201) 0.62 mg/dL 0.60-1.25 CALCIUM (test code = 7308712185) 8.2 mg/dL 8.6-10.6 L eGFR (test code = 0639367511) mL/min/1.73m2 ZULEIMA (test code = ZULEIMA) Association [...] imaging tests). Lab Interpretation (test code = 52449-5) Abnormal [facility] GLUCOSE (AUTOMATED)2022-04-23 01:21:32* Test Item Value Reference Range Interpretation Comme nts POCT GLU (test code = 8098056121) 142 mg/dL 70-110 H Lab Interpretation (test cod e = 22209-4) Abnormal [facility] GLUCOSE (AUTOMATED)2022-04-23 00:05:03* Test Item Value Reference Range Interpretation Comme nts POCT GLU (test code = 1797733612) 148 mg/dL 70-110 H Lab Interpretation (test cod e = 55854-6) Abnormal [facility] GLUCOSE (AUTOMATED)2022-04-22 23:06:57* Test Item Value Reference Range Interpretation Comme [facility] POCT GLU (test code = 9565778078) 144 mg/dL 70-110 H Lab Interpretation (test cod e = 17411-1) [facility]22-[facility]-22 22:12:45* Test Item Value Reference Range Interpretation Comme [facility] POCT GLU (test code = 2443242326) 145 mg/dL 70-110 H Lab Interpretation (test cod e = 74769-7) [facility]normal [facility] [id number] 21:43:14* Test Item Value Reference Range Interpretation Comments TROPONIN I (test code = 6482962895) 0.003 ng/mL See_Comment [Automated message] The system [...] of biotin. Lab Interpretation (test code = 80501-7) Normal [facility] Met[facility] Panel (Na, K, Cl, CO2, Glucose, BUN, Creatinine, Ca)2022-04-22 21:31:09* Test Item Value Reference Range Interpretation Comme [facility] NA (test code = 5699817696) 134 mmol/L 135-145 L K (test code = 5089654113) 3.9 mmol/L 3.5-5.0 CL (test code = 1633761681) 108 mmol/L 98-108 CO2 TOTAL (test code = 7163736055) 15 mmol/L 23-31 L AGAP (test code = 0478215456) 2-16 BUN (test code = 1344038710) 2 mg/dL 7-23 L GLUCOSE (test code = 9712051542) 170 mg/dL 70-110 H CREATININE (test code = 7135340358) 0.62 mg/dL 0.60-1.25 CALCIUM (test code = 2154724192) 8.3 mg/dL 8.6-10.6 L eGFR (test code = 6925112558) mL/min/1.73m2 ZULEIMA (test code = ZULEIMA) Association [...] imaging tests). Lab Interpretation (test code = 00059-0) Abnormal [facility] GLUCOSE (AUTOMATED)2022-04-22 21:08:08* Test Item Value Reference Range Interpretation Comme [facility] POCT GLU (test code = 0504099764) 156 mg/dL 70-110 H Lab Interpretation (test cod e = 90139-7) Abnormal [facility] GLUCOSE (AUTOMATED)2022-04-22 19:48:36* Test Item Value Reference Range Interpretation Comme [facility] POCT GLU (test code = 8546432061) 154 mg/dL 70-110 H Lab Interpretation (test cod e = 10109-1) Abnormal [facility] GLUCOSE (AUTOMATED)2022-04-22 18:44:52* Test Item Value Reference Range Interpretation Comme nts POCT GLU (test code = 7428591125) 146 mg/dL 70-110 H Lab Interpretation (test cod e = 10703-8) Abnormal [facility] GLUCOSE (AUTOMATED)2022-04-22 17:28:16* Test Item Value Reference Range Interpretation Comme nts POCT GLU (test code = 8172373944) 148 mg/dL 70-110 H Lab Interpretation (test cod e = 50330-2) Abnormal [facility] Met[facility] Panel (Na, K, Cl, CO2, Glucose, BUN, Creatinine, Ca)2022-04-22 16:11:05* Test Item Value Reference Range Interpretation Comme nts NA (test code = 3869952131) 134 mmol/L 135-145 L K (test code = 7599817716) 3.8 mmol/L 3.5-5.0 CL (test code = 0835632507) 106 mmol/L 98-108 CO2 TOTAL (test code = 7639133832) 15 mmol/L 23-31 L AGAP (test code = 3394067103) 2-16 BUN (test code = 1664307947) 4 mg/dL 7-23 L GLUCOSE (test code = 5619815643) 179 mg/dL 70-110 H CREATININE (test code = 8777413505) 0.68 mg/dL 0.60-1.25 CALCIUM (test code = 1013397397) 8.5 mg/dL 8.6-10.6 L eGFR (test code = 6982661001) mL/min/1.73m2 ZULEIMA (test code = ZULEIMA) Association [...] imaging tests). Lab Interpretation (test code = 57490-5) [facility]2022-[facility]-22 16:10:40* Test Item Value Reference Range Interpretation Comme [facility] POCT GLU (test code = 1821264168) 157 mg/dL 70-110 H Lab Interpretation (test cod e = 16599-7) Abnormal [facility] WITH [id number] 15:48:43* Test Item Value Reference Range Interpretation Comme [facility] WBC (test code = 6690-2) See_Comment [Automated [employer]] The system which generated this result transmitted reference range: 4.20 - 10.70 10*3/?L. The reference range was not used to interpret this result as normal/abnormal. RBC (test code = 789-8) See_Comment [Automated [employer]] The system which generated this result transmitted [...] 33.7 g/dL 31.2-35.0 RDW-SD (test code = 81574-4) 38.5 fL 38.5-51.6 RDW-CV (test code = 788-0) 12.4 % 12.1-15.4 PLT (test code = 777-3) See_Comment [Automated [employer]] The system which generated this result transmitted reference range: 150 - 328 10*3/?L. The reference range was not used to interpret this result as normal/abnormal. MPV (test code = 61747-8) 9.2 fL 9.8-13.0 L NRBC/100 WBC (test code = 6029871625) See_Comment [Automated [employer]] The system which generated this result transmitted reference range: 0.0 - 10.0 /100 WBCs. The reference range was not used to interpret this result as normal/abnormal. NRBC x10^3 (test code = 8774605018) <0.01 See_Comment [Automated [employer]] The system which generated this result transmitted reference range: 10*3/?L. The reference range was not used to interpret this result as normal/abnormal. GRAN MAT (NEUT) % (test code = 770-8) 69.0 % IMM GRAN % (test code = 9841072280) 0.40 % LYMPH % (test code = 736-9) 18.9 % MONO % (test code = 5905-5) 9.1 % EOS % (test code = 713-8) 2.0 % BASO % (test code = 706-2) 0.6 % GRAN MAT x10^3(ANC) (test code = 5144795939) 6.20 10*3/uL 1.99-6.95 IMM GRAN x10^3 (test code = 7885406505) 0.04 10*3/uL 0.00-0.06 LYMPH x10^3 (test code = 731-0) 1.70 10*3/uL 1.09-3.23 MONO x10^3 (test code = 742-7) 0.82 10*3/uL 0.36-1.02 EOS x10^3 (test code = 711-2) 0.18 10*3/uL 0.06-0.53 BASO x10^3 (test code = 704-7) 0.05 10*3/uL 0.01-0.09 Lab Interpretation (test code = 23675-7) Abnormal [facility] GLUCOSE (AUTOMATED)2022-04-22 14:27:15* Test Item Value Reference Range Interpretation Comme nts POCT GLU (test code = 3603621670) 150 mg/dL 70-110 H Lab Interpretation (test cod e = 35665-7) Abnormal [facility] GLUCOSE (AUTOMATED)2022-04-22 13:41:45* Test Item Value Reference Range Interpretation Comme nts POCT GLU (test code = 8318586733) 149 mg/dL 70-110 H Lab Interpretation (test cod e = 41471-1) Abnormal [facility] GLUCOSE (AUTOMATED)2022-04-22 12:29:18* Test Item Value Reference Range Interpretation Comme nts POCT GLU (test code = 4699024876) 174 mg/dL 70-110 H Lab Interpretation (test cod e = 93380-4) Abnormal [facility] GLUCOSE (AUTOMATED)2022-04-22 11:33:37* Test Item Value Reference Range Interpretation Comme nts POCT GLU (test code = 1285369736) 159 mg/dL 70-110 H Lab Interpretation (test cod e = 39911-1) Abnormal [facility] Met[facility] Panel (Na, K, Cl, CO2, Glucose, BUN, Creatinine, Ca)2022-04-22 11:30:20* Test Item Value Reference Range Interpretation Comme nts NA (test code = 3555681700) 133 mmol/L 135-145 L K (test code = 3042129759) 3.3 mmol/L 3.5-5.0 L CL (test code = 2604027547) 104 mmol/L 98-108 CO2 TOTAL (test code = 9817696060) 14 mmol/L 23-31 L AGAP (test code = 0288647695) 2-16 BUN (test code = 6302084036) 4 mg/dL 7-23 L GLUCOSE (test code = 5356904458) 172 mg/dL 70-110 H CREATININE (test code = 5945182388) 0.77 mg/dL 0.60-1.25 CALCIUM (test code = 9694730586) 8.6 mg/dL 8.6-10.6 eGFR (test code = 6754233556) mL/min/1.73m2 ZULEIMA (test code = ZULEIMA) Association [...] imaging tests). Lab Interpretation (test code = 13664-4) Abnormal [facility] GLUCOSE (AUTOMATED)2022-04-22 10:56:08* Test Item Value Reference Range Interpretation Comme [facility] POCT GLU (test code = 1788408786) 157 mg/dL 70-110 H Lab Interpretation (test cod e = 76943-3) Abnormal [facility] GLUCOSE (AUTOMATED)2022-04-22 10:56:03* Test Item Value Reference Range Interpretation Comme [facility] POCT GLU (test code = 0476684529) 96 mg/dL 70-110 Lab Interpretation (test cod e = 32717-6) Normal [facility] GLUCOSE (AUTOMATED)2022-04-22 09:35:36* Test Item Value Reference Range Interpretation Comme [facility] POCT GLU (test code = 6204414605) 158 mg/dL 70-110 H Lab Interpretation (test cod e = 14761-8) Abnormal [facility] GLUCOSE (AUTOMATED)2022-04-22 08:36:40* Test Item Value Reference Range Interpretation Comme [facility] POCT GLU (test code = 3943429562) 166 mg/dL 70-110 H Lab Interpretation (test cod e = 04177-1) Abnormal [facility] Metabolic Panel (Na, K, Cl, CO2, Glucose, BUN, Creatinine, Ca)2022-04-22 08:00:14* Test Item Value Reference Range Interpretation Comme [facility] NA (test code = 0060852199) 133 mmol/L 135-145 L K (test code = 2640545604) 3.6 mmol/L 3.5-5.0 CL (test code = 6877507465) 103 mmol/L 98-108 CO2 TOTAL (test code = 9441514892) 14 mmol/L 23-31 L AGAP (test code = 1919191089) 2-16 BUN (test code = 9804287276) 5 mg/dL 7-23 L GLUCOSE (test code = 1715239811) 172 mg/dL 70-110 H CREATININE (test code = 3938904668) 0.85 mg/dL 0.60-1.25 CALCIUM (test code = 8108408446) 9.0 mg/dL 8.6-10.6 eGFR (test code = 7189458864) mL/min/1.73m2 ZULEIMA (test code = ZULEIMA) Association [...] imaging tests). Lab Interpretation (test code = 32727-3) Abnormal [facility] CenterOsmolality Nqkpa1045-17-37 07:46:08* Test Item Value Reference Range Interpretation Comme nts OSMOLALITY (test code = 2692-2) See_Comment [Automated [employer]] The system which generated this result transmitted reference range: 278 - 305 mOsm/kg. The reference range was not used to interpret this result as normal/abnormal. Lab Interpretation (test code = 49162-1) Normal [facility] GLUCOSE (AUTOMATED)2022-04-22 07:36:29* Test Item Value Reference Range Interpretation Comme nts POCT GLU (test code = 5965945569) 144 mg/dL 70-110 H Lab Interpretation (test cod e = 84660-2) Abnormal [facility] GLUCOSE (AUTOMATED)2022-04-22 07:36:29* Test Item Value Reference Range Interpretation Comme nts POCT GLU (test code = 0294427594) 168 mg/dL 70-110 H Lab Interpretation (test cod e = 94381-6) Abnormal [facility] CenterBetahydroxy-Lxxxafzq1122-30-72 07:26:24* Test Item Value Reference Range Interpretation Comme nts BOH (test code = 3858156798) 3.1 mmol/L ZULEIMA (test code = ZULEIMA) Normal Ranges: ? ? Nonfasting ? Less than 0.1 mmol/L ? ? Overnight Fast ? ? ? Less than 0.4 mmol/L ? ? Fasting (1-2 weeks) ?6-8 mmol/L Test developed and characteristics determined by [facility] Laboratory Services. [facility] Center[facility] (AUTOMATED)2022-04-22 06:32:35* Test Item Value Reference Range Interpretation Comme [facility] POCT GLU (test code = 0967499890) 155 mg/dL 70-110 H Lab Interpretation (test cod e = 88750-7) Abnormal [facility] Metabolic Panel (Na, K, Cl, CO2, Glucose, BUN, Creatinine, Ca)2022-04-22 06:02:22* Test Item Value Reference Range Interpretation Comme [facility] NA (test code = 1153990593) 134 mmol/L 135-145 L K (test code = 0958419045) 3.6 mmol/L 3.5-5.0 CL (test code = 1228812295) 104 mmol/L 98-108 CO2 TOTAL (test code = 5332503950) 11 mmol/L 23-31 L AGAP (test code = 4269686043) 2-16 H BUN (test code = 9887110948) 7 mg/dL 7-23 GLUCOSE (test code = 5642873208) 177 mg/dL 70-110 H CREATININE (test code = 0097100771) 0.81 mg/dL 0.60-1.25 CALCIUM (test code = 0191609730) 9.0 mg/dL 8.6-10.6 eGFR (test code = 0030468384) mL/min/1.73m2 ZULEIMA (test code = ZULEIMA) Association [...] imaging tests). Lab Interpretation (test code = 87329-3) Abnormal [facility] GLUCOSE (AUTOMATED)2022-04-22 04:35:23* Test Item Value Reference Range Interpretation Comme [facility] POCT GLU (test code = 9650922481) 154 mg/dL 70-110 H Lab Interpretation (test cod e = 05745-1) Abnormal [facility] GLUCOSE (AUTOMATED)2022-04-22 03:44:33* Test Item Value Reference Range Interpretation Comme [facility] POCT GLU (test code = 9112004298) 166 mg/dL 70-110 H Lab Interpretation (test cod e = 31264-3) Abnormal [facility] CenterLandic Acid Whole Taxvq9531-04-13 03:11:51* Test Item Value Reference Range Interpretation Comme nts LACTIC ACID (test code = 2573296038) 2.04 mmol/L 0.50-2.20 Lab Interpretation (test cod e = 90914-1) Normal [facility] (Na, K, Cl, CO2, Glucose, BUN, Creatinine, Ca)2022-04-22 02:17:22* Test Item Value Reference Range Interpretation Comme nts NA (test code = 6885056882) 134 mmol/L 135-145 L K (test code = 0006636407) 4.3 mmol/L 3.5-5.0 CL (test code = 8477963547) 101 mmol/L 98-108 CO2 TOTAL (test code = 9851223540) 10 mmol/L 23-31 L AGAP (test code = 4742257975) 2-16 H BUN (test code = 4606455270) 8 mg/dL 7-23 GLUCOSE (test code = 6476744787) 128 mg/dL 70-110 H CREATININE (test code = 6077468327) 0.92 mg/dL 0.60-1.25 CALCIUM (test code = 7127786607) 9.2 mg/dL 8.6-10.6 eGFR (test code = 4060464107) mL/min/1.73m2 ZULEIMA (test code = ZULEIMA) Association [...] imaging tests). Lab Interpretation (test code = 17057-9) Abnormal [facility] GLUCOSE (AUTOMATED)2022-04-22 02:16:37* Test Item Value Reference Range Interpretation Comme [facility] POCT GLU (test code = 2623222756) 132 mg/dL 70-110 H Lab Interpretation (test cod e = 44453-9) Abnormal [facility] GLUCOSE (AUTOMATED)2022-04-22 01:19:28* Test Item Value Reference Range Interpretation Comme [facility] POCT GLU (test code = 7989702261) 142 mg/dL 70-110 H Notified Provide r Lab Interpretation (test code = 46659-7) Abnormal [facility] CenterGlycosylated Hemoglobin (A1C)2022-04-22 01:01:17* Test Item Value Reference Range Interpretation Comme [facility] HGB A1C (test code = 4548-4) 10.5 % 4.0-5.7 H ZULEIMA (test code = ZULEIMA) Reference RangesNormal: <5.7%Prediabetes: 5.7 - 6.4%Diabetes: > 6.5% Lab Interpretation (test code = 62103-5) Abnormal [facility] CenterMagnesium Kbbjc9367-75-90 00:42:52* Test Item Value Reference Range Interpretation Comme [facility] MAGNESIUM (test code = 3531023092) 1.9 mg/dL 1.7-2.4 Lab Interpretation (test cod e = 52041-5) Normal [facility] CenterPhosphorus [id number] 00:42:32* Test Item Value Reference Range Interpretation Comme nts PHOSPHORUS (test code = 2697173692) 5.1 mg/dL 2.5-5.0 H Lab Interpretation (test cod e = 29181-4) Abnormal [facility] CenterAC PANEL 21 + LACTIC [id number] 00:14:12* Test Item Value Reference Range Interpretation Comme nts PH (test code = 1800624399) 7.32-7.42 L PCO2 SAKINA (test code = 1442688005) See_Comment L [Automated messa ge] The system which generated this result transmitted reference range: 41 - 51 mmHg. The reference range was not used to interpret this result as normal/abnormal. PO2 SAKINA (test code = 6718856689) See_Comment H [Automated messa ge] The system which generated this result transmitted reference range: 25 - 40 mmHg. The reference range was not used to interpret this result as normal/abnormal. HCO3 SAKINA (test code = 3987763376) See_Comment L [Automated messa ge] The system which generated this result transmitted reference range: 24 - 28 mEq/L. The reference range was not used to interpret this result as normal/abnormal. AC VBE(BEAKER) (test code = 9440633148) mEq/L THB SAKINA (test code = 9985373530) 16.5 g/dL 13.5-18.0 %O2HB SAKINA (test code = 8951236783) 84.9 % 52.0-63.0 H %COHB SAKINA (test code = 9044453740) 0.3 % 0.0-1.5 %METHB SAKINA (test code = 9187781117) 0.1 % 0.4-1.5 L VOL%O2 SAKINA (test code = 6992119841) 19.6 % 6.0-12.0 H NA (test code = 2936645064) 134 mmol/L 135-145 L K+ (test code = 7913049291) 3.7 mmol/L 3.5-5.0 AC CA IONZ (test code = 4213717091) 5.30 mg/dL 4.50-5.30 GLUCOSE (test code = 8351526898) 155 mg/dL 70-110 H LACTIC ACID (test code = 2392617900) 2.34 mmol/L 0.50-2.20 H Lab Interpretation (test code = 28122-6) Abnormal [facility] [id number] 23:48:43* Test Item Value Reference Range Interpretation Comments TROPONIN I (test code = 1964590305) 0.002 ng/mL See_Comment [Automated message] The system [...] of biotin. Lab Interpretation (test code = 77705-7) Normal [facility] CenterN-TERMINAL [id number] 23:45:26* Test Item Value Reference Range Interpretation Comme nts NT-proBNP (test code = 5736169378) 38 pg/mL See_Comment [Automated message] The system which generated this result transmitted reference range: <=125. The reference range was not used to interpret this result as normal/abnormal. ZULEIMA (test code = ZULEIMA) Biotin has been reported to cause a negative bias, interpret results relative to patient's use of biotin. Lab Interpretation (test code = 02898-6) Normal [facility] CenterCOMP. METABOLIC PANEL (15901)2022-04-21 23:45:16* Test Item Value Reference Range Interpretation Comme nts NA (test code = 5732795227) 134 mmol/L 135-145 L K (test code = 9922243098) 4.3 mmol/L 3.5-5.0 CL (test code = 2713419091) 100 mmol/L 98-108 CO2 TOTAL (test code = 6138852362) 8 mmol/L 23-31 L AGAP (test code = 5619416768) 2-16 H BUN (test code = 3398533695) 8 mg/dL 7-23 GLUCOSE (test code = 4986896000) 169 mg/dL 70-110 H CREATININE (test code = 2211540022) 0.93 mg/dL 0.60-1.25 TOTAL BILI (test code = 4727157235) 1.1 mg/dL 0.1-1.1 CALCIUM (test code = 6541566391) 9.8 mg/dL 8.6-10.6 T PROTEIN (test code = 1375393851) 8.2 g/dL 6.3-8.2 ALBUMIN (test code = 3659979516) 5.0 g/dL 3.5-5.0 ALK PHOS (test code = 4806601921) 106 U/L 34-122 ALTv (test code = 1742-6) 64 U/L 5-50 H AST(SGOT) (test code = 0996955549) 47 U/L 13-40 H eGFR (test code = 3594577867) mL/min/1.73m2 ZULEIMA (test code = ZULEIMA) Association [...] imaging tests). Lab Interpretation (test code = 27163-5) Abnormal [facility] CenterLIPASE2022-05-23 23:37:42* Test Item Value Reference Range Interpretation Comme [facility] LIPASE (test code = 9583746472) 106 U/L 0-220 Lab Interpretation (test cod e = 05804-8) Normal [facility] CenterPROTHROMBIN TIME / [id number] 23:30:44* Test Item Value Reference Range Interpretation Comme [facility] PROTIME PATIENT (test code = 5964-2) See_Comment [Automated [employer]] The system which generated this result transmitted reference range: 12.0 - 14.7 Seconds. The reference range was not used to interpret this result as normal/abnormal. INR (test code = 6301-6) Normal INR <1.1; Warfarin Therapeutic range 2.0 to 3.0 or 2.5 to 3.5, depending upon the indications. Lab Interpretation (test code = 94988-4) Normal [facility] WITH [id number] 23:22:44* Test Item Value Reference Range Interpretation [...] 33.4 g/dL 31.2-35.0 RDW-SD (test code = 28101-7) 38.3 fL 38.5-51.6 L RDW-CV (test code = 788-0) 12.3 % 12.1-15.4 PLT (test code = 777-3) See_Comment H [Automated messa ge] The system which generated this result transmitted reference range: 150 - 328 10*3/?L. The reference range was not used to interpret this result as normal/abnormal. MPV (test code = 74937-2) 9.2 fL 9.8-13.0 L NRBC/100 WBC (test code = 6779629804) See_Comment [Automated me ssage] The system which generated this result transmitted reference range: 0.0 - 10.0 /100 WBCs. The reference range was not used to interpret this result as normal/abnormal. NRBC x10^3 (test code = 5711312088) <0.01 See_Comment [Automated messa ge] The system which generated this result transmitted reference range: 10*3/?L. The reference range was not used to interpret this result as normal/abnormal. GRAN MAT (NEUT) % (test code = 770-8) 62.0 % IMM GRAN % (test code = 8360470182) 0.30 % LYMPH % (test code = 736-9) 29.7 % MONO % (test code = 5905-5) 6.5 % EOS % (test code = 713-8) 0.9 % BASO % (test code = 706-2) 0.6 % GRAN MAT x10^3(ANC) (test code = 5845418303) 7.25 10*3/uL 1.99-6.95 H IMM GRAN x10^3 (test code = 0251881846) 0.04 10*3/uL 0.00-0.06 LYMPH x10^3 (test code = 731-0) 3.48 10*3/uL 1.09-3.23 H MONO x10^3 (test code = 742-7) 0.76 10*3/uL 0.36-1.02 EOS x10^3 (test code = 711-2) 0.11 10*3/uL 0.06-0.53 BASO x10^3 (test code = 704-7) 0.07 10*3/uL 0.01-0.09 Lab Interpretation (test code = 91333-5) Abnormal [facility] CenterALBUMIN/CREATININE RATIO, URINE, RANDOM 2022-03-11 01:57:25* Test Item Value Reference Range Interpretation Comme nts CREATININE, URINE, RANDOM (test code = 2072) 61.2 MG/DL NOT ESTAB ALBUMIN, URINE, RANDOM (test code = 68893) <0.2 MG/DL NOT ESTAB CALC ALBUMIN/CREAT, RND (test code = 36765) <3 MG/G <30 Note: Albumin/Creatinine ratio reference interval reflects ADA and NKF guidelines. COMPREHENSIVE METABOLIC [id number] 00:29:28* Test Item Value Reference Range Interpretation Comme nts GLUCOSE (test code = 2217) 413 MG/DL 70-99 H BUN (test code = 2208) 14 MG/DL 6-20 CREATININE (test code = 2214) 0.81 MG/DL 0.80-1.40 eGFR (2020 CKD-EPI) (test code = 88368) 107 ML/MIN/1.73 >60 CALC BUN/CREAT (test code = 2234) 17 RATIO 6-28 SODIUM (test code = 2230) 138 MEQ/L 133-146 POTASSIUM (test code = 2227) 4.2 MEQ/L 3.5-5.4 CHLORIDE (test code = 2214) 96 MEQ/L 95-107 CARBON DIOXIDE (test code = 2205) 24 MEQ/L 19-31 CALCIUM (test code = 2208) 9.8 MG/DL 8.5-10.5 PROTEIN, TOTAL (test code = 2228) 7.1 G/DL 6.1-8.3 ALBUMIN (test code = 2200) 4.2 G/DL 3.5-5.2 CALC GLOBULIN (test code = 2239) 2.9 G/DL 1.9-3.7 CALC A/G RATIO (test code = 2233) 1.4 RATIO 1.0-2.6 BILIRUBIN, TOTAL (test code = 2206) 0.5 MG/DL See_Comment [Automated me ssage] The system which generated this result transmitted reference range: <=1.2. The reference range was not used to interpret this result as normal/abnormal. ALKALINE PHOSPHATASE (test code = 2203) 82 U/L 40-118 AST (test code = 2217) 26 U/L 9-50 ALT (test code = 2218) 54 U/L 5-50 H LIPID [id number] 00:29:28* Test Item Value Reference Range Interpretation Comme nts CHOLESTEROL (test code = 221) 174 MG/DL <200 TRIGLYCERIDES (test code = 2232) 311 MG/DL <150 H HDL CHOLESTEROL (test code = 2219) 40 MG/DL >39 CALC LDL CHOL (test code = 7) 93 MG/DL <100 NOTE: CALCULATED LDL IS BASED ON LEANDRO-BREWER METHOD WHICHINCLUDES ADJUSTABLE TRIGLYCERIDE:VLDL CHOLESTEROL RATIO.THIS FACTOR VARIES BY MEASURED TRIGLYCERIDE AND NON-HDLCHOLESTEROL CONCENTRATIONS WITH INCREASED CALCULATED LDL SEENIN HIGHER TRIGLYCERIDE OR LOWER NON-HDL SPECIMENS. FOR MOREINFORMATION, SEE CLIENT ANNOUNCEMENT AT [email or web address] RATIO LDL/HDL (test code = 223) 2.33 RATIO <3.55 HEMOGLOBIN [id number] 03:12:57* Test Item Value Reference Range Interpretation Comme [facility] HEMOGLOBIN A1c (test code = 85268) 11.3 % 4.2-5.6 H [employer] GUIDELINES FOR HGB A1C: [...] CONSULTATION. UNLESS OTHERWISE INDICATED, ALL TESTING PERFORMED [facility] [employer] [address] [place] [id number] DAIRY FROZEN MANAGER: MELECIO GREEN M.D. [place] NUMBER [id number] [facility] [place]. [id number] COMPREHENSIVE METABOLIC [id number] 04:51:05* Test Item Value Reference Range Interpretation Comme [facility] GLUCOSE (test code = 7) 299 MG/DL 70-99 H BUN (test code = 8) 15 MG/DL 6-20 CREATININE (test code = 2214) 0.67 MG/DL 0.80-1.40 L eGFR (2020 CKD-EPI) (test code = 09931) 114 ML/MIN/1.73 >60 CALC BUN/CREAT (test code = 2235) 22 RATIO 6-28 SODIUM (test code = 2231) 143 MEQ/L 133-146 POTASSIUM (test code = 2228) 4.1 MEQ/L 3.5-5.4 CHLORIDE (test code = 2215) 105 MEQ/L 95-107 CARBON DIOXIDE (test code = 2206) 26 MEQ/L 19-31 CALCIUM (test code = 2209) 9.3 MG/DL 8.5-10.5 PROTEIN, TOTAL (test code = 222) 6.5 G/DL 6.1-8.3 ALBUMIN (test code = 2201) 4.0 G/DL 3.5-5.2 CALC GLOBULIN (test code = 2240) 2.5 G/DL 1.9-3.7 CALC A/G RATIO (test code = 2234) 1.6 RATIO 1.0-2.6 BILIRUBIN, TOTAL (test code = 7) 0.5 MG/DL See_Comment [Automated me ssage] The system which generated this result transmitted reference range: <=1.2. The reference range was not used to interpret this result as normal/abnormal. ALKALINE PHOSPHATASE (test code = 2204) 111 U/L 40-118 AST (test code = 2218) 33 U/L 9-50 ALT (test code = 2219) 76 U/L 5-50 H LIPID [id number] 04:51:05* Test Item Value Reference Range Interpretation Comme nts CHOLESTEROL (test code = 2210) 213 MG/DL <200 H TRIGLYCERIDES (test code = 2232) 119 MG/DL <150 HDL CHOLESTEROL (test code = 2220) 77 MG/DL >39 CALC LDL CHOL (test code = 2237) 113 MG/DL <100 H NOTE: CALCULATED LDL IS BASED ON LEANDRO-BREWER METHOD WHICHINCLUDES ADJUSTABLE TRIGLYCERIDE:VLDL CHOLESTEROL RATIO.THIS FACTOR VARIES BY MEASURED TRIGLYCERIDE AND NON-HDLCHOLESTEROL CONCENTRATIONS WITH INCREASED CALCULATED LDL SEENIN HIGHER TRIGLYCERIDE OR LOWER NON-HDL SPECIMENS. FOR MOREINFORMATION, SEE CLIENT ANNOUNCEMENT AT [email or web address] RISK RATIO LDL/HDL (test code = 2238) 1.47 RATIO <3.55 UNLESS OTHERW ISE INDICATED, ALL TESTING PERFORMED [facility] [address] [place] [address] DAIRY FROZEN MANAGER: MELECIO GREEN M.D. CLIA NUMBER [id number] [facility] [place]. [id number] HEMOGLOBIN [id number] 02:53:45* Test Item Value Reference Range Interpretation Comme nts HEMOGLOBIN A1c (test code = 90864) 10.6 % 4.2-5.6 H [employer] GUIDELINES FOR HGB A1C: [...] ETC.). CONSIDER ALTERNATE TESTING OR LABORATORY CONSULTATION. Consult Notes Date/Time Note Provider Source 2024-02-26 11:00:16 3wvKc4k273cBynfySnoGw2as9G3M180Ppwms HJ84cjXnnm+E+MmA5lJHauruRa3E2893-92- 29T11:00:16Associated Order(s): CONSULT ADULT PHYSICAL THERAPY Patient agreeable to working with physical therapy. Patient met semi reclined in bed.Recommend nursing staff utilize min A for safety purposes to safely assist patient with mobility out of the bed or chair.Pt has decreased Sp O2 upon standing.PHYSICAL THERAPY EVALUATIONConsult received, chart reviewed and evaluation complete this date. Patient is referred to PT for evaluation and treatment. Patient is a 53 year old male who presents to hospital for Fatigue, unspecified type [R53.83] .Discharge Recommendations:Therapy Needs and Potential:Patient would benefit from continued physical therapy services to address: decreased strength decreased enduranceChallenges to Home Transition:increased risk of fallsEquipment recommendations:Patient has or access to necessary equipmentCurrent Functional Status and/or Treatment:AM-PAC 6 Clicks (Raw Score 0=Dependent, 24=Independent; Low function Raw Score 0= Dependent, 32=Independent):Raw Score - Basic Mobility : 20T-Scale Score - Basic Mobility : 43.99Bed Mobility:Rolling: IndependentDizziness NoTransfers:Sit to stand: Independent using no device.Stand to sit: Independent using no device.Educated on pushing up on stable surfaceDizziness Yes. Pt reported feeling dizzy at EOB. SpO2 90%.Ambulation:Assisted patient with ambulation as follows: 10 feet using rolling Walker. and Supervision. For safety purposes.Pt SpO2 ranged from 85-87% with ambulation.Educated on deep breathing when ambulating.Dizziness YesTherapeutic exercise:patient educated in Fall prevention and General strengthening.After session, patient up in chair. Call button provided.PLAN OF CARE:While in the hospital, PT will follow patient at least 2 times per week,once or twice a day, per patient's tolerance and needs.See below for complete details.Admit Date: 02/24/2024Hospital Diagnosis:Fatigue, unspecified type [R53.83]PT Diagnosis: Difficulty walking, Weakness, and Malaise/fatigueWeight Bearing Precaution: WBATGeneral Precautions: Fall, Pulmonary,oxygen: Nasal canula 3 L A8Koxvfbu/Cast present or required:N/APMH:Past Medical History:Diagnosis DateGERD (gastroesophageal reflux disease)HyperlipemiaOSA on CPAPPAF (paroxysmal atrial fibrillation)Secondary hypertensionType 1 diabetes mellitus with other specified complicationPSH:Past Surgical History:Procedure Laterality DateOTHERfinger surgeryPrior Living Situation: lives with their spouse and in a apartmentDME: No devicePrior level of Mobility: community ambulation, house hold ambulationSuspected ischemic or hemorraghic stroke:NoSubjective: Pt came into the hospital due to shortness of breath and feeling fatigued. He also stated he has not been able to eat anything for 2 weeks due to feeling nauseous and the smell of the food makes it want to vomit. He has not eaten anything since being in the hospital.Patient/Family Goals: Be able to go home.Patient/Family verbalizes understanding of condition: YesPAIN:denies pain before and after sessionCOMMUNICATIONPrimary Language: SpanishAble to Verbalize needs: YesVision:good; no issues reported Hearing:good; no issues reportedORIENTATION/COGNITION:Hayward ed to: person, place, date/time, and situationAwake: Yes Alert: Yes Dizzy: YesFollows Commands: Yes1-Step Yes Multi-Step YesInconsistent: NoNEUROLOGICALLight Touch: within functional limits bilateral LEBALANCE:Sitting: Static: Good Dynamic: GoodStanding: Static: Good Dynamic: GoodRANGE OF MOTION: within functional limits bilateral LESTRENGTH: 4/5 (Good), bilateral LEENDURANCE: Fair+, Nasal canula 3 L O2SKIN INTEGRITY: intactPROBLEM LIST: Decreased strength and Decreased enduranceASSESSMENT: Patient is a 53 year old male seen secondary to the above listed diagnosis. Patient would benefit from continued PT to address the above listed deficits to maximize independence and safety with functional mobility.Rehabilitation Potential: goodGoals: The following goals are to maximize independence and safety with functional mobility to eventually return to prior living situation and prior functional status.Upon discharge, patient and/or family will demonstrate the followin. Independent with ambulation, Feet: 100 using least assistive device.Treatment Plan: Gait training, Therapeutic exercise, Balance training, and Safety education, patient/caregiver educationPATIENT EDUCATION: Patient provided with preferred teaching of verbal information on role of PT, plan of care. Shows readiness to learn. Verbal instruction teaching provided. Individual is able to read and verbalizes understanding of teaching provided and accurately returns demonstration of skill.Total Time Tx Codes in Minutes: 15 minTotal Treatment Time in Minutes: 20 Priya Childress PTTX PT [id number] [facility] ADCRehabilitation Services [phone] (phone) (fax) [phone] zoaeLZ5628-32-14Z99:12:47Consult noteTXT1.2.840.587474.1.13.104.2.7.2 .227745|[id number] for patient ebzc64296-1Rwevgdz noteLNNARRATIVEFormatted C-CDA narrative [id number] Johanson PT[address] StreetHa[id number] TZPYKXYJIWAEYGLYJEVKWQ0075-80-09Z12: 12:471.2.840.245734.1.72.3.15|1.2.84 0.171915.1.13.104.2.7.2.727879_20611 61225 Frida Childress PT [facility] History and Physical Notes Date/Time Note Provider Source 2024-02-24 15:13:16 G/0+QdwaUbs5v8/6vAsc zJdKv19LiRJPtSHK198+1Se pyoGs/JrSNnSUqv6cYhE57173-70-66W74:13:16For matting of this note is different from the original.[facility] Hospitalist Admission H&PDate of Service: 4CHIEF COMPLAINT: Fatigue and weaknessHISTORY OF PRESENT ILLNESSLeandro Lehman is a 53 year old male with history of insulin-dependent diabetic, HTN, CAD, HI in 10/22, proximal A-fib, GERD, chronic hypoxic respiratory failure on 3 L O2 who presents with chills, fatigue, nausea, vomiting, weakness and dizziness. Patient unable to tolerate food and liquids. Patient states that when he stands up his legs feel weak as if they are going to give out. Patient denies chest pain, shortness of breath, although patient uses home O2 at 3 L, diarrhea or fever. Hospitalist consulted for inpatient admission and further evaluation.PAST MEDICAL HISTORYPast Medical History:Diagnosis DateGERD (gastroesophageal reflux disease)HyperlipemiaOSA on CPAPPAF (paroxysmal atrial fibrillation)Secondary hypertensionType 1 diabetes mellitus with other specified complicationPAST SURGICAL HISTORYPast Surgical History:Procedure Laterality DateOTHERfinger surgeryALLERGIESAllergiesAllergen ReactionsEmpagliflozin Other - See commentsDKAMEDICATIONSCurrent home medication list reviewed:Current Discharge Medication ListSTOP taking these medicationsatorvastatin (LIPITOR) 40 mg tablet Comments:Reason for Stopping:glipiZIDE 5 mg tablet Comments:Reason for Stopping:insulin detemir (LEVEMIR U-100 INSULIN SC) Comments:Reason for Stopping:insulin regular human (HUMULIN R) 500 unit/mL injection Comments:Reason for Stopping:metFORMIN 1,000 mg tablet Comments:Reason for Stopping:METOPROLOL SUCCINATE ORAL Comments:Reason for Stopping:udmdd-4-lbd-hrd-bwy-qrgb oil (OMEGA-3 2100) 1,050-1,200 mg Cap Comments:Reason for Stopping:pantoprazole 40 mg EC tablet Comments:Reason for Stopping:spironolactone 25 mg tablet Comments:Reason for Stopping:aspirin 81 mg chewable tablet Comments:Reason for Stopping:ondansetron (ZOFRAN ODT) 4 mg disintegrating tablet Comments:Reason for Stopping:FAMILY HISTORYFamily HistoryProblem Relation Age of OnsetDiabetes MotherSOCIAL HISTORYSocial HistorySocioeconomic HistoryMarital status: DivorcedTobacco UseSmoking status: FormerTypes: CigarettesQuit date: 2000Years since quittin.2Passive exposure: NeverSmokeless tobacco: NeverSubstance and Sexual ActivityAlcohol use: Not CurrentlyDrug use: Not CurrentlyREVIEW OF SYSTEMSConstitutional: positive chills, feverEyes: negative acute blurry vision, eye dischargeEars, Nose, Mouth, Throat: negative dysphagia, runny nose, sore throat, tinnitusCardiovascular: negative chest pain, paplitaitonsRespiratory: negative sob, coughGastrointestinal: Positive for abd pain, nausea, vomitingGenitourinary: Negative dysuria, hematuriaMusculoskeletal: negative calf pain, swellingIntegumentray: negative rash, itchingNeurological: weaknessPsychiatric: negative hallucinationsPHYSICAL EXAMINATIONBP 131/74 | Pulse 89 | Temp 35.8 ?C (96.5 ?F) | Resp 19 | Ht 1.702 m (5' 7") | Wt 121.2 kg (267 lb 3.2 oz) | SpO2 96% | BMI 41.85 kg/m?General: No acute distressHEENT: Normal oral mucosa, anicteric sclerae, NCATCardiovascular: RRR, strong symmetric radial pulsesLungs: CTABAbdomen: obese, distended, NTNDMusculoskeletal: Normal ROM, normal muscle massGenitourinary: NormalSkin: No rash, lesionsNeuro: AAOx3, no focal deficitsPsych: Normal affectLABS - reviewed pertinent labs as below:CBC BMP PT/INRWBC (10*3/?L)Date Value02/24/2024 7.53NA (mmol/L)Date Value02/24/2024 132 (L)No results found for: "PT"RBC (10*6/?L)Date Value02/24/2024 4.82K (mmol/L)Date Value02/24/2024 3.1 (L)INR (no units)Date Value09/04/2022 0.9PLT (10*3/?L)Date Value02/24/2024 363 (H)CALCIUM (mg/dL)Date Value02/24/2024 9.5HGB (g/dL)Date Value02/24/2024 14.0CL (mmol/L)Date Value02/24/2024 94 (L)aPTTHCT (%)Date Value02/24/2024 41.7BUN (mg/dL)Date Value02/24/2024 7APTT Patient (Seconds)Date Value09/03/2022 22 (L)CREATININE (mg/dL)Date Value02/24/2024 1.06IMAGING - reviewed, pertinent results as below:Hospital Encounter on 02/24/24CT ABDOMEN PELVIS W CONTRASTNarrativeEXAM: CT ABDOMEN AND PELVIS WITH CONTRASTHISTORY: 53 years-old Male presenting with Nausea/vomitingCOMPARISON: CT abdomen pelvis 11/05/2022 ultrasound abdomen 11/18/2022TECHNIQUE AND FINDINGS: Contiguous axial imaging from the level of the lungbases through the proximal thighs was performed after the administration ofintravenous contrast. Coronal and sagittal reconstructions were obtained.Auto mA and/or iterative reconstruction were used to reduce radiation dose.FINDINGS:LOWER THORAX: Bilateral subtle chronic atelectasis or scarring from priorinfection. No cardiomegaly.LIVER:Hepatomegaly and diffuse hypoattenuation of parenchyma. No focalhepatic lesions. Normal contour.GALLBLADDER AND BILIARY TREE: No biliary ductal dilation. Elongatedgallbladder with an 8 mm moderately dependent hyperdensity thought to begallstones. No pericholecystic inflammatory changes.SPLEEN: No splenomegaly.PANCREAS: Normal in appearance. No ductal dilation or masses.ADRENAL GLANDS: No adrenal nodules.KIDNEYS: Normal appearance and enhancement. No hydronephrosis, stones, ormasses.PERITONEUM AND RETROPERITONEUM: No free air or fluid.LYMPH NODES: No lymphadenopathy.GI TRACT: No dilation or wall thickening. The appendix is unremarkablePELVIS/BLADDER: The prostate is unremarkable. The urinary bladder iscompletely decompressed. Bladder wall thickening is noted.VESSELS: A celiomesenteric trunk is noted.BONES AND SOFT TISSUES: No suspicious lytic or sclerotic bony lesions.Impression1. Bladder wall thickening, may be artifactual from under distention orsecondary to cystitis.2. Hepatomegaly and hepatic steatosis.3. Suspected gallstones. No gallbladder inflammatory changes.Preliminary Report Dictated by Resident: Robel Carter MD., have reviewed this study and agree with theabove report.XR CHEST 1 VWNarrativeEXAM: XR CHEST 1 VWCOMPARISON: Chest radiograph 11/05/2022HISTORY: weaknessFINDINGS:Lungs: The lungs are clear. and well-expanded. No pleural abnormalities.Heart/Mediastinum: The cardiomediastinal silhouette is normal in sizeaccounting for technique.Bones: No osseous lesions are detected. The soft tissues appear normalImpressionNo acute cardiopulmonary process.Preliminary Report Dictated by Resident: Azar Carter MD., have reviewed this study and agree withthe above report.ASSESSMENT/PLANMargracia Walters 53 years old male admitted for:Weakness likely due to to recurrent nausea and vomiting may be due to diabetic gastroparesis-- Continue IV Reglan-- Zofran as needed-- Clear liquid, NSAID diet as tolerated-- Continue PPIsHypokalemia-- K3.1 replace and repleteDMT2 A1c 11.5-- Continue home dose of Levemir 45 units twice daily-- SSI, checks before meals and at bedtime-- Glipizide 5 mg daily-- Holding metformin 1000 mg twice daily while inpatientChronic respiratory failure--Home O2 3 L NC-- Patient uses CPAP at homeHTN/paroxysmal A-fib-- Metoprolol 50 mg twice daily--Lactone 25 mg twice daily-- Patient stated not taking EliquisProphylaxis: DVT- enoxaparinStress Ulcer: pantoprazoleAdvanced Care Planning (Z71.89)Above assessment and plan discussed at length with patient, patient expressed full understanding. Questions and concerned addressed, I spent 18 minutes discussing the advance care plan.Surrogate decision maker: selfLevel of care expected after discharge: independentCode status: Full codeSmoking Cessation: (Z71.6)Tobacco user?: Former smokerObservationTexas DIRECTOR MOTION PICTURE was viewed during this stayTaneric Swartz, FNP ssociated attestation - Sachin Mcallister DO - 02/24/2024 8:12 PM CDT I have independently seen and evaluated this patient. I agree with the findings and documentation provided in the nurse practitioner's notes. Medicine team will continue to provide daily care.In summary this is a 53-year-old male with past medical history including diabetes, hypertension, coronary disease status post HI, paroxysmal atrial fibrillation, GERD, chronic hypoxic respiratory failure on 3 L nasal cannula oxygen who presented for generalized weakness with intractable nausea vomiting secondary to suspected diabetic gastroparesis. Continue on Reglan as needed Zofran. Encourage patient to have small frequent meals. Rest of plan events outlined below.Sachin Mcallister DO 02/24/2024 8:11 XG51537-7Dgefzwf and physical gvfbSK8599063Hviyby, David1.2.840.672556.1.13.104.2.7.2.828611Qs jgmcOhujlXW7264-00-13V94:12:28History and physical noteTXT1.2.840.963651.1.13.104.2.7.2.312426 |[id number] for patient aylz88135-4Tyiejdf and physical noteLNNARRATIVEFormatted C-CDA narrative textUT[address] La[id number] DBZNIXXQVOITNZQ0735-33-57S04:12:281.2.840.1 22359.1.72.3.15|1.2.840.026905.1.13.104.2.7 .2.727879_[id number] [facility] Notes Date/Time Note Provider Source 2024-03-01 10:34:42 Z/Z44o6E+74r5tEIk21x Sxxjekq3ZTphjNV ciIc16GXlZum2Ok2VEfE/6bfvXiJy3994-5 03-01T10:34:42 TRANSITIONAL CARE MANAGEMENT ASSESSMENT03/01/2024Leandro LehmanNhptahpeo387419QEktffg Gutierrez is a 53 year old /White male was admitted on 02/24/24 to [facility], [facility] MED SURG. He was discharged on 02/27/24 with discharge disposition of HR- Routine Discharge.Admitting Physician: Doc Mcallister Diagnosis: WeaknessIntractable N/VHypokalemiaUncontrolled CC3Rvrdezb hypoxic respiratory failureLinked EpisodesType: Episode: Status: Noted: Resolved: Last update: Updated by:TRANSITION OF CARE TCM Active 02/27/2024 02/29/2024 2:06 PM Florence Downs RNComments:02/27/2024TCM Rfq-sanj-me-face outreach documentation: Care Transition CM made f/u call to pt post-discharge x2. No response and call went to voicemail. CM left a discreet message with purpose of call and CM's call back information.Discharge AssessmentChart Assessed: 03/01/24TCM Outreach Completed: 03/01/24Future Appointments: 56375-3Vqdjumoyc encounter VhvpRS3688-45-14I86:35:13Telephone encounter NoteTXT1.2.840.237356.1.13.104.2.7. 2.661917|[id number] for patient idof46096-3BayvQBBUUASJVNSLdixfxzss C-CDA narrative [id number] Downs RN[address] Sm[id number] 4XGFNTUJAKAZHHGWIQXTWED9978-36-68Y3 0:35:131.2.840.353915.1.72.3.15|1.2 .840.901634.1.13.104.2.7.2.727879_2 [id number] Florence Downs RN [facility] 2024-02-29 14:06:15 JppB4GvjlBAZuzPnW/M2 DO6rC7Qyk+YUaug B6hGoYLbrSipynhTzC030tRe5A0jD6532-6 02-28T14:06:15 Care Transition CM made f/u call to pt post-discharge. No response and call went to voicemail. CM left a discreet message with purpose of call and CM's call back information.Florence Downs RN, BSNCare Software Installation Engineer-Transitions of [id number] signed by Florence Downs RN at 02/29/2024 2:06 PM OXZ28405-5Esvuslwar encounter XygsBA2747-10-32H27:06:27Telephone encounter NoteTXT1.2.840.078412.1.13.104.2.7. 2.241977|[id number] for patient inxr59069-2WjlzJLNKPTLALBFTvnxyvnqm C-CDA narrative text[address] Be[id number] 3IOYHICMZQNGLDXQUPNWZLI5544-96-03R0 4:06:271.2.840.530021.1.72.3.15|1.2 .840.981696.1.13.104.2.7.2.727879_2 [id number] [facility] 2024-02-27 17:14:12 //A0RFN4WDsm7G3EilPm tfUnspavLAzpsjI eXbGYO5pd5kE5zVPF1AJoI7lHk8zV0969-1 7:14:12 Problem: Discharge PlanningGoal: Adequate for discharge02/27/2024 171 by Maritza Bui RNOutcome: Adequate for discharge02/27/2024 1440 by Maritza Bui RNOutcome: Progressing as expectedGoal: Effective communication02/27/2024 171 by Maritza Bui RNOutcome: Adequate for discharge02/27/2024 1440 by Maritza Bui RNOutcome: Progressing as expectedProblem: Nausea/VomitingGoal: Absence of nausea/vomiting02/27/2024 171 by Maritza Bui RNOutcome: Adequate for discharge02/27/2024 1440 by Maritza Bui RNOutcome: Progressing as expectedProblem: PainGoal: Control of pain at or below patient's documented comfort goal02/27/2024 1714 by Maritza Bui RNOutcome: Adequate for discharge02/27/2024 1440 by Maritza Bui RNOutcome: Progressing as expectedGoal: Reduction in pain sensation02/27/2024 171 by Maritza Bui RNOutcome: Adequate for discharge02/27/2024 1440 by Maritza Bui RNOutcome: Progressing as expectedProblem: Falls, Risk ofGoal: Absence of falls02/27/2024 1714 by Maritza Bui RNOutcome: Adequate for discharge02/27/2024 1440 by Maritza Bui RNOutcome: Progressing as expectedProblem: Skin integrity Impaired (Risk or Actual)Goal: Prevention of new skin breakdown02/27/2024 1714 by Maritza Bui RNOutcome: Adequate for discharge02/27/2024 1440 by Maritza Bui RNOutcome: Progressing as expectedProblem: Respiratory Function - ImpairedGoal: Able to cough effectively02/27/2024 1714 by Maritza Bui RNOutcome: Adequate for discharge02/27/2024 1440 by Maritza Bui RNOutcome: Progressing as expectedGoal: Adequate oxygenation02/27/2024 1714 by Maritza Bui RNOutcome: Adequate for discharge02/27/2024 1440 by Maritza Bui RNOutcome: Progressing as expectedGoal: Patent airway02/27/2024 1714 by Maritza Bui RNOutcome: Adequate for discharge02/27/2024 1440 by Maritza Bui RNOutcome: Progressing as expected 63424-8Dwiw of care trudUL2966-36-55D40:14:20Plan of care noteTXT1.2.840.987508.1.13.104.2.7. 2.663474|[id number] for patient olpl69114-3IxvvRFQLYNWQNDVCeogyoyvq C-CDA narrative [id number] Foster RN[address] To[id number] 4ANZEGPZSYLSWLQUBGVMNWC6613-81-26P8 7:14:201.2.840.927152.1.72.3.15|1.2 .840.065805.1.13.104.2.7.2.727879_2 [id number] Maritza Bui RN [facility] 2024-02-27 14:40:10 Imejnapv8GmTCUg1FLiu Vv2nj8+mA1OINlB LaRk9ODfTp8mahXd8uGR9RhPRy3ys0790-3 4:40:10 Problem: Discharge PlanningGoal: Adequate for dischargeOutcome: Progressing as expectedGoal: Effective communicationOutcome: Progressing as expectedProblem: Nausea/VomitingGoal: Absence of nausea/vomitingOutcome: Progressing as expectedProblem: PainGoal: Control of pain at or below patient's documented comfort goalOutcome: Progressing as expectedGoal: Reduction in pain sensationOutcome: Progressing as expectedProblem: Falls, Risk ofGoal: Absence of fallsOutcome: Progressing as expectedProblem: Skin integrity Impaired (Risk or Actual)Goal: Prevention of new skin breakdownOutcome: Progressing as expectedProblem: Respiratory Function - ImpairedGoal: Able to cough effectivelyOutcome: Progressing as expectedGoal: Adequate oxygenationOutcome: Progressing as expectedGoal: Patent airwayOutcome: Progressing as expected 93853-2Ykjt of care drnkKF5203-84-53J50:40:19Plan of care noteTXT1.2.840.199976.1.13.104.2.7. 2.716600|[id number] for patient dbkl77074-9XiuuNROCLILDFWWLshmnrhgi C-CDA narrative textUT[address] Av[id number] 3FIYXDWEBLQGHRFVHIUNJSI2878-10-24M3 4:40:191.2.840.023629.1.72.3.15|1.2 .840.081307.1.13.104.2.7.2.727879_2 [id number] [facility] 2024-02-26 16:38:21 8levywiCrw5t/Mtm5DuP mxC/xPkxf1p3ja8 iRqpICrDDinhYKpiVZjxI4hex/lOm3663-2 6:38:21 Problem: Discharge PlanningGoal: Adequate for dischargeOutcome: Progressing as expectedGoal: Effective communicationOutcome: Progressing as expectedProblem: Nausea/VomitingGoal: Absence of nausea/vomitingOutcome: Progressing as expectedProblem: PainGoal: Control of pain at or below patient's documented comfort goalOutcome: Progressing as expectedGoal: Reduction in pain sensationOutcome: Progressing as expectedProblem: Falls, Risk ofGoal: Absence of fallsOutcome: Progressing as expectedProblem: Skin integrity Impaired (Risk or Actual)Goal: Prevention of new skin breakdownOutcome: Progressing as expectedProblem: Respiratory Function - ImpairedGoal: Able to cough effectivelyOutcome: Progressing as expectedGoal: Adequate oxygenationOutcome: Progressing as expectedGoal: Patent airwayOutcome: Progressing as expected 60273-2Mfme of care wpirBA6225-39-71R67:38:24Plan of care noteTXT1.2.840.624261.1.13.104.2.7. 2.968257|[id number] for patient jfvb46388-0TexoRCUOLSJDBHMXfoanzkge C-CDA narrative textUT[address] Rk[id number] 4VUPQTGOCYKOGQDGKMDYEAW7391-16-56D0 6:38:241.2.840.773586.1.72.3.15|1.2 .840.569701.1.13.104.2.7.2.727879_2 [id number] [facility] [place] 2024-02-26 01:49:55 HWiky/vnJwulnL2xa5J8 xr8Rwd3ztI2Ar0B sRCytqkxRpZ7D1h0vEvzvi720VrQL1878-6 01:49:55 Problem: Discharge PlanningGoal: Adequate for dischargeOutcome: Progressing as expectedGoal: Effective communicationOutcome: Progressing as expectedProblem: Nausea/VomitingGoal: Absence of nausea/vomitingOutcome: Progressing as expectedProblem: PainGoal: Control of pain at or below patient's documented comfort goalOutcome: Progressing as expectedGoal: Reduction in pain sensationOutcome: Progressing as expectedProblem: Falls, Risk ofGoal: Absence of fallsOutcome: Progressing as expectedProblem: Skin integrity Impaired (Risk or Actual)Goal: Prevention of new skin breakdownOutcome: Progressing as expectedProblem: Respiratory Function - ImpairedGoal: Able to cough effectivelyOutcome: Progressing as expectedGoal: Adequate oxygenationOutcome: Progressing as expectedGoal: Patent airwayOutcome: Progressing as expected 87017-7Cvze of care tonmRX8877-35-20T39:49:58Plan of care noteTXT1.2.840.369437.1.13.104.2.7. 2.825643|[id number] for patient vgln17584-6CgpuIIVNQGUEMLBJcqlgngab C-CDA narrative [id number] Smith RNUT25 Ben[address] StreetGz[id number] 5NWXAXHQYXCVEVETLYJHVBN9889-37-66R3 1:49:581.2.840.192144.1.72.3.15|1.2 .840.591086.1.13.104.2.7.2.727879_2 [id number] Shashi Saez RN [facility] [place] 2024-02-25 19:27:15 hN/4kh2KvRT5rbJuK4/H QJoadrF6frRqiIX 37dHqUm83GG+ck2/a+kwyYVQtvXSI5736-6 02-24T19:27:15 Problem: Discharge PlanningGoal: Adequate for dischargeOutcome: Progressing as expectedGoal: Effective communicationOutcome: Progressing as expectedProblem: Nausea/VomitingGoal: Absence of nausea/vomitingOutcome: Progressing as expectedProblem: PainGoal: Control of pain at or below patient's documented comfort goalOutcome: Progressing as expectedGoal: Reduction in pain sensationOutcome: Progressing as expectedProblem: Falls, Risk ofGoal: Absence of fallsOutcome: Progressing as expectedProblem: Skin integrity Impaired (Risk or Actual)Goal: Prevention of new skin breakdownOutcome: Progressing as expected 67236-6Fykt of care qkemAF7128-55-44F82:27:17Plan of care noteTXT1.2.840.759827.1.13.104.2.7. 2.174512|[id number] for patient dcsq66485-3TbilSSCFXNQTWVXFkctvqhqp C-CDA narrative [id number] C Johnson RN[address] StreetNr[id number] 5DAQZRQMYMSPUSLKFBGAWES9391-54-50C4 9:27:171.2.840.989231.1.72.3.15|1.2 .840.327458.1.13.104.2.7.2.727879_2 [id number] Maria Esther Camilo RN [facility] [place] 2024-02-25 05:44:32 OtBckYVdWvJOvQ5ffmX1 E36glWwUVA6CUPW 4oB5lUEGFVfSgpHe4GSjgEljNO09n5391-1 02-24T05:44:32 Problem: Discharge PlanningGoal: Adequate for dischargeOutcome: Progressing as expectedProblem: Nausea/VomitingGoal: Absence of nausea/vomitingOutcome: Progressing as expectedProblem: PainGoal: Control of pain at or below patient's documented comfort goalOutcome: Progressing as expectedProblem: Falls, Risk ofGoal: Absence of fallsOutcome: Progressing as expected 10395-1Exls of care ghklKC0589-72-99F36:44:39Plan of care noteTXT1.2.840.980337.1.13.104.2.7. 2.371787|[id number] for patient rwoj22962-0BtcmTCFQCVFSPONRlrpsqmcz C-CDA narrative [id number] Darnell MARILUUT[address] Hayes [id number] 1FOMFRMUZWLZNEOQDFMECFP0201-62-04T2 5:44:391.2.840.556124.1.72.3.15|1.2 .840.068440.1.13.104.2.7.2.727879_2 [id number] Thursday [facility] 2024-02-24 16:20:12 SAtPI8OR2ZFQ44JC1Xvo +kOyJM3+T7UiL14 wDdfcCP76BNkbESwpKmdfwEyglIRF7056-9 6:20:12 Problem: Discharge PlanningGoal: Adequate for dischargeOutcome: Progressing as expectedGoal: Effective communicationOutcome: Progressing as expectedProblem: Nausea/VomitingGoal: Absence of nausea/vomitingOutcome: Progressing as expectedProblem: PainGoal: Control of pain at or below patient's documented comfort goalOutcome: Progressing as expectedGoal: Reduction in pain sensationOutcome: Progressing as expectedProblem: Falls, Risk ofGoal: Absence of fallsOutcome: Progressing as expected 01291-9Wscq of care stdxGZ2582-09-39S63:20:14Plan of care noteTXT1.2.840.085217.1.13.104.2.7. 2.744770|[id number] for patient kodh35616-3RugbUNQVTEQPNMJYpekifxii C-CDA narrative text[address] Short [id number] 3BLMQTXCZUCQLNMZBGMFKNB9142-93-22I9 6:20:141.2.840.296531.1.72.3.15|1.2 .840.170418.1.13.104.2.7.2.727879_2 [id number] [facility] [place] 2024-02-24 12:22:47 TJJlAhwcO1do1lHlslf/ K5CRsrTGyykaxbu H7zxPrTOVXu6Zqe1jWDtWw3ZV6W/Q8422-5 02-23T12:22:47 Patient admitted to [place] [address] for diagnosis of fatigue, n/v, hypokalemia, lactic acidosis, DM type 2.Patient agrees to admission, discussed plan of care with patient and family.Patient is awake, alert, oriented, resp reg unlabored, color appropriate for race, PIV intact.No adverse reaction to medications administered while in ED.Belongings with patient to unit. 08880-9Kqvgzbxpz department QrddZH1937-69-16J07:23:56Emergency department NoteTXT1.2.840.839045.1.13.104.2.7. 2.896944|[id number] for patient nsaf65768-7FawbYFQAFKCMEOOWmtbmyydi C-CDA narrative [id number] C Heredia RNUT[address] Jarf[id number] 6WUYINOYJCZHWVEYYCGSBCM9702-82-23L1 2:23:561.2.840.691128.1.72.3.15|1.2 .840.782187.1.13.104.2.7.2.727879_2 [id number] Risa Conde RN [facility] [place] 2024-02-24 12:19:57 cM2NKYT4wHjiHK+fT6Cg QlkjhsaRMnlggES ptiB3LSzpUZRGkOYt7bNasDhKlU3x8688-6 02-23T12:19:57 Nurse ReportReport given to sherman Lorenzo. Chief complaint, assessment findings, infusion verify and orders reviewed. Plan of care discussed. Patient/family [place] [address]-0Npjtrksxh department RautDN1771-77-78A41:21:11[facility] department NoteTXT1.2.840.368838.1.13.104.2.7. 2.618228|[id number] for patient gtet67779-5IbhyEFZTWNUBSNVKixutkgwt C-CDA narrative textUT[address] EiztF[id number] 2LUBRSYZMTDCLBPNPMIXFNU8100-05-28N0 2:21:111.2.840.061439.1.72.3.15|1.2 .840.978473.1.13.104.2.7.2.727879_2 [id number] [facility] [place] 2024-02-24 07:10:01 CW2y7ufVyuspPnqBPYkq Ul1dbOyeqYzRcCP Ms/DSNePrSj8Tyz9kcPGrtfdF3e0J0703-4 07:10:01 Report to Cordel 93138-2Pgzwucqrz department NyogJS9518-18-15H65:10:12[facility] NoteTXT1.2.840.922953.1.13.104.2.7. 2.195533|[id number] for patient hzzv61741-8MbylBOWCUFYZELSGdekwsylg C-CDA narrative uupw761803839Jlqufg R Shehadeh RNUT[address] Iv[id number] 2HAHDDIDAWLKJODLEOVISGT5349-06-41P7 7:10:121.2.840.659074.1.72.3.15|1.2 .840.720167.1.13.104.2.7.2.727879_2 [id number] Rabia Owusu RN [facility] [place] 2024-02-24 04:02:17 e2UP/qeddplyBC37W9yh sa/KtrRjj64GGsF M97Sb8lFkKRQzkCSaMZrlSMt1XGiy9805-8 04:02:17 Pt encouraged to give urine sample, states he cannot void at this time. 51633-9Aublqfolv department NbunFZ2331-62-25O93:03:51[facility] NoteTXT1.2.840.522199.1.13.104.2.7. 2.397226|[id number] for patient mvyw32176-2VpliYCUMHQKHFNJJrsjgwkig C-CDA narrative text[address] Pqbx[id number] 7DVSHRPPTVRTWBSANVJZIDG4014-26-92J3 4:03:511.2.840.994435.1.72.3.15|1.2 .840.041135.1.13.104.2.7.2.727879_2 [id number] [facility] [place] 2024-02-24 00:55:26 J/GgMs38kTwzHBaMf/DY 7/184ixJIH5M+N7 ZEvS2p+AWJNF1tAs+vb4iigqhDbyd0415-4 00:55:26 Pt arrived with c/o fatigue, weakness, and dizziness. Pt was seen on Thursday at [facility] for this on Thursday. Pt was swapped for Covid and Flu and had a negative work up. He was given Pepcid and Zofran for symptoms. report he has been in bed for more than a 1 week with these symptoms and has has no relief.Denies: abdominal pain 30823-2Wzqxfxbck department Triage elsnGO8416-23-86D58:58:39[facility] department Triage noteTXT1.2.840.738958.1.13.104.2.7. 2.947496|[id number] for patient hyyt44328-2Szsaraqhj department NoteLNNARRATIVEFormatted C-CDA narrative [id number] A Diaz RN[address] StreetSax[id number] 5XUELTZEFSRZDQIARBGXVSI1388-34-58K2 0:58:391.2.840.543374.1.72.3.15|1.2 .840.632440.1.13.104.2.7.2.727879_2 [id number] Eden Kapoor RN [facility] [place] 2024-02-24 00:47:00 o6GVWPcyKtuIKGe5rcRl 60FU1W+I4mlOUY9 J5SRh1He8iWOAlxTqMiCgzrAjif0w3206-2 00:47:00Associated Order(s): EKG-12 Lead ROUTINE ONCEPre-Procedure Diagnose(s): Fatigue, unspecified typePost-Procedure Diagnose(s): Fatigue, unspecified type [facility] Emergency Department NotePatient Name: Leandro Walton of : 1970 53 year old maleTreatment Room: TX6/KR2Uhesckm Record Number: [id number] Care Physician: Natacha SomersPatient Escorted by: Family [5]Mode of Arrival: Personal means [1]EMS Treatment Prior to ED Arrival: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 Per pt started with these symptoms 10- 11 days ago. reports he is unable to tolerate any food or fluid as he vomits if he tries to eat/drink anything. Pt was seen at [facility] on 02/16/2024 and had work up done including CTAP. Pt was discharged home on zofran and pepcid without improvement in symptoms. denies fever, but has chills.Pt denies noticing blood in vomitus.Denies diarrhea, has small BMsdenies chest pain or palpitationreports feeling lightheaded when standing up or walkingPt has history of DM,HTN, CAD with stents, hypoxic respiratory failure after COVID 19 in 2020 and is on Oxygen 4 liter/min by NC at home. He also has hx of DKA. Pt had "heart attack " in Sep 2023 and was admitted again to hospital for nausea, vomiting, dehydration, renal failure, and respiratory failure. Pt was discharged home prior to 2022 and had been doing well until he got sick 11 days agoPt reports medication compliance with his regular medications.History provided by: PatientHistory limited by: none.paraprofessional interpreter used: NoPast Medical History/Immunizations:Past Medical History:Diagnosis Date GERD (gastroesophageal reflux disease) Hyperlipemia CHAPARRO on CPAP PAF (paroxysmal atrial fibrillation) Secondary hypertension Type 1 diabetes mellitus with other specified complicationTetanus received in last 5 years: NoAllergies:AllergiesAllergen Reactions Empagliflozin Other - See commentsDKAPast Social History:Tobacco UseFormer; Cigarettes: Quit 1999Passive Exposure: NeverSmokeless Tobacco: Never used smokeless tobacco.Alcohol UseNot Currently.Drug UseNot Currently.Past Surgical History:Past Surgical History:Procedure Laterality Date OTHERfinger surgeryReview of Systems:Review of SystemsConstitutional: Positive for activity change, chills and fatigue. Negative for diaphoresis and fever.HENT: Negative for congestion, ear pain, facial swelling, rhinorrhea, sore throat and trouble swallowing.Eyes: Negative for pain and visual disturbance.Respiratory: Positive for shortness of breath (baseline). Negative for cough and chest tightness.Cardiovascular: Negative for chest pain and leg swelling.Gastrointestinal: Positive for abdominal pain, nausea and vomiting. Negative for blood in stool, constipation and diarrhea.Genitourinary: Negative for dysuria and frequency.Musculoskeletal: Positive for myalgias. Negative for gait problem, joint swelling and neck pain.Skin: Positive for rash.Neurological: Positive for dizziness and light-headedness. Negative for syncope, facial asymmetry, speech difficulty, numbness and headaches.Psychiatric/Behavioral: Negative for behavioral problems and confusion.Physical Exam:ED Triage Vitals [02/24/24 0053]Weight 120 kg (264 lb 9.6 oz)Actual or estimated ActualHeight 1.702 m (5' 7")BP 92/65Pulse 95Resp 16Temp 37.5 ?C (99.5 ?F)Temp source OralSpO2 95 %Measured on Room airPhysical ExamVitals and nursing note reviewed.Constitutional:General: He is not in acute distress.Appearance: Normal appearance. He is morbidly obese. He is not ill-appearing.HENT:Head: Normocephalic and atraumatic.Right Ear: External ear normal.Left Ear: External ear normal.Nose: No congestion.Mouth/Throat:Mouth: Mucous membranes are moist.Pharynx: No oropharyngeal exudate.Eyes:General: No scleral icterus.Conjunctiva/sclera: Conjunctivae normal.Cardiovascular:Rate and Rhythm: Normal rate and regular rhythm.Pulmonary:Effort: Pulmonary effort is normal.Breath sounds: Normal breath sounds.Chest:Chest wall: No tenderness.Abdominal:General: Abdomen is protuberant. There is no distension.Palpations: Abdomen is soft.Tenderness: There is no abdominal tenderness. There is no guarding or rebound.Musculoskeletal:Cervical back: Neck supple. No rigidity.Right lower leg: No edema.Left lower leg: No edema.Skin:General: Skin is warm and dry.Capillary Refill: Capillary refill takes less than 2 seconds.Findings: No rash.Comments: Pt reports rash with itching on abdomen, legs, armsNo rash noted on exam.Neurological:Mental Status: He is alert and oriented to person, place, and time.Psychiatric:Mood and Affect: Mood normal.Behavior: Behavior normal.Radiology:XR CHEST 1 VWPreliminary ResultEXAM: XR CHEST 1 VWCOMPARISON: Chest radiograph 11/05/2022HISTORY: weaknessFINDINGS:Lungs: The lungs are clear. and well-expanded. No pleural abnormalities.Heart/Mediastinum: The cardiomediastinal silhouette is normal in sizeaccounting for technique.Bones: No osseous lesions are detected. The soft tissues appear normalIMPRESSIONNo acute cardiopulmonary process.Preliminary Report Dictated by Resident: Rose Mary Holcomb Results:Lab ResultsCOMP. METABOLIC PANEL (58767) - AbnormalResult Value Ref RangeNA 132 (*) 135 - 145 mmol/LK 3.1 (*) 3.5 - 5.0 mmol/LCL 94 (*) 98 - 108 mmol/LCO2 TOTAL 26 23 - 31 mmol/LAGAP 12 2 - 16BUN 7 7 - 23 mg/dLGLUCOSE 235 (*) 70 - 110 mg/dLCREATININE 1.06 0.60 - 1.25 mg/dLTOTAL BILI 0.9 0.1 - 1.1 mg/dLCALCIUM 9.5 8.6 - 10.6 mg/Shoaib PROTEIN 7.7 6.3 - 8.2 g/dLALBUMIN 4.1 3.5 - 5.0 g/dLALK PHOS 113 34 - 122 U/LALTv 171 (*) 5 - 50 U/LAST(SGOT) 102 (*) 13 - 40 U/LeGFR 84.4 mL/min/1.14r6QQB WITH DIFF - AbnormalWBC 7.53 4.20 - 10.70 10*3/?LRBC 4.82 4.26 - 5.52 10*6/?LHGB 14.0 12.2 - 16.4 g/dLHCT 41.7 38.4 - 49.3 %MCV 86.5 81.7 - 95.6 fLMCH 29.0 26.1 - 32.7 pgMCHC 33.6 31.2 - 35.0 g/dLRDW-SD 39.2 38.5 - 51.6 fLRDW-CV 12.7 12.1 - 15.4 %PLT 363 (*) 150 - 328 10*3/?LMPV 9.2 (*) 9.8 - 13.0 fLNRBC/100 WBC 0.0 0.0 - 10.0 /100 WBCsNRBC x10^3 <0.01 10*3/?LGRAN MAT (NEUT) % 46.3 %IMM GRAN % 0.30 %LYMPH % 38.2 %MONO % 10.5 %EOS % 3.9 %BASO % 0.8 %GRAN MAT x10^3(ANC) 3.49 1.99 - 6.95 10*3/uLIMM GRAN x10^3 <0.03 0.00 - 0.06 10*3/uLLYMPH x10^3 2.88 1.09 - 3.23 10*3/uLMONO x10^3 0.79 0.36 - 1.02 10*3/uLEOS x10^3 0.29 0.06 - 0.53 10*3/uLBASO x10^3 0.06 0.01 - 0.09 10*3/uLPOCT GLUCOSE (AUTOMATED) - AbnormalPOCT GLU 227 (*) 70 - 110 mg/dLAC PANEL 21 + LACTIC ACID - AbnormalPH 7.40 7.32 - 7.42PCO2 SAKINA 45 41 - 51 mmHgPO2 SAKINA 33 25 - 40 mmHgHCO3 SAKINA 27 24 - 28 mEq/LAC VBE(BEAKER) 1.7 mEq/LTHB SAKINA 14.3 13.5 - 18.0 g/dL%O2HB SAKINA 63.8 (*) 52.0 - 63.0 %%COHB SAKINA 0.4 0.0 - 1.5 %%METHB SAKINA 0.0 (*) 0.4 - 1.5 %VOL%O2 SAKINA 12.8 (*) 6.0 - 12.0 %NA 133 (*) 135 - 145 mmol/LK+ 3.1 (*) 3.5 - 5.0 mmol/LAC CA IONZ 4.80 4.50 - 5.30 mg/dLGLUCOSE 235 (*) 70 - 110 mg/dLLACTIC ACID 2.74 (*) 0.50 - 2.20 mmol/LLIPASE - NormalLIPASE 82 0 - 220 U/LTROPONIN I - NormalTROPONIN I 0.005 <=0.034 ng/mLMAGNESIUM - NormalMAGNESIUM 2.0 1.7 - 2.4 mg/dLRAPID INFLUENZA A/B - NormalRapid Influenza A Negative NegativeRapid Influenza B Negative NegativeCOVID-19 (ID NOW RAPID TESTING) - SpzxvjLKKW-GxQ-5 Rapid ID NOW Not Detected Not DetectedURINALYSISN-TERMINAL PRO-BNPEKG:If EKG completed, see Procedure Note.Orders and Treatments:Orders Placed This EncounterProcedures XR CHEST [address] ABDOMEN PELVIS W CONTRAST Complete Metabolic Panel CBC with Differential Lipase, Serum Urinalysis Troponin I Magnesium RAPID INFLUENZA A/B COVID-19 (ID NOW TESTING) POCT GLUCOSE (AUTOMATED) AC Panel 21 + Lactic Acid Lab Only COVID Interpretation N-Terminal Pro-BnpOrders Placed This EncounterMedications sodium chloride (NS) injection 5 mL NaCl 0.9% (NS) bolus infusion 500 mL FENTanyl PF (SUBLIMAZE (PF)) injection 50 mcg ondansetron (ZOFRAN (PF)) injection 4 mg potassium chloride in water 10 mEq/100 mL RTU 10 mEq NaCl 0.9% (NS) bolus infusion 500 mLFirst Provider Eval:ED EventsDate/Time Event User Kdtsupme18/27/24 010 Medical Screening Begins JODY HEARD --02/24/24 010 First Provider Evaluation JODY HEARD --ED OURRDX33 y/o male pt presents to ER for evaluation of symptoms described in HPI. Pt is chronically ill appearing, no acute distress, on oxygen by NC at baselineBP 92/65. Reports feeling lightheaded when standing up/walkingCBC. CMP, troponin, EKG, UA, flu, covid19, CXR ordered.IVF NS bolus, fentanyl IV and zofran IV. Plan of care discussed with the pt and familyLab results reviewed.CBC - WNLCMP - K 3.1, BUN, cretinine - wnlAGAP and CO2 total - wnlLactic acid 2.74Troponin wnlALT, AST elevated but has improved compared to prior labs in 2021Flu and covid 19 NEGVBG done, venous pH- wnl, no signs of DKAAll results discussed with the pt and spouseIVF NS 500 ml ( 2 nd) and potassium 10 meq IVPB ordered.0300: Discussed with Dr. Russell, CTAP ordered for evaluation of acute abdomen causing vomiting.All available results discussed with the pt and spouse.0315: Care transferred to Dr. Russell at shift change pending CTAP, repeat lactic acid, and PO fluid challenge if CTAP negative for acute findingsDiagnosis/Impression as of 02/24/24 0632Fatigue, unspecified typeHypotension, unspecified hypotension typeNausea and vomiting, unspecified vomiting typeHypokalemiaLactic acidosisBody achesType 2 diabetes mellitus with other specified complication, unspecified whether horse racetrack manager insulin useIntractable nausea and vomitingProcedures:EKG-12 Lead ROUTINE ONCEDate/Time: 02/24/2024 3:32 AMPerformed by: Jody Cruz FNPAuthorized by: Jody Cruz FNPInterpretation:Interpretation: normalDetails: NSRRate:ECG rate: 81ECG rate assessment: normalRhythm:Rhythm: sinus rhythmEctopy:Ectopy: noneQRS:QRS axis: NormalQRS intervals: NormalQRS conduction: normalMDM:Medical Decision MakingDDX considered includes but not limited to dehydration, prateek, electrolyte abnormalities, NSTEMI, STEMI, pancreatitis, pneumonia, flu, covid 19, UTI, Intestinal obstruction, DM gastroparesis,Problems Addressed:Body aches: acute illness or injuryFatigue, unspecified type: acute illness or injuryHypokalemia: acute illness or injuryHypotension, unspecified hypotension type: acute illness or injuryDetails: Improved with IVF bolusLactic acidosis: acute illness or injuryNausea and vomiting, unspecified vomiting type: acute illness or injuryDetails: Epic chart review shows pt was admitted to this facility for intractable nausea and vomiting in 2021 and gastroparesis was considered as possible causeType 2 diabetes mellitus with other specified complication, unspecified whether senior living insulin use: chronic illness or injury with exacerbation, progression, or side effects of treatmentAmount and/or Complexity of Data ReviewedExternal Data Reviewed: labs and notes.Details: During admission to hospital in 2021Labs: ordered. Decision-making details documented in ED Course.Radiology: ordered. Decision-making details documented in ED Course.ECG/medicine tests: ordered. Decision-making details documented in ED Course.RiskPrescription drug management.Parenteral controlled substances.Flowsheet Documentation:Scoring Tools:No data recordedDisposition/Condition:ED DispositionNoneDischarge Medications:Patient's MedicationsSTART taking these medicationsNo medications on fileCONTINUE taking these medications which have NOT CHANGEDAPIXABAN 5 MG TABLET Take 1 tablet by mouth 2 (two) times daily. Indications: atrial fibrillationASPIRIN 81 MG CHEWABLE TABLET Take 81 mg by mouth daily.INSULIN GLARGINE 100 UNIT/ML INJECTION inject 10 Units under the skin daily. If not eating or if blood sugar is between 80 and 120 give HALF the dose. If blood sugar less than 80: Eat a meal and recheck. Give half dose of insulin once blood sugar over 120.INSULIN REGULAR HUMAN (HUMULIN R) 500 UNIT/ML INJECTION Do not take your scheduled regular insulin. [...] next meal and cover again with sliding scaleMETFORMIN 1,000 MG TABLET Take 1 tablet by mouth 2 (two) times daily with meals.METOPROLOL SUCCINATE ORAL Take 50 mg by mouth 2 (two) times daily.ZOBXU-6-VYU-BIN-WCS-FTTQ OIL (OMEGA-3 2100) 1,050-1,200 MG CAP Take by mouth 2 (two) times daily.ONDANSETRON (ZOFRAN ODT) 4 MG DISINTEGRATING TABLET Take 1 tablet by mouth every 8 (eight) hours as needed for Nausea and Vomiting (N/V).PANTOPRAZOLE 40 MG EC TABLET Take 40 mg by mouth 2 (two) times daily.SPIRONOLACTONE 25 MG TABLET Take 25 mg by mouth 2 (two) times daily.START taking Modified Medications as PrescribedNo medications on fileSTOP taking these medicationsNo medications on fileFollow-up:Electronically signed by:Jody Cruz [id number] ssociated attestation - Jasmin Russell MD - 02/24/2024 11:59 PM CDT Negrita was personally available for consultation in the Emergency Department during this encounter and patient evaluation by SANTIAGO Cruz.91401-5Asmeznbff Emergency department QgsiTG1650655Sjdhjw, [place] S1.2.840.117731.1.13.104.2.7.2.8369 30RvechmXpnmcwYCA7803-29-06M79:59:3 5Physician Emergency department NoteTXT1.2.840.713279.1.13.104.2.7. 2.349181|[id number] for patient ldus92319-2Btyhkufqb department NoteLNNARRATIVEFormatted C-CDA narrative text[address] Tu[id number] 0OPAXYUDHPDOUSNTIMQAGFW9904-57-88O4 3:59:351.2.840.693513.1.72.3.15|1.2 .840.072973.1.13.104.2.7.2.727879_2 [id number] [facility] [place] 2023-12-15 15:16:00 [id number] phaVgXUs7UMIXsq bDMzEWcudpLp8/68kWXgs/Msa/vti/04lEq p/dSSj6274-33-11G38:16:536589-4824 [facility] PATIENT NAME: LEANDRO LEHMAN ADMIT DATE: 11/10/23ACCOUNT NO: [id number] ROOM NO: V.2086 AGE: 53 REPORT TYPE: 360 - QUERY RESPONSE DOCUMENT SEX: M DATE OF : [birth year]ADMITTING PHYSICIAN:Jeremias Ibarra MD ATTENDING PHYSICIAN:Jeremias Ibarra MD Provider Query QUERY TEXT: Condition General 360MD Query related questions should be directed to: [phone] Based on the information in the medical [...] 3.375 mg every 8 hours. DC Summary 034170 Possible aspriation pneumonitis vs pulmonary edema. Pulmonology pns [id number] Options provided:-- Respond - Create new note now-- Dismiss - Not applicable / Not valid-- Dismiss - Clinically unable to determine / Unknown-- Assign to another provider QUERY RESPONSE: Aspiration pneumonia Query created by: Sydnee Rangel on 12/12/2023 9:46 AM at 1516 PATIENT NAME: LEANDRO LEHMAN noteV.[id number] for patient skmhCQGOYYZVQHYTNY8252-40-46L39:18: 15 [facility] 2023-12-12 09:03:00 [id number]/H5 5ZaUGYRJk9ApFzd PUKzTNcrNYv500nwBqdxw5Y46bAW4wOmlq5 [id number] [facility] PATIENT NAME: LEANDRO LEHMAN ADMIT DATE: 11/10/23ACCOUNT NO: [id number] ROOM NO: [id number] AGE: 53 REPORT TYPE: 360 - QUERY RESPONSE DOCUMENT SEX: M DATE OF : 71ADMITTING PHYSICIAN:Jeremias Ibarra MD ATTENDING PHYSICIAN:Jeremias Ibarra MD Provider Query QUERY TEXT: POA Indicator 360MD Query related questions should be directed to: [phone] Please indicate if the diagnosis of Sepsis was present on admission? The patient's Clinical Indicators include:The patient has severe sepsis with septic shock. pneumonia. Coding query response [id number] provided:-- Yes-- No-- W-- Other - I will add my own diagnosis-- Dismiss - Not applicable / Not valid-- Dismiss - Clinically unable to determine / Unknown-- Assign to another provider QUERY RESPONSE: Sepsis ruled out Query created by: Sydnee Rangel on 2023 9:52 AM at 0903 PATIENT NAME: LEANDRO LEHMAN noteV.[id number] for patient ljofYIVSMZJAAIDZQZ1941-32-99V00:04: 02 [facility] 2023-11-19 15:30:00 [id number]+1Wj2L+ RajRwJRAA/+Tk3z ZshzL1lbvRoLCdFh6K9U2J0gFchaFJYehVp jm5cwL8612-54-01W48:30:682883-0165 [facility] PATIENT NAME: LEANDRO LEHMAN ADMIT DATE: 11/10/23ACCOUNT NO: [id number] ROOM NO: V.2086 AGE: 52 REPORT TYPE: 360 - QUERY RESPONSE DOCUMENT SEX: M DATE OF : [birth year]ADMITTING PHYSICIAN:Jeremias Ibarra MD ATTENDING PHYSICIAN:Jeremias Ibarra MD Provider Query QUERY TEXT: Clarification Infectious Status 360MD Query related questions should be directed to:[facility] Coding Query Helpline Based on your clinical judgment, please clarify the condition(s) that represent(s) the clinical indicators listed below. The following definitions are provided based on industry literature and in collaboration with [facility] for your reference only:--Localized [...] 11/19/2023 12:57 AM at 1530 PATIENT NAME: LEANDRO LEHMAN noteV.[id number] for patient kquvDBBRADXWIYHRDT3079-59-80C24:32: 09 [facility] 2023-11-18 21:41:00 [id number] bj+I9GldSUIr4lM OJw+rNoeLQoo2eGZTQ7D6yGXhpQtmofYiJt Uq+Y2V5735-74-00Q91:41:00 [facility] ([facility])Nephrology Progress NoteREPORT#:[id number] REPORT STATUS: SignedREPORT INITIALIZATION DATE:11/18/23 TIME: 2140 PATIENT: LEANDRO LEHMAN UNIT #: [id number]#: [id number] [address] [birth year] AGE: 52 SEX: M ATTEND: [...] He endorsed having used Advil or Aleve qpjr-map-dtpkkii for back pain but not more than [...] He endorsed having used Advil or Aleve pbnb-hhg-iyhsuoy for back pain but not more than once or twice a day. Nephrology following for: 1. PRATEEK: Most likely prerenal as it improved with IV fluids. Plan to keep mean arterial pressure above 65 and avoid nephrotoxic agents 2. Hyponatremia: Resolved: Most likely secondary to hypotension and pneumonia. Plan to monitor closely. 3. Hypokalemia: Plan to monitor and replace as needed. 4. Pneumonia/infection: Plan to monitor renal dosing of medication. 11/17 1. PRATEEK: Most likely prerenal as it improved with IV fluids. Plan to keep mean arterial pressure above 65 and avoid nephrotoxic agents 2. Hyponatremia: Resolved: Most likely secondary to hypotension and pneumonia. Plan to monitor closely. 3. Hypokalemia/ hypophosphatemia: Plan to monitor and replace as needed. 4. Pneumonia/infection: Plan to monitor renal dosing of medication. at 2143 RPT #:[id number] OF REPORTPRProgress ejrn0868-44-57F02:41:00V.HTRH097434 -9AVAvailable for patient nnahYDHWBGQJHGLTMA9424-53-74Z60:43: 19 [facility] 2023-11-17 22:42:00 [id number] yyKN+8Oo9VW9cZu iwBL4E7V3vI3rpXWI8DuXmCd/imeKqA7oBe Shv7XT9501-58-62L01:42:00 [facility] ([facility])Nephrology Progress NoteREPORT#:[id number] REPORT STATUS: SignedREPORT INITIALIZATION DATE:11/17/23 TIME: 2241 PATIENT: LEANDRO LEHMAN UNIT #: [id number]#: [id number] ROOM/BED: 2085-ADOB: [birth year] AGE: 52 SEX: M ATTEND: Jeremias Ibarra AUTHOR: Christa Maurer MDREPT SERVICE DT/TIME: 11/17/232241 * ALL edits or amendments must be [...] He endorsed having used Advil or Aleve hjot-gak-yjbsxjp for back pain but not more than [...] He endorsed having used Advil or Aleve oyqf-hem-fswltte for back pain but not more than once or twice a day. Nephrology following for: 1. PRATEEK: Most likely prerenal as it improved with IV fluids. Plan to keep mean arterial pressure above 65 and avoid nephrotoxic agents 2. Hyponatremia: Resolved: Most likely secondary to hypotension and pneumonia. Plan to monitor closely. 3. Hypokalemia: Plan to monitor and replace as needed. 4. Pneumonia/infection: Plan to monitor renal dosing of medication. 11/17 1. PRATEEK: Most likely prerenal as it improved with IV fluids. Plan to keep mean arterial pressure above 65 and avoid nephrotoxic agents 2. Hyponatremia: Resolved: Most likely secondary to hypotension and pneumonia. Plan to monitor closely. 3. Hypokalemia/ hypophosphatemia: Plan to monitor and replace as needed. 4. Pneumonia/infection: Plan to monitor renal dosing of medication. at 2243 RPT #:[id number] OF REPORTPRProgress ewoj4075-71-66D10:42:00V.YYVN016745 1186AVAvailable for patient fqnfTCWUTAASHVUVNG6243-21-45Z58:43: 57 [facility] 2023-11-17 18:00:00 [id number] BK/xoJ99pJpiZSN x0yGDOmIKXQqMkM24M8Nlv1HeYKuH1jZYKT hXDrnl5014-66-04G89:00:00 [facility] ([facility] Progress NoteREPORT#:[id number] REPORT STATUS: SignedREPORT INITIALIZATION DATE:11/17/23 TIME: 1800 PATIENT: LEANDRO LEHMAN UNIT #: [id number]#: [id number] [address] [birth year] AGE: 53 SEX: M ATTEND: StaceyJeremias J [facility] AUTHOR: Jose Miguel Roca MDREPT SERVICE DT/TIME: 11/17/23 1800 * ALL edits or amendments must be made on the electronic/computer document * SubjectiveChief complaint:Shortness of breathHPI:52-year-old male was transferred from outside facility to [facility] with shortness of breath patient is obese, never been diagnosed with obstructive sleep apnea. Patient was admitted from October 19 8 November 05, with hypercapnic respiratory failure-also had left heart cath which was normalCT chest reviewed it is showing possibility of aspiration versus resolving pneumonia may be mild pulmonary edema External record: Patient was recently admitted at [facility] from October 27 through November 05 with [...] clear to auscultationAbdomen: soft, non-tenderExtremities: no pedal edemaNeuro/CASINO RUNNER: alert Diagnosis, Assessment PlanFree Text A P:52-year-old [...] likely has COVID-related scarring at 1727 RPT #:[id number] OF REPORTPRProgress dyez9517-88-87V67:00:00V.[id number] AVAvailable for patient xdbmFUOJBLXLTVUPIJ5169-55-10N74:28: 44 [facility] 2023-11-17 16:00:00 [id number]+4 n6/Ye+xM7BJ/TUF Jsk3aPIlxyC0VO7ZceRviPTQiG5xDOb2Pd2 YoAzul8172-22-46J71:00:00 [facility] ([facility])Hospitalist Discharge SummaryREPORT#:[id number] REPORT STATUS: SignedREPORT INITIALIZATION DATE:11/17/23 TIME: 1599 PATIENT: LEANDRO LEHMAN UNIT #: [id number]#: [id number] ROOM/BED: [facility]-ADOB: [birth year] AGE: 52 SEX: M ATTEND: Jeremias Ibarra MDADM AUTHOR: Jeremias Ibarra MDREPT SERVICE DT/TIME: 11/17/23 1600 * ALL edits or amendments must be made on the electronic/computer document * General InformationDate of admission:Observation Start Date: Date of admission: 11/10/23 Discharge date: 11/17/23Discharge diagnosis:acute respiratory failure with hypoxemiapneumoniaHospital course:# Acute respiratory failure with hypoxemiasecondary to pneumoniaimproved. faucets assembler recommends weaning oxygen. patient weaned to 4L of oxygen and tolerated. patient has home oxygen #PneumoniaSuspect community-acquired pneumonia. Chest x-ray shows patchy left interstitial infiltrate.Cannot rule out multidrug-resistant organisms such as Pseudomonas given patient's recent hospitalization 1 week ago. Cover for Pseudomonas with IV Zosyn 3.375 mg every 8 hours #Acute renal failureSuspect PRATEEK versus CKD stage IIIaAvoid nephrotoxic #Diabetes mellitus [...] range of motion, no CVA tenderness,no muscle spasmNeuro/CASINO RUNNER: alert, oriented X 3, CNII-XII intact, normal speech, no motor deficits, no sensory deficitsSkin: dry, intact, normal color, normal temperature, no rashLymphatics: axilla normal, inguinal normal, neck normal, no lymphadenopathyPsychiatry: normal affect, normal judgment/insight, normal mood, not homicidal, not suicidal Discharge Instructions PCPDischarge to: Home/Self CareAdditional Discharge Routines: Veneer Glue Spreader Follow-Up, Equipment/SuppliesDiet: Resume Home Diet/FeedsActivity: As ToleratedEquipment/supplies: Oxygen therapy Follow-up AppointmentsConsulting provider 1: Provider 1: Jose Miguel Roca MD Specialty: Internal Medicine Consult follow up timeframe: In 1-2 weeks Quality: Discharge Current MedicationsCurrent medication review:I attest that the foregoing medication list in the medical record is true, accurate, and complete to the best of my knowledge. at 0912 RPT #:[id number] OF REPORTDSDischarge gvyslus0822-70-05O76:00:00V.TBZB097 97233-5273SBJuvohoxkq for patient ktvcMVHRGFTXEZYOZS4794-13-80K58:12: 25 [facility] 2023-11-16 19:23:00 [id number] ltot64t0HPn1O+a 7HhGdl0/6C5OqRIzF2B8DRX8aZ/hC2Gu2sU H9jvd91275-42-80R65:23:00 [facility] ([facility])Pulmonology Progress NoteREPORT#:[id number] REPORT STATUS: SignedREPORT INITIALIZATION DATE:11/16/23 TIME: 1922 PATIENT: LEANDRO LEHMAN UNIT #: [id number]#: [id number] [address] [birth year] AGE: 52 SEX: M ATTEND: Jeremias Ibarra [facility] AUTHOR: Jose Miguel Roca MDREPT SERVICE DT/TIME: 11/16/231922 * ALL edits or amendments must be made on the electronic/computer document * SubjectiveChief complaint:Shortness of breathHPI:52-year-old male was transferred from outside facility to [facility] with shortness of breath patient is obese, never been diagnosed with obstructive sleep apnea. Patient was admitted from October 19 8 November 05, with hypercapnic respiratory failure-also had left heart cath which was normalCT chest reviewed it is showing possibility of aspiration versus resolving pneumonia may be mild pulmonary edema External record: Patient was recently admitted at [facility] from October 27 through November 05 with [...] name: Yasemin Navarro RDN, LDAssessment completed: 11/11/23 ___ Physical ExamGeneral appearance: alert, awakeHead/eyes: atraumatic, normocephalicCardiovascular: regular rate rhythmRespiratory/chest: aerating well, clear to auscultationAbdomen: soft, non-tenderExtremities: no pedal edemaNeuro/CASINO RUNNER: alert Diagnosis, Assessment PlanFree Text A P:52-year-old [...] likely has COVID-related scarring at 1926 RPT #:[id number] OF REPORTPRProgress oncv3789-76-09Y91:23:00V.[id number] AVAvailable for patient rhylPFTASCPCTBXKSH1313-90-83K80:26: 28 [facility] 2023-11-16 14:01:00 [id number] LfmNRJOIVGEJC0L 3GC0AJ0TjiJTW25RasPohGa9PhwDZ6vA6YV MYgdp41706-14-90G06:01:00 [facility] Progress NoteREPORT#:[id number] REPORT STATUS: SignedREPORT INITIALIZATION DATE:11/16/23 TIME: 140 PATIENT: LEANDRO LEHMAN UNIT #: [id number]#: [id number] ROOM/BED: [facility]-ADOB: [birth year] AGE: 52 SEX: M ATTEND: Jeremias [...] He endorsed having used Advil or Aleve nmtu-bmk-jeepcrt for back pain but not more than [...] He endorsed having used Advil or Aleve ukol-pcg-yynpoqh for back pain but not more than once or twice a day. Nephrology following for: 1. PRATEEK: Most likely prerenal as it improved with IV fluids. Plan to keep mean arterial pressure above 65 and avoid nephrotoxic agents 2. Hyponatremia: Resolved: Most likely secondary to hypotension and pneumonia. Plan to monitor closely. 3. Hypokalemia: Plan to monitor and replace as needed. 4. Pneumonia/infection: Plan to monitor renal dosing of medication. 11/16 1. PRATEEK: Most likely prerenal as it improved with IV fluids. Plan to keep mean arterial pressure above 65 and avoid nephrotoxic agents 2. Hyponatremia: Resolved: Most likely secondary to hypotension and pneumonia. Plan to monitor closely. 3. Hypokalemia/ hypophosphatemia: Plan to monitor and replace as needed. 4. Pneumonia/infection: Plan to monitor renal dosing of medication. at 1314 [facility] #:[id number] OF REPORTPRProgress jccz9764-96-03E28:01:00V.[id number] 18-0633AVAvailable for patient youaRERYSPRDGWLEGK0179-15-25C91:15: 09 [facility] 2023-11-16 13:54:00 [id number] aJfHtiLQlWUu8L+ K2cWRpTsGgtM3F8AJiFQGx5Tl4wXAdTi09g kT2QEJ3169-29-06U09:54:00 [facility] ([facility])Hospitalist Progress NoteREPORT#:[id number] REPORT STATUS: SignedREPORT INITIALIZATION DATE:11/16/23 TIME: 1353 PATIENT: LEANDRO LEHMAN UNIT #: [id number]#: [id number] [address] [birth year] AGE: 52 SEX: M ATTEND: [...] range of motion, no CVA tenderness,no muscle spasmNeuro/CASINO RUNNER: alert, oriented X 3, CNII-XII intact, normal speech, no motor deficits, no sensory deficitsSkin: dry, intact, normal color, normal temperature, no rashLymphatics: axilla normal, inguinal normal, neck normal, no lymphadenopathyPsychiatry: normal affect, normal judgment/insight, normal mood, not homicidal, not suicidal Diagnosis, Assessment Plan Free Text DxA P NotesFree text DxA P notes:# Acute respiratory failure with hypoxemiasecondary to pneumoniaimproved. faucets assembler recommends weaning oxygen down to 10L oxygen via regularnasal canula #PneumoniaSuspect community-acquired pneumonia. Chest x-ray shows patchy left interstitial infiltrate.Cannot rule out multidrug-resistant organisms such as Pseudomonas given patient's recent hospitalization 1 week ago. Cover for Pseudomonas with IV Zosyn 3.375 mg every 8 hours #Acute renal failureSuspect PRATEEK versus CKD stage IIIaAvoid nephrotoxic #Diabetes mellitus [...] the best of my knowledge. at 1245 [facility] #:[id number] OF REPORTPRProgress nnhy3649-08-14F37:54:00V.[id number] AVAvailable for patient fjgxQFJUJLEEGBOYKV3872-23-47H30:46: 21 [facility] 2023-11-16 12:26:00 [id number] FKFmOc3o/W61POU pWJ50ZP+IbLFTtTaVdqyouGjdyp+s3FNciY CN/HhV1502-72-02P17:26:00 [facility] ([facility])Gastroenterology Progress NoteREPORT#:[id number] REPORT STATUS: SignedREPORT INITIALIZATION DATE:11/16/23 TIME: 122 PATIENT: LEANDRO LEHMAN UNIT #: [id number]#: [id number] ROOM/BED: [facility]-ADOB: [birth year] AGE: 52 SEX: M ATTEND: Jeremias Ibarra [facility] AUTHOR: Maria Del Carmen Puentes SERVICE DT/TIME: [...] 50 11/16 0006 O2 Delivery Nasal cannula 11/15 2108 O2 Flow Rate 7 11/15 2108 [...] name: Yasemin Navarro RDN, LDAssessment completed: 11/11/23 ___ Physical ExamGeneral appearance: alert, awake, orientedHEENT: atraumatic, normocephalicNeck: no JVDCardiovascular: normal S1/S2, regular rate rhythmRespiratory: equal breath sounds, symmetric expansionAbdomen: non-tender, normal bowel sounds, soft, no distentionExtremities: decreased range of motionMusculoskeletal: decreased ROMNeuro/CASINO RUNNER: alert, oriented X 3, no sensory deficitsSkin: [...] monitor PRN at 1228 at 1649 RPT #:[id number] OF REPORTPRProgress oupe2380-25-06E58:26:00V.OUPK381095 18-0487AVAvailable for patient yiiyQUMISCLYBQMJKF4764-91-26G77:28: 50 [facility] 2023-11-15 18:47:00 [id number] /peRyGe8Rkxa2xd 6ODOU13uh3iG9VQjcNuQOUpH4VpOJF2x3hb 04PDwV4866-91-77E50:47:00 [facility] ([facility])Pulmonology Progress NoteREPORT#:[id number] REPORT STATUS: SignedREPORT INITIALIZATION DATE:11/15/23 TIME: 1846 PATIENT: LEANDRO LEHMAN UNIT #: [id number]#: [id number] ROOM/BED: [facility]-ADOB: [birth year] AGE: 52 SEX: M ATTEND: Jeremias Ibarra MDADM AUTHOR: Jose Miguel Roca MDREPT SERVICE DT/TIME: 11/15/231846 * ALL edits or amendments must be made on the electronic/computer document * SubjectiveChief complaint:Shortness of breathHPI:52-year-old male was transferred from outside facility to [facility] with shortness of breath patient is obese, never been diagnosed with obstructive sleep apnea. Patient was admitted from October 19 8 November 05, with hypercapnic respiratory failure-also had left heart cath which was normalCT chest reviewed it is showing possibility of aspiration versus resolving pneumonia may be mild pulmonary edema External record: Patient was recently admitted at [facility] from October 27 through November 05 with [...] name: Yasemin Navarro RDN, LDAssessment completed: 11/11/23 ___ Physical ExamGeneral appearance: alert, awakeHead/eyes: atraumatic, normocephalicCardiovascular: regular rate rhythmRespiratory/chest: aerating well, clear to auscultationAbdomen: soft, non-tenderExtremities: no pedal edemaNeuro/CASINO RUNNER: alert Diagnosis, Assessment PlanFree Text A P:52-year-old [...] flow overall remained stable at 1848 RPT #:[id number] OF REPORTPRProgress yfjk9119-35-28O72:47:00V.[id number] VAvailable for patient shgaZDVJAEGUCTUVTV9916-87-07M75:48: 39 [facility] 2023-11-15 15:29:00 [id number] s89JEibLogiGzuM PopL9Ak1DAfE4aXYXIQaRdnflDI12MLpZBu bQ5CAh4683-45-69R07:29:00 [facility] ([facility])Hospitalist Progress NoteREPORT#:[id number] REPORT STATUS: SignedREPORT INITIALIZATION DATE:11/15/23 TIME: 1528 PATIENT: LEANDRO LEHMAN UNIT #: [id number]#: [id number] [address] [birth year] AGE: 52 SEX: M ATTEND: [...] 2320 36.9 90 17 155/54 87.6 96 11/147 94 25 96 15 70 11/14 2257 [...] range of motion, no CVA tenderness,no muscle spasmNeuro/CASINO RUNNER: alert, oriented X 3, CNII-XII intact, normal speech, no motor deficits, no sensory deficitsSkin: dry, intact, normal color, normal temperature, no rashLymphatics: axilla normal, inguinal normal, neck normal, no lymphadenopathyPsychiatry: normal affect, normal judgment/insight, normal mood, not homicidal, not suicidal Diagnosis, Assessment Plan Free Text DxA P NotesFree text DxA P notes:# Acute respiratory failure with hypoxemiasecondary to pneumoniaimproved. faucets assembler recommends weaning oxygen down to 10L oxygen via regularnasal canula #PneumoniaSuspect community-acquired pneumonia. Chest x-ray shows patchy left interstitial infiltrate.Cannot rule out multidrug-resistant organisms such as Pseudomonas given patient's recent hospitalization 1 week ago. Cover for Pseudomonas with IV Zosyn 3.375 mg every 8 hours #Acute renal failureSuspect PRATEEK versus CKD stage IIIaAvoid nephrotoxic #Diabetes mellitus [...] best of my knowledge. at 2114 RPT #:[id number] OF REPORTPRProgress wlbt9466-65-82N07:29:00V.[id number] 17-0543AVAvailable for patient yvzcXEVILSHYLBMIHJ7711-49-93O11:15: 07 [facility] 2023-11-15 10:40:00 [id number]/K/C YFGnslmPBJudxA8 4eLz+sQuk0+WwMohnq/OXkX1ZhkQdmhbz8G dLYkhc5446-49-38H51:40:00 [facility])Nephrology Consultation NoteREPORT#:[id number] REPORT STATUS: SignedREPORT INITIALIZATION DATE:11/15/23 TIME: 104 PATIENT: LEANDRO LEHMAN UNIT #: [id number]#: [id number] [address] [birth year] AGE: 52 SEX: M ATTEND: [...] He endorsed having used Advil or Aleve bzre-atl-zaqwinm for back pain but not more than [...] He endorsed having used Advil or Aleve sglj-zdh-dsyqwrf for back pain but not more than once or twice a day. Nephrology following for: 1. PRATEEK: Most likely prerenal as it improved with IV fluids. Plan to keep mean arterial pressure above 65 and avoid nephrotoxic agents 2. Hyponatremia: Resolved: Most likely secondary to hypotension and pneumonia. Plan to monitor closely. 3. Hypokalemia: Plan to monitor and replace as needed. 4. Pneumonia/infection: Plan to monitor renal dosing of medication. at 1400 RPT #:[id number] OF REPORTJSFxkjsqgtkjyk5904-42-43V3 0:40:00V.QTVR63037013-7231VQUtofpkx le for patient xxfzEHARNVWFZJUSUD6868-31-35D09:01: 02 [facility] 2023-11-14 19:34:00 [id number] d984YTnPx3CYBz7 Ti7ugNrL+njy3HxF0ne0WuCUPRzObrCRWPi WrVOnY1789-36-86H27:34:00 [facility] ([facility])Pulmonology Progress NoteREPORT#:[id number] REPORT STATUS: SignedREPORT INITIALIZATION DATE:11/14/23 TIME: 1933 PATIENT: LEANDRO LEHMAN UNIT #: [id number]#: [id number] ROOM/BED: 2085-ADOB: [birth year] AGE: 52 SEX: M ATTEND: Jeremias Ibarra MDADM AUTHOR: Jose Miguel Roca MDREPT SERVICE DT/TIME: 11/14/231933 * ALL edits or amendments must be made on the electronic/computer document * SubjectiveChief complaint:Shortness of breathHPI:52-year-old male was transferred from outside facility to [facility] with shortness of breath patient is obese, never been diagnosed with obstructive sleep apnea. Patient was admitted from October 19 8 November 05, with hypercapnic respiratory failure-also had left heart cath which was normalCT chest reviewed it is showing possibility of aspiration versus resolving pneumonia may be mild pulmonary edema External record: Patient was recently admitted at [facility] from October 27 through November 05 with hypercapnic respiratory failure, unstable angina and NSTEMI. Per the notes the patient had a left heart cath which showed normal coronary arteries and patient was discharged in a stable condition. Comments:Overall breathing is stable Objective Physical ExamHead/eyes: atraumatic, normocephalicCardiovascular: regular rate rhythmRespiratory/chest: decreased breath soundsAbdomen: soft, non-tenderExtremities: no pedal edemaNeuro/CASINO RUNNER: alert Diagnosis, Assessment PlanFree Text A P:52-year-old [...] study as an outpatient at 0016 RPT #:[id number] OF REPORTPRProgress kbbg5725-16-09J90:34:00V.ATKH932453 0756AVAvailable for patient mseuFYMUMXKDCQOBAT4949-93-94F18:17: 43 [facility] 2023-11-14 18:46:00 [id number]/06ExZb SDW8vUgpoje2Xpd TeRWfBimYJDkiS9t5mwLWpaFOLjTy+ugbAp /IgxQ+9897-97-68L16:46:00 [facility] ([facility])Hospitalist Progress NoteREPORT#:[id number] REPORT STATUS: SignedREPORT INITIALIZATION DATE:11/14/23 TIME: 1845 PATIENT: LEANDRO LEHMAN UNIT #: [id number]#: [id number] ROOM/BED: 2085-ADOB: [birth year] AGE: 52 SEX: M [...] 2252 37.3 111 17 137/76 96.5 93 12/15 2134 25 50 11/135 High flow 25 50 nasal cannula 11/13 [...] range of motion, no CVA tenderness,no muscle spasmNeuro/CASINO RUNNER: alert, oriented X 3, CNII-XII intact, normal [...] mg every 8 hours #Acute renal failureSuspect PRATEEK versus CKD stage IIIaAvoid nephrotoxic #Diabetes mellitus [...] best of my knowledge. at 1857 RPT #:[id number] OF REPORTPRProgress eehj1331-78-10O21:46:00V.ICUW120100 AVAvailable for patient yiyoNZHNDMSKZLBGZD5270-02-80T28:58: 25 [facility] 2023-11-13 17:55:00 [id number] 2wZU+HpbPoDvSEE iG0CmQHTobkh3WSODxw9FROlWem5h3aOOUK sOPbMW1487-42-70Z36:55:00 [facility] ([facility])Pulmonology Progress NoteREPORT#:[id number] REPORT STATUS: SignedREPORT INITIALIZATION DATE:11/13/23 TIME: 1754 PATIENT: LEANDRO LEHMAN UNIT #: [id number]#: [id number] [address] [birth year] AGE: 52 SEX: M ATTEND: Jeremias Ibarra [facility] AUTHOR: Jose Miguel Roca MDREPT SERVICE DT/TIME: 11/13/231754 * ALL edits or amendments must be made on the electronic/computer document * SubjectiveChief complaint:Shortness of breathHPI:52-year-old male was transferred from outside facility to [facility] with shortness of breath patient is obese, never been diagnosed with obstructive sleep apnea. Patient was admitted from October 19 8 November 05, with hypercapnic respiratory failure-also had left heart cath which was normalCT chest reviewed it is showing possibility of aspiration versus resolving pneumonia may be mild pulmonary edema External record: Patient was recently admitted at [facility] from October 27 through November 05 with [...] name: Yasemin Navarro RDN, LDAssessment completed: 11/11/23 ___ Physical ExamHead/eyes: atraumatic, normocephalicCardiovascular: regular rate rhythmRespiratory/chest: aerating well, clear to auscultationAbdomen: soft, non-tenderExtremities: no pedal edemaNeuro/CASINO RUNNER: alert Diagnosis, Assessment PlanFree Text A P:52-year-old [...] high flow nasal cannula at 0015 RPT #:[id number] OF REPORTPRProgress qtog5979-83-19I76:55:00V.GXDM794948 -0848AVAvailable for patient wkhlUCAOOCNLQBQBKL7005-30-21B75:17: 41 [facility] 2023-11-13 12:54:00 [id number] kTq5bqrE1wexisw PqdYeRVHuHQiiRjIBfpFm7Dr95nbiBo3+hT K+xJs96235-02-39V69:54:00 [facility] ([facility])Hospitalist Progress NoteREPORT#:[id number] REPORT STATUS: SignedREPORT INITIALIZATION DATE:11/13/23 TIME: 1254 PATIENT: LEANDRO LEHMAN UNIT #: [id number]#: [id number] ROOM/BED: 2086-ADOB: [birth year] AGE: 52 SEX: M ATTEND: DonyaduaneLindsey Damian MDADM AUTHOR: Lindsey Coyle Damian MDREPT SERVICE DT/TIME: 11/13/23 1252 * ALL [...] 2300 98.8 99 17 108/68 81.6 96 11/12 2036 99 20 99 25 65 11/12 [...] range of motion, no CVA tenderness,no muscle spasmNeuro/CASINO RUNNER: alert, oriented X 3, CNII-XII intact, normal [...] mg every 8 hours #Acute renal failureSuspect PRATEEK versus CKD stage IIIaAvoid nephrotoxic #Diabetes mellitus [...] best of my knowledge. at 1255 RPT #:[id number] OF REPORTPRProgress wdue8790-23-23S16:54:00V.IUVZ696708 15-0477AVAvailable for patient rkpwXQBOEGZIMJPMZD4932-92-51N05:56: 51 [facility] 2023-11-13 09:23:00 [id number] 3XuIw60nho5nXyt 9HNhzqfbpAqPltSKIkNVHF2BhTPiKNwNi8M XgN/yj9483-16-74S82:23:00 [facility] ([facility])GE Consultation NoteREPORT#:[id number] REPORT STATUS: SignedREPORT INITIALIZATION DATE:11/13/23 TIME: 922 PATIENT: LEANDRO LEHMAN UNIT #: [id number]#: [id number] [address] [birth year] AGE: 52 SEX: M ATTEND: Lindsey Coyle [facility] AUTHOR: Maria Del Carmen Puentes SERVICE DT/TIME: [...] 12/10 1129 0817 Electrolytic, Caloric, And Jeffery Sig/Morales Start time Last Medication Dose Route [...] 11/13 1103 O2 Delivery Nasal cannula 11/13 1103 Temp 99.0 11/13 1103 Pulse 105 11/13 [...] no distentionExtremities: decreased range of motionMusculoskeletal: decreased ROMNeuro/CASINO RUNNER: alert, oriented X 3, no sensory deficitsSkin: [...] % (Auto) (25.0 - 55.0 %) 36.3 [place] % (Auto) (0.0 - 10.0 %) 13.6 H Eos % (Auto) (0.0 - 5.0 %) 4.5 Baso % (Auto) (0.0 - 1.0 %) 1.5 H Neut # (Auto) (1.8 - 7.7 K/mm3) 2.42 Lymph # (Auto) (1.0 - 5.0 K/mm3) 2.00 [place] # (Auto) (0 - 0.8 K/mm3) 0.75 [...] as needed at 1403 at 1536 RPT #:[id number] OF REPORTROKfwxedtzscvp6231-22-10X4 9:23:00V.AYHG96286224-9620CGRmggfvd for patient wfunNMFCWJFTPYIEAE7284-05-09Q83:03: 50 [facility] 2023-11-12 17:08:00 [id number] M4UyO4r9mk1B1YH AYjrNbzeKyF6ghyjQe0IqduKRYYAp4IOISb H4+vKk0811-47-87L73:08:00 [facility] ([facility])Pulmonary Consultation NoteREPORT#:[id number] REPORT STATUS: SignedREPORT INITIALIZATION DATE:11/12/23 TIME: 1707 PATIENT: LEANDRO LEHMAN UNIT #: [id number]#: [id number] ROOM/BED: -ADOB: [birth year] AGE: 52 SEX: M ATTEND: Lindsey Coyle MDADM AUTHOR: Jose Miguel Roca MDREPT SERVICE DT/TIME: 11/12/231707 * ALL edits or amendments must be made on the electronic/computer document * History of Present Illness HPIRequesting clinician: Dr Rosario for consult:HypoxiaChief complaint:Shortness of breathHPI:52-year-old male was transferred from outside facility to [facility] with shortness of breath patient is obese, never been diagnosed with obstructive sleep apnea. Patient was admitted from October 19 8 November 05, with hypercapnic respiratory failure-also had left heart cath which was normalCT chest reviewed it is showing possibility of aspiration versus resolving pneumonia may be mild pulmonary edema External record: Patient was recently admitted at [facility] from October 27 through November 05 with [...] Ox 96 11/12 2300 B/P 108/68 11/12 230 B/P Mean 81.6 11/12 2300 Temp 98.8 11/12 2300 Pulse 99 11/12 2300 Resp 17 11/12 2300 O2 Delivery High flow nasal cannula 11/12 1606 FiO2 50 11/12 0830 O2 Flow Rate 25 11/12 0830 General appearance: alert, awakeHead/eyes: atraumatic, normocephalicCardiovascular: regular rate rhythmRespiratory/chest: decreased breath soundsAbdomen: soft, non-tenderExtremities: no pedal edemaNeuro/CASINO RUNNER: alert Diagnosis, Assessment Plan Free Text DxA [...] Thank you for the consult at 0018 RPT #:[id number] OF REPORTEWXpjouyvpoaju8392-92-04M5 7:08:00V.ADWM32951292-5525CBUuoqzvt le for patient icgsOYCSFKXPNNDXBG5512-94-87H15:18: 51 [facility] 2023-11-12 12:26:00 [id number]/+ zBWw/6oGPNQbYCN 2ykrLn39igIdl8NXOHNI9royvXp9W41+GhJ p7GGZo9931-36-45E96:26:00 [facility] ([facility])Hospitalist Progress NoteREPORT#:[id number] REPORT STATUS: SignedREPORT INITIALIZATION DATE:11/12/23 TIME: 122 PATIENT: LEANDRO LEHMAN UNIT #: [id number]#: [id number] ROOM/BED: [facility]-ADOB: [birth year] AGE: 52 SEX: M ATTEND: Lindsey [...] O2 Flow FiO2 Mean Ox Delivery Rate 12/14 1135 98.4 111 16 105/62 76.4 98 High flow nasal cannula /14 0819 98.2 115 16 100/67 77.7 92 High flow nasal cannula 14 0615 103 27 117/61 82 100 /14 0600 103 28 119/65 80 100 /14 0545 104 31 134/72 95 100 /14 0530 104 31 133/73 96 100 /14 0515 101 30 124/69 90 100 /14 0500 104 31 116/60 83 100 /14 0445 104 32 114/59 81 99 12/14 0430 106 31 116/56 98 /14 0415 106 9 115/59 81 98 /14 0400 111 26 114/62 82 99 /14 0400 98.6 99 BiPAP 14 0345 104 35 121/69 89 99 /14 [...] 86 100 /14 0000 98.5 100 BiPAP 11/11 2345 107 30 128/67 89 99 / 2330 117 40 134/72 97 100 / 2315 114 38 129/64 89 100 / 2300 109 12 135/67 94 100 / 2245 110 36 137/72 94 100 / 2230 108 35 140/69 99 100 11/11 2215 112 38 138/68 95 100 11/11 2212 112 28 146/74 98 100 / 2145 110 19 132/64 89 100 / 2130 115 12 138/58 91 100 2115 102 29 149/67 97 99 11/11 [...] range of motion, no CVA tenderness,no muscle spasmNeuro/CASINO RUNNER: alert, oriented X 3, CNII-XII intact, normal [...] mg every 8 hours #Acute renal failureSuspect PRATEEK versus CKD stage IIIaAvoid nephrotoxic #Diabetes mellitus [...] best of my knowledge. at 1242 RPT #:[id number] OF REPORTPRProgress zbpp1873-99-64W36:26:00V.PIHO501338 AVAvailable for patient pufyTHMJESGYGRBKLI9615-84-88S02:42: 23 [facility] 2023-11-12 04:41:00 [id number] FiBQ42a0JYUTFHG sMJfXxVejQHHw1KiID3jRlgBj8OqdogPmbZ aQRyfc7995-34-90Y07:41:701170-6782 [facility] PATIENT NAME: LEANDRO LEHMAN ADMIT DATE: 11/10/23ACCOUNT NO: [id number] ROOM NO: [facility] AGE: 52 REPORT TYPE: eNVL VENOUS ULTRASOUND SEX: M DATE OF : [birth year]ADMITTING PHYSICIAN:Lindsey Coyle MD ATTENDING PHYSICIAN:Lindsey Coyle MD *[facility]*[address] [place] [address] 24350Dwlgtne Lower Extremity Venous Duplex Evaluation Patient: Tegan Lehmanudmalika Date: 3BP:URN: [id number]: [id number]#: [id number]: 1970Age: 52Gender: MHeight: 67 in / 170.2 cmWeight: 108 lb / 49 kgBMI/BSA: 16.9 kg/m 2 / 1.51 m 2*Ordering Physician: * Meryl Rey*Interpreting Physician: * Valerio Loza*Order Worker: * Mirtha Bazzi --------Indications: RULE OUT DVT. --------Study data: Lower extremity venous duplex evaluation. Bilateral evaluationwith grayscale 2D imaging, color Doppler imaging, and spectral Doppleranalysis. Location: Bedside. Patient status: Inpatient. Patient roomnumber: S19-A. Procedure: A vascular evaluation was performed. The study wastechnically limited due to patient positioning and limited access to patient.Study status: Stat. --------Venous flow: + + +! Location !Properties !+ + + !R CFV !Phasic; spontaneous; normal augmentation; compressible !+ + + PATIENT NAME: LEANDRO LEHMAN !R GSV !Phasic; spontaneous; normal augmentation; compressible !+ + + !R DFV !Phasic; spontaneous; normal augmentation; compressible !+ + + !R FV !Phasic; spontaneous; normal augmentation; compressible !+ + + !R popliteal!Phasic; spontaneous; normal augmentation; compressible !+ + + !R PTV !Phasic ; spontaneous; normal augmentation; compressible!+ +--------- +!L CFV !Phasic; spontaneous; normal augmentation; compressible !+ + + !L GSV !Phasic; spontaneous; normal augmentation; compressible !+ + + !L DFV !Phasic; spontaneous; normal augmentation; compressible !+ + + !L FV !Phasic; spontaneous; normal augmentation; compressible !+ + + !L popliteal!Phasic; spontaneous; normal augmentation; compressible !+ + + !L PTV !Phasic; spontaneous; normal augmentation; compressible !+ + + *Velocities are expressed in cm/s, Diameters are expressed in cm --------Conclusions 1. There is no evidence of acute deep or superficial venous thrombosis noted in the right lower extremity.2. There is no evidence of acute deep or superficial venous thrombosis noted in the left lower extremity.Electronically signed by Wes Loza01/13/2023 04:41 at 0441 PATIENT NAME: LEANDRO LEHMAN jdnmuyc4253-79-35H41:41:00V.IXN7121 1214-0001AVAvailable for patient qgjfQGXUPBLWWKYBHT6077-97-16Y62:42: 11 [facility] 2023-11-11 14:26:00 [id number] Ejg6c02lf8WqUmJ cS3WF5Pm0l0aku10b9EHIGcNnwheiUF2jmU BgeVK96999-22-27X65:26:00 [facility] ([facility])Hospitalist Progress NoteREPORT#:[id number] REPORT STATUS: SignedREPORT INITIALIZATION DATE:11/11/23 TIME: 1425 PATIENT: LEANDRO LEHMAN UNIT #: [id number]#: [id number] [facility] AGE: 52 SEX: M ATTEND: Lindsey [...] 11/11 0715 120 19 130/60 86 98 11/11 0700 112 11/11 0700 111 28 124/60 85 90 11/11 [...] 11/10 2130 118 10 125/60 86 95 11/105 117 121/56 81 90 11/10 2100 119 34 121/56 81 92 11/105 119 23 117/54 78 94 11/10 2030 115 22 120/51 79 93 11/10 2015 115 127/60 87 92 11/10 2000 115 125/59 85 92 11/10 2000 99.2 96 High flow 30 80 nasal cannula 11/10 1945 112 132/61 88 94 11/10 1930 120 30 121/65 86 99 11/10 1915 120 24 113/56 81 96 11/10 [...] range of motion, no CVA tenderness,no muscle spasmNeuro/CASINO RUNNER: alert, oriented X 3, CNII-XII intact, normal [...] mg every 8 hours #Acute renal failureSuspect PRATEEK versus CKD stage IIIaAvoid nephrotoxic #Diabetes mellitus type 2Check hgb Q5Abciepqp checks AC and HSsliding scale insulin #HypertensionIV [...] best of my knowledge. at 1427 RPT #:[id number] OF REPORTPRProgress nneb3045-56-37D71:26:00V.ONJL730658 AVAvailable for patient cvjyZIVODNCPPLRQML8684-92-42V67:28: 04 [facility] 2023-11-11 13:10:00 [id number] EPXi/1DLUxn7tmL PsL2EGsW9R6wqMMRADNznsTy4y7h0wNINhE GUGjvn8855-70-34Z81:10:00 [facility] ([facility])Critical Care Progress NoteREPORT#:[id number] REPORT STATUS: SignedREPORT INITIALIZATION DATE:11/11/23 TIME: 1310 PATIENT: LEANDRO LEHMAN UNIT #: [id number]#: [id number] [facility] [birth year] AGE: 52 SEX: M ATTEND: Lindsey Coyle Damian MDADM AUTHOR: Meryl Rey MDREPT SERVICE DT/TIME: 11/11/23 1310 * ALL edits or amendments must be made on the electronic/computer document * SubjectiveChief complaint:shortness of breathHPI:This is a 52-year-old morbidly obese male who was transferred from an outside facility. Patient was recently admitted at [facility] from October 27 through November 05 with [...] moves all, no clubbing, no cyanosis, no edemaNeuro/CASINO RUNNER: alert, oriented X 3 ResultsFindings/data:Laboratory Tests 11/10 [...] % (Auto) (25.0 - 55.0 %) 26.0 [place] % (Auto) (0.0 - 10.0 %) 9.8 Eos % (Auto) (0.0 - 5.0 %) 2.3 Baso % (Auto) (0.0 - 1.0 %) 1.2 H Neut # (Auto) (1.8 - 7.7 K/mm3) 3.08 Lymph # (Auto) (1.0 - 5.0 K/mm3) 1.33 [place] # (Auto) (0 - 0.8 K/mm3) 0.50 [...] Laboratory Tests 11/11/23 0044:[Embedded Image Not Available]Microbiology:11/10 1736 BLOOD: Blood Culture - RECD101/11 1736 BLOOD: Blood Culture - RECD101/11 1457 NASAL: MRSA Screen - UNV Xyfphgk29/12 1457 BLOOD: Blood Culture - RECD101/11 1457 BLOOD: Blood Culture - RECD101/11 1400 NASAL: MRSA Screen - CAN Cancelled: Duplicate order, test already ordered. Spec #:[id number] Diagnosis, Assessment PlanFree text A P:History of Present Illness:This is a 52-year-old morbidly obese male who was transferred from an outside facility. Patient was recently admitted at [facility] from October 27 through November 05 with [...] kin: TBD- Code status: Full code- Disposition: [facility] Critical care time: 40 minutes, excluding [...] best of my knowledge. at 1345 RPT #:[id number] OF REPORTPRProgress sghx3076-61-48H10:10:00V.[id number] AVAvailable for patient lfkvXEBUXXFLWYQTJA7450-21-70M90:45: 55 [facility] 2023-11-11 09:01:00 [id number] wgIOYeOjFNIRPRB vdH4AFMjzN8uPvYJv+0u3TiCElQcAs629oy VkWsqF4925-82-39C45:01:053668-6413 [facility] PATIENT NAME: LEANDRO LEHMAN ADMIT DATE: 11/10/23ACCOUNT NO: [id number] ROOM NO: S19 AGE: 52 REPORT TYPE: eECHOCARDIOGRAM REPORT SEX: M DATE OF : [birth year]ADMITTING PHYSICIAN:Jeremias Ibarra MD ATTENDING PHYSICIAN:Jeremias Ibarra MD *[facility]*[address] [place] [address] 80171Zbeabne Transthoracic Echocardiogram Patient: Tegan Lehmanudy Date: 3BP:URN: [id number]: [id number]#: [id number]: 1970Age: 52Gender: MHeight: 67 in / 170.2 cmWeight: 253.5 lb / 115 kgBMI/BSA: 39.7 kg/m 2 / 2.39 m 2*Ordering Physician: * Meryl Rey *Interpreting Physician: * Judy Grey MD*Order Worker: * Donovan Rudd Than --------Indications: Hypotensive. --------Study data: Transthoracic echocardiogram. Complete 2D, complete spectralDoppler, and color Doppler. Location: Bedside. Patient status: Inpatient.Patient room number: s19. Study status: Stat. --------Findings Left ventricle: The cavity size is normal. Wall thickness is mildlyincreased. Systolic function is normal. The estimated ejection fraction is55-60%. Although no diagnostic regional wall motion abnormality is identified,this possibility cannot be completely excluded on the basis of this study.Grade I diastolic dysfunction.Right ventricle: The cavity size is normal. Systolic function is normal.Left atrium: The atrium is normal in size. PATIENT NAME: LEANDRO LEHMAN Right atrium: The atrium is normal [...] veins:Inferior vena cava: The IVC is normal-sized. --------Measurements Left ventricle Value Ref TERRENCE, LAX 4.6 [...] sep, MM 2.08 cm --------- PATIENT NAME: LEANDRO LEHMAN Peak v, S 1.9 m/sec --------- [...] Ref Estimated CVP 3 mm Hg --------- --------Conclusions Summary: Left ventricle: The cavity size is normal. Wall thickness is mildlyincreased. Systolic function is normal. The estimated ejection fraction is55-60%. Although no diagnostic regional wall motion abnormality is identified,this possibility cannot be completely excluded on the basis of this study.Grade I diastolic dysfunction.Electronically signed by Judy Grey MD11/11/2023 09:01 at 0901 PATIENT NAME: LEANDRO LEHMAN -12-13T09:01:00V.[id number] Available for patient krrlVGQKJYJIAFQLAR6725-58-61Z73:01: 37 [facility] 2023-11-11 08:15:00 [id number] xlm5LLYhFQwcVMG bshw6RkDG0EHjcLMQ7xYN57bSFGIqlChutn C8mJyR4553-33-14C44:15:00 [facility] ([facility]ritical Care Progress NoteREPORT#:[id number] REPORT STATUS: SignedREPORT INITIALIZATION DATE:11/11/23 TIME: 814 PATIENT: LEANDRO LEHMAN UNIT #: [id number]#: [id number] [facility] AGE: 52 SEX: M ATTEND: Lindsey Coyle AUTHOR: Meryl Rey MDREPT SERVICE DT/TIME: 11/11/2315 * ALL edits or amendments must be made on the electronic/computer document * SubjectiveChief complaint:shortness of breathHPI:This is a 52-year-old morbidly obese male who was transferred from an outside facility. Patient was recently admitted at [facility] from October 27 through November 05 with [...] Pulse 122 11/11 515 Resp 35 11/11 05 O2 Delivery Non rebreather mask 11/11 0400 O2 Flow Rate 15 11/11 0400 Temp 99.5 11/11 0400 FiO2 80 11/11 0240 24 hour I [...] moves all, no clubbing, no cyanosis, no edemaNeuro/CASINO RUNNER: alert, oriented X 3 ResultsFindings/data:Laboratory Tests 11/10 [...] (Auto) (25.0 - 55.0 %) 26.0 27.0 [place] % (Auto) (0.0 - 10.0 %) 9.8 9.0 Eos % (Auto) (0.0 - 5.0 %) 2.3 2.0 Baso % (Auto) (0.0 - 1.0 %) 1.2 H 0.6 Neut # (Auto) (1.8 - 7.7 K/mm3) 3.08 4.28 Lymph # (Auto) (1.0 - 5.0 K/mm3) 1.33 1.90 [place] # (Auto) (0 - 0.8 K/mm3) 0.50 [...] pH (5.0 - 8.0) 5.0 Ur Specific Delta (1.001 - 1.035) 1.007 Urine Protein (NEGATIVE [...] Not Available] 11/10/23 1123:[Embedded Image Not Available]Microbiology:11/10 1736 BLOOD: Blood Culture - RECD101/11 1736 BLOOD: [...] outside facility. Patient was recently admitted at [facility] from October 27 through November 05 with [...] best of my knowledge. at 1606 RPT #:[id number] OF REPORTPRProgress qcmy0214-34-09U89:15:00V.SXJM310478 13-0123AVAvailable for patient awmpKOTTIKHNYJEYXF1925-00-69G60:07: 24 [facility] 2023-11-10 13:22:00 [id number] UDKNIUsl/EjBQXm +q3fps/4l9wiDuHM3Sw/85nNPR/KpNITpgd j8UzTh2263-98-04J67:22:00 [facility] ([facility])Hospitalist History PhysicalREPORT#:[id number] REPORT STATUS: SignedREPORT INITIALIZATION DATE:11/10/23 TIME: 1321 PATIENT: LEANDRO LEHMAN UNIT #: [id number]#: [id number] [facility] AGE: 52 SEX: M ATTEND: Jeremias [...] was transferred from an outside facility to [facility]. Patient states he had a fall at home today and so he was taken to theemergency room where he complained of shortness of breath. He denies any fever or chills. He reports cough, nausea, and vomiting. External record: Patient was recently admitted at [facility] from October 27 through November 05 with [...] % (Auto) (25.0 - 55.0 %) 27.0 [place] % (Auto) (0.0 - 10.0 %) 9.0 Eos % (Auto) (0.0 - 5.0 %) 2.0 Baso % (Auto) (0.0 - 1.0 %) 0.6 Neut # (Auto) (1.8 - 7.7 K/mm3) 4.28 Lymph # (Auto) (1.0 - 5.0 K/mm3) 1.90 [place] # (Auto) (0 - 0.8 K/mm3) 0.63 Eos # (Auto) (0.0 - 0.5 K/mm3) 0.14 Baso # (Auto) (0.0 - 0.2 K/mm3) 0.04 Nucleated RBC % (0 - 0 %) 0.0 Nucleated RBCs # (Man) (0.0 - 0.1 K/mm3) 0.00 Urines Urine Color (YELLOW) Light-Yellow Urine Appearance (CLEAR) CLEAR Urine pH (5.0 - 8.0) 5.0 Ur Specific Delta (1.001 - 1.035) 1.007 Urine Protein (NEGATIVE [...] IMPRESSION: Patchy left interstitial infiltrate.Impression By: MatthewTH4 - Arnaud Duggan M.D. Free Text PE NotesFree Text [...] range of motion, no CVA tenderness,no muscle spasmNeuro/CASINO RUNNER: alert, oriented X 3, CNII-XII intact, normal [...] mg every 8 hours #Acute renal failureSuspect PRATEEK versus CKD stage IIIaAvoid nephrotoxic #Diabetes mellitus type 2Check hgb U0Whapgbib checks AC and HSsliding scale insulin #HypertensionIV [...] remains on Levophed drip- at 1645 RPT #:[id number] OF REPORTHPHistory and physical xekzfytgfkr2726-67-80W74:22:00V.PDO Y92395584-6421FLLqrqvlpzx for patient ishhGDTQTQDRHZCQLX7945-13-00E10:44: 59 [facility] 2023-11-10 11:32:00 [id number] T7w93KSpUyiKAzY XWDiij60//jePwbbXgjvagRLlLo0kUtYX6J 42+7Kp3892-16-28G43:32:00 [facility] ([facility])Critical Care Consult NoteREPORT#:[id number] REPORT STATUS: SignedREPORT INITIALIZATION DATE:11/10/23 TIME: 1131 PATIENT: LEANDRO LEHMAN UNIT #: [id number]#: [id number] [facility] AGE: 52 SEX: M ATTEND: Jeremias Ibarra MDADM AUTHOR: Meryl Rey MDREPT SERVICE DT/TIME: 11/10/23 1132 * ALL edits or amendments must be made on the electronic/computer document * History of Present Illness HPIReason for consult:respiratory failureChief complaint:shortness of breathPCP:PCP: Sang Rey MD HPI:This is a 52-year-old morbidly obese male who was transferred from an outside facility. Patient was recently admitted at [facility] from October 27 through November 05 with [...] outside facility. Patient was recently admitted at [facility] from October 27 through November 05 with [...] consultants and admitting teams. at 1407 RPT #:[id number] OF REPORTSJNqyojluciflg1517-39-28B0 1:32:00V.AAUK62938289-6031EZMqakthk le for patient ozabSAVXVLCAHWPHAH1943-02-51R58:08: 25 [facility] 2022-09-24 09:36:00 [id number] 9drL6oS+Wt78S1O r7gM0cXzZk9IVTQmWUpMlkf8+x80lPVbwKu TSZpKe1997-16-75W68:36:156079-8982 [facility] [address] [place] [address] PATIENT NAME: LEANDRO LEHMAN ADMIT DATE: 09/24/22ACCOUNT NO: [id number] ROOM NO: AGE: 51 REPORT TYPE: OPERATIVE [...] MD Date Dictated: 09/24/2022 09:36:29 PATIENT NAME: LEANDRO LEHMAN Date Transcribed: 09/24/2022 16:12:19VAPawel/Mamie #: [id number] ID: [id number] by Lukasz Saul MD On 10/01/2022 09:00:16 AM at 0900 PATIENT NAME: LEANDRO LEHMAN axqxvr7252-59-54G00:12:00L.MME11054 026-0034AVAvailable for patient juzjUVIRYSIKPPMOPT4121-24-06K65:00: 46 [facility]
[2024-03-02 18:26] LABS: Absolute Basophils 0.2 K/uL (0-0.5); Absolute Eosinophils 0.2 K/uL (0-0.5); Absolute Lymphocytes (CBC) 2.6 K/uL (0.7-4.9); Absolute Monocytes 0.9 K/uL (0.1-1.3); Absolute Neutrophil 3.2 K/uL (1.8-8.0); Basophils % 2.7 % (0-1.3); Eosinophils % 3.1 % (0-4.4); Hematocrit 42.5 % (39.6-49.0); Hemoglobin 14.2 g/dL (13.6-17.9); Lymphocytes % 36.6 % (15.3-44.8); MCH 28.5 pg (27.0-35.0); MCHC 33.5 g/dL (32.0-36.0); MCV 85.3 fL (80-100); MPV 7.1 fL (7.6-11.3); Monocytes % 12.2 % (3.3-12.3); Neutrophils % 45.4 % (41.7-73.7); Nucleated Red Blood Cells % 0.2 % (0-0); Platelets 371 thou/uL (152-406); RBC Red Blood Cell Count 4.99 M/uL (4.33-5.43); Red Cell Distribution Width 13.5 % (12.1-15.2)
[2024-03-02 18:42] LABS: Albumin 3.1 g/dL (3.4-5.0); Albumin/Globulin Ratio 0.7 (1.1-1.8); Bilirubin Total 0.9 mg/dL (0.2-1.0); Globulin 4.6 g/dL (2.3-3.5); Protein, Total 7.7 g/dL (6.4-8.2)
[2024-03-02] MEDS ORDERED: ONDANSETRON 4 MG/2 ML VIAL ONE ×2 (18:43→19:51)
[2024-03-02] MEDS ORDERED: NA CHLORIDE 0.9% 2,000 ML ONE (18:43)
--- NOTE | 2024-03-02 18:46 | RAD REPORT ---
EXAM DESCRIPTION: RADChest Single View03/02/2024 6:26 pm CLINICAL HISTORY: DYSPNEA COMPARISON: Chest Single View dated 02/16/2024; Chest Single View dated 11/10/2023; Chest Single View dated 11/10/2023; Chest Single View dated 10/31/2023 TECHNIQUE: Portable AP view of the chest. FINDINGS: The lungs are clear. No pneumothorax or effusion. The cardiomediastinal contours are unre markable. IMPRESSION: No acute cardiopulmonary process.
--- NOTE | 2024-03-02 19:09 | ER ---
Nurse's Notes [facility] Name: Leandro Rand Age: 53 yrs Sex: Male : 1970 Arrival Date: 03/02/2024 Time: 17:34 Bed 15 Private MD: Diagnosis: Vomiting;Gastroparesis;Dehydration;Weakness;Type 2 diabetes mellitus with hyperglycemia;Obesity, unspecified;Acute kidney failure, unspecified Presentation: 03/02 17:39 Chief complaint: Patient states: "I was recently admitted to [facility] for dehydration and mb9 just got out Thursday. I haven't been able to stop feeling nauseous and vomiting and now I'm weak". Coronavirus screen: Vaccine status: Patient reports receiving the 2nd dose of the covid vaccine. Ebola Screen: No symptoms or risks identified at this time. Initial Sepsis Screen: Does the patient meet any 2 criteria? No. Patient's initial sepsis screen is negative. Does the patient have a suspected source of infection? No. Patient's initial sepsis screen is negative. Risk Assessment: Do you want to hurt yourself or someone else? Patient reports no desire to harm self or others. Onset of symptoms was March 02, 2024. 17:39 Acuity: FELI 3 mb9 17:39 Method Of Arrival: Ambulatory mb9 Triage Assessment: 17:41 General: Appears ill, Behavior is calm, cooperative. Pain: Complains of pain in back. mb9 GI: Pt is actively vomiting Reports nausea, vomiting. Historical: - Allergies: 17:40 Segluromet; mb9 17:40 Synjardy; mb9 17:40 XIGDUO; mb9 - PMHx: 17:40 Congestive heart failure; Diabetes - IDDM; Diabetes - NIDDM; Home Oxygen (Left first mb9 finger a); Hyperlipidemia; COVID-19; Myocardial infarction; lung failure; - PSHx: 17:40 heart cath; Left first finger amputation; mb9 - Immunization history:: Adult Immunizations up to date. - Infectious Disease History:: Denies. - Social history:: Smoking status: Patient denies any tobacco usage or history of. Screenin:00 [facility] ED Fall Risk Assessment (Adult) History of falling in the last 3 months, rv including since admission Yes- single mechanical fall (1 pt) Score/Fall Risk Level 0 - 2 = Low Risk Oriented to surroundings, Maintained a safe environment, Educated pt \\T\\ family on fall prevention, incl call for assistance when getting out of bed, Assessed \\T\\ reinforced patient's understanding of fall precautions. Abuse screen: Denies threats or abuse. Denies injuries from another. Nutritional screening: No deficits noted. Tuberculosis screening: No symptoms or risk factors identified. Assessment: 19:00 General: Appears uncomfortable, Behavior is calm, cooperative. rv 19:00 Pain: Denies pain. Neuro: Level of Consciousness is awake, alert, obeys commands, rv Oriented to person, place, time, situation. Cardiovascular: Capillary refill < 3 seconds Patient's skin is warm and dry. Respiratory: Airway is patent Respiratory effort is even, unlabored. GI: Abdomen is round non-distended. : No signs and/or symptoms were reported regarding the genitourinary system. Derm: Skin is intact. Vital Signs: 17:39 Resp 18; Temp 97.5(O); Pulse Ox 96% ; Weight 104.33 kg; Height 5 ft. 7 in. ; mb9 17:41 BP 100 / 69; Pulse 114; mb9 22:37 BP 122 / 66; Pulse 108; Resp 18; Pulse Ox 97% on 2 lpm NC; rv 17:39 Body Mass Index 36.02 (104.33 kg, 170.18 cm) mb9 ED Course: 17:36 Patient arrived in ED. im 17:39 Arm band placed on. mb9 17:40 Triage completed. mb9 18:03 Cholo Sutton MD is Attending Physician. pricilla 18:21 Troponin High Sensitivity Sent. mb9 18:21 CBC with Diff Sent. mb9 18:21 CMP Sent. mb9 18:21 Lipase Sent. mb9 18:21 Initial lab(s) drawn, by me, sent to lab. EKG done, by ED staff, reviewed by Cholo Sutton MD. Inserted saline lock: 22 gauge in right forearm, using aseptic technique. 18:28 Chest Single View XRAY In Process Unspecified. EDMS 18:31 Gm Morillo, MARILU is Primary Nurse. bp 18:32 Lipase Sent. bp 18:32 CMP Sent. bp 19:00 Patient has correct armband on for positive identification. Client placed on continuous rv cardiac and pulse oximetry monitoring. NIBP monitoring applied. 19:00 No provider procedures requiring assistance completed. rv 19:07 Jr Schneider MD is Hospitalizing Provider. pricilla 19:34 CT Chest Abdomen Pelvis W/O Contrast In Process Unspecified. EDMS 22:40 Patient admitted, IV remains in place. rv Administered Medications: 18:58 Drug: Ondansetron IVP 4 mg IVP once; over 2 minutes Route: IVP; Site: right forearm; bp 20:18 Follow up: Response: No adverse reaction rv 18:58 Drug: NS 0.9% IV 1000 ml IV at 1000 ml once Route: IV; Rate: 1000 ml; Site: right bp forearm; 20:18 Follow up: IV Status: Completed infusion; IV Intake: 1000ml rv 18:58 Drug: NS 0.9% IV 1000 ml IV at 1 bolus Per protocol; 1000 mL bolus Route: IV; Rate: 1 bp bolus; Site: right forearm; 22:38 Follow up: IV Status: Completed infusion; IV Intake: 1000ml rv 20:00 Drug: Ondansetron IVP 4 mg IVP once; over 2 minutes Route: IVP; Site: right antecubital;rv 22:38 Follow up: Response: No adverse reaction; Marked relief of symptoms rv 20:18 Drug: Potassium PO Effervescent Tablet 50 mEq PO once; dissolve in 4 ounces of water or rv juice Route: PO; 22:38 Follow up: Response: No adverse reaction rv 21:05 Drug: morphine IVP or IV 2 mg IVP once over 4 mins Route: IVP; Infused Over: 4 mins; rv Site: right forearm; 22:38 Follow up: Response: No adverse reaction; Marked relief of symptoms rv Medication: 19:00 VIS not applicable for this client. rv Intake: 20:18 IV: 1000ml; Total: 1000ml. rv 22:38 IV: 1000ml; Total: 2000ml. rv Outcome: 19:08 Decision to Hospitalize by Provider. pricilla 22:40 Admitted to ER Hold. Please see [facility] for further documentation. rv 22:40 Condition: stable 22:40 Instructed on the need for admit, 03/03 01:00 Patient left the ED. rv Signatures: Dispatcher [employer] EDMA Cholo Sutton MD MD cha Peltier, Brian RN RN Sameer Rahman RN RN Larissa Sherman RN RN mb9 Montserrat Rodriguez im
--- NOTE | 2024-03-02 19:09 | EDPHYS ---
Physician Documentation [facility] Name: Leandro Rand Age: 53 yrs Sex: Male : 1970 Arrival Date: 03/02/2024 Time: 17:34 Bed 15 Private MD: ED Physician Cholo Sutton HPI: 03/02 19:00 This 53 yrs old Male presents to ER via Ambulatory with complaints of pricilla Vomiting, Weakness. 19:00 The patient presents to the emergency department with nausea, that is mild, that is pricilla moderate, vomiting, that is continuous. Onset: The symptoms/episode began/occurred 2 day(s) ago. Possible causes: unknown, flare up of bowel problem. The symptoms are aggravated by food , The symptoms are alleviated by nothing. remaining still. Associated signs and symptoms: Pertinent positives: abdominal pain, nausea, vomiting. Severity of symptoms: At their worst the symptoms were mild moderate in the emergency department the symptoms are unchanged. The patient has experienced similar episodes in the past, several times. Historical: - Allergies: 17:40 Segluromet; mb9 17:40 Synjardy; mb9 17:40 XIGDUO; mb9 - PMHx: 17:40 Congestive heart failure; Diabetes - IDDM; Diabetes - NIDDM; Home Oxygen (Left first mb9 finger a); Hyperlipidemia; COVID-19; Myocardial infarction; lung failure; - PSHx: 17:40 heart cath; Left first finger amputation; mb9 - Immunization history:: Adult Immunizations up to date. - Infectious Disease History:: Denies. - Social history:: Smoking status: Patient denies any tobacco usage or history of. ROS: 19:03 Constitutional: Negative for fever, chills, and weight loss, Eyes: Negative for injury, pricilla pain, redness, and discharge, ENT: Negative for injury, pain, and discharge, Neck: Negative for injury, pain, and swelling, Respiratory: Negative for shortness of breath, cough, wheezing, and pleuritic chest pain, Back: Negative for injury and pain, : Negative for injury, bleeding, discharge, and swelling, MS/Extremity: Negative for injury and deformity, Skin: Negative for injury, rash, and discoloration, Neuro: Negative for headache, weakness, numbness, tingling, and seizure, Psych: Negative for depression, anxiety, suicide ideation, homicidal ideation, and hallucinations, Allergy/Immunology: Negative for hives, rash, and allergies, Endocrine: Negative for neck swelling, polydipsia, polyuria, polyphagia, and marked weight changes, Hematologic/Lymphatic: Negative for swollen nodes, abnormal bleeding, and unusual bruising, 19:03 Cardiovascular: Positive for palpitations, 19:03 Abdomen/GI: Positive for abdominal pain, nausea and vomiting, abdominal cramps, abdominal distension, Exam: 19:03 Constitutional: This is a well developed, well nourished patient who is awake, alert, pricilla and in no acute distress. Head/Face: Normocephalic, atraumatic. Eyes: Pupils equal round and reactive to light, extra-ocular motions intact. Lids and lashes normal. Conjunctiva and sclera are non-icteric and not injected. Cornea within normal limits. Periorbital areas with no swelling, redness, or edema. ENT: Nares patent. No nasal discharge, no septal abnormalities noted. Tympanic membranes are normal and external auditory canals are clear. Oropharynx with no redness, swelling, or masses, exudates, or evidence of obstruction, uvula midline. Mucous membranes moist. Neck: Trachea midline, no thyromegaly or masses palpated, and no cervical lymphadenopathy. Supple, full range of motion without nuchal rigidity, or vertebral point tenderness. No Meningismus. Chest/axilla: Normal chest wall appearance and motion. Nontender with no deformity. No lesions are appreciated. Respiratory: Lungs have equal breath sounds bilaterally, clear to auscultation and percussion. No rales, rhonchi or wheezes noted. No increased work of breathing, no retractions or nasal flaring. Back: No spinal tenderness. No costovertebral tenderness. Full range of motion. Male : Normal genitalia with no discharge or lesions. Skin: Warm, dry with normal turgor. Normal color with no rashes, no lesions, and no evidence of cellulitis. MS/ Extremity: Pulses equal, no cyanosis. Neurovascular intact. Full, normal range of motion. Neuro: Awake and alert, GCS 15, oriented to person, place, time, and situation. Cranial nerves II-XII grossly intact. Motor strength 5/5 in all extremities. Sensory grossly intact. Cerebellar exam normal. Normal gait. Psych: Awake, alert, with orientation to person, place and time. Behavior, mood, and affect are within normal limits. 19:03 Cardiovascular: Rate: tachycardic, actual rate is 114 bpm, Rhythm: regular, Pulses: Pulses are 4+ in bilateral radial, brachial, femoral, popliteal, posterior tibial and and dorsalis pedis arteries.. Heart sounds: normal, Edema: is not appreciated, JVD: is not appreciated, 19:03 ECG was reviewed by the Attending Physician. Vital Signs: 17:39 Resp 18; Temp 97.5(O); Pulse Ox 96% ; Weight 104.33 kg; Height 5 ft. 7 in. ; mb9 17:41 BP 100 / 69; Pulse 114; mb9 22:37 BP 122 / 66; Pulse 108; Resp 18; Pulse Ox 97% on 2 lpm NC; rv 17:39 Body Mass Index 36.02 (104.33 kg, 170.18 cm) mb9 MDM: 18:04 Patient medically screened. pricilla 19:05 Differential diagnosis: Nonspecific abd pain, gastritis, cholecystitis, pancreatitis, pricilla appendicitis, viral gastroenteritis, gastroenteritis, coronary artery disease, cholecystitis, Cholelithiasis, diverticulitis, gastritis, gastroesophageal reflux disease, GI Bleed, Hepatitis. Differential Diagnosis sepsis. Data reviewed: vital signs, nurses notes, lab test result(s), EKG, radiologic studies, CT scan, plain films. Consideration of Admission/Observation Patient was admitted/placed on observation. Escalation of care including admission/observation considered. I considered the following discharge prescriptions or medication management in the emergency department Medications were administered in the Emergency Department. See MAR. Independent interpretation of the following test(s) in the Emergency Department EKG: See my EKG interpretation above. Test considered but Not performed: Ultrasound NO ABD USG. Care significantly affected by the following chronic conditions: Diabetes, Hypertension, Congestive Heart Failure, Obesity, LUNG FAILURE. 03/02 17:50 Order name: CBC with Diff; Complete Time: 19:09 ms3 03/02 17:50 Order name: CMP; Complete Time: 19:09 ms3 03/02 17:50 Order name: Lipase; Complete Time: 19:09 ms3 03/02 18:05 Order name: Troponin High Sensitivity; Complete Time: 19:09 pricilla 03/02 21:28 Order name: Urinalysis w/ reflexes EDMS 04/03 21:28 Order name: CBC with Automated Diff EDMS 03/02 21:28 Order name: CBC with Automated Diff EDMS 03/02 21:28 Order name: Comprehensive Metabolic Panel EDCA 03/02 21:28 Order name: Comprehensive Metabolic Panel EDCA 03/02 18:06 Order name: Chest Single View XRAY; Complete Time: 19:09 [facility] 03/02 18:39 Order name: CT Chest Abdomen Pelvis W/O Contrast; Complete Time: 20:32 [facility] 03/02 18:05 Order name: EKG; Complete Time: 18:05 [facility] 03/02 21:28 Order name: CONS Physician Consult EDCA 03/02 17:50 Order name: IV Saline Lock; Complete Time: 18:21 ms3 03/02 17:50 Order name: Labs collected and sent; Complete Time: 18:21 ms3 03/02 18:05 Order name: EKG - Nurse/Tech; Complete Time: 18:32 [facility] EC:03 Rate is 107 beats/min. Rhythm is regular. QRS [place] is Normal. [place] interval is normal. pricilla QRS interval is normal. QT interval is normal. No Q waves. T waves are Normal. No ST changes noted. Clinical impression: Sinus tachycardia and No evidence of ischemia. Interpreted by me. Reviewed by me. Administered Medications: 18:58 Drug: Ondansetron IVP 4 mg IVP once; over 2 minutes Route: IVP; Site: right forearm; bp 20:18 Follow up: Response: No adverse reaction rv 18:58 Drug: NS 0.9% IV 1000 ml IV at 1000 ml once Route: IV; Rate: 1000 ml; Site: right bp forearm; 20:18 Follow up: IV Status: Completed infusion; IV Intake: 1000ml rv 18:58 Drug: NS 0.9% IV 1000 ml IV at 1 bolus Per protocol; 1000 mL bolus Route: IV; Rate: 1 bp bolus; Site: right forearm; 22:38 Follow up: IV Status: Completed infusion; IV Intake: 1000ml rv 20:00 Drug: Ondansetron IVP 4 mg IVP once; over 2 minutes Route: IVP; Site: right antecubital;rv 22:38 Follow up: Response: No adverse reaction; Marked relief of symptoms rv 20:18 Drug: Potassium PO Effervescent Tablet 50 mEq PO once; dissolve in 4 ounces of water or rv juice Route: PO; 22:38 Follow up: Response: No adverse reaction rv 21:05 Drug: morphine IVP or IV 2 mg IVP once over 4 mins Route: IVP; Infused Over: 4 mins; rv Site: right forearm; 22:38 Follow up: Response: No adverse reaction; Marked relief of symptoms rv Disposition Summary: 03/02/24 19:08 Hospitalization Ordered Notes: Provider: Jr Schneider cha Condition: Stable pricilla Problem: new pricilla Symptoms: have improved pricilla Bed/Room Type: Standard pricilla Hospitalization Status: Inpatient Admission(03/02/24 19:11) pricilla Location: Telemetry/MedSurg (observation)(03/03/24 00:18) cm10 Room Assignment: [facility](03/03/24 00:18) cm10 Diagnosis - Vomiting pricilla - Gastroparesis pricilla - Dehydration pricilla - Weakness pricilla - Type 2 diabetes mellitus with hyperglycemia pricilla - Obesity, unspecified pricilla - Acute kidney failure, unspecified pricilla Forms: - Medication Reconciliation Form pricilla - SBAR form pricilla - Leadership Thank You Letter pricilla Signatures: Dispatcher [employer] EDMS Cholo Sutton MD MD cha Peltier, Brian, RN RN bp Sameer Cortes RN RN rv Oral Cano DO DO ms3 Larissa Cruz, RN RN mb9 Maritza Rivera rv1 Leah Bazzi, MARILU RN cm10 Corrections: (The following items were deleted from the chart) 17:51 17:51 CBC+H.LAB.BRZ ordered. EDMS EDMS 17:51 17:51 COMPREHENSIVE METABOLIC PANEL+C.LAB.BRZ ordered. EDMS EDMS 17:51 17:51 LIPASE+C.LAB.BRZ ordered. EDMS EDMS 19:11 19:08 Observation pricilla pricilla 20:53 19:08 Telemetry/MedSurg (Inpatient) pricilla rv1 20:53 19:08 pricilla rv1 03/03 00:18 0403 20:53 [facility] ER HOLD rv1 cm10 03/03 00:18 0403 20:53 ERHOLD- rv1 cm10
--- NOTE | 2024-03-02 19:36 | P.HP ---
Certification for Inpatient Patient admitted to: Inpatient With expected LOS: >2 Midnights Practitioner: I am a practitioner with admitting privileges, knowledge of patient current condition, hospital course, and medical plan of care. Services: Services provided to patient in accordance with Admission requirements found in Title 42 Section 412.3 of the Code of Federal Regulations Patient History Date of Service: 03/02/24 Reason for admission: Intractable nausea and vomiting History of Present Illness: 53 yrs old Male with past medical history of diabetes mellitus, hypertension, hyperlipidemia, CAD, congestive heart failure, history of COVID- 19, who had recurrent episodes of intractable nausea and vomiting and could not tolerate anything by mouth has been seen previously here as well as [facility] and was diagnosed with gastroparesis. Patient has been doing okay but for the last 2 days he has been has a recurrence of symptoms with intractable nausea and vomiting. No fever or chills. No sick contacts. Also associated with abdominal discomfort and back pain. Has bilious vomiting. Patient is a poor historian hence most of the history is obtained from the chart review and also talking to the family member at the bedside. Patient was assessed in the ER and was found to have acute kidney injury and dehydration along with intractable nausea and vomiting. CT did not show any acute changes Patient is being admitted for further management; Allergies No Known Allergies Allergy (Verified 01/08/21 02:35) Home medications list reviewed: Yes Home Medications: Atorvastatin Calcium 20 mg PO BEDTIME 02/22/22 Insulin Glargine,Hum.rec.anlog [Lantus] 50 units SQ BID 02/22/22 Pantoprazole [Protonix Tab*] 40 mg PO BID 02/22/22 Metoprolol Tartrate [Lopressor*] 50 mg PO BID #60 tab 02/23/22 Nebulizer Accessories [Aeroneb Go] 1 each MC DAILY #1 each 02/23/22 Nebulizer [Aeroneb Go Nebulizer] 1 each MC DAILY #1 each 02/23/22 Potassium Chloride 20 meq PO DAILY #30 tab.er.prt 02/23/22 Spironolactone [Aldactone*] 25 mg PO BID #60 tab 02/23/22 Insulin -Regular Human [Novolin -R*] 30 unit SQ BIDWM 10/27/23 Metformin HCl [Glucophage*] 1,000 mg PO BIDWM 10/27/23 - Past Medical/Surgical History Diabetic: Yes Past Medical History: Reviewed- Non-Contributory -: Type 2 Diabetes- Insulin Dependent -: Acid reflux -: Hypertension -: Hyperlipidemia -: Coronavirus pneumonia long hospitalization Past Surgical History: Reviewed- Non-Contributory -: L pointer finger partial amputation Psychosocial/ Personal History: Patient lives at home with his . - Family History Mother -: Hypertension, Diabetes - Social History Smoking Status: Never smoker Alcohol use: No CD- Drugs: No Caffeine use: Yes Review of Systems 10-point ROS is otherwise unremarkable Physical Examination - Vital Signs Temperature: 98.4 F Blood Pressure: 138/76 Pulse: 78 Respirations: 18 Pulse Ox (%): 96 - Physical Exam General: Alert, Oriented x3, Mild distress, Obese HEENT: Atraumatic, Normocephalic Neck: Supple, JVD not distended Respiratory: Clear to auscultation bilaterally, Normal air movement Cardiovascular: Regular rate/rhythm, Normal S1 S2 Capillary refill: <2 Seconds Gastrointestinal: Soft and benign, W/out hepatosplenomegaly Musculoskeletal: No clubbing, Swelling Integumentary: No rashes, No breakdown Neurological: Normal speech, Normal strength at 5/5 x4 extr, Normal affect Lymphatics: No axilla or inguinal lymphadenopathy - Studies Laboratory Data (last 24 hrs) 03/02/24 03/02/24 18:20 18:20 WBC 7.10 Hgb 14.2 Hct 42.5 Plt Count 371 Sodium 130 L Potassium 3.0 L BUN 10 Creatinine 3.99 H Glucose 161 H Total Bilirubin 0.9 AST 64 H ALT 95 H Alkaline Phosphatase 108 Lipase 42 Imagings Data: FINDINGS: The lungs are clear apart from stable pattern of mild peripheral bilateral scarring most pronounced along the upper and mid lung zones, with subpleural sparing.No pleural or pericardial effusion.No intrathoracic adenopathy. The liver shows diffuse hepatic parenchymal hypoattenuation suggesting steatosis. Spleen, pancreas, adrenal glands and kidneys are within normal limits. No bowel obstruction, free air, free fluid or abscess. Hyperdense material layering within the gallbladder without evidence of mineralized calculi. Normal appendix. No pathologic lymphadenopathy in the abdomen or pelvis. No worrisome osseous finding. IMPRESSION: No acute process in the chest, abdomen, or pelvis. Stable mild peripheral bilateral symmetric pulmonary atelectasis or scarring. Hepatic steatosis. Gallbladder sludg Assessment and Plan - Problems (Diagnosis) (1) VIN (acute kidney injury) Current Visit: Yes Status: Acute Plan: Start on IV hydration Monitor electrolytes Monitor renal parameters Nephrology consulted Awaiting further recommendations (2) Gastroparesis Current Visit: Yes Status: Chronic Plan: Intractable nausea vomiting Patient has a history of gastroparesis Start on Reglan IV hydration CT findings noted (3) Hyperlipidemia Current Visit: No Status: Chronic Plan: Continue home medications and titrate as needed Qualifiers: Hyperlipidemia type: mixed hyperlipidemia Qualified Code(s): E78.2 - Mixed hyperlipidemia (4) Hypertension Current Visit: No Status: Chronic Plan: Continue home medications and titrate as needed Qualifiers: Hypertension type: primary hypertension Qualified Code(s): I10 - Essential (primary) hypertension (5) Morbid obesity due to excess calories Current Visit: No Status: Chronic Plan: Advise lifestyle modification (6) Type 2 diabetes mellitus Current Visit: No Status: Chronic Plan: Insulin sliding scale Continue basal insulin Discussed in detail with the patient and family regarding the tight control of sugar Hyponatremia Hypokalemia Electrolytes monitor and replace accordingly Monitor closely on telemetry LFTs elevated Will monitor LFTs in a.m. 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
[2024-03-02] MEDS ORDERED: POTASSIUM 25 MEQ EFFERV TAB ONE (19:51)
--- NOTE | 2024-03-02 20:29 | RAD REPORT ---
EXAM DESCRIPTION: CT - Chest Abd Pelvis Wo Con - 03/02/2024 7:33 pm CLINICAL HISTORY: ABDOMINAL DISTENTION COMPARISON: Chest For Pe Angio dated 10/25/2023; Chest For Pe Angio dated 02/20/2022 TECHNIQUE: Thin axial CT images of the chest, abdomen, and pelvis, performed following intravenous a dministration of iodinated contrast. Multiplanar reformats were generated and reviewed. All CT scans are performed using dose optimization technique as appropriate and may include automated exposure control or mA/KV adjustment according to patient size. FINDINGS: The lungs are clear apart from stable pattern of mild peripheral bilateral scarring most p ronounced along the upper and mid lung zones, with subpleural sparing.No pleural or pericardial effus ion.No intrathoracic adenopathy. The liver shows diffuse hepatic parenchymal hypoattenuation suggesting steatosis. Spleen, pancreas, a drenal glands and kidneys are within normal limits. No bowel obstruction, free air, free fluid or abscess. Hyperdense material layering within the gallbl adder without evidence of mineralized calculi. Normal appendix. No pathologic lymphadenopathy in the abdomen or pelvis. No worrisome osseous finding. IMPRESSION: No acute process in the chest, abdomen, or pelvis. Stable mild peripheral bilateral symmetric pulmonary atelectasis or scarring. Hepatic steatosis. Gallbladder sludge.
[2024-03-02] MEDS ORDERED: MORPHINE 2 MG/ML SYR ONE (21:04)
[2024-03-02] MEDS ORDERED: ACETAMINOPHEN 500 MG TAB PO PRN (21:22)
[2024-03-02] MEDS ORDERED: SODIUM CHLORIDE 0.9% 10ML INJ IV PRN (21:26)
[2024-03-02] MEDS: NA CHLORIDE 0.9% 1,000 ML IV SCH (22:00)
[2024-03-02] MEDS: METOCLOPRAMIDE 10 MG/2mL INJ IV SCH (22:00)
[2024-03-02] MEDS ORDERED: NA CHLORIDE 0.9% 1,000 ML ONE (22:27)
[2024-03-02] MEDS ORDERED: METOCLOPRAMIDE 10 MG/2mL INJ ONE (22:27)
[2024-03-02 23:41] VITALS: BMI 36.0
[2024-03-03] MEDS: HEPARIN 5000 UNIT/ML 1 ML VIAL SQ SCH (01:35)
[2024-03-03 06:00] LABS: Specific Gravity 1.007 (1.005-1.030); Sqamous Epithelial <5 /HPF (None Seen); Urine Bacteria <20 /HPF (<20); Urine Bilirubin NEGATIVE (Negative); Urine Blood Negative (Negative); Urine Clarity Extremely Turbid (Clear); Urine Color Light-Yellow (Yellow); Urine Culture Reflex Order NOT NEEDED; Urine Glucose TRACE (Negative); Urine Ketones 1+ (Negative); Urine Microscopic Reflex YN ORDER UMIC; Urine Mucus Slight /HPF (None Seen); Urine Nitrite NEGATIVE (Negative); Urine Protein NEGATIVE (Negative); Urine RBC <5 /HPF (None Seen); Urine Urobilinogen Normal (Normal); Urine WBC <5 /HPF (<5)
[2024-03-03 06:01] LABS: Absolute Eosinophils 0.2 K/uL (0-0.5); Absolute Lymphocytes (CBC) 2.3 K/uL (0.7-4.9); Absolute Monocytes 0.8 K/uL (0.1-1.3); Absolute Neutrophil 2.4 K/uL (1.8-8.0); Basophils % 0.2 % (0-1.3); Eosinophils % 3.8 % (0-4.4); Hematocrit 35.7 % (39.6-49.0); Hemoglobin 11.7 g/dL (13.6-17.9); Lymphocytes % 40.1 % (15.3-44.8); MCH 28.2 pg (27.0-35.0); MCHC 32.8 g/dL (32.0-36.0); MCV 86.1 fL (80-100); MPV 7.6 fL (7.6-11.3); Monocytes % 14.4 % (3.3-12.3); Neutrophils % 41.5 % (41.7-73.7); Nucleated Red Blood Cells % 0.3 % (0-0); Platelets 297 thou/uL (152-406); RBC Red Blood Cell Count 4.15 M/uL (4.33-5.43); Red Cell Distribution Width 13.1 % (12.1-15.2)
[2024-03-03 06:13] LABS: Phosphorus 2.8 mg/dL (2.5-4.9)
[2024-03-03 06:14] LABS: Magnesium 1.6 mg/dL (1.6-2.4)
[2024-03-03 06:20] LABS: Albumin 2.6 g/dL (3.4-5.0); Albumin/Globulin Ratio 0.8 (1.1-1.8); Anion Gap 12.9 mEq/L (5.0-15.0); Bilirubin Total 0.7 mg/dL (0.2-1.0); Globulin 3.3 g/dL (2.3-3.5); Protein, Total 5.9 g/dL (6.4-8.2)
[2024-03-03 06:21] LABS: Potassium 2.9 mEq/L (3.5-5.1)
[2024-03-03 07:18] LABS: Blood Morphology Comment NOT SEEN (NOT SEEN); Platelet Estimate ADEQ; White Blood Cell Scan OK (OK)
[2024-03-03] MEDS: INSULIN REGULAR (HUMAN) 100 UNIT/ML SQ SCH (07:30)
[2024-03-03] MEDS: INFLUENZA VACCINE (for 6+ mo) 0.5 ML DOSE IMVAC ONE (08:00)
[2024-03-03] MEDS: INSULIN GLARGINE 100 UNIT/ML SQ SCH (09:00)
[2024-03-03] MEDS: SPIRONOLACTONE 25 MG TABLET PO SCH (09:00)
[2024-03-03] MEDS: POTASSIUM CL SA 10 MEQ TAB PO ONE ×2 (09:05→13:17)
[2024-03-03] MEDS: MAGNESIUM SULFATE 1 gm IVPB 1 GM/100 ML BAG IV ONE (09:05)
[2024-03-03] MEDS: METOPROLOL TAR 50 MG TAB PO SCH (09:07)
[2024-03-03] MEDS: PANTOPRAZOLE 40 MG INJ IVP SCH (09:07)
--- NOTE | 2024-03-03 11:05 | P.CNS ---
Date of Consult: 03/03/24 Reason for Consult: VIN Requesting Physician: abril domínguez Chief Complaint: Intractable nausea and vomiting History of Present Illness: 53 yrs old Male with past medical history of diabetes mellitus, hypertension, hyperlipidemia, CAD, congestive heart failure, history of COVID- 19, who had recurrent episodes of intractable nausea and vomiting and could not tolerate anything by mouth has been seen previously here as well as [facility] and was diagnosed with gastroparesis. Patient has been doing okay but for the last 2 days he has been has a recurrence of symptoms with intractable nausea and vomiting. No fever or chills. No sick contacts. Also associated with abdominal discomfort and back pain. Has bilious vomiting. Patient is a poor historian hence most of the history is obtained from the chart review and also talking to the family member at the bedside. Patient was assessed in the ER and was found to have acute kidney injury and dehydration along with intractable nausea and vomiting. CT did not show any acute changes Patient is being admitted for further management; 19:00 This 53 yrs old Male presents to ER via Ambulatory with complaints of pricilla Vomiting, Weakness. 19:00 The patient presents to the emergency department with nausea, that is mild, that is pricilla moderate, vomiting, that is continuous. Onset: The symptoms/episode began/occurred 2 day(s) ago. Possible causes: unknown, flare up of bowel problem. The symptoms are aggravated by food , The symptoms are alleviated by nothing. remaining still. Associated signs and symptoms: Pertinent positives: abdominal pain, nausea, vomiting. Severity of symptoms: At their worst the symptoms were mild moderate in the emergency department the symptoms are unchanged. The patient has experienced similar episodes in the past, several times. Allergies No Known Allergies Allergy (Verified 01/08/21 02:35) Home medications list reviewed: Yes Home Medications: Atorvastatin Calcium 20 mg PO BEDTIME 02/22/22 Insulin Glargine,Hum.rec.anlog [Lantus] 50 units SQ BID 02/22/22 Pantoprazole [Protonix Tab*] 40 mg PO BID 02/22/22 Metoprolol Tartrate [Lopressor*] 50 mg PO BID #60 tab 02/23/22 Nebulizer Accessories [Aeroneb Go] 1 each MC DAILY #1 each 02/23/22 Nebulizer [Aeroneb Go Nebulizer] 1 each MC DAILY #1 each 02/23/22 Potassium Chloride 20 meq PO DAILY #30 tab.er.prt 02/23/22 Spironolactone [Aldactone*] 25 mg PO BID #60 tab 02/23/22 Insulin -Regular Human [Novolin -R*] 30 unit SQ BIDWM 10/27/23 Metformin HCl [Glucophage*] 1,000 mg PO BIDWM 10/27/23 - Past Medical/Surgical History Diabetic: Yes -: IDDM II -: GERD -: HTN -: HLD -: Coronavirus pneumonia long hospitalization -: L pointer finger partial amputation Psychosocial/ Personal History: Patient lives at home with his . - Family History Mother Medical History: Hypertension, Diabetes - Social History Smoking Status: Former smoker Alcohol use: No CD- Drugs: No Caffeine use: Yes Place of Residence: Home Review of Systems 10-point ROS is otherwise unremarkable General: Weakness, Malaise Respiratory: Cough Genitourinary: Dysuria Integumentary: Rash Physical Examination Temp Pulse Resp BP Pulse Ox 97.1 F 92 H 16 103/58 L 92 03/03/24 08:00 03/03/24 09:07 03/03/24 08:00 03/03/24 09:07 03/03/24 08:00 General: In no apparent distress, Oriented x3, Cooperative HEENT: Atraumatic Neck: Supple Respiratory: Clear to auscultation bilaterally, Normal air movement Cardiovascular: No edema, Regular rate/rhythm Gastrointestinal: Soft and benign, Non-distended, No guarding Musculoskeletal: No clubbing, No contractures Integumentary: No cyanosis, Rash(es) Neurological: Normal speech Laboratory Data (last 24 hrs) 03/02/24 03/02/24 18:20 18:20 WBC 7.10 Hgb 14.2 Hct 42.5 Plt Count 371 Sodium 130 L Potassium 3.0 L BUN 10 Creatinine 3.99 H Glucose 161 H Total Bilirubin 0.9 AST 64 H ALT 95 H Alkaline Phosphatase 108 Lipase 42 Imagings Data: EXAM DESCRIPTION: CT - Chest Abd Pelvis Wo Con - 03/02/2024 7:33 pm CLINICAL HISTORY: ABDOMINAL DISTENTION COMPARISON: Chest For Pe Angio dated 10/25/2023; Chest For Pe Angio dated 02/20/2022 TECHNIQUE: Thin axial CT images of the chest, abdomen, and pelvis, performed following intravenous administration of iodinated contrast. Multiplanar reformats were generated and reviewed. All CT scans are performed using dose optimization technique as appropriate and may include automated exposure control or mA/KV adjustment according to patient size. FINDINGS: The lungs are clear apart from stable pattern of mild peripheral bilateral scarring most pronounced along the upper and mid lung zones, with subpleural sparing.No pleural or pericardial effusion.No intrathoracic adenopathy. The liver shows diffuse hepatic parenchymal hypoattenuation suggesting steatosis . Spleen, pancreas, adrenal glands and kidneys are within normal limits. No bowel obstruction, free air, free fluid or abscess. Hyperdense material layering within the gallbladder without evidence of mineralized calculi. Normal appendix. No pathologic lymphadenopathy in the abdomen or pelvis. No worrisome osseous finding. IMPRESSION: No acute process in the chest, abdomen, or pelvis. Stable mild peripheral bilateral symmetric pulmonary atelectasis or scarring. Hepatic steatosis. Gallbladder sludge. EXAM DESCRIPTION: RADChest Single View03/02/2024 6:26 pm CLINICAL HISTORY: DYSPNEA COMPARISON: Chest Single View dated 02/16/2024; Chest Single View dated 11/10/2023; Chest Single View dated 11/10/2023; Chest Single View dated 10/31/2023 TECHNIQUE: Portable AP view of the chest. FINDINGS: The lungs are clear. No pneumothorax or effusion. The cardiomediastinal contours are unremarkable. IMPRESSION: No acute cardiopulmonary process. Conclusions/Impression: Stage III VIN in the setting of hypovolemia -Continue IVF Hyponatremia -Continue IVF with NS Hypokalemia -Replete as ordered DM II with Polyneuropathy & Gastroparesis -Continue Lantus -RISS -Continue Reglan Steatohepatitis -Low carb diet -Check Hep Panel Hypoalbuminemia -Encourage nutrition Anemia in chronic illness -Monitor H&H Hospitalist and ER notes reviewed Case reviewed with Dr. Robyn NASH Labs ordered Thank you kindly for the consultation
[2024-03-03] MEDS: DRISDOL (VITAMIN D=ERGOCALCIFEROL) 50000 UNIT CAP PO SCH (12:00)
[2024-03-03] MEDS: ONDANSETRON 4 MG/2 ML VIAL IV PRN (13:18)
[2024-03-03] MEDS: MORPHINE 2 MG/ML SYR IV PRN (13:31)
--- NOTE | 2024-03-03 16:50 | P.PN ---
Subjective Date of Service: 03/03/24 Chief Complaint: Intractable nausea and vomiting Patient reports nausea. He has only tolerated liquid diet. He reports low back pain, no abdominal pain. Physical Examination - Vital Signs Temperature: 98.2 F Blood Pressure: 108/49 Pulse: 76 Respirations: 14 Pulse Ox (%): 96 - Studies Laboratory Data (last 24 hrs) 03/02/24 03/02/24 18:20 18:20 WBC 7.10 Hgb 14.2 Hct 42.5 Plt Count 371 Sodium 130 L Potassium 3.0 L BUN 10 Creatinine 3.99 H Glucose 161 H Total Bilirubin 0.9 AST 64 H ALT 95 H Alkaline Phosphatase 108 Lipase 42 Assessment And Plan - Plan Physical examination General: Alert and oriented x3, NAD, obese. HEENT: Conjunctiva not pale, anicteric sclera Neck: Supple, no elevated JVD Heart: Heart sounds 1 and 2 normal, regular rhythm, normal rate, no pedal edema Lungs: Clear to auscultation bilaterally, adequate breath sounds bilaterally, no rhonchi or crackles. Abdomen: Obese abdomen, soft, nontender, normal bowel sounds. Extremities: No tenderness, no deformity Skin: Normal skin turgor, no rash, no nodules or ulcers. Neuro: No focal motor deficit. Normal speech. Psychiatry: Normal mood, no agitation. Assessment and plan VIN (acute kidney injury) Continue IV hydration Monitor electrolytes Monitor renal parameters Nephrology input appreciated. Gastroparesis Patient presented with intractable nausea vomiting Patient has a history of gastroparesis. He is tolerating clear liquid diet Continue Reglan IV hydration Hyperlipidemia Continue home medications and titrate as needed Hypertension Continue home medications and titrate as needed Morbid obesity due to excess calories Weight loss by diet and exercise recommended. Type 2 diabetes mellitus Current Visit: No Status: Chronic Plan: Aggressive blood sugar control with insulin sliding scale and basal insulin. Hyponatremia Hypokalemia Monitor electrolytes and replace accordingly LFTs elevated Likely related to hepatic steatosis. Patient also has gallbladder sludge. Monitor. DVT prophylaxis: Heparin SQ
[2024-03-03] MEDS: ATORVASTATIN 20 MG TAB PO SCH (21:10)
[2024-03-04 07:14] LABS: Albumin 2.4 g/dL (3.4-5.0); Albumin/Globulin Ratio 0.7 (1.1-1.8); Anion Gap 11.2 mEq/L (5.0-15.0); Bilirubin Total 0.7 mg/dL (0.2-1.0); Globulin 3.3 g/dL (2.3-3.5); Potassium 3.2 mEq/L (3.5-5.1); Protein, Total 5.7 g/dL (6.4-8.2); Uric Acid 6.6 mg/dL (3.5-7.2)
[2024-03-04 07:38] LABS: Specific Gravity 1.006 (1.005-1.030); Sqamous Epithelial None Seen /HPF (None Seen); Urine Bacteria None Seen /HPF (<20); Urine Bilirubin NEGATIVE (Negative); Urine Blood Negative (Negative); Urine Clarity Turbid (Clear); Urine Color Light-Yellow (Yellow); Urine Culture Reflex Order NOT NEEDED; Urine Glucose TRACE (Negative); Urine Ketones 1+ (Negative); Urine Micro Reflex YN NO BILL MICROSCOPIC; Urine Mucus Slight /HPF (None Seen); Urine Nitrite NEGATIVE (Negative); Urine Protein NEGATIVE (Negative); Urine RBC <5 /HPF (None Seen); Urine Urobilinogen Normal (Normal); Urine WBC <5 /HPF (<5); Urine pH 5.5 (5.0-7.0)
[2024-03-04 08:00] LABS: MA/CREAT RATIO 12.7 (< 30.0); UR MICROALBUMIN 0.9 mg/dL (< 1.9); UR PROTEIN 12.2 mg/dL (<11.9); Urine Protein/Creatinine Ratio 0.17 ratio (<0.15)
[2024-03-04 08:28] LABS: Hepatitis B surface AG Interp. Nonreactive (Nonreactive); Hepatitis C Virus Ab Nonreactive (Nonreactive)
[2024-03-04 08:29] LABS: Hepatitis B Surface Ab - Quant < 3.10 mIU/mL (<8.0)
[2024-03-04 08:30] LABS: HBsAG Nonreactive Report Report
[2024-03-04] MEDS: POTASSIUM CL SA 10 MEQ TAB PO ONE ×2 (09:39→16:45)
[2024-03-04] MEDS: NA CHLORIDE 0.9% 1,000 ML IV SCH (10:53)
--- NOTE | 2024-03-04 11:41 | P.PN ---
Nephrology note (S) Pt still citing some nausea, without vomiting, did not take in breakfast this AM, renal function tests improving. No dyspnea at rest but on chronic O2 per reports (O) vitals reviewed in the EMR NAD, non tachypnec, sclera anicteric, LFNC, b/l air entry without wheezing, RRR, soft, obese abdomen, NT. Mild distal edema. Awake, alert, non focal A/P) Stage III ARF in the setting of hypovolemia, relative hypotension, concurrent diuretics use -Renal function normalizing, prior VIN episodes. D/c IVF, pt reports able to keep up with PO fluid intake Hypokalemia -Cont to replete, no reports of hyperaldosteronism or secondary HTN, likely related to GI losse, poor intake DM II with Polyneuropathy & Gastroparesis -Management per IM Chronic dyspnea, edema unspecified -Prior TTE findings noted, lower Spironolactone dose on discharge and holding parameters given to pt
--- NOTE | 2024-03-04 11:58 | EKG ---
Test Date: 2024-03-02 Test Time: 18:20:46 Punch Press Setter: JALEESA MEASUREMENT RESULTS: Intervals: Rate: 107 TX: 126 QRSD: 78 QT: 356 QTc: 475 [place]: P: 64 TX: 126 QRS: 45 T: 29 INTERPRETIVE STATEMENTS: Sinus tachycardia Otherwise normal ECG Compared to ECG 11/10/2023 00:32:37 Sinus rhythm no longer present Electronically Signed On 03-04-24 11:54:30 CDT by Ceasar Nguyen
[2024-03-04 16:10] LABS: Anion Gap 7.5 mEq/L (5.0-15.0); Potassium 3.5 mEq/L (3.5-5.1)
--- NOTE | 2024-03-04 17:56 | P.PN ---
Subjective Date of Service: 03/04/24 Chief Complaint: Intractable nausea and vomiting Patient has been tolerating clear liquid diet. He states the smell of food makes him vomit so he has been avoiding any food with an odor. Physical Examination - Vital Signs Temperature: 97.1 F Blood Pressure: 94/55 Pulse: 72 Respirations: 20 Pulse Ox (%): 93 Assessment And Plan - Plan Physical examination General: Alert and oriented x3, NAD, obese. HEENT: Anicteric sclera Heart: Heart sounds 1 and 2 normal, regular rhythm, normal rate, no pedal edema Lungs: Clear to auscultation bilaterally, adequate breath sounds bilaterally, no rhonchi or crackles. Abdomen: Obese abdomen, soft, nontender, normal bowel sounds. Extremities: No tenderness, no deformity Skin: Normal skin turgor, no rash, no nodules or ulcers. Neuro: No focal motor deficit. Normal speech. Psychiatry: Normal mood, no agitation. Assessment and plan VIN (acute kidney injury) Resolved with IV hydration. Patient is also tolerating clear liquids Monitor electrolytes Nephrology input appreciated. Gastroparesis Patient presented with intractable nausea vomiting Patient has a history of gastroparesis. He is tolerating clear liquid diet. Case discussed with GI Dr. Ross recommend erythromycin oral or IV. IV is not available. Patient is prescribed erythromycin 250 mg 3 times daily Continue IV Reglan Continue IV hydration Hyperlipidemia Continue home medications. Hypertension Continue home medications. Morbid obesity due to excess calories Weight loss by diet and exercise recommended. Type 2 diabetes mellitus Current Visit: No Status: Chronic Plan: Aggressive blood sugar control with insulin sliding scale and basal insulin. Hyponatremia Hypokalemia Resolved Monitor electrolytes and replace accordingly LFTs elevated Likely related to hepatic steatosis. Patient also has gallbladder sludge. Monitor. Obstructive sleep apnea BiPAP at night DVT prophylaxis: Heparin SQ
[2024-03-04] MEDS: ERYTHROMYCIN BASE 250 MG TAB PO SCH (19:43)
[2024-03-05 08:14] VITALS: O2SAT 92
[2024-03-05] MEDS: SPIRONOLACTONE 25 MG TABLET PO SCH (08:30)
--- NOTE | 2024-03-05 11:41 | P.DS ---
Admission Date: 03/02/24 Discharge Date: 03/05/24 Disposition: ROUTINE DISCHARGE Discharge Condition: FAIR Reason for Admission: Intractable nausea and vomiting Brief History of Present Illness: 53 yrs old Male with past medical history of diabetes mellitus, hypertension, hyperlipidemia, CAD, congestive heart failure, history of COVID- 19, who presented with recurrent episodes of intractable nausea and vomiting. He could not tolerate anything by mouth. He was seen previously here as well as [facility] and has been diagnosed with gastroparesis. Patient denied any fever or chills. No sick contacts. Symptoms associated with abdominal discomfort and back pain. He reported bilious vomiting. Patient was assessed in the ER and was found to have acute kidney injury and dehydration along with intractable nausea and vomiting. CT did not show any acute changes Patient was admitted for further management. Hospital Course: Patient was admitted to the medical floor and the following medical problems addressed: Diagnosis VIN (acute kidney injury) Resolved with IV hydration Nephrology evaluated patient and assisted with management Gastroparesis Patient presented with intractable nausea vomiting Patient has a history of gastroparesis. He tolerated clear liquid diet. He states that the smell of food causes him to dry heave. Managed with IV Reglan. Case discussed with GI Dr. [place] recommended erythromycin. Patient started on oral erythromycin. Hyperlipidemia Continued home medications. Hypertension Continued home medications. Morbid obesity due to excess calories Weight loss by diet and exercise advised. Type 2 diabetes mellitus Current Visit: No Status: Chronic Plan: Managed with insulin sliding scale and Lantus insulin. Patient home insulin regimen-Lantus insulin resumed on discharge. He is informed not to administer his long-acting insulin if he is not able to eat. Hyponatremia Hypokalemia Treated with IV NS and potassium replacement. LFTs elevated Likely related to hepatic steatosis. Patient also has gallbladder sludge. Stable. Patient was asymptomatic. VIN has resolved, patient has tolerated clear liquid diet, and solid diet with little or no scent. He is discharged to follow-up with Dr. [place] for further evaluation and management of his gastroparesis. Vital Signs/Physical Exam: Temp Pulse Resp BP Pulse Ox 97.3 F 84 16 101/51 L 91 03/05/24 08:00 03/05/24 08:00 03/05/24 08:00 03/05/24 08:00 03/05/24 08:00 General: Alert, In no apparent distress, Obese HEENT: Mucous membr. moist/pink Neck: Supple, JVD not distended Respiratory: Clear to auscultation bilaterally, Normal air movement Cardiovascular: No edema, Regular rate/rhythm, Normal S1 S2 Gastrointestinal: Normal bowel sounds, Soft and benign, Non-distended Musculoskeletal: No tenderness Integumentary: No rashes, No cyanosis Neurological: Normal strength at 5/5 x4 extr Laboratory Data at Discharge: WBC 5.80 thou/uL (4.3-10.9) 03/03/24 05:46 Hgb 11.7 g/dL (13.6-17.9) L D 03/03/24 05:46 Hct 35.7 % (39.6-49.0) L 03/03/24 05:46 Plt Count 297 thou/uL (152-406) 03/03/24 05:46 Sodium 137 mEq/L (136-145) 03/04/24 15:20 Potassium 3.5 mEq/L (3.5-5.1) 03/04/24 15:20 BUN 4 mg/dL (7-18) L 03/04/24 15:20 Creatinine 1.29 mg/dL (0.70-1.30) 03/04/24 15:20 Glucose 131 mg/dL (74-106) H 03/04/24 15:20 Uric Acid 6.6 mg/dL (3.5-7.2) 03/04/24 06:37 Phosphorus 2.8 mg/dL (2.5-4.9) 03/03/24 05:46 Magnesium 1.6 mg/dL (1.6-2.4) 03/03/24 05:46 Total Bilirubin 0.7 mg/dL (0.2-1.0) 03/04/24 06:37 AST 65 U/L (15-37) H 03/04/24 06:37 ALT 64 U/L (16-61) H 03/04/24 06:37 Alkaline Phosphatase 76 U/L (45-117) 03/04/24 06:37 Lipase 42 U/L (13-75) 03/02/24 18:20 Home Medications: Atorvastatin Calcium 20 mg PO BEDTIME 02/22/22 Insulin Glargine,Hum.rec.anlog [Lantus] 50 units SQ BID 02/22/22 Pantoprazole [Protonix Tab*] 40 mg PO BID 02/22/22 Metoprolol Tartrate [Lopressor*] 50 mg PO BID #60 tab 02/23/22 Nebulizer Accessories [Aeroneb Go] 1 each MC DAILY #1 each 02/23/22 Nebulizer [Aeroneb Go Nebulizer] 1 each MC DAILY #1 each 02/23/22 Spironolactone [Aldactone*] 25 mg PO BID #60 tab 02/23/22 Metformin HCl [Glucophage*] 1,000 mg PO BIDWM 10/27/23 Erythromycin Base [Erythromycin] 250 mg PO TID #21 tab 03/05/24 New Medications: Erythromycin Base [Erythromycin] 250 mg PO TID #21 tab Physician Discharge Instructions: Liquid diet and advance as tolerated. Please do not give yourself insulin if you are not able to eat. Diet: ADA Activity: Ad yuly Followup: NONE,NONE [Primary Care Provider] - 1-2 Weeks Subhash Ross MD [ACTIVE - CAN ADMIT] - (Within 2 weeks) Time spent managing pt's care (in minutes): 32
[2024-03-05 13:26] VITALS: BP 115/51; TEMP 97.6
== END 2024-03-05 15:58 | disposition home or self-care (01) | DRG 683 ==
LOC: ER 17:34 → ERHOLD 21:22 → 4TH 03-03 01:16
PROVIDERS: ADMIT Family Medicine; ATTEND Internal Medicine
DX: N17.9 Acute kidney failure, unspecified (principal); E87.1 Hypo-osmolality and hyponatremia; E11.65 Type 2 diabetes mellitus with hyperglycemia; E11.42 Type 2 diabetes mellitus with diabetic polyneuropathy; E11.43 Type 2 diabetes mellitus with diabetic autonomic (poly)neuropathy; K31.84 Gastroparesis; E87.6 Hypokalemia; E86.0 Dehydration; E88.09 Other disorders of plasma-protein metabolism, not elsewhere classified; D63.8 Anemia in other chronic diseases classified elsewhere; E78.2 Mixed hyperlipidemia; E66.01 Morbid (severe) obesity due to excess calories; G47.33 Obstructive sleep apnea (adult) (pediatric); K76.0 Fatty (change of) liver, not elsewhere classified; K21.9 Gastro-esophageal reflux disease without esophagitis; I25.2 Old myocardial infarction; R79.89 Other specified abnormal findings of blood chemistry; Z79.4 Long term (current) use of insulin; Z88.8 Allergy status to other drugs, medicaments and biological substances; Z86.16 Personal history of COVID-19; Z68.36 Body mass index [BMI] 36.0-36.9, adult; Z79.84 Long term (current) use of oral hypoglycemic drugs; Z79.899 Other long term (current) drug therapy; Z89.022 Acquired absence of left finger(s); Z87.891 Personal history of nicotine dependence
CPT/HCPCS: 36415; 71045; 71250; 74176; 80048; 80053; 81001; 82043; 82550; 82570; 82947; 83690; 83735; 84100; 84156; 84484; 84550; 85025; 86706; 86803; 87340; 93005; 94660; 94760; 99285; C9113; J1644; J1815; J2270; J2405; J2765; J3475; J7030

== ENCOUNTER 2024-03-09 23:37 | Inpatient (IN) | payer OTHER ==
--- OUTSIDE RECORDS SUMMARY | 2024-03-09 23:46 | XMS REPORT | Continuity of Care Document ---
Author Name Unknown Address [address] [place] [address] [facility] thconnect Address 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 Name Role Phone Natacha Somers Primary Care Physician Florence Downs RN Attending Clinician SACHIN MCALLISTER Attending Clinician Unavailable Jody Heard Attending Clinician [phone] Jasmin Russell MD Attending Clinician [phone] Sachin Mcallister DO Attending Clinician [phone] WENDY MORENO Attending Clinician Unavailable Jeremias Ibarra Attending Clinician UnavailJOHN Edwards Attending Clinician UnaLYUBOV Blas Attending Clinician Unavailable MD LUIS ARMANDO Attending Clinician UnavailROHINI Cunningham Attending Clinician Unavailable MARCELLE ZHU Attending Clinician Unavailable MAISHA [facility] Attending Quynh n Unavailable STEVENSON, TRI R Attending Clinician Unavailable LAB47 Attending Clinician Unavailable AKBAR JEREZ Attending Clinician Unavailable CHOLO LOVE Attending Clinician Unavailable Andrade ARRIETA, Murali Attending Clinician [phone] Natasha ARRIETA, Dawna Attending Clinician [phone] Cholo Love MD Attending Clinician [phone] Horace MICHEL, Nata R Attending Clinician UnaJON Wiggins Attending Clinician Unavailable Gerson Palomino DO Attending Clinician [phone] Jon Cade MD Attending Clinician [phone] Lukasz Saul Attending Clinician Unavailable JAXON THOMAS Attending Clinician Unavailable JAI LOPEZ Attending Clinician Unavailable Jai Lopez MD Attending Clinician [phone] Sagn Rey Attending Clinician Unavailable Annette Lemus Attending Clinician [phone] GERSON GREENE Attending Clinician Unavailkaela Cervantes MD, Dustin Asher Attending Clinician Gerson Greene MD Attending Clinician + [phone] Doctor Unassigned, [place] Attending Clinician U Marlene Snyder Attending Clinician [phone] SACHIN MCALLISTER Admitting Clinician Unavailable Sachin Mcallister DO Admitting Clinician [phone] Jeremias Ibarra Admitting Clinician Unavailabl e Sang Rey Admitting Clinician Unavailable CHOLO LOVE Admitting Clinician Unavailable Kate ARRIETA, Cholo Admitting Clinician [phone] GERSON PALOMINO Admitting Clinician Unavailable Physician, No Primary or Family Admitting Clinic bill Unavailable Payers Payer Name Policy Type Policy Number Effective Date Expirati on Date Source [facility] DOMONIQUE GARCES COPAY FOCUS 9 [id number] 2023 00:00:00 LIZBETH QUIROS [employer]: HMO MAGNETIC LOCATER 94 ON STAND 9 [id number] 2023 00:00:00 Problems Condition Name Condition Details Condition Category Status Onset Date Resolution Date Last Treatment Date Treating Clinician Comments Source Fatigue, unspecifie d type Fatigue, unspecifie d type Disease Active 3-27 00:00: 00 [facility] Immunodefi ciency due to conditions classified [...] nausea present Disease Active 2021-11 00:00: 00 [facility] Intractabl e vomiting Intractabl e vomiting Disease Active 2021-11 00:00: 00 [facility] Tinea pedis Tinea pedis Disease Active 2021-11 00:00: 00 [facility] Chronic respirator y failure with hypoxia Chronic respirator y failure with hypoxia Disease Active 2021-11 00:00: 00 [facility] Type 2 diabetes mellitus without complicati on, without long-term current use of insulin Type 2 diabetes mellitus without complicati on, without long-term current use of insulin Disease Active 2021-11 0 00:00: 00 [facility] PAF (paroxysma l atrial fibrillati on) PAF (paroxysma l atrial fibrillati on) Disease Active 2021-11 0- 00:00: 00 [facility] CHAPARRO (obstructi ve sleep apnea) CHAPARRO (obstructi ve sleep apnea) Disease Active 2021-11 0 00:00: 00 [facility] Chest pain, unspecifie d type Chest pain, unspecifie d type Disease Active 2021-11 0 00:00: 00 [facility] Morbid obesity with body mass index of 40.0-49.9 Morbid obesity with body mass index of 40.0-49.9 Disease Active 2021-11 0 00:00: 00 [facility] Elevated LFTs Elevated LFTs Disease Active 2021-11 0 00:00: 00 [facility] Diabetic ketoacidos is without coma associated with type 2 diabetes mellitus Diabetic ketoacidos is without coma associated with type 2 diabetes mellitus Disease Active 04-21 00:00: 00 [facility] Obesity (BMI 30-39.9) Obesity (BMI 30-39.9) Disease Active 04-21 00:00: 00 [facility] No known active problems No known active problems Disease [facility] Allergies, Adverse Reactions, Alerts Allergy Name Allergy Type Status Severity Reaction(s) Onset Date Inactive Date Treating Clinician Comments Source EMPAGLIF LOZIN DRUG INGREDI Active Other-Cmnt 2021-11 00:00: 00 [facility] Empaglif lozin Propensi ty to adverse reaction s to drug Active Other - See comments 2021-11 00:00: 00 JEF [facility] Empaglif lozin Propensi ty to adverse reaction s Active Other 2021-11 00:00: 00 DKA Maisha Seybold - Externa l No Known Allergie s DA Active U 2021-11 0-24 00:00: 00 [facility] NO KNOWN ALLERGIE S Drug Class Active [facility] Social History Social Habit Start Date Stop Date Quantity Comments Source History of tobacco use Cigarette Smoker [facility] Sexual orientation U [facility] Gender identity Maeve Moy - External Alcohol intake 2023-04-17 00:00:00 2023-04-17 00:00:00 Ex-drinker (finding) Maisha Moy - External Exposure to SARS-CoV-2 (event) 2022-11-02 00:00:00 2022-11-12 00:35:00 Not sure [facility] Tobacco use and exposure 2022-09-03 00:00:00 2022-09-03 00:00:00 Smokeless tobacco non-user [facility] History of Social function 2021-09-30 00:00:00 2021-09-30 00:00:00 [facility] Sex Assigned At 1970 00:00:00 1970 00:00:00 Maisha Goddardvioleta - External Smoking Status Start Date Stop Date Source Never smoked tobacco Maisha Goddardvioleta - External Ex-smoker 2022-09-03 00:00:00 2022-09-03 00:00:00 [facility] Medications Ordered Medication Name Filled Medication Name Start Date Stop Date Current Medication? Ordering Clinician Indication Dosage Frequency Signature (SIG) Comments Components Source furosemide (LASIX) injection 40 mg 02-26 19:15: 00 02-26 19:06 :00 No 40mg 40 mg, Slow IV Push, ONCE, 1 dose, On 02/27/24 at 1415, Routine [facility] aspirin 81 mg chewable tablet 02-26 17:45: 47 Yes 81mg Take 1 tablet by mouth daily. [facility] spironolact one 25 mg tablet 02-26 17:45: 47 Yes 25mg Take 1 tablet by mouth 2 (two) times daily. [facility] omega-3-dha -epa-dpa-fi sh oil (OMEGA-3 2100) 1,050-1,200 mg Cap 02-26 17:45: 47 Yes Take by mouth 2 (two) times daily. [facility] METOPROLOL SUCCINATE ORAL 02-26 17:45: 47 Yes 50mg Take 50 mg by mouth 2 (two) times daily. [facility] pantoprazol e 40 mg EC tablet 02-26 17:45: 47 Yes 40mg Take 1 tablet by mouth 2 (two) times daily. [facility] insulin detemir (LEVEMIR U-100 INSULIN SC) 02-26 17:45: 47 Yes 45U inject 45 Units under the skin 2 (two) times daily. [facility] atorvastati n (LIPITOR) 40 mg tablet 02-26 17:45: 47 Yes 40mg Take 1 tablet by mouth at bedtime. [facility] glipiZIDE 5 mg tablet 02-26 17:45: 47 Yes 5mg Take 1 tablet by mouth daily. [facility] KCL (KLOR-CON M20) tablet 40 mEq 02-26 14:00: 00 Yes 40meq 40 mEq, Oral, DAILY, First dose on 02/27/24 at 0900, Until Discontinu ed, Routine [facility] metoclopram nixon HCl (REGLAN) tablet 5 mg 02-26 12:30: 00 Yes 5mg 5 mg, Oral, AC, First dose on 02/27/24 at 0730, Until Discontinu ed, Routine [facility] metoclopram nixon HCl 5 mg tablet 02-26 00:00: 00 03-06 04:59 :00 Yes [id number] 5mg Take 1 tablet by mouth every 6 (six) hours as needed for Nausea and Vomiting (N/V) for up to 7 days. [facility] KCL 20 mEq tablet 02-26 00:00: 00 03-02 04:59 :00 Yes [id number] 40meq Take 2 tablets by mouth daily for 3 days. [facility] dicyclomine 10 mg capsule 02-26 00:00: 00 03-02 04:59 :00 Yes [id number] 10mg Take 1 capsule by mouth 4 (four) times daily for 3 days. [facility] acetaminoph en (TYLENOL) tablet 650 mg 02-25 22:21: 08 Yes 650mg 650 mg, Oral, Q6HPRN, Starting on Thu02/26/24 at 1721, Until Discontinu ed, Routine, Pain (scale 4-6) [facility] KCL (KLOR-CON M20) tablet 40 mEq 02-25 17:00: 00 02-25 21:45 :00 No 40meq 40 mEq, Oral, Q4H, 2 doses, First dose on Thu02/26/24 at 1200, Last dose on Thu02/26/24 at 1600, [facility]BENT[facility] 10 mg 02-24 17:00: 00 Yes 10mg 10 mg, Oral, QID, First dose on Thu02/25/24 at 1200, Until Discontinu ed, Routine [facility] KCL (KLOR-CON M20) tablet 20 mEq 02-24 15:00: 00 02-24 17:15 :00 No 20meq 20 mEq, Oral, Q2H, 2 doses, First dose on Thu02/25/24 at 1000, Last dose on Thu02/25/24 at 1200, Routine [facility] metoprolol tartrate (LOPRESSOR) tablet 25 mg 02-24 14:00: 00 Yes 25mg 25 mg, Oral, BID, First dose on Thu02/25/24 at 0900, Until Discontinu ed, [facility] enoxaparin (LOVENOX) injection 40 mg 02-24 14:00: 00 Yes 40mg 40 mg, Subcutaneo us, DAILY, First dose on Thu02/25/24 at 0900, Until Discontinu ed, [facility] glipiZ[facility] (GLUCOTROL) tablet 5 mg 02-24 14:00: 00 Yes 5mg 5 mg, Oral, DAILY, First dose on Thu02/25/24 at 0900, Until Discontinu ed, Routine [facility] aspirin chewable tablet 81 mg 02-24 14:00: 00 Yes 81mg 81 mg, Oral, DAILY, First dose on Thu02/25/24 at 0900, Until Discontinu ed, Routine [facility] metoclopram nixon HCl (REGLAN) injection 10 mg 02-24 05:00: 00 02-25 22:23 :08 No 10mg 10 mg, Slow IV Push, Q6H, First dose on Thu02/25/24 at 0000, Until Discontinu ed, Routine [facility] atorvastati n (LIPITOR) tablet 40 mg 02-24 02:00: 00 Yes 40mg 40 mg, Oral, QHS, First dose on Thu02/24/24 at 2100, Until Discontinu ed, Routine [facility] pantoprazol e (PROTONIX) EC tablet 40 mg 02-24 01:00: 00 Yes 40mg 40 mg, Oral, BID, First dose on Thu02/24/24 at 2000, Until Discontinu ed, Routine [facility] insulin detemir U-100 (LEVEMIR U-100 INSULIN) injection 45 Units 02-24 01:00: 00 Yes 45U 45 Units, Subcutaneo us, BID, First dose on Thu02/24/24 at 2000, Until Discontinu ed
Rest ricted - To be dispensed only to: Continuati on from home [facility] glucagon (GLUCAGEN DIAGNOSTIC KIT) injection 1 mg 02-23 20:27: 21 Yes 1mg 1 mg, Intramuscu lar, PRN, Starting on Thu02/24/24 at 1527, Until Discontinu ed, [place], Blood Glucose < or = 70 mg/dL and patient is NPO, unable to swallow or has mental changes. [facility] HYDROcodone -acetaminop hen (NORCO) 10-325 mg tablet 1 tablet 02-23 20:12: 43 02-25 22:21 :00 No 1{tbl} 1 tablet, Oral, Q6HPRN, Starting on Thu02/24/24 at 1512, Until Thu02/26/24 at 1721, Routine, Pain (scale 7-10) [facility] Sliding Scale Insulin-Reg ular 02-23 16:30: 00 Yes Subcutaneo us, AC+HS, First dose on Thu02/24/24 at 1130, Until Discontinu ed, Routine [facility] lactated ringers IV infusion 1,000 mL 02-23 14:00: 00 02-24 20:00 :27 No 1000mL at 125 mL/hr, 1,000 mL, IV Infusion, CONTINUOUS , Starting on Thu02/24/24 at 0900, Until Thu02/25/24 at 1500, Routine [facility] glucagon (GLUCAGEN DIAGNOSTIC KIT) injection 1 mg 02-23 12:47: 50 Yes 1mg 1 mg, Intramuscu lar, PRN, Starting on Thu02/24/24 at 0747, Until Discontinu ed, [place], Blood Glucose < or = 70 mg/dL and patient is NPO, unable to swallow or has mental changes. [facility] dextrose 50 % in water (D50W) injection 25 mL 02-23 12:47: 50 Yes 25mL 25 mL, Slow IV Push, PRN, Starting on Thu02/24/24 at 0747, Until Discontinu ed, [place], Blood Glucose < or = 70 mg/dL and patient is NPO, unable to swallow or has mental status changes. [facility] proMETHazin e (PHENERGAN) 25 mg in NS 50 mL IV piggyback (CNR) 02-23 12:47: 00 Yes 25mg 25 mg, IV Piggyback, at 200 mL/hr Administer over 15 Minutes, Q4HPRN, Starting on Thu02/24/24 at 0747, Until Discontinu ed, Routine, Nausea and Vomiting (N/V) [facility] ondansetron (ZOFRAN (PF)) injection 4 mg 02-23 12:45: 00 02-23 12:35 :00 No 4mg 4 mg, Slow IV Push, ONCE, 1 dose, On Thu02/24/24 at 0745, [place] [facility] iopamidol (ISOVUE 370-500 mL) injection 100 mL 02-23 09:45: 00 02-23 09:45 :00 No [id number] 100mL 100 mL, Intravenou s, ONCE, 1 dose, On Thu02/24/24 at 0445, Routine [facility] NaCl 0.9% (NS) bolus infusion 500 mL 02-23 08:00: 00 02-23 09:46 :00 No 500mL at 999 mL/hr, 500 mL, IV Infusion, ONCE, 1 dose, On Thu02/24/24 at 0300, [place] [facility] potassium chloride in water 10 mEq/100 mL RTU 10 mEq 02-23 07:46: 00 02-23 09:17 :00 No 10meq 10 mEq, IV Piggyback, ONCE, 1 dose, On Thu02/24/24 at 0300, Administer over 60 Minutes, 100 mL [facility] FENTanyl PF (SUBLIMAZE (PF)) injection 50 mcg 02-23 07:45: 00 02-23 07:29 :00 No 50ug 50 mcg, Slow IV Push, ONCE, 1 dose, On Thu02/24/24 at 0245, Routine [facility] ondansetron (ZOFRAN (PF)) injection 4 mg 02-23 07:00: 00 02-23 07:29 :00 No 4mg 4 mg, Slow IV Push, ONCE, 1 dose, On Thu02/24/24 at 0200, [place] [facility] NaCl 0.9% (NS) bolus infusion 500 mL 02-23 07:00: 00 02-23 07:55 :00 No 500mL at 999 mL/hr, 500 mL, IV Infusion, ONCE, 1 dose, On Thu02/24/24 at 0200, STAT [facility] sodium chloride (NS) injection 5 mL 02-23 06:01: 43 Yes 5mL 5 mL, Intravenou s, PRN, Starting on Thu02/24/24 at 0101, Until Discontinu ed, Routine, IV line flushing [facility] Aspirin 81 MG oral Chewable Tablet 04-17 08:32: 54 Yes 81mg Take 1 tablet (81 mg total) by mouth daily Maisha constantino Metformin HCl 1000 MG oral Tablet 04-17 00:00: 00 Yes [id number] 3 1000mg Take 1 tablet (1,000 mg total) by mouth in the morning and 1 tablet (1,000 mg total) in the evening. Take with meals. Maisha constantino Atorvastati n Calcium 40 MG oral Tablet 04-17 00:00: 00 Yes [id number] 3 40mg Take 1 tablet (40 mg total) by mouth daily Maisha constantino Insulin Aspart (NovoLOG FlexPen) 100 UNIT/ML subcutaneou s Solution Pen-injecto r 04-17 00:00: 00 Yes [id number] 3 Use as directed three times daily, inject 24 units TID plus sliding scale. Max daily dose 80 units Maisha constantino Insulin Detemir (Levemir FlexPen) 100 UNIT/ML subcutaneou s Solution Pen-injecto r 04-17 00:00: 00 Yes [id number] 3 Inject 35 units twice daily Maisha constantino Insulin Pen Needle 31G X 5 MM does not apply [facility] 04-17 00:00: 00 Yes [id number] 3 Inject insulin 5 times daily Maisha constantino OZEMPIC (0.25 or 0.5 mg/dose) 2 mg/3 mL SQ Solution Pen-Injecto r 04-17 00:00: 00 Yes [id number] 3 .25mg Inject 0.25 mg into the skin once a week If tolerated after 4 weeks, increase to 0.5mg weekly Maisha constantino Insulin Detemir (Levemir) 100 UNIT/ML subcutaneou s Solution 04-17 00:00: 00 04-17 00:00 :00 No [id number] 3 Inject 35 units twice dominguez Maisha constantino Budesonide, Inhalation, 0.5 MG/2ML inhalation Suspension 04-14 00:00: 00 Yes [id number] .5mg Take 2 mL (0.5 mg total) by nebulizati on 2 times daily Maisha constantino OZEMPIC (0.25 or 0.5 mg/dose) 2 mg/3 mL SQ Solution Pen-Injecto r 04-13 00:00: 00 04-17 00:00 :00 No [id number] 3 .25mg Inject 0.25 mg into the [...] inhalation Inhalant Solution 04-08 00:00: 00 Yes [id number] 1.25mg Q.25D Take 3 mL (1.25 mg total) by nebulizati on every 6 hours as needed for wheezing Maisha constantino Amoxicillin -Pot Clavulanate 875-125 MG oral Tablet 04-08 00:00: 00 Yes [id number] 1{tbl} Take 1 tablet by mouth 2 times daily Maisha constantino Furosemide (Lasix) 20 MG oral Tablet 04-08 00:00: 00 Yes [id number] 20mg Take 1 tablet (20 mg total) by mouth daily Maisha constantino Metoprolol Succinate 25 MG oral Capsule ER 24 Hour Sprinkle 04-08 00:00: 00 Yes [id number] 25mg Take 25 mg by mouth daily Maisha constantino Lisinopril 5 MG oral Tablet 04-08 00:00: 00 Yes [id number] 5mg Take 1 tablet (5 mg total) by mouth daily Maisha constantino Potassium Chloride Lanie ER 20 MEQ oral Tab CR tablet 04-08 00:00: 00 Yes [id number] 20meq Take 1 tablet (20 mEq total) by mouth daily Maisha constantino Metoprolol Succinate 25 MG oral TABLET SR 24 HR 04-08 00:00: 00 Yes 25mg Take 1 tablet (25 mg total) by mouth daily Maisha constantino Budesonide, Inhalation, 0.5 MG/2ML inhalation Suspension 04-08 00:00: 00 Yes [id number] .5mg Take 2 mL (0.5 mg total) by nebulizati on 2 times daily Maisha constantino Insulin Aspart Prot & Aspart (NovoLOG 70/30 FlexPen ReliOn) (70-30) 100 UNIT/ML subcutaneou s Suspension Pen-injecto r 04-08 00:00: 00 Yes Inject per sliding scale Maisha constantino Insulin Glargine (Lantus SoloStar) 100 UNIT/ML subcutaneou s Solution Pen-injecto r 04-08 00:00: 00 Yes inject 30 units daily Maisha Collinsa dougie Insulin Detemir (Levemir) 100 UNIT/ML subcutaneou s Solution 04-08 00:00: 00 04-17 00:00 :00 No [id number] 3 Inject 30 units daily. Increase dosage by 2 units every 2 days until fasting glucose less than 140 or better. Max daily dose of 60 units Maisha Collinsa dougie Insulin Aspart (NovoLOG FlexPen) 100 UNIT/ML subcutaneou s Solution Pen-injecto r 04-08 00:00: 00 04-17 00:00 :00 No [id number] 3 Use as directed three times daily, inject 10 units TID plus sliding scale. Max daily dose 60 units Maisha Collinsa dougie predniSONE (DELTASONE) 10 MG oral tablet 04-08 00:00: 04-14 04:59 :00 No [id number] 40mg Take 4 tablets (40 mg total) [...] mg total) by mouth daily Maisha constantino Loomis-3-aci d Ethyl Esters 1 g oral Capsule [...] 81mg Take 81 mg by mouth daily. [facility] spironolact one 25 mg tablet 2021-11 15:36: 13 Yes 25mg Take 25 mg by mouth 2 (two) times daily. [facility] omega-3-dha -epa-dpa-fi sh oil (OMEGA-3 2100) 1,050-1,200 mg Cap 2021-11 15:36: 13 Yes Take by mouth 2 (two) times daily. [facility] METOPROLOL SUCCINATE ORAL 2021-11 15:36: 13 Yes 50mg Take 50 mg by mouth 2 (two) times daily. [facility] pantoprazol e 40 mg EC tablet 2021-11 15:36: 13 Yes 40mg Take 40 mg by mouth 2 (two) times daily. [facility] atorvastati n 20 mg tablet 2021-11 11:58: 50 11-12 00:00 :00 No 40mg Take 40 mg by mouth at bedtime. [facility] famotidine 40 mg tablet 2021-11 11:58: 50 11-12 00:00 :00 No 40mg Take 40 mg by mouth daily. [facility] metoclopram nixon HCl (REGLAN) injection 10 mg 2021-11 19:45: 00 11-13 17:59 :00 No 10mg 10 mg, Slow IV Push, Q6H, 8 doses, First dose on Thu11/11/22 at 1345, Last dose on Thu11/13/22 at 0600, Routine [facility] potassium chloride in water 10 mEq/100 mL RTU 10 mEq 2021-11 15:00: 00 11-11 17:25 :00 No 10meq 10 mEq, IV Piggyback, Q1H, 2 doses, First dose on Thu11/11/22 at 0900, Last dose on Thu11/11/22 at 1000, Administer over 60 Minutes, 100 mL [facility] KCL (KLOR-CON M20) tablet 40 mEq 2021-11 14:15: 00 11-11 19:57 :00 No 40meq 40 mEq, Oral, Q2H, 3 doses, First dose on Thu11/11/22 at 0815, Last dose on Thu11/11/22 at 1200, [facility] ([facility]ON[facility] EC tablet 40 mg 2021-11 02:00: 00 Yes 40mg 40 mg, Oral, BID, First dose on Thu11/10/22 at 2000, Until Discontinu ed, Routine [facility] potassium chloride in water 10 mEq/100 mL RTU 10 mEq 2021-11 23:45: 00 11-11 01:05 :00 No 10meq 10 mEq, IV Piggyback, ONCE, 1 dose, On Thu11/10/22 at 1745, Administer over 60 Minutes, 100 mL [facility] chloride in water 10 mEq/100 mL RTU 10 mEq 2021-11 22:00: 00 11-10 22:59 :00 No 10meq 10 mEq, IV Piggyback, ONCE, 1 dose, On Thu11/10/22 at 1600, Administer over 60 Minutes, 100 mL [facility] potassium chloride in water 10 mEq/100 mL RTU 10 mEq 2021-11 17:00: 00 11-10 20:59 :00 No 10meq 10 mEq, IV Piggyback, Q1H, 4 doses, First dose on Thu11/10/22 at 1100, Last dose on Thu11/10/22 at 1400, Administer over 60 Minutes, 100 mL [facility] KCL (KLOR-CON M20) tablet 40 mEq 2021-11 15:45: 00 11-10 14:57 :00 No 40meq 40 mEq, Oral, ONCE, 1 dose, On Thu11/10/22 at 0945, Routine [facility] insulin glargine (LANTUS U-100) injection 10 Units 2021-11 15:00: 00 Yes 10U 10 Units, Subcutaneo us, DAILY, First dose on Thu11/10/22 at 0900, Until Discontinu ed, Routine [facility] aspirin chewable tablet 81 mg 2021-11 15:00: 00 Yes 81mg 81 mg, Oral, DAILY, First dose on Thu11/10/22 at 0900, Until Discontinu ed, [facility] Sl[facility] Scale Insulin - Lispro (HumaLOG) + Fsbg Testing 2021-11 14:00: 00 Yes Subcutaneo us, TID MEALS+HS, First dose (after last modificati on) on Thu11/10/22 at 0800, Until Discontinu ed, Routine [facility] metoprolol succinate XL (TOPROL XL) tablet 50 mg 2021-11 14:00: 00 Yes 50mg 50 mg, Oral, BID, First dose on Thu11/10/22 at 0800, Until Discontinu ed [facility] apixaban (ELIQUIS) tablet 5 mg 2021-11 14:00: 00 Yes [id number] 5mg 5 mg, Oral, BID, First dose on Thu11/10/22 at 0800, Until Discontinu ed, Routine
Indicatio ns: Non-Valvul ar Atrial Fibrillati on [facility] pantoprazol e (PROTONIX) injection 40 mg 2021-11 14:00: 00 11-10 21:04 :12 No 40mg 40 mg, Slow IV Push, Q12H, First dose on Thu11/10/22 at 0800, Until Discontinu ed [facility] spironolact one (ALDACTONE) tablet 25 mg 2021-11 14:00: 00 11-10 21:02 :33 No 25mg 25 mg, Oral, BID, First dose on Thu11/10/22 at 0800, Until Discontinu ed, Routine [facility] glucagon (GLUCAGEN DIAGNOSTIC KIT) injection 1 mg 2021-11 07:13: 25 Yes 1mg 1 mg, Intramuscu lar, PRN, Starting on Thu11/10/22 at 0113, Until Discontinu ed, [place], Blood Glucose < or = 70 mg/dL and patient is unable to swallow or has mental changes. [facility] dextrose 50 % in water (D50W) injection 25 mL 2021-11 07:13: 25 Yes 25mL 25 mL, Slow IV Push, PRN, Starting on Thu11/10/22 at 0113, Until Discontinu ed, [place], Blood Glucose < or = 70 mg/dL and patient is unable to swallow or has mental status changes. [facility] ondansetron (ZOFRAN (PF)) injection 4 mg 2021-11 07:13: 15 11-11 19:30 :03 No 4mg 4 mg, Slow IV Push, Q6HPRN, Starting on Thu11/10/22 at 0113, Until Thu11/11/22 at 1330, Routine, Nausea and Vomiting (N/V) [facility] HYDROcodone -acetaminop hen (NORCO) 10-325 mg tablet 1 tablet 2021-11 07:13: 12 Yes 1{tbl} 1 tablet, Oral, Q6HPRN, Starting on Thu11/10/22 at 0113, Until Discontinu ed, Routine, Pain (scale 7-10) [facility] acetaminoph en (TYLENOL) tablet 650 mg 2021-11 07:13: 06 Yes 650mg 650 mg, Oral, Q6HPRN, Starting on Thu11/10/22 at 0113, Until Discontinu ed, Routine, Pain (scale 1-3) [facility] potassium chloride in water 10 mEq/100 mL RTU 10 mEq 2021-11 06:00: 00 11-10 06:45 :00 No 10meq 10 mEq, IV Piggyback, ONCE, 1 dose, On Thu11/10/22 at 0000, Administer over 60 Minutes, 100 mL [facility] pantoprazol e (PROTONIX) injection 40 mg 2021-11 04:45: 00 11-10 05:14 :00 No 40mg 40 mg, Slow IV Push, ONCE, 1 dose, On Thu11/09/22 at 2245 [facility] NaCl 0.9% (NS) bolus infusion 1,000 mL 2021-11 04:15: 00 11-10 04:00 :00 No 1000mL at 999 mL/hr, 1,000 mL, IV Infusion, ONCE, 1 dose, On Thu11/09/22 at 2215, STAT [facility] metoclopram nixon HCl (REGLAN) injection 10 mg 2021-11 03:15: 00 11-10 03:54 :00 No 10mg 10 mg, Slow IV Push, ONCE, 1 dose, On 11/09/22 at 2115, [place] [facility] aspirin 81 mg chewable tablet 2021-11 01:13: 48 Yes 81mg Take 81 mg by mouth daily. [facility] spironolact one 25 mg tablet 2021-11 01:13: 48 Yes 25mg Take 25 mg by mouth 2 (two) times daily. [facility] omega-3-dha -epa-dpa-fi sh oil (OMEGA-3 2100) 1,050-1,200 mg Cap 2021-11 01:13: 48 Yes Take by mouth 2 (two) times daily. [facility] METOPROLOL SUCCINATE ORAL 2021-11 01:13: 48 Yes 50mg Take 50 mg by mouth 2 (two) times daily. [facility] atorvastati n 20 mg tablet 2021-11 01:13: 48 Yes 40mg Take 40 mg by mouth at bedtime. [facility] pantoprazol e 40 mg EC tablet 2021-11 01:13: 48 Yes 40mg Take 40 mg by mouth 2 (two) times daily. [facility] famotidine 40 mg tablet 2021-11 01:13: 48 Yes 40mg Take 40 mg by mouth daily. [facility] insulin glargine (LANTUS U-100) injection 10 Units 2021-11 15:00: 00 Yes 10U 10 Units, Subcutaneo us, DAILY, First dose (after last modificati on) on 11/08/22 at 0900, Until Discontinu ed, Routine [facility] insulin glargine 100 unit/mL injection 2021-11 00:00: 00 02-23 00:00 :00 No [id number] 10U inject 10 Units under the skin daily. If not eating or if blood sugar is between 80 and 120 give HALF the dose. If blood sugar less than 80: Eat a meal and recheck. Give half dose of insulin once blood sugar over 120. [facility] insulin lispro (human) (HumaLOG U-100) injection 3 Units 2021-11 23:00: 00 Yes 3U 3 Units, Subcutaneo us, TID MEALS, First dose (after last modificati on) on Thu11/07/22 at 1700, Until Discontinu ed, Routine [facility] aspirin 81 mg chewable tablet 2021-11 17:37: 57 Yes 81mg Take 81 mg by mouth daily. [facility] spironolact one 25 mg tablet 2021-11 17:37: 57 Yes 25mg Take 25 mg by mouth 2 (two) times daily. [facility] omega-3-dha -epa-dpa-fi sh oil (OMEGA-3 2100) 1,050-1,200 mg Cap 2021-11 17:37: 57 Yes Take by mouth 2 (two) times daily. [facility] METOPROLOL SUCCINATE ORAL 2021-11 17:37: 57 Yes 50mg Take 50 mg by mouth 2 (two) times daily. [facility] atorvastati n 20 mg tablet 2021-11 17:37: 57 Yes 40mg Take 40 mg by mouth at bedtime. [facility] pantoprazol e 40 mg EC tablet 2021-11 17:37: 57 Yes 40mg Take 40 mg by mouth 2 (two) times daily. [facility] sodium phosphate 30 mmol in NaCl 0.9% (NS) 250 mL piggyback 2021-11 17:30: 00 11-07 21:49 :00 No 30mmol 30 mmol, IV Piggyback, ONCE, 1 dose, On Thu11/07/22 at 1130, Administer over 4 Hours, 250 mL [facility] apixaban (ELIQUIS) tablet 5 mg 2021-11 15:30: 00 Yes 5mg 5 mg, Oral, BID, First dose on Thu11/07/22 at 0930, Until Discontinu ed, Routine
Indicatio ns: Non-Valvul ar Atrial Fibrillati on [facility] aspirin chewable tablet 81 mg 2021-11 15:00: 00 Yes 81mg 81 mg, Oral, DAILY, First dose on Thu11/07/22 at 0900, Until Discontinu ed, Routine [facility] KCL (KLOR-CON M20) tablet 40 mEq 2021-11 15:00: 00 11-07 17:13 :00 No 40meq 40 mEq, Oral, ONCE, 1 dose, On Thu11/07/22 at 0900, Routine [facility] insulin regular, human (HUMULIN R U-500, CONC, INSULIN SC) 2021-11 14:59: 33 11-07 00:00 :00 No 35U inject 35 Units under the skin 2 (two) times daily. [facility] tirzepatide 5 mg/0.5 mL subcutaneou s injection 2021-11 14:59: 33 11-07 00:00 :00 No 5mg inject 5 mg under the skin weekly. [facility] metoprolol succinate XL (TOPROL XL) tablet 50 mg 2021-11 14:00: 00 Yes 50mg 50 mg, Oral, BID, First dose on Thu11/07/22 at 0800, Until Discontinu ed, Routine [facility] atorvastati n (LIPITOR) tablet 40 mg 2021-11 03:00: 00 Yes 40mg 40 mg, Oral, QHS, First dose on Thu11/06/22 at 2100, Until Discontinu ed, Routine [facility] metFORMIN 1,000 mg tablet 2021-11 00:00: 00 Yes [id number] 1000mg Take 1 tablet by mouth 2 (two) times daily with meals. [facility] insulin regular human (HUMULIN R) 500 unit/mL injection 2021-11 00:00: 00 Yes [id number] Do not take your scheduled regular insulin. [...] meal and cover again with sliding scale [facility] apixaban 5 mg tablet 2021-11 00:00: 00 02-23 00:00 :00 No [id number] 5mg Take 1 tablet by mouth 2 (two) times daily. Indication s: atrial fibrillati on [facility] tirzepatide (MOUNJARO) 7.5 mg/0.5 mL PnIj 2021-11 00:00: 00 11-12 00:00 :00 No [id number] 7.5mg inject 7.5 mg under the skin weekly. [facility] Sliding Scale Insulin - Lispro (HumaLOG) + Fsbg Testing 2021-11 23:00: 00 Yes Subcutaneo us, TID MEALS+HS, First dose on Thu11/06/22 at 1700, Until Discontinu ed, Routine [facility] enoxaparin (LOVENOX) injection 40 mg 2021-11 23:00: 00 11-07 15:23 :13 No 40mg 40 mg, Subcutaneo us, DAILY, First dose on Thu11/06/22 at 1700, Until Discontinu ed, Routine [facility] D5W-LR IV infusion 1,000 mL 2021-11 22:32: 00 Yes 1000mL at 150 mL/hr, IV Infusion, CONTINUOUS , Starting on Thu11/06/22 at 1645, Until Discontinu ed, Routine [facility] glucagon (GLUCAGEN DIAGNOSTIC KIT) injection 1 mg 2021-11 22:00: 35 Yes 1mg 1 mg, Intramuscu lar, PRN, Starting on Thu11/06/22 at 1600, Until Discontinu ed, [place], Blood Glucose < or = 70 mg/dL and patient is unable to swallow or has mental changes. [facility] dextrose 50 % in water (D50W) injection 25 mL 2021-11 22:00: 35 Yes 25mL 25 mL, Slow IV Push, PRN, Starting on Barbra 11/06/22 at 1600, Until Discontinu ed, [place], Blood Glucose < or = 70 mg/dL and patient is unable to swallow or has mental status changes. [facility] sodium bicarbonate 8.4 % (1 mEq/mL) injection 50 mEq 2021-11 16:15: 00 11-06 16:16 :00 No 50meq 50 mEq, Slow IV Push, ONCE, 1 dose, On Barbra 11/06/22 at 1015, Routine [facility] insulin glargine (LANTUS U-100) injection 20 Units 2021-11 15:30: 00 11-07 20:55 :57 No 20U 20 Units, Subcutaneo us, DAILY, First dose on Barbra 11/06/22 at 0930, Until Discontinu ed, Routine [facility] clotrimazol e (LOTRIMIN) 1 % topical cream 2021-11 15:00: 00 Yes Topical, DAILY, First dose on Barbra 11/06/22 at 0900, Until Discontinu ed, Routine [facility] morpHINE (2 mg/mL) injection 2 mg 2021-11 14:51: 00 11-06 16:16 :00 No 2mg 2 mg, Slow IV Push, ONCE, 1 dose, On Barbra 11/06/22 at 0900, Routine [facility] empaglifloz in-metformi n (SYNJARDY) 12.5-1,000 mg Tab 2021-11 14:36: 52 11-06 00:00 :00 No 2{tbl} Take 2 tablets by mouth 2 (two) times daily. [facility] D5W-LR IV infusion 1,000 mL 2021-11 12:45: 00 11-06 21:59 :42 No 1000mL at 200 mL/hr, IV Infusion, CONTINUOUS , Starting on Barbra 11/06/22 at 0645, Until [place]bra 11/06/22 at 1559, Routine [facility] ondansetron (ZOFRAN (PF)) injection 4 mg 2021-11 11:51: 01 Yes 4mg 4 mg, Slow IV Push, Q6HPRN, Starting on Thu11/06/22 at 0551, Until Discontinu ed, [place], Nausea and Vomiting (N/V) [facility] acetaminoph en (TYLENOL) tablet 650 mg 2021-11 11:39: 11 Yes 650mg 650 mg, Oral, Q6HPRN, Starting on Thu11/06/22 at 0539, Until Discontinu ed, Routine, Pain (scale 4-6), Pain (scale 1-3), headache [facility] NaCl 0.9% (NS) bolus infusion 1,000 mL 2021-11 07:30: 00 11-06 08:22 :00 No 1000mL at 999 mL/hr, 1,000 mL, IV Infusion, ONCE, 1 dose, On Thu11/06/22 at 0130, STAT [facility] morpHINE (2 mg/mL) injection 4 mg 2021-11 07:15: 00 11-06 07:16 :00 No 4mg 4 mg, Slow IV Push, ONCE, 1 dose, On Thu11/06/22 at 0115, Routine [facility] iopamidol (ISOVUE 370-500 mL) injection 150 mL 2021-11 07:00: 00 11-06 07:00 :00 No [id number] 150mL 150 mL, Intravenou s, ONCE, 1 dose, On Thu11/06/22 at 0100, Routine [facility] NaCl 0.45% (1/2NS) 1000 mL + KCL 20 mEq 2021-11 06:45: 00 11-06 11:36 :49 No 1000mL [facility] D5W 0.45% NaCl (1/2NS) 1 L + KCL 20 mEq 2021-11 06:43: 25 11-06 11:36 :49 No IV Infusion, at 200 mL/hr, PRN - SEE INSTRUCTIO NS, Starting on Thu11/06/22 at 0043, Until Thu11/06/22 at 0536, [place], Blood glucose control [facility] acetaminoph en (TYLENOL) tablet 975 mg 2021-11 05:30: 00 11-06 04:58 :00 No 975mg 975 mg, Oral, ONCE, 1 dose, On Thu11/05/22 at 2330, [place] [facility] ondansetron (ZOFRAN (PF)) injection 4 mg 2021-11 05:30: 00 11-06 04:57 :00 No 4mg 4 mg, Slow IV Push, ONCE, 1 dose, On Thu11/05/22 at 2330, [place] [facility] sulfur hexafluorid e microsphr (LUMASON) injection 5 mL 2021-11 17:15: 00 09-04 17:15 :00 No [id number] 5mL 5 mL, Intravenou s, ONCE, 1 dose, On [place] 09/04/22 at 1215, Routine
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 [facility] empaglifloz in-metformi n (SYNJARDY) 12.5-1,000 mg Tab 2021-11 14:37: 28 Yes 2{tbl} Take 2 tablets by mouth 2 (two) times daily. [facility] spironolact one 25 mg tablet 2021-11 14:37: 28 Yes 25mg Take 25 mg by mouth 2 (two) times daily. [facility] omega-3-dha -epa-dpa-fi sh oil (OMEGA-3 2100) 1,050-1,200 mg Cap 2021-11 14:37: 28 Yes Take by mouth 2 (two) times daily. [facility] METOPROLOL SUCCINATE ORAL 2021-11 14:37: 28 Yes 50mg Take 50 mg by mouth 2 (two) times daily. [facility] atorvastati n 20 mg tablet 2021-11 14:37: 28 Yes 40mg Take 40 mg by mouth at bedtime. [facility] pantoprazol e 40 mg EC tablet 2021-11 14:37: 28 Yes 40mg Take 40 mg by mouth 2 (two) times daily. [facility] insulin regular, human (HUMULIN R U-500, CONC, INSULIN SC) 2021-11 14:37: 28 Yes 35U inject 35 Units under the skin 2 (two) times daily. [facility] tirzepatide 5 mg/0.5 mL subcutaneou s injection 2021-11 14:37: 28 Yes 5mg inject 5 mg under the skin weekly. [facility] SITagliptin (JANUVIA) tablet 50 mg 2021-11 14:00: 00 Yes 50mg 50 mg, Oral, DAILY, First dose on Thu09/04/22 at 0900, Until Discontinu ed, Routine [facility] insulin glargine,hu m.rec.anlog (TOUJEO SOLOSTAR U-300 INSULIN SC) 2021-11 13:06: 04 09-04 00:00 :00 No inject under the skin. [facility] apixaban (ELIQUIS) 5 mg tablet 2021-11 13:06: 04 09-04 00:00 :00 No 5mg Take 5 mg by mouth 2 (two) times daily. [facility] enoxaparin (LOVENOX) injection 40 mg 2021-11 05:45: 00 Yes 40mg 40 mg, Subcutaneo us, Q24H, First dose on Thu09/04/22 at 0045, Until Discontinu ed, Routine [facility] sennosides (SENOKOT) tablet 8.6 mg 2021-11 04:45: 00 Yes 8.6mg 8.6 mg, Oral, BID, First dose on Thu09/03/22 at 2345, Until Discontinu ed, Routine [facility] docusate (COLACE) capsule 100 mg 2022-1 0-06 04:45: 00 Yes 100mg 100 mg, Oral, BID, First dose on Thu09/03/22 at 2345, Until Discontinu ed, Routine [facility] aspirin chewable tablet 81 mg 2021-11 0-06 04:45: 00 Yes 81mg 81 mg, Oral, QAM WITH BREAKFAST, First dose on Thu09/03/22 at 2345, Until Discontinu ed, Routine [facility] sucralfate (CARAFATE) 100 mg/mL suspension 1,000 mg 2021-11 0 04:45: 00 Yes 1g 1,000 mg (1 g), Oral, AC+HS, First dose on Thu09/03/22 at 2345, Until Discontinu ed, Routine [facility] pantoprazol e (PROTONIX) injection 40 mg 2021-11 0 04:45: 00 Yes 40mg 40 mg, Slow IV Push, Q12H, First dose on Thu09/03/22 at 2345, Until Discontinu ed [facility] metoprolol tartrate (LOPRESSOR) tablet 50 mg 2021-11 0 04:45: 00 Yes 50mg 50 mg, Oral, BID, First dose on Thu09/03/22 at 2345, Until Discontinu ed, [facility] human 70-30 (70-30 U-100 INSULIN) 100 unit/mL (70-30) injection 35 Units 2021-11 0 04:45: 00 Yes 35U 35 Units, Subcutaneo us, BIDAC, First dose on Thu09/03/22 at 2345, Until Discontinu ed, Routine [facility] atorvastati n (LIPITOR) tablet 40 mg 2021-11 0 04:45: 00 Yes 40mg 40 mg, Oral, QHS, First dose on Thu09/03/22 at 2345, Until Discontinu ed, Routine [facility] furosemide (LASIX) injection 20 mg 2021-11 0-06 [...] Discontinu ed, Routine, Nausea and Vomiting (N/V) [facility] Sliding Scale Insulin - Lispro (HumaLOG) + Fsbg Testing 2021-11 0 04:30: 00 Yes Subcutaneo us, TID MEALS+HS, First dose on Thu09/03/22 at 2330, Until Discontinu ed, Routine [facility] nitroglycer in (NITROSTAT) sublingual tablet 0.4 mg 2021-11 22:30: 00 09-03 22:34 :00 No .4mg 0.4 mg, Sublingual , ONCE, 1 dose, On Thu09/03/22 at 1730, [place] [facility] magnesium oxide (MAG-OX 400) tablet 400 mg 04-24 01:00: 00 04-25 12:59 :00 No 400mg 400 mg, Oral, BID, 3 doses, First dose on Thu04/23/22 at 1999, Last dose on Thu04/24/22 at 1999, Routine [facility] maalox:diph enhydrAMINE :lidocaine 2 % viscous 1:1:1 ([facility]) oral suspension 15 mL 04-23 15:47: 15 Yes 15mL 15 mL, Oral, QDAILYPRN, Starting on Thu04/23/22 at 1047, Until Discontinu ed, Routine, indigestio n [facility] insulin glargine,heydi longrec.anlog (CHIOMA JO U-300 INSULIN SC) 04-23 15:15: 25 Yes inject under the skin. [facility] aspirin 81 mg chewable tablet 04-23 15:15: 25 Yes 81mg Take 81 mg by mouth daily. [facility] empaglifloz in-metformi n (SYNJARDY) 12.5-1,000 mg Tab 04-23 15:15: 25 Yes 2{tbl} Take 2 tablets by mouth 2 (two) times daily. [facility] apixaban (ELIQUIS) 5 mg tablet 04-23 15:15: 25 Yes 5mg Take 5 mg by mouth 2 (two) times daily. [facility] spironolact one 25 mg tablet 04-23 15:15: 25 Yes 25mg Take 25 mg by mouth 2 (two) times daily. [facility] KCL (KLOR-CON M20) tablet 40 mEq 04-23 14:15: 00 04-23 15:57 :00 No 40meq 40 mEq, Oral, ONCE, 1 dose, On Thu04/23/22 at 0915, Routine [facility] insulin glargine,heydi sandovalanlog (LANTUS SC) 04-23 10:54: 26 04-23 00:00 :00 No inject under the skin. [facility] sitagliptin phosphate (JANUVIA ORAL) 04-23 10:54: 26 04-23 00:00 :00 No Take by mouth. [facility] morpHINE (2 mg/mL) injection 2 mg 04-23 10:16: 57 Yes [id number] 2mg 2 mg, Slow IV Push, Q4HPRN, Starting on Thu04/23/22 at 0516, Until Discontinu ed, Routine, Pain (scale 7-10) [facility] Sliding Scale Insulin - Lispro (HumaLOG) + Fsbg Testing 04-23 03:00: 00 Yes Subcutaneo us, Q3H, First dose on Thu04/22/22 at 2200, Until Discontinu ed, Routine [facility] insulin glargine (LANTUS U-100) injection 25 Units 04-23 03:00: 00 Yes 25U 25 Units, Subcutaneo us, Q12H, First dose on Thu04/22/22 at 2200, Until Discontinu ed, Routine [facility] glucagon (GLUCAGEN DIAGNOSTIC KIT) injection 1 mg 04-23 02:55: 16 Yes 1mg 1 mg, Intramuscu lar, PRN, Starting on Thu04/22/22 at 2155, Until Discontinu ed, [place], Blood Glucose < or = 70 mg/dL and patient is unable to swallow or has mental changes. [facility] dextrose 50 % in water (D50W) injection 25 mL 04-23 02:55: 16 Yes 25mL 25 mL, Slow IV Push, PRN, Starting on Thu04/22/22 at 2155, Until Discontinu ed, [place], Blood Glucose < or = 70 mg/dL and patient is unable to swallow or has mental status changes. [facility] sucralfate 1 gram tablet 04-23 00:00: 00 05-24 04:59 :00 No [id number] 1g Take 1 tablet by mouth before meals and at bedtime for 30 days. [facility] pantoprazol e 40 mg EC tablet 04-23 00:00: 00 05-24 04:59 :00 No [id number] 40mg Take 1 tablet by mouth 2 (two) times daily for 30 days. [facility] metoprolol tartrate 50 mg tablet 04-23 00:00: 00 05-24 04:59 :00 No [id number] 50mg Take 1 tablet by mouth 2 (two) times daily for 30 days. [facility] atorvastati n (LIPITOR) 40 mg tablet 04-23 00:00: 00 05-24 04:59 :00 No [id number] 40mg Take 1 tablet by mouth at bedtime for 30 days. [facility] magnesium oxide 420 mg Tab 04-23 00:00: 00 05-09 04:59 :00 No [id number] 400mg Take 400 mg by mouth daily for 15 days. [facility] sucralfate (CARAFATE) tablet 1 g 04-22 21:30: 00 Yes 1g 1 g, Oral, AC+HS, First dose on Thu04/22/22 at 1630, Until Discontinu ed, Routine [facility] morpHINE (4 mg/mL) injection 2 mg 04-22 16:15: 00 04-22 15:15 :00 No [id number] 2mg 2 mg, Slow IV Push, ONCE, 1 dose, On Thu04/22/22 at 1115, Routine [facility] SITagliptin (JANUVIA) tablet 50 mg 04-22 14:00: 00 Yes 50mg 50 mg, Oral, DAILY, First dose on Thu04/22/22 at 0900, Until Discontinu ed [facility] aspirin chewable tablet 81 mg 04-22 14:00: 00 Yes 81mg 81 mg, Oral, DAILY, First dose on Thu04/22/22 at 0900, Until Discontinu ed, Routine [facility] metoprolol tartrate (LOPRESSOR) tablet 25 mg 04-22 13:00: 00 Yes 25mg 25 mg, Oral, BID, First dose on Thu04/22/22 at 0800, Until Discontinu ed, Routine [facility] apixaban (ELIQUIS) tablet 5 mg 04-22 13:00: 00 Yes 5mg 5 mg, Oral, BID, First dose on Thu04/22/22 at 0800, Until Discontinu ed, Routine
Indicatio ns: Non-Valvul ar Atrial Fibrillati on [facility] pantoprazol e (PROTONIX) EC tablet 40 mg 04-22 13:00: 00 Yes 40mg 40 mg, Oral, BID, First dose on Thu04/22/22 at 0800, Until Discontinu ed, Routine [facility] D5W 0.9% NaCl (NS) 1 L + KCL 40 mEq 04-22 13:00: 00 04-23 02:32 :18 No IV Infusion, at 200 mL/hr, CONTINUOUS , Starting on Thu04/22/22 at 0800, Until Thu04/22/22 at 2132, Routine [facility] ondansetron (ZOFRAN (PF)) injection 4 mg 04-22 12:18: 40 Yes 4mg 4 mg, Slow IV Push, Q6HPRN, Nausea and Vomiting (N/V), Starting on Thu04/22/22 at 0718
Do ses of ondansetro n 16 mg and above need to be administer ed via IV piggyback. For Dose >=24mg ECG monitoring is advisable.
[facility] atorvastati n (LIPITOR) tablet 40 mg 04-22 02:00: 00 Yes 40mg 40 mg, Oral, QHS, First dose on Thu04/21/22 at 2100, Until Discontinu ed, Routine [facility] pantoprazol e (PROTONIX) injection 40 mg 04-22 01:00: 00 04-22 00:00 :00 No [id number] 40mg 40 mg, Slow IV Push, ONCE, 1 dose, On Thu04/21/22 at 1999 [facility] NaCl 0.9% (NS) bolus infusion 2,000 mL 04-22 01:00: 00 04-21 23:59 :00 No [id number] 2000mL at 999 mL/hr, 2,000 mL, IV Infusion, ONCE, 1 dose, On Thu04/21/22 at 2000, [facility] ondansetron (ZOFRAN (PF)) injection 4 mg 04-22 00:30: 00 04-21 23:26 :00 No [id number] 4mg 4 mg, Slow IV Push, ONCE, 1 dose, On Thu04/21/22 at 1930, [place] [facility] morpHINE (4 mg/mL) injection 4 mg 04-22 00:30: 00 04-21 23:26 :00 No [id number] 4mg 4 mg, Slow IV Push, ONCE, 1 dose, On Thu04/21/22 at 1930, STAT [facility] D5W 0.45% NaCl (1/2NS) IV infusion 1,000 mL 04-22 00:21: 22 04-22 11:50 :31 No [id number] 1000mL at 200 mL/hr, 1,000 mL, IV Infusion, PRN - SEE KAYLEY PALOMO, Starting on Thu04/21/22 at 1921, Until Thu04/22/22 at 0650, [place] [facility] iopamidol (ISOVUE 370-500 mL) injection 120 mL 04-21 22:15: 00 04-22 00:26 :00 No [id number] 120mL 120 mL, Intravenou s, ONCE, 1 dose, On Thu04/21/22 at 1715, Routine [facility] esomeprazol e magnesium (NEXIUM ORAL) 2020-11 14:20: 21 09-30 00:00 :00 No Take by mouth. [facility] insulin glargineheydirecPresleyanlog (LANTUS SC) 2020-11 13:40: 16 Yes inject under the skin. [facility] sitagliptin phosphate (JANUVIA ORAL) 2020-11 13:40: 16 Yes Take by mouth. [facility] aspirin 81 mg chewable tablet 2020-11 13:40: 16 Yes 81mg Take 81 mg by mouth daily. [facility] pantoprazol e 40 mg EC tablet 2020-11 00:00: 00 04-23 00:00 :00 No [id number] 40mg Take 1 tablet by mouth 2 (two) times daily. [facility] ondansetron (ZOFRAN ODT) 4 mg disintegrat ing tablet 07-02 00:00: 00 Yes [id number] 4mg Take 1 tablet by mouth every 8 (eight) hours as needed for Nausea and Vomiting (N/V). [facility] sucralfate 1 gram tablet 07-02 00:00: 00 04-23 00:00 :00 No [id number] 1g Take 1 tablet by mouth before meals and at bedtime. [facility] Immunizations Ordered Immunization Name Filled Immunization [...] SARS-COV-2 COVID-19 VACCINE - (MODERNA) Unknown Completed [facility] SARS-COV-2 COVID-19 VACCINE - (MODERNA) Unknown Completed [facility] TDAP Unknown Completed [facility] Pneumococcal 15 Conjugate, PCV15 (Vaxneuvance) Unknown Completed [facility] HEP B, Adult Dosage Unknown Completed [facility] SARS-COV-2 COVID-19 VACCINE - (MODERNA) Unknown Completed [facility] SARS-COV-2 COVID-19 VACCINE - (MODERNA) Unknown Completed [facility] TDAP Unknown Completed [facility] Pneumococcal 15 Conjugate, PCV15 (Vaxneuvance) Unknown Completed [facility] HEP B, Adult Dosage Unknown Completed [facility] Vital Signs Vital Name Observation Time Observation Value Comments S ource Systolic blood pressure 2024-02-27 21:17:00 126 mm[Hg] [facility] Diastolic blood pressure 2024-02-27 21:17:00 70 mm[Hg] [facility] Heart rate 2024-02-27 21:17:00 97 /min [facility] Body temperature 2024-02-27 21:17:00 36.39 Chen [facility] Respiratory rate 2024-02-27 21:17:00 16 /min [facility] Oxygen saturation in Arterial blood by Pulse oximetry 2024-02-27 21:17:00 95 /min [facility] Body weight 2024-02-27 08:11:00 119.704 kg [facility] BMI 2024-02-27 08:11:00 41.33 kg/m2 [facility] Body height 2024-02-24 17:44:00 170.2 cm [facility] Systolic blood pressure 2023-04-17 13:42:00 124 mm[Hg] [...] External Body temperature 2022-11-12 18:00:00 37 Chen [facility] Systolic blood pressure 2022-11-12 17:00:00 113 mm[Hg] [facility] Diastolic blood pressure 2022-11-12 17:00:00 67 mm[Hg] [facility] Heart rate 2022-11-12 17:00:00 91 /min [facility] Res[facility] rate 2022-11-12 17:00:00 25 /min [facility] Oxygen saturation in Arterial blood by Pulse oximetry 2022-11-12 17:00:00 93 /min [facility] Body weight 2022-11-12 09:42:00 117.981 kg [facility] BMI 2022-11-12 09:42:00 40.74 kg/m2 [facility] Body height 2022-11-10 06:00:00 170.2 cm [facility] Systolic blood pressure 2022-11-07 17:53:00 106 mm[Hg] [facility] Diastolic blood pressure 2022-11-07 17:53:00 70 mm[Hg] [facility] Heart rate 2022-11-07 17:53:00 102 /min [facility] Body temperature 2022-11-07 17:53:00 37.22 Chen [facility] Respiratory rate 2022-11-07 17:53:00 22 /min [facility] Oxygen saturation in Arterial blood by Pulse oximetry 2022-11-07 17:53:00 95 /min [facility] Body height 2022-11-06 11:30:00 170.2 cm [facility] Body weight 2022-11-06 11:30:00 116.5 kg [facility] BMI 2022-11-06 11:30:00 40.23 kg/m2 [facility] Systolic blood pressure 2022-09-04 17:00:00 129 mm[Hg] [facility] Diastolic blood pressure 2022-09-04 17:00:00 84 mm[Hg] [facility] Heart rate 2022-09-04 17:00:00 85 /min [facility] Oxygen saturation in Arterial blood by Pulse oximetry 2022-09-04 17:00:00 94 /min [facility] Body temperature 2022-09-04 16:21:00 36.33 Chen [facility] Respiratory rate 2022-09-04 16:21:00 18 /min [facility] Body height 2022-09-03 22:04:00 170.2 cm [facility] Body weight 2022-09-03 22:04:00 122.834 kg [facility] BMI 2022-09-03 22:04:00 42.41 kg/m2 [facility] Systolic blood pressure 2022-04-23 18:00:00 109 mm[Hg] [facility] Diastolic blood pressure 2022-04-23 18:00:00 56 mm[Hg] [facility] Heart rate 2022-04-23 18:00:00 85 /min [facility] Respiratory rate 2022-04-23 18:00:00 20 /min [facility] Oxygen saturation in Arterial blood by Pulse oximetry 2022-04-23 17:00:00 97 /min [facility] Body temperature 2022-04-23 16:30:00 36.72 Chen [facility] Body height 2022-04-21 22:46:00 170.2 cm [facility] Body weight 2022-04-21 22:46:00 113.399 kg [facility] BMI 2022-04-21 22:46:00 39.16 kg/m2 [facility] Systolic blood pressure 2021-09-30 18:36:00 125 mm[Hg] [facility] Diastolic blood pressure 2021-09-30 18:36:00 81 mm[Hg] [facility] Heart rate 2021-09-30 18:36:00 120 /min [facility] Body temperature 2021-09-30 18:36:00 36.61 Chen [facility] Body height 2021-09-30 18:36:00 170.2 cm [facility] Body weight 2021-09-30 18:36:00 99.066 kg [facility] BMI 2021-09-30 18:36:00 34.21 kg/m2 [facility] Oxygen saturation in Arterial blood by Pulse oximetry 2021-09-30 18:36:00 93 /min [facility] Procedures Procedure Date / Time Performed Performing Clinician Source POCT GLUCOSE (AUTOMATED) 2024-02-27 21:18:00 Kvng Mcallister [facility] POCT GLUCOSE (AUTOMATED) 2024-02-27 16:59:00 Kvng Mcallister [facility] POCT GLUCOSE (AUTOMATED) 2024-02-27 12:24:00 Kvng Mcallister [facility] MAGNESIUM 2024-02-27 09:34:00 Ludwin La [facility] BASIC METABOLIC PANEL (NA, K, CL, CO2, GLUCOSE, BUN, CREATININE, CA) 2024-02-27 09:34:00 Ludwin La [facility] CBC WITH DIFF 2024-02-27 09:34:00 Ludwin La [facility] POCT GLUCOSE (AUTOMATED) 2024-02-27 02:45:00 Kvng Mcallister [facility] POCT GLUCOSE (AUTOMATED) 2024-02-26 21:32:00 Kvng Mcallister [facility] POCT GLUCOSE (AUTOMATED) 2024-02-26 17:05:00 Kvng Mcallister [facility] POCT GLUCOSE (AUTOMATED) 2024-02-26 12:32:00 Kvng Mcallister [facility] MAGNESIUM 2024-02-26 08:40:00 Ludwin La [facility] BASIC METABOLIC PANEL (NA, K, CL, CO2, GLUCOSE, BUN, CREATININE, CA) 2024-02-26 08:40:00 Ludwin La [facility] CBC WITH DIFF 2024-02-26 08:40:00 Ludwin La [facility] POCT GLUCOSE (AUTOMATED) 2024-02-26 01:14:00 Kvng Mcallister [facility] POCT GLUCOSE (AUTOMATED) 2024-02-25 21:08:00 Kvng Mcallister [facility] POCT GLUCOSE (AUTOMATED) 2024-02-25 16:24:00 Kvng Mcallister [facility] POCT GLUCOSE (AUTOMATED) 2024-02-25 14:10:00 Kvng Mcallister [facility] POCT GLUCOSE (AUTOMATED) 2024-02-25 13:01:00 Kvng Mcallister [facility] BASIC METABOLIC PANEL (NA, K, CL, CO2, GLUCOSE, BUN, CREATININE, CA) 2024-02-25 10:13:00 Marlene Swartz [facility] CBC WITH DIFF 2024-02-25 10:13:00 Marlene Swartz [facility] POCT GLUCOSE (AUTOMATED) 2024-02-25 01:29:00 vKng Mcallister [facility] POCT GLUCOSE (AUTOMATED) 2024-02-24 21:31:00 Kvng Mcallister [facility] POCT GLUCOSE (AUTOMATED) 2024-02-24 17:59:00 Kvng Mcallister [facility] LACTIC ACID WHOLE BLOOD 2024-02-24 15:22:00 Tomas Mcallister [facility] URINALYSIS 2024-02-24 09:46:00 [facility] CT ABDOMEN PELVIS W CONTRAST 2024-02-24 08:44:[address] [facility] HB ECG ROUTINE & RHYTHM STRIP 2024-02-24 07:34:[address] [facility] AC PANEL 21 + LACTIC ACID 2024-02-24 07:26:[address] [facility] XR CHEST 1 VW 2024-02-24 06:22:43 Anthony [facility] LIPASE 2024-02-24 06:20:00 [facility] MAGNESIUM 2024-02-24 06:20:00 [facility] TROPONIN I 2024-02-24 06:20:00 Jody Cruz [facility] COMP. METABOLIC PANEL (69563) 2024-02-24 06:20:[address] [facility] CBC WITH DIFF 2024-02-24 06:20:00 Anthony [facility] GLYCOSYLATED HEMOGLOBIN (A1C) 2024-02-24 06:20:00 Reece Flores [facility] RAPID INFLUENZA A/B 2024-02-24 06:20:00 Ba Cruz [facility] N-TERMINAL PRO-BNP 2024-02-24 06:20:[address] [facility] COVID-19 (ID NOW RAPID TESTING) 2024-02-24 06:20:[address] [facility] LAB ONLY COVID INTERPRETATION 2024-02-24 06:20:[address] [facility] POCT GLUCOSE (AUTOMATED) 2024-02-24 06:09:00 Vincent, Shinta [facility] [id number] 2023-11-10 00:00:00 [facility] REAGENT STRIP/BLOOD GLUCOSE 2023-04-17 00:00:00 Outside, Reported Maisha Moy - External TELERETINAL DIABETIC SCREENING 2023-04-02 15:16:00 MikaJohn yangElliott - External POCT GLUCOSE (AUTOMATED) 2022-11-12 17:08:00 Cole Love [facility] POCT GLUCOSE (AUTOMATED) 2022-11-12 13:30:00 Cole Love [facility] FERRITIN SERUM 2022-11-12 09:53:00 Kate [facility] HEPATIC FUNCTION PANEL ([id number]) (ALB,T.PRO,BILI T,BU/BC,ALT,AST,ALK PHOS) 2022-11-12 09:53:00 [facility]OLIC PANEL (NA, K, CL, CO2, GLUCOSE, BUN, CREATININE, CA) 2022-11-12 09:53:00 [facility]SE (AUTOMATED) 2022-11-12 02:07:00 Cole Love [facility] POCT GLUCOSE (AUTOMATED) 2022-11-11 21:59:00 Cole Love [facility] POCT GLUCOSE (AUTOMATED) 2022-11-11 17:08:00 Cole Love zeus [facility] POCT GLUCOSE (AUTOMATED) 2022-11-11 13:19:00 Cole Love zeus [facility] MAGNESIUM 2022-11-11 10:21:00 Cholo Love [facility] HEPATIC FUNCTION PANEL ([id number]) (ALB,T.PRO,BILI T,BU/BC,ALT,AST,ALK PHOS) 2022-11-11 10:21:00 [facility] BASIC METABOLIC PANEL (NA, K, CL, CO2, GLUCOSE, BUN, CREATININE, CA) 2022-11-11 10:21:00 Dawna Kaur [facility] CBC WITH DIFF 2022-11-11 10:21:00 [facility] POCT GLUCOSE (AUTOMATED) 2022-11-11 02:37:00 Cole Love [facility] POCT GLUCOSE (AUTOMATED) 2022-11-10 22:18:00 Cole Love [facility] US ABDOMEN LIMITED 2022-11-10 21:00[facility]00 [facility] 2022-11-10 19:01:00 Kate [facility] HEPATITIS B SURFACE ANTIGEN 2022-11-10 19:01:00 Kate [facility] HCV ANTIBODY 2022-11-10 19:01:[address] [facility] HEPATITIS A VIRUS ANTIBODY IGM 2022-11-10 19:01:00 Kate [facility] POCT GLUCOSE (AUTOMATED) 2022-11-10 17:06:00 Natasha [facility] MAGNESIUM 2022-11-10 15:00:00 [facility]. METABOLIC PANEL ([id number]) 2022-11-10 15:00:00 Kate [facility] POCT GLUCOSE (AUTOMATED) 2022-11-10 13:14:00 Natasha [facility] URINALYSIS 2022-11-10 03:56:00 [facility] URINE CULTURE 2022-11-10 03:56:00 Murali Zafar [facility] AC PANEL 20 + LACTIC ACID 2022-11-10 03:47:00 Murali Zafar [facility] LIPASE 2022-11-10 03:46:00 [facility] TROPONIN I 2022-11-10 03:46:00 [facility] COMP. METABOLIC PANEL ([id number]) 2022-11-10 03:46:00 uMrali Zafar [facility] CBC WITH DIFF 2022-11-10 03:46:00 Murali Zafar [facility] N-TERMINAL PRO-BNP 2022-11-10 03:46:00 Murali Zafar [facility] HB ECG ROUTINE & RHYTHM STRIP 2022-11-10 03:16:17 Murali Zafar [facility] POCT GLUCOSE (AUTOMATED) 2022-11-10 03:09:00 Kvng Zafar [facility] POCT GLUCOSE (AUTOMATED) 2022-11-10 02:59:00 Kvng Zafar [facility] CONSENT/REFUSAL FOR DIAGNOSIS AND TREATMENT 2022-11-10 02:39:20 Doctor Unassigned, [place] [facility] POCT GLUCOSE (AUTOMATED) 2022-11-07 22:01:00 Yarely Cade [facility] POCT GLUCOSE (AUTOMATED) 2022-11-07 17:28:00 Yarely Cade [facility] POCT GLUCOSE (AUTOMATED) 2022-11-07 14:16:00 Yarely Cade [facility] PHOSPHORUS 2022-11-07 11:33:00 Dar Leal [facility] BETA HYDROXY-BUTYRATE 2022-11-07 11:33:00 Zeyad Leal [facility] BASIC METABOLIC PANEL (NA, K, CL, CO2, GLUCOSE, BUN, CREATININE, CA) 2022-11-07 11:33:00 Dar Leal [facility] POCT GLUCOSE (AUTOMATED) 2022-11-07 03:32:00 Yarely Cade [facility] POCT GLUCOSE (AUTOMATED) 2022-11-06 22:56:00 Abby Palomino [facility] BETA HYDROXY-BUTYRATE 2022-11-06 20:25:00 Jose Miguel Tony [facility] BASIC METABOLIC PANEL (NA, K, CL, CO2, GLUCOSE, BUN, CREATININE, CA) 2022-11-06 20:25:00 Monae Pascual [facility] POCT GLUCOSE (AUTOMATED) 2022-11-06 16:15:00 Abyb Palomino [facility] BASIC METABOLIC PANEL (NA, K, CL, CO2, GLUCOSE, BUN, CREATININE, CA) 2022-11-06 11:53:00 Ankur [facility] MRSA / MSSA SCREEN BY PCR VIMAL 2022-11-06 11:53:00 [facility]) 2022-11-06 11:26:00 Abby Palomino [facility] POCT GLUCOSE (AUTOMATED) 2022-11-06 09:26:00 Kvng Zafar [facility] POCT GLUCOSE(AGE >30DAYS) 2022-11-06 08:15:00 Murali Zafar [facility] PHOSPHORUS 2022-11-06 07:25:00 Murali Zafar [facility] MAGNESIUM 2022-11-06 07:25:00 Murali Zafar [facility] OSMOLALITY, SERUM OR PLASMA 2022-11-06 07:25:00 Murali Zafar [facility] BETA HYDROXY-BUTYRATE 2022-11-06 07:25:00 Leif Zafar [facility] BASIC METABOLIC PANEL (NA, K, CL, CO2, GLUCOSE, BUN, CREATININE, CA) 2022-11-06 07:25:00 Murali Zafar [facility] LIPID PANEL ([id number])(TOTAL CHOLESTEROL, TRIGLYCERIDES, HDL) 2022-11-06 07:25:00 Ankur [facility] GLYCOSYLATED HEMOGLOBIN (A1C) 2022-11-06 07:25:00 Murali Zafar [facility] POCT GLUCOSE(AGE >30DAYS) 2022-11-06 06:58:00 Murali Zafar [facility] POCT GLUCOSE (AUTOMATED) 2022-11-06 06:55:00 Kvng Zafar [facility] CRITICAL CARE 2022-11-06 06:50:18 Murali Zafar [facility] AC PANEL 20 + LACTIC ACID 2022-11-06 06:14:00 Murali Zafar [facility] CT ABDOMEN PELVIS W CONTRAST 2022-11-06 06:05:19 Murali Zafar [facility] CT CHEST PULMONARY ANGIOGRAM 2022-11-06 06:05:19 Murali Zafar [facility] BLOOD CULTURE SCREEN 2022-11-06 04:51:[address] [facility] LACTIC ACID WHOLE BLOOD 2022-11-06 04:50:00 Do araceli Zafar [facility] XR CHEST 1 VW 2022-11-06 04:21:53 Murali Zafar [facility] LIPASE 2022-11-06 04:08:00 [facility] TROPONIN I 2022-11-06 04:08:00 [facility] COMP. METABOLIC PANEL ([id number]) 2022-11-06 04:08:00 Murali Zafar [facility] CBC WITH DIFF 2022-11-06 04:08:00 Murali Zafar [facility] URINALYSIS 2022-11-06 04:08:00 [facility] URINE CULTURE 2022-11-06 04:08:00 Murali Zafar [facility] RAPID INFLUENZA A/B 2022-11-06 04:08:00 Emma Zafar [facility] N-TERMINAL PRO-BNP 2022-11-06 04:08:00 Murali Zafar [facility] COVID-19 (ID NOW RAPID TESTING) 2022-11-06 04:08:00 Murali Zafar [facility] LAB ONLY COVID INTERPRETATION 2022-11-06 04:08:00 Murali Zafar [facility] CONSENT/REFUSAL FOR DIAGNOSIS AND TREATMENT 2022-11-06 03:03:01 Doctor Unassigned, [place] [facility] HOSPITAL ADMISSION 2022-11-05 06:01:00 Doctor Un assigned, [place] [facility] POCT GLUCOSE (AUTOMATED) 2022-09-04 16:52:00 Kvng Mcallister [facility] US GALL BLADDER 2022-09-04 15:00:00 Jaxon Thomas [facility] POCT GLUCOSE (AUTOMATED) 2022-09-04 12:51:00 Kvng Mcallister [facility] TROPONIN I 2022-09-04 11:06:00 Jaxon Thomas [facility] COMP. METABOLIC PANEL ([id number]) 2022-09-04 11:06:00 Lesley, [facility] ACUTE CARE VENOUS BLOOD GAS 2022-09-04 11:06:00 Lesley [facility] CBC WITH DIFF 2022-09-04 11:06:00 Jaxon Thomas [facility] N-TERMINAL PRO-BNP 2022-09-04 11:06:00 Lesley [facility] HCV ANTIBODY 2022-09-04 05:55:00 Lesley kristin [facility] HAV ANTIBODY (IGG AND IGM) 2022-09-04 05:55:00 Lesley [facility] PROCALCITONIN 2022-09-04 05:55:00 Jaxon Thomas [facility] PHOSPHORUS 2022-09-04 05:55:00 Lesley [facility] URIC ACID 2022-09-04 05:55:00 Jaxon Thomas [facility] MAGNESIUM 2022-09-04 05:55:00 Lesley [facility] TROPONIN I 2022-09-04 05:55:00 Lesley [facility] THYROID STIMULATING HORMONE 2022-09-04 05:55:00 Lesley [facility] LIPID PANEL ([id number])(TOTAL CHOLESTEROL, TRIGLYCERIDES, HDL) 2022-09-04 05:55:00 Lesley [facility] SEDIMENTATION RATE 2022-09-04 05:55:00 Lesley [facility] PROTHROMBIN TIME / INR 2022-09-04 05:55:00 Lesley [facility] HEPATITIS B SURFACE ANTIBODY 2022-09-04 05:55:00 Lesley [facility] HEPATITIS B SURFACE ANTIGEN 2022-09-04 05:55:00 Lesley [facility] POCT GLUCOSE (AUTOMATED) 2022-09-04 05:31:00 [facility] XR CHEST 1 VW 2022-09-03 22:42:00 Murali Zafar [facility] LIPASE 2022-09-03 22:26:00 [facility] TROPONIN I 2022-09-03 22:26:00 Murali Zafar [facility] COMP. METABOLIC PANEL ([id number]) 2022-09-03 22:26:00 Murali Zafar [facility] CBC WITH DIFF 2022-09-03 22:26:00 Murali Zafar [facility] GLYCOSYLATED HEMOGLOBIN (A1C) 2022-09-03 22:26:00 Jaxon Thomas [facility] ACTIVATED PARTIAL THRMPLAS KAR 2022-09-03 22:26:00 Murali Zafar [facility] N-TERMINAL PRO-BNP 2022-09-03 22:26:00 Andrade [facility] NOTICE OF PRIVACY PRACTICES 2022-09-03 21:52:55 Doctor Unassigned, [place] [facility] CONSENT/REFUSAL FOR DIAGNOSIS AND TREATMENT 2022-09-03 21:52:24 Doctor Unassigned, [place] [facility] POCT GLUCOSE (AUTOMATED) 2022-04-23 18:58:00 Cole Love [facility] POCT GLUCOSE (AUTOMATED) 2022-04-23 15:35:00 Cole Love [facility] POCT GLUCOSE (AUTOMATED) 2022-04-23 12:41:00 Cole Love [facility] POCT GLUCOSE (AUTOMATED) 2022-04-23 11:33:00 Cole Love [facility] MAGNESIUM 2022-04-23 09:33:00 Sachin Mcallister [facility] BASIC METABOLIC PANEL (NA, K, CL, CO2, GLUCOSE, BUN, CREATININE, CA) 2022-04-23 09:33:00 Sachin Mcallister [facility] POCT GLUCOSE (AUTOMATED) 2022-04-23 09:33:00 Cole Love [facility] POCT GLUCOSE (AUTOMATED) 2022-04-23 07:17:00 Cole Love [facility] POCT GLUCOSE (AUTOMATED) 2022-04-23 05:25:00 Cole Love [facility] POCT GLUCOSE (AUTOMATED) 2022-04-23 04:07:00 Cole Love [facility] POCT GLUCOSE (AUTOMATED) 2022-04-23 03:09:00 Cole Love [facility] POCT GLUCOSE (AUTOMATED) 2022-04-23 02:22:00 Cole Love [facility] BASIC METABOLIC PANEL (NA, K, CL, CO2, GLUCOSE, BUN, CREATININE, CA) 2022-04-23 01:15:00 Annette Holland [facility] POCT GLUCOSE (AUTOMATED) 2022-04-23 01:15:00 Cole Love [facility] POCT GLUCOSE (AUTOMATED) 2022-04-23 00:02:00 Cole Love [facility] POCT GLUCOSE (AUTOMATED) 2022-04-22 23:01:00 Kvng Mcallister [facility] POCT GLUCOSE (AUTOMATED) 2022-04-22 22:05:00 Kvng Mcallister [facility] BASIC METABOLIC PANEL (NA, K, CL, CO2, GLUCOSE, BUN, CREATININE, CA) 2022-04-22 21:05:00 Annette Holland [facility] POCT GLUCOSE (AUTOMATED) 2022-04-22 21:02:00 Kvng Mcallister [facility] POCT GLUCOSE (AUTOMATED) 2022-04-22 19:45:00 Kvng Mcallister [facility] POCT GLUCOSE (AUTOMATED) 2022-04-22 18:42:00 Kvng Mcallister [facility] POCT GLUCOSE (AUTOMATED) 2022-04-22 17:22:00 Cole Love [facility] POCT GLUCOSE (AUTOMATED) 2022-04-22 16:05:00 Cole Love [facility] TROPONIN I 2022-04-22 15:33:00 [facility]OLIC PANEL (NA, K, CL, CO2, GLUCOSE, BUN, CREATININE, CA) 2022-04-22 15:33:00 Annette Holland [facility] CBC WITH DIFF 2022-04-22 15:33:00 Cholo Love [facility] POCT GLUCOSE (AUTOMATED) 2022-04-22 14:25:00 Cole Love [facility] POCT GLUCOSE (AUTOMATED) 2022-04-22 13:39:00 Cole Love [facility] POCT GLUCOSE (AUTOMATED) 2022-04-22 12:26:00 Cole Love [facility] POCT GLUCOSE (AUTOMATED) 2022-04-22 11:30:00 Cole Love [facility] BASIC METABOLIC PANEL (NA, K, CL, CO2, GLUCOSE, BUN, CREATININE, CA) 2022-04-22 10:51:00 Annette Holland [facility] POCT GLUCOSE (AUTOMATED) 2022-04-22 10:47:00 Cole Love [facility] POCT GLUCOSE (AUTOMATED) 2022-04-22 10:44:00 Cole Love [facility] POCT GLUCOSE (AUTOMATED) 2022-04-22 09:32:00 Cole Love [facility] POCT GLUCOSE (AUTOMATED) 2022-04-22 08:34:00 Cole Love [facility] BASIC METABOLIC PANEL (NA, K, CL, CO2, GLUCOSE, BUN, CREATININE, CA) 2022-04-22 07:39:00 Annette Holland [facility] POCT GLUCOSE (AUTOMATED) 2022-04-22 07:33:00 Cole Love [facility] POCT GLUCOSE (AUTOMATED) 2022-04-22 06:29:00 Cole Love [facility] BASIC METABOLIC PANEL (NA, K, CL, CO2, GLUCOSE, BUN, CREATININE, CA) 2022-04-22 05:30:00 Annette Holland [facility] POCT GLUCOSE (AUTOMATED) 2022-04-22 05:29:00 Cole Love [facility] POCT GLUCOSE (AUTOMATED) 2022-04-22 04:32:00 Cole Love [facility] POCT GLUCOSE (AUTOMATED) 2022-04-22 03:40:00 Cole Love [facility] MRSA / MSSA SCREEN BY VIMAL ROBERT 2022-04-22 03:30:00 Cholo Love [facility] LACTIC ACID WHOLE BLOOD 2022-04-22 03:09:00 Alexandru Love [facility] POCT GLUCOSE (AUTOMATED) 2022-04-22 02:14:00 Cole Love [facility] COVID-19 (ID NOW RAPID TESTING) 2022-04-22 01:25[facility]00 [facility]PRETATION 2022-04-22 01:25:00 [facility]yler [facility] URINALYSIS 2022-04-22 01:23:00 Skyler [facility] BASIC METABOLIC PANEL (NA, K, CL, CO2, GLUCOSE, BUN, CREATININE, CA) 2022-04-22 01:14:00 [facility] OSMOLALITY, SERUM OR PLASMA 2022-04-22 01:11:00 Sk[facility] BETA HYDROXY-BUTYRATE 2022-04-22 01:11[facility]ATED) 2022-04-22 01:08:00 Cole Love [facility] CT ABDOMEN PELVIS W CONTRAST 2022-04-22 00:25:33 Skyler [facility] XR CHEST 1 VW 2022-04-22 00:18:00 Annette Holland [facility] AC PANEL 21 + LACTIC ACID 2022-04-22 00:04:00 Sk[facility] URINALYSIS 2022-04-21 23:11:00 [facility] 2022-04-21 23:05:00 [facility] LIP[facility] 2022-04-21 23:05:00 [facility] MAGN[facility]UM 2022-04-21 23:05:00 [facility] TROPONIN I 2022-04-21 23:05:00 Skyler [facility] COMP. METABOLIC PANEL ([id number]) 2022-04-21 23:05:00 Annette Holland [facility] CBC WITH DIFF 2022-04-21 23:05:00 [facility] GLYCOSYLATED HEMOGLOBIN (A1C) 2022-04-21 23:05:00 Annette Holland [facility] PROTHROMBIN TIME / INR 2022-04-21 23:05:00 Haylee Holland [facility] N-TERMINAL PRO-BNP 2022-04-21 23:05:00 Nelly Holland [facility] HB ECG ROUTINE & RHYTHM STRIP 2022-04-21 22:57:52 Annette Holland [facility] CONSENT/REFUSAL FOR DIAGNOSIS AND TREATMENT 2022-04-21 22:36:06 Doctor Unassigned, [place] [facility] NOTICE OF PRIVACY PRACTICES 2022-04-21 22:34:32 Doctor Unassigned, [place] [facility] Encounters Start Date/Time End Date/Time Encounter Type Admission Type Attending [facility] Facility Care Department Encounter ID Source 2024-03-09 00:00:00 2024-03-09 00:00:00 Outpatient MAISHA EVASN [id number] [facility] 2024-03-03 00:00:00 2024-03-03 00:00:00 Outpatient MAISHA EVANS [id number] [facility] 2024-03-03 00:00:00 2024-03-03 00:00:00 Outpatient MAISHA EVANS [id number] [facility] 2024-02-29 00:00:00 2024-02-29 00:00:00 Outpatient MAISHA EVANS [id number] [facility] 2024-02-29 00:00:00 2024-02-29 00:00:00 Transition of Care [place] [id number] [facility] 2024-02-24 01:01:00 2024-02-27 17:45:00 Inpatient SACHIN [facility] [id number] [facility] 2024-02-24 01:01:00 2024-02-27 17:45:00 Hospital Encounter AnthonyJody, Sachin George [facility] [id number] [facility] 2024-02-26 00:00:00 2024-02-26 00:00:00 Outpatient MAISHA EVANS [id number] [facility] 2024-01-20 13:37:45 2024-01-20 13:37:45 Outpatient [facility] [id number] [place] [address] [place] 2023-11-18 09:30:00 2023-11-18 09:30:00 Outpatient WENDY MORENO [id number] [facility] 2023-11-10 10:33:00 2023-11-17 19:30:00 Inpatient Jeremias Hall HCABM INTE.02 [id number] [facility] 2023-11-11 09:56:00 2023-11-11 09:56:00 Outpatient Jeremias Ibarra HCACL LABO [id number] [facility] 2023-11-11 00:00:00 2023-11-11 00:00:00 Outpatient MAISHA EVANS [id number] [facility] 2023-11-10 15:15:00 2023-11-10 15:15:00 Outpatient WENDY MORENO [id number] [facility] 2023-11-06 00:00:00 2023-11-06 00:00:00 Outpatient MAISHA EVANS [id number] [facility] 2023-10-27 00:00:00 2023-10-27 00:00:00 Outpatient MAISHA EVANS [id number] [facility] 2023-09-24 00:00:00 2023-09-24 00:00:00 Outpatient JOHN BECKFORD [id number] [facility] 2023-08-07 15:15:00 2023-08-07 15:15:00 Outpatient WENDY MORENO MAISHA EVANS [id number] [facility] 2023-07-31 16:45:00 2023-07-31 16:45:00 Outpatient WENDY MORENO MAISHA EVANS [id number] [facility] 2023-06-26 14:40:00 2023-06-26 14:40:00 Outpatient LYUBOV FERNÁNDEZ MAISHA EVANS [id number] [facility] 2023-05-14 00:00:00 2023-05-14 00:00:00 Outpatient MD MAISHA MEADE [id number] [facility] 2023-04-23 16:00:00 2023-04-23 16:00:00 Outpatient ROHINI CHAMBERS MAISHA EVANS [id number] [facility] 2023-04-23 13:30:00 2023-04-23 13:30:00 Outpatient MIKATyreseJOHN [id number] [facility] 2023-04-21 08:00:00 2023-04-21 08:00:00 Outpatient MARCELLE ZHU [id number] [facility] 2023-04-17 09:15:00 2023-04-17 09:15:00 Outpatient WENDY MORENO MAISHA EVANS [id number] [facility] 2023-04-16 00:00:00 2023-04-16 00:00:00 Outpatient MD MAISHA MEADE [id number] [facility] 2023-04-14 00:00:00 2023-04-14 00:00:00 Outpatient MARCELLE ZHU [id number] [facility] 2023-04-10 00:00:00 2023-04-10 00:00:00 Outpatient MARCELLE ZHU [id number] [facility] 2023-04-09 00:00:00 2023-04-09 00:00:00 Outpatient MARCELLE ZHU [id number] [facility] 2023-04-08 08:00:2023-04-08 08:00:00 Outpatient MARCELLE ZHU MAISHA EVANS [id number] [facility] 2023-04-08 00:00:00 2023-04-08 00:00:00 Outpatient MAISHA RIVERS [id number] [facility] 2023-04-08 00:00:00 2023-04-08 00:00:00 Outpatient WENDY MORENO MIASHA EVANS [id number] [facility] 2023-04-08 00:00:00 2023-04-08 00:00:00 Outpatient RADHA GAMINO MAISHA EVANS [id number] [facility] 2023-04-07 00:00:00 2023-04-07 00:00:00 Outpatient MIKATyreseJOHN [id number] [facility] 2023-04-02 10:20:00 2023-04-02 10:20:00 Outpatient YINKA MAISHA EVANS [id number] [facility] 2023-04-02 09:00:00 2023-04-02 09:00:00 Outpatient JACOBJOHN MEHTA MAISHA EVANS [id number] [facility] 2023-04-02 00:00:00 2023-04-02 00:00:00 Outpatient MERIABBYAKBAR MAISHA EVANS [id number] [facility] 2022-11-13 00:00:00 2022-11-13 00:00:00 Transition of Care Florence Botello ..840.114 350.1.13.10 4.2.7.2.686 [id number] [facility] 2022-11-09 21:02:00 2022-11-12 15:36:00 Inpatient X CHOLO [facility] [id number] [facility] 2022-11-09 21:02:00 2022-11-12 15:36:00 Hospital Encounter Murali Zafar [facility], Jelani WIREGINO [facility] ..840.114 350.1.13.10 4.2.7.2.686 [id number] [facility] 2022-11-12 00:00:00 2022-11-12 00:00:00 Telephone Horace Natachay [facility] 1.2.840.114 350.1.13.10 4.2.7.2.686 [id number] [facility] 2022-11-10 00:00:00 2022-11-10 00:00:00 Transition of Care Florence Botello 1.2.840.114 350.1.13.10 4.2.7.2.686 [id number] [facility] 2022-11-05 21:27:00 2022-11-07 17:37:00 Inpatient JON [facility] [id number] [facility] 2022-11-05 21:27:00 2022-11-07 17:37:00 Hospital Encounter [facility]ural[facility] 1.2.840.114 350.1.13.10 4.2.7.2.686 [id number] [facility] 2022-10-31 13:11:41 2022-10-31 13:11:41 Outpatient [facility] [id number] Ron Alejandre 2022-09-24 08:23:00 2022-09-24 08:23:00 Outpatient MARQUES Villaseñorbeverley Nataliapawel [facility] [id number] [facility] 2022-09-08 00:00:00 2022-09-08 00:00:00 Outpatient JAXON MONIQUE [facility] [id number] [facility] 2022-09-03 17:08:00 2022-09-04 13:45:00 Outpatient JAI [facility] [id number] [facility] 2022-09-03 17:08:00 2022-09-04 13:45:00 Emergency Murali Zafar David Abdullah, Yaman [facility] 1.840.114 350.1.13.10 4.2.7.2.686 [id number] [facility] 2022-08-20 19:28:00 2022-08-20 19:28:00 Outpatient EM Sang Rey [facility] [id number] [facility] 2022-04-24 00:00:00 2022-04-24 00:00:00 Transition of Care Rosmery Florence MORRIS 1.840.114 350.1.13.10 4.2.7.2.686 [id number] [facility] 2022-04-21 17:49:00 2022-04-23 15:15:00 Inpatient Mj SACHIN [facility] [id number] [facility] 2022-04-21 17:49:00 2022-04-23 15:15:00 Hospital Encounter Annette Holland, Sachin Brush [facility] 1.840.114 350.1.13.10 4.2.7.2.686 [id number] [facility] 2021-12-24 00:00:00 2021-12-24 00:00:00 Outpatient [facility] PIJFIFFDTZ 5 [facility] 2021-09-30 14:00:00 2021-09-30 14:00:00 Outpatient GERSON PISANO [facility] [id number] [facility] 2021-09-30 13:25:55 2021-09-30 13:55:55 Office Visit Dustin Cervantes Joseph Marc [facility] 1.84.114 350.1.13.10 4.2.7.2.686 [id number] [facility] 2021-09-30 00:00:00 2021-09-30 00:00:00 Orders Only Doctor Unassigned, [place] [facility] 1.2.840.114 350.1.13.10 4.2.7.2.686 [id number] [facility] 2021-08-09 00:00:00 2021-08-09 00:00:00 Orders Only Doctor Unassigned, [place] [facility] 1.2.840.114 350.1.13.10 4.2.7.2.686 [id number] [facility] 2021-07-02 15:02:00 2021-07-02 21:52:00 Emergency Marlene Taylor [facility] 1.2.840.114 350.1.13.10 4.2.7.2.686 [id number] [facility] 2021-07-02 14:36:00 2021-07-02 14:36:00 Emergency X [facility] ERT [id number] [facility] Results Test Description Test Time Test Comments Results Result Co mments Source [facility] GLUCOSE (AUTOMATED)2024-02-27 17:00:09* Test Item Value Reference Range Interpretation Comme nts POCT GLU (test code = 6134614576) 178 mg/dL 70-110 H Lab Interpretation (test cod e = 47882-5) Abnormal [facility] GLUCOSE (AUTOMATED)2024-02-27 12:26:11* Test Item Value Reference Range Interpretation Comme nts POCT GLU (test code = 0216587545) 149 mg/dL 70-110 H Lab Interpretation (test cod e = 71573-8) Abnormal [facility] GLUCOSE (AUTOMATED)2024-02-27 02:46:57* Test Item Value Reference Range Interpretation Comme nts POCT GLU (test code = 7445631791) 193 mg/dL 70-110 H Lab Interpretation (test cod e = 05231-1) Abnormal [facility] GLUCOSE (AUTOMATED)2024-02-26 21:33:27* Test Item Value Reference Range Interpretation Comme nts POCT GLU (test code = 7892779642) 167 mg/dL 70-110 H Lab Interpretation (test cod e = 78238-5) Abnormal [facility] GLUCOSE (AUTOMATED)2024-02-26 17:06:58* Test Item Value Reference Range Interpretation Comme nts POCT GLU (test code = 5363182752) 176 mg/dL 70-110 H Lab Interpretation (test cod e = 10581-1) Abnormal [facility] GLUCOSE (AUTOMATED)2024-02-26 12:35:03* Test Item Value Reference Range Interpretation Comme nts POCT GLU (test code = 8583948613) 167 mg/dL 70-110 H Lab Interpretation (test cod e = 51310-3) Abnormal [facility] GLUCOSE (AUTOMATED)2024-02-26 01:15:17* Test Item Value Reference Range Interpretation Comme nts POCT GLU (test code = 0897954921) 193 mg/dL 70-110 H Lab Interpretation (test cod e = 90046-7) Abnormal [facility] GLUCOSE (AUTOMATED)2024-02-25 21:10:00* Test Item Value Reference Range Interpretation Comme nts POCT GLU (test code = 7409514864) 202 mg/dL 70-110 H Lab Interpretation (test cod e = 32653-6) Abnormal [facility] GLUCOSE (AUTOMATED)2024-02-25 16:27:31* Test Item Value Reference Range Interpretation Comme nts POCT GLU (test code = 9367857174) 185 mg/dL 70-110 H Lab Interpretation (test cod e = 98863-9) Abnormal [facility] GLUCOSE (AUTOMATED)2024-02-25 14:21:04* Test Item Value Reference Range Interpretation Comme nts POCT GLU (test code = 8398508306) 244 mg/dL 70-110 H Lab Interpretation (test cod e = 58035-5) Abnormal [facility] GLUCOSE (AUTOMATED)2024-02-25 13:02:39* Test Item Value Reference Range Interpretation Comme nts POCT GLU (test code = 2442935402) 199 mg/dL 70-110 H Lab Interpretation (test cod e = 51740-8) Abnormal [facility] Metabolic Panel (NA, K, CL, CO2, GLUCOSE, BUN, CREATININE, CA)2024-02-25 11:08:17* Test Item Value Reference Range Interpretation Comme nts NA (test code = 9768294792) 132 mmol/L 135-145 L K (test code = 0083295191) 3.2 mmol/L 3.5-5.0 L CL (test code = 3860356698) 98 mmol/L 98-108 CO2 TOTAL (test code = 9261114694) 25 mmol/L 23-31 AGAP (test code = 5208957841) 9 2-16 BUN (test code = 9362955621) 5 mg/dL 7-23 L GLUCOSE (test code = 5200865364) 206 mg/dL 70-110 H CREATININE (test code = 2160-0) 0.83 mg/dL 0.60-1.25 CALCIUM (test code = 8873977045) 8.8 mg/dL 8.6-10.6 eGFR (test code = 51472-7) 105.3 mL/min/1.73m2 CKD-EPI eGFR (2020). Assuming creatinine has been stable day-to-day for at least three months, the eGFR indicates Category G1 (>= 90 mL/min/1.73 m2) Lab Interpretation (test code = 42877-1) Abnormal [facility] with [id number] 10:41:51* Test Item Value Reference Range Interpretation [...] 33.4 g/dL 31.2-35.0 RDW-SD (test code = 37333-8) 39.8 fL 38.5-51.6 RDW-CV (test code = 788-0) 12.5 % 12.1-15.4 PLT (test code = 777-3) 252 150-328 MPV (test code = 69967-4) 9.1 fL 9.8-13.0 L NRBC/100 WBC (test code = 4277832810) 0.0 0.0-10.0 NRBC x10^3 (test code = 6388740719) See_Comment [Automated messa ge] The system which generated this result transmitted reference range: 10*3/?L. The reference range was not used to interpret this result as normal/abnormal. GRAN MAT (NEUT) % (test code = 770-8) 54.8 % IMM GRAN % (test code = 2231987816) 0.20 % LYMPH % (test code = 736-9) 27.5 % MONO % (test code = 5905-5) 12.4 % EOS % (test code = 713-8) 4.5 % BASO % (test code = 706-2) 0.6 % GRAN MAT x10^3(ANC) (test code = 9709047624) 3.50 10*3/uL 1.99-6.95 IMM GRAN x10^3 (test code = 9851443001) 0.00-0.06 LYMPH x10^3 (test code = 731-0) 1.76 10*3/uL 1.09-3.23 MONO x10^3 (test code = 742-7) 0.79 10*3/uL 0.36-1.02 EOS x10^3 (test code = 711-2) 0.29 10*3/uL 0.06-0.53 BASO x10^3 (test code = 704-7) 0.04 10*3/uL 0.01-0.09 Lab Interpretation (test code = 39830-2) Abnormal [facility] GLUCOSE (AUTOMATED)2024-02-25 01:30:42* Test Item Value Reference Range Interpretation Comme [facility] POCT GLU (test code = 0270761998) 203 mg/dL 70-110 H Lab Interpretation (test cod e = 99478-0) Abnormal [facility] GLUCOSE (AUTOMATED)2024-02-24 21:33:19* Test Item Value Reference Range Interpretation Comme [facility] POCT GLU (test code = 5130445571) 198 mg/dL 70-110 H Lab Interpretation (test cod e = 63828-4) [facility] 18:00:37* Test Item Value Reference Range Interpretation Comme nts POCT GLU (test code = 3215525812) 220 mg/dL 70-110 H Lab Interpretation (test cod e = 11429-9) Abnormal [facility] CenterL[facility] Whole [id number] 15:27:25* Test Item Value Reference Range Interpretation Comme nts LACTIC ACID (test code = 5516381208) 1.62 mmol/L 0.50-2.20 Lab Interpretation (test cod e = 84529-9) Normal [facility] Center[facility]cosylated Hemoglobin (A1C)2024-02-24 15:25:42* Test Item Value Reference Range Interpretation Comme nts HGB A1C (test code = 4548-4) 11.5 % 4.0-5.7 H ZULEIMA (test code = ZULEIMA) Reference RangesNormal: <5.7%Prediabetes: 5.7 - 6.4%Diabetes: > 6.5% Lab Interpretation (test code = 29105-6) Abnormal [facility] ABDOMEN PELVIS W [id number] 13:02:45EXAM: CT ABDOMEN AND PELVIS WITH CONTRAST [...] TISSUES: No suspicious lytic or sclerotic bony lesions.[facility] 1 [id number] 12:55:45EXAM: XR CHEST 1 VW COMPARISON: Chest radiograph 11/05/2022 HISTORY: weakness FINDINGS: Lungs: The lungs are clear. and well-expanded. No pleural abnormalities. Heart/Mediastinum: The cardiomediastinal silhouette is normal in sizeaccounting for technique. Bones: No osseous lesions are detected. The soft tissues appear normalUn[facility] TylerN[facility] Pro-Bnp 2024-02-24 08:34:21* Test Item Value Reference Range Interpretation Comme [facility] NT-proBNP (test code = 99181-2) 21 pg/mL <=125 Lab Interpretation (test cod e = 18527-0) Normal [facility] CenterTroponin [id number] 07:37:54* Test Item Value Reference Range Interpretation Comme [facility] TROPONIN I (test code = 5624768471) 0.005 ng/mL <=0.034 ZULEIMA (test code = [...] of biotin. Lab Interpretation (test code = 93767-6) Normal [facility] Center[facility] Panel 21 + Lactic [id number] 07:31:17* Test Item Value Reference Range Interpretation Comme nts PH (test code = 4199609437) 7.40 7.32-7.42 PCO2 SAKINA (test code = 7479335437) 45 41-51 PO2 SAKINA (test code = 3268326205) 33 25-40 HCO3 SAKINA (test code = 8392088570) 27 24-28 AC VBE(BEAKER) (test code = 3007196138) 1.7 mEq/L THB SAKINA (test code = 1349936530) 14.3 g/dL 13.5-18.0 %O2HB SAKINA (test code = 7714756367) 63.8 % 52.0-63.0 H %COHB SAKINA (test code = 8392817227) 0.4 % 0.0-1.5 %METHB SAKINA (test code = 7301598656) 0.0 % 0.4-1.5 L VOL%O2 SAKINA (test code = 8936011767) 12.8 % 6.0-12.0 H NA (test code = 7512437956) 133 mmol/L 135-145 L K+ (test code = 0140577495) 3.1 mmol/L 3.5-5.0 L AC CA IONZ (test code = 0753712780) 4.80 mg/dL 4.50-5.30 GLUCOSE (test code = 5218770169) 235 mg/dL 70-110 H LACTIC ACID (test code = 3960996832) 2.74 mmol/L 0.50-2.20 H Lab Interpretation (test cod e = 22886-5) Abnormal [facility] CenterMagnesium2024-03-27 07:26:35* Test Item Value Reference Range Interpretation Comme nts MAGNESIUM (test code = 1690410234) 2.0 mg/dL 1.7-2.4 Lab Interpretation (test cod e = 73118-7) Normal [facility] CenterComplete Metabolic [id number] 07:26:15* Test Item Value Reference Range Interpretation Comme nts NA (test code = 5893619995) 132 mmol/L 135-145 L K (test code = 3967159659) 3.1 mmol/L 3.5-5.0 L CL (test code = 5395126606) 94 mmol/L 98-108 L CO2 TOTAL (test code = 0362541896) 26 mmol/L 23-31 AGAP (test code = 7540874114) 12 2-16 BUN (test code = 6690920836) 7 mg/dL 7-23 GLUCOSE (test code = 7062873394) 235 mg/dL 70-110 H CREATININE (test code = 2160-0) 1.06 mg/dL 0.60-1.25 TOTAL BILI (test code = 8946359704) 0.9 mg/dL 0.1-1.1 CALCIUM (test code = 9314893174) 9.5 mg/dL 8.6-10.6 T PROTEIN (test code = 5396891622) 7.7 g/dL 6.3-8.2 ALBUMIN (test code = 9432144984) 4.1 g/dL 3.5-5.0 ALK PHOS (test code = 2153531348) 113 U/L 34-122 ALTv (test code = 1742-6) 171 U/L 5-50 H AST(SGOT) (test code = 7786508077) 102 U/L 13-40 H eGFR (test code = 67130-3) 84.4 mL/min/1.73m2 CKD-EPI eGFR (2020). Assuming creatinine has been stable day-to-day for at least three months, the eGFR indicates Category G2 (60 - 89 mL/min/1.73 m2) Lab Interpretation (test code = 31982-0) Abnormal [facility] CenterLipase, [id number] 07:26:15* Test Item Value Reference Range Interpretation Comme nts LIPASE (test code = 6818625116) 82 U/L 0-220 Lab Interpretation (test cod e = 56659-3) Normal [facility] CenterCBC with Vsznnfudinjd8706-57-55 07:10:13* Test Item Value Reference Range Interpretation [...] 33.6 g/dL 31.2-35.0 RDW-SD (test code = 69588-2) 39.2 fL 38.5-51.6 RDW-CV (test code = 788-0) 12.7 % 12.1-15.4 PLT (test code = 777-3) 363 150-328 H MPV (test code = 33687-0) 9.2 fL 9.8-13.0 L NRBC/100 WBC (test code = 3472884444) 0.0 0.0-10.0 NRBC x10^3 (test code = 9876057567) See_Comment [Automated messa ge] The system which generated this result transmitted reference range: 10*3/?L. The reference range was not used to interpret this result as normal/abnormal. GRAN MAT (NEUT) % (test code = 770-8) 46.3 % IMM GRAN % (test code = 5488285917) 0.30 % LYMPH % (test code = 736-9) 38.2 % MONO % (test code = 5905-5) 10.5 % EOS % (test code = 713-8) 3.9 % BASO % (test code = 706-2) 0.8 % GRAN MAT x10^3(ANC) (test code = 3757328787) 3.49 10*3/uL 1.99-6.95 IMM GRAN x10^3 (test code = 5781179348) 0.00-0.06 LYMPH x10^3 (test code = 731-0) 2.88 10*3/uL 1.09-3.23 MONO x10^3 (test code = 742-7) 0.79 10*3/uL 0.36-1.02 EOS x10^3 (test code = 711-2) 0.29 10*3/uL 0.06-0.53 BASO x10^3 (test code = 704-7) 0.06 10*3/uL 0.01-0.09 Lab Interpretation (test code = 83843-6) Abnormal [facility] GLUCOSE (AUTOMATED)2024-02-24 06:11:01* Test Item Value Reference Range Interpretation Comme nts POCT GLU (test code = 4232902583) 227 mg/dL 70-110 H Lab Interpretation (test cod e = 52765-2) Abnormal [facility] CenterGLUBED2023-12-19 16:12:00* Test Item Value Reference Range Interpretation Comme nts GLUBED (test code = GLUBED) 237 mg/dL 74-106 H Performed by cer tified roll press operator at [facility] VUKFRT2416-26-51 11:26:00* Test Item Value Reference Range Interpretation Comme nts GLUBED (test code = GLUBED) 259 mg/dL 74-106 H Performed by cer tified roll press operator at [facility] [id number] 06:28:00* Test Item Value Reference Range Interpretation Comme nts GLUBED (test code = GLUBED) 191 mg/dL 74-106 H Performed by cer tified roll press operator at [facility] SSAEUA9795-73-46 05:29:00* Test Item Value Reference Range Interpretation Comme nts GLUBED (test code = GLUBED) 212 mg/dL 74-106 H Performed by cer tified roll press operator at [facility] [id number] 00:12:00* Test Item Value Reference Range Interpretation Comme nts GLUBED (test code = GLUBED) 237 mg/dL 74-106 H Performed by cer tified roll press operator at [facility] [id number] 18:02:00* Test Item Value Reference Range Interpretation Comme nts GLUBED (test code = GLUBED) 261 mg/dL 74-106 H Performed by cer tified roll press operator at [facility] PAQIAS6648-89-74 12:13:00* Test Item Value Reference Range Interpretation Comme nts GLUBED (test code = GLUBED) 212 mg/dL 74-106 H Performed by cer tified roll press operator at [facility] [id number] 06:14:00* Test Item Value Reference Range Interpretation Comme nts GLUBED (test code = GLUBED) 259 mg/dL 74-106 H Performed by cer tified roll press operator at [facility] BASIC METABOLIC [id number] 05:34:00* Test Item Value Reference Range Interpretation [...] code = CA) 8.6 mg/dL 8.5-10.1 N [id number] 00:21:00* Test Item Value Reference Range Interpretation Comme nts GLUBED (test code = GLUBED) 357 mg/dL 74-106 H Performed by cer tified roll press operator at [facility] COMPREHENSIVE METABOLIC [id number] 22:24:00* Test Item Value Reference Range Interpretation [...] reference range due to change in reagent. [id number] 22:24:00* Test Item Value Reference Range Interpretation Comme nts PHOSPHORUS (test code = PHOS) 1.8 mg/dL 2.5-4.9 L [id number] 22:24:00* Test Item Value Reference Range Interpretation Comme nts MAGNESIUM (test code = MAG) 1.9 mg/dL 1.8-2.4 N [id number] 17:01:00* Test Item Value Reference Range Interpretation Comme nts GLUBED (test code = GLUBED) 299 mg/dL 74-106 H Performed by cer tified roll press operator at [facility] TBJVEY8304-00-56 12:14:00* Test Item Value Reference Range Interpretation Comme nts GLUBED (test code = GLUBED) 335 mg/dL 74-106 H Performed by cer tified roll press operator at [facility] [id number] 07:59:00* Test Item Value Reference Range Interpretation Comme nts GLUBED (test code = GLUBED) 329 mg/dL 74-106 H Performed by cer tified roll press operator at [facility] COMPREHENSIVE METABOLIC [id number] 06:56:00* Test Item Value Reference Range Interpretation [...] reference range due to change in reagent. [id number] 06:56:00* Test Item Value Reference Range Interpretation Comme nts PHOSPHORUS (test code = PHOS) 2.4 mg/dL 2.5-4.9 L [id number] 06:56:00* Test Item Value Reference Range Interpretation Comme nts MAGNESIUM (test code = MAG) 1.3 mg/dL 1.8-2.4 L CBC W/AUTO [id number] 06:24:00* Test Item Value Reference Range Interpretation [...] code = NRBC#) 0.00 K/mm3 0.0-0.1 N [id number] 05:49:00* Test Item Value Reference Range Interpretation Comme nts GLUBED (test code = GLUBED) 317 mg/dL 74-106 H Performed by cer tified roll press operator at [facility] [id number] 23:52:00* Test Item Value Reference Range Interpretation Comme nts GLUBED (test code = GLUBED) 364 mg/dL 74-106 H Performed by cer tified roll press operator at [facility] COMPREHENSIVE METABOLIC [id number] 15:47:00* Test Item Value Reference Range Interpretation [...] reference range due to change in reagent. [id number] 15:47:00* Test Item Value Reference Range Interpretation Comme nts PHOSPHORUS (test code = PHOS) 1.9 mg/dL 2.5-4.9 L [id number] 15:47:00* Test Item Value Reference Range Interpretation Comme nts MAGNESIUM (test code = MAG) 1.1 mg/dL 1.8-2.4 L [id number] 12:07:00* Test Item Value Reference Range Interpretation Comme nts GLUBED (test code = GLUBED) 375 mg/dL 74-106 H Performed by cer tified roll press operator at [facility] COMPREHENSIVE METABOLIC [id number] 06:42:00* Test Item Value Reference Range Interpretation [...] reference range due to change in reagent. [id number] 06:42:00* Test Item Value Reference Range Interpretation Comme nts PHOSPHORUS (test code = PHOS) 2.1 mg/dL 2.5-4.9 L [id number] 06:42:00* Test Item Value Reference Range Interpretation Comme nts MAGNESIUM (test code = MAG) 1.4 mg/dL 1.8-2.4 L CBC W/AUTO [id number] 06:15:00* Test Item Value Reference Range Interpretation [...] code = NRBC#) 0.00 K/mm3 0.0-0.1 N [id number] 06:04:00* Test Item Value Reference Range Interpretation Comme nts GLUBED (test code = GLUBED) 335 mg/dL 74-106 H Performed by cer tified roll press operator at [facility] [id number] 23:24:00* Test Item Value Reference Range Interpretation Comme nts GLUBED (test code = GLUBED) 300 mg/dL 74-106 H Performed by cer tified roll press operator at [facility] [id number] 17:17:00* Test Item Value Reference Range Interpretation Comme nts GLUBED (test code = GLUBED) 248 mg/dL 74-106 H Performed by cer tified roll press operator at [facility] HEPATIC FUNCTION [id number] 11:13:00* Test Item Value Reference Range Interpretation [...] reference range due to change in reagent. [id number] 11:13:00* Test Item Value Reference Range Interpretation Comme nts PHOSPHORUS (test code = PHOS) 4.1 mg/dL 2.5-4.9 N [id number] 11:13:00* Test Item Value Reference Range Interpretation Comme nts MAGNESIUM (test code = MAG) 1.3 mg/dL 1.8-2.4 L [id number] 11:06:00* Test Item Value Reference Range Interpretation Comme nts GLUBED (test code = GLUBED) 262 mg/dL 74-106 H Performed by cer tified roll press operator at [facility] [id number] 07:45:00* Test Item Value Reference Range Interpretation Comme nts GLUBED (test code = GLUBED) 231 mg/dL 74-106 H Performed by cer tified roll press operator at [facility] BASIC METABOLIC [id number] 06:02:00* Test Item Value Reference Range Interpretation [...] CA) 9.1 mg/dL 8.5-10.1 N CBC W/AUTO [id number] 05:50:00* Test Item Value Reference Range Interpretation [...] code = NRBC#) 0.00 K/mm3 0.0-0.1 N [id number] 05:45:00* Test Item Value Reference Range Interpretation Comme nts GLUBED (test code = GLUBED) 169 mg/dL 74-106 H Performed by cer tified roll press operator at [facility] [id number] 23:38:00* Test Item Value Reference Range Interpretation Comme nts GLUBED (test code = GLUBED) 164 mg/dL 74-106 H Performed by cer tified roll press operator at [facility] [id number] 16:06:00* Test Item Value Reference Range Interpretation Comme nts GLUBED (test code = GLUBED) 168 mg/dL 74-106 H Performed by cer tified roll press operator at [facility] [id number] 11:36:00* Test Item Value Reference Range Interpretation Comme nts GLUBED (test code = GLUBED) 168 mg/dL 74-106 H Performed by cer tified roll press operator at [facility] COMPREHENSIVE METABOLIC [id number] 10:07:00* Test Item Value Reference Range Interpretation [...] reference range due to change in reagent. [id number] 10:07:00* Test Item Value Reference Range Interpretation Comme nts PHOSPHORUS (test code = PHOS) 3.3 mg/dL 2.5-4.9 N [id number] 10:07:00* Test Item Value Reference Range Interpretation Comme nts MAGNESIUM (test code = MAG) 1.3 mg/dL 1.8-2.4 L CBC W/AUTO [id number] 09:27:00* Test Item Value Reference Range Interpretation [...] REQUIRED (test c ode = MDIFF) NO [id number] 08:20:00* Test Item Value Reference Range Interpretation Comme nts GLUBED (test code = GLUBED) 169 mg/dL 74-106 H Performed by cer tified roll press operator at [facility] [id number] 05:18:00* Test Item Value Reference Range Interpretation Comme nts GLUBED (test code = GLUBED) 158 mg/dL 74-106 H Performed by cer tified roll press operator at [facility] CBC W/AUTO [id number] 01:54:00* Test Item Value Reference Range Interpretation [...] NRBC#) 0.00 K/mm3 0.0-0.1 N COMPREHENSIVE METABOLIC [id number] 01:48:00* Test Item Value Reference Range Interpretation [...] reference range due to change in reagent. [id number] 01:48:00* Test Item Value Reference Range Interpretation Comme nts PHOSPHORUS (test code = PHOS) 3.3 mg/dL 2.5-4.9 N [id number] 01:48:00* Test Item Value Reference Range Interpretation Comme nts MAGNESIUM (test code = MAG) 1.4 mg/dL 1.8-2.4 L [id number] 23:59:00* Test Item Value Reference Range Interpretation Comme nts GLUBED (test code = GLUBED) 169 mg/dL 74-106 H Performed by cer karen roll press operator at [facility] - CT CHEST W/O [id number] 22:12:00 [facility]Name: LEANDRO LEHMAN : 1970 Sex: M Name: LEANDRO LEHMAN [facility] : 1970 Age/S: 52 / M [address] [facility] Unit#: [id number] Loc: [place] [address] Phys: Danielle Oh [employer] Acct: [id number] Dis Date: Status: ADM IN PHONE #: [phone] Exam Date: 11/11/20232204 FAX #: [phone] Reason: eval for hypoxiaEXAMS: CPT CODE: [id number] CT CHEST W/O CONTRAST 33442 Clinical Indication: SOB; Comparison: None TECHNIQUE: Sequential [...] no pneumothorax. AIRWAY: The central airway is norm al. . MEDIASTINUM: No significant mediastinal lymphadenopathy. HEART: [...] [id number] PAGE 1 Signed Report (CONTINUED) Name: LEANDRO LEHMAN [facility] : 1970 Age/S: 52 / M [address] [facility] Unit #: [id number] [place]: [place] [address] Phys: Danielle Oh NP Acct: [id number] Dis Date: Status: ADM IN PHONE #: [phone] Exam Date: 11/11/20232204 FAX #: [phone] Reason: eval for hypoxia EXAMS: CPT CODE: [id number] CT CHEST W/O CONTRAST 13487 (Continued) at 2212 Reported and signed by: Sachin Jameson M.D. CC: Danielle Oh NP; Lindsey Coyle MD; Sang Rey MD; Davion Duckworth MD Technologist:SARA MCKINNEY, RT CTDI: DLP: Trnscb Date/Time: 11/11/2023 (2211) [email or web address] Orig Print D/T: S: 11/11/2023 (2214) PAGE 2 Signed ReportGLUBED 2023-11-11 18:14:00* Test Item Value Reference Range Interpretation Comme nts GLUBED (test code = GLUBED) 170 mg/dL 74-106 H Performed by randy jones roll press operator at [facility] - XR CHEST 1 [id number] 14:49:00 [facility]Name: LEANDRO LEHMAN : 1970 Sex: M FAX: Meryl Rey MD [place]: B St: ADM FAX: Lindsey Coyle FAX: Sang Helms MD [phone] FAX: Davion Duckworth MD Name: LEANDRO LEHMAN [facility] : 1970 Age/S: 52/M [address] [facility] Unit #: [id number] Loc: [address] [address] Phys: Meryl Rey MD Acct: [id number] Dis Date:Status: ADM IN PHONE #: [phone] Exam Date: 11/11/2023 1408 FAX #: [phone] Reason: RESPIRATORY FAILURE EXAMS: CPT CODE: [id number] XR CHEST 1 V 76111 REASON FOR EXAM: RESPIRATORY FAILURE Exam Order Date: 11/11/2023 1:41 PM Ordering M.DPresley: Meryl Rey MD PROCEDURE: - XR CHEST 1 V COMPARISON: Chest x-ray the previous morning FINDINGS: The lungs are hypoinflated but clear. There is no pleural effusion or pneumothorax. Pulmonary vascularity is within normal limits. Cardiomediastinal silhouette is normal in size for technique. The mediastinal contours are within normal limits. Previously seen right IJ central line has been removed. Degenerative changes are present in the thoracic spine. The visualized upper abdomen is within normal limits. IMPRESSION: Lung volumes are diminished however no airspace disease is seen. Location: [facility] at 1449 Reported and signed by: Jamie Aguilar MD CC: Meryl Rey MD; Lindsey Coyle MD; Sang Rey MD; Davion Duckworth MD Technologist: Jessica Smith RT(R); Esther Pearl RT(R)Trnscrd Date/Time/By: 11/11/2023 (1347) : By: [email or web address] Orig Print D/T: S: 11/11/2023 (2923) PAGE 1 Signed ReportGLUBED 2023-11-11 11:42:00* Test Item Value Reference Range Interpretation Comme nts GLUBED (test code = GLUBED) 194 mg/dL 74-106 H Performed by cer tified roll press operator at [facility] [id number] 05:25:00* Test Item Value Reference Range Interpretation Comme nts GLUBED (test code = GLUBED) 151 mg/dL 74-106 H Performed by cer tified roll press operator at [facility] COMPREHENSIVE METABOLIC [id number] 01:31:00* Test Item Value Reference Range Interpretation [...] reference range due to change in reagent. [id number] 01:31:00* Test Item Value Reference Range Interpretation Comme nts PHOSPHORUS (test code = PHOS) 3.5 mg/dL 2.5-4.9 N [id number] 01:31:00* Test Item Value Reference Range Interpretation Comme nts MAGNESIUM (test code = MAG) 1.7 mg/dL 1.8-2.4 L CBC W/AUTO [id number] 01:08:00* Test Item Value Reference Range Interpretation [...] code = NRBC#) 0.00 K/mm3 0.0-0.1 N [id number] 00:02:00* Test Item Value Reference Range Interpretation Comme nts GLUBED (test code = GLUBED) 176 mg/dL 74-106 H Performed by cer tified roll press operator at [facility] [id number] 18:44:00* Test Item Value Reference Range Interpretation [...] URL. These results were obtained using Siemens [employer] IM TnIHreagent. Results from different methodologies should not becompared to one another as quantitative results and URLs mayvary by method. NOTE: A Positive Bias may occur for patients taking Biotin Supplements.NOTE: Current test methodology (pg/mL) units differ from prior test methodology (ng/mL) by a factor of 1000. [id number] 17:04:00* Test Item Value Reference Range Interpretation Comme nts GLUBED (test code = GLUBED) 158 mg/dL 74-106 H Performed by cer tified roll press operator at [facility] INFLUENZA A B [id number] 16:12:00* Test Item Value Reference Range Interpretation Comme nts INFLUENZA A POC (test code = INFLAAG) Negative Negative INFLUENZA B POC (test code = INFLBAG) Negative Negative - CT ABD PELVIS W/O [id number] 16:12:00 [facility]Name: LEANDRO LEHMAN : 1970 Sex: M Name: LEANDRO LEHMAN [facility] : 1970 Age/S: 52 / M [address] Unit #: [id number] Loc: [place] [address] Phys: Meryl Rey MD Acct: [id number] Dis Date: Status:ADM IN PHONE #: [phone] Exam Date: 11/10/2023 1528 FAX #: [phone] Reason: ABDOMINAL PAIN/VOMETING EXAMS: CPT CODE: [id number] CT ABD PELVIS W/O CONT 21475 REASON FOR EXAM: ABDOMINAL PAIN/VOMETING EXAM ORDER DATE: 11/10/2023 1:57 PM Ordering M.DPresley: Meryl Rey MD PROCEDURE: Axial CT images [...] and appendix: Grossly normal Abdominal vascular structures: Grosslynormal Other: No free fluid or free air. No abnormal lymph nodes. Musculoskeletal structures and abdominal wall: Degenerative changes are present in the spine PAGE 1 Signed Report (CONTINUED) Name: LEANDRO LEHMAN [facility] : 1970 Age/S: 52 / M [address] Unit #: [id number] Loc: [place] [address] Phys: Meryl Rey MD Acct: [id number] Dis Date: Status: ADM IN PHONE #: [phone] Exam Date: 11/10/2023 1528 FAX #: [phone] Reason: ABDOMINAL PAIN/VOMETING EXAMS: CPT CODE: [id number] CT ABD PELVIS W/O CONT 54420 (Continued) IMPRESSION: No acute intra-abdominal findings. Location: [facility] at 1612 Reported and signed by: Jamie Aguilar MD CC: Meryl Rey MD; Jeremias Ibarra MD; Sang Rey MD; Davion Duckworth MD Technologist:Renay Aleman RT(R),CT CTDI: DLP: Trnscb Date/Time: 11/10/2023 (253) t.SDR.RR31 Orig Print D/T: S: 11/10/2023 (3551) PAGE 2 Signed ReportB-TYPE NATRIURETIC [id number] 16:07:00* Test Item Value Reference Range Interpretation Comme nts B-TYPE NATRIURETIC PEPTIDE (test code = BNP) 19.6 pgram/mL 0-100 N - CT HEAD/BRAIN W/O [id number] 16:07:00 [facility] 1970 Sex: M Name: LEANDRO LEHMAN [facility] : 1970 Age/S: 52 / M [address] [place] [address] Unit #: [id number] Loc: [place] [address] Phys: Meryl Rey MD Acct: [id number] Dis Date: Status:ADM IN PHONE #: [phone] Exam Date: 11/10/2023 1528 FAX #: [phone] Reason: S/P FALL EXAMS: CPT CODE: [id number] CT HEAD/BRAIN W/O CONT 75186 HISTORY: S/P FALL TECHNIQUE: Noncontrast 2.[address] of the head. Examination acquired within [address] dose reduction protocol: Automated exposure control adjustment of mA and/or kV according to patient size or iterative reconstruction dose optimization techniques were used. COMPARISON: None FINDINGS: No lacerations or contusions of the scalp or facial soft tissues. Calvarium and skull base are intact. No acute hemorrhage. Nointracranial mass, mass effect, or midline shift. No effacement of the sulci or cohen-white matter interface. No cortical atrophy. No signs of white matter small-vessel disease. No hydrocephalus.. No extra-axial fluid collection. Visualized paranasal sinuses are clear. Mastoid air cells and middle ear cavities are clear. Orbital contents are unremarkable. IMPRESSION: Negative CT head. Location: [facility] at 1607 Reported and signed by: Eddie ARRIETA CC: Meryl Rey MD; Jeremias Ibarra MD; Sang Rey MD; Davion Duckworth MD Technologist:Renay Aleman RT(R),CT CTDI: DLP: Trnscb Date/Time: 11/10/2023 (1606) t.SDR.RR31 Orig Print D/T: S: 11/10/2023 (6640) PAGE 1 Signed [id number] 15:47:00* Test Item Value Reference Range Interpretation Comme [facility] TROPONIN-HS (test code = TROPI) 12.990 pg/mL 0-54 N 99th Percentile Upper Reference Limit (URL):Females: 34 pg/mLMales: 54 pg/mL In order to distinguish acute elevations of high sensitivitytroponin from other clinical conditions, the FourthUniversal Definition of Myocardial Infarction stressesclinical assessment and the demonstration of a rise and/orfall in serial troponin results above the URL. These results were obtained using Siemens [employer] IM TnIHreagent. Results from different methodologies should not becompared to one another as quantitative results and URLs mayvary by method. NOTE: A Positive Bias may occur for patients taking Biotin Supplements.NOTE: Current test methodology (pg/mL) units differ from prior test methodology (ng/mL) by a factor of 1000. ARTERIAL BLOOD [id number] 14:20:00* Test Item Value Reference Range Interpretation [...] 18.0-22.0 L - XR ABDOMEN AP 1 [id number] 14:19:00 [facility]Name: LEANDRO LEHMAN : 1970 Sex: M FAX: Meryl Rey MD [place]: B St: [facility] FAX: Lupe Boo MD [phone] FAX: Sang Helsm MD [phone] FAX: Davion Duckworth MD Name: LEANDRO LEHMAN [facility] : 1970 Age/S: 52/M [address] [facility] Unit #: [id number] Loc: [address] [address] Phys: Meryl Rey MD Acct: [id number] Date: Status: ADM IN PHONE #: [phone] Exam Date: 11/10/2023 1345 FAX #: [phone] Reason: NAUSEA/VOMETING EXAMS: CPT CODE: [id number] XR ABDOMEN AP 1 V 39712 HISTORY: NAUSEA/VOMETING PROCEDURE: - XR ABDOMEN AP 1 V COMPARISON: None FINDINGS: Nonobstructive bowel gas pattern. No significant stool burden. No intra-abdominal mass effect. No abnormal calcifications are observed. Visualized osseous structures are intact. Visualized thorax is within normal limits. IMPRESSION: No radiographic evidence of acute intra-abdominal process. Location: [facility] at 1419 Reported and signed by: Jamie Aguilar MD CC: Meryl Rey MD; Lupe Bailon MD; Sang Rey MD; Davion Duckworth MD Technologist: Catherine Lorenzo RT(R) Trnscrd Date/Time/By: 11/10/2023 (0713) : By: MatthewRR31 Orig Print D/T: S: 11/10/2023 (4229) PAGE 1 Signed ReportURINALYSIS [id number] 12:26:00* Test Item Value Reference Range Interpretation Comme nts UA COLOR (test code = COLU) Light-Yellow YELLOW UA APPEARANCE (test code = APPU) CLEAR CLEAR IS THE SAMPLE FROM ER OR L&D?N IF THE ANSWER IS NO,PLEASE DOCUMENT TWO RN SIGNATURES HERE- [id number], [id number] 11/10/23 1226 UA GLUCOSE DIPSTICK (test code [...] #/LPF FEW Urine Source? Clean CatchCOMPREHENSIVE METABOLIC [id number] 12:03:00* Test Item Value Reference Range Interpretation [...] change in reagent. - XR CHEST 1 [id number] 11:57:00 [facility]Name: LEANDRO LEHMAN : 1970 Sex: M FAX: Meryl Rey MD [place]: B St: ADM FAX: Lupe Boo MD [phone] FAX: Sang Helms MD [phone] FAX: Davion Duckworth MD Name: LEANDRO LEHMAN [facility] : 1970 Age/S: 52/M [address] [facility] Unit #: [id number] Loc: [place] [address] Phys: Meryl Rey MD Acct: [id number] Dis Date: Status: ADM IN PHONE #: [phone] Exam Date: 11/10/2023 1140 FAX #: [phone] Reason: respiratory failure EXAMS: CPT CODE: [id number] XR CHEST 1 V 79877 HISTORY: Respiratory failure. COMPARISON: Chest x- ray from September 24, 2022. Location: [facility]. Right jugular catheter with the tip p rojected over the SVC. Patchy left interstitial infiltrate. No effusion or congestion. Mild cardiomegaly. IMPRESSION: Patchy left interstitial infiltrate. at 1157 Reported and signed by: Arnaud Duggan M.D. CC: Meryl Rey MD; Lupe Bailon MD; Sang Rey MD; Davion Duckworth MD Technologist: Mauricio KING(R) Trnscrd Date/Time/By: 11/10/2023 (5114) : By: Cole.TH4 Orig Print D/T: S: 11/10/2023 (9238) PAGE 1 Signed ReportLACTIC [id number] 11:54:00* Test Item Value Reference Range Interpretation Comme nts LACTIC ACID (test code = LACT) 0.8 mmol/L 0.4-1.9 N PROTHROMBIN [id number] 11:53:00* Test Item Value Reference Range Interpretation [...] (2.5-3.5) IS PATIENT ON ANTICOAGULANTS? NCBC W/AUTO [id number] 11:51:00* Test Item Value Reference Range Interpretation [...] NRBC#) 0.00 K/mm3 0.0-0.1 N REAGENT STRIP/BLOOD [id number] 00:00:00* Test Item Value Reference Range Interpretation Comme nts BLOOD SUGAR (test code = 050900) 263 mg/dL 65-99 A Lab Interpretation (test cod e = 71963-1) Abnormal Maisha Seybold - ExternalTELERETINAL DIABETIC [id number] 15:16:00* Test Item Value Reference Range Interpretation Comme nts IMP (test code = IMP) 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 PlanRepeat diabetic retinopathy screening in 1 year Lab Interpretation (test code = 08928-5) Abnormal Maisha Seybold - ExternalPOCT GLUCOSE (AUTOMATED)2022-11-12 17:36:05* Test Item Value Reference Range Interpretation Comme nts POCT GLU (test code = 5246927228) 186 mg/dL 70-110 H Lab Interpretation (test cod e = 82759-9) Abnormal [facility] GLUCOSE (AUTOMATED)2022-11-12 14:01:05* Test Item Value Reference Range Interpretation Comme nts POCT GLU (test code = 4685426441) 143 mg/dL 70-110 H Lab Interpretation (test cod e = 80277-0) [facility]normal [facility]2022-[facility]-12 02:11:38* Test Item Value Reference Range Interpretation Comme nts POCT GLU (test code = 7987334421) 185 mg/dL 70-110 H Lab Interpretation (test cod e = 34398-7) [facility]normal [facility]2022-11-11 22:21:02* Test Item Value Reference Range Interpretation Comme nts POCT GLU (test code = 0789505068) 153 mg/dL 70-110 H Lab Interpretation (test cod e = 45916-3) Abnormal [facility] GLUCOSE (AUTOMATED)2022-11-11 17:34:44* Test Item Value Reference Range Interpretation Comme nts POCT GLU (test code = 4759819224) 158 mg/dL 70-110 H Lab Interpretation (test cod e = 27850-7) Abnormal [facility] GLUCOSE (AUTOMATED)2022-11-11 13:54:40* Test Item Value Reference Range Interpretation Comme nts POCT GLU (test code = 0084668150) 145 mg/dL 70-110 H Lab Interpretation (test cod e = 63200-5) Abnormal [facility])2022-11-11 02:46:38* Test Item Value Reference Range Interpretation Comme nts POCT GLU (test code = 6967260907) 230 mg/dL 70-110 H Lab Interpretation (test cod e = 72391-2) Abnormal [facility] (AUTOMATED)2022-11-10 22:41:53* Test Item Value Reference Range Interpretation Comme nts POCT GLU (test code = 5034026941) 161 mg/dL 70-110 H Lab Interpretation (test cod e = 41219-3) Abnormal [facility] GLUCOSE (AUTOMATED)2022-11-10 22:09:00* Test Item Value Reference Range Interpretation Comme nts POCT GLU (test code = 4803733590) 140 mg/dL 70-110 H Lab Interpretation (test cod e = 66287-1) Abnormal [facility] GLUCOSE (AUTOMATED)2022-11-10 14:40:30* Test Item Value Reference Range Interpretation Comme nts POCT GLU (test code = 9998268248) 140 mg/dL 70-110 H Lab Interpretation (test cod e = 10183-0) Abnormal [facility] GLUCOSE (AUTOMATED)2022-11-10 13:39:06* Test Item Value Reference Range Interpretation Comme nts POCT GLU (test code = 7603470198) 129 mg/dL 70-110 H Lab Interpretation (test cod e = 76888-3) Abnormal [facility])2022-11-10 03:12:17* Test Item Value Reference Range Interpretation Comme nts POCT GLU (test code = 1721707950) 142 mg/dL 70-110 H Lab Interpretation (test cod e = 38674-0) Abnormal [facility] GLUCOSE (AUTOMATED)2022-11-07 22:01:53* Test Item Value Reference Range Interpretation Comme nts POCT GLU (test code = 8666224764) 150 mg/dL 70-110 H Lab Interpretation (test cod e = 11965-1) Abnormal [facility] GLUCOSE (AUTOMATED)2022-11-07 17:30:01* Test Item Value Reference Range Interpretation Comme nts POCT GLU (test code = 5077239231) 178 mg/dL 70-110 H Lab Interpretation (test cod e = 26114-4) Abnormal [facility] GLUCOSE (AUTOMATED)2022-11-07 14:17:47* Test Item Value Reference Range Interpretation Comme nts POCT GLU (test code = 1118296396) 156 mg/dL 70-110 H Lab Interpretation (test cod e = 81254-3) Abnormal [facility] GLUCOSE (AUTOMATED)2022-11-07 03:33:30* Test Item Value Reference Range Interpretation Comme nts POCT GLU (test code = 8359374495) 153 mg/dL 70-110 H Lab Interpretation (test cod e = 97187-7) Abnormal [facility] GLUCOSE (AUTOMATED)2022-11-06 22:57:40* Test Item Value Reference Range Interpretation Comme nts POCT GLU (test code = 5035653280) 139 mg/dL 70-110 H Lab Interpretation (test cod e = 14303-4) [facility] [id number]-[id number] 22:26:29* Test Item Value Reference Range Interpretation Comme nts BOH (test code = 6729377810) 3.0 mmol/L ZULEIMA (test code = ZULEIMA) Normal Ranges: ? ? Nonfasting ? Less than 0.1 mmol/L ? ? Overnight Fast ? ? ? Less than 0.4 mmol/L ? ? Fasting (1-2 weeks) ?6-8 mmol/L Test developed and characteristics determined by [facility] Laboratory Services. [facility] Metabolic Panel (Na, K, Cl, CO2, Glucose, BUN, Creatinine, Ca)2022-11-06 21:22:03* Test Item Value Reference Range Interpretation Comme nts NA (test code = 5301668780) 136 mmol/L 135-145 K (test code = 3175698556) 3.9 mmol/L 3.5-5.0 Slight hemolysis CL (test code = 3557437130) 109 mmol/L 98-108 H CO2 TOTAL (test code = 2565307531) 15 mmol/L 23-31 L AGAP (test code = 9109283703) 2-16 BUN (test code = 2125281620) 7-23 L Slight hemolysis GLUCOSE (test code = 7535944335) 171 mg/dL 70-110 H CREATININE (test code = 8347785411) 0.49 mg/dL 0.60-1.25 L CALCIUM (test code = 2240075931) 7.9 mg/dL 8.6-10.6 L eGFR (test code = 4976062311) mL/min/1.73m2 ZULEIMA (test code = ZULEIMA) Association [...] imaging tests). Lab Interpretation (test code = 78586-2) Abnormal [facility] GLUCOSE (AUTOMATED)2022-11-06 16:16:50* Test Item Value Reference Range Interpretation Comme [facility] POCT GLU (test code = 5526107220) 163 mg/dL 70-110 H Lab Interpretation (test cod e = 73237-7) Abnormal [facility] Metabolic Panel (Na, K, Cl, CO2, Glucose, BUN, Creatinine, Ca)2022-11-06 12:51:08* Test Item Value Reference Range Interpretation Comme nts NA (test code = 6606344233) 135 mmol/L 135-145 K (test code = 7102834497) 4.7 mmol/L 3.5-5.0 Slight hemolysis CL (test code = 5809103968) 110 mmol/L 98-108 H CO2 TOTAL (test code = 3068313947) 12 mmol/L 23-31 L AGAP (test code = 5757663965) 2-16 BUN (test code = 5141504405) 3 mg/dL 7-23 L Slight hemolysis GLUCOSE (test code = 1487799316) 152 mg/dL 70-110 H CREATININE (test code = 5931814443) 0.62 mg/dL 0.60-1.25 CALCIUM (test code = 8173071360) 8.3 mg/dL 8.6-10.6 L eGFR (test code = 4843908804) mL/min/1.73m2 ZULEIMA (test code = ZULEIMA) Association [...] imaging tests). Lab Interpretation (test code = 07517-3) Abnormal [facility] GLUCOSE (AUTOMATED)2022-11-06 11:27:27* Test Item Value Reference Range Interpretation Comme nts POCT GLU (test code = 0955879240) 139 mg/dL 70-110 H Lab Interpretation (test cod e = 58044-6) Abnormal [facility] GLUCOSE (AUTOMATED)2022-11-06 09:28:37* Test Item Value Reference Range Interpretation Comme nts POCT GLU (test code = 3930213776) 137 mg/dL 70-110 H Lab Interpretation (test cod e = 86997-0) Abnormal [facility] GLUCOSE(AGE >30DAYS)2022-11-06 08:15:00* Test Item Value Reference Range Interpretation Comme nts POCT Glu (age>30days) (test code = 3342) 107 mg/dL 70-110 Lab Interpretation (test cod e = 43611-8) Normal [facility] GLUCOSE (AUTOMATED)2022-11-06 06:58:20* Test Item Value Reference Range Interpretation Comme nts POCT GLU (test code = 2778819643) 96 mg/dL 70-110 Lab Interpretation (test cod e = 32845-8) Normal [facility] GLUCOSE(AGE >30DAYS)2022-11-06 06:58:00* Test Item Value Reference Range Interpretation Comme nts POCT Glu (age>30days) (test code = 3342) 96 mg/dL 70-110 Lab Interpretation (test cod e = 36200-2) [facility] [id number] 05:12:24* Test Item Value Reference Range Interpretation Comments TROPONIN I (test code = 4968995578) 0.003 ng/mL See_Comment [Automated message] The system [...] of biotin. Lab Interpretation (test code = 86251-2) [facility] CenterN-TERMINAL [id number] 05:09:22* Test Item Value Reference Range Interpretation Comme nts NT-proBNP (test code = 5430984459) 58 pg/mL See_Comment [Automated message] The system which generated this result transmitted reference range: <=125. The reference range was not used to interpret this result as normal/abnormal. ZULEIMA (test code = ZULEIMA) Biotin has been reported to cause a negative bias, interpret results relative to patient's use of biotin. Lab Interpretation (test code = 78780-4) [facility] (23923)2022-11-06 05:00:43* Test Item Value Reference Range Interpretation Comme nts NA (test code = 3397743617) 135 mmol/L 135-145 K (test code = 5198069184) 4.3 mmol/L 3.5-5.0 CL (test code = 3405412446) 106 mmol/L 98-108 CO2 TOTAL (test code = 3950148547) 11 mmol/L 23-31 L AGAP (test code = 2236434236) 2-16 H BUN (test code = 7712596236) 3 mg/dL 7-23 L GLUCOSE (test code = 6902847412) 129 mg/dL 70-110 H CREATININE (test code = 8972458010) 0.71 mg/dL 0.60-1.25 TOTAL BILI (test code = 9879016673) 1.0 mg/dL 0.1-1.1 CALCIUM (test code = 6367522646) 8.7 mg/dL 8.6-10.6 T PROTEIN (test code = 6705681914) 6.6 g/dL 6.3-8.2 ALBUMIN (test code = 8029263919) 3.9 g/dL 3.5-5.0 ALK PHOS (test code = 5870261836) 85 U/L 34-122 ALTv (test code = 1742-6) 125 U/L 5-50 H AST(SGOT) (test code = 5100206262) 39 U/L 13-40 eGFR (test code = 3872182135) mL/min/1.73m2 ZULEIMA (test code = ZULEIMA) Association [...] imaging tests). Lab Interpretation (test code = 08229-2) [facility] 05:00:43* Test Item Value Reference Range Interpretation Comme nts LIPASE (test code = 0439836592) 105 U/L 0-220 Lab Interpretation (test cod e = 13327-4) [facility] WITH [id number] 04:33:58* Test Item Value Reference Range Interpretation [...] 32.9 g/dL 31.2-35.0 RDW-SD (test code = 46057-4) 47.2 fL 38.5-51.6 RDW-CV (test code = 788-0) 14.2 % 12.1-15.4 PLT (test code = 777-3) See_Comment [Automated messa ge] The system which generated this result transmitted reference range: 150 - 328 10*3/?L. The reference range was not used to interpret this result as normal/abnormal. MPV (test code = 73561-7) 8.5 fL 9.8-13.0 L NRBC/100 WBC (test code = 0358399230) See_Comment [Automated [employer] ssage] The system which generated this result transmitted reference range: 0.0 - 10.0 /100 WBCs. The reference range was not used to interpret this result as normal/abnormal. NRBC x10^3 (test code = 7831822476) See_Comment [Automated messa ge] The system which generated this result transmitted reference range: 10*3/?L. The reference range was not used to interpret this result as normal/abnormal. GRAN MAT (NEUT) % (test code = 770-8) 53.8 % IMM GRAN % (test code = 8755429768) 0.60 % LYMPH % (test code = 736-9) 34.6 % MONO % (test code = 5905-5) 8.3 % EOS % (test code = 713-8) 2.4 % BASO % (test code = 706-2) 0.3 % GRAN MAT x10^3(ANC) (test code = 7404723074) 3.85 10*3/uL 1.99-6.95 IMM GRAN x10^3 (test code = 7223918651) 0.04 10*3/uL 0.00-0.06 LYMPH x10^3 (test code = 731-0) 2.47 10*3/uL 1.09-3.23 MONO x10^3 (test code = 742-7) 0.59 10*3/uL 0.36-1.02 EOS x10^3 (test code = 711-2) 0.17 10*3/uL 0.06-0.53 BASO x10^3 (test code = 704-7) 0.01-0.09 Lab Interpretation (test code = 83366-6) [facility]- [facility]ST 1 [id number] 09:27:00 [facility] 1970 Sex: M Name: LEANDRO LEHMAN [facility] : 1970 Age/S: 51 / M [address] Unit #: [id number] Loc: [place] [address] Phys: Randall Veloz MD Acct: [id number] Dis Date: Status: REG ALYSSAHONE #: [phone] Exam Date: 09/24/2022909 FAX #: Reason: PRE OP EXAMS: CPT: [id number] XR CHEST 1 V 90006 Fluoro Time: DAP (Gy m2): Air Kerma (mGy): EXAMINATION: - XR CHEST 1 V. LOCATION: U19.HISTORY: PRE OP, GERD. COMPARISON: None. FINDINGS: Examination is limited due to portable techniqueand patient body habitus. Cardiac silhouette/Mediastinal contour: Prominence of cardiac silhouette. Lungs: No focal consolidation. No large pleural effusion. Osseous Structures: Mild degenerative changes affect thoracic spine. IMPRESSION: No focal consolidation. Prominence of cardiac silhouette. at 926 Reported and signed by: Sil Hooks M.D. CC: Randall Veloz MD; Lukasz Saul MD PAGE 1 Signed Report Name: LEANDRO LEHMAN [facility] : 1970 Age/S: 51 / M [id number] Unit #: [id number] Loc: [place] [address] Phys: Randall Veloz MD Acct: [id number] Dis Date: Status: REG [facility] PHONE #: [phone] Exam Date: 09/24/2022909 FAX #: Reason: PRE OP EXAMS: CPT: [id number] XR CHEST1 V 97915 Fluoro Time: DAP (Gy m2): Air Kerma (mGy): (Continued) Technologist: Delano Sorenson RT(R)(CT) Trnscb Date/Time: 09/24/2022 (926) [email or web address] Orig Print D/T: S: 09/24/2022 (929) PAGE 2 Signed ReportCBC W/AUTO [id number] 09:06:00* Test Item Value Reference Range Interpretation [...] = MDIFF) NO DIFF/SCN CRITERIA BASIC METABOLIC [id number] 09:00:00* Test Item Value Reference Range Interpretation [...] 8.9 MG/DL 8.5-10.1 N COVID 19 INHOUSE [id number] 08:52:00* Test Item Value Reference Range Interpretation Comme nts COVID 19 INHOUSE AG (test code = [id number]) NEGATIVE Negative Per trim stencil maker , negative results should be treated aspresumptive [...] Test Item Value Reference Range Interpretation Comme [facility] POCT GLU (test code = 4602975144) 193 mg/dL 70-110 H Lab Interpretation (test cod e = 88934-4) Abnormal [facility] GLUCOSE (AUTOMATED)2022-09-04 13:42:12* Test Item Value Reference Range Interpretation Comme nts POCT GLU (test code = 2625864825) 185 mg/dL 70-110 H Lab Interpretation (test cod e = 43496-7) Abnormal [facility] GLUCOSE (AUTOMATED)2022-09-04 05:36:51* Test Item Value Reference Range Interpretation Comme nts POCT GLU (test code = 0114136953) 204 mg/dL 70-110 H Lab Interpretation (test cod e = 37442-8) [facility]normal [facility] CenterGLYCOSYLATED HEMOGLOBIN (A1C)2022-09-04 05:24:19* Test Item Value Reference Range Interpretation Comme nts HGB A1C (test code = 4548-4) 9.2 % 4-5.7 H ZULEIMA (test code = ZULEIMA) Reference RangesNormal: <5.7%Prediabetes: 5.7 - 6.4%Diabetes: > 6.5% Lab Interpretation (test code = 85651-7) [facility]normal [facility] CenterTROP[facility]IN [id number] 22:58:29* Test Item Value Reference Range Interpretation Comments TROPONIN I (test code = 0042373378) 0.002 ng/mL See_Comment [Automated message] The system [...] of biotin. Lab Interpretation (test code = 92843-8) [facility] [id number] 22:55:11* Test Item Value Reference Range Interpretation Comme [facility] NT-proBNP (test code = 6531071563) 29 pg/mL See_Comment [Automated message] The system which generated this result transmitted reference range: <=125. The reference range was not used to interpret this result as normal/abnormal. ZULEIMA (test code = ZULEIMA) Biotin has been reported to cause a negative bias, interpret results relative to patient's use of biotin. Lab Interpretation (test code = 60689-3) Normal [facility] CenterACTIVATED PARTIAL THRMPLAS [id number] 22:51:28* Test Item Value Reference Range Interpretation Comme nts APTT Patient (test code = 3173-2) See_Comment L [Automated message] The system which generated this result transmitted reference range: 23 - 38 Seconds. The reference range was not used to interpret this result as normal/abnormal. ZULEIMA (test code = ZULEIMA) The [facility] patient population mean normal value for aPTT is 30 seconds. Lab Interpretation (test code = 73767-5) [facility]normal [facility] Center[facility]EL (99248)2022-09-03 22:46:28* Test Item Value Reference Range Interpretation Comme nts NA (test code = 2126989636) 137 mmol/L 135-145 K (test code = 0100130148) 5.1 mmol/L 3.5-5 H CL (test code = 6831889738) 103 mmol/L 98-108 CO2 TOTAL (test code = 8944446405) 21 mmol/L 23-31 L AGAP (test code = 8270815396) 2-16 BUN (test code = 7995517921) 18 mg/dL 7-23 GLUCOSE (test code = 1072973483) 360 mg/dL 70-110 H CREATININE (test code = 7709458598) 0.84 mg/dL 0.6-1.25 TOTAL BILI (test code = 2542678940) 0.7 mg/dL 0.1-1.1 CALCIUM (test code = 0625376375) 9.2 mg/dL 8.6-10.6 T PROTEIN (test code = 7480551484) 6.7 g/dL 6.3-8.2 ALBUMIN (test code = 1898589610) 4.3 g/dL 3.5-5 ALK PHOS (test code = 6113158377) 140 U/L 34-122 H ALTv (test code = 1742-6) 727 U/L 5-50 H AST(SGOT) (test code = 2512880645) 348 U/L 13-40 H eGFR (test code = 2286948306) mL/min/1.73m2 ZULEIMA (test code = ZULEIMA) Association [...] imaging tests). Lab Interpretation (test code = 68459-0) [facility] 22:46:09* Test Item Value Reference Range Interpretation Comme nts LIPASE (test code = 1348123593) 252 U/L 0-220 H Lab Interpretation (test cod e = 97887-7) [facility]normal [facility] CenterCBC WITH [id number] 22:35:24* Test Item Value Reference Range Interpretation Comme nts WBC (test code = 6690-2) See_Comment [[employer] The system which generated this result transmitted reference range: 4.20 - 10.70 10*3/?L. The reference range was not used to interpret this result as normal/abnormal. RBC (test code = 789-8) See_Comment [Automated [employer]] The system which generated this result transmitted [...] 32.6 g/dL 31.2-35 RDW-SD (test code = 02707-0) 50.6 fL 38.5-51.6 RDW-CV (test code = 788-0) 16.0 % 12.1-15.4 H PLT (test code = 777-3) See_Comment [Automated messa ge] The system which generated this result transmitted reference range: 150 - 328 10*3/?L. The reference range was not used to interpret this result as normal/abnormal. MPV (test code = 16086-7) 9.1 fL 9.8-13 L NRBC/100 WBC (test code = 5399163413) See_Comment [Automated [employer] ssage] The system which generated this result transmitted reference range: 0.0 - 10.0 /100 WBCs. The reference range was not used to interpret this result as normal/abnormal. NRBC x10^3 (test code = 1351392879) See_Comment [Automated [employer]] The system which generated this result transmitted reference range: 10*3/?L. The reference range was not used to interpret this result as normal/abnormal. GRAN MAT (NEUT) % (test code = 770-8) 74.4 % IMM GRAN % (test code = 7506754113) 1.60 % LYMPH % (test code = 736-9) 17.8 % MONO % (test code = 5905-5) 5.7 % EOS % (test code = 713-8) 0.1 % BASO % (test code = 706-2) 0.4 % GRAN MAT x10^3(ANC) (test code = 9178601216) 6.35 10*3/uL 1.99-6.95 IMM GRAN x10^3 (test code = 6068128787) 0.14 10*3/uL 0-0.06 H LYMPH x10^3 (test code = 731-0) 1.52 10*3/uL 1.09-3.23 MONO x10^3 (test code = 742-7) 0.49 10*3/uL 0.36-1.02 EOS x10^3 (test code = 711-2) 0.06-0.53 L BASO x10^3 (test code = 704-7) 0.03 10*3/uL 0.01-0.09 Lab Interpretation (test code = 60433-6) Abnormal [facility] GLUCOSE (AUTOMATED)2022-04-23 19:01:02* Test Item Value Reference Range Interpretation Comme nts POCT GLU (test code = 0475539920) 174 mg/dL 70-110 H Lab Interpretation (test cod e = 25635-4) Abnormal [facility] GLUCOSE (AUTOMATED)2022-04-23 16:43:23* Test Item Value Reference Range Interpretation Comme nts POCT GLU (test code = 0678481808) 162 mg/dL 70-110 H Lab Interpretation (test cod e = 58342-8) Abnormal [facility] GLUCOSE (AUTOMATED)2022-04-23 15:37:41* Test Item Value Reference Range Interpretation Comme nts POCT GLU (test code = 8442843194) 130 mg/dL 70-110 H Lab Interpretation (test cod e = 64692-5) Abnormal [facility] GLUCOSE (AUTOMATED)2022-04-23 12:54:00* Test Item Value Reference Range Interpretation Comme nts POCT GLU (test code = 7522746992) 135 mg/dL 70-110 H Lab Interpretation (test cod e = 25071-5) Abnormal [facility] METABOLIC PANEL (NA, K, CL, CO2, GLUCOSE, BUN, CREATININE, CA)2022-04-23 11:38:26* Test Item Value Reference Range Interpretation Comme nts NA (test code = 4165296581) 137 mmol/L 135-145 K (test code = 4001036034) 3.2 mmol/L 3.5-5.0 L CL (test code = 0581278364) 110 mmol/L 98-108 H CO2 TOTAL (test code = 4229812621) 19 mmol/L 23-31 L AGAP (test code = 3324333129) 2-16 BUN (test code = 2993444146) <2 7-23 L GLUCOSE (test code = 1594596585) 121 mg/dL 70-110 H CREATININE (test code = 4952268903) 0.67 mg/dL 0.60-1.25 CALCIUM (test code = 8911369960) 7.7 mg/dL 8.6-10.6 L eGFR (test code = 2233563375) mL/min/1.73m2 ZULEIMA (test code = ZULEIMA) Association [...] imaging tests). Lab Interpretation (test code = 51662-0) Abnormal [facility] GLUCOSE (AUTOMATED)2022-04-23 11:35:25* Test Item Value Reference Range Interpretation Comme [facility] POCT GLU (test code = 1666313352) 135 mg/dL 70-110 H Lab Interpretation (test cod e = 04255-6) [facility]20[facility] 11:05:56* Test Item Value Reference Range Interpretation Comme nts MAGNESIUM (test code = 7542720401) 1.7 mg/dL 1.7-2.4 Lab Interpretation (test cod e = 65553-0) Normal [facility] GLUCOSE (AUTOMATED)2022-04-23 09:37:57* Test Item Value Reference Range Interpretation Comme nts POCT GLU (test code = 2229229882) 107 mg/dL 70-110 Lab Interpretation (test cod e = 22478-7) Normal [facility] GLUCOSE (AUTOMATED)2022-04-23 07:22:08* Test Item Value Reference Range Interpretation Comme nts POCT GLU (test code = 5679853065) 146 mg/dL 70-110 H Lab Interpretation (test cod e = 44366-3) Abnormal [facility] GLUCOSE (AUTOMATED)2022-04-23 05:29:09* Test Item Value Reference Range Interpretation Comme nts POCT GLU (test code = 5568583985) 142 mg/dL 70-110 H Lab Interpretation (test cod e = 69943-8) Abnormal [facility] GLUCOSE (AUTOMATED)2022-04-23 04:10:18* Test Item Value Reference Range Interpretation Comme nts POCT GLU (test code = 4263454258) 148 mg/dL 70-110 H Lab Interpretation (test cod e = 83480-9) Abnormal [facility] GLUCOSE (AUTOMATED)2022-04-23 02:27:55* Test Item Value Reference Range Interpretation Comme nts POCT GLU (test code = 4347801640) 160 mg/dL 70-110 H Lab Interpretation (test cod e = 12114-4) Abnormal [facility] Metabolic Panel (Na, K, Cl, CO2, Glucose, BUN, Creatinine, Ca)2022-04-23 01:58:18* Test Item Value Reference Range Interpretation Comme nts NA (test code = 7150159037) 137 mmol/L 135-145 K (test code = 7709529609) 3.6 mmol/L 3.5-5.0 CL (test code = 8174314710) 109 mmol/L 98-108 H CO2 TOTAL (test code = 3075954642) 17 mmol/L 23-31 L AGAP (test code = 7681809885) 2-16 BUN (test code = 6699566470) <2 7-23 L GLUCOSE (test code = 9179269236) 162 mg/dL 70-110 H CREATININE (test code = 6243608563) 0.62 mg/dL 0.60-1.25 CALCIUM (test code = 9575370307) 8.2 mg/dL 8.6-10.6 L eGFR (test code = 1600847821) mL/min/1.73m2 ZULEIMA (test code = ZULEIMA) Association [...] imaging tests). Lab Interpretation (test code = 47019-4) Abnormal [facility] GLUCOSE (AUTOMATED)2022-04-23 01:21:32* Test Item Value Reference Range Interpretation Comme [facility] POCT GLU (test code = 5313178699) 142 mg/dL 70-110 H Lab Interpretation (test cod e = 88785-4) Abnormal [facility] GLUCOSE (AUTOMATED)2022-04-23 00:05:03* Test Item Value Reference Range Interpretation Comme nts POCT GLU (test code = 6116711782) 148 mg/dL 70-110 H Lab Interpretation (test cod e = 34291-5) Abnormal [facility] GLUCOSE (AUTOMATED)2022-04-22 23:06:57* Test Item Value Reference Range Interpretation Comme nts POCT GLU (test code = 9909627120) 144 mg/dL 70-110 H Lab Interpretation (test cod e = 39365-4) Abnormal [facility] GLUCOSE (AUTOMATED)2022-04-22 22:12:45* Test Item Value Reference Range Interpretation Comme nts POCT GLU (test code = 2532162329) 145 mg/dL 70-110 H Lab Interpretation (test cod e = 51153-7) [facility] [id number] 21:43:14* Test Item Value Reference Range Interpretation Comments TROPONIN I (test code = 4551656628) 0.003 ng/mL See_Comment [Automated message] The system [...] of biotin. Lab Interpretation (test code = 35471-2) Normal [facility] Metabolic Panel (Na, K, Cl, CO2, Glucose, BUN, Creatinine, Ca)2022-04-22 21:31:09* Test Item Value Reference Range Interpretation Comme nts NA (test code = 2982318609) 134 mmol/L 135-145 L K (test code = 3899689739) 3.9 mmol/L 3.5-5.0 CL (test code = 1870230282) 108 mmol/L 98-108 CO2 TOTAL (test code = 8786857370) 15 mmol/L 23-31 L AGAP (test code = 9835152063) 2-16 BUN (test code = 4328002955) 2 mg/dL 7-23 L GLUCOSE (test code = 0885569348) 170 mg/dL 70-110 H CREATININE (test code = 1292579702) 0.62 mg/dL 0.60-1.25 CALCIUM (test code = 4844347927) 8.3 mg/dL 8.6-10.6 L eGFR (test code = 5608333387) mL/min/1.73m2 ZULEIMA (test code = ZULEIMA) Association [...] imaging tests). Lab Interpretation (test code = 28690-1) Abnormal [facility] GLUCOSE (AUTOMATED)2022-04-22 21:08:08* Test Item Value Reference Range Interpretation Comme nts POCT GLU (test code = 4183348994) 156 mg/dL 70-110 H Lab Interpretation (test cod e = 49133-4) Abnormal [facility] GLUCOSE (AUTOMATED)2022-04-22 19:48:36* Test Item Value Reference Range Interpretation Comme nts POCT GLU (test code = 7960796558) 154 mg/dL 70-110 H Lab Interpretation (test cod e = 97463-5) Abnormal [facility] GLUCOSE (AUTOMATED)2022-04-22 18:44:52* Test Item Value Reference Range Interpretation Comme nts POCT GLU (test code = 3529692529) 146 mg/dL 70-110 H Lab Interpretation (test cod e = 51732-4) Abnormal [facility] GLUCOSE (AUTOMATED)2022-04-22 17:28:16* Test Item Value Reference Range Interpretation Comme nts POCT GLU (test code = 4251775817) 148 mg/dL 70-110 H Lab Interpretation (test cod e = 24843-8) Abnormal [facility] Metabolic Panel (Na, K, Cl, CO2, Glucose, BUN, Creatinine, Ca)2022-04-22 16:11:05* Test Item Value Reference Range Interpretation Comme nts NA (test code = 4717216745) 134 mmol/L 135-145 L K (test code = 6853407428) 3.8 mmol/L 3.5-5.0 CL (test code = 3661011123) 106 mmol/L 98-108 CO2 TOTAL (test code = 3341326127) 15 mmol/L 23-31 L AGAP (test code = 9767156692) 2-16 BUN (test code = 3806522158) 4 mg/dL 7-23 L GLUCOSE (test code = 7408678041) 179 mg/dL 70-110 H CREATININE (test code = 8164778952) 0.68 mg/dL 0.60-1.25 CALCIUM (test code = 3200804492) 8.5 mg/dL 8.6-10.6 L eGFR (test code = 2637811937) mL/min/1.73m2 ZULEIMA (test code = ZULEIMA) Association [...] imaging tests). Lab Interpretation (test code = 52264-7) [facility]22-[facility]-22 16:10:40* Test Item Value Reference Range Interpretation Comme [facility] POCT GLU (test code = 5760003127) 157 mg/dL 70-110 H Lab Interpretation (test cod e = 82215-3) [facility] [id number] 15:48:43* Test Item Value Reference Range Interpretation Comme [facility] WBC (test code = 6690-2) See_Comment [[employer] The system which generated this result transmitted reference range: 4.20 - 10.70 10*3/?L. The reference range was not used to interpret this result as normal/abnormal. RBC (test code = 789-8) See_Comment [[employer] The system which generated this result transmitted [...] 33.7 g/dL 31.2-35.0 RDW-SD (test code = 17657-0) 38.5 fL 38.5-51.6 RDW-CV (test code = 788-0) 12.4 % 12.1-15.4 PLT (test code = 777-3) See_Comment [[employer]ated [employer]] The system which generated this result transmitted reference range: 150 - 328 10*3/?L. The reference range was not used to interpret this result as normal/abnormal. MPV (test code = 33307-0) 9.2 fL 9.8-13.0 L NRBC/100 WBC (test code = 4045251981) See_Comment [[employer]ated [employer]] The system which generated this result transmitted reference range: 0.0 - 10.0 /100 WBCs. The reference range was not used to interpret this result as normal/abnormal. NRBC x10^3 (test code = 8218556300) <0.01 See_Comment [[employer]ated [employer]] The system which generated this result transmitted reference range: 10*3/?L. The reference range was not used to interpret this result as normal/abnormal. GRAN MAT (NEUT) % (test code = 770-8) 69.0 % IMM GRAN % (test code = 1742398995) 0.40 % LYMPH % (test code = 736-9) 18.9 % MONO % (test code = 5905-5) 9.1 % EOS % (test code = 713-8) 2.0 % BASO % (test code = 706-2) 0.6 % GRAN MAT x10^3(ANC) (test code = 0189502365) 6.20 10*3/uL 1.99-6.95 IMM GRAN x10^3 (test code = 5379985483) 0.04 10*3/uL 0.00-0.06 LYMPH x10^3 (test code = 731-0) 1.70 10*3/uL 1.09-3.23 MONO x10^3 (test code = 742-7) 0.82 10*3/uL 0.36-1.02 EOS x10^3 (test code = 711-2) 0.18 10*3/uL 0.06-0.53 BASO x10^3 (test code = 704-7) 0.05 10*3/uL 0.01-0.09 Lab Interpretation (test code = 09738-5) Abnormal [facility] GLUCOSE (AUTOMATED)2022-04-22 14:27:15* Test Item Value Reference Range Interpretation Comme nts POCT GLU (test code = 9316334011) 150 mg/dL 70-110 H Lab Interpretation (test cod e = 25684-6) Abnormal [facility] GLUCOSE (AUTOMATED)2022-04-22 13:41:45* Test Item Value Reference Range Interpretation Comme nts POCT GLU (test code = 6415741188) 149 mg/dL 70-110 H Lab Interpretation (test cod e = 70994-7) Abnormal [facility] GLUCOSE (AUTOMATED)2022-04-22 12:29:18* Test Item Value Reference Range Interpretation Comme nts POCT GLU (test code = 5778614303) 174 mg/dL 70-110 H Lab Interpretation (test cod e = 49733-9) Abnormal [facility] GLUCOSE (AUTOMATED)2022-04-22 11:33:37* Test Item Value Reference Range Interpretation Comme nts POCT GLU (test code = 5925614748) 159 mg/dL 70-110 H Lab Interpretation (test cod e = 37808-1) Abnormal [facility] Metabolic Panel (Na, K, Cl, CO2, Glucose, BUN, Creatinine, Ca)2022-04-22 11:30:20* Test Item Value Reference Range Interpretation Comme nts NA (test code = 3678027732) 133 mmol/L 135-145 L K (test code = 2497429636) 3.3 mmol/L 3.5-5.0 L CL (test code = 7317076704) 104 mmol/L 98-108 CO2 TOTAL (test code = 3939811987) 14 mmol/L 23-31 L AGAP (test code = 9083597567) 2-16 BUN (test code = 5965739727) 4 mg/dL 7-23 L GLUCOSE (test code = 0905011215) 172 mg/dL 70-110 H CREATININE (test code = 8419585358) 0.77 mg/dL 0.60-1.25 CALCIUM (test code = 6905957795) 8.6 mg/dL 8.6-10.6 eGFR (test code = 6957065683) mL/min/1.73m2 ZULEIMA (test code = ZULEIMA) Association [...] imaging tests). Lab Interpretation (test code = 12706-4) Abnormal [facility] GLUCOSE (AUTOMATED)2022-04-22 10:56:08* Test Item Value Reference Range Interpretation Comme nts POCT GLU (test code = 4158357237) 157 mg/dL 70-110 H Lab Interpretation (test cod e = 80479-7) Abnormal [facility] GLUCOSE (AUTOMATED)2022-04-22 10:56:03* Test Item Value Reference Range Interpretation Comme nts POCT GLU (test code = 9276882216) 96 mg/dL 70-110 Lab Interpretation (test cod e = 44036-2) Normal [facility] GLUCOSE (AUTOMATED)2022-04-22 09:35:36* Test Item Value Reference Range Interpretation Comme nts POCT GLU (test code = 0363052984) 158 mg/dL 70-110 H Lab Interpretation (test cod e = 77685-9) Abnormal [facility] GLUCOSE (AUTOMATED)2022-04-22 08:36:40* Test Item Value Reference Range Interpretation Comme nts POCT GLU (test code = 8948964994) 166 mg/dL 70-110 H Lab Interpretation (test cod e = 92399-1) Abnormal [facility] Metabolic Panel (Na, K, Cl, CO2, Glucose, BUN, Creatinine, Ca)2022-04-22 08:00:14* Test Item Value Reference Range Interpretation Comme nts NA (test code = 9402885195) 133 mmol/L 135-145 L K (test code = 8454589633) 3.6 mmol/L 3.5-5.0 CL (test code = 3900046992) 103 mmol/L 98-108 CO2 TOTAL (test code = 5541480634) 14 mmol/L 23-31 L AGAP (test code = 2219507842) 2-16 BUN (test code = 9292071821) 5 mg/dL 7-23 L GLUCOSE (test code = 4591635516) 172 mg/dL 70-110 H CREATININE (test code = 9896344769) 0.85 mg/dL 0.60-1.25 CALCIUM (test code = 7814058351) 9.0 mg/dL 8.6-10.6 eGFR (test code = 5029996639) mL/min/1.73m2 ZULEIMA (test code = ZULEIMA) Association [...] imaging tests). Lab Interpretation (test code = 41633-3) [facility]normal [facility] CenterOsmolality Jklyy7803-38-64 07:46:08* Test Item Value Reference Range Interpretation Comme [facility] OSMOLALITY (test code = 2692-2) See_Comment [[employer] The system which generated this result transmitted reference range: 278 - 305 mOsm/kg. The reference range was not used to interpret this result as normal/abnormal. Lab Interpretation (test code = 75604-4) Normal [facility] GLUCOSE (AUTOMATED)2022-04-22 07:36:29* Test Item Value Reference Range Interpretation Comme [facility] POCT GLU (test code = 7314736646) 144 mg/dL 70-110 H Lab Interpretation (test cod e = 57648-3) Abnormal [facility] GLUCOSE (AUTOMATED)2022-04-22 07:36:29* Test Item Value Reference Range Interpretation Comme [facility] POCT GLU (test code = 9070226357) 168 mg/dL 70-110 H Lab Interpretation (test cod e = 89194-3) Abnormal [facility] CenterBetahydroxy-Ervyuqko8065-53-71 07:26:24* Test Item Value Reference Range Interpretation Comme nts BOH (test code = 4910542903) 3.1 mmol/L ZULEIMA (test code = ZULEIMA) Normal Ranges: ? ? Nonfasting ? Less than 0.1 mmol/L ? ? Overnight Fast ? ? ? Less than 0.4 mmol/L ? ? Fasting (1-2 weeks) ?6-8 mmol/L Test developed and characteristics determined by [facility] Laboratory Services. [facility] CenterPO[facility]SE [facility]AUT[facility]ATED)2022-04-22 06:32:35* Test Item Value Reference Range Interpretation Comme nts POCT GLU (test code = 2639303207) 155 mg/dL 70-110 H Lab Interpretation (test cod e = 95563-9) [facility]normal [facility] CenterBasic Metabolic Panel (Na, K, Cl, CO2, Glucose, BUN, Creatinine, Ca)2022-04-22 06:02:22* Test Item Value Reference Range Interpretation Comme nts NA (test code = 9005818119) 134 mmol/L 135-145 L K (test code = 6818245997) 3.6 mmol/L 3.5-5.0 CL (test code = 2332737265) 104 mmol/L 98-108 CO2 TOTAL (test code = 8734288289) 11 mmol/L 23-31 L AGAP (test code = 3270198212) 2-16 H BUN (test code = 8044528039) 7 mg/dL 7-23 GLUCOSE (test code = 1425917731) 177 mg/dL 70-110 H CREATININE (test code = 5626953900) 0.81 mg/dL 0.60-1.25 CALCIUM (test code = 9335773915) 9.0 mg/dL 8.6-10.6 eGFR (test code = 3375262143) mL/min/1.73m2 ZULEIMA (test code = ZULEIMA) Association [...] imaging tests). Lab Interpretation (test code = 28075-1) Abnormal [facility] GLUCOSE (AUTOMATED)2022-04-22 04:35:23* Test Item Value Reference Range Interpretation Comme [facility] POCT GLU (test code = 9855051728) 154 mg/dL 70-110 H Lab Interpretation (test cod e = 56756-1) Abnormal [facility] GLUCOSE (AUTOMATED)2022-04-22 03:44:33* Test Item Value Reference Range Interpretation Comme [facility] POCT GLU (test code = 4074556377) 166 mg/dL 70-110 H Lab Interpretation (test cod e = 23363-8) Abnormal [facility] CenterLavaic Acid Whole Tvfkc5260-48-53 03:11:51* Test Item Value Reference Range Interpretation Comme [facility] LACTIC ACID (test code = 9013372990) 2.04 mmol/L 0.50-2.20 Lab Interpretation (test cod e = 44205-9) Normal [facility] Metabolic Panel (Na, K, Cl, CO2, Glucose, BUN, Creatinine, Ca)2022-04-22 02:17:22* Test Item Value Reference Range Interpretation Comme nts NA (test code = 8537164521) 134 mmol/L 135-145 L K (test code = 4830671599) 4.3 mmol/L 3.5-5.0 CL (test code = 9879572742) 101 mmol/L 98-108 CO2 TOTAL (test code = 6157918359) 10 mmol/L 23-31 L AGAP (test code = 6185856175) 2-16 H BUN (test code = 8796345510) 8 mg/dL 7-23 GLUCOSE (test code = 7976329613) 128 mg/dL 70-110 H CREATININE (test code = 9163262368) 0.92 mg/dL 0.60-1.25 CALCIUM (test code = 5546552740) 9.2 mg/dL 8.6-10.6 eGFR (test code = 7674242800) mL/min/1.73m2 ZULEIMA (test code = ZULEIMA) Association [...] imaging tests). Lab Interpretation (test code = 36097-6) Abnormal [facility] GLUCOSE (AUTOMATED)2022-04-22 02:16:37* Test Item Value Reference Range Interpretation Comme nts POCT GLU (test code = 9396149522) 132 mg/dL 70-110 H Lab Interpretation (test cod e = 01495-0) Abnormal [facility] GLUCOSE (AUTOMATED)2022-04-22 01:19:28* Test Item Value Reference Range Interpretation Comme [facility] POCT GLU (test code = 9549351336) 142 mg/dL 70-110 H Notified Provide r Lab Interpretation (test code = 64842-0) Abnormal [facility] CenterGlycosylated Hemoglobin (A1C)2022-04-22 01:01:17* Test Item Value Reference Range Interpretation Comme [facility] HGB A1C (test code = 4548-4) 10.5 % 4.0-5.7 H ZULEIMA (test code = ZULEIMA) Reference RangesNormal: <5.7%Prediabetes: 5.7 - 6.4%Diabetes: > 6.5% Lab Interpretation (test code = 12104-2) Abnormal [facility] CenterMagnesium Dfyzh8154-53-10 00:42:52* Test Item Value Reference Range Interpretation Comme nts MAGNESIUM (test code = 1965761410) 1.9 mg/dL 1.7-2.4 Lab Interpretation (test cod e = 54985-4) Normal [facility] CenterPhosphorus Agvyf9407-65-90 00:42:32* Test Item Value Reference Range Interpretation Comme nts PHOSPHORUS (test code = 0090428352) 5.1 mg/dL 2.5-5.0 H Lab Interpretation (test cod e = 10511-8) Abnormal [facility] CenterAC PANEL 21 + LACTIC AUEG7277-98-33 00:14:12* Test Item Value Reference Range Interpretation Comme nts PH (test code = 8434102483) 7.32-7.42 L PCO2 SAKINA (test code = 5782076883) See_Comment L [Automated messa ge] The system which generated this result transmitted reference range: 41 - 51 mmHg. The reference range was not used to interpret this result as normal/abnormal. PO2 SAKINA (test code = 6349482293) See_Comment H [Automated messa ge] The system which generated this result transmitted reference range: 25 - 40 mmHg. The reference range was not used to interpret this result as normal/abnormal. HCO3 SAKINA (test code = 7907052763) See_Comment L [Automated messa ge] The system which generated this result transmitted reference range: 24 - 28 mEq/L. The reference range was not used to interpret this result as normal/abnormal. AC VBE(BEAKER) (test code = 9999172308) mEq/L THB SAKINA (test code = 4433142899) 16.5 g/dL 13.5-18.0 %O2HB SAKINA (test code = 9787317570) 84.9 % 52.0-63.0 H %COHB SAKINA (test code = 5407484106) 0.3 % 0.0-1.5 %METHB SAKINA (test code = 7283121295) 0.1 % 0.4-1.5 L VOL%O2 SAKINA (test code = 2581941584) 19.6 % 6.0-12.0 H NA (test code = 5913435945) 134 mmol/L 135-145 L K+ (test code = 9457481662) 3.7 mmol/L 3.5-5.0 AC CA IONZ (test code = 6151847146) 5.30 mg/dL 4.50-5.30 GLUCOSE (test code = 3483008649) 155 mg/dL 70-110 H LACTIC ACID (test code = 7011201202) 2.34 mmol/L 0.50-2.20 H Lab Interpretation (test code = 88447-8) Abnormal [facility] Y8853-48-48 23:48:43* Test Item Value Reference Range Interpretation Comments TROPONIN I (test code = 0657347558) 0.002 ng/mL See_Comment [Automated message] The system [...] of biotin. Lab Interpretation (test code = 82084-7) Normal [facility] CenterN-TERMINAL VNZ-OJW8279-09-23 23:45:26* Test Item Value Reference Range Interpretation Comme nts NT-proBNP (test code = 3260351609) 38 pg/mL See_Comment [Automated message] The system which generated this result transmitted reference range: <=125. The reference range was not used to interpret this result as normal/abnormal. ZULEIMA (test code = ZULEIMA) Biotin has been reported to cause a negative bias, interpret results relative to patient's use of biotin. Lab Interpretation (test code = 64627-5) Normal [facility] CenterCOMP. METABOLIC PANEL (35953)2022-04-21 23:45:16* Test Item Value Reference Range Interpretation Comme nts NA (test code = 7221793418) 134 mmol/L 135-145 L K (test code = 1369471849) 4.3 mmol/L 3.5-5.0 CL (test code = 1187747087) 100 mmol/L 98-108 CO2 TOTAL (test code = 1844168771) 8 mmol/L 23-31 L AGAP (test code = 6721386327) 2-16 H BUN (test code = 2975250293) 8 mg/dL 7-23 GLUCOSE (test code = 6952745471) 169 mg/dL 70-110 H CREATININE (test code = 5658967982) 0.93 mg/dL 0.60-1.25 TOTAL BILI (test code = 3119317237) 1.1 mg/dL 0.1-1.1 CALCIUM (test code = 3305792424) 9.8 mg/dL 8.6-10.6 T PROTEIN (test code = 5535935095) 8.2 g/dL 6.3-8.2 ALBUMIN (test code = 1844836841) 5.0 g/dL 3.5-5.0 ALK PHOS (test code = 0979124915) 106 U/L 34-122 ALTv (test code = 1742-6) 64 U/L 5-50 H AST(SGOT) (test code = 6595455419) 47 U/L 13-40 H eGFR (test code = 1908300046) mL/min/1.73m2 ZULEIMA (test code = ZULEIMA) Association [...] imaging tests). Lab Interpretation (test code = 42437-3) [facility]normal [facility] CenterLIPASE2022-05-23 23:37:42* Test Item Value Reference Range Interpretation Comme [facility] LIPASE (test code = 4166889548) 106 U/L 0-220 Lab Interpretation (test cod e = 35875-3) Normal [facility] CenterPROTHROMBIN TIME / VKD6795-43-61 23:30:44* Test Item Value Reference Range Interpretation Comme [facility] PROTIME PATIENT (test code = 5964-2) See_Comment [Automated messa ge] The system which generated this result transmitted reference range: 12.0 - 14.7 Seconds. The reference range was not used to interpret this result as normal/abnormal. INR (test code = 6301-6) Normal INR <1.1; Warfarin Therapeutic range 2.0 to 3.0 or 2.5 to 3.5, depending upon the indications. Lab Interpretation (test code = 42788-1) Normal [facility] WITH DABB5237-43-72 23:22:44* Test Item Value Reference Range Interpretation Comme [facility] WBC (test code = 6690-2) See_Comment H [...] 33.4 g/dL 31.2-35.0 RDW-SD (test code = 52396-2) 38.3 fL 38.5-51.6 L RDW-CV (test code = 788-0) 12.3 % 12.1-15.4 PLT (test code = 777-3) See_Comment H [Automated messa ge] The system which generated this result transmitted reference range: 150 - 328 10*3/?L. The reference range was not used to interpret this result as normal/abnormal. MPV (test code = 38954-9) 9.2 fL 9.8-13.0 L NRBC/100 WBC (test code = 9893460326) See_Comment [Automated me ssage] The system which generated this result transmitted reference range: 0.0 - 10.0 /100 WBCs. The reference range was not used to interpret this result as normal/abnormal. NRBC x10^3 (test code = 4024302169) <0.01 See_Comment [Automated messa ge] The system which generated this result transmitted reference range: 10*3/?L. The reference range was not used to interpret this result as normal/abnormal. GRAN MAT (NEUT) % (test code = 770-8) 62.0 % IMM GRAN % (test code = 3475476245) 0.30 % LYMPH % (test code = 736-9) 29.7 % MONO % (test code = 5905-5) 6.5 % EOS % (test code = 713-8) 0.9 % BASO % (test code = 706-2) 0.6 % GRAN MAT x10^3(ANC) (test code = 9974156801) 7.25 10*3/uL 1.99-6.95 H IMM GRAN x10^3 (test code = 9611990078) 0.04 10*3/uL 0.00-0.06 LYMPH x10^3 (test code = 731-0) 3.48 10*3/uL 1.09-3.23 H MONO x10^3 (test code = 742-7) 0.76 10*3/uL 0.36-1.02 EOS x10^3 (test code = 711-2) 0.11 10*3/uL 0.06-0.53 BASO x10^3 (test code = 704-7) 0.07 10*3/uL 0.01-0.09 Lab Interpretation (test code = 71016-8) Abnormal [facility] CenterALBUMIN/CREATININE RATIO, URINE, RANDOM 2022-03-11 01:57:25* Test Item Value Reference Range Interpretation Comme nts CREATININE, URINE, RANDOM (test code = 2072) 61.2 MG/DL NOT ESTAB ALBUMIN, URINE, RANDOM (test code = 58974) <0.2 MG/DL NOT ESTAB CALC ALBUMIN/CREAT, RND (test code = 49036) <3 MG/G <30 Note: Albumin/Creatinine ratio reference interval reflects ADA and NKF guidelines. COMPREHENSIVE METABOLIC YAIKA0116-43-04 00:29:28* Test Item Value Reference Range Interpretation Comme nts GLUCOSE (test code = 2216) 413 MG/DL 70-99 H BUN (test code = 2207) 14 MG/DL 6-20 CREATININE (test code = 221) 0.81 MG/DL 0.80-1.40 eGFR (2020 CKD-EPI) (test code = 76379) 107 ML/MIN/1.73 >60 CALC BUN/CREAT (test code = 2234) 17 RATIO 6-28 SODIUM (test code = 2230) 138 MEQ/L 133-146 POTASSIUM (test code = 222) 4.2 MEQ/L 3.5-5.4 CHLORIDE (test code = 5) 96 MEQ/L 95-107 CARBON DIOXIDE (test code = 6) 24 MEQ/L 19-31 CALCIUM (test code = [...] = 2219) 54 U/L 5-50 H LIPID IAPFS8929-78-49 00:29:28* Test Item Value Reference Range Interpretation Comme nts CHOLESTEROL (test code = 2210) 174 MG/DL <200 TRIGLYCERIDES (test code = 2232) 311 MG/DL <150 H HDL CHOLESTEROL (test code = 222) 40 MG/DL >39 CALC LDL CHOL (test code = 2236) 93 MG/DL <100 NOTE: CALCULATED LDL IS BASED ON LEANDRO-BREWER METHOD WHICHINCLUDES ADJUSTABLE TRIGLYCERIDE:VLDL CHOLESTEROL RATIO.THIS FACTOR VARIES BY MEASURED TRIGLYCERIDE AND NON-HDLCHOLESTEROL CONCENTRATIONS WITH INCREASED CALCULATED LDL SEENIN HIGHER TRIGLYCERIDE OR LOWER NON-HDL SPECIMENS. FOR MOREINFORMATION, SEE CLIENT ANNOUNCEMENT AT [email or web address] RISK RATIO LDL/HDL (test code = 2238) 2.33 RATIO <3.55 HEMOGLOBIN Z8v8147-03-52 03:12:57* Test Item Value Reference Range Interpretation Comme nts HEMOGLOBIN A1c (test code = 63158) 11.3 % 4.2-5.6 H CITIZEN OF [place] [employer] GUIDELINES FOR HGB A1C: [...] CONSULTATION. UNLESS OTHERWISE INDICATED, ALL TESTING PERFORMED [facility] [address] [place] [address] [employer] APPRENTICE: MELECIO GREEN M.D. CLIA NUMBER [id number] [facility] [place] [place]. [id number] COMPREHENSIVE METABOLIC LXKQP2427-30-66 04:51:05* Test Item Value Reference Range Interpretation Comme nts GLUCOSE (test code = 7) 299 MG/DL 70-99 H BUN (test code = 2207) 15 MG/DL 6-20 CREATININE (test code = 2214) 0.67 MG/DL 0.80-1.40 L eGFR (2020 CKD-EPI) (test code = 76745) 114 ML/MIN/1.73 >60 CALC BUN/CREAT (test code = 2235) 22 RATIO 6-28 SODIUM (test code = 223) 143 MEQ/L 133-146 POTASSIUM (test code = 2228) 4.1 MEQ/L 3.5-5.4 CHLORIDE (test code = 2215) 105 MEQ/L 95-107 CARBON DIOXIDE (test code = 2206) 26 MEQ/L 19-31 CALCIUM (test code = 2209) 9.3 MG/DL 8.5-10.5 PROTEIN, TOTAL (test code = 2229) 6.5 G/DL 6.1-8.3 ALBUMIN (test code = [...] = 2219) 76 U/L 5-50 H LIPID DBOBX5282-08-06 04:51:05* Test Item Value Reference Range Interpretation Comme nts CHOLESTEROL (test code = 0) 213 MG/DL <200 H TRIGLYCERIDES (test code = 2232) 119 MG/DL <150 HDL CHOLESTEROL (test code = 2220) 77 MG/DL >39 CALC LDL CHOL (test code = 7) 113 MG/DL <100 H NOTE: CALCULATED LDL IS BASED ON LEANDRO-BREWER METHOD WHICHINCLUDES ADJUSTABLE TRIGLYCERIDE:VLDL CHOLESTEROL RATIO.THIS FACTOR VARIES BY MEASURED TRIGLYCERIDE AND NON-HDLCHOLESTEROL CONCENTRATIONS WITH INCREASED CALCULATED LDL SEENIN HIGHER TRIGLYCERIDE OR LOWER NON-HDL SPECIMENS. FOR MOREINFORMATION, SEE CLIENT ANNOUNCEMENT AT [email or web address] RISK RATIO LDL/HDL (test code = 2238) 1.47 RATIO <3.55 UNLESS OTHERW ISE INDICATED, ALL TESTING PERFORMED [facility]CL[facility] [address] [place] [address], [place] [address] [employer] APPRENTICE: MELECIO GREEN M.D. [place] NUMBER [id number] [facility] [place]. [id number] HEMOGLOBIN [id number] 02:53:45* Test Item Value Reference Range Interpretation Comme nts HEMOGLOBIN A1c (test code = 42677) 10.6 % 4.2-5.6 H CITIZEN [place] [employer] [employer] GUIDELINES FOR HGB A1C: [...] Notes Date/Time Note Provider Source 2024-02-26 11:00:16 6dmVo4j107kXufogWlzOq5ie0A8U007Piuja LZ40npLbjz+E+VcE0vYBbqepHj1S9418-99- 29T11:00:16Associated Order(s): CONSULT ADULT PHYSICAL THERAPY Patient [...] Precautions: Fall, Pulmonary,oxygen: Nasal canula 3 L J7Ocyliar/Cast present or required:N/APMH:Past Medical History:Diagnosis DateGERD (gastroesophageal [...] YesVision:good; no issues reported Hearing:good; no issues reportedORIENTATION/COGNITION:[place] ed to: person, place, date/time, and situationAwake: [...] in Minutes: 20 Priya Childress PTTX PT Qlwiyiq0602800NB[facility] ADCRehabilitation Services [phone] (phone) (fax) 19094-3Qletzpv qspiJT2316-77-80O81:12:47Consult noteTXT1.2.840.689927.1.13.104.2.7.2 .682616|[id number] for patient cssm17880-9Vwhpkvd noteLNNARRATIVEFormatted C-CDA narrative [id number] Johanson [facility] - [address] Ue[id number] CRGWBERQQVYWXWKWOYCWVW4529-47-14Q69: 12:471.2.840.355868.1.72.3.15|1.2.84 0.672635.1.13.104.2.7.2.727879_20611 61448 Frida Childress PT [facility] - Health History and Physical Notes Date/Time Note Provider Source 2024-02-24 15:13:16 G/0+HxxaTyg8l1/6vAsc eNwDl41ZvXAKrFKU625+1Se pyoGs/OuNNtHGrw0jOfF76478-55-09D53:13:16For matting of this note is different from the original.[facility] Hospitalist Admission H&PDate of Service: 4CHIEF COMPLAINT: Fatigue and weaknessHISTORY OF PRESENT ILLNESSLeandro Lehman is a 53 year old male with history of insulin-dependent diabetic, HTN, CAD, IA in 10/22, proximal A-fib, GERD, chronic hypoxic [...] Comments:Reason for Stopping:METOPROLOL SUCCINATE ORAL Comments:Reason for Stopping:bfgbe-1-zkv-xgc-wbv-vyqj oil (OMEGA-3 2100) 1,050-1,200 mg Cap Comments:Reason [...] gallbladder inflammatory changes.Preliminary Report Dictated by Resident: Rose Mary Rodriguez, Robel Mckeon MD., have reviewed this study and agree [...] reviewed this study and agree withthe above report.ASSESSMENT/PLANColumbagracia Walters 53 years old male admitted for:Weakness [...] Full codeSmoking Cessation: (Z71.6)Tobacco user?: Former smokerObservationTexas IT SPECIALIST was viewed during this stayTanya Nichol Swartz, FNP ssociated attestation - Sachin Mcallister DO - 02/24/2024 8:12 PM CDT I have independently seen and evaluated this patient. I agree with the findings and documentation provided in the nurse practitioner's notes. Medicine team will continue to provide daily care.In summary this is a 53-year-old male with past medical history including diabetes, hypertension, coronary disease status post IA, paroxysmal atrial fibrillation, GERD, chronic hypoxic respiratory failure on 3 L nasal cannula oxygen who presented for generalized weakness with intractable nausea vomiting secondary to suspected diabetic gastroparesis. Continue on Reglan as needed Zofran. Encourage patient to have small frequent meals. Rest of plan events outlined below.Sachin Mcallister DO 02/24/2024 8:11 CE73372-5Hifjipk and physical vdwlCA9871134Scvqzy, David1.2.840.561038.1.13.104.2.7.2.759781Nx elswCqlsdBI0311-39-15P06:12:28History and physical noteTXT1.2.840.239450.1.13.104.2.7.2.380564 |[id number] for patient eyqr52441-1Smqhpce and physical noteLNNARRATIVEFormatted C-CDA narrative [address] VqmsPl[id number] ZFCODORRXDWGWGX6941-18-75V84:12:281.2.840.1 61692.1.72.3.15|1.2.840.206371.1.13.104.2.7 .2.727879_[id number] [facility] Notes Date/Time Note Provider Source 2024-03-01 10:34:42 Z/Z44o6E+46r3mHNd64s Gxofpbs8DCbybZJ utJy97JCpJoc6Re0YTyA/9umoDmSk6513-4 03-01T10:34:42 TRANSITIONAL CARE MANAGEMENT ASSESSMENT03/01/2024Leandro LehmanNwcgujejm649981SCigabe Gutierrez is a 53 year old /White male was admitted on 02/24/24 to [facility], ADC MED SURG. He was discharged on 02/27/24 with discharge disposition of HR- Routine Discharge.Admitting Physician: Doc Mcallister Diagnosis: WeaknessIntractable N/VHypokalemiaUncontrolled ZS9Xiesell hypoxic respiratory failureLinked EpisodesType: Episode: Status: Noted: Resolved: Last update: Updated by:TRANSITION OF CARE TCM Active 02/27/2024 02/29/2024 2:06 PM Florence Downs RNComments:02/27/2024TCM Fuu-pmvw-bo-face outreach documentation: Care Transition CM made f/u call to pt post-discharge x2. No response and call went to voicemail. CM left a discreet message with purpose of call and CM's call back information.Discharge AssessmentChart Assessed: 03/01/24TCM Outreach Completed: 03/01/24Future Appointments: 21174-4Eegrkscta encounter IuiiKB1414-33-70C18:35:13Telephone encounter NoteTXT1.2.840.529926.1.13.104.2.7. 2.214314|3713130141WJHiafgqykl for patient ciiz73260-4ZnflDUYDPSXPTPNVirkwnmwy C-CDA narrative [id number] M Manrique RN[address] OsbpNbvm[id number] 6MXBXLVBLEXYQMNXZGMTLKG5466-65-98E4 0:35:131.2.840.068953.1.72.3.15|1.2 .840.009713.1.13.104.2.7.2.727879_2 [id number] Florence Downs RN [facility] 2024-02-29 14:06:15 XvfP7RewmQNXctUmA/M2 NR3kA5Aed+YUaug H2oSsKRxlGegbcaVhT485oAs0M8uV6849-5 02-28T14:06:15 Care Transition CM made f/u call to pt post-discharge. No response and call went to voicemail. CM left a discreet message with purpose of call and CM's call back information.Florence Downs RN, BSNCare Head Of Strategy-Transitions of Hqnt228-792-1437Ylrogofgebfzge signed by Florence Downs RN at 02/29/2024 2:06 PM QWD01554-1Geowuuija encounter IhjeLM4621-92-67A33:06:27Telephone encounter NoteTXT1.2.840.009759.1.13.104.2.7. 2.442720|[id number] for patient ndqf93150-9ZwibEPUXBFWTMJAAuodigvfb C-CDA narrative text[address] CiauOqazfurtvPipcpxchpDZRE393437966 3TXBQECUSJDRLZZRHJLVPSR3008-49-68H4 4:06:271.2.840.635239.1.72.3.15|1.2 .840.535962.1.13.104.2.7.2.727879_2 [id number] [facility] 2024-02-27 17:14:12 //T8REE2LMrm0L0XvbKj tfUnspavLAzpsjI lRnZQA9iv4sX3xDCR7SDpA4vZl6aW3268-4 7:14:12 Problem: Discharge PlanningGoal: Adequate for discharge02/27/2024 1714 by Maritza Bui RNOutcome: Adequate for discharge02/27/2024 1440 by Maritza Bui RNOutcome: Progressing as expectedGoal: Effective communication02/27/2024 171 by Maritza Bui RNOutcome: Adequate for discharge02/27/2024 1440 by Maritza Bui RNOutcome: Progressing as expectedProblem: Nausea/VomitingGoal: Absence of nausea/vomiting02/27/20241713 by Maritza Bui RNOutcome: Adequate for discharge02/27/2024 1440 by Maritza Bui RNOutcome: Progressing as expectedProblem: PainGoal: Control of pain at or below patient's documented comfort goal02/27/2024 1714 by Maritza Bui RNOutcome: Adequate for discharge02/27/2024 1440 by Maritza Bui RNOutcome: Progressing as expectedGoal: Reduction in pain sensation02/27/2024 1714 by Maritza Bui RNOutcome: Adequate for [...] by Maritza Bui RNOutcome: Progressing as expected 45143-0Dagr of care nvrjPX5602-59-23G28:14:20Plan of care noteTXT1.2.840.735483.1.13.104.2.7. 2.974214|1853006475SDPsztxnasv for patient rgey78499-1OiwmIGWPVUVVETDBrazbwglb C-CDA narrative [id number] Foster RNUTMBUTMB - [address]IlgiAbuxkinedJerofnaqlGYZZ900490829 2UDQBLTQTSVHRTJKXJUAJJL2290-03-04B1 7:14:201.2.840.458562.1.72.3.15|1.2 .840.143137.1.13.104.2.7.2.727879_2 [id number] Maritza Bui RN [facility] 2024-02-27 14:40:10 Ixgmqbjk5MdYMEo9PVmz Vv2nj8+sL1KDRvR YbNa7NRaHk2ysqJs0bLU8JgWSe0kg9851-4 4:40:10 Problem: Discharge PlanningGoal: Adequate for dischargeOutcome: [...] as expectedGoal: Patent airwayOutcome: Progressing as expected 78582-3Peke of care odbpVV3126-19-43S63:40:19Plan of care noteTXT1.2.840.072520.1.13.104.2.7. 2.338017|[id number] for patient elmf30206-0IctmTDNWIFWFSJRHukemqzbl C-CDA narrative [address] Nm[id number] 7MYHCDSMFSHAHTBERPCFHSM1437-91-67A3 4:40:191.2.840.080897.1.72.3.15|1.2 .840.640339.1.13.104.2.7.2.727879_2 [id number] [facility] 2024-02-26 16:38:21 0jkvzdtClu2i/Jdm8ArL [facility] [place]/lGhci8m9ki5 oPkxIMlLGawzUXeuOYtsU3veo/iCz4579-4 6:38:21 Problem: Discharge PlanningGoal: Adequate for dischargeOutcome: [...] as expectedGoal: Patent airwayOutcome: Progressing as expected 64703-9Ornz of care jrlqUO7495-61-72M74:38:24Plan of care noteTXT1.2.840.562400.1.13.104.2.7. 2.122392|[id number] for patient iasp69902-6IdysCGJWDVDPPMHCsbbavfyn C-CDA narrative [address] Dl[id number] 6PCWQVDWZQZTFOMWFMIHILX4125-85-06J0 6:38:241.2.840.577803.1.72.3.15|1.2 .840.428240.1.13.104.2.7.2.727879_2 [id number] [facility] 2024-02-26 01:49:55 HWiky/qzJtkesZ4sc8V0 qv1Dig2msN3Oj9O dEBkiayjWsX8Z0r1wPgmgy948JqIO4654-3 01:49:55 Problem: Discharge PlanningGoal: Adequate for dischargeOutcome: [...] as expectedGoal: Patent airwayOutcome: Progressing as expected 35745-6Bxxp of care ojweUM2386-49-81S10:49:58Plan of care noteTXT1.2.840.591620.1.13.104.2.7. 2.829605|[id number] for patient ctzo79817-4DcdmXJAOHQHCBVVDxeyydshc C-CDA narrative oqry602615544Fctbslhb Smith RN[address] Ps[id number] 9IFIVKKYGLDGKNHGEVMDXPF4016-62-43O1 1:49:581.2.840.363803.1.72.3.15|1.2 .840.070313.1.13.104.2.7.2.727879_2 [id number] Shashi Saez RN [facility] 2024-02-25 19:27:15 hN/2lc2FiMX7wmNyF5/H NRugweZ5dsUouOK 09tWfJg02FW+ck2/a+dxaABEwcAHB9554-0 9:27:15 Problem: Discharge PlanningGoal: Adequate for dischargeOutcome: Progressing [...] of new skin breakdownOutcome: Progressing as expected 69279-7Jdiy of care sijmKV5659-77-21Y40:27:17Plan of care noteTXT1.2.840.352652.1.13.104.2.7. 2.531194|4191017279NZTljdydevp for patient nnqr99337-4MdvvTAWHVTFQFRTIwjopuyjj C-CDA narrative qhbt054021183Hkovxfm C Johnson RN[address] PfeqOmoklicpbEotpnyweuWRSS625774739 3ORNQJIYVOAGGGFZXZLIRMD7592-60-38L9 9:27:171.2.840.785991.1.72.3.15|1.2 .840.517635.1.13.104.2.7.2.727879_2 [id number] Maria Esther Camilo RN [facility] 2024-02-25 05:44:32 SqBxxXMaZzLQtZ9mzlW4 F57puLpVTM2OPRA 9oR8nMEJBTfAkdPm1AXbqWgzKA73f9092-7 05:44:32 Problem: Discharge PlanningGoal: Adequate for dischargeOutcome: Progressing as expectedProblem: Nausea/VomitingGoal: Absence of nausea/vomitingOutcome: Progressing as expectedProblem: PainGoal: Control of pain at or below patient's documented comfort goalOutcome: Progressing as expectedProblem: Falls, Risk ofGoal: Absence of fallsOutcome: Progressing as expected 69098-0Oyzp of care kayzWW3636-65-11B46:44:39Plan of care noteTXT1.2.840.938677.1.13.104.2.7. 2.964747|8292850549HVIjnmjugvo for patient apxr74673-4NpnaZBZCVLKRATUPzlucswkk C-CDA narrative ikji635700391Gaggdu Darnell MICHEL[address] NvvfFseuffyrmNttbrtrnlMLZY467277384 5IAAZATNJFKSZZBCEYYNMCE6871-17-65Y5 5:44:391.2.840.369770.1.72.3.15|1.2 .840.722346.1.13.104.2.7.2.727879_2 [id number] Thursday Darnell MICHEL [facility] 2024-02-24 16:20:12 OXjFS2ET9HVC87IL5Oiz +kOyJM3+G8UmQ84 wVrgvKZ51RKgxGLntKqgcpGbzmRXC5064-7 02-23T16:20:12 Problem: Discharge PlanningGoal: Adequate for dischargeOutcome: Progressing as expectedGoal: Effective communicationOutcome: Progressing as expectedProblem: Nausea/VomitingGoal: Absence of nausea/vomitingOutcome: Progressing as expectedProblem: PainGoal: Control of pain at or below patient's documented comfort goalOutcome: Progressing as expectedGoal: Reduction in pain sensationOutcome: Progressing as expectedProblem: Falls, Risk ofGoal: Absence of fallsOutcome: Progressing as expected 81679-1Twqg of care bmvwSD3128-90-72W40:20:14Plan of care noteTXT1.2.840.201539.1.13.104.2.7. 2.399373|2680281644VNSdcejsuvb for patient fzgi09636-4EikgLMLSPWYZGGPGyxmrcard C-CDA narrative text[id number] 1EFQENFPBVTJHLBQGFCPCJV5296-41-49X7 6:20:141.2.840.154425.1.72.3.15|1.2 .840.816532.1.13.104.2.7.2.727879_2 [id number] [facility] 2024-02-24 12:22:47 YNKbUvufR5sh2cYbpme/ U6TJwhYDnvifwvz Y3qcWpLYCHr2Tyq7fFWtXv4GQ9V/Q6013-1 2:22:47 Patient admitted to [place] [address] for diagnosis of fatigue, n/v, hypokalemia, lactic acidosis, DM type 2.Patient agrees to admission, discussed plan of care with patient and family.Patient is awake, alert, oriented, resp reg unlabored, color appropriate for race, PIV intact.No adverse reaction to medications administered while in ED.Belongings with patient to unit. 60425-7Ajexnkkby department StniWJ7486-62-31B58:23:56Emergency department NoteTXT1.2.840.565631.1.13.104.2.7. 2.889594|[id number] for patient bggs04549-0RmtnIOEJKXBRXPKMlgilqkip C-CDA narrative fyqg830325733Jzzitqesjoy WILSON[id number] 6PFRPYKFXXIHMXAVFHSVDYJ6786-76-83Y3 2:23:561.2.840.546333.1.72.3.15|1.2 .840.077246.1.13.104.2.7.2.727879_2 [id number] Risa Conde RN [facility] 2024-02-24 12:19:57 lA6BVTF5fPkvRG+fT6Cg QlkjhsaRMnlggES yapS3MLntOVNMnFLe7nIomWyKdN6g1514-0 2:19:57 Nurse ReportReport given to sherman Lorenzo. Chief complaint, assessment findings, infusion verify and orders reviewed. Plan of care discussed. Patient/[place] [address]-7Rqobgdqei department XokpZC8788-74-36U42:21:11[facility] NoteTXT1.2.840.226044.1.13.104.2.7. 2.133535|6340429370TJLwindfivn for patient ucky91146-1KuwoVWYSGRKIHLUCynhltscy C-CDA narrative textUT[address] NtqaLmzsdpidsLqntaepkoKRBL989782028 1SGJDOVFKKXISNDKWHCTVNS3840-60-97N0 2:21:111.2.840.635108.1.72.3.15|1.2 .840.659699.1.13.104.2.7.2.727879_2 [id number] [facility] 2024-02-24 07:10:01 OV9s3ahZebreYfoIYMon Eh3wxYyczRuLzGX Lindsey/JMZuLaGm6Zrd7ksNQknslX2l1W2354-9 07:10:01 Report to Cordel 71988-2Prdbzeibe department NvcbXY6304-38-99J51:10:12[facility] NoteTXT1.2.840.250217.1.13.104.2.7. 2.064036|2169772921GJUtvtyieyn for patient hged53636-1UgeaYBBDJWVMRZCAxhyjddys C-CDA narrative ufyj382600687Yufuik R Shehadeh RN[id number] 5MZBEEYNJXMFIOZFRKKVFBE3334-02-89V9 7:10:121.2.840.060595.1.72.3.15|1.2 .840.441792.1.13.104.2.7.2.727879_2 [id number] Rabia Owusu RN [facility] 2024-02-24 04:02:17 e2UP/omdvsjrOW58Y6xr sa/YbaZgd94IVcP B47Tp7yJqMWQfxKBsIJzkXUv9GJxj6240-7 04:02:17 Pt encouraged to give urine sample, states he cannot void at this time. 55085-9Adfkyzzvv department WjvgOF0635-30-20O88:03:51[facility] NoteTXT1.2.840.658817.1.13.104.2.7. 2.839700|6273044684NUDwmclmpkr for patient fwvc28565-6AutmGJEPOTVETXHSjizhqgif C-CDA narrative text[id number] 5CPYCFSGLHDOOSXNSPLVYXZ5821-44-93A9 4:03:511.2.840.645222.1.72.3.15|1.2 .840.883838.1.13.104.2.7.2.727879_2 [id number] [facility] 2024-02-24 00:55:26 J/MlMp02mYzkFNkUq/DY 7/416nlXJH6X+N7 ZEvS2p+WUCAT7oZv+lz9pusjpAyge9022-7 00:55:26 Pt arrived with c/o fatigue, weakness, and dizziness. Pt was seen on Thursday at [facility] for this on Thursday. Pt was swapped for Covid and Flu and had a negative work up. He was given Pepcid and Zofran for symptoms. report he has been in bed for more than a 1 week with these symptoms and has has no relief.Denies: abdominal pain 30177-1Mrulbcprj department Triage zpzrYS6683-42-00G41:58:39[facility] Triage noteTXT1.2.840.787659.1.13.104.2.7. 2.059585|1778560966TAElxckrvhs for patient stvm24873-6Hfvxksdpb department NoteLNNARRATIVEFormatted C-CDA narrative uezo342784051Yxvflrv A Diaz RN[address] BwltPyglfgjvrIzxrupkzlZBIS395575521 7CRMIXWSMCHVWYLXDHEVLVB6043-56-98J1 0:58:391.2.840.784810.1.72.3.15|1.2 .840.446793.1.13.104.2.7.2.727879_2 [id number] Eden Kapoor RN [facility] 2024-02-24 00:47:00 y9FVXCwyBtqFTSm9vpIr 60FU1W+G5jrDBH4 P3VBo5Du5pKGJsyDpUbIyrvDjue0v7881-4 3-27T00:47:00Associated Order(s): EKG-12 Lead ROUTINE ONCEPre-Procedure Diagnose(s): Fatigue, unspecified typePost-Procedure Diagnose(s): Fatigue, unspecified type [facility] Emergency Department NotePatient Name: Leandro Walton of : 1970 53 year old maleTreatment Room: MD6/FN4Swcqyyn Record Number: [id number] Care Physician: Natacha SomersPatient Escorted by: Family [5]Mode of Arrival: Personal means [1]EMS Treatment Prior to ED Arrival:CRUISE DIRECTOR treatment: NoneTravel and Exposure Screening:SymptomsDoes patient have [...] to eat/drink anything. Pt was seen at [facility] on 02/16/2024 and had work up done [...] and is on Oxygen 4 liter/min by [place] at home. He also has hx of DKA. Pt had "heart attack " in Sep 2023 and was admitted again to hospital for nausea, vomiting, dehydration, renal failure, and respiratory failure. Pt was discharged home prior to 2022 and had been doing well until he got sick 11 days agoPt reports medication compliance with his regular medications.History provided by: PatientHistory limited by: none.medical receptionist medical assistant used: NoPast Medical History/Immunizations:Past Medical History:Diagnosis Date [...] Rose Mary Holcomb Results:Lab ResultsCOMP. METABOLIC PANEL (57499) - AbnormalResult Value Ref RangeNA 132 (*) [...] 102 (*) 13 - 40 U/LeGFR 84.4 mL/min/1.52i6OLZ WITH DIFF - AbnormalWBC 7.53 4.20 - [...] Negative NegativeCOVID-19 (ID NOW RAPID TESTING) - BqtxlnJDZW-KnW-3 Rapid ID NOW Not Detected Not DetectedURINALYSISN-TERMINAL [...] 500 mLFirst Provider Eval:ED EventsDate/Time Event User Plaregbw03/27/24100 Medical Screening Begins JODY HEARD --02/24/24100 First Provider Evaluation JODY HEARD --ED QBJZHS89 y/o male pt presents to ER for [...] mellitus with other specified complication, unspecified whether corporate concierge insulin useIntractable nausea and vomitingProcedures:EKG-12 Lead ROUTINE [...] mellitus with other specified complication, unspecified whether corporate concierge insulin use: chronic illness or injury with [...] 50 mg by mouth 2 (two) times daily.LYRHE-0-UJB-EVW-RBP-PLFN OIL (OMEGA-3 2100) 1,050-1,200 MG CAP Take [...] medicationsNo medications on fileFollow-up:Electronically signed by:Jody Cruz FNP02/24/24 0346 ssociated attestation - Jasmin Russell MD - 02/24/2024 11:59 PM CDT Negrita was personally available for consultation in the Emergency Department during this encounter and patient evaluation by SANTIAGO Cruz.68098-4Bchjdmafp Emergency department RrvrHW6433918Inkrdc, [place] S1.2.840.945966.1.13.104.2.7.2.8369 19VcyjipKhcmbmQAV5830-92-86L03:59:3 5Physician Emergency department NoteTXT1.2.840.967604.1.13.104.2.7. 2.157874|[id number] for patient dbdf80162-3Rnvrpycyy department NoteLNNARRATIVEFormatted C-CDA narrative text[address] OccjFbuhljtyiZsxzywlxgWTUE707334324 8QWTVNHLIVZQGYSJCYHISOR6559-61-22N1 3:59:351.2.840.717337.1.72.3.15|1.2 .840.327244.1.13.104.2.7.2.727879_2 [id number] [facility] 2023-12-15 15:16:00 T88857517261Qm3KMBp2 smqPpQAh1HCROwo bDMzEWcudpLp8/68kWXgs/Msa/vti/04lEq p/vDPv8658-87-66B25:16:802108-9388 [facility] PATIENT NAME: LEANDRO LEHMAN ADMIT DATE: 11/10/23ACCOUNT NO: [id number] ROOM NO: V.2086 AGE: 53 REPORT TYPE: 360 - QUERY RESPONSE DOCUMENT SEX: M DATE OF : [birth year]ADMITTING PHYSICIAN:Jeremias Ibarra MD ATTENDING PHYSICIAN:Jeremias Ibarra MD Provider Query QUERY TEXT: Condition General 360MD Query related questions should be directed to: [phone] Based on the information in the medical [...] 3.375 mg every 8 hours. DC Summary 778811 Possible aspriation pneumonitis vs pulmonary edema. Pulmonology pns 604606 Options provided:-- Respond - Create new note now-- Dismiss - Not applicable / Not valid-- Dismiss - Clinically unable to determine / Unknown-- Assign to another provider QUERY RESPONSE: Aspiration pneumonia Query created by: Sydnee Rangel on 12/12/2023 9:46 AM at 1516 PATIENT NAME: LEANDRO LEHMAN noteV.[id number] for patient uvcqVIRFORWFPXQGOU7859-68-16Q50:18: 15 [facility] 2023-12-12 09:03:00 N11394256002NSmYX/H5 4YeNBKLVf0NiPft REByTGxqHUs398xmQdsdp9J00pLU6wClna6 TDBOUm9881-53-57G86:03:116502-0963 [facility] PATIENT NAME: LEANDRO LEHMAN ADMIT DATE: 11/10/23ACCOUNT NO: [id number] ROOM NO: V.2085 AGE: 53 REPORT TYPE: 360 - QUERY RESPONSE DOCUMENT SEX: M DATE OF : [birth year]ADMITTING PHYSICIAN:Jeremias Ibarra MD ATTENDING PHYSICIAN:Jeremias Ibarra MD Provider Query QUERY TEXT: POA Indicator 360MD Query related questions should be directed to: [phone] Please indicate if the diagnosis of Sepsis was present on admission? The patient's Clinical Indicators include:The patient has severe sepsis with septic shock. pneumonia. Coding query response 532991Ofyfmht provided:-- Yes-- No-- W-- Other - I will add my own diagnosis-- Dismiss - Not applicable / Not valid-- Dismiss - Clinically unable to determine / Unknown-- Assign to another provider QUERY RESPONSE: Sepsis ruled out Query created by: Sydnee Rangel on 2023 9:52 AM at 0903 PATIENT NAME: LEANDRO LEHMAN noteV.[id number] for patient vvilJYVDQUPOUXZURY1031-31-86V37:04: 02 [facility] 2023-11-19 15:30:00 Q97190447343R+1Wj2L+ RajRwJRAA/+Tk3z OflzN1evvDaDTmAx7B6S4S5pWppqVSCreNs iz8viA8216-38-98K33:30:780365-3288 [facility] PATIENT NAME: LEANDRO LEHMAN ADMIT DATE: 11/10/23ACCOUNT NO: [id number] ROOM NO: V.2085 AGE: 52 REPORT TYPE: 360 - QUERY RESPONSE DOCUMENT SEX: M DATE OF : [birth year]ADMITTING PHYSICIAN:Jeremias Ibarra MD ATTENDING PHYSICIAN:Jeremias Ibarra MD Provider Query QUERY TEXT: Clarification Infectious Status 360MD Query related questions should be directed to:[facility] Coding Query Helpline Based on your clinical judgment, please clarify the condition(s) that represent(s) the clinical indicators listed below. The following definitions are provided based on industry literature and in collaboration with [facility] Clinical Services Group for your reference only:--Localized [...] AM at 1530 PATIENT NAME: LEANDRO LEHMAN noteV.[id number] for patient pchyFOZKCOYNKBRYMZ6527-38-32F46:32: 09 [facility] 2023-11-18 21:41:00 T776989210108fbV9b54 bj+D4PirMVIw0iF OJw+kAfoIPox3cRBHP2L6dMGowPwktqRkIl Uq+I2Z5734-71-56B00:41:00 [facility] ([facility])Nephrology Progress NoteREPORT#:[id number] REPORT STATUS: SignedREPORT INITIALIZATION DATE:11/18/23 TIME: 2140 PATIENT: LEANRDO LEHMAN UNIT #: [id number]#: [id number] ROOM/BED: 2085-ADOB: [birth year] AGE: 52 SEX: M ATTEND: Jeremias Ibarra MDADM AUTHOR: Christa Maurer MDREPT SERVICE DT/TIME: 11/18/232140 [...] He endorsed having used Advil or Aleve brte-rog-nlesgsf for back pain but not more than [...] He endorsed having used Advil or Aleve dzlm-pje-pagihxo for back pain but not more than [...] renal dosing of medication. at 2143 RPT #:[id number] OF REPORTPRProgress nnmi8657-11-19O75:41:00V.ZDSA009578 20-9AVAvailable for patient mqmrFMJXTMZYXGXTYK3414-50-07S97:43: 19 [facility] 2023-11-17 22:42:00 Q041198306789sG5Oyx5 yyKN+0Pl5DI5kAi fxVN7X8Q9rQ7pgSGA6XiFpXr/qpwPuZ9mOl Coh9ZN5998-68-79X60:42:00 [facility] ([facility])Nephrology Progress NoteREPORT#:[id number] REPORT STATUS: SignedREPORT INITIALIZATION DATE:11/17/23 TIME: 2241 PATIENT: LEANDRO LEHMAN UNIT #: [id number]#: [id number] ROOM/BED: -ADOB: [birth year] AGE: 52 SEX: M ATTEND: Jeremias Ibarra [facility] AUTHOR: Christa Maurer MDREPT SERVICE DT/TIME: 11/17/232241 [...] He endorsed having used Advil or Aleve akom-tbr-qxpuyhx for back pain but not more than [...] He endorsed having used Advil or Aleve tnsp-qod-zjtkght for back pain but not more than [...] renal dosing of medication. at 2243 RPT #:[id number] OF REPORTPRProgress zkjb2337-55-14N93:42:00V.[id number] AVAvailable for patient aroiDZMFSPCOHDAQQB1035-81-67L10:43: 57 [facility] 2023-11-17 18:00:00 [id number] BK/avD13oMzeDTR p2jRJHyBHKFxWvI46S4Lsx4YfHDoC9zGAQA uUFght7183-59-57B45:00:00 [facility] ([facility] Progress NoteREPORT#:[id number] REPORT STATUS: SignedREPORT INITIALIZATION DATE:11/17/23 TIME: 1800 PATIENT: LEANDRO LEHMAN UNIT #: [id number]#: [id number] ROOM/BED: [facility]-ADOB: [birth year] AGE: 53 SEX: M ATTEND: Jeremias Ibarra MDADM AUTHOR: Jose Miguel Roca MDREPT SERVICE DT/TIME: 11/17/23 1800 * ALL edits or amendments must be made on the electronic/computer document * SubjectiveChief complaint:Shortness of breathHPI:52-year-old male was transferred from outside facility to [facility] with shortness of breath patient is obese, never been diagnosed with obstructive sleep apnea. Patient was admitted from October 19 8 November 05, with hypercapnic respiratory failure-also had left heart cath which was normalCT chest reviewed it is showing possibility of aspiration versus resolving pneumonia may be mild pulmonary edema External record: Patient was recently admitted at [facility] from October 27 through November 05 with [...] clear to auscultationAbdomen: soft, non-tenderExtremities: no pedal edemaNeuro/ADMINISTRATIVE PROJECT COORDINATOR: alert Diagnosis, Assessment PlanFree Text A P:52-year-old [...] likely has COVID-related scarring at 1727 RPT #:[id number] OF REPORTPRProgress kgmt6601-05-06G43:00:00V.GDSI141613 AVAvailable for patient kmvhSUCBQDKKOZXKYV8087-16-88R16:28: 44 [facility] 2023-11-17 16:00:00 [id number]+4 n6/Ye+xM7BJ/TUF Luz6rGErexO7TI2WjbVskFHKpK9vOAa0Yi0 XwHrvn2127-09-52D66:00:00 [facility] ([facility])Hospitalist Discharge SummaryREPORT#:[id number] REPORT STATUS: SignedREPORT INITIALIZATION DATE:11/17/23 TIME: 1600 PATIENT: LEANDRO LEHMAN UNIT #: [id number]#: [id number] [address] [birth year] AGE: 52 SEX: M ATTEND: Jeremias Ibarra MDADM AUTHOR: Jeremias Ibarra MDREPT SERVICE DT/TIME: 11/17/23 1600 * ALL edits or amendments must be made on the electronic/computer document * General InformationDate of admission:Observation Start Date: Date of admission: 11/10/23 Discharge date: 11/17/23Discharge diagnosis:acute respiratory failure with hypoxemiapneumoniaHospital course:# Acute respiratory failure with hypoxemiasecondary to pneumoniaimproved. floor covering installer recommends weaning oxygen. patient weaned to 4L [...] Result Date Time Pulse Ox 93 11/17 161 B/P 132/70 11/17 161 B/P Mean 90.3 11/17 161 O2 Delivery Nasal cannula 11/17 1613 Temp [...] range of motion, no CVA tenderness,no muscle spasmNeuro/ADMINISTRATIVE PROJECT COORDINATOR: alert, oriented X 3, CNII-XII intact, normal speech, no motor deficits, no sensory deficitsSkin: dry, intact, normal color, normal temperature, no rashLymphatics: axilla normal, inguinal normal, neck normal, no lymphadenopathyPsychiatry: normal affect, normal judgment/insight, normal mood, not homicidal, not suicidal Discharge Instructions PCPDischarge to: Home/Self CareAdditional Discharge Routines: Eligibility Examiner Follow-Up, Equipment/SuppliesDiet: Resume Home Diet/FeedsActivity: As ToleratedEquipment/supplies: Oxygen therapy Follow-up AppointmentsConsulting provider 1: Provider 1: Jose Miguel Roca MD Specialty: Internal Medicine Consult follow up timeframe: In 1-2 weeks Quality: Discharge Current MedicationsCurrent medication review:I attest that the foregoing medication list in the medical record is true, accurate, and complete to the best of my knowledge. at 0912 RPT #:[id number] OF REPORTDSDischarge akeyvfn2522-52-00T77:00:00V.IUGS283 79961-1425HDJlvckljqx for patient wiyvAJXZOJNPVTZGRH1564-68-87F78:12: 25 [facility] 2023-11-16 19:23:00 [id number] whlg54z0PHd9V+a 9PpAdv2/1D1LeVCoW2G4FQV0sJ/cS0Oe3aX S3dvx83181-25-36V74:23:00 [facility] ([facility])Pulmonology Progress NoteREPORT#:[id number] REPORT STATUS: SignedREPORT INITIALIZATION DATE:11/16/23 TIME: 1922 PATIENT: LEANDRO LEHMAN UNIT #: [id number]#: [id number] ROOM/BED: ADOB: [birth year] AGE: 52 SEX: M ATTEND: Jeremias Ibarra MDA AUTHOR: Jose Miguel Roca MDREPT SERVICE DT/TIME: 11/16/231922 * ALL edits or amendments must be made on the electronic/computer document * SubjectiveChief complaint:Shortness of breathHPI:52-year-old male was transferred from outside facility to [facility] with shortness of breath patient is obese, never been diagnosed with obstructive sleep apnea. Patient was admitted from October 19 8 November 05, with hypercapnic respiratory failure-also had left heart cath which was normalCT chest reviewed it is showing possibility of aspiration versus resolving pneumonia may be mild pulmonary edema External record: Patient was recently admitted at [facility] from October 27 through November 05 with [...] off, reconsult as needed Dietitian name: Yasemin YungVALENTIN olmedo, LDAssessment completed: 11/11/23 ___ Physical ExamGeneral appearance: alert, awakeHead/eyes: atraumatic, normocephalicCardiovascular: regular rate rhythmRespiratory/chest: aerating well, clear to auscultationAbdomen: soft, non-tenderExtremities: no pedal edemaNeuro/ADMINISTRATIVE PROJECT COORDINATOR: alert Diagnosis, Assessment PlanFree Text A P:52-year-old [...] likely has COVID-related scarring at 1926 RPT #:[id number] OF REPORTPRProgress wkkf9449-88-60H22:23:00V.IABH701081 AVAvailable for patient ryywSUSMKEQHWKHYDM2363-81-11P20:26: 28 [facility] 2023-11-16 14:01:00 [id number] HrfJUEVSUSLXZ9B 6SV3QC9UtiWYU98NsbOquQs7KtkNV3mK3HW ZZthh21984-51-64Q48:01:00 [facility] Progress NoteREPORT#:[id number] REPORT STATUS: SignedREPORT INITIALIZATION DATE:11/16/23 TIME: 140 PATIENT: LEANDRO LEHMAN UNIT #: [id number]#: [id number] ROOM/BED: [facility]-ADOB: [birth year] AGE: 52 SEX: M ATTEND: Jeremias [...] He endorsed having used Advil or Aleve pwhj-tgv-ugwyxbd for back pain but not more than [...] He endorsed having used Advil or Aleve pfmj-bww-sgxaioc for back pain but not more than [...] monitor renal dosing of medication. at 1314 RPT #:[id number] OF REPORTPRProgress kmxh3393-61-60F59:01:00V.GPDR365777 AVAvailable for patient fkzgMMYVUZZZEFAPQB0694-26-63Y20:15: 09 [facility] 2023-11-16 13:54:00 [id number] zIgBqaTBbVOq6F+ X0hJTzFrVwyT8K8GRjGLDv6Xu1iQBlRs03j fK6YSI2579-10-15O44:54:00 [facility] HospitalHospital[facility] Progress NoteREPORT#:[id number] REPORT STATUS: SignedREPORT INITIALIZATION DATE:11/16/23 TIME: 1353 PATIENT: LEANDRO LEHMAN UNIT #: [id number]#: [id number] [address] [birth year] AGE: 52 SEX: M ATTEND: [...] range of motion, no CVA tenderness,no muscle spasmNeuro/ADMINISTRATIVE PROJECT COORDINATOR: alert, oriented X 3, CNII-XII intact, normal speech, no motor deficits, no sensory deficitsSkin: dry, intact, normal color, normal temperature, no rashLymphatics: axilla normal, inguinal normal, neck normal, no lymphadenopathyPsychiatry: normal affect, normal judgment/insight, normal mood, not homicidal, not suicidal Diagnosis, Assessment Plan Free Text DxA P NotesFree text DxA P notes:# Acute respiratory failure with hypoxemiasecondary to pneumoniaimproved. floor covering installer recommends weaning oxygen down to 10L oxygen [...] the best of my knowledge. at 1245 RPT #:[id number] OF REPORTPRProgress atvb4582-49-41P48:54:00V.[id number] AVAvailable for patient dzdyXQZAYTJVHAJBUK5922-51-37M44:46: 21 [facility] 2023-11-16 12:26:00 [id number] REGgRm6d/W61POU rJZ01KG+IbLFTtTaVdqyouGjdyp+f0UGfdC CN/WiU5788-07-47O97:26:00 [facility] ([facility])Gastroenterology Progress NoteREPORT#:[id number] REPORT STATUS: SignedREPORT INITIALIZATION DATE:11/16/23 TIME: 1225 PATIENT: LEANDRO LEHMAN UNIT #: [id number]#: [id number] [address] [birth year] AGE: 52 SEX: M ATTEND: Jeremias Ibarra [facility] AUTHOR: Maria Del Carmen Puentes SERVICE DT/TIME: [...] Result Date Time Pulse Ox 95 11/16 103 B/P 128/69 11/16 1035 B/P Mean 88.7 [...] no distentionExtremities: decreased range of motionMusculoskeletal: decreased ROMNeuro/ADMINISTRATIVE PROJECT COORDINATOR: alert, oriented X 3, no sensory deficitsSkin: [...] monitor PRN at 1228 at 1649 RPT #:[id number] OF REPORTPRProgress hlkf9910-57-03H82:26:00V.[id number] 18-0487AVAvailable for patient rfihWCYUJRHTPSOCAF5738-15-38Z52:28: 50 [facility] 2023-11-15 18:47:00 [id number] /zuHiRg0Xzpg1nz 6JJWX99gc7aW3PByqDoCLNqQ2IyGGL0a3mg 25VCnP8683-68-43H22:47:00 [facility] ([facility])Pulmonology Progress NoteREPORT#:[id number] REPORT STATUS: SignedREPORT INITIALIZATION DATE:11/15/23 TIME: 1846 PATIENT: LEANDRO LEHMAN UNIT #: [id number]#: [id number] ROOM/BED: 2085-ADOB: [birth year] AGE: 52 SEX: M ATTEND: Jeremias Ibarra MDADM AUTHOR: Jose Miguel Roca MDREPT SERVICE DT/TIME: 11/15/231846 * ALL edits or amendments must be made on the electronic/computer document * SubjectiveChief complaint:Shortness of breathHPI:52-year-old male was transferred from outside facility to [facility] with shortness of breath patient is obese, never been diagnosed with obstructive sleep apnea. Patient was admitted from October 19 8 November 05, with hypercapnic respiratory failure-also had left heart cath which was normalCT chest reviewed it is showing possibility of aspiration versus resolving pneumonia may be mild pulmonary edema External record: Patient was recently admitted at [facility] from October 27 through November 05 with [...] 11/15 1812 O2 Flow Rate 10 11/15 181 Pulse 82 11/15 1812 Resp 18 11/15 1812 O2 Delivery High flow nasal cannula 11/15 1812 B/P 122/70 11/15 1659 B/P Mean 87.2 11/15 165 Temp 98.4 11/15 165 24 hour I O ending at 0700: [...] clear to auscultationAbdomen: soft, non-tenderExtremities: no pedal edemaNeuro/ADMINISTRATIVE PROJECT COORDINATOR: alert Diagnosis, Assessment PlanFree Text A P:52-year-old [...] flow overall remained stable at 1848 RPT #:[id number] OF REPORTPRProgress ppih1129-15-01G03:47:00V.[id number] VAvailable for patient ycicFWAPRSHEQPTLEM9065-46-85N92:48: 39 [facility] 2023-11-15 15:29:00 [id number] j73UPvmKkyjLyfM LhfC9Ny0IZfJ6pBTUXZrRhnvuLN33NArAWm wG1WLv2532-58-71T47:29:00 [facility] ([facility])Hospitalist Progress NoteREPORT#:[id number] REPORT STATUS: SignedREPORT INITIALIZATION DATE:11/15/23 TIME: 1528 PATIENT: LEANDRO LEHMAN UNIT #: [id number]#: [id number] [address] [birth year] AGE: 52 SEX: M ATTEND: [...] 37.3 97 18 151/67 94.6 97 11/15 181 82 18 98 10 80 11/15 181 [...] range of motion, no CVA tenderness,no muscle spasmNeuro/ADMINISTRATIVE PROJECT COORDINATOR: alert, oriented X 3, CNII-XII intact, normal speech, no motor deficits, no sensory deficitsSkin: dry, intact, normal color, normal temperature, no rashLymphatics: axilla normal, inguinal normal, neck normal, no lymphadenopathyPsychiatry: normal affect, normal judgment/insight, normal mood, not homicidal, not suicidal Diagnosis, Assessment Plan Free Text DxA P NotesFree text DxA P notes:# Acute respiratory failure with hypoxemiasecondary to pneumoniaimproved. floor covering installer recommends weaning oxygen down to 10L oxygen [...] best of my knowledge. at 2114 RPT #:[id number] OF REPORTPRProgress zhjo7156-15-37I19:29:00V.SBZG194737 43AVAvailable for patient mljfQPKBVLTDKUSMOQ5590-31-15U47:15: 07 [facility] 2023-11-15 10:40:00 [id number]/K/C YFGnslmPBJudxA8 4eLz+sQuk0+WwMohnq/QEcM6DadVkqqro5S lPBxln9912-92-74A07:40:00 [facility]Ne[facility] Consultation NoteREPORT#:[id number] REPORT STATUS: SignedREPORT INITIALIZATION DATE:11/15/23 TIME: 1040 PATIENT: LEANDRO LEHMAN UNIT #: [id number]#: [id number] [address] [birth year] AGE: 52 SEX: M ATTEND: Jeremias Ibarra [facility] AUTHOR: Christa Maurer MDREPT SERVICE DT/TIME: 11/15/23 [...] He endorsed having used Advil or Aleve xyiz-tgo-qklniuh for back pain but not more than [...] He endorsed having used Advil or Aleve jwpo-kgr-pmxbsmt for back pain but not more than [...] renal dosing of medication. at 1400 RPT #:[id number] OF REPORTSURzqxshsiapmd2138-74-70Q5 0:40:00V.YMPI06587662-1599EJRxulccl le for patient afcvNODITMNBUOVQIK3774-37-74M03:01: 02 [facility] 2023-11-14 19:34:00 [id number] i688FTjVi9HBRg4 Wk7emAxM+svp0DaK6ga4KvOJVQaHnkLSRAf XbVWvD0815-65-58K49:34:00 [facility] ([facility])Pulmonology Progress NoteREPORT#:[id number] REPORT STATUS: SignedREPORT INITIALIZATION DATE:11/14/23 TIME: 1933 PATIENT: LEANDRO LEHMAN UNIT #: [id number]#: [id number] ROOM/BED: [facility]-ADOB: [birth year] AGE: 52 SEX: M ATTEND: Jeremias Ibarra MDADM AUTHOR: Jose Miguel Roca MDREPT SERVICE DT/TIME: 11/14/231933 * ALL edits or amendments must be made on the electronic/computer document * SubjectiveChief complaint:Shortness of breathHPI:52-year-old male was transferred from outside facility to [facility] with shortness of breath patient is obese, never been diagnosed with obstructive sleep apnea. Patient was admitted from October 19 8 November 05, with hypercapnic respiratory failure-also had left heart cath which was normalCT chest reviewed it is showing possibility of aspiration versus resolving pneumonia may be mild pulmonary edema External record: Patient was recently admitted at [facility] from October 27 through November 05 with hypercapnic respiratory failure, unstable angina and NSTEMI. Per the notes the patient had a left heart cath which showed normal coronary arteries and patient was discharged in a stable condition. Comments:Overall breathing is stable Objective Physical ExamHead/eyes: atraumatic, normocephalicCardiovascular: regular rate rhythmRespiratory/chest: decreased breath soundsAbdomen: soft, non-tenderExtremities: no pedal edemaNeuro/ADMINISTRATIVE PROJECT COORDINATOR: alert Diagnosis, Assessment PlanFree Text A P:52-year-old [...] study as an outpatient at 0016 RPT #:[id number] OF REPORTPRProgress qzwv3783-42-70E03:34:00V.BGJQ898523 VAvailable for patient lheoQBBWYLHKIGIJNC7385-83-89H74:17: 43 [facility] 2023-11-14 18:46:00 [id number]/06ExZb FZP2wXydhll7Ybk GbQMfDbjIBVopV9k1mvPZauPQYyHb+ugbAp /IgxQ+7626-86-42N51:46:00 [facility] ([facility]Hospitalist Progress NoteREPORT#:[id number] REPORT STATUS: SignedREPORT INITIALIZATION DATE:11/14/23 TIME: 1845 PATIENT: LEANDRO LEHMAN UNIT #: [id number]#: [id number] ROOM/BED: [address]85ADOB: [birth year] AGE: 52 SEX: M ATTEND: Jeremias [...] range of motion, no CVA tenderness,no muscle spasmNeuro/ADMINISTRATIVE PROJECT COORDINATOR: alert, oriented X 3, CNII-XII intact, normal [...] best of my knowledge. at 1857 RPT #:[id number] OF REPORTPRProgress lihl9315-81-25B82:46:00V.UBFS783068 16AVAvailable for patient wyaaJNMMWHEQLQYYOT4216-63-25H04:58: 25 [facility] 2023-11-13 17:55:00 [id number] 2wZU+HpbPoDvSEE pN7NsRPJcchu9QNIPlu5MATxBsz1v0nIILS iSSuWD9924-98-46J13:55:00 [facility] ([facility])Pulmonology Progress NoteREPORT#:[id number] REPORT STATUS: SignedREPORT INITIALIZATION DATE:11/13/23 TIME: 1754 PATIENT: LEANDRO LEHMAN UNIT #: [id number]#: [id number] ROOM/BED: 2085-ADOB: [birth year] AGE: 52 SEX: M ATTEND: Jeremias Ibarra MDADM AUTHOR: Jose Miguel Roca MDREPT SERVICE DT/TIME: 11/13/231754 * ALL edits or amendments must be made on the electronic/computer document * SubjectiveChief complaint:Shortness of breathHPI:52-year-old male was transferred from outside facility to [facility] with shortness of breath patient is obese, never been diagnosed with obstructive sleep apnea. Patient was admitted from October 19 8 Philip 7, with hypercapnic respiratory failure-also had left heart cath which was normalCT chest reviewed it is showing possibility of aspiration versus resolving pneumonia may be mild pulmonary edema External record: Patient was recently admitted at [facility] from October 27 through November 05 with [...] clear to auscultationAbdomen: soft, non-tenderExtremities: no pedal edemaNeuro/ADMINISTRATIVE PROJECT COORDINATOR: alert Diagnosis, Assessment PlanFree Text A P:52-year-old [...] high flow nasal cannula at 0015 RPT #:[id number] OF REPORTPRProgress tlvr0674-81-26Q33:55:00V.VOOW675162 AVAvailable for patient lnepLJDNVYUFWQMUUQ6025-69-90P42:17: 41 [facility] 2023-11-13 12:54:00 [id number] lMe8uiaA8qjlzal BfkBoMSDzXJalCvRTrcDx7Id18fugMi5+ K+lUc22534-52-68Y15:54:00 [facility] ([facility]ITALHospitalist Progress NoteREPORT#:[id number] REPORT STATUS: SignedREPORT INITIALIZATION DATE:11/13/23 TIME: 1254 PATIENT: LEANDRO LEHMAN UNIT #: [id number]#: [id number] ROOM/BED: [facility]-ADOB: [birth year] AGE: 52 SEX: M ATTEND: Lindsey Coyle MDADM AUTHOR: Lindsey Coyle MDREPT SERVICE DT/TIME: 11/13/23 125 * ALL edits or amendments must be [...] range of motion, no CVA tenderness,no muscle spasmNeuro/ADMINISTRATIVE PROJECT COORDINATOR: alert, oriented X 3, CNII-XII intact, normal [...] best of my knowledge. at 1255 RPT #:[id number] OF REPORTPRProgress nhms2789-17-90A54:54:00V.TIPI377858 15-0477AVAvailable for patient rvaxVDXOSHQZDHMLZB5816-13-73X14:56: 51 [facility] 2023-11-13 09:23:00 [id number] 2PeWl22mwo4aIpj 7ZXvvbqaxBrFwfAIRnAEAF3IhNLwCVkDz3L Hattie/oq1463-33-57K51:23:00 [facility] Consultation NoteREPORT#:[id number] REPORT STATUS: SignedREPORT INITIALIZATION DATE:11/13/23 TIME: 922 PATIENT: LEANDRO LEHMAN UNIT #: [id number]#: [id number] ROOM/BED: 2086-ADOB: [birth year] AGE: 52 SEX: M ATTEND: Lindsey Coyle MDADM AUTHOR: Maria Del Carmen Puentes SERVICE DT/TIME: 11/13/23922 * ALL edits or amendments must be [...] 09/24/22 11/12/23 (PROTONIX) 0852 1313Strength: 40 MG TAB.[SYNJAUMER] 12.5 09/24/22Strength: 0853 INSULIN REGULAR 35 UNITS [...] 2000 CKD 11/13 (PULMICORT RESPULES NEB 12/10 1958 0859 0.25MG/2ML) Gastrointestinal Drugs Sig/Morales Start time Last Medication Dose Route Stop Time Status Admin Metoclopramide HCl 5 MG Q8H PRN PRN 11/13 1400 UNV (METOCLOPRAMIDE HCL) IV 12/13 1359 Pantoprazole Sodium 40 MG BID 11/10 1700 AC 11/13 (PROTONIX) PO 12/10 165 0817 Senna/Docusate Sodium 1 TAB BID 11/10 1700 AC 11/12 (SENNA-S 50 MG/8.6 PO 12/10 1659 0848 MG TABLET) Ondansetron HCl 4 MG Q6H PRN PRN 11/10 1130 AC 11/13 (ondansetron HCL) IV 12/10 1129 0818 Hormones And Synthetic Substit Sig/Morales Start time Last Medication Dose Route Stop Time Status Admin Methylprednisolone 20 MG Q8HR 11/13 0500 AC 11/13 Sodium Succinate IV 11/14 210 1200 (Solu-MEDROL 40 MG/ ML) Insulin Human [...] no distentionExtremities: decreased range of motionMusculoskeletal: decreased ROMNeuro/ADMINISTRATIVE PROJECT COORDINATOR: alert, oriented X 3, no sensory deficitsSkin: [...] % (Auto) (25.0 - 55.0 %) 36.3 [place] % (Auto) (0.0 - 10.0 %) 13.6 H Eos % (Auto) (0.0 - 5.0 %) 4.5 Baso % (Auto) (0.0 - 1.0 %) 1.5 H Neut # (Auto) (1.8 - 7.7 K/mm3) 2.42 Lymph # (Auto) (1.0 - 5.0 K/mm3) 2.00 [place] # (Auto) (0 - 0.8 K/mm3) 0.75 [...] as needed at 1403 at 1536 RPT #:[id number] OF REPORTGBBxfbfcvpupyy5456-00-38Y3 9:23:00V.FESP04561570-1200UFVfsxapn le for patient kcxbKCILIUCIMEBRZM7765-45-75A64:03: 50 [facility] 2023-11-12 17:08:00 [id number] Z4NcM2s6gy8D4OV BHjaJupfCkQ5smizOa3MtyuEVCWAw4IEHVa H4+fAl8230-70-82D83:08:00 [facility] ([facility])Pulmonary Consultation NoteREPORT#:[id number] REPORT STATUS: SignedREPORT INITIALIZATION DATE:11/12/23 TIME: 1707 PATIENT: LEANDRO LEHMAN UNIT #: [id number]#: [id number] ROOM/BED: [facility]-ADOB: [birth year] AGE: 52 SEX: M ATTEND: Lindsey Coyle MDADM AUTHOR: Jose Miguel Roca MDREPT SERVICE DT/TIME: 11/12/231707 * ALL edits or amendments must be made on the electronic/computer document * History of Present Illness HPIRequesting clinician: Dr Rosario for consult:HypoxiaChief complaint:Shortness of breathHPI:52-year-old male was transferred from outside facility to [facility] with shortness of breath patient is obese, never been diagnosed with obstructive sleep apnea. Patient was admitted from October 19 8 November 05, with hypercapnic respiratory failure-also had left heart cath which was normalCT chest reviewed it is showing possibility of aspiration versus resolving pneumonia may be mild pulmonary edema External record: Patient was recently admitted at [facility] from October 27 through November 05 with [...] decreased breath soundsAbdomen: soft, non-tenderExtremities: no pedal edemaNeuro/ADMINISTRATIVE PROJECT COORDINATOR: alert Diagnosis, Assessment Plan Free Text DxA [...] you for the consult at 0018 RPT #:[id number] OF REPORTRVIcukmwcoucss1282-04-63Q7 7:08:00V.LQOK68634664-9905DEXkxtfko le for patient kjefEOQWZKWGMQWSIW1322-24-55R83:18: 51 [facility] 2023-11-12 12:26:00 [id number]/+ zBWw/6oGPNQbYCN 5oezAs35srLwb2WCIMDT3nxhbXf6I98+GhJ q6YFNh5739-23-12V94:26:00 [facility] HospitalHospital[facility] Progress NoteREPORT#:[id number] REPORT STATUS: SignedREPORT INITIALIZATION DATE:11/12/23 TIME: 122 PATIENT: LEANDRO LEHMAN UNIT #: [id number]#: [id number] [address] [birth year] AGE: 52 SEX: M ATTEND: [...] 105/62 76.4 98 High flow nasal cannula 11/12 0819 98.2 115 16 100/67 77.7 92 High flow nasal cannula 11/12 0615 103 27 117/61 82 100 11/12 0600 103 28 119/65 80 100 11/12 0545 104 31 134/72 95 100 11/12 0530 104 31 133/73 96 100 11/12 0515 101 30 124/69 90 100 11/12 0500 104 31 116/60 83 100 11/12 0445 104 32 114/59 81 99 11/12 0430 106 31 116/56 98 11/12 0415 106 9 115/59 81 98 11/12 0400 111 26 114/62 82 99 11/12 0400 98.6 99 BiPAP 11/12 0345 104 35 121/69 89 99 11/12 0330 104 30 117/64 85 99 11/12 0315 106 31 108/59 81 99 11/12 0300 105 32 121/58 81 96 11/12 0245 105 32 115/57 81 97 11/12 0230 106 29 115/55 77 96 11/12 0215 106 28 114/59 82 97 14 0200 103 28 120/61 84 97 14 0145 108 28 101/56 73 99 11/12 0130 106 29 109/55 76 96 14 0115 107 31 115/58 80 96 14 0100 108 32 113/59 81 95 14 0045 108 31 117/55 82 96 /14 0031 101 100 50 /14 0030 101 21 135/66 93 100 14 0015 24 135/67 95 100 / 0000 100 24 126/62 86 100 11/12 0000 98.5 100 BiPAP 11/11 2345 107 30 128/67 89 99 11/11 2330 117 40 134/72 97 100 11/11 2315 114 38 129/64 89 100 11/11 2300 109 12 135/67 94 100 11/11 2245 110 36 137/72 94 100 11/11 2230 108 35 140/69 99 100 11/11 2215 112 38 138/68 95 100 11/11 2212 112 28 146/74 98 100 11/11 2145 110 19 132/64 89 100 11/11 2130 115 12 138/58 91 100 11/11 2115 102 29 149/67 97 99 11/11 [...] range of motion, no CVA tenderness,no muscle spasmNeuro/ADMINISTRATIVE PROJECT COORDINATOR: alert, oriented X 3, CNII-XII intact, normal [...] best of my knowledge. at 1242 RPT #:[id number] OF REPORTPRProgress ylga4831-59-50G08:26:00V.EQPR382670 13AVAvailable for patient wfytABOMXTIGKZGNEB7797-61-97C53:42: 23 [facility] 2023-11-12 04:41:00 [id number] TaKI60u1VJNCKGM bUUuPsBzpLLOn8EtYB2sZjbGj9UaqpqMmcR uQBiyf2531-90-48R03:41:830932-0618 [facility] PATIENT NAME: LEANDRO LEHMAN ADMIT DATE: 11/10/23ACCOUNT NO: [id number] ROOM NO: V.S19 AGE: 52 REPORT TYPE: eNVL VENOUS ULTRASOUND SEX: M DATE OF : [birth year]ADMITTING PHYSICIAN:Lindsey Coyle MD ATTENDING PHYSICIAN:Lindsey Coyle MD *[facility]*[address] [place] [address] 564[address]Lpqbo Lower Extremity Venous Duplex Evaluation Patient: Steve Lehman Date: 11/11/2023P:URN: [id number]: [id number]#: [id number]: 1970Age: 52Gender: MHeight: 67 in / 170.2 cmWeight: 108 lb / 49 kgBMI/BSA: 16.9 kg/m 2 / 1.51 m 2*Ordering Physician: Meryl Hanson*Interpreting Physician: * Valerio Loza*Ocular Pathologist: * Mirtha Bazzi --------Indications: RULE OUT DVT. [...] 04:41 at 0441 PATIENT NAME: LEANDRO LEHMAN icutlyt5159-42-24Z08:41:00V.KSX4593 1214-0001AVAvailable for patient dcteJOXWQPWRCGONIY9645-42-31G51:42: 11 [facility] 2023-11-11 14:26:00 [id number] Fbt7f00zv6PdBuO pP1NN9Mw9s3rue02s7UPBYpPivaswFM4jtH QngSC82562-11-85N01:26:00 [facility] HospitalHospital[facility] Progress NoteREPORT#:[id number] REPORT STATUS: SignedREPORT INITIALIZATION DATE:11/11/23 TIME: 1425 PATIENT: LEANDRO LEHMAN UNIT #: [id number]#: [id number] ROOM/BED: G36-FWFV: [birth year] AGE: 52 SEX: M ATTEND: Lindsey Coyle MDADM AUTHOR: Lindsey Coyle MDREPT SERVICE DT/TIME: 11/11/231425 * ALL edits or amendments must be [...] 11/10 2145 121 27 119/57 82 98 11/100 118 10 125/60 86 95 11/10 2115 [...] range of motion, no CVA tenderness,no muscle spasmNeuro/ADMINISTRATIVE PROJECT COORDINATOR: alert, oriented X 3, CNII-XII intact, normal [...] IIIaAvoid nephrotoxic #Diabetes mellitus type 2Check hgb V7Ctmsvalt checks AC and HSsliding scale insulin #HypertensionIV [...] the best of my knowledge. at 1427 [facility] #:[id number] OF REPORTPRProgress kzuu4036-65-85G71:26:00V.COKZ857745 AVAvailable for patient hvhpTHJILTNUZTDQGL6330-81-29N95:28: 04 [facility] 2023-11-11 13:10:00 [id number] EPXi/5WUQoa1twJ IcD6CCgX0E5ywAHRYXKztuZq7t2d3nCAHwH HOOpdz7540-24-25S60:10:00 [facility] HospitalCritical Care Progress NoteREPORT#:[id number] REPORT STATUS: SignedREPORT INITIALIZATION DATE:11/11/23 TIME: 1310 PATIENT: LEANDRO LEHMAN UNIT #: [id number]#: [id number] [facility] AGE: 52 SEX: M ATTEND: Lindsey Coyle AUTHOR: Meryl Rey MDREPT SERVICE DT/TIME: 11/11/23 1310 * ALL edits or amendments must be made on the electronic/computer document * SubjectiveChief complaint:shortness of breathHPI:This is a 52-year-old morbidly obese male who was transferred from an outside facility. Patient was recently admitted at [facility] from October 27 through November 05 with [...] Mean 91 11/11 900 Pulse 107 11/11 900 Resp 26 11/11 900 FiO2 65 11/11 [...] moves all, no clubbing, no cyanosis, no edemaNeuro/ADMINISTRATIVE PROJECT COORDINATOR: alert, oriented X 3 ResultsFindings/data:Laboratory Tests 11/10 [...] 2.9 Albumin/Globulin Ratio (0.75 - 1.50) 1.2 12/12 12/12 1704 1450 Chemistry POC Glucose (74 - [...] % (Auto) (25.0 - 55.0 %) 26.0 [place] % (Auto) (0.0 - 10.0 %) 9.8 Eos % (Auto) (0.0 - 5.0 %) 2.3 Baso % (Auto) (0.0 - 1.0 %) 1.2 H Neut # (Auto) (1.8 - 7.7 K/mm3) 3.08 Lymph # (Auto) (1.0 - 5.0 K/mm3) 1.33 [place] # (Auto) (0 - 0.8 K/mm3) 0.50 [...] RECD101/11 1457 NASAL: MRSA Screen - UNV Sqfwfnk18/12 145 BLOOD: Blood Culture - RECD101/11 1457 BLOOD: Blood Culture - RECD101/11 1400 NASAL: MRSA Screen - CAN Cancelled: Duplicate order, test already ordered. Spec #:[id number] Diagnosis, Assessment PlanFree text A P:History of Present Illness:This is a 52-year-old morbidly obese male who was transferred from an outside facility. Patient was recently admitted at [facility] from October 27 through November 05 with [...] kin: TBD- Code status: Full code- Disposition: IMCU Critical care time: 40 minutes, excluding procedures, [...] best of my knowledge. at 1345 RPT #:[id number] OF REPORTPRProgress qwkr1753-58-25L98:10:00V.ZIYO796304 AVAvailable for patient dpiuEDHUMFXOQHVIGH2052-69-08K75:45: 55 [facility] 2023-11-11 09:01:00 [id number] wgIOYeOjFNIRPRB uoT7VUGqlK0pMtBKw+4b8ZoBWgTeSe954kq NpJfeA8596-10-59O67:01:861154-9047 [facility] PATIENT NAME: LEANDRO LEHMAN ADMIT DATE: 11/10/23ACCOUNT NO: [id number] ROOM NO: V.S19 AGE: 52 REPORT TYPE: eECHOCARDIOGRAM REPORT SEX: M DATE OF : [birth year]ADMITTING PHYSICIAN:Jeremias Ibarra MD ATTENDING PHYSICIAN:Jeremias Ibarra MD *[facility]*[address] [place] [address]Ovzrb Transthoracic Echocardiogram Patient: Tegan Lehmanudmalika Date: 3BP:URN: [id number]: [id number]#: [id number]: 1970Age: 52Gender: MHeight: 67 in / 170.2 cmWeight: 253.5 lb / 115 kgBMI/BSA: 39.7 kg/m 2 / 2.39 m 2*Ordering Physician: * Meryl Rey *Interpreting Physician: * Judy Grey MD*Ocular Pathologist: Donovan Perez Than --------Indications: Hypotensive. --------Study data: Transthoracic echocardiogram. [...] 09:01 at 0901 PATIENT NAME: LEANDRO LEHMAN -12-13T09:01:00V.[id number] Available for patient jajuZLDPNZNFEDOTKN3554-56-66E03:01: 37 [facility] 2023-11-11 08:15:00 [id number] wzh6VMWuFKbwFYZ qbki2GdMH5WBsrZUP4pBM17oUITTllPrwvb N2hJqF7508-02-09X95:15:00 [facility] ([facility])Critical Care Progress NoteREPORT#:[id number] REPORT STATUS: SignedREPORT INITIALIZATION DATE:11/11/23 TIME: 814 PATIENT: LEANDRO LEHMAN UNIT #: [id number]#: [id number] [facility] AGE: 52 SEX: M ATTEND: Lindsey Coyle AUTHOR: Meryl Rey MDREPT SERVICE DT/TIME: 11/11/23 0815 * ALL edits or amendments must be made on the electronic/computer document * SubjectiveChief complaint:shortness of breathHPI:This is a 52-year-old morbidly obese male who was transferred from an outside facility. Patient was recently admitted at [facility] from October 27 through November 05 with [...] dyspnea, pleurisy, pleuritic pain. Cardiovascular:Denies: chest pain, LMABERT (dyspnea on exertion), edema, orthopnea, palpitations. GI:Denies: abdominal pain, anorexia, constipation, diarrhea, dysphagia. Neuro:Denies: bladder dysfunction, bowel dysfunction. Objective GeneralVS/I OLast Documented: Result Date Time Pulse Ox 97 11/11 515 B/P 111/55 11/11 515 B/P Mean 76 11/11 515 Pulse 122 11/11 515 Resp 35 11/11 515 O2 Delivery Non rebreather mask 11/11 400 O2 Flow Rate 15 11/11 0400 Temp 99.5 11/110 FiO2 80 11/11 0240 24 hour I [...] moves all, no clubbing, no cyanosis, no edemaNeuro/ADMINISTRATIVE PROJECT COORDINATOR: alert, oriented X 3 ResultsFindings/data:Laboratory Tests 11/10 [...] (Auto) (25.0 - 55.0 %) 26.0 27.0 [place] % (Auto) (0.0 - 10.0 %) 9.8 9.0 Eos % (Auto) (0.0 - 5.0 %) 2.3 2.0 Baso % (Auto) (0.0 - 1.0 %) 1.2 H 0.6 Neut # (Auto) (1.8 - 7.7 K/mm3) 3.08 4.28 Lymph # (Auto) (1.0 - 5.0 K/mm3) 1.33 1.90 [place] # (Auto) (0 - 0.8 K/mm3) 0.50 [...] pH (5.0 - 8.0) 5.0 Ur Specific [place] (1.001 - 1.035) 1.007 Urine Protein (NEGATIVE [...] Not Available]Microbiology:11/10 1736 BLOOD: Blood Culture - 1736 BLOOD: Blood Culture - 1457 NASAL: MRSA Screen - 1457 BLOOD: Blood Culture - RECD101/11 1457 BLOOD: Blood Culture - RECD101/11 1400 NASAL: MRSA Screen - CAN Cancelled: Duplicate order, test already ordered. Spec #:[id number] Diagnosis, Assessment PlanFree text A P:History of Present Illness:This is a 52-year-old morbidly obese male who was transferred from an outside facility. Patient was recently admitted at [facility] from October 27 through November 05 with [...] best of my knowledge. at 1606 RPT #:[id number] OF REPORTPRProgress aerq0696-45-02B31:15:00V.ZBTG145592 13-0123AVAvailable for patient qnkrEGKIGCERFVYTUX9445-15-61U25:07: 24 [facility] 2023-11-10 13:22:00 [id number] UDKNIUsl/EjBQXm +q3fps/1p0qtMeVB5Ew/85nNPR/KpNITpgd g6YyLz7887-45-11S53:22:00 [facility] ([facility])Hospitalist History PhysicalREPORT#:[id number] REPORT STATUS: SignedREPORT INITIALIZATION DATE:11/10/23 TIME: 132 PATIENT: LEANDRO LEHMAN UNIT #: [id number]#: [id number] [facility] AGE: 52 SEX: M ATTEND: Jeremias Ibarra MDA AUTHOR: Jeremias Ibarra MDREPT SERVICE DT/TIME: 11/10/23 1322 * ALL edits or amendments must be made on the electronic/computer document * See AddendumHistory of Present Illness HPIChief complaint:Shortness of breathHPI:52-year-old male with past medical history of obesity who presents to the hospital with a chief complaint of shortness of breath. The patient was transferred from an outside facility to [facility]. Patient states he had a fall at home today and so he was taken to theemergency room where he complained of shortness of breath. He denies any fever or chills. He reports cough, nausea, and vomiting. External record: Patient was recently admitted at [facility] from October 27 through November 05 with [...] % (Auto) (25.0 - 55.0 %) 27.0 [place] % (Auto) (0.0 - 10.0 %) 9.0 Eos % (Auto) (0.0 - 5.0 %) 2.0 Baso % (Auto) (0.0 - 1.0 %) 0.6 Neut # (Auto) (1.8 - 7.7 K/mm3) 4.28 Lymph # (Auto) (1.0 - 5.0 K/mm3) 1.90 [place] # (Auto) (0 - 0.8 K/mm3) 0.63 Eos # (Auto) (0.0 - 0.5 K/mm3) 0.14 Baso # (Auto) (0.0 - 0.2 K/mm3) 0.04 Nucleated RBC % (0 - 0 %) 0.0 Nucleated RBCs # (Man) (0.0 - 0.1 K/mm3) 0.00 Urines Urine Color (YELLOW) Light-Yellow Urine Appearance (CLEAR) CLEAR Urine pH (5.0 - 8.0) 5.0 Ur Specific [place] (1.001 - 1.035) 1.007 Urine Protein (NEGATIVE [...] range of motion, no CVA tenderness,no muscle spasmNeuro/ADMINISTRATIVE PROJECT COORDINATOR: alert, oriented X 3, CNII-XII intact, normal [...] IIIaAvoid nephrotoxic #Diabetes mellitus type 2Check hgb S6Zfyjcqzq checks AC and HSsliding scale insulin #HypertensionIV [...] remains on Levophed drip- at 1645 RPT #:[id number] OF REPORTHPHistory and physical bfghduyutdc2314-10-37A79:22:00V.PDO [id number] for patient sbaiWCCLTUWYKYDLGF5475-87-03Y73:44: 59 [facility] 2023-11-10 11:32:00 [id number] BHLqgu85//qbQuytZyqdijZXlRu0lRmWM8L 42+0Rq3434-81-19Y57:32:00 [facility] ([facility])Critical Care Consult NoteREPORT#:[id number] REPORT STATUS: SignedREPORT INITIALIZATION DATE:11/10/23 TIME: 1131 PATIENT: LEANDRO LEHMAN UNIT #: [id number]#: [id number] [facility] AGE: 52 SEX: M ATTEND: Jeremias Ibarra MDA AUTHOR: Meryl Rey MDREPT SERVICE DT/TIME: 11/10/23 113 * ALL edits or amendments must be made on the electronic/computer document * History of Present Illness HPIReason for consult:respiratory failureChief complaint:shortness of breathPCP:PCP: Sang Rey MD HPI:This is a 52-year-old morbidly obese male who was transferred from an outside facility. Patient was recently admitted at [facility] from October 27 through November 05 with [...] outside facility. Patient was recently admitted at [facility] from October 27 through November 05 with [...] consultants and admitting teams. at 1407 RPT #:[id number] OF REPORTBMRjfhnwsepqne7481-30-66X1 1:32:00V.[id number] for patient wvvkUKHZHLUYCEUYXW7494-08-17J90:08: 25 [facility] 2022-09-24 09:36:00 [id number] 0rgO6rT+Cl00D4I i8cA9mPzBj6JPVUcKKfFqaa5+r75jLTsuPc PWGaOc1344-87-05W16:36:193156-1920 [facility] [id number] [place] [id number] PATIENT NAME: LEANDRO LEHMAN ADMIT DATE: 09/24/22ACCOUNT NO: [id number] ROOM NO: AGE: 51 REPORT TYPE: OPERATIVE [...] PATIENT NAME: LEANDRO LEHMAN Date Transcribed: 09/24/2022 16:12:19INPawel/Mamie #: [id number] ID: [id number] by Lukasz Saul MD On 10/01/2022 09:00:16 AM at 0900 PATIENT NAME: LEANDRO LEHMAN vggwva3498-49-48T22:12:00L.[id number] for patient lknjKYSPVGXHLGZWQH9613-26-34W30:00: 46 [facility]
[2024-03-10] MEDS ORDERED: NA CHLORIDE 0.9% 0 ML ONE (00:16)
[2024-03-10] MEDS ORDERED: ONDANSETRON 4 MG/2 ML VIAL ONE ×2 (00:16→00:52)
[2024-03-10 00:52] LABS: Absolute Basophils 0.1 K/uL (0-0.5); Absolute Eosinophils 0.2 K/uL (0-0.5); Absolute Lymphocytes (CBC) 3.5 K/uL (0.7-4.9); Absolute Monocytes 1.1 K/uL (0.1-1.3); Absolute Neutrophil 4.4 K/uL (1.8-8.0); Basophils % 0.8 % (0-1.3); Eosinophils % 1.8 % (0-4.4); Hematocrit 38.1 % (39.6-49.0); Hemoglobin 12.5 g/dL (13.6-17.9); Lymphocytes % 38.2 % (15.3-44.8); MCH 28.7 pg (27.0-35.0); MCHC 32.9 g/dL (32.0-36.0); MCV 87.2 fL (80-100); MPV 7.5 fL (7.6-11.3); Neutrophils % 47.2 % (41.7-73.7); Nucleated Red Blood Cells % 0.1 % (0-0); Platelets 334 thou/uL (152-406); RBC Red Blood Cell Count 4.37 M/uL (4.33-5.43); Red Cell Distribution Width 13.6 % (12.1-15.2)
[2024-03-10] MEDS ORDERED: DICYCLOMINE HCL 20 MG/2 ML AMP IM ONE (00:52)
[2024-03-10] MEDS ORDERED: NA CHLORIDE 0.9% 2,000 ML ONE (00:53)
[2024-03-10] MEDS ORDERED: MORPHINE 4 MG/ML SYR ONE (00:53)
[2024-03-10 01:22] LABS: Albumin 2.9 g/dL (3.4-5.0); Albumin/Globulin Ratio 0.8 (1.1-1.8); Anion Gap 10.9 mEq/L (5.0-15.0); Bilirubin Direct 0.2 mg/dL (0-0.2); Bilirubin Indirect, Calculated 0.4 mg/dL (0.2-0.8); Bilirubin Total 0.6 mg/dL (0.2-1.0); Globulin 3.7 g/dL (2.3-3.5); Magnesium 1.2 mg/dL (1.6-2.4); Potassium 2.9 mEq/L (3.5-5.1); Protein, Total 6.6 g/dL (6.4-8.2); Troponin High Sensitivity 6.3 pg/mL (<58.9)
[2024-03-10] MEDS ORDERED: CALCIUM GLUCONATE 1 GM IVPB 1 GM/50 ML BAG IV ONE (02:49)
[2024-03-10] MEDS ORDERED: METOCLOPRAMIDE 10 MG/2mL INJ ONE (03:27)
[2024-03-10] MEDS ORDERED: KCL 20 MEQ/100 mL IVPB 200 ML IV ONE (03:27)
[2024-03-10] MEDS ORDERED: HYDROMORPHONE HCL 1 MG/ML INJ ONE (03:27)
[2024-03-10] MEDS ORDERED: PROMETHAZINE INJ 25 MG/ML AMP ONE (03:27)
--- NOTE | 2024-03-10 04:39 | ER ---
Nurse's Notes [facility] Name: Leandro Rand Age: 53 yrs Sex: Male : 1970 Arrival Date: 03/09/2024 Time: 23:37 Bed 16 Private MD: Diagnosis: Intractable nausea vomiting, acute hypokalemia, diabetic gastroparesis, morbid obesity, complications of diabetes Presentation: 03/09 23:40 Chief complaint: Patient states: pt reports severe epigastric pain since 1800. bm8 described as a sharp pressure. Coronavirus screen: Client denies travel out of the [place] in the last 14 days. At this time, the client does not indicate any symptoms associated with coronavirus-19. Ebola Screen: Patient negative for fever greater than or equal to 101.5 degrees Fahrenheit, and additional compatible Ebola Virus Disease symptoms Patient denies exposure to infectious person. Patient denies travel to an Ebola-affected area in the 21 days before illness onset. No symptoms or risks identified at this time. Initial Sepsis Screen: Does the patient meet any 2 criteria? No. Patient's initial sepsis screen is negative. Does the patient have a suspected source of infection? No. Patient's initial sepsis screen is negative. Risk Assessment: Do you want to hurt yourself or someone else? Patient reports no desire to harm self or others. Onset of symptoms was March 09, 2024 at 18:00. 23:40 Method Of Arrival: Ambulatory bm8 23:40 Acuity: FELI 2 bm8 Triage Assessment: 03/10 00:09 General: Appears distressed, uncomfortable, obese, Behavior is cooperative, appropriate bm8 for age, agitated, anxious. Pain: Complains of pain in diaphragm Pain radiates to back Pain currently is 10 out of 10 on a pain scale. Quality of pain is described as pressure, sharp, Pain began 1800 tonight. EENT: No deficits noted. No signs and/or symptoms were reported regarding the EENT system. Neuro: Level of Consciousness is awake, alert, obeys commands, Oriented to person, place, time, situation, Appropriate for age. Cardiovascular: Reports chest pain, Heart tones S1 S2 present Capillary refill < 3 seconds Patient's skin is warm and dry. Respiratory: Airway is patent Respiratory effort is even, unlabored, Respiratory pattern is regular, Breath sounds are clear bilaterally. GI: Reports epigastric pain since 1800 today. : No deficits noted. No signs and/or symptoms were reported regarding the genitourinary system. Derm: No deficits noted. No signs and/or symptoms reported regarding the dermatologic system. Musculoskeletal: No deficits noted. No signs and/or symptoms reported regarding the musculoskeletal system. Historical: - Allergies: 00:09 Segluromet; bm8 00:09 Synjardy; bm8 00:09 XIGDUO; bm8 - Home Meds: 00:09 insulin [Active]; Lipitor Oral [Active]; Metformin Oral [Active]; Metoprolol Tartrate bm8 Oral [Active]; water pill [Active]; - PMHx: 00:09 Congestive heart failure; COVID-19; Diabetes - IDDM; Diabetes - NIDDM; Home Oxygen bm8 (Left first finger a); Hyperlipidemia; lung failure; Myocardial infarction; - PSHx: 00:09 heart cath; Left first finger amputation; bm8 - Immunization history:: Adult Immunizations up to date. - Infectious Disease History:: Denies. - Social history:: Smoking status: Patient denies any tobacco usage or history of. - Family history:: not pertinent. Screenin:13 [facility] ED Fall Risk Assessment (Adult) History of falling in the last 3 months, bm8 including since admission No falls in past 3 months (0 pts) Confusion or Disorientation No (0 pts) Intoxicated or Sedated No (0 pts) Impaired Gait No (0 pts) Mobility Assist Device Used No (0 pt) Altered Elimination No (0 pt) Score/Fall Risk Level 0 - 2 = Low Risk Oriented to surroundings, Maintained a safe environment, Educated pt \T\ family on fall prevention, incl call for assistance when getting out of bed. Abuse screen: Denies threats or abuse. Nutritional screening: No deficits noted. Tuberculosis screening: No symptoms or risk factors identified. Assessment: 00:13 Reassessment: see triage note. bm8 01:00 Reassessment: Patient appears in no apparent distress at this time. Patient and/or pf1 family updated on plan of care and expected duration. Pain level reassessed. Patient is alert, oriented x 3, equal unlabored respirations, skin warm/dry/pink. 03:33 Reassessment: Patient appears in no apparent distress at this time. Patient and/or km8 family updated on plan of care and expected duration. Pain level reassessed. Patient is alert, oriented x 3, equal unlabored respirations, skin warm/dry/pink. Patient states symptoms have not improved. 04:07 Reassessment: Patient appears in no apparent distress at this time. Patient and/or bm8 family updated on plan of care and expected duration. Pain level reassessed. Patient is alert, oriented x 3, equal unlabored respirations, skin warm/dry/pink. pt is currently resting with eyes closed breathing is even unlabored at this time. having to regularly shake to wake pt for sleep apnea Patient denies pain at this time. General: Appears in no apparent distress. comfortable, Behavior is cooperative, appropriate for age. Pain: Denies pain. Neuro: No deficits noted. Level of Consciousness is alert, obeys commands, Oriented to person, place, time, situation, Appropriate for age. Cardiovascular: No deficits noted. Capillary refill < 3 seconds Patient's skin is warm and dry. Respiratory: Airway pt suffers from sleep apena. Is currently on 3 l nc with head of bed elevated to [id number] Breath sounds are clear bilaterally. GI: No deficits noted. No signs and/or symptoms were reported involving the gastrointestinal system. : No deficits noted. No signs and/or symptoms were reported regarding the genitourinary system. EENT: No deficits noted. No signs and/or symptoms were reported regarding the EENT system. Derm: No deficits noted. No signs and/or symptoms reported regarding the dermatologic system. Musculoskeletal: No deficits noted. No signs and/or symptoms reported regarding the musculoskeletal system. Vital Signs: 03/09 23:40 BP 77 / 33; Pulse 66; Resp 20; Temp 97.9; Pulse Ox 96% on R/A; Pain 09/08; bm8 03/10 00:30 BP 115 / 48; Pulse 67; Resp 16; Pulse Ox 98% ; pf1 01:00 BP 118 / 70; Pulse 83; Resp 16; Pulse Ox 97% ; pf1 01:30 BP 101 / 51; Pulse 71; Resp 16; Pulse Ox 97% on 2 lpm NC; Pain /10; pf1 02:00 BP 97 / 55; Pulse 82; Resp 23; Pulse Ox 98% on 2 lpm NC; km8 02:15 BP 102 / 61; Pulse 81; Resp 25; Pulse Ox 98% on 2 lpm NC; km8 02:30 BP 104 / 62; Pulse 80; Resp 24; Pulse Ox 99% on 2 lpm NC; km8 02:45 BP 113 / 60; Pulse 80; Resp 21; Pulse Ox 100% on 2 lpm NC; km8 03:00 BP 106 / 70; Pulse 86; Resp 19; Pulse Ox 100% on 2 lpm NC; km8 03:15 BP 118 / 59; Pulse 86; Resp 23; Pulse Ox 99% on 2 lpm NC; km8 03:30 BP 123 / 58; Pulse 89; Resp 20; Pulse Ox 99% on 2 lpm NC; km8 04:07 BP 126 / 68; Pulse 95; Resp 18; Pulse Ox 99% on 3 lpm NC; Pain 0/10; bm8 04 23:40 Pain Scale: Adult bm8 01:30 Pain Scale: Adult pf1 04:07 Pain Scale: Adult bm8 [place] Coma Score: 04:32 Eye Response: spontaneous(4). Motor Response: obeys commands(6). Verbal Response: sp4 oriented(5). Total: 15. ED Course: 03/09 23:40 Patient arrived in ED. ra3 23:51 Jens Flores MD is Attending Physician. sp4 03/10 00:07 Juan Luis Taylor, MARILU is Primary Nurse. bm8 00:09 Triage completed. bm8 00:09 Arm band placed on right wrist. Patient placed in an exam room, on a stretcher, on bm8 cardiac monitor technician, on pulse oximetry. EKG completed in triage. Results shown to MD. EKG done per protocol. Performed by ED Staff. Labs ordered per protocol. Drawn by ED staff. 00:13 Patient has correct armband on for positive identification. Bed in low position. Call bm8 light in reach. Side rails up X2. Adult w/ patient. Client placed on continuous cardiac and pulse oximetry monitoring. NIBP monitoring applied. lunchroom monitor on. Pulse ox on. NIBP on. Door closed. Noise minimized. Visitors limited. Verbal reassurance given. 00:13 No provider procedures requiring assistance completed. Inserted saline lock: 20 gauge bm8 in right antecubital area, using aseptic technique. Blood collected. 00:23 Initial lab(s) drawn, by me, sent to lab. EKG done, by ED staff, reviewed by Jens Flores MD. Oxygen administration via nasal cannula \T\ 2L/min Response to oxygen therapy: symptoms improved. 00:29 Report given to Leyda Monique rn. bm8 00:38 Basic Metabolic Panel Sent. pf1 00:38 CBC with Diff Sent. pf1 00:38 LFT's Sent. pf1 00:38 Magnesium Sent. pf1 00:38 NT PRO-BNP Sent. pf1 00:38 PT-INR Sent. pf1 00:38 Troponin HS Sent. pf1 00:55 XRAY Chest (1 view) In Process Unspecified. EDMS 01:03 Primary Nurse role handed off by Juan Luis Taylor RN bm8 01:14 CT Chest Abdomen Pelvis W/O Contrast In Process Unspecified. EDMS 03:47 US Abdomen Limited In Process Unspecified. EDMS 04:05 Juan Luis Taylor RN is Primary Nurse. bm8 04:07 Provided Education on: need for admission. bm8 04:35 , Nelly Lord, contact [phone]. rv1 04:37 Rita Cummings MD is Hospitalizing Provider. sp4 05:35 Patient admitted, IV remains in place. km8 09:08 Primary Nurse role handed off by Juan Luis Taylor RN ll1 Administered Medications: 00:30 Drug: NS 0.9% IV 1000 ml IV at 1 bolus Per protocol; 1000 mL bolus Route: IV; Rate: 1 pf1 bolus; Site: right antecubital; 03:00 Follow up: IV Status: Completed infusion; IV Intake: 1000ml km8 00:30 Drug: Ondansetron IVP 8 mg IVP once; over 2 minutes Route: IVP; Site: right antecubital;pf1 01:30 Follow up: Response: No adverse reaction km8 01:10 Drug: morphine IVP or IV 4 mg IVP once over 4 mins Route: IVP; Infused Over: 4 mins; pf1 Site: right antecubital; 01:30 Follow up: Response: No adverse reaction km8 01:10 Drug: NS 0.9% IV 1000 ml IV at 125 ml/hr continuous Route: IV; Rate: 125 ml/hr; Site: pf1 right antecubital; 05:42 Follow up: IV Status: Infusion continued upon admission km8 01:10 Drug: Dicyclomine IM 20 mg IM once Route: IM; Site: right ventrogluteal; pf1 03:01 Follow up: Response: No adverse reaction km8 02:55 Drug: Calcium Gluconate IVPB 1 grams IVPB once over 60 mins; (mix in NS 100 mL) Route: km8 IVPB; Infused Over: 60 mins; Site: right antecubital; 04:06 Follow up: Response: No adverse reaction; IV Status: Completed infusion; IV Intake: bm8 100ml 04:05 Drug: Potassium Chloride IV 20 mEq IV at calculated rate once; administer over 1-2 bm8 hours Route: IV; Rate: calculated rate; Site: right antecubital; 06:04 Follow up: Response: No adverse reaction; IV Status: Completed infusion; IV Intake: bm8 100ml 04:06 Drug: HYDROmorphone IVP 1 mg IVP once Route: IVP; Site: right antecubital; km8 04:40 Follow up: Response: No adverse reaction; Pain is decreased km8 04:06 Drug: metoCLOPramide IVP 10 mg IVP once; over 1 to 2 minutes Route: IVP; Site: right bm8 antecubital; 05:43 Follow up: Response: No adverse reaction; Nausea is decreased km8 04:06 Drug: Promethazine IM 25 mg IM once Route: IM; Site: left deltoid; bm8 05:42 Follow up: Response: No adverse reaction; Nausea is decreased km8 06:04 Drug: Potassium Chloride IV 20 mEq IV at calculated rate once; administer over 1-2 bm8 hours Route: IV; Rate: calculated rate; Site: right antecubital; 06:04 Follow up: Response: No adverse reaction; IV Status: Infusion continued bm8 Medication: 00:13 VIS not applicable for this client. bm8 Intake: 03:00 IV: 1000ml; Total: 1000ml. km8 04:06 IV: 100ml; Total: 1100ml. bm8 06:04 IV: 100ml; Total: 1200ml. bm8 Outcome: 04:38 Decision to Hospitalize by Provider. sp4 05:35 Admitted to ER Hold. Please see [facility] for further documentation. km8 05:35 Condition: stable 05:35 Instructed on the need for admit, Demonstrated understanding of instructions, 11:56 Patient left the ED. 6 Signatures: Dispatcher [employer] EDClaribel Panchal, RN RN ll1 Tiffany Rea RN RN pf1 Maritza Rivera1 Nichole Hi 6 Jens Flores MD MD sp4 Dary Martin RN RN km8 Charity Valencia ra3 Juan Luis Taylor RN RN bm8
--- NOTE | 2024-03-10 04:39 | EDPHYS ---
Physician Documentation [facility] Name: Leandro Rand Age: 53 yrs Sex: Male : 1970 Arrival Date: 03/09/2024 Time: 23:37 Bed 16 Private MD: ED Physician Jens Flores HPI: 03/09 23:52 This 53 yrs old Male presents to ER via Unassigned with complaints of Chest sp4 Pressure. 03/10 04:32 Patient is 54-year-old male who presents with acute onset epigastric pain associated sp4 with intractable vomiting. Patient has history of diabetes mellitus, hypertension, hyperlipidemia, coronary artery disease, CHF, also gastroparesis. Patient was admitted for the same at 03/02/2024. Through 03/05/2024. Patient was then admitted for acute kidney injury, gastroparesis, hyperlipidemia, hypertension, morbid obesity. Additional diagnoses included hyponatremia, elevated LFTs. Patient's medications include atorvastatin, insulin glargine, Protonix, metoprolol, nebulizer, spironolactone, metformin, erythromycin. . Historical: - Allergies: 00:09 Segluromet; bm8 00:09 Synjardy; bm8 00:09 XIGDUO; bm8 - Home Meds: 00:09 insulin [Active]; Lipitor Oral [Active]; Metformin Oral [Active]; Metoprolol Tartrate bm8 Oral [Active]; water pill [Active]; - PMHx: 00:09 Congestive heart failure; COVID-19; Diabetes - IDDM; Diabetes - NIDDM; Home Oxygen bm8 (Left first finger a); Hyperlipidemia; lung failure; Myocardial infarction; - PSHx: 00:09 heart cath; Left first finger amputation; bm8 - Immunization history:: Adult Immunizations up to date. - Infectious Disease History:: Denies. - Social history:: Smoking status: Patient denies any tobacco usage or history of. - Family history:: not pertinent. ROS: 04:32 Constitutional: Negative for fever, chills, and weight loss, positive epigastric pain, sp4 positive lower chest pain, positive nausea positive vomiting 04:32 All other systems are negative, Exam: 04:32 Constitutional: This is a well developed, well nourished patient who is awake, alert, sp4 and in no acute distress. Head/Face: Normocephalic, atraumatic. Eyes: Pupils equal round and reactive to light, extra-ocular motions intact. Lids and lashes normal. Conjunctiva and sclera are not injected. Cornea within normal limits. Periorbital areas with no swelling, redness, or edema. ENT: Nares patent. No nasal discharge, no septal abnormalities noted. Tympanic membranes are normal and external auditory canals are clear. Oropharynx with no redness, swelling, or masses, exudates, or evidence of obstruction, uvula midline. Mucous membranes moist. Neck: Trachea midline, no thyromegaly or masses palpated, and no cervical lymphadenopathy. Supple, full range of motion without nuchal rigidity, or vertebral point tenderness. Chest/axilla: Normal chest wall appearance and motion. Nontender with no deformity. No lesions are appreciated. Cardiovascular: Regular rate and rhythm with a normal S1 and S2. No gallops, murmurs, or rubs. Normal PMI, no JVD. No pulse deficits. Respiratory: Lungs have equal breath sounds bilaterally, clear to auscultation and percussion. No rales, rhonchi or wheezes noted. No increased work of breathing, no retractions or nasal flaring. Abdomen/GI: Soft, with normal bowel sounds. No distension or tympany. No guarding or rebound. No evidence of tenderness throughout. Obese abdomen Back: No spinal tenderness. No costovertebral tenderness. Skin: Warm, dry with normal turgor. Normal color with no rashes, no lesions, and no evidence of cellulitis. MS/ Extremity: Pulses equal, no cyanosis. Neurovascular intact. Full, normal range of motion. Neuro: Awake and alert, GCS 15, oriented to person, place, time, and situation. Cranial nerves II-XII grossly intact. Motor strength 5/5 in all extremities. Sensory grossly intact. Psych: Awake, alert, with orientation to person, place and time. Behavior, mood, and affect are within normal limits 04:32 ECG was reviewed by the Attending Physician. Normal sinus rhythm normal EKG time 2343, rate 63 Vital Signs: 03/09 23:40 BP 77 / 33; Pulse 66; Resp 20; Temp 97.9; Pulse Ox 96% on R/A; Pain 10/10; bm8 03/10 00:30 BP 115 / 48; Pulse 67; Resp 16; Pulse Ox 98% ; pf1 01:00 BP 118 / 70; Pulse 83; Resp 16; Pulse Ox 97% ; pf1 01:30 BP 101 / 51; Pulse 71; Resp 16; Pulse Ox 97% on 2 lpm NC; Pain 7/10; pf1 02:00 BP 97 / 55; Pulse 82; Resp 23; Pulse Ox 98% on 2 lpm NC; km8 02:15 BP 102 / 61; Pulse 81; Resp 25; Pulse Ox 98% on 2 lpm NC; km8 02:30 BP 104 / 62; Pulse 80; Resp 24; Pulse Ox 99% on 2 lpm NC; km8 02:45 BP 113 / 60; Pulse 80; Resp 21; Pulse Ox 100% on 2 lpm NC; km8 03:00 BP 106 / 70; Pulse 86; Resp 19; Pulse Ox 100% on 2 lpm NC; km8 03:15 BP 118 / 59; Pulse 86; Resp 23; Pulse Ox 99% on 2 lpm NC; km8 03:30 BP 123 / 58; Pulse 89; Resp 20; Pulse Ox 99% on 2 lpm NC; km8 04:07 BP 126 / 68; Pulse 95; Resp 18; Pulse Ox 99% on 3 lpm NC; Pain 0/10; bm8 04/10 23:40 Pain Scale: Adult bm8 01:30 Pain Scale: Adult pf1 04:07 Pain Scale: Adult bm8 Caridad Coma Score: 04:32 Eye Response: spontaneous(4). Motor Response: obeys commands(6). Verbal Response: sp4 oriented(5). Total: 15. MDM: 03/09 23:51 Patient medically screened. sp4 03/10 03:18 ED course: EXAM DESCRIPTION: Chest Abd Pelvis Wo Con CLINICAL HISTORY: epigastric pain sp4 COMPARISON: 03/02/2024 TECHNIQUE: CT of the chest, abdomen and pelvis performed without IV contrast. Evaluation of the solid organs and vasculature is suboptimal due to lack of IV contrast. This exam was performed according to our departmental dose-optimization program, which includes automated exposure control, adjustment of the mA and/or kV according to patient size and/or use of iterative reconstruction technique. FINDINGS: Chest: Thyroid:No abnormalities of the visualized thyroid. Great Vessels:Great vessels have normal anatomic configuration. Thoracic Aorta:No abnormalities of the thoracic aorta identified. Pulmonary arteries:The main pulmonary artery is not dilated. Heart:No cardiomegaly, significant pericardial effusion, or coronary artery atherosclerosis Lymph Nodes:No enlarged mediastinal lymph nodes identified. Esophagus:No abnormalities of the esophagus identified Other:No additional findings. Lungs:Bilateral mild subpleural bands. No confluent airspace consolidation. Pleura:No pleural effusion or pneumothorax. Trachea/Airways:No abnormalities of the visualized trachea or airways. Abdomen: Liver: Hepatomegaly with diffusely decreased density. Gallbladder: Mild distention of the gallbladder with possible sludge or tiny gallstones. Spleen, Pancreas, and Adrenal Glands: The spleen, pancreas, and adrenal glands are unremarkable. Kidneys: The kidneys have normal size and contour without evidence of solid mass or hydronephrosis. Vasculature: The aorta and IVC have normal caliber and position. Stomach: The stomach and duodenum have normal course. Other: No free intraperitoneal air. No free fluid or lymphadenopathy. Pelvis: Bladder: Urinary bladder is unremarkable. Bowel: No dilated loops of large or small bowel. Moderate amount of stool. Appendix: Normal appendix. Pelvis:Prostate is not enlarged. Bones: Mild multilevel endplate spondylosis. Osteoarthritic change of the hips. IMPRESSION: 1. Mild distention of the gallbladder with possible sludge or tiny gallstones. If there is concern for acute cholecystitis ultrasound could provide additional characterization. 2. Hepatomegaly and hepatic steatosis.. 04:22 ED course: EXAM DESCRIPTION: Abdomen Exam Limited RadLex: US ABDOMEN LIMITED CLINICAL sp4 HISTORY: 53 years Male; ABD PAIN TECHNIQUE: Limited abdominal ultrasound was performed. COMPARISON: None. FINDINGS: Exam limited due to body habitus. Few tiny stones in the gallbladder fundus. Gallbladder wall measures 2 mm. No pericholecystic fluid. Common bile duct measures 4 mm. Negative sonographic Paris sign. IMPRESSION: Cholelithiasis without sonographic evidence of acute cholecystitis. . 04:23 HEART Score: History: Slightly Suspicious (0), ECG: Normal (0), Age: > 45 and < 65 sp4 years (1), Risk Factors: > or = 3 Risk factors for atherosclerotic disease (2), Troponin: < or = 1 x Normal Limit (0), Total Score = 3. 04:32 Differential diagnosis: acute pericarditis, anxiety, coronary artery disease chest wall sp4 pain, cholecystitis, Cholelithiasis costochondritis, esophagitis, gastritis. The patient was not given aspirin in the Emergency Department. Aspirin not given, patient refused. Data reviewed: vital signs, nurses notes, old medical records, lab test result(s), EKG, radiologic studies, CT scan, plain films, ultrasound. Consideration of Admission/Observation Patient was admitted/placed on observation. Escalation of care including admission/observation considered. Management of patient was discussed with the following: Hospitalist: Kayli ARRIETA . ED course: Patient admitted for intractable vomiting likely associated with gastroparesis. . 03/09 23:51 Order name: Basic Metabolic Panel; Complete Time: 02:45 sp4 03/09 23:51 Order name: CBC with Diff; Complete Time: 02:45 sp4 03/09 23:51 Order name: LFT's; Complete Time: 02:45 sp4 03/09 23:51 Order name: Magnesium; Complete Time: 02:45 sp4 03/09 23:51 Order name: NT PRO-BNP; Complete Time: 02:45 sp4 03/09 23:51 Order name: PT-INR; Complete Time: 02:45 sp4 03/09 23:51 Order name: Troponin HS; Complete Time: 02:45 sp4 03/10 03:18 Order name: Troponin High Sensitivity [facility] 03/10 05:06 Order name: CBC with Automated Diff [facility] 03/10 05:06 Order name: CBC with Automated Diff [facility] 03/10 05:06 Order name: Comprehensive Metabolic Panel [facility] 03/10 05:06 Order name: Comprehensive Metabolic Panel [facility] 03/10 07:46 Order name: Glucose, Ancillary Testing [facility] 03/09 23:51 Order name: XRAY Chest (1 view) [facility] 03/10 00:35 Order name: CT Chest Abdomen Pelvis W/O Contrast [facility] 03/10 03:18 Order name: US Abdomen Limited 4 03/09 23:51 Order name: Cardiac monitoring; Complete Time: 01:41 sp4 03/09 23:51 Order name: EKG - Nurse/Tech; Complete Time: 00:38 sp4 03/09 23:51 Order name: IV Saline Lock; Complete Time: 00:38 sp4 03/09 23:51 Order name: Labs collected and sent; Complete Time: 00:38 sp4 03/09 23:51 Order name: O2 Per Protocol; Complete Time: 00:38 sp4 03/09 23:51 Order name: O2 Sat Monitoring; Complete Time: 00:38 sp4 EC:32 Rate is 63 beats/min. Rhythm is regular, Normal Sinus Rhythm. QRS [place] is Normal. NE sp4 interval is normal. QRS interval is normal. QT interval is normal. No Q waves. T waves are Normal. No ST changes noted. Clinical impression: Normal ECG. Interpreted by me. Reviewed by me. Administered Medications: 00:30 Drug: NS 0.9% IV 1000 ml IV at 1 bolus Per protocol; 1000 mL bolus Route: IV; Rate: 1 pf1 bolus; Site: right antecubital; 03:00 Follow up: IV Status: Completed infusion; IV Intake: 1000ml [facility] 00:30 Drug: Ondansetron IVP 8 mg IVP once; over 2 minutes Route: IVP; Site: right antecubital;pf1 01:30 Follow up: Response: No adverse reaction [facility] 01:10 Drug: morphine IVP or IV 4 mg IVP once over 4 mins Route: IVP; Infused Over: 4 mins; pf1 Site: right antecubital; 01:30 Follow up: Response: No adverse reaction 8 01:10 Drug: NS 0.9% IV 1000 ml IV at 125 ml/hr continuous Route: IV; Rate: 125 ml/hr; Site: pf1 right antecubital; 05:42 Follow up: IV Status: Infusion continued upon admission 01:10 Drug: Dicyclomine IM 20 mg IM once Route: IM; Site: right ventrogluteal; pf1 03:01 Follow up: Response: No adverse reaction 8 02:55 Drug: Calcium Gluconate IVPB 1 grams IVPB once over 60 mins; (mix in NS 100 mL) Route: km8 IVPB; Infused Over: 60 mins; Site: right antecubital; 04:06 Follow up: Response: No adverse reaction; IV Status: Completed infusion; IV Intake: bm8 100ml 04:05 Drug: Potassium Chloride IV 20 mEq IV at calculated rate once; administer over 1-2 bm8 hours Route: IV; Rate: calculated rate; Site: right antecubital; 06:04 Follow up: Response: No adverse reaction; IV Status: Completed infusion; IV Intake: bm8 100ml 04:06 Drug: HYDROmorphone IVP 1 mg IVP once Route: IVP; Site: right antecubital; km8 04:40 Follow up: Response: No adverse reaction; Pain is decreased 8 04:06 Drug: metoCLOPramide IVP 10 mg IVP once; over 1 to 2 minutes Route: IVP; Site: right bm8 antecubital; 05:43 Follow up: Response: No adverse reaction; Nausea is decreased km8 04:06 Drug: Promethazine IM 25 mg IM once Route: IM; Site: left deltoid; bm8 05:42 Follow up: Response: No adverse reaction; Nausea is decreased 8 06:04 Drug: Potassium Chloride IV 20 mEq IV at calculated rate once; administer over 1-2 bm8 hours Route: IV; Rate: calculated rate; Site: right antecubital; 06:04 Follow up: Response: No adverse reaction; IV Status: Infusion continued bm8 Disposition Summary: 03/10/24 04:38 Hospitalization Ordered Notes: Hospitalization Status: Observation sp4 Provider: Rita Cummings spNneka Condition: Stable sp4 Problem: new sp4 Symptoms: have improved sp4 Bed/Room Type: Standard sp4 Location: Telemetry/MedSurg (observation)(03/10/24 10:36) jl7 Room Assignment: 404(03/10/24 10:36) jl Diagnosis - Intractable nausea vomiting, acute hypokalemia, diabetic gastroparesis, morbid sp4 obesity, complications of diabetes Forms: - Medication Reconciliation Form sp4 - SBAR form sp4 - Leadership Thank You Letter sp4 Signatures: Dispatcher [employer] Gifty Pavon RN Jordyn Angel RN RN jl7 Tiffany Rea RN RN pf1 Jens Flores MD MD sp4 Dary Martin RN RN km8 Juan Luis Taylor RN RN bm8 Corrections: (The following items were deleted from the chart) 03/09 23:52 23:52 BASIC METABOLIC PANEL+C.LAB.BRZ ordered. EDMS EDMS 23:52 23:52 CBC+H.LAB.BRZ ordered. EDMS EDMS 23:52 23:52 HEPATIC FUNCTION+C.LAB.BRZ ordered. EDMS EDMS 23:52 23:52 MAGNESIUM+C.LAB.BRZ ordered. EDMS EDMS 23:52 23:52 PROBNP+C.LAB.BRZ ordered. EDMS EDMS 23:52 23:52 PROTIME (+INR)+COAG.LAB.BRZ ordered. EDMS EDMS 23: 23:52 Troponin High Sensitivity+C.LAB.BRZ ordered. EDMS EDMS 23:52 23:52 Chest Single View+RAD.RAD.BRZ ordered. EDMS EDMS 03/10 05:12 04:38 Telemetry/MedSurg (observation) sp4 cg 05:12 04:38 sp4 cg 10:36 05:12 [facility] ER HOLD cg jl7 10:36 05:12 ERHOLD- cg jl7
[2024-03-10] MEDS ORDERED: HYDRALAZINE HCL 20 MG/ML VIAL IV PRN (05:00)
[2024-03-10] MEDS ORDERED: ALBUTEROL 2.5 MG/3 ML NEB SOL NEB PRN (05:02)
[2024-03-10] MEDS ORDERED: GLUCAGON 1 MG/VIAL IM PRN (05:12)
[2024-03-10] MEDS ORDERED: D50W 25 GM/50 ML SYRINGE IV PRN (05:12)
--- NOTE | 2024-03-10 05:12 | P.HP ---
Certification for Inpatient Patient admitted to: Observation With expected LOS: <2 Midnights Patient will require the following post-hospital care: None Practitioner: I am a practitioner with admitting privileges, knowledge of patient current condition, hospital course, and medical plan of care. Services: Services provided to patient in accordance with Admission requirements found in Title 42 Section 412.3 of the Code of Federal Regulations Patient History Date of Service: 03/10/24 Reason for admission: Epigastric pain and recurrent vomiting History of Present Illness: 54-year-old male with past medical history of HTN/DM/recently diagnosed DM gastroparesis/CAD/CHF who presented today because of new onset epigastric pain nonradiating associated with recurrent nausea and vomiting. Patient's symptoms have been persistent since the last 1 day. Patient admits to increasing weakness. He has not been able to keep anything down. Patient admits abdominal pain continues to worsening his intensity. On presented to the ED today his blood pressure was initially low at 77/33 but improved with IV fluid to the 120s systolic now. EKG shows normal sinus rhythm with no ST segment changes. Initial set of cardiac enzymes were negative, chest x-ray shows no acute pulmonary edema or consolidation, CT of the abdomen and pelvics shows gallbladder sludge with tiny gallstones, if concerning for cholecystitis, ultrasound of the gallbladder recommended. Patient is being admitted for further observation. Review of his record shows patient was admitted here last week for recurrent nausea vomiting as well as acute kidney injury, he was discharged to follow-up with Dr. Colorado [facility] as outpatient. He states he is here to see Dr. [place]. Allergies No Known Allergies Allergy (Verified 01/08/21 02:35) Home Medications: Atorvastatin Calcium 20 mg PO BEDTIME 02/22/22 Insulin Glargine,Hum.rec.anlog [Lantus] 50 units SQ BID 02/22/22 Pantoprazole [Protonix Tab*] 40 mg PO BID 02/22/22 Metoprolol Tartrate [Lopressor*] 50 mg PO BID #60 tab 02/23/22 Nebulizer Accessories [Aeroneb Go] 1 each MC DAILY #1 each 02/23/22 Nebulizer [Aeroneb Go Nebulizer] 1 each MC DAILY #1 each 02/23/22 Spironolactone [Aldactone*] 25 mg PO BID #60 tab 02/23/22 Metformin HCl [Glucophage*] 1,000 mg PO BIDWM 10/27/23 Erythromycin Base [Erythromycin] 250 mg PO TID #21 tab 03/05/24 - Past Medical/Surgical History Diabetic: Yes -: IDDM II -: GERD -: HTN -: HLD -: Coronavirus pneumonia long hospitalization -: L pointer finger partial amputation Psychosocial/ Personal History: Patient lives at home with his . - Family History Mother -: Hypertension, Diabetes - Social History Alcohol use: No CD- Drugs: No Caffeine use: Yes Place of Residence: Home Review of Systems Gastrointestinal: Nausea, Abdominal Pain Physical Examination - Physical Exam General: Alert, In no apparent distress, Oriented x3, Obese HEENT: Atraumatic, Normocephalic, PERRLA, Other Neck: 2+ carotid pulse no bruit, JVD not distended Respiratory: Clear to auscultation bilaterally, Normal air movement Cardiovascular: No edema, Normal pulses, Regular rate/rhythm, Normal S1 S2 Gastrointestinal: Normal bowel sounds, Soft and benign, Non-distended, Tenderness (Epigastric region) Musculoskeletal: No clubbing, No swelling Integumentary: No rashes, No breakdown Neurological: Normal gait, Normal speech, Normal tone, Sensation intact, Cranial nerves 3-12 intact - Studies Laboratory Data (last 24 hrs) 03/10/24 03/10/24 03/10/24 00:00 00:00 00:00 WBC 9.20 Hgb 12.5 L Hct 38.1 L Plt Count 334 PT 11.0 INR 1.00 Sodium 137 Potassium 2.9 L BUN 6 L Creatinine 0.98 Glucose 130 H Magnesium 1.2 L Total Bilirubin 0.6 AST 87 H ALT 73 H Alkaline Phosphatase 80 Assessment and Plan - Problems (Diagnosis) (1) Intractable nausea and vomiting Current Visit: Yes Status: Acute (2) Gastroparesis Current Visit: No Status: Chronic (3) Hypertension Current Visit: No Status: Chronic Qualifiers: Hypertension type: primary hypertension Qualified Code(s): I10 - Essential (primary) hypertension - Plan Impression Intractable nausea and vomitingrule out acute cholecystitis May be due to diabetic gastroparesis DM DM gastroparesis Hypertension CAD History of CHF Hypomagnesemia Hypokalemia Plan Will admit to observation IV Zofran as needed Start IV Pepcid Will consult GI Dr. Miroslava Ultrasound of the gallbladder Might need general surgery consult for acute cholecystitis May need to start Reglan 4 times daily if ultrasound of the gallbladder does not show acute cholecystitis Replace magnesium and potassium Insulin sliding scale with Accu-Cheks Hold metformin for now Full liquid diet for now DVT prophylaxis Lovenox Lovenox Advance directive full code - Advance Directives Does patient have a Living Will: No Does patient have a Durable POA for Healthcare: No
[2024-03-10] MEDS ORDERED: D10W 125 ML IV PRN (05:22)
[2024-03-10 06:12] VITALS: BMI 41.6
[2024-03-10] MEDS: NS KCL 20MEQ 20 MEQ/1,000 ML BAG IV SCH (06:41)
[2024-03-10] MEDS: INSULIN REGULAR (HUMAN) 100 UNIT/ML SQ SCH (07:30)
[2024-03-10] MEDS ORDERED: Magnesium Sulfate 2gm IVPB 2 G/50 ML BAG IV ONE ×2 (08:28→09:37)
[2024-03-10] MEDS: Magnesium Sulfate 2gm IVPB 2 G/50 ML BAG IV SCH (08:30)
[2024-03-10] MEDS: ENOXAPARIN 40 MG/0.4 ML SQ SCH (09:00)
[2024-03-10] MEDS: ERYTHROMYCIN BASE 250 MG TAB PO SCH (09:00)
[2024-03-10] MEDS: FAMOTIDINE 20 MG/2 ML VIAL IV SCH (09:00)
[2024-03-10] MEDS ORDERED: FAMOTIDINE 20 MG/2 ML VIAL IV ONE (09:36)
[2024-03-10] MEDS ORDERED: ENOXAPARIN 40 MG/0.4 ML SQ ONE (09:36)
--- NOTE | 2024-03-10 11:43 | P.PN ---
Date of Service: 03/10/24 Subjective: seen early on rounds this morning reports epigastric and periumbilical pain, starting yesterday, ate "puerto rican food" +nausea/vomiting, has not vomiting in last 1-2 hours after receiving meds in ER ROS: 10 point ROS as noted above, otherwise negative Physical Exam: GEN: Alert, oriented, uncomfortable appearing HEENT: Normal conjunctiva, sclera anicteric CV: Sinus tachycardia, no edema Pulm: Nonlabored respirations on room air, clear bilaterally ABD: Soft, moderate epigastric tenderness, mild RUQ Tenderness to deep palpation Neuro: Normal speech, normal affect vitals reviewed Problem List: Cholelithiasis Intractable nausea/vomiting IDDM2 with DM Gastroparesis Hypertension Chronic CHF Hepatomegaly with hepatic steatosis Cholelithiasis Intractable nausea/vomiting Reports new worsening epigastric pain with nausea/vomitting for 1-2 days. Unable to tolerate PO intake. pain in periumbilical region as well, which is different than recent hospitalization per patient recently hospitalized ~1 week ago for nausea/vomiting/VIN. was given prescription for erythromycin x1 week per GI recs and was advised to follow up with Dr. Ross for management of his gastroparesis. Patient has not seen Dr. Ross in over 1-2 years, had not followed up in office yet. multiple ER visits over the last 1-2 years for nausea/vomiting CT chest/abd/pelvis (03/10): Mild gallbladder distention with possible sludge/gallstones. Hepatomegaly with hepatic steatosis. Moderate stool. mild multilevel endplate spondylosis abdominal u/s (03/10): cholelithiasis without sonographic evidence of acute cholecystitis PRN antiemetics / analgesics Dr. [place] the [place] currently, no GI naturalization examiner Dr. Santos consulted to eval gallbladder possible gastroparesis vs flo continue erythromycin , add reglan continue pepcid NPO HIDA ordered IDDM2 with DM Gastroparesis Accu-checks, sliding scale insulin confirm home meds Hypertension confirm home meds IV hydralazine as needed Chronic CHF confirm home meds echo from 10/28/23 noted 50-55%EF with grade 1 diastolic dysfunction, mild TR/MR had [facility] october 2023 and had normal coronary arteries VTE: Lovenox Code: Full Dispo: Home, ~ 2 days pending improvement and surgery recs
--- NOTE | 2024-03-10 13:16 | RAD REPORT ---
EXAM DESCRIPTION: CT - Chest Abd Pelvis Wo Con - 03/10/2024 6:45 am CLINICAL HISTORY: Epigastric pain COMPARISON: 03/02/2024 TECHNIQUE: CT of the chest, abdomen and pelvis performed without IV contrast. Evaluation of the mercy d organs and vasculature is suboptimal due to lack of IV contrast. This exam was performed according to our departmental dose-optimization program, which includes automated exposure control, adjustment of the mA and/or kV according to patient size and/or use of iterative reconstruction technique. FINDINGS: Chest: Thyroid: No abnormalities of the visualized thyroid. Great Vessels: Great vessels have normal anatomic configuration. Thoracic Aorta: No abnormalities of the thoracic aorta identified. Pulmonary arteries: The main pulmonary artery is not dilated. Heart: No cardiomegaly, significant pericardial effusion, or coronary artery atherosclerosis Lymph Nodes: No enlarged mediastinal lymph nodes identified. Esophagus: No abnormalities of the esophagus identified Other: No additional findings. Lungs: Bilateral mild subpleural bands. No confluent airspace consolidation. Pleura: No pleural effusion or pneumothorax. Trachea/Airways: No abnormalities of the visualized trachea or airways. Abdomen: Liver: Hepatomegaly with diffusely decreased density. Gallbladder: Mild distention of the gallbladder with possible sludge or tiny gallstones. Spleen, Pancreas, and Adrenal Glands: The spleen, pancreas, and adrenal glands are unremarkable. Kidneys: The kidneys have normal size and contour without evidence of solid mass or hydronephrosis. Vasculature: The aorta and IVC have normal caliber and position. Stomach: The stomach and duodenum have normal course. Other: No free intraperitoneal air. No free fluid or lymphadenopathy. Pelvis: Bladder: Urinary bladder is unremarkable. Bowel: No dilated loops of large or small bowel. Moderate amount of stool. Appendix: Normal appendix. Pelvis: Prostate is not enlarged. Bones: Mild multilevel endplate spondylosis. Osteoarthritic change of the hips. IMPRESSION: 1. Mild distention of the gallbladder with possible sludge or tiny gallstones. If ther e is concern for acute cholecystitis ultrasound could provide additional characterization. 2. Hepatomegaly and hepatic steatosis. Electronically signed by: Chidi Osullivan DO 03/10/2024 01:32 AM CDT M Due to temporary technical issues with the PACS/Fluency reporting system, reports are being signed by the in house radiologist without review as a courtesy to ensure prompt reporting. The interpreting r adiologist is fully responsible for the content of the report.
--- NOTE | 2024-03-10 13:19 | RAD REPORT ---
EXAM DESCRIPTION: RAD - Chest Single View - 03/10/2024 6:03 am CLINICAL HISTORY: CHEST PAIN COMPARISON: None. FINDINGS: Single frontal radiograph view of the chest. Cardiomediastinal silhouette: Normal size and contour. Lungs: No consolidation, pneumothorax, or pleural effusion. Bones: No acute osseous abnormality. Leads overlie the chest. Upper abdomen: No abnormality identified. IMPRESSION: 1. No acute pulmonary process identified. Electronically signed by: Chidi Osullivan DO 03/10/2024 01:00 AM CDT M Due to temporary technical issues with the PACS/Fluency reporting system, reports are being signed by the in house radiologist without review as a courtesy to ensure prompt reporting. The interpreting r adiologist is fully responsible for the content of the report.
--- NOTE | 2024-03-10 13:27 | RAD REPORT ---
EXAM DESCRIPTION: US - Abdomen Exam Limited - 03/10/2024 3:45 am RadLex: US ABDOMEN LIMITED CLINICAL HISTORY: 53 years Male; ABD PAIN TECHNIQUE: Limited abdominal ultrasound was performed. COMPARISON: None. FINDINGS: Exam limited due to body habitus. Few tiny stones in the gallbladder fundus. Gallbladder wall measures 2 mm. No pericholecystic fluid. Common bile duct measures 4 mm. Negative sonographic Paris sign. IMPRESSION: Cholelithiasis without sonographic evidence of acute cholecystitis. Electronically signed by: Jayro Braxton MD 03/10/2024 04:16 AM CDT Due to temporary technical issues with the PACS/Fluency reporting system, reports are being signed by the in house radiologist without review as a courtesy to ensure prompt reporting. The interpreting r adiologist is fully responsible for the content of the report.
--- NOTE | 2024-03-10 17:46 | EKG ---
Test Date: 2024-03-09 Test Time: 23:43:25 Appellate Law Clerk: LINDA MEASUREMENT RESULTS: Intervals: Rate: 63 UT: 124 QRSD: 78 QT: 424 QTc: 433 [place]: P: 59 UT: 124 QRS: 34 T: 42 INTERPRETIVE STATEMENTS: Normal sinus rhythm Normal ECG Compared to ECG 03/02/2024 18:20:46 Sinus tachycardia no longer present Electronically Signed On 03-10-24 17:45:53 CDT by Ceasar Nguyen
[2024-03-10] MEDS: PIPER TAZO 3.375 GM in NA CHLORIDE 0.9% 100 ML IV SCH (17:52)
[2024-03-10] MEDS: METOCLOPRAMIDE 10 MG/2mL INJ IV SCH (17:52)
[2024-03-10] MEDS: MORPHINE 2 MG/ML SYR IV PRN (18:37)
--- NOTE | 2024-03-11 07:31 | RAD REPORT ---
EXAM DESCRIPTION: NM - Hepatobiliary System Imagin - 03/11/2024 7:11 am CLINICAL HISTORY: Cholelithiasis COMPARISON: Abdomen Exam Limited dated 03/10/2024; Chest Abd Pelvis Wo Con dated 03/10/2024 TECHNIQUE: The patient was administered 6.2 mCi Tc99m Choletec. Imaging of the right upper quadrant was performed initially for up to 120 minutes. Gallbladder ejection fraction determination was then performed utilizing synthetic mgm CCK over a sl ow 30 minute infusion. FINDINGS: Normal hepatic uptake and excretion with appropriate clearance of background blood pool ac tivity. Normal visualization of biliary and small bowel activity. The gallbladder was not visualized despite imaging out to 120 minutes. IMPRESSION: Nonvisualized gallbladder at 2 hours which would suggest cystic duct obstruction.
[2024-03-11 07:39] LABS: Absolute Basophils 0.1 K/uL (0-0.5); Absolute Eosinophils 0.4 K/uL (0-0.5); Absolute Lymphocytes (CBC) 1.4 K/uL (0.7-4.9); Absolute Monocytes 1.1 K/uL (0.1-1.3); Absolute Neutrophil 7.8 K/uL (1.8-8.0); Eosinophils % 3.4 % (0-4.4); Lymphocytes % 13.3 % (15.3-44.8); MCH 28.5 pg (27.0-35.0); MCHC 32.4 g/dL (32.0-36.0); MCV 88.2 fL (80-100); MPV 7.1 fL (7.6-11.3); Monocytes % 10.1 % (3.3-12.3); Neutrophils % 72.2 % (41.7-73.7); Platelets 251 thou/uL (152-406); Red Cell Distribution Width 13.6 % (12.1-15.2)
[2024-03-11] MEDS: ONDANSETRON 4 MG/2 ML VIAL IV PRN (07:47)
[2024-03-11 07:56] LABS: Albumin 2.4 g/dL (3.4-5.0); Albumin/Globulin Ratio 0.6 (1.1-1.8); Anion Gap 7.2 mEq/L (5.0-15.0); Bilirubin Total 1.1 mg/dL (0.2-1.0); Globulin 3.7 g/dL (2.3-3.5); Potassium 4.2 mEq/L (3.5-5.1); Protein, Total 6.1 g/dL (6.4-8.2)
--- NOTE | 2024-03-11 09:13 | P.PN ---
Date of Service: 03/11/24 Subjective: tentative plan for surgery today given suspected cystic duct obstruction continues with some epigastric tenderness family updated at bedside afebrile ROS: 10 point ROS as noted above, otherwise negative Physical Exam: GEN: Alert, oriented, uncomfortable appearing HEENT: Normal conjunctiva, sclera anicteric CV: Sinus tachycardia, no edema Pulm: Nonlabored respirations on room air, clear bilaterally ABD: Soft, moderate epigastric tenderness, moderate RUQ Tenderness to deep palpation Neuro: Normal speech, normal affect vitals reviewed Problem List: Suspected cystic duct obstruction Cholelithiasis Intractable nausea/vomiting IDDM2 with DM Gastroparesis Hypertension Chronic CHF Hepatomegaly with hepatic steatosis Suspected cystic duct obstruction Cholelithiasis, suspected cholecystitis Intractable nausea/vomiting Reports new worsening epigastric pain with nausea/vomitting for 1-2 days. Unable to tolerate PO intake. pain in periumbilical region as well, which is different than recent hospitalization per patient recently hospitalized ~1 week ago for nausea/vomiting/VIN. was given prescription for erythromycin x1 week per GI recs and was advised to follow up with Dr. Ross for management of his gastroparesis. Patient has not seen Dr. Ross in over 1-2 years, had not followed up in office yet. multiple ER visits over the last 1-2 years for nausea/vomiting CT chest/abd/pelvis (03/10): Mild gallbladder distention with possible sludge/gallstones. Hepatomegaly with hepatic steatosis. Moderate stool. mild multilevel endplate spondylosis abdominal u/s (03/10): cholelithiasis without sonographic evidence of acute cholecystitis PRN antiemetics / analgesics Dr[place], no GI telecommunications officer Dr. Santos consulted to eval gallbladder HIDA (03/11) with findings consistent with cystic duct obstruction tentative plan for surgery today with Dr. santos diet per surgery post-op possible gastroparesis vs flo continue erythromycin, reglan continue pepcid IDDM2 with DM Gastroparesis Accu-checks, sliding scale insulin confirm home meds Hypertension confirm home meds IV hydralazine as needed Chronic CHF confirm home meds echo from 10/28/23 noted 50-55%EF with grade 1 diastolic dysfunction, mild TR/MR had [facility] october 2023 and had normal coronary arteries VTE: Lovenox Code: Full Dispo: Home, ~ 2-3 days pending improvement and surgery
[2024-03-11] MEDS: NA CHLORIDE 0.9% 1,000 ML ONE (12:59)
[2024-03-11] MEDS: SUGAMMADEX SODIUM 200 MG/2 ML VIAL IV ONE (14:27)
[2024-03-11] MEDS: SUCCINYLCHOLINE 20 MG/ML (10 ML) IV ONE (14:28)
[2024-03-11] MEDS ORDERED: FENTANYL CITR 100 MCG/2 ML ONE ×2 (14:30→15:46)
[2024-03-11] MEDS ORDERED: LIDOCAINE 2% MPF 5 ML VIAL ONE (14:30)
[2024-03-11] MEDS ORDERED: ONDANSETRON 4 MG/2 ML VIAL ONE (14:30)
[2024-03-11] MEDS ORDERED: ROCURONIUM 50 MG/5 ML VIAL IV ONE (14:30)
[2024-03-11] MEDS ORDERED: propofoL 200 MG/20 ML VIAL IV ONE (14:30)
[2024-03-11] MEDS: BUPIVACAINE 0.25% PF 10 ML VIAL ONE (15:36)
[2024-03-11] MEDS ORDERED: dexAMETHasone 4 MG/ML VIAL ONE (15:45)
[2024-03-11] MEDS ORDERED: ALBUTEROL 2.5 MG/3 ML NEB SOL NEB PRN (16:18)
--- NOTE | 2024-03-11 16:52 | P.OP ---
Preoperative diagnosis: Acute Cholecystitis Postoperative diagnosis: Acute Cholecystitis Primary procedure: Laparoscopic Cholecystitis with ICG Cholangiography Anesthesia: GETA + Local Estimated blood loss: <20cc Specimen: Gallbladder Findings: Gangrenous GB, severe adhesions, short cystic w necrosis, steatosis Drain(s): KIRK drain (10mm Flat KIRK) Implants: Ramy Transferred to: Recovery Room Condition: Good
[2024-03-11] MEDS: HYDROMORPHONE HCL 1 MG/ML INJ ONE (17:40)
[2024-03-11] MEDS: HYDROCODONE/APAP 7.5/325 MG TAB PO PRN (20:22)
--- NOTE | 2024-03-12 02:23 | OP ---
Date of Procedure: 03/11/2024 Surgeon: Freddy Santos MD, Preoperative Diagnosis: Acute cholecystitis. Postoperative Diagnosis: Acute cholecystitis with gangrenous changes. Procedure Performed: Laparoscopic cholecystectomy with indocyanine green cholangiography. Anesthesia: General endotracheal with local with 0.25% Marcaine. Estimated Blood Loss: Less than 20 cc. Specimen: Gallbladder. Findings: Gangrenous changes in the gallbladder. Severe adhesions of right upper quadrant, short cy stic duct with necrosis extending down the cystic duct, short cystic duct, but adequate length, steat osis of the liver, which is significant. Drains: 10 mm flat KIRK drain placed in the subhepatic fossa. Implants: Ramy hemostatic matrix powder. Disposition: The patient was transferred to recovery room in good condition. Procedure In Detail: After informed consent was obtained, patient brought to the operating room, pre pped in the usual sterile fashion. After adequate anesthesia was achieved, I made a supraumbilical i ncision down through the subcutaneous tissue. 5 mm 0 degree optical trocar was introduced in the abd omen without incident or complication. Insufflation was obtained to 15 mmHg at this time. There was no injury to vital structures upon entry in the abdomen. Three additional trocars were placed, one i n the epigastrium, one in the right upper quadrant, one in the midabdomen. All of these were similar ly anesthetized and sharply incised. A 5 mm trocar placed under direct visualization without inciden t or complication. Patient positioned head up right-side up position. Ratcheted graspers was used t o attempt to grasp the patient's gallbladder, which was found to be quite inflamed and significantly adhesed to anterior abdominal wall, omental structures, as well as the right colon, as well as the st omach, as well as the duodenum. This required a combination of both sharp and blunt and electrocaute ry dissection to free the gallbladder from the structures as described. At this point, I was able to grasp the gallbladder, however, is quite distended, had significant gangrenous changes. At this poi nt, a decompression needle was brought into the fundus of the gallbladder to drain the gallbladder at this point from the fundus and black bile was appreciated coming up through this. Indocyanine green cholangiography was performed, at this point, to see if there is any filling of the gallbladder, whic h none was appreciated at this time. The common duct was seen in its anatomic position without any i nvolvement obviously at this point, other than having a short cystic duct, which obviously had some n ecrotic changes to it. At this point, the gallbladder was placed towards the patient's right shoulde r and dissection taken down the Kami pouch with careful dissection, predominately blunt dissectio n to identify 2 structures as both the cystic duct, cystic artery. These were encircled, skeletonize d, and the critical view of safety was obtained at this point. However, significant inflammatory pricilla nges did make visualization quite challenging and the cystic duct did have gangrenous changes to it. At this point, 3 triple titanium clips on the proximal side and singly on the distal side of both th e cystic duct and cystic artery. These structures were ligated using Endo Boris. At this point, th e gallbladder was removed from the hepatic fossa using electrocautery, placed in an EndoCatch bag, and removed through the umbilical tro car. There was oozing from the hepatic bed. This was fulgurated at this point. The clips found to be good anatomic position. I irrigated the abdomen copiously at this point and found there to be no additional hemostasis required at this point, I irrigated the area several times, suctioned out until completely clear. I performed indocyanine green cholangiography and starring at the hepatic fossa a nd the clips. There were in good anatomic position. There was no obvious spillage of bile. At this point, the area was suctioned out until completely dry. At this point, the patient position remaine d head up position. I then sprayed Ramy hemostatic powder after placing a 10 mm flat KIRK drain in t he right upper quadrant in subhepatic space bringing out to the lateral inferior-most trocar. This w as secured to the skin using a 3-0 nylon suture and the Ramy powder was sprayed as described, at th is point, in the subhepatic space. Patient positioned back in neutral position. The omentum was pac ked up in this area. I then closed the 12 mm trocar site using a Sanjay-Maryse suture passer with a 0 Vicryl in an interrupted fashion with good approximation of tissue. The abdomen was then desuffl ated under direct visualization without incident or complication. Remaining trocars were removed. A ll skin incisions were then copiously irrigated, closed with interrupted rafale. A sterile dressing placed over top. Patient tolerated the procedure without incident or complication, transferred to P ACU in good condition. All counts were correct at the end of the case. ALDEN/ADAL Voice ID: [id number] Report ID: [id number]
[2024-03-12 05:23] LABS: Absolute Lymphocytes (CBC) 0.7 K/uL (0.7-4.9); Absolute Monocytes 0.3 K/uL (0.1-1.3); Absolute Neutrophil 6.6 K/uL (1.8-8.0); Basophils % 0.3 % (0-1.3); Hematocrit 32.6 % (39.6-49.0); Hemoglobin 10.9 g/dL (13.6-17.9); Lymphocytes % 9.6 % (15.3-44.8); MCH 29.5 pg (27.0-35.0); MCHC 33.4 g/dL (32.0-36.0); MCV 88.3 fL (80-100); MPV 7.6 fL (7.6-11.3); Monocytes % 4.1 % (3.3-12.3); Nucleated Red Blood Cells % 0.2 % (0-0); Platelets 250 thou/uL (152-406); Red Cell Distribution Width 13.6 % (12.1-15.2)
[2024-03-12 05:43] LABS: Albumin 2.1 g/dL (3.4-5.0); Albumin/Globulin Ratio 0.5 (1.1-1.8); Anion Gap 13.7 mEq/L (5.0-15.0); Bilirubin Total 0.9 mg/dL (0.2-1.0); Globulin 3.9 g/dL (2.3-3.5); Magnesium 1.7 mg/dL (1.6-2.4); Potassium 4.7 mEq/L (3.5-5.1)
[2024-03-12 08:33] LABS: Blood Morphology Comment NOT SEEN (NOT SEEN); Platelet Estimate ADEQ; White Blood Cell Scan OK (OK)
--- NOTE | 2024-03-12 09:29 | P.PN ---
Date of Service: 03/12/24 Subjective: Feeling better post-operatively tolerated clear liquids. Hungry reports pain significantly improved. no-minimal abdominal pain no BM yet, +flatus afebrile ROS: 10 point ROS as noted above, otherwise negative Physical Exam: GEN: Alert, oriented, uncomfortable appearing HEENT: Normal conjunctiva, sclera anicteric CV: Sinus tachycardia, no edema Pulm: Nonlabored respirations on room air, clear bilaterally ABD: Soft, minimal abdominal tenderness, surgical dressing in place Neuro: Normal speech, normal affect KIRK drain x1 in place vitals reviewed Problem List: Acute gangrenous cholecystitis with cholelithiasis, s/p lap flo with ICG cholangiography (03/11) Intractable nausea/vomiting secondary to above hx of gastroparesis IDDM2 Hypertension Chronic CHF Hepatomegaly with hepatic steatosis Acute gangrenous cholecystitis with cholelithiasis, s/p lap flo with ICG cholangiography (03/11) Intractable nausea/vomiting secondary to above hx of gastroparesis Reports new worsening epigastric pain with nausea/vomitting for 1-2 days. Unable to tolerate PO intake. pain in periumbilical region as well, which is different than recent hospitalization per patient recently hospitalized ~1 week ago for nausea/vomiting/VIN. was given prescription for erythromycin x1 week per GI recs and was advised to follow up with Dr. Ross for management of his gastroparesis. Patient has not seen Dr. Ross in over 1-2 years, had not followed up in office yet. Patient with recent diagnosis of gastroapresis at [facility] 3 weeks ago. Symptoms started ~same time. Suspect nausea/vomiting secondary to gallbladder rather than gastroparesis given findings during surgery and start of patients symptoms. Stop reglan and erythromycin for now. Monitor for worsening s/s. CT chest/abd/pelvis (03/10): Mild gallbladder distention with possible sludge/gallstones. Hepatomegaly with hepatic steatosis. Moderate stool. mild multilevel endplate spondylosis abdominal u/s (03/10): cholelithiasis without sonographic evidence of acute cholecystitis Dr. [place] currently, no GI production hand Dr. Santos consulted to eval gallbladder HIDA (03/11) with findings consistent with cystic duct obstruction s/p lap flo with ICG cholangiography (03/11) Found to have gangrenous gallbladder, with severe adhesions and short cystic duct w/necrosis. +steatosis KIRK drain in place diet per surgery; full liquids for lunch. advance to soft diet for dinner if tolerating lunch continue pepcid PRN analgesics / antiemetics IDDM2 Accu-checks, sliding scale insulin confirm home meds Hypertension confirm home meds IV hydralazine as needed Chronic CHF confirm home meds echo from 10/28/23 noted 50-55%EF with grade 1 diastolic dysfunction, mild TR/MR had [facility] october 2023 and had normal coronary arteries VTE: Lovenox Code: Full Dispo: Home, ~1-2 days pending pain improves / tolerating diet without issues / stable labs tomorrow
[2024-03-13 03:39] LABS: Absolute Lymphocytes (CBC) 1.3 K/uL (0.7-4.9); Absolute Monocytes 0.7 K/uL (0.1-1.3); Absolute Neutrophil 6.3 K/uL (1.8-8.0); Basophils % 0.4 % (0-1.3); Eosinophils % 0.1 % (0-4.4); Hematocrit 33.2 % (39.6-49.0); Hemoglobin 10.7 g/dL (13.6-17.9); Lymphocytes % 15.5 % (15.3-44.8); MCH 28.2 pg (27.0-35.0); MCHC 32.1 g/dL (32.0-36.0); MCV 87.7 fL (80-100); MPV 7.5 fL (7.6-11.3); Monocytes % 8.4 % (3.3-12.3); Neutrophils % 75.6 % (41.7-73.7); Platelets 287 thou/uL (152-406); RBC Red Blood Cell Count 3.78 M/uL (4.33-5.43); Red Cell Distribution Width 13.8 % (12.1-15.2)
[2024-03-13 04:00] LABS: Albumin 2.1 g/dL (3.4-5.0); Albumin/Globulin Ratio 0.5 (1.1-1.8); Anion Gap 8.3 mEq/L (5.0-15.0); Bilirubin Total 0.5 mg/dL (0.2-1.0); Globulin 3.9 g/dL (2.3-3.5); Potassium 4.3 mEq/L (3.5-5.1)
[2024-03-13] MEDS: INSULIN GLARGINE 100 UNIT/ML SQ SCH (09:03)
--- NOTE | 2024-03-13 09:43 | P.DS ---
Admission Date: 03/11/24 Discharge Date: 03/13/24 Disposition: ROUTINE DISCHARGE Discharge Condition: GOOD Reason for Admission: Epigastric pain and recurrent vomiting Consultations: General Surgery - Dr. Santos Brief History of Present Illness: 54yo M, PMH: HTN/DM/recently diagnosed DM gastroparesis/CAD/CHF Patient presented today because of new onset epigastric pain nonradiating associated with recurrent nausea and vomiting. Patient's symptoms have been persistent since the last 1 day. Patient admits to increasing weakness. He has not been able to keep anything down. Patient admits abdominal pain continues to worsening his intensity. On presented to the ED today his blood pressure was initially low at 77/33 but improved with IV fluid to the 120s systolic now. EKG shows normal sinus rhythm with no ST segment changes. Initial set of cardiac enzymes were negative, chest x-ray shows no acute pulmonary edema or consolidation, CT of the abdomen and pelvics shows gallbladder sludge with tiny gallstones, if concerning for cholecystitis, ultrasound of the gallbladder recommended. Patient is being admitted for further observation. Hospital Course: Problem List: Acute gangrenous cholecystitis with cholelithiasis, s/p lap flo with ICG cholangiography (03/11) Intractable nausea/vomiting secondary to above hx of gastroparesis IDDM2 Hypertension Chronic CHF Hepatomegaly with hepatic steatosis Patient presented with epigastric pain, nausea/vomiting, inability to tolerate PO, and was found to have acute gangrenous cholecystitis during surgery. CT chest/abd and abdominal ultrasound noted cholelithiasis with mild gallbladder distention and possible slude/gallstones. Dr. Santos, general surgeon, was consulted to eval gallbladder. HIDA scan with findings concerning for cystic duct obstruction. Patient was taken to the OR and had lap flo with ICG cholangiography done on 03/[address] Santos and was found to have an acute gangrenous gallbladder, with severe adhesions and short cystic duct w/necrosis and steatosis. KIRK drain was placed. Post-operative course was uncomplicated. He had no issue tolerating advancement of his diet and pain decreased to a soreness at surgical incisions. He had return of bowel function with +Flatus and bowel movement prior to discharge. Patient was feeling better, abdominal pain improved, n/v resolved, and was deemed stable for discharge with KIRK Drain Patient to follow up with Dr. Santos in 1 week for further management and KIRK drain removal. Patient completed ~3 days of zosyn and is to complete 11 days of augmentin on discharge for a total of 14 days of antibiotics. During his hospitalization, patient reported he had been recently diagnosed with DM gastroparesis ~3 weeks prior to admission at [facility] around the time patient's symptoms first started. Given the surgical findings and presentation of symptoms, suspect symptoms to be more secondary to acute gangrenous cholecystitis rather than gastroparesis. Advised to stop taking erythromycin for now and to monitor for worsening signs and symptoms at home. If develops gastroparesis symptoms in the future, can repeat gastric emptying study for further evaluation. Medications: Augmentin twice a day x11 days norco 5/325 as needed for pain stop erythromycin Follow up: PCP 3-[address] Santos in ~1 week Please call to confirm / schedule appointments Physical Exam: GEN: Alert, oriented, uncomfortable appearing HEENT: Normal conjunctiva, sclera anicteric CV: Sinus tachycardia, no edema Pulm: Nonlabored respirations on room air, clear bilaterally ABD: Soft, minimal abdominal tenderness, surgical dressing in place Neuro: Normal speech, normal affect Vital Signs/Physical Exam: Temp Pulse Resp BP Pulse Ox 97.1 F 75 20 108/62 97 03/13/24 08:00 03/13/24 08:00 03/13/24 08:00 03/13/24 08:00 03/13/24 08:00 Laboratory Data at Discharge: WBC 8.30 thou/uL (4.3-10.9) 03/13/24 03:05 Hgb 10.7 g/dL (13.6-17.9) L 03/13/24 03:05 Hct 33.2 % (39.6-49.0) L 03/13/24 03:05 Plt Count 287 thou/uL (152-406) 03/13/24 03:05 PT 11.0 SECONDS (9.5-12.5) 03/10/24 00:00 INR 1.00 03/10/24 00:00 Sodium 136 mEq/L (136-145) 03/13/24 03:05 Potassium 4.3 mEq/L (3.5-5.1) 03/13/24 03:05 BUN 9 mg/dL (7-18) 03/13/24 03:05 Creatinine 0.79 mg/dL (0.70-1.30) 03/13/24 03:05 Glucose 276 mg/dL (74-106) H 03/13/24 03:05 Magnesium 2.0 mg/dL (1.6-2.4) 03/13/24 03:05 Total Bilirubin 0.5 mg/dL (0.2-1.0) 03/13/24 03:05 AST 26 U/L (15-37) 03/13/24 03:05 ALT 38 U/L (16-61) 03/13/24 03:05 Alkaline Phosphatase 73 U/L (45-117) 03/13/24 03:05 Home Medications: Atorvastatin Calcium 20 mg PO BEDTIME 02/22/22 Insulin Glargine,Hum.rec.anlog [Lantus] 50 units SQ BID 02/22/22 Pantoprazole [Protonix Tab*] 40 mg PO BID 02/22/22 Metoprolol Tartrate [Lopressor*] 50 mg PO BID #60 tab 02/23/22 Nebulizer Accessories [Aeroneb Go] 1 each MC DAILY #1 each 02/23/22 Nebulizer [Aeroneb Go Nebulizer] 1 each MC DAILY #1 each 02/23/22 Spironolactone [Aldactone*] 25 mg PO BID #60 tab 02/23/22 Metformin HCl [Glucophage*] 1,000 mg PO BIDWM 10/27/23 Amox/Clavulanate [Augmentin 875-125 Tab] 1 tab PO BID 11 Days #22 tab 03/13/24 Hydrocodone 5/APAP 325 [[place] 5/325] 1 tab PO Q6H PRN #15 tab 03/13/24 New Medications: Amox/Clavulanate [Augmentin 875-125 Tab] 1 tab PO BID 11 Days #22 tab Hydrocodone 5/APAP 325 [[place] 5/325] 1 tab PO Q6H PRN #15 tab PRN Reason: Pain Physician Discharge Instructions: Physician Discharge Instructions: Patient presented with epigastric pain, nausea/vomiting, inability to tolerate PO, and was found to have acute gangrenous cholecystitis during surgery. CT chest/abd and abdominal ultrasound noted cholelithiasis with mild gallbladder distention and possible slude/gallstones. Dr. Santos, general surgeon, was consulted to eval gallbladder. HIDA scan with findings concerning for cystic duct obstruction. Patient was taken to the OR and had lap flo with ICG cholangiography done on 03/[address] Santos and was found to have an acute gangrenous gallbladder, with severe adhesions and short cystic duct w/necrosis and steatosis. KIRK drain was placed. Post-operative course was uncomplicated. He had no issue tolerating advancement of his diet and pain decreased to a soreness at surgical incisions. He had return of bowel function with +Flatus and bowel movement prior to discharge. Patient was feeling better, abdominal pain improved, n/v resolved, and was deemed stable for discharge with KIRK Drain . Patient to follow up with Dr. Santos in 1 week for further management and KIRK drain removal. Patient completed ~3 days of zosyn and is to complete 11 days of augmentin on discharge for a total of 14 days of antibiotics. During his hospitalization, patient reported he had been recently diagnosed with DM gastroparesis ~3 weeks prior to admission at [facility] around the time patient's symptoms first started. Given the surgical findings and presentation of symptoms, suspect symptoms to be more secondary to acute gangrenous cholecystitis rather than gastroparesis. Advised to stop taking erythromycin for now and to monitor for worsening signs and symptoms at home. If develops gastroparesis symptoms in the future, can repeat gastric emptying study for further evaluation. Medications: Augmentin twice a day x11 days norco 5/325 as needed for pain stop erythromycin Follow up: PCP 3-[address] Santos in ~1 week Please call to confirm / schedule appointments Followup: DamianOTOOT [Primary Care Provider] - Time spent managing pt's care (in minutes): 45
[2024-03-13 11:04] VITALS: O2SAT 95
[2024-03-13 13:45] VITALS: BP 108/59; TEMP 98.3
== END 2024-03-13 13:50 | disposition home or self-care (01) | DRG 418 ==
LOC: ER 23:37 → ERHOLD 03-10 05:02 → 4TH 03-10 10:59 → OBSVTOIN 03-11 12:36
PROVIDERS: ADMIT Internal Medicine; ATTEND Hospitalist
PROC: BF121ZZ Fluoroscopy of Gallbladder using Low Osmolar Contrast (ICD-10-PCS; 2024-03-11)
PROC: 0FT44ZZ Resection of Gallbladder, Percutaneous Endoscopic Approach (ICD-10-PCS; principal; 2024-03-11 15:30)
DX: K80.01 Calculus of gallbladder with acute cholecystitis with obstruction (principal); I50.32 Chronic diastolic (congestive) heart failure; Z68.41 Body mass index [BMI] 40.0-44.9, adult; E66.01 Morbid (severe) obesity due to excess calories; K82.A1 Gangrene of gallbladder in cholecystitis; I11.0 Hypertensive heart disease with heart failure; E87.6 Hypokalemia; E78.5 Hyperlipidemia, unspecified; E83.42 Hypomagnesemia; K21.9 Gastro-esophageal reflux disease without esophagitis; K76.0 Fatty (change of) liver, not elsewhere classified; I25.10 Atherosclerotic heart disease of native coronary artery without angina pectoris; I25.2 Old myocardial infarction; Z79.4 Long term (current) use of insulin; Z88.8 Allergy status to other drugs, medicaments and biological substances; Z86.16 Personal history of COVID-19; Z79.84 Long term (current) use of oral hypoglycemic drugs; Z89.012 Acquired absence of left thumb; Z79.899 Other long term (current) drug therapy
CPT/HCPCS: 36415; 71045; 71250; 74176; 76705; 78226; 80048; 80053; 80076; 82947; 83735; 83880; 84484; 85025; 85610; 88304; 93005; 96361; 96365; 96366; 96372; 96375; 99285; A9537; G0378; J0500; J0612; J1100; J1170; J1650; J1815; J2001; J2270; J2405; J2543; J2550; J2704; J2765; J3010; J3475; J3480; J7030

== ENCOUNTER 2024-08-31 20:26 | Emergency (ER) | payer OTHER ==
--- OUTSIDE RECORDS SUMMARY | 2024-08-31 20:35 | XMS REPORT | Continuity of Care Document ---
Author Name Unknown Address [address] [facility] [address] [place] [address] [facility] thconnect Address [address] [facility] [place] [address] Care Team Providers Care Press Offbearer Name Role Phone NATACHA SOMERS Primary Care Physician Unav JOHN Rolon Attending Clinician Unav WENDY Murrieta Attending Clinician Unavailable Florence Downs RN Attending Clinician [phone] SACHIN MCALLISTER Attending Clinician Unavailable Jody Heard Attending Clinician [phone] Jasmin Russell MD Attending Clinician [phone] Sachin Mcallister DO Attending Clinician [phone] Jeremias Ibarra Attending Clinician UnavailLYUBOV Humphrey Attending Clinician Unavailable MD LUIS ARMANDO Attending Clinician UnavailROHINI Cunningham Attending Clinician Unavailable MARCELLE ZHU Attending Clinician Unavailable MAISHA RIVERS [facility]ICAL Attending Quynh n Unavailable RADHA GAMINO Attending Clinician Unavailable LAB47 Attending Clinician Unavailable UDOETUK, AKBAR Attending Clinician Unavailable CHOLO LOVE Attending Clinician Unavailable Murali Zafar MD Attending Clinician [phone] Natasha ARRIETA, Dawna Attending Clinician [phone] Cholo Love MD Attending Clinician [phone] Horace MICHEL, Nata Rae Attending Clinician UnaJON Wiggins Attending Clinician Unavailable Gerson Palomino DO Attending Clinician [phone] Jon Cade MD Attending Clinician + 2 Lukasz Saul Attending Clinician Unavailable JAXON THOMAS Attending Clinician Unavailable JAI LOPEZ Attending Clinician Unavailable Jai Lopez MD Attending Clinician [phone] [place] Attending Clinician Unavailable Annette Lemus Attending Clinician [phone] GERSON GREENE Attending Clinician Unavailkaela Cervantes MD, Dustin Asher Attending Clinician [phone] Gerson Greene MD Attending Clinician + [phone] Doctor Unassigned, Topaz Attending Clinician U Marlene Snyder Attending Clinician [phone] SACHIN MCALLISTER Admitting Clinician Unavailable Sachin Mcallister DO Admitting Clinician [phone] Jeremias Ibarra Admitting Clinician Unavailabl e [place] Admitting Clinician Unavailable CHOLO LOVE Admitting Clinician Unavailable Cholo Love MD Admitting Clinician [phone] GERSON PALOMINO Admitting Clinician Unavailable Physician, No Primary or Family Admitting Clinic bill Unavailable Payers Payer Name Policy Type Policy Number Effective Date Expirati on Date Source [facility] COPAY FOCUS 9 [id number] 2024 00:00:00 LIZBETH QUIROS [employer]: O [employer] 94 ON STAND 9 [id number] 2023 00:00:00 Problems Condition Name Condition Details Condition Category Status Onset Date Resolution Date Last Treatment Date Treating Clinician Comments Source Fatigue, unspecifie d type Fatigue, unspecifie d type Disease Active 3-27 00:00: 00 [facility] 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 Disease Active 15 00:00: 00 Maisha constantino Congestive heart failure, [...] nausea present Disease Active 2021-11 00:00: 00 [facility] Intractabl e vomiting Intractabl e vomiting Disease Active 2021-11 00:00: 00 [facility] Tinea pedis Tinea pedis Disease Active 2021-11 00:00: 00 [facility] Chronic respirator y failure with hypoxia Chronic respirator y failure with hypoxia Disease Active 2021-11 00:00: 00 [facility] Type 2 diabetes mellitus without complicati on, without long-term current use of insulin Type 2 diabetes mellitus without complicati on, without long-term current use of insulin Disease Active 2021-11 0 00:00: 00 [facility] PAF (paroxysma l atrial fibrillati on) PAF (paroxysma l atrial fibrillati on) Disease Active 2021-11 0 00:00: 00 [facility] CHAPARRO (obstructi ve sleep apnea) CHAPARRO (obstructi ve sleep apnea) Disease Active 2021-11 0 00:00: 00 [facility] Chest pain, unspecifie d type Chest pain, unspecifie d type Disease Active 2021-11 0 00:00: 00 [facility] Morbid obesity with body mass index of 40.0-49.9 Morbid obesity with body mass index of 40.0-49.9 Disease Active 2021-11 0 00:00: 00 [facility] Elevated LFTs Elevated LFTs Disease Active 2021-11 0 00:00: 00 [facility] Diabetic ketoacidos is without coma associated with type 2 diabetes mellitus Diabetic ketoacidos is without coma associated with type 2 diabetes mellitus Disease Active 04-21 00:00: 00 [facility] Obesity (BMI 30-39.9) Obesity (BMI 30-39.9) Disease Active 04-21 00:00: 00 [facility] No known active problems No known active problems Disease [facility] Allergies, Adverse Reactions, Alerts Allergy Name Allergy Type Status Severity Reaction(s) Onset Date Inactive Date Treating Clinician Comments Source EMPAGLIF LOZIN DRUG INGREDI Active Other-Cmnt 2021-11 00:00: 00 [facility] Empaglif lozin Propensi ty to adverse reaction s to drug Active Other - See comments 2021-11 00:00: 00 DKA [facility] Empaglif lozin Propensi ty to adverse reaction s Active Other 2021-11 00:00: 00 DKA Maisha Seybold - Externa l No Known Allergie s DA Active U 2021-11 0-24 [facility] NO KNOWN ALLERGIE S Drug Class Active [facility] Social History Social Habit Start Date Stop Date Quantity Comments Source History of tobacco use Cigarette Smoker [facility] Sexual orientation [facility] Gender identity Maeve nuvia Moy - External Alcohol intake 2023-04-17 00:00:00 2023-04-17 00:00:00 Ex-drinker (finding) Maisha Farzaneh - External Exposure to SARS-CoV-2 (event) 2022-11-02 00:00:00 2022-11-12 00:35:00 Not sure [facility] Tobacco use and exposure 2022-09-03 00:00:00 2022-09-03 00:00:00 Smokeless tobacco non-user [facility] History of Social function 2021-09-30 00:00:00 2021-09-30 00:00:00 [facility] Sex Assigned At 1970 00:00:00 1970 00:00:00 Maisha Moy - External Smoking Status Start Date Stop Date Source Never smoked tobacco Maisha Farzaneh - External Ex-smoker 2022-09-03 00:00:00 2022-09-03 00:00:00 [facility] Medications Ordered Medication Name Filled Medication Name Start Date Stop Date Current Medication? Ordering Clinician Indication Dosage Frequency Signature (SIG) Comments Components Source furosemide (LASIX) injection 40 mg 02-26 19:15: 00 02-26 19:06 :00 No 40mg 40 mg, Slow IV Push, ONCE, 1 dose, On 02/27/24 at 1415, Routine [facility] aspirin 81 mg chewable tablet 02-26 17:45: 47 Yes 81mg Take 1 tablet by mouth daily. [facility] spironolact one 25 mg tablet 02-26 17:45: 47 Yes 25mg Take 1 tablet by mouth 2 (two) times daily. [facility] omega-3-dha -epa-dpa-fi sh oil (OMEGA-3 2100) 1,050-1,200 mg Cap 02-26 17:45: 47 Yes Take by mouth 2 (two) times daily. [facility] METOPROLOL SUCCINATE ORAL 02-26 17:45: 47 Yes 50mg Take 50 mg by mouth 2 (two) times daily. [facility] pantoprazol e 40 mg EC tablet 02-26 17:45: 47 Yes 40mg Take 1 tablet by mouth 2 (two) times daily. [facility] insulin detemir (LEVEMIR U-100 INSULIN SC) 02-26 17:45: 47 Yes 45U inject 45 Units under the skin 2 (two) times daily. [facility] atorvastati n (LIPITOR) 40 mg tablet 02-26 17:45: 47 Yes 40mg Take 1 tablet by mouth at bedtime. [facility] glipiZIDE 5 mg tablet 02-26 17:45: 47 Yes 5mg Take 1 tablet by mouth daily. [facility] KCL (KLOR-CON M20) tablet 40 mEq 02-26 14:00: 00 Yes 40meq 40 mEq, Oral, DAILY, First dose on 02/27/24 at 0900, Until Discontinu ed, Routine [facility] metoclopram nixon HCl (REGLAN) tablet 5 mg 02-26 12:30: 00 Yes 5mg 5 mg, Oral, AC, First dose on 02/27/24 at 0730, Until Discontinu ed, Routine [facility] metoclopram nixon HCl 5 mg tablet 02-26 00:00: 00 03-06 04:59 :00 No [id number] 5mg Take 1 tablet by mouth every 6 (six) hours as needed for Nausea and Vomiting (N/V) for up to 7 days. [facility] KCL 20 mEq tablet 02-26 00:00: 00 03-02 04:59 :00 No [id number] 40meq Take 2 tablets by mouth daily for 3 days. [facility] dicyclomine 10 mg capsule 02-26 00:00: 00 03-02 04:59 :00 No [id number] 10mg Take 1 capsule by mouth 4 (four) times daily for 3 days. [facility] acetaminoph en (TYLENOL) tablet 650 mg 02-25 22:21: 08 Yes 650mg 650 mg, Oral, Q6HPRN, Starting on Thu02/26/24 at 1721, Until Discontinu ed, Routine, Pain (scale 4-6) [facility] KCL (KLOR-CON M20) tablet 40 mEq 02-25 17:00: 00 02-25 21:45 :00 No 40meq 40 mEq, Oral, Q4H, 2 doses, First dose on Thu02/26/24 at 1200, Last dose on Thu02/26/24 at 1600, Routine [facility] dicyclomine (BENTYL) capsule 10 mg 02-24 17:00: 00 Yes 10mg 10 mg, Oral, QID, First dose on Thu02/25/24 at 1200, Until Discontinu ed, Routine [facility] KCL (KLOR-CON M20) tablet 20 mEq 02-24 15:00: 00 02-24 17:15 :00 No 20meq 20 mEq, Oral, Q2H, 2 doses, First dose on Thu02/25/24 at 1000, Last dose on Thu02/25/24 at 1200, Routine [facility] metoprolol tartrate (LOPRESSOR) tablet 25 mg 02-24 14:00: 00 Yes 25mg 25 mg, Oral, BID, First dose on Thu02/25/24 at 0900, Until Discontinu ed, Routine [facility] enoxaparin (LOVENOX) injection 40 mg 02-24 14:00: 00 Yes 40mg 40 mg, Subcutaneo us, DAILY, First dose on Thu02/25/24 at 0900, Until Discontinu ed, Routine [facility] glipiZIDE (GLUCOTROL) tablet 5 mg 02-24 14:00: 00 Yes 5mg 5 mg, Oral, DAILY, First dose on Thu02/25/24 at 0900, Until Discontinu ed, Routine [facility] aspirin chewable tablet 81 mg 02-24 14:00: 00 Yes 81mg 81 mg, Oral, DAILY, First dose on Thu02/25/24 at 0900, Until Discontinu ed, Routine [facility] metoclopram nixon HCl (REGLAN) injection 10 mg 02-24 05:00: 00 02-25 22:23 :08 No 10mg 10 mg, Slow IV Push, Q6H, First dose on Thu02/25/24 at 0000, Until Discontinu ed, Routine [facility] atorvastati n (LIPITOR) tablet 40 mg 02-24 02:00: 00 Yes 40mg 40 mg, Oral, QHS, First dose on Thu02/24/24 at 2100, Until Discontinu ed, Routine [facility] pantoprazol e (PROTONIX) EC tablet 40 mg 02-24 01:00: 00 Yes 40mg 40 mg, Oral, BID, First dose on Thu02/24/24 at 2000, Until Discontinu ed, Routine [facility] insulin detemir U-100 (LEVEMIR U-100 INSULIN) injection 45 Units 02-24 01:00: 00 Yes 45U 45 Units, Subcutaneo us, BID, First dose on Thu02/24/24 at 2000, Until Discontinu ed
Rest ricted - To be dispensed only to: Continuati on from home [facility] glucagon (GLUCAGEN DIAGNOSTIC KIT) injection 1 mg 02-23 20:27: 21 Yes 1mg 1 mg, Intramuscu lar, PRN, Starting on Thu02/24/24 at 1527, Until Discontinu ed, [place], Blood Glucose < or = 70 mg/dL and patient is NPO, unable to swallow or has mental changes. [facility] HYDROcodone -acetaminop hen (NORCO) 10-325 mg tablet 1 tablet 02-23 20:12: 43 02-25 22:21 :00 No 1{tbl} 1 tablet, Oral, Q6HPRN, Starting on Thu02/24/24 at 1512, Until Thu02/26/24 at 1721, Routine, Pain (scale 7-10) [facility] Sliding Scale Insulin-Reg ular 02-23 16:30: 00 Yes Subcutaneo us, AC+HS, First dose on Thu02/24/24 at 1130, Until Discontinu ed, Routine [facility] lactated ringers IV infusion 1,000 mL 02-23 14:00: 00 02-24 20:00 :27 No 1000mL at 125 mL/hr, 1,000 mL, IV Infusion, CONTINUOUS , Starting on Thu02/24/24 at 0900, Until Thu02/25/24 at 1500, Routine [facility] glucagon (GLUCAGEN DIAGNOSTIC KIT) injection 1 mg 02-23 12:47: 50 Yes 1mg 1 mg, Intramuscu lar, PRN, Starting on Thu02/24/24 at 0747, Until Discontinu ed, [place], Blood Glucose < or = 70 mg/dL and patient is NPO, unable to swallow or has mental changes. [facility] dextrose 50 % in water (D50W) injection 25 mL 02-23 12:47: 50 Yes 25mL 25 mL, Slow IV Push, PRN, Starting on Thu02/24/24 at 0747, Until Discontinu ed, [place], Blood Glucose < or = 70 mg/dL and patient is NPO, unable to swallow or has mental status changes. [facility] proMETHazin e (PHENERGAN) 25 mg in NS 50 mL IV piggyback (CNR) 02-23 12:47: 00 Yes 25mg 25 mg, IV Piggyback, at 200 mL/hr Administer over 15 Minutes, Q4HPRN, Starting on Thu02/24/24 at 0747, Until Discontinu ed, Routine, Nausea and Vomiting (N/V) [facility] ondansetron (ZOFRAN (PF)) injection 4 mg 02-23 12:45: 00 02-23 12:35 :00 No 4mg 4 mg, Slow IV Push, ONCE, 1 dose, On Thu02/24/24 at 0745, [place] [facility] iopamidol (ISOVUE 370-500 mL) injection 100 mL 02-23 09:45: 00 02-23 09:45 :00 No [id number] 100mL 100 mL, Intravenou s, ONCE, 1 dose, On Thu02/24/24 at 0445, Routine [facility] NaCl 0.9% (NS) bolus infusion 500 mL 02-23 08:00: 00 02-23 09:46 :00 No 500mL at 999 mL/hr, 500 mL, IV Infusion, ONCE, 1 dose, On Thu02/24/24 at 0300, [place] [facility] potassium chloride in water 10 mEq/100 mL RTU 10 mEq 02-23 07:46: 00 02-23 09:17 :00 No 10meq 10 mEq, IV Piggyback, ONCE, 1 dose, On Thu02/24/24 at 0300, Administer over 60 Minutes, 100 mL [facility] FENTanyl PF (SUBLIMAZE (PF)) injection 50 mcg 02-23 07:45: 00 02-23 07:29 :00 No 50ug 50 mcg, Slow IV Push, ONCE, 1 dose, On Thu02/24/24 at 0245, Routine [facility] ondansetron (ZOFRAN (PF)) injection 4 mg 02-23 07:00: 00 02-23 07:29 :00 No 4mg 4 mg, Slow IV Push, ONCE, 1 dose, On Thu02/24/24 at 0200, [place] [facility] NaCl 0.9% (NS) bolus infusion 500 mL 02-23 07:00: 00 02-23 07:55 :00 No 500mL at 999 mL/hr, 500 mL, IV Infusion, ONCE, 1 dose, On Thu02/24/24 at 0200, STAT [facility] sodium chloride (NS) injection 5 mL 02-23 06:01: 43 Yes 5mL 5 mL, Intravenou s, PRN, Starting on Thu02/24/24 at 0101, Until Discontinu ed, Routine, IV line flushing [facility] Aspirin 81 MG oral Chewable Tablet 04-17 08:32: 54 Yes 81mg Take 1 tablet (81 mg total) by mouth daily Maisha constantino OZEMPIC (0.25 or 0.5 mg/dose) 2 mg/3 mL SQ Solution Pen-Injecto r 04-17 00:00: 00 Yes [id number] 3 .25mg Inject 0.25 mg into the skin once a week If tolerated after 4 weeks, increase to 0.5mg weekly Maisha constantino Metformin HCl 1000 MG oral Tablet 04-17 00:00: 00 Yes [id number] 3 1000mg Take 1 tablet (1,000 mg total) by mouth in the morning and 1 tablet (1,000 mg total) in the evening. Take with meals. Maisha constantino Atorvastati n Calcium 40 MG oral Tablet 04-17 00:00: 00 Yes [id number] 3 40mg Take 1 tablet (40 mg total) by mouth daily Maisha constantino Insulin Aspart (NovoLOG FlexPen) 100 UNIT/ML subcutaneou s Solution Pen-injecto r 04-17 00:00: 00 Yes [id number] 3 Use as directed three times daily, inject 24 units TID plus sliding scale. Max daily dose 80 units Maisha constantino Insulin Detemir (Levemir FlexPen) 100 UNIT/ML subcutaneou s Solution Pen-injecto r 04-17 00:00: 00 Yes [id number] 3 Inject 35 units twice daily Maisha constantino Insulin Detemir (Levemir) 100 UNIT/ML subcutaneou s Solution 04-17 00:00: 00 04-17 00:00 :00 No [id number] 3 Inject 35 units twice dominguez Maisha constantino Insulin Pen Needle 31G X 5 MM does not apply [facility] 04-17 00:00: 00 04-17 00:00 :00 No [id number] 3 Inject insulin 5 times daily Maisha constantino Budesonide, Inhalation, 0.5 MG/2ML inhalation Suspension 04-14 00:00: 00 Yes [id number] .5mg Take 2 mL (0.5 mg total) by nebulizati on 2 times daily Maisha constantino OZEMPIC (0.25 or 0.5 mg/dose) 2 mg/3 mL SQ Solution Pen-Injecto r 04-13 00:00: 00 04-17 00:00 :00 No [id number] 3 .25mg Inject 0.25 mg into the [...] inhalation Inhalant Solution 04-08 00:00: 00 Yes [id number] 1.25mg Q.25D Take 3 mL (1.25 mg total) by nebulizati on every 6 hours as needed for wheezing Maisha constantino Amoxicillin -Pot Clavulanate 875-125 MG oral Tablet 04-08 00:00: 00 Yes [id number] 1{tbl} Take 1 tablet by mouth 2 times daily Maisha constantino Furosemide (Lasix) 20 MG oral Tablet 04-08 00:00: 00 Yes [id number] 20mg Take 1 tablet (20 mg total) by mouth daily Maisha constantino Metoprolol Succinate 25 MG oral Capsule ER 24 Hour Sprinkle 04-08 00:00: 00 Yes [id number] 25mg Take 25 mg by mouth daily Maisha constantino Lisinopril 5 MG oral Tablet 04-08 00:00: 00 Yes [id number] 5mg Take 1 tablet (5 mg total) by mouth daily Maisha constantino Potassium Chloride Lanie ER 20 MEQ oral Tab CR tablet 04-08 00:00: 00 Yes [id number] 20meq Take 1 tablet (20 mEq total) by mouth daily Maisha constantino Metoprolol Succinate 25 MG oral TABLET SR 24 HR 04-08 00:00: 00 Yes 25mg Take 1 tablet (25 mg total) by mouth daily Maisha constantino Budesonide, Inhalation, 0.5 MG/2ML inhalation Suspension 04-08 00:00: 00 Yes [id number] .5mg Take 2 mL (0.5 mg total) by nebulizati on 2 times daily Maisha constantino Insulin Aspart Prot & Aspart (NovoLOG 70/30 FlexPen ReliOn) (70-30) 100 UNIT/ML subcutaneou s Suspension Pen-injecto r 04-08 00:00: 00 Yes Inject per sliding scale Maisha constantino Insulin Glargine (Lantus SoloStar) 100 UNIT/ML subcutaneou s Solution Pen-injecto r 04-08 00:00: 00 Yes inject 30 units daily Maisha constantino Insulin Detemir (Levemir) 100 UNIT/ML subcutaneou s Solution 04-08 00:00: 00 04-17 00:00 :00 No [id number] 3 Inject 30 units daily. Increase dosage by 2 units every 2 days until fasting glucose less than 140 or better. Max daily dose of 60 units Maisha constantino Insulin Aspart (NovoLOG FlexPen) 100 UNIT/ML subcutaneou s Solution Pen-injecto r 04-08 00:00: 00 04-17 00:00 :00 No [id number] 3 Use as directed three times daily, inject 10 units TID plus sliding scale. Max daily dose 60 units Maisha Collinsa dougie predniSONE (DELTASONE) 10 MG oral tablet 2023-0 5-10 00:00: 00 04-14 04:59 :00 No [id number] 40mg Take 4 tablets (40 mg total) [...] mg total) by mouth daily Maisha constantino [place]-3-aci d Ethyl Esters 1 g oral Capsule [...] mg total) by mouth daily Maisha constantino aspirin 81 mg chewable tablet 2021-11 15:36: 13 Yes 81mg Take 81 mg by mouth daily. [facility] spironolact one 25 mg tablet 2021-11 15:36: 13 Yes 25mg Take 25 mg by mouth 2 (two) times daily. [facility] omega-3-dha -epa-dpa-fi sh oil (OMEGA-3 2100) 1,050-1,200 mg Cap 2021-11 15:36: 13 Yes Take by mouth 2 (two) times daily. [facility] METOPROLOL SUCCINATE ORAL 2021-11 15:36: 13 Yes 50mg Take 50 mg by mouth 2 (two) times daily. [facility] pantoprazol e 40 mg EC tablet 2021-11 15:36: 13 Yes 40mg Take 40 mg by mouth 2 (two) times daily. [facility] atorvastati n 20 mg tablet 2021-11 11:58: 50 11-12 00:00 :00 No 40mg Take 40 mg by mouth at bedtime. [facility] famotidine 40 mg tablet 2021-11 11:58: 50 11-12 00:00 :00 No 40mg Take 40 mg by mouth daily. [facility] metoclopram nixon HCl (REGLAN) injection 10 mg 2021-11 19:45: 00 11-13 17:59 :00 No 10mg 10 mg, Slow IV Push, Q6H, 8 doses, First dose on Thu11/11/22 at 1345, Last dose on Thu11/13/22 at 0600, Routine [facility] potassium chloride in water 10 mEq/100 mL RTU 10 mEq 2021-11 15:00: 00 11-11 17:25 :00 No 10meq 10 mEq, IV Piggyback, Q1H, 2 doses, First dose on Thu11/11/22 at 0900, Last dose on Thu11/11/22 at 1000, Administer over 60 Minutes, 100 mL [facility] KCL (KLOR-CON M20) tablet 40 mEq 2021-11 14:15: 00 11-11 19:57 :00 No 40meq 40 mEq, Oral, Q2H, 3 doses, First dose on Thu11/11/22 at 0815, Last dose on Thu11/11/22 at 1200, Routine [facility] pantoprazol e (PROTONIX) EC tablet 40 mg 2021-11 02:00: 00 Yes 40mg 40 mg, Oral, BID, First dose on Thu11/10/22 at 2000, Until Discontinu ed, Routine [facility] potassium chloride in water 10 mEq/100 mL RTU 10 mEq 2021-11 23:45: 00 11-11 01:05 :00 No 10meq 10 mEq, IV Piggyback, ONCE, 1 dose, On Thu11/10/22 at 1745, Administer over 60 Minutes, [address] [facility] potassium chloride in water 10 mEq/100 mL RTU 10 mEq 2021-11 22:00: 00 11-10 22:59 :00 No 10meq 10 mEq, IV Piggyback, ONCE, 1 dose, On Thu11/10/22 at 1600, Administer over 60 Minutes, [address] [facility] [address] [facility] potassium chloride in water 10 mEq/100 mL RTU 10 mEq 2021-11 17:00: 00 11-10 20:59 :00 No 10meq 10 mEq, IV Piggyback, Q1H, 4 doses, First dose on Thu11/10/22 at 1100, Last dose on Thu11/10/22 at 1400, Administer over 60 Minutes, 100 mL [facility] KCL (KLOR-CON M20) tablet 40 mEq 2021-11 15:45: 00 11-10 14:57 :00 No 40meq 40 mEq, Oral, ONCE, 1 dose, On Thu11/10/22 at 0945, Routine [facility] insulin glargine (LANTUS U-100) injection 10 Units 2021-11 15:00: 00 Yes 10U 10 Units, Subcutaneo us, DAILY, First dose on Thu11/10/22 at 0900, Until Discontinu ed, Routine [facility] aspirin chewable tablet 81 mg 2021-11 15:00: 00 Yes 81mg 81 mg, Oral, DAILY, First dose on Thu11/10/22 at 0900, Until Discontinu ed, Routine [facility] Sliding Scale Insulin - Lispro (HumaLOG) + Fsbg Testing 2021-11 14:00: 00 Yes Subcutaneo us, TID MEALS+HS, First dose (after last modificati on) on Thu11/10/22 at 0800, Until Discontinu ed, Routine [facility] metoprolol succinate XL (TOPROL XL) tablet 50 mg 2021-11 14:00: 00 Yes 50mg 50 mg, Oral, BID, First dose on Thu11/10/22 at 0800, Until Discontinu ed [facility] apixaban (ELIQUIS) tablet 5 mg 2021-11 14:00: 00 Yes [id number] 5mg 5 mg, Oral, BID, First dose on Thu11/10/22 at 0800, Until Discontinu ed, Routine
Indicatio ns: Non-Valvul ar Atrial Fibrillati on [facility] pantoprazol e (PROTONIX) injection 40 mg 2021-11 14:00: 00 11-10 21:04 :12 No 40mg 40 mg, Slow IV Push, Q12H, First dose on Thu11/10/22 at 0800, Until Discontinu ed [facility] spironolact one (ALDACTONE) tablet 25 mg 2021-11 14:00: 00 11-10 21:02 :33 No 25mg 25 mg, Oral, BID, First dose on Thu11/10/22 at 0800, Until Discontinu ed, Routine [facility] glucagon (GLUCAGEN DIAGNOSTIC KIT) injection 1 mg 2021-11 07:13: 25 Yes 1mg 1 mg, Intramuscu lar, PRN, Starting on Thu11/10/22 at 0113, Until Discontinu ed, [place], Blood Glucose < or = 70 mg/dL and patient is unable to swallow or has mental changes. [facility] dextrose 50 % in water (D50W) injection 25 mL 2021-11 07:13: 25 Yes 25mL 25 mL, Slow IV Push, PRN, Starting on Thu11/10/22 at 0113, Until Discontinu ed, [place], Blood Glucose < or = 70 mg/dL and patient is unable to swallow or has mental status changes. [facility] ondansetron (ZOFRAN (PF)) injection 4 mg 2021-11 07:13: 15 11-11 19:30 :03 No 4mg 4 mg, Slow IV Push, Q6HPRN, Starting on Thu11/10/22 at 0113, Until Thu11/11/22 at 1330, Routine, Nausea and Vomiting (N/V) [facility] HYDROcodone -acetaminop hen (NORCO) 10-325 mg tablet 1 tablet 2021-11 07:13: 12 Yes 1{tbl} 1 tablet, Oral, Q6HPRN, Starting on Thu11/10/22 at 0113, Until Discontinu ed, Routine, Pain (scale 7-10) [facility] acetaminoph en (TYLENOL) tablet 650 mg 2021-11 07:13: 06 Yes 650mg 650 mg, Oral, Q6HPRN, Starting on Thu11/10/22 at 0113, Until Discontinu ed, Routine, Pain (scale 1-3) [facility] potassium chloride in water 10 mEq/100 mL RTU 10 mEq 2021-11 06:00: 00 11-10 06:45 :00 No 10meq 10 mEq, IV Piggyback, ONCE, 1 dose, On Thu11/10/22 at 0000, Administer over 60 Minutes, 100 mL [facility] pantoprazol e (PROTONIX) injection 40 mg 2021-11 04:45: 00 11-10 05:14 :00 No 40mg 40 mg, Slow IV Push, ONCE, 1 dose, On Thu11/09/22 at 2245 [facility] NaCl 0.9% (NS) bolus infusion 1,000 mL 2021-11 04:15: 00 11-10 04:00 :00 No 1000mL at 999 mL/hr, 1,000 mL, IV Infusion, ONCE, 1 dose, On Thu11/09/22 at 2215, STAT [facility] metoclopram nixon HCl (REGLAN) injection 10 mg 2021-11 03:15: 00 11-10 03:54 :00 No 10mg 10 mg, Slow IV Push, ONCE, 1 dose, On 11/09/22 at 2115, [place] [facility] aspirin 81 mg chewable tablet 2021-11 01:13: 48 Yes 81mg Take 81 mg by mouth daily. [facility] spironolact one 25 mg tablet 2021-11 01:13: 48 Yes 25mg Take 25 mg by mouth 2 (two) times daily. [facility] omega-3-dha -epa-dpa-fi sh oil (OMEGA-3 2100) 1,050-1,200 mg Cap 2021-11 01:13: 48 Yes Take by mouth 2 (two) times daily. [facility] METOPROLOL SUCCINATE ORAL 2021-11 01:13: 48 Yes 50mg Take 50 mg by mouth 2 (two) times daily. [facility] atorvastati n 20 mg tablet 2021-11 01:13: 48 Yes 40mg Take 40 mg by mouth at bedtime. [facility] pantoprazol e 40 mg EC tablet 2021-11 01:13: 48 Yes 40mg Take 40 mg by mouth 2 (two) times daily. [facility] famotidine 40 mg tablet 2021-11 01:13: 48 Yes 40mg Take 40 mg by mouth daily. [facility] insulin glargine (LANTUS U-100) injection 10 Units 2021-11 15:00: 00 Yes 10U 10 Units, Subcutaneo us, DAILY, First dose (after last modificati on) on 11/08/22 at 0900, Until Discontinu ed, Routine [facility] insulin glargine 100 unit/mL injection 2021-11 00:00: 00 02-23 00:00 :00 No [id number] 10U inject 10 Units under the skin daily. If not eating or if blood sugar is between 80 and 120 give HALF the dose. If blood sugar less than 80: Eat a meal and recheck. Give half dose of insulin once blood sugar over 120. [facility] insulin lispro (human) (HumaLOG U-100) injection 3 Units 2021-11 23:00: 00 Yes 3U 3 Units, Subcutaneo us, TID MEALS, First dose (after last modificati on) on Thu11/07/22 at 1700, Until Discontinu ed, Routine [facility] aspirin 81 mg chewable tablet 2021-11 17:37: 57 Yes 81mg Take 81 mg by mouth daily. [facility] spironolact one 25 mg tablet 2021-11 17:37: 57 Yes 25mg Take 25 mg by mouth 2 (two) times daily. [facility] omega-3-dha -epa-dpa-fi sh oil (OMEGA-3 2100) 1,050-1,200 mg Cap 2021-11 17:37: 57 Yes Take by mouth 2 (two) times daily. [facility] METOPROLOL SUCCINATE ORAL 2021-11 17:37: 57 Yes 50mg Take 50 mg by mouth 2 (two) times daily. [facility] atorvastati n 20 mg tablet 2021-11 17:37: 57 Yes 40mg Take 40 mg by mouth at bedtime. [facility] pantoprazol e 40 mg EC tablet 2021-11 17:37: 57 Yes 40mg Take 40 mg by mouth 2 (two) times daily. [facility] sodium phosphate 30 mmol in NaCl 0.9% (NS) 250 mL piggyback 2021-11 17:30: 00 11-07 21:49 :00 No 30mmol 30 mmol, IV Piggyback, ONCE, 1 dose, On Thu11/07/22 at 1130, Administer over 4 Hours, 250 mL [facility] apixaban (ELIQUIS) tablet 5 mg 2021-11 15:30: 00 Yes 5mg 5 mg, Oral, BID, First dose on Thu11/07/22 at 0930, Until Discontinu ed, Routine
Indicatio ns: Non-Valvul ar Atrial Fibrillati on [facility] aspirin chewable tablet 81 mg 2021-11 15:00: 00 Yes 81mg 81 mg, Oral, DAILY, First dose on Thu11/07/22 at 0900, Until Discontinu ed, Routine [facility] KCL (KLOR-CON M20) tablet 40 mEq 2021-11 15:00: 00 11-07 17:13 :00 No 40meq 40 mEq, Oral, ONCE, 1 dose, On Thu11/07/22 at 0900, Routine [facility] insulin regular, human (HUMULIN R U-500, CONC, INSULIN SC) 2021-11 14:59: 33 11-07 00:00 :00 No 35U inject 35 Units under the skin 2 (two) times daily. [facility] tirzepatide 5 mg/0.5 mL subcutaneou s injection 2021-11 14:59: 33 11-07 00:00 :00 No 5mg inject 5 mg under the skin weekly. [facility] metoprolol succinate XL (TOPROL XL) tablet 50 mg 2021-11 14:00: 00 Yes 50mg 50 mg, Oral, BID, First dose on Thu11/07/22 at 0800, Until Discontinu ed, Routine [facility] atorvastati n (LIPITOR) tablet 40 mg 2021-11 03:00: 00 Yes 40mg 40 mg, Oral, QHS, First dose on Thu11/06/22 at 2100, Until Discontinu ed, Routine [facility] metFORMIN 1,000 mg tablet 2021-11 00:00: 00 Yes [id number] 1000mg Take 1 tablet by mouth 2 (two) times daily with meals. [facility] insulin regular human (HUMULIN R) 500 unit/mL injection 2021-11 00:00: 00 Yes [id number] Do not take your scheduled regular insulin. [...] meal and cover again with sliding scale [facility] apixaban 5 mg tablet 2021-11 00:00: 00 02-23 00:00 :00 No [id number] 5mg Take 1 tablet by mouth 2 (two) times daily. Indication s: atrial fibrillati on [facility] tirzepatide (MOUNJARO) 7.5 mg/0.5 mL PnIj 2021-11 00:00: 00 11-12 00:00 :00 No [id number] 7.5mg inject 7.5 mg under the skin weekly. [facility] Sliding Scale Insulin - Lispro (HumaLOG) + Fsbg Testing 2021-11 23:00: 00 Yes Subcutaneo us, TID MEALS+HS, First dose on Thu11/06/22 at 1700, Until Discontinu ed, Routine [facility] enoxaparin (LOVENOX) injection 40 mg 2021-11 23:00: 00 11-07 15:23 :13 No 40mg 40 mg, Subcutaneo us, DAILY, First dose on Thu11/06/22 at 1700, Until Discontinu ed, Routine [facility] D5W-LR IV infusion 1,000 mL 2021-11 22:32: 00 Yes 1000mL at 150 mL/hr, IV Infusion, CONTINUOUS , Starting on Thu11/06/22 at 1645, Until Discontinu ed, Routine [facility] glucagon (GLUCAGEN DIAGNOSTIC KIT) injection 1 mg 2021-11 22:00: 35 Yes 1mg 1 mg, Intramuscu lar, PRN, Starting on Thu11/06/22 at 1600, Until Discontinu ed, [place], Blood Glucose < or = 70 mg/dL and patient is unable to swallow or has mental changes. [facility] dextrose 50 % in water (D50W) injection 25 mL 2021-11 22:00: 35 Yes 25mL 25 mL, Slow IV Push, PRN, Starting on Thu11/06/22 at 1600, Until Discontinu ed, [place], Blood Glucose < or = 70 mg/dL and patient is unable to swallow or has mental status changes. [facility] sodium bicarbonate 8.4 % (1 mEq/mL) injection 50 mEq 2021-11 16:15: 00 11-06 16:16 :00 No 50meq 50 mEq, Slow IV Push, ONCE, 1 dose, On Thu11/06/22 at 1015, Routine [facility] insulin glargine (LANTUS U-100) injection 20 Units 2021-11 15:30: 00 11-07 20:55 :57 No 20U 20 Units, Subcutaneo us, DAILY, First dose on Thu11/06/22 at 0930, Until Discontinu ed, Routine [facility] clotrimazol e (LOTRIMIN) 1 % topical cream 2021-11 15:00: 00 Yes Topical, DAILY, First dose on Thu11/06/22 at 0900, Until Discontinu ed, Routine [facility] morpHINE (2 mg/mL) injection 2 mg 2021-11 14:51: 00 11-06 16:16 :00 No 2mg 2 mg, Slow IV Push, ONCE, 1 dose, On Thu11/06/22 at 0900, Routine [facility] empaglifloz in-metformi n (SYNJARDY) 12.5-1,000 mg Tab 2021-11 14:36: 52 11-06 00:00 :00 No 2{tbl} Take 2 tablets by mouth 2 (two) times daily. [facility] it[facility] D5W-LR IV infusion 1,000 mL 2021-11 12:45: 00 11-06 21:59 :42 No 1000mL at 200 mL/hr, IV Infusion, CONTINUOUS , Starting on Thu11/06/22 at 0645, Until Thu11/06/22 at 1559, Routine [facility] ondansetron (ZOFRAN (PF)) injection 4 mg 2021-11 11:51: 01 Yes 4mg 4 mg, Slow IV Push, Q6HPRN, Starting on Thu11/06/22 at 0551, Until Discontinu ed, [place], Nausea and Vomiting (N/V) [facility] acetaminoph en (TYLENOL) tablet 650 mg 2021-11 11:39: 11 Yes 650mg 650 mg, Oral, Q6HPRN, Starting on Thu11/06/22 at 0539, Until Discontinu ed, Routine, Pain (scale 4-6), Pain (scale 1-3), headache [facility] NaCl 0.9% (NS) bolus infusion 1,000 mL 2021-11 07:30: 00 11-06 08:22 :00 No 1000mL at 999 mL/hr, 1,000 mL, IV Infusion, ONCE, 1 dose, On Thu11/06/22 at 0130, STAT [facility] morpHINE (2 mg/mL) injection 4 mg 2021-11 07:15: 00 11-06 07:16 :00 No 4mg 4 mg, Slow IV Push, ONCE, 1 dose, On Thu11/06/22 at 0115, Routine [facility] iopamidol (ISOVUE 370-500 mL) injection 150 mL 2021-11 07:00: 00 11-06 07:00 :00 No [id number] 150mL 150 mL, Intravenou s, ONCE, 1 dose, On Thu11/06/22 at 0100, Routine [facility] NaCl 0.45% (1/2NS) 1000 mL + KCL 20 mEq 2021-11 06:45: 00 11-06 11:36 :49 No 1000mL [facility] D5W 0.45% NaCl (1/2NS) 1 L + KCL 20 mEq 2021-11 06:43: 25 11-06 11:36 :49 No IV Infusion, at 200 mL/hr, PRN - SEE INSTRUCTIO NS, Starting on Thu11/06/22 at 0043, Until [place]bra 12/8/22 at 0536, [place], Blood glucose control [facility] acetaminoph en (TYLENOL) tablet 975 mg 2021-11 05:30: 00 11-06 04:58 :00 No 975mg 975 mg, Oral, ONCE, 1 dose, On Thu11/05/22 at 2330, [place] [facility] ondansetron (ZOFRAN (PF)) injection 4 mg 2021-11 05:30: 00 11-06 04:57 :00 No 4mg 4 mg, Slow IV Push, ONCE, 1 dose, [facility]11/05/22 [facility] 2330[facility] hexafluorid [facility] microsphr (LUMASON) injection 5 mL 2021-11 17:15: 00 09-04 17:15 :00 No [id number] 5mL 5 mL, Intravenou s, ONCE, 1 dose, On Barbra 09/04/22 at 1215, Routine
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 [facility] empaglifloz in-metformi n (SYNJARDY) 12.5-1,000 mg Tab 2021-11 14:37: 28 Yes 2{tbl} Take 2 tablets by mouth 2 (two) times daily. [facility] spironolact one 25 mg tablet 2021-11 14:37: 28 Yes 25mg Take 25 mg by mouth 2 (two) times daily. [facility] omega-3-dha -epa-dpa-fi sh oil (OMEGA-3 2100) 1,050-1,200 mg Cap 2021-11 14:37: 28 Yes Take by mouth 2 (two) times daily. [facility] METOPROLOL SUCCINATE ORAL 2021-11 14:37: 28 Yes 50mg Take 50 mg by mouth 2 (two) times daily. [facility] atorvastati n 20 mg tablet 2021-11 14:37: 28 Yes 40mg Take 40 mg by mouth at bedtime. [facility] pantoprazol e 40 mg EC tablet 2021-11 14:37: 28 Yes 40mg Take 40 mg by mouth 2 (two) times daily. [facility] insulin regular, human (HUMULIN R U-500, CONC, INSULIN SC) 2021-11 14:37: 28 Yes 35U inject 35 Units under the skin 2 (two) times daily. [facility] tirzepatide 5 mg/0.5 mL subcutaneou s injection 2021-11 14:37: 28 Yes 5mg inject 5 mg under the skin weekly. [facility] SITagliptin (JANUVIA) tablet 50 mg 2021-11 14:00: 00 Yes 50mg 50 mg, Oral, DAILY, First dose on Thu09/04/22 at 0900, Until Discontinu ed, Routine [facility] insulin glargine,heydi m.rec.anlog (TOTRE SOLOSTAR U-300 INSULIN SC) 2021-11 13:06: 04 09-04 00:00 :00 No inject under the skin. [facility] apixaban (ELIQUIS) 5 mg tablet 2021-11 13:06: 04 09-04 00:00 :00 No 5mg Take 5 mg by mouth 2 (two) times daily. [facility] enoxaparin (LOVENOX) injection 40 mg 2021-11 05:45: 00 Yes 40mg 40 mg, Subcutaneo us, Q24H, First dose on Thu09/04/22 at 0045, Until Discontinu ed, Routine [facility] sennosides (SENOKOT) tablet 8.6 mg 2021-11 04:45: 00 Yes 8.6mg 8.6 mg, Oral, BID, First dose on Thu09/03/22 at 2345, Until Discontinu ed, Routine [facility] docusate (COLACE) capsule 100 mg 2022-1 0-06 04:45: 00 Yes 100mg 100 mg, Oral, BID, First dose on Thu09/03/22 at 2345, Until Discontinu ed, Routine [facility] aspirin chewable tablet 81 mg 2021-11 0-06 04:45: 00 Yes 81mg 81 mg, Oral, QAM WITH BREAKFAST, First dose on Thu09/03/22 at 2345, Until Discontinu ed, Routine [facility] sucralfate (CARAFATE) 100 mg/mL suspension 1,000 mg 2021-11 0 04:45: 00 Yes 1g 1,000 mg (1 g), Oral, AC+HS, First dose on Thu09/03/22 at 2345, Until Discontinu ed, Routine [facility] pantoprazol e (PROTONIX) injection 40 mg 2021-11 0 04:45: 00 Yes 40mg 40 mg, Slow IV Push, Q12H, First dose on Thu09/03/22 at 2345, Until Discontinu ed [facility] metoprolol tartrate (LOPRESSOR) tablet 50 mg 2021-11 0 04:45: 00 Yes 50mg 50 mg, Oral, BID, First dose on Thu09/03/22 at 2345, Until Discontinu ed, Routine [facility] insulin NPH and regular human 70-30 (70-30 U-100 INSULIN) 100 unit/mL (70-30) injection 35 Units 2021-11 0 04:45: 00 Yes 35U 35 Units, Subcutaneo us, BIDAC, First dose on Thu09/03/22 at 2345, Until Discontinu ed, Routine [facility] atorvastati n (LIPITOR) tablet 40 mg 2021-11 0 04:45: 00 Yes 40mg 40 mg, Oral, QHS, First dose on Thu09/03/22 at 2345, Until Discontinu ed, Routine [facility] furosemide (LASIX) injection 20 mg 2021-11 0-06 04:45: 00 09-04 13:50 :16 No 20mg 20 mg, IV Push, Q8H, First dose on Thu09/03/22 at 2345, Until Discontinu ed, [place] [facility] ondansetron (ZOFRAN (PF)) injection 4 mg 2021-11 0 04:33: 54 Yes 4mg 4 mg, Slow IV Push, Q6HPRN, Starting on Thu09/03/22 at 2333, Until Discontinu ed, Routine, Nausea and Vomiting (N/V) [facility] Sliding Scale Insulin - Lispro (HumaLOG) + Fsbg Testing 2021-11 0 04:30: 00 Yes Subcutaneo us, TID MEALS+HS, First dose on Thu09/03/22 at 2330, Until Discontinu ed, Routine [facility] nitroglycer in (NITROSTAT) sublingual tablet 0.4 mg 2021-11 22:30: 00 09-03 22:34 :00 No .4mg 0.4 mg, Sublingual , ONCE, 1 dose, On Thu09/03/22 at 1730, [place] [facility] magnesium oxide (MAG-OX 400) tablet 400 mg 04-24 01:00: 00 04-25 12:59 :00 No 400mg 400 mg, Oral, BID, 3 doses, First dose on Thu04/23/22 at 1999, Last dose on Thu04/24/22 at 1999, Routine [facility] maalox:diph enhydrAMINE :lidocaine 2 % viscous 1:1:1 ([facility]) oral suspension 15 mL 04-23 15:47: 15 Yes 15mL 15 mL, Oral, QDAILYPRN, Starting on Thu04/23/22 at 1047, Until Discontinu ed, Routine, indigestio n [facility] insulin glargine,heydi armas.rec.anlog (TOTRE SOLMIKEAR U-300 INSULIN SC) 04-23 15:15: 25 Yes inject under the skin. [facility] aspirin 81 mg chewable tablet 04-23 15:15: 25 Yes 81mg Take 81 mg by mouth daily. [facility] empaglifloz in-metformi n (SYNJARDY) 12.5-1,000 mg Tab 04-23 15:15: 25 Yes 2{tbl} Take 2 tablets by mouth 2 (two) times daily. [facility] apixaban (ELIQUIS) 5 mg tablet 04-23 15:15: 25 Yes 5mg Take 5 mg by mouth 2 (two) times daily. [facility] spironolact one 25 mg tablet 04-23 15:15: 25 Yes 25mg Take 25 mg by mouth 2 (two) times daily. [facility] KCL (KLOR-CON M20) tablet 40 mEq 04-23 14:15: 00 04-23 15:57 :00 No 40meq 40 mEq, Oral, ONCE, 1 dose, On Thu04/23/22 at 0915, Routine [facility] insulin glargine,heydi sandovalanlog (LANTUS SC) 04-23 10:54: 26 04-23 00:00 :00 No inject under the skin. [facility] sitagliptin phosphate (JANUVIA ORAL) 04-23 10:54: 04-23 00:00 :00 No Take by mouth. [facility] morpHINE (2 mg/mL) injection 2 mg 04-23 10:16: 57 Yes [id number] 2mg 2 mg, Slow IV Push, Q4HPRN, Starting on Thu04/23/22 at 0516, Until Discontinu ed, Routine, Pain (scale 7-10) [facility] Sliding Scale Insulin - Lispro (HumaLOG) + Fsbg Testing 04-23 03:00: 00 Yes Subcutaneo us, Q3H, First dose on Thu04/22/22 at 2200, Until Discontinu ed, Routine [facility] insulin glargine (LANTUS U-100) injection 25 Units 04-23 03:00: 00 Yes 25U 25 Units, Subcutaneo us, Q12H, First dose on Thu04/22/22 at 2200, Until Discontinu ed, Routine [facility] glucagon (GLUCAGEN DIAGNOSTIC KIT) injection 1 mg 04-23 02:55: 16 Yes 1mg 1 mg, Intramuscu lar, PRN, Starting on Thu04/22/22 at 2155, Until Discontinu ed, [place], Blood Glucose < or = 70 mg/dL and patient is unable to swallow or has mental changes. [facility] dextrose 50 % in water (D50W) injection 25 mL 04-23 02:55: 16 Yes 25mL 25 mL, Slow IV Push, PRN, Starting on Thu04/22/22 at 2155, Until Discontinu ed, [place], Blood Glucose < or = 70 mg/dL and patient is unable to swallow or has mental status changes. [facility] sucralfate 1 gram tablet 04-23 00:00: 00 05-24 04:59 :00 No [id number] 1g Take 1 tablet by mouth before meals and at bedtime for 30 days. [facility] pantoprazol e 40 mg EC tablet 04-23 00:00: 00 05-24 04:59 :00 No [id number] 40mg Take 1 tablet by mouth 2 (two) times daily for 30 days. [facility] metoprolol tartrate 50 mg tablet 04-23 00:00: 00 05-24 04:59 :00 No [id number] 50mg Take 1 tablet by mouth 2 (two) times daily for 30 days. [facility] atorvastati n (LIPITOR) 40 mg tablet 04-23 00:00: 00 05-24 04:59 :00 No [id number] 40mg Take 1 tablet by mouth at bedtime for 30 days. [facility] magnesium oxide 420 mg Tab 04-23 00:00: 00 05-09 04:59 :00 No [id number] 400mg Take 400 mg by mouth daily for 15 days. [facility] sucralfate (CARAFATE) tablet 1 g 04-22 21:30: 00 Yes 1g 1 g, Oral, AC+HS, First dose on Thu04/22/22 at 1630, Until Discontinu ed, Routine [facility] morpHINE (4 mg/mL) injection 2 mg 04-22 16:15: 00 04-22 15:15 :00 No [id number] 2mg 2 mg, Slow IV Push, ONCE, 1 dose, On Thu04/22/22 at 1115, Routine [facility] SITagliptin (JANUVIA) tablet 50 mg 04-22 14:00: 00 Yes 50mg 50 mg, Oral, DAILY, First dose on Thu04/22/22 at 0900, Until Discontinu ed [facility] aspirin chewable tablet 81 mg 04-22 14:00: 00 Yes 81mg 81 mg, Oral, DAILY, First dose on Thu04/22/22 at 0900, Until Discontinu ed, Routine [facility] metoprolol tartrate (LOPRESSOR) tablet 25 mg 04-22 13:00: 00 Yes 25mg 25 mg, Oral, BID, First dose on Thu04/22/22 at 0800, Until Discontinu ed, Routine [facility] apixaban (ELIQUIS) tablet 5 mg 04-22 13:00: 00 Yes 5mg 5 mg, Oral, BID, First dose on Thu04/22/22 at 0800, Until Discontinu ed, Routine
Indicatio ns: Non-Valvul ar Atrial Fibrillati on [facility] pantoprazol e (PROTONIX) EC tablet 40 mg 04-22 13:00: 00 Yes 40mg 40 mg, Oral, BID, First dose on Thu04/22/22 at 0800, Until Discontinu ed, Routine [facility] D5W 0.9% NaCl (NS) 1 L + KCL 40 mEq 04-22 13:00: 00 04-23 02:32 :18 No IV Infusion, at 200 mL/hr, CONTINUOUS , Starting on Thu04/22/22 at 0800, Until Thu04/22/22 at 2132, Routine [facility] ondansetron (ZOFRAN (PF)) injection 4 mg 04-22 12:18: 40 Yes 4mg 4 mg, Slow IV Push, Q6HPRN, Nausea and Vomiting (N/V), Starting on Thu04/22/22 at 0718
Do ses of ondansetro n 16 mg and above need to be administer ed via IV piggyback. For Dose >=24mg ECG monitoring is advisable.
[facility] atorvastati n (LIPITOR) tablet 40 mg 04-22 02:00: 00 Yes 40mg 40 mg, Oral, QHS, First dose on Thu04/21/22 at 2100, Until Discontinu ed, Routine [facility] pantoprazol e (PROTONIX) injection 40 mg 04-22 01:00: 00 04-22 00:00 :00 No [id number] 40mg 40 mg, Slow IV Push, ONCE, 1 dose, On Thu04/21/22 at 1999 [facility] NaCl 0.9% (NS) bolus infusion 2,000 mL 04-22 01:00: 00 04-21 23:59 :00 No [id number] 2000mL at 999 mL/hr, 2,000 mL, IV Infusion, ONCE, 1 dose, On Thu04/21/22 at 2000, [facility] ondansetron (ZOFRAN (PF)) injection 4 mg 04-22 00:30: 00 04-21 23:26 :00 No [id number] 4mg 4 mg, Slow IV Push, ONCE, 1 dose, On Thu04/21/22 at 1930, [facility] morpHINE (4 mg/mL) injection 4 mg 04-22 00:30: 00 04-21 23:26 :00 No [id number] 4mg 4 mg, Slow IV Push, ONCE, 1 dose, On Thu04/21/22 at 1930, STAT [facility] D5W 0.45% NaCl (1/2NS) IV infusion 1,000 mL 04-22 00:21: 22 04-22 11:50 :31 No [id number] 1000mL at 200 mL/hr, 1,000 mL, IV Infusion, PRN - SEE INSTRUCTBURT PALOMO, Starting on Thu04/21/22 at 1921, Until Thu04/22/22 at 0650, [place] [facility] iopamidol (ISOVUE 370-500 mL) injection 120 mL 04-21 22:15: 00 04-22 00:26 :00 No [id number] 120mL 120 mL, Intravenou s, ONCE, 1 dose, On Thu04/21/22 at 1715, Routine [facility] esomeprazol e magnesium (NEXIUM ORAL) 2020-11 14:20: 21 09-30 00:00 :00 No Take by mouth. [facility] insulin glargineheydirecPresleyanlog (LANTUS SC) 2020-11 13:40: 16 Yes inject under the skin. [facility] sitagliptin phosphate (JANUVIA ORAL) 2020-11 13:40: 16 Yes Take by mouth. [facility] aspirin 81 mg chewable tablet 2020-11 13:40: 16 Yes 81mg Take 81 mg by mouth daily. [facility] pantoprazol e 40 mg EC tablet 2020-11 00:00: 00 Yes [id number] 40mg Take 1 tablet by mouth 2 (two) times daily. [facility] sucralfate 1 gram tablet 07-02 00:00: 00 Yes [id number] 1g Take 1 tablet by mouth before meals and at bedtime. [facility] ondansetron (ZOFRAN ODT) 4 mg disintegrat ing tablet 07-02 00:00: 00 Yes [id number] 4mg Take 1 tablet by mouth every 8 (eight) hours as needed for Nausea and Vomiting (N/V). [facility] Immunizations Ordered Immunization Name Filled Immunization Name Date Status Comments Source Tdap- (Boostrix, Adacel) 2023-04-02 00:00:00 Completed Maisha Seybold - External Pneumococcal Conjugate 15 (Vaxneuvance) 2023-04-02 00:00:00 Completed Maisha Seybold - External Hepatitis B- 2 Dose (HEPLISAV B) 2023-04-02 00:00:00 Completed Maisha ybold - External Tdap- (Boostrix, Adacel) 2023-04-02 00:00:00 Completed Maisha Seybold - External Pneumococcal Conjugate 15 (Vaxneuvance) 2023-04-02 00:00:00 Completed Maisha Seybold - External Hepatitis B- 2 Dose (HEPLISAV B) 2023-04-02 00:00:00 Completed Maisha Seybold - External Tdap- (Boostrix, Adacel) 2023-04-02 00:00:00 Completed Maisha Seybold - External Pneumococcal Conjugate 15 (Vaxneuvance) 2023-04-02 00:00:00 Completed Maisha Seybold - External Hepatitis B- 2 Dose (HEPLISAV B) 2023-04-02 00:00:00 Completed Maisha ybold - External SARS-COV-2 COVID-19 VACCINE - (MODERNA) Unknown Completed [facility] TDAP Unknown Completed [facility] Pneumococcal 15 Conjugate, PCV15 (Vaxneuvance) Unknown Completed [facility] HEP B, Adult Dosage Unknown Completed [facility] SARS-COV-2 COVID-19 VACCINE - (MODERNA) Unknown Completed [facility] TDAP Unknown Completed [facility] Pneumococcal 15 Conjugate, PCV15 (Vaxneuvance) Unknown Completed [facility] HEP B, Adult Dosage Unknown Completed [facility] Vital Signs Vital Name Observation Time Observation Value Comments S ource Systolic blood pressure 2024-02-27 21:17:00 126 mm[Hg] [place] o [facility] Diastolic blood pressure 2024-02-27 21:17:00 70 mm[Hg] [place] [facility] Heart rate 2024-02-27 21:17:00 97 /min [facility] Body temperature 2024-02-27 21:17:00 36.39 Chen [facility] Respiratory rate 2024-02-27 21:17:00 16 /min [facility] Oxygen saturation in Arterial blood by Pulse oximetry 2024-02-27 21:17:00 95 /min [place] o f [facility] Body weight 2024-02-27 08:11:00 119.704 kg [facility] BMI 2024-02-27 08:11:00 41.33 kg/m2 [facility] Body height 2024-02-24 17:44:00 170.2 cm [facility] Systolic blood pressure 2023-04-17 13:42:00 124 [...] blood pressure 2023-04-02 13:42:00 128 mm[Hg] Maisha Gambinoo ld - External Diastolic blood pressure 2023-04-02 13:42:00 72 mm[Hg] Maisha Gambinoo ld - External Heart rate 2023-04-02 13:42:00 82 /min Tamara y Seybcarole - External Body temperature 2023-04-02 13:42:00 36.44 Chen Maisha Gambinoold - External Respiratory rate 2023-04-02 13:42:00 18 /min Maisha Gambinoold - External Body height 2023-04-02 13:42:00 170.2 cm Maeve pedersen Seybcarole - External Body weight 2023-04-02 13:42:00 127.914 kg Maeve pedersen Seybold - External BMI 2023-04-02 13:42:00 44.17 kg/m2 Maeve pedersen Seybold - External Body temperature 2022-11-12 18:00:00 37 Chen [facility] Systolic blood pressure 2022-11-12 17:00:00 113 mm[Hg] [facility] Diastolic blood pressure 2022-11-12 17:00:00 67 mm[Hg] [facility] Heart rate 2022-11-12 17:00:00 91 /min [facility] 2022-11-12 17:00:00 25 /min [facility] Oxygen saturation in Arterial blood by Pulse oximetry 2022-11-12 17:00:00 93 /min [facility] Body weight 2022-11-12 09:42:00 117.981 kg [facility] BMI 2022-11-12 09:42:00 40.74 kg/m2 [facility] Body height 2022-11-10 06:00:00 170.2 cm [facility] Systolic blood pressure 2022-11-07 17:53:00 106 mm[Hg] [facility] Diastolic blood pressure 2022-11-07 17:53:00 70 mm[Hg] [facility] Heart rate 2022-11-07 17:53:00 102 /min [facility] Body temperature 2022-11-07 17:53:00 37.22 Chen [facility] Respiratory rate 2022-11-07 17:53:00 22 /min [facility] Oxygen saturation in Arterial blood by Pulse oximetry 2022-11-07 17:53:00 95 /min [facility] Body height 2022-11-06 11:30:00 170.2 cm [facility] Body weight 2022-11-06 11:30:00 116.5 kg [facility] BMI 2022-11-06 11:30:00 40.23 kg/m2 [facility] Systolic blood pressure 2022-09-04 17:00:00 129 mm[Hg] [facility] Diastolic blood pressure 2022-09-04 17:00:00 84 mm[Hg] [facility] Heart rate 2022-09-04 17:00:00 85 /min [facility] Oxygen saturation in Arterial blood by Pulse oximetry 2022-09-04 17:00:00 94 /min [facility] Body temperature 2022-09-04 16:21:00 36.33 Chen [facility] Respiratory rate 2022-09-04 16:21:00 18 /min [facility] Body height 2022-09-03 22:04:00 170.2 cm [facility] Body weight 2022-09-03 22:04:00 122.834 kg [facility] BMI 2022-09-03 22:04:00 42.41 kg/m2 [facility] Systolic blood pressure 2022-04-23 18:00:00 109 mm[Hg] [facility] Diastolic blood pressure 2022-04-23 18:00:00 56 mm[Hg] [facility] Heart rate 2022-04-23 18:00:00 85 /min [facility] Respiratory rate 2022-04-23 18:00:00 20 /min [facility] Oxygen saturation in Arterial blood by Pulse oximetry 2022-04-23 17:00:00 97 /min [facility] Body temperature 2022-04-23 16:30:00 36.72 Chen [facility] Body height 2022-04-21 22:46:00 170.2 cm [facility] Body weight 2022-04-21 22:46:00 113.399 kg [facility] BMI 2022-04-21 22:46:00 39.16 kg/m2 [facility] Systolic blood pressure 2021-09-30 18:36:00 125 mm[Hg] [facility] Diastolic blood pressure 2021-09-30 18:36:00 81 mm[Hg] [facility] Heart rate 2021-09-30 18:36:00 120 /min [facility] Body temperature 2021-09-30 18:36:00 36.61 Chen [facility] Body height 2021-09-30 18:36:00 170.2 cm [facility] Body weight 2021-09-30 18:36:00 99.066 kg [facility] BMI 2021-09-30 18:36:00 34.21 kg/m2 [facility] Oxygen saturation in Arterial blood by Pulse oximetry 2021-09-30 18:36:00 93 /min [facility] Procedures Procedure Date / Time Performed Performing Clinician Source POCT GLUCOSE (AUTOMATED) 2024-02-27 21:18:[address] [facility] POCT GLUCOSE (AUTOMATED) 2024-02-27 16:59:[address] [facility] POCT GLUCOSE (AUTOMATED) 2024-02-27 12:24:00 [facility] MAGNESIUM 2024-02-27 09:34:00 Ludwin La [facility] BASIC METABOLIC PANEL (NA, K, CL, CO2, GLUCOSE, BUN, CREATININE, CA) 2024-02-27 09:34:00 Ludwin La [facility] CBC WITH DIFF 2024-02-27 09:34:[address] [facility] POCT GLUCOSE (AUTOMATED) 2024-02-27 02:45:00 [facility] 2024-02-26 21:32:00 [facility]) 2024-02-26 17:05:00 [facility] ([facility]ATED) 2024-02-26 12:32:00 Kvng Mcallister [facility] MAGNESIUM 2024-02-26 08:40:00 Ludwin La [facility] BASIC METABOLIC PANEL (NA, K, CL, CO2, GLUCOSE, BUN, CREATININE, CA) 2024-02-26 08:40:00 Ludwin La [facility] CBC WITH DIFF 2024-02-26 08:40:[address] [facility] POCT GLUCOSE (AUTOMATED) 2024-02-26 01:14:00 [facility]) 2024-02-25 21:08:[address] [facility] POCT GLUCOSE (AUTOMATED) 2024-02-25 16:24:[address] [facility] POCT GLUCOSE (AUTOMATED) 2024-02-25 14:10:[address] [facility] POCT GLUCOSE (AUTOMATED) 2024-02-25 13:01:00 Kvng Mcallister [facility] BASIC METABOLIC PANEL (NA, K, CL, CO2, GLUCOSE, BUN, CREATININE, CA) 2024-02-25 10:13:00 Marlene Swartz [facility] CBC WITH DIFF 2024-02-25 10:13:00 Marlene Swartz [facility] POCT GLUCOSE (AUTOMATED) 2024-02-25 01:29:00 [facility] ([facility]) 2024-02-24 21:31:[address] [facility] POCT GLUCOSE (AUTOMATED) 2024-02-24 17:59:[address] [facility] LACTIC ACID WHOLE BLOOD 2024-02-24 15:22:00 Tomas Mcallister [facility] URINALYSIS 2024-02-24 09:46:00 [facility] ABDOMEN PELVIS W CONTRAST 2024-02-24 08:44:48 Jody Cruz [facility] HB ECG ROUTINE & RHYTHM STRIP 2024-02-24 07:34:15 [facility] + LACTIC ACID 2024-02-24 07:26:00 [facility] 1 VW 2024-02-24 06:22:43 Anthony [facility] LIPASE 2024-02-24 06:20:00 Jody Cruz [facility] MAGNESIUM 2024-02-24 06:20:00 Anthony [facility] TROPONIN I 2024-02-24 06:20:00 Anthony [facility] COMP. METABOLIC PANEL ([id number]) 2024-02-24 06:20:00 Anthony [facility] CBC WITH DIFF 2024-02-24 06:20:00 Anthony [facility] GLYCOSYLATED HEMOGLOBIN (A1C) 2024-02-24 06:20:00 Reece Flores [facility] RAPID INFLUENZA A/B 2024-02-24 06:20:00 Ba Cruz [facility] N-TERMINAL PRO-BNP 2024-02-24 06:20:00 Anthony [facility] COVID-19 (ID NOW RAPID TESTING) 2024-02-24 06:20:00 Anthony [facility] LAB ONLY COVID INTERPRETATION 2024-02-24 06:20:00 Anthony [facility] POCT GLUCOSE (AUTOMATED) 2024-02-24 06:09:00 Anthony [facility] [id number] 2023-11-10 00:00:00 [facility] REAGENT STRIP/BLOOD GLUCOSE 2023-04-17 00:00:00 Outside, Reported Maisha Moy - External TELERETINAL DIABETIC SCREENING 2023-04-02 15:16:00 John Beckford - External POCT GLUCOSE (AUTOMATED) 2022-11-12 17:08:00 Cole Love [facility] POCT GLUCOSE (AUTOMATED) 2022-11-12 13:30:00 Cole Love [facility] FERRITIN SERUM 2022-11-12 09:53:00 Kate [facility] HEPATIC FUNCTION PANEL ([id number]) (ALB,T.PRO,BILI T,BU/BC,ALT,AST,ALK PHOS) 2022-11-12 09:53:00 [facility] (NA, K, CL, CO2, GLUCOSE, BUN, CREATININE, CA) 2022-11-12 09:53:00 Kate [facility] POCT GLUCOSE (AUTOMATED) 2022-11-12 02:07:00 Cole Love zeus [facility] POCT GLUCOSE (AUTOMATED) 2022-11-11 21:59:00 Cole Love zeus [facility] POCT GLUCOSE (AUTOMATED) 2022-11-11 17:08:00 Cole Love zeus [facility] POCT GLUCOSE (AUTOMATED) 2022-11-11 13:19:00 Cole Love zeus [facility] MAGNESIUM 2022-11-11 10:21:00 [facility] ([id number]) (ALB,T.PRO,BILI T,BU/BC,ALT,AST,ALK PHOS) 2022-11-11 10:21:00 Cholo Love [facility] BASIC METABOLIC PANEL (NA, K, CL, CO2, GLUCOSE, BUN, CREATININE, CA) 2022-11-11 10:21:00 Natasha [facility] CBC WITH DIFF 2022-11-11 10:21:00 Natasha [facility] POCT GLUCOSE (AUTOMATED) 2022-11-11 02:37:00 Cole Love zeus [facility] POCT GLUCOSE (AUTOMATED) 2022-11-10 22:18:00 [place], J [facility] US ABDOMEN LIMITED 2022-11-10 21:00:00 Kate [facility] HEPATITIS B SURFACE ANTIBODY 2022-11-10 19:01:00 Kate [facility] HEPATITIS B SURFACE ANTIGEN 2022-11-10 19:01:00 Kate [facility] HCV ANTIBODY 2022-11-10 19:01:00 Kate [facility] HEPATITIS A VIRUS ANTIBODY IGM 2022-11-10 19:01:00 Kate [facility] POCT GLUCOSE (AUTOMATED) 2022-11-10 17:06:00 Natasha [facility] MAGNESIUM 2022-11-10 15:00:00 Kate [facility] COMP. METABOLIC PANEL ([id number]) 2022-11-10 15:00:00 Kate [facility] POCT GLUCOSE (AUTOMATED) 2022-11-10 13:14:00 Natasha [facility] URINALYSIS 2022-11-10 03:56:00 Murali Zafar [facility] URINE CULTURE 2022-11-10 03:56:00 Murali Zafar [facility] AC PANEL 20 + LACTIC ACID 2022-11-10 03:47:00 Murali Zafar [facility] LIPASE 2022-11-10 03:46:00 [facility]af[facility] TROPONIN I 2022-11-10 03:46:00 [facility]urali [facility]afar [facility] COMP. METABOLIC PANEL ([id number]) 2022-11-10 03:46:00 [facility]FF 2022-11-10 03:46:00 Murali Zafar [facility] N-TERMINAL PRO-BNP 2022-11-10 03:46:00 [facility] ECG ROUTINE & RHYTHM STRIP 2022-11-10 03:16:17 Murali Zafar [facility] POCT GLUCOSE (AUTOMATED) 2022-11-10 03:09:00 Kvng Zafar [facility] POCT GLUCOSE (AUTOMATED) 2022-11-10 02:59:00 [facility] CONSENT/REFUSAL FOR DIAGNOSIS AND TREATMENT 2022-11-10 02:39:20 Doctor Unassigned, [employer] [facility] POCT GLUCOSE (AUTOMATED) 2022-11-07 22:01:00 Yarely Cade [facility] POCT GLUCOSE (AUTOMATED) 2022-11-07 17:28:00 Yarely Cade [facility] POCT GLUCOSE (AUTOMATED) 2022-11-07 14:16:00 Yarely Cade [facility] PHOSPHORUS 2022-11-07 11:33:[address] [facility] BETA HYDROXY-BUTYRATE 2022-11-07 11:33:00 Zeyad Leal [facility] BASIC METABOLIC PANEL (NA, K, CL, CO2, GLUCOSE, BUN, CREATININE, CA) 2022-11-07 11:33:00 Dar Leal [facility] POCT GLUCOSE (AUTOMATED) 2022-11-07 03:32:00 Yarely Cade [facility] POCT GLUCOSE (AUTOMATED) 2022-11-06 22:56:00 Abby Palomino [facility] BETA HYDROXY-BUTYRATE 2022-11-06 20:25:00 [facility] BASIC METABOLIC PANEL (NA, K, CL, CO2, GLUCOSE, BUN, CREATININE, CA) 2022-11-06 20:25:00 Ankur Kell [facility] POCT GLUCOSE (AUTOMATED) 2022-11-06 16:15:00 Abby Palomino [facility] BASIC METABOLIC PANEL (NA, K, CL, CO2, GLUCOSE, BUN, CREATININE, CA) 2022-11-06 11:53:00 Ankur Kell [facility] MRSA / MSSA SCREEN BY VIMAL ROBERT 2022-11-06 11:53:00 Ankur Kell [facility] POCT GLUCOSE (AUTOMATED) 2022-11-06 11:26:00 Abby Palomino [facility] POCT GLUCOSE (AUTOMATED) 2022-11-06 09:26:00 Kvng Zafar [facility] POCT GLUCOSE(AGE >30DAYS) 2022-11-06 08:15:00 Murali Zafar [facility] PHOSPHORUS 2022-11-06 07:25:00 Murali Zafar [facility] MAGNESIUM 2022-11-06 07:25:00 [facility] OSMOLALITY, SERUM OR PLASMA 2022-11-06 07:25:00 Murali Zafar [facility] BETA HYDROXY-BUTYRATE 2022-11-06 07:25:00 Leif Zaafr [facility] BASIC METABOLIC PANEL (NA, K, CL, CO2, GLUCOSE, BUN, CREATININE, CA) 2022-11-06 07:25:00 Murali Zafar [facility] LIPID PANEL ([id number])(TOTAL CHOLESTEROL, TRIGLYCERIDES, HDL) 2022-11-06 07:25:00 Monae Pascual [facility] GLYCOSYLATED HEMOGLOBIN (A1C) 2022-11-06 07:25:00 Murali Zafar [facility] POCT GLUCOSE(AGE >30DAYS) 2022-11-06 06:58:00 Murali Zafar [facility] POCT GLUCOSE (AUTOMATED) 2022-11-06 06:55:00 Kvng Zafar [facility] CRITICAL CARE 2022-11-06 06:50:18 Murali Zafar [facility] AC PANEL 20 + LACTIC ACID 2022-11-06 06:14:00 Murali Zafar [facility] CT ABDOMEN PELVIS W CONTRAST 2022-11-06 06:05:19 Murali Zafar [facility] CT CHEST PULMONARY ANGIOGRAM 2022-11-06 06:05:19 Murali Zafar [facility] BLOOD CULTURE SCREEN 2022-11-06 04:51:00 Juan Zafar [facility] LACTIC ACID WHOLE BLOOD 2022-11-06 04:50:00 Do araceli Zafar [facility] XR CHEST 1 VW 2022-11-06 04:21:53 Murali Zafar [facility] LIPASE 2022-11-06 04:08:00 [facility]urali [facility]afar [facility] TROPONIN I 2022-11-06 04:08:00 Murali Zafar [facility] COMP. METABOLIC PANEL ([id number]) 2022-11-06 04:08:00 Murali Zafar [facility] CBC WITH DIFF 2022-11-06 04:08:00 Murali Zafar [facility] URINALYSIS 2022-11-06 04:08:00 Murali Zafar [facility] URINE CULTURE 2022-11-06 04:08:00 Murali Zafar [facility] RAPID INFLUENZA A/B 2022-11-06 04:08:00 Emma Zafra [facility] N-TERMINAL PRO-BNP 2022-11-06 04:08:00 Murali Zafar [facility] COVID-19 (ID NOW RAPID TESTING) 2022-11-06 04:08:00 Murali Zafar [facility] LAB ONLY COVID INTERPRETATION 2022-11-06 04:08:00 Murali Zafar [facility] CONSENT/REFUSAL FOR DIAGNOSIS AND TREATMENT 2022-11-06 03:03:01 Doctor Unassigned, [employer] [facility] HOSPITAL ADMISSION 2022-11-05 06:01:00 Doctor Un assigned, [employer] [facility] POCT GLUCOSE (AUTOMATED) 2022-09-04 16:52:00 Kvng Mcallister [facility] US GALL BLADDER 2022-09-04 15:00:00 Jaxon Thomas [facility] POCT GLUCOSE (AUTOMATED) 2022-09-04 12:51:00 Kvng Mcallister [facility] TROPONIN I 2022-09-04 11:06:00 Jaxon Thomas [facility] COMP. METABOLIC PANEL ([id number]) 2022-09-04 11:06:00 Jaxon Thomas [facility] ACUTE CARE VENOUS BLOOD GAS 2022-09-04 11:06:00 Jaxon Thomas [facility] CBC WITH DIFF 2022-09-04 11:06:00 Jaxon Thomas [facility] N-TERMINAL PRO-BNP 2022-09-04 11:06:00 Lesley, [facility] PHOSPHORUS 2022-09-04 05:55:00 Lesley [facility] URIC ACID 2022-09-04 05:55:[address] [facility] MAGNESIUM 2022-09-04 05:55:00 Lesley [facility] TROPONIN I 2022-09-04 05:55:00 Lesley [facility] THYROID STIMULATING HORMONE 2022-09-04 05:55:00 Lesley [facility] LIPID PANEL ([id number])(TOTAL CHOLESTEROL, TRIGLYCERIDES, HDL) 2022-09-04 05:55:00 Lesley [facility] SEDIMENTATION RATE 2022-09-04 05:55:00 Lesley [facility] PROTHROMBIN TIME / INR 2022-09-04 05:55:00 Lesley [facility] HEPATITIS B SURFACE ANTIBODY 2022-09-04 05:55:00 Lesley [facility] HEPATITIS B SURFACE ANTIGEN 2022-09-04 05:55:00 Lesley [facility] HCV ANTIBODY 2022-09-04 05:55:00 Lesley [facility] HAV ANTIBODY (IGG AND IGM) 2022-09-04 05:55:00 Lesley [facility] PROCALCITONIN 2022-09-04 05:55:00 Lesley [facility]ristin [facility] POCT GLUCOSE (AUTOMATED) 2022-09-04 05:31:[address] [facility] XR CHEST 1 VW 2022-09-03 22:42:00 Murali Zafar [facility] LIPASE 2022-09-03 22:26:00 Murali Zafar [facility] TROPONIN I 2022-09-03 22:26:00 Murali Zafar [facility] COMP. METABOLIC PANEL ([id number]) 2022-09-03 22:26:00 Murali Zafar [facility] CBC WITH DIFF 2022-09-03 22:26:00 Murali Zafar [facility] GLYCOSYLATED HEMOGLOBIN (A1C) 2022-09-03 22:26:00 Jaxon Thomas [facility] ACTIVATED PARTIAL THRMPLAS KAR 2022-09-03 22:26:00 Murali Zafar [facility] N-TERMINAL PRO-BNP 2022-09-03 22:26:00 Murali Zafar [facility] NOTICE OF PRIVACY PRACTICES 2022-09-03 21:52:55 Doctor Unassigned, [employer] CONSENT/REFUSAL FOR DIAGNOSIS AND TREATMENT 2022-09-03 21:52:24 Doctor Unassigned, [employer] POCT GLUCOSE (AUTOMATED) 2022-04-23 18:58:00 Cole Love [facility] POCT GLUCOSE (AUTOMATED) 2022-04-23 15:35:00 Cole Love [facility] POCT GLUCOSE (AUTOMATED) 2022-04-23 12:41:00 Cole Love [facility] POCT GLUCOSE (AUTOMATED) 2022-04-23 11:33:00 Cole Love [facility] MAGNESIUM 2022-04-23 09:33:00 Sachin Mcallister [facility] BASIC METABOLIC PANEL (NA, K, CL, CO2, GLUCOSE, BUN, CREATININE, CA) 2022-04-23 09:33:00 Sachin Mcallister [facility] POCT GLUCOSE (AUTOMATED) 2022-04-23 09:33:00 Cole Love [facility] POCT GLUCOSE (AUTOMATED) 2022-04-23 07:17:00 Cole Love [facility] POCT GLUCOSE (AUTOMATED) 2022-04-23 05:25:00 Cole Love [facility] POCT GLUCOSE (AUTOMATED) 2022-04-23 04:07:00 Cole Love [facility] POCT GLUCOSE (AUTOMATED) 2022-04-23 03:09:00 Cole Love [facility] POCT GLUCOSE (AUTOMATED) 2022-04-23 02:22:00 Cole Love [facility] BASIC METABOLIC PANEL (NA, K, CL, CO2, GLUCOSE, BUN, CREATININE, CA) 2022-04-23 01:15:00 Annette Holland [facility] POCT GLUCOSE (AUTOMATED) 2022-04-23 01:15:00 Cole Love [facility] POCT GLUCOSE (AUTOMATED) 2022-04-23 00:02:00 Cole Love [facility] POCT GLUCOSE (AUTOMATED) 2022-04-22 23:01:00 Kvng Mcallister [facility] POCT GLUCOSE (AUTOMATED) 2022-04-22 22:05:00 Kvng Mcallister [facility] BASIC METABOLIC PANEL (NA, K, CL, CO2, GLUCOSE, BUN, CREATININE, CA) 2022-04-22 21:05:00 Annette Holland [facility] POCT GLUCOSE (AUTOMATED) 2022-04-22 21:02:00 Kvng Mcallister [facility] POCT GLUCOSE (AUTOMATED) 2022-04-22 19:45:00 [facility] POCT GLUCOSE (AUTOMATED) 2022-04-22 18:42:00 [facility] POCT GLUCOSE (AUTOMATED) 2022-04-22 17:22:00 Cole Love [facility] POCT GLUCOSE (AUTOMATED) 2022-04-22 16:05:00 Cole Love [facility] TROPONIN I 2022-04-22 15:33:00 [facility] BASIC METABOLIC PANEL (NA, K, CL, CO2, GLUCOSE, BUN, CREATININE, CA) 2022-04-22 15:33:00 Annette Holland [facility] CBC WITH DIFF 2022-04-22 15:33:00 Cholo Love [facility] POCT GLUCOSE (AUTOMATED) 2022-04-22 14:25:00 Cole Love [facility] POCT GLUCOSE (AUTOMATED) 2022-04-22 13:39:00 Cole Love [facility] POCT GLUCOSE (AUTOMATED) 2022-04-22 12:26:00 Cole Love [facility] POCT GLUCOSE (AUTOMATED) 2022-04-22 11:30:00 Cole Love [facility] BASIC METABOLIC PANEL (NA, K, CL, CO2, GLUCOSE, BUN, CREATININE, CA) 2022-04-22 10:51:00 Annette Holland [facility] POCT GLUCOSE (AUTOMATED) 2022-04-22 10:47:00 Cole Love [facility] POCT GLUCOSE (AUTOMATED) 2022-04-22 10:44:00 Cole Love [facility] POCT GLUCOSE (AUTOMATED) 2022-04-22 09:32:00 Cole Love [facility] POCT GLUCOSE (AUTOMATED) 2022-04-22 08:34:00 Cole Love [facility] BASIC METABOLIC PANEL (NA, K, CL, CO2, GLUCOSE, BUN, CREATININE, CA) 2022-04-22 07:39:00 Annette Holland [facility] POCT GLUCOSE (AUTOMATED) 2022-04-22 07:33:00 Cole Love [facility] POCT GLUCOSE (AUTOMATED) 2022-04-22 06:29:00 Cole Love [facility] BASIC METABOLIC PANEL (NA, K, CL, CO2, GLUCOSE, BUN, CREATININE, CA) 2022-04-22 05:30:00 Annette Holland [facility] POCT GLUCOSE (AUTOMATED) 2022-04-22 05:29:00 Cole Love [facility] POCT GLUCOSE (AUTOMATED) 2022-04-22 04:32:00 Cole Love [facility] POCT GLUCOSE (AUTOMATED) 2022-04-22 03:40:00 Cole Love [facility] MRSA / MSSA SCREEN BY VIMAL ROBERT 2022-04-22 03:30:00 Cholo Love [facility] LACTIC ACID WHOLE BLOOD 2022-04-22 03:09:00 Alexandru Love [facility] POCT GLUCOSE (AUTOMATED) 2022-04-22 02:14:00 [facility] [place] COVID-19 (ID NOW RAPID TESTING) 2022-04-22 01:25:00 [facility] LAB ONLY COVID INTERPRETATION 2022-04-22 01:25:00 [facility] URINALYSIS 2022-04-22 01:23:00 [facility]ABOLIC PANEL (NA, K, CL, CO2, GLUCOSE, BUN, CREATININE, CA) 2022-04-22 01:14:00 [facility], SERUM OR PLASMA 2022-04-22 01:11:00 [facility] BETA HYDROXY-BUTYRATE 2022-04-22 01:11:00 [facility] [place] [facility] GLUCOSE (AUTOMATED) 2022-04-22 01:08:00 Cole Love [facility] CT ABDOMEN PELVIS W CONTRAST 2022-04-22 00:25:33 [facility] XR CHEST 1 VW 2022-04-22 00:18:00 Annette Holland [facility] AC PANEL 21 + LACTIC ACID 2022-04-22 00:04:00 [facility] URINALYSIS 2022-04-21 23:11:00 [facility] PHOSPHORUS 2022-04-21 23:05:00 [facility] LIPASE 2022-04-21 23:05:00 [facility] MAGNESIUM 2022-04-21 23:05:00 [facility] TROPONIN I 2022-04-21 23:05:00 [facility] COMP. METABOLIC PANEL (48588) 2022-04-21 23:05:00 [facility] CBC WITH DIFF 2022-04-21 23:05:00 Annette Holland [facility] GLYCOSYLATED HEMOGLOBIN (A1C) 2022-04-21 23:05:00 [facility] PROTHROMBIN TIME / INR 2022-04-21 23:05:00 Haylee Holland [facility] N-TERMINAL PRO-BNP 2022-04-21 23:05:00 Nelly Holland [facility] HB ECG ROUTINE & RHYTHM STRIP 2022-04-21 22:57:52 Annette Holland [facility] CONSENT/REFUSAL FOR DIAGNOSIS AND TREATMENT 2022-04-21 22:36:06 Doctor Unassigned, [place] [facility] NOTICE OF PRIVACY PRACTICES 2022-04-21 22:34:32 Doctor Unassigned, [place] [facility] Encounters Start Date/Time End Date/Time Encounter Type Admission Type Attending [facility] Facility Care Department Encounter ID Source 2024-08-17 00:00:00 2024-08-17 00:00:00 Outpatient JOHN BECKFORD [id number] [facility] 2024-07-21 00:00:00 2024-07-21 00:00:00 Outpatient MAISHA EVANS [id number] [facility] 2024-06-11 00:00:00 2024-06-11 00:00:00 Outpatient MAISHA EVANS [id number] [facility] 2024-05-20 00:00:00 2024-05-20 00:00:00 Outpatient WENDY MORENO [id number] [facility] 2024-03-29 00:00:00 2024-03-29 00:00:00 Outpatient WENDY MORENO [id number] [facility] 2024-03-26 00:00:00 2024-03-26 00:00:00 Outpatient WENDY MORENO [id number] [facility] 2024-03-14 00:00:00 2024-03-14 00:00:00 Outpatient MAISHA EVANS [id number] [facility] 2024-03-11 00:00:00 2024-03-11 00:00:00 Outpatient MAISHA EVANS [id number] [facility] 2024-03-10 00:00:00 2024-03-10 00:00:00 Outpatient MAISHA EVANS [id number] [facility] 2024-03-09 00:00:00 2024-03-09 00:00:00 Outpatient [facility] [id number] [facility] 2024-03-03 00:00:00 2024-03-03 00:00:00 Outpatient MAISHA EVANS [id number] [facility] 2024-03-03 00:00:00 2024-03-03 00:00:00 Outpatient MAISHA EVANS [id number] [facility] 2024-02-29 00:00:00 2024-02-29 00:00:00 Outpatient [facility] EVANS [id number] [facility] 2024-02-29 00:00:00 2024-02-29 00:00:00 Transition of Care Florence Downs 1..840.114 350.1.13.10 4.2.7.2.686 [id number] [facility] 2024-02-24 01:01:00 2024-02-27 17:45:00 Inpatient SACHIN YOUNGER [facility] [id number] [facility] 2024-02-24 01:01:00 2024-02-27 17:45:00 Hospital Encounter Jody Cruz, Sachin George [facility] ..840.114 350.1.13.10 4.2.7.2.686 [id number] [facility] 2024-02-26 00:00:00 2024-02-26 00:00:00 Outpatient MAISHA EVANS [id number] [facility] 2024-01-20 13:37:45 2024-01-20 13:37:45 Outpatient [facility] [id number] Ron Alejandre 2023-11-18 09:30:00 2023-11-18 09:30:00 Outpatient WENDY MORENO [id number] [facility] 2023-11-10 10:33:00 2023-11-17 19:30:[address] [facility] INTE.02 [id number] [facility] 2023-11-11 09:56:00 2023-11-11 09:56:00 Outpatient Jeremias Ibarra [facility] LABO [id number] [facility] 2023-11-11 00:00:00 2023-11-11 00:00:00 Outpatient MAISHA EVANS [id number] [facility] 2023-11-10 15:15:00 2023-11-10 15:15:00 Outpatient WENDY MORENO [id number] [facility] 2023-11-06 00:00:00 2023-11-06 00:00:00 Outpatient MAISHA EVANS [id number] [facility] 2023-10-27 00:00:00 2023-10-27 00:00:00 Outpatient MAISHA EVANS [id number] [facility] 2023-09-24 00:00:00 2023-09-24 00:00:00 Outpatient JOHN BECKFORD [id number] [facility] 2023-08-07 15:15:00 2023-08-07 15:15:00 Outpatient WENDY MORENO [id number] [facility] 2023-07-31 16:45:00 2023-07-31 16:45:00 Outpatient WENDY MORENO [id number] [facility] 2023-06-26 14:40:00 2023-06-26 14:40:00 Outpatient LYUBOV FERNÁNDEZ [id number] [facility] 2023-05-14 00:00:00 2023-05-14 00:00:00 Outpatient MD MAISHA MEADE [id number] [facility] 2023-04-23 16:00:00 2023-04-23 16:00:00 Outpatient ROHINI CHAMBERS [id number] [facility] 2023-04-23 13:30:00 2023-04-23 13:30:00 [facility] [id number] [facility]23-[facility]-21 08:00:00 2023-04-21 08:00:00 Outpatient HUNDL, MARCELLE MAISHA EVANS [id number] [facility] 2023-04-17 09:15:00 2023-04-17 09:15:00 Outpatient JOSH WENDY MAISHA EVANS [id number] [facility] 2023-04-16 00:00:00 2023-04-16 00:00:00 Outpatient MD MAISHA MEADE [id number] [facility] 2023-04-14 00:00:00 2023-04-14 00:00:00 Outpatient HUNDL, MARCELLE EVANS [id number] [facility] 2023-04-10 00:00:00 2023-04-10 00:00:00 Outpatient HUNDL, MARCELLE EVANS [id number] [facility] 2023-04-09 00:00:00 2023-04-09 00:00:00 Outpatient HUNDL, MARCELLE EVANS [id number] [facility] 2023-04-08 08:00:00 2023-04-08 08:00:00 Outpatient HUNDL, MARCELLE EVANS [id number] [facility] 2023-04-08 00:00:00 2023-04-08 00:00:00 Outpatient GROUP, MAISHA EVANS [id number] Maisha [facility] 2023-04-08 00:00:00 2023-04-08 00:00:00 Outpatient JOSH WENDY MAISHA EVANS [id number] [facility] 2023-04-08 00:00:00 2023-04-08 00:00:00 Outpatient RADHA GAMINO [id number] [facility] 2023-04-07 00:00:00 2023-04-07 00:00:00 Outpatient JOHN BECKFORD [id number] [facility] 2023-04-02 10:20:00 2023-04-02 10:20:00 Outpatient LABAkil EVANS [id number] [facility]isha Sey[facility] 2023-04-02 09:00:00 2023-04-02 09:00:00 Outpatient JOHN BECKFORD MAISHA [id number] [facility] 2023-04-02 00:00:00 2023-04-02 00:00:00 Outpatient AKBAR JEREZ MAISHA [id number] [facility]isha [facility] 2022-11-13 00:00:00 2022-11-13 00:00:00 Transition of Care Florence Botello DANIEL BEAULIEUNAPOLEON 1.2.840.114 350.1.13.10 4.2.7.2.686 [id number] [facility] 2022-11-09 21:02:00 2022-11-12 15:36:00 Inpatient X CHOLO LOVE [facility] [id number] [facility] 2022-11-09 21:02:00 2022-11-12 15:36:00 Hospital Encounter Murali Zafar [facility], Jelani [facility] 1.2.840.114 350.1.13.10 4.2.7.2.686 [id number] [facility] 2022-11-12 00:00:00 2022-11-12 00:00:00 Telephone Nata Vu [facility] 1.2.840.114 350.1.13.10 4.2.7.2.686 [id number] [facility] 2022-11-10 00:00:00 2022-11-10 00:00:00 Transition of Care Florence Botello SUJATHANeha DANIEL BEALUIEUNAPOLEON 1.2.840.114 350.1.13.10 4.2.7.2.686 [id number] [facility] 2022-11-05 21:27:00 2022-11-07 17:37:00 Inpatient X JON CADE [facility] [id number] [facility] 2022-11-05 21:27:00 2022-11-07 17:37:00 Hospital Encounter ZafarShadeMuralicalin Holmanmaria elena, Gerson Barronrie, Jon [facility] 1..840.114 350.1.13.10 4.2.7.2.686 [id number] [facility] 2022-10-31 13:11:41 2022-10-31 13:11:41 Outpatient SFA SFA [id number] Ron Monique [place] 2022-09-24 08:23:00 2022-09-24 08:23:00 Outpatient Natalia Bejaranopawel [facility] [id number] [facility] 2022-09-08 00:00:00 2022-09-08 00:00:00 Outpatient JAXON MONIQUE [facility] [id number] [facility] 2022-09-03 17:08:00 2022-09-04 13:45:00 Outpatient JAI PARKER [facility] JOSE ENRIQUE [id number] [facility] 2022-09-03 17:08:00 2022-09-04 13:45:00 Emergency Murali Zafar David Abdullah, Yaman [facility] 1..840.114 350.1.13.10 4.2.7.2.686 [id number] [facility] 2022-08-20 19:28:00 2022-08-20 19:28:[address] [facility] CPUL [id number] [facility] 2022-04-24 00:00:00 2022-04-24 00:00:00 Transition of Care Florence Botello 1..840.114 350.1.13.10 4.2.7.2.686 [id number] [facility] 2022-04-21 17:49:00 2022-04-23 15:15:00 Inpatient SACHIN YOUNGER [facility] JOSE ENRIQUE [id number] [facility] 2022-04-21 17:49:00 2022-04-23 15:15:00 Hospital Encounter Annette Holland, Sachin Brush [facility] 1.2.840.114 350.1.13.10 4.2.7.2.686 [id number] [facility] 2021-12-24 00:00:00 2021-12-24 00:00:00 Outpatient [facility] PIJFIFFDTZ [id number] [facility] 2021-09-30 14:00:00 2021-09-30 14:00:00 Outpatient GERSON PISANO [facility] [id number] [facility] 2021-09-30 13:25:55 2021-09-30 13:55:55 Office Visit Dustin Cervantes Joseph Marc [facility] 1.2840.114 350.1.13.10 4.2.7.2.686 [id number] [facility] 2021-09-30 00:00:00 2021-09-30 00:00:00 Orders Only Doctor Unassigned, [place] [facility] 1.2.840.114 350.1.13.10 4.2.7.2.686 [id number] [facility] 2021-08-09 00:00:00 2021-08-09 00:00:00 Orders Only Doctor Unassigned, [place] [facility] 1.2.840.114 350.1.13.10 4.2.7.2.686 [id number] [facility] 2021-07-02 15:02:00 2021-07-02 21:52:00 Emergency Marlene Taylor [facility] 1.2.840.114 350.1.13.10 4.2.7.2.686 [id number] [facility] 2021-07-02 14:36:00 2021-07-02 14:36:00 Emergency X [facility] ERT [id number] [facility] Results Test Description Test Time Test Comments Results Result Co mments Source [facility] GLUCOSE (AUTOMATED)2024-02-27 17:00:09* Test Item Value Reference Range Interpretation Comme nts POCT GLU (test code = 0654148781) 178 mg/dL 70-110 H Lab Interpretation (test cod e = 45232-5) Abnormal [facility] GLUCOSE (AUTOMATED)2024-02-27 12:26:11* Test Item Value Reference Range Interpretation Comme nts POCT GLU (test code = 7728292889) 149 mg/dL 70-110 H Lab Interpretation (test cod e = 65773-9) Abnormal [facility] GLUCOSE (AUTOMATED)2024-02-27 02:46:57* Test Item Value Reference Range Interpretation Comme nts POCT GLU (test code = 8687853246) 193 mg/dL 70-110 H Lab Interpretation (test cod e = 42378-4) Abnormal [facility] GLUCOSE (AUTOMATED)2024-02-26 21:33:27* Test Item Value Reference Range Interpretation Comme nts POCT GLU (test code = 6584104048) 167 mg/dL 70-110 H Lab Interpretation (test cod e = 59469-1) Abnormal [facility] GLUCOSE (AUTOMATED)2024-02-26 17:06:58* Test Item Value Reference Range Interpretation Comme nts POCT GLU (test code = 1660323116) 176 mg/dL 70-110 H Lab Interpretation (test cod e = 56384-3) Abnormal [facility] GLUCOSE (AUTOMATED)2024-02-26 12:35:03* Test Item Value Reference Range Interpretation Comme nts POCT GLU (test code = 4011529251) 167 mg/dL 70-110 H Lab Interpretation (test cod e = 29812-6) Abnormal [facility] GLUCOSE (AUTOMATED)2024-02-26 01:15:17* Test Item Value Reference Range Interpretation Comme nts POCT GLU (test code = 3185480909) 193 mg/dL 70-110 H Lab Interpretation (test cod e = 17495-7) Abnormal [facility] GLUCOSE (AUTOMATED)2024-02-25 21:10:00* Test Item Value Reference Range Interpretation Comme nts POCT GLU (test code = 6259900317) 202 mg/dL 70-110 H Lab Interpretation (test cod e = 34264-1) Abnormal [facility] GLUCOSE (AUTOMATED)2024-02-25 16:27:31* Test Item Value Reference Range Interpretation Comme nts POCT GLU (test code = 4114838088) 185 mg/dL 70-110 H Lab Interpretation (test cod e = 34526-5) Abnormal [facility] GLUCOSE (AUTOMATED)2024-02-25 14:21:04* Test Item Value Reference Range Interpretation Comme nts POCT GLU (test code = 1527393653) 244 mg/dL 70-110 H Lab Interpretation (test cod e = 66444-7) Abnormal [facility] GLUCOSE (AUTOMATED)2024-02-25 13:02:39* Test Item Value Reference Range Interpretation Comme nts POCT GLU (test code = 9829542483) 199 mg/dL 70-110 H Lab Interpretation (test cod e = 35505-8) Abnormal [facility] Metabolic Panel (NA, K, CL, CO2, GLUCOSE, BUN, CREATININE, CA)2024-02-25 11:08:17* Test Item Value Reference Range Interpretation Comme nts NA (test code = 9986750605) 132 mmol/L 135-145 L K (test code = 3215191446) 3.2 mmol/L 3.5-5.0 L CL (test code = 5374541064) 98 mmol/L 98-108 CO2 TOTAL (test code = 9800653593) 25 mmol/L 23-31 AGAP (test code = 5293183978) 9 2-16 BUN (test code = 1827986177) 5 mg/dL 7-23 L GLUCOSE (test code = 7575354294) 206 mg/dL 70-110 H CREATININE (test code = 2160-0) 0.83 mg/dL 0.60-1.25 CALCIUM (test code = 6624783544) 8.8 mg/dL 8.6-10.6 eGFR (test code = 35891-1) 105.3 mL/min/1.73m2 CKD-EPI eGFR (2020). Assuming creatinine has been stable day-to-day for at least three months, the eGFR indicates Category G1 (>= 90 mL/min/1.73 m2) Lab Interpretation (test code = 86482-3) Abnormal [facility] Onyl2081-48-31 10:41:51* Test Item Value Reference Range Interpretation [...] 33.4 g/dL 31.2-35.0 RDW-SD (test code = 53174-6) 39.8 fL 38.5-51.6 RDW-CV (test code = 788-0) 12.5 % 12.1-15.4 PLT (test code = 777-3) 252 150-328 MPV (test code = 44415-5) 9.1 fL 9.8-13.0 L NRBC/100 WBC (test code = 0857890190) 0.0 0.0-10.0 NRBC x10^3 (test code = 0815756670) See_Comment [Automated [employer] ge] The system which generated this result transmitted reference range: 10*3/?L. The reference range was not used to interpret this result as normal/abnormal. GRAN MAT (NEUT) % (test code = 770-8) 54.8 % IMM GRAN % (test code = 4579102382) 0.20 % LYMPH % (test code = 736-9) 27.5 % MONO % (test code = 5905-5) 12.4 % EOS % (test code = 713-8) 4.5 % BASO % (test code = 706-2) 0.6 % GRAN MAT x10^3(ANC) (test code = 5754766292) 3.50 10*3/uL 1.99-6.95 IMM GRAN x10^3 (test code = 8773872790) 0.00-0.06 LYMPH x10^3 (test code = 731-0) 1.76 10*3/uL 1.09-3.23 MONO x10^3 (test code = 742-7) 0.79 10*3/uL 0.36-1.02 EOS x10^3 (test code = 711-2) 0.29 10*3/uL 0.06-0.53 BASO x10^3 (test code = 704-7) 0.04 10*3/uL 0.01-0.09 Lab Interpretation (test code = 16583-1) Abnormal [facility] GLUCOSE (AUTOMATED)2024-02-25 01:30:42* Test Item Value Reference Range Interpretation Comme nts POCT GLU (test code = 4788259967) 203 mg/dL 70-110 H Lab Interpretation (test cod e = 20727-1) Abnormal [facility] GLUCOSE (AUTOMATED)2024-02-24 21:33:19* Test Item Value Reference Range Interpretation Comme nts POCT GLU (test code = 4348967921) 198 mg/dL 70-110 H Lab Interpretation (test cod e = 64429-3) Abnormal [facility] GLUCOSE (AUTOMATED)2024-02-24 18:00:37* Test Item Value Reference Range Interpretation Comme nts POCT GLU (test code = 6346791335) 220 mg/dL 70-110 H Lab Interpretation (test cod e = 19856-4) [facility]normal [facility] [id number] 15:27:25* Test Item Value Reference Range Interpretation Comme nts LACTIC ACID (test code = 0535855716) 1.62 mmol/L 0.50-2.20 Lab Interpretation (test cod e = 06257-8) Normal [facility] Hem[facility] (A1C)2024-02-24 15:25:42* Test Item Value Reference Range Interpretation Comme nts HGB A1C (test code = 4548-4) 11.5 % 4.0-5.7 H ZULEIMA (test code = ZULEIMA) Reference RangesNormal: <5.7%Prediabetes: 5.7 - 6.4%Diabetes: > 6.5% Lab Interpretation (test code = 05626-2) [facility]normal [facility] P[facility] W [id number] 13:02:45EXAM: CT ABDOMEN AND PELVIS WITH CONTRAST [...] TISSUES: No suspicious lytic or sclerotic bony lesions.[facility] 1 [id number] 12:55:45EXAM: XR CHEST 1 VW COMPARISON: Chest radiograph 11/05/2022 HISTORY: weakness FINDINGS: Lungs: The lungs are clear. and well-expanded. No pleural abnormalities. Heart/Mediastinum: The cardiomediastinal silhouette is normal in sizeaccounting for technique. Bones: No osseous lesions are detected. The soft tissues appear normalUnTexas [facility] HospitalN[facility] Pro-Bnp 2024-02-24 08:34:21* Test Item Value Reference Range Interpretation Comme nts NT-proBNP (test code = 08310-4) 21 pg/mL <=125 Lab Interpretation (test cod e = 60292-1) Normal [facility]rop[facility] [id number] 07:37:54* Test Item Value Reference Range Interpretation Comme nts TROPONIN I (test code = 7884728550) 0.005 ng/mL <=0.034 ZULEIMA (test code = [...] of biotin. Lab Interpretation (test code = 46270-0) Normal [facility] 21 + Lactic [id number] 07:31:17* Test Item Value Reference Range Interpretation Comme nts PH (test code = 3547858125) 7.40 7.32-7.42 PCO2 SAKINA (test code = 2748922437) 45 41-51 PO2 SAKINA (test code = 2221055465) 33 25-40 HCO3 SAKINA (test code = 1813908933) 27 24-28 AC VBE(BEAKER) (test code = 5253350625) 1.7 mEq/L THB SAKINA (test code = 5477110935) 14.3 g/dL 13.5-18.0 %O2HB SAKINA (test code = 6906187018) 63.8 % 52.0-63.0 H %COHB SAKINA (test code = 8838784765) 0.4 % 0.0-1.5 %METHB SAKINA (test code = 8721991980) 0.0 % 0.4-1.5 L VOL%O2 SAKINA (test code = 9542397010) 12.8 % 6.0-12.0 H NA (test code = 7523829579) 133 mmol/L 135-145 L K+ (test code = 6874840497) 3.1 mmol/L 3.5-5.0 L AC CA IONZ (test code = 1224203973) 4.80 mg/dL 4.50-5.30 GLUCOSE (test code = 5999971274) 235 mg/dL 70-110 H LACTIC ACID (test code = 8950951856) 2.74 mmol/L 0.50-2.20 H Lab Interpretation (test cod e = 77963-0) Abnormal [facility]wall[facility]esium2024-03-27 07:26:35* Test Item Value Reference Range Interpretation Comme nts MAGNESIUM (test code = 8005521587) 2.0 mg/dL 1.7-2.4 Lab Interpretation (test cod e = 80291-2) Normal [facility] Metabolic Zgabz0434-20-39 07:26:15* Test Item Value Reference Range Interpretation Comme nts NA (test code = 2464136405) 132 mmol/L 135-145 L K (test code = 7785789219) 3.1 mmol/L 3.5-5.0 L CL (test code = 0472160518) 94 mmol/L 98-108 L CO2 TOTAL (test code = 9006438344) 26 mmol/L 23-31 AGAP (test code = 9441883470) 12 2-16 BUN (test code = 1215445084) 7 mg/dL 7-23 GLUCOSE (test code = 7714383103) 235 mg/dL 70-110 H CREATININE (test code = 2160-0) 1.06 mg/dL 0.60-1.25 TOTAL BILI (test code = 0641418157) 0.9 mg/dL 0.1-1.1 CALCIUM (test code = 1835678323) 9.5 mg/dL 8.6-10.6 T PROTEIN (test code = 3691224221) 7.7 g/dL 6.3-8.2 ALBUMIN (test code = 3058482025) 4.1 g/dL 3.5-5.0 ALK PHOS (test code = 0895403596) 113 U/L 34-122 ALTv (test code = 1742-6) 171 U/L 5-50 H AST(SGOT) (test code = 2187936517) 102 U/L 13-40 H eGFR (test code = 30247-4) 84.4 mL/min/1.73m2 CKD-EPI eGFR (2020). Assuming creatinine has been stable day-to-day for at least three months, the eGFR indicates Category G2 (60 - 89 mL/min/1.73 m2) Lab Interpretation (test code = 56186-8) Abnormal [facility]wall[facility], Dvtvc7904-16-66 07:26:15* Test Item Value Reference Range Interpretation Comme nts LIPASE (test code = 9510580187) 82 U/L 0-220 Lab Interpretation (test cod e = 88726-6) Normal [facility]wall[facility] with Oejhvnjuwtrw2323-78-59 07:10:13* Test Item Value Reference Range Interpretation [...] 33.6 g/dL 31.2-35.0 RDW-SD (test code = 60544-8) 39.2 fL 38.5-51.6 RDW-CV (test code = 788-0) 12.7 % 12.1-15.4 PLT (test code = 777-3) 363 150-328 H MPV (test code = 04358-4) 9.2 fL 9.8-13.0 L NRBC/100 WBC (test code = 6882871129) 0.0 0.0-10.0 NRBC x10^3 (test code = 1201367480) See_Comment [Automated messa ge] The system which generated this result transmitted reference range: 10*3/?L. The reference range was not used to interpret this result as normal/abnormal. GRAN MAT (NEUT) % (test code = 770-8) 46.3 % IMM GRAN % (test code = 9489901564) 0.30 % LYMPH % (test code = 736-9) 38.2 % MONO % (test code = 5905-5) 10.5 % EOS % (test code = 713-8) 3.9 % BASO % (test code = 706-2) 0.8 % GRAN MAT x10^3(ANC) (test code = 6858654619) 3.49 10*3/uL 1.99-6.95 IMM GRAN x10^3 (test code = 9349483697) 0.00-0.06 LYMPH x10^3 (test code = 731-0) 2.88 10*3/uL 1.09-3.23 MONO x10^3 (test code = 742-7) 0.79 10*3/uL 0.36-1.02 EOS x10^3 (test code = 711-2) 0.29 10*3/uL 0.06-0.53 BASO x10^3 (test code = 704-7) 0.06 10*3/uL 0.01-0.09 Lab Interpretation (test code = 43952-5) [facility]:11:01* Test Item Value Reference Range Interpretation Comme nts POCT GLU (test code = 6519136138) 227 mg/dL 70-110 H Lab Interpretation (test cod e = 80745-9) [facility] 16:12:[facility]* Test Item Value Reference Range Interpretation Comme nts GLUBED (test code = GLUBED) 237 mg/dL 74-106 H Performed by cer tified refinery operator helper at [facility] [id number] 11:26:00* Test Item Value Reference Range Interpretation Comme nts GLUBED (test code = GLUBED) 259 mg/dL 74-106 H Performed by cer tified refinery operator helper at [facility] [id number] 06:28:00* Test Item Value Reference Range Interpretation Comme nts GLUBED (test code = GLUBED) 191 mg/dL 74-106 H Performed by cer tified refinery operator helper at [facility] [id number] 05:29:00* Test Item Value Reference Range Interpretation Comme nts GLUBED (test code = GLUBED) 212 mg/dL 74-106 H Performed by cer tified refinery operator helper at [facility] [id number] 00:12:00* Test Item Value Reference Range Interpretation Comme nts GLUBED (test code = GLUBED) 237 mg/dL 74-106 H Performed by cer tified refinery operator helper at [facility] [id number] 18:02:00* Test Item Value Reference Range Interpretation Comme nts GLUBED (test code = GLUBED) 261 mg/dL 74-106 H Performed by cer tified refinery operator helper at [facility] [id number] 12:13:00* Test Item Value Reference Range Interpretation Comme nts GLUBED (test code = GLUBED) 212 mg/dL 74-106 H Performed by cer tified refinery operator helper at [facility] [id number] 06:14:00* Test Item Value Reference Range Interpretation Comme nts GLUBED (test code = GLUBED) 259 mg/dL 74-106 H Performed by cer tified refinery operator helper at [facility] BASIC METABOLIC [id number] 05:34:00* Test Item Value Reference Range Interpretation [...] code = CA) 8.6 mg/dL 8.5-10.1 N [id number] 00:21:00* Test Item Value Reference Range Interpretation Comme nts GLUBED (test code = GLUBED) 357 mg/dL 74-106 H Performed by cer tified refinery operator helper at [facility] COMPREHENSIVE METABOLIC [id number] 22:24:00* Test Item Value Reference Range Interpretation [...] reference range due to change in reagent. [id number] 22:24:00* Test Item Value Reference Range Interpretation Comme nts PHOSPHORUS (test code = PHOS) 1.8 mg/dL 2.5-4.9 L [id number] 22:24:00* Test Item Value Reference Range Interpretation Comme nts MAGNESIUM (test code = MAG) 1.9 mg/dL 1.8-2.4 N [id number] 17:01:00* Test Item Value Reference Range Interpretation Comme nts GLUBED (test code = GLUBED) 299 mg/dL 74-106 H Performed by cer tified refinery operator helper at [facility] [id number] 12:14:00* Test Item Value Reference Range Interpretation Comme nts GLUBED (test code = GLUBED) 335 mg/dL 74-106 H Performed by cer tified refinery operator helper at [facility] [id number] 07:59:00* Test Item Value Reference Range Interpretation Comme nts GLUBED (test code = GLUBED) 329 mg/dL 74-106 H Performed by cer tified refinery operator helper at [facility] COMPREHENSIVE METABOLIC [id number] 06:56:00* Test Item Value Reference Range Interpretation [...] reference range due to change in reagent. [id number] 06:56:00* Test Item Value Reference Range Interpretation Comme nts PHOSPHORUS (test code = PHOS) 2.4 mg/dL 2.5-4.9 L [id number] 06:56:00* Test Item Value Reference Range Interpretation Comme nts MAGNESIUM (test code = MAG) 1.3 mg/dL 1.8-2.4 L CBC W/AUTO [id number] 06:24:00* Test Item Value Reference Range Interpretation [...] code = NRBC#) 0.00 K/mm3 0.0-0.1 N [id number] 05:49:00* Test Item Value Reference Range Interpretation Comme nts GLUBED (test code = GLUBED) 317 mg/dL 74-106 H Performed by cer tified refinery operator helper at [facility] [id number] 23:52:00* Test Item Value Reference Range Interpretation Comme nts GLUBED (test code = GLUBED) 364 mg/dL 74-106 H Performed by cer tified refinery operator helper at [facility] COMPREHENSIVE METABOLIC [id number] 15:47:00* Test Item Value Reference Range Interpretation [...] reference range due to change in reagent. [id number] 15:47:00* Test Item Value Reference Range Interpretation Comme nts PHOSPHORUS (test code = PHOS) 1.9 mg/dL 2.5-4.9 L [id number] 15:47:00* Test Item Value Reference Range Interpretation Comme nts MAGNESIUM (test code = MAG) 1.1 mg/dL 1.8-2.4 L [id number] 12:07:00* Test Item Value Reference Range Interpretation Comme nts GLUBED (test code = GLUBED) 375 mg/dL 74-106 H Performed by cer tified refinery operator helper at [facility] COMPREHENSIVE METABOLIC [id number] 06:42:00* Test Item Value Reference Range Interpretation [...] reference range due to change in reagent. [id number] 06:42:00* Test Item Value Reference Range Interpretation Comme nts PHOSPHORUS (test code = PHOS) 2.1 mg/dL 2.5-4.9 L [id number] 06:42:00* Test Item Value Reference Range Interpretation Comme nts MAGNESIUM (test code = MAG) 1.4 mg/dL 1.8-2.4 L CBC W/AUTO [id number] 06:15:00* Test Item Value Reference Range Interpretation [...] code = NRBC#) 0.00 K/mm3 0.0-0.1 N [id number] 06:04:00* Test Item Value Reference Range Interpretation Comme nts GLUBED (test code = GLUBED) 335 mg/dL 74-106 H Performed by cer tified refinery operator helper at [facility] [id number] 23:24:00* Test Item Value Reference Range Interpretation Comme nts GLUBED (test code = GLUBED) 300 mg/dL 74-106 H Performed by cer tified refinery operator helper at [facility] [id number] 17:17:00* Test Item Value Reference Range Interpretation Comme nts GLUBED (test code = GLUBED) 248 mg/dL 74-106 H Performed by cer tified refinery operator helper at [facility] HEPATIC FUNCTION [id number] 11:13:00* Test Item Value Reference Range Interpretation [...] reference range due to change in reagent. [id number] 11:13:00* Test Item Value Reference Range Interpretation Comme nts PHOSPHORUS (test code = PHOS) 4.1 mg/dL 2.5-4.9 N [id number] 11:13:00* Test Item Value Reference Range Interpretation Comme nts MAGNESIUM (test code = MAG) 1.3 mg/dL 1.8-2.4 L [id number] 11:06:00* Test Item Value Reference Range Interpretation Comme nts GLUBED (test code = GLUBED) 262 mg/dL 74-106 H Performed by cer tified refinery operator helper at [facility] [id number] 07:45:00* Test Item Value Reference Range Interpretation Comme nts GLUBED (test code = GLUBED) 231 mg/dL 74-106 H Performed by cer tified refinery operator helper at [facility] BASIC METABOLIC [id number] 06:02:00* Test Item Value Reference Range Interpretation [...] CA) 9.1 mg/dL 8.5-10.1 N CBC W/AUTO [id number] 05:50:00* Test Item Value Reference Range Interpretation [...] code = NRBC#) 0.00 K/mm3 0.0-0.1 N [id number] 05:45:00* Test Item Value Reference Range Interpretation Comme nts GLUBED (test code = GLUBED) 169 mg/dL 74-106 H Performed by cer tified refinery operator helper at [facility] [id number] 23:38:00* Test Item Value Reference Range Interpretation Comme nts GLUBED (test code = GLUBED) 164 mg/dL 74-106 H Performed by cer tified refinery operator helper at [facility] [id number] 16:06:00* Test Item Value Reference Range Interpretation Comme nts GLUBED (test code = GLUBED) 168 mg/dL 74-106 H Performed by cer tified refinery operator helper at [facility] [id number] 11:36:00* Test Item Value Reference Range Interpretation Comme nts GLUBED (test code = GLUBED) 168 mg/dL 74-106 H Performed by cer tified refinery operator helper at [facility] COMPREHENSIVE METABOLIC [id number] 10:07:00* Test Item Value Reference Range Interpretation [...] reference range due to change in reagent. [id number] 10:07:00* Test Item Value Reference Range Interpretation Comme nts PHOSPHORUS (test code = PHOS) 3.3 mg/dL 2.5-4.9 N [id number] 10:07:00* Test Item Value Reference Range Interpretation Comme nts MAGNESIUM (test code = MAG) 1.3 mg/dL 1.8-2.4 L CBC W/AUTO [id number] 09:27:00* Test Item Value Reference Range Interpretation [...] REQUIRED (test c ode = MDIFF) NO [id number] 08:20:00* Test Item Value Reference Range Interpretation Comme nts GLUBED (test code = GLUBED) 169 mg/dL 74-106 H Performed by cer tified refinery operator helper at [facility] [id number] 05:18:00* Test Item Value Reference Range Interpretation Comme nts GLUBED (test code = GLUBED) 158 mg/dL 74-106 H Performed by cer tified refinery operator helper at [facility] CBC W/AUTO [id number] 01:54:00* Test Item Value Reference Range Interpretation [...] NRBC#) 0.00 K/mm3 0.0-0.1 N COMPREHENSIVE METABOLIC [id number] 01:48:00* Test Item Value Reference Range Interpretation [...] reference range due to change in reagent. [id number] 01:48:00* Test Item Value Reference Range Interpretation Comme nts PHOSPHORUS (test code = PHOS) 3.3 mg/dL 2.5-4.9 N [id number] 01:48:00* Test Item Value Reference Range Interpretation Comme nts MAGNESIUM (test code = MAG) 1.4 mg/dL 1.8-2.4 L [id number] 23:59:00* Test Item Value Reference Range Interpretation Comme nts GLUBED (test code = GLUBED) 169 mg/dL 74-106 H Performed by cer yamilied refinery operator helper at [facility] - CT CHEST W/O [id number] 22:12:00 [facility] ([facility])Name: LEANDRO LEHMAN : 1970 Sex: M Name: LEANDRO LEHMAN [facility] : 1970 Age/S: 52 / M [address] Unit #: [id number] Loc: [place] [address] Phys: Danielle Oh LINE OUT WORKER Acct: [id number] Dis Date: Status:ADM IN PHONE #: [phone] Exam Date: 11/11/20232204 FAX #: [phone] Reason: eval for hypoxia EXAMS: CPT CODE: [id number] CT CHEST W/O CONTRAST 01755 Clinical Indication: SOB; Comparison: None TECHNIQUE: Sequential [...] no pneumothorax. AIRWAY: The central airway is no rmal. . MEDIASTINUM: No significant mediastinal lymphadenopathy. HEART: [...] 1 Signed Report (CONTINUED) Name: LEANDRO LEHMAN [facility] : 1970 Age/S: 52 / M [address] Unit #: [id number] Loc: [place] [address] Phys: AdrianoDanielle B LINE OUT WORKER Acct: [id number] Dis Date: Status: ADM IN PHONE #: [phone] Exam Date: 11/11/20232204 FAX #: [phone] Reason: eval for hypoxia EXAMS: CPT CODE: [id number] CT CHEST W/O CONTRAST 46254 (Continued) at 2211 Reported and signed by: Sachin Jameson M.D. CC: Danielle Oh NP; Lindsey Coyle; Sang Rey MD; Davion Duckworth MD Technologist:SARA MCKINNEY RT CTDI: DLP: Trnscb Date/Time: 11/11/2023 (2211) [email or web address] Orig Print D/T: S: 11/11/2023 (2214) PAGE 2 Signed [id number] 18:14:00* Test Item Value Reference Range Interpretation Comme nts GLUBED (test code = GLUBED) 170 mg/dL 74-106 H Performed by randy miller at [facility] - XR CHEST 1 [id number] 14:49:00 [facility])Name: LEANDRO LEHMAN : 1970 Sex: M FAX: Meryl Rey MD [place]: [address]: ADM FAX: Lindsey Coyle FAX: Sang Helms MD [phone] FAX: Davion Duckworth MD Name: LEANDRO LEHMAN [facility] : 1970 Age/S: 52/M [address] Unit #: [id number] Loc: [place] [address] Phys: Meryl Rey MD Acct: [id number] Dis Date:Status: ADM IN PHONE #: [phone] Exam Date: 11/11/2023 1407 FAX #: [phone] Reason: RESPIRATORY FAILURE EXAMS: CPT CODE: [id number] XR CHEST 1 V 16143 REASON FOR EXAM: RESPIRATORY FAILURE Exam Order Date: 11/11/2023 1:41 PM Ordering M.D.: Meryl Rey MD PROCEDURE: - XR CHEST 1 V COMPARISON: Chest x-ray the previous morning FINDINGS: The lungs are hypoinflated but clear. There is no pleural effusion or pneumothorax. Pulmonary vascularity is within normal limits. Cardiomediastinal silhouette is normal in size for technique. The mediastinal contours are within normal limits. Previou sly seen right IJ central line has been removed. Degenerative changes are present in the thoracic spine. The visualized upper abdomen is within normal limits. IMPRESSION: Lung volumes are diminished however no airspace disease is seen. Location: [facility] at 2726 Reported and signed by: Jamie Aguilar MD CC: Meryl Rey MD; Lindsey Coyle; Sang Rey MD; Davion Duckworth MD Technologist: Jessica Smith RT(R); Esther Pearl RT(R) Trnscrd Date/Time/By: 11/11/2023 (8102) : By: [email or web address] Orig Print D/T: S: 11/11/2023 (5746) PAGE 1 Signed [id number] 11:42:00* Test Item Value Reference Range Interpretation Comme nts GLUBED (test code = GLUBED) 194 mg/dL 74-106 H Performed by cer tified refinery operator helper at [facility] [id number] 05:25:00* Test Item Value Reference Range Interpretation Comme nts GLUBED (test code = GLUBED) 151 mg/dL 74-106 H Performed by cer tified refinery operator helper at [facility] COMPREHENSIVE METABOLIC [id number] 01:31:00* Test Item Value Reference Range Interpretation [...] reference range due to change in reagent. [id number] 01:31:00* Test Item Value Reference Range Interpretation Comme nts PHOSPHORUS (test code = PHOS) 3.5 mg/dL 2.5-4.9 N [id number] 01:31:00* Test Item Value Reference Range Interpretation Comme nts MAGNESIUM (test code = MAG) 1.7 mg/dL 1.8-2.4 L CBC W/AUTO [id number] 01:08:00* Test Item Value Reference Range Interpretation [...] code = NRBC#) 0.00 K/mm3 0.0-0.1 N [id number] 00:02:00* Test Item Value Reference Range Interpretation Comme nts GLUBED (test code = GLUBED) 176 mg/dL 74-106 H Performed by cer tified refinery operator helper at [facility] [id number]-[id number] 18:44:00* Test Item Value Reference Range Interpretation Comme [facility] TROPONIN-HS (test code = TROPI) 12.600 pg/mL 0-54 N 99th Percentile Upper Reference Limit (URL):Females: 34 pg/mLMales: 54 pg/mL In order to distinguish acute elevations of high sensitivitytroponin from other clinical conditions, the FourthUniversal Definition of Myocardial Infarction stressesclinical assessment and the demonstration of a rise and/orfall in serial troponin results above the URL. These results were obtained using Siemens [employer] IM TnIHreagent. Results from different methodologies should not becompared to one another as quantitative results and URLs mayvary by method. NOTE: A Positive Bias may occur for patients taking Biotin Supplements.NOTE: Current test methodology (pg/mL) units differ from prior test methodology (ng/mL) by a factor of 1000. [id number] 17:04:00* Test Item Value Reference Range Interpretation Comme nts GLUBED (test code = GLUBED) 158 mg/dL 74-106 H Performed by cer tified refinery operator helper at [facility] INFLUENZA A B [id number] 16:12:00* Test Item Value Reference Range Interpretation Comme nts INFLUENZA A POC (test code = INFLAAG) Negative Negative INFLUENZA B POC (test code = INFLBAG) Negative Negative - CT ABD PELVIS W/O [id number] 16:12:00 [facility])Name: LEANDRO LEHMAN : 1970 Sex: M Name: LEANDRO LEHMAN [facility] : 1970 Age/S: 52 / M [address] [facility] Unit#: [id number] Loc: [place] [address] Phys: Meryl Rey MD Acct: [id number] Dis Date: Status: ADM IN PHONE #: [phone] Exam Date: 11/10/2023 1528 FAX #: [phone] Reason: ABDOMINAL PAIN/VOMETING EXAMS: CPT CODE: [id number] CT ABD PELVIS W/O CONT 82419 REASON FOR EXAM: ABDOMINAL PAIN/VOMETING EXAM ORDER DATE: 11/10/2023 1:57 PM Ordering M.D.: Meryl Rey MD PROCEDURE: Axial CT imageswere acquired through the abdomen/pelvis at 5 mm intervals. Sagittal and coronal reformatted imageswere generated. CT dose reduction protocol: Automated exposure control adjustment of mA and/or kV ac cording to patient size or iterative reconstruction dose [...] No abnormal lymph nodes. Musculoskeletal structures and abdo nahomy wall: Degenerative changes are present in the spine PAGE 1 Signed Report (CONTINUED) Name: LEANDRO LEHMAN [facility] : 1970 Age/S: 52 / M [address] [facility] Unit #: [id number] Loc:[place] [address] Phys: Meryl Rey MD Acct: [id number] Dis Date: Status: ADM IN PHONE #: [phone] Exam Date: 11/10/2023 1528 FAX #: [phone] Reason: ABDOMINAL PAIN/VOMETING EXAMS: CPT CODE: [id number] CT ABD PELVIS W/O CONT 44900 (Continued) IMPRESSION: No acute intra-abdominal findings. Location: [facility] at 1612 Reported and signed by: Jamie Aguilar MD CC: Meryl Rey MD; Jeremias Ibarra MD; Sang Rey MD; Pete Duckworth Technologist:Renay Aleman RT(R),CT CTDI: DLP: Trnscb Date/Time: 11/10/2023 (161) [email or web address] Orig Print D/T: S: 11/10/2023 (1615) PAGE 2 Signed ReportB-TYPE NATRIURETIC [id number] 16:07:00* Test Item Value Reference Range Interpretation Comme nts B-TYPE NATRIURETIC PEPTIDE (test code = BNP) 19.6 pgram/mL 0-100 N - CT HEAD/BRAIN W/O [id number] 16:07:00 [facility] ([facility])Name: LEANDRO LEHMAN : 1970 Sex: M Name: LEANDRO LEHMAN [facility] : 1970 Age/S: 52 / M [address] [facility] Unit#: [id number] Loc: [place] [address] Phys: Meryl Rey MD Acct: [id number] Dis Date: Status: ADM IN PHONE #: [phone] Exam Date: 11/10/2023 1528 FAX #: [phone] Reason: S/P FALL EXAMS:CPT CODE: [id number] CT HEAD/BRAIN W/O CONT 51878 HISTORY: S/P FALL TECHNIQUE: Noncontrast 2.[address] of the head. Examination acquired within [...] contents are unremarkable. IMPRESSION: Negative CT head. Location:[facility] at 1607 Reported and signed by: Jamie Aguilar MD CC: Meryl Rey MD; Jeremias Ibarra MD; Sang Rey MD; Davion Duckworth MD Technologist:Renay Aleman RT(R),CT CTDI: DLP: Trnscb Date/Time: 11/10/2023 (2571) [email or web address] Orig Print D/T: S: 11/10/2023 (0041) PAGE 1 Signed MakmaeDLMPHKUP-[id number] 15:47:00* Test Item Value Reference Range Interpretation [...] the URL. These results were obtained using [employer] Hard TnIHreagent. Results from different methodologies should not becompared to one another as quantitative results and URLs mayvary by method. NOTE: A Positive Bias may occur for patients taking Biotin Supplements.NOTE: Current test methodology (pg/mL) units differ from prior test methodology (ng/mL) by a factor of 1000. ARTERIAL BLOOD [id number] 14:20:00* Test Item Value Reference Range Interpretation [...] 18.0-22.0 L - XR ABDOMEN AP 1 [id number] 14:19:00 [facility])Name: LEANDRO LEHMAN : 1970 Sex: M FAX: Meryl Rey MD [place]: [address]: ADM FAX: Lupe Boo MD [phone] FAX: Sang Helms MD [phone] FAX: Davion Duckworth MD Name: LEANDRO LEHMAN [facility] : 1970 Age/S: 52/M [address] [facility] Unit #: [id number] Loc: [place] [address] Phys: Meryl Rey MD Acct: [id number] Date: Status: ADM IN PHONE #: [phone] Exam Date: 11/10/2023 1345 FAX #: [phone] Reason: NAUSEA/VOMETING EXAMS: CPT CODE: [id number] XR ABDOMEN AP 1 V 80283 HISTORY: NAUSEA/VOMETING PROCEDURE: - XR ABDOMEN AP 1 V COMPARISON: None FINDINGS: Nonobstructive bowel gas pattern. No significant stool burden. No intra-abdominal mass effect. No abnormal calcifications are observed. Visualized osseous structures are intact. Visualized thorax is within normal limits. IMPRESSION: No radiographic evidence of acute intra-abdominal process. Location: [facility] at 1419 Reported and signed by: Jamie Aguilar MD CC: Meryl Rey MD; Lupe Bailon MD; Sang Rey MD; Davion Duckworth MD Technologist: Catherine Lorenzo RT(R) Trnscrd Date/Time/By:11/10/2023 (1419) : By: [email or web address] Orig Print D/T: S: 11/10/2023 (142) PAGE 1 Signed ReportURINALYSIS [id number] 12:26:00* Test Item Value Reference Range Interpretation Comme nts UA COLOR (test code = COLU) Light-Yellow YELLOW UA APPEARANCE (test code = APPU) CLEAR CLEAR IS THE SAMPLE FROM ER OR L&D?N IF THE ANSWER IS NO,PLEASE DOCUMENT TWO RN SIGNATURES HERE- [id number], [id number] 11/10/23 1226 UA GLUCOSE DIPSTICK (test code [...] #/LPF FEW Urine Source? Clean CatchCOMPREHENSIVE METABOLIC [id number] 12:03:00* Test Item Value Reference Range Interpretation [...] change in reagent. - XR CHEST 1 [id number] 11:57:00 [facility] ([facility])Name: LEANDRO LEHMAN : 1970 Sex: M FAX: Meryl Rey MD [place]: [address]: ADM FAX: Lupe Boo MD [phone] FAX: Sagn Helms MD [phone] FAX: Davion Dcukworth MD Name: LEANDRO LEHMAN [facility] : 1970 Age/S: 52/M [address] [facility] Unit #: [id number] Loc: V.S19 [place] [address] Phys: Meryl Rey MD Acct: [id number] Dis Date: Status: ADM IN PHONE #: [phone] Exam Date: 11/10/2023 1140 FAX #: [phone] Reason: respiratory failure EXAMS: CPT CODE: [id number] XR CHEST 1 V 46153 HISTORY: Respiratory failure. COMPARISON: Chest x-ray from September 24, 2022. Location: [facility]. Right jugular catheter with the tipprojected over the SVC. Patchy left interstitial infiltrate. No effusion or congestion. Mild cardiomegaly. IMPRESSION: Patchy left interstitial infiltrate. at 1157 Reported and signed by: Arnaud Duggan M.D. CC: Meryl Rey MD; Lupe Bailon MD; Sang Rey MD; Davion Duckworth MD Technologist: Mauricio KING(R) Trnscrd Date/Time/By:11/10/2023 (3589) : By: [email or web address] Orig Print D/T: S: 11/10/2023 (6282) PAGE 1 Signed ReportLACTIC [id number] 11:54:00* Test Item Value Reference Range Interpretation Comme nts LACTIC ACID (test code = LACT) 0.8 mmol/L 0.4-1.9 N PROTHROMBIN [id number] 11:53:00* Test Item Value Reference Range Interpretation [...] (2.5-3.5) IS PATIENT ON ANTICOAGULANTS? NCBC W/AUTO [id number] 11:51:00* Test Item Value Reference Range Interpretation [...] NRBC#) 0.00 K/mm3 0.0-0.1 N REAGENT STRIP/BLOOD [id number] 00:00:00* Test Item Value Reference Range Interpretation Comme [facility] BLOOD SUGAR (test code = 055043) 263 mg/dL 65-99 A Lab Interpretation (test cod e = 21194-7) Abnormal Maisha Seybold - ExternalTELERETINAL DIABETIC [id number] 15:16:00* Test Item Value Reference Range Interpretation Comme [facility] IMP (test code = IMP) 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 PlanRepeat diabetic retinopathy screening in 1 year Lab Interpretation (test code = 21607-9) Abnormal Maisha Seybold - ExternalPOCT GLUCOSE (AUTOMATED)2022-11-12 17:36:05* Test Item Value Reference Range Interpretation Comme [facility] POCT GLU (test code = 7232897217) 186 mg/dL 70-110 H Lab Interpretation (test cod e = 14470-9) Abnormal [facility] GLUCOSE (AUTOMATED)2022-11-12 14:01:05* Test Item Value Reference Range Interpretation Comme nts POCT GLU (test code = 4231431969) 143 mg/dL 70-110 H Lab Interpretation (test cod e = 43754-4) [facility] 02:11:38* Test Item Value Reference Range Interpretation Comme nts POCT GLU (test code = 9372015873) 185 mg/dL 70-110 H Lab Interpretation (test cod e = 08967-3) [facility]normal [facility] 22:21:02* Test Item Value Reference Range Interpretation Comme nts POCT GLU (test code = 5621553819) 153 mg/dL 70-110 H Lab Interpretation (test cod e = 41705-4) Abnormal [facility] GLUCOSE (AUTOMATED)2022-11-11 17:34:44* Test Item Value Reference Range Interpretation Comme nts POCT GLU (test code = 4601548352) 158 mg/dL 70-110 H Lab Interpretation (test cod e = 93162-7) [facility] 13:54:40* Test Item Value Reference Range Interpretation Comme nts POCT GLU (test code = 5523548206) 145 mg/dL 70-110 H Lab Interpretation (test cod e = 34426-3) Abnormal [facility] GLUCOSE (AUTOMATED)2022-11-11 02:46:38* Test Item Value Reference Range Interpretation Comme nts POCT GLU (test code = 5998336120) 230 mg/dL 70-110 H Lab Interpretation (test cod e = 27887-9) [facility] 22:41:53* Test Item Value Reference Range Interpretation Comme nts POCT GLU (test code = 9549253224) 161 mg/dL 70-110 H Lab Interpretation (test cod e = 20797-5) [facility] 22:09:00* Test Item Value Reference Range Interpretation Comme nts POCT GLU (test code = 4905692164) 140 mg/dL 70-110 H Lab Interpretation (test cod e = 57937-1) Abnormal [facility] GLUCOSE (AUTOMATED)2022-11-10 14:40:30* Test Item Value Reference Range Interpretation Comme nts POCT GLU (test code = 9779150828) 140 mg/dL 70-110 H Lab Interpretation (test cod e = 42937-5) [facility]normal [facility]-10 13:39:06* Test Item Value Reference Range Interpretation Comme nts POCT GLU (test code = 4304703451) 129 mg/dL 70-110 H Lab Interpretation (test cod e = 72425-5) [facility]normal [facility]-10 03:12:17* Test Item Value Reference Range Interpretation Comme nts POCT GLU (test code = 8172512707) 142 mg/dL 70-110 H Lab Interpretation (test cod e = 16034-6) Abnormal [facility] GLUCOSE (AUTOMATED)2022-11-07 22:01:53* Test Item Value Reference Range Interpretation Comme nts POCT GLU (test code = 8063791993) 150 mg/dL 70-110 H Lab Interpretation (test cod e = 00039-6) [facility] 17:30:01* Test Item Value Reference Range Interpretation Comme nts POCT GLU (test code = 1318217539) 178 mg/dL 70-110 H Lab Interpretation (test cod e = 06258-1) [facility]normal [facility] 14:17:47* Test Item Value Reference Range Interpretation Comme nts POCT GLU (test code = 2200551217) 156 mg/dL 70-110 H Lab Interpretation (test cod e = 83830-0) [facility]normal [facility] 03:33:30* Test Item Value Reference Range Interpretation Comme nts POCT GLU (test code = 9946002138) 153 mg/dL 70-110 H Lab Interpretation (test cod e = 94334-3) Abnormal [facility] GLUCOSE (AUTOMATED)2022-11-06 22:57:40* Test Item Value Reference Range Interpretation Comme nts POCT GLU (test code = 1596374492) 139 mg/dL 70-110 H Lab Interpretation (test cod e = 73390-8) [facility]normal [facility] [id number] 22:26:29* Test Item Value Reference Range Interpretation Comme nts BOH (test code = 7755748260) 3.0 mmol/L ZULEIMA (test code = ZULEIMA) Normal Ranges: ? ? Nonfasting ? Less than 0.1 mmol/L ? ? Overnight Fast ? ? ? Less than 0.4 mmol/L ? ? Fasting (1-2 weeks) ?6-8 mmol/L Test developed and characteristics determined by [facility] Laboratory Services. [facility] (Na, K, Cl, CO2, Glucose, BUN, Creatinine, Ca)2022-11-06 21:22:03* Test Item Value Reference Range Interpretation Comme nts NA (test code = 9071567649) 136 mmol/L 135-145 K (test code = 6005039739) 3.9 mmol/L 3.5-5.0 Slight hemolysis CL (test code = 9492996613) 109 mmol/L 98-108 H CO2 TOTAL (test code = 1490115931) 15 mmol/L 23-31 L AGAP (test code = 9661517861) 2-16 BUN (test code = 2933365486) 7-23 L Slight hemolysis GLUCOSE (test code = 5237038892) 171 mg/dL 70-110 H CREATININE (test code = 0728422860) 0.49 mg/dL 0.60-1.25 L CALCIUM (test code = 7102664249) 7.9 mg/dL 8.6-10.6 L eGFR (test code = 6262608410) mL/min/1.73m2 ZULEIMA (test code = ZULEIMA) Association [...] imaging tests). Lab Interpretation (test code = 26875-9) [facility]normal [facility]-06 16:16:50* Test Item Value Reference Range Interpretation Comme [facility] POCT GLU (test code = 1920568781) 163 mg/dL 70-110 H Lab Interpretation (test cod e = 31468-7) Abnormal [facility] Metabolic Panel (Na, K, Cl, CO2, Glucose, BUN, Creatinine, Ca)2022-11-06 12:51:08* Test Item Value Reference Range Interpretation Comme [facility] NA (test code = 8695521601) 135 mmol/L 135-145 K (test code = 2614081986) 4.7 mmol/L 3.5-5.0 Slight hemolysis CL (test code = 6445983964) 110 mmol/L 98-108 H CO2 TOTAL (test code = 0431484946) 12 mmol/L 23-31 L AGAP (test code = 7071859282) 2-16 BUN (test code = 5231898241) 3 mg/dL 7-23 L Slight hemolysis GLUCOSE (test code = 7953514833) 152 mg/dL 70-110 H CREATININE (test code = 0101139607) 0.62 mg/dL 0.60-1.25 CALCIUM (test code = 0551681010) 8.3 mg/dL 8.6-10.6 L eGFR (test code = 6215197944) mL/min/1.73m2 ZULEIMA (test code = ZULEIMA) Association [...] imaging tests). Lab Interpretation (test code = 56808-1) Abnormal [facility] GLUCOSE (AUTOMATED)2022-11-06 11:27:27* Test Item Value Reference Range Interpretation Comme [facility] POCT GLU (test code = 0003050962) 139 mg/dL 70-110 H Lab Interpretation (test cod e = 55576-6) Abnormal [facility] GLUCOSE (AUTOMATED)2022-11-06 09:28:37* Test Item Value Reference Range Interpretation Comme nts POCT GLU (test code = 0082214032) 137 mg/dL 70-110 H Lab Interpretation (test cod e = 02570-1) Abnormal [facility] GLUCOSE(AGE >30DAYS)2022-11-06 08:15:00* Test Item Value Reference Range Interpretation Comme [facility] POCT Glu (age>30days) (test code = 3342) 107 mg/dL 70-110 Lab Interpretation (test cod e = 07469-6) Normal [facility] GLUCOSE (AUTOMATED)2022-11-06 06:58:20* Test Item Value Reference Range Interpretation Comme nts POCT GLU (test code = 5524152281) 96 mg/dL 70-110 Lab Interpretation (test cod e = 22612-0) Normal [facility] GLUCOSE(AGE >30DAYS)2022-11-06 06:58:00* Test Item Value Reference Range Interpretation Comme nts POCT Glu (age>30days) (test code = 3342) 96 mg/dL 70-110 Lab Interpretation (test cod e = 99315-9) Normal [facility] [id number] 05:12:24* Test Item Value Reference Range Interpretation Comments TROPONIN I (test code = 2496089908) 0.003 ng/mL See_Comment [Automated message] The system [...] of biotin. Lab Interpretation (test code = 15365-8) Normal [facility] [id number] 05:09:22* Test Item Value Reference Range Interpretation Comme [facility] NT-proBNP (test code = 2110254208) 58 pg/mL See_Comment [Automated message] The system which generated this result transmitted reference range: <=125. The reference range was not used to interpret this result as normal/abnormal. ZULEIMA (test code = ZULEIMA) Biotin has been reported to cause a negative bias, interpret results relative to patient's use of biotin. Lab Interpretation (test code = 53571-5) Normal [facility] METABOLIC PANEL (39768)2022-11-06 05:00:43* Test Item Value Reference Range Interpretation Comme nts NA (test code = 3891239643) 135 mmol/L 135-145 K (test code = 3213374532) 4.3 mmol/L 3.5-5.0 CL (test code = 1126762726) 106 mmol/L 98-108 CO2 TOTAL (test code = 2267729794) 11 mmol/L 23-31 L AGAP (test code = 3601185650) 2-16 H BUN (test code = 7300615821) 3 mg/dL 7-23 L GLUCOSE (test code = 7826660277) 129 mg/dL 70-110 H CREATININE (test code = 1094633949) 0.71 mg/dL 0.60-1.25 TOTAL BILI (test code = 0053463912) 1.0 mg/dL 0.1-1.1 CALCIUM (test code = 8999712923) 8.7 mg/dL 8.6-10.6 T PROTEIN (test code = 4059854725) 6.6 g/dL 6.3-8.2 ALBUMIN (test code = 1435521640) 3.9 g/dL 3.5-5.0 ALK PHOS (test code = 2765046357) 85 U/L 34-122 ALTv (test code = 1742-6) 125 U/L 5-50 H AST(SGOT) (test code = 3086336205) 39 U/L 13-40 eGFR (test code = 9551220765) mL/min/1.73m2 ZULEIMA (test code = ZULEIMA) Association [...] imaging tests). Lab Interpretation (test code = 89682-7) Abnormal [facility]22[facility] 05:00:43* Test Item Value Reference Range Interpretation Comme nts LIPASE (test code = 8268407119) 105 U/L 0-220 Lab Interpretation (test cod e = 91642-5) Normal [facility] WITH [id number] 04:33:58* Test Item Value Reference Range Interpretation Comme nts WBC (test code = 6690-2) See_Comment [Automated [employer]] The system which generated this result transmitted reference range: 4.20 - 10.70 10*3/?L. The reference range was not used to interpret this result as normal/abnormal. RBC (test code = 789-8) See_Comment [Automated [employer]] The system which generated this result transmitted [...] 32.9 g/dL 31.2-35.0 RDW-SD (test code = 99173-2) 47.2 fL 38.5-51.6 RDW-CV (test code = 788-0) 14.2 % 12.1-15.4 PLT (test code = 777-3) See_Comment [Automated messa ge] The system which generated this result transmitted reference range: 150 - 328 10*3/?L. The reference range was not used to interpret this result as normal/abnormal. MPV (test code = 45781-1) 8.5 fL 9.8-13.0 L NRBC/100 WBC (test code = 8736980003) See_Comment [Automated [employer] ssage] The system which generated this result transmitted reference range: 0.0 - 10.0 /100 WBCs. The reference range was not used to interpret this result as normal/abnormal. NRBC x10^3 (test code = 7384395903) See_Comment [Automated messa ge] The system which generated this result transmitted reference range: 10*3/?L. The reference range was not used to interpret this result as normal/abnormal. GRAN MAT (NEUT) % (test code = 770-8) 53.8 % IMM GRAN % (test code = 0943647328) 0.60 % LYMPH % (test code = 736-9) 34.6 % MONO % (test code = 5905-5) 8.3 % EOS % (test code = 713-8) 2.4 % BASO % (test code = 706-2) 0.3 % GRAN MAT x10^3(ANC) (test code = 4926929261) 3.85 10*3/uL 1.99-6.95 IMM GRAN x10^3 (test code = 1918471508) 0.04 10*3/uL 0.00-0.06 LYMPH x10^3 (test code = 731-0) 2.47 10*3/uL 1.09-3.23 MONO x10^3 (test code = 742-7) 0.59 10*3/uL 0.36-1.02 EOS x10^3 (test code = 711-2) 0.17 10*3/uL 0.06-0.53 BASO x10^3 (test code = 704-7) 0.01-0.09 Lab Interpretation (test code = 91101-8) Abnormal [facility]ST 1 [id number] 09:27:00 [facility] 1970 Sex: M Name: LEANDRO LEHMAN [facility] : 1970 Age/S: 51 / M [address] Unit #: [id number] Loc: [place] [address] Phys: Randall Veloz MD Acct: [id number] Dis Date: Status: [facility] #: [phone] Exam Date: 09/24/2022909 FAX #: Reason: PRE OP EXAMS: CPT: [id number] XR CHEST 1 V 51566 Fluoro Time: DAP (Gy m2): Air Kerma (mGy): EXAMINATION: - XR CHEST 1 V. LOCATION: [facility]. HISTORY: PRE OP, GERD. COMPARISON: None. FINDINGS: [...] PAGE 1 Signed Report Name: LEANDRO LEHMAN [facility] : 1970 Age/S: 51 / M [id number] Unit #: [id number] Loc: [place] [address] Phys: Randall Veloz MD Acct: [id number] Dis Date: Status: REG SDC PHONE #: [phone] Exam Date: 09/24/2022 0910 FAX #: Reason: PRE OP EXAMS: CPT: [id number] XR CHEST 1 V 23910 Fluoro Time: DAP (Gy m2): Air Kerma (mGy): (Continued) Technologist: Delano Sorenson, RT(R)(CT) Trnscb Date/Time: 09/24/2022 (926) [email or web address] Orig Print D/T: S: 09/24/2022 (929) PAGE 2 Signed ReportCBC W/AUTO [id number] 09:06:00* Test Item Value Reference Range Interpretation [...] = MDIFF) NO DIFF/SCN CRITERIA BASIC METABOLIC [id number] 09:00:00* Test Item Value Reference Range Interpretation [...] 8.9 MG/DL 8.5-10.1 N COVID 19 INHOUSE [id number] 08:52:00* Test Item Value Reference Range Interpretation Comme nts COVID 19 INHOUSE AG (test code = [id number]) NEGATIVE Negative 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 valve 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 , negative results should be treated aspresumptive [...] Test Item Value Reference Range Interpretation Comme [facility] POCT GLU (test code = 1658756135) 193 mg/dL 70-110 H Lab Interpretation (test cod e = 21523-5) Abnormal [facility] GLUCOSE (AUTOMATED)2022-09-04 13:42:12* Test Item Value Reference Range Interpretation Comme [facility] POCT GLU (test code = 3317955703) 185 mg/dL 70-110 H Lab Interpretation (test cod e = 82107-5) Abnormal [facility] GLUCOSE (AUTOMATED)2022-09-04 05:36:51* Test Item Value Reference Range Interpretation Comme [facility] POCT GLU (test code = 7853511621) 204 mg/dL 70-110 H Lab Interpretation (test cod e = 98916-8) Abnormal [facility]EMOGLOB[facility] (A1C)2022-09-04 05:24:19* Test Item Value Reference Range Interpretation Comme [facility] HGB A1C (test code = 4548-4) 9.2 % 4-5.7 H ZULEIMA (test code = ZULEIMA) Reference RangesNormal: <5.7%Prediabetes: 5.7 - 6.4%Diabetes: > 6.5% Lab Interpretation (test code = 88345-8) Abnormal [facility] [id number] 22:58:29* Test Item Value Reference Range Interpretation Comments TROPONIN I (test code = 1101377908) 0.002 ng/mL See_Comment [Automated message] The system [...] of biotin. Lab Interpretation (test code = 28843-1) Normal [facility] [id number] 22:55:11* Test Item Value Reference Range Interpretation Comme nts NT-proBNP (test code = 7685797794) 29 pg/mL See_Comment [Automated message] The system which generated this result transmitted reference range: <=125. The reference range was not used to interpret this result as normal/abnormal. ZULEIMA (test code = ZULEIMA) Biotin has been reported to cause a negative bias, interpret results relative to patient's use of biotin. Lab Interpretation (test code = 58965-2) Normal [facility] PART[facility] THRMPLAS [id number] 22:51:28* Test Item Value Reference Range Interpretation Comme nts APTT Patient (test code = 3173-2) See_Comment L [Automated message] The system which generated this result transmitted reference range: 23 - 38 Seconds. The reference range was not used to interpret this result as normal/abnormal. ZULEIMA (test code = ZULEIMA) The [facility] patient population mean normal value for aPTT is 30 seconds. Lab Interpretation (test code = 62234-6) Abnormal [facility] METABOLIC PANEL (19468)2022-09-03 22:46:28* Test Item Value Reference Range Interpretation Comme nts NA (test code = 7127676245) 137 mmol/L 135-145 K (test code = 8995763994) 5.1 mmol/L 3.5-5 H CL (test code = 0452382245) 103 mmol/L 98-108 CO2 TOTAL (test code = 3144582824) 21 mmol/L 23-31 L AGAP (test code = 2135258800) 2-16 BUN (test code = 3412566912) 18 mg/dL 7-23 GLUCOSE (test code = 5231979654) 360 mg/dL 70-110 H CREATININE (test code = 7457243391) 0.84 mg/dL 0.6-1.25 TOTAL BILI (test code = 6394264446) 0.7 mg/dL 0.1-1.1 CALCIUM (test code = 4450176240) 9.2 mg/dL 8.6-10.6 T PROTEIN (test code = 3968321930) 6.7 g/dL 6.3-8.2 ALBUMIN (test code = 7811707819) 4.3 g/dL 3.5-5 ALK PHOS (test code = 3156083620) 140 U/L 34-122 H ALTv (test code = 1742-6) 727 U/L 5-50 H AST(SGOT) (test code = 1534238079) 348 U/L 13-40 H eGFR (test code = 5771315611) mL/min/1.73m2 ZULEIMA (test code = ZULEIMA) Association [...] imaging tests). Lab Interpretation (test code = 86421-9) [facility]normal [facility] 22:46:09* Test Item Value Reference Range Interpretation Comme nts LIPASE (test code = 7533299577) 252 U/L 0-220 H Lab Interpretation (test cod e = 22575-1) Abnormal [facility] WITH [id number] 22:35:24* Test Item Value Reference Range Interpretation Comme nts WBC (test code = 6690-2) See_Comment [Automated [employer] The system which generated this result transmitted reference range: 4.20 - 10.70 10*3/?L. The reference range was not used to interpret this result as normal/abnormal. RBC (test code = 789-8) See_Comment [Automated [employer] The system which generated this result [...] 32.6 g/dL 31.2-35 RDW-SD (test code = 65955-5) 50.6 fL 38.5-51.6 RDW-CV (test code = 788-0) 16.0 % 12.1-15.4 H PLT (test code = 777-3) See_Comment [Automated [employer] The system which generated this result transmitted reference range: 150 - 328 10*3/?L. The reference range was not used to interpret this result as normal/abnormal. MPV (test code = 49369-8) 9.1 fL 9.8-13 L NRBC/100 WBC (test code = 1218063685) See_Comment [Automated me ssage] The system which generated this result transmitted reference range: 0.0 - 10.0 /100 WBCs. The reference range was not used to interpret this result as normal/abnormal. NRBC x10^3 (test code = 1987201726) See_Comment [Automated messa ge] The system which generated this result transmitted reference range: 10*3/?L. The reference range was not used to interpret this result as normal/abnormal. GRAN MAT (NEUT) % (test code = 770-8) 74.4 % IMM GRAN % (test code = 4243749850) 1.60 % LYMPH % (test code = 736-9) 17.8 % MONO % (test code = 5905-5) 5.7 % EOS % (test code = 713-8) 0.1 % BASO % (test code = 706-2) 0.4 % GRAN MAT x10^3(ANC) (test code = 7309098470) 6.35 10*3/uL 1.99-6.95 IMM GRAN x10^3 (test code = 5400696052) 0.14 10*3/uL 0-0.06 H LYMPH x10^3 (test code = 731-0) 1.52 10*3/uL 1.09-3.23 MONO x10^3 (test code = 742-7) 0.49 10*3/uL 0.36-1.02 EOS x10^3 (test code = 711-2) 0.06-0.53 L BASO x10^3 (test code = 704-7) 0.03 10*3/uL 0.01-0.09 Lab Interpretation (test code = 12206-3) Abnormal [facility] GLUCOSE (AUTOMATED)2022-04-23 19:01:02* Test Item Value Reference Range Interpretation Comme nts POCT GLU (test code = 6733450690) 174 mg/dL 70-110 H Lab Interpretation (test cod e = 72767-5) Abnormal [facility] GLUCOSE (AUTOMATED)2022-04-23 16:43:23* Test Item Value Reference Range Interpretation Comme nts POCT GLU (test code = 4006444872) 162 mg/dL 70-110 H Lab Interpretation (test cod e = 56559-6) Abnormal [facility] GLUCOSE (AUTOMATED)2022-04-23 15:37:41* Test Item Value Reference Range Interpretation Comme nts POCT GLU (test code = 9037189609) 130 mg/dL 70-110 H Lab Interpretation (test cod e = 78204-6) Abnormal [facility] GLUCOSE (AUTOMATED)2022-04-23 12:54:00* Test Item Value Reference Range Interpretation Comme [facility] POCT GLU (test code = 3528036181) 135 mg/dL 70-110 H Lab Interpretation (test cod e = 40000-4) [facility] MET[facility]OLIC [facility] (NA, K, CL, CO2, GLUCOSE, BUN, CREATININE, CA)2022-04-23 11:38:26* Test Item Value Reference Range Interpretation Comme nts NA (test code = 9998622831) 137 mmol/L 135-145 K (test code = 9146769745) 3.2 mmol/L 3.5-5.0 L CL (test code = 8971010935) 110 mmol/L 98-108 H CO2 TOTAL (test code = 5163897077) 19 mmol/L 23-31 L AGAP (test code = 4088821658) 2-16 BUN (test code = 7547532526) <2 7-23 L GLUCOSE (test code = 4598154020) 121 mg/dL 70-110 H CREATININE (test code = 6922705026) 0.67 mg/dL 0.60-1.25 CALCIUM (test code = 6870522689) 7.7 mg/dL 8.6-10.6 L eGFR (test code = 2633038643) mL/min/1.73m2 ZULEIMA (test code = ZULEIMA) Association [...] imaging tests). Lab Interpretation (test code = 56163-8) Abnormal [facility] GLUCOSE (AUTOMATED)2022-04-23 11:35:25* Test Item Value Reference Range Interpretation Comme nts POCT GLU (test code = 3990722779) 135 mg/dL 70-110 H Lab Interpretation (test cod e = 94298-7) Abnormal [facility] 11:05:56* Test Item Value Reference Range Interpretation Comme nts MAGNESIUM (test code = 4140148641) 1.7 mg/dL 1.7-2.4 Lab Interpretation (test cod e = 51668-2) Normal [facility] GLUCOSE (AUTOMATED)2022-04-23 09:37:57* Test Item Value Reference Range Interpretation Comme nts POCT GLU (test code = 2529602558) 107 mg/dL 70-110 Lab Interpretation (test cod e = 94702-6) Normal [facility] GLUCOSE (AUTOMATED)2022-04-23 07:22:08* Test Item Value Reference Range Interpretation Comme nts POCT GLU (test code = 5881143166) 146 mg/dL 70-110 H Lab Interpretation (test cod e = 82207-8) Abnormal [facility] GLUCOSE (AUTOMATED)2022-04-23 05:29:09* Test Item Value Reference Range Interpretation Comme nts POCT GLU (test code = 2460702814) 142 mg/dL 70-110 H Lab Interpretation (test cod e = 10876-7) Abnormal [facility] GLUCOSE (AUTOMATED)2022-04-23 04:10:18* Test Item Value Reference Range Interpretation Comme [facility] POCT GLU (test code = 3740455374) 148 mg/dL 70-110 H Lab Interpretation (test cod e = 83701-0) Abnormal [facility] GLUCOSE (AUTOMATED)2022-04-23 02:27:55* Test Item Value Reference Range Interpretation Comme [facility] POCT GLU (test code = 1040062590) 160 mg/dL 70-110 H Lab Interpretation (test cod e = 40750-2) Abnormal [facility] Metabolic Panel (Na, K, Cl, CO2, Glucose, BUN, Creatinine, Ca)2022-04-23 01:58:18* Test Item Value Reference Range Interpretation Comme [facility] NA (test code = 8051483581) 137 mmol/L 135-145 K (test code = 3850414373) 3.6 mmol/L 3.5-5.0 CL (test code = 9566978298) 109 mmol/L 98-108 H CO2 TOTAL (test code = 0245417254) 17 mmol/L 23-31 L AGAP (test code = 9412497947) 2-16 BUN (test code = 6124709523) <2 7-23 L GLUCOSE (test code = 0133354463) 162 mg/dL 70-110 H CREATININE (test code = 7592863103) 0.62 mg/dL 0.60-1.25 CALCIUM (test code = 9422033712) 8.2 mg/dL 8.6-10.6 L eGFR (test code = 4429322845) mL/min/1.73m2 ZULEIMA (test code = ZULEIMA) Association [...] imaging tests). Lab Interpretation (test code = 09918-6) Abnormal [facility] GLUCOSE (AUTOMATED)2022-04-23 01:21:32* Test Item Value Reference Range Interpretation Comme nts POCT GLU (test code = 0632863742) 142 mg/dL 70-110 H Lab Interpretation (test cod e = 74205-8) Abnormal [facility] GLUCOSE (AUTOMATED)2022-04-23 00:05:03* Test Item Value Reference Range Interpretation Comme nts POCT GLU (test code = 9131174102) 148 mg/dL 70-110 H Lab Interpretation (test cod e = 84737-3) Abnormal [facility] GLUCOSE (AUTOMATED)2022-04-22 23:06:57* Test Item Value Reference Range Interpretation Comme nts POCT GLU (test code = 4854706553) 144 mg/dL 70-110 H Lab Interpretation (test cod e = 62832-9) Abnormal [facility] GLUCOSE (AUTOMATED)2022-04-22 22:12:45* Test Item Value Reference Range Interpretation Comme nts POCT GLU (test code = 6836050180) 145 mg/dL 70-110 H Lab Interpretation (test cod e = 02344-3) [facility]normal [facility] [id number] 21:43:14* Test Item Value Reference Range Interpretation Comments TROPONIN I (test code = 4965680296) 0.003 ng/mL See_Comment [Automated message] The system [...] of biotin. Lab Interpretation (test code = 92656-8) Normal [facility] Metabolic Panel (Na, K, Cl, CO2, Glucose, BUN, Creatinine, Ca)2022-04-22 21:31:09* Test Item Value Reference Range Interpretation Comme nts NA (test code = 8365678034) 134 mmol/L 135-145 L K (test code = 8308321807) 3.9 mmol/L 3.5-5.0 CL (test code = 9971055691) 108 mmol/L 98-108 CO2 TOTAL (test code = 6523009126) 15 mmol/L 23-31 L AGAP (test code = 4796236373) 2-16 BUN (test code = 7881555544) 2 mg/dL 7-23 L GLUCOSE (test code = 4222011204) 170 mg/dL 70-110 H CREATININE (test code = 4321383178) 0.62 mg/dL 0.60-1.25 CALCIUM (test code = 6300629977) 8.3 mg/dL 8.6-10.6 L eGFR (test code = 1817032118) mL/min/1.73m2 ZULEIMA (test code = ZULEIMA) Association [...] imaging tests). Lab Interpretation (test code = 29032-2) Abnormal [facility] GLUCOSE (AUTOMATED)2022-04-22 21:08:08* Test Item Value Reference Range Interpretation Comme nts POCT GLU (test code = 5993309982) 156 mg/dL 70-110 H Lab Interpretation (test cod e = 38920-2) Abnormal [facility] GLUCOSE (AUTOMATED)2022-04-22 19:48:36* Test Item Value Reference Range Interpretation Comme nts POCT GLU (test code = 3403666778) 154 mg/dL 70-110 H Lab Interpretation (test cod e = 13246-0) Abnormal [facility] GLUCOSE (AUTOMATED)2022-04-22 18:44:52* Test Item Value Reference Range Interpretation Comme nts POCT GLU (test code = 3513715094) 146 mg/dL 70-110 H Lab Interpretation (test cod e = 46643-9) Abnormal [facility] GLUCOSE (AUTOMATED)2022-04-22 17:28:16* Test Item Value Reference Range Interpretation Comme nts POCT GLU (test code = 7782862644) 148 mg/dL 70-110 H Lab Interpretation (test cod e = 41775-1) Abnormal [facility] Metabolic Panel (Na, K, Cl, CO2, Glucose, BUN, Creatinine, Ca)2022-04-22 16:11:05* Test Item Value Reference Range Interpretation Comme [facility] NA (test code = 7658554969) 134 mmol/L 135-145 L K (test code = 4399192116) 3.8 mmol/L 3.5-5.0 CL (test code = 5928436730) 106 mmol/L 98-108 CO2 TOTAL (test code = 5156068314) 15 mmol/L 23-31 L AGAP (test code = 4564399343) 2-16 BUN (test code = 3019431402) 4 mg/dL 7-23 L GLUCOSE (test code = 5369394532) 179 mg/dL 70-110 H CREATININE (test code = 4400674543) 0.68 mg/dL 0.60-1.25 CALCIUM (test code = 1182059295) 8.5 mg/dL 8.6-10.6 L eGFR (test code = 3579794932) mL/min/1.73m2 ZULEIMA (test code = ZULEIMA) Association [...] imaging tests). Lab Interpretation (test code = 05596-5) Abnormal [facility] [place]20[place]22 16:10:40* Test Item Value Reference Range Interpretation Comme [facility] POCT GLU (test code = 8949859220) 157 mg/dL 70-110 H Lab Interpretation (test cod e = 66283-8) [facility]normal [facility] [id number] 15:48:43* Test Item Value Reference Range Interpretation Comme [facility] WBC (test code = 6690-2) See_Comment [Automated [employer] The system which generated this result [...] 33.7 g/dL 31.2-35.0 RDW-SD (test code = 20591-8) 38.5 fL 38.5-51.6 RDW-CV (test code = 788-0) 12.4 % 12.1-15.4 PLT (test code = 777-3) See_Comment [Automated [employer] The system which generated this result transmitted reference range: 150 - 328 10*3/?L. The reference range was not used to interpret this result as normal/abnormal. MPV (test code = 01313-2) 9.2 fL 9.8-13.0 L NRBC/100 WBC (test code = 8899320016) See_Comment [Automated me ssage] The system which generated this result transmitted reference range: 0.0 - 10.0 /100 WBCs. The reference range was not used to interpret this result as normal/abnormal. NRBC x10^3 (test code = 9394117471) <0.01 See_Comment [Automated messa ge] The system which generated this result transmitted reference range: 10*3/?L. The reference range was not used to interpret this result as normal/abnormal. GRAN MAT (NEUT) % (test code = 770-8) 69.0 % IMM GRAN % (test code = 8216867091) 0.40 % LYMPH % (test code = 736-9) 18.9 % MONO % (test code = 5905-5) 9.1 % EOS % (test code = 713-8) 2.0 % BASO % (test code = 706-2) 0.6 % GRAN MAT x10^3(ANC) (test code = 0418222546) 6.20 10*3/uL 1.99-6.95 IMM GRAN x10^3 (test code = 8240889096) 0.04 10*3/uL 0.00-0.06 LYMPH x10^3 (test code = 731-0) 1.70 10*3/uL 1.09-3.23 MONO x10^3 (test code = 742-7) 0.82 10*3/uL 0.36-1.02 EOS x10^3 (test code = 711-2) 0.18 10*3/uL 0.06-0.53 BASO x10^3 (test code = 704-7) 0.05 10*3/uL 0.01-0.09 Lab Interpretation (test code = 77456-3) Abnormal [facility] GLUCOSE (AUTOMATED)2022-04-22 14:27:15* Test Item Value Reference Range Interpretation Comme nts POCT GLU (test code = 7211740302) 150 mg/dL 70-110 H Lab Interpretation (test cod e = 26564-0) Abnormal [facility] GLUCOSE (AUTOMATED)2022-04-22 13:41:45* Test Item Value Reference Range Interpretation Comme nts POCT GLU (test code = 2357075783) 149 mg/dL 70-110 H Lab Interpretation (test cod e = 83087-0) Abnormal [facility] GLUCOSE (AUTOMATED)2022-04-22 12:29:18* Test Item Value Reference Range Interpretation Comme nts POCT GLU (test code = 7485759080) 174 mg/dL 70-110 H Lab Interpretation (test cod e = 38146-6) Abnormal [facility] GLUCOSE (AUTOMATED)2022-04-22 11:33:37* Test Item Value Reference Range Interpretation Comme [facility] POCT GLU (test code = 3859680887) 159 mg/dL 70-110 H Lab Interpretation (test cod e = 13444-4) Abnormal [facility] Metabolic Panel (Na, K, Cl, CO2, Glucose, BUN, Creatinine, Ca)2022-04-22 11:30:20* Test Item Value Reference Range Interpretation Comme [facility] NA (test code = 6362161727) 133 mmol/L 135-145 L K (test code = 0214905072) 3.3 mmol/L 3.5-5.0 L CL (test code = 5996400062) 104 mmol/L 98-108 CO2 TOTAL (test code = 9540598164) 14 mmol/L 23-31 L AGAP (test code = 3640407371) 2-16 BUN (test code = 0983087355) 4 mg/dL 7-23 L GLUCOSE (test code = 9596277242) 172 mg/dL 70-110 H CREATININE (test code = 8790026588) 0.77 mg/dL 0.60-1.25 CALCIUM (test code = 8650272650) 8.6 mg/dL 8.6-10.6 eGFR (test code = 8994864312) mL/min/1.73m2 ZULEIMA (test code = ZULEIMA) Association [...] imaging tests). Lab Interpretation (test code = 82797-6) Abnormal [facility] GLUCOSE (AUTOMATED)2022-04-22 10:56:08* Test Item Value Reference Range Interpretation Comme nts POCT GLU (test code = 3490987262) 157 mg/dL 70-110 H Lab Interpretation (test cod e = 17452-5) Abnormal [facility] GLUCOSE (AUTOMATED)2022-04-22 10:56:03* Test Item Value Reference Range Interpretation Comme nts POCT GLU (test code = 3700884924) 96 mg/dL 70-110 Lab Interpretation (test cod e = 48698-8) Normal [facility] GLUCOSE (AUTOMATED)2022-04-22 09:35:36* Test Item Value Reference Range Interpretation Comme nts POCT GLU (test code = 3241983938) 158 mg/dL 70-110 H Lab Interpretation (test cod e = 97867-1) Abnormal [facility] GLUCOSE (AUTOMATED)2022-04-22 08:36:40* Test Item Value Reference Range Interpretation Comme nts POCT GLU (test code = 1129408490) 166 mg/dL 70-110 H Lab Interpretation (test cod e = 27958-1) [facility]normal [facility] (Na, K, Cl, CO2, Glucose, BUN, Creatinine, Ca)2022-04-22 08:00:14* Test Item Value Reference Range Interpretation Comme nts NA (test code = 6841024832) 133 mmol/L 135-145 L K (test code = 2583021824) 3.6 mmol/L 3.5-5.0 CL (test code = 3651462485) 103 mmol/L 98-108 CO2 TOTAL (test code = 3679467764) 14 mmol/L 23-31 L AGAP (test code = 6000449650) 2-16 BUN (test code = 0016860236) 5 mg/dL 7-23 L GLUCOSE (test code = 5820952626) 172 mg/dL 70-110 H CREATININE (test code = 9108636451) 0.85 mg/dL 0.60-1.25 CALCIUM (test code = 5190154628) 9.0 mg/dL 8.6-10.6 eGFR (test code = 5342413054) mL/min/1.73m2 ZULEIMA (test code = ZULEIMA) Association [...] imaging tests). Lab Interpretation (test code = 92325-1) Abnormal [facility] RockwallOsmolality [id number] 07:46:08* Test Item Value Reference Range Interpretation Comme nts OSMOLALITY (test code = 2692-2) See_Comment [Automated messa ge] The system which generated this result transmitted reference range: 278 - 305 mOsm/kg. The reference range was not used to interpret this result as normal/abnormal. Lab Interpretation (test code = 34129-4) Normal [facility] GLUCOSE (AUTOMATED)2022-04-22 07:36:29* Test Item Value Reference Range Interpretation Comme nts POCT GLU (test code = 0455190344) 144 mg/dL 70-110 H Lab Interpretation (test cod e = 80148-6) Abnormal [facility] GLUCOSE (AUTOMATED)2022-04-22 07:36:29* Test Item Value Reference Range Interpretation Comme nts POCT GLU (test code = 7760716220) 168 mg/dL 70-110 H Lab Interpretation (test cod e = 85791-5) Abnormal [facility] RockwallBetahydroxy-[id number] 07:26:24* Test Item Value Reference Range Interpretation Comme nts BOH (test code = 8305611520) 3.1 mmol/L ZULEIMA (test code = ZULEIMA) Normal Ranges: ? ? Nonfasting ? Less than 0.1 mmol/L ? ? Overnight Fast ? ? ? Less than 0.4 mmol/L ? ? Fasting (1-2 weeks) ?6-8 mmol/L Test developed and characteristics determined by [facility] Laboratory Services. [facility] GLUCOSE (AUTOMATED)2022-04-22 06:32:35* Test Item Value Reference Range Interpretation Comme nts POCT GLU (test code = 7253607052) 155 mg/dL 70-110 H Lab Interpretation (test cod e = 83380-9) [facility]normal [facility] Met[facility] (Na, K, Cl, CO2, Glucose, BUN, Creatinine, Ca)2022-04-22 06:02:22* Test Item Value Reference Range Interpretation Comme nts NA (test code = 5916660124) 134 mmol/L 135-145 L K (test code = 5735928567) 3.6 mmol/L 3.5-5.0 CL (test code = 7301772753) 104 mmol/L 98-108 CO2 TOTAL (test code = 8244405667) 11 mmol/L 23-31 L AGAP (test code = 1445524902) 2-16 H BUN (test code = 4584843529) 7 mg/dL 7-23 GLUCOSE (test code = 3835147155) 177 mg/dL 70-110 H CREATININE (test code = 3400968245) 0.81 mg/dL 0.60-1.25 CALCIUM (test code = 7164450171) 9.0 mg/dL 8.6-10.6 eGFR (test code = 7960887068) mL/min/1.73m2 ZULEIMA (test code = ZULEIMA) Association [...] imaging tests). Lab Interpretation (test code = 99895-7) Abnormal [facility] GLUCOSE (AUTOMATED)2022-04-22 04:35:23* Test Item Value Reference Range Interpretation Comme nts POCT GLU (test code = 0864595099) 154 mg/dL 70-110 H Lab Interpretation (test cod e = 63597-3) Abnormal [facility] GLUCOSE (AUTOMATED)2022-04-22 03:44:33* Test Item Value Reference Range Interpretation Comme [facility] POCT GLU (test code = 9465161911) 166 mg/dL 70-110 H Lab Interpretation (test cod e = 66609-7) Abnormal [facility] RockwallLadcic Acid Whole [id number] 03:11:51* Test Item Value Reference Range Interpretation Comme [facility] LACTIC ACID (test code = 3940919751) 2.04 mmol/L 0.50-2.20 Lab Interpretation (test cod e = 64307-1) Normal [facility] Metabolic Panel (Na, K, Cl, CO2, Glucose, BUN, Creatinine, Ca)2022-04-22 02:17:22* Test Item Value Reference Range Interpretation Comme nts NA (test code = 2221944089) 134 mmol/L 135-145 L K (test code = 3103562166) 4.3 mmol/L 3.5-5.0 CL (test code = 7827108574) 101 mmol/L 98-108 CO2 TOTAL (test code = 7406361854) 10 mmol/L 23-31 L AGAP (test code = 7420854565) 2-16 H BUN (test code = 6541001987) 8 mg/dL 7-23 GLUCOSE (test code = 1749534105) 128 mg/dL 70-110 H CREATININE (test code = 1857130917) 0.92 mg/dL 0.60-1.25 CALCIUM (test code = 1219617199) 9.2 mg/dL 8.6-10.6 eGFR (test code = 1910937566) mL/min/1.73m2 ZULEIMA (test code = ZULEIMA) Association [...] imaging tests). Lab Interpretation (test code = 50835-0) Abnormal [facility] GLUCOSE (AUTOMATED)2022-04-22 02:16:37* Test Item Value Reference Range Interpretation Comme [facility] POCT GLU (test code = 9852094253) 132 mg/dL 70-110 H Lab Interpretation (test cod e = 97536-9) Abnormal [facility] GLUCOSE (AUTOMATED)2022-04-22 01:19:28* Test Item Value Reference Range Interpretation Comme [facility] POCT GLU (test code = 7810753630) 142 mg/dL 70-110 H Notified Provide r Lab Interpretation (test code = 78173-9) Abnormal [facility] RockwallGlycosylated Hemoglobin (A1C)2022-04-22 01:01:17* Test Item Value Reference Range Interpretation Comme [facility] HGB A1C (test code = 4548-4) 10.5 % 4.0-5.7 H ZULEIMA (test code = ZULEIMA) Reference RangesNormal: <5.7%Prediabetes: 5.7 - 6.4%Diabetes: > 6.5% Lab Interpretation (test code = 48587-9) Abnormal [facility] RockwallMagnesium [id number] 00:42:52* Test Item Value Reference Range Interpretation Comme nts MAGNESIUM (test code = 7997430570) 1.9 mg/dL 1.7-2.4 Lab Interpretation (test cod e = 47875-2) Normal [facility] RockwallPhosphorus [id number] 00:42:32* Test Item Value Reference Range Interpretation Comme nts PHOSPHORUS (test code = 2542287072) 5.1 mg/dL 2.5-5.0 H Lab Interpretation (test cod e = 72605-4) Abnormal [facility]wallAC PANEL 21 + LACTIC [id number] 00:14:12* Test Item Value Reference Range Interpretation Comme nts PH (test code = 5897498217) 7.32-7.42 L PCO2 SAKINA (test code = 7686628296) See_Comment L [Automated messa ge] The system which generated this result transmitted reference range: 41 - 51 mmHg. The reference range was not used to interpret this result as normal/abnormal. PO2 SAKINA (test code = 8042371591) See_Comment H [Automated messa ge] The system which generated this result transmitted reference range: 25 - 40 mmHg. The reference range was not used to interpret this result as normal/abnormal. HCO3 SAKINA (test code = 2414760902) See_Comment L [Automated messa ge] The system which generated this result transmitted reference range: 24 - 28 mEq/L. The reference range was not used to interpret this result as normal/abnormal. AC VBE(BEAKER) (test code = 5656637137) mEq/L THB SAKINA (test code = 1277066011) 16.5 g/dL 13.5-18.0 %O2HB SAKINA (test code = 5837726123) 84.9 % 52.0-63.0 H %COHB SAKINA (test code = 0636635245) 0.3 % 0.0-1.5 %METHB SAKINA (test code = 7371626979) 0.1 % 0.4-1.5 L VOL%O2 SAKINA (test code = 3778217002) 19.6 % 6.0-12.0 H NA (test code = 2967914367) 134 mmol/L 135-145 L K+ (test code = 7912979668) 3.7 mmol/L 3.5-5.0 AC CA IONZ (test code = 9640745173) 5.30 mg/dL 4.50-5.30 GLUCOSE (test code = 4955875306) 155 mg/dL 70-110 H LACTIC ACID (test code = 7222827088) 2.34 mmol/L 0.50-2.20 H Lab Interpretation (test code = 18071-2) Abnormal [facility] RockwallTROPONIN [id number] 23:48:43* Test Item Value Reference Range Interpretation Comments TROPONIN I (test code = 8904724917) 0.002 ng/mL See_Comment [Automated message] The system [...] of biotin. Lab Interpretation (test code = 76330-1) Normal [facility] RockwallN-TERMINAL HYT-[id number] 23:45:26* Test Item Value Reference Range Interpretation Comme nts NT-proBNP (test code = 1580818842) 38 pg/mL See_Comment [Automated message] The system which generated this result transmitted reference range: <=125. The reference range was not used to interpret this result as normal/abnormal. ZULEIMA (test code = ZULEIMA) Biotin has been reported to cause a negative bias, interpret results relative to patient's use of biotin. Lab Interpretation (test code = 12536-4) Normal [facility] RockwallCOMP. METABOLIC PANEL (66869)2022-04-21 23:45:16* Test Item Value Reference Range Interpretation Comme nts NA (test code = 2185408435) 134 mmol/L 135-145 L K (test code = 8684551306) 4.3 mmol/L 3.5-5.0 CL (test code = 4131616387) 100 mmol/L 98-108 CO2 TOTAL (test code = 6667999064) 8 mmol/L 23-31 L AGAP (test code = 6241954187) 2-16 H BUN (test code = 8757127823) 8 mg/dL 7-23 GLUCOSE (test code = 5638753978) 169 mg/dL 70-110 H CREATININE (test code = 4706676046) 0.93 mg/dL 0.60-1.25 TOTAL BILI (test code = 1433135286) 1.1 mg/dL 0.1-1.1 CALCIUM (test code = 2396916762) 9.8 mg/dL 8.6-10.6 T PROTEIN (test code = 0474172983) 8.2 g/dL 6.3-8.2 ALBUMIN (test code = 4648435633) 5.0 g/dL 3.5-5.0 ALK PHOS (test code = 9580771809) 106 U/L 34-122 ALTv (test code = 1742-6) 64 U/L 5-50 H AST(SGOT) (test code = 6921516235) 47 U/L 13-40 H eGFR (test code = 0092849289) mL/min/1.73m2 ZULEIMA (test code = ZULEIMA) Association [...] imaging tests). Lab Interpretation (test code = 26016-4) Abnormal [facility]wallLIPASE2022-05-23 23:37:42* Test Item Value Reference Range Interpretation Comme nts LIPASE (test code = 6358058882) 106 U/L 0-220 Lab Interpretation (test cod e = 70727-9) Normal [facility] RockwallPROTHROMBIN TIME / [id number] 23:30:44* Test Item Value Reference Range Interpretation Comme nts PROTIME PATIENT (test code = 5964-2) See_Comment [Automated [employer] The system which generated this result transmitted reference range: 12.0 - 14.7 Seconds. The reference range was not used to interpret this result as normal/abnormal. INR (test code = 6301-6) Normal INR <1.1; Warfarin Therapeutic range 2.0 to 3.0 or 2.5 to 3.5, depending upon the indications. Lab Interpretation (test code = 21045-2) Normal [facility]wallCBC WITH [id number] 23:22:44* Test Item Value Reference Range Interpretation Comme nts WBC (test code = 6690-2) See_Comment H [Automated [employer] The system which generated this result transmitted reference range: 4.20 - 10.70 10*3/?L. The reference range was not used to interpret this result as normal/abnormal. RBC (test code = 789-8) See_Comment H [Automated [employer] The system which generated this result [...] 33.4 g/dL 31.2-35.0 RDW-SD (test code = 65780-2) 38.3 fL 38.5-51.6 L RDW-CV (test code = 788-0) 12.3 % 12.1-15.4 PLT (test code = 777-3) See_Comment H [Automated messa ge] The system which generated this result transmitted reference range: 150 - 328 10*3/?L. The reference range was not used to interpret this result as normal/abnormal. MPV (test code = 19272-7) 9.2 fL 9.8-13.0 L NRBC/100 WBC (test code = 8757829802) See_Comment [Automated [employer] ssage] The system which generated this result transmitted reference range: 0.0 - 10.0 /100 WBCs. The reference range was not used to interpret this result as normal/abnormal. NRBC x10^3 (test code = 7061845201) <0.01 See_Comment [Automated messa ge] The system which generated this result transmitted reference range: 10*3/?L. The reference range was not used to interpret this result as normal/abnormal. GRAN MAT (NEUT) % (test code = 770-8) 62.0 % IMM GRAN % (test code = 6110701406) 0.30 % LYMPH % (test code = 736-9) 29.7 % MONO % (test code = 5905-5) 6.5 % EOS % (test code = 713-8) 0.9 % BASO % (test code = 706-2) 0.6 % GRAN MAT x10^3(ANC) (test code = 4809448083) 7.25 10*3/uL 1.99-6.95 H IMM GRAN x10^3 (test code = 7674644268) 0.04 10*3/uL 0.00-0.06 LYMPH x10^3 (test code = 731-0) 3.48 10*3/uL 1.09-3.23 H MONO x10^3 (test code = 742-7) 0.76 10*3/uL 0.36-1.02 EOS x10^3 (test code = 711-2) 0.11 10*3/uL 0.06-0.53 BASO x10^3 (test code = 704-7) 0.07 10*3/uL 0.01-0.09 Lab Interpretation (test code = 88458-2) Abnormal [facility]wallALBUMIN/CREATININE RATIO, URINE, RANDOM 2022-03-11 01:57:25* Test Item Value Reference Range Interpretation Comme nts CREATININE, URINE, RANDOM (test code = 2072) 61.2 MG/DL NOT ESTAB ALBUMIN, URINE, RANDOM (test code = 53718) <0.2 MG/DL NOT ESTAB CALC ALBUMIN/CREAT, RND (test code = 98033) <3 MG/G <30 Note: Albumin/Creatinine ratio reference interval reflects ADA and NKF guidelines. COMPREHENSIVE METABOLIC [id number] 00:29:28* Test Item Value Reference Range Interpretation Comme nts GLUCOSE (test code = 2217) 413 MG/DL 70-99 H BUN (test code = 2208) 14 MG/DL 6-20 CREATININE (test code = 2214) 0.81 MG/DL 0.80-1.40 eGFR (2020 CKD-EPI) (test code = 56239) 107 ML/MIN/1.73 >60 CALC BUN/CREAT (test code = 2235) 17 RATIO 6-28 SODIUM (test code = 2230) 138 MEQ/L 133-146 POTASSIUM (test code = 8) 4.2 MEQ/L 3.5-5.4 CHLORIDE (test code = 5) 96 MEQ/L 95-107 CARBON DIOXIDE (test code = 6) 24 MEQ/L 19-31 CALCIUM (test code = 9) 9.8 MG/DL 8.5-10.5 PROTEIN, TOTAL (test code = 2229) 7.1 G/DL 6.1-8.3 ALBUMIN (test code = 2201) 4.2 G/DL 3.5-5.2 CALC GLOBULIN (test code [...] = 2219) 54 U/L 5-50 H LIPID [id number] 00:29:28* Test Item Value Reference Range Interpretation [...] SPECIMENS. FOR MOREINFORMATION, SEE CLIENT ANNOUNCEMENT AT [email or web address] RISK RATIO LDL/HDL (test code = 2238) 2.33 RATIO <3.55 HEMOGLOBIN [id number] 03:12:57* Test Item Value Reference Range Interpretation Comme nts HEMOGLOBIN A1c (test code = 46317) 11.3 % 4.2-5.6 H [employer] GUIDELINES FOR HGB A1C: [...] CONSULTATION. UNLESS OTHERWISE INDICATED, ALL TESTING PERFORMED [facility] [address] [place] [address] SENIOR GRADUATE ADVISOR: MELECIO GREEN M.D. [place] NUMBER [id number] [facility] [place]. [id number] COMPREHENSIVE METABOLIC [id number] 04:51:05* Test Item Value Reference Range Interpretation Comme nts GLUCOSE (test code = 2216) 299 MG/DL 70-99 H BUN (test code = 2207) 15 MG/DL 6-20 CREATININE (test code = 221) 0.67 MG/DL 0.80-1.40 L eGFR (2020 CKD-EPI) (test code = 31585) 114 ML/MIN/1.73 >60 CALC BUN/CREAT (test code [...] = 2219) 76 U/L 5-50 H LIPID [id number] 04:51:05* Test Item Value Reference Range Interpretation [...] SPECIMENS. FOR MOREINFORMATION, SEE CLIENT ANNOUNCEMENT AT [email or web address] RISK RATIO LDL/HDL (test code = 2238) 1.47 RATIO <3.55 UNLESS OTHERW ISE INDICATED, ALL TESTING PERFORMED [facility] [address] [place] [address] SENIOR GRADUATE ADVISOR: MELECIO GREEN M.D. CLIA NUMBER [id number] [facility] [place]. [id number] HEMOGLOBIN [id number] 02:53:45* Test Item Value Reference Range Interpretation Comme nts HEMOGLOBIN A1c (test code = 87345) 10.6 % 4.2-5.6 H [employer] GUIDELINES FOR HGB A1C: [...] Notes Date/Time Note Provider Source 2024-02-26 11:00:16 Associated Order(s): CONSULT ADULT PHYSICAL THERAPY Patient agreeable to working with physical therapy. Patient met semi reclined in bed. Recommend nursing staff utilize min A for safety purposes to safely assist patient with mobility out of the bed or chair. Pt has decreased Sp O2 upon standing. PHYSICAL THERAPY EVALUATION Consult received, chart reviewed and evaluation complete this date. Patient is referred to PT for evaluation and treatment. Patient is a 53 year old male who presents to hospital for Fatigue, unspecified type [R53.83] . Discharge Recommendations: Therapy Needs and Potential: Patient would benefit from continued physical therapy services to address: decreased strength decreased endurance Challenges to Home Transition: increased risk of falls Equipment recommendations: Patient has or access to necessary equipment Current Functional Status and/or Treatment: AM-PAC 6 Clicks (Raw Score 0=Dependent, 24=Independent; Low function Raw Score 0= Dependent, 32=Independent): Raw Score - Basic Mobility : 20 T-Scale Score - Basic Mobility : 43.99 Bed Mobility: Rolling: Independent Dizziness No Transfers: Sit to stand: Independent using no device. Stand to sit: Independent using no device. Educated on pushing up on stable surface Dizziness Yes. Pt reported feeling dizzy at EOB. SpO2 90%. Ambulation: Assisted patient with ambulation as follows: 10 feet using rolling Walker. and Supervision. For safety purposes. Pt SpO2 ranged from 85-87% with ambulation. Educated on deep breathing when ambulating. Dizziness Yes Therapeutic exercise: patient educated in Fall prevention and General strengthening. After session, patient up in chair. Call button provided. PLAN OF CARE: While in the hospital, PT will follow patient at least 2 times per week,once or twice a day, per patient's tolerance and needs. See below for complete details. Admit Date: 02/24/2024 Hospital Diagnosis:Fatigue, unspecified type [R53.83] PT Diagnosis: Difficulty walking, Weakness, and Malaise/fatigue Weight Bearing Precaution: WBAT General Precautions: Fall, Pulmonary,oxygen: Nasal canula 3 L O2 Bracing/Cast present or required:N/A PMH: Past Medical History: Diagnosis Date GERD (gastroesophageal reflux disease) Hyperlipemia CHAPARRO on CPAP PAF (paroxysmal atrial fibrillation) Secondary hypertension Type 1 diabetes mellitus with other specified complication PSH: Past Surgical History: Procedure Laterality Date OTHER finger surgery Prior Living Situation: lives with their spouse and in a apartment DME: No device Prior level of Mobility: community ambulation, house hold ambulation Suspected ischemic or hemorraghic stroke:No Subjective: Pt came into the hospital due to shortness of breath and feeling fatigued. He also stated he has not been able to eat anything for 2 weeks due to feeling nauseous and the smell of the food makes it want to vomit. He has not eaten anything since being in the hospital. Patient/Family Goals: Be able to go home. Patient/Family verbalizes understanding of condition: Yes PAIN: denies pain before and after session COMMUNICATION Primary Language: Greek Able to Verbalize needs: Yes Vision:good; no issues reported Hearing:good; no issues reported ORIENTATION/COGNITION: Oriented to: person, place, date/time, and situation Awake: Yes Alert: Yes Dizzy: Yes Follows Commands: Yes 1-Step Yes Multi-Step Yes Inconsistent: No NEUROLOGICAL Light Touch: within functional limits bilateral LE BALANCE: Sitting: Static: Good Dynamic: Good Standing: Static: Good Dynamic: Good RANGE OF MOTION: within functional limits bilateral LE STRENGTH: 4/5 (Good), bilateral LE ENDURANCE: Fair+, Nasal canula 3 L O2 SKIN INTEGRITY: intact PROBLEM LIST: Decreased strength and Decreased endurance ASSESSMENT: Patient is a 53 year old male seen secondary to the above listed diagnosis. Patient would benefit from continued PT to address the above listed deficits to maximize independence and safety with functional mobility. Rehabilitation Potential: good Goals: The following goals are to maximize independence and safety with functional mobility to eventually return to prior living situation and prior functional status. Upon discharge, patient and/or family will demonstrate the followin. Independent with ambulation, Feet: 100 using least assistive device. Treatment Plan: Gait training, Therapeutic exercise, Balance training, and Safety education, patient/caregiver education PATIENT EDUCATION: Patient provided with preferred teaching of verbal information on role of PT, plan of care. Shows readiness to learn. Verbal instruction teaching provided. Individual is able to read and verbalizes understanding of teaching provided and accurately returns demonstration of skill. Total Time Tx Codes in Minutes: 15 min Total Treatment Time in Minutes: 20 min Frida Childress PT [place] PT License [id number] Formerly [facility], [facility]–1983 Rehabilitation Services Department (phone) (fax) Frida Childress PT [facility] History and Physical Notes Date/Time Note Provider Source 2024-02-24 15:13:16 [facility] Hospitalist Admission H&P Date of Service: 02/24/2024 CHIEF COMPLAINT: Fatigue and weakness HISTORY OF PRESENT ILLNESS Leandro Lehman is a 53 year old male with history of insulin-dependent diabetic, HTN, CAD, UT in 10/22, proximal A-fib, GERD, chronic hypoxic [...] Hospitalist consulted for inpatient admission and further evaluation. PAST MEDICAL HISTORY Past Medical History: Diagnosis Date GERD (gastroesophageal reflux disease) Hyperlipemia CHAPARRO on CPAP PAF (paroxysmal atrial fibrillation) Secondary hypertension Type 1 diabetes mellitus with other specified complication PAST SURGICAL HISTORY Past Surgical History: Procedure Laterality Date OTHER finger surgery ALLERGIES Allergies Allergen Reactions Empagliflozin Other - See comments DKA MEDICATIONS Current home medication list reviewed: Current Discharge Medication List STOP taking these medications atorvastatin (LIPITOR) 40 mg tablet Comments: Reason for Stopping: glipiZIDE 5 mg tablet Comments: Reason for Stopping: insulin detemir (LEVEMIR U-100 INSULIN SC) Comments: Reason for Stopping: insulin regular human (HUMULIN R) 500 unit/mL injection Comments: Reason for Stopping: metFORMIN 1,000 mg tablet Comments: Reason for Stopping: METOPROLOL SUCCINATE ORAL Comments: Reason for Stopping: riobs-8-ads-min-qsv-pazw oil (OMEGA-3 2100) 1,050-1,200 mg Cap Comments: Reason for Stopping: pantoprazole 40 mg EC tablet Comments: Reason for Stopping: spironolactone 25 mg tablet Comments: Reason for Stopping: aspirin 81 mg chewable tablet Comments: Reason for Stopping: ondansetron (ZOFRAN ODT) 4 mg disintegrating tablet Comments: Reason for Stopping: FAMILY HISTORY Family History Problem Relation Age of Onset Diabetes Mother SOCIAL HISTORY Social History Socioeconomic History Marital status: Tobacco Use Smoking status: Former Types: Cigarettes Quit date: 1999 Years since quittin.2 Passive exposure: Never Smokeless tobacco: Never Substance and Sexual Activity Alcohol use: Not Currently Drug use: Not Currently REVIEW OF SYSTEMS Constitutional: positive chills, fever Eyes: negative acute blurry vision, eye discharge Ears, Nose, Mouth, Throat: negative dysphagia, runny nose, sore throat, tinnitus Cardiovascular: negative chest pain, paplitaitons Respiratory: negative sob, cough Gastrointestinal: Positive for abd pain, nausea, vomiting Genitourinary: Negative dysuria, hematuria Musculoskeletal: negative calf pain, swelling Integumentray: negative rash, itching Neurological: weakness Psychiatric: negative hallucinations PHYSICAL EXAMINATION BP 131/74 | Pulse 89 | Temp 35.8 ?C (96.5 ?F) | Resp 19 | Ht 1.702 m (5' 7") | Wt 121.2 kg (267 lb 3.2 oz) | SpO2 96% | BMI 41.85 kg/m? General: No acute distress HEENT: Normal oral mucosa, anicteric sclerae, NCAT Cardiovascular: RRR, strong symmetric radial pulses Lungs: CTAB Abdomen: obese, distended, NTND Musculoskeletal: Normal ROM, normal muscle mass Genitourinary: Normal Skin: No rash, lesions Neuro: AAOx3, no focal deficits Psych: Normal affect LABS - reviewed pertinent labs as below: CBC BMP PT/INR WBC (10*3/?L) Date Value 02/24/2024 7.53 NA (mmol/L) Date Value 02/24/2024 132 (L) No results found for: "PT" RBC (10*6/?L) Date Value 02/24/2024 4.82 K (mmol/L) Date Value 02/24/2024 3.1 (L) INR (no units) Date Value 09/04/2022 0.9 PLT (10*3/?L) Date Value 02/24/2024 363 (H) CALCIUM (mg/dL) Date Value 02/24/2024 9.5 HGB (g/dL) Date Value 02/24/2024 14.0 CL (mmol/L) Date Value 02/24/2024 94 (L) aPTT HCT (%) Date Value 02/24/2024 41.7 BUN (mg/dL) Date Value 02/24/2024 7 APTT Patient (Seconds) Date Value 09/03/2022 22 (L) CREATININE (mg/dL) Date Value 02/24/2024 1.06 IMAGING - reviewed, pertinent results as below: Hospital Encounter on 02/24/24 CT ABDOMEN PELVIS W CONTRAST Narrative EXAM: CT ABDOMEN AND PELVIS WITH CONTRAST HISTORY: 53 years-old Male presenting with Nausea/vomiting COMPARISON: CT abdomen pelvis 11/05/2022 ultrasound abdomen 11/18/2022 TECHNIQUE AND FINDINGS: Contiguous axial imaging from the level of the lung bases through the proximal thighs was performed after the administration of intravenous contrast. Coronal and sagittal reconstructions were obtained. Auto mA and/or iterative reconstruction were used to reduce radiation dose. FINDINGS: LOWER THORAX: Bilateral subtle chronic atelectasis or scarring from prior infection. No cardiomegaly. LIVER:Hepatomegaly and diffuse hypoattenuation of parenchyma. No focal hepatic lesions. Normal contour. GALLBLADDER AND BILIARY TREE: No biliary ductal dilation. Elongated gallbladder with an 8 mm moderately dependent hyperdensity thought to be gallstones. No pericholecystic inflammatory changes. SPLEEN: No splenomegaly. PANCREAS: Normal in appearance. No ductal dilation or masses. ADRENAL GLANDS: No adrenal nodules. KIDNEYS: Normal appearance and enhancement. No hydronephrosis, stones, or masses. PERITONEUM AND RETROPERITONEUM: No free air or fluid. LYMPH NODES: No lymphadenopathy. GI TRACT: No dilation or wall thickening. The appendix is unremarkable PELVIS/BLADDER: The prostate is unremarkable. The urinary bladder is completely decompressed. Bladder wall thickening is noted. VESSELS: A celiomesenteric trunk is noted. BONES AND SOFT TISSUES: No suspicious lytic or sclerotic bony lesions. Impression 1. Bladder wall thickening, may be artifactual from under distention or secondary to cystitis. 2. Hepatomegaly and hepatic steatosis. 3. Suspected gallstones. No gallbladder inflammatory changes. Preliminary Report Dictated by Resident: Rose Mary Kirby I, Robel Mckeon MD., have reviewed this study and agree with the above report. XR CHEST 1 VW Narrative EXAM: XR CHEST 1 VW COMPARISON: Chest radiograph 11/05/2022 HISTORY: weakness FINDINGS: Lungs: The lungs are clear. and well-expanded. No pleural abnormalities. Heart/Mediastinum: The cardiomediastinal silhouette is normal in size accounting for technique. Bones: No osseous lesions are detected. The soft tissues appear normal Impression No acute cardiopulmonary process. Preliminary Report Dictated by Resident: Azar Bell MD., have reviewed this study and agree with the above report. ASSESSMENT/PLAN Leandro Walters 53 years old male admitted for: Weakness likely due to to recurrent nausea and vomiting may be due to diabetic gastroparesis -- Continue IV Reglan -- Zofran as needed -- Clear liquid, NSAID diet as tolerated -- Continue PPIs Hypokalemia -- K3.1 replace and replete DMT2 A1c 11.5 -- Continue home dose of Levemir 45 units twice daily -- SSI, checks before meals and at bedtime -- Glipizide 5 mg daily -- Holding metformin 1000 mg twice daily while inpatient Chronic respiratory failure --Home O2 3 L NC -- Patient uses CPAP at home HTN/paroxysmal A-fib -- Metoprolol 50 mg twice daily --Lactone 25 mg twice daily -- Patient stated not taking Eliquis Prophylaxis: DVT- enoxaparin Stress Ulcer: pantoprazole Advanced Care Planning (Z71.89) Above assessment and plan discussed at length with patient, patient expressed full understanding. Questions and concerned addressed, I spent 18 minutes discussing the advance care plan. Surrogate decision maker: self Level of care expected after discharge: independent Code status: Full code Smoking Cessation: (Z71.6) Tobacco user?: Former smoker Observation [facility] was viewed during this stay SANTIAGO Reyez Associated attestation - Sachin Mcallister DO - 02/24/2024 8:12 PM CDT I have independently seen and evaluated this patient. I agree with the findings and documentation provided in the nurse practitioner's notes. Medicine team will continue to provide daily care. In summary this is a 53-year-old male with past medical history including diabetes, hypertension, coronary disease status post UT, paroxysmal atrial fibrillation, GERD, chronic hypoxic respiratory failure on 3 L nasal cannula oxygen who presented for generalized weakness with intractable nausea vomiting secondary to suspected diabetic gastroparesis. Continue on Reglan as needed Zofran. Encourage patient to have small frequent meals. Rest of plan events outlined below. Sachin Mcallister DO 02/24/2024 8:11 PM [facility] - Health Notes Date/Time Note Provider Source 2024-03-01 10:34:42 TRANSITIONAL CARE MANAGEMENT ASSESSMENT 03/01/2024 Leandro Lehman [id number] Leandro Giorgi is a 53 year old /White male was admitted on 02/24/[address] [facility], [facility] MED SURG. He was discharged on 02/27/24 with discharge disposition of HR- Routine Discharge. Admitting Physician: Sachin Mcallister Discharge Diagnosis: Weakness Intractable N/V Hypokalemia Uncontrolled DM2 Chronic hypoxic respiratory failure Linked Episodes Type: Episode: Status: Noted: Resolved: Last update: Updated by: TRANSITION OF CARE TCM Active 02/27/2024 02/29/2024 2:06 PM Florence Downs RN Comments:02/27/2024 TCM [id number] outreach documentation: Care Transition CM made f/u call to pt post-discharge x2. No response and call went to voicemail. CM left a discreet message with purpose of call and CM's call back information. Discharge Assessment Chart Assessed: 03/01/24 TCM Outreach Completed: 03/01/24 Future Appointments: Florence Downs RN [facility] 2024-02-29 14:06:15 Care Transition CM made f/u call to pt post-discharge. No response and call went to voicemail. CM left a discreet message with purpose of call and CM's call back information. Florence Downs RN, BSN Physician Pediatrician-Transitions of Care [phone] GI [facility] 2024-02-27 17:14:12 Problem: Discharge Planning Goal: Adequate for discharge 02/27/2024 1714 by Maritza Bui RN Outcome: Adequate for discharge 02/27/2024 1440 by Maritza Bui RN Outcome: Progressing as expected Goal: Effective communication 02/27/2024 171 by Maritza Bui RN Outcome: Adequate for discharge 02/27/2024 1440 by Maritza Bui RN Outcome: Progressing as expected Problem: Nausea/Vomiting Goal: Absence of nausea/vomiting 02/27/2024 171 by Maritza Bui RN Outcome: Adequate for discharge 02/27/2024 1440 by Maritza Bui RN Outcome: Progressing as expected Problem: Pain Goal: Control of pain at or below patient's documented comfort goal 02/27/2024 1714 by Maritza Bui RN Outcome: Adequate for discharge 02/27/2024 1440 by Maritza Bui RN Outcome: Progressing as expected Goal: Reduction in pain sensation 02/27/2024 1714 by Maritza Bui RN Outcome: Adequate for discharge 02/27/2024 1440 by Maritza Bui RN Outcome: Progressing as expected Problem: Falls, Risk of Goal: Absence of falls 02/27/2024 1714 by Maritza Bui RN Outcome: Adequate for discharge 02/27/2024 1440 by Maritza Bui RN Outcome: Progressing as expected Problem: Skin integrity Impaired (Risk or Actual) Goal: Prevention of new skin breakdown 02/27/2024 1714 by Maritza Bui RN Outcome: Adequate for discharge 02/27/2024 1440 by Maritza Bui RN Outcome: Progressing as expected Problem: Respiratory Function - Impaired Goal: Able to cough effectively 02/27/2024 1714 by Maritza Bui RN Outcome: Adequate for discharge 02/27/2024 1440 by Maritza Bui RN Outcome: Progressing as expected Goal: Adequate oxygenation 02/27/2024 1714 by Maritza Bui RN Outcome: Adequate for discharge 02/27/2024 1440 by Maritza Bui RN Outcome: Progressing as expected Goal: Patent airway 02/27/2024 1714 by Maritza Bui RN Outcome: Adequate for discharge 02/27/2024 1440 by Maritza Bui RN Outcome: Progressing as expected Maritza Bui RN [facility] 2024-02-27 14:40:10 Problem: Discharge Planning Goal: Adequate for discharge Outcome: Progressing as expected Goal: Effective communication Outcome: Progressing as expected Problem: Nausea/Vomiting Goal: Absence of nausea/vomiting Outcome: Progressing as expected Problem: Pain Goal: Control of pain at or below patient's documented comfort goal Outcome: Progressing as expected Goal: Reduction in pain sensation Outcome: Progressing as expected Problem: Falls, Risk of Goal: Absence of falls Outcome: Progressing as expected Problem: Skin integrity Impaired (Risk or Actual) Goal: Prevention of new skin breakdown Outcome: Progressing as expected Problem: Respiratory Function - Impaired Goal: Able to cough effectively Outcome: Progressing as expected Goal: Adequate oxygenation Outcome: Progressing as expected Goal: Patent airway Outcome: Progressing as expected [facility] 2024-02-26 16:38:21 Problem: Discharge Planning Goal: Adequate for discharge Outcome: Progressing as expected Goal: Effective communication Outcome: Progressing as expected Problem: Nausea/Vomiting Goal: Absence of nausea/vomiting Outcome: Progressing as expected Problem: Pain Goal: Control of pain at or below patient's documented comfort goal Outcome: Progressing as expected Goal: Reduction in pain sensation Outcome: Progressing as expected Problem: Falls, Risk of Goal: Absence of falls Outcome: Progressing as expected Problem: Skin integrity Impaired (Risk or Actual) Goal: Prevention of new skin breakdown Outcome: Progressing as expected Problem: Respiratory Function - Impaired Goal: Able to cough effectively Outcome: Progressing as expected Goal: Adequate oxygenation Outcome: Progressing as expected Goal: Patent airway Outcome: Progressing as expected [facility] 2024-02-26 01:49:55 Problem: Discharge Planning Goal: Adequate for discharge Outcome: Progressing as expected Goal: Effective communication Outcome: Progressing as expected Problem: Nausea/Vomiting Goal: Absence of nausea/vomiting Outcome: Progressing as expected Problem: Pain Goal: Control of pain at or below patient's documented comfort goal Outcome: Progressing as expected Goal: Reduction in pain sensation Outcome: Progressing as expected Problem: Falls, Risk of Goal: Absence of falls Outcome: Progressing as expected Problem: Skin integrity Impaired (Risk or Actual) Goal: Prevention of new skin breakdown Outcome: Progressing as expected Problem: Respiratory Function - Impaired Goal: Able to cough effectively Outcome: Progressing as expected Goal: Adequate oxygenation Outcome: Progressing as expected Goal: Patent airway Outcome: Progressing as expected T Shashi Saez RN [facility] 2024-02-25 19:27:15 Problem: Discharge Planning Goal: Adequate for discharge Outcome: Progressing as expected Goal: Effective communication Outcome: Progressing as expected Problem: Nausea/Vomiting Goal: Absence of nausea/vomiting Outcome: Progressing as expected Problem: Pain Goal: Control of pain at or below patient's documented comfort goal Outcome: Progressing as expected Goal: Reduction in pain sensation Outcome: Progressing as expected Problem: Falls, Risk of Goal: Absence of falls Outcome: Progressing as expected Problem: Skin integrity Impaired (Risk or Actual) Goal: Prevention of new skin breakdown Outcome: Progressing as expected Maria Esther Camilo RN [facility] 2024-02-25 05:44:32 Problem: Discharge Planning Goal: Adequate for discharge Outcome: Progressing as expected Problem: Nausea/Vomiting Goal: Absence of nausea/vomiting Outcome: Progressing as expected Problem: Pain Goal: Control of pain at or below patient's documented comfort goal Outcome: Progressing as expected Problem: Falls, Risk of Goal: Absence of falls Outcome: Progressing as expected Thursday Darnell MICHEL [facility] 2024-02-24 16:20:12 Problem: Discharge Planning Goal: Adequate for discharge Outcome: Progressing as expected Goal: Effective communication Outcome: Progressing as expected Problem: Nausea/Vomiting Goal: Absence of nausea/vomiting Outcome: Progressing as expected Problem: Pain Goal: Control of pain at or below patient's documented comfort goal Outcome: Progressing as expected Goal: Reduction in pain sensation Outcome: Progressing as expected Problem: Falls, Risk of Goal: Absence of falls Outcome: Progressing as expected [facility] 2024-02-24 12:22:47 Patient admitted to [place] [id number] for diagnosis of fatigue, n/v, hypokalemia, lactic acidosis, DM type 2. Patient agrees to admission, discussed plan of care with patient and family. Patient is awake, alert, oriented, resp reg unlabored, color appropriate for race, PIV intact. No adverse reaction to medications administered while in ED. Belongings with patient to unit. Risa Conde RN [facility] 2024-02-24 12:19:57 Nurse Report Report given to sherman Lorenzo. Chief complaint, assessment findings, infusion verify and orders reviewed. Plan of care discussed. Patient/family members verbalized understanding. Risa Conde RN [facility] 2024-02-24 07:10:01 Report to Cordel Rabia Owusu RN [facility] 2024-02-24 04:02:17 Pt encouraged to give urine sample, states he cannot void at this time. [facility] 2024-02-24 00:55:26 Pt arrived with c/o fatigue, weakness, and dizziness. Pt was seen on Thursday at [facility] for this on Thursday. Pt was swapped for Covid and Flu and had a negative work up. He was given Pepcid and Zofran for symptoms. report he has been in bed for more than a 1 week with these symptoms and has has no relief. 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 Per pt started with these symptoms 10- 11 days ago. reports he is unable to tolerate any food or fluid as he vomits if he tries to eat/drink anything. Pt was seen at [facility] on 02/16/2024 and had work up done including CTAP. Pt was discharged home on zofran and pepcid without improvement in symptoms. denies fever, but has chills. Pt denies noticing blood in vomitus. Denies diarrhea, has small BMs denies chest pain or palpitation reports feeling lightheaded when standing up or walking Pt has history of DM,HTN, CAD with stents, [...] well until he got sick 11 days ago Pt reports medication compliance with his regular medications. History provided by: Patient History limited by: none. knitting supervisor used: No Past Medical History/Immunizations: Past Medical History: Diagnosis Date GERD (gastroesophageal reflux disease) Hyperlipemia CHAPARRO on CPAP PAF (paroxysmal atrial fibrillation) Secondary hypertension Type 1 diabetes mellitus with other specified complication Tetanus received in last 5 years: No Allergies: Allergies Allergen Reactions Empagliflozin Other - See comments DKA Past Social History: Tobacco Use Former; Cigarettes: Quit 1999 Passive Exposure: Never Smokeless Tobacco: Never used smokeless tobacco. Alcohol Use Not Currently. Drug Use Not Currently. Past Surgical History: Past Surgical History: Procedure Laterality Date OTHER finger surgery Review of Systems: Review of Systems Constitutional: Positive for activity change, chills and fatigue. Negative for diaphoresis and fever. HENT: Negative for congestion, ear pain, facial swelling, rhinorrhea, sore throat and trouble swallowing. Eyes: Negative for pain and visual disturbance. Respiratory: Positive for shortness of breath (baseline). Negative for cough and chest tightness. Cardiovascular: Negative for chest pain and leg swelling. Gastrointestinal: Positive for abdominal pain, nausea and vomiting. Negative for blood in stool, constipation and diarrhea. Genitourinary: Negative for dysuria and frequency. Musculoskeletal: Positive for myalgias. Negative for gait problem, joint swelling and neck pain. Skin: Positive for rash. Neurological: Positive for dizziness and light-headedness. Negative for syncope, facial asymmetry, speech difficulty, numbness and headaches. Psychiatric/Behavioral: Negative for behavioral problems and confusion. Physical Exam: ED Triage Vitals [02/24/24 0053] Weight 120 kg (264 lb 9.6 oz) Actual or estimated Actual Height 1.702 m (5' 7") BP 92/65 Pulse 95 Resp 16 Temp 37.5 ?C (99.5 ?F) Temp source Oral SpO2 95 % Measured on Room air Physical Exam Vitals and nursing note reviewed. Constitutional: General: He is not in acute distress. Appearance: Normal appearance. He is morbidly obese. He is not ill-appearing. HENT: Head: Normocephalic and atraumatic. Right Ear: External ear normal. Left Ear: External ear normal. Nose: No congestion. Mouth/Throat: Mouth: Mucous membranes are moist. Pharynx: No oropharyngeal exudate. Eyes: General: No scleral icterus. Conjunctiva/sclera: Conjunctivae normal. Cardiovascular: Rate and Rhythm: Normal rate and regular rhythm. Pulmonary: Effort: Pulmonary effort is normal. Breath sounds: Normal breath sounds. Chest: Chest wall: No tenderness. Abdominal: General: Abdomen is protuberant. There is no distension. Palpations: Abdomen is soft. Tenderness: There is no abdominal tenderness. There is no guarding or rebound. Musculoskeletal: Cervical back: Neck supple. No rigidity. Right lower leg: No edema. Left lower leg: No edema. Skin: General: Skin is warm and dry. Capillary Refill: Capillary refill takes less than 2 seconds. Findings: No rash. Comments: Pt reports rash with itching on abdomen, legs, arms No rash noted on exam. Neurological: Mental Status: He is alert and oriented to person, place, and time. Psychiatric: Mood and Affect: Mood normal. Behavior: Behavior normal. Radiology: XR CHEST 1 VW Preliminary Result EXAM: XR CHEST 1 VW COMPARISON: Chest radiograph 11/05/2022 HISTORY: weakness FINDINGS: Lungs: The lungs are clear. and well-expanded. No pleural abnormalities. Heart/Mediastinum: The cardiomediastinal silhouette is normal in size accounting for technique. Bones: No osseous lesions are detected. The soft tissues appear normal IMPRESSION No acute cardiopulmonary process. Preliminary Report Dictated by Resident: Rose Mary Kirby Lab Results: Lab Results COMP. METABOLIC PANEL ([id number]) - Abnormal Result Value Ref Range NA 132 (*) 135 - 145 mmol/L K 3.1 (*) 3.5 - 5.0 mmol/L CL 94 (*) 98 - 108 mmol/L CO2 TOTAL 26 23 - 31 mmol/L AGAP 12 2 - 16 BUN 7 7 - 23 mg/dL GLUCOSE 235 (*) 70 - 110 mg/dL CREATININE 1.06 0.60 - 1.25 mg/dL TOTAL BILI 0.9 0.1 - 1.1 mg/dL CALCIUM 9.5 8.6 - 10.6 mg/dL T PROTEIN 7.7 6.3 - 8.2 g/dL ALBUMIN 4.1 3.5 - 5.0 g/dL ALK PHOS 113 34 - 122 U/L ALTv 171 (*) 5 - 50 U/L AST(SGOT) 102 (*) 13 - 40 U/L eGFR 84.4 mL/min/1.73m2 CBC WITH DIFF - Abnormal WBC 7.53 4.20 - 10.70 10*3/?L RBC 4.82 4.26 - 5.52 10*6/?L HGB 14.0 12.2 - 16.4 g/dL HCT 41.7 38.4 - 49.3 % MCV 86.5 81.7 - 95.6 fL MCH 29.0 26.1 - 32.7 pg MCHC 33.6 31.2 - 35.0 g/dL RDW-SD 39.2 38.5 - 51.6 fL RDW-CV 12.7 12.1 - 15.4 % PLT 363 (*) 150 - 328 10*3/?L MPV 9.2 (*) 9.8 - 13.0 fL NRBC/100 WBC 0.0 0.0 - 10.0 /100 WBCs NRBC x10 3 <0.01 10*3/?L GRAN MAT (NEUT) % 46.3 % IMM GRAN % 0.30 % LYMPH % 38.2 % MONO % 10.5 % EOS % 3.9 % BASO % 0.8 % GRAN MAT x10 3 (ANC) 3.49 1.99 - 6.95 10*3/uL IMM GRAN x10 3 <0.03 0.00 - 0.06 10*3/uL LYMPH x10 3 2.88 1.09 - 3.23 10*3/uL MONO x10 3 0.79 0.36 - 1.02 10*3/uL EOS x10 3 0.29 0.06 - 0.53 10*3/uL BASO x10 3 0.06 0.01 - 0.09 10*3/uL POCT GLUCOSE (AUTOMATED) - Abnormal POCT GLU 227 (*) 70 - 110 mg/dL AC PANEL 21 + LACTIC ACID - Abnormal PH 7.40 7.32 - 7.42 PCO2 SAKINA 45 41 - 51 mmHg PO2 SAKINA 33 25 - 40 mmHg HCO3 SAKINA 27 24 - 28 mEq/L AC VBE(BEAKER) 1.7 mEq/L THB SAKINA 14.3 13.5 - 18.0 g/dL %O2HB SAKINA 63.8 (*) 52.0 - 63.0 % %COHB SAKINA 0.4 0.0 - 1.5 % %METHB SAKINA 0.0 (*) 0.4 - 1.5 % VOL%O2 SAKINA 12.8 (*) 6.0 - 12.0 % NA 133 (*) 135 - 145 mmol/L K+ 3.1 (*) 3.5 - 5.0 mmol/L AC CA IONZ 4.80 4.50 - 5.30 mg/dL GLUCOSE 235 (*) 70 - 110 mg/dL LACTIC ACID 2.74 (*) 0.50 - 2.20 mmol/L LIPASE - Normal LIPASE 82 0 - 220 U/L TROPONIN I - Normal TROPONIN I 0.005 <=0.034 ng/mL MAGNESIUM - Normal MAGNESIUM 2.0 1.7 - 2.4 mg/dL RAPID INFLUENZA A/B - Normal Rapid Influenza A Negative Negative Rapid Influenza B Negative Negative COVID-19 (ID NOW RAPID TESTING) - Normal SARS-CoV-2 Rapid ID NOW Not Detected Not Detected URINALYSIS N-TERMINAL PRO-BNP EKG: If EKG completed, see Procedure Note. Orders and Treatments: Orders Placed This Encounter Procedures XR CHEST [address] ABDOMEN PELVIS W CONTRAST Complete Metabolic Panel CBC with Differential Lipase, Serum Urinalysis Troponin I Magnesium RAPID INFLUENZA A/B COVID-19 (ID NOW TESTING) POCT GLUCOSE (AUTOMATED) AC Panel 21 + Lactic Acid Lab Only COVID Interpretation N-Terminal Pro-Bnp Orders Placed This Encounter Medications sodium chloride (NS) injection 5 mL NaCl 0.9% (NS) bolus infusion 500 mL FENTanyl PF (SUBLIMAZE (PF)) injection 50 mcg ondansetron (ZOFRAN (PF)) injection 4 mg potassium chloride in water 10 mEq/100 mL RTU 10 mEq NaCl 0.9% (NS) bolus infusion 500 mL First Provider Eval: ED Events Date/Time Event User Comments 02/24/24100 Medical Screening Begins JODY HEARD -- 02/24/24100 First Provider Evaluation JODY HEARD -- ED COURSE 53 y/o male pt presents to ER for evaluation of symptoms described in HPI. Pt is chronically ill appearing, no acute distress, on oxygen by NC at baseline BP 92/65. Reports feeling lightheaded when standing up/walking CBC. CMP, troponin, EKG, UA, flu, covid19, CXR ordered. IVF NS bolus, fentanyl IV and zofran IV. Plan of care discussed with the pt and family Lab results reviewed. CBC - WNL CMP - K 3.1, BUN, cretinine - wnl AGAP and CO2 total - wnl Lactic acid 2.74 Troponin wnl ALT, AST elevated but has improved compared to prior labs in 2021 Flu and covid 19 NEG VBG done, venous pH- wnl, no signs of DKA All results discussed with the pt and spouse IVF NS 500 ml ( 2 nd) and potassium 10 meq IVPB ordered. 0300: Discussed with Dr. Russell, CTAP ordered for evaluation of acute abdomen causing vomiting. All available results discussed with the pt and spouse. 0315: Care transferred to Dr. Russell at shift change pending CTAP, repeat lactic acid, and PO fluid challenge if CTAP negative for acute findings Diagnosis/Impression as of 02/24/24 0632 Fatigue, unspecified type Hypotension, unspecified hypotension type Nausea and vomiting, unspecified vomiting type Hypokalemia Lactic acidosis Body aches Type 2 diabetes mellitus with other specified complication, unspecified whether prison insulin use Intractable nausea and vomiting Procedures: EKG-12 Lead ROUTINE ONCE Date/Time: 02/24/2024 3:32 AM Performed by: Jody Cruz FNP Authorized by: Jody Cruz FNP Interpretation: Interpretation: normal Details: NSR Rate: ECG rate: 81 ECG rate assessment: normal Rhythm: Rhythm: sinus rhythm Ectopy: Ectopy: none QRS: QRS axis: Normal QRS intervals: Normal QRS conduction: normal MDM: Medical Decision Making DDX considered includes but not limited to dehydration, prateek, electrolyte abnormalities, NSTEMI, STEMI, pancreatitis, pneumonia, flu, covid 19, UTI, Intestinal obstruction, DM gastroparesis, Problems Addressed: Body aches: acute illness or injury Fatigue, unspecified type: acute illness or injury Hypokalemia: acute illness or injury Hypotension, unspecified hypotension type: acute illness or injury Details: Improved with IVF bolus Lactic acidosis: acute illness or injury Nausea and vomiting, unspecified vomiting type: acute illness or injury Details: Epic chart review shows pt was admitted to this facility for intractable nausea and vomiting in 2021 and gastroparesis was considered as possible cause Type 2 diabetes mellitus with other specified complication, unspecified whether prison insulin use: chronic illness or injury with exacerbation, progression, or side effects of treatment Amount and/or Complexity of Data Reviewed External Data Reviewed: labs and notes. Details: During admission to hospital in 2021 Labs: ordered. Decision-making details documented in ED Course. Radiology: ordered. Decision-making details documented in ED Course. ECG/medicine tests: ordered. Decision-making details documented in ED Course. Risk Prescription drug management. Parenteral controlled substances. Flowsheet Documentation: Scoring Tools: No data recorded Disposition/Condition: ED Disposition None Discharge Medications: Patient's Medications START taking these medications No medications on file CONTINUE taking these medications which have NOT CHANGED APIXABAN 5 MG TABLET Take 1 tablet by mouth 2 (two) times daily. Indications: atrial fibrillation ASPIRIN 81 MG CHEWABLE TABLET Take 81 mg by mouth daily. INSULIN GLARGINE 100 UNIT/ML INJECTION inject 10 Units under the skin daily. If not eating or if blood sugar is between 80 and 120 give HALF the dose. If blood sugar less than 80: Eat a meal and recheck. Give half dose of insulin once blood sugar over 120. INSULIN REGULAR HUMAN (HUMULIN R) 500 UNIT/ML INJECTION [...] meal and cover again with sliding scale METFORMIN 1,000 MG TABLET Take 1 tablet by mouth 2 (two) times daily with meals. METOPROLOL SUCCINATE ORAL Take 50 mg by mouth 2 (two) times daily. PPREQ-3-HZI-ISC-RMO-XEMA OIL (OMEGA-3 2100) 1,050-1,200 MG CAP Take by mouth 2 (two) times daily. ONDANSETRON (ZOFRAN ODT) 4 MG DISINTEGRATING TABLET Take 1 tablet by mouth every 8 (eight) hours as needed for Nausea and Vomiting (N/V). PANTOPRAZOLE 40 MG EC TABLET Take 40 mg by mouth 2 (two) times daily. SPIRONOLACTONE 25 MG TABLET Take 25 mg by mouth 2 (two) times daily. START taking Modified Medications as Prescribed No medications on file STOP taking these medications No medications on file Follow-up: Electronically signed by: Jody Cruz FNP 02/24/24 0346 Associated attestation - Jasmin Russell MD - 02/24/2024 11:59 PM CDT Addendum I was personally available for consultation in the Emergency Department during this encounter and patient evaluation by SANTIAGO Cruz. [facility] 2023-12-15 15:16:00 [id number] [facility] PATIENT NAME: LEANDRO LEHMAN ADMIT DATE: 11/10/23 ACCOUNT NO: [id number] ROOM NO: .2085 AGE: 53 REPORT TYPE: 360 - QUERY RESPONSE DOCUMENT SEX: M DATE OF : [birth year] ADMITTING PHYSICIAN:Jeremias Ibarra MD ATTENDING PHYSICIAN:Jeremias Ibarra MD Provider Query QUERY TEXT: Condition General 360MD Query related questions should be directed to: [phone] Based on the information in the medical record can you clarify type of pneumonia treated on this admission (i.e. aspiration pneumonia, pseudomonas pneumonia, community acquired pneumonia, unknown or another appropriate option)? The patient's Clinical Indicators include: #Pneumonia Suspect community acquired pneumonia Chest x-ray shows patchy left intersitial infiltrate. Cannot rule out multidrug-resistant organisms such as Pseudomonas given pt's recent hospitalization 1 week ago. Cover for Pseudomonas with IV Zosyn 3.375 mg every 8 hours. DC Summary [id number] Possible aspriation pneumonitis vs pulmonary edema. Pulmonology pns [id number] Options provided: -- Respond - Create new note now -- Dismiss - Not applicable / Not valid -- Dismiss - Clinically unable to determine / Unknown -- Assign to another provider QUERY RESPONSE: Aspiration pneumonia Query created by: Sydnee Rangel on 12/12/2023 9:46 AM at 1516 PATIENT NAME: LEANDRO LEHMAN [facility] 2023-12-12 09:03:00 [id number] [facility] PATIENT NAME: LEANDRO LEHMAN ADMIT DATE: 11/10/23 ACCOUNT NO: [id number] ROOM NO: AGE: 53 REPORT TYPE: 360 - QUERY RESPONSE DOCUMENT SEX: M DATE OF : [birth year] ADMITTING PHYSICIAN:Jeremias Ibarra MD ATTENDING PHYSICIAN:Jeremias Ibarra MD Provider Query QUERY TEXT: POA Indicator 360MD Query related questions should be directed to: [phone] Please indicate if the diagnosis of Sepsis was present on admission? The patient's Clinical Indicators include: The patient has severe sepsis with septic shock. pneumonia. Coding query response [id number] Options provided: -- Yes -- No -- W -- Other - I will add my own diagnosis -- Dismiss - Not applicable / Not valid -- Dismiss - Clinically unable to determine / Unknown -- Assign to another provider QUERY RESPONSE: Sepsis ruled out Query created by: Sydnee Rangel on 2023 9:52 AM at 0903 PATIENT NAME: LEANDRO LEHMAN [facility] 2023-11-19 15:30:00 [phone] [facility] PATIENT NAME: LEANDRO LEHMAN ADMIT DATE: 11/10/23 ACCOUNT NO: [id number] ROOM NO: V.2086 AGE: 52 REPORT TYPE: 360 - QUERY RESPONSE DOCUMENT SEX: M DATE OF : 72 ADMITTING PHYSICIAN:Jeremias Ibarra MD ATTENDING PHYSICIAN:Jeremias Ibarra MD Provider Query QUERY TEXT: Clarification Infectious Status 360MD Query related questions should be directed to:[facility] Coding Query Helpline Based on your clinical judgment, please clarify the condition(s) that represent(s) the clinical indicators listed below. The following definitions are provided based on industry literature and in collaboration with [facility] Clinical Services Group for your reference only: --Localized Infection - An infection that affects only one organ or body part (e.g., UTI, Pneumonia) --Bacteremia - Nonspecific laboratory finding of bacteria in the blood --Sepsis - A presumed or confirmed systemic response to infectious process with >2 clinical indicators such as: Temperature >38.3C or <36.0C, tachycardia, > 20 respiratory rate, WBC >12,000 or < 4,000 or > 10% bands --Severe Sepsis - Sepsis with additional clinical indicators [...] PTT > 60 sec, lactate > 2 mmol/L --Septic Shock - Severe Sepsis with Lactic acid > 4 mmol/L or persistent hypotension The patient's Clinical Indicators include: Hospitalist Discharge Summary REPORT#: [id number] Hospital course: # Acute respiratory failure with hypoxemia secondary to pneumonia Addendum 1: 11/10/23 1645 by Jeremias Ibarra MD #Shock rule out septic shock, remains on Levophed drip- Critical Care Progress Note 11/11/2023 (1) d Last 24 Hrs: Ceftriaxone Options provided: -- Sepsis, Please identify the causative organism if known. -- Severe Sepsis, Please identify the causative organism if known. -- Severe Sepsis with septic shock, Please identify the causative organism if known. -- Localized infection, Please specify the infection and causative organism if known. -- Other - I will add my own diagnosis -- Dismiss - Not applicable / Not valid -- Dismiss - Clinically unable to determine / Unknown -- Assign to another provider QUERY RESPONSE: The patient has severe sepsis with septic shock. pneumonia Query created by: LEXY ALAN on 11/19/2023 12:57 AM at 1530 PATIENT NAME: LEANDRO LEHMAN [facility] 2023-11-18 21:41:00 [facility] ([facility] Nephrology Progress Note REPORT#:[id number] REPORT STATUS: Signed REPORT INITIALIZATION DATE:11/18/23 TIME: 2140 PATIENT: LEANDRO LEHMAN UNIT #: [id number] ROOM/BED: : 71 AGE: 52 SEX: M ATTEND: Jeremias Ibarra MD ADM AUTHOR: Christa Maurer MD REPT SERVICE DT/TIME: 11/18/232140 * ALL edits or amendments must be made on the electronic/computer document * Subjective Chief complaint: SOB HPI: 52-year-old man known to have hypertension who had [...] He endorsed having used Advil or Aleve [id number] for back pain but not more than once or twice a day. 11/18 Patient feeling fine, denying all systemic review. Objective Physical Exam Head/eyes: atraumatic, EOMI ENT: moist mucous membranes, normal nose Neck: no JVD, no lymphadenopathy Cardiovascular: normal heart sounds, regular rate and rhythm Respiratory: aerating well, clear to auscultation Abdomen: non-tender, soft Genitourinary: no bladder distention, no flank pain Extremities: no edema, no gangrene, no swelling Diagnosis, Assessment Plan Free Text A P: 52-year-old man known to have hypertension who had [...] He endorsed having used Advil or Aleve [id number] for back pain but not more than [...] renal dosing of medication. at 2143 RPT #:[id number] [facility] 2023-11-17 22:42:00 [facility] ([facility]) Nephrology Progress Note REPORT#:[id number] REPORT STATUS: Signed REPORT INITIALIZATION DATE:11/17/23 TIME: 2241 PATIENT: LEANDRO LEHMAN UNIT #: [id number] ROOM/BED: [address] : 71 AGE: 52 SEX: M ATTEND: Jeremias Ibarra MD ADM AUTHOR: Christa Maurer MD REPT SERVICE DT/TIME: 11/17/232241 * ALL edits or amendments must be made on the electronic/computer document * Subjective Chief complaint: SOB HPI: 52-year-old man known to have hypertension who had [...] He endorsed having used Advil or Aleve [id number] for back pain but not more than once or twice a day. 11/17 Patient feeling fine, denying all systemic review. Objective General VS/I O: Vital Signs: Date Time Temp Pulse Resp B/P [...] 103/54 70.0 98 PATIENT WEIGHT: Weight (lb): 249 Weight (oz): 9.01 Weight (kg): 113.200 Physical Exam General appearance: alert, awake, oriented Head/eyes: atraumatic, EOMI ENT: moist mucous membranes, normal nose Neck: no JVD, no lymphadenopathy Cardiovascular: normal heart sounds, regular rate and rhythm Respiratory: aerating well, clear to auscultation Abdomen: non-tender, soft Genitourinary: no bladder distention, no flank pain Extremities: no edema, no gangrene, no swelling Diagnosis, Assessment Plan Free Text A P: 52-year-old man known to have hypertension who had [...] He endorsed having used Advil or Aleve [id number] for back pain but not more than [...] renal dosing of medication. at 2243 RPT #:[id number] [facility] 2023-11-17 18:00:00 [facility] ([facility]) Pulmonology Progress Note REPORT#:[id number] REPORT STATUS: Signed REPORT INITIALIZATION DATE:11/17/23 TIME: 1800 PATIENT: LEANDRO LEHMAN UNIT #: [id number] ROOM/BED: 6-A : 71 AGE: 53 SEX: M ATTEND: Jeremias Ibarra MD ADM AUTHOR: Jose Miguel Roca MD REPT SERVICE DT/TIME: 11/17/23 1800 * ALL edits or amendments must be made on the electronic/computer document * Subjective Chief complaint: Shortness of breath HPI: 52-year-old male was transferred from outside facility to [facility] with shortness of breath patient is obese, never been diagnosed with obstructive sleep apnea. Patient was admitted from October 19 8 November 05, with hypercapnic respiratory failure-also had left heart cath which was normal CT chest reviewed it is showing possibility of aspiration versus resolving pneumonia may be mild pulmonary edema External record: Patient was recently admitted at [facility] from October 27 through November 05 with hypercapnic respiratory failure, unstable angina and NSTEMI. Per the notes the patient had a left heart cath which showed normal coronary arteries and patient was discharged in a stable condition. Review of Systems ROS Respiratory: Reports: SOB. Denies: wheezing. Cardiovascular: Reports: LAMBERT (dyspnea on exertion). Denies: chest pain. GI: Denies: vomiting. Objective Physical Exam Head/eyes: atraumatic, normocephalic Cardiovascular: regular rate rhythm Respiratory/chest: aerating well, clear to auscultation Abdomen: soft, non-tender Extremities: no pedal edema Neuro/MARRIAGE COUNSELOR: alert Diagnosis, Assessment Plan Free Text A P: 52-year-old male obese previous history of admission due to hypercapnic respiratory failure. Patient was transferred here for further care-patient presented to the ER with vomiting. During his previous admission patient's left heart cath was reported as normal. Patient is still requiring high flow nasal cannula Likely reason for hypoxia could be aspiration pneumonitis versus mild pulmonary edema, possibility of inflammation due to aspiration pneumonitis Current problems Acute hypoxic respiratory failure Obesity Possible aspiration pneumonitis versus pulmonary edema Plan Continue IV Zosyn for possible aspiration pneumonitis I will give 1 dose of Lasix and see the response and possibility of weaning down the oxygen. I will start the patient on low-dose Solu-Medrol Wean oxygen as tolerated to keep the O2 sat more than or equal to 92%. Carbon dioxide/bicarbonate in BMP is not suggestive of obesity hypoventilation syndrome as it is within normal limits on admission. Patient likely has obstructive sleep apnea for which she will need outpatient sleep study Thank you for the consult 11/14/2023 I will wean the FiO2 to 70% and decrease the flow to 15 L, wean oxygen as tolerated. Physical therapy is working with the patient patient has been diagnosed with obstructive sleep apnea however he has old machine he will need repeat sleep study as an outpatient 11/15/2023 Patient is breathing better, wean down the oxygen to 10 L discussed with RN to start regular nasal cannula as tolerated 10 L high flow overall remained stable 11/16/2023 patient is down to 6 L of oxygen, wean as tolerated will need home oxygen on discharge likely has COVID-related scarring at 1727 RPT #:[id number] [facility] 2023-11-17 16:00:00 [facility] ([facility]) Hospitalist Discharge Summary REPORT#:[id number] REPORT STATUS: Signed REPORT INITIALIZATION DATE:11/17/23 TIME: 1600 PATIENT: LEANDRO LEHMAN UNIT #: [id number] ROOM/BED: [address] : 71 AGE: 52 SEX: M ATTEND: Jeremias Ibarra MD ADM AUTHOR: Jeremias Ibarra MD REPT SERVICE DT/TIME: 11/17/23 1600 * ALL edits or amendments must be made on the electronic/computer document * General Information Date of admission: Observation Start Date: Date of admission: 11/10/23 Discharge date: 11/17/23 Discharge diagnosis: acute respiratory failure with hypoxemia pneumonia Hospital course: # Acute respiratory failure with hypoxemia secondary to pneumonia improved. manager mortgage recommends weaning oxygen. patient weaned to 4L of oxygen and tolerated. patient has home oxygen #Pneumonia Suspect community-acquired pneumonia. Chest x-ray shows patchy left interstitial infiltrate. Cannot rule out multidrug-resistant organisms such as Pseudomonas given patient' s recent hospitalization 1 week ago. Cover for Pseudomonas with IV Zosyn 3.375 mg every 8 hours #Acute renal failure Suspect PRATEEK versus CKD stage IIIa Avoid nephrotoxic #Diabetes mellitus type 2 -hgb A1C 5.5 glucose checks AC and HS sliding scale insulin #Hypertension IV hydralazine 10mg q4hrs prn for SBP >170 or DBP >100 #Hyperlipidemia Atorvastatin 40 mg daily #Transaminitis Suspect due to fatty liver disease #Anemia Rule out iron deficiency Chronic nausea Started PPI twice daily GI consulted, follow-up recs #Obesity BMI 39.6 Counseled the patient on need for weight loss with diet and daily exercise. I spent 40 minutes discharging this patient Med Rec Med Rec Discharge meds: Stop taking the following medications: SPIRONOLACTONE (ALDACTONE) 25 MG TAB 25 MILLIGRAM ORAL TWICE DAILY. Continue taking these medications: METOPROLOL TARTRATE (LOPRESSOR) 50 MG TAB 50 MILLIGRAM [...] WITH MEALS Start taking the following new medications: IPRATROPIUM/ALBUTEROL (COMBIVENT RESPIMAT 20/100 MCG/ACT) 20 MCG-100 MCG/ ACTUATION INHALER 1 INH INHALATION FOUR TIMES A DAY. Qty = 4 Refills = 1 Instructions: generic AMOXICILLIN/CLAV K (AUGMENTIN 875/125 MG) 875 MG-125 MG TAB 875 MILLIGRAM ORAL EVERY 12 HOURS. Days = 5 Qty = 10 No Refills Instructions: generic Objective VS/I O Last Documented: Result Date Time Pulse Ox 93 11/17 1613 B/P 132/70 11/17 1613 B/P Mean 90.3 12/19 1613 O2 Delivery Nasal cannula 11/17 Temp 36.7 11/17 161 Pulse 91 11/17 161 Resp 20 11/17 1613 FiO2 36 11/17 0842 O2 Flow Rate 4 11/17 0842 Free Text Obj Notes Free Text Obj Notes: Physical Exam General appearance: obese, alert, awake, oriented, no acute distress, conversational Head/Eyes: atraumatic, clear cornea, EOMI ENT: moist mucosal membranes, normal dentition, normal ear left, normal ear right, normal nose Neck: non-tender, no bruit/NL carotids, no JVD, no masses or swelling Cardiovascular: normal capillary refill, normal heart sounds, tachycardic, no gallop, no murmur, no rub Respiratory: decrease breath sounds bibasilar, rhonchi, symmetric expansion, no crackles or wheezes. Abdomen: non-tender, normal bowel sounds, soft, no distention, no guarding, no mass/organomegaly, no rebound Extremities: moves all, no clubbing, no cyanosis, no edema Musculoskeletal: normal inspection, painless range of motion, no CVA tenderness, no muscle spasm Neuro/MARRIAGE COUNSELOR: alert, oriented X 3, CNII-XII intact, normal speech, no motor deficits, no sensory deficits Skin: dry, intact, normal color, normal temperature, no rash Lymphatics: axilla normal, inguinal normal, neck normal, no lymphadenopathy Psychiatry: normal affect, normal judgment/insight, normal mood, not homicidal, not suicidal Discharge Instructions PCP Discharge to: Home/Self Care Additional Discharge Routines: Furniture Sprayer Follow-Up, Equipment/Supplies Diet: Resume Home Diet/Feeds Activity: As Tolerated Equipment/supplies: Oxygen therapy Follow-up Appointments Consulting provider 1: Provider 1: Jose Miguel Roca MD Specialty: Internal Medicine Consult follow up timeframe: In 1-2 weeks Quality: Discharge Current Medications Current medication review: I attest that the foregoing medication list in the medical record is true, accurate, and complete to the best of my knowledge. at 0912 [facility] #:[id number] [facility] 2023-11-16 19:23:00 [facility] Pulmonology Progress Note REPORT#:[id number] REPORT STATUS: Signed REPORT INITIALIZATION DATE:11/16/23 TIME: 1922 PATIENT: LEANDRO LEHMAN UNIT #: [id number] ROOM/BED: 2086-A : 71 AGE: 52 SEX: M ATTEND: Jeermias Ibarra MD ADM AUTHOR: Jose Miguel Roca MD REPT SERVICE DT/TIME: 11/16/231922 * ALL edits or amendments must be made on the electronic/computer document * Subjective Chief complaint: Shortness of breath HPI: 52-year-old male was transferred from outside facility to [facility] with shortness of breath patient is obese, never been diagnosed with obstructive sleep apnea. Patient was admitted from October 19 8 November 05, with hypercapnic respiratory failure-also had left heart cath which was normal CT chest reviewed it is showing possibility of aspiration versus resolving pneumonia may be mild pulmonary edema External record: Patient was recently admitted at [facility] from October 27 through November 05 with hypercapnic respiratory failure, unstable angina and NSTEMI. Per the notes the patient had a left heart cath which showed normal coronary arteries and patient was discharged in a stable condition. Comments: Patient's breathing has improved Review of Systems ROS Respiratory: Reports: SOB. Denies: wheezing. Cardiovascular: Reports: LAMBERT (dyspnea on exertion). Denies: chest pain. GI: Denies: vomiting. Objective General VS/I O: Last Documented: Result Date Time Pulse Ox 95 [...] Output, Urine 900 PATIENT WEIGHT: Weight (lb): 249 Weight (oz): 9.01 Weight (kg): 113.200 Dietitian nutrition assessment The data set between the solid lines has been imported from the dietitian's assessment. BMI Calculated: 39.1 Nutrition related diagnosis: Nutrition diagnosis details: Nutrition problem: No nutrition diagnosis Nutrition etiology: Nutrition signs and symptoms: Nutrition prescription: Continue consistent carbohydrate diet - 4 CHO/meal Biweekly weight checks RDN to sign off, reconsult as needed Dietitian name: Yasemin Navarro, VALENTIN, LD Assessment completed: 11/11/23 Physical Exam General appearance: alert, awake Head/eyes: atraumatic, normocephalic Cardiovascular: regular rate rhythm Respiratory/chest: aerating well, clear to auscultation Abdomen: soft, non-tender Extremities: no pedal edema Neuro/MARRIAGE COUNSELOR: alert Diagnosis, Assessment Plan Free Text A P: 52-year-old male obese previous history of admission due to hypercapnic respiratory failure. Patient was transferred here for further care-patient presented to the ER with vomiting. During his previous admission patient's left heart cath was reported as normal. Patient is still requiring high flow nasal cannula Likely reason for hypoxia could be aspiration pneumonitis versus mild pulmonary edema, possibility of inflammation due to aspiration pneumonitis Current problems Acute hypoxic respiratory failure Obesity Possible aspiration pneumonitis versus pulmonary edema Plan Continue IV Zosyn for possible aspiration pneumonitis I will give 1 dose of Lasix and see the response and possibility of weaning down the oxygen. I will start the patient on low-dose Solu-Medrol Wean oxygen as tolerated to keep the O2 sat more than or equal to 92%. Carbon dioxide/bicarbonate in BMP is not suggestive of obesity hypoventilation syndrome as it is within normal limits on admission. Patient likely has obstructive sleep apnea for which she will need outpatient sleep study Thank you for the consult 11/14/2023 I will wean the FiO2 to 70% and decrease the flow to 15 L, wean oxygen as tolerated. Physical therapy is working with the patient patient has been diagnosed with obstructive sleep apnea however he has old machine he will need repeat sleep study as an outpatient 11/15/2023 Patient is breathing better, wean down the oxygen to 10 L discussed with RN to start regular nasal cannula as tolerated 10 L high flow overall remained stable 11/16/2023 patient is down to 6 L of oxygen, wean as tolerated will need home oxygen on discharge likely has COVID-related scarring at 1926 RPT #:[id number] [facility] 2023-11-16 14:01:00 [facility] ([facility]) Nephrology Progress Note REPORT#:[id number] REPORT STATUS: Signed REPORT INITIALIZATION DATE:11/16/23 TIME: 140 PATIENT: LEANDRO LEHMAN UNIT #: [id number] ROOM/BED: [facility] : 71 AGE: 52 SEX: M ATTEND: Jeremias Ibarra MD ADM AUTHOR: Christa Maurer MD REPT SERVICE DT/TIME: 11/16/23 1401 * ALL edits or amendments must be made on the electronic/computer document * Subjective Chief complaint: SOB HPI: 52-year-old man known to have hypertension who had [...] He endorsed having used Advil or Aleve [id number] for back pain but not more than once or twice a day. 11/16 Patient feeling fine, denying all systemic review. Objective General VS/I O: Vital Signs: Date Time Temp Pulse Resp B/P [...] 110/57 74.7 95 PATIENT WEIGHT: Weight (lb): 249 Weight (oz): 9.01 Weight (kg): 113.200 Physical Exam General appearance: alert, awake, oriented Head/eyes: atraumatic, EOMI ENT: moist mucous membranes, normal nose Neck: no JVD, no lymphadenopathy Cardiovascular: normal heart sounds, regular rate and rhythm Respiratory: aerating well, clear to auscultation Abdomen: non-tender, soft Genitourinary: no bladder distention, no flank pain Extremities: no edema, no gangrene, no swelling Diagnosis, Assessment Plan Free Text A P: 52-year-old man known to have hypertension who had [...] He endorsed having used Advil or Aleve [id number] for back pain but not more than [...] renal dosing of medication. at 1314 RPT #:[id number] [facility] 2023-11-16 13:54:00 [facility] ([facility]) Hospitalist Progress Note REPORT#:[id number] REPORT STATUS: Signed REPORT INITIALIZATION DATE:11/16/23 TIME: 1354 PATIENT: LEANDRO LEHMAN UNIT #: [id number] ROOM/BED: [address] : 71 AGE: 52 SEX: M ATTEND: Jeremias Ibarra MD ADM AUTHOR: Jeremias Ibarra MD REPT SERVICE DT/TIME: 11/16/23 1354 * ALL edits or amendments must be made on the electronic/computer document * Subjective Chief complaint: Shortness of breath improving Objective Free Text Obj Notes Free Text Obj Notes: Physical Exam General appearance: obese, alert, awake, oriented, no acute distress, conversational Head/Eyes: atraumatic, clear cornea, EOMI ENT: moist mucosal membranes, normal dentition, normal ear left, normal ear right, normal nose Neck: non-tender, no bruit/NL carotids, no JVD, no masses or swelling Cardiovascular: normal capillary refill, normal heart sounds, tachycardic, no gallop, no murmur, no rub Respiratory: decrease breath sounds bibasilar, rhonchi, symmetric expansion, no crackles or wheezes. Abdomen: non-tender, normal bowel sounds, soft, no distention, no guarding, no mass/organomegaly, no rebound Extremities: moves all, no clubbing, no cyanosis, no edema Musculoskeletal: normal inspection, painless range of motion, no CVA tenderness, no muscle spasm Neuro/MARRIAGE COUNSELOR: alert, oriented X 3, CNII-XII intact, normal speech, no motor deficits, no sensory deficits Skin: dry, intact, normal color, normal temperature, no rash Lymphatics: axilla normal, inguinal normal, neck normal, no lymphadenopathy Psychiatry: normal affect, normal judgment/insight, normal mood, not homicidal, not suicidal Diagnosis, Assessment Plan Free Text DxA P Notes Free text DxA P notes: # Acute respiratory failure with hypoxemia secondary to pneumonia improved. manager mortgage recommends weaning oxygen down to 10L oxygen via regular nasal canula #Pneumonia Suspect community-acquired pneumonia. Chest x-ray shows patchy left interstitial infiltrate. Cannot rule out multidrug-resistant organisms such as Pseudomonas given patient' s recent hospitalization 1 week ago. Cover for Pseudomonas with IV Zosyn 3.375 mg every 8 hours #Acute renal failure Suspect PRATEEK versus CKD stage IIIa Avoid nephrotoxic #Diabetes mellitus type 2 -hgb A1C 5.5 glucose checks AC and HS sliding scale insulin #Hypertension IV hydralazine 10mg q4hrs prn for SBP >170 or DBP >100 #Hyperlipidemia Atorvastatin 40 mg daily #Transaminitis Suspect due to fatty liver disease #Anemia Rule out iron deficiency Chronic nausea Started PPI twice daily GI consulted, follow-up recs #Obesity BMI 39.6 Counseled the patient on need for weight loss with diet and daily exercise. 40 minutes of critical care time spent Quality: Gen Med Crit Care VTE Prophylaxis VTE prophylaxis initiated: yes (mechanical comp device) Current Medications Current medication review: I attest that the foregoing medication list in the medical record is true, accurate, and complete to the best of my knowledge. at 1245 RPT #:[id number] [facility] 2023-11-16 12:26:00 [facility] ([facility]) Gastroenterology Progress Note REPORT#:[id number] REPORT STATUS: Signed REPORT INITIALIZATION DATE:11/16/23 TIME: 1225 PATIENT: LEANDRO LEHMAN UNIT #: [id number] ROOM/BED: 2085- : 71 AGE: 52 SEX: M ATTEND: Jeremias Ibarra MD ADM AUTHOR: Maria Del Carmen Puentes REPT SERVICE DT/TIME: 11/16/23 1226 * ALL edits or amendments must be made on the electronic/computer document * Subjective Chief complaint: Shortness of breath HPI: 52-year-old male with a past medical history of [...] and reflux symptoms, denies recent vomiting, hematemesis, hematochezia, melena, f/c, denies taking any medications or lifestyle changes to help alleviate symptoms. Patient denies ever receiving EGD/Colonoscopy prior, does not follow up with GI physician. CT Abd pelvis w/out contrast show no acute intra-abdominal findings. Comments: per pt nausea improved, able to nerissa diet, denies abd pain Review of Systems Constitutional: Denies: chills, fever. Respiratory: Denies: SOB, wheezing. Cardiovascular: Denies: chest pain, palpitations. GI: Denies: abdominal pain, constipation, diarrhea, hematemesis, hematochezia, melena, nausea, vomiting. Objective General VS/I O: Last Documented: Result Date Time Pulse Ox 95 [...] Output, Urine 900 PATIENT WEIGHT: Weight (lb): 249 Weight (oz): 9.01 Weight (kg): 113.200 Medications: Active Meds + DC'd Last 24 Hrs Insulin Glargine (Lantus/Semglee) 20 UNIT BEDTIME SUBQ Potassium [...] (DC) Sodium Chloride (SODIUM CHLORIDE 0.9%) 100 ML Albuterol/Ipratropium (DUONEB) 3 ML RTQ4H INH Acetaminophen (TYLENOL) 650 MG Q4H PRN PRN PO Hydralazine HCl (APRESOLINE) 10 MG Q4H PRN PRN IV Ondansetron HCl (ondansetron HCL) 4 MG Q6H PRN PRN IV Dietitian nutrition assessment The data set between the solid lines has been imported from the dietitian's assessment. BMI Calculated: 39.1 Nutrition related diagnosis: Nutrition diagnosis details: Nutrition problem: No nutrition diagnosis Nutrition etiology: Nutrition signs and symptoms: Nutrition prescription: Continue consistent carbohydrate diet - 4 CHO/meal Biweekly weight checks RDN to sign off, reconsult as needed Dietitian name: Yasemin Navarro RDN, ESTEFANI Assessment completed: 11/11/23 Physical Exam General appearance: alert, awake, oriented HEENT: atraumatic, normocephalic Neck: no JVD Cardiovascular: normal S1/S2, regular rate rhythm Respiratory: equal breath sounds, symmetric expansion Abdomen: non-tender, normal bowel sounds, soft, no distention Extremities: decreased range of motion Musculoskeletal: decreased ROM Neuro/MARRIAGE COUNSELOR: alert, oriented X 3, no sensory deficits Skin: dry, intact Psychiatry: not homicidal, not suicidal Results Findings/Data: Laboratory Tests 11/16/23 0407: [Embedded Image Not Available] 11/15/232039: [Embedded Image Not Available] Laboratory Tests 11/16 11/16 11/16 11/16 11/15 1209 0611 0407 18 2039 Chemistry Sodium (136 - 145 mmol/L) 136 [...] labs reviewed, vital signs reviewed Diagnosis, Assessment Plan Free Text A P: 52-year-old male with a past medical history of [...] and reflux symptoms, denies recent vomiting, hematemesis, hematochezia, melena, f/c, denies taking any medications or lifestyle changes to help alleviate symptoms. Patient denies ever receiving EGD/Colonoscopy prior, does not follow up with GI physician. CT Abd pelvis w/out contrast show no acute intra-abdominal findings. Assessment: -Abdominal Pain with Nausea - suspect gerd vs gastritis vs gastric/duodenal ulcer - improved -Anemia - Mild -patient denies recent GI bleed -Hx NSTEMI sp cath x2 weeks - on lovenox Plan: -Recommend Protonix BID - continue upon dc -Low dose reglan - monitor for EPS -Discussed lifestyle changes, patient confirmed understanding -Monitor H/H, transfuse if hgb <7.0 -Monitor for acute GI bleed -IVF, antiemetics, pain management as needed -Will monitor PRN at 1228 at 1641 RPT #:[id number] [facility] 2023-11-15 18:47:00 [facility] ([facility]) Pulmonology Progress Note REPORT#:[id number] REPORT STATUS: Signed REPORT INITIALIZATION DATE:11/15/23 TIME: 1846 PATIENT: LEANDRO LEHMAN UNIT #: [id number] ROOM[facility]BED: [facility] : 71 AGE: 52 SEX: M ATTEND: Jeremias Ibarra MD ADM AUTHOR: Jose Miguel Roca MD REPT SERVICE DT/TIME: 11/15/23 6767 * ALL edits or amendments must be made on the electronic/computer document * Subjective Chief complaint: Shortness of breath HPI: 52-year-old male was transferred from outside facility to [facility] with shortness of breath patient is obese, never been diagnosed with obstructive sleep apnea. Patient was admitted from October 19 8 November 05, with hypercapnic respiratory failure-also had left heart cath which was normal CT chest reviewed it is showing possibility of aspiration versus resolving pneumonia may be mild pulmonary edema External record: Patient was recently admitted at [facility] from October 27 through November 05 with hypercapnic respiratory failure, unstable angina and NSTEMI. Per the notes the patient had a left heart cath which showed normal coronary arteries and patient was discharged in a stable condition. Comments: Respiratory status remains stable, oxygen weaned down to 10 L patient is saturating 97% Review of Systems ROS Respiratory: Reports: SOB. Denies: wheezing. Cardiovascular: Reports: LAMBERT (dyspnea on exertion). Denies: chest pain. GI: Denies: vomiting. Objective General VS/I O: Last Documented: Result Date Time Pulse Ox 98 11/15 181 FiO2 80 11/15 1812 O2 Flow Rate 10 11/15 181 Pulse 82 11/15 1812 Resp 18 11/15 181 O2 Delivery High flow nasal cannula 11/15 181 B/P 122/70 11/15 165 B/P Mean 87.2 11/15 165 Temp 98.4 11/15 165 24 hour I O ending at 0700: 11/15 0700 11/14 1900 Intake Total 1400.00 Output Total 900 1000 Balance -900 400.00 Intake, IV 200.00 Intake, Oral 1200 Number 1 Bowel Movements Output, Urine 900 1000 PATIENT WEIGHT: Weight (lb): 249 Weight (oz): 9.01 Weight (kg): 113.200 Dietitian nutrition assessment The data set between the solid lines has been imported from the dietitian's assessment. BMI Calculated: 39.1 Nutrition related diagnosis: Nutrition diagnosis details: Nutrition problem: No nutrition diagnosis Nutrition etiology: Nutrition signs and symptoms: Nutrition prescription: Continue consistent carbohydrate diet - 4 CHO/meal Biweekly weight checks RDN to sign off, reconsult as needed Dietitian name: Yasemin Navarro, VALENTIN, LD Assessment completed: 11/11/23 Physical Exam General appearance: alert, awake Head/eyes: atraumatic, normocephalic Cardiovascular: regular rate rhythm Respiratory/chest: aerating well, clear to auscultation Abdomen: soft, non-tender Extremities: no pedal edema Neuro/MARRIAGE COUNSELOR: alert Diagnosis, Assessment Plan Free Text A P: 52-year-old male obese previous history of admission due to hypercapnic respiratory failure. Patient was transferred here for further care-patient presented to the ER with vomiting. During his previous admission patient's left heart cath was reported as normal. Patient is still requiring high flow nasal cannula Likely reason for hypoxia could be aspiration pneumonitis versus mild pulmonary edema, possibility of inflammation due to aspiration pneumonitis Current problems Acute hypoxic respiratory failure Obesity Possible aspiration pneumonitis versus pulmonary edema Plan Continue IV Zosyn for possible aspiration pneumonitis I will give 1 dose of Lasix and see the response and possibility of weaning down the oxygen. I will start the patient on low-dose Solu-Medrol Wean oxygen as tolerated to keep the O2 sat more than or equal to 92%. Carbon dioxide/bicarbonate in BMP is not suggestive of obesity hypoventilation syndrome as it is within normal limits on admission. Patient likely has obstructive sleep apnea for which she will need outpatient sleep study Thank you for the consult 11/14/2023 I will wean the FiO2 to 70% and decrease the flow to 15 L, wean oxygen as tolerated. Physical therapy is working with the patient patient has been diagnosed with obstructive sleep apnea however he has old machine he will need repeat sleep study as an outpatient 11/15/2023 Patient is breathing better, wean down the oxygen to 10 L discussed with RN to start regular nasal cannula as tolerated 10 L high flow overall remained stable at 1848 RPT #:[id number] [facility] 2023-11-15 15:29:00 [facility] ([facility]) Hospitalist Progress Note REPORT#:[id number] REPORT STATUS: Signed REPORT INITIALIZATION DATE:11/15/23 TIME: 1528 PATIENT: LEANDRO LEHMAN UNIT #: [id number] ROOM/BED: [address] : 71 AGE: 52 SEX: M ATTEND: Jeremias Ibarra MD ADM AUTHOR: Jeremias Ibarra MD REPT SERVICE DT/TIME: 11/15/23 1529 * ALL edits or amendments must be made on the electronic/computer document * Subjective Chief complaint: Shortness of breath improving Objective General VS/I O: Vital Signs: Date Time Temp Pulse Resp B/P [...] Urine 900 1000 PATIENT WEIGHT: Weight (lb): 249 Weight (oz): 9.01 Weight (kg): 113.200 Medications: Active Meds + DC'd Last 24 Hrs Insulin Glargine (Lantus/Semglee) 20 UNIT BEDTIME SUBQ (UNV) [...] (DC) Sodium Chloride (SODIUM CHLORIDE 0.9%) 100 ML Albuterol/Ipratropium (DUONEB) 3 ML RTQ4H INH Acetaminophen (TYLENOL) 650 MG Q4H PRN PRN PO Hydralazine HCl (APRESOLINE) 10 MG Q4H PRN PRN IV Ondansetron HCl (ondansetron HCL) 4 MG Q6H PRN PRN IV Free Text Obj Notes Free Text Obj Notes: Physical Exam General appearance: obese, alert, awake, oriented, no acute distress, conversational Head/Eyes: atraumatic, clear cornea, EOMI ENT: moist mucosal membranes, normal dentition, normal ear left, normal ear right, normal nose Neck: non-tender, no bruit/NL carotids, no JVD, no masses or swelling Cardiovascular: normal capillary refill, normal heart sounds, tachycardic, no gallop, no murmur, no rub Respiratory: decrease breath sounds bibasilar, rhonchi, symmetric expansion, no crackles or wheezes. Abdomen: non-tender, normal bowel sounds, soft, no distention, no guarding, no mass/organomegaly, no rebound Extremities: moves all, no clubbing, no cyanosis, no edema Musculoskeletal: normal inspection, painless range of motion, no CVA tenderness, no muscle spasm Neuro/MARRIAGE COUNSELOR: alert, oriented X 3, CNII-XII intact, normal speech, no motor deficits, no sensory deficits Skin: dry, intact, normal color, normal temperature, no rash Lymphatics: axilla normal, inguinal normal, neck normal, no lymphadenopathy Psychiatry: normal affect, normal judgment/insight, normal mood, not homicidal, not suicidal Diagnosis, Assessment Plan Free Text DxA P Notes Free text DxA P notes: # Acute respiratory failure with hypoxemia secondary to pneumonia improved. manager mortgage recommends weaning oxygen down to 10L oxygen via regular nasal canula #Pneumonia Suspect community-acquired pneumonia. Chest x-ray shows patchy left interstitial infiltrate. Cannot rule out multidrug-resistant organisms such as Pseudomonas given patient' s recent hospitalization 1 week ago. Cover for Pseudomonas with IV Zosyn 3.375 mg every 8 hours #Acute renal failure Suspect PRATEEK versus CKD stage IIIa Avoid nephrotoxic #Diabetes mellitus type 2 -hgb A1C 5.5 glucose checks AC and HS sliding scale insulin #Hypertension IV hydralazine 10mg q4hrs prn for SBP >170 or DBP >100 #Hyperlipidemia Atorvastatin 40 mg daily #Transaminitis Suspect due to fatty liver disease #Anemia Rule out iron deficiency Chronic nausea Started PPI twice daily GI consulted, follow-up recs #Obesity BMI 39.6 Counseled the patient on need for weight loss with diet and daily exercise. 40 minutes of critical care time spent Quality: Gen Med Crit Care VTE Prophylaxis VTE prophylaxis initiated: yes (mechanical comp device) Current Medications Current medication review: I attest that the foregoing medication list in the medical record is true, accurate, and complete to the best of my knowledge. at 2114 [facility] #:[id number] [facility] 2023-11-15 10:40:00 [facility] ([facility]) Nephrology Consultation Note REPORT#:[id number] REPORT STATUS: Signed REPORT INITIALIZATION DATE:11/15/23 TIME: 104 PATIENT: LEANDRO LEHMAN UNIT #: [id number] ROOM/BED: [address] : 71 AGE: 52 SEX: M ATTEND: Jeremias Ibarra MD ADM AUTHOR: Christa Maurer MD REPT SERVICE DT/TIME: 11/15/23 1040 * ALL edits or amendments must be made on the electronic/computer document * History of Present Illness Requesting clinician: Dr Ibarra Reason for consult: hyponatremia Chief complaint: SOB HPI: 52-year-old man known to have hypertension who had [...] He endorsed having used Advil or Aleve [id number] for back pain but not more than once or twice a day. History - Adult longitudinal Past medical history: Denies: Kidney disease/stones. Additional medical history: Diabetes mellitus type 2, hypertension, and GERD Additional surgical history: Denies any history of surgery Family history: Reports: Diabetes, Hypertension. Alcohol use: Denies EtOH use Drug use: Denies recreational drugs Smoking status for patients 13 years old or older: Never Smoker Allergies: Coded Allergies: No Known Allergies (09/22/22) Review of Systems Constitutional: Denies: chills, fever. Skin: Denies: abrasion, bruising. Allergy/Immun: Denies: allergic reaction, anaphylaxis. Eyes: Denies: redness, discharge. ENT: Denies: sore throat, throat pain. Respiratory: Denies: LAMBERT (dyspnea on exertion), hemoptysis. Cardiovascular: Denies: chest pain, LAMEBRT (dyspnea on exertion). GI: Denies: abdominal pain, anorexia. : Denies: dysuria, flank pain. Objective General VS/I O: Vital Signs: Date Time Temp Pulse Resp B/P [...] Output, Urine 900 PATIENT WEIGHT: Weight (lb): 249 Weight (oz): 9.01 Weight (kg): 113.200 Physical Exam General appearance: alert, awake, oriented Head/eyes: atraumatic, EOMI ENT: moist mucous membranes, normal nose Neck: no JVD, no lymphadenopathy Cardiovascular: normal heart sounds, regular rate and rhythm Respiratory: aerating well, clear to auscultation Abdomen: non-tender, soft Genitourinary: no bladder distention, no flank pain Extremities: no edema, no gangrene, no swelling Diagnosis, Assessment Plan Free Text DxA P Notes Free text DxA P notes: 52-year-old man known to have hypertension who had [...] He endorsed having used Advil or Aleve [id number] for back pain but not more than [...] renal dosing of medication. at 1400 RPT #:[id number] [facility] 2023-11-14 19:34:00 [facility] ([facility]) Pulmonology Progress Note REPORT#:[id number] REPORT STATUS: Signed REPORT INITIALIZATION DATE:11/14/23 TIME: 1933 PATIENT: LEANDRO LEHMAN UNIT #: [id number] ROOM/BED: [address] : 71 AGE: 52 SEX: M ATTEND: Jeremias Ibarra MD ADM AUTHOR: Jose Miguel Roca MD REPT SERVICE DT/TIME: 11/14/231933 * ALL edits or amendments must be made on the electronic/computer document * Subjective Chief complaint: Shortness of breath HPI: 52-year-old male was transferred from outside facility to [facility] with shortness of breath patient is obese, never been diagnosed with obstructive sleep apnea. Patient was admitted from October 19 8 November 05, with hypercapnic respiratory failure-also had left heart cath which was normal CT chest reviewed it is showing possibility of aspiration versus resolving pneumonia may be mild pulmonary edema External record: Patient was recently admitted at [facility] from October 27 through November 05 with hypercapnic respiratory failure, unstable angina and NSTEMI. Per the notes the patient had a left heart cath which showed normal coronary arteries and patient was discharged in a stable condition. Comments: Overall breathing is stable Objective Physical Exam Head/eyes: atraumatic, normocephalic Cardiovascular: regular rate rhythm Respiratory/chest: decreased breath sounds Abdomen: soft, non-tender Extremities: no pedal edema Neuro/MARRIAGE COUNSELOR: alert Diagnosis, Assessment Plan Free Text A P: 52-year-old male obese previous history of admission due to hypercapnic respiratory failure. Patient was transferred here for further care-patient presented to the ER with vomiting. During his previous admission patient's left heart cath was reported as normal. Patient is still requiring high flow nasal cannula Likely reason for hypoxia could be aspiration pneumonitis versus mild pulmonary edema, possibility of inflammation due to aspiration pneumonitis Current problems Acute hypoxic respiratory failure Obesity Possible aspiration pneumonitis versus pulmonary edema Plan Continue IV Zosyn for possible aspiration pneumonitis I will give 1 dose of Lasix and see the response and possibility of weaning down the oxygen. I will start the patient on low-dose Solu-Medrol Wean oxygen as tolerated to keep the O2 sat more than or equal to 92%. Carbon dioxide/bicarbonate in BMP is not suggestive of obesity hypoventilation syndrome as it is within normal limits on admission. Patient likely has obstructive sleep apnea for which she will need outpatient sleep study Thank you for the consult 11/14/2023 I will wean the FiO2 to 70% and decrease the flow to 15 L, wean oxygen as tolerated. Physical therapy is working with the patient patient has been diagnosed with obstructive sleep apnea however he has old machine he will need repeat sleep study as an outpatient at 0016 RPT #:[id number] [facility] 2023-11-14 18:46:00 [facility] ([facility]) Hospitalist Progress Note REPORT#:[id number] REPORT STATUS: Signed REPORT INITIALIZATION DATE:11/14/23 TIME: 1845 PATIENT: LEANDRO LEHMAN UNIT #: [id number] ROOM/BED: 6-A : 71 AGE: 52 SEX: M ATTEND: Jeremias Ibarra MD ADM AUTHOR: Jeremias Ibarra MD REPT SERVICE DT/TIME: 11/14/231845 * ALL edits or amendments must be made on the electronic/computer document * Subjective Chief complaint: Shortness of breath Objective General VS/I O: Vital Signs: Date Time Temp Pulse Resp B/P [...] Output, Urine 800 PATIENT WEIGHT: Weight (lb): 249 Weight (oz): 9.01 Weight (kg): 113.200 Medications: Active Meds + DC'd Last 24 Hrs Insulin Glargine (Lantus/Semglee) 30 UNIT DAILY SUBQ Metoclopramide [...] IV Sodium Chloride (SODIUM CHLORIDE 0.9%) 100 ML Albuterol/Ipratropium (DUONEB) 3 ML RTQ4H INH Acetaminophen (TYLENOL) 650 MG Q4H PRN PRN PO Hydralazine HCl (APRESOLINE) 10 MG Q4H PRN PRN IV Ondansetron HCl (ondansetron HCL) 4 MG Q6H PRN PRN IV Free Text Obj Notes Free Text Obj Notes: Physical Exam General appearance: obese, alert, awake, oriented, no acute distress, conversational Head/Eyes: atraumatic, clear cornea, EOMI ENT: moist mucosal membranes, normal dentition, normal ear left, normal ear right, normal nose Neck: non-tender, no bruit/NL carotids, no JVD, no masses or swelling Cardiovascular: normal capillary refill, normal heart sounds, tachycardic, no gallop, no murmur, no rub Respiratory: decrease breath sounds bibasilar, rhonchi, symmetric expansion, no crackles or wheezes. Abdomen: non-tender, normal bowel sounds, soft, no distention, no guarding, no mass/organomegaly, no rebound Extremities: moves all, no clubbing, no cyanosis, no edema Musculoskeletal: normal inspection, painless range of motion, no CVA tenderness, no muscle spasm Neuro/MARRIAGE COUNSELOR: alert, oriented X 3, CNII-XII intact, normal speech, no motor deficits, no sensory deficits Skin: dry, intact, normal color, normal temperature, no rash Lymphatics: axilla normal, inguinal normal, neck normal, no lymphadenopathy Psychiatry: normal affect, normal judgment/insight, normal mood, not homicidal, not suicidal Diagnosis, Assessment Plan Free Text DxA P Notes Free text DxA P notes: # Acute respiratory failure with hypoxemia secondary to pneumonia placed on high flow oxygen vapotherm at 30L at FiO2 80%, wean down to Vapotherm 25 L fio2 65% pulmonary consulted admitted to ICU #Pneumonia Suspect community-acquired pneumonia. Chest x-ray shows patchy left interstitial infiltrate. Cannot rule out multidrug-resistant organisms such as Pseudomonas given patient' s recent hospitalization 1 week ago. Cover for Pseudomonas with IV Zosyn 3.375 mg every 8 hours #Acute renal failure Suspect PRATEEK versus CKD stage IIIa Avoid nephrotoxic #Diabetes mellitus type 2 -hgb A1C 5.5 glucose checks AC and HS sliding scale insulin #Hypertension IV hydralazine 10mg q4hrs prn for SBP >170 or DBP >100 #Hyperlipidemia Atorvastatin 40 mg daily #Transaminitis Suspect due to fatty liver disease #Anemia Rule out iron deficiency Chronic nausea Started PPI twice daily GI consulted, follow-up recs #Obesity BMI 39.6 Counseled the patient on need for weight loss with diet and daily exercise. 40 minutes of critical care time spent Quality: Gen Med Crit Care VTE Prophylaxis VTE prophylaxis initiated: yes (mechanical comp device) Current Medications Current medication review: I attest that the foregoing medication list in the medical record is true, accurate, and complete to the best of my knowledge. at 1857 RPT #:[id number] [facility] 2023-11-13 17:55:00 [facility] ([facility]) Pulmonology Progress Note REPORT#:[id number] REPORT STATUS: Signed REPORT INITIALIZATION DATE:11/13/23 TIME: 1754 PATIENT: LEANDRO LEHMAN UNIT #: [id number] ROOM/BED: [address] : [address] AGE: 52 SEX: M ATTEND: Jeremias Ibarra MD ADM AUTHOR: Jose Miguel Roca MD REPT SERVICE DT/TIME: 11/13/231754 * ALL edits or amendments must be made on the electronic/computer document * Subjective Chief complaint: Shortness of breath HPI: 52-year-old male was transferred from outside facility to [facility] with shortness of breath patient is obese, never been diagnosed with obstructive sleep apnea. Patient was admitted from October 19 8 November 05, with hypercapnic respiratory failure-also had left heart cath which was normal CT chest reviewed it is showing possibility of aspiration versus resolving pneumonia may be mild pulmonary edema External record: Patient was recently admitted at [facility] from October 27 through November 05 with hypercapnic respiratory failure, unstable angina and NSTEMI. Per the notes the patient had a left heart cath which showed normal coronary arteries and patient was discharged in a stable condition. Comments: Patient is on high flow nasal cannula Review of Systems ROS Respiratory: Reports: SOB. Denies: wheezing. Cardiovascular: Reports: LAMBERT (dyspnea on exertion). Denies: chest pain. GI: Denies: vomiting. Objective General VS/I O: Last Documented: Result Date Time Pulse Ox 96 [...] Output, Urine 1000 PATIENT WEIGHT: Weight (lb): 249 Weight (oz): 9.01 Weight (kg): 113.200 Dietitian nutrition assessment The data set between the solid lines has been imported from the dietitian's assessment. BMI Calculated: 39.1 Nutrition related diagnosis: Nutrition diagnosis details: Nutrition problem: No nutrition diagnosis Nutrition etiology: Nutrition signs and symptoms: Nutrition prescription: Continue consistent carbohydrate diet - 4 CHO/meal Biweekly weight checks RDN to sign off, reconsult as needed Dietitian name: Yasemin Navarro RDN, Assessment completed: 11/11/23 Physical Exam Head/eyes: atraumatic, normocephalic Cardiovascular: regular rate rhythm Respiratory/chest: aerating well, clear to auscultation Abdomen: soft, non-tender Extremities: no pedal edema Neuro/MARRIAGE COUNSELOR: alert Diagnosis, Assessment Plan Free Text A P: 52-year-old male obese previous history of admission due to hypercapnic respiratory failure. Patient was transferred here for further care-patient presented to the ER with vomiting. During his previous admission patient's left heart cath was reported as normal. Patient is still requiring high flow nasal cannula Likely reason for hypoxia could be aspiration pneumonitis versus mild pulmonary edema, possibility of inflammation due to aspiration pneumonitis Current problems Acute hypoxic respiratory failure Obesity Possible aspiration pneumonitis versus pulmonary edema Plan Continue IV Zosyn for possible aspiration pneumonitis I will give 1 dose of Lasix and see the response and possibility of weaning down the oxygen. I will start the patient on low-dose Solu-Medrol Wean oxygen as tolerated to keep the O2 sat more than or equal to 92%. Carbon dioxide/bicarbonate in BMP is not suggestive of obesity hypoventilation syndrome as it is within normal limits on admission. Patient likely has obstructive sleep apnea for which she will need outpatient sleep study Thank you for the consult 11/13/2023 Patient is requiring high flow nasal cannula, reported to me that patient used to use 5 L of oxygen at home during hours of sleep, this was after COVID and patient had extremely severe COVID with COVID-related scarring. Wean high flow nasal cannula at 0015 RPT #:[id number] [facility] 2023-11-13 12:54:00 [facility] ([facility]) Hospitalist Progress Note REPORT#:[id number] REPORT STATUS: Signed REPORT INITIALIZATION DATE:11/13/23 TIME: 125 PATIENT: LEANDRO LEHMAN UNIT #: [id number] ROOM/BED: [address] : 71 AGE: 52 SEX: M ATTEND: Lindsey Coyle MD ADM AUTHOR: Lindsey Coyle MD REPT SERVICE DT/TIME: 11/13/23 1254 * ALL edits or amendments must be made on the electronic/computer document * Subjective Chief complaint: Shortness of breath Free Text Subj Notes Free Text Subj Notes: Patient seen and examined at bedside. Complaining of nausea. Review of Systems Free Text ROS Notes Free Text ROS Notes: CONSTITUTIONAL: Patient denies fevers, chills, sweats and weight changes. EYES: Patient denies any visual symptoms. EARS, NOSE, AND THROAT: No difficulties with hearing. No symptoms of rhinitis or sore throat. CARDIOVASCULAR: Patient denies chest pains, palpitations, orthopnea and paroxysmal nocturnal dyspnea. RESPIRATORY: reports shortness of breath, cough, and dyspnea on exertion. no wheezing GI: Reports nausea and vomiting. diarrhea, constipation, abdominal pain, hematochezia or melena. : No urinary hesitancy or dribbling. No nocturia or urinary frequency. No abnormal urethral discharge. MUSCULOSKELETAL: No myalgias or arthralgias. NEUROLOGIC: No chronic headaches, no seizures. Patient denies numbness, tingling or weakness. PSYCHIATRIC: Patient denies problems with mood disturbance. No problems with anxiety. ENDOCRINE: No excessive urination or excessive thirst. DERMATOLOGIC: Patient denies any rashes or skin changes. Objective General VS/I O: Vital Signs: Date Time Temp Pulse Resp B/P [...] Output, Urine 800 PATIENT WEIGHT: Weight (lb): 249 Weight (oz): 9.01 Weight (kg): 113.200 Free Text Obj Notes Free Text Obj Notes: Physical Exam General appearance: obese, alert, awake, oriented, no acute distress, conversational Head/Eyes: atraumatic, clear cornea, EOMI ENT: moist mucosal membranes, normal dentition, normal ear left, normal ear right, normal nose Neck: non-tender, no bruit/NL carotids, no JVD, no masses or swelling Cardiovascular: normal capillary refill, normal heart sounds, tachycardic, no gallop, no murmur, no rub Respiratory: decrease breath sounds bibasilar, rhonchi, symmetric expansion, no crackles or wheezes. On Vapotherm 25 L, FiO2 50% Abdomen: non-tender, normal bowel sounds, soft, no distention, no guarding, no mass/organomegaly, no rebound Extremities: moves all, no clubbing, no cyanosis, no edema Musculoskeletal: normal inspection, painless range of motion, no CVA tenderness, no muscle spasm Neuro/MARRIAGE COUNSELOR: alert, oriented X 3, CNII-XII intact, normal speech, no motor deficits, no sensory deficits Skin: dry, intact, normal color, normal temperature, no rash Lymphatics: axilla normal, inguinal normal, neck normal, no lymphadenopathy Psychiatry: normal affect, normal judgment/insight, normal mood, not homicidal, not suicidal Diagnosis, Assessment Plan Free Text DxA P Notes Free text DxA P notes: # Acute respiratory failure with hypoxemia secondary to pneumonia placed on high flow oxygen vapotherm at 30L at FiO2 80%, wean down to Vapotherm 25 L fio2 65% pulmonary consulted admitted to ICU #Pneumonia Suspect community-acquired pneumonia. Chest x-ray shows patchy left interstitial infiltrate. Cannot rule out multidrug-resistant organisms such as Pseudomonas given patient' s recent hospitalization 1 week ago. Cover for Pseudomonas with IV Zosyn 3.375 mg every 8 hours #Acute renal failure Suspect PRATEEK versus CKD stage IIIa Avoid nephrotoxic #Diabetes mellitus type 2 -hgb A1C 5.5 glucose checks AC and HS sliding scale insulin #Hypertension IV hydralazine 10mg q4hrs prn for SBP >170 or DBP >100 #Hyperlipidemia Atorvastatin 40 mg daily #Transaminitis Suspect due to fatty liver disease #Anemia Rule out iron deficiency Chronic nausea Started PPI twice daily GI consulted, follow-up recs #Obesity BMI 39.6 Counseled the patient on need for weight loss with diet and daily exercise. 40 minutes of critical care time spent Quality: Gen Med Crit Care VTE Prophylaxis VTE prophylaxis initiated: yes (mechanical comp device) Current Medications Current medication review: I attest that the foregoing medication list in the medical record is true, accurate, and complete to the best of my knowledge. at 1255 RPT #:[id number] [facility] 2023-11-13 09:23:00 [facility] ([facility]) GE Consultation Note REPORT#:[id number] REPORT STATUS: Signed REPORT INITIALIZATION DATE:11/13/23 TIME: 922 PATIENT: LEANDRO LEHMAN UNIT #: [id number] ROOM/BED: 6-A : 71 AGE: 52 SEX: M ATTEND: Lindsey Coyle MD ADM AUTHOR: Maria Del Carmen Puentes REPT SERVICE DT/TIME: 11/13/23922 * ALL edits or amendments must be made on the electronic/computer document * History of Present Illness Requesting clinician: DR COYLE Reason for consult: persistent nausea Chief complaint: Shortness of breath PCP: PCP: Sang Rey MD HPI: 52-year-old male with a past medical history of [...] and reflux symptoms, denies recent vomiting, hematemesis, hematochezia, melena, f/c, denies taking any medications or lifestyle changes to help alleviate symptoms. Patient denies ever receiving EGD/Colonoscopy prior, does not follow up with GI physician. CT Abd pelvis w/out contrast show no acute intra-abdominal findings. Hx Obtained From Patient History - Adult longitudinal Additional medical history: Diabetes mellitus type 2, hypertension, and GERD Additional surgical history: Denies any history of surgery Family history: Reports: Diabetes, Hypertension. Alcohol use: Denies EtOH use Drug use: Denies recreational drugs Smoking status for patients 13 years old or older: Never Smoker Medications: Home Medications: Medication Dose/Rte/Freq Days Qty Entered Last Max Daily Dose Reviewed INSULIN DETEMIR 35 UNITS SUBQ 11/10/23 11/12/23 (LEVEMIR FlexTouch (15mL)) Q12HR 1217 1313 Strength: 100 UNIT/ML (3 ML) PEN.INJCTR metFORMIN (GLUCOPHAGE) 1,000 MG PO BID 11/10/23 11/12/23 Strength: 1,000 MG TAB 1218 1312 SPIRONOLACTONE 25 MG PO BID 11/10/23 11/12/23 (ALDACTONE) 1220 1313 Strength: 25 MG TAB METOPROLOL TARTRATE 50 MG PO BID 09/24/22 11/12/23 (LOPRESSOR) 0849 1313 Strength: 50 MG TAB ATORVASTATIN (LIPITOR) 20 MG PO DAILY 09/24/22 11/12/23 Strength: 20 MG TAB 0850 1313 OMEGA-3 FATTY 1,000 MG PO BID 09/24/22 11/12/23 ACIDS/FISH OIL 0851 1313 (OMEGA 3 1,000 MG SOFTGEL) Strength: 300 MG-1,[address] 40 MG PO BID 09/24/22 11/12/23 (PROTONIX) 0852 1313 Strength: 40 MG TAB.DR [SYNJARDY] 12.5 09/24/22 Strength: 0853 INSULIN REGULAR 35 UNITS SUBQ AC 09/24/22 CONCENTRATE 0854 (HumuLIN R CONCENTRATE) Strength: 500 UNIT/ML (CONCENTRATED) VIAL [MOUNJARO] 09/24/22 Strength: 0855 Current Hospital Medications: Anti-Infective Agents Sig/Morales Start time Last Medication Dose [...] CKD (DEXTROSE 50%-WATER) IV 12/10 1414 Dose Instructions: (1)Insulin Human Lispro (HUMALOG): S/SCALE LOW Allergies: Coded Allergies: No Known Allergies (09/22/22) Review of Systems Constitutional: Denies: chills, fever. Respiratory: Denies: SOB, wheezing. Cardiovascular: Denies: chest pain, palpitations. GI: Reports: abdominal pain, nausea. Denies: constipation, diarrhea, hematemesis, hematochezia, melena, vomiting. Objective Physical Exam VS/I O: Last Documented: Result Date Time Pulse Ox 93 [...] Output, Urine 800 PATIENT WEIGHT: Weight (lb): 249 Weight (oz): 9.01 Weight (kg): 113.200 Medications: Active Meds + DC'd Last 24 Hrs Metoclopramide HCl (METOCLOPRAMIDE HCL) 5 MG Q8H PRN PRN IV (UNV) Enoxaparin Sodium (LOVENOX 40MG SYRINGE) 40 MG DAILY SUBQ Potassium Chloride (K-DUR) 20 MEQ STAT STA PO (DC) Furosemide (LASIX 20MG Inj) 20 MG ONCE ONE IV (DC) Potassium Bicarbonate/Citric Acid (EFFER-K 20 MEQ) 20 MEQ ONCE ONE PO ( DC) Methylprednisolone Sodium Succinate (Solu-MEDROL 40 MG/ML) 20 [...] IV Sodium Chloride (SODIUM CHLORIDE 0.9%) 100 ML Albuterol/Ipratropium (DUONEB) 3 ML RTQ4H INH Acetaminophen (TYLENOL) 650 MG Q4H PRN PRN PO Hydralazine HCl (APRESOLINE) 10 MG Q4H PRN PRN IV Ondansetron HCl (ondansetron HCL) 4 MG Q6H PRN PRN IV General appearance: obese, alert, awake, oriented HEENT: atraumatic, normocephalic Neck: no JVD Cardiovascular: normal S1/S2, regular rate rhythm Respiratory: equal breath sounds, symmetric expansion Abdomen: tenderness (luq), normal bowel sounds, no distention Extremities: decreased range of motion Musculoskeletal: decreased ROM Neuro/MARRIAGE COUNSELOR: alert, oriented X 3, no sensory deficits Skin: dry, intact Psychiatry: not homicidal, not suicidal Results Findings/Data: Laboratory Tests 11/13/23 0508: [Embedded Image Not Available] 11/13/23 0507: [Embedded Image Not Available] Laboratory Tests 11/13 11/13 11/13 11/13 11/13 1105 [...] % (Auto) (25.0 - 55.0 %) 36.3 [place] % (Auto) (0.0 - 10.0 %) 13.6 H Eos % (Auto) (0.0 - 5.0 %) 4.5 Baso % (Auto) (0.0 - 1.0 %) 1.5 H Neut # (Auto) (1.8 - 7.7 K/mm3) 2.42 Lymph # (Auto) (1.0 - 5.0 K/mm3) 2.00 [place] # (Auto) (0 - 0.8 K/mm3) 0.75 Eos # (Auto) (0.0 - 0.5 K/mm3) 0.25 Baso # (Auto) (0.0 - 0.2 K/mm3) 0.08 Nucleated RBC % (0 - 0 %) 0.0 Nucleated RBCs # (Man) (0.0 - 0.1 K/mm3) 0.00 Results: labs reviewed, vital signs reviewed, CT results reviewed Diagnosis, Assessment Plan Free Text DxA P Notes Free Text DxA P Notes: 52-year-old male with a past medical history of [...] and reflux symptoms, denies recent vomiting, hematemesis, hematochezia, melena, f/c, denies taking any medications or lifestyle changes to help alleviate symptoms. Patient denies ever receiving EGD/Colonoscopy prior, does not follow up with GI physician. CT Abd pelvis w/out contrast show no acute intra-abdominal findings. Assessment: -Abdominal Pain with Nausea - suspect gerd vs gastritis vs gastric/duodenal ulcer -Anemia - Mild -patient denies recent GI bleed -Hx NSTEMI sp cath x2 weeks - on lovenox Plan: -Recommend Protonix BID -Low dose reglan - monitor for EPS -Should symptoms persist consider EGD during admission -Discussed lifestyle changes, patient confirmed understanding -Monitor H/H, transfuse if hgb <7.0 -Monitor for acute GI bleed -IVF, antiemetics, pain management as needed at 1403 at 1536 RPT #:[id number] [facility] 2023-11-12 17:08:00 [facility] ([facility]) Pulmonary Consultation Note REPORT#:[id number] REPORT STATUS: Signed REPORT INITIALIZATION DATE:11/12/23 TIME: 1707 PATIENT: LEANDRO LEHMAN UNIT #: [id number] ROOM/BED: : 71 AGE: 52 SEX: M ATTEND: Lindsey Coyle MD ADM AUTHOR: Jose Miguel Roca MD REPT SERVICE DT/TIME: 11/12/231707 * ALL edits or amendments must be made on the electronic/computer document * History of Present Illness HPI Requesting clinician: Dr Rey Reason for consult: Hypoxia Chief complaint: Shortness of breath HPI: 52-year-old male was transferred from outside facility to [facility] with shortness of breath patient is obese, never been diagnosed with obstructive sleep apnea. Patient was admitted from October 19 8 November 05, with hypercapnic respiratory failure-also had left heart cath which was normal CT chest reviewed it is showing possibility of aspiration versus resolving pneumonia may be mild pulmonary edema External record: Patient was recently admitted at [facility] from October 27 through November 05 with hypercapnic respiratory failure, unstable angina and NSTEMI. Per the notes the patient had a left heart cath which showed normal coronary arteries and patient was discharged in a stable condition. History - Adult longitudinal Additional medical history: Diabetes mellitus type 2, hypertension, and GERD Additional surgical history: Denies any history of surgery Family history: Reports: Diabetes, Hypertension. Alcohol use: Denies EtOH use Drug use: Denies recreational drugs Smoking status for patients 13 years old or older: Never Smoker Allergies: Coded Allergies: No Known Allergies (09/22/22) Review of Systems Respiratory: Reports: SOB. Denies: wheezing. Cardiovascular: Reports: LAMBERT (dyspnea on exertion). Denies: chest pain. GI: Denies: nausea, vomiting. Objective Physical Exam Vitals: Last Documented: Result Date Time Pulse Ox 96 11/12 2300 B/P 108/68 11/12 2300 B/P Mean 81.6 11/12 2300 Temp 98.8 11/12 230 Pulse 99 11/12 2300 Resp 17 11/12 230 O2 Delivery High flow nasal cannula 11/12 1606 FiO2 50 11/12 0830 O2 Flow Rate 25 11/12 0830 General appearance: alert, awake Head/eyes: atraumatic, normocephalic Cardiovascular: regular rate rhythm Respiratory/chest: decreased breath sounds Abdomen: soft, non-tender Extremities: no pedal edema Neuro/MARRIAGE COUNSELOR: alert Diagnosis, Assessment Plan Free Text DxA P Notes Free Text DxA P Notes: 52-year-old male obese previous history of admission due to hypercapnic respiratory failure. Patient was transferred here for further care-patient presented to the ER with vomiting. During his previous admission patient's left heart cath was reported as normal. Patient is still requiring high flow nasal cannula Likely reason for hypoxia could be aspiration pneumonitis versus mild pulmonary edema, possibility of inflammation due to aspiration pneumonitis Current problems Acute hypoxic respiratory failure Obesity Possible aspiration pneumonitis versus pulmonary edema Plan Continue IV Zosyn for possible aspiration pneumonitis I will give 1 dose of Lasix and see the response and possibility of weaning down the oxygen. I will start the patient on low-dose Solu-Medrol Wean oxygen as tolerated to keep the O2 sat more than or equal to 92%. Carbon dioxide/bicarbonate in BMP is not suggestive of obesity hypoventilation syndrome as it is within normal limits on admission. Patient likely has obstructive sleep apnea for which she will need outpatient sleep study Thank you for the consult at 0018 RPT #:[id number] [facility] 2023-11-12 12:26:00 [facility] ([facility]) Hospitalist Progress Note REPORT#:[id number] REPORT STATUS: Signed REPORT INITIALIZATION DATE:11/12/23 TIME: 1226 PATIENT: LEANDRO LEHMAN UNIT #: [id number] ROOM/BED: 2085A : 71 AGE: 52 SEX: M ATTEND: Lindsey Coyle MD ADM AUTHOR: Lindsey Coyle MD REPT SERVICE DT/TIME: 11/12/23 1226 * ALL edits or amendments must be made on the electronic/computer document * Subjective Chief complaint: Shortness of breath Free Text Subj Notes Free Text Subj Notes: Patient seen and examined at bedside. Review of Systems Free Text ROS Notes Free Text ROS Notes: CONSTITUTIONAL: Patient denies fevers, chills, sweats and weight changes. EYES: Patient denies any visual symptoms. EARS, NOSE, AND THROAT: No difficulties with hearing. No symptoms of rhinitis or sore throat. CARDIOVASCULAR: Patient denies chest pains, palpitations, orthopnea and paroxysmal nocturnal dyspnea. RESPIRATORY: reports shortness of breath, cough, and dyspnea on exertion. no wheezing GI: Reports nausea and vomiting. diarrhea, constipation, abdominal pain, hematochezia or melena. : No urinary hesitancy or dribbling. No nocturia or urinary frequency. No abnormal urethral discharge. MUSCULOSKELETAL: No myalgias or arthralgias. NEUROLOGIC: No chronic headaches, no seizures. Patient denies numbness, tingling or weakness. PSYCHIATRIC: Patient denies problems with mood disturbance. No problems with anxiety. ENDOCRINE: No excessive urination or excessive thirst. DERMATOLOGIC: Patient denies any rashes or skin changes. Objective General VS/I O: Vital Signs: Date Time Temp Pulse Resp B/P [...] 11/12 0415 106 9 115/59 81 98 12/14 0400 111 26 114/62 82 99 /14 [...] 82 96 /14 0031 101 100 50 14 0030 101 21 135/66 93 100 14 0015 24 135/67 95 100 11/12 0000 100 24 126/62 86 100 11/12 [...] 11/11 2130 115 12 138/58 91 100 11/115 102 29 149/67 97 99 11/11 2100 [...] scale Measurement Method PATIENT WEIGHT: Weight (lb): 249 Weight (oz): 9.01 Weight (kg): 113.200 Free Text Obj Notes Free Text Obj Notes: Physical Exam General appearance: obese, alert, awake, oriented, no acute distress, conversational Head/Eyes: atraumatic, clear cornea, EOMI ENT: moist mucosal membranes, normal dentition, normal ear left, normal ear right, normal nose Neck: non-tender, no bruit/NL carotids, no JVD, no masses or swelling Cardiovascular: normal capillary refill, normal heart sounds, tachycardic, no gallop, no murmur, no rub Respiratory: decrease breath sounds bibasilar, rhonchi, symmetric expansion, no crackles or wheezes Abdomen: non-tender, normal bowel sounds, soft, no distention, no guarding, no mass/organomegaly, no rebound Extremities: moves all, no clubbing, no cyanosis, no edema Musculoskeletal: normal inspection, painless range of motion, no CVA tenderness, no muscle spasm Neuro/MARRIAGE COUNSELOR: alert, oriented X 3, CNII-XII intact, normal speech, no motor deficits, no sensory deficits Skin: dry, intact, normal color, normal temperature, no rash Lymphatics: axilla normal, inguinal normal, neck normal, no lymphadenopathy Psychiatry: normal affect, normal judgment/insight, normal mood, not homicidal, not suicidal Diagnosis, Assessment Plan Free Text DxA P Notes Free text DxA P notes: # Acute respiratory failure with hypoxemia secondary to pneumonia placed on high flow oxygen vapotherm at 30L at FiO2 80%, wean down to Vapotherm 25 L fio2 65% pulmonary consulted admitted to ICU #Pneumonia Suspect community-acquired pneumonia. Chest x-ray shows patchy left interstitial infiltrate. Cannot rule out multidrug-resistant organisms such as Pseudomonas given patient' s recent hospitalization 1 week ago. Cover for Pseudomonas with IV Zosyn 3.375 mg every 8 hours #Acute renal failure Suspect PRATEEK versus CKD stage IIIa Avoid nephrotoxic #Diabetes mellitus type 2 -hgb A1C 5.5 glucose checks AC and HS sliding scale insulin #Hypertension IV hydralazine 10mg q4hrs prn for SBP >170 or DBP >100 #Hyperlipidemia Atorvastatin 40 mg daily #Transaminitis Suspect due to fatty liver disease #Anemia Rule out iron deficiency #Obesity BMI 39.6 Counseled the patient on need for weight loss with diet and daily exercise. 40 minutes of critical care time spent Quality: Gen Med Crit Care VTE Prophylaxis VTE prophylaxis initiated: yes (mechanical comp device) Current Medications Current medication review: I attest that the foregoing medication list in the medical record is true, accurate, and complete to the best of my knowledge. at 1242 RPT #:[id number] [facility] 2023-11-12 04:41:00 [id number] [facility] PATIENT NAME: LEANDRO LEHMAN ADMIT DATE: 11/10/23 ACCOUNT NO: [id number] ROOM NO: V.S19 AGE: 52 REPORT TYPE: eNVL VENOUS ULTRASOUND SEX: M DATE OF : [birth year] ADMITTING PHYSICIAN:Lindsey Coyle MD ATTENDING PHYSICIAN:Lindsey Coyle MD *[facility]* [address], [place] [address] Lower Extremity Venous Duplex Evaluation Patient: Leandro Lehman Study Date: 11/11/2023 BP: URN: [id number] Location: : 1970 Age: 52 Gender: M Height: 67 in / 170.2 cm Weight: 108 lb / 49 kg BMI/BSA: 16.9 kg/m 2 / 1.51 m 2 *Ordering Physician: * Meryl Rey *Interpreting Physician: * Valerio Loza *Critical Care Physician: * Mirtha Bazzi Indications: RULE OUT DVT. Study data: Lower extremity venous duplex evaluation. Bilateral evaluation with grayscale 2D imaging, color Doppler imaging, and spectral Doppler analysis. Location: Bedside. Patient status: Inpatient. Patient room number: S19-A. Procedure: A vascular evaluation was performed. The study was technically limited due to patient positioning and limited access to patient. Study status: Stat. Venous flow: + + --------+ !Location !Properties ! + + --------+ !R CFV !Phasic; spontaneous; normal augmentation; compressible ! + + --------+ PATIENT NAME: LEANDRO LEHMAN !R GSV !Phasic; spontaneous; normal augmentation; compressible ! + + --------+ !R DFV !Phasic; spontaneous; normal augmentation; compressible ! + + --------+ !R FV !Phasic; spontaneous; normal augmentation; compressible ! + + --------+ !R popliteal!Phasic; spontaneous; normal augmentation; compressible ! + + --------+ !R PTV !Phasic ; spontaneous; normal augmentation; compressible! + + --------+ !L CFV !Phasic; spontaneous; normal augmentation; compressible ! + + --------+ !L GSV !Phasic; spontaneous; normal augmentation; compressible ! + + --------+ !L DFV !Phasic; spontaneous; normal augmentation; compressible ! + + --------+ !L FV !Phasic; spontaneous; normal augmentation; compressible ! + + --------+ !L popliteal!Phasic; spontaneous; normal augmentation; compressible ! + + --------+ !L PTV !Phasic; spontaneous; normal augmentation; compressible ! + + --------+ *Velocities are expressed in cm/s, Diameters are expressed in cm Conclusions 1. There is no evidence of acute deep or superficial venous thrombosis noted in the right lower extremity. 2. There is no evidence of acute deep or superficial venous thrombosis noted in the left lower extremity. Electronically signed by Valerio Loza 11/12/2023 04:41 at 0441 PATIENT NAME: LEANDRO LEHMAN [facility] 2023-11-11 14:26:00 [facility]) Hospitalist Progress Note REPORT#:[id number] REPORT STATUS: Signed REPORT INITIALIZATION DATE:11/11/23 TIME: 1426 PATIENT: LEANDRO LEHMAN UNIT #: [id number] ROOM/BED: [address] : [birth year] AGE: 52 SEX: M ATTEND: Lindsey Coyle MD ADM AUTHOR: Lindsey Coyle MD REPT SERVICE DT/TIME: 11/11/231425 * ALL edits or amendments must be made on the electronic/computer document * Subjective Chief complaint: Shortness of breath Free Text Subj Notes Free Text Subj Notes: Patient seen lying in bed. Review of Systems Free Text ROS Notes Free Text ROS Notes: CONSTITUTIONAL: Patient denies fevers, chills, sweats and weight changes. EYES: Patient denies any visual symptoms. EARS, NOSE, AND THROAT: No difficulties with hearing. No symptoms of rhinitis or sore throat. CARDIOVASCULAR: Patient denies chest pains, palpitations, orthopnea and paroxysmal nocturnal dyspnea. RESPIRATORY: reports shortness of breath, cough, and dyspnea on exertion. no wheezing GI: Reports nausea and vomiting. diarrhea, constipation, abdominal pain, hematochezia or melena. : No urinary hesitancy or dribbling. No nocturia or urinary frequency. No abnormal urethral discharge. MUSCULOSKELETAL: No myalgias or arthralgias. NEUROLOGIC: No chronic headaches, no seizures. Patient denies numbness, tingling or weakness. PSYCHIATRIC: Patient denies problems with mood disturbance. No problems with anxiety. ENDOCRINE: No excessive urination or excessive thirst. DERMATOLOGIC: Patient denies any rashes or skin changes. Objective General VS/I O: Vital Signs: Date Time Temp Pulse Resp B/P [...] 11/11 0800 High flow nasal cannula 11/11 800 107 30 134/60 87 92 11/11 0745 111 32 127/58 83 97 11/11 0730 116 12/13 0730 115 48 130/63 90 91 11/11 0715 120 19 130/60 86 98 11/11 0700 112 / 0700 111 28 124/60 85 90 11/11 0515 122 35 111/55 76 97 11/11 0500 111 30 118/57 80 98 / 0445 109 29 133/66 92 99 11/11 [...] 1915 120 24 113/56 81 96 11/10 1911 119 37 153/66 92 97 11/10 1900 [...] scale Measurement Method PATIENT WEIGHT: Weight (lb): 108 Weight (oz): 0.42 Weight (kg): 49.000 Free Text Obj Notes Free Text Obj Notes: Physical Exam General appearance: obese, alert, awake, oriented, no acute distress, conversational Head/Eyes: atraumatic, clear cornea, EOMI ENT: moist mucosal membranes, normal dentition, normal ear left, normal ear right, normal nose Neck: non-tender, no bruit/NL carotids, no JVD, no masses or swelling Cardiovascular: normal capillary refill, normal heart sounds, tachycardic, no gallop, no murmur, no rub Respiratory: decrease breath sounds bibasilar, rhonchi, symmetric expansion, no crackles or wheezes Abdomen: non-tender, normal bowel sounds, soft, no distention, no guarding, no mass/organomegaly, no rebound Extremities: moves all, no clubbing, no cyanosis, no edema Musculoskeletal: normal inspection, painless range of motion, no CVA tenderness, no muscle spasm Neuro/MARRIAGE COUNSELOR: alert, oriented X 3, CNII-XII intact, normal speech, no motor deficits, no sensory deficits Skin: dry, intact, normal color, normal temperature, no rash Lymphatics: axilla normal, inguinal normal, neck normal, no lymphadenopathy Psychiatry: normal affect, normal judgment/insight, normal mood, not homicidal, not suicidal Diagnosis, Assessment Plan Free Text DxA P Notes Free text DxA P notes: # Acute respiratory failure with hypoxemia secondary to pneumonia placed on high flow oxygen vapotherm at 30L at FiO2 80%, wean down to Vapotherm 25 L fio2 65% pulmonary consulted admitted to ICU #Pneumonia Suspect community-acquired pneumonia. Chest x-ray shows patchy left interstitial infiltrate. Cannot rule out multidrug-resistant organisms such as Pseudomonas given patient' s recent hospitalization 1 week ago. Cover for Pseudomonas with IV Zosyn 3.375 mg every 8 hours #Acute renal failure Suspect PRATEEK versus CKD stage IIIa Avoid nephrotoxic #Diabetes mellitus type 2 Check hgb A1C glucose checks AC and HS sliding scale insulin #Hypertension IV hydralazine 10mg q4hrs prn for SBP >170 or DBP >100 #Hyperlipidemia Atorvastatin 40 mg daily #Transaminitis Suspect due to fatty liver disease #Anemia Rule out iron deficiency #Obesity BMI 39.6 Counseled the patient on need for weight loss with diet and daily exercise. 40 minutes of critical care time spent Quality: Gen Med Crit Care VTE Prophylaxis VTE prophylaxis initiated: yes (mechanical comp device) Current Medications Current medication review: I attest that the foregoing medication list in the medical record is true, accurate, and complete to the best of my knowledge. at 1427 RPT #:[id number] [facility] 2023-11-11 13:10:00 [facility] ([facility]) Critical Care Progress Note REPORT#:[id number] REPORT STATUS: Signed REPORT INITIALIZATION DATE:11/11/23 TIME: 131 PATIENT: LEANDRO LEHMAN UNIT #: [id number] ROOM/BED: [address] : [birth year] AGE: 52 SEX: M ATTEND: Lindsey Coyle MD ADM AUTHOR: Meryl Rey MD REPT SERVICE DT/TIME: 11/11/23 1310 * ALL edits or amendments must be made on the electronic/computer document * Subjective Chief complaint: shortness of breath HPI: This is a 52-year-old morbidly obese male who was transferred from an outside facility. Patient was recently admitted at [facility] from October 27 through November 05 with hypercapnic respiratory failure, unstable angina and NSTEMI. Per the notes the patient had a left heart cath which showed normal coronary arteries and patient was discharged in a stable condition. Per patient he has been having nausea and vomiting since discharge. He vomited multiple times today. Had complaints of worsening shortness of breath and had a fall athome after which he was taken to the ER. And brought to the ICU, the patient is awake and alert. Denies any shortness of breath. He is on Vapotherm 20 L 50%. Denies any abdominal pain or urinary complaint. No history of recent fever or chills. Review of Systems Constitutional: Denies: chills, fatigue, fever, generalized weakness, lethargy, malaise. Respiratory: Reports: LAMBERT (dyspnea on exertion). Denies: hemoptysis, non productive cough, parox nocturnal dyspnea, pleurisy, pleuritic pain, pneumonia. Cardiovascular: Reports: LAMBERT (dyspnea on exertion). Denies: chest pain, edema, orthopnea, palpitations, parox nocturnal dyspnea. GI: Denies: abdominal pain, anorexia, constipation, diarrhea, dysphagia. Neuro: Denies: bladder dysfunction, bowel dysfunction. Objective General VS/I O Last Documented: Result Date Time Pulse Ox 88 11/11 09 B/P 143/63 11/11 900 B/P Mean 91 [...] scale Measurement Method PATIENT WEIGHT: Weight (lb): 108 Weight (oz): 0.42 Weight (kg): 49.000 Medications: Active Meds + DC'd Last 24 Hrs Midodrine (PROAMATINE 5MG TAB) 5 MG BID [...] IV Sodium Chloride (SODIUM CHLORIDE 0.9%) 250 ML Ceftriaxone Sodium (ROCEPHIN) 1,000 MG Q24H IV (DC) Sodium Chloride (SODIUM CHLORIDE 0.9% PF) 10 ML Piperacillin Sod/Tazobactam Sod (ZOSYN) 3.375 G Q8H IV Sodium Chloride (SODIUM CHLORIDE 0.9%) 100 ML Norepinephrine/Dextrose (LEVOPHED 4 MG/250 ML D5W) 250 ML TITRATE IV Albuterol/Ipratropium (DUONEB) 3 ML RTQ4H INH Acetaminophen (TYLENOL) 650 MG Q4H PRN PRN PO Dextrose/Water (DEXTROSE 50%-WATER) 50 ML ASDIR PRN IV (DC) Hydralazine HCl (APRESOLINE) 10 MG Q4H PRN PRN IV Ondansetron HCl (ondansetron HCL) 4 MG Q6H PRN PRN IV Dietitian nutrition assessment The data set between the solid lines has been imported from the dietitian's assessment. BMI Calculated: 16.9 Nutrition related diagnosis: Nutrition diagnosis details: Nutrition problem: Nutrition etiology: Nutrition signs and symptoms: Nutrition prescription: Dietitian name: Assessment completed: Physical Exam General appearance: alert, awake, oriented Neck: full range of motion, non-tender Cardiovascular: normal capillary refill, normal heart sounds, regular rate and rhythm Respiratory: decreased breath sounds Abdomen: soft, non-tender, normal bowel sounds Extremities: moves all, no clubbing, no cyanosis, no edema Neuro/MARRIAGE COUNSELOR: alert, oriented X 3 Results Findings/data: Laboratory Tests 11/10 1418 Blood Gas Puncture Site [...] % (Auto) (25.0 - 55.0 %) 26.0 [place] % (Auto) (0.0 - 10.0 %) 9.8 Eos % (Auto) (0.0 - 5.0 %) 2.3 Baso % (Auto) (0.0 - 1.0 %) 1.2 H Neut # (Auto) (1.8 - 7.7 K/mm3) 3.08 Lymph # (Auto) (1.0 - 5.0 K/mm3) 1.33 [place] # (Auto) (0 - 0.8 K/mm3) 0.50 Eos # (Auto) (0.0 - 0.5 K/mm3) 0.12 Baso # (Auto) (0.0 - 0.2 K/mm3) 0.06 Nucleated RBC % (0 - 0 %) 0.0 Nucleated RBCs # (Man) (0.0 - 0.1 K/mm3) 0.00 Laboratory Tests 11/10 1535 Other Body Source POC Nasal Influenza A (Negative) Negative POC Nasal Influenza B (Negative) Negative Laboratory Tests 11/11/23 0044: [Embedded Image Not Available] Microbiology: 11/10 1736 BLOOD: Blood Culture - RECD 11/10 1736 BLOOD: Blood Culture - RECD 11/10 1457 NASAL: MRSA Screen - UNV Pending 11/10 1457 BLOOD: Blood Culture - RECD 11/10 1457 BLOOD: Blood Culture - RECD 11/10 1400 NASAL: MRSA Screen - CAN Cancelled: Duplicate order, test already ordered. Spec #:[id number] Diagnosis, Assessment Plan Free text A P: History of Present Illness: This is a 52-year-old morbidly obese male who was transferred from an outside facility. Patient was recently admitted at [facility] from October 27 through November 05 with hypercapnic respiratory failure, unstable angina and NSTEMI. Per the notes the patient had a left heart cath which showed normal coronary arteries and patient was discharged in a stable condition. Per patient he has been having nausea and vomiting since discharge. He vomited multiple times today. Had complaints of worsening shortness of breath and had a fall athome after which he was taken to the ER. And brought to the ICU, the patient is awake and alert. Denies any shortness of breath. He is on Vapotherm 20 L 50%. Denies any abdominal pain or urinary complaint. No history of recent fever or chills. 11/11/23-on Vapotherm 25 L 65%. Patient denies any shortness of breath. No cough or fever. Ultrasound lower extremity venous Doppler pending. Echo shows grade 1 diastolic dysfunction. Consult Pulmonary. Hospital Course: - Admitted to ICU Active Problems: # Acute hypoxic respiratory failure?? Pneumonia Start Zosyn empirically Breathing treatment with DuoNeb and Pulmicort Avoid sedative Get sputum culture and blood culture CT chest at the outside facility showed no emboli or any suspicious findings. echo-grade1 diastolic dysfunction #CHAPARRO/OHS BiPAP as needed at night #nausea/vometing CT abdomen pelvis did not show any acute changes Zofran p.o. Keep n.p.o. # NSTEMI Unstable angina ECHO as above Continue home meds # Hypotension Now off pressors start low dose midodrine #S/P FALL CT Head did not show any acute changes Comorbidities: Hypoxic hypercapnic respiratory failure ICU Patient Safety Checklist: - Diet: cardiac diet - Bowel regimen: Senna/Colace - Accuchecks Q: q 6 - Antibiotics de-escalation/discontinuation (if no, reason): Zosyn - Home meds resumed: except - Ulcer prophylaxis (discontinue if on diet): Protonix - DVT prophylaxis: SCD, - Taylor: - Lines: PIV - Wounds or pressure ulcer present on admission: - Next of kin: TBD - Code status: Full code - Disposition: [facility] Critical care time: 40 minutes, excluding procedures, was spent directly evaluating the patient at the bedside, interpreting labs and imaging, ordering new labs and medications, and discussing the case with the ICU multidisciplinary team, consultants and admitting teams. Quality: Gen Med Crit Care VTE Prophylaxis VTE prophylaxis initiated: yes (mechanical comp device) Current Medications Current medication review: I attest that the foregoing medication list in the medical record is true, accurate, and complete to the best of my knowledge. at 1345 RPT #:[id number] [facility] 2023-11-11 09:01:00 [id number] [facility] PATIENT NAME: LEANDRO LEHMAN ADMIT DATE: 11/10/23 ACCOUNT NO: [id number] ROOM NO: V.S19 AGE: 52 REPORT TYPE: eECHOCARDIOGRAM REPORT SEX: M DATE OF : [birth year] ADMITTING PHYSICIAN:Jeremias Ibarra MD ATTENDING PHYSICIAN:Jeremias Ibarra MD *[facility]* [address], [place] [address] Transthoracic Echocardiogram Patient: Leandro Lehman Study Date: 11/10/2023 BP: URN: [id number] Location: : 1970 Age: 52 Gender: M Height: 67 in / 170.2 cm Weight: 253.5 lb / 115 kg BMI/BSA: 39.7 kg/m 2 / 2.39 m 2 *Ordering Physician: * Meryl Rey *Interpreting Physician: * Judy Grey MD *Critical Care Physician: * Donovan Rudd Than Indications: Hypotensive. Study data: Transthoracic echocardiogram. Complete 2D, complete spectral Doppler, and color Doppler. Location: Bedside. Patient status: Inpatient. Patient room number: s19. Study status: Stat. Findings Left ventricle: The cavity size is normal. Wall thickness is mildly increased. Systolic function is normal. The estimated ejection fraction is 55-60%. Although no diagnostic regional wall motion abnormality is identified, this possibility cannot be completely excluded on the basis of this study. Grade I diastolic dysfunction. Right ventricle: The cavity size is normal. Systolic function is normal. Left atrium: The atrium is normal in size. PATIENT NAME: LEANDRO LEHMAN Right atrium: The atrium is normal in size. Aorta: Aortic root: The root is normal-sized. Aortic valve: The valve is structurally normal. The valve is trileaflet. There is no evidence of stenosis. There is no regurgitation. Mitral valve: The valve is structurally normal. There is no evidence of stenosis. There is no regurgitation. Tricuspid valve: The valve is structurally normal. There is mild regurgitation. Pulmonic valve: The annulus is normal-sized. There is no regurgitation. Pericardium: There is no pericardial effusion. Pulmonary arteries: Not well visualized. Systemic veins: Inferior vena cava: The IVC is normal-sized. Measurements [...] cavity size is normal. Wall thickness is mildly increased. Systolic function is normal. The estimated ejection fraction is 55-60%. Although no diagnostic regional wall motion abnormality is identified, this possibility cannot be completely excluded on the basis of this study. Grade I diastolic dysfunction. Electronically signed by Judy Grey MD 11/11/2023 09:01 at 0901 PATIENT NAME: LEANDRO LEHMAN [facility] 2023-11-11 08:15:00 [facility] Critical Care Progress Note REPORT#:[id number] REPORT STATUS: Signed REPORT INITIALIZATION DATE:11/11/23 TIME: 814 PATIENT: LEANDRO LEHMAN UNIT #: [id number] ROOM/BED: [address] : [birth year] AGE: 52 SEX: M ATTEND: Lindsey Coyle MD ADM AUTHOR: Meryl Rey MD REPT SERVICE DT/TIME: 11/11/23 0815 * ALL edits or amendments must be made on the electronic/computer document * Subjective Chief complaint: shortness of breath HPI: This is a 52-year-old morbidly obese male who was transferred from an outside facility. Patient was recently admitted at [facility] from October 27 through November 05 with hypercapnic respiratory failure, unstable angina and NSTEMI. Per the notes the patient had a left heart cath which showed normal coronary arteries and patient was discharged in a stable condition. Per patient he has been having nausea and vomiting since discharge. He vomited multiple times today. Had complaints of worsening shortness of breath and had a fall athome after which he was taken to the ER. And brought to the ICU, the patient is awake and alert. Denies any shortness of breath. He is on Vapotherm 20 L 50%. Denies any abdominal pain or urinary complaint. No history of recent fever or chills. Review of Systems Constitutional: Denies: chills, fatigue, fever, generalized weakness, lethargy, malaise. Respiratory: Denies: LAMBERT (dyspnea on exertion), hemoptysis, non productive cough, parox nocturnal dyspnea, pleurisy, pleuritic pain. Cardiovascular: Denies: chest pain, LAMBERT (dyspnea on exertion), edema, orthopnea, palpitations. GI: Denies: abdominal pain, anorexia, constipation, diarrhea, dysphagia. Neuro: Denies: bladder dysfunction, bowel dysfunction. Objective General VS/I O Last Documented: Result Date Time Pulse Ox 97 11/11 515 B/P 111/55 11/11 515 B/P Mean 76 11/11 515 Pulse 122 11/11 515 Resp 35 11/11 515 O2 Delivery Non rebreather mask 11/11 400 O2 Flow Rate 15 11/11 040 Temp 99.5 11/11 400 FiO2 80 11/11 0240 24 hour I O ending at 0700: 11/11 0700 11/10 1900 Intake Total 700.00 Output Total 600 800 Balance 100.00 -800 Intake, IV 400.00 Intake, Oral 300 Output, Urine 600 800 Patient 49 kg 114.7 kg Weight Weight Bed scale Bed scale Measurement Method PATIENT WEIGHT: Weight (lb): 108 Weight (oz): 0.42 Weight (kg): 49.000 Medications: Active Meds + DC'd Last 24 Hrs Atorvastatin Calcium (LIPITOR 20MG TAB) 20 MG [...] IV Sodium Chloride (SODIUM CHLORIDE 0.9%) 250 ML Ceftriaxone Sodium (ROCEPHIN) 1,000 MG Q24H IV (DC) Sodium Chloride (SODIUM CHLORIDE 0.9% PF) 10 ML Piperacillin Sod/Tazobactam Sod (ZOSYN) 3.375 G Q8H IV Sodium Chloride (SODIUM CHLORIDE 0.9%) 100 ML Norepinephrine/Dextrose (LEVOPHED 4 MG/250 ML D5W) 250 ML TITRATE IV Albuterol/Ipratropium (DUONEB) 3 ML RTQ4H INH Acetaminophen (TYLENOL) 650 MG Q4H PRN PRN PO Dextrose/Water (DEXTROSE 50%-WATER) 50 ML ASDIR PRN IV (DC) Hydralazine HCl (APRESOLINE) 10 MG Q4H PRN PRN IV Ondansetron HCl (ondansetron HCL) 4 MG Q6H PRN PRN IV Dietitian nutrition assessment The data set between the solid lines has been imported from the dietitian's assessment. BMI Calculated: 16.9 Nutrition related diagnosis: Nutrition diagnosis details: Nutrition problem: Nutrition etiology: Nutrition signs and symptoms: Nutrition prescription: Dietitian name: Assessment completed: Physical Exam General appearance: alert, awake, oriented Neck: full range of motion, non-tender Cardiovascular: normal capillary refill, normal heart sounds, regular rate and rhythm Respiratory: decreased breath sounds Abdomen: soft, non-tender, normal bowel sounds Extremities: moves all, no clubbing, no cyanosis, no edema Neuro/MARRIAGE COUNSELOR: alert, oriented X 3 Results Findings/data: Laboratory Tests 11/10 1418 Blood Gas Puncture Site [...] 11/11 11/10 11/10 0524 0044 0001 1813 1704 Chemistry Sodium (136 - 145 mmol/L) 137 [...] H Total Alk Phosphatase (45 - 117 69 IUnit/L) Troponin I (0 - 54 pg/mL) 12.600 [...] (Auto) (25.0 - 55.0 %) 26.0 27.0 [place] % (Auto) (0.0 - 10.0 %) 9.8 9.0 Eos % (Auto) (0.0 - 5.0 %) 2.3 2.0 Baso % (Auto) (0.0 - 1.0 %) 1.2 H 0.6 Neut # (Auto) (1.8 - 7.7 K/mm3) 3.08 4.28 Lymph # (Auto) (1.0 - 5.0 K/mm3) 1.33 1.90 [place] # (Auto) (0 - 0.8 K/mm3) 0.50 [...] pH (5.0 - 8.0) 5.0 Ur Specific [place] (1.001 - 1.035) 1.007 Urine Protein (NEGATIVE [...] Mucus (FEW #/LPF) FEW Laboratory Tests 11/11/23 0044: [Embedded Image Not Available] 11/10/23 1123: [Embedded Image Not Available] Microbiology: 11/10 1736 BLOOD: Blood Culture - RECD 11/10 1736 BLOOD: Blood Culture - RECD 11/10 1457 NASAL: MRSA Screen - RECD 11/10 1457 BLOOD: Blood Culture - RECD 11/10 1457 BLOOD: Blood Culture - RECD 11/10 1400 NASAL: MRSA Screen - CAN Cancelled: Duplicate order, test already ordered. Spec #:[id number] Diagnosis, Assessment Plan Free text A P: History of Present Illness: This is a 52-year-old morbidly obese male who was transferred from an outside facility. Patient was recently admitted at [facility] from October 27 through November 05 with hypercapnic respiratory failure, unstable angina and NSTEMI. Per the notes the patient had a left heart cath which showed normal coronary arteries and patient was discharged in a stable condition. Per patient he has been having nausea and vomiting since discharge. He vomited multiple times today. Had complaints of worsening shortness of breath and had a fall athome after which he was taken to the ER. And brought to the ICU, the patient is awake and alert. Denies any shortness of breath. He is on Vapotherm 20 L 50%. Denies any abdominal pain or urinary complaint. No history of recent fever or chills. Hospital Course: - Admitted to ICU Active Problems: # Acute hypoxic respiratory failure?? Pneumonia Start Zosyn empirically Breathing treatment with DuoNeb and Pulmicort Avoid sedative Get sputum culture and blood culture CT chest at the outside facility showed no emboli or any suspicious findings. #CHAPARRO/OHS BiPAP as needed at night #nausea/vometing CT abdomen pelvis Zofran p.o. Keep n.p.o. # NSTEMI Unstable angina Check echocardiogram Continue home meds # Hypotension Now off pressors #S/P FALL check CT Head Comorbidities: Hypoxic hypercapnic respiratory failure ICU Patient Safety Checklist: - Diet: NPO - Bowel regimen: Senna/Colace - Accuchecks Q: q 6 - Antibiotics de-escalation/discontinuation (if no, reason): Zosyn - Home meds resumed: except - Ulcer prophylaxis (discontinue if on diet): Protonix - DVT prophylaxis: SCD, - Taylor: - Lines: PIV - Wounds or pressure ulcer present on admission: - Next of kin: TBD - Code status: Full code - Disposition: ICU Critical care time: 45 minutes, excluding procedures, was spent directly evaluating the patient at the bedside, interpreting labs and imaging, ordering new labs and medications, and discussing the case with the ICU multidisciplinary team, consultants and admitting teams. Quality: Gen Med Crit Care VTE Prophylaxis VTE prophylaxis initiated: yes (mechanical comp device) Current Medications Current medication review: I attest that the foregoing medication list in the medical record is true, accurate, and complete to the best of my knowledge. at 1606 RPT #:[id number] [facility] 2023-11-10 13:22:00 [facility] ([facility]) Hospitalist History Physical REPORT#:[id number] REPORT STATUS: Signed REPORT INITIALIZATION DATE:11/10/23 TIME: 132 PATIENT: LEANDRO LEHMAN UNIT #: [id number] ROOM/BED: [address] : [address] AGE: 52 SEX: M ATTEND: Jeremias Ibarra MD ADM AUTHOR: Jeremias Ibarra MD REPT SERVICE DT/TIME: 11/10/23 1322 * ALL edits or amendments must be made on the electronic/computer document * See Addendum History of Present Illness HPI Chief complaint: Shortness of breath HPI: 52-year-old male with past medical history of obesity who presents to the hospital with a chief complaint of shortness of breath. The patient was transferred from an outside facility to [facility]. Patient states he had a fall at home today and so he was taken to the emergency room where he complained of shortness of breath. He denies any fever or chills. He reports cough, nausea, and vomiting. External record: Patient was recently admitted at [facility] from October 27 through November 05 with hypercapnic respiratory failure, unstable angina and NSTEMI. Per the notes the patient had a left heart cath which showed normal coronary arteries and patient was discharged in a stable condition. History Past Medical Surgical Hx Additional medical history: Diabetes mellitus type 2, hypertension, and GERD Additional surgical history: Denies any history of surgery Family History Family history: Reports: Diabetes, Hypertension. Social History Alcohol use: Denies EtOH use Drug use: Denies recreational drugs Smoking status for patients 13 years old or older: Never Smoker Medication/Allergy-Vaccine Hx Allergies: Coded Allergies: No Known Allergies (09/22/22) Review of Systems Free Text ROS Notes Free Text ROS Notes: CONSTITUTIONAL: Patient denies fevers, chills, sweats and weight changes. EYES: Patient denies any visual symptoms. EARS, NOSE, AND THROAT: No difficulties with hearing. No symptoms of rhinitis or sore throat. CARDIOVASCULAR: Patient denies chest pains, palpitations, orthopnea and paroxysmal nocturnal dyspnea. RESPIRATORY: reports shortness of breath, cough, and dyspnea on exertion. no wheezing GI: Reports nausea and vomiting. diarrhea, constipation, abdominal pain, hematochezia or melena. : No urinary hesitancy or dribbling. No nocturia or urinary frequency. No abnormal urethral discharge. MUSCULOSKELETAL: No myalgias or arthralgias. NEUROLOGIC: No chronic headaches, no seizures. Patient denies numbness, tingling or weakness. PSYCHIATRIC: Patient denies problems with mood disturbance. No problems with anxiety. ENDOCRINE: No excessive urination or excessive thirst. DERMATOLOGIC: Patient denies any rashes or skin changes. OBJECTIVE VS/I O: Vital Signs Date Temp Pulse Resp B/P B/P [...] and BMI Weight (kg): 114.700 BMI: 39.6 Medications: Active Meds + DC'd Last 24 Hrs Mupirocin (BACTROBAN 2% OINTMENT) 1 APPLIC BID [...] HCL) 4 MG Q6H PRN PRN IV Results Findings/Data: Laboratory Tests: 11/10 11/10 1123 1123 Chemistry Sodium [...] % (Auto) (25.0 - 55.0 %) 27.0 [place] % (Auto) (0.0 - 10.0 %) 9.0 Eos % (Auto) (0.0 - 5.0 %) 2.0 Baso % (Auto) (0.0 - 1.0 %) 0.6 Neut # (Auto) (1.8 - 7.7 K/mm3) 4.28 Lymph # (Auto) (1.0 - 5.0 K/mm3) 1.90 [place] # (Auto) (0 - 0.8 K/mm3) 0.63 Eos # (Auto) (0.0 - 0.5 K/mm3) 0.14 Baso # (Auto) (0.0 - 0.2 K/mm3) 0.04 Nucleated RBC % (0 - 0 %) 0.0 Nucleated RBCs # (Man) (0.0 - 0.1 K/mm3) 0.00 Urines Urine Color (YELLOW) Light-Yellow Urine Appearance (CLEAR) CLEAR Urine pH (5.0 - 8.0) 5.0 Ur Specific [place] (1.001 - 1.035) 1.007 Urine Protein (NEGATIVE [...] Mucus (FEW #/LPF) FEW Laboratory Tests 11/10/23 1123: [Embedded Image Not Available] Radiology data: Recent Impressions: RADIOLOGY - XR CHEST 1 V 11/10 1138 Report Impression - Status: SIGNED Entered: 11/10/2023 1200 IMPRESSION: Patchy left interstitial infiltrate. Impression By: [email or web address] - Arnaud Duggan M.D. Free Text PE Notes Free Text PE Notes: Physical Exam General appearance: obese, alert, awake, oriented, no acute distress, conversational Head/Eyes: atraumatic, clear cornea, EOMI ENT: moist mucosal membranes, normal dentition, normal ear left, normal ear right, normal nose Neck: non-tender, no bruit/NL carotids, no JVD, no masses or swelling Cardiovascular: normal capillary refill, normal heart sounds, tachycardic, no gallop, no murmur, no rub Respiratory: decrease breath sounds bibasilar, rhonchi, symmetric expansion, no crackles or wheezes Abdomen: non-tender, normal bowel sounds, soft, no distention, no guarding, no mass/organomegaly, no rebound Extremities: moves all, no clubbing, no cyanosis, no edema Musculoskeletal: normal inspection, painless range of motion, no CVA tenderness, no muscle spasm Neuro/MARRIAGE COUNSELOR: alert, oriented X 3, CNII-XII intact, normal speech, no motor deficits, no sensory deficits Skin: dry, intact, normal color, normal temperature, no rash Lymphatics: axilla normal, inguinal normal, neck normal, no lymphadenopathy Psychiatry: normal affect, normal judgment/insight, normal mood, not homicidal, not suicidal Diagnosis, Assessment Plan Free Text A P: # Acute respiratory failure with hypoxemia secondary to pneumonia placed on high flow oxygen vapotherm at 30L at FiO2 80% admitted to ICU #Pneumonia Suspect community-acquired pneumonia. Chest x-ray shows patchy left interstitial infiltrate. Cannot rule out multidrug-resistant organisms such as Pseudomonas given patient' s recent hospitalization 1 week ago. Cover for Pseudomonas with IV Zosyn 3.375 mg every 8 hours #Acute renal failure Suspect PRATEEK versus CKD stage IIIa Avoid nephrotoxic #Diabetes mellitus type 2 Check hgb A1C glucose checks AC and HS sliding scale insulin #Hypertension IV hydralazine 10mg q4hrs prn for SBP >170 or DBP >100 #Hyperlipidemia Atorvastatin 40 mg daily #Transaminitis Suspect due to fatty liver disease #Anemia Rule out iron deficiency #Obesity BMI 39.6 Counseled the patient on need for weight loss with diet and daily exercise. 40 minutes of critical care time spent Quality: Gen Med Crit Care VTE Prophylaxis VTE prophylaxis initiated: yes (mechanical comp device) Current Medications Current medication review: I attest that the foregoing medication list in the medical record is true, accurate, and complete to the best of my knowledge. at 1644 Addendum 1: 11/10/231644 by Jeremias Ibarra MD #Shock rule out septic shock, remains on Levophed drip- at 1645 RPT #:[id number] [facility] 2023-11-10 11:32:00 [facility]) Critical Care Consult Note REPORT#:[id number] REPORT STATUS: Signed REPORT INITIALIZATION DATE:11/10/23 TIME: 1131 PATIENT: LEANDRO LEHMAN UNIT #: [id number] ROOM/BED: [address] : 71 AGE: 52 SEX: M ATTEND: Jeremias Ibarra MD ADM AUTHOR: Meryl Rey MD REPT SERVICE DT/TIME: 11/10/23 1132 * ALL edits or amendments must be made on the electronic/computer document * History of Present Illness HPI Reason for consult: respiratory failure Chief complaint: shortness of breath PCP: PCP: Sang Rey MD HPI: This is a 52-year-old morbidly obese male who was transferred from an outside facility. Patient was recently admitted at [facility] from October 27 through November 05 with hypercapnic respiratory failure, unstable angina and NSTEMI. Per the notes the patient had a left heart cath which showed normal coronary arteries and patient was discharged in a stable condition. Per patient he has been having nausea and vomiting since discharge. He vomited multiple times today. Had complaints of worsening shortness of breath and had a fall athome after which he was taken to the ER. And brought to the ICU, the patient is awake and alert. Denies any shortness of breath. He is on Vapotherm 20 L 50%. Denies any abdominal pain or urinary complaint. No history of recent fever or chills. History - Adult longitudinal Additional medical history: CAD,NSTEMI,CHAPARRO/OHS Smoking status for patients 13 years old or older: Never Smoker Allergies: Coded Allergies: No Known Allergies (09/22/22) Review of Systems ROS Constitutional: Denies: chills, fatigue, fever, generalized weakness, lethargy. Respiratory: Denies: LAMBERT (dyspnea on exertion), hemoptysis, non productive cough, parox nocturnal dyspnea, pleurisy. Cardiovascular: Denies: chest pain, LAMBERT (dyspnea on exertion), edema, orthopnea. GI: Reports: vomiting. Neuro: Denies: bladder dysfunction, bowel dysfunction. Objective Physical Exam VS/I O: Last Documented: Result Date Time Pulse Ox 91 11/10 1230 B/P 113/57 11/10 1230 B/P Mean 82 11/10 1230 Pulse 110 11/10 1230 Resp 30 11/10 1230 FiO2 50 11/10 1121 O2 Flow Rate 20 11/10 1121 O2 Delivery High flow nasal cannula 11/10 1121 Temp 97.8 11/10 0930 Patient Weight and BMI Weight (kg): 114.700 BMI: 39.6 Medications: Active Meds + DC'd Last 24 Hrs Atorvastatin Calcium (LIPITOR 20MG TAB) 20 MG [...] IV Sodium Chloride (SODIUM CHLORIDE 0.9%) 250 ML Ceftriaxone Sodium (ROCEPHIN) 1,000 MG Q24H IV Sodium Chloride (SODIUM CHLORIDE 0.9% PF) 10 ML Norepinephrine/Dextrose (LEVOPHED 4 MG/250 ML D5W) 250 ML TITRATE IV Albuterol/Ipratropium (DUONEB) 3 ML RTQ4H INH Acetaminophen (TYLENOL) 650 MG Q4H PRN PRN PO Dextrose/Water (DEXTROSE 50%-WATER) 50 ML ASDIR PRN IV (CKD) Hydralazine HCl (APRESOLINE) 10 MG Q4H PRN PRN IV Ondansetron HCl (ondansetron HCL) 4 MG Q6H PRN PRN IV General appearance: alert, awake, oriented Neck: full range of motion, non-tender Cardiovascular: normal capillary refill, normal heart sounds, regular rate and rhythm Respiratory: decreased breath sounds Abdomen: soft, non-tender, normal bowel sounds Extremities: moves all, no clubbing, no cyanosis, no edema Diagnosis, Assessment Plan Free text DxA P: History of Present Illness: This is a 52-year-old morbidly obese male who was transferred from an outside facility. Patient was recently admitted at [facility] from October 27 through November 05 with hypercapnic respiratory failure, unstable angina and NSTEMI. Per the notes the patient had a left heart cath which showed normal coronary arteries and patient was discharged in a stable condition. Per patient he has been having nausea and vomiting since discharge. He vomited multiple times today. Had complaints of worsening shortness of breath and had a fall athome after which he was taken to the ER. And brought to the ICU, the patient is awake and alert. Denies any shortness of breath. He is on Vapotherm 20 L 50%. Denies any abdominal pain or urinary complaint. No history of recent fever or chills. Hospital Course: - Admitted to ICU Active Problems: # Acute hypoxic respiratory failure?? Pneumonia Start Zosyn empirically Breathing treatment with DuoNeb and Pulmicort Avoid sedative Get sputum culture and blood culture CT chest at the outside facility showed no emboli or any suspicious findings. #CHAPARRO/OHS BiPAP as needed at night #nausea/vometing CT abdomen pelvis Zofran p.o. Keep n.p.o. # NSTEMI Unstable angina Check echocardiogram Continue home meds # Hypotension Now off pressors #S/P FALL check CT Head Comorbidities: Hypoxic hypercapnic respiratory failure ICU Patient Safety Checklist: - Diet: NPO - Bowel regimen: Senna/Colace - Accuchecks Q: q 6 - Antibiotics de-escalation/discontinuation (if no, reason): Zosyn - Home meds resumed: except - Ulcer prophylaxis (discontinue if on diet): Protonix - DVT prophylaxis: SCD, - Taylor: - Lines: PIV - Wounds or pressure ulcer present on admission: - Next of kin: TBD - Code status: Full code - Disposition: ICU Critical care time: 45 minutes, excluding procedures, was spent directly evaluating the patient at the bedside, interpreting labs and imaging, ordering new labs and medications, and discussing the case with the ICU multidisciplinary team, consultants and admitting teams. at 1407 RPT #:[id number] [facility] 2022-09-24 09:36:00 [id number] [facility] [address] [place] [address] PATIENT NAME: LEANDRO LEHMAN ADMIT DATE: 09/24/22 ACCOUNT NO: [id number] ROOM NO: AGE: 51 REPORT TYPE: OPERATIVE REPORT SEX: M ADMITTING PHYSICIAN: ATTENDING PHYSICIAN: Lukasz Saul MD OPERATION DATE: 09/24/2022 PROCEDURE: EGD. INDICATIONS: Persistent dyspepsia, nausea, vomiting, anorexia. POSTOPERATIVE: See below. Complexity; complex procedure, tolerance to anesthesia excellent. PROCEDURE IN DETAIL: The procedure with possible complications and alternatives including but not limited to possibility of bleeding, [...] of the stomach with almost no visualization of the mucosa. As a result, given the excessively high risk of aspiration. He was decompressed and the scope pulled out as soon as possible. Procedure has to be rescheduled with 2 days of clear liquid diet. IMPRESSION: Esophagitis, large gastric bezoar. PLAN: 1. Proton pump inhibitor will be prescribed for him. 2. Low residue diet. 3. He will be rescheduled after 2 days of clear liquid diet. Hopefully, by that time bezoar will get smaller, all pass and we will be able to see better. COMPLICATIONS: None. The patient tolerated the procedure well. DISPOSITION: As above. Dictated By: Lukasz Saul MD Date Dictated: 09/24/2022 09:36:29 PATIENT NAME: LEANDRO LEHMAN Date Transcribed: 09/24/2022 16:12:19 KAREN/MEHDI Receipt ID: [id number] Authenticated by Lukasz Saul MD On 10/01/2022 09:00:16 AM at 0900 PATIENT NAME: LEANDRO LEHMAN [facility]
[2024-08-31 22:47] LABS: Absolute Basophils 0.1 K/uL (0-0.5); Absolute Eosinophils 0.3 K/uL (0-0.5); Absolute Lymphocytes (CBC) 2.5 K/uL (0.7-4.9); Absolute Monocytes 0.6 K/uL (0.1-1.3); Absolute Neutrophil 2.7 K/uL (1.8-8.0); Basophils % 1.1 % (0-1.3); Eosinophils % 5.2 % (0-4.4); Hematocrit 42.7 % (39.6-49.0); Lymphocytes % 40.2 % (15.3-44.8); MCH 28.1 pg (27.0-35.0); MCHC 32.9 g/dL (32.0-36.0); MCV 85.4 fL (80-100); MPV 7.7 fL (7.6-11.3); Monocytes % 10.5 % (3.3-12.3); Platelets 306 thou/uL (152-406); Red Cell Distribution Width 13.9 % (12.1-15.2)
[2024-08-31] MEDS ORDERED: ONDANSETRON 4 MG/2 ML VIAL ONE (22:53)
[2024-08-31] MEDS ORDERED: NA CHLORIDE 0.9% 1,000 ML ONE (22:53)
[2024-08-31] MEDS ORDERED: METOCLOPRAMIDE 10 MG/2mL INJ ONE (22:53)
[2024-08-31 23:04] LABS: Albumin 3.2 g/dL (3.4-5.0); Albumin/Globulin Ratio 0.8 (1.1-1.8); Anion Gap 9.2 mEq/L (5.0-15.0); Bilirubin Total 0.8 mg/dL (0.2-1.0); Potassium 3.2 mEq/L (3.5-5.1); Protein, Total 7.2 g/dL (6.4-8.2)
--- NOTE | 2024-08-31 23:13 | EDPHYS ---
Physician Documentation [facility] Name: Leandro Rand Age: 53 yrs Sex: Male : 1970 Arrival Date: 08/31/2024 Time: 20:26 Bed 16 Private MD: ED Physician Gray Israel HPI: 08/31 22:46 This 53 yrs old Male presents to ER via Ambulatory with complaints of sp3 Vomiting, Weakness. 22:46 53-year-old male with a history of diabetes, CHF history now presents to the ED with sp3 recurrent abdominal cramping and vomiting and generalized weakness. Patient was seen here on 08/21/2024 with similar symptoms and received full workup including laboratory values and CT scan of the abdomen pelvis which were all read as without having significant findings or abnormalities. Patient was sent home on antiemetics which she was doing okay but over the last 24 hours patient has had recurrent vomiting without mucus or blood. They are here for reevaluation and further treatment. He denies any headache, fever, URI symptoms, back pain, shortness of breath, diarrhea, rash, or any other signs or symptoms on ROS at this time.. Historical: - Allergies: 21:15 Farxiga; tm6 21:15 Jardiance; tm6 21:15 Steglatro; tm6 - PMHx: 21:15 Congestive heart failure; COVID-19; Diabetes - IDDM; Home Oxygen ; 3-4 L; Home Oxygen ; tm6 3-4 L; Hyperlipidemia; kidney disease; lung failure; Myocardial infarction; Sleep Apnea; - PSHx: 21:15 Cholecystectomy; heart cath; Left first finger amputation; tm6 - Immunization history:: Client reports receiving the 2nd dose of the Covid vaccine. - Infectious Disease History:: Denies. - Social history:: Smoking status: Patient denies any tobacco usage or history of. Patient/guardian denies using alcohol. ROS: 22:47 Constitutional: Negative for fever, chills, and weight loss, Eyes: Negative for injury, sp3 pain, redness, and discharge, ENT: Negative for injury, pain, and discharge, Neck: Negative for injury, pain, and swelling, Cardiovascular: Negative for chest pain, palpitations, and edema, Respiratory: Negative for shortness of breath, cough, wheezing, and pleuritic chest pain, Back: Negative for injury and pain, MS/Extremity: Negative for injury and deformity, Skin: Negative for injury, rash, and discoloration, Neuro: Negative for headache, weakness, numbness, tingling, and seizure, Psych: Negative for depression, anxiety, suicide ideation, homicidal ideation, and hallucinations, Allergy/Immunology: Negative for hives, rash, and allergies, Endocrine: Negative for neck swelling, polydipsia, polyuria, polyphagia, and marked weight changes, Hematologic/Lymphatic: Negative for swollen nodes, abnormal bleeding, and unusual bruising, 22:47 All other systems are negative, Exam: 22:47 Constitutional: This is a well developed, well nourished patient who is awake, alert, sp3 and in no acute distress. Head/Face: Normocephalic, atraumatic. Eyes: Pupils equal round and reactive to light, extra-ocular motions intact. Lids and lashes normal. Conjunctiva and sclera are non-icteric and not injected. Cornea within normal limits. Periorbital areas with no swelling, redness, or edema. Neck: Trachea midline, no thyromegaly or masses palpated, and no cervical lymphadenopathy. Supple, full range of motion without nuchal rigidity, or vertebral point tenderness. No Meningismus. Chest/axilla: Normal chest wall appearance and motion. Nontender with no deformity. No lesions are appreciated. Cardiovascular: Regular rate and rhythm with a normal S1 and S2. No gallops, murmurs, or rubs. Normal PMI, no JVD. No pulse deficits. Respiratory: Lungs have equal breath sounds bilaterally, clear to auscultation and percussion. No rales, rhonchi or wheezes noted. No increased work of breathing, no retractions or nasal flaring. Back: No spinal tenderness. No costovertebral tenderness. Full range of motion. Skin: Warm, dry with normal turgor. Normal color with no rashes, no lesions, and no evidence of cellulitis. MS/ Extremity: Pulses equal, no cyanosis. Neurovascular intact. Full, normal range of motion. Neuro: Awake and alert, GCS 15, oriented to person, place, time, and situation. Cranial nerves II-XII grossly intact. Motor strength 5/5 in all extremities. Sensory grossly intact. Cerebellar exam normal. Normal gait. Psych: Awake, alert, with orientation to person, place and time. Behavior, mood, and affect are within normal limits. 22:47 Abdomen/GI: Mild diffuse cramping without peritoneal signs, rebound or guarding. No active emesis noted in the ED. Patient states he is nauseated., 23:08 ECG was reviewed by the Attending Physician. EKG demonstrates normal sinus rhythm at 88 sp3 bpm with normal intervals, normal QRS, normal axis, normal axis ST segments without evidence of acute ischemia. Vital Signs: 21:11 Resp 17; Temp 99(O); Weight 108.86 kg; Height 5 ft. 7 in. ; Pain 8/10; tm6 21:12 BP 104 / 68; Pulse 100; Pulse Ox 93% on R/A; MAP 78 mmHg; tm6 23:00 BP 110 / 70; Pulse 99; Resp 19; Pulse Ox 100% on R/A; rg5 09/01 00:00 BP 112 / 71; Pulse 93; Resp 18 S; Temp 98; Pulse Ox 99% on R/A; Pain 0/10; rg5 08/31 21:11 Body Mass Index 37.59 (108.86 kg, 170.18 cm) tm6 10 21:11 Pain Scale: Adult tm6 09/01 00:00 Pain Scale: Adult rg5 Rand Coma Score: 08/31 21:20 Eye Response: spontaneous(4). Motor Response: obeys commands(6). Verbal Response: rg5 oriented(5). Total: 15. MDM: 21:26 Patient medically screened. sp3 22:50 Data reviewed: vital signs, nurses notes, lab test result(s). ED course: 53-year-old sp3 male with recurrent abdominal pain and nausea and vomiting. Differential diagnosis includes gastritis, functional abdominal pain, constipation, viral illness, among others. Will not repeat CT scan given recent study. Repeat blood work and Reglan and has been ordered. Patient in no acute distress I do not believe patient has critical illness or findings. Will treat symptomatically with supportive care and disposition accordingly. Probable discharge if patient improves.. 23:09 ED course: Labs reviewed mild drop in potassium. We will replete p.o. Remainder of sp3 workup negative and patient is no longer having emesis. Will discharge with Reglan p.o. and follow-up with PCP. Consider gastric emptying issue so Reglan will likely help.. 08/31 22:00 Order name: CBC with Diff; Complete Time: 23:07 sp3 08/31 22:00 Order name: CMP; Complete Time: 23:07 sp3 08/31 22:00 Order name: Lipase; Complete Time: 23:07 sp3 08/31 22:00 Order name: Lactate w/ 2H reflex if indic.; Complete Time: 23:07 sp3 08/31 22:00 Order name: IV Saline Lock; Complete Time: 22:12 sp3 08/31 22:00 Order name: Labs collected and sent; Complete Time: 22:12 sp3 Administered Medications: 22:45 Drug: NS 0.9% IV 1000 ml IV at 1 bolus Per protocol; 1000 mL bolus Route: IV; Rate: 1 rg5 bolus; Site: left antecubital; 23:45 Follow up: IV Status: Completed infusion; IV Intake: 1000ml rg5 22:45 Drug: Ondansetron IVP 4 mg IVP once; over 2 minutes Route: IVP; Site: left antecubital; rg5 23:00 Follow up: Response: No adverse reaction rg5 22:45 Drug: metoCLOPramide IVP 10 mg IVP once; over 1 to 2 minutes Route: IVP; Site: left rg5 antecubital; 23:30 Follow up: Response: No adverse reaction rg5 22:50 Drug: Potassium PO Effervescent Tablet 50 mEq PO once; dissolve in 4 ounces of water or rg5 juice Route: PO; 23:30 Follow up: Response: No adverse reaction rg5 Disposition Summary: 08/31/24 23:12 Discharge Ordered Notes: Location: Home sp3 Condition: Stable sp3 Diagnosis - Gastritis, gastric emptying defect sp3 Followup: sp3 - With: Private Physician - When: Upon discharge from the Emergency Department - Reason: Continuance of care Discharge Instructions: - Discharge Summary Sheet sp3 - Gastritis, Adult sp3 Forms: - Medication Reconciliation Form sp3 - Antibiotic Education sp3 - Prescription Opioid Use sp3 - Patient Portal Instructions sp3 - Leadership Thank You Letter sp3 Prescriptions: - Reglan 10 mg Oral Tablet - take 1 tablet ORAL route every 6 hours . take 30 minutes before meals and at sp3 bedtime; 100 tablet; Refills: 0, Product Selection Permitted Signatures: Dispatcher [employer] Gray Wyman MD MD sp3 David Tobar, RN RN tm6 Vincent Langley, RN RN rg5
--- NOTE | 2024-08-31 23:13 | ER ---
Nurse's Notes [facility] Name: Leandro Rand Age: 53 yrs Sex: Male : 1970 Arrival Date: 08/31/2024 Time: 20:26 Bed 16 Private MD: Diagnosis: Gastritis, gastric emptying defect Presentation: 08/31 21:11 Coronavirus screen: Client denies travel out of the [place] in the last 14 days. Ebola tm6 Screen: Patient negative for fever greater than or equal to 101.5 degrees Fahrenheit, and additional compatible Ebola Virus Disease symptoms Patient denies exposure to infectious person. Patient denies travel to an Ebola-affected area in the 21 days before illness onset. No symptoms or risks identified at this time. Risk Assessment: Do you want to hurt yourself or someone else? Patient reports no desire to harm self or others. 21:11 Acuity: FELI 3 tm6 21:11 Method Of Arrival: Ambulatory tm6 21:13 Chief complaint: Patient states: 08/21/24 came into this ER for same symptoms. They gave tm6 me some nausea medicine but it hasn't helped. I haven't been able to keep anything down because I keep throwing up. I feel very achey and tired. Initial Sepsis Screen: Does the patient meet any 2 criteria? HR > 90 bpm. Does the patient have a suspected source of infection? No. Patient's initial sepsis screen is negative. Onset of symptoms was August 21, 2024. Triage Assessment: 21:15 General: Appears uncomfortable, Behavior is cooperative. Pain: Complains of pain in tm6 left low back Pain currently is 8 out of 10 on a pain scale. Pain began two weeks ago. EENT: No signs and/or symptoms were reported regarding the EENT system. Neuro: Level of Consciousness is awake, alert, obeys commands, Oriented to person, place, time, situation. Cardiovascular: Patient's skin is warm and dry. Respiratory: Airway is patent Respiratory effort is even, unlabored, Respiratory pattern is regular, symmetrical. GI: Abdomen is round Reports nausea, vomiting, since two weeks ago. : Reports pain in right flank(s). Derm: No signs and/or symptoms reported regarding the dermatologic system. Musculoskeletal: No signs and/or symptoms reported regarding the musculoskeletal system. Historical: - Allergies: 21:15 Farxiga; tm6 21:15 Jardiance; tm6 21:15 Steglatro; tm6 - PMHx: 21:15 Congestive heart failure; COVID-19; Diabetes - IDDM; Home Oxygen ; 3-4 L; Home Oxygen ; tm6 3-4 L; Hyperlipidemia; kidney disease; lung failure; Myocardial infarction; Sleep Apnea; - PSHx: 21:15 Cholecystectomy; heart cath; Left first finger amputation; tm6 - Immunization history:: Client reports receiving the 2nd dose of the Covid vaccine. - Infectious Disease History:: Denies. - Social history:: Smoking status: Patient denies any tobacco usage or history of. Patient/guardian denies using alcohol. Screenin:20 [facility] ED Fall Risk Assessment (Adult) History of falling in the last 3 months, rg5 including since admission No falls in past 3 months (0 pts) Confusion or Disorientation No (0 pts) Intoxicated or Sedated No (0 pts) Impaired Gait No (0 pts) Mobility Assist Device Used No (0 pt) Altered Elimination No (0 pt) Score/Fall Risk Level 0 - 2 = Low Risk Oriented to surroundings, Maintained a safe environment, Hourly rounding (assess needs \T\ fall precautionary measures) done. Abuse screen: Denies threats or abuse. Nutritional screening: No deficits noted. Tuberculosis screening: No symptoms or risk factors identified. Assessment: 21:20 General: Appears comfortable, Behavior is calm, cooperative. rg5 21:20 Pain: Complains of pain in abdomen Quality of pain is described as dull. Neuro: Level rg5 of Consciousness is awake, alert, obeys commands, Oriented to person, place, time. Cardiovascular: Patient's skin is warm and dry. Respiratory: Airway is patent Trachea midline Respiratory effort is even, unlabored, Respiratory pattern is regular, symmetrical. GI: Abdomen is obese, Pt is actively vomiting clear fluid, Bowel sounds present X 4 quads. : No signs and/or symptoms were reported regarding the genitourinary system. EENT: No deficits noted. Derm: Skin is intact, Skin is normal. Musculoskeletal: Circulation, motion, and sensation intact. Range of motion: intact in all extremities. 22:00 Reassessment: Patient and/or family updated on plan of care and expected duration. Pain rg5 level reassessed. Patient is alert, oriented x 3, equal unlabored respirations, skin warm/dry/pink. Patient states feeling better. 09/01 00:00 Reassessment: Patient and/or family updated on plan of care and expected duration. Pain rg5 level reassessed. Patient states feeling better. Patient states symptoms have improved. Vital Signs: 08/31 21:11 Resp 17; Temp 99(O); Weight 108.86 kg; Height 5 ft. 7 in. ; Pain 8/10; tm6 21:12 BP 104 / 68; Pulse 100; Pulse Ox 93% on R/A; MAP 78 mmHg; tm6 23:00 BP 110 / 70; Pulse 99; Resp 19; Pulse Ox 100% on R/A; rg5 09/01 00:00 BP 112 / 71; Pulse 93; Resp 18 S; Temp 98; Pulse Ox 99% on R/A; Pain 0/10; rg5 08/31 21:11 Body Mass Index 37.59 (108.86 kg, 170.18 cm) tm6 08/31 21:11 Pain Scale: Adult tm6 09/01 00:00 Pain Scale: Adult rg5 Caridad Coma Score: 08/31 21:20 Eye Response: spontaneous(4). Motor Response: obeys commands(6). Verbal Response: rg5 oriented(5). Total: 15. ED Course: 20:28 Patient arrived in ED. mr 20:46 Gray Israel MD is Attending Physician. sp3 21:12 Triage completed. tm6 21:12 Arm band placed on right wrist. tm6 21:20 Patient has correct armband on for positive identification. rg5 21:20 No provider procedures requiring assistance completed. Inserted saline lock: 20 gauge rg5 in left antecubital area, using aseptic technique. Blood collected. Flushed with 10 mL NS. Patient maintains SpO2 saturation greater than 95% on room air. 21:31 Vincent Langley, MARILU is Primary Nurse. rg5 09/01 00:32 Provided Education on: post er care. rg5 00:32 IV discontinued, bleeding controlled, No redness/swelling at site. Pressure dressing rg5 applied. Administered Medications: 08/31 22:45 Drug: NS 0.9% IV 1000 ml IV at 1 bolus Per protocol; 1000 mL bolus Route: IV; Rate: 1 rg5 bolus; Site: left antecubital; 23:45 Follow up: IV Status: Completed infusion; IV Intake: 1000ml rg5 22:45 Drug: Ondansetron IVP 4 mg IVP once; over 2 minutes Route: IVP; Site: left antecubital; rg5 23:00 Follow up: Response: No adverse reaction rg5 22:45 Drug: metoCLOPramide IVP 10 mg IVP once; over 1 to 2 minutes Route: IVP; Site: left rg5 antecubital; 23:30 Follow up: Response: No adverse reaction rg5 22:50 Drug: Potassium PO Effervescent Tablet 50 mEq PO once; dissolve in 4 ounces of water or rg5 juice Route: PO; 23:30 Follow up: Response: No adverse reaction rg5 Medication: 21:20 VIS not applicable for this client. rg5 Intake: 23:45 IV: 1000ml; Total: 1000ml. rg5 Outcome: 23:12 Discharge ordered by MD. grimm 09/01 00:31 Discharged to home ambulatory, rg5 Condition: stable Discharge instructions given to patient, Instructed on discharge instructions, Demonstrated understanding of instructions, Prescriptions given X 1, 00:36 Patient left the ED. rg5 Signatures: Larissa Linder, Reg Reg mr Gray Israel MD MD sp3 David Tobar RN RN tm6 Vincent Langley RN RN rg5
[2024-08-31] MEDS ORDERED: POTASSIUM 25 MEQ EFFERV TAB ONE (23:32)
[2024-09-01 17:07] VITALS: BP 112/71; TEMP 98; O2SAT 99
--- NOTE | 2024-09-02 16:39 | EKG ---
Test Date: 2024-08-31 Test Time: 22:04:46 Saw Boss: HERBERT MEASUREMENT RESULTS: Intervals: Rate: 88 SD: 134 QRSD: 78 QT: 388 QTc: 469 [place]: P: 4 SD: 134 QRS: 15 T: 26 INTERPRETIVE STATEMENTS: Normal sinus rhythm Normal ECG Compared to ECG 08/21/2024 18:09:03 Myocardial infarct finding no longer present Electronically Signed On 09-02-24 16:33:51 CDT by Ceasar Nguyen
== END 2024-09-01 00:36 | disposition home or self-care (01) ==
LOC: ER 20:26
DX: K29.70 Gastritis, unspecified, without bleeding (principal); K31.9 Disease of stomach and duodenum, unspecified; R53.1 Weakness; E11.9 Type 2 diabetes mellitus without complications; I50.9 Heart failure, unspecified; Z99.81 Dependence on supplemental oxygen
CPT/HCPCS: 96361; 93005; 85025; 36415; 83605; 83690; 80053; 96375; 96374; 99284; J2765; J2405; J7030

== ENCOUNTER 2024-12-30 08:53 | Emergency (ER) | payer OTHER ==
--- OUTSIDE RECORDS SUMMARY | 2024-12-30 09:02 | XMS REPORT | Continuity of Care Document ---
Author Name Unknown Address [address] [facility] [address] [place] [address] [facility] thconnect Address [address] [facility] [place] [address] Care Team Providers Care Community Nutrition Educator Name Role Phone ANSLEY GARIBAY Primary Care Physician Unav JOHN Rolno Attending Clinician Unav ailWENDY Stearns Attending Clinician Unavailable Florence Downs RN Attending Clinician [phone] SACHIN MCALLISTER Attending Clinician Unavailable Sarah Valenzuela Attending Clinician [phone] Jasmin Russell MD Attending Clinician [phone] Sachin Mcallister DO Attending Clinician [phone] Jeremias Ibarra Attending Clinician UnavailLYUBOV Humphrey Attending Clinician Unavailable MD LUIS ARMANDO Attending Clinician UnavailROHINI Cunningham Attending Clinician Unavailable MARCELLE ZHU Attending Clinician Unavailable MAISHA RIVERS MEDICAL Attending Quynh n Unavailable RADHA GAMINO Attending Clinician Unavailable LAB47 Attending Clinician Unavailable UDOETUK, AKBAR Attending Clinician Unavailable CHOLO LOVE Attending Clinician Unavailable Murali Zafar MD Attending Clinician [phone] Natasha ARRIETA, Dawna Attending Clinician [phone] Cholo Love MD Attending Clinician [phone] Horace MICHEL, Nata Rae Attending Clinician UnaJON Wiggins Attending Clinician Unavailable Gerson Palomino DO Attending Clinician [phone] Jon Cade MD Attending Clinician [phone] Lukasz Saul Attending Clinician Unavailable JAXON THOMAS Attending Clinician Unavailable JAI LOPEZ Attending Clinician Unavailable Jai Lopez MD Attending Clinician [phone] [place] Attending Clinician Unavailable Annette Lemus Attending Clinician [phone] GERSON GREENE Attending Clinician Unavailkaela Cervantes MD, Dustin Asher Attending Clinician [phone] Gerson Greene MD Attending Clinician [phone] Doctor Unassigned, [place] Attending Clinician U Marlene Snyder Attending Clinician [phone] SACHIN MCALLISTER Admitting Clinician Unavailable Sachin Mcallister DO Admitting Clinician [phone] Jeremias Ibarra Admitting Clinician Unavailabl e [place] Admitting Clinician Unavailable CHOLO LOVE Admitting Clinician Unavailable Cholo Love MD Admitting Clinician [phone] GERSON PALOMINO Admitting Clinician Unavailable Physician, No Primary or Family Admitting Clinic bill Unavailable Payers Payer Name Policy Type Policy Number Effective Date Expirati on Date Source [facility] DOMONIQUE GARCSE COPAY FOCUS 9 [id number] 2024 00:00:00 LIZBETH QUIROS [facility] [employer]: 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 9 [id number] 2023 00:00:00 Problems Condition Name Condition Details Condition Category Status Onset Date Resolution Date Last Treatment Date Treating Clinician Comments Source Fatigue, unspecifie d type Fatigue, unspecifie d type Disease Active 3-27 00:00: 00 [facility] Immunodefi ciency due to conditions classified [...] nausea present Disease Active 2021-11 00:00: 00 [facility] Intractabl e vomiting Intractabl e vomiting Disease Active 2021-11 00:00: 00 [facility] Tinea pedis Tinea pedis Disease Active 2021-11 00:00: 00 [facility] Chronic respirator y failure with hypoxia Chronic respirator y failure with hypoxia Disease Active 2021-11 00:00: 00 [facility] Type 2 diabetes mellitus without complicati on, without long-term current use of insulin Type 2 diabetes mellitus without complicati on, without long-term current use of insulin Disease Active 2021-11 0 00:00: 00 [facility] PAF (paroxysma l atrial fibrillati on) PAF (paroxysma l atrial fibrillati on) Disease Active 2021-11 0 00:00: 00 [facility] CHAPARRO (obstructi ve sleep apnea) CHAPARRO (obstructi ve sleep apnea) Disease Active 2021-11 0 00:00: 00 [facility] Chest pain, unspecifie d type Chest pain, unspecifie d type Disease Active 2021-11 0 00:00: 00 [facility] Morbid obesity with body mass index of 40.0-49.9 Morbid obesity with body mass index of 40.0-49.9 Disease Active 2021-11 0 00:00: 00 [facility] Elevated LFTs Elevated LFTs Disease Active 2021-11 0 00:00: 00 [facility] Diabetic ketoacidos is without coma associated with type 2 diabetes mellitus Diabetic ketoacidos is without coma associated with type 2 diabetes mellitus Disease Active 04-21 00:00: 00 [facility] Obesity (BMI 30-39.9) Obesity (BMI 30-39.9) Disease Active 04-21 00:00: 00 [facility] No known active problems No known active problems Disease [facility] Allergies, Adverse Reactions, Alerts Allergy Name Allergy Type Status Severity Reaction(s) Onset Date Inactive Date Treating Clinician Comments Source EMPAGLIF LOZIN DRUG INGREDI Active Other-Cmnt 2021-11 00:00: 00 [facility] Empaglif lozin Propensi ty to adverse reaction s to drug Active Other - See comments 2021-11 00:00: 00 DKA [facility] Empaglif lozin Propensi ty to adverse reaction s Active Other 2021-11 00:00: 00 DKA Maisha Seybold - Externa l No Known Allergie s DA Active U 2021-11 0-24 00:00: 00 [facility] NO KNOWN ALLERGIE S Drug Class Active [facility] Social History Social Habit Start Date Stop Date Quantity Comments Source History of tobacco use Cigarette Smoker [facility] Sexual orientation U [facility] Gender identity Maeve nuvia Moy - External Alcohol intake 2023-04-17 00:00:00 2023-04-17 00:00:00 Ex-drinker (finding) Maisha Farzaneh - External Exposure to SARS-CoV-2 (event) 2022-11-02 00:00:00 2022-11-12 00:35:00 Not sure [facility] Tobacco use and exposure 2022-09-03 00:00:00 2022-09-03 00:00:00 Smokeless tobacco non-user [facility] History of Social function 2021-09-30 00:00:00 2021-09-30 00:00:00 [facility] Sex Assigned At 1970 00:00:00 1970 00:00:00 Maisha Moy - External Smoking Status Start Date Stop Date Source Never smoked tobacco Maisha Farzaneh - External Ex-smoker 2022-09-03 00:00:00 2022-09-03 00:00:00 U [facility] Medications Ordered Medication Name Filled Medication Name Start Date Stop Date Current Medication? Ordering Clinician Indication Dosage Frequency Signature (SIG) Comments Components Source furosemide (LASIX) injection 40 mg 02-26 19:15: 00 02-26 19:06 :00 No 40mg 40 mg, Slow IV Push, ONCE, 1 dose, On 02/27/24 at 1415, Routine [facility] aspirin 81 mg chewable tablet 02-26 17:45: 47 Yes 81mg Take 1 tablet by mouth daily. [facility] spironolact one 25 mg tablet 02-26 17:45: 47 Yes 25mg Take 1 tablet by mouth 2 (two) times daily. [facility] omega-3-dha -epa-dpa-fi sh oil (OMEGA-3 2100) 1,050-1,200 mg Cap 02-26 17:45: 47 Yes Take by mouth 2 (two) times daily. [facility] METOPROLOL SUCCINATE ORAL 02-26 17:45: 47 Yes 50mg Take 50 mg by mouth 2 (two) times daily. [facility] pantoprazol e 40 mg EC tablet 02-26 17:45: 47 Yes 40mg Take 1 tablet by mouth 2 (two) times daily. [facility] insulin detemir (LEVEMIR U-100 INSULIN SC) 02-26 17:45: 47 Yes 45U inject 45 Units under the skin 2 (two) times daily. [facility] atorvastati n (LIPITOR) 40 mg tablet 02-26 17:45: 47 Yes 40mg Take 1 tablet by mouth at bedtime. [facility] glipiZIDE 5 mg tablet 02-26 17:45: 47 Yes 5mg Take 1 tablet by mouth daily. [facility] KCL (KLOR-CON M20) tablet 40 mEq 02-26 14:00: 00 Yes 40meq 40 mEq, Oral, DAILY, First dose on 02/27/24 at 0900, Until Discontinu ed, Routine [facility] metoclopram nixon HCl (REGLAN) tablet 5 mg 02-26 12:30: 00 Yes 5mg 5 mg, Oral, AC, First dose on 02/27/24 at 0730, Until Discontinu ed, Routine [facility] metoclopram nixon HCl 5 mg tablet 02-26 00:00: 00 03-06 04:59 :00 No [id number] 5mg Take 1 tablet by mouth every 6 (six) hours as needed for Nausea and Vomiting (N/V) for up to 7 days. [facility] KCL 20 mEq tablet 02-26 00:00: 00 03-02 04:59 :00 No [id number] 40meq Take 2 tablets by mouth daily for 3 days. [facility] dicyclomine 10 mg capsule 02-26 00:00: 00 03-02 04:59 :00 No [id number] 10mg Take 1 capsule by mouth 4 (four) times daily for 3 days. [facility] acetaminoph en (TYLENOL) tablet 650 mg 02-25 22:21: 08 Yes 650mg 650 mg, Oral, Q6HPRN, Starting on Thu02/26/24 at 1721, Until Discontinu ed, Routine, Pain (scale 4-6) [facility] KCL (KLOR-CON M20) tablet 40 mEq 02-25 17:00: 00 02-25 21:45 :00 No 40meq 40 mEq, Oral, Q4H, 2 doses, First dose on Thu02/26/24 at 1200, Last dose on Thu02/26/24 at 1600, Routine [facility] dicyclomine (BENTYL) capsule 10 mg 02-24 17:00: 00 Yes 10mg 10 mg, Oral, QID, First dose on Thu02/25/24 at 1200, Until Discontinu ed, Routine [facility] KCL (KLOR-CON M20) tablet 20 mEq 02-24 15:00: 00 02-24 17:15 :00 No 20meq 20 mEq, Oral, Q2H, 2 doses, First dose on Thu02/25/24 at 1000, Last dose on Thu02/25/24 at 1200, Routine [facility] metoprolol tartrate (LOPRESSOR) tablet 25 mg 02-24 14:00: 00 Yes 25mg 25 mg, Oral, BID, First dose on Thu02/25/24 at 0900, Until Discontinu ed, Routine [facility] enoxaparin (LOVENOX) injection 40 mg 02-24 14:00: 00 Yes 40mg 40 mg, Subcutaneo us, DAILY, First dose on Thu02/25/24 at 0900, Until Discontinu ed, Routine [facility] glipiZIDE (GLUCOTROL) tablet 5 mg 02-24 14:00: 00 Yes 5mg 5 mg, Oral, DAILY, First dose on Thu02/25/24 at 0900, Until Discontinu ed, Routine [facility] aspirin chewable tablet 81 mg 02-24 14:00: 00 Yes 81mg 81 mg, Oral, DAILY, First dose on Thu02/25/24 at 0900, Until Discontinu ed, Routine [facility] metoclopram nixon HCl (REGLAN) injection 10 mg 02-24 05:00: 00 02-25 22:23 :08 No 10mg 10 mg, Slow IV Push, Q6H, First dose on Thu02/25/24 at 0000, Until Discontinu ed, Routine [facility] atorvastati n (LIPITOR) tablet 40 mg 02-24 02:00: 00 Yes 40mg 40 mg, Oral, QHS, First dose on Thu02/24/24 at 2100, Until Discontinu ed, Routine [facility] pantoprazol e (PROTONIX) EC tablet 40 mg 02-24 01:00: 00 Yes 40mg 40 mg, Oral, BID, First dose on Thu02/24/24 at 2000, Until Discontinu ed, Routine [facility] insulin detemir U-100 (LEVEMIR U-100 INSULIN) injection 45 Units 02-24 01:00: 00 Yes 45U 45 Units, Subcutaneo us, BID, First dose on Thu02/24/24 at 2000, Until Discontinu ed
Rest ricted - To be dispensed only to: Continuati on from home [facility] glucagon (GLUCAGEN DIAGNOSTIC KIT) injection 1 mg 02-23 20:27: 21 Yes 1mg 1 mg, Intramuscu lar, PRN, Starting on Thu02/24/24 at 1527, Until Discontinu ed, [place], Blood Glucose < or = 70 mg/dL and patient is NPO, unable to swallow or has mental changes. [facility] HYDROcodone -acetaminop hen (NORCO) 10-325 mg tablet 1 tablet 02-23 20:12: 43 02-25 22:21 :00 No 1{tbl} 1 tablet, Oral, Q6HPRN, Starting on Thu02/24/24 at 1512, Until Thu02/26/24 at 1721, Routine, Pain (scale 7-10) [facility] Sliding Scale Insulin-Reg ular 02-23 16:30: 00 Yes Subcutaneo us, AC+HS, First dose on Thu02/24/24 at 1130, Until Discontinu ed, Routine [facility] lactated ringers IV infusion 1,000 mL 02-23 14:00: 00 02-24 20:00 :27 No 1000mL at 125 mL/hr, 1,000 mL, IV Infusion, CONTINUOUS , Starting on Thu02/24/24 at 0900, Until Thu02/25/24 at 1500, Routine [facility] glucagon (GLUCAGEN DIAGNOSTIC KIT) injection 1 mg 02-23 12:47: 50 Yes 1mg 1 mg, Intramuscu lar, PRN, Starting on Thu02/24/24 at 0747, Until Discontinu ed, [place], Blood Glucose < or = 70 mg/dL and patient is NPO, unable to swallow or has mental changes. [facility] dextrose 50 % in water (D50W) injection 25 mL 02-23 12:47: 50 Yes 25mL 25 mL, Slow IV Push, PRN, Starting on Thu02/24/24 at 0747, Until Discontinu ed, [place], Blood Glucose < or = 70 mg/dL and patient is NPO, unable to swallow or has mental status changes. [facility] proMETHazin e (PHENERGAN) 25 mg in NS 50 mL IV piggyback (CNR) 02-23 12:47: 00 Yes 25mg 25 mg, IV Piggyback, at 200 mL/hr Administer over 15 Minutes, Q4HPRN, Starting on Thu02/24/24 at 0747, Until Discontinu ed, Routine, Nausea and Vomiting (N/V) [facility] ondansetron (ZOFRAN (PF)) injection 4 mg 02-23 12:45: 00 02-23 12:35 :00 No 4mg 4 mg, Slow IV Push, ONCE, 1 dose, On Thu02/24/24 at 0745, [place] [facility] iopamidol (ISOVUE 370-500 mL) injection 100 mL 02-23 09:45: 00 02-23 09:45 :00 No [id number] 100mL 100 mL, Intravenou s, ONCE, 1 dose, On Thu02/24/24 at 0445, Routine [facility] NaCl 0.9% (NS) bolus infusion 500 mL 02-23 08:00: 00 02-23 09:46 :00 No 500mL at 999 mL/hr, 500 mL, IV Infusion, ONCE, 1 dose, On Thu02/24/24 at 0300, [place] [facility] potassium chloride in water 10 mEq/100 mL RTU 10 mEq 02-23 07:46: 00 02-23 09:17 :00 No 10meq 10 mEq, IV Piggyback, ONCE, 1 dose, On Thu02/24/24 at 0300, Administer over 60 Minutes, 100 mL [facility] FENTanyl PF (SUBLIMAZE (PF)) injection 50 mcg 02-23 07:45: 00 02-23 07:29 :00 No 50ug 50 mcg, Slow IV Push, ONCE, 1 dose, On Thu02/24/24 at 0245, Routine [facility] ondansetron (ZOFRAN (PF)) injection 4 mg 02-23 07:00: 00 02-23 07:29 :00 No 4mg 4 mg, Slow IV Push, ONCE, 1 dose, On Thu02/24/24 at 0200, [place] [facility] NaCl 0.9% (NS) bolus infusion 500 mL 02-23 07:00: 00 02-23 07:55 :00 No 500mL at 999 mL/hr, 500 mL, IV Infusion, ONCE, 1 dose, On Thu02/24/24 at 0200, STAT [facility] sodium chloride (NS) injection 5 mL 02-23 06:01: 43 Yes 5mL 5 mL, Intravenou s, PRN, Starting on Thu02/24/24 at 0101, Until Discontinu ed, Routine, IV line flushing [facility] Aspirin 81 MG oral Chewable Tablet 04-17 08:32: 54 Yes 81mg Take 1 tablet (81 mg total) by mouth daily Maisha constantino OZEMPIC (0.25 or 0.5 mg/dose) 2 mg/3 mL SQ Solution Pen-Injecto r 04-17 00:00: 00 Yes [id number] 3 .25mg Inject 0.25 mg into the skin once a week If tolerated after 4 weeks, increase to 0.5mg weekly Maisha constantino Metformin HCl 1000 MG oral Tablet 04-17 00:00: 00 Yes [id number] 3 1000mg Take 1 tablet (1,000 mg total) by mouth in the morning and 1 tablet (1,000 mg total) in the evening. Take with meals. Maisha constantino Atorvastati n Calcium 40 MG oral Tablet 04-17 00:00: 00 Yes [id number] 3 40mg Take 1 tablet (40 mg total) by mouth daily Maisha constantino Insulin Aspart (NovoLOG FlexPen) 100 UNIT/ML subcutaneou s Solution Pen-injecto r 04-17 00:00: 00 Yes [id number] 3 Use as directed three times daily, inject 24 units TID plus sliding scale. Max daily dose 80 units Maisha constantino Insulin Detemir (Levemir FlexPen) 100 UNIT/ML subcutaneou s Solution Pen-injecto r 04-17 00:00: 00 Yes [id number] 3 Inject 35 units twice daily Maisha constantino Insulin Detemir (Levemir) 100 UNIT/ML subcutaneou s Solution 04-17 00:00: 00 04-17 00:00 :00 No [id number] 3 Inject 35 units twice dominguez Maisha constantino Insulin Pen Needle 31G X 5 MM does not apply [facility] [place]-17 00:00: 00 04-17 00:00 :00 No [id number] 3 Inject insulin 5 times daily Maisha constantino Budesonide, Inhalation, 0.5 MG/2ML inhalation Suspension 04-14 00:00: 00 Yes [id number] .5mg Take 2 mL (0.5 mg total) by nebulizati on 2 times daily Maisha constantino OZEMPIC (0.25 or 0.5 mg/dose) 2 mg/3 mL SQ Solution Pen-Injecto r 04-13 00:00: 00 04-17 00:00 :00 No [id number] 3 .25mg Inject 0.25 mg into the [...] inhalation Inhalant Solution 04-08 00:00: 00 Yes [id number] 1.25mg Q.25D Take 3 mL (1.25 mg total) by nebulizati on every 6 hours as needed for wheezing Maisha constantino Amoxicillin -Pot Clavulanate 875-125 MG oral Tablet 04-08 00:00: 00 Yes [id number] 1{tbl} Take 1 tablet by mouth 2 times daily Maisha constantino Furosemide (Lasix) 20 MG oral Tablet 04-08 00:00: 00 Yes [id number] 20mg Take 1 tablet (20 mg total) by mouth daily Maisha constantino Metoprolol Succinate 25 MG oral Capsule ER 24 Hour Sprinkle 04-08 00:00: 00 Yes [id number] 25mg Take 25 mg by mouth daily Maisha constantino Lisinopril 5 MG oral Tablet 04-08 00:00: 00 Yes [id number] 5mg Take 1 tablet (5 mg total) by mouth daily Maisha constantino Potassium Chloride Lanie ER 20 MEQ oral Tab CR tablet 04-08 00:00: 00 Yes [id number] 20meq Take 1 tablet (20 mEq total) by mouth daily Maisha constantino Metoprolol Succinate 25 MG oral TABLET SR 24 HR 04-08 00:00: 00 Yes 25mg Take 1 tablet (25 mg total) by mouth daily Maisha constantino Budesonide, Inhalation, 0.5 MG/2ML inhalation Suspension 04-08 00:00: 00 Yes [id number] .5mg Take 2 mL (0.5 mg total) [...] 04-08 00:00: 00 04-17 00:00 :00 No [id number] 3 Inject 30 units daily. Increase dosage by 2 units every 2 days until fasting glucose less than 140 or better. Max daily dose of 60 units Maisha constantino Insulin Aspart (NovoLOG FlexPen) 100 UNIT/ML subcutaneou s Solution Pen-injecto r 04-08 00:00: 00 04-17 00:00 :00 No [id number] 3 Use as directed three times daily, inject 10 units TID plus sliding scale. Max daily dose 60 units Maisha Collinsa dougie predniSONE (DELTASONE) 10 MG oral tablet 2023-0 5-10 00:00: 00 04-14 04:59 :00 No [id number] 40mg Take 4 tablets (40 mg total) [...] mg total) by mouth daily Maisha constantino Marion-3-aci d Ethyl Esters 1 g oral Capsule [...] 81mg Take 81 mg by mouth daily. [facility] spironolact one 25 mg tablet 2021-11 15:36: 13 Yes 25mg Take 25 mg by mouth 2 (two) times daily. [facility] omega-3-dha -epa-dpa-fi sh oil (OMEGA-3 2100) 1,050-1,200 mg Cap 2021-11 15:36: 13 Yes Take by mouth 2 (two) times daily. [facility] METOPROLOL SUCCINATE ORAL 2021-11 15:36: 13 Yes 50mg Take 50 mg by mouth 2 (two) times daily. [facility] pantoprazol e 40 mg EC tablet 2021-11 15:36: 13 Yes 40mg Take 40 mg by mouth 2 (two) times daily. [facility] atorvastati n 20 mg tablet 2021-11 11:58: 50 11-12 00:00 :00 No 40mg Take 40 mg by mouth at bedtime. [facility] famotidine 40 mg tablet 2021-11 11:58: 50 11-12 00:00 :00 No 40mg Take 40 mg by mouth daily. [facility] metoclopram nixon HCl (REGLAN) injection 10 mg 2021-11 19:45: 00 11-13 17:59 :00 No 10mg 10 mg, Slow IV Push, Q6H, 8 doses, First dose on Thu11/11/22 at 1345, Last dose on Thu11/13/22 at 0600, Routine [facility] potassium chloride in water 10 mEq/100 mL RTU 10 mEq 2021-11 15:00: 00 11-11 17:25 :00 No 10meq 10 mEq, IV Piggyback, Q1H, 2 doses, First dose on Thu11/11/22 at 0900, Last dose on Thu11/11/22 at 1000, Administer over 60 Minutes, 100 mL [facility] KCL (KLOR-CON M20) tablet 40 mEq 2021-11 14:15: 00 11-11 19:57 :00 No 40meq 40 mEq, Oral, Q2H, 3 doses, First dose on Thu11/11/22 at 0815, Last dose on Thu11/11/22 at 1200, Routine [facility] pantoprazol e (PROTONIX) EC tablet 40 mg 2021-11 02:00: 00 Yes 40mg 40 mg, Oral, BID, First dose on Thu11/10/22 at 2000, Until Discontinu ed, Routine [facility] potassium chloride in water 10 mEq/100 mL RTU 10 mEq 2021-11 23:45: 00 11-11 01:05 :00 No 10meq 10 mEq, IV Piggyback, ONCE, 1 dose, On Thu11/10/22 at 1745, Administer over 60 Minutes, 100 mL [facility] potassium chloride in water 10 mEq/100 mL RTU 10 mEq 2021-11 22:00: 00 11-10 22:59 :00 No 10meq 10 mEq, IV Piggyback, ONCE, 1 dose, On Thu11/10/22 at 1600, Administer over 60 Minutes, 100 mL [facility] potassium chloride in water 10 mEq/100 mL RTU 10 mEq 2021-11 17:00: 00 11-10 20:59 :00 No 10meq 10 mEq, IV Piggyback, Q1H, 4 doses, First dose on Thu11/10/22 at 1100, Last dose on Thu11/10/22 at 1400, Administer over 60 Minutes, 100 mL [facility] KCL (KLOR-CON M20) tablet 40 mEq 2021-11 15:45: 00 11-10 14:57 :00 No 40meq 40 mEq, Oral, ONCE, 1 dose, On Thu11/10/22 at 0945, Routine [facility] insulin glargine (LANTUS U-100) injection 10 Units 2021-11 15:00: 00 Yes 10U 10 Units, Subcutaneo us, DAILY, First dose on Thu11/10/22 at 0900, Until Discontinu ed, Routine [facility] aspirin chewable tablet 81 mg 2021-11 15:00: 00 Yes 81mg 81 mg, Oral, DAILY, First dose on Thu11/10/22 at 0900, Until Discontinu ed, Routine [facility] Sliding Scale Insulin - Lispro (HumaLOG) + Fsbg Testing 2021-11 14:00: 00 Yes Subcutaneo us, TID MEALS+HS, First dose (after last modificati on) on Thu11/10/22 at 0800, Until Discontinu ed, Routine [facility] metoprolol succinate XL (TOPROL XL) tablet 50 mg 2021-11 14:00: 00 Yes 50mg 50 mg, Oral, BID, First dose on Thu11/10/22 at 0800, Until Discontinu ed [facility] apixaban (ELIQUIS) tablet 5 mg 2021-11 14:00: 00 Yes [id number] 5mg 5 mg, Oral, BID, First dose on Thu11/10/22 at 0800, Until Discontinu ed, Routine
Indicatio ns: Non-Valvul ar Atrial Fibrillati on [facility] pantoprazol e (PROTONIX) injection 40 mg 2021-11 14:00: 00 11-10 21:04 :12 No 40mg 40 mg, Slow IV Push, Q12H, First dose on Thu11/10/22 at 0800, Until Discontinu ed [facility] spironolact one (ALDACTONE) tablet 25 mg 2021-11 14:00: 00 11-10 21:02 :33 No 25mg 25 mg, Oral, BID, First dose on Thu11/10/22 at 0800, Until Discontinu ed, Routine [facility] glucagon (GLUCAGEN DIAGNOSTIC KIT) injection 1 mg 2021-11 07:13: 25 Yes 1mg 1 mg, Intramuscu lar, PRN, Starting on Thu11/10/22 at 0113, Until Discontinu ed, [place], Blood Glucose < or = 70 mg/dL and patient is unable to swallow or has mental changes. [facility] dextrose 50 % in water (D50W) injection 25 mL 2021-11 07:13: 25 Yes 25mL 25 mL, Slow IV Push, PRN, Starting on Thu11/10/22 at 0113, Until Discontinu ed, [place], Blood Glucose < or = 70 mg/dL and patient is unable to swallow or has mental status changes. [facility] ondansetron (ZOFRAN (PF)) injection 4 mg 2021-11 07:13: 15 11-11 19:30 :03 No 4mg 4 mg, Slow IV Push, Q6HPRN, Starting on Thu11/10/22 at 0113, Until Thu11/11/22 at 1330, Routine, Nausea and Vomiting (N/V) [facility] HYDROcodone -acetaminop hen (NORCO) 10-325 mg tablet 1 tablet 2021-11 07:13: 12 Yes 1{tbl} 1 tablet, Oral, Q6HPRN, Starting on Thu11/10/22 at 0113, Until Discontinu ed, Routine, Pain (scale 7-10) [facility] acetaminoph en (TYLENOL) tablet 650 mg 2021-11 07:13: 06 Yes 650mg 650 mg, Oral, Q6HPRN, Starting on Thu11/10/22 at 0113, Until Discontinu ed, Routine, Pain (scale 1-3) [facility] potassium chloride in water 10 mEq/100 mL RTU 10 mEq 2021-11 06:00: 00 11-10 06:45 :00 No 10meq 10 mEq, IV Piggyback, ONCE, 1 dose, On Thu11/10/22 at 0000, Administer over 60 Minutes, 100 mL [facility] pantoprazol e (PROTONIX) injection 40 mg 2021-11 04:45: 00 11-10 05:14 :00 No 40mg 40 mg, Slow IV Push, ONCE, 1 dose, On Thu11/09/22 at 2245 [facility] NaCl 0.9% (NS) bolus infusion 1,000 mL 2021-11 04:15: 00 11-10 04:00 :00 No 1000mL at 999 mL/hr, 1,000 mL, IV Infusion, ONCE, 1 dose, On Thu11/09/22 at 2215, STAT [facility] metoclopram nixon HCl (REGLAN) injection 10 mg 2021-11 03:15: 00 11-10 03:54 :00 No 10mg 10 mg, Slow IV Push, ONCE, 1 dose, On 11/09/22 at 2115, [place] [facility] aspirin 81 mg chewable tablet 2021-11 01:13: 48 Yes 81mg Take 81 mg by mouth daily. [facility] spironolact one 25 mg tablet 2021-11 01:13: 48 Yes 25mg Take 25 mg by mouth 2 (two) times daily. [facility] omega-3-dha -epa-dpa-fi sh oil (OMEGA-3 2100) 1,050-1,200 mg Cap 2021-11 01:13: 48 Yes Take by mouth 2 (two) times daily. [facility] METOPROLOL SUCCINATE ORAL 2021-11 01:13: 48 Yes 50mg Take 50 mg by mouth 2 (two) times daily. [facility] atorvastati n 20 mg tablet 2021-11 01:13: 48 Yes 40mg Take 40 mg by mouth at bedtime. [facility] pantoprazol e 40 mg EC tablet 2021-11 01:13: 48 Yes 40mg Take 40 mg by mouth 2 (two) times daily. [facility] famotidine 40 mg tablet 2021-11 01:13: 48 Yes 40mg Take 40 mg by mouth daily. [facility] insulin glargine (LANTUS U-100) injection 10 Units 2021-11 15:00: 00 Yes 10U 10 Units, Subcutaneo us, DAILY, First dose (after last modificati on) on 11/08/22 at 0900, Until Discontinu ed, Routine [facility] insulin glargine 100 unit/mL injection 2021-11 00:00: 00 02-23 00:00 :00 No [id number] 10U inject 10 Units under the skin daily. If not eating or if blood sugar is between 80 and 120 give HALF the dose. If blood sugar less than 80: Eat a meal and recheck. Give half dose of insulin once blood sugar over 120. [facility] insulin lispro (human) (HumaLOG U-100) injection 3 Units 2021-11 23:00: 00 Yes 3U 3 Units, Subcutaneo us, TID MEALS, First dose (after last modificati on) on Thu11/07/22 at 1700, Until Discontinu ed, Routine [facility] aspirin 81 mg chewable tablet 2021-11 17:37: 57 Yes 81mg Take 81 mg by mouth daily. [facility] spironolact one 25 mg tablet 2021-11 17:37: 57 Yes 25mg Take 25 mg by mouth 2 (two) times daily. [facility] omega-3-dha -epa-dpa-fi sh oil (OMEGA-3 2100) 1,050-1,200 mg Cap 2021-11 17:37: 57 Yes Take by mouth 2 (two) times daily. [facility] METOPROLOL SUCCINATE ORAL 2021-11 17:37: 57 Yes 50mg Take 50 mg by mouth 2 (two) times daily. [facility] atorvastati n 20 mg tablet 2021-11 17:37: 57 Yes 40mg Take 40 mg by mouth at bedtime. [facility] pantoprazol e 40 mg EC tablet 2021-11 17:37: 57 Yes 40mg Take 40 mg by mouth 2 (two) times daily. [facility] sodium phosphate 30 mmol in NaCl 0.9% (NS) 250 mL piggyback 2021-11 17:30: 00 11-07 21:49 :00 No 30mmol 30 mmol, IV Piggyback, ONCE, 1 dose, On Thu11/07/22 at 1130, Administer over 4 Hours, 250 mL [facility] apixaban (ELIQUIS) tablet 5 mg 2021-11 15:30: 00 Yes 5mg 5 mg, Oral, BID, First dose on Thu11/07/22 at 0930, Until Discontinu ed, Routine
Indicatio ns: Non-Valvul ar Atrial Fibrillati on [facility] aspirin chewable tablet 81 mg 2021-11 15:00: 00 Yes 81mg 81 mg, Oral, DAILY, First dose on Thu11/07/22 at 0900, Until Discontinu ed, Routine [facility] KCL (KLOR-CON M20) tablet 40 mEq 2021-11 15:00: 00 11-07 17:13 :00 No 40meq 40 mEq, Oral, ONCE, 1 dose, On Thu11/07/22 at 0900, Routine [facility] insulin regular, human (HUMULIN R U-500, CONC, INSULIN SC) 2021-11 14:59: 33 11-07 00:00 :00 No 35U inject 35 Units under the skin 2 (two) times daily. [facility] tirzepatide 5 mg/0.5 mL subcutaneou s injection 2021-11 14:59: 33 11-07 00:00 :00 No 5mg inject 5 mg under the skin weekly. [facility] metoprolol succinate XL (TOPROL XL) tablet 50 mg 2021-11 14:00: 00 Yes 50mg 50 mg, Oral, BID, First dose on Thu11/07/22 at 0800, Until Discontinu ed, Routine [facility] atorvastati n (LIPITOR) tablet 40 mg 2021-11 03:00: 00 Yes 40mg 40 mg, Oral, QHS, First dose on Thu11/06/22 at 2100, Until Discontinu ed, Routine [facility] metFORMIN 1,000 mg tablet 2021-11 00:00: 00 Yes [id number] 1000mg Take 1 tablet by mouth 2 (two) times daily with meals. [facility] insulin regular human (HUMULIN R) 500 unit/mL injection 2021-11 00:00: 00 Yes [id number] Do not take your scheduled regular insulin. [...] meal and cover again with sliding scale [facility] apixaban 5 mg tablet 2021-11 00:00: 00 02-23 00:00 :00 No [id number] 5mg Take 1 tablet by mouth 2 (two) times daily. Indication s: atrial fibrillati on [facility] tirzepatide (MOUNJARO) 7.5 mg/0.5 mL PnIj 2021-11 00:00: 00 11-12 00:00 :00 No [id number] 7.5mg inject 7.5 mg under the skin weekly. [facility] Sliding Scale Insulin - Lispro (HumaLOG) + Fsbg Testing 2021-11 23:00: 00 Yes Subcutaneo us, TID MEALS+HS, First dose on Thu11/06/22 at 1700, Until Discontinu ed, Routine [facility] enoxaparin (LOVENOX) injection 40 mg 2021-11 23:00: 00 11-07 15:23 :13 No 40mg 40 mg, Subcutaneo us, DAILY, First dose on Thu11/06/22 at 1700, Until Discontinu ed, Routine [facility] D5W-LR IV infusion 1,000 mL 2021-11 22:32: 00 Yes 1000mL at 150 mL/hr, IV Infusion, CONTINUOUS , Starting on Thu11/06/22 at 1645, Until Discontinu ed, Routine [facility] glucagon (GLUCAGEN DIAGNOSTIC KIT) injection 1 mg 2021-11 22:00: 35 Yes 1mg 1 mg, Intramuscu lar, PRN, Starting on Thu11/06/22 at 1600, Until Discontinu ed, [place], Blood Glucose < or = 70 mg/dL and patient is unable to swallow or has mental changes. [facility] dextrose 50 % in water (D50W) injection 25 mL 2021-11 22:00: 35 Yes 25mL 25 mL, Slow IV Push, PRN, Starting on Thu11/06/22 at 1600, Until Discontinu ed, [place], Blood Glucose < or = 70 mg/dL and patient is unable to swallow or has mental status changes. [facility] sodium bicarbonate 8.4 % (1 mEq/mL) injection 50 mEq 2021-11 16:15: 00 11-06 16:16 :00 No 50meq 50 mEq, Slow IV Push, ONCE, 1 dose, On Thu11/06/22 at 1015, Routine [facility] insulin glargine (LANTUS U-100) injection 20 Units 2021-11 15:30: 00 11-07 20:55 :57 No 20U 20 Units, Subcutaneo us, DAILY, First dose on Thu11/06/22 at 0930, Until Discontinu ed, Routine [facility] clotrimazol e (LOTRIMIN) 1 % topical cream 2021-11 15:00: 00 Yes Topical, DAILY, First dose on Thu11/06/22 at 0900, Until Discontinu ed, Routine [facility] morpHINE (2 mg/mL) injection 2 mg 2021-11 14:51: 00 11-06 16:16 :00 No 2mg 2 mg, Slow IV Push, ONCE, 1 dose, On Thu11/06/22 at 0900, Routine [facility] empaglifloz in-metformi n (SYNJARDY) 12.5-1,000 mg Tab 2021-11 14:36: 52 11-06 00:00 :00 No 2{tbl} Take 2 tablets by mouth 2 (two) times daily. [facility] it[facility] D5W-LR IV infusion 1,000 mL 2021-11 12:45: 00 11-06 21:59 :42 No 1000mL at 200 mL/hr, IV Infusion, CONTINUOUS , Starting on Thu11/06/22 at 0645, Until Thu11/06/22 at 1559, Routine [facility] ondansetron (ZOFRAN (PF)) injection 4 mg 2021-11 11:51: 01 Yes 4mg 4 mg, Slow IV Push, Q6HPRN, Starting on Thu11/06/22 at 0551, Until Discontinu ed, [place], Nausea and Vomiting (N/V) [facility] acetaminoph en (TYLENOL) tablet 650 mg 2021-11 11:39: 11 Yes 650mg 650 mg, Oral, Q6HPRN, Starting on Thu11/06/22 at 0539, Until Discontinu ed, Routine, Pain (scale 4-6), Pain (scale 1-3), headache [facility] NaCl 0.9% (NS) bolus infusion 1,000 mL 2021-11 07:30: 00 11-06 08:22 :00 No 1000mL at 999 mL/hr, 1,000 mL, IV Infusion, ONCE, 1 dose, On Thu11/06/22 at 0130, STAT [facility] morpHINE (2 mg/mL) injection 4 mg 2021-11 07:15: 00 11-06 07:16 :00 No 4mg 4 mg, Slow IV Push, ONCE, 1 dose, On Thu11/06/22 at 0115, Routine [facility] iopamidol (ISOVUE 370-500 mL) injection 150 mL 2021-11 07:00: 00 11-06 07:00 :00 No [id number] 150mL 150 mL, Intravenou s, ONCE, 1 dose, On Thu11/06/22 at 0100, Routine [facility] NaCl 0.45% (1/2NS) 1000 mL + KCL 20 mEq 2021-11 06:45: 00 11-06 11:36 :49 No 1000mL [facility] D5W 0.45% NaCl (1/2NS) 1 L + KCL 20 mEq 2021-11 06:43: 25 11-06 11:36 :49 No IV Infusion, at 200 mL/hr, PRN - SEE INSTRUCTIO NS, Starting on Thu11/06/22 at 0043, Until [place]bra 12/8/22 at 0536, [place], Blood glucose control [facility] acetaminoph en (TYLENOL) tablet 975 mg 2021-11 05:30: 00 11-06 04:58 :00 No 975mg 975 mg, Oral, ONCE, 1 dose, On Thu11/05/22 at 2330, [place] [facility] ondansetron (ZOFRAN (PF)) injection 4 mg 2021-11 05:30: 00 11-06 04:57 :00 No 4mg 4 mg, Slow IV Push, ONCE, 1 dose, On [facility]11/05/22 at 2330[facility] hexafluorid e microsphr (LUMASON) injection 5 mL 2021-11 17:15: 00 09-04 17:15 :00 No [id number] 5mL 5 mL, Intravenou s, ONCE, 1 dose, On [place]bra 09/04/22 at 1215, Routine
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 [facility] empaglifloz in-metformi n (SYNJARDY) 12.5-1,000 mg Tab 2021-11 14:37: 28 Yes 2{tbl} Take 2 tablets by mouth 2 (two) times daily. [facility] spironolact one 25 mg tablet 2021-11 14:37: 28 Yes 25mg Take 25 mg by mouth 2 (two) times daily. [facility] omega-3-dha -epa-dpa-fi sh oil (OMEGA-3 2100) 1,050-1,200 mg Cap 2021-11 14:37: 28 Yes Take by mouth 2 (two) times daily. [facility] METOPROLOL SUCCINATE ORAL 2021-11 14:37: 28 Yes 50mg Take 50 mg by mouth 2 (two) times daily. [facility] atorvastati n 20 mg tablet 2021-11 14:37: 28 Yes 40mg Take 40 mg by mouth at bedtime. [facility] pantoprazol e 40 mg EC tablet 2021-11 14:37: 28 Yes 40mg Take 40 mg by mouth 2 (two) times daily. [facility] insulin regular, human (HUMULIN R U-500, CONC, INSULIN SC) 2021-11 14:37: 28 Yes 35U inject 35 Units under the skin 2 (two) times daily. [facility] tirzepatide 5 mg/0.5 mL subcutaneou s injection 2021-11 14:37: 28 Yes 5mg inject 5 mg under the skin weekly. [facility] SITagliptin (JANUVIA) tablet 50 mg 2021-11 14:00: 00 Yes 50mg 50 mg, Oral, DAILY, First dose on Thu09/04/22 at 0900, Until Discontinu ed, Routine [facility] glargine,heydi m.rec.anlog (TOTRE SOLOSTAR U-300 INSULIN SC) 2021-11 13:06: 04 09-04 00:00 :00 No inject under the skin. [facility] apixaban (ELIQUIS) 5 mg tablet 2021-11 13:06: 04 09-04 00:00 :00 No 5mg Take 5 mg by mouth 2 (two) times daily. [facility] enoxaparin (LOVENOX) injection 40 mg 2021-11 05:45: 00 Yes 40mg 40 mg, Subcutaneo us, Q24H, First dose on Thu09/04/22 at 0045, Until Discontinu ed, Routine [facility] sennosides (SENOKOT) tablet 8.6 mg 2021-11 04:45: 00 Yes 8.6mg 8.6 mg, Oral, BID, First dose on Thu09/03/22 at 2345, Until Discontinu ed, Routine [facility] docusate (COLACE) capsule 100 mg 2022-1 0-06 04:45: 00 Yes 100mg 100 mg, Oral, BID, First dose on Thu09/03/22 at 2345, Until Discontinu ed, Routine [facility] aspirin chewable tablet 81 mg 2021-11 0-06 04:45: 00 Yes 81mg 81 mg, Oral, QAM WITH BREAKFAST, First dose on Thu09/03/22 at 2345, Until Discontinu ed, Routine [facility] sucralfate (CARAFATE) 100 mg/mL suspension 1,000 mg 2021-11 0 04:45: 00 Yes 1g 1,000 mg (1 g), Oral, AC+HS, First dose on Thu09/03/22 at 2345, Until Discontinu ed, Routine [facility] pantoprazol e (PROTONIX) injection 40 mg 2021-11 0 04:45: 00 Yes 40mg 40 mg, Slow IV Push, Q12H, First dose on Thu09/03/22 at 2345, Until Discontinu ed [facility] metoprolol tartrate (LOPRESSOR) tablet 50 mg 2021-11 0 04:45: 00 Yes 50mg 50 mg, Oral, BID, First dose on Thu09/03/22 at 2345, Until Discontinu ed, Routine [facility] insulin NPH and regular human 70-30 (70-30 U-100 INSULIN) 100 unit/mL (70-30) injection 35 Units 2021-11 0 04:45: 00 Yes 35U 35 Units, Subcutaneo us, BIDAC, First dose on Thu09/03/22 at 2345, Until Discontinu ed, Routine [facility] atorvastati n (LIPITOR) tablet 40 mg 2021-11 0 04:45: 00 Yes 40mg 40 mg, Oral, QHS, First dose on Thu09/03/22 at 2345, Until Discontinu ed, Routine [facility] furosemide (LASIX) injection 20 mg 2021-11 0-06 04:45: 00 09-04 13:50 :16 No 20mg 20 mg, IV Push, Q8H, First dose on Thu09/03/22 at 2345, Until Discontinu ed, [place] [facility] ondansetron (ZOFRAN (PF)) injection 4 mg 2021-11 0 04:33: 54 Yes 4mg 4 mg, Slow IV Push, Q6HPRN, Starting on Thu09/03/22 at 2333, Until Discontinu ed, Routine, Nausea and Vomiting (N/V) [facility] Sliding Scale Insulin - Lispro (HumaLOG) + Fsbg Testing 2021-11 0 04:30: 00 Yes Subcutaneo us, TID MEALS+HS, First dose on Thu09/03/22 at 2330, Until Discontinu ed, Routine [facility] nitroglycer in (NITROSTAT) sublingual tablet 0.4 mg 2021-11 22:30: 00 09-03 22:34 :00 No .4mg 0.4 mg, Sublingual , ONCE, 1 dose, On Thu09/03/22 at 1730, [place] [facility] magnesium oxide (MAG-OX 400) tablet 400 mg 04-24 01:00: 00 04-25 12:59 :00 No 400mg 400 mg, Oral, BID, 3 doses, First dose on Thu04/23/22 at 1999, Last dose on Thu04/24/22 at 1999, Routine [facility] maalox:diph enhydrAMINE :lidocaine 2 % viscous 1:1:1 ([facility]) oral suspension 15 mL 04-23 15:47: 15 Yes 15mL 15 mL, Oral, QDAILYPRN, Starting on Thu04/23/22 at 1047, Until Discontinu ed, Routine, indigestio n [facility] insulin glargine,heydi armas.rec.anlog (TOTRE SOLMIKEAR U-300 INSULIN SC) 04-23 15:15: 25 Yes inject under the skin. [facility] aspirin 81 mg chewable tablet 04-23 15:15: 25 Yes 81mg Take 81 mg by mouth daily. [facility] empaglifloz in-metformi n (SYNJARDY) 12.5-1,000 mg Tab 04-23 15:15: 25 Yes 2{tbl} Take 2 tablets by mouth 2 (two) times daily. [facility] apixaban (ELIQUIS) 5 mg tablet 04-23 15:15: 25 Yes 5mg Take 5 mg by mouth 2 (two) times daily. [facility] spironolact one 25 mg tablet 04-23 15:15: 25 Yes 25mg Take 25 mg by mouth 2 (two) times daily. [facility] KCL (KLOR-CON M20) tablet 40 mEq 04-23 14:15: 00 04-23 15:57 :00 No 40meq 40 mEq, Oral, ONCE, 1 dose, On Thu04/23/22 at 0915, Routine [facility] insulin glargine,heydi sandovalanlog (LANTUS SC) 04-23 10:54: 26 04-23 00:00 :00 No inject under the skin. [facility] sitagliptin phosphate (JANUVIA ORAL) 04-23 10:54: 04-23 00:00 :00 No Take by mouth. [facility] morpHINE (2 mg/mL) injection 2 mg 04-23 10:16: 57 Yes [id number] 2mg 2 mg, Slow IV Push, Q4HPRN, Starting on Thu04/23/22 at 0516, Until Discontinu ed, Routine, Pain (scale 7-10) [facility] Sliding Scale Insulin - Lispro (HumaLOG) + Fsbg Testing 04-23 03:00: 00 Yes Subcutaneo us, Q3H, First dose on Thu04/22/22 at 2200, Until Discontinu ed, Routine [facility] insulin glargine (LANTUS U-100) injection 25 Units 04-23 03:00: 00 Yes 25U 25 Units, Subcutaneo us, Q12H, First dose on Thu04/22/22 at 2200, Until Discontinu ed, Routine [facility] glucagon (GLUCAGEN DIAGNOSTIC KIT) injection 1 mg 04-23 02:55: 16 Yes 1mg 1 mg, Intramuscu lar, PRN, Starting on Thu04/22/22 at 2155, Until Discontinu ed, [place], Blood Glucose < or = 70 mg/dL and patient is unable to swallow or has mental changes. [facility] dextrose 50 % in water (D50W) injection 25 mL 04-23 02:55: 16 Yes 25mL 25 mL, Slow IV Push, PRN, Starting on Thu04/22/22 at 2155, Until Discontinu ed, [place], Blood Glucose < or = 70 mg/dL and patient is unable to swallow or has mental status changes. [facility] sucralfate 1 gram tablet 04-23 00:00: 00 05-24 04:59 :00 No [id number] 1g Take 1 tablet by mouth before meals and at bedtime for 30 days. [facility] pantoprazol e 40 mg EC tablet 04-23 00:00: 00 05-24 04:59 :00 No [id number] 40mg Take 1 tablet by mouth 2 (two) times daily for 30 days. [facility] metoprolol tartrate 50 mg tablet 04-23 00:00: 00 05-24 04:59 :00 No [id number] 50mg Take 1 tablet by mouth 2 (two) times daily for 30 days. [facility] atorvastati n (LIPITOR) 40 mg tablet 04-23 00:00: 00 05-24 04:59 :00 No [id number] 40mg Take 1 tablet by mouth at bedtime for 30 days. [facility] magnesium oxide 420 mg Tab 04-23 00:00: 00 05-09 04:59 :00 No [id number] 400mg Take 400 mg by mouth daily for 15 days. [facility] sucralfate (CARAFATE) tablet 1 g 04-22 21:30: 00 Yes 1g 1 g, Oral, AC+HS, First dose on Thu04/22/22 at 1630, Until Discontinu ed, Routine [facility] morpHINE (4 mg/mL) injection 2 mg 04-22 16:15: 00 04-22 15:15 :00 No [id number] 2mg 2 mg, Slow IV Push, ONCE, 1 dose, On Thu04/22/22 at 1115, Routine [facility] SITagliptin (JANUVIA) tablet 50 mg 04-22 14:00: 00 Yes 50mg 50 mg, Oral, DAILY, First dose on Thu04/22/22 at 0900, Until Discontinu ed [facility] aspirin chewable tablet 81 mg 04-22 14:00: 00 Yes 81mg 81 mg, Oral, DAILY, First dose on Thu04/22/22 at 0900, Until Discontinu ed, Routine [facility] metoprolol tartrate (LOPRESSOR) tablet 25 mg 04-22 13:00: 00 Yes 25mg 25 mg, Oral, BID, First dose on Thu04/22/22 at 0800, Until Discontinu ed, Routine [facility] apixaban (ELIQUIS) tablet 5 mg 04-22 13:00: 00 Yes 5mg 5 mg, Oral, BID, First dose on Thu04/22/22 at 0800, Until Discontinu ed, Routine
Indicatio ns: Non-Valvul ar Atrial Fibrillati on [facility] pantoprazol e (PROTONIX) EC tablet 40 mg 04-22 13:00: 00 Yes 40mg 40 mg, Oral, BID, First dose on Thu04/22/22 at 0800, Until Discontinu ed, Routine [facility] D5W 0.9% NaCl (NS) 1 L + KCL 40 mEq 04-22 13:00: 00 04-23 02:32 :18 No IV Infusion, at 200 mL/hr, CONTINUOUS , Starting on Thu04/22/22 at 0800, Until Thu04/22/22 at 2132, Routine [facility] ondansetron (ZOFRAN (PF)) injection 4 mg 04-22 12:18: 40 Yes 4mg 4 mg, Slow IV Push, Q6HPRN, Nausea and Vomiting (N/V), Starting on Thu04/22/22 at 0718
Do ses of ondansetro n 16 mg and above need to be administer ed via IV piggyback. For Dose >=24mg ECG monitoring is advisable.
[facility] atorvastati n (LIPITOR) tablet 40 mg 04-22 02:00: 00 Yes 40mg 40 mg, Oral, QHS, First dose on Thu04/21/22 at 2100, Until Discontinu ed, Routine [facility] pantoprazol e (PROTONIX) injection 40 mg 04-22 01:00: 00 04-22 00:00 :00 No [id number] 40mg 40 mg, Slow IV Push, ONCE, 1 dose, On Thu04/21/22 at 1999 [facility] NaCl 0.9% (NS) bolus infusion 2,000 mL 04-22 01:00: 00 04-21 23:59 :00 No [id number] 2000mL at 999 mL/hr, 2,000 mL, IV Infusion, ONCE, 1 dose, On Thu04/21/22 at 2000, [facility] ondansetron (ZOFRAN (PF)) injection 4 mg 04-22 00:30: 00 04-21 23:26 :00 No [id number] 4mg 4 mg, Slow IV Push, ONCE, 1 dose, On Thu04/21/22 at 1930, [facility] morpHINE (4 mg/mL) injection 4 mg 04-22 00:30: 00 04-21 23:26 :00 No [id number] 4mg 4 mg, Slow IV Push, ONCE, 1 dose, On Thu04/21/22 at 1930, STAT [facility] D5W 0.45% NaCl (1/2NS) IV infusion 1,000 mL 04-22 00:21: 22 04-22 11:50 :31 No [id number] 1000mL at 200 mL/hr, 1,000 mL, IV Infusion, PRN - SEE INSTRUCTBURT PALOMO, Starting on Thu04/21/22 at 1921, Until Thu04/22/22 at 0650, [place] [facility] iopamidol (ISOVUE 370-500 mL) injection 120 mL 04-21 22:15: 00 04-22 00:26 :00 No [id number] 120mL 120 mL, Intravenou s, ONCE, 1 dose, On Thu04/21/22 at 1715, Routine [facility] esomeprazol e magnesium (NEXIUM ORAL) 2020-11 14:20: 21 09-30 00:00 :00 No Take by mouth. [facility] insulin glargineheydirecPresleyanlog (LANTUS SC) 2020-11 13:40: 16 Yes inject under the skin. [facility] sitagliptin phosphate (JANUVIA ORAL) 2020-11 13:40: 16 Yes Take by mouth. [facility] aspirin 81 mg chewable tablet 2020-11 13:40: 16 Yes 81mg Take 81 mg by mouth daily. [facility] pantoprazol e 40 mg EC tablet 2020-11 00:00: 00 Yes [id number] 40mg Take 1 tablet by mouth 2 (two) times daily. [facility] sucralfate 1 gram tablet 07-02 00:00: 00 Yes [id number] 1g Take 1 tablet by mouth before meals and at bedtime. [facility] ondansetron (ZOFRAN ODT) 4 mg disintegrat ing tablet 07-02 00:00: 00 Yes [id number] 4mg Take 1 tablet by mouth every 8 (eight) hours as needed for Nausea and Vomiting (N/V). [facility] Immunizations Ordered Immunization Name Filled Immunization [...] SARS-COV-2 COVID-19 VACCINE - (MODERNA) [facility] Pneumococcal 15 Conjugate, PCV15 (Vaxneuvance) Unknown Completed [facility] HEP B, Adult Dosage Unknown Completed [facility] SARS-COV-2 COVID-19 VACCINE - (MODERNA) Unknown [facility] TDAP Unknown Completed [facility] Pneumococcal 15 Conjugate, PCV15 (Vaxneuvance) Unknown Completed [facility] HEP B, Adult Dosage Unknown Completed [facility] Vital Signs Vital Name Observation Time Observation Value Comments S ource Systolic blood pressure 2024-02-27 21:17:00 126 mm[Hg] [facility] Diastolic blood pressure 2024-02-27 21:17:00 70 mm[Hg] [facility] Heart rate 2024-02-27 21:17:00 97 /min [facility] Body temperature 2024-02-27 21:17:00 36.39 Chen [facility] Respiratory rate 2024-02-27 21:17:00 16 /min [facility] Oxygen saturation in Arterial blood by Pulse oximetry 2024-02-27 21:17:00 95 /min [facility] Body weight 2024-02-27 08:11:00 119.704 kg [facility] BMI 2024-02-27 08:11:00 41.33 kg/m2 [facility] Body height 2024-02-24 17:44:00 170.2 cm [facility] Systolic blood pressure 2023-04-17 13:42:00 [...] External Body temperature 2022-11-12 18:00:00 37 Chen [facility] Systolic blood pressure 2022-11-12 17:00:00 113 mm[Hg] [facility] Diastolic blood pressure 2022-11-12 17:00:00 67 mm[Hg] [facility] Heart rate 2022-11-12 17:00:00 91 /min [facility] 2022-11-12 17:00:00 25 /min [facility] Oxygen saturation in Arterial blood by Pulse oximetry 2022-11-12 17:00:00 93 /min [facility] Body weight 2022-11-12 09:42:00 117.981 kg [facility] BMI 2022-11-12 09:42:00 40.74 kg/m2 [facility] Body height 2022-11-10 06:00:00 170.2 cm [facility] Systolic blood pressure 2022-11-07 17:53:00 106 mm[Hg] [facility] Diastolic blood pressure 2022-11-07 17:53:00 70 mm[Hg] [facility] Heart rate 2022-11-07 17:53:00 102 /min [facility] Body temperature 2022-11-07 17:53:00 37.22 Chen [facility] Respiratory rate 2022-11-07 17:53:00 22 /min [facility] Oxygen saturation in Arterial blood by Pulse oximetry 2022-11-07 17:53:00 95 /min [facility] Body height 2022-11-06 11:30:00 170.2 cm [facility] Body weight 2022-11-06 11:30:00 116.5 kg [facility] BMI 2022-11-06 11:30:00 40.23 kg/m2 [facility] Systolic blood pressure 2022-09-04 17:00:00 129 mm[Hg] [facility] Diastolic blood pressure 2022-09-04 17:00:00 84 mm[Hg] [facility] Heart rate 2022-09-04 17:00:00 85 /min [facility] Oxygen saturation in Arterial blood by Pulse oximetry 2022-09-04 17:00:00 94 /min [facility] Body temperature 2022-09-04 16:21:00 36.33 Chen [facility] Respiratory rate 2022-09-04 16:21:00 18 /min [facility] Body height 2022-09-03 22:04:00 170.2 cm [facility] Body weight 2022-09-03 22:04:00 122.834 kg [facility] BMI 2022-09-03 22:04:00 42.41 kg/m2 [facility] Systolic blood pressure 2022-04-23 18:00:00 109 mm[Hg] [facility] Diastolic blood pressure 2022-04-23 18:00:00 56 mm[Hg] [facility] Heart rate 2022-04-23 18:00:00 85 /min [facility] Respiratory rate 2022-04-23 18:00:00 20 /min [facility] Oxygen saturation in Arterial blood by Pulse oximetry 2022-04-23 17:00:00 97 /min [facility] Body temperature 2022-04-23 16:30:00 36.72 Chen [facility] Body height 2022-04-21 22:46:00 170.2 cm [facility] Body weight 2022-04-21 22:46:00 113.399 kg [facility] BMI 2022-04-21 22:46:00 39.16 kg/m2 [facility] Systolic blood pressure 2021-09-30 18:36:00 125 mm[Hg] [facility] Diastolic blood pressure 2021-09-30 18:36:00 81 mm[Hg] [facility] Heart rate 2021-09-30 18:36:00 120 /min [facility] Body temperature 2021-09-30 18:36:00 36.61 Chen [facility] Body height 2021-09-30 18:36:00 170.2 cm [facility] Body weight 2021-09-30 18:36:00 99.066 kg [facility] BMI 2021-09-30 18:36:00 34.21 kg/m2 [facility] Oxygen saturation in Arterial blood by Pulse oximetry 2021-09-30 18:36:00 93 /min [facility] Procedures Procedure Date / Time Performed Performing Clinician Source POCT GLUCOSE (AUTOMATED) 2024-02-27 21:18:00 Kvng Mcallister [facility] POCT GLUCOSE (AUTOMATED) 2024-02-27 16:59:00 Kvng Mcallister [facility] POCT GLUCOSE (AUTOMATED) 2024-02-27 12:24:00 [facility] MAGNESIUM 2024-02-27 09:34:00 [facility] BASIC METABOLIC PANEL (NA, K, CL, CO2, GLUCOSE, BUN, CREATININE, CA) 2024-02-27 09:34:00 Ludwin La [facility] CBC WITH DIFF 2024-02-27 09:34:00 Ludwin La [facility] POCT GLUCOSE (AUTOMATED) 2024-02-27 02:45:00 [facility]) 2024-02-26 21:32:00 [facility]SE (AUTOMATED) 2024-02-26 17:05:00 [facility] PO[facility]SE (AUTOMATED) 2024-02-26 12:32:00 Kvng Mcallister [facility] MAGNESIUM 2024-02-26 08:40:00 [facility] BASIC METABOLIC PANEL (NA, K, CL, CO2, GLUCOSE, BUN, CREATININE, CA) 2024-02-26 08:40:00 Ludwin La [facility] CBC WITH DIFF 2024-02-26 08:40:00 Ludwin La [facility] POCT GLUCOSE (AUTOMATED) 2024-02-26 01:14:00 [facility]SE (AUTOMATED) 2024-02-25 21:08:00 Kvng Mcallister [facility] POCT GLUCOSE (AUTOMATED) 2024-02-25 16:24:00 Kvng Mcallister [facility] POCT GLUCOSE (AUTOMATED) 2024-02-25 14:10:00 Kvng Mcallister [facility] POCT GLUCOSE (AUTOMATED) 2024-02-25 13:01:00 Kvng Mcallister [facility] BASIC METABOLIC PANEL (NA, K, CL, CO2, GLUCOSE, BUN, CREATININE, CA) 2024-02-25 10:13:00 Marlene Swartz [facility] CBC WITH DIFF 2024-02-25 10:13:00 Marlene Swartz [facility] POCT GLUCOSE (AUTOMATED) 2024-02-25 01:29:00 [facility] PO[facility]UCOSE (AUTOMATED) 2024-02-24 21:31:00 Kvng Mcallister [facility] POCT GLUCOSE (AUTOMATED) 2024-02-24 17:59:00 Kvng Mcallister [facility] LACTIC ACID WHOLE BLOOD 2024-02-24 15:22:00 Tomas Mcallister [facility] URINALYSIS 2024-02-24 09:46:00 [facility] CT ABDOMEN PELVIS W CONTRAST 2024-02-24 08:44:48 Sarah Cruz [facility] HB ECG ROUTINE & RHYTHM STRIP 2024-02-24 07:34:15 [facility] 21 + LACTIC ACID 2024-02-24 07:26:00 [facility] CHEST 1 VW 2024-02-24 06:22:43 Anthony [facility] LIPASE 2024-02-24 06:20:00 Sarah Cruz [facility] MAGNESIUM 2024-02-24 06:20:[address] [facility] TROPONIN I 2024-02-24 06:20:[address] [facility] COMP. METABOLIC PANEL (90551) 2024-02-24 06:20:00 Anthony [facility] CBC WITH DIFF 2024-02-24 06:20:00 Anthony [facility] GLYCOSYLATED HEMOGLOBIN (A1C) 2024-02-24 06:20:00 Reece Floers [facility] RAPID INFLUENZA A/B 2024-02-24 06:20:00 Ba Cruz [facility] N-TERMINAL PRO-BNP 2024-02-24 06:20:00 Anthony [facility] COVID-19 (ID NOW RAPID TESTING) 2024-02-24 06:20:00 Anthony [facility] LAB ONLY COVID INTERPRETATION 2024-02-24 06:20:00 Anthony [facility] POCT GLUCOSE (AUTOMATED) 2024-02-24 06:09:00 Anthony [facility] [id number] 2023-11-10 00:00:00 [facility] REAGENT STRIP/BLOOD GLUCOSE 2023-04-17 00:00:00 Outside, Reported Maisha Moy - External TELERETINAL DIABETIC SCREENING 2023-04-02 15:16:00 John Beckford - External POCT GLUCOSE (AUTOMATED) 2022-11-12 17:08:00 Cole Love [facility] POCT GLUCOSE (AUTOMATED) 2022-11-12 13:30:00 Cole Love [facility] FERRITIN SERUM 2022-11-12 09:53:00 Kate [facility] HEPATIC FUNCTION PANEL (08261) (ALB,T.PRO,BILI T,BU/BC,ALT,AST,ALK PHOS) 2022-11-12 09:53:00 [facility] BASIC METABOLIC PANEL (NA, K, CL, CO2, GLUCOSE, BUN, CREATININE, CA) 2022-11-12 09:53:00 Kate [facility] POCT GLUCOSE (AUTOMATED) 2022-11-12 02:07:00 Cole Love zeus [facility] POCT GLUCOSE (AUTOMATED) 2022-11-11 21:59:00 Cole Love zeus [facility] POCT GLUCOSE (AUTOMATED) 2022-11-11 17:08:00 Cole Love zeus [facility] POCT GLUCOSE (AUTOMATED) 2022-11-11 13:19:00 Cole Love zeus [facility] MAGNESIUM 2022-11-11 10:21:00 [facility] ([id number]) (ALB,T.PRO,BILI T,BU/BC,ALT,AST,ALK PHOS) 2022-11-11 10:21:00 Cholo Love [facility] BASIC METABOLIC PANEL (NA, K, CL, CO2, GLUCOSE, BUN, CREATININE, CA) 2022-11-11 10:21:00 Natasha [facility] CBC WITH DIFF 2022-11-11 10:21:00 Natasha [facility] POCT GLUCOSE (AUTOMATED) 2022-11-11 02:37:00 Cole Love zeus [facility] POCT GLUCOSE (AUTOMATED) 2022-11-10 22:18:00 [place], J [facility] US ABDOMEN LIMITED 2022-11-10 21:00:00 Kate [facility] HEPATITIS B SURFACE ANTIBODY 2022-11-10 19:01:00 Kate [facility] HEPATITIS B SURFACE ANTIGEN 2022-11-10 19:01:00 Kate [facility] HCV ANTIBODY 2022-11-10 19:01:00 Kate [facility] HEPATITIS A VIRUS ANTIBODY IGM 2022-11-10 19:01:00 Kate [facility] POCT GLUCOSE (AUTOMATED) 2022-11-10 17:06:00 Natasha [facility] MAGNESIUM 2022-11-10 15:00:00 Kate [facility] COMP. METABOLIC PANEL ([id number]) 2022-11-10 15:00:00 Kate [facility] POCT GLUCOSE (AUTOMATED) 2022-11-10 13:14:00 Natasha [facility] URINALYSIS 2022-11-10 03:56:00 Murali Zafar [facility] URINE CULTURE 2022-11-10 03:56:00 Murali Zafar [facility] AC PANEL 20 + LACTIC ACID 2022-11-10 03:47:00 Murali Zafar [facility] LIPASE 2022-11-10 03:46:00 [facility] TROPONIN I 2022-11-10 03:46:00 [facility] COMP. METABOLIC PANEL ([id number]) 2022-11-10 03:46:00 [facility]FF 2022-11-10 03:46:00 Murali Zafar [facility] N-TERMINAL PRO-BNP 2022-11-10 03:46:00 [facility] ROUTINE & RHYTHM STRIP 2022-11-10 03:16:17 Murali Zafar [facility] POCT GLUCOSE (AUTOMATED) 2022-11-10 03:09:00 Kvng Zafar [facility] POCT GLUCOSE (AUTOMATED) 2022-11-10 02:59:00 [facility] CONSENT/REFUSAL FOR DIAGNOSIS AND TREATMENT 2022-11-10 02:39:20 Doctor Unassigned, [place] [facility] POCT GLUCOSE (AUTOMATED) 2022-11-07 22:01:00 Yarely Cade [facility] POCT GLUCOSE (AUTOMATED) 2022-11-07 17:28:00 Yarely Cade [facility] POCT GLUCOSE (AUTOMATED) 2022-11-07 14:16:00 Yarely Cade [facility] PHOSPHORUS 2022-11-07 11:33:00 Dar Leal [facility] BETA HYDROXY-BUTYRATE 2022-11-07 11:33:00 Zeyad Leal [facility] BASIC METABOLIC PANEL (NA, K, CL, CO2, GLUCOSE, BUN, CREATININE, CA) 2022-11-07 11:33:00 Dar Leal [facility] POCT GLUCOSE (AUTOMATED) 2022-11-07 03:32:00 Yarely Cade [facility] POCT GLUCOSE (AUTOMATED) 2022-11-06 22:56:00 Abby Palomino [facility] BETA HYDROXY-BUTYRATE 2022-11-06 20:25:00 [facility] (NA, K, CL, CO2, GLUCOSE, BUN, CREATININE, CA) 2022-11-06 20:25:00 Ankur [facility] POCT GLUCOSE (AUTOMATED) 2022-11-06 16:15:00 Abby Palomino [facility] BASIC METABOLIC PANEL (NA, K, CL, CO2, GLUCOSE, BUN, CREATININE, CA) 2022-11-06 11:53:00 Ankur [facility] MRSA / MSSA SCREEN BY VIMAL ROBERT 2022-11-06 11:53:00 Ankur [facility] POCT GLUCOSE (AUTOMATED) 2022-11-06 11:26:00 Abby Palomino [facility] POCT GLUCOSE (AUTOMATED) 2022-11-06 09:26:00 Kvng Zafar [facility] POCT GLUCOSE(AGE >30DAYS) 2022-11-06 08:15:00 Murali Zafar [facility] PHOSPHORUS 2022-11-06 07:25:00 Murali Zafar [facility] MAGNESIUM 2022-11-06 07:25:00 [facility] OSMOLALITY, SERUM OR PLASMA 2022-11-06 07:25:00 Murali Zafar [facility] BETA HYDROXY-BUTYRATE 2022-11-06 07:25:00 Leif Zafar [facility] BASIC METABOLIC PANEL (NA, K, CL, CO2, GLUCOSE, BUN, CREATININE, CA) 2022-11-06 07:25:00 Murali Zafar [facility] LIPID PANEL ([id number])(TOTAL CHOLESTEROL, TRIGLYCERIDES, HDL) 2022-11-06 07:25:00 Monae Pascual [facility] GLYCOSYLATED HEMOGLOBIN (A1C) 2022-11-06 07:25:00 Murali Zafar [facility] POCT GLUCOSE(AGE >30DAYS) 2022-11-06 06:58:00 Murali Zafar [facility] POCT GLUCOSE (AUTOMATED) 2022-11-06 06:55:00 Kvng Zafar [facility] CRITICAL CARE 2022-11-06 06:50:18 Murali Zafar [facility] AC PANEL 20 + LACTIC ACID 2022-11-06 06:14:00 Murali Zafar [facility] CT ABDOMEN PELVIS W CONTRAST 2022-11-06 06:05:19 Murali Zafar [facility] CT CHEST PULMONARY ANGIOGRAM 2022-11-06 06:05:19 Murali Zafar [facility] BLOOD CULTURE SCREEN 2022-11-06 04:51:00 Juan Zafar [facility] LACTIC ACID WHOLE BLOOD 2022-11-06 04:50:00 Do araceli Zafar [facility] XR CHEST 1 VW 2022-11-06 04:21:53 Murali Zafar [facility] LIPASE 2022-11-06 04:08:00 [facility] TROPONIN I 2022-11-06 04:08:00 [facility]i [facility] COMP. METABOLIC PANEL ([id number]) 2022-11-06 04:08:00 Murali Zafar [facility] CBC WITH DIFF 2022-11-06 04:08:00 Murali Zafar [facility] URINALYSIS 2022-11-06 04:08:00 [facility]urali [facility] URINE CULTURE 2022-11-06 04:08:00 Murali Zafar [facility] RAPID INFLUENZA A/B 2022-11-06 04:08:00 Emma Zafar [facility] N-TERMINAL PRO-BNP 2022-11-06 04:08:00 Murali Zafar [facility] COVID-19 (ID NOW RAPID TESTING) 2022-11-06 04:08:00 Murali Zafar [facility] LAB ONLY COVID INTERPRETATION 2022-11-06 04:08:00 Murali Zafar [facility] CONSENT/REFUSAL FOR DIAGNOSIS AND TREATMENT 2022-11-06 03:03:01 Doctor Unassigned, [place] [facility] HOSPITAL ADMISSION 2022-11-05 06:01:00 Doctor Un assigned, [place] [facility] POCT GLUCOSE (AUTOMATED) 2022-09-04 16:52:00 Kvng Mcallister [facility] US GALL BLADDER 2022-09-04 15:00:00 Jaxon [facility] POCT GLUCOSE (AUTOMATED) 2022-09-04 12:51:00 Kvng Mcallister [facility] TROPONIN I 2022-09-04 11:06:00 [facility] COMP. METABOLIC PANEL ([id number]) 2022-09-04 11:06:00 Jaxon Thomas [facility] ACUTE CARE VENOUS BLOOD GAS 2022-09-04 11:06:00 Jaxon Thomas [facility] CBC WITH DIFF 2022-09-04 11:06:00 Jaxon Thomas [facility] N-TERMINAL PRO-BNP 2022-09-04 11:06:00 Lesley, [facility] PHOSPHORUS 2022-09-04 05:55:00 Lesley [facility] URIC ACID 2022-09-04 05:55:00 Lesley [facility] MAGNESIUM 2022-09-04 05:55:00 Lesley [facility] TROPONIN I 2022-09-04 05:55:00 Lesley [facility] THYROID STIMULATING HORMONE 2022-09-04 05:55:00 Lesley [facility] LIPID PANEL ([id number])(TOTAL CHOLESTEROL, TRIGLYCERIDES, HDL) 2022-09-04 05:55:00 Lesley [facility] SEDIMENTATION RATE 2022-09-04 05:55:00 Lesley [facility] PROTHROMBIN TIME / INR 2022-09-04 05:55:00 Lesley [facility] HEPATITIS B SURFACE ANTIBODY 2022-09-04 05:55:00 Lesley [facility] HEPATITIS B SURFACE ANTIGEN 2022-09-04 05:55:00 Lesley [facility] HCV ANTIBODY 2022-09-04 05:55:00 Lesley [facility] HAV ANTIBODY (IGG AND IGM) 2022-09-04 05:55:00 Lesley [facility] PROCALCITONIN 2022-09-04 05:55:00 Lesley [facility] POCT GLUCOSE (AUTOMATED) 2022-09-04 05:31:00 [facility] XR CHEST 1 VW 2022-09-03 22:42:00 Murali Zafar [facility] ACTIVATED PARTIAL THRMPLAS KAR 2022-09-03 22:26:00 Andrade Murali [facility] N-TERMINAL PRO-BNP 2022-09-03 22:26:00 Murali Zafar [facility] LIPASE 2022-09-03 22:26:00 [facility]i [facility] TROPONIN I 2022-09-03 22:26:00 Murali Zafar [facility] COMP. METABOLIC PANEL ([id number]) 2022-09-03 22:26:00 Murali Zafar [facility] CBC WITH DIFF 2022-09-03 22:26:00 Murali Zafar [facility] GLYCOSYLATED HEMOGLOBIN (A1C) 2022-09-03 22:26:00 Jaxon Thomas [facility] NOTICE OF PRIVACY PRACTICES 2022-09-03 21:52:55 Doctor Unassigned, [place] [facility] CONSENT/REFUSAL FOR DIAGNOSIS AND TREATMENT 2022-09-03 21:52:24 Doctor Unassigned, [place] [facility] POCT GLUCOSE (AUTOMATED) 2022-04-23 18:58:00 Cole Love [facility] POCT GLUCOSE (AUTOMATED) 2022-04-23 15:35:00 Cole Love [facility] POCT GLUCOSE (AUTOMATED) 2022-04-23 12:41:00 Cole Love [facility] POCT GLUCOSE (AUTOMATED) 2022-04-23 11:33:00 Cole Love [facility] MAGNESIUM 2022-04-23 09:33:00 Sachin [facility] BASIC METABOLIC PANEL (NA, K, CL, CO2, GLUCOSE, BUN, CREATININE, CA) 2022-04-23 09:33:00 Sachin Mcallister [facility] POCT GLUCOSE (AUTOMATED) 2022-04-23 09:33:00 Cole Love [facility] POCT GLUCOSE (AUTOMATED) 2022-04-23 07:17:00 Cole Love [facility] POCT GLUCOSE (AUTOMATED) 2022-04-23 05:25:00 Cole Love [facility] POCT GLUCOSE (AUTOMATED) 2022-04-23 04:07:00 Cole Love [facility] POCT GLUCOSE (AUTOMATED) 2022-04-23 03:09:00 Cole Love [facility] POCT GLUCOSE (AUTOMATED) 2022-04-23 02:22:00 Cole Love [facility] BASIC METABOLIC PANEL (NA, K, CL, CO2, GLUCOSE, BUN, CREATININE, CA) 2022-04-23 01:15:00 Annette Holland [facility] POCT GLUCOSE (AUTOMATED) 2022-04-23 01:15:00 Cole Love [facility] POCT GLUCOSE (AUTOMATED) 2022-04-23 00:02:00 Cole Love [facility] POCT GLUCOSE (AUTOMATED) 2022-04-22 23:01:00 Kvng Mcallister [facility] POCT GLUCOSE (AUTOMATED) 2022-04-22 22:05:00 Kvng Mcallister [facility] BASIC METABOLIC PANEL (NA, K, CL, CO2, GLUCOSE, BUN, CREATININE, CA) 2022-04-22 21:05:00 Annette Holland [facility] POCT GLUCOSE (AUTOMATED) 2022-04-22 21:02:00 Kvng Mcallister [facility] POCT GLUCOSE (AUTOMATED) 2022-04-22 19:45:00 [facility] POCT GLUCOSE (AUTOMATED) 2022-04-22 18:42:00 [facility] POCT GLUCOSE (AUTOMATED) 2022-04-22 17:22:00 Cole Love [facility] POCT GLUCOSE (AUTOMATED) 2022-04-22 16:05:00 Cole Love [facility] TROPONIN I 2022-04-22 15:33:00 [facility] METABOLIC PANEL (NA, K, CL, CO2, GLUCOSE, BUN, CREATININE, CA) 2022-04-22 15:33:00 Annette Holland [facility] CBC WITH DIFF 2022-04-22 15:33:00 Cholo Love [facility] POCT GLUCOSE (AUTOMATED) 2022-04-22 14:25:00 Cole Love [facility] POCT GLUCOSE (AUTOMATED) 2022-04-22 13:39:00 Cole Love [facility] POCT GLUCOSE (AUTOMATED) 2022-04-22 12:26:00 Cole Love [facility] POCT GLUCOSE (AUTOMATED) 2022-04-22 11:30:00 Cole Love [facility] BASIC METABOLIC PANEL (NA, K, CL, CO2, GLUCOSE, BUN, CREATININE, CA) 2022-04-22 10:51:00 Annette Holland [facility] POCT GLUCOSE (AUTOMATED) 2022-04-22 10:47:00 Cole Love [facility] POCT GLUCOSE (AUTOMATED) 2022-04-22 10:44:00 Cole Love [facility] POCT GLUCOSE (AUTOMATED) 2022-04-22 09:32:00 Cole Love [facility] POCT GLUCOSE (AUTOMATED) 2022-04-22 08:34:00 Cole Love [facility] BASIC METABOLIC PANEL (NA, K, CL, CO2, GLUCOSE, BUN, CREATININE, CA) 2022-04-22 07:39:00 Annette Holland [facility] POCT GLUCOSE (AUTOMATED) 2022-04-22 07:33:00 Cole Love [facility] POCT GLUCOSE (AUTOMATED) 2022-04-22 06:29:00 Cole Love [facility] BASIC METABOLIC PANEL (NA, K, CL, CO2, GLUCOSE, BUN, CREATININE, CA) 2022-04-22 05:30:00 Annette Holland [facility] POCT GLUCOSE (AUTOMATED) 2022-04-22 05:29:00 Cole Love [facility] POCT GLUCOSE (AUTOMATED) 2022-04-22 04:32:00 Cole Love [facility] POCT GLUCOSE (AUTOMATED) 2022-04-22 03:40:00 Cole Love [facility] MRSA / MSSA SCREEN BY VIMAL ROBERT 2022-04-22 03:30:00 Cholo Love [facility] LACTIC ACID WHOLE BLOOD 2022-04-22 03:09:00 Alexandru Love [facility] POCT GLUCOSE (AUTOMATED) 2022-04-22 02:14:00 Cole Love [facility] COVID-19 (ID NOW RAPID TESTING) 2022-04-22 01:25:00 Skyler [facility] LAB ONLY COVID INTERPRETATION 2022-04-22 01:25:00 Skyler [facility] URINALYSIS 2022-04-22 01:23:00 [facility]OL[facility] PANEL (NA, K, CL, CO2, GLUCOSE, BUN, CREATININE, CA) 2022-04-22 01:14:00 [facility], SERUM OR PLASMA 2022-04-22 01:11:00 Skyler [facility] BETA HYDROXY-BUTYRATE 2022-04-22 01:11:00 [facility] GLU[facility] (AUTOMATED) 2022-04-22 01:08:00 Cole Love [facility] CT ABDOMEN PELVIS W CONTRAST 2022-04-22 00:25:33 Skyler [facility] XR CHEST 1 VW 2022-04-22 00:18:00 Annette Holland [facility] AC PANEL 21 + LACTIC ACID 2022-04-22 00:04:00 Skyler [facility] URINALYSIS 2022-04-21 23:11:00 Skyler [facility] PHOSPHORUS 2022-04-21 23:05:00 Skyler [facility] LIPASE 2022-04-21 23:05:00 Skyler [facility] MAGNESIUM 2022-04-21 23:05:00 Skyler [facility] TROPONIN I 2022-04-21 23:05:00 Skyler [facility] COMP. METABOLIC PANEL ([id number]) 2022-04-21 23:05:00 Skyler [facility] CBC WITH DIFF 2022-04-21 23:05:00 Annette Holland [facility] GLYCOSYLATED HEMOGLOBIN (A1C) 2022-04-21 23:05:00 Skyler [facility] PROTHROMBIN TIME / INR 2022-04-21 23:05:00 Haylee Holland [facility] N-TERMINAL PRO-BNP 2022-04-21 23:05:00 Nelly Holland [facility] HB ECG ROUTINE & RHYTHM STRIP 2022-04-21 22:57:52 Annette Holland [facility] CONSENT/REFUSAL FOR DIAGNOSIS AND TREATMENT 2022-04-21 22:36:06 Doctor Unassigned, [place] [facility] NOTICE OF PRIVACY PRACTICES 2022-04-21 22:34:32 Doctor Unassigned, [place] [facility] Encounters Start Date/Time End Date/Time Encounter Type Admission Type Attending [facility] Care Department Encounter ID Source 2024-11-03 14:39:22 2024-11-03 14:39:22 Outpatient [facility] [id number] 2024-10-28 14:42:01 2024-10-28 14:42:01 Outpatient [facility] [id number] 2024-10-25 13:47:06 2024-10-25 13:47:06 Outpatient [facility] [id number] 2024-09-02 00:00:00 2024-09-02 00:00:00 Outpatient JOHN BECKFORD [id number] [facility] 2024-08-17 00:00:00 2024-08-17 00:00:00 Outpatient JOHN BECKFORD [id number] [facility] 2024-07-21 00:00:00 2024-07-21 00:00:00 [id number] [facility]:00 2024-06-11 00:00:00 Outpatient [facility] EV[facility] [id number] [facility]-20 00:00:00 2024-05-20 00:00:00 Outpatient WENDY MORENO [id number] [facility]00 2024-03-29 00:00:00 Outpatient WENDY MORENO [id number] [facility] 2024-03-26 00:00:00 2024-03-26 00:00:00 Outpatient WENDY MORENO [id number] [facility] 2024-03-14 00:00:00 2024-03-14 00:00:00 Outpatient MAISHA EVANS [id number] [facility] 2024-03-11 00:00:00 2024-03-11 00:00:00 Outpatient MAISHA EVANS [id number] [facility] 2024-03-10 00:00:00 2024-03-10 00:00:00 Outpatient MAISHA EVANS [id number] [facility] 2024-03-09 00:00:00 2024-03-09 00:00:00 Outpatient MAISHA EVANS [id number] [facility] 2024-03-03 00:00:00 2024-03-03 00:00:00 Outpatient MAISHA EVANS [id number] [facility] 2024-03-03 00:00:00 2024-03-03 00:00:00 Outpatient MAISHA EVANS [id number] [facility] 2024-02-29 00:00:00 2024-02-29 00:00:00 Outpatient MAISHA EVANS [id number] [facility] 2024-02-29 00:00:00 2024-02-29 00:00:00 Transition of Care Florence Downs ARTURO ..840.114 350.1.13.10 4.2.7.2.686 [id number] [facility] 2024-02-24 01:01:00 2024-02-27 17:45:00 Inpatient X SACHIN MCALLISTER VTREGINO JOSE ENRIQUE [id number] [facility] 2024-02-24 01:01:00 2024-02-27 17:45:00 Hospital Encounter Sarah Cruz, Sachin George [facility] ..840.114 350.1.13.10 4.2.7.2.686 [id number] [facility] 2024-02-26 00:00:00 2024-02-26 00:00:00 Outpatient MAISHA EVANS [id number] [facility] 2024-01-20 13:37:45 2024-01-20 13:37:45 Outpatient SFA [facility] [id number] Ron Alejandre 2023-11-18 09:30:00 2023-11-18 09:30:00 Outpatient WENDY MORENO [id number] [facility] 2023-11-10 10:33:00 2023-11-17 19:30:00 Inpatient Jeremias Hall HCABM INTE.02 [id number] [facility] 2023-11-11 09:56:00 2023-11-11 09:56:00 Outpatient Palmirajazlyn Jeremias HCACL LABO [id number] [facility] 2023-11-11 00:00:00 2023-11-11 00:00:00 Outpatient MAISHA EVANS [id number] [facility] 2023-11-10 15:15:00 2023-11-10 15:15:00 Outpatient WENDY MORENO [id number] [facility] 2023-11-06 00:00:00 2023-11-06 00:00:00 Outpatient MAISHA EVANS [id number] [facility] 2023-10-27 00:00:00 2023-10-27 00:00:00 Outpatient MAISHA EVANS [id number] [facility] 2023-09-24 00:00:00 2023-09-24 00:00:00 Outpatient JOHN BECKFORD [id number] [facility] 2023-08-07 15:15:00 2023-08-07 15:15:00 Outpatient WENDY MORENO [id number] [facility] 2023-07-31 16:45:00 2023-07-31 16:45:00 Outpatient WENDY MORENO [id number] [facility] 2023-06-26 14:40:00 2023-06-26 14:40:00 Outpatient PRADEEPLYUBOV Briscoe MAISHA EVANS [id number] [facility] 2023-05-14 00:00:00 2023-05-14 00:00:00 Outpatient MD MAISHA MEADE [id number] [facility] 2023-04-23 16:00:00 2023-04-23 16:00:00 Outpatient ROHINI CHAMBERS MAISHA EVANS [id number] [facility] 2023-04-23 13:30:00 2023-04-23 13:30:00 Outpatient JOHN BECKFORD MAISHA EVANS [id number] [facility] 2023-04-21 08:00:00 2023-04-21 08:00:00 Outpatient YAYAL, MARCELLE EVANS [id number] [facility] 2023-04-17 09:15:00 2023-04-17 09:15:00 Outpatient JOSH WENDY MAISHA EVANS [id number] [facility] 2023-04-16 00:00:00 2023-04-16 00:00:00 Outpatient MD MAISHA MEADE [id number] [facility] 2023-04-14 00:00:00 2023-04-14 00:00:00 Outpatient HUNDL, MARCELLE EVANS [id number] [facility] 2023-04-10 00:00:00 2023-04-10 00:00:00 Outpatient HUNDL, MARCELLE EVANS [id number] [facility] 2023-04-09 00:00:00 2023-04-09 00:00:00 Outpatient HUNDL, MARCELLE EVANS [id number] [facility] 2023-04-08 08:00:00 2023-04-08 08:00:00 Outpatient HUNDL, MARCELLE EVANS [id number] [facility] 2023-04-08 00:00:00 2023-04-08 00:00:00 Outpatient GROUP, MAISHA EVANS [id number] [facility] 2023-04-08 00:00:2023-04-08 00:00:00 Outpatient WENDY MORENO MAISHA EVANS [id number] [facility] 2023-04-08 00:00:00 2023-04-08 00:00:00 Outpatient RADHA GAMINO MAISHA EVANS [id number] [facility] 2023-04-07 00:00:00 2023-04-07 00:00:00 Outpatient MIKATyreseJOHN [id number] [facility] 2023-04-02 10:20:00 2023-04-02 10:20:00 Outpatient YINKA MAISHA EVANS [id number] [facility] 2023-04-02 09:00:00 2023-04-02 09:00:00 Outpatient ANALY JOHN EVANS [id number] [facility] 2023-04-02 00:00:00 2023-04-02 00:00:00 Outpatient AKBAR JEREZ [id number] [facility] 2022-11-13 00:00:00 2022-11-13 00:00:00 Transition of Care Florence Botello [place] 1..114 350.1.13.10 4.2.7.2.686 [id number] [facility] 2022-11-09 21:02:00 2022-11-12 15:36:00 Inpatient X CHOLO LOVE [facility] [id number] [facility] 2022-11-09 21:02:00 2022-11-12 15:36:00 Hospital Encounter Murali Zafar [facility], Jelani [facility] 1..114 350.1.13.10 4.2.7.2.686 [id number] [facility] 2022-11-12 00:00:00 2022-11-12 00:00:00 Telephone Nata Vu [facility] 1.840.114 350.1.13.10 4.2.7.2.686 [id number] [facility] 2022-11-10 00:00:00 2022-11-10 00:00:00 Transition of Care Florence Botello Anna MORRIS 1..840.114 350.1.13.10 4.2.7.2.686 [id number] [facility] 2022-11-05 21:27:00 2022-11-07 17:37:00 Inpatient X JON CADE [facility] JOSE ENRIQUE [id number] [facility] 2022-11-05 21:27:00 2022-11-07 17:37:00 Hospital Encounter Murali Zafar Joseph Henrie, Bradley [facility] 1..840.114 350.1.13.10 4.2.7.2.686 [id number] [facility] 2022-10-31 13:11:41 2022-10-31 13:11:41 Outpatient SFA [facility] [id number] Ron Monique [place] 2022-09-24 08:23:00 2022-09-24 08:23:00 Outpatient Lukasz Bejarano [facility] [id number] [facility] 2022-09-08 00:00:00 2022-09-08 00:00:00 Outpatient JAXON MONIQUE [facility] [id number] [facility] 2022-09-03 17:08:00 2022-09-04 13:45:00 Outpatient JIA PARKER [facility] JOSE ENRIQUE [id number] [facility] 2022-09-03 17:08:00 2022-09-04 13:45:00 Emergency Murali Zafar David Abdullah, Yaman [facility] 1..840.114 350.1.13.10 4.2.7.2.686 [id number] [facility] 2022-08-20 19:28:00 2022-08-20 19:28:00 Outpatient EM Sang Rey [facility] CPUL [id number] [facility] 2022-04-24 00:00:00 2022-04-24 00:00:00 Transition of Care Rosmery Florence Anna MORRIS 1.840.114 350.1.13.10 4.2.7.2.686 [id number] [facility] 2022-04-21 17:49:00 2022-04-23 15:15:00 Inpatient Mj SACHIN MCALLISTER [facility] JOSE ENRIQUE [id number] [facility] 2022-04-21 17:49:00 2022-04-23 15:15:00 Hospital Encounter Annette Holland, Sachin Brush [facility] 1.840.114 350.1.13.10 4.2.7.2.686 [id number] [facility] 2021-12-24 00:00:00 2021-12-24 00:00:00 Outpatient [facility] PIJFIFFDTZ -[id number] [facility] 2021-09-30 14:00:00 2021-09-30 14:00:00 Outpatient GERSON PISANO [facility] [id number] [facility] 2021-09-30 13:25:55 2021-09-30 13:55:55 Office Visit Dustin Cervantes Joseph Marc [facility] ..114 350.1.13.10 4.2.7.2.686 [id number] [facility] 2021-09-30 00:00:00 2021-09-30 00:00:00 Orders Only Doctor Unassigned, [place] [facility] 1.84.114 350.1.13.10 4.2.7.2.686 [id number] [facility] 2021-08-09 00:00:00 2021-08-09 00:00:00 Orders Only Doctor Unassigned, [place] [facility] 1.2.840.114 350.1.13.10 4.2.7.2.686 [id number] [facility] 2021-07-02 15:02:00 2021-07-02 21:52:00 Emergency Marlene Taylor S [facility] 1.2.840.114 350.1.13.10 4.2.7.2.686 [id number] [facility] 2021-07-02 14:36:00 2021-07-02 14:36:00 Emergency X [facility] ERT [id number] [facility] Results Test Description Test Time Test Comments Results Result Co mments Source [facility] GLUCOSE (AUTOMATED)2024-02-27 17:00:09* Test Item Value Reference Range Interpretation Comme nts POCT GLU (test code = 6946671416) 178 mg/dL 70-110 H Lab Interpretation (test cod e = 02161-8) Abnormal [facility] GLUCOSE (AUTOMATED)2024-02-27 12:26:11* Test Item Value Reference Range Interpretation Comme nts POCT GLU (test code = 0411243545) 149 mg/dL 70-110 H Lab Interpretation (test cod e = 52975-8) Abnormal [facility] GLUCOSE (AUTOMATED)2024-02-27 02:46:57* Test Item Value Reference Range Interpretation Comme nts POCT GLU (test code = 3471888807) 193 mg/dL 70-110 H Lab Interpretation (test cod e = 36573-0) Abnormal [facility] GLUCOSE (AUTOMATED)2024-02-26 21:33:27* Test Item Value Reference Range Interpretation Comme nts POCT GLU (test code = 8118195594) 167 mg/dL 70-110 H Lab Interpretation (test cod e = 72585-1) Abnormal [facility] GLUCOSE (AUTOMATED)2024-02-26 17:06:58* Test Item Value Reference Range Interpretation Comme nts POCT GLU (test code = 3035603563) 176 mg/dL 70-110 H Lab Interpretation (test cod e = 34734-7) Abnormal [facility] GLUCOSE (AUTOMATED)2024-02-26 12:35:03* Test Item Value Reference Range Interpretation Comme nts POCT GLU (test code = 3611098566) 167 mg/dL 70-110 H Lab Interpretation (test cod e = 90681-0) Abnormal [facility] GLUCOSE (AUTOMATED)2024-02-26 01:15:17* Test Item Value Reference Range Interpretation Comme nts POCT GLU (test code = 9300675907) 193 mg/dL 70-110 H Lab Interpretation (test cod e = 50817-0) Abnormal [facility] GLUCOSE (AUTOMATED)2024-02-25 21:10:00* Test Item Value Reference Range Interpretation Comme nts POCT GLU (test code = 2219782043) 202 mg/dL 70-110 H Lab Interpretation (test cod e = 28620-6) Abnormal [facility] GLUCOSE (AUTOMATED)2024-02-25 16:27:31* Test Item Value Reference Range Interpretation Comme nts POCT GLU (test code = 5029278054) 185 mg/dL 70-110 H Lab Interpretation (test cod e = 74027-7) Abnormal [facility] GLUCOSE (AUTOMATED)2024-02-25 14:21:04* Test Item Value Reference Range Interpretation Comme nts POCT GLU (test code = 1149446031) 244 mg/dL 70-110 H Lab Interpretation (test cod e = 52067-6) Abnormal [facility] GLUCOSE (AUTOMATED)2024-02-25 13:02:39* Test Item Value Reference Range Interpretation Comme nts POCT GLU (test code = 4526477606) 199 mg/dL 70-110 H Lab Interpretation (test cod e = 27183-5) Abnormal [facility] Metabolic Panel (NA, K, CL, CO2, GLUCOSE, BUN, CREATININE, CA)2024-02-25 11:08:17* Test Item Value Reference Range Interpretation Comme nts NA (test code = 8242793653) 132 mmol/L 135-145 L K (test code = 8691241394) 3.2 mmol/L 3.5-5.0 L CL (test code = 9682768808) 98 mmol/L 98-108 CO2 TOTAL (test code = 0730780491) 25 mmol/L 23-31 AGAP (test code = 0345773370) 9 2-16 BUN (test code = 1647648116) 5 mg/dL 7-23 L GLUCOSE (test code = 5591306304) 206 mg/dL 70-110 H CREATININE (test code = 2160-0) 0.83 mg/dL 0.60-1.25 CALCIUM (test code = 2586003626) 8.8 mg/dL 8.6-10.6 eGFR (test code = 00751-2) 105.3 mL/min/1.73m2 CKD-EPI eGFR (2020). Assuming creatinine has been stable day-to-day for at least three months, the eGFR indicates Category G1 (>= 90 mL/min/1.73 m2) Lab Interpretation (test code = 51598-3) Abnormal [facility] with [id number] 10:41:51* Test Item Value Reference Range Interpretation [...] 33.4 g/dL 31.2-35.0 RDW-SD (test code = 63594-5) 39.8 fL 38.5-51.6 RDW-CV (test code = 788-0) 12.5 % 12.1-15.4 PLT (test code = 777-3) 252 150-328 MPV (test code = 04946-3) 9.1 fL 9.8-13.0 L NRBC/100 WBC (test code = 7851373845) 0.0 0.0-10.0 NRBC x10^3 (test code = 5620928309) See_Comment [Automated messa ge] The system which generated this result transmitted reference range: 10*3/?L. The reference range was not used to interpret this result as normal/abnormal. GRAN MAT (NEUT) % (test code = 770-8) 54.8 % IMM GRAN % (test code = 8121468474) 0.20 % LYMPH % (test code = 736-9) 27.5 % MONO % (test code = 5905-5) 12.4 % EOS % (test code = 713-8) 4.5 % BASO % (test code = 706-2) 0.6 % GRAN MAT x10^3(ANC) (test code = 8883411948) 3.50 10*3/uL 1.99-6.95 IMM GRAN x10^3 (test code = 7284532395) 0.00-0.06 LYMPH x10^3 (test code = 731-0) 1.76 10*3/uL 1.09-3.23 MONO x10^3 (test code = 742-7) 0.79 10*3/uL 0.36-1.02 EOS x10^3 (test code = 711-2) 0.29 10*3/uL 0.06-0.53 BASO x10^3 (test code = 704-7) 0.04 10*3/uL 0.01-0.09 Lab Interpretation (test code = 69049-1) Abnormal [facility] GLUCOSE (AUTOMATED)2024-02-25 01:30:42* Test Item Value Reference Range Interpretation Comme nts POCT GLU (test code = 7241685613) 203 mg/dL 70-110 H Lab Interpretation (test cod e = 65568-1) Abnormal [facility] GLUCOSE (AUTOMATED)2024-02-24 21:33:19* Test Item Value Reference Range Interpretation Comme nts POCT GLU (test code = 3330890895) 198 mg/dL 70-110 H Lab Interpretation (test cod e = 11931-1) Abnormal [facility] GLUCOSE (AUTOMATED)2024-02-24 18:00:37* Test Item Value Reference Range Interpretation Comme nts POCT GLU (test code = 6091895299) 220 mg/dL 70-110 H Lab Interpretation (test cod e = 09120-6) [facility]normal [facility] Whole [id number] 15:27:25* Test Item Value Reference Range Interpretation Comme nts LACTIC ACID (test code = 0240324049) 1.62 mmol/L 0.50-2.20 Lab Interpretation (test cod e = 05197-1) Normal [facility] Center[facility]cosylated Hemoglobin (A1C)2024-02-24 15:25:42* Test Item Value Reference Range Interpretation Comme nts HGB A1C (test code = 4548-4) 11.5 % 4.0-5.7 H ZULEIMA (test code = ZULEIMA) Reference RangesNormal: <5.7%Prediabetes: 5.7 - 6.4%Diabetes: > 6.5% Lab Interpretation (test code = 06840-3) Abnormal [facility] CenterCT [facility]BD[facility]EN PEL[facility] W [id number] 13:02:45EXAM: CT ABDOMEN AND PELVIS WITH CONTRAST [...] TISSUES: No suspicious lytic or sclerotic bony lesions.[facility] CenterXR CHEST 1 [id number] 12:55:45EXAM: XR CHEST 1 VW COMPARISON: Chest radiograph 11/05/2022 HISTORY: weakness FINDINGS: Lungs: The lungs are clear. and well-expanded. No pleural abnormalities. Heart/Mediastinum: The cardiomediastinal silhouette is normal in sizeaccounting for technique. Bones: No osseous lesions are detected. The soft tissues appear normalUnCovenant Medical CenterN-Terminal Pro-Bnp 2024-02-24 08:34:21* Test Item Value Reference Range Interpretation Comme nts NT-proBNP (test code = 22130-5) 21 pg/mL <=125 Lab Interpretation (test cod e = 20524-9) Normal [facility] CenterTroponin [id number] 07:37:54* Test Item Value Reference Range Interpretation Comme nts TROPONIN I (test code = 6391272645) 0.005 ng/mL <=0.034 ZULEIMA (test code = [...] of biotin. Lab Interpretation (test code = 99392-9) Normal [facility] Center[facility] Panel 21 + Lactic [id number] 07:31:17* Test Item Value Reference Range Interpretation Comme nts PH (test code = 5531067607) 7.40 7.32-7.42 PCO2 SAKINA (test code = 9028699612) 45 41-51 PO2 SAKINA (test code = 6163313061) 33 25-40 HCO3 SAKINA (test code = 1183947392) 27 24-28 AC VBE(BEAKER) (test code = 9346709948) 1.7 mEq/L THB SAKINA (test code = 9052255518) 14.3 g/dL 13.5-18.0 %O2HB SAKINA (test code = 0033695175) 63.8 % 52.0-63.0 H %COHB SAKINA (test code = 6731652134) 0.4 % 0.0-1.5 %METHB SAKINA (test code = 6498186708) 0.0 % 0.4-1.5 L VOL%O2 SAKINA (test code = 5793447591) 12.8 % 6.0-12.0 H NA (test code = 6502734463) 133 mmol/L 135-145 L K+ (test code = 0855193196) 3.1 mmol/L 3.5-5.0 L AC CA IONZ (test code = 9288157219) 4.80 mg/dL 4.50-5.30 GLUCOSE (test code = 5944424228) 235 mg/dL 70-110 H LACTIC ACID (test code = 0831213233) 2.74 mmol/L 0.50-2.20 H Lab Interpretation (test cod e = 21662-9) Abnormal [facility] CenterMagnesium2024-03-27 07:26:35* Test Item Value Reference Range Interpretation Comme nts MAGNESIUM (test code = 2104904852) 2.0 mg/dL 1.7-2.4 Lab Interpretation (test cod e = 35098-8) Normal [facility] CenterComplete Metabolic Cjamm8317-10-83 07:26:15* Test Item Value Reference Range Interpretation Comme nts NA (test code = 2350988100) 132 mmol/L 135-145 L K (test code = 6827639724) 3.1 mmol/L 3.5-5.0 L CL (test code = 4845251799) 94 mmol/L 98-108 L CO2 TOTAL (test code = 2741745806) 26 mmol/L 23-31 AGAP (test code = 4334822361) 12 2-16 BUN (test code = 9885626126) 7 mg/dL 7-23 GLUCOSE (test code = 0853399699) 235 mg/dL 70-110 H CREATININE (test code = 2160-0) 1.06 mg/dL 0.60-1.25 TOTAL BILI (test code = 0198276777) 0.9 mg/dL 0.1-1.1 CALCIUM (test code = 1705867024) 9.5 mg/dL 8.6-10.6 T PROTEIN (test code = 0051088237) 7.7 g/dL 6.3-8.2 ALBUMIN (test code = 1153490307) 4.1 g/dL 3.5-5.0 ALK PHOS (test code = 7855122441) 113 U/L 34-122 ALTv (test code = 1742-6) 171 U/L 5-50 H AST(SGOT) (test code = 2404550892) 102 U/L 13-40 H eGFR (test code = 56735-7) 84.4 mL/min/1.73m2 CKD-EPI eGFR (2020). Assuming creatinine has been stable day-to-day for at least three months, the eGFR indicates Category G2 (60 - 89 mL/min/1.73 m2) Lab Interpretation (test code = 11183-8) Abnormal [facility] CenterLipase, [id number] 07:26:15* Test Item Value Reference Range Interpretation Comme nts LIPASE (test code = 0796451508) 82 U/L 0-220 Lab Interpretation (test cod e = 58175-2) Normal [facility] CenterCBC with Ibzgkuoarsrn4334-88-34 07:10:13* Test Item Value Reference Range Interpretation [...] 33.6 g/dL 31.2-35.0 RDW-SD (test code = 18218-3) 39.2 fL 38.5-51.6 RDW-CV (test code = 788-0) 12.7 % 12.1-15.4 PLT (test code = 777-3) 363 150-328 H MPV (test code = 01200-6) 9.2 fL 9.8-13.0 L NRBC/100 WBC (test code = 9960743366) 0.0 0.0-10.0 NRBC x10^3 (test code = 1853490897) See_Comment [Automated messa ge] The system which generated this result transmitted reference range: 10*3/?L. The reference range was not used to interpret this result as normal/abnormal. GRAN MAT (NEUT) % (test code = 770-8) 46.3 % IMM GRAN % (test code = 5359812005) 0.30 % LYMPH % (test code = 736-9) 38.2 % MONO % (test code = 5905-5) 10.5 % EOS % (test code = 713-8) 3.9 % BASO % (test code = 706-2) 0.8 % GRAN MAT x10^3(ANC) (test code = 6226038706) 3.49 10*3/uL 1.99-6.95 IMM GRAN x10^3 (test code = 8854188295) 0.00-0.06 LYMPH x10^3 (test code = 731-0) 2.88 10*3/uL 1.09-3.23 MONO x10^3 (test code = 742-7) 0.79 10*3/uL 0.36-1.02 EOS x10^3 (test code = 711-2) 0.29 10*3/uL 0.06-0.53 BASO x10^3 (test code = 704-7) 0.06 10*3/uL 0.01-0.09 Lab Interpretation (test code = 80260-5) Abnormal [facility] CenterPOCT [facility]SE (AUTOMATED)2024-02-24 06:11:01* Test Item Value Reference Range Interpretation Comme nts POCT GLU (test code = 0149189161) 227 mg/dL 70-110 H Lab Interpretation (test cod e = 04352-9) Abnormal [facility] CenterGLUBED2023-12-19 16:12:00* Test Item Value Reference Range Interpretation Comme nts GLUBED (test code = GLUBED) 237 mg/dL 74-106 H Performed by cer tified gimp buttonhole 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 at [facility] [id number] 11:26:00* Test Item Value Reference Range Interpretation Comme nts GLUBED (test code = GLUBED) 259 mg/dL 74-106 H Performed by cer tified gimp buttonhole 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 at [facility] [id number] 06:28:00* Test Item Value Reference Range Interpretation Comme nts GLUBED (test code = GLUBED) 191 mg/dL 74-106 H Performed by cer tified gimp buttonhole 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 at [facility] [id number] 05:29:00* Test Item Value Reference Range Interpretation Comme nts GLUBED (test code = GLUBED) 212 mg/dL 74-106 H Performed by cer tified gimp buttonhole 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 at [facility] QCBAHO4819-82-89 00:12:00* Test Item Value Reference Range Interpretation Comme nts GLUBED (test code = GLUBED) 237 mg/dL 74-106 H Performed by cer tified gimp buttonhole 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 at [facility] DKPBMA3404-77-04 18:02:00* Test Item Value Reference Range Interpretation Comme nts GLUBED (test code = GLUBED) 261 mg/dL 74-106 H Performed by cer tified gimp buttonhole 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 at [facility] SYZBKT0012-09-26 12:13:00* Test Item Value Reference Range Interpretation Comme nts GLUBED (test code = GLUBED) 212 mg/dL 74-106 H Performed by cer tified gimp buttonhole 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 at [facility] [id number] 06:14:00* Test Item Value Reference Range Interpretation Comme nts GLUBED (test code = GLUBED) 259 mg/dL 74-106 H Performed by cer tified gimp buttonhole 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 at [facility] BASIC METABOLIC GZBHE1149-80-90 05:34:00* Test Item Value Reference Range Interpretation [...] code = CA) 8.6 mg/dL 8.5-10.1 N [id number] 00:21:00* Test Item Value Reference Range Interpretation Comme nts GLUBED (test code = GLUBED) 357 mg/dL 74-106 H Performed by cer tified gimp buttonhole 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 at [facility] COMPREHENSIVE METABOLIC [id number] 22:24:00* Test Item Value Reference Range Interpretation [...] reference range due to change in reagent. [id number] 22:24:00* Test Item Value Reference Range Interpretation Comme nts PHOSPHORUS (test code = PHOS) 1.8 mg/dL 2.5-4.9 L [id number] 22:24:00* Test Item Value Reference Range Interpretation Comme nts MAGNESIUM (test code = MAG) 1.9 mg/dL 1.8-2.4 N [id number] 17:01:00* Test Item Value Reference Range Interpretation Comme nts GLUBED (test code = GLUBED) 299 mg/dL 74-106 H Performed by cer tified gimp buttonhole 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 at [facility] [id number] 12:14:00* Test Item Value Reference Range Interpretation Comme nts GLUBED (test code = GLUBED) 335 mg/dL 74-106 H Performed by cer tified gimp buttonhole 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 at [facility] [id number] 07:59:00* Test Item Value Reference Range Interpretation Comme nts GLUBED (test code = GLUBED) 329 mg/dL 74-106 H Performed by cer karen gimp buttonhole 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 at [facility] [employer]PREH[employer]ABOL[employer] [id number] 06:56:00* Test Item Value Reference Range Interpretation [...] reference range due to change in reagent. [id number] 06:56:00* Test Item Value Reference Range Interpretation Comme nts PHOSPHORUS (test code = PHOS) 2.4 mg/dL 2.5-4.9 L [id number] 06:56:00* Test Item Value Reference Range Interpretation Comme nts MAGNESIUM (test code = MAG) 1.3 mg/dL 1.8-2.4 L CBC W/AUTO [id number] 06:24:00* Test Item Value Reference Range Interpretation [...] code = NRBC#) 0.00 K/mm3 0.0-0.1 N [id number] 05:49:00* Test Item Value Reference Range Interpretation Comme nts GLUBED (test code = GLUBED) 317 mg/dL 74-106 H Performed by cer tified gimp buttonhole 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 at [facility] [id number] 23:52:00* Test Item Value Reference Range Interpretation Comme nts GLUBED (test code = GLUBED) 364 mg/dL 74-106 H Performed by cer tified gimp buttonhole 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 at [facility] [employer]PREH[employer]ABOL[employer] [id number] 15:47:00* Test Item Value Reference Range Interpretation [...] reference range due to change in reagent. [id number] 15:47:00* Test Item Value Reference Range Interpretation Comme nts PHOSPHORUS (test code = PHOS) 1.9 mg/dL 2.5-4.9 L [id number] 15:47:00* Test Item Value Reference Range Interpretation Comme nts MAGNESIUM (test code = MAG) 1.1 mg/dL 1.8-2.4 L [id number] 12:07:00* Test Item Value Reference Range Interpretation Comme nts GLUBED (test code = GLUBED) 375 mg/dL 74-106 H Performed by cer karen gimp buttonhole 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 at [facility] [employer] [id number] 06:42:00* Test Item Value Reference Range Interpretation [...] reference range due to change in reagent. [id number] 06:42:00* Test Item Value Reference Range Interpretation Comme nts PHOSPHORUS (test code = PHOS) 2.1 mg/dL 2.5-4.9 L [id number] 06:42:00* Test Item Value Reference Range Interpretation Comme nts MAGNESIUM (test code = MAG) 1.4 mg/dL 1.8-2.4 L CBC W/AUTO [id number] 06:15:00* Test Item Value Reference Range Interpretation [...] code = NRBC#) 0.00 K/mm3 0.0-0.1 N [id number] 06:04:00* Test Item Value Reference Range Interpretation Comme nts GLUBED (test code = GLUBED) 335 mg/dL 74-106 H Performed by cer tified gimp buttonhole 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 at [facility] [id number] 23:24:00* Test Item Value Reference Range Interpretation Comme nts GLUBED (test code = GLUBED) 300 mg/dL 74-106 H Performed by cer tified gimp buttonhole 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 at [facility] [id number] 17:17:00* Test Item Value Reference Range Interpretation Comme nts GLUBED (test code = GLUBED) 248 mg/dL 74-106 H Performed by cer tified gimp buttonhole 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 at [facility] HEPATIC FUNCTION [id number] 11:13:00* Test Item Value Reference Range Interpretation [...] reference range due to change in reagent. [id number] 11:13:00* Test Item Value Reference Range Interpretation Comme nts PHOSPHORUS (test code = PHOS) 4.1 mg/dL 2.5-4.9 N [id number] 11:13:00* Test Item Value Reference Range Interpretation Comme nts MAGNESIUM (test code = MAG) 1.3 mg/dL 1.8-2.4 L [id number] 11:06:00* Test Item Value Reference Range Interpretation Comme nts GLUBED (test code = GLUBED) 262 mg/dL 74-106 H Performed by cer tified gimp buttonhole 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 at [facility] [id number] 07:45:00* Test Item Value Reference Range Interpretation Comme nts GLUBED (test code = GLUBED) 231 mg/dL 74-106 H Performed by cer tified gimp buttonhole 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 at [facility] BASIC METABOLIC [id number] 06:02:00* Test Item Value Reference Range Interpretation [...] CA) 9.1 mg/dL 8.5-10.1 N CBC W/AUTO [id number] 05:50:00* Test Item Value Reference Range Interpretation [...] code = NRBC#) 0.00 K/mm3 0.0-0.1 N [id number] 05:45:00* Test Item Value Reference Range Interpretation Comme nts GLUBED (test code = GLUBED) 169 mg/dL 74-106 H Performed by cer tified gimp buttonhole 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 at [facility] [id number] 23:38:00* Test Item Value Reference Range Interpretation Comme nts GLUBED (test code = GLUBED) 164 mg/dL 74-106 H Performed by cer tified gimp buttonhole 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 at [facility] [id number] 16:06:00* Test Item Value Reference Range Interpretation Comme nts GLUBED (test code = GLUBED) 168 mg/dL 74-106 H Performed by cer tified gimp buttonhole 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 at [facility] [id number] 11:36:00* Test Item Value Reference Range Interpretation Comme nts GLUBED (test code = GLUBED) 168 mg/dL 74-106 H Performed by cer tified gimp buttonhole 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 at [facility] COMPREHENSIVE METABOLIC [id number] 10:07:00* Test Item Value Reference Range Interpretation [...] reference range due to change in reagent. [id number] 10:07:00* Test Item Value Reference Range Interpretation Comme nts PHOSPHORUS (test code = PHOS) 3.3 mg/dL 2.5-4.9 N [id number] 10:07:00* Test Item Value Reference Range Interpretation Comme nts MAGNESIUM (test code = MAG) 1.3 mg/dL 1.8-2.4 L CBC W/AUTO [id number] 09:27:00* Test Item Value Reference Range Interpretation [...] REQUIRED (test c ode = MDIFF) NO [id number] 08:20:00* Test Item Value Reference Range Interpretation Comme nts GLUBED (test code = GLUBED) 169 mg/dL 74-106 H Performed by cer tified gimp buttonhole 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 at [facility] [id number] 05:18:00* Test Item Value Reference Range Interpretation Comme nts GLUBED (test code = GLUBED) 158 mg/dL 74-106 H Performed by cer tified gimp buttonhole 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 at [facility] CBC W/AUTO [id number] 01:54:00* Test Item Value Reference Range Interpretation [...] NRBC#) 0.00 K/mm3 0.0-0.1 N COMPREHENSIVE METABOLIC [id number] 01:48:00* Test Item Value Reference Range Interpretation [...] reference range due to change in reagent. [id number] 01:48:00* Test Item Value Reference Range Interpretation Comme nts PHOSPHORUS (test code = PHOS) 3.3 mg/dL 2.5-4.9 N [id number] 01:48:00* Test Item Value Reference Range Interpretation Comme nts MAGNESIUM (test code = MAG) 1.4 mg/dL 1.8-2.4 L [id number] 23:59:00* Test Item Value Reference Range Interpretation Comme nts GLUBED (test code = GLUBED) 169 mg/dL 74-106 H Performed by cer tified gimp buttonhole 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 at [facility] - CT CHEST W/O [id number] 22:12:00 [facility]Name: LEANDRO LEHMAN : 1970 Sex: M Name: LEANDRO LEHMAN [facility] : 1970 Age/S: 52 / M [address] Unit #: [id number] Loc: [place] [address] Phys: Danielle Oh COUTURE DRESSMAKER Acct: [id number] Dis Date: Status: ADM IN PHONE #: [phone] Exam Date: 11/11/20232204 FAX #: [phone] Reason: eval for hypoxiaEXAMS: CPT CODE: [id number] CT CHEST W/O CONTRAST 38611 Clinical Indication: SOB; Comparison: None TECHNIQUE: Sequential [...] 1 Signed Report (CONTINUED) Name: LEANDRO LEHMAN [facility] : 1970 Age/S: 52 / M Lesley Gerard Unit #: [id number] Loc: [place] [address] Phys: Danielle Oh NP Acct: [id number] Dis Date: Status: ADM IN PHONE #: [phone] Exam Date: 11/11/20232204 FAX #: [phone] Reason: eval for hypoxia EXAMS: CPT CODE: [id number] CT CHEST W/O CONTRAST 53834 (Continued) at 2212 Reported and signed by: [...] mg/dL 74-106 H Performed by randy jones gimp buttonhole 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 at [facility] - XR CHEST 1 [id number] 14:49:00 [facility]Name: LEANDRO LEHMAN : 1970 Sex: M FAX: Meryl Rey MD [place]: St: [facility] FAX: Lindsey Coyle FAX: Sang Helms MD [phone] FAX: Davion Duckworth MD Name: LEANDRO LEHMAN [facility] : 1970 Age/S: 52/M [address] [facility] Unit #: [id number] Loc: [address] [address] Phys: Meryl Rey MD Acct: [id number] Dis Date: Status: ADM IN PHONE #: [phone] Exam Date: 11/11/2023 1407 FAX #: [phone] Reason: RESPIRATORY FAILURE EXAMS: CPT CODE: [id number] XR CHEST 1 V 61612 REASON FOR EXAM: RESPIRATORY FAILURE Exam Order Date: 11/11/2023 1:41 PM Ordering M.D.: Meryl Rey MD PROCEDURE: - XR CHEST 1 V COMPARISON: Chest x-ray the previous morning FINDINGS: The lungs are hypoinflated but clear. There is no pleural effusion or pneumothorax. Pulmonary vascularity is within normal limits. Cardiomediastinal silhouette is normal in size for technique. The mediastinal contours are within normal limits. Previous ly seen right IJ central line has been removed. Degenerative changes are present in the thoracic spine. The visualized upper abdomen is within normal limits. IMPRESSION: Lung volumes are diminished however no airspace disease is seen. Location: [facility] at 1449 Reported and signed by: Jamie Aguilar MD CC: Meryl Rey MD; Lindsey Coyle OMD; Sang Rey MD; Davion Duckworth MD Technologist: Jessica Smith RT(R); Esther Pearl RT(R) Trnscrd Date/Time/By: 11/11/2023 (6122) : By: [email or web address] Orig Print D/T: S: 11/11/2023 (3269) PAGE1 Signed Report [id number] 11:42:00* Test Item Value Reference Range Interpretation Comme nts GLUBED (test code = GLUBED) 194 mg/dL 74-106 H Performed by cer tified gimp buttonhole 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 at [facility] [id number] 05:25:00* Test Item Value Reference Range Interpretation Comme nts GLUBED (test code = GLUBED) 151 mg/dL 74-106 H Performed by cer tified gimp buttonhole 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 at [facility] COMPREHENSIVE METABOLIC [id number] 01:31:00* Test Item Value Reference Range Interpretation [...] reference range due to change in reagent. [id number] 01:31:00* Test Item Value Reference Range Interpretation Comme nts PHOSPHORUS (test code = PHOS) 3.5 mg/dL 2.5-4.9 N [id number] 01:31:00* Test Item Value Reference Range Interpretation Comme nts MAGNESIUM (test code = MAG) 1.7 mg/dL 1.8-2.4 L CBC W/AUTO [id number] 01:08:00* Test Item Value Reference Range Interpretation [...] code = NRBC#) 0.00 K/mm3 0.0-0.1 N [id number] 00:02:00* Test Item Value Reference Range Interpretation Comme nts GLUBED (test code = GLUBED) 176 mg/dL 74-106 H Performed by cer tified gimp buttonhole 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 at [facility] [id number] 18:44:00* Test Item Value Reference Range Interpretation [...] URL. These results were obtained using Siemens [employer]ell[employer] IM TnIHreagent. Results from different methodologies should not becompared to one another as quantitative results and URLs mayvary by method. NOTE: A Positive Bias may occur for patients taking Biotin Supplements.NOTE: Current test methodology (pg/mL) units differ from prior test methodology (ng/mL) by a factor of 1000. [id number] 17:04:00* Test Item Value Reference Range Interpretation Comme nts GLUBED (test code = GLUBED) 158 mg/dL 74-106 H Performed by cer karen gimp buttonhole 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 at [facility] INFLUENZA A B [id number] 16:12:00* Test Item Value Reference Range Interpretation Comme nts INFLUENZA A POC (test code = INFLAAG) Negative Negative INFLUENZA B POC (test code = INFLBAG) Negative Negative - CT ABD PELVIS W/O [id number] 16:12:00 [facility])Name: LEANDRO LEHMAN : 1970 Sex: M Name: LEANDRO LEHMAN [facility] : 1970 Age/S: 52 / M [address] Unit#: [id number] Loc: [place] [address] Phys: Meryl Rey MD Acct: [id number] Dis Date: Status: ADM IN PHONE #: [phone] Exam Date: 11/10/2023 0326 FAX #: [phone] Reason: ABDOMINAL PAIN/VOMETING EXAMS: CPT CODE: [id number] CT ABD PELVIS W/O CONT 84128 REASON FOR EXAM: ABDOMINAL PAIN/VOMETING EXAM ORDER DATE: 11/10/2023 1:57 PM Ordering MShruthi: Meryl Rey MD PROCEDURE: Axial CT images [...] 1 Signed Report (CONTINUED) Name: LEANDRO LEHMAN [facility] : 1970 Age/S: 52 / M [address] [facility] Unit #: [id number] Loc: [place] [address] Phys: Meryl Rey MD Acct: [id number] Dis Date: Status: ADM IN PHONE #: [phone] Exam Date: 11/10/2023 1525 FAX #: [phone] Reason: ABDOMINAL PAIN/VOMETING EXAMS: CPT CODE: [id number] CT ABD PELVIS W/O CONT 98466 (Continued) IMPRESSION: No acute intra-abdominal findings. Location: [facility] at 1612 Reported andsigned by: Jamie Aguilar MD CC: Meryl Rey MD; Jeremias Ibarra MD; Sang Rey MD; Pete Duckworth Technologist:Renay Aleman RT(R),CT CTDI: DLP: Trnscb Date/Time: 11/10/2023 (1612) t.PONCE.RR31 Orig Print D/T: S: 11/10/2023 (2050) PAGE 2 Signed ReportB-TYPE NATRIURETIC [id number] 16:07:00* Test Item Value Reference Range Interpretation Comme nts B-TYPE NATRIURETIC PEPTIDE (test code = BNP) 19.6 pgram/mL 0-100 N - CT HEAD/BRAIN W/O [id number] 16:07:00 [facility]Name: LEANDRO LEHMAN : 1970 Sex: M Name: LEANDRO LEHMAN [facility] : 1970 Age/S: 52 / M [address] [facility] Unit #: [id number] Loc: [place] [address] Phys: Meryl Rey MD Acct: [id number] Dis Date: Status: ADM IN PHONE #: [phone] Exam Date: 11/10/2023 1526 FAX #: [phone] Reason: S/P FALL EXAMS: CPT CODE: [id number] CT HEAD/BRAIN W/O CONT 38489 HISTORY: S/P FALL TECHNIQUE: Noncontrast 2.5 mm [...] are unremarkable. IMPRESSION: Negative CT head. Location: [facility] at 1607 Reported and signed by: Jamie Aguilar MD CC: Meryl Rey MD; Jeremias Ibarra MD; Sang Rey MD; Davion Duckworth MD Technologist:Renay Aleman RT(R),CT CTDI: DLP: Trnscb Date/Time: 11/10/2023 (160) t.SDR.RR31 Orig Print D/T: S: 11/10/2023 (7038) PAGE 1 Signed [id number] 15:47:00* Test Item Value Reference Range Interpretation [...] URL. These results were obtained using Siemens [employer] IM TnIHreagent. Results from different methodologies should not becompared to one another as quantitative results and URLs mayvary by method. NOTE: A Positive Bias may occur for patients taking Biotin Supplements.NOTE: Current test methodology (pg/mL) units differ from prior test methodology (ng/mL) by a factor of 1000. ARTERIAL BLOOD [id number] 14:20:00* Test Item Value Reference Range Interpretation [...] Results called to and read back by Esperanza 14:20 - 11/10/2023; by LS METHEMOGLOBIN (test code = METHGB) 0.6 % 0.0-1.50 N O2 CONTENT (test code = O2CT) 16.7 % vol 18.0-22.0 L - XR ABDOMEN AP 1 [id number] 14:19:00 [facility]Name: LEANDRO LEHMAN : 1970 Sex: M FAX: Meryl Rey MD [place]: St: [facility] FAX: Lupe Boo MD [phone] FAX: Sang Helms MD [phone] FAX: Davion Duckworth MD Name: LEANDRO LEHMAN [facility] : 1970 Age/S: 52/M [address] [facility] Unit #: [id number] Loc: [address] [address] Phys: Meryl Rey MD Acct: [id number] Date: Status: ADM IN PHONE #: [phone] Exam Date: 11/10/2023 1345 FAX #: [phone] Reason: NAUSEA/VOMETING EXAMS: CPT CODE: [id number] XR ABDOMEN AP 1 V 43724 HISTORY: NAUSEA/VOMETING PROCEDURE: - XR ABDOMEN AP 1 V COMPARISON: None FINDINGS: Nonobstructive bowel gas pattern. No significant stool burden. No intra-abdominal mass effect. No abnormal calcifications are observed. Visualizedosseous structures are intact. Visualized thorax is within normal limits. IMPRESSION: No radiographic evidence of acute intra-abdominal process. Location: [facility] at 1419 Reported and signed by: Jamie Aguilar MD CC: Meryl Rey MD; Lupe Bailon MD; Sang Rey MD; Davion Duckworth MD Technologist: Catehrine Lorenzo RT(R) Trnscrd Date/Time/By: 11/10/2023 (5222) : By: MatthewRR31 Orig Print D/T: S: 11/10/2023 (5042) PAGE 1 Signed ReportURINALYSIS [id number] 12:26:00* Test Item Value Reference Range Interpretation Comme nts UA COLOR (test code = COLU) Light-Yellow YELLOW UA APPEARANCE (test code = APPU) CLEAR CLEAR IS THE SAMPLE FROM ER OR L&D?N IF THE ANSWER IS NO,PLEASE DOCUMENT TWO RN SIGNATURES HERE- [id number], [id number] 11/10/23 1226 UA GLUCOSE DIPSTICK (test code [...] #/LPF FEW Urine Source? Clean CatchCOMPREHENSIVE METABOLIC [id number] 12:03:00* Test Item Value Reference Range Interpretation [...] change in reagent. - XR CHEST 1 [id number] 11:57:00 [facility])Name: LEANDRO LEHMAN : 1970 Sex: M FAX: Meryl Rey MD [place]: St: [facility] FAX: Lupe Boo MD [phone] FAX: Sang Helms MD [phone] FAX: Davion Duckworth MD Name: LEANDRO LEHMAN [facility] : 1970 Age/S: 52/M [address] [facility] Unit #: [id number] Loc: [address] [place] [address] Phys: Meryl Rey MD Acct: [id number] Date: Status: ADM IN PHONE #: [phone] Exam Date: 11/10/2023 1140 FAX #: [phone] Reason: respiratory failure EXAMS: CPT CODE: [id number] XR CHEST 1 V 21762 HISTORY: Respiratory failure. COMPARISON: Chest x-ray from September 24, 2022. Location: [facility]. Right jugular catheter with the tip projected over the SVC. Patchy left interstitial infiltrate. No effusion or congestion. Mild cardiomegaly. IMPRESSION: Patchy left interstitial infiltrate. at 1157 Reported and signed by: Arnaud Duggan M.D. CC: Meryl Rey MD; Yemi Bailon MD; Sang Rey MD; Davion Duckworth MD Technologist: Mauricio KING(R) Trnsdrd Date/Time/By: 11/10/2023 (4889) : By: [email or web address] Orig Print D/T: S: 11/10/2023 (3201) PAGE 1 Signed ReportLACTIC [id number] 11:54:00* Test Item Value Reference Range Interpretation Comme nts LACTIC ACID (test code = LACT) 0.8 mmol/L 0.4-1.9 N PROTHROMBIN [id number] 11:53:00* Test Item Value Reference Range Interpretation [...] (2.5-3.5) IS PATIENT ON ANTICOAGULANTS? NCBC W/AUTO [id number] 11:51:00* Test Item Value Reference Range Interpretation [...] NRBC#) 0.00 K/mm3 0.0-0.1 N REAGENT STRIP/BLOOD [id number] 00:00:00* Test Item Value Reference Range Interpretation Comme nts BLOOD SUGAR (test code = 463949) 263 mg/dL 65-99 A Lab Interpretation (test cod e = 35254-6) Abnormal Maisha Seybold - ExternalTELERETINAL DIABETIC [id number] 15:16:00* Test Item Value Reference Range Interpretation Comme nts IMP (test code = IMP) 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 PlanRepeat diabetic retinopathy screening in 1 year Lab Interpretation (test code = 63886-4) [facility] ExternalPO[facility] GLUCOSE (AUTOMATED)2022-11-12 17:36:05* Test Item Value Reference Range Interpretation Comme nts POCT GLU (test code = 7094714682) 186 mg/dL 70-110 H Lab Interpretation (test cod e = 63225-7) Abnormal [facility] GLUCOSE (AUTOMATED)2022-11-12 14:01:05* Test Item Value Reference Range Interpretation Comme nts POCT GLU (test code = 6267001430) 143 mg/dL 70-110 H Lab Interpretation (test cod e = 80839-7) Abnormal [facility] GLUCOSE (AUTOMATED)2022-11-12 02:11:38* Test Item Value Reference Range Interpretation Comme nts POCT GLU (test code = 6374450808) 185 mg/dL 70-110 H Lab Interpretation (test cod e = 17235-6) Abnormal [facility]2022-[facility]-11 22:21:02* Test Item Value Reference Range Interpretation Comme nts POCT GLU (test code = 4719417506) 153 mg/dL 70-110 H Lab Interpretation (test cod e = 10539-9) Abnormal [facility]AUTOMATED)2022-11-11 17:34:44* Test Item Value Reference Range Interpretation Comme nts POCT GLU (test code = 9971866400) 158 mg/dL 70-110 H Lab Interpretation (test cod e = 10283-1) Abnormal [facility]2022-11-11 13:54:40* Test Item Value Reference Range Interpretation Comme nts POCT GLU (test code = 6591791511) 145 mg/dL 70-110 H Lab Interpretation (test cod e = 06943-3) Abnormal [facility] GLUCOSE (AUTOMATED)2022-11-11 02:46:38* Test Item Value Reference Range Interpretation Comme nts POCT GLU (test code = 1661459995) 230 mg/dL 70-110 H Lab Interpretation (test cod e = 15001-8) Abnormal [facility]2022-11-10 22:41:53* Test Item Value Reference Range Interpretation Comme nts POCT GLU (test code = 1478941468) 161 mg/dL 70-110 H Lab Interpretation (test cod e = 33347-6) Abnormal [facility]2022-11-10 22:09:00* Test Item Value Reference Range Interpretation Comme nts POCT GLU (test code = 1042529067) 140 mg/dL 70-110 H Lab Interpretation (test cod e = 03082-2) Abnormal [facility])2022-11-10 14:40:30* Test Item Value Reference Range Interpretation Comme nts POCT GLU (test code = 3014493489) 140 mg/dL 70-110 H Lab Interpretation (test cod e = 47428-9) Abnormal [facility] GLUCOSE (AUTOMATED)2022-11-10 13:39:06* Test Item Value Reference Range Interpretation Comme nts POCT GLU (test code = 2447146817) 129 mg/dL 70-110 H Lab Interpretation (test cod e = 33798-7) Abnormal [facility])2022-11-10 03:12:17* Test Item Value Reference Range Interpretation Comme nts POCT GLU (test code = 3129676019) 142 mg/dL 70-110 H Lab Interpretation (test cod e = 12342-8) Abnormal [facility])2022-11-07 22:01:53* Test Item Value Reference Range Interpretation Comme nts POCT GLU (test code = 0906604822) 150 mg/dL 70-110 H Lab Interpretation (test cod e = 04889-7) Abnormal [facility])2022-11-07 17:30:01* Test Item Value Reference Range Interpretation Comme nts POCT GLU (test code = 1417096504) 178 mg/dL 70-110 H Lab Interpretation (test cod e = 35246-2) Abnormal [facility])2022-11-07 14:17:47* Test Item Value Reference Range Interpretation Comme nts POCT GLU (test code = 4677692252) 156 mg/dL 70-110 H Lab Interpretation (test cod e = 55527-6) [facility] 03:33:30* Test Item Value Reference Range Interpretation Comme [facility] POCT GLU (test code = 1103800099) 153 mg/dL 70-110 H Lab Interpretation (test cod e = 32455-9) Abnormal [facility] GLUCOSE (AUTOMATED)2022-11-06 22:57:40* Test Item Value Reference Range Interpretation Comme [facility] POCT GLU (test code = 6549435997) 139 mg/dL 70-110 H Lab Interpretation (test cod e = 22135-6) Abnormal [facility] [id number]-[id number] 22:26:29* Test Item Value Reference Range Interpretation Comme nts BOH (test code = 1249081481) 3.0 mmol/L ZULEIMA (test code = ZULEIMA) Normal Ranges: ? ? Nonfasting ? Less than 0.1 mmol/L ? ? Overnight Fast ? ? ? Less than 0.4 mmol/L ? ? Fasting (1-2 weeks) ?6-8 mmol/L Test developed and characteristics determined by [facility] Laboratory Services. [facility] Metabolic Panel (Na, K, Cl, CO2, Glucose, BUN, Creatinine, Ca)2022-11-06 21:22:03* Test Item Value Reference Range Interpretation Comme [facility] NA (test code = 1864495147) 136 mmol/L 135-145 K (test code = 3569679337) 3.9 mmol/L 3.5-5.0 Slight hemolysis CL (test code = 7054565884) 109 mmol/L 98-108 H CO2 TOTAL (test code = 9101858873) 15 mmol/L 23-31 L AGAP (test code = 5610476571) 2-16 BUN (test code = 1477252003) 7-23 L Slight hemolysis GLUCOSE (test code = 1028209649) 171 mg/dL 70-110 H CREATININE (test code = 6682863722) 0.49 mg/dL 0.60-1.25 L CALCIUM (test code = 0090354557) 7.9 mg/dL 8.6-10.6 L eGFR (test code = 3342947558) mL/min/1.73m2 ZULEIMA (test code = ZULEIMA) Association [...] imaging tests). Lab Interpretation (test code = 58327-1) [facility]normal [facility]2022-11-06 16:16:50* Test Item Value Reference Range Interpretation Comme [facility] POCT GLU (test code = 7359645375) 163 mg/dL 70-110 H Lab Interpretation (test cod e = 34499-4) [facility] (Na, K, Cl, CO2, Glucose, BUN, Creatinine, Ca)2022-11-06 12:51:08* Test Item Value Reference Range Interpretation Comme [facility] NA (test code = 6454209124) 135 mmol/L 135-145 K (test code = 7384022005) 4.7 mmol/L 3.5-5.0 Slight hemolysis CL (test code = 1428845222) 110 mmol/L 98-108 H CO2 TOTAL (test code = 6373643282) 12 mmol/L 23-31 L AGAP (test code = 3704887030) 2-16 BUN (test code = 0698530417) 3 mg/dL 7-23 L Slight hemolysis GLUCOSE (test code = 1545588891) 152 mg/dL 70-110 H CREATININE (test code = 7217433046) 0.62 mg/dL 0.60-1.25 CALCIUM (test code = 6082315182) 8.3 mg/dL 8.6-10.6 L eGFR (test code = 7840071098) mL/min/1.73m2 ZULEIMA (test code = ZULEIMA) Association [...] imaging tests). Lab Interpretation (test code = 49004-0) Abnormal [facility] GLUCOSE (AUTOMATED)2022-11-06 11:27:27* Test Item Value Reference Range Interpretation Comme nts POCT GLU (test code = 6927706192) 139 mg/dL 70-110 H Lab Interpretation (test cod e = 69836-3) Abnormal [facility] GLUCOSE (AUTOMATED)2022-11-06 09:28:37* Test Item Value Reference Range Interpretation Comme nts POCT GLU (test code = 4241560641) 137 mg/dL 70-110 H Lab Interpretation (test cod e = 32673-9) Abnormal [facility] GLUCOSE(AGE >30DAYS)2022-11-06 08:15:00* Test Item Value Reference Range Interpretation Comme nts POCT Glu (age>30days) (test code = 3342) 107 mg/dL 70-110 Lab Interpretation (test cod e = 51833-9) Normal [facility] GLUCOSE (AUTOMATED)2022-11-06 06:58:20* Test Item Value Reference Range Interpretation Comme nts POCT GLU (test code = 0093324620) 96 mg/dL 70-110 Lab Interpretation (test cod e = 70392-6) Normal [facility] GLUCOSE(AGE >30DAYS)2022-11-06 06:58:00* Test Item Value Reference Range Interpretation Comme nts POCT Glu (age>30days) (test code = 3342) 96 mg/dL 70-110 Lab Interpretation (test cod e = 64009-4) [id number]:12:24* Test Item Value Reference Range Interpretation Comments TROPONIN I (test code = 3513589077) 0.003 ng/mL See_Comment [Automated message] The system [...] of biotin. Lab Interpretation (test code = 77017-9) [id number] 05:09:22* Test Item Value Reference Range Interpretation Comme nts NT-proBNP (test code = 5934490797) 58 pg/mL See_Comment [Automated message] The system which generated this result transmitted reference range: <=125. The reference range was not used to interpret this result as normal/abnormal. ZULEIMA (test code = ZULEIMA) Biotin has been reported to cause a negative bias, interpret results relative to patient's use of biotin. Lab Interpretation (test code = 09219-4) [facility] (64543)2022-11-06 05:00:43* Test Item Value Reference Range Interpretation Comme nts NA (test code = 6691983412) 135 mmol/L 135-145 K (test code = 4672313038) 4.3 mmol/L 3.5-5.0 CL (test code = 1307827202) 106 mmol/L 98-108 CO2 TOTAL (test code = 8733826782) 11 mmol/L 23-31 L AGAP (test code = 9925643919) 2-16 H BUN (test code = 1101839810) 3 mg/dL 7-23 L GLUCOSE (test code = 7270418374) 129 mg/dL 70-110 H CREATININE (test code = 9947918578) 0.71 mg/dL 0.60-1.25 TOTAL BILI (test code = 9642182302) 1.0 mg/dL 0.1-1.1 CALCIUM (test code = 1189847135) 8.7 mg/dL 8.6-10.6 T PROTEIN (test code = 5042110304) 6.6 g/dL 6.3-8.2 ALBUMIN (test code = 8806103982) 3.9 g/dL 3.5-5.0 ALK PHOS (test code = 1052183802) 85 U/L 34-122 ALTv (test code = 1742-6) 125 U/L 5-50 H AST(SGOT) (test code = 9986317053) 39 U/L 13-40 eGFR (test code = 1428610349) mL/min/1.73m2 ZULEIMA (test code = ZULEIMA) Association [...] imaging tests). Lab Interpretation (test code = 36955-4) [facility] 05:00:43* Test Item Value Reference Range Interpretation Comme nts LIPASE (test code = 5025537861) 105 U/L 0-220 Lab Interpretation (test cod e = 75008-8) [facility] WITH [id number] 04:33:58* Test Item Value Reference Range Interpretation Comme nts WBC (test code = 6690-2) See_Comment [Automated [employer]] The system which generated this result transmitted reference range: 4.20 - 10.70 10*3/?L. The reference range was not used to interpret this result as normal/abnormal. RBC (test code = 789-8) See_Comment [Automated [employer]] The system which generated this result [...] 32.9 g/dL 31.2-35.0 RDW-SD (test code = 85703-9) 47.2 fL 38.5-51.6 RDW-CV (test code = 788-0) 14.2 % 12.1-15.4 PLT (test code = 777-3) See_Comment [Automated [employer]] The system which generated this result transmitted reference range: 150 - 328 10*3/?L. The reference range was not used to interpret this result as normal/abnormal. MPV (test code = 96978-5) 8.5 fL 9.8-13.0 L NRBC/100 WBC (test code = 6706235040) See_Comment [Automated [employer] ssage] The system which generated this result transmitted reference range: 0.0 - 10.0 /100 WBCs. The reference range was not used to interpret this result as normal/abnormal. NRBC x10^3 (test code = 6406816807) See_Comment [Automated [employer]] The system which generated this result transmitted reference range: 10*3/?L. The reference range was not used to interpret this result as normal/abnormal. GRAN MAT (NEUT) % (test code = 770-8) 53.8 % IMM GRAN % (test code = 0565827271) 0.60 % LYMPH % (test code = 736-9) 34.6 % MONO % (test code = 5905-5) 8.3 % EOS % (test code = 713-8) 2.4 % BASO % (test code = 706-2) 0.3 % GRAN MAT x10^3(ANC) (test code = 0582419885) 3.85 10*3/uL 1.99-6.95 IMM GRAN x10^3 (test code = 0384052337) 0.04 10*3/uL 0.00-0.06 LYMPH x10^3 (test code = 731-0) 2.47 10*3/uL 1.09-3.23 MONO x10^3 (test code = 742-7) 0.59 10*3/uL 0.36-1.02 EOS x10^3 (test code = 711-2) 0.17 10*3/uL 0.06-0.53 BASO x10^3 (test code = 704-7) 0.01-0.09 Lab Interpretation (test code = 94243-8) Abnormal [facility]- [facility] CHEST 1 [id number] 09:27:00 [facility] 1970 Sex: M Name: LEANDRO LEHMAN [facility] : 1970 Age/S: 51 / M [address] Unit #: [id number] Loc: [place] [address] Phys: Randall Veloz MD Acct: [id number] Dis Date: Status: [facility] PHONE #: [phone] Exam Date: 09/24/2022 0910 FAX #: Reason: PRE OP EXAMS: CPT: [id number] XR CHEST 1 V 60597 Fluoro Time: DAP (Gy m2): Air Kerma [...] PAGE 1 Signed Report Name: LEANDRO LEHMAN [facility] Siddharth : 1970 Age/S: 51 / M [address] Unit #: [id number]: Trisha Messina [address] Phys: Randall Veloz MD Acct: [id number] Dis Date: Status: [facility] PHONE #: [phone] Exam Date: 09/24/2022909 FAX #: Reason: PRE OP EXAMS: CPT: [id number] XR CHEST 1 V 24697 Fluoro Time: DAP (Gy m2): Air Kerma (mGy): (Continued) Technologist: Delano Sorenson, RT(R)(CT) Trnscb Date/Time: 09/24/2022 (926) [email or web address] Orig Print D/T: S: 09/24/2022 (9865) PAGE 2 Signed ReportCBC W/AUTO [id number] 09:06:00* Test Item Value Reference Range Interpretation [...] = MDIFF) NO DIFF/SCN CRITERIA BASIC METABOLIC [id number] 09:00:00* Test Item Value Reference Range Interpretation [...] 8.9 MG/DL 8.5-10.1 N COVID 19 INHOUSE [id number] 08:52:00* Test Item Value Reference Range Interpretation Comme nts COVID 19 INHOUSE AG (test code = [id number]) NEGATIVE Negative Per quality nurse , negative results should be treated aspresumptive [...] Test Item Value Reference Range Interpretation Comme [facility] POCT GLU (test code = 1901610185) 193 mg/dL 70-110 H Lab Interpretation (test cod e = 74982-3) Abnormal [facility] GLUCOSE (AUTOMATED)2022-09-04 13:42:12* Test Item Value Reference Range Interpretation Comme [facility] POCT GLU (test code = 1120907308) 185 mg/dL 70-110 H Lab Interpretation (test cod e = 61209-3) Abnormal [facility] GLUCOSE (AUTOMATED)2022-09-04 05:36:51* Test Item Value Reference Range Interpretation Comme [facility] POCT GLU (test code = 4104944756) 204 mg/dL 70-110 H Lab Interpretation (test cod e = 17916-6) [facility]normal [facility] CenterGLYCOSYLATED [facility]EMOGLOBIN (A1C)2022-09-04 05:24:19* Test Item Value Reference Range Interpretation Comme [facility] HGB A1C (test code = 4548-4) 9.2 % 4-5.7 H ZULEIMA (test code = ZULEIMA) Reference RangesNormal: <5.7%Prediabetes: 5.7 - 6.4%Diabetes: > 6.5% Lab Interpretation (test code = 11931-4) [facility]normal [facility] CenterTR[facility] [id number] 22:58:29* Test Item Value Reference Range Interpretation Comments TROPONIN I (test code = 2467457482) 0.002 ng/mL See_Comment [Automated message] The system [...] of biotin. Lab Interpretation (test code = 22164-8) Normal [facility] [id number] 22:55:11* Test Item Value Reference Range Interpretation Comme nts NT-proBNP (test code = 0332546090) 29 pg/mL See_Comment [Automated message] The system which generated this result transmitted reference range: <=125. The reference range was not used to interpret this result as normal/abnormal. ZULEIMA (test code = ZULEIMA) Biotin has been reported to cause a negative bias, interpret results relative to patient's use of biotin. Lab Interpretation (test code = 27146-2) Normal [facility] CenterACTIV[facility] PARTIAL THRMPLAS [id number] 22:51:28* Test Item Value Reference Range Interpretation [...] 30 seconds. Lab Interpretation (test code = 11324-4) [facility]normal [facility] CenterCOM. METABOLIC PANEL (49155)2022-09-03 22:46:28* Test Item Value Reference Range Interpretation Comme nts NA (test code = 8262555117) 137 mmol/L 135-145 K (test code = 8766334191) 5.1 mmol/L 3.5-5 H CL (test code = 5972176929) 103 mmol/L 98-108 CO2 TOTAL (test code = 1677998917) 21 mmol/L 23-31 L AGAP (test code = 6994348384) 2-16 BUN (test code = 8766923934) 18 mg/dL 7-23 GLUCOSE (test code = 5062361130) 360 mg/dL 70-110 H CREATININE (test code = 9668756892) 0.84 mg/dL 0.6-1.25 TOTAL BILI (test code = 9849002732) 0.7 mg/dL 0.1-1.1 CALCIUM (test code = 5241747856) 9.2 mg/dL 8.6-10.6 T PROTEIN (test code = 7038124992) 6.7 g/dL 6.3-8.2 ALBUMIN (test code = 6685294905) 4.3 g/dL 3.5-5 ALK PHOS (test code = 0880652284) 140 U/L 34-122 H ALTv (test code = 1742-6) 727 U/L 5-50 H AST(SGOT) (test code = 9068548890) 348 U/L 13-40 H eGFR (test code = 8078243134) mL/min/1.73m2 ZULEIMA (test code = ZULEIMA) Association [...] imaging tests). Lab Interpretation (test code = 03673-6) [facility] 22:46:09* Test Item Value Reference Range Interpretation Comme nts LIPASE (test code = 4550287238) 252 U/L 0-220 H Lab Interpretation (test cod e = 51637-6) [facility]normal [facility] CenterCBC WITH [id number] 22:35:24* Test Item Value Reference Range Interpretation Comme nts WBC (test code = 6690-2) See_Comment [Automated [employer]] The system which generated this result transmitted reference range: 4.20 - 10.70 10*3/?L. The reference range was not used to interpret this result as normal/abnormal. RBC (test code = 789-8) See_Comment [Automated [employer]] The system which generated this result transmitted [...] 32.6 g/dL 31.2-35 RDW-SD (test code = 81616-6) 50.6 fL 38.5-51.6 RDW-CV (test code = 788-0) 16.0 % 12.1-15.4 H PLT (test code = 777-3) See_Comment [Automated [employer]] The system which generated this result transmitted reference range: 150 - 328 10*3/?L. The reference range was not used to interpret this result as normal/abnormal. MPV (test code = 85678-3) 9.1 fL 9.8-13 L NRBC/100 WBC (test code = 6949626484) See_Comment [Automated [employer] ssage] The system which generated this result transmitted reference range: 0.0 - 10.0 /100 WBCs. The reference range was not used to interpret this result as normal/abnormal. NRBC x10^3 (test code = 5136053310) See_Comment [Automated [employer]] The system which generated this result transmitted reference range: 10*3/?L. The reference range was not used to interpret this result as normal/abnormal. GRAN MAT (NEUT) % (test code = 770-8) 74.4 % IMM GRAN % (test code = 7701088745) 1.60 % LYMPH % (test code = 736-9) 17.8 % MONO % (test code = 5905-5) 5.7 % EOS % (test code = 713-8) 0.1 % BASO % (test code = 706-2) 0.4 % GRAN MAT x10^3(ANC) (test code = 5808210465) 6.35 10*3/uL 1.99-6.95 IMM GRAN x10^3 (test code = 0799696417) 0.14 10*3/uL 0-0.06 H LYMPH x10^3 (test code = 731-0) 1.52 10*3/uL 1.09-3.23 MONO x10^3 (test code = 742-7) 0.49 10*3/uL 0.36-1.02 EOS x10^3 (test code = 711-2) 0.06-0.53 L BASO x10^3 (test code = 704-7) 0.03 10*3/uL 0.01-0.09 Lab Interpretation (test code = 92857-4) Abnormal [facility] GLUCOSE (AUTOMATED)2022-04-23 19:01:02* Test Item Value Reference Range Interpretation Comme nts POCT GLU (test code = 7432333076) 174 mg/dL 70-110 H Lab Interpretation (test cod e = 81986-4) Abnormal [facility] GLUCOSE (AUTOMATED)2022-04-23 16:43:23* Test Item Value Reference Range Interpretation Comme nts POCT GLU (test code = 4561366137) 162 mg/dL 70-110 H Lab Interpretation (test cod e = 84523-3) Abnormal [facility] GLUCOSE (AUTOMATED)2022-04-23 15:37:41* Test Item Value Reference Range Interpretation Comme nts POCT GLU (test code = 6273592523) 130 mg/dL 70-110 H Lab Interpretation (test cod e = 12160-3) Abnormal [facility] GLUCOSE (AUTOMATED)2022-04-23 12:54:00* Test Item Value Reference Range Interpretation Comme nts POCT GLU (test code = 1458408297) 135 mg/dL 70-110 H Lab Interpretation (test cod e = 70248-2) Abnormal [facility] METABOLIC PANEL (NA, K, CL, CO2, GLUCOSE, BUN, CREATININE, CA)2022-04-23 11:38:26* Test Item Value Reference Range Interpretation Comme nts NA (test code = 7450637807) 137 mmol/L 135-145 K (test code = 6088294965) 3.2 mmol/L 3.5-5.0 L CL (test code = 0159034276) 110 mmol/L 98-108 H CO2 TOTAL (test code = 9336101059) 19 mmol/L 23-31 L AGAP (test code = 6598478576) 2-16 BUN (test code = 6096977968) <2 7-23 L GLUCOSE (test code = 0017182004) 121 mg/dL 70-110 H CREATININE (test code = 8832975401) 0.67 mg/dL 0.60-1.25 CALCIUM (test code = 9778341489) 7.7 mg/dL 8.6-10.6 L eGFR (test code = 7936118712) mL/min/1.73m2 ZULEIMA (test code = ZULEIMA) Association [...] imaging tests). Lab Interpretation (test code = 72064-2) Abnormal [facility] GLUCOSE (AUTOMATED)2022-04-23 11:35:25* Test Item Value Reference Range Interpretation Comme nts POCT GLU (test code = 3977461196) 135 mg/dL 70-110 H Lab Interpretation (test cod e = 86168-9) [facility]normal [facility] CenterMAGN[facility]UM2022-[facility]-25 11:05:56* Test Item Value Reference Range Interpretation Comme nts MAGNESIUM (test code = 6562539909) 1.7 mg/dL 1.7-2.4 Lab Interpretation (test cod e = 45645-2) Normal [facility] GLUCOSE (AUTOMATED)2022-04-23 09:37:57* Test Item Value Reference Range Interpretation Comme nts POCT GLU (test code = 4548683628) 107 mg/dL 70-110 Lab Interpretation (test cod e = 19542-7) Normal [facility] GLUCOSE (AUTOMATED)2022-04-23 07:22:08* Test Item Value Reference Range Interpretation Comme nts POCT GLU (test code = 8969621101) 146 mg/dL 70-110 H Lab Interpretation (test cod e = 26341-7) Abnormal [facility] GLUCOSE (AUTOMATED)2022-04-23 05:29:09* Test Item Value Reference Range Interpretation Comme nts POCT GLU (test code = 3259332518) 142 mg/dL 70-110 H Lab Interpretation (test cod e = 38798-2) Abnormal [facility] GLUCOSE (AUTOMATED)2022-04-23 04:10:18* Test Item Value Reference Range Interpretation Comme nts POCT GLU (test code = 1562488204) 148 mg/dL 70-110 H Lab Interpretation (test cod e = 62626-8) Abnormal [facility] GLUCOSE (AUTOMATED)2022-04-23 02:27:55* Test Item Value Reference Range Interpretation Comme nts POCT GLU (test code = 0771285101) 160 mg/dL 70-110 H Lab Interpretation (test cod e = 66734-2) Abnormal [facility] Metabolic Panel (Na, K, Cl, CO2, Glucose, BUN, Creatinine, Ca)2022-04-23 01:58:18* Test Item Value Reference Range Interpretation Comme nts NA (test code = 5975229386) 137 mmol/L 135-145 K (test code = 5158028939) 3.6 mmol/L 3.5-5.0 CL (test code = 6205981045) 109 mmol/L 98-108 H CO2 TOTAL (test code = 1546134746) 17 mmol/L 23-31 L AGAP (test code = 0221942395) 2-16 BUN (test code = 3579465178) <2 7-23 L GLUCOSE (test code = 3362929613) 162 mg/dL 70-110 H CREATININE (test code = 6057181882) 0.62 mg/dL 0.60-1.25 CALCIUM (test code = 0468914713) 8.2 mg/dL 8.6-10.6 L eGFR (test code = 5277867303) mL/min/1.73m2 ZULEIMA (test code = ZULEIMA) Association [...] imaging tests). Lab Interpretation (test code = 92370-3) Abnormal [facility] GLUCOSE (AUTOMATED)2022-04-23 01:21:32* Test Item Value Reference Range Interpretation Comme [facility] POCT GLU (test code = 3019310813) 142 mg/dL 70-110 H Lab Interpretation (test cod e = 49176-4) Abnormal [facility] GLUCOSE (AUTOMATED)2022-04-23 00:05:03* Test Item Value Reference Range Interpretation Comme [facility] POCT GLU (test code = 5763002023) 148 mg/dL 70-110 H Lab Interpretation (test cod e = 99159-9) Abnormal [facility] GLUCOSE (AUTOMATED)2022-04-22 23:06:57* Test Item Value Reference Range Interpretation Comme nts POCT GLU (test code = 3360908306) 144 mg/dL 70-110 H Lab Interpretation (test cod e = 33598-1) Abnormal [facility] GLUCOSE (AUTOMATED)2022-04-22 22:12:45* Test Item Value Reference Range Interpretation Comme nts POCT GLU (test code = 6510212240) 145 mg/dL 70-110 H Lab Interpretation (test cod e = 22071-1) [facility]normal [facility] CenterTR[facility] [id number] 21:43:14* Test Item Value Reference Range Interpretation Comments TROPONIN I (test code = 4373574892) 0.003 ng/mL See_Comment [Automated message] The system [...] of biotin. Lab Interpretation (test code = 62456-6) Normal [facility] Metabolic Panel (Na, K, Cl, CO2, Glucose, BUN, Creatinine, Ca)2022-04-22 21:31:09* Test Item Value Reference Range Interpretation Comme nts NA (test code = 6077942195) 134 mmol/L 135-145 L K (test code = 1210552402) 3.9 mmol/L 3.5-5.0 CL (test code = 0835377862) 108 mmol/L 98-108 CO2 TOTAL (test code = 1234857256) 15 mmol/L 23-31 L AGAP (test code = 1362486362) 2-16 BUN (test code = 3272281514) 2 mg/dL 7-23 L GLUCOSE (test code = 5902304365) 170 mg/dL 70-110 H CREATININE (test code = 4047274563) 0.62 mg/dL 0.60-1.25 CALCIUM (test code = 1273778842) 8.3 mg/dL 8.6-10.6 L eGFR (test code = 8147061374) mL/min/1.73m2 ZULEIMA (test code = ZULEIMA) Association [...] imaging tests). Lab Interpretation (test code = 05653-5) Abnormal [facility] GLUCOSE (AUTOMATED)2022-04-22 21:08:08* Test Item Value Reference Range Interpretation Comme [facility] POCT GLU (test code = 8257541093) 156 mg/dL 70-110 H Lab Interpretation (test cod e = 88629-0) Abnormal [facility] GLUCOSE (AUTOMATED)2022-04-22 19:48:36* Test Item Value Reference Range Interpretation Comme nts POCT GLU (test code = 3699891134) 154 mg/dL 70-110 H Lab Interpretation (test cod e = 84877-0) Abnormal [facility] GLUCOSE (AUTOMATED)2022-04-22 18:44:52* Test Item Value Reference Range Interpretation Comme nts POCT GLU (test code = 9785792326) 146 mg/dL 70-110 H Lab Interpretation (test cod e = 47843-8) Abnormal [facility] GLUCOSE (AUTOMATED)2022-04-22 17:28:16* Test Item Value Reference Range Interpretation Comme nts POCT GLU (test code = 9181532507) 148 mg/dL 70-110 H Lab Interpretation (test cod e = 23134-8) Abnormal [facility] Metabolic Panel (Na, K, Cl, CO2, Glucose, BUN, Creatinine, Ca)2022-04-22 16:11:05* Test Item Value Reference Range Interpretation Comme nts NA (test code = 8045247152) 134 mmol/L 135-145 L K (test code = 5068896530) 3.8 mmol/L 3.5-5.0 CL (test code = 7842008280) 106 mmol/L 98-108 CO2 TOTAL (test code = 9116489641) 15 mmol/L 23-31 L AGAP (test code = 8486760117) 2-16 BUN (test code = 9441424771) 4 mg/dL 7-23 L GLUCOSE (test code = 5616554754) 179 mg/dL 70-110 H CREATININE (test code = 1645823312) 0.68 mg/dL 0.60-1.25 CALCIUM (test code = 2075989889) 8.5 mg/dL 8.6-10.6 L eGFR (test code = 9442539460) mL/min/1.73m2 ZULEIMA (test code = ZULEIMA) Association [...] imaging tests). Lab Interpretation (test code = 25385-8) [facility]2022-[facility]-22 16:10:40* Test Item Value Reference Range Interpretation Comme [facility] POCT GLU (test code = 5055681472) 157 mg/dL 70-110 H Lab Interpretation (test cod e = 65993-4) Abnormal [facility] WITH [id number] 15:48:43* Test Item Value Reference Range Interpretation Comme [facility] WBC (test code = 6690-2) See_Comment [Automated [employer]] The system which generated this result transmitted reference range: 4.20 - 10.70 10*3/?L. The reference range was not used to interpret this result as normal/abnormal. RBC (test code = 789-8) See_Comment [Automated [employer]] The system which generated this result transmitted [...] 33.7 g/dL 31.2-35.0 RDW-SD (test code = 67961-8) 38.5 fL 38.5-51.6 RDW-CV (test code = 788-0) 12.4 % 12.1-15.4 PLT (test code = 777-3) See_Comment [Automated messa ge] The system which generated this result transmitted reference range: 150 - 328 10*3/?L. The reference range was not used to interpret this result as normal/abnormal. MPV (test code = 76453-2) 9.2 fL 9.8-13.0 L NRBC/100 WBC (test code = 6506727384) See_Comment [Automated [employer]age] The system which generated this result transmitted reference range: 0.0 - 10.0 /100 WBCs. The reference range was not used to interpret this result as normal/abnormal. NRBC x10^3 (test code = 9415099668) <0.01 See_Comment [Automated [employer]] The system which generated this result transmitted reference range: 10*3/?L. The reference range was not used to interpret this result as normal/abnormal. GRAN MAT (NEUT) % (test code = 770-8) 69.0 % IMM GRAN % (test code = 8448021844) 0.40 % LYMPH % (test code = 736-9) 18.9 % MONO % (test code = 5905-5) 9.1 % EOS % (test code = 713-8) 2.0 % BASO % (test code = 706-2) 0.6 % GRAN MAT x10^3(ANC) (test code = 4919742489) 6.20 10*3/uL 1.99-6.95 IMM GRAN x10^3 (test code = 1270379932) 0.04 10*3/uL 0.00-0.06 LYMPH x10^3 (test code = 731-0) 1.70 10*3/uL 1.09-3.23 MONO x10^3 (test code = 742-7) 0.82 10*3/uL 0.36-1.02 EOS x10^3 (test code = 711-2) 0.18 10*3/uL 0.06-0.53 BASO x10^3 (test code = 704-7) 0.05 10*3/uL 0.01-0.09 Lab Interpretation (test code = 14274-9) Abnormal [facility] GLUCOSE (AUTOMATED)2022-04-22 14:27:15* Test Item Value Reference Range Interpretation Comme nts POCT GLU (test code = 0661669197) 150 mg/dL 70-110 H Lab Interpretation (test cod e = 25196-4) Abnormal [facility] GLUCOSE (AUTOMATED)2022-04-22 13:41:45* Test Item Value Reference Range Interpretation Comme nts POCT GLU (test code = 7474100719) 149 mg/dL 70-110 H Lab Interpretation (test cod e = 22677-9) Abnormal [facility] GLUCOSE (AUTOMATED)2022-04-22 12:29:18* Test Item Value Reference Range Interpretation Comme nts POCT GLU (test code = 3201167025) 174 mg/dL 70-110 H Lab Interpretation (test cod e = 01840-0) Abnormal [facility] GLUCOSE (AUTOMATED)2022-04-22 11:33:37* Test Item Value Reference Range Interpretation Comme nts POCT GLU (test code = 1975170401) 159 mg/dL 70-110 H Lab Interpretation (test cod e = 45305-1) Abnormal [facility] Metabolic Panel (Na, K, Cl, CO2, Glucose, BUN, Creatinine, Ca)2022-04-22 11:30:20* Test Item Value Reference Range Interpretation Comme nts NA (test code = 3207069883) 133 mmol/L 135-145 L K (test code = 9628503994) 3.3 mmol/L 3.5-5.0 L CL (test code = 1479381874) 104 mmol/L 98-108 CO2 TOTAL (test code = 8660156566) 14 mmol/L 23-31 L AGAP (test code = 8573233062) 2-16 BUN (test code = 1586632463) 4 mg/dL 7-23 L GLUCOSE (test code = 6938523226) 172 mg/dL 70-110 H CREATININE (test code = 6586787273) 0.77 mg/dL 0.60-1.25 CALCIUM (test code = 4015956601) 8.6 mg/dL 8.6-10.6 eGFR (test code = 3183209593) mL/min/1.73m2 ZULEIMA (test code = ZULEIMA) Association [...] imaging tests). Lab Interpretation (test code = 76300-5) Abnormal [facility] GLUCOSE (AUTOMATED)2022-04-22 10:56:08* Test Item Value Reference Range Interpretation Comme [facility] POCT GLU (test code = 3762651146) 157 mg/dL 70-110 H Lab Interpretation (test cod e = 73167-9) Abnormal [facility] GLUCOSE (AUTOMATED)2022-04-22 10:56:03* Test Item Value Reference Range Interpretation Comme [facility] POCT GLU (test code = 8125774578) 96 mg/dL 70-110 Lab Interpretation (test cod e = 70066-6) Normal [facility] GLUCOSE (AUTOMATED)2022-04-22 09:35:36* Test Item Value Reference Range Interpretation Comme nts POCT GLU (test code = [id number]) 158 mg/dL 70-110 H Lab Interpretation (test cod e = 84885-3) Abnormal [facility] GLUCOSE (AUTOMATED)2022-04-22 08:36:40* Test Item Value Reference Range Interpretation Comme [facility] POCT GLU (test code = [id number]) 166 mg/dL 70-110 H Lab Interpretation (test cod e = 28993-1) Abnormal [facility] Metabolic Panel (Na, K, Cl, CO2, Glucose, BUN, Creatinine, Ca)2022-04-22 08:00:14* Test Item Value Reference Range Interpretation Comme nts NA (test code = [id number]) 133 mmol/L 135-145 L K (test code = 9910402136) 3.6 mmol/L 3.5-5.0 CL (test code = 0244537458) 103 mmol/L 98-108 CO2 TOTAL (test code = 2265626023) 14 mmol/L 23-31 L AGAP (test code = 6363004924) 2-16 BUN (test code = 0658005762) 5 mg/dL 7-23 L GLUCOSE (test code = 4574806099) 172 mg/dL 70-110 H CREATININE (test code = 4387132664) 0.85 mg/dL 0.60-1.25 CALCIUM (test code = 3995445484) 9.0 mg/dL 8.6-10.6 eGFR (test code = 7503156764) mL/min/1.73m2 ZULEIMA (test code = ZULEIMA) Association [...] imaging tests). Lab Interpretation (test code = 98134-1) [facility]normal [facility] Center[facility]smolality [id number] 07:46:08* Test Item Value Reference Range Interpretation Comme nts OSMOLALITY (test code = 2692-2) See_Comment [Automated Iagnosis] The system which generated this result transmitted reference range: 278 - 305 mOsm/kg. The reference range was not used to interpret this result as normal/abnormal. Lab Interpretation (test code = 72989-1) Normal [facility] GLUCOSE (AUTOMATED)2022-04-22 07:36:29* Test Item Value Reference Range Interpretation Comme nts POCT GLU (test code = 5472414053) 144 mg/dL 70-110 H Lab Interpretation (test cod e = 64685-4) Abnormal [facility] GLUCOSE (AUTOMATED)2022-04-22 07:36:29* Test Item Value Reference Range Interpretation Comme nts POCT GLU (test code = 5598888820) 168 mg/dL 70-110 H Lab Interpretation (test cod e = 75959-6) Abnormal [facility] CenterBetahydroxy-Fpyympbe3802-16-62 07:26:24* Test Item Value Reference Range Interpretation Comme nts BOH (test code = 3170280371) 3.1 mmol/L ZULEIMA (test code = ZULEIMA) Normal Ranges: ? ? Nonfasting ? Less than 0.1 mmol/L ? ? Overnight Fast ? ? ? Less than 0.4 mmol/L ? ? Fasting (1-2 weeks) ?6-8 mmol/L Test developed and characteristics determined by [facility] Laboratory Services. [facility] Center[facility]ATED)2022-04-22 06:32:35* Test Item Value Reference Range Interpretation Comme [facility] POCT GLU (test code = 0271544834) 155 mg/dL 70-110 H Lab Interpretation (test cod e = 42102-2) Abnormal [facility] Metabolic Panel (Na, K, Cl, CO2, Glucose, BUN, Creatinine, Ca)2022-04-22 06:02:22* Test Item Value Reference Range Interpretation Comme [facility] NA (test code = 5780243508) 134 mmol/L 135-145 L K (test code = 7718752166) 3.6 mmol/L 3.5-5.0 CL (test code = 9403423035) 104 mmol/L 98-108 CO2 TOTAL (test code = 9440466290) 11 mmol/L 23-31 L AGAP (test code = 7622390335) 2-16 H BUN (test code = 3057575610) 7 mg/dL 7-23 GLUCOSE (test code = 1271866845) 177 mg/dL 70-110 H CREATININE (test code = 6877899407) 0.81 mg/dL 0.60-1.25 CALCIUM (test code = 7366360493) 9.0 mg/dL 8.6-10.6 eGFR (test code = 9069642762) mL/min/1.73m2 ZULEIMA (test code = ZULEIMA) Association [...] imaging tests). Lab Interpretation (test code = 88579-5) Abnormal [facility] GLUCOSE (AUTOMATED)2022-04-22 04:35:23* Test Item Value Reference Range Interpretation Comme [facility] POCT GLU (test code = 1816523200) 154 mg/dL 70-110 H Lab Interpretation (test cod e = 62503-2) Abnormal [facility] GLUCOSE (AUTOMATED)2022-04-22 03:44:33* Test Item Value Reference Range Interpretation Comme [facility] POCT GLU (test code = 9964095681) 166 mg/dL 70-110 H Lab Interpretation (test cod e = 99811-2) Abnormal [facility] CenterLandic Acid Whole [id number] 03:11:51* Test Item Value Reference Range Interpretation Comme [facility] LACTIC ACID (test code = 8468778725) 2.04 mmol/L 0.50-2.20 Lab Interpretation (test cod e = 30915-8) Normal [facility] Metabolic Panel (Na, K, Cl, CO2, Glucose, BUN, Creatinine, Ca)2022-04-22 02:17:22* Test Item Value Reference Range Interpretation Comme nts NA (test code = 4361102110) 134 mmol/L 135-145 L K (test code = 6204991068) 4.3 mmol/L 3.5-5.0 CL (test code = 9245456649) 101 mmol/L 98-108 CO2 TOTAL (test code = 1874564898) 10 mmol/L 23-31 L AGAP (test code = 5674138359) 2-16 H BUN (test code = 8918614749) 8 mg/dL 7-23 GLUCOSE (test code = 5529977352) 128 mg/dL 70-110 H CREATININE (test code = 5141616971) 0.92 mg/dL 0.60-1.25 CALCIUM (test code = 1743523630) 9.2 mg/dL 8.6-10.6 eGFR (test code = 4488243135) mL/min/1.73m2 ZULEIMA (test code = ZULEIMA) Association [...] imaging tests). Lab Interpretation (test code = 85178-7) Abnormal [facility] GLUCOSE (AUTOMATED)2022-04-22 02:16:37* Test Item Value Reference Range Interpretation Comme [facility] POCT GLU (test code = 3197898805) 132 mg/dL 70-110 H Lab Interpretation (test cod e = 91282-9) Abnormal [facility] CenterPO[facility])2022-04-22 01:19:28* Test Item Value Reference Range Interpretation Comme [facility] POCT GLU (test code = 6394460334) 142 mg/dL 70-110 H Notified Provide r Lab Interpretation (test code = 03510-4) Abnormal [facility] CenterGlycosylated Hemoglobin (A1C)2022-04-22 01:01:17* Test Item Value Reference Range Interpretation Comme [facility] HGB A1C (test code = 4548-4) 10.5 % 4.0-5.7 H ZULEIMA (test code = ZULEIMA) Reference RangesNormal: <5.7%Prediabetes: 5.7 - 6.4%Diabetes: > 6.5% Lab Interpretation (test code = 27385-6) Abnormal [facility] CenterMagnesium Skvjp0584-02-72 00:42:52* Test Item Value Reference Range Interpretation Comme [facility] MAGNESIUM (test code = 4276692710) 1.9 mg/dL 1.7-2.4 Lab Interpretation (test cod e = 59770-5) Normal [facility] CenterPhosphorus [id number] 00:42:32* Test Item Value Reference Range Interpretation Comme nts PHOSPHORUS (test code = 4762712125) 5.1 mg/dL 2.5-5.0 H Lab Interpretation (test cod e = 97407-3) Abnormal [facility] CenterAC PANEL 21 + LACTIC [id number] 00:14:12* Test Item Value Reference Range Interpretation Comme nts PH (test code = 9121753607) 7.32-7.42 L PCO2 SAKINA (test code = 7346307426) See_Comment L [Automated messa ge] The system which generated this result transmitted reference range: 41 - 51 mmHg. The reference range was not used to interpret this result as normal/abnormal. PO2 SAKINA (test code = 0463326333) See_Comment H [Automated messa ge] The system which generated this result transmitted reference range: 25 - 40 mmHg. The reference range was not used to interpret this result as normal/abnormal. HCO3 SAKINA (test code = 0833177695) See_Comment L [Automated messa ge] The system which generated this result transmitted reference range: 24 - 28 mEq/L. The reference range was not used to interpret this result as normal/abnormal. AC VBE(BEAKER) (test code = 0218579099) mEq/L THB SAKINA (test code = 1702155963) 16.5 g/dL 13.5-18.0 %O2HB SAKINA (test code = 5827297527) 84.9 % 52.0-63.0 H %COHB SAKINA (test code = 9522840517) 0.3 % 0.0-1.5 %METHB SAKINA (test code = 4429185728) 0.1 % 0.4-1.5 L VOL%O2 SAKINA (test code = 2106753749) 19.6 % 6.0-12.0 H NA (test code = 8975393561) 134 mmol/L 135-145 L K+ (test code = 1034770194) 3.7 mmol/L 3.5-5.0 AC CA IONZ (test code = 5502254508) 5.30 mg/dL 4.50-5.30 GLUCOSE (test code = 6746011056) 155 mg/dL 70-110 H LACTIC ACID (test code = 5916144580) 2.34 mmol/L 0.50-2.20 H Lab Interpretation (test code = 26305-5) Abnormal [facility] [id number] 23:48:43* Test Item Value Reference Range Interpretation Comments TROPONIN I (test code = 6979705395) 0.002 ng/mL See_Comment [Automated message] The system [...] of biotin. Lab Interpretation (test code = 50246-3) Normal [facility] CenterN-TERMINAL [id number] 23:45:26* Test Item Value Reference Range Interpretation Comme nts NT-proBNP (test code = 9128557631) 38 pg/mL See_Comment [Automated message] The system which generated this result transmitted reference range: <=125. The reference range was not used to interpret this result as normal/abnormal. ZULEIMA (test code = ZULEIMA) Biotin has been reported to cause a negative bias, interpret results relative to patient's use of biotin. Lab Interpretation (test code = 12967-0) Normal [facility] CenterCOMP. METABOLIC PANEL (40423)2022-04-21 23:45:16* Test Item Value Reference Range Interpretation Comme nts NA (test code = 7848864643) 134 mmol/L 135-145 L K (test code = 1581612522) 4.3 mmol/L 3.5-5.0 CL (test code = 6867494173) 100 mmol/L 98-108 CO2 TOTAL (test code = 9982264029) 8 mmol/L 23-31 L AGAP (test code = 0716679515) 2-16 H BUN (test code = 4980979789) 8 mg/dL 7-23 GLUCOSE (test code = 3919193603) 169 mg/dL 70-110 H CREATININE (test code = 4318264488) 0.93 mg/dL 0.60-1.25 TOTAL BILI (test code = 0802063375) 1.1 mg/dL 0.1-1.1 CALCIUM (test code = 1563557350) 9.8 mg/dL 8.6-10.6 T PROTEIN (test code = 1259462082) 8.2 g/dL 6.3-8.2 ALBUMIN (test code = 7793024077) 5.0 g/dL 3.5-5.0 ALK PHOS (test code = 5862853797) 106 U/L 34-122 ALTv (test code = 1742-6) 64 U/L 5-50 H AST(SGOT) (test code = 4811962161) 47 U/L 13-40 H eGFR (test code = 3027265310) mL/min/1.73m2 ZULEIMA (test code = ZULEIMA) Association [...] imaging tests). Lab Interpretation (test code = 40236-0) Abnormal [facility] CenterLIPASE2022-05-23 23:37:42* Test Item Value Reference Range Interpretation [facility] LIPASE (test code = 5558326811) 106 U/L 0-220 Lab Interpretation (test cod e = 42589-9) Normal [facility] CenterPROTHROMBIN TIME / [id number] 23:30:44* Test Item Value Reference Range Interpretation Comme [facility] PROTIME PATIENT (test code = 5964-2) See_Comment [Automated Iagnosis] The system which generated this result transmitted reference range: 12.0 - 14.7 Seconds. The reference range was not used to interpret this result as normal/abnormal. INR (test code = 6301-6) Normal INR <1.1; Warfarin Therapeutic range 2.0 to 3.0 or 2.5 to 3.5, depending upon the indications. Lab Interpretation (test code = 04880-1) Normal [facility] WITH [id number] 23:22:44* Test Item Value Reference Range Interpretation [...] 33.4 g/dL 31.2-35.0 RDW-SD (test code = 86512-4) 38.3 fL 38.5-51.6 L RDW-CV (test code = 788-0) 12.3 % 12.1-15.4 PLT (test code = 777-3) See_Comment H [Automated messa ge] The system which generated this result transmitted reference range: 150 - 328 10*3/?L. The reference range was not used to interpret this result as normal/abnormal. MPV (test code = 73959-2) 9.2 fL 9.8-13.0 L NRBC/100 WBC (test code = 2670048501) See_Comment [Automated me ssage] The system which generated this result transmitted reference range: 0.0 - 10.0 /100 WBCs. The reference range was not used to interpret this result as normal/abnormal. NRBC x10^3 (test code = 2703997914) <0.01 See_Comment [Automated messa ge] The system which generated this result transmitted reference range: 10*3/?L. The reference range was not used to interpret this result as normal/abnormal. GRAN MAT (NEUT) % (test code = 770-8) 62.0 % IMM GRAN % (test code = 7201250003) 0.30 % LYMPH % (test code = 736-9) 29.7 % MONO % (test code = 5905-5) 6.5 % EOS % (test code = 713-8) 0.9 % BASO % (test code = 706-2) 0.6 % GRAN MAT x10^3(ANC) (test code = 1045626567) 7.25 10*3/uL 1.99-6.95 H IMM GRAN x10^3 (test code = 1063157853) 0.04 10*3/uL 0.00-0.06 LYMPH x10^3 (test code = 731-0) 3.48 10*3/uL 1.09-3.23 H MONO x10^3 (test code = 742-7) 0.76 10*3/uL 0.36-1.02 EOS x10^3 (test code = 711-2) 0.11 10*3/uL 0.06-0.53 BASO x10^3 (test code = 704-7) 0.07 10*3/uL 0.01-0.09 Lab Interpretation (test code = 12399-1) Abnormal [facility] CenterALBUMIN/CREATININE RATIO, URINE, RANDOM 2022-03-11 01:57:25* Test Item Value Reference Range Interpretation Comme nts CREATININE, URINE, RANDOM (test code = 2072) 61.2 MG/DL NOT ESTAB ALBUMIN, URINE, RANDOM (test code = 86918) <0.2 MG/DL NOT ESTAB CALC ALBUMIN/CREAT, RND (test code = 49097) <3 MG/G <30 Note: Albumin/Creatinine ratio reference interval reflects ADA and NKF guidelines. COMPREHENSIVE METABOLIC [id number] 00:29:28* Test Item Value Reference Range Interpretation Comme nts GLUCOSE (test code = 2217) 413 MG/DL 70-99 H BUN (test code = 2208) 14 MG/DL 6-20 CREATININE (test code = 2214) 0.81 MG/DL 0.80-1.40 eGFR (2020 CKD-EPI) (test code = ) 107 ML/MIN/1.73 >60 CALC BUN/CREAT (test code [...] = 2218) 54 U/L 5-50 H LIPID [id number] 00:29:28* Test Item Value Reference Range Interpretation Comme nts CHOLESTEROL (test code = 2209) 174 MG/DL <200 TRIGLYCERIDES (test code = 223) 311 MG/DL <150 H HDL CHOLESTEROL (test code = 2220) 40 MG/DL >39 CALC LDL CHOL (test code = 2237) 93 MG/DL <100 NOTE: CALCULATED LDL IS BASED ON LEANDRO-BREWER METHOD WHICHINCLUDES ADJUSTABLE TRIGLYCERIDE:VLDL CHOLESTEROL RATIO.THIS FACTOR VARIES BY MEASURED TRIGLYCERIDE AND NON-HDLCHOLESTEROL CONCENTRATIONS WITH INCREASED CALCULATED LDL SEENIN HIGHER TRIGLYCERIDE OR LOWER NON-HDL SPECIMENS. FOR MOREINFORMATION, SEE CLIENT ANNOUNCEMENT AT [email or web address] /CalcLDL-C RISK RATIO LDL/HDL (test code = 2238) 2.33 RATIO <3.55 HEMOGLOBIN [id number] 03:12:57* Test Item Value Reference Range Interpretation Comme [facility] HEMOGLOBIN A1c (test code = 75805) 11.3 % 4.2-5.6 H [employer] GUIDELINES FOR HGB A1C: [...] CONSULTATION. UNLESS OTHERWISE INDICATED, ALL TESTING PERFORMED [facility] SERVICESA[facility] PATHOLOGY [employer] [address] [place] [id number] SCRAP BURNER: MELECIO GREEN M.D. CLIA NUMBER [id number] [place]. [id number] COMPREHENSIVE METABOLIC [id number] 04:51:05* Test Item Value Reference Range Interpretation Comme [facility] GLUCOSE (test code = 7) 299 MG/DL 70-99 H BUN (test code = 2207) 15 MG/DL 6-20 CREATININE (test code = 2214) 0.67 MG/DL 0.80-1.40 L eGFR (2020 CKD-EPI) (test code = 94741) 114 ML/MIN/1.73 >60 CALC BUN/CREAT (test code [...] 6.5 G/DL 6.1-8.3 ALBUMIN (test code = 220) 4.0 G/DL 3.5-5.2 CALC GLOBULIN (test code [...] = 2219) 76 U/L 5-50 H LIPID [id number] 04:51:05* Test Item Value Reference Range Interpretation Comme nts CHOLESTEROL (test code = 2210) 213 MG/DL <200 H TRIGLYCERIDES (test code = 2231) 119 MG/DL <150 HDL CHOLESTEROL (test code = 0) 77 MG/DL >39 CALC LDL CHOL (test code = 2237) 113 MG/DL <100 H NOTE: CALCULATED LDL IS BASED ON LEANDRO-BREWER METHOD WHICHINCLUDES ADJUSTABLE TRIGLYCERIDE:VLDL CHOLESTEROL RATIO.THIS FACTOR VARIES BY MEASURED TRIGLYCERIDE AND NON-HDLCHOLESTEROL CONCENTRATIONS WITH INCREASED CALCULATED LDL SEENIN HIGHER TRIGLYCERIDE OR LOWER NON-HDL SPECIMENS. FOR MOREINFORMATION, SEE CLIENT ANNOUNCEMENT AT [email or web address] /CalcLDL-C RISK RATIO LDL/HDL (test code = 2238) 1.47 RATIO <3.55 UNLESS OTHERW ISE INDICATED, ALL TESTING PERFORMED [facility] [address] [place] [address] SCRAP BURNER: MELECIO GREEN M.D. [place] NUMBER [id number] [place]. [id number] HEMOGLOBIN [id number] 02:53:45* Test Item Value Reference Range Interpretation Comme nts HEMOGLOBIN A1c (test code = 14256) 10.6 % 4.2-5.6 H [employer] GUIDELINES FOR HGB A1C: [...] before and after session COMMUNICATION Primary Language: Libyan Able to Verbalize needs: Yes Vision:good; no [...] Treatment Time in Minutes: 20 min Frida Childress, PT [place] PT License [id number] [facility] Rehabilitation Services Department (phone) (fax) Frida Childress PT [facility] - Health History and Physical Notes Date/Time Note Provider Source 2024-02-24 15:13:16 [facility] Hospitalist Admission H&P Date of Service: 02/24/2024 CHIEF COMPLAINT: Fatigue and weakness HISTORY OF PRESENT ILLNESS Leandro Lehman is a 53 year old male with history of insulin-dependent diabetic, HTN, CAD, MN in 10/22, proximal A-fib, GERD, chronic hypoxic [...] METOPROLOL SUCCINATE ORAL Comments: Reason for Stopping: [id number]-[id number]-[id number]-znvx oil (OMEGA-3 2100) 1,050-1,200 mg Cap Comments: [...] Smoking status: Former Types: Cigarettes Quit date: 2000 Years since quittin.2 Passive exposure: Never Smokeless [...] Preliminary Report Dictated by Resident: Rose Mary Kriby I, Azar Soto MD., have reviewed this study and agree [...] Cessation: (Z71.6) Tobacco user?: Former smoker Observation [facility] was viewed during this stay SANTIAGO Reyez [...] including diabetes, hypertension, coronary disease status post MN, paroxysmal atrial fibrillation, GERD, chronic hypoxic respiratory failure on 3 L nasal cannula oxygen who presented for generalized weakness with intractable nausea vomiting secondary to suspected diabetic gastroparesis. Continue on Reglan as needed Zofran. Encourage patient to have small frequent meals. Rest of plan events outlined below. Sachin Mcallister DO 02/24/2024 8:11 PM [facility]
[2024-12-30 09:31] LABS: Absolute Basophils 0.1 K/uL (0-0.5); Absolute Eosinophils 0.3 K/uL (0-0.5); Absolute Lymphocytes (CBC) 2.3 K/uL (0.7-4.9); Absolute Monocytes 0.5 K/uL (0.1-1.3); Basophils % 1.2 % (0-1.3); Eosinophils % 4.8 % (0-4.4); Hematocrit 41.2 % (39.6-49.0); Hemoglobin 13.6 g/dL (13.6-17.9); MCH 27.6 pg (27.0-35.0); MCHC 33.1 g/dL (32.0-36.0); MCV 83.4 fL (80-100); MPV 6.9 fL (7.6-11.3); Monocytes % 8.4 % (3.3-12.3); Neutrophils % 48.6 % (41.7-73.7); Nucleated Red Blood Cells % 0.1 % (0-0); Platelets 340 thou/uL (152-406); RBC Red Blood Cell Count 4.93 M/uL (4.33-5.43); Red Cell Distribution Width 13.1 % (12.1-15.2)
[2024-12-30 09:32] LABS: PT Prothrombin Time 12.5 SECONDS (9.4-12.5); Protime INR 1.19
[2024-12-30 09:45] LABS: Albumin 3.2 g/dL (3.4-5.0); Albumin/Globulin Ratio 0.8 (1.1-1.8); Anion Gap 10.5 mEq/L (5.0-15.0); Bilirubin Direct 0.3 mg/dL (0-0.2); Bilirubin Indirect, Calculated 0.9 mg/dL (0.2-0.8); Bilirubin Total 1.2 mg/dL (0.2-1.0); Globulin 4.2 g/dL (2.3-3.5); Magnesium 1.8 mg/dL (1.6-2.4); Potassium 3.5 mEq/L (3.5-5.1); Protein, Total 7.4 g/dL (6.4-8.2); Troponin High Sensitivity 8.3 pg/mL (<58.9)
--- NOTE | 2024-12-30 09:49 | RAD REPORT ---
Procedure: Chest Single View HISTORY: Swelling COMPARISON: 2023 FINDINGS: The lungs appear clear of acute infiltrate. No significant pleural effusion noted. The heart is normal size. IMPRESSION: No acute abnormality is displayed.
[2024-12-30] MEDS ORDERED: FUROSEMIDE 40 MG/4 ML VIAL ONE (10:06)
[2024-12-30] MEDS ORDERED: INSULIN REGULAR (HUMAN) 100 UNIT/ML ONE (10:06)
--- NOTE | 2024-12-30 10:10 | EDPHYS ---
Physician Documentation [facility] Name: Leandro Rand Age: 54 yrs Sex: Male : 1970 Arrival Date: 12/30/2024 Time: 08:53 Bed 3 Private MD: ED Physician Gray Israel HPI: 12/30 09:29 54-year-old male with history of CHF, diabetes, on home O2, hyperlipidemia, renal sp3 insufficiency now presents to the ED with chief complaint peripheral edema, shortness of breath and generalized fatigue. He denies any fever, chest pain, abdominal pain, vomiting or diarrhea (but does endorse nausea), syncope, rash, bleeding or any other symptoms on ROS at this time. Symptoms been going on for the last 48 hours progressively getting worse.. Historical: - Allergies: 09:05 Farxiga; hb 09:05 Jardiance; hb 09:05 Steglatro; hb - PMHx: 09:05 Congestive heart failure; COVID-19; Diabetes - IDDM; Home Oxygen ; 3-4 L; hb Hyperlipidemia; kidney disease; lung failure; Myocardial infarction; Sleep Apnea; - PSHx: 09:05 Cholecystectomy; heart cath; Left first finger amputation; hb - Immunization history:: Adult Immunizations up to date. - Infectious Disease History:: Denies. - Social history:: Smoking status: Patient/guardian denies using tobacco, the patient reports quitting approximately 10 years ago. ROS: 09:30 Constitutional: Negative for fever, chills, and weight loss, Eyes: Negative for injury, sp3 pain, redness, and discharge, ENT: Negative for injury, pain, and discharge, Neck: Negative for injury, pain, and swelling, Abdomen/GI: Negative for abdominal pain, nausea, vomiting, diarrhea, and constipation, Back: Negative for injury and pain, Skin: Negative for injury, rash, and discoloration, Neuro: Negative for headache, weakness, numbness, tingling, and seizure, Psych: Negative for depression, anxiety, suicide ideation, homicidal ideation, and hallucinations, Allergy/Immunology: Negative for hives, rash, and allergies, 09:30 All other systems are negative, Exam: 09:30 Constitutional: This is a well developed, well nourished patient who is awake, alert, sp3 and in no acute distress. Head/Face: Normocephalic, atraumatic. Eyes: Pupils equal round and reactive to light, extra-ocular motions intact. Lids and lashes normal. Conjunctiva and sclera are non-icteric and not injected. Cornea within normal limits. Periorbital areas with no swelling, redness, or edema. Neck: Trachea midline, no thyromegaly or masses palpated, and no cervical lymphadenopathy. Supple, full range of motion without nuchal rigidity, or vertebral point tenderness. No Meningismus. Chest/axilla: Normal chest wall appearance and motion. Nontender with no deformity. No lesions are appreciated. Cardiovascular: Regular rate and rhythm with a normal S1 and S2. No gallops, murmurs, or rubs. Normal PMI, no JVD. No pulse deficits. Abdomen/GI: Soft, non-tender, with normal bowel sounds. No distension or tympany. No guarding or rebound. No evidence of tenderness throughout. Back: No spinal tenderness. No costovertebral tenderness. Full range of motion. Skin: Warm, dry with normal turgor. Normal color with no rashes, no lesions, and no evidence of cellulitis. Neuro: Awake and alert, GCS 15, oriented to person, place, time, and situation. Cranial nerves II-XII grossly intact. Motor strength 5/5 in all extremities. Sensory grossly intact. Cerebellar exam normal. Normal gait. Psych: Awake, alert, with orientation to person, place and time. Behavior, mood, and affect are within normal limits. 09:30 Respiratory: Mild Rales bilateral., 09:30 Musculoskeletal/extremity: Peripheral edema noted diffusely 2+ pitting in nature.. 09:32 ECG was reviewed by the Attending Physician. EKG demonstrates normal sinus rhythm at 91 sp3 bpm with normal intervals, normal QRS, normal axis, nonspecific diffuse ST cystic changes without evidence of acute ischemia. Vital Signs: 09:03 BP 129 / 77; Pulse 101; Resp 18; Temp 99(O); Pulse Ox 88% on R/A; Weight 108.86 kg; hb Height 5 ft. 7 in. ; Pain 8/10; 11:22 BP 131 / 79; Pulse 98; Resp 18; Pulse Ox 93% on 2 lpm NC; ld1 09:03 Body Mass Index 37.59 (108.86 kg, 170.18 cm) hb 09:03 Pain Scale: Adult hb MDM: 09:02 Medical Screening Exam initiated sp3 09:30 Data reviewed: vital signs, nurses notes, old medical records, lab test result(s), EKG, sp3 radiologic studies. ED course: 54-year-old male with PMH above including CHF now presents with peripheral edema and shortness of breath. Differential diagnosis includes congestive heart failure, anasarca, ACS, bronchitis, pneumonia, among others. I am not highly suspicious of sepsis, shock, PE or any other critical pathology. Workup will include EKG, chest x-ray, general labs, supportive care and any medications as indicated.. 09:54 ED course: Full workup negative and BNP is normal. Chest x-ray demonstrates sp3 cardiomegaly but otherwise no significant pulmonary edema. Current edema must be more peripheral. Will give 1 dose of Lasix and discharge patient home. Also 1 dose of insulin given hyperglycemia.. 12/30 09:14 Order name: Basic Metabolic Panel; Complete Time: 09:48 3 12/30 09:14 Order name: CBC with Diff; Complete Time: 09:48 12/30 09:14 Order name: LFT's; Complete Time: 09:48 12/30 09:14 Order name: Magnesium; Complete Time: 09:48 12/30 09:14 Order name: NT PRO-BNP; Complete Time: 09:48 12/30 09:14 Order name: PT-INR; Complete Time: 09:48 12/30 09:14 Order name: Troponin HS; Complete Time: 09:48 12/30 09:14 Order name: XRAY Chest (1 view); Complete Time: 09:55 12/30 09:14 Order name: Cardiac monitoring; Complete Time: 09:16 12/30 09:14 Order name: EKG - Nurse/Tech; Complete Time: 09:33 12/30 09:14 Order name: IV Saline Lock; Complete Time: 09:16 12/30 09:14 Order name: Labs collected and sent; Complete Time: 09:16 12/30 09:14 Order name: O2 Per Protocol; Complete Time: 09:16 12/30 09:14 Order name: O2 Sat Monitoring; Complete Time: 09:16 sp3 Administered Medications: 10:12 Drug: Insulin Regular Human IVP 10 units IVP once {Co-Signature: ap3 (Rabia Latif1 RN).} Route: IVP; Site: left antecubital; 10:12 Drug: Ondansetron IVP 4 mg IVP once; over 2 minutes Route: IVP; Site: left antecubital; ld1 10:13 Drug: Furosemide IVP 40 mg IVP once; give over 2 minutes Route: IVP; Site: left ld1 antecubital; Disposition Summary: 12/30/24 10:10 Discharge Ordered Notes: Location: Home sp3 Condition: Stable sp3 Diagnosis - Peripheral edema, anasarca, nausea sp3 Followup: sp3 - With: Private Physician - When: Upon discharge from the Emergency Department - Reason: Continuance of care Discharge Instructions: - Discharge Summary Sheet sp3 - Peripheral Edema sp3 Forms: - Medication Reconciliation Form sp3 - Antibiotic Education sp3 - Prescription Opioid Use sp3 - Patient Portal Instructions sp3 - Leadership Thank You Letter sp3 Prescriptions: - ondansetron 8 mg Oral Tablet,disintegrating - take 1 tablet ORAL route every 12 hours; 20 tablet; Refills: 0, Product sp3 Selection Permitted Signatures: Dispatcher [employer] EDMS Sarah Beth Rider RN MARILU Liliana Cano RN RN ld1 Gray Israel MD MD sp3 Rabia Latif RN ap3 Corrections: (The following items were deleted from the chart) 09:15 09:15 BASIC METABOLIC PANEL+C.LAB.BRZ ordered. EDMS EDMS 09:15 09:15 CBC+H.LAB.BRZ ordered. EDMS EDMS 09:15 09:15 HEPATIC FUNCTION+C.LAB.BRZ ordered. EDMS EDMS 09:15 09:15 MAGNESIUM+C.LAB.BRZ ordered. EDMS EDMS 09:15 09:15 PROBNP+C.LAB.BRZ ordered. EDMS EDMS 09:15 09:15 PROTIME (+INR)+COAG.LAB.BRZ ordered. EDMS EDMS 09:15 09:15 Troponin High Sensitivity+C.LAB.BRZ ordered. EDMS EDMS 09:15 09:15 Chest Single View+RAD.RAD.BRZ ordered. EDMS EDMS
--- NOTE | 2024-12-30 10:10 | ER ---
Nurse's Notes [facility] Name: Leandro Rand Age: 54 yrs Sex: Male : 1970 Arrival Date: 12/30/2024 Time: 08:53 Bed 3 Private MD: Diagnosis: Peripheral edema, anasarca, nausea Presentation: 12/30 09:03 Chief complaint: Low back pain, N/V, and swelling all over x 6 days. Not tolerating hb fluids. On 3LNC at home O2, has been needing to use it more this week. Coronavirus screen: At this time, the client does not indicate any symptoms associated with coronavirus-19. Ebola Screen: No symptoms or risks identified at this time. Initial Sepsis Screen: Does the patient meet any 2 criteria? No. Patient's initial sepsis screen is negative. Does the patient have a suspected source of infection? No. Patient's initial sepsis screen is negative. Risk Assessment: Do you want to hurt yourself or someone else? Patient reports no desire to harm self or others. Onset of symptoms was December 25, 2024. 09:03 Method Of Arrival: Ambulatory hb 09:03 Acuity: FELI 3 hb Historical: - Allergies: 09:05 Farxiga; hb 09:05 Jardiance; hb 09:05 Steglatro; hb - PMHx: 09:05 Congestive heart failure; COVID-19; Diabetes - IDDM; Home Oxygen ; 3-4 L; hb Hyperlipidemia; kidney disease; lung failure; Myocardial infarction; Sleep Apnea; - PSHx: 09:05 Cholecystectomy; heart cath; Left first finger amputation; hb - Immunization history:: Adult Immunizations up to date. - Infectious Disease History:: Denies. - Social history:: Smoking status: Patient/guardian denies using tobacco, the patient reports quitting approximately 10 years ago. Screenin:22 [facility] ED Fall Risk Assessment (Adult) History of falling in the last 3 months, ll1 including since admission No falls in past 3 months (0 pts) Confusion or Disorientation No (0 pts) Intoxicated or Sedated No (0 pts) Impaired Gait Yes (1 pt) Mobility Assist Device Used Yes (1 pt) Altered Elimination Yes (1 pt) Score/Fall Risk Level 3 or more points = High Risk Maintained a safe environment, Hourly rounding (assess needs \T\ fall precautionary measures) done. Abuse screen: Denies threats or abuse. Nutritional screening: No deficits noted. Tuberculosis screening: No symptoms or risk factors identified. Assessment: 09:21 General: Appears uncomfortable, Behavior is calm, cooperative, appropriate for age. ll1 Pain: Complains of pain in back. Neuro: Reports. Cardiovascular: Reports generalized swelling to body. Respiratory: Reports shortness of breath on exertion. GI: Reports bloating, nausea, vomiting. 11:22 Reassessment: Patient appears in no apparent distress at this time. No changes from ld1 previously documented assessment. Patient and/or family updated on plan of care and expected duration. Pain level reassessed. Patient is alert, oriented x 3, equal unlabored respirations, skin warm/dry/pink. GI: Abdomen is round obese. Vital Signs: 09:03 BP 129 / 77; Pulse 101; Resp 18; Temp 99(O); Pulse Ox 88% on R/A; Weight 108.86 kg; hb Height 5 ft. 7 in. ; Pain 8/10; 11:22 BP 131 / 79; Pulse 98; Resp 18; Pulse Ox 93% on 2 lpm NC; ld1 09:03 Body Mass Index 37.59 (108.86 kg, 170.18 cm) hb 09:03 Pain Scale: Adult hb ED Course: 08:55 Patient arrived in ED. ra3 09:02 Gray Israel MD is Attending Physician. sp3 09:05 Triage completed. hb 09:06 Arm band placed on. hb 09:21 Initial lab(s) drawn, by me, sent to lab. Inserted saline lock: 22 gauge in left ll1 antecubital area, using aseptic technique. Blood collected. Flushed with 10 mL NS. 09:32 Liliana Cano, MARILU is Primary Nurse. ld1 09:40 XRAY Chest (1 view) In Process Unspecified. EDMS 11:22 No provider procedures requiring assistance completed. IV discontinued, intact, ld1 bleeding controlled, No redness/swelling at site. 11:23 Patient has correct armband on for positive identification. Placed in gown. Bed in low ld1 position. Call light in reach. Side rails up X2. quality assurance monitor body on. Pulse ox on. NIBP on. Door closed. Noise minimized. Warm blanket given. Administered Medications: 10:12 Drug: Insulin Regular Human IVP 10 units IVP once {Co-Signature: ap3 (Rabia Latif ld1 RN).} Route: IVP; Site: left antecubital; 10:12 Drug: Ondansetron IVP 4 mg IVP once; over 2 minutes Route: IVP; Site: left antecubital; ld1 10:13 Drug: Furosemide IVP 40 mg IVP once; give over 2 minutes Route: IVP; Site: left ld1 antecubital; Medication: 11:23 VIS not applicable for this client. ld1 Outcome: 10:10 Discharge ordered by . sp3 11:22 Discharged to home ambulatory, ld1 11:22 Condition: stable 11:22 Discharge instructions given to patient, Instructed on discharge instructions, follow up and referral plans. Demonstrated understanding of instructions, follow-up care, 11:23 Patient left the ED. ld1 Signatures: Dispatcher [employer] EDMS Sarah Beth Rider RN RN Claribel Holder RN RN 1 Liliana Cano RN RN ld1 Gray Israel MD MD sp3 Charity Valencia ra3 Rabia Latif RN ap3 Corrections: (The following items were deleted from the chart) 09:06 09:03 BP 129 / 77; Pulse 101bpm; Resp 18bpm; Pulse Ox 86% RA; Temp 99F Oral; 108.86 kg; hb Height 5 ft. 7 in.; BMI: 37.5; Pain 8/10, Adult; hb
[2024-12-30] MEDS ORDERED: ONDANSETRON 4 MG/2 ML VIAL ONE (10:11)
[2024-12-30 12:25] VITALS: TEMP 99
[2024-12-30 12:31] VITALS: BP 131/79; O2SAT 93
== END 2024-12-30 11:23 | disposition home or self-care (01) ==
LOC: ER 08:53
DX: R60.1 Generalized edema (principal); R11.0 Nausea; R53.83 Other fatigue; I50.9 Heart failure, unspecified; Z99.81 Dependence on supplemental oxygen
CPT/HCPCS: 85025; 80048; 36415; 83735; 85610; 80076; 84484; 83880; 71045; 96375; 96374; 99285; J1940; J2405; 93005

== ENCOUNTER 2025-03-09 19:15 | Observation (INO) | payer OTHER ==
--- OUTSIDE RECORDS SUMMARY | 2025-03-09 19:27 | XMS REPORT | Continuity of Care Document ---
Author Name Unknown Address [address] [facility] [place] [address] [facility] [place] Address [address] [facility] [place] [address] Care Team Providers Care Wrap Checker Name Role Phone NATACHA SOMERS Primary Care Physician Unav JOHN Rolon Attending Clinician Unav ailable WENDY MORENO Attending Clinician Unavailable Florence Downs RN Attending Clinician [phone] SACHIN MCALLISTER Attending Clinician Unavailable Jody Heard Attending Clinician [phone] Jasmin Russell MD Attending Clinician [phone] Sachin Mcallister DO Attending Clinician [phone] Jeremias Ibarra Attending Clinician UnavailLYUBOV Humphrey Attending Clinician Unavailable MD LUIS ARMANDO Attending Clinician UnavailROHINI Cunningham Attending Clinician Unavailable MARCELLE ZHU Attending Clinician Unavailable MAISHA [facility] Attending Quynh n Unavailable RADHA PALOMARES Attending Clinician Unavailable LAB47 Attending Clinician Unavailable AKBAR JEREZ Attending Clinician Unavailable CHOLO LOVE Attending Clinician Unavailable Murali Zafar MD Attending Clinician [phone] Natasha ARRIETA, Dawna Attending Clinician [phone] Cholo Love MD Attending Clinician [phone] Horace MICHEL, Nata Rae Attending Clinician UnaJON Wiggins Attending Clinician Unavailable Gerson Palomino DO Attending Clinician [phone] Jon Cade MD Attending Clinician + [phone] Lukasz Saul Attending Clinician Unavailable JAXON THOMAS Attending Clinician Unavailable JAI LOPEZ Attending Clinician Unavailable Jai Lopez MD Attending Clinician [phone] [place] Attending Clinician Unavailable Annette Lemus Attending Clinician [phone] GERSON GREENE Attending Clinician Unavaila mahesh Cervantes MD, Dustin Asher Attending Clinician [phone] Gerson Greene MD Attending Clinician [phone] Doctor Unassigned, [place] Attending Clinician U Marlene Snyder Attending Clinician [phone] SACHIN MCALLISTER Admitting Clinician Unavailable Sachin Mcallister DO Admitting Clinician [phone] Jeremias Ibarra Admitting Clinician Unavailabl e [place] Admitting Clinician Unavailable CHOLO LOVE Admitting Clinician Unavailable Cholo Love MD Admitting Clinician [phone] GERSON PALOMINO Admitting Clinician Unavailable Physician, No Primary or Family Admitting Clinic bill Unavailable Payers Payer Name Policy Type Policy Number Effective Date Expirati on Date Source [facility]AY FOCUS 9 [id number] 2024 00:00:00 LIZBETH QUIROS [employer]: 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 94 ON STAND 9 [id number] 2023 00:00:00 Problems Condition Name Condition Details Condition Category Status Onset Date Resolution Date Last Treatment Date Treating Clinician Comments Source Fatigue, unspecifie d type Fatigue, unspecifie d type Disease Active 3-27 00:00: 00 [facility] Immunodefi ciency due to conditions [...] failure Disease Active 04-08 00:00: 00 Maisha Collinsa dougie DM type 2 with diabetic mixed [...] nausea present Disease Active 2021-11 00:00: 00 [facility] Intractabl e vomiting Intractabl e vomiting Disease Active 2021-11 00:00: 00 [facility] Tinea pedis Tinea pedis Disease Active 2021-11 00:00: 00 [facility] Chronic respirator y failure with hypoxia Chronic respirator y failure with hypoxia Disease Active 2021-11 00:00: 00 [facility] Type 2 diabetes mellitus without complicati on, without long-term current use of insulin Type 2 diabetes mellitus without complicati on, without long-term current use of insulin Disease Active 2021-11 0 00:00: 00 [facility] PAF (paroxysma l atrial fibrillati on) PAF (paroxysma l atrial fibrillati on) Disease Active 2021-11 0 00:00: 00 [facility] CHAPARRO (obstructi ve sleep apnea) CHAPARRO (obstructi ve sleep apnea) Disease Active 2021-11 0 00:00: 00 [facility] Chest pain, unspecifie d type Chest pain, unspecifie d type Disease Active 2021-11 0 00:00: 00 [facility] Morbid obesity with body mass index of 40.0-49.9 Morbid obesity with body mass index of 40.0-49.9 Disease Active 2021-11 0 00:00: 00 [facility] Elevated LFTs Elevated LFTs Disease Active 2021-11 0 00:00: 00 [facility] Diabetic ketoacidos is without coma associated with type 2 diabetes mellitus Diabetic ketoacidos is without coma associated with type 2 diabetes mellitus Disease Active 04-21 00:00: 00 [facility] Obesity (BMI 30-39.9) Obesity (BMI 30-39.9) Disease Active 04-21 00:00: 00 [facility] No known active problems No known active problems Disease [facility] Allergies, Adverse Reactions, Alerts Allergy Name Allergy Type Status Severity Reaction(s) Onset Date Inactive Date Treating Clinician Comments Source EMPAGLIF LOZIN DRUG INGREDI Active Other-Cmnt 2021-11 00:00: 00 [facility] Empaglif lozin Propensi ty to adverse reaction s to drug Active Other - See comments 2021-11 00:00: 00 DKA [facility] Empaglif lozin Propensi ty to adverse reaction s Active Other 2021-11 00:00: 00 DKA Maisha Seybold - Externa l No Known Allergie s DA Active U 2021-11 0-24 00:00: 00 [facility] NO KNOWN ALLERGIE S Drug Class Active [facility] Social History Social Habit Start Date Stop Date Quantity Comments Source History of tobacco use Cigarette Smoker [facility] Sexual orientation U [facility] Gender identity Maeve pedersen [place] - External Alcohol intake 2023-04-17 00:00:00 2023-04-17 00:00:00 Ex-drinker (finding) Maisha Farzaneh - External Exposure to SARS-CoV-2 (event) 2022-11-02 00:00:00 2022-11-12 00:35:00 Not sure [facility] Tobacco use and exposure 2022-09-03 00:00:00 2022-09-03 00:00:00 Smokeless tobacco non-user [facility] History of Social function 2021-09-30 00:00:00 2021-09-30 00:00:00 [facility] Sex Assigned At 1970 00:00:00 1970 00:00:00 Maisha Goddardvioleta - External Smoking Status Start Date Stop Date Source Never smoked tobacco Maisha Farzaneh - External Ex-smoker 2022-09-03 00:00:00 2022-09-03 00:00:00 [facility] Medications Ordered Medication Name Filled Medication Name Start Date Stop Date Current Medication? Ordering Clinician Indication Dosage Frequency Signature (SIG) Comments Components Source furosemide (LASIX) injection 40 mg 02-26 19:15: 00 02-26 19:06 :00 No 40mg 40 mg, Slow IV Push, ONCE, 1 dose, On 02/27/24 at 1415, Routine [facility] aspirin 81 mg chewable tablet 02-26 17:45: 47 Yes 81mg Take 1 tablet by mouth daily. [facility] spironolact one 25 mg tablet 02-26 17:45: 47 Yes 25mg Take 1 tablet by mouth 2 (two) times daily. [facility] omega-3-dha -epa-dpa-fi sh oil (OMEGA-3 2100) 1,050-1,200 mg Cap 02-26 17:45: 47 Yes Take by mouth 2 (two) times daily. [facility] METOPROLOL SUCCINATE ORAL 02-26 17:45: 47 Yes 50mg Take 50 mg by mouth 2 (two) times daily. [facility] pantoprazol e 40 mg EC tablet 02-26 17:45: 47 Yes 40mg Take 1 tablet by mouth 2 (two) times daily. [facility] insulin detemir (LEVEMIR U-100 INSULIN SC) 02-26 17:45: 47 Yes 45U inject 45 Units under the skin 2 (two) times daily. [facility] atorvastati n (LIPITOR) 40 mg tablet 02-26 17:45: 47 Yes 40mg Take 1 tablet by mouth at bedtime. [facility] glipiZIDE 5 mg tablet 02-26 17:45: 47 Yes 5mg Take 1 tablet by mouth daily. [facility] KCL (KLOR-CON M20) tablet 40 mEq 02-26 14:00: 00 Yes 40meq 40 mEq, Oral, DAILY, First dose on 02/27/24 at 0900, Until Discontinu ed, Routine [facility] metoclopram nixon HCl (REGLAN) tablet 5 mg 02-26 12:30: 00 Yes 5mg 5 mg, Oral, AC, First dose on 02/27/24 at 0730, Until Discontinu ed, Routine [facility] metoclopram nixon HCl 5 mg tablet 02-26 00:00: 00 03-06 04:59 :00 No [id number] 5mg Take 1 tablet by mouth every 6 (six) hours as needed for Nausea and Vomiting (N/V) for up to 7 days. [facility] KCL 20 mEq tablet 02-26 00:00: 00 03-02 04:59 :00 No [id number] 40meq Take 2 tablets by mouth daily for 3 days. [facility] dicyclomine 10 mg capsule 02-26 00:00: 00 03-02 04:59 :00 No [id number] 10mg Take 1 capsule by mouth 4 (four) times daily for 3 days. [facility] acetaminoph en (TYLENOL) tablet 650 mg 02-25 22:21: 08 Yes 650mg 650 mg, Oral, Q6HPRN, Starting on Thu02/26/24 at 1721, Until Discontinu ed, Routine, Pain (scale 4-6) [facility] KCL (KLOR-CON M20) tablet 40 mEq 02-25 17:00: 00 02-25 21:45 :00 No 40meq 40 mEq, Oral, Q4H, 2 doses, First dose on Thu02/26/24 at 1200, Last dose on Thu02/26/24 at 1600, Routine [facility] dicyclomine (BENTYL) capsule 10 mg 02-24 17:00: 00 Yes 10mg 10 mg, Oral, QID, First dose on Thu02/25/24 at 1200, Until Discontinu ed, Routine [facility] KCL (KLOR-CON M20) tablet 20 mEq 02-24 15:00: 00 02-24 17:15 :00 No 20meq 20 mEq, Oral, Q2H, 2 doses, First dose on Thu02/25/24 at 1000, Last dose on Thu02/25/24 at 1200, Routine [facility] metoprolol tartrate (LOPRESSOR) tablet 25 mg 02-24 14:00: 00 Yes 25mg 25 mg, Oral, BID, First dose on Thu02/25/24 at 0900, Until Discontinu ed, Routine [facility] enoxaparin (LOVENOX) injection 40 mg 02-24 14:00: 00 Yes 40mg 40 mg, Subcutaneo us, DAILY, First dose on Thu02/25/24 at 0900, Until Discontinu ed, Routine [facility] glipiZIDE (GLUCOTROL) tablet 5 mg 02-24 14:00: 00 Yes 5mg 5 mg, Oral, DAILY, First dose on Thu02/25/24 at 0900, Until Discontinu ed, Routine [facility] aspirin chewable tablet 81 mg 02-24 14:00: 00 Yes 81mg 81 mg, Oral, DAILY, First dose on Thu02/25/24 at 0900, Until Discontinu ed, Routine [facility] metoclopram nixon HCl (REGLAN) injection 10 mg 02-24 05:00: 00 02-25 22:23 :08 No 10mg 10 mg, Slow IV Push, Q6H, First dose on Thu02/25/24 at 0000, Until Discontinu ed, Routine [facility] atorvastati n (LIPITOR) tablet 40 mg 02-24 02:00: 00 Yes 40mg 40 mg, Oral, QHS, First dose on Thu02/24/24 at 2100, Until Discontinu ed, Routine [facility] pantoprazol e (PROTONIX) EC tablet 40 mg 02-24 01:00: 00 Yes 40mg 40 mg, Oral, BID, First dose on Thu02/24/24 at 2000, Until Discontinu ed, Routine [facility] insulin detemir U-100 (LEVEMIR U-100 INSULIN) injection 45 Units 02-24 01:00: 00 Yes 45U 45 Units, Subcutaneo us, BID, First dose on Thu02/24/24 at 2000, Until Discontinu ed
Rest ricted - To be dispensed only to: Continuati on from home [facility] glucagon (GLUCAGEN DIAGNOSTIC KIT) injection 1 mg 02-23 20:27: 21 Yes 1mg 1 mg, Intramuscu lar, PRN, Starting on Thu02/24/24 at 1527, Until Discontinu ed, [place], Blood Glucose < or = 70 mg/dL and patient is NPO, unable to swallow or has mental changes. [facility] HYDROcodone -acetaminop hen (NORCO) 10-325 mg tablet 1 tablet 02-23 20:12: 43 02-25 22:21 :00 No 1{tbl} 1 tablet, Oral, Q6HPRN, Starting on Thu02/24/24 at 1512, Until Thu02/26/24 at 1721, Routine, Pain (scale 7-10) [facility] Sliding Scale Insulin-Reg ular 02-23 16:30: 00 Yes Subcutaneo us, AC+HS, First dose on Thu02/24/24 at 1130, Until Discontinu ed, Routine [facility] lactated ringers IV infusion 1,000 mL 02-23 14:00: 00 02-24 20:00 :27 No 1000mL at 125 mL/hr, 1,000 mL, IV Infusion, CONTINUOUS , Starting on Thu02/24/24 at 0900, Until Thu02/25/24 at 1500, Routine [facility] glucagon (GLUCAGEN DIAGNOSTIC KIT) injection 1 mg 02-23 12:47: 50 Yes 1mg 1 mg, Intramuscu lar, PRN, Starting on Thu02/24/24 at 0747, Until Discontinu ed, [place], Blood Glucose < or = 70 mg/dL and patient is NPO, unable to swallow or has mental changes. [facility] dextrose 50 % in water (D50W) injection 25 mL 02-23 12:47: 50 Yes 25mL 25 mL, Slow IV Push, PRN, Starting on Thu02/24/24 at 0747, Until Discontinu ed, [place], Blood Glucose < or = 70 mg/dL and patient is NPO, unable to swallow or has mental status changes. [facility] proMETHazin e (PHENERGAN) 25 mg in NS 50 mL IV piggyback (CNR) 02-23 12:47: 00 Yes 25mg 25 mg, IV Piggyback, at 200 mL/hr Administer over 15 Minutes, Q4HPRN, Starting on Thu02/24/24 at 0747, Until Discontinu ed, Routine, Nausea and Vomiting (N/V) [facility] ondansetron (ZOFRAN (PF)) injection 4 mg 02-23 12:45: 00 02-23 12:35 :00 No 4mg 4 mg, Slow IV Push, ONCE, 1 dose, On Thu02/24/24 at 0745, [place] [facility] iopamidol (ISOVUE 370-500 mL) injection 100 mL 02-23 09:45: 00 02-23 09:45 :00 No [id number] 100mL 100 mL, Intravenou s, ONCE, 1 dose, On Thu02/24/24 at 0445, Routine [facility] NaCl 0.9% (NS) bolus infusion 500 mL 02-23 08:00: 00 02-23 09:46 :00 No 500mL at 999 mL/hr, 500 mL, IV Infusion, ONCE, 1 dose, On Thu02/24/24 at 0300, [place] [facility] potassium chloride in water 10 mEq/100 mL RTU 10 mEq 02-23 07:46: 00 02-23 09:17 :00 No 10meq 10 mEq, IV Piggyback, ONCE, 1 dose, On Thu02/24/24 at 0300, Administer over 60 Minutes, 100 mL [facility] FENTanyl PF (SUBLIMAZE (PF)) injection 50 mcg 02-23 07:45: 00 02-23 07:29 :00 No 50ug 50 mcg, Slow IV Push, ONCE, 1 dose, On Thu02/24/24 at 0245, Routine [facility] ondansetron (ZOFRAN (PF)) injection 4 mg 02-23 07:00: 00 02-23 07:29 :00 No 4mg 4 mg, Slow IV Push, ONCE, 1 dose, On Thu02/24/24 at 0200, [place] [facility] NaCl 0.9% (NS) bolus infusion 500 mL 02-23 07:00: 00 02-23 07:55 :00 No 500mL at 999 mL/hr, 500 mL, IV Infusion, ONCE, 1 dose, On Thu02/24/24 at 0200, STAT [facility] sodium chloride (NS) injection 5 mL 02-23 06:01: 43 Yes 5mL 5 mL, Intravenou s, PRN, Starting on Thu02/24/24 at 0101, Until Discontinu ed, Routine, IV line flushing [facility] Aspirin 81 MG oral Chewable Tablet 04-17 08:32: 54 Yes 81mg Take 1 tablet (81 mg total) by mouth daily Maisha constantino OZEMPIC (0.25 or 0.5 mg/dose) 2 mg/3 mL SQ Solution Pen-Injecto r 04-17 00:00: 00 Yes [id number] 3 .25mg Inject 0.25 mg into the skin once a week If tolerated after 4 weeks, increase to 0.5mg weekly Maisha constantino Metformin HCl 1000 MG oral Tablet 04-17 00:00: 00 Yes [id number] 3 1000mg Take 1 tablet (1,000 mg total) by mouth in the morning and 1 tablet (1,000 mg total) in the evening. Take with meals. Maisha constantino Atorvastati n Calcium 40 MG oral Tablet 04-17 00:00: 00 Yes [id number] 3 40mg Take 1 tablet (40 mg total) by mouth daily Maisha constantino Insulin Aspart (NovoLOG FlexPen) 100 UNIT/ML subcutaneou s Solution Pen-injecto r 04-17 00:00: 00 Yes [id number] 3 Use as directed three times daily, inject 24 units TID plus sliding scale. Max daily dose 80 units Maisha constantino Insulin Detemir (Levemir FlexPen) 100 UNIT/ML subcutaneou s Solution Pen-injecto r 04-17 00:00: 00 Yes [id number] 3 Inject 35 units twice daily Maisha constantino Insulin Detemir (Levemir) 100 UNIT/ML subcutaneou s Solution 04-17 00:00: 00 04-17 00:00 :00 No [id number] 3 Inject 35 units twice dominguez Maisha constantino Insulin Pen Needle 31G X 5 MM does not apply [facility] 04-17 00:00: 00 04-17 00:00 :00 No [id number] 3 Inject insulin 5 times daily Maisha constantino Budesonide, Inhalation, 0.5 MG/2ML inhalation Suspension 04-14 00:00: 00 Yes [id number] .5mg Take 2 mL (0.5 mg total) by nebulizati on 2 times daily Maisha constantino OZEMPIC (0.25 or 0.5 mg/dose) 2 mg/3 mL SQ Solution Pen-Injecto r 04-13 00:00: 00 04-17 00:00 :00 No [id number] 3 .25mg Inject 0.25 mg into the [...] inhalation Inhalant Solution 04-08 00:00: 00 Yes [id number] 1.25mg Q.25D Take 3 mL (1.25 mg total) by nebulizati on every 6 hours as needed for wheezing Maisha constantino Amoxicillin -Pot Clavulanate 875-125 MG oral Tablet 04-08 00:00: 00 Yes [id number] 1{tbl} Take 1 tablet by mouth 2 times daily Maisha constantino Furosemide (Lasix) 20 MG oral Tablet 04-08 00:00: 00 Yes [id number] 20mg Take 1 tablet (20 mg total) by mouth daily Maisha constantino Metoprolol Succinate 25 MG oral Capsule ER 24 Hour Sprinkle 04-08 00:00: 00 Yes [id number] 25mg Take 25 mg by mouth daily Maisha constantino Lisinopril 5 MG oral Tablet 04-08 00:00: 00 Yes [id number] 5mg Take 1 tablet (5 mg total) by mouth daily Maisha constantino Potassium Chloride Lanie ER 20 MEQ oral Tab CR tablet 04-08 00:00: 00 Yes [id number] 20meq Take 1 tablet (20 mEq total) by mouth daily Maisha constantino Metoprolol Succinate 25 MG oral TABLET SR 24 HR 04-08 00:00: 00 Yes 25mg Take 1 tablet (25 mg total) by mouth daily Maisha constantino Budesonide, Inhalation, 0.5 MG/2ML inhalation Suspension 04-08 00:00: 00 Yes [id number] .5mg Take 2 mL (0.5 mg total) [...] 04-08 00:00: 00 04-17 00:00 :00 No [id number] 3 Inject 30 units daily. Increase dosage by 2 units every 2 days until fasting glucose less than 140 or better. Max daily dose of 60 units Maisha constantino Insulin Aspart (NovoLOG FlexPen) 100 UNIT/ML subcutaneou s Solution Pen-injecto r 04-08 00:00: 00 04-17 00:00 :00 No [id number] 3 Use as directed three times daily, inject 10 units TID plus sliding scale. Max daily dose 60 units Maisha Collinsa dougie predniSONE (DELTASONE) 10 MG oral tablet 04-08 00:00: 00 04-14 04:59 :00 No [id number] 40mg Take 4 tablets (40 mg total) [...] mg total) by mouth daily Maisha constantino [place]-3-aci d Ethyl Esters 1 g oral Capsule [...] 81mg Take 81 mg by mouth daily. [facility] spironolact one 25 mg tablet 2021-11 15:36: 13 Yes 25mg Take 25 mg by mouth 2 (two) times daily. [facility] omega-3-dha -epa-dpa-fi sh oil (OMEGA-3 2100) 1,050-1,200 mg Cap 2021-11 15:36: 13 Yes Take by mouth 2 (two) times daily. [facility] METOPROLOL SUCCINATE ORAL 2021-11 15:36: 13 Yes 50mg Take 50 mg by mouth 2 (two) times daily. [facility] pantoprazol e 40 mg EC tablet 2021-11 15:36: 13 Yes 40mg Take 40 mg by mouth 2 (two) times daily. [facility] atorvastati n 20 mg tablet 2021-11 11:58: 50 11-12 00:00 :00 No 40mg Take 40 mg by mouth at bedtime. [facility] famotidine 40 mg tablet 2021-11 11:58: 50 11-12 00:00 :00 No 40mg Take 40 mg by mouth daily. [facility] metoclopram nixon HCl (REGLAN) injection 10 mg 2021-11 19:45: 00 11-13 17:59 :00 No 10mg 10 mg, Slow IV Push, Q6H, 8 doses, First dose on Thu11/11/22 at 1345, Last dose on Thu11/13/22 at 0600, Routine [facility] potassium chloride in water 10 mEq/100 mL RTU 10 mEq 2021-11 15:00: 00 11-11 17:25 :00 No 10meq 10 mEq, IV Piggyback, Q1H, 2 doses, First dose on Thu11/11/22 at 0900, Last dose on Thu11/11/22 at 1000, Administer over 60 Minutes, 100 mL [facility] KCL (KLOR-CON M20) tablet 40 mEq 2021-11 14:15: 00 11-11 19:57 :00 No 40meq 40 mEq, Oral, Q2H, 3 doses, First dose on Thu11/11/22 at 0815, Last dose on Thu11/11/22 at 1200, Routine [facility] pantoprazol e (PROTONIX) EC tablet 40 mg 2021-11 02:00: 00 Yes 40mg 40 mg, Oral, BID, First dose on Thu11/10/22 at 2000, Until Discontinu ed, Routine [facility] potassium chloride in water 10 mEq/100 mL RTU 10 mEq 2021-11 23:45: 00 11-11 01:05 :00 No 10meq 10 mEq, IV Piggyback, ONCE, 1 dose, On Thu11/10/22 at 1745, Administer over 60 Minutes, 100 mL [facility] potassium chloride in water 10 mEq/100 mL RTU 10 mEq 2021-11 22:00: 00 11-10 22:59 :00 No 10meq 10 mEq, IV Piggyback, ONCE, 1 dose, On Thu11/10/22 at 1600, Administer over 60 Minutes, 100 mL [facility] potassium chloride in water 10 mEq/100 mL RTU 10 mEq 2021-11 17:00: 00 11-10 20:59 :00 No 10meq 10 mEq, IV Piggyback, Q1H, 4 doses, First dose on Thu11/10/22 at 1100, Last dose on Thu11/10/22 at 1400, Administer over 60 Minutes, 100 mL [facility] K[facility] (KLOR-CON M20) tablet 40 mEq 2021-11 15:45: 00 11-10 14:57 :00 No 40meq 40 mEq, Oral, ONCE, 1 dose, On Thu11/10/22 at 0945, Routine [facility] insulin glargine (LANTUS U-100) injection 10 Units 2021-11 15:00: 00 Yes 10U 10 Units, Subcutaneo us, DAILY, First dose on Thu11/10/22 at 0900, Until Discontinu ed, Routine [facility] aspirin chewable tablet 81 mg 2021-11 15:00: 00 Yes 81mg 81 mg, Oral, DAILY, First dose on Thu11/10/22 at 0900, Until Discontinu ed, Routine [facility] Sliding Scale Insulin - Lispro (HumaLOG) + Fsbg Testing 2021-11 14:00: 00 Yes Subcutaneo us, TID MEALS+HS, First dose (after last modificati on) on Thu11/10/22 at 0800, Until Discontinu ed, Routine [facility] metoprolol succinate XL (TOPROL XL) tablet 50 mg 2021-11 14:00: 00 Yes 50mg 50 mg, Oral, BID, First dose on Thu11/10/22 at 0800, Until Discontinu ed [facility] apixaban (ELIQUIS) tablet 5 mg 2021-11 14:00: 00 Yes [id number] 5mg 5 mg, Oral, BID, First dose on Thu11/10/22 at 0800, Until Discontinu ed, Routine
Indicatio ns: Non-Valvul ar Atrial Fibrillati on [facility] pantoprazol e (PROTONIX) injection 40 mg 2021-11 14:00: 00 11-10 21:04 :12 No 40mg 40 mg, Slow IV Push, Q12H, First dose on Thu11/10/22 at 0800, Until Discontinu ed [facility] spironolact one (ALDACTONE) tablet 25 mg 2021-11 14:00: 00 11-10 21:02 :33 No 25mg 25 mg, Oral, BID, First dose on Thu11/10/22 at 0800, Until Discontinu ed, Routine [facility] glucagon (GLUCAGEN DIAGNOSTIC KIT) injection 1 mg 2021-11 07:13: 25 Yes 1mg 1 mg, Intramuscu lar, PRN, Starting on Thu11/10/22 at 0113, Until Discontinu ed, [place], Blood Glucose < or = 70 mg/dL and patient is unable to swallow or has mental changes. [facility] dextrose 50 % in water (D50W) injection 25 mL 2021-11 07:13: 25 Yes 25mL 25 mL, Slow IV Push, PRN, Starting on Thu11/10/22 at 0113, Until Discontinu ed, [place], Blood Glucose < or = 70 mg/dL and patient is unable to swallow or has mental status changes. [facility] ondansetron (ZOFRAN (PF)) injection 4 mg 2021-11 07:13: 15 11-11 19:30 :03 No 4mg 4 mg, Slow IV Push, Q6HPRN, Starting on Thu11/10/22 at 0113, Until Thu11/11/22 at 1330, Routine, Nausea and Vomiting (N/V) [facility] HYDROcodone -acetaminop hen (NORCO) 10-325 mg tablet 1 tablet 2021-11 07:13: 12 Yes 1{tbl} 1 tablet, Oral, Q6HPRN, Starting on Thu11/10/22 at 0113, Until Discontinu ed, Routine, Pain (scale 7-10) [facility] acetaminoph en (TYLENOL) tablet 650 mg 2021-11 07:13: 06 Yes 650mg 650 mg, Oral, Q6HPRN, Starting on Thu11/10/22 at 0113, Until Discontinu ed, Routine, Pain (scale 1-3) [facility] potassium chloride in water 10 mEq/100 mL RTU 10 mEq 2021-11 06:00: 00 11-10 06:45 :00 No 10meq 10 mEq, IV Piggyback, ONCE, 1 dose, On Thu11/10/22 at 0000, Administer over 60 Minutes, 100 mL [facility] pantoprazol e (PROTONIX) injection 40 mg 2021-11 04:45: 00 11-10 05:14 :00 No 40mg 40 mg, Slow IV Push, ONCE, 1 dose, On Thu11/09/22 at 2245 [facility] NaCl 0.9% (NS) bolus infusion 1,000 mL 2021-11 04:15: 00 11-10 04:00 :00 No 1000mL at 999 mL/hr, 1,000 mL, IV Infusion, ONCE, 1 dose, On Thu11/09/22 at 2215, STAT [facility] metoclopram nixon HCl (REGLAN) injection 10 mg 2021-11 03:15: 00 11-10 03:54 :00 No 10mg 10 mg, Slow IV Push, ONCE, 1 dose, On 11/09/22 at 2115, [place] [facility] aspirin 81 mg chewable tablet 2021-11 01:13: 48 Yes 81mg Take 81 mg by mouth daily. [facility] spironolact one 25 mg tablet 2021-11 01:13: 48 Yes 25mg Take 25 mg by mouth 2 (two) times daily. [facility] omega-3-dha -epa-dpa-fi sh oil (OMEGA-3 2100) 1,050-1,200 mg Cap 2021-11 01:13: 48 Yes Take by mouth 2 (two) times daily. [facility] METOPROLOL SUCCINATE ORAL 2021-11 01:13: 48 Yes 50mg Take 50 mg by mouth 2 (two) times daily. [facility] atorvastati n 20 mg tablet 2021-11 01:13: 48 Yes 40mg Take 40 mg by mouth at bedtime. [facility] pantoprazol e 40 mg EC tablet 2021-11 01:13: 48 Yes 40mg Take 40 mg by mouth 2 (two) times daily. [facility] famotidine 40 mg tablet 2021-11 01:13: 48 Yes 40mg Take 40 mg by mouth daily. [facility] insulin glargine (LANTUS U-100) injection 10 Units 2021-11 15:00: 00 Yes 10U 10 Units, Subcutaneo us, DAILY, First dose (after last modificati on) on 11/08/22 at 0900, Until Discontinu ed, Routine [facility] insulin glargine 100 unit/mL injection 2021-11 00:00: 00 02-23 00:00 :00 No [id number] 10U inject 10 Units under the skin daily. If not eating or if blood sugar is between 80 and 120 give HALF the dose. If blood sugar less than 80: Eat a meal and recheck. Give half dose of insulin once blood sugar over 120. [facility] insulin lispro (human) (HumaLOG U-100) injection 3 Units 2021-11 23:00: 00 Yes 3U 3 Units, Subcutaneo us, TID MEALS, First dose (after last modificati on) on Thu11/07/22 at 1700, Until Discontinu ed, Routine [facility] aspirin 81 mg chewable tablet 2021-11 17:37: 57 Yes 81mg Take 81 mg by mouth daily. [facility] spironolact one 25 mg tablet 2021-11 17:37: 57 Yes 25mg Take 25 mg by mouth 2 (two) times daily. [facility] omega-3-dha -epa-dpa-fi sh oil (OMEGA-3 2100) 1,050-1,200 mg Cap 2021-11 17:37: 57 Yes Take by mouth 2 (two) times daily. [facility] METOPROLOL SUCCINATE ORAL 2021-11 17:37: 57 Yes 50mg Take 50 mg by mouth 2 (two) times daily. [facility] atorvastati n 20 mg tablet 2021-11 17:37: 57 Yes 40mg Take 40 mg by mouth at bedtime. [facility] pantoprazol e 40 mg EC tablet 2021-11 17:37: 57 Yes 40mg Take 40 mg by mouth 2 (two) times daily. [facility] sodium phosphate 30 mmol in NaCl 0.9% (NS) 250 mL piggyback 2021-11 17:30: 00 11-07 21:49 :00 No 30mmol 30 mmol, IV Piggyback, ONCE, 1 dose, On Thu11/07/22 at 1130, Administer over 4 Hours, 250 mL [facility] apixaban (ELIQUIS) tablet 5 mg 2021-11 15:30: 00 Yes 5mg 5 mg, Oral, BID, First dose on Thu11/07/22 at 0930, Until Discontinu ed, Routine
Indicatio ns: Non-Valvul ar Atrial Fibrillati on [facility] aspirin chewable tablet 81 mg 2021-11 15:00: 00 Yes 81mg 81 mg, Oral, DAILY, First dose on Thu11/07/22 at 0900, Until Discontinu ed, Routine [facility] KCL (KLOR-CON M20) tablet 40 mEq 2021-11 15:00: 00 11-07 17:13 :00 No 40meq 40 mEq, Oral, ONCE, 1 dose, On Thu11/07/22 at 0900, Routine [facility] insulin regular, human (HUMULIN R U-500, CONC, INSULIN SC) 2021-11 14:59: 33 11-07 00:00 :00 No 35U inject 35 Units under the skin 2 (two) times daily. [facility] tirzepatide 5 mg/0.5 mL subcutaneou s injection 2021-11 14:59: 33 11-07 00:00 :00 No 5mg inject 5 mg under the skin weekly. [facility] metoprolol succinate XL (TOPROL XL) tablet 50 mg 2021-11 14:00: 00 Yes 50mg 50 mg, Oral, BID, First dose on Thu11/07/22 at 0800, Until Discontinu ed, Routine [facility] atorvastati n (LIPITOR) tablet 40 mg 2021-11 03:00: 00 Yes 40mg 40 mg, Oral, QHS, First dose on Thu11/06/22 at 2100, Until Discontinu ed, Routine [facility] metFORMIN 1,000 mg tablet 2021-11 00:00: 00 Yes [id number] 1000mg Take 1 tablet by mouth 2 (two) times daily with meals. [facility] insulin regular human (HUMULIN R) 500 unit/mL injection 2021-11 00:00: 00 Yes [id number] Do not take your scheduled regular insulin. [...] meal and cover again with sliding scale [facility] apixaban 5 mg tablet 2021-11 00:00: 00 02-23 00:00 :00 No [id number] 5mg Take 1 tablet by mouth 2 (two) times daily. Indication s: atrial fibrillati on [facility] tirzepatide (MOUNJARO) 7.5 mg/0.5 mL PnIj 2021-11 00:00: 00 11-12 00:00 :00 No [id number] 7.5mg inject 7.5 mg under the skin weekly. [facility] Sliding Scale Insulin - Lispro (HumaLOG) + Fsbg Testing 2021-11 23:00: 00 Yes Subcutaneo us, TID MEALS+HS, First dose on Thu11/06/22 at 1700, Until Discontinu ed, Routine [facility] enoxaparin (LOVENOX) injection 40 mg 2021-11 23:00: 00 11-07 15:23 :13 No 40mg 40 mg, Subcutaneo us, DAILY, First dose on Thu11/06/22 at 1700, Until Discontinu ed, Routine [facility] D5W-LR IV infusion 1,000 mL 2021-11 22:32: 00 Yes 1000mL at 150 mL/hr, IV Infusion, CONTINUOUS , Starting on Thu11/06/22 at 1645, Until Discontinu ed, Routine [facility] glucagon (GLUCAGEN DIAGNOSTIC KIT) injection 1 mg 2021-11 22:00: 35 Yes 1mg 1 mg, Intramuscu lar, PRN, Starting on Thu11/06/22 at 1600, Until Discontinu ed, [place], Blood Glucose < or = 70 mg/dL and patient is unable to swallow or has mental changes. [facility] dextrose 50 % in water (D50W) injection 25 mL 2021-11 22:00: 35 Yes 25mL 25 mL, Slow IV Push, PRN, Starting on Thu11/06/22 at 1600, Until Discontinu ed, [place], Blood Glucose < or = 70 mg/dL and patient is unable to swallow or has mental status changes. [facility] sodium bicarbonate 8.4 % (1 mEq/mL) injection 50 mEq 2021-11 16:15: 00 11-06 16:16 :00 No 50meq 50 mEq, Slow IV Push, ONCE, 1 dose, On Thu11/06/22 at 1015, Routine [facility] insulin glargine (LANTUS U-100) injection 20 Units 2021-11 15:30: 00 11-07 20:55 :57 No 20U 20 Units, Subcutaneo us, DAILY, First dose on Thu11/06/22 at 0930, Until Discontinu ed, Routine [facility] clotrimazol e (LOTRIMIN) 1 % topical cream 2021-11 15:00: 00 Yes Topical, DAILY, First dose on Thu11/06/22 at 0900, Until Discontinu ed, Routine [facility] morpHINE (2 mg/mL) injection 2 mg 2021-11 14:51: 00 11-06 16:16 :00 No 2mg 2 mg, Slow IV Push, ONCE, 1 dose, On Thu11/06/22 at 0900, Routine [facility] empaglifloz in-metformi n (SYNJARDY) 12.5-1,000 mg Tab 2021-11 14:36: 52 11-06 00:00 :00 No 2{tbl} Take 2 tablets by mouth 2 (two) times daily. [facility] D5W-LR IV infusion 1,000 mL 2021-11 12:45: 00 11-06 21:59 :42 No 1000mL at 200 mL/hr, IV Infusion, CONTINUOUS , Starting on Thu11/06/22 at 0645, Until Barbra 11/06/22 at 1559, Routine [facility] ondansetron (ZOFRAN (PF)) injection 4 mg 2021-11 11:51: 01 Yes 4mg 4 mg, Slow IV Push, Q6HPRN, Starting on Thu11/06/22 at 0551, Until Discontinu ed, [place], Nausea and Vomiting (N/V) [facility] acetaminoph en (TYLENOL) tablet 650 mg 2021-11 11:39: 11 Yes 650mg 650 mg, Oral, Q6HPRN, Starting on Thu11/06/22 at 0539, Until Discontinu ed, Routine, Pain (scale 4-6), Pain (scale 1-3), headache [facility] NaCl 0.9% (NS) bolus infusion 1,000 mL 2021-11 07:30: 00 11-06 08:22 :00 No 1000mL at 999 mL/hr, 1,000 mL, IV Infusion, ONCE, 1 dose, On Thu11/06/22 at 0130, STAT [facility] morpHINE (2 mg/mL) injection 4 mg 2021-11 07:15: 00 11-06 07:16 :00 No 4mg 4 mg, Slow IV Push, ONCE, 1 dose, On Thu11/06/22 at 0115, Routine [facility] iopamidol (ISOVUE 370-500 mL) injection 150 mL 2021-11 07:00: 00 11-06 07:00 :00 No [id number] 150mL 150 mL, Intravenou s, ONCE, 1 dose, On Thu11/06/22 at 0100, Routine [facility] NaCl 0.45% (1/2NS) 1000 mL + KCL 20 mEq 2021-11 06:45: 00 11-06 11:36 :49 No 1000mL [facility] D5W 0.45% NaCl (1/2NS) 1 L + KCL 20 mEq 2021-11 06:43: 25 11-06 11:36 :49 No IV Infusion, at 200 mL/hr, PRN - SEE INSTRUCTIO NS, Starting on Thu11/06/22 at 0043, Until Thu11/06/22 at 0536, [place], Blood glucose control [facility] acetaminoph en (TYLENOL) tablet 975 mg 2021-11 05:30: 00 11-06 04:58 :00 No 975mg 975 mg, Oral, ONCE, 1 dose, On Thu11/05/22 at 2330, [facility] (ZOFRAN (PF)) [facility] 4 mg 2021-11 05:30: 00 11-06 04:57 :00 No 4mg 4 mg, Slow IV Push, ONCE, 1 dose, On Thu11/05/22 at 2330, [facility] sulfur hexafluorid e microsphr (LUMASON) injection 5 mL 2021-11 17:15: 00 09-04 17:15 :00 No [id number] 5mL 5 mL, Intravenou s, ONCE, 1 dose, On Barbra 09/04/22 at 1215, Routine
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 [facility] empaglifloz in-metformi n (SYNJARDY) 12.5-1,000 mg Tab 2021-11 14:37: 28 Yes 2{tbl} Take 2 tablets by mouth 2 (two) times daily. [facility] spironolact one 25 mg tablet 2021-11 14:37: 28 Yes 25mg Take 25 mg by mouth 2 (two) times daily. [facility] omega-3-dha -epa-dpa-fi sh oil (OMEGA-3 2100) 1,050-1,200 mg Cap 2021-11 14:37: 28 Yes Take by mouth 2 (two) times daily. [facility] METOPROLOL SUCCINATE ORAL 2021-11 14:37: 28 Yes 50mg Take 50 mg by mouth 2 (two) times daily. [facility] atorvastati n 20 mg tablet 2021-11 14:37: 28 Yes 40mg Take 40 mg by mouth at bedtime. [facility] pantoprazol e 40 mg EC tablet 2021-11 14:37: 28 Yes 40mg Take 40 mg by mouth 2 (two) times daily. [facility] insulin regular, human (HUMULIN R U-500, CONC, INSULIN SC) 2021-11 14:37: 28 Yes 35U inject 35 Units under the skin 2 (two) times daily. [facility] tirzepatide 5 mg/0.5 mL subcutaneou s injection 2021-11 14:37: 28 Yes 5mg inject 5 mg under the skin weekly. [facility] SITagliptin (JANUVIA) tablet 50 mg 2021-11 14:00: 00 Yes 50mg 50 mg, Oral, DAILY, First dose on Thu09/04/22 at 0900, Until Discontinu ed, Routine [facility] insulin glargineheydi m.rec.anlog (TOTRE SOLOSTAR U-300 INSULIN SC) 2021-11 13:06: 04 09-04 00:00 :00 No inject under the skin. [facility] apixaban (ELIQUIS) 5 mg tablet 2021-11 13:06: 04 09-04 00:00 :00 No 5mg Take 5 mg by mouth 2 (two) times daily. [facility] enoxaparin (LOVENOX) injection 40 mg 2021-11 05:45: 00 Yes 40mg 40 mg, Subcutaneo us, Q24H, First dose on Thu09/04/22 at 0045, Until Discontinu ed, [facility] senn[facility] (SENOKOT[facility] tablet 8.6 mg 2021-11 04:45: 00 Yes 8.6mg 8.6 mg, Oral, BID, First dose on Thu09/03/22 at 2345, Until Discontinu ed, Routine [facility] docusate (COLACE) capsule 100 mg 2021-11 04:45: 00 Yes 100mg 100 mg, Oral, BID, First dose on Thu09/03/22 at 2345, Until Discontinu ed, Routine [facility] aspirin chewable tablet 81 mg 2021-11 0-06 04:45: 00 Yes 81mg 81 mg, Oral, QAM WITH BREAKFAST, First dose on Thu09/03/22 at 2345, Until Discontinu ed, Routine [facility] sucralfate (CARAFATE) 100 mg/mL suspension 1,000 mg 2021-11 0 04:45: 00 Yes 1g 1,000 mg (1 g), Oral, AC+HS, First dose on Thu09/03/22 at 2345, Until Discontinu ed, Routine [facility] pantoprazol e (PROTONIX) injection 40 mg 2021-11 0 04:45: 00 Yes 40mg 40 mg, Slow IV Push, Q12H, First dose on Thu09/03/22 at 2345, Until Discontinu ed [facility] metoprolol tartrate (LOPRESSOR) tablet 50 mg 2021-11 0 04:45: 00 Yes 50mg 50 mg, Oral, BID, First dose on Thu09/03/22 at 2345, Until Discontinu ed, Routine [facility] insulin NPH and regular human 70-30 (70-30 U-100 INSULIN) 100 unit/mL (70-30) injection 35 Units 2021-11 006 04:45: 00 Yes 35U 35 Units, Subcutaneo us, BIDAC, First dose on Thu09/03/22 at 2345, Until Discontinu ed, Routine [facility] atorvastati n (LIPITOR) tablet 40 mg 2021-11 0 04:45: 00 Yes 40mg 40 mg, Oral, QHS, First dose on Thu09/03/22 at 2345, Until Discontinu ed, Routine [facility] furosemide (LASIX) injection 20 mg 2021-11 0-06 04:45: 00 09-04 13:50 :16 No 20mg 20 mg, IV Push, Q8H, First dose on Thu09/03/22 at 2345, Until Discontinu ed, [place] [facility] ondansetron (ZOFRAN (PF)) injection 4 mg 2021-11 0 04:33: 54 Yes 4mg 4 mg, Slow IV Push, Q6HPRN, Starting on Thu09/03/22 at 2333, Until Discontinu ed, Routine, Nausea and Vomiting (N/V) [facility] Sliding Scale Insulin - Lispro (HumaLOG) + Fsbg Testing 2021-11 0 04:30: 00 Yes Subcutaneo us, TID MEALS+HS, First dose on Thu09/03/22 at 2330, Until Discontinu ed, Routine [facility] nitroglycer in (NITROSTAT) sublingual tablet 0.4 mg 2021-11 22:30: 00 09-03 22:34 :00 No .4mg 0.4 mg, Sublingual , ONCE, 1 dose, On Thu09/03/22 at 1730, [place] [facility] magnesium oxide (MAG-OX 400) tablet 400 mg 04-24 01:00: 00 04-25 12:59 :00 No 400mg 400 mg, Oral, BID, 3 doses, First dose on Thu04/23/22 at 1999, Last dose on Thu04/24/22 at 1999, Routine [facility] maalox:diph enhydrAMINE :lidocaine 2 % viscous 1:1:1 (FIRST-MOUT HWASH BLM) oral suspension 15 mL 04-23 15:47: 15 Yes 15mL 15 mL, Oral, QDAILYPRN, Starting on Thu04/23/22 at 1047, Until Discontinu ed, Routine, indigestio n [facility] insulin glargine,heydi longrec.anlog (TOUALEJO SOLOSTAR U-300 INSULIN SC) 04-23 15:15: 25 Yes inject under the skin. [facility] aspirin 81 mg chewable tablet 04-23 15:15: 25 Yes 81mg Take 81 mg by mouth daily. [facility] empaglifloz in-metformi n (SYNJARDY) 12.5-1,000 mg Tab 04-23 15:15: 25 Yes 2{tbl} Take 2 tablets by mouth 2 (two) times daily. [facility] apixaban (ELIQUIS) 5 mg tablet 04-23 15:15: 25 Yes 5mg Take 5 mg by mouth 2 (two) times daily. [facility] spironolact one 25 mg tablet 04-23 15:15: 25 Yes 25mg Take 25 mg by mouth 2 (two) times daily. [facility] KCL (KLOR-CON M20) tablet 40 mEq 04-23 14:15: 00 04-23 15:57 :00 No 40meq 40 mEq, Oral, ONCE, 1 dose, On Thu04/23/22 at 0915, Routine [facility] insulin glargine,heydi sandovalanlog (LANTUS SC) 04-23 10:54: 26 04-23 00:00 :00 No inject under the skin. [facility] sitagliptin phosphate (JANUVIA ORAL) 04-23 10:54: 04-23 00:00 :00 No Take by mouth. [facility] morpHINE (2 mg/mL) injection 2 mg 04-23 10:16: 57 Yes [id number] 2mg 2 mg, Slow IV Push, Q4HPRN, Starting on Thu04/23/22 at 0516, Until Discontinu ed, Routine, Pain (scale 7-10) [facility] Sliding Scale Insulin - Lispro (HumaLOG) + Fsbg Testing 04-23 03:00: 00 Yes Subcutaneo us, Q3H, First dose on Thu04/22/22 at 2200, Until Discontinu ed, Routine [facility] insulin glargine (LANTUS U-100) injection 25 Units 04-23 03:00: 00 Yes 25U 25 Units, Subcutaneo us, Q12H, First dose on Thu04/22/22 at 2200, Until Discontinu ed, Routine [facility] glucagon (GLUCAGEN DIAGNOSTIC KIT) injection 1 mg 04-23 02:55: 16 Yes 1mg 1 mg, Intramuscu lar, PRN, Starting on Thu04/22/22 at 2155, Until Discontinu ed, [place], Blood Glucose < or = 70 mg/dL and patient is unable to swallow or has mental changes. [facility] dextrose 50 % in water (D50W) injection 25 mL 04-23 02:55: 16 Yes 25mL 25 mL, Slow IV Push, PRN, Starting on Thu04/22/22 at 2155, Until Discontinu ed, [place], Blood Glucose < or = 70 mg/dL and patient is unable to swallow or has mental status changes. [facility] sucralfate 1 gram tablet 04-23 00:00: 00 05-24 04:59 :00 No [id number] 1g Take 1 tablet by mouth before meals and at bedtime for 30 days. [facility] pantoprazol e 40 mg EC tablet 04-23 00:00: 00 05-24 04:59 :00 No [id number] 40mg Take 1 tablet by mouth 2 (two) times daily for 30 days. [facility] metoprolol tartrate 50 mg tablet 04-23 00:00: 00 05-24 04:59 :00 No [id number] 50mg Take 1 tablet by mouth 2 (two) times daily for 30 days. [facility] atorvastati n (LIPITOR) 40 mg tablet 04-23 00:00: 00 05-24 04:59 :00 No [id number] 40mg Take 1 tablet by mouth at bedtime for 30 days. [facility] magnesium oxide 420 mg Tab 04-23 00:00: 00 05-09 04:59 :00 No [id number] 400mg Take 400 mg by mouth daily for 15 days. [facility] sucralfate (CARAFATE) tablet 1 g 04-22 21:30: 00 Yes 1g 1 g, Oral, AC+HS, First dose on Thu04/22/22 at 1630, Until Discontinu ed, Routine [facility] morpHINE (4 mg/mL) injection 2 mg 04-22 16:15: 00 04-22 15:15 :00 No [id number] 2mg 2 mg, Slow IV Push, ONCE, 1 dose, On Thu04/22/22 at 1115, Routine [facility] SITagliptin (JANUVIA) tablet 50 mg 04-22 14:00: 00 Yes 50mg 50 mg, Oral, DAILY, First dose on Thu04/22/22 at 0900, Until Discontinu ed [facility] aspirin chewable tablet 81 mg 04-22 14:00: 00 Yes 81mg 81 mg, Oral, DAILY, First dose on Thu04/22/22 at 0900, Until Discontinu ed, Routine [facility] metoprolol tartrate (LOPRESSOR) tablet 25 mg 04-22 13:00: 00 Yes 25mg 25 mg, Oral, BID, First dose on Thu04/22/22 at 0800, Until Discontinu ed, Routine [facility] apixaban (ELIQUIS) tablet 5 mg 04-22 13:00: 00 Yes 5mg 5 mg, Oral, BID, First dose on Thu04/22/22 at 0800, Until Discontinu ed, Routine
Indicatio ns: Non-Valvul ar Atrial Fibrillati on [facility] pantoprazol e (PROTONIX) EC tablet 40 mg 04-22 13:00: 00 Yes 40mg 40 mg, Oral, BID, First dose on Thu04/22/22 at 0800, Until Discontinu ed, Routine [facility] D5W 0.9% NaCl (NS) 1 L + KCL 40 mEq 04-22 13:00: 00 04-23 02:32 :18 No IV Infusion, at 200 mL/hr, CONTINUOUS , Starting on Thu04/22/22 at 0800, Until Thu04/22/22 at 2132, Routine [facility] ondansetron (ZOFRAN (PF)) injection 4 mg 04-22 12:18: 40 Yes 4mg 4 mg, Slow IV Push, Q6HPRN, Nausea and Vomiting (N/V), Starting on Thu04/22/22 at 0718
Do ses of ondansetro n 16 mg and above need to be administer ed via IV piggyback. For Dose >=24mg ECG monitoring is advisable.
[facility] atorvastati n (LIPITOR) tablet 40 mg 04-22 02:00: 00 Yes 40mg 40 mg, Oral, QHS, First dose on Thu04/21/22 at 2100, Until Discontinu ed, Routine [facility] pantoprazol e (PROTONIX) injection 40 mg 04-22 01:00: 00 04-22 00:00 :00 No [id number] 40mg 40 mg, Slow IV Push, ONCE, 1 dose, On Thu04/21/22 at 1999 [facility] NaCl 0.9% (NS) bolus infusion 2,000 mL 04-22 01:00: 00 04-21 23:59 :00 No [id number] 2000mL at 999 mL/hr, 2,000 mL, IV Infusion, ONCE, 1 dose, On Thu04/21/22 at 2000, [facility] ondansetron (ZOFRAN (PF)) injection 4 mg 04-22 00:30: 00 04-21 23:26 :00 No [id number] 4mg 4 mg, Slow IV Push, ONCE, 1 dose, On Thu04/21/22 at 1930, [facility] morpHINE (4 mg/mL) injection 4 mg 04-22 00:30: 00 04-21 23:26 :00 No [id number] 4mg 4 mg, Slow IV Push, ONCE, 1 dose, On Thu04/21/22 at 1930, STAT [facility] D5W 0.45% NaCl (1/2NS) IV infusion 1,000 mL 04-22 00:21: 22 04-22 11:50 :31 No [id number] 1000mL at 200 mL/hr, 1,000 mL, IV Infusion, PRN - SEE KAYLEY PALOMO, Starting on Thu04/21/22 at 1921, Until Thu04/22/22 at 0650, [place] [facility] iopamidol (ISOVUE 370-500 mL) injection 120 mL 04-21 22:15: 00 04-22 00:26 :00 No [id number] 120mL 120 mL, Intravenou s, ONCE, 1 dose, On Thu04/21/22 at 1715, Routine [facility] esomeprazol e magnesium (NEXIUM ORAL) 2020-11 14:20: 21 09-30 00:00 :00 No Take by mouth. [facility] insulin glargineheydirecPresleyanlog (LANTUS SC) 2020-11 13:40: 16 Yes inject under the skin. [facility] sitagliptin phosphate (JANUVIA ORAL) 2020-11 13:40: 16 Yes Take by mouth. [facility] aspirin 81 mg chewable tablet 2020-11 13:40: 16 Yes 81mg Take 81 mg by mouth daily. [facility] pantoprazol e 40 mg EC tablet 2020-11 00:00: 00 Yes [id number] 40mg Take 1 tablet by mouth 2 (two) times daily. [facility] sucralfate 1 gram tablet 07-02 00:00: 00 Yes [id number] 1g Take 1 tablet by mouth before meals and at bedtime. [facility] ondansetron (ZOFRAN ODT) 4 mg disintegrat ing tablet 07-02 00:00: 00 Yes [id number] 4mg Take 1 tablet by mouth every 8 (eight) hours as needed for Nausea and Vomiting (N/V). [facility] Immunizations Ordered Immunization Name Filled Immunization Name Date Status Comments Source Tdap- (Boostrix, Adacel) 2023-04-02 00:00:00 Completed Maisha Moy - External Pneumococcal Conjugate 15 (Vaxneuvance) 2023-04-02 [...] SARS-COV-2 COVID-19 VACCINE - (MODERNA) Unknown Completed [facility] TDAP Unknown Completed [facility] Pneumococcal 15 Conjugate, PCV15 (Vaxneuvance) Unknown Completed [facility] HEP B, Adult Dosage Unknown Completed [facility] SARS-COV-2 COVID-19 VACCINE - (MODERNA) Unknown Completed [facility] TDAP Unknown Completed [facility] Pneumococcal 15 Conjugate, PCV15 (Vaxneuvance) Unknown Completed [facility] HEP B, Adult Dosage Unknown Completed [facility] Vital Signs Vital Name Observation Time Observation Value Comments S ource Systolic blood pressure 2024-02-27 21:17:00 126 mm[Hg] [place] [facility] Diastolic blood pressure 2024-02-27 21:17:00 70 mm[Hg] [place] [facility] Heart rate 2024-02-27 21:17:00 97 /min [facility] Body temperature 2024-02-27 21:17:00 36.39 Chen [facility] Respiratory rate 2024-02-27 21:17:00 16 /min [facility] Oxygen saturation in Arterial blood by Pulse oximetry 2024-02-27 21:17:00 95 /min [place] [facility] Body weight 2024-02-27 08:11:00 119.704 kg [facility] BMI 2024-02-27 08:11:00 41.33 kg/m2 [facility] Body height 2024-02-24 17:44:00 170.2 cm [facility] Systolic blood pressure 2023-04-17 13:42:00 124 mm[Hg] [...] External Heart rate 2023-04-02 13:42:00 82 /min Kel y Seybold - External Body temperature 2023-04-02 13:42:00 36.44 Chen Maisha Goddardybold - External Respiratory rate 2023-04-02 13:42:00 18 /min Maisha Goddardybold - External Body height 2023-04-02 13:42:00 170.2 cm Maeve pedersen Seybold - External Body weight 2023-04-02 13:42:00 127.914 kg Maeve pedersen Seybold - External BMI 2023-04-02 13:42:00 44.17 kg/m2 Maeve pedersen Seybold - External Body temperature 2022-11-12 18:00:00 37 Chen [facility] Systolic blood pressure 2022-11-12 17:00:00 113 mm[Hg] [facility] Diastolic blood pressure 2022-11-12 17:00:00 67 mm[Hg] [facility] Heart rate 2022-11-12 17:00:00 91 /min [facility] 2022-11-12 17:00:00 25 /min [facility] Oxygen saturation in Arterial blood by Pulse oximetry 2022-11-12 17:00:00 93 /min [facility] Body weight 2022-11-12 09:42:00 117.981 kg [facility] BMI 2022-11-12 09:42:00 40.74 kg/m2 [facility] Body height 2022-11-10 06:00:00 170.2 cm [facility] Systolic blood pressure 2022-11-07 17:53:00 106 mm[Hg] [facility] Diastolic blood pressure 2022-11-07 17:53:00 70 mm[Hg] [facility] Heart rate 2022-11-07 17:53:00 102 /min [facility] Body temperature 2022-11-07 17:53:00 37.22 Chen [facility] Respiratory rate 2022-11-07 17:53:00 22 /min [facility] Oxygen saturation in Arterial blood by Pulse oximetry 2022-11-07 17:53:00 95 /min [facility] Body height 2022-11-06 11:30:00 170.2 cm [facility] Body weight 2022-11-06 11:30:00 116.5 kg [facility] BMI 2022-11-06 11:30:00 40.23 kg/m2 [facility] Systolic blood pressure 2022-09-04 17:00:00 129 mm[Hg] [facility] Diastolic blood pressure 2022-09-04 17:00:00 84 mm[Hg] [facility] Heart rate 2022-09-04 17:00:00 85 /min [facility] Oxygen saturation in Arterial blood by Pulse oximetry 2022-09-04 17:00:00 94 /min [facility] Body temperature 2022-09-04 16:21:00 36.33 Chen [facility] Respiratory rate 2022-09-04 16:21:00 18 /min [facility] Body height 2022-09-03 22:04:00 170.2 cm [facility] Body weight 2022-09-03 22:04:00 122.834 kg [facility] BMI 2022-09-03 22:04:00 42.41 kg/m2 [facility] Systolic blood pressure 2022-04-23 18:00:00 109 mm[Hg] [facility] Diastolic blood pressure 2022-04-23 18:00:00 56 mm[Hg] [facility] Heart rate 2022-04-23 18:00:00 85 /min [facility] Respiratory rate 2022-04-23 18:00:00 20 /min [facility] Oxygen saturation in Arterial blood by Pulse oximetry 2022-04-23 17:00:00 97 /min [facility] Body temperature 2022-04-23 16:30:00 36.72 Chen [facility] Body height 2022-04-21 22:46:00 170.2 cm [facility] Body weight 2022-04-21 22:46:00 113.399 kg [facility] BMI 2022-04-21 22:46:00 39.16 kg/m2 [facility] Systolic blood pressure 2021-09-30 18:36:00 125 mm[Hg] [facility] Diastolic blood pressure 2021-09-30 18:36:00 81 mm[Hg] [facility] Heart rate 2021-09-30 18:36:00 120 /min [facility] Body temperature 2021-09-30 18:36:00 36.61 Chen [facility] Body height 2021-09-30 18:36:00 170.2 cm [facility] Body weight 2021-09-30 18:36:00 99.066 kg [facility] BMI 2021-09-30 18:36:00 34.21 kg/m2 [facility] Oxygen saturation in Arterial blood by Pulse oximetry 2021-09-30 18:36:00 93 /min [facility] Procedures Procedure Date / Time Performed Performing Clinician Source POCT GLUCOSE (AUTOMATED) 2024-02-27 21:18:00 Kvng Mcallister [facility] POCT GLUCOSE (AUTOMATED) 2024-02-27 16:59:00 Kvng Mcallister [facility] POCT GLUCOSE (AUTOMATED) 2024-02-27 12:24:00 Kvng Mcallister [facility] MAGNESIUM 2024-02-27 09:34:00 Ludwin La [facility] BASIC METABOLIC PANEL (NA, K, CL, CO2, GLUCOSE, BUN, CREATININE, CA) 2024-02-27 09:34:00 Ludwin La [facility] CBC WITH DIFF 2024-02-27 09:34:00 Ludwin La [facility] POCT GLUCOSE (AUTOMATED) 2024-02-27 02:45:00 Kvng Mcallister [facility] POCT GLUCOSE (AUTOMATED) 2024-02-26 21:32:00 Kvng Mcallister [facility] POCT GLUCOSE (AUTOMATED) 2024-02-26 17:05:00 Kvng Mcallister [facility] POCT GLUCOSE (AUTOMATED) 2024-02-26 12:32:00 Kvng Mcallister [facility] MAGNESIUM 2024-02-26 08:40:00 Ludwin La [facility] BASIC METABOLIC PANEL (NA, K, CL, CO2, GLUCOSE, BUN, CREATININE, CA) 2024-02-26 08:40:00 Ludwin La [facility] CBC WITH DIFF 2024-02-26 08:40:00 Ludwin La [facility] POCT GLUCOSE (AUTOMATED) 2024-02-26 01:14:00 Kvng Mcallister [facility] POCT GLUCOSE (AUTOMATED) 2024-02-25 21:08:00 Kvng Mcallister [facility] POCT GLUCOSE (AUTOMATED) 2024-02-25 16:24:00 [facility] ([facility]OMATED) 2024-02-25 14:10:00 Kvng Mcallister [facility] POCT GLUCOSE (AUTOMATED) 2024-02-25 13:01:00 Kvng Mcallister [facility] BASIC METABOLIC PANEL (NA, K, CL, CO2, GLUCOSE, BUN, CREATININE, CA) 2024-02-25 10:13:00 Marlene Swartz [facility] CBC WITH DIFF 2024-02-25 10:13:00 Marlene Swartz [facility] POCT GLUCOSE (AUTOMATED) 2024-02-25 01:29:00 Kvng Mcallister [facility] POCT GLUCOSE (AUTOMATED) 2024-02-24 21:31:00 Kvng Mcallister [facility] POCT GLUCOSE (AUTOMATED) 2024-02-24 17:59:00 Kvng Mcallister [facility] LACTIC ACID WHOLE BLOOD 2024-02-24 15:22:00 Tomas Mcallister [facility] URINALYSIS 2024-02-24 09:46:00 J[facility] CT ABDOMEN PELVIS W CONTRAST 2024-02-24 08:44:48 [facility] HB ECG ROUTINE & RHYTHM STRIP 2024-02-24 07:34:15 Anthony [facility] AC PANEL 21 + LACTIC ACID 2024-02-24 07:26:00 Anthony [facility] XR CHEST 1 VW 2024-02-24 06:22:43 Anthony [facility] LIPASE 2024-02-24 06:20:00 Jody Cruz [facility] MAGNESIUM 2024-02-24 06:20:[address] [facility] TROPONIN I 2024-02-24 06:20:[address] [facility] COMP. METABOLIC PANEL ([id number]) 2024-02-24 06:20:00 Anthony [facility] CBC WITH DIFF 2024-02-24 06:20:00 Anthony [facility] GLYCOSYLATED HEMOGLOBIN (A1C) 2024-02-24 06:20:00 Reece Flores [facility] RAPID INFLUENZA A/B 2024-02-24 06:20:00 Ba Cruz [facility] N-TERMINAL PRO-BNP 2024-02-24 06:20:00 Anthony [facility] COVID-19 (ID NOW RAPID TESTING) 2024-02-24 06:20:00 Anthony [facility] LAB ONLY COVID INTERPRETATION 2024-02-24 06:20:00 Anthony [facility] POCT GLUCOSE (AUTOMATED) 2024-02-24 06:09:00 Anthony [facility] [id number] 2023-11-10 00:00:00 [facility] REAGENT STRIP/BLOOD GLUCOSE 2023-04-17 00:00:00 Outside, Reported Maisha Moy - External TELERETINAL DIABETIC SCREENING 2023-04-02 15:16:00 BamJohn sales - External POCT GLUCOSE (AUTOMATED) 2022-11-12 17:08:00 Cole Love [facility] POCT GLUCOSE (AUTOMATED) 2022-11-12 13:30:00 Cole Love [facility] FERRITIN SERUM 2022-11-12 09:53:00 Kate [facility] HEPATIC FUNCTION PANEL ([id number]) (ALB,T.PRO,BILI T,BU/BC,ALT,AST,ALK PHOS) 2022-11-12 09:53:00 [facility] (NA, K, CL, CO2, GLUCOSE, BUN, CREATININE, CA) 2022-11-12 09:53:00 [facility]) 2022-11-12 02:07:00 Cole Love [facility] POCT GLUCOSE (AUTOMATED) 2022-11-11 21:59:00 Cole Love zeus [facility] POCT GLUCOSE (AUTOMATED) 2022-11-11 17:08:00 Cole Love zeus [facility] POCT GLUCOSE (AUTOMATED) 2022-11-11 13:19:00 Cole Love zeus [facility] MAGNESIUM 2022-11-11 10:21:00 [facility] ([id number]) (ALB,T.PRO,BILI T,BU/BC,ALT,AST,ALK PHOS) 2022-11-11 10:21:00 Cholo Love [facility] BASIC METABOLIC PANEL (NA, K, CL, CO2, GLUCOSE, BUN, CREATININE, CA) 2022-11-11 10:21:[address] [facility] CBC WITH DIFF 2022-11-11 10:21:00 [facility] POCT GLUCOSE (AUTOMATED) 2022-11-11 02:37:00 Cole Love zeus [facility] POCT GLUCOSE (AUTOMATED) 2022-11-10 22:18:00 [facility] 2022-11-10 21:00:00 Kate [facility] HEPATITIS B SURFACE ANTIBODY 2022-11-10 19:01:00 Kate [facility] HEPATITIS B SURFACE ANTIGEN 2022-11-10 19:01:00 Kate [facility] HCV ANTIBODY 2022-11-10 19:01:[address] [facility] HEPATITIS A VIRUS ANTIBODY IGM 2022-11-10 19:01:00 Kate [facility] POCT GLUCOSE (AUTOMATED) 2022-11-10 17:06:[address] [facility] MAGNESIUM 2022-11-10 15:00:[address] [facility] COMP. METABOLIC PANEL ([id number]) 2022-11-10 15:00:00 Kate [facility] POCT GLUCOSE (AUTOMATED) 2022-11-10 13:14:00 [facility]10 03:56:00 Murali Zafar [facility] URINE CULTURE 2022-11-10 03:56:00 Murali Zafar [facility] AC PANEL 20 + LACTIC ACID 2022-11-10 03:47:00 Murali Zafar [facility] LIPASE 2022-11-10 03:46:00 [facility]ar [facility] TROPONIN I 2022-11-10 03:46:00 Murali Zafar [facility] COMP. METABOLIC PANEL ([id number]) 2022-11-10 03:46:00 [facility] 2022-11-10 03:46:00 Murali Zafar [facility] N-TERMINAL PRO-BNP 2022-11-10 03:46:00 [facility]OUT[facility] & RHYTHM STRIP 2022-11-10 03:16:17 Murali Zafar [facility] POCT GLUCOSE (AUTOMATED) 2022-11-10 03:09:00 Kvng Zafar [facility] POCT GLUCOSE (AUTOMATED) 2022-11-10 02:59:00 Kvng Zafar [facility] CONSENT/REFUSAL FOR DIAGNOSIS AND TREATMENT 2022-11-10 02:39:20 Doctor Unassigned, [place] [facility] POCT GLUCOSE (AUTOMATED) 2022-11-07 22:01:00 Yarely Cade [facility] POCT GLUCOSE (AUTOMATED) 2022-11-07 17:28:00 Yarely Cade [facility] POCT GLUCOSE (AUTOMATED) 2022-11-07 14:16:00 Yarely Cade [facility] PHOSPHORUS 2022-11-07 11:33:00 Dar Leal [facility] BETA HYDROXY-BUTYRATE 2022-11-07 11:33:00 Zeyad Leal [facility] BASIC METABOLIC PANEL (NA, K, CL, CO2, GLUCOSE, BUN, CREATININE, CA) 2022-11-07 11:33:00 Dar Leal [facility] POCT GLUCOSE (AUTOMATED) 2022-11-07 03:32:00 Yarely Cade [facility] POCT GLUCOSE (AUTOMATED) 2022-11-06 22:56:00 Abby Palomino [facility] BETA HYDROXY-BUTYRATE 2022-11-06 20:25:00 Jose Miguel Tony [facility] BASIC METABOLIC PANEL (NA, K, CL, CO2, GLUCOSE, BUN, CREATININE, CA) 2022-11-06 20:25:00 Ankur [facility] POCT GLUCOSE (AUTOMATED) 2022-11-06 16:15:00 Abby Palomino [facility] BASIC METABOLIC PANEL (NA, K, CL, CO2, GLUCOSE, BUN, CREATININE, CA) 2022-11-06 11:53:00 Ankur [facility] MRSA / MSSA SCREEN BY VIMAL ROBERT 2022-11-06 11:53:00 Ankur [facility] POCT GLUCOSE (AUTOMATED) 2022-11-06 11:26:00 Abby Palomino [facility] POCT GLUCOSE (AUTOMATED) 2022-11-06 09:26:00 Kvng Zafar [facility] POCT GLUCOSE(AGE >30DAYS) 2022-11-06 08:15:00 Murali Zafar [facility] PHOSPHORUS 2022-11-06 07:25:00 Murali Zafar [facility] MAGNESIUM 2022-11-06 07:25:00 [facility]afar [facility] OSMOLALITY, SERUM OR PLASMA 2022-11-06 07:25:00 Murali Zafar [facility] BETA HYDROXY-BUTYRATE 2022-11-06 07:25:00 Leif Zafar [facility] BASIC METABOLIC PANEL (NA, K, CL, CO2, GLUCOSE, BUN, CREATININE, CA) 2022-11-06 07:25:00 Murali Zafar [facility] LIPID PANEL ([id number])(TOTAL CHOLESTEROL, TRIGLYCERIDES, HDL) 2022-11-06 07:25:00 Monae Pascual [facility] GLYCOSYLATED HEMOGLOBIN (A1C) 2022-11-06 07:25:00 Murali Zafar [facility] POCT GLUCOSE(AGE >30DAYS) 2022-11-06 06:58:00 Murali Zafar [facility] POCT GLUCOSE (AUTOMATED) 2022-11-06 06:55:00 Kvng Zafar [facility] CRITICAL CARE 2022-11-06 06:50:18 Murali Zafar [facility] AC PANEL 20 + LACTIC ACID 2022-11-06 06:14:00 Murali Zafar [facility] CT ABDOMEN PELVIS W CONTRAST 2022-11-06 06:05:19 Murali Zafar [facility] CT CHEST PULMONARY ANGIOGRAM 2022-11-06 06:05:19 Murali Zafar [facility] BLOOD CULTURE SCREEN 2022-11-06 04:51:00 Juan Zafar [facility] LACTIC ACID WHOLE BLOOD 2022-11-06 04:50:00 Do araceli Zafar [facility] XR CHEST 1 VW 2022-11-06 04:21:53 Murali Zafar [facility] LIPASE 2022-11-06 04:08:00 [facility]afar [facility] TROPONIN I 2022-11-06 04:08:00 Murali Zafar [facility] COMP. METABOLIC PANEL ([id number]) 2022-11-06 04:08:00 Murali Zafar [facility] CBC WITH DIFF 2022-11-06 04:08:00 Murali Zafar [facility] URINALYSIS 2022-11-06 04:08:00 Murali Zafar [facility] URINE CULTURE 2022-11-06 04:08:00 Murali Zafar [facility] RAPID INFLUENZA A/B 2022-11-06 04:08:00 Emma Zafar [facility] N-TERMINAL PRO-BNP 2022-11-06 04:08:00 Murali Zafar [facility] COVID-19 (ID NOW RAPID TESTING) 2022-11-06 04:08:00 Murali Zafar [facility] LAB ONLY COVID INTERPRETATION 2022-11-06 04:08:00 Murali Zafar [facility] CONSENT/REFUSAL FOR DIAGNOSIS AND TREATMENT 2022-11-06 03:03:01 Doctor Unassigned, [place] [facility] HOSPITAL ADMISSION 2022-11-05 06:01:00 Doctor Un assigned, [place] [facility] POCT GLUCOSE (AUTOMATED) 2022-09-04 16:52:00 Kvng Mcallister [facility] US GALL BLADDER 2022-09-04 15:00:00 Jaxon Thomas [facility] POCT GLUCOSE (AUTOMATED) 2022-09-04 12:51:00 Kvng Mcallister [facility] TROPONIN I 2022-09-04 11:06:[address] [facility] COMP. METABOLIC PANEL ([id number]) 2022-09-04 11:06:00 Jaxon Thomas [facility] ACUTE CARE VENOUS BLOOD GAS 2022-09-04 11:06:00 Jaxon Thomas [facility] CBC WITH DIFF 2022-09-04 11:06:00 Jaxon Thomas [facility] N-TERMINAL PRO-BNP 2022-09-04 11:06:00 [facility] PHOS[facility]US 2022-09-04 05:55:00 Lesley [facility] URIC ACID 2022-09-04 05:55:00 Lesley [facility] MAGNESIUM 2022-09-04 05:55:00 Lesley [facility] TROPONIN I 2022-09-04 05:55:00 Lesley [facility] THYROID STIMULATING HORMONE 2022-09-04 05:55:00 [facility] LIPID PANEL ([id number])(TOTAL CHOLESTEROL, TRIGLYCERIDES, HDL) 2022-09-04 05:55:00 [facility] SEDIMENTATION RATE 2022-09-04 05:55:00 [facility] PROTHROMBIN TIME / INR 2022-09-04 05:55:00 Lesley [facility] HEPATITIS B SURFACE ANTIBODY 2022-09-04 05:55:00 [facility] HEPATITIS B SURFACE ANTIGEN 2022-09-04 05:55:00 [facility] HCV ANTIBODY 2022-09-04 05:55:00 Lesley [facility] HAV ANTIBODY (IGG AND IGM) 2022-09-04 05:55:00 [facility] PROCALCITONIN 2022-09-04 05:55:00 Lesley kristin [facility] POCT GLUCOSE (AUTOMATED) 2022-09-04 05:31:00 Kvng Mcallister [facility] XR CHEST 1 VW 2022-09-03 22:42:00 Murali Zafar [facility] GLYCOSYLATED HEMOGLOBIN (A1C) 2022-09-03 22:26:00 [facility] ACTIVATED PARTIAL THRMPLAS KAR 2022-09-03 22:26:00 Andrade [facility] N-TERMINAL PRO-BNP 2022-09-03 22:26:00 Andrade [facility] LIPASE 2022-09-03 22:26:00 Murali Zafar [facility] TROPONIN I 2022-09-03 22:26:00 Murali Zafar [facility] COMP. METABOLIC PANEL ([id number]) 2022-09-03 22:26:00 Murali Zafar [facility] CBC WITH DIFF 2022-09-03 22:26:00 Murali Zafar [facility] NOTICE OF PRIVACY PRACTICES 2022-09-03 21:52:55 Doctor Unassigned, [place] [facility] CONSENT/REFUSAL FOR DIAGNOSIS AND TREATMENT 2022-09-03 21:52:24 Doctor Unassigned, [place] [facility] POCT GLUCOSE (AUTOMATED) 2022-04-23 18:58:00 Cole Love [facility] POCT GLUCOSE (AUTOMATED) 2022-04-23 15:35:00 Cole Love [facility] POCT GLUCOSE (AUTOMATED) 2022-04-23 12:41:00 Cole Love [facility] POCT GLUCOSE (AUTOMATED) 2022-04-23 11:33:00 Cole Love [facility] MAGNESIUM 2022-04-23 09:33:00 Sachin Mcallister [facility] BASIC METABOLIC PANEL (NA, K, CL, CO2, GLUCOSE, BUN, CREATININE, CA) 2022-04-23 09:33:00 Sachin Mcallister [facility] POCT GLUCOSE (AUTOMATED) 2022-04-23 09:33:00 Cole Love [facility] POCT GLUCOSE (AUTOMATED) 2022-04-23 07:17:00 Cole Love [facility] POCT GLUCOSE (AUTOMATED) 2022-04-23 05:25:00 Cole Love [facility] POCT GLUCOSE (AUTOMATED) 2022-04-23 04:07:00 Cole Love [facility] POCT GLUCOSE (AUTOMATED) 2022-04-23 03:09:00 Cole Love [facility] POCT GLUCOSE (AUTOMATED) 2022-04-23 02:22:00 Cole Love [facility] BASIC METABOLIC PANEL (NA, K, CL, CO2, GLUCOSE, BUN, CREATININE, CA) 2022-04-23 01:15:00 Annette Holland [facility] POCT GLUCOSE (AUTOMATED) 2022-04-23 01:15:00 Cole Love [facility] POCT GLUCOSE (AUTOMATED) 2022-04-23 00:02:00 Cole Love [facility] POCT GLUCOSE (AUTOMATED) 2022-04-22 23:01:00 Kvng Mcallister [facility] POCT GLUCOSE (AUTOMATED) 2022-04-22 22:05:00 [facility] BASIC METABOLIC PANEL (NA, K, CL, CO2, GLUCOSE, BUN, CREATININE, CA) 2022-04-22 21:05:00 Annette Holland [facility] POCT GLUCOSE (AUTOMATED) 2022-04-22 21:02:00 Kvng Mcallister [facility] POCT GLUCOSE (AUTOMATED) 2022-04-22 19:45:00 [facility] POCT GLUCOSE (AUTOMATED) 2022-04-22 18:42:00 [facility] POCT GLUCOSE (AUTOMATED) 2022-04-22 17:22:00 Cole Love [facility] POCT GLUCOSE (AUTOMATED) 2022-04-22 16:05:00 Cole Love [facility] TROPONIN I 2022-04-22 15:33:00 [facility] MET[facility]OLIC PANEL (NA, K, CL, CO2, GLUCOSE, BUN, CREATININE, CA) 2022-04-22 15:33:00 Annette Holland [facility] CBC WITH DIFF 2022-04-22 15:33:00 Cholo Love [facility] POCT GLUCOSE (AUTOMATED) 2022-04-22 14:25:00 Cole Love [facility] POCT GLUCOSE (AUTOMATED) 2022-04-22 13:39:00 Cole Love [facility] POCT GLUCOSE (AUTOMATED) 2022-04-22 12:26:00 Cole Love [facility] POCT GLUCOSE (AUTOMATED) 2022-04-22 11:30:00 Cole Love [facility] BASIC METABOLIC PANEL (NA, K, CL, CO2, GLUCOSE, BUN, CREATININE, CA) 2022-04-22 10:51:00 Annette Holland [facility] POCT GLUCOSE (AUTOMATED) 2022-04-22 10:47:00 Cole Love [facility] POCT GLUCOSE (AUTOMATED) 2022-04-22 10:44:00 Cole Love [facility] POCT GLUCOSE (AUTOMATED) 2022-04-22 09:32:00 Cole Love [facility] POCT GLUCOSE (AUTOMATED) 2022-04-22 08:34:00 Cole Love [facility] BASIC METABOLIC PANEL (NA, K, CL, CO2, GLUCOSE, BUN, CREATININE, CA) 2022-04-22 07:39:00 Annette Holland [facility] POCT GLUCOSE (AUTOMATED) 2022-04-22 07:33:00 Cole Love [facility] POCT GLUCOSE (AUTOMATED) 2022-04-22 06:29:00 Cole Love [facility] BASIC METABOLIC PANEL (NA, K, CL, CO2, GLUCOSE, BUN, CREATININE, CA) 2022-04-22 05:30:00 Annette Holland [facility] POCT GLUCOSE (AUTOMATED) 2022-04-22 05:29:00 Cole Love [facility] POCT GLUCOSE (AUTOMATED) 2022-04-22 04:32:00 Cole Love [facility] POCT GLUCOSE (AUTOMATED) 2022-04-22 03:40:00 Cole Love [facility] MRSA / MSSA SCREEN BY VIMAL ROBERT 2022-04-22 03:30:00 Cholo Love [facility] LACTIC ACID WHOLE BLOOD 2022-04-22 03:09:00 Alexandru Love [facility] POCT GLUCOSE (AUTOMATED) 2022-04-22 02:14:00 Cole Love [facility] COVID-19 (ID NOW RAPID TESTING) 2022-04-22 01:25:00 Skyler [facility] LAB ONLY COVID INTERPRETATION 2022-04-22 01:25:00 Skyler [facility] URINALYSIS 2022-04-22 01:23[facility] (NA, K, CL, CO2, GLUCOSE, BUN, CREATININE, CA) 2022-04-22 01:14:00 Skyler [facility] OSMOLALITY, SERUM OR PLASMA 2022-04-22 01:11:00 Skyler [facility] BETA HYDROXY-BUTYRATE 2022-04-22 01:11[facility]) 2022-04-22 01:08:00 Cole Love [facility] CT ABDOMEN PELVIS W CONTRAST 2022-04-22 00:25:33 Skyler [facility] XR CHEST 1 VW 2022-04-22 00:18:00 Annette Holland [facility] AC PANEL 21 + LACTIC ACID 2022-04-22 00:04:00 Skyler [facility] URINALYSIS 2022-04-21 23:11:00 Skyler [facility] PHOSPHORUS 2022-04-21 23:05:00 Skyler [facility] LIPASE 2022-04-21 23:05:00 Skyler [facility] MAGNESIUM 2022-04-21 23:05:00 Skyler [facility] TROPONIN I 2022-04-21 23:05:00 Skyler [facility] COMP. METABOLIC PANEL ([id number]) 2022-04-21 23:05:00 Skyler [facility] CBC WITH DIFF 2022-04-21 23:05:00 Annette Holland [facility] GLYCOSYLATED HEMOGLOBIN (A1C) 2022-04-21 23:05:00 Skyler [facility] PROTHROMBIN TIME / INR 2022-04-21 23:05:00 Haylee Holland [facility] N-TERMINAL PRO-BNP 2022-04-21 23:05:00 Nelly Holland [facility] HB ECG ROUTINE & RHYTHM STRIP 2022-04-21 22:57:52 Annette Holland [facility] CONSENT/REFUSAL FOR DIAGNOSIS AND TREATMENT 2022-04-21 22:36:06 Doctor Unassigned, [place] [facility] NOTICE OF PRIVACY PRACTICES 2022-04-21 22:34:32 Doctor Unassigned, [place] [facility] Encounters Start Date/Time End Date/Time Encounter Type Admission Type Attending [email or web address] Care Department Encounter ID Source 2025-01-20 13:51:53 2025-01-20 13:51:53 Outpatient [facility] [id number] Ron Alejandre 2024-11-03 14:39:22 2024-11-03 14:39:22 Outpatient [facility] [id number] Ron Alejandre 2024-10-28 14:42:01 2024-10-28 14:42:01 Outpatient [facility] [id number] Ron Alejandre 2024-10-25 13:47:06 2024-10-25 13:47:06 Outpatient [facility] [id number] Ron Alejandre 2024-09-02 00:00:00 2024-09-02 00:00:00 Outpatient JOHN BECKFORD [id number] [facility] 2024-08-17 00:00:00 2024-08-17 00:00:00 Outpatient JHON BECKFORD [id number] Maisha violeta 2024-07-21 00:00:00 2024-07-21 00:00:00 Outpatient MAISHA EVANS [id number] Maisha Moy 2024-06-11 00:00:00 2024-06-11 00:00:00 Outpatient MAISHA EVANS [id number] Maisha Moy 2024-05-20 00:00:00 2024-05-20 00:00:00 Outpatient WENDY MORENO [id number] [facility] 2024-03-29 00:00:00 2024-03-29 00:00:00 Outpatient WNEDY MORENO [id number] [facility] 2024-03-26 00:00:00 2024-03-26 00:00:00 Outpatient WENDY MORENO [id number] [facility] 2024-03-14 00:00:00 2024-03-14 00:00:00 Outpatient MAISHA EVANS [id number] [facility] 2024-03-11 00:00:00 2024-03-11 00:00:00 Outpatient MAISHA EVANS [id number] [facility] 2024-03-10 00:00:00 2024-03-10 00:00:00 Outpatient MAISHA EVANS [id number] [facility] 2024-03-09 00:00:00 2024-03-09 00:00:00 Outpatient MAISHA EVANS [id number] [facility] 2024-03-03 00:00:00 2024-03-03 00:00:00 Outpatient MAISHA EVANS [id number] [facility] 2024-03-03 00:00:00 2024-03-03 00:00:00 Outpatient MAISHA EVANS [id number] [facility] 2024-02-29 00:00:00 2024-02-29 00:00:00 Outpatient MAISHA EVANS [id number] [facility] 2024-02-29 00:00:00 2024-02-29 00:00:00 Transition of Care Florence Downs 1.2.840.114 350.1.13.10 4.2.7.2.686 [id number] [facility] 2024-02-24 01:01:00 2024-02-27 17:45:00 Inpatient SACHIN YOUNGER AKREGINO [facility] [id number] [facility] 2024-02-24 01:01:00 2024-02-27 17:45:00 Hospital Encounter Jody Cruz Wakili S Morris, David [facility] 1.2.840.114 350.1.13.10 4.2.7.2.686 [id number] [facility] 2024-02-26 00:00:00 2024-02-26 00:00:00 Outpatient MAISHA EVANS [id number] Maisha violeta 2024-01-20 13:37:45 2024-01-20 13:37:45 Outpatient [facility] [id number] Ron Alejandre 2023-11-18 09:30:00 2023-11-18 09:30:00 Outpatient WENDY MORENO [id number] [facility] 2023-11-10 10:33:00 2023-11-17 19:30:00 Inpatient Jeremias Hall HCABM INTE.02 [id number] [facility] 2023-11-11 09:56:00 2023-11-11 09:56:00 Outpatient Jeremias Ibarra HCACL LABO [id number] [facility] 2023-11-11 00:00:00 2023-11-11 00:00:00 Outpatient MAISHA EVANS [id number] [facility] 2023-11-10 15:15:00 2023-11-10 15:15:00 Outpatient WENDY MORENO [id number] [facility] 2023-11-06 00:00:00 2023-11-06 00:00:00 Outpatient MAISHA EVANS [id number] [facility] 2023-10-27 00:00:00 2023-10-27 00:00:00 Outpatient MAISHA EVANS [id number] [facility] 2023-09-24 00:00:00 2023-09-24 00:00:00 Outpatient JOHN BECKFORD [id number] [facility] 2023-08-07 15:15:00 2023-08-07 15:15:00 Outpatient WENDY MORENO [id number] [facility] 2023-07-31 16:45:2023-07-31 16:45:00 Outpatient WENDY MORENO MAISHA EVANS [id number] Maisha Sey[facility]ole 2023-06-26 14:40:00 2023-06-26 14:40:00 Outpatient LYUBOV FERNÁNDEZ MAISHA EVANS [id number] Maisha Sevioleta 2023-05-14 00:00:00 2023-05-14 00:00:00 Outpatient MD MAISHA MEADE [id number] [facility] 2023-04-23 16:00:00 2023-04-23 16:00:00 Outpatient ROHINI CHAMBERS MAISHA EVANS [id number] [facility] 2023-04-23 13:30:00 2023-04-23 13:30:00 Outpatient MIKAJOHN Xiong MAISHA EVANS [id number] [facility] 2023-04-21 08:00:00 2023-04-21 08:00:00 Outpatient MARCELLE ZHU [id number] [facility] 2023-04-17 09:15:00 2023-04-17 09:15:00 Outpatient WENDY MORENO MAISHA EVANS [id number] [facility] 2023-04-16 00:00:00 2023-04-16 00:00:00 Outpatient MD MAISHA MEADE [id number] [facility] 2023-04-14 00:00:00 2023-04-14 00:00:00 Outpatient MARCELLE ZHU [id number] [facility] 2023-04-10 00:00:00 2023-04-10 00:00:00 Outpatient MARCELLE ZHU [id number] [facility]isha Seyb[facility]ole 2023-04-09 00:00:00 2023-04-09 00:00:00 Outpatient MARCELLE ZHU [id number] [facility]isha Seybcarole 2023-04-08 08:00:00 2023-04-08 08:00:00 Outpatient MARCELLE ZHU [id number] Maisha Moy 2023-04-08 00:00:00 2023-04-08 00:00:00 Outpatient MAISHA RIVERS [id number] [facility] 2023-04-08 00:00:00 2023-04-08 00:00:00 Outpatient WENDY MORENO MAISHA EVANS [id number] [facility] 2023-04-08 00:00:00 2023-04-08 00:00:00 Outpatient RADHA PALOMARES MAISHA EVANS [id number] [facility] 2023-04-07 00:00:00 2023-04-07 00:00:00 Outpatient JOHN BECKFORD MAISHA EVANS [id number] [facility] 2023-04-02 10:20:00 2023-04-02 10:20:00 Outpatient YINKA MAISHA EVANS [id number] [facility] 2023-04-02 09:00:00 2023-04-02 09:00:00 Outpatient ANALY JOHN EVANS [id number] [facility] 2023-04-02 00:00:00 2023-04-02 00:00:00 Outpatient GRADYAKBAR CHRISTIAN MAISHA EVANS [id number] [facility] 2022-11-13 00:00:00 2022-11-13 00:00:00 Transition of Care Florence Botello 1..840.114 350.1.13.10 4.2.7.2.686 [id number] [facility] 2022-11-09 21:02:00 2022-11-12 15:36:00 Inpatient X [facility] [id number] [facility] 2022-11-09 21:02:00 2022-11-12 15:36:00 Hospital Encounter Murali Zafar [facility] [place], Jelani [facility] 1..840.114 350.1.13.10 4.2.7.2.686 [id number] [facility] 2022-11-12 00:00:00 2022-11-12 00:00:00 Telephone Nata Vu R [facility] 1..114 350.1.13.10 4.2.7.2.686 [id number] [facility] 2022-11-10 00:00:00 2022-11-10 00:00:00 Transition of Care Florence Botello 1.20.114 350.1.13.10 4.2.7.2.686 [id number] [facility] 2022-11-05 21:27:00 2022-11-07 17:37:00 Inpatient JON MIRANDA [facility] JOSE ENRIQUE [id number] [facility] 2022-11-05 21:27:00 2022-11-07 17:37:00 Hospital Encounter Murali Zafar Joseph Henrie, [facility]..114 350.1.13.10 4.2.7.2.686 [id number] [facility] 2022-10-31 13:11:41 2022-10-31 13:11:41 Outpatient [facility] [id number] Ron Alejandre 2022-09-24 08:23:00 2022-09-24 08:23:00 Outpatient Lukasz Bejarano [facility] [id number] [facility] 2022-09-08 00:00:00 2022-09-08 00:00:00 Outpatient JAXON MONIQUE [facility] [id number] [facility] 2022-09-03 17:08:00 2022-09-04 13:45:00 Outpatient JAI PARKER [facility] JOSE ENRIQUE [id number] [facility] 2022-09-03 17:08:00 2022-09-04 13:45:00 Emergency Murali Zafar David Abdullah, Yaman [facility] 1.84.114 350.1.13.10 4.2.7.2.686 [id number] [facility] 2022-08-20 19:28:00 2022-08-20 19:28:00 Outpatient [id number] [facility] 2022-04-24 00:00:00 2022-04-24 00:00:00 Transition of Care Florence Botello DANIEL MORRIS 1.114 350.1.13.10 4.2.7.2.686 [id number] [facility] 2022-04-21 17:49:00 2022-04-23 15:15:00 Inpatient SACHIN YOUNGER [facility] JOSE ENRIQUE [id number] [facility] 2022-04-21 17:49:00 2022-04-23 15:15:00 Hospital Encounter Annette Holland, Sachin Brush [facility] 1.114 350.1.13.10 4.2.7.2.686 [id number] [facility] 2021-12-24 00:00:00 2021-12-24 00:00:00 Outpatient [facility] PIJFIFFDTZ [id number] [facility] 2021-09-30 14:00:00 2021-09-30 14:00:00 Outpatient GERSON PISANO [facility] [id number] [facility] 2021-09-30 13:25:55 2021-09-30 13:55:55 Office Visit Dustin Cervantes Joseph Marc [facility] .114 350.1.13.10 4.2.7.2.686 [id number] [facility] 2021-09-30 00:00:00 2021-09-30 00:00:00 Orders Only Doctor Unassigned, [place] [facility] 1.114 350.1.13.10 4.2.7.2.686 [id number] [facility] 2021-08-09 00:00:00 2021-08-09 00:00:00 Orders Only Doctor Unassigned, [place] [facility] 1.2.840.114 350.1.13.10 4.2.7.2.686 [id number] [facility] 2021-07-02 15:02:00 2021-07-02 21:52:00 Emergency Marlene Taylor [facility] 1.2.840.114 350.1.13.10 4.2.7.2.686 [id number] [facility] 2021-07-02 14:36:00 2021-07-02 14:36:00 Emergency X [facility] ERT [id number] [facility] Results Test Description Test Time Test Comments Results Result Co mments Source [facility] GLUCOSE (AUTOMATED)2024-02-27 17:00:09* Test Item Value Reference Range Interpretation Comme nts POCT GLU (test code = 5051793539) 178 mg/dL 70-110 H Lab Interpretation (test cod e = 02687-1) Abnormal [facility] GLUCOSE (AUTOMATED)2024-02-27 12:26:11* Test Item Value Reference Range Interpretation Comme nts POCT GLU (test code = 6418397152) 149 mg/dL 70-110 H Lab Interpretation (test cod e = 73849-7) Abnormal [facility] GLUCOSE (AUTOMATED)2024-02-27 02:46:57* Test Item Value Reference Range Interpretation Comme nts POCT GLU (test code = 0478549721) 193 mg/dL 70-110 H Lab Interpretation (test cod e = 54540-0) Abnormal [facility] GLUCOSE (AUTOMATED)2024-02-26 21:33:27* Test Item Value Reference Range Interpretation Comme nts POCT GLU (test code = 7344986443) 167 mg/dL 70-110 H Lab Interpretation (test cod e = 27738-4) Abnormal [facility] GLUCOSE (AUTOMATED)2024-02-26 17:06:58* Test Item Value Reference Range Interpretation Comme nts POCT GLU (test code = 6920730079) 176 mg/dL 70-110 H Lab Interpretation (test cod e = 00341-6) Abnormal [facility] GLUCOSE (AUTOMATED)2024-02-26 12:35:03* Test Item Value Reference Range Interpretation Comme nts POCT GLU (test code = 1987228001) 167 mg/dL 70-110 H Lab Interpretation (test cod e = 55924-3) Abnormal [facility] GLUCOSE (AUTOMATED)2024-02-26 01:15:17* Test Item Value Reference Range Interpretation Comme nts POCT GLU (test code = 4027094361) 193 mg/dL 70-110 H Lab Interpretation (test cod e = 35459-7) Abnormal [facility] GLUCOSE (AUTOMATED)2024-02-25 21:10:00* Test Item Value Reference Range Interpretation Comme nts POCT GLU (test code = 0561856950) 202 mg/dL 70-110 H Lab Interpretation (test cod e = 65414-8) Abnormal [facility] GLUCOSE (AUTOMATED)2024-02-25 16:27:31* Test Item Value Reference Range Interpretation Comme nts POCT GLU (test code = 5671706122) 185 mg/dL 70-110 H Lab Interpretation (test cod e = 57916-2) Abnormal [facility] GLUCOSE (AUTOMATED)2024-02-25 14:21:04* Test Item Value Reference Range Interpretation Comme nts POCT GLU (test code = 4809615379) 244 mg/dL 70-110 H Lab Interpretation (test cod e = 04817-4) Abnormal [facility] GLUCOSE (AUTOMATED)2024-02-25 13:02:39* Test Item Value Reference Range Interpretation Comme nts POCT GLU (test code = 5289345565) 199 mg/dL 70-110 H Lab Interpretation (test cod e = 09455-1) Abnormal [facility] Metabolic Panel (NA, K, CL, CO2, GLUCOSE, BUN, CREATININE, CA)2024-02-25 11:08:17* Test Item Value Reference Range Interpretation Comme nts NA (test code = 8625619098) 132 mmol/L 135-145 L K (test code = 3828510168) 3.2 mmol/L 3.5-5.0 L CL (test code = 0797059697) 98 mmol/L 98-108 CO2 TOTAL (test code = 8993003024) 25 mmol/L 23-31 AGAP (test code = 7104718967) 9 2-16 BUN (test code = 4889736524) 5 mg/dL 7-23 L GLUCOSE (test code = 3085775535) 206 mg/dL 70-110 H CREATININE (test code = 2160-0) 0.83 mg/dL 0.60-1.25 CALCIUM (test code = 9766724363) 8.8 mg/dL 8.6-10.6 eGFR (test code = 78593-7) 105.3 mL/min/1.73m2 CKD-EPI eGFR (2020). Assuming creatinine has been stable day-to-day for at least three months, the eGFR indicates Category G1 (>= 90 mL/min/1.73 m2) Lab Interpretation (test code = 78672-6) Abnormal [facility] with Rtpn5888-54-00 10:41:51* Test Item Value Reference Range Interpretation [...] 33.4 g/dL 31.2-35.0 RDW-SD (test code = 02384-5) 39.8 fL 38.5-51.6 RDW-CV (test code = 788-0) 12.5 % 12.1-15.4 PLT (test code = 777-3) 252 150-328 MPV (test code = 85312-3) 9.1 fL 9.8-13.0 L NRBC/100 WBC (test code = 2145749595) 0.0 0.0-10.0 NRBC x10^3 (test code = 3861212961) See_Comment [Automated Everyone Countsa ge] The system which generated this result transmitted reference range: 10*3/?L. The reference range was not used to interpret this result as normal/abnormal. GRAN MAT (NEUT) % (test code = 770-8) 54.8 % IMM GRAN % (test code = 9555564763) 0.20 % LYMPH % (test code = 736-9) 27.5 % MONO % (test code = 5905-5) 12.4 % EOS % (test code = 713-8) 4.5 % BASO % (test code = 706-2) 0.6 % GRAN MAT x10^3(ANC) (test code = 4840766186) 3.50 10*3/uL 1.99-6.95 IMM GRAN x10^3 (test code = 9847241804) 0.00-0.06 LYMPH x10^3 (test code = 731-0) 1.76 10*3/uL 1.09-3.23 MONO x10^3 (test code = 742-7) 0.79 10*3/uL 0.36-1.02 EOS x10^3 (test code = 711-2) 0.29 10*3/uL 0.06-0.53 BASO x10^3 (test code = 704-7) 0.04 10*3/uL 0.01-0.09 Lab Interpretation (test code = 58658-0) Abnormal [facility] GLUCOSE (AUTOMATED)2024-02-25 01:30:42* Test Item Value Reference Range Interpretation Comme nts POCT GLU (test code = 2876028545) 203 mg/dL 70-110 H Lab Interpretation (test cod e = 94431-9) Abnormal [facility] GLUCOSE (AUTOMATED)2024-02-24 21:33:19* Test Item Value Reference Range Interpretation Comme nts POCT GLU (test code = 0292979349) 198 mg/dL 70-110 H Lab Interpretation (test cod e = 34742-4) Abnormal [facility] GLUCOSE (AUTOMATED)2024-02-24 18:00:37* Test Item Value Reference Range Interpretation Comme nts POCT GLU (test code = 0318749859) 220 mg/dL 70-110 H Lab Interpretation (test cod e = 28376-3) Abnormal [facility] Whole [id number] 15:27:25* Test Item Value Reference Range Interpretation Comme nts LACTIC ACID (test code = 4173862792) 1.62 mmol/L 0.50-2.20 Lab Interpretation (test cod e = 43414-1) Normal [facility] CampusGlycosylated Hemoglobin (A1C)2024-02-24 15:25:42* Test Item Value Reference Range Interpretation Comme nts HGB A1C (test code = 4548-4) 11.5 % 4.0-5.7 H ZULEIMA (test code = ZULEIMA) Reference RangesNormal: <5.7%Prediabetes: 5.7 - 6.4%Diabetes: > 6.5% Lab Interpretation (test code = 23981-6) Abnormal [facility] CampusCT ABDOMEN PELVIS W [id number] 13:02:45EXAM: CT ABDOMEN AND PELVIS WITH CONTRAST [...] TISSUES: No suspicious lytic or sclerotic bony lesions.[facility] CampusXR CHEST 1 [id number] 12:55:45EXAM: XR CHEST 1 VW COMPARISON: Chest radiograph 11/05/2022 HISTORY: weakness FINDINGS: Lungs: The lungs are clear. and well-expanded. No pleural abnormalities. Heart/Mediastinum: The cardiomediastinal silhouette is normal in sizeaccounting for technique. Bones: No osseous lesions are detected. The soft tissues appear normalThe [facility] CampusN-Terminal Pro-Bnp 2024-02-24 08:34:21* Test Item Value Reference Range Interpretation Comme [facility] NT-proBNP (test code = 25904-2) 21 pg/mL <=125 Lab Interpretation (test cod e = 80775-3) Normal [facility] CampusTroponin [id number] 07:37:54* Test Item Value Reference Range Interpretation Comme nts TROPONIN I (test code = 0105331528) 0.005 ng/mL <=0.034 ZULEIMA (test code = [...] of biotin. Lab Interpretation (test code = 28378-8) Normal [facility] Panel 21 + Lactic Cqvp6425-07-17 07:31:17* Test Item Value Reference Range Interpretation Comme nts PH (test code = 4075364863) 7.40 7.32-7.42 PCO2 SAKINA (test code = 6940005949) 45 41-51 PO2 SAKINA (test code = 9641351813) 33 25-40 HCO3 SAKINA (test code = 1242797998) 27 24-28 AC VBE(BEAKER) (test code = 9689735555) 1.7 mEq/L THB SAKINA (test code = 2895620678) 14.3 g/dL 13.5-18.0 %O2HB SAKINA (test code = 2964191283) 63.8 % 52.0-63.0 H %COHB SAKINA (test code = 5443736572) 0.4 % 0.0-1.5 %METHB SAKINA (test code = 7226909313) 0.0 % 0.4-1.5 L VOL%O2 SAKINA (test code = 6817894571) 12.8 % 6.0-12.0 H NA (test code = 4372336934) 133 mmol/L 135-145 L K+ (test code = 8373028008) 3.1 mmol/L 3.5-5.0 L AC CA IONZ (test code = 9228055094) 4.80 mg/dL 4.50-5.30 GLUCOSE (test code = 2980315298) 235 mg/dL 70-110 H LACTIC ACID (test code = 5916773733) 2.74 mmol/L 0.50-2.20 H Lab Interpretation (test cod e = 95096-4) Abnormal [facility] CampusMagnesium2024-03-27 07:26:35* Test Item Value Reference Range Interpretation Comme nts MAGNESIUM (test code = 2823613368) 2.0 mg/dL 1.7-2.4 Lab Interpretation (test cod e = 11596-1) Normal [facility] CampusComplete Metabolic Sgqbl3310-84-35 07:26:15* Test Item Value Reference Range Interpretation Comme nts NA (test code = 0118474863) 132 mmol/L 135-145 L K (test code = 5529700928) 3.1 mmol/L 3.5-5.0 L CL (test code = 9769046267) 94 mmol/L 98-108 L CO2 TOTAL (test code = 8410506392) 26 mmol/L 23-31 AGAP (test code = 7888419827) 12 2-16 BUN (test code = 0172799884) 7 mg/dL 7-23 GLUCOSE (test code = 7634727930) 235 mg/dL 70-110 H CREATININE (test code = 2160-0) 1.06 mg/dL 0.60-1.25 TOTAL BILI (test code = 8334703657) 0.9 mg/dL 0.1-1.1 CALCIUM (test code = 5558671204) 9.5 mg/dL 8.6-10.6 T PROTEIN (test code = 3451046256) 7.7 g/dL 6.3-8.2 ALBUMIN (test code = 9241318797) 4.1 g/dL 3.5-5.0 ALK PHOS (test code = 7463474937) 113 U/L 34-122 ALTv (test code = 1742-6) 171 U/L 5-50 H AST(SGOT) (test code = 7917202149) 102 U/L 13-40 H eGFR (test code = 77880-6) 84.4 mL/min/1.73m2 CKD-EPI eGFR (2020). Assuming creatinine has been stable day-to-day for at least three months, the eGFR indicates Category G2 (60 - 89 mL/min/1.73 m2) Lab Interpretation (test code = 44685-2) Abnormal [facility] CampusLipase, Hqfyn1163-91-72 07:26:15* Test Item Value Reference Range Interpretation Comme nts LIPASE (test code = 4074134362) 82 U/L 0-220 Lab Interpretation (test cod e = 38492-4) Normal [facility] CampusCBC with Eqpinqkewbzs7130-88-62 07:10:13* Test Item Value Reference Range Interpretation [...] 33.6 g/dL 31.2-35.0 RDW-SD (test code = 21725-7) 39.2 fL 38.5-51.6 RDW-CV (test code = 788-0) 12.7 % 12.1-15.4 PLT (test code = 777-3) 363 150-328 H MPV (test code = 60651-4) 9.2 fL 9.8-13.0 L NRBC/100 WBC (test code = 4932107525) 0.0 0.0-10.0 NRBC x10^3 (test code = 9906739092) See_Comment [Automated messa ge] The system which generated this result transmitted reference range: 10*3/?L. The reference range was not used to interpret this result as normal/abnormal. GRAN MAT (NEUT) % (test code = 770-8) 46.3 % IMM GRAN % (test code = 4538188183) 0.30 % LYMPH % (test code = 736-9) 38.2 % MONO % (test code = 5905-5) 10.5 % EOS % (test code = 713-8) 3.9 % BASO % (test code = 706-2) 0.8 % GRAN MAT x10^3(ANC) (test code = 0783440010) 3.49 10*3/uL 1.99-6.95 IMM GRAN x10^3 (test code = 0142381829) 0.00-0.06 LYMPH x10^3 (test code = 731-0) 2.88 10*3/uL 1.09-3.23 MONO x10^3 (test code = 742-7) 0.79 10*3/uL 0.36-1.02 EOS x10^3 (test code = 711-2) 0.29 10*3/uL 0.06-0.53 BASO x10^3 (test code = 704-7) 0.06 10*3/uL 0.01-0.09 Lab Interpretation (test code = 53368-5) Abnormal [facility] CampusPO[facility] GLUCOSE (AUTOMATED)2024-02-24 06:11:01* Test Item Value Reference Range Interpretation Comme nts POCT GLU (test code = 1268504983) 227 mg/dL 70-110 H Lab Interpretation (test cod e = 82521-2) Abnormal [facility] CampusGLUBED2023-12-19 16:12:00* Test Item Value Reference Range Interpretation Comme nts GLUBED (test code = GLUBED) 237 mg/dL 74-106 H Performed by cer tified shellfish dredge operator at [facility] [id number] 11:26:00* Test Item Value Reference Range Interpretation Comme nts GLUBED (test code = GLUBED) 259 mg/dL 74-106 H Performed by cer tified shellfish dredge operator at [facility] [id number] 06:28:00* Test Item Value Reference Range Interpretation Comme nts GLUBED (test code = GLUBED) 191 mg/dL 74-106 H Performed by cer tified shellfish dredge operator at [facility] [id number] 05:29:00* Test Item Value Reference Range Interpretation Comme nts GLUBED (test code = GLUBED) 212 mg/dL 74-106 H Performed by cer tified shellfish dredge operator at [facility] [id number] 00:12:00* Test Item Value Reference Range Interpretation Comme nts GLUBED (test code = GLUBED) 237 mg/dL 74-106 H Performed by cer tified shellfish dredge operator at [facility] [id number] 18:02:00* Test Item Value Reference Range Interpretation Comme nts GLUBED (test code = GLUBED) 261 mg/dL 74-106 H Performed by cer tified shellfish dredge operator at [facility] [id number] 12:13:00* Test Item Value Reference Range Interpretation Comme nts GLUBED (test code = GLUBED) 212 mg/dL 74-106 H Performed by cer tified shellfish dredge operator at [facility] [id number] 06:14:00* Test Item Value Reference Range Interpretation Comme nts GLUBED (test code = GLUBED) 259 mg/dL 74-106 H Performed by cer tified shellfish dredge operator at [facility] BASIC METABOLIC [id number] 05:34:00* Test Item Value Reference Range Interpretation [...] code = CA) 8.6 mg/dL 8.5-10.1 N [id number] 00:21:00* Test Item Value Reference Range Interpretation Comme nts GLUBED (test code = GLUBED) 357 mg/dL 74-106 H Performed by cer tified shellfish dredge operator at [facility] COMPREHENSIVE METABOLIC [id number] 22:24:00* Test Item Value Reference Range Interpretation [...] reference range due to change in reagent. [id number] 22:24:00* Test Item Value Reference Range Interpretation Comme nts PHOSPHORUS (test code = PHOS) 1.8 mg/dL 2.5-4.9 L [id number] 22:24:00* Test Item Value Reference Range Interpretation Comme nts MAGNESIUM (test code = MAG) 1.9 mg/dL 1.8-2.4 N [id number] 17:01:00* Test Item Value Reference Range Interpretation Comme nts GLUBED (test code = GLUBED) 299 mg/dL 74-106 H Performed by cer tified shellfish dredge operator at [facility] [id number] 12:14:00* Test Item Value Reference Range Interpretation Comme nts GLUBED (test code = GLUBED) 335 mg/dL 74-106 H Performed by cer tified shellfish dredge operator at [facility] [id number] 07:59:00* Test Item Value Reference Range Interpretation Comme nts GLUBED (test code = GLUBED) 329 mg/dL 74-106 H Performed by cer tified shellfish dredge operator at [facility] COMPREHENSIVE METABOLIC [id number] 06:56:00* Test Item Value Reference Range Interpretation [...] reference range due to change in reagent. [id number] 06:56:00* Test Item Value Reference Range Interpretation Comme nts PHOSPHORUS (test code = PHOS) 2.4 mg/dL 2.5-4.9 L [id number] 06:56:00* Test Item Value Reference Range Interpretation Comme nts MAGNESIUM (test code = MAG) 1.3 mg/dL 1.8-2.4 L CBC W/AUTO [id number] 06:24:00* Test Item Value Reference Range Interpretation [...] code = NRBC#) 0.00 K/mm3 0.0-0.1 N [id number] 05:49:00* Test Item Value Reference Range Interpretation Comme nts GLUBED (test code = GLUBED) 317 mg/dL 74-106 H Performed by cer tified shellfish dredge operator at [facility] [id number] 23:52:00* Test Item Value Reference Range Interpretation Comme nts GLUBED (test code = GLUBED) 364 mg/dL 74-106 H Performed by cer tified shellfish dredge operator at [facility] COMPREHENSIVE METABOLIC [id number] 15:47:00* Test Item Value Reference Range Interpretation [...] reference range due to change in reagent. [id number] 15:47:00* Test Item Value Reference Range Interpretation Comme nts PHOSPHORUS (test code = PHOS) 1.9 mg/dL 2.5-4.9 L [id number] 15:47:00* Test Item Value Reference Range Interpretation Comme nts MAGNESIUM (test code = MAG) 1.1 mg/dL 1.8-2.4 L [id number] 12:07:00* Test Item Value Reference Range Interpretation Comme nts GLUBED (test code = GLUBED) 375 mg/dL 74-106 H Performed by cer tified shellfish dredge operator at [facility] COMPREHENSIVE METABOLIC [id number] 06:42:00* Test Item Value Reference Range Interpretation [...] reference range due to change in reagent. [id number] 06:42:00* Test Item Value Reference Range Interpretation Comme nts PHOSPHORUS (test code = PHOS) 2.1 mg/dL 2.5-4.9 L [id number] 06:42:00* Test Item Value Reference Range Interpretation Comme nts MAGNESIUM (test code = MAG) 1.4 mg/dL 1.8-2.4 L CBC W/AUTO [id number] 06:15:00* Test Item Value Reference Range Interpretation [...] code = NRBC#) 0.00 K/mm3 0.0-0.1 N [id number] 06:04:00* Test Item Value Reference Range Interpretation Comme nts GLUBED (test code = GLUBED) 335 mg/dL 74-106 H Performed by cer tified shellfish dredge operator at [facility] [id number] 23:24:00* Test Item Value Reference Range Interpretation Comme nts GLUBED (test code = GLUBED) 300 mg/dL 74-106 H Performed by cer tified shellfish dredge operator at [facility] [id number] 17:17:00* Test Item Value Reference Range Interpretation Comme nts GLUBED (test code = GLUBED) 248 mg/dL 74-106 H Performed by cer tified shellfish dredge operator at [facility] HEPATIC FUNCTION [id number] 11:13:00* Test Item Value Reference Range Interpretation [...] reference range due to change in reagent. [id number] 11:13:00* Test Item Value Reference Range Interpretation Comme nts PHOSPHORUS (test code = PHOS) 4.1 mg/dL 2.5-4.9 N [id number] 11:13:00* Test Item Value Reference Range Interpretation Comme nts MAGNESIUM (test code = MAG) 1.3 mg/dL 1.8-2.4 L [id number] 11:06:00* Test Item Value Reference Range Interpretation Comme nts GLUBED (test code = GLUBED) 262 mg/dL 74-106 H Performed by cer tified shellfish dredge operator at [facility] [id number] 07:45:00* Test Item Value Reference Range Interpretation Comme nts GLUBED (test code = GLUBED) 231 mg/dL 74-106 H Performed by cer tified shellfish dredge operator at [facility] BASIC METABOLIC [id number] 06:02:00* Test Item Value Reference Range Interpretation [...] CA) 9.1 mg/dL 8.5-10.1 N CBC W/AUTO [id number] 05:50:00* Test Item Value Reference Range Interpretation [...] code = NRBC#) 0.00 K/mm3 0.0-0.1 N [id number] 05:45:00* Test Item Value Reference Range Interpretation Comme nts GLUBED (test code = GLUBED) 169 mg/dL 74-106 H Performed by cer tified shellfish dredge operator at [facility] [id number] 23:38:00* Test Item Value Reference Range Interpretation Comme nts GLUBED (test code = GLUBED) 164 mg/dL 74-106 H Performed by cer tified shellfish dredge operator at [facility] [id number] 16:06:00* Test Item Value Reference Range Interpretation Comme nts GLUBED (test code = GLUBED) 168 mg/dL 74-106 H Performed by cer tified shellfish dredge operator at [facility] [id number] 11:36:00* Test Item Value Reference Range Interpretation Comme nts GLUBED (test code = GLUBED) 168 mg/dL 74-106 H Performed by cer tified shellfish dredge operator at [facility] COMPREHENSIVE METABOLIC [id number] 10:07:00* Test Item Value Reference Range Interpretation [...] reference range due to change in reagent. [id number] 10:07:00* Test Item Value Reference Range Interpretation Comme nts PHOSPHORUS (test code = PHOS) 3.3 mg/dL 2.5-4.9 N [id number] 10:07:00* Test Item Value Reference Range Interpretation Comme nts MAGNESIUM (test code = MAG) 1.3 mg/dL 1.8-2.4 L CBC W/AUTO [id number] 09:27:00* Test Item Value Reference Range Interpretation [...] REQUIRED (test c ode = MDIFF) NO [id number] 08:20:00* Test Item Value Reference Range Interpretation Comme nts GLUBED (test code = GLUBED) 169 mg/dL 74-106 H Performed by cer tified shellfish dredge operator at [facility] [id number] 05:18:00* Test Item Value Reference Range Interpretation Comme nts GLUBED (test code = GLUBED) 158 mg/dL 74-106 H Performed by cer tified shellfish dredge operator at [facility] CBC W/AUTO [id number] 01:54:00* Test Item Value Reference Range Interpretation [...] NRBC#) 0.00 K/mm3 0.0-0.1 N COMPREHENSIVE METABOLIC [id number] 01:48:00* Test Item Value Reference Range Interpretation [...] reference range due to change in reagent. [id number] 01:48:00* Test Item Value Reference Range Interpretation Comme nts PHOSPHORUS (test code = PHOS) 3.3 mg/dL 2.5-4.9 N [id number] 01:48:00* Test Item Value Reference Range Interpretation Comme nts MAGNESIUM (test code = MAG) 1.4 mg/dL 1.8-2.4 L [id number] 23:59:00* Test Item Value Reference Range Interpretation Comme nts GLUBED (test code = GLUBED) 169 mg/dL 74-106 H Performed by randy jones shellfish dredge operator at [facility] - CT CHEST W/O [id number] 22:12:00 [facility])Name: LEANDRO LEHMAN : 1970 Sex: M Name: LEANDRO LEHMAN [facility] : 1970 Age/S: 52 / M [address] [facility] Unit #: [id number] Loc: [place] [address] Phys: Danielle Oh 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 ENGINEER Acct: [id number] Dis Date: Status: ADM IN PHONE #: [phone] Exam Date: 11/11/20232204 FAX #: [phone] Reason: eval for hypoxiaEXAMS: CPT CODE: [id number] CT CHEST W/O CONTRAST 53549 Clinical Indication: SOB; Comparison: None TECHNIQUE: Sequential [...] 1 Signed Report (CONTINUED) Name: LEANDRO LEHMAN [facility] : 1970 Age/S: 52 / M [address] [facility] Unit #: [id number] Loc: [place] [address] Phys: Danielle Oh NP Acct: [id number] Dis Date: Status: ADM IN PHONE #: [phone] Exam Date: 11/11/20232204 FAX #: [phone] Reason: eval for hypoxia EXAMS: CPT CODE: [id number] CT CHEST W/O CONTRAST 56794 (Continued) at 2212 Reported and signed by: Sachin Jameson M.D. CC: Danielle Oh NP; Lindsey Coyle MD; Sang Rey MD; Davion Duckworth MD Technologist:RT LARS CTDI: DLP: Trnscb Date/Time: 11/11/2023 (2211) [email or web address] Orig Print D/T: S: 11/11/2023 (2214) PAGE 2 Signed ReportGLUBED 2023-11-11 18:14:00* Test Item Value Reference Range Interpretation Comme nts GLUBED (test code = GLUBED) 170 mg/dL 74-106 H Performed by randy jones shellfish dredge operator at [facility] - XR CHEST 1 [id number] 14:49:00 [facility] ([facility])Name: LEANDRO LEHMAN : 1970 Sex: M FAX: Meryl Rey MD [place]: St: [facility] FAX: ArturestrellaLindsey Damian FAX: Sang Helms MD [phone] FAX: Davion Duckworth MD Name: LEANDRO LEHMAN [facility] : 1970 Age/S: 52/M [address] [facility] Unit #: [id number] Loc: [address] [address] Phys: Meryl Rey MD Acct: [id number] Dis Date: Status: ADM IN PHONE #: [phone] Exam Date: 11/11/2023 1407 FAX #: [phone] Reason: RESPIRATORY FAILURE EXAMS: CPT CODE: [id number] XR CHEST 1 V 14142 REASON FOR EXAM: RESPIRATORY FAILURE ExamOrder Date: 11/11/2023 1:41 PM Ordering M.D.: Meryl [...] however no airspace disease is seen. Location: [facility] at 1449 Reported and signed by: Jamie Aguilar MD CC: Meryl Rey MD; Lindsey Coyle MD; Sang Rey MD; Davion Duckworth MD Technologist: Jessica Smith RT(R); Esther Pearl RT(R) Trnscrd Date/Time/By: 11/11/2023 (3841) : By: [email or web address] Orig Print D/T: S: 11/11/2023 (1475) PAGE 1Signed Report [id number] 11:42:00* Test Item Value Reference Range Interpretation Comme nts GLUBED (test code = GLUBED) 194 mg/dL 74-106 H Performed by cer tified shellfish dredge operator at [facility] [id number] 05:25:00* Test Item Value Reference Range Interpretation Comme nts GLUBED (test code = GLUBED) 151 mg/dL 74-106 H Performed by cer tified shellfish dredge operator at [facility] COMPREHENSIVE METABOLIC [id number] 01:31:00* Test Item Value Reference Range Interpretation [...] reference range due to change in reagent. [id number] 01:31:00* Test Item Value Reference Range Interpretation Comme nts PHOSPHORUS (test code = PHOS) 3.5 mg/dL 2.5-4.9 N [id number] 01:31:00* Test Item Value Reference Range Interpretation Comme nts MAGNESIUM (test code = MAG) 1.7 mg/dL 1.8-2.4 L CBC W/AUTO [id number] 01:08:00* Test Item Value Reference Range Interpretation [...] code = NRBC#) 0.00 K/mm3 0.0-0.1 N [id number] 00:02:00* Test Item Value Reference Range Interpretation Comme nts GLUBED (test code = GLUBED) 176 mg/dL 74-106 H Performed by cer tified shellfish dredge operator at [facility] [id number] 18:44:00* Test Item Value Reference Range Interpretation [...] URL. These results were obtained using [employer] IM TnIHreagent. Results from different methodologies should not becompared to one another as quantitative results and URLs mayvary by method. NOTE: A Positive Bias may occur for patients taking Biotin Supplements.NOTE: Current test methodology (pg/mL) units differ from prior test methodology (ng/mL) by a factor of 1000. [id number] 17:04:00* Test Item Value Reference Range Interpretation Comme nts GLUBED (test code = GLUBED) 158 mg/dL 74-106 H Performed by cer tified shellfish dredge operator at [facility] INFLUENZA A B [id number] 16:12:00* Test Item Value Reference Range Interpretation Comme nts INFLUENZA A POC (test code = INFLAAG) Negative Negative INFLUENZA B POC (test code = INFLBAG) Negative Negative - CT ABD PELVIS W/O [id number] 16:12:00 [facility])Name: LEANDRO LEHMAN : 1970 Sex: M Name: LEANDRO LEHMAN [facility] : 1970 Age/S: 52 / M [address] Unit #: [id number] Loc: [place] [address] Phys: Meryl Rey MD Acct: [id number] Dis Date: Status: ADM IN PHONE #: [phone] Exam Date: 11/10/2023 1528 FAX #: [phone] Reason: ABDOMINAL PAIN/VOMETING EXAMS: CPT CODE: [id number] CT ABD PELVIS W/O CONT 17522 REASON FOR EXAM: ABDOMINAL PAIN/VOMETING EXAM ORDER [...] 1 Signed Report (CONTINUED) Name: LEANDRO LEHMAN [facility] : 1970 Age/S: 52 / M [address] [facility] Unit #: [id number] Loc: [place] [address] Phys: Meryl Rey MD Acct: [id number] Dis Date: Status: ADM IN PHONE #: [phone] Exam Date: 11/10/2023 1528 FAX #: [phone] Reason: ABDOMINAL PAIN/VOMETING EXAMS: CPT CODE: [id number] CT ABD PELVIS W/O CONT 61136 (Continued) IMPRESSION: No acute intra-abdominal findings. Location: [facility] at 1612 Reported andsigned by: Jamie Aguilar MD CC: Meryl Rey MD; Jeremias Ibarra MD; Sang Rey MD; Pete Duckworth Technologist:Renay Aleman RT(R),CT CTDI: DLP: Trnscb Date/Time: 11/10/2023 (993) t.KEITHR.RR31 Orig Print D/T: S: 11/10/2023 (4880) PAGE 2 Signed ReportB-TYPE NATRIURETIC [id number] 16:07:00* Test Item Value Reference Range Interpretation Comme nts B-TYPE NATRIURETIC PEPTIDE (test code = BNP) 19.6 pgram/mL 0-100 N - CT HEAD/BRAIN W/O [id number] 16:07:00 [facility] 1970 Sex: M Name: LEANDRO LEHMAN [facility] : 1970 Age/S: 52 / M [address] [facility] Unit #: [id number] Loc: [place] [address] Phys: Meryl Rey MD Acct: [id number] Dis Date: Status: ADM IN PHONE #: [phone] Exam Date: 11/10/2023 1528 FAX #: [phone] Reason: S/P FALL EXAMS: CPT CODE: [id number] CT HEAD/BRAIN W/O CONT 08383 HISTORY: S/P FALL TECHNIQUE: Noncontrast 2.5 mm [...] are unremarkable. IMPRESSION: Negative CT head. Location: [facility] at 1607 Reported and signed by: Jamie Aguilar MD CC: Meryl Rey MD; Jeremias Ibarra MD; Sang Rey MD; Davion Duckworth MD Technologist:Renay Aleman RT(R),CT CTDI: DLP: Trnscb Date/Time: 11/10/2023 (1606) [email or web address] Orig Print D/T: S: 11/10/2023 (7764) PAGE 1 Signed QtjuilRULSPDJV-[id number] 15:47:00* Test Item Value Reference Range Interpretation [...] URL. These results were obtained using [employer] IM TnIHreagent. Results from different methodologies should not becompared to one another as quantitative results and URLs mayvary by method. NOTE: A Positive Bias may occur for patients taking Biotin Supplements.NOTE: Current test methodology (pg/mL) units differ from prior test methodology (ng/mL) by a factor of 1000. ARTERIAL BLOOD [id number] 14:20:00* Test Item Value Reference Range Interpretation [...] 18.0-22.0 L - XR ABDOMEN AP 1 [id number] 14:19:00 [facility])Name: LEANDRO LEHMAN : 1970 Sex: M FAX: Meryl Rey MD [place]: St: [facility] FAX: Lupe Boo MD [phone] FAX: Sang Helms MD [phone] FAX: Davion Duckworth MD Name: LEANDRO LEHMAN [facility] : 1970 Age/S: 52/M [address] [facility] Unit #: [id number] Loc: [address] [address] Phys: Meryl Rey MD Acct: [id number] Date: Status: ADM IN PHONE #: [phone] Exam Date: 11/10/2023 1345 FAX #: [phone] Reason: NAUSEA/VOMETING EXAMS: CPT CODE: [id number] XR ABDOMEN AP 1 V 12760 HISTORY: NAUSEA/VOMETING PROCEDURE: - XR ABDOMEN AP 1 V COMPARISON: None FINDINGS: Nonobstructive bowel gas pattern. No significant stool burden. No intra-abdominal mass effect. No abnormal calcifications are observed. Visualized osseous structures are intact. Visualized thorax is within normal limits. IMPRESSION: No radiographic evidence of acute intra-abdominal process. Location: [facility] at 1419 Reported and signed by: Jamie Aguilar MD CC: Meryl Rey MD; Lupe Bailon MD; Sang Rey MD; Davion Duckworth MD Technologist: Catherine Lorenzo RT(R) Trnscrd Date/Time/By:11/10/2023 (1419) : By: Cole.RR31 Orig Print D/T: S: 11/10/2023 (6024) PAGE 1 Signed ReportURINALYSIS [id number] 12:26:00* Test Item Value Reference Range Interpretation Comme nts UA COLOR (test code = COLU) Light-Yellow YELLOW UA APPEARANCE (test code = APPU) CLEAR CLEAR IS THE SAMPLE FROM ER OR L&D?N IF THE ANSWER IS NO,PLEASE DOCUMENT TWO RN SIGNATURES HERE- [id number], [id number] 11/10/23 1226 UA GLUCOSE DIPSTICK (test code [...] NEGATIVE UA NITRITE DIPSTICK (test code = UGSTABO) NEGATIVE NEGATIVE UA LEUKOCYTE ESTERASE W REFLEX [...] #/LPF FEW Urine Source? Clean CatchCOMPREHENSIVE METABOLIC [id number] 12:03:00* Test Item Value Reference Range Interpretation [...] change in reagent. - XR CHEST 1 A2022-27-05 11:57:00 [facility] ([facility])Name: LEANDRO LEHMAN : 1970 Sex: M FAX: Meryl Rey MD [place]: B St: ADM FAX: Lupe Boo MD [phone] FAX: Sang Helms MD [phone] FAX: Davion Duckworth MD Name: LEANDRO LEHMAN [facility] : 1970 Age/S: 52/M [address] [facility] Unit #: [id number] Loc: V.[address] [place] [address] Phys: Meryl Rey MD Acct: [id number] Dis Date: Status: ADM IN PHONE #: [phone] Exam Date: 11/10/2023 1140 FAX #: [phone] Reason: respiratory failure EXAMS: CPT CODE: [id number] XR CHEST 1 V 52866 HISTORY: Respiratory failure. COMPARISON: Chest x-ray from September 24, 2022. Location: [facility]. Right jugular catheter with the tip projected over the SVC. Patchy left interstitial infiltrate. No effusion or congestion. Mild cardiomegaly. IMPRESSION: Patchy left interstitial infiltrate. at 1157 Reported and signed by: Arnaud Duggan M.D. CC: Meryl Rey MD; Lupe Bailon MD; Sang Rey MD; Davion Duckworth MD Technologist: Mauricio Palomares RT(R) Trnscrd Date/Time/By:11/10/2023 (4340) : By: MatthewTH4 Orig Print D/T: S: 11/10/2023 (7563) PAGE 1 Signed ReportLACTIC [id number] 11:54:00* Test Item Value Reference Range Interpretation Comme nts LACTIC ACID (test code = LACT) 0.8 mmol/L 0.4-1.9 N PROTHROMBIN [id number] 11:53:00* Test Item Value Reference Range Interpretation [...] (2.5-3.5) IS PATIENT ON ANTICOAGULANTS? NCBC W/AUTO [id number] 11:51:00* Test Item Value Reference Range Interpretation [...] NRBC#) 0.00 K/mm3 0.0-0.1 N REAGENT STRIP/BLOOD [id number] 00:00:00* Test Item Value Reference Range Interpretation Comme nts BLOOD SUGAR (test code = 456739) 263 mg/dL 65-99 A Lab Interpretation (test cod e = 92182-0) Abnormal Maisha Seybold - ExternalTELERETINAL DIABETIC [id number] 15:16:00* Test Item Value Reference Range Interpretation Comme nts IMP (test code = IMP) 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 PlanRepeat diabetic retinopathy screening in 1 year Lab Interpretation (test code = 07440-8) Abnormal [facility] ExternalPOCT GLUCOSE (AUTOMATED)2022-11-12 17:36:05* Test Item Value Reference Range Interpretation Comme nts POCT GLU (test code = 1405966997) 186 mg/dL 70-110 H Lab Interpretation (test cod e = 29263-9) Abnormal [facility] GLUCOSE (AUTOMATED)2022-11-12 14:01:05* Test Item Value Reference Range Interpretation Comme nts POCT GLU (test code = 7675269095) 143 mg/dL 70-110 H Lab Interpretation (test cod e = 48049-6) Abnormal [facility] GLUCOSE (AUTOMATED)2022-11-12 02:11:38* Test Item Value Reference Range Interpretation Comme nts POCT GLU (test code = 8027268084) 185 mg/dL 70-110 H Lab Interpretation (test cod e = 25331-2) [facility]-11 22:21:02* Test Item Value Reference Range Interpretation Comme nts POCT GLU (test code = 0665485488) 153 mg/dL 70-110 H Lab Interpretation (test cod e = 17583-7) [facility]2022-[facility]-11 17:34:44* Test Item Value Reference Range Interpretation Comme nts POCT GLU (test code = 6469977346) 158 mg/dL 70-110 H Lab Interpretation (test cod e = 77819-2) Abnormal [facility] GLUCOSE (AUTOMATED)2022-11-11 13:54:40* Test Item Value Reference Range Interpretation Comme nts POCT GLU (test code = 0099619428) 145 mg/dL 70-110 H Lab Interpretation (test cod e = 77959-6) Abnormal [facility] GLUCOSE (AUTOMATED)2022-11-11 02:46:38* Test Item Value Reference Range Interpretation Comme nts POCT GLU (test code = 4855541147) 230 mg/dL 70-110 H Lab Interpretation (test cod e = 81426-9) Abnormal [facility] GLUCOSE (AUTOMATED)2022-11-10 22:41:53* Test Item Value Reference Range Interpretation Comme nts POCT GLU (test code = 3243201190) 161 mg/dL 70-110 H Lab Interpretation (test cod e = 16038-9) Abnormal [facility] GLUCOSE (AUTOMATED)2022-11-10 22:09:00* Test Item Value Reference Range Interpretation Comme nts POCT GLU (test code = 6427807363) 140 mg/dL 70-110 H Lab Interpretation (test cod e = 36930-8) Abnormal [facility] GLUCOSE (AUTOMATED)2022-11-10 14:40:30* Test Item Value Reference Range Interpretation Comme nts POCT GLU (test code = 7995699638) 140 mg/dL 70-110 H Lab Interpretation (test cod e = 53502-4) Abnormal [facility] GLUCOSE (AUTOMATED)2022-11-10 13:39:06* Test Item Value Reference Range Interpretation Comme nts POCT GLU (test code = 7249280382) 129 mg/dL 70-110 H Lab Interpretation (test cod e = 40727-1) Abnormal [facility] GLUCOSE (AUTOMATED)2022-11-10 03:12:17* Test Item Value Reference Range Interpretation Comme nts POCT GLU (test code = 0471647273) 142 mg/dL 70-110 H Lab Interpretation (test cod e = 19241-8) Abnormal [facility] GLUCOSE (AUTOMATED)2022-11-07 22:01:53* Test Item Value Reference Range Interpretation Comme nts POCT GLU (test code = 6109713126) 150 mg/dL 70-110 H Lab Interpretation (test cod e = 88817-4) Abnormal [facility] GLUCOSE (AUTOMATED)2022-11-07 17:30:01* Test Item Value Reference Range Interpretation Comme nts POCT GLU (test code = 5226862115) 178 mg/dL 70-110 H Lab Interpretation (test cod e = 65857-7) Abnormal [facility] GLUCOSE (AUTOMATED)2022-11-07 14:17:47* Test Item Value Reference Range Interpretation Comme nts POCT GLU (test code = 0755471721) 156 mg/dL 70-110 H Lab Interpretation (test cod e = 92831-4) Abnormal [facility] GLUCOSE (AUTOMATED)2022-11-07 03:33:30* Test Item Value Reference Range Interpretation Comme nts POCT GLU (test code = 7309728150) 153 mg/dL 70-110 H Lab Interpretation (test cod e = 87578-9) Abnormal [facility] GLUCOSE (AUTOMATED)2022-11-06 22:57:40* Test Item Value Reference Range Interpretation Comme nts POCT GLU (test code = 3103533604) 139 mg/dL 70-110 H Lab Interpretation (test cod e = 48236-2) [facility]normal [facility] SITFYYR-QVJAUCQA0153-39-08 22:26:29* Test Item Value Reference Range Interpretation Comme nts BOH (test code = 2386474869) 3.0 mmol/L ZULEIMA (test code = ZULEIMA) Normal Ranges: ? ? Nonfasting ? Less than 0.1 mmol/L ? ? Overnight Fast ? ? ? Less than 0.4 mmol/L ? ? Fasting (1-2 weeks) ?6-8 mmol/L Test developed and characteristics determined by [facility] Laboratory Services. [facility] Metabolic Panel (Na, K, Cl, CO2, Glucose, BUN, Creatinine, Ca)2022-11-06 21:22:03* Test Item Value Reference Range Interpretation Comme nts NA (test code = 5750553834) 136 mmol/L 135-145 K (test code = 3772722405) 3.9 mmol/L 3.5-5.0 Slight hemolysis CL (test code = 7719933960) 109 mmol/L 98-108 H CO2 TOTAL (test code = 3956833134) 15 mmol/L 23-31 L AGAP (test code = 8201648756) 2-16 BUN (test code = 7546574412) 7-23 L Slight hemolysis GLUCOSE (test code = 9820478336) 171 mg/dL 70-110 H CREATININE (test code = 9741383653) 0.49 mg/dL 0.60-1.25 L CALCIUM (test code = 0602353107) 7.9 mg/dL 8.6-10.6 L eGFR (test code = 8929218093) mL/min/1.73m2 ZULEIMA (test code = ZULEIMA) Association [...] imaging tests). Lab Interpretation (test code = 07090-0) Abnormal [facility] (AUTOMATED)2022-11-06 16:16:50* Test Item Value Reference Range Interpretation Comme [facility] POCT GLU (test code = 8090104859) 163 mg/dL 70-110 H Lab Interpretation (test cod e = 88256-9) [facility]normal [facility] (Na, K, Cl, CO2, Glucose, BUN, Creatinine, Ca)2022-11-06 12:51:08* Test Item Value Reference Range Interpretation Comme [facility] NA (test code = 3138888421) 135 mmol/L 135-145 K (test code = 3694606551) 4.7 mmol/L 3.5-5.0 Slight hemolysis CL (test code = 6886049952) 110 mmol/L 98-108 H CO2 TOTAL (test code = 2184944316) 12 mmol/L 23-31 L AGAP (test code = 3932322793) 2-16 BUN (test code = 8396968633) 3 mg/dL 7-23 L Slight hemolysis GLUCOSE (test code = 2183595211) 152 mg/dL 70-110 H CREATININE (test code = 3272092053) 0.62 mg/dL 0.60-1.25 CALCIUM (test code = 2129122895) 8.3 mg/dL 8.6-10.6 L eGFR (test code = 0531818837) mL/min/1.73m2 ZULEIMA (test code = ZULEIMA) Association [...] imaging tests). Lab Interpretation (test code = 79669-1) Abnormal [facility] GLUCOSE (AUTOMATED)2022-11-06 11:27:27* Test Item Value Reference Range Interpretation Comme nts POCT GLU (test code = 4363876702) 139 mg/dL 70-110 H Lab Interpretation (test cod e = 42190-2) Abnormal [facility] GLUCOSE (AUTOMATED)2022-11-06 09:28:37* Test Item Value Reference Range Interpretation Comme nts POCT GLU (test code = 8807226108) 137 mg/dL 70-110 H Lab Interpretation (test cod e = 76145-1) Abnormal [facility] GLUCOSE(AGE >30DAYS)2022-11-06 08:15:00* Test Item Value Reference Range Interpretation Comme nts POCT Glu (age>30days) (test code = 3342) 107 mg/dL 70-110 Lab Interpretation (test cod e = 72874-4) Normal [facility] GLUCOSE (AUTOMATED)2022-11-06 06:58:20* Test Item Value Reference Range Interpretation Comme nts POCT GLU (test code = 5282093653) 96 mg/dL 70-110 Lab Interpretation (test cod e = 20312-2) Normal [facility] GLUCOSE(AGE >30DAYS)2022-11-06 06:58:00* Test Item Value Reference Range Interpretation Comme nts POCT Glu (age>30days) (test code = 3342) 96 mg/dL 70-110 Lab Interpretation (test cod e = 81337-6) [id number] 05:12:24* Test Item Value Reference Range Interpretation Comments TROPONIN I (test code = 4810470734) 0.003 ng/mL See_Comment [Automated message] The system [...] of biotin. Lab Interpretation (test code = 71326-9) Normal [facility] [id number] 05:09:22* Test Item Value Reference Range Interpretation Comme nts NT-proBNP (test code = 9906881927) 58 pg/mL See_Comment [Automated message] The system which generated this result transmitted reference range: <=125. The reference range was not used to interpret this result as normal/abnormal. ZULEIMA (test code = ZULEIMA) Biotin has been reported to cause a negative bias, interpret results relative to patient's use of biotin. Lab Interpretation (test code = 54264-5) Normal [facility] MET[facility]OLIC PANEL (71117)2022-11-06 05:00:43* Test Item Value Reference Range Interpretation Comme nts NA (test code = 2200231208) 135 mmol/L 135-145 K (test code = 1128587336) 4.3 mmol/L 3.5-5.0 CL (test code = 4602339623) 106 mmol/L 98-108 CO2 TOTAL (test code = 0820844702) 11 mmol/L 23-31 L AGAP (test code = 4834921693) 2-16 H BUN (test code = 9517609494) 3 mg/dL 7-23 L GLUCOSE (test code = 1314693471) 129 mg/dL 70-110 H CREATININE (test code = 1879949407) 0.71 mg/dL 0.60-1.25 TOTAL BILI (test code = 5413400887) 1.0 mg/dL 0.1-1.1 CALCIUM (test code = 3423053721) 8.7 mg/dL 8.6-10.6 T PROTEIN (test code = 1850632096) 6.6 g/dL 6.3-8.2 ALBUMIN (test code = 9723275915) 3.9 g/dL 3.5-5.0 ALK PHOS (test code = 6701982030) 85 U/L 34-122 ALTv (test code = 1742-6) 125 U/L 5-50 H AST(SGOT) (test code = 7624646057) 39 U/L 13-40 eGFR (test code = 2411174000) mL/min/1.73m2 ZULEIMA (test code = ZULEIMA) Association [...] imaging tests). Lab Interpretation (test code = 26285-8) Abnormal [facility]2022-[facility] 05:00:43* Test Item Value Reference Range Interpretation Comme nts LIPASE (test code = 4517833492) 105 U/L 0-220 Lab Interpretation (test cod e = 46162-4) Normal [facility] WITH [id number] 04:33:58* Test Item Value Reference Range Interpretation Comme nts WBC (test code = 6690-2) See_Comment [Automated [address]] The system which generated this result transmitted [...] 32.9 g/dL 31.2-35.0 RDW-SD (test code = 99192-6) 47.2 fL 38.5-51.6 RDW-CV (test code = 788-0) 14.2 % 12.1-15.4 PLT (test code = 777-3) See_Comment [Automated Everyone [employer] ge] The system which generated this result transmitted reference range: 150 - 328 10*3/?L. The reference range was not used to interpret this result as normal/abnormal. MPV (test code = 81353-8) 8.5 fL 9.8-13.0 L NRBC/100 WBC (test code = 8783166888) See_Comment [Automated [employer]] The system which generated this result transmitted reference range: 0.0 - 10.0 /100 WBCs. The reference range was not used to interpret this result as normal/abnormal. NRBC x10^3 (test code = 2896682497) See_Comment [Automated Everyone [employer] ge] The system which generated this result transmitted reference range: 10*3/?L. The reference range was not used to interpret this result as normal/abnormal. GRAN MAT (NEUT) % (test code = 770-8) 53.8 % IMM GRAN % (test code = 2772058160) 0.60 % LYMPH % (test code = 736-9) 34.6 % MONO % (test code = 5905-5) 8.3 % EOS % (test code = 713-8) 2.4 % BASO % (test code = 706-2) 0.3 % GRAN MAT x10^3(ANC) (test code = 9554080560) 3.85 10*3/uL 1.99-6.95 IMM GRAN x10^3 (test code = 1204774688) 0.04 10*3/uL 0.00-0.06 LYMPH x10^3 (test code = 731-0) 2.47 10*3/uL 1.09-3.23 MONO x10^3 (test code = 742-7) 0.59 10*3/uL 0.36-1.02 EOS x10^3 (test code = 711-2) 0.17 10*3/uL 0.06-0.53 BASO x10^3 (test code = 704-7) 0.01-0.09 Lab Interpretation (test code = 32207-1) Abnormal [facility]ST 1 [id number] 09:27:00 [facility] 1970 Sex: M Name: LEANDRO LEHMAN [facility] : 1970 Age/S: 51 / M [address] [place] Unit #: [id number] Loc: [place] [address] Phys: Randall Veloz MD Acct: [id number] Dis Date: Status: REG BARBARA #: [phone] Exam Date: 09/24/2022 0910 FAX #: Reason: PRE OP EXAMS: CPT: [id number] XR CHEST 1 V 60593 Fluoro Time: DAP (Gy m2): Air Kerma (mGy): EXAMINATION: - XR CHEST 1 V. LOCATION: U19.HISTORY: PRE OP, GERD. COMPARISON: None. FINDINGS: Examination is limited due to portable techniqueand patient body habitus. Cardiac silhouette/Mediastinal contour: Prominence of cardiac silhouette.Lungs: No focal consolidation. No large pleural effusion. Osseous Structures: Mild degenerative changes affect thoracic spine. IMPRESSION: No focal consolidation. Prominence of cardiac silhouette. at 0927 Reported and signed by: Sil Hooks M.D. CC: Randall Veloz MD; Lukasz Saul MD PAGE 1 Signed Report Name: LEANDRO LEHMAN [facility] : 1970 Age/S: 51 / M [address] [place] Unit #: [id number] Loc: [place] [address] Phys: Randall Veloz MD Acct: [id number] Dis Date: Status: REG [facility] [place]ONE #: [phone] Exam Date: 09/24/2022 0910 FAX #: Reason: PRE OP EXAMS: CPT: [id number] XR CHEST1 V 59626 Fluoro Time: DAP (Gy m2): Air Kerma (mGy): (Continued) Technologist: Delano Sorenson, RT(R)(CT) Trnscb Date/Time: 09/24/2022 (926) [email or web address] Orig Print D/T: S: 09/24/2022 (34) PAGE 2 Signed [facility] W/AUTO [id number] 09:06:00* Test Item Value Reference Range Interpretation [...] = MDIFF) NO DIFF/SCN CRITERIA BASIC METABOLIC [id number] 09:00:00* Test Item Value Reference Range Interpretation [...] 8.9 MG/DL 8.5-10.1 N COVID 19 INHOUSE [id number] 08:52:00* Test Item Value Reference Range Interpretation Comme nts COVID 19 INHOUSE AG (test code = [id number]) NEGATIVE Negative Per filer finish , negative results should be treated aspresumptive [...] Comme nts POCT GLU (test code = 0613326437) 193 mg/dL 70-110 H Lab Interpretation (test cod e = 57483-7) Abnormal [facility] GLUCOSE (AUTOMATED)2022-09-04 13:42:12* Test Item Value Reference Range Interpretation Comme nts POCT GLU (test code = 9913678234) 185 mg/dL 70-110 H Lab Interpretation (test cod e = 58222-8) Abnormal [facility] GLUCOSE (AUTOMATED)2022-09-04 05:36:51* Test Item Value Reference Range Interpretation Comme nts POCT GLU (test code = 0346336923) 204 mg/dL 70-110 H Lab Interpretation (test cod e = 64165-8) Abnormal [facility] CampusGLYCOSYLATED HEMOGLOBIN (A1C)2022-09-04 05:24:19* Test Item Value Reference Range Interpretation Comme nts HGB A1C (test code = 4548-4) 9.2 % 4-5.7 H ZULEIMA (test code = ZULEIMA) Reference RangesNormal: <5.7%Prediabetes: 5.7 - 6.4%Diabetes: > 6.5% Lab Interpretation (test code = 99038-7) Abnormal [facility] CampusTROP[facility]IN [id number] 22:58:29* Test Item Value Reference Range Interpretation Comments TROPONIN I (test code = 0853706405) 0.002 ng/mL See_Comment [Automated message] The system [...] of biotin. Lab Interpretation (test code = 86608-4) Normal [facility] [id number] 22:55:11* Test Item Value Reference Range Interpretation Comme nts NT-proBNP (test code = 8515687423) 29 pg/mL See_Comment [Automated message] The system which generated this result transmitted reference range: <=125. The reference range was not used to interpret this result as normal/abnormal. ZULEIMA (test code = ZULEIMA) Biotin has been reported to cause a negative bias, interpret results relative to patient's use of biotin. Lab Interpretation (test code = 26054-5) Normal [facility] CampusACTIVATED PARTIAL THRMPLAS [id number] 22:51:28* Test Item Value Reference Range Interpretation Comme nts APTT Patient (test code = 3173-2) See_Comment L [Automated message] The system which generated this result transmitted reference range: 23 - 38 Seconds. The reference range was not used to interpret this result as normal/abnormal. ZULEIMA (test code = ZULEIMA) The [facility] patient population mean normal value for aPTT is 30 seconds. Lab Interpretation (test code = 78856-1) Abnormal [facility]. METABOLIC PANEL (56391)2022-09-03 22:46:28* Test Item Value Reference Range Interpretation Comme nts NA (test code = 0877692362) 137 mmol/L 135-145 K (test code = 4333384367) 5.1 mmol/L 3.5-5 H CL (test code = 0290776110) 103 mmol/L 98-108 CO2 TOTAL (test code = 6568945655) 21 mmol/L 23-31 L AGAP (test code = 7571083011) 2-16 BUN (test code = 8070565405) 18 mg/dL 7-23 GLUCOSE (test code = 9253716081) 360 mg/dL 70-110 H CREATININE (test code = 7637364842) 0.84 mg/dL 0.6-1.25 TOTAL BILI (test code = 6522020610) 0.7 mg/dL 0.1-1.1 CALCIUM (test code = 9568810726) 9.2 mg/dL 8.6-10.6 T PROTEIN (test code = 3960487494) 6.7 g/dL 6.3-8.2 ALBUMIN (test code = 0118515971) 4.3 g/dL 3.5-5 ALK PHOS (test code = 8391366470) 140 U/L 34-122 H ALTv (test code = 1742-6) 727 U/L 5-50 H AST(SGOT) (test code = 7593371506) 348 U/L 13-40 H eGFR (test code = 5542341000) mL/min/1.73m2 ZULEIMA (test code = ZULEIMA) Association [...] imaging tests). Lab Interpretation (test code = 11019-0) Abnormal [facility]2022-[facility] 22:46:09* Test Item Value Reference Range Interpretation Comme nts LIPASE (test code = 9807111009) 252 U/L 0-220 H Lab Interpretation (test cod e = 51984-1) Abnormal [facility] CampusCBC WITH [id number] 22:35:24* Test Item Value Reference Range Interpretation Comme nts WBC (test code = 6690-2) See_Comment [Automated [address]] The system which generated this result transmitted reference range: 4.20 - 10.70 10*3/?L. The reference range was not used to interpret this result as normal/abnormal. RBC (test code = 789-8) See_Comment [Automated [address]] The system which generated this result transmitted [...] 32.6 g/dL 31.2-35 RDW-SD (test code = 66090-7) 50.6 fL 38.5-51.6 RDW-CV (test code = 788-0) 16.0 % 12.1-15.4 H PLT (test code = 777-3) See_Comment [Automated messa ge] The system which generated this result transmitted reference range: 150 - 328 10*3/?L. The reference range was not used to interpret this result as normal/abnormal. MPV (test code = 72796-0) 9.1 fL 9.8-13 L NRBC/100 WBC (test code = 9638913136) See_Comment [Automated [employer]] The system which generated this result transmitted reference range: 0.0 - 10.0 /100 WBCs. The reference range was not used to interpret this result as normal/abnormal. NRBC x10^3 (test code = 5680473161) See_Comment [Automated Everyone [employer] ge] The system which generated this result transmitted reference range: 10*3/?L. The reference range was not used to interpret this result as normal/abnormal. GRAN MAT (NEUT) % (test code = 770-8) 74.4 % IMM GRAN % (test code = 4109002124) 1.60 % LYMPH % (test code = 736-9) 17.8 % MONO % (test code = 5905-5) 5.7 % EOS % (test code = 713-8) 0.1 % BASO % (test code = 706-2) 0.4 % GRAN MAT x10^3(ANC) (test code = 0927733182) 6.35 10*3/uL 1.99-6.95 IMM GRAN x10^3 (test code = 6036433157) 0.14 10*3/uL 0-0.06 H LYMPH x10^3 (test code = 731-0) 1.52 10*3/uL 1.09-3.23 MONO x10^3 (test code = 742-7) 0.49 10*3/uL 0.36-1.02 EOS x10^3 (test code = 711-2) 0.06-0.53 L BASO x10^3 (test code = 704-7) 0.03 10*3/uL 0.01-0.09 Lab Interpretation (test code = 20415-2) Abnormal [facility] GLUCOSE (AUTOMATED)2022-04-23 19:01:02* Test Item Value Reference Range Interpretation Comme nts POCT GLU (test code = 9112227209) 174 mg/dL 70-110 H Lab Interpretation (test cod e = 77312-3) Abnormal [facility] GLUCOSE (AUTOMATED)2022-04-23 16:43:23* Test Item Value Reference Range Interpretation Comme nts POCT GLU (test code = 8673855140) 162 mg/dL 70-110 H Lab Interpretation (test cod e = 87059-2) Abnormal [facility] GLUCOSE (AUTOMATED)2022-04-23 15:37:41* Test Item Value Reference Range Interpretation Comme nts POCT GLU (test code = 4711726390) 130 mg/dL 70-110 H Lab Interpretation (test cod e = 28501-7) Abnormal [facility] GLUCOSE (AUTOMATED)2022-04-23 12:54:00* Test Item Value Reference Range Interpretation Comme nts POCT GLU (test code = 5468315706) 135 mg/dL 70-110 H Lab Interpretation (test cod e = 01993-1) Abnormal [facility] METABOLIC PANEL (NA, K, CL, CO2, GLUCOSE, BUN, CREATININE, CA)2022-04-23 11:38:26* Test Item Value Reference Range Interpretation Comme nts NA (test code = 9100587631) 137 mmol/L 135-145 K (test code = 2894694755) 3.2 mmol/L 3.5-5.0 L CL (test code = 7147886814) 110 mmol/L 98-108 H CO2 TOTAL (test code = 6962518534) 19 mmol/L 23-31 L AGAP (test code = 0833901382) 2-16 BUN (test code = 8062613616) <2 7-23 L GLUCOSE (test code = 6198908220) 121 mg/dL 70-110 H CREATININE (test code = 5026407977) 0.67 mg/dL 0.60-1.25 CALCIUM (test code = 6248936439) 7.7 mg/dL 8.6-10.6 L eGFR (test code = 9828582418) mL/min/1.73m2 ZULEIMA (test code = ZULEIMA) Association [...] imaging tests). Lab Interpretation (test code = 75246-3) Abnormal [facility] ([facility])2022-04-23 11:35:25* Test Item Value Reference Range Interpretation Comme nts POCT GLU (test code = 5097793821) 135 mg/dL 70-110 H Lab Interpretation (test cod e = 05064-2) Abnormal [facility] CampusMAGNESIUM2022-05-25 11:05:56* Test Item Value Reference Range Interpretation Comme nts MAGNESIUM (test code = 6805859938) 1.7 mg/dL 1.7-2.4 Lab Interpretation (test cod e = 46570-5) Normal [facility] GLUCOSE (AUTOMATED)2022-04-23 09:37:57* Test Item Value Reference Range Interpretation Comme nts POCT GLU (test code = 9180897361) 107 mg/dL 70-110 Lab Interpretation (test cod e = 31780-9) Normal [facility] GLUCOSE (AUTOMATED)2022-04-23 07:22:08* Test Item Value Reference Range Interpretation Comme nts POCT GLU (test code = 1578364541) 146 mg/dL 70-110 H Lab Interpretation (test cod e = 09078-7) Abnormal [facility] GLUCOSE (AUTOMATED)2022-04-23 05:29:09* Test Item Value Reference Range Interpretation Comme nts POCT GLU (test code = 9778587208) 142 mg/dL 70-110 H Lab Interpretation (test cod e = 70387-5) Abnormal [facility] GLUCOSE (AUTOMATED)2022-04-23 04:10:18* Test Item Value Reference Range Interpretation Comme nts POCT GLU (test code = 7056999245) 148 mg/dL 70-110 H Lab Interpretation (test cod e = 15956-0) Abnormal [facility] GLUCOSE (AUTOMATED)2022-04-23 02:27:55* Test Item Value Reference Range Interpretation Comme nts POCT GLU (test code = 6411409361) 160 mg/dL 70-110 H Lab Interpretation (test cod e = 39927-8) Abnormal [facility] Metabolic Panel (Na, K, Cl, CO2, Glucose, BUN, Creatinine, Ca)2022-04-23 01:58:18* Test Item Value Reference Range Interpretation Comme nts NA (test code = 1404898294) 137 mmol/L 135-145 K (test code = 1141553078) 3.6 mmol/L 3.5-5.0 CL (test code = 8680962367) 109 mmol/L 98-108 H CO2 TOTAL (test code = 1758008061) 17 mmol/L 23-31 L AGAP (test code = 3835337690) 2-16 BUN (test code = 7632982479) <2 7-23 L GLUCOSE (test code = 8584491664) 162 mg/dL 70-110 H CREATININE (test code = 1556387758) 0.62 mg/dL 0.60-1.25 CALCIUM (test code = 9373056397) 8.2 mg/dL 8.6-10.6 L eGFR (test code = 8658060914) mL/min/1.73m2 ZULEIMA (test code = ZULEIMA) Association [...] imaging tests). Lab Interpretation (test code = 03817-2) Abnormal [facility] GLUCOSE (AUTOMATED)2022-04-23 01:21:32* Test Item Value Reference Range Interpretation Comme [facility] POCT GLU (test code = 8577065451) 142 mg/dL 70-110 H Lab Interpretation (test cod e = 09839-9) Abnormal [facility] GLUCOSE (AUTOMATED)2022-04-23 00:05:03* Test Item Value Reference Range Interpretation Comme [facility] POCT GLU (test code = 7960635225) 148 mg/dL 70-110 H Lab Interpretation (test cod e = 02540-7) Abnormal [facility] GLUCOSE (AUTOMATED)2022-04-22 23:06:57* Test Item Value Reference Range Interpretation Comme nts POCT GLU (test code = 9940276625) 144 mg/dL 70-110 H Lab Interpretation (test cod e = 41087-7) Abnormal [facility] GLUCOSE (AUTOMATED)2022-04-22 22:12:45* Test Item Value Reference Range Interpretation Comme nts POCT GLU (test code = 0828686422) 145 mg/dL 70-110 H Lab Interpretation (test cod e = 86417-9) Abnormal [facility]TR[facility] [id number] 21:43:14* Test Item Value Reference Range Interpretation Comments TROPONIN I (test code = 1396143051) 0.003 ng/mL See_Comment [Automated message] The system [...] of biotin. Lab Interpretation (test code = 29331-2) Normal [facility] Metabolic Panel (Na, K, Cl, CO2, Glucose, BUN, Creatinine, Ca)2022-04-22 21:31:09* Test Item Value Reference Range Interpretation Comme nts NA (test code = 2514255431) 134 mmol/L 135-145 L K (test code = 2395590037) 3.9 mmol/L 3.5-5.0 CL (test code = 0916543037) 108 mmol/L 98-108 CO2 TOTAL (test code = 2238623462) 15 mmol/L 23-31 L AGAP (test code = 8545171743) 2-16 BUN (test code = 4618443107) 2 mg/dL 7-23 L GLUCOSE (test code = 0521975331) 170 mg/dL 70-110 H CREATININE (test code = 3689126149) 0.62 mg/dL 0.60-1.25 CALCIUM (test code = 6609052614) 8.3 mg/dL 8.6-10.6 L eGFR (test code = 5379337262) mL/min/1.73m2 ZULEIMA (test code = ZULEIMA) Association [...] imaging tests). Lab Interpretation (test code = 61405-6) Abnormal [facility] GLUCOSE (AUTOMATED)2022-04-22 21:08:08* Test Item Value Reference [facility] (test code = 9901678162) 156 mg/dL 70-110 H Lab Interpretation (test cod e = 99430-1) Abnormal [facility] GLUCOSE (AUTOMATED)2022-04-22 19:48:36* Test Item Value Reference Range Interpretation Comme nts POCT GLU (test code = 0500046190) 154 mg/dL 70-110 H Lab Interpretation (test cod e = 03102-5) Abnormal [facility] GLUCOSE (AUTOMATED)2022-04-22 18:44:52* Test Item Value Reference Range Interpretation Comme nts POCT GLU (test code = 8358495049) 146 mg/dL 70-110 H Lab Interpretation (test cod e = 67036-0) Abnormal [facility] GLUCOSE (AUTOMATED)2022-04-22 17:28:16* Test Item Value Reference Range Interpretation Comme nts POCT GLU (test code = 4585338224) 148 mg/dL 70-110 H Lab Interpretation (test cod e = 20649-9) Abnormal [facility] Metabolic Panel (Na, K, Cl, CO2, Glucose, BUN, Creatinine, Ca)2022-04-22 16:11:05* Test Item Value Reference Range Interpretation Comme nts NA (test code = 2039449967) 134 mmol/L 135-145 L K (test code = 3499533074) 3.8 mmol/L 3.5-5.0 CL (test code = 4422233818) 106 mmol/L 98-108 CO2 TOTAL (test code = 6789790743) 15 mmol/L 23-31 L AGAP (test code = 8161146594) 2-16 BUN (test code = 6710959615) 4 mg/dL 7-23 L GLUCOSE (test code = 3369668804) 179 mg/dL 70-110 H CREATININE (test code = 0135670997) 0.68 mg/dL 0.60-1.25 CALCIUM (test code = 8919091241) 8.5 mg/dL 8.6-10.6 L eGFR (test code = 9006621169) mL/min/1.73m2 ZULEIMA (test code = ZULEIMA) Association [...] imaging tests). Lab Interpretation (test code = 89148-9) Abnormal [facility])2022-04-22 16:10:40* Test Item Value Reference Range Interpretation Comme [facility] POCT GLU (test code = 3511248174) 157 mg/dL 70-110 H Lab Interpretation (test cod e = 69914-7) Abnormal [facility] WITH [id number] 15:48:43* Test Item Value Reference Range Interpretation Comme [facility] WBC (test code = 6690-2) See_Comment [Automated [address]] The system which generated this result transmitted reference range: 4.20 - 10.70 10*3/?L. The reference range was not used to interpret this result as normal/abnormal. RBC (test code = 789-8) See_Comment [Automated [employer]] The system which generated this result transmitted [...] 33.7 g/dL 31.2-35.0 RDW-SD (test code = 02407-0) 38.5 fL 38.5-51.6 RDW-CV (test code = 788-0) 12.4 % 12.1-15.4 PLT (test code = 777-3) See_Comment [Automated messa ge] The system which generated this result transmitted reference range: 150 - 328 10*3/?L. The reference range was not used to interpret this result as normal/abnormal. MPV (test code = 00792-8) 9.2 fL 9.8-13.0 L NRBC/100 WBC (test code = 5068301276) See_Comment [Automated [employer]] The system which generated this result transmitted reference range: 0.0 - 10.0 /100 WBCs. The reference range was not used to interpret this result as normal/abnormal. NRBC x10^3 (test code = 8152196302) <0.01 See_Comment [Automated [employer]] The system which generated this result transmitted reference range: 10*3/?L. The reference range was not used to interpret this result as normal/abnormal. GRAN MAT (NEUT) % (test code = 770-8) 69.0 % IMM GRAN % (test code = 3221108500) 0.40 % LYMPH % (test code = 736-9) 18.9 % MONO % (test code = 5905-5) 9.1 % EOS % (test code = 713-8) 2.0 % BASO % (test code = 706-2) 0.6 % GRAN MAT x10^3(ANC) (test code = 1185530477) 6.20 10*3/uL 1.99-6.95 IMM GRAN x10^3 (test code = 3103963333) 0.04 10*3/uL 0.00-0.06 LYMPH x10^3 (test code = 731-0) 1.70 10*3/uL 1.09-3.23 MONO x10^3 (test code = 742-7) 0.82 10*3/uL 0.36-1.02 EOS x10^3 (test code = 711-2) 0.18 10*3/uL 0.06-0.53 BASO x10^3 (test code = 704-7) 0.05 10*3/uL 0.01-0.09 Lab Interpretation (test code = 19312-7) Abnormal [facility] GLUCOSE (AUTOMATED)2022-04-22 14:27:15* Test Item Value Reference Range Interpretation Comme nts POCT GLU (test code = 4336200249) 150 mg/dL 70-110 H Lab Interpretation (test cod e = 69151-5) Abnormal [facility] GLUCOSE (AUTOMATED)2022-04-22 13:41:45* Test Item Value Reference Range Interpretation Comme nts POCT GLU (test code = 5722310696) 149 mg/dL 70-110 H Lab Interpretation (test cod e = 46204-5) Abnormal [facility] GLUCOSE (AUTOMATED)2022-04-22 12:29:18* Test Item Value Reference Range Interpretation Comme nts POCT GLU (test code = 0503414237) 174 mg/dL 70-110 H Lab Interpretation (test cod e = 13537-3) Abnormal [facility] GLUCOSE (AUTOMATED)2022-04-22 11:33:37* Test Item Value Reference Range Interpretation Comme nts POCT GLU (test code = 1455272016) 159 mg/dL 70-110 H Lab Interpretation (test cod e = 37379-0) Abnormal [facility] Metabolic Panel (Na, K, Cl, CO2, Glucose, BUN, Creatinine, Ca)2022-04-22 11:30:20* Test Item Value Reference Range Interpretation Comme nts NA (test code = 3872820173) 133 mmol/L 135-145 L K (test code = 2288605347) 3.3 mmol/L 3.5-5.0 L CL (test code = 8123092451) 104 mmol/L 98-108 CO2 TOTAL (test code = 5639321498) 14 mmol/L 23-31 L AGAP (test code = 1933231014) 2-16 BUN (test code = 7439656715) 4 mg/dL 7-23 L GLUCOSE (test code = 8639813539) 172 mg/dL 70-110 H CREATININE (test code = 3255418418) 0.77 mg/dL 0.60-1.25 CALCIUM (test code = 6850751198) 8.6 mg/dL 8.6-10.6 eGFR (test code = 3109982437) mL/min/1.73m2 ZULEIMA (test code = ZULEIMA) Association [...] imaging tests). Lab Interpretation (test code = 13497-2) Abnormal [facility] GLUCOSE (AUTOMATED)2022-04-22 10:56:08* Test Item Value Reference Range Interpretation Comme [facility] POCT GLU (test code = 4390426355) 157 mg/dL 70-110 H Lab Interpretation (test cod e = 14983-2) Abnormal [facility] GLUCOSE (AUTOMATED)2022-04-22 10:56:03* Test Item Value Reference Range Interpretation Comme nts POCT GLU (test code = 8756617732) 96 mg/dL 70-110 Lab Interpretation (test cod e = 83220-3) Normal [facility] GLUCOSE (AUTOMATED)2022-04-22 09:35:36* Test Item Value Reference Range Interpretation Comme nts POCT GLU (test code = 7383124761) 158 mg/dL 70-110 H Lab Interpretation (test cod e = 82741-3) Abnormal [facility] GLUCOSE (AUTOMATED)2022-04-22 08:36:40* Test Item Value Reference Range Interpretation Comme [facility] POCT GLU (test code = 3595824660) 166 mg/dL 70-110 H Lab Interpretation (test cod e = 94267-0) Abnormal [facility] Metabolic Panel (Na, K, Cl, CO2, Glucose, BUN, Creatinine, Ca)2022-04-22 08:00:14* Test Item Value Reference Range Interpretation Comme [facility] NA (test code = 7207367051) 133 mmol/L 135-145 L K (test code = 5502663053) 3.6 mmol/L 3.5-5.0 CL (test code = 4580402247) 103 mmol/L 98-108 CO2 TOTAL (test code = 3372600582) 14 mmol/L 23-31 L AGAP (test code = 2744105555) 2-16 BUN (test code = 7055550136) 5 mg/dL 7-23 L GLUCOSE (test code = 9174868164) 172 mg/dL 70-110 H CREATININE (test code = 1595252492) 0.85 mg/dL 0.60-1.25 CALCIUM (test code = 7450396366) 9.0 mg/dL 8.6-10.6 eGFR (test code = 1868296581) mL/min/1.73m2 ZULEIMA (test code = ZULEIMA) Association [...] imaging tests). Lab Interpretation (test code = 53473-1) [facility]normal [facility] CampusOsmolality [id number] 07:46:08* Test Item Value Reference Range Interpretation Comme nts OSMOLALITY (test code = 2692-2) See_Comment [Automated Everyone [employer]] The system which generated this result transmitted reference range: 278 - 305 mOsm/kg. The reference range was not used to interpret this result as normal/abnormal. Lab Interpretation (test code = 63076-5) Normal [facility] GLUCOSE (AUTOMATED)2022-04-22 07:36:29* Test Item Value Reference Range Interpretation Comme nts POCT GLU (test code = 4186825779) 144 mg/dL 70-110 H Lab Interpretation (test cod e = 71732-7) Abnormal [facility] GLUCOSE (AUTOMATED)2022-04-22 07:36:29* Test Item Value Reference Range Interpretation Comme nts POCT GLU (test code = 0006828166) 168 mg/dL 70-110 H Lab Interpretation (test cod e = 07940-6) Abnormal [facility] CampusBetahydroxy-Rfhwkglu8506-58-27 07:26:24* Test Item Value Reference Range Interpretation Comme [facility] BOH (test code = 1177981812) 3.1 mmol/L ZULEIMA (test code = ZULEIMA) Normal Ranges: ? ? Nonfasting ? Less than 0.1 mmol/L ? ? Overnight Fast ? ? ? Less than 0.4 mmol/L ? ? Fasting (1-2 weeks) ?6-8 mmol/L Test developed and characteristics determined by [facility] Laboratory Services. [facility] Campus[facility] GLUCOSE (AUTOMATED)2022-04-22 06:32:35* Test Item Value Reference Range Interpretation Comme [facility] POCT GLU (test code = 3246876599) 155 mg/dL 70-110 H Lab Interpretation (test cod e = 49627-0) Abnormal [facility] Metabolic Panel (Na, K, Cl, CO2, Glucose, BUN, Creatinine, Ca)2022-04-22 06:02:22* Test Item Value Reference Range Interpretation Comme [facility] NA (test code = 0939793586) 134 mmol/L 135-145 L K (test code = 9337508662) 3.6 mmol/L 3.5-5.0 CL (test code = 7791565451) 104 mmol/L 98-108 CO2 TOTAL (test code = 7726621473) 11 mmol/L 23-31 L AGAP (test code = 1513190850) 2-16 H BUN (test code = 8026855566) 7 mg/dL 7-23 GLUCOSE (test code = 8169952606) 177 mg/dL 70-110 H CREATININE (test code = 4822629847) 0.81 mg/dL 0.60-1.25 CALCIUM (test code = 7496156561) 9.0 mg/dL 8.6-10.6 eGFR (test code = 7374721108) mL/min/1.73m2 ZULEIMA (test code = ZULEIMA) Association [...] imaging tests). Lab Interpretation (test code = 63246-2) Abnormal [facility] GLUCOSE (AUTOMATED)2022-04-22 04:35:23* Test Item Value Reference Range Interpretation Comme [facility] POCT GLU (test code = 4831358356) 154 mg/dL 70-110 H Lab Interpretation (test cod e = 68699-5) Abnormal [facility] GLUCOSE (AUTOMATED)2022-04-22 03:44:33* Test Item Value Reference Range Interpretation Comme [facility] POCT GLU (test code = 3803812483) 166 mg/dL 70-110 H Lab Interpretation (test cod e = 62468-1) Abnormal [facility] CampusLawvic Acid Whole [id number] 03:11:51* Test Item Value Reference Range Interpretation Comme [facility] LACTIC ACID (test code = 7784129538) 2.04 mmol/L 0.50-2.20 Lab Interpretation (test cod e = 88888-8) Normal [facility] (Na, K, Cl, CO2, Glucose, BUN, Creatinine, Ca)2022-04-22 02:17:22* Test Item Value Reference Range Interpretation Comme [facility] NA (test code = 4522136940) 134 mmol/L 135-145 L K (test code = 6434230257) 4.3 mmol/L 3.5-5.0 CL (test code = 5417297525) 101 mmol/L 98-108 CO2 TOTAL (test code = 6505504687) 10 mmol/L 23-31 L AGAP (test code = 3631402352) 2-16 H BUN (test code = 2944126953) 8 mg/dL 7-23 GLUCOSE (test code = 6457153925) 128 mg/dL 70-110 H CREATININE (test code = 0720170498) 0.92 mg/dL 0.60-1.25 CALCIUM (test code = 8779661401) 9.2 mg/dL 8.6-10.6 eGFR (test code = 8852107455) mL/min/1.73m2 ZULEIMA (test code = UZLEIMA) Association of Glomerular Filtration Rate (GFR) and [...] imaging tests). Lab Interpretation (test code = 73476-4) Abnormal [facility] GLUCOSE (AUTOMATED)2022-04-22 02:16:37* Test Item Value Reference Range Interpretation Comme nts POCT GLU (test code = 7411873538) 132 mg/dL 70-110 H Lab Interpretation (test cod e = 99354-3) Abnormal [facility] (AUTOMATED)2022-04-22 01:19:28* Test Item Value Reference Range Interpretation Comme nts POCT GLU (test code = 1563638862) 142 mg/dL 70-110 H Notified Provide r Lab Interpretation (test code = 52336-3) Abnormal [facility] CampusGlycosylated Hemoglobin (A1C)2022-04-22 01:01:17* Test Item Value Reference Range Interpretation Comme [facility] HGB A1C (test code = 4548-4) 10.5 % 4.0-5.7 H ZULEIMA (test code = ZULEIMA) Reference RangesNormal: <5.7%Prediabetes: 5.7 - 6.4%Diabetes: > 6.5% Lab Interpretation (test code = 82383-4) Abnormal [facility] CampusMagnesium [id number] 00:42:52* Test Item Value Reference Range Interpretation Comme nts MAGNESIUM (test code = 4992651365) 1.9 mg/dL 1.7-2.4 Lab Interpretation (test cod e = 29938-6) Normal [facility] CampusPhosphorus [id number] 00:42:32* Test Item Value Reference Range Interpretation Comme nts PHOSPHORUS (test code = 4256338755) 5.1 mg/dL 2.5-5.0 H Lab Interpretation (test cod e = 06406-9) Abnormal [facility] CampusAC PANEL 21 + LACTIC [id number] 00:14:12* Test Item Value Reference Range Interpretation Comme nts PH (test code = 7839188358) 7.32-7.42 L PCO2 SAKINA (test code = 0426236823) See_Comment L [Automated messa ge] The system which generated this result transmitted reference range: 41 - 51 mmHg. The reference range was not used to interpret this result as normal/abnormal. PO2 SAKINA (test code = 8939058197) See_Comment H [Automated messa ge] The system which generated this result transmitted reference range: 25 - 40 mmHg. The reference range was not used to interpret this result as normal/abnormal. HCO3 SAKINA (test code = 4245825164) See_Comment L [Automated Everyone Countsa ge] The system which generated this result transmitted reference range: 24 - 28 mEq/L. The reference range was not used to interpret this result as normal/abnormal. AC VBE(BEAKER) (test code = 0493743659) mEq/L THB SAKINA (test code = 8787471226) 16.5 g/dL 13.5-18.0 %O2HB SAKINA (test code = 2922968601) 84.9 % 52.0-63.0 H %COHB SAKINA (test code = 7629420857) 0.3 % 0.0-1.5 %METHB SAKINA (test code = 8274594141) 0.1 % 0.4-1.5 L VOL%O2 SAKINA (test code = 8063457306) 19.6 % 6.0-12.0 H NA (test code = 6669129600) 134 mmol/L 135-145 L K+ (test code = 4374978876) 3.7 mmol/L 3.5-5.0 AC CA IONZ (test code = 5946466818) 5.30 mg/dL 4.50-5.30 GLUCOSE (test code = 8886994425) 155 mg/dL 70-110 H LACTIC ACID (test code = 1811381215) 2.34 mmol/L 0.50-2.20 H Lab Interpretation (test code = 21593-4) Abnormal [facility] [id number] 23:48:43* Test Item Value Reference Range Interpretation Comments TROPONIN I (test code = 0131154113) 0.002 ng/mL See_Comment [Automated message] The system [...] of biotin. Lab Interpretation (test code = 46729-0) Normal [facility] CampusN-TERMINAL [id number] 23:45:26* Test Item Value Reference Range Interpretation Comme nts NT-proBNP (test code = 4633653627) 38 pg/mL See_Comment [Automated message] The system which generated this result transmitted reference range: <=125. The reference range was not used to interpret this result as normal/abnormal. ZULEIMA (test code = ZULEIMA) Biotin has been reported to cause a negative bias, interpret results relative to patient's use of biotin. Lab Interpretation (test code = 76547-6) Normal [facility] CampusCOMP. METABOLIC PANEL (27768)2022-04-21 23:45:16* Test Item Value Reference Range Interpretation Comme nts NA (test code = 3277605162) 134 mmol/L 135-145 L K (test code = 5078327939) 4.3 mmol/L 3.5-5.0 CL (test code = 9830933618) 100 mmol/L 98-108 CO2 TOTAL (test code = 0006552126) 8 mmol/L 23-31 L AGAP (test code = 7704237129) 2-16 H BUN (test code = 6632261461) 8 mg/dL 7-23 GLUCOSE (test code = 9950882622) 169 mg/dL 70-110 H CREATININE (test code = 2329898732) 0.93 mg/dL 0.60-1.25 TOTAL BILI (test code = 1572692540) 1.1 mg/dL 0.1-1.1 CALCIUM (test code = 7911376380) 9.8 mg/dL 8.6-10.6 T PROTEIN (test code = 3357582352) 8.2 g/dL 6.3-8.2 ALBUMIN (test code = 5125772859) 5.0 g/dL 3.5-5.0 ALK PHOS (test code = 4132507912) 106 U/L 34-122 ALTv (test code = 1742-6) 64 U/L 5-50 H AST(SGOT) (test code = 5988825951) 47 U/L 13-40 H eGFR (test code = 8215970690) mL/min/1.73m2 ZULEIMA (test code = ZULEIMA) Association [...] imaging tests). Lab Interpretation (test code = 38737-2) Abnormal [facility] CampusLIPASE2022-05-23 23:37:42* Test Item Value Reference Range Interpretation Comme [facility] LIPASE (test code = 5817976365) 106 U/L 0-220 Lab Interpretation (test cod e = 47400-2) Normal [facility] CampusPROTHROMBIN TIME / [id number] 23:30:44* Test Item Value Reference Range Interpretation Comme [facility] PROTIME PATIENT (test code = 5964-2) See_Comment [Automated [address]] The system which generated this result transmitted reference range: 12.0 - 14.7 Seconds. The reference range was not used to interpret this result as normal/abnormal. INR (test code = 6301-6) Normal INR <1.1; Warfarin Therapeutic range 2.0 to 3.0 or 2.5 to 3.5, depending upon the indications. Lab Interpretation (test code = 30987-9) Normal [facility] WITH [id number] 23:22:44* Test Item Value Reference Range Interpretation Comme nts WBC (test code = 6690-2) See_Comment H [Automated Everyone Countsa ge] The system which generated this result transmitted reference range: 4.20 - 10.70 10*3/?L. The reference range was not used to interpret this result as normal/abnormal. RBC (test code = 789-8) See_Comment H [Automated Everyone Countsa ge] The system which generated this result [...] 33.4 g/dL 31.2-35.0 RDW-SD (test code = 71772-0) 38.3 fL 38.5-51.6 L RDW-CV (test code = 788-0) 12.3 % 12.1-15.4 PLT (test code = 777-3) See_Comment H [Automated Everyone Countsa ge] The system which generated this result transmitted reference range: 150 - 328 10*3/?L. The reference range was not used to interpret this result as normal/abnormal. MPV (test code = 76596-3) 9.2 fL 9.8-13.0 L NRBC/100 WBC (test code = 2874830965) See_Comment [Automated [employer]] The system which generated this result transmitted reference range: 0.0 - 10.0 /100 WBCs. The reference range was not used to interpret this result as normal/abnormal. NRBC x10^3 (test code = 6589235933) <0.01 See_Comment [Automated messa ge] The system which generated this result transmitted reference range: 10*3/?L. The reference range was not used to interpret this result as normal/abnormal. GRAN MAT (NEUT) % (test code = 770-8) 62.0 % IMM GRAN % (test code = 2634298435) 0.30 % LYMPH % (test code = 736-9) 29.7 % MONO % (test code = 5905-5) 6.5 % EOS % (test code = 713-8) 0.9 % BASO % (test code = 706-2) 0.6 % GRAN MAT x10^3(ANC) (test code = 0745569294) 7.25 10*3/uL 1.99-6.95 H IMM GRAN x10^3 (test code = 6150305899) 0.04 10*3/uL 0.00-0.06 LYMPH x10^3 (test code = 731-0) 3.48 10*3/uL 1.09-3.23 H MONO x10^3 (test code = 742-7) 0.76 10*3/uL 0.36-1.02 EOS x10^3 (test code = 711-2) 0.11 10*3/uL 0.06-0.53 BASO x10^3 (test code = 704-7) 0.07 10*3/uL 0.01-0.09 Lab Interpretation (test code = 62393-5) Abnormal [facility] CampusALBUMIN/CREATININE RATIO, URINE, RANDOM 2022-03-11 01:57:25* Test Item Value Reference Range Interpretation Comme nts CREATININE, URINE, RANDOM (test code = 2072) 61.2 MG/DL NOT ESTAB ALBUMIN, URINE, RANDOM (test code = 67746) <0.2 MG/DL NOT ESTAB CALC ALBUMIN/CREAT, RND (test code = 64462) <3 MG/G <30 Note: Albumin/Creatinine ratio reference interval reflects ADA and NKF guidelines. COMPREHENSIVE METABOLIC [id number] 00:29:28* Test Item Value Reference Range Interpretation Comme nts GLUCOSE (test code = 2216) 413 MG/DL 70-99 H BUN (test code = 2207) 14 MG/DL 6-20 CREATININE (test code = 2213) 0.81 MG/DL 0.80-1.40 eGFR (2020 CKD-EPI) (test code = 09048) 107 ML/MIN/1.73 >60 CALC BUN/CREAT (test code [...] = 2218) 54 U/L 5-50 H LIPID [id number] 00:29:28* Test Item Value Reference Range Interpretation [...] SPECIMENS. FOR MOREINFORMATION, SEE CLIENT ANNOUNCEMENT AT [email or web address] /CalcLDL-[email or web address] RISK RATIO LDL/HDL (test code = 2238) 2.33 RATIO <3.55 HEMOGLOBIN [id number] 03:12:57* Test Item Value Reference Range Interpretation Comme nts HEMOGLOBIN A1c (test code = 11319) 11.3 % 4.2-5.6 H [employer] GUIDELINES FOR HGB A1C: [...] CONSULTATION. UNLESS OTHERWISE INDICATED, ALL TESTING PERFORMED [facility] [address] [place] [address] CENTRIFUGAL DRIER OPERATOR: MELECIO GREEN M.D. [place] NUMBER [id number] [facility] [place]. [id number] COMPREHENSIVE METABOLIC [id number] 04:51:05* Test Item Value Reference Range Interpretation Comme nts GLUCOSE (test code = 7) 299 MG/DL 70-99 H BUN (test code = 2207) 15 MG/DL 6-20 CREATININE (test code = 2214) 0.67 MG/DL 0.80-1.40 L eGFR (2020 CKD-EPI) (test code = 24938) 114 ML/MIN/1.73 >60 CALC BUN/CREAT (test code = 223) 22 RATIO 6-28 SODIUM (test code = 223) 143 MEQ/L 133-146 POTASSIUM (test code = 2228) 4.1 MEQ/L 3.5-5.4 CHLORIDE (test code = 2215) 105 MEQ/L 95-107 CARBON DIOXIDE (test code = 2206) 26 MEQ/L 19-31 CALCIUM (test code = 2209) 9.3 MG/DL 8.5-10.5 PROTEIN, TOTAL (test code = 2228) 6.5 G/DL 6.1-8.3 ALBUMIN (test code = [...] = 2219) 76 U/L 5-50 H LIPID [id number] 04:51:05* Test Item Value Reference Range Interpretation [...] SPECIMENS. FOR MOREINFORMATION, SEE CLIENT ANNOUNCEMENT AT [email or web address] /CalcLDL-C RISK RATIO LDL/HDL (test code = 2238) 1.47 RATIO <3.55 UNLESS OTHERW ISE INDICATED, ALL TESTING PERFORMED [facility] [address] [place] [address] CENTRIFUGAL DRIER OPERATOR: MELECIO GREEN M.D. CLIA NUMBER [id number] [facility] [place]. [id number] HEMOGLOBIN [id number] 02:53:45* Test Item Value Reference Range Interpretation Comme nts HEMOGLOBIN A1c (test code = 04578) 10.6 % 4.2-5.6 H [employer] GUIDELINES FOR HGB A1C: [...] before and after session COMMUNICATION Primary Language: Latvian Able to Verbalize needs: Yes Vision:good; no [...] min Frida Childress PT [place] PT License [id number] [facility] Rehabilitation Services Department (phone) (fax) Frida Childress PT [facility] - Health History and Physical Notes Date/Time Note Provider Source 2024-02-24 15:13:16 [facility] Hospitalist Admission H&P Date of Service: 02/24/2024 CHIEF COMPLAINT: Fatigue and weakness HISTORY OF PRESENT ILLNESS Leandro Lehman is a 53 year old male with history of insulin-dependent diabetic, HTN, CAD, ME in 10/22, proximal A-fib, GERD, chronic hypoxic [...] METOPROLOL SUCCINATE ORAL Comments: Reason for Stopping: nsexx-3-slw-tty-bvq-ovkh oil (OMEGA-3 2100) 1,050-1,200 mg Cap Comments: [...] Dictated by Resident: Rose Mary Kirby I, Azar Soto MD., have reviewed this [...] Cessation: (Z71.6) Tobacco user?: Former smoker Observation [facility] was viewed during this stay SANTIAGO Reyez [...] including diabetes, hypertension, coronary disease status post ME, paroxysmal atrial fibrillation, GERD, chronic hypoxic respiratory failure on 3 L nasal cannula oxygen who presented for generalized weakness with intractable nausea vomiting secondary to suspected diabetic gastroparesis. Continue on Reglan as needed Zofran. Encourage patient to have small frequent meals. Rest of plan events outlined below. Sachin Mcallister DO 02/24/2024 8:11 PM [facility] Notes Date/Time Note Provider Source 2024-03-01 10:34:42 TRANSITIONAL CARE MANAGEMENT ASSESSMENT 03/01/2024 Leandro Lehman [id number] Leandro Lehman is a 53 year old /White male was admitted on 02/24/24 to [facility], ADC MED SURG. He was discharged on 02/27/24 with discharge disposition of HR- Routine Discharge. Admitting Physician: Sachin Mcallister Discharge Diagnosis: Weakness Intractable N/V Hypokalemia Uncontrolled DM2 Chronic hypoxic respiratory failure Linked Episodes Type: Episode: Status: Noted: Resolved: Last update: Updated by: TRANSITION OF CARE TCM Active 02/27/2024 02/29/2024 2:06 PM Florence Downs RN Comments:02/27/2024 TCM Xmv-onir-fb-face outreach documentation: Care Transition CM made f/u call to pt post-discharge x2. No response and call went to voicemail. CM left a discreet message with purpose of call and CM's call back information. Discharge Assessment Chart Assessed: 03/01/24 TCM Outreach Completed: 03/01/24 Future Appointments: Florence Downs RN [facility] 2024-02-29 14:06:15 Care Transition CM made f/u call to pt post-discharge. No response and call went to voicemail. CM left a discreet message with purpose of call and CM's call back information. Florence Downs RN, BSN Social Services Designee-Transitions of Care [phone] [facility] 2024-02-27 17:14:12 Problem: Discharge Planning Goal: Adequate for discharge 02/27/2024 171 by Maritza Bui RN Outcome: Adequate for discharge 02/27/2024 1440 by Maritza Bui RN Outcome: Progressing as expected Goal: Effective communication 02/27/2024 171 by Maritza Bui RN Outcome: Adequate for discharge 02/27/2024 1440 by Maritza Bui RN Outcome: Progressing as expected Problem: Nausea/Vomiting Goal: Absence of nausea/vomiting 02/27/2024 1714 by Maritza Bui RN Outcome: Adequate for discharge 02/27/2024 1440 by Maritza Bui RN Outcome: Progressing as expected Problem: Pain Goal: Control of pain at or below patient's documented comfort goal 02/27/2024 171 by Maritza Bui RN Outcome: Adequate for discharge 02/27/2024 1440 by Maritza Bui RN Outcome: Progressing as expected Goal: Reduction in pain sensation 02/27/2024 171 by Maritza Bui RN Outcome: Adequate for discharge 02/27/2024 1440 by Maritza Bui RN Outcome: Progressing as expected Problem: Falls, Risk of Goal: Absence of falls 02/27/2024 171 by Maritza Bui RN Outcome: Adequate for discharge 02/27/2024 1440 by Maritza Bui RN Outcome: Progressing as expected Problem: Skin integrity Impaired (Risk or Actual) Goal: Prevention of new skin breakdown 02/27/2024 171 by Maritza Bui RN Outcome: Adequate for discharge 02/27/2024 1440 by Maritza Bui RN Outcome: Progressing as expected Problem: Respiratory Function - Impaired Goal: Able to cough effectively 02/27/2024 171 by Maritza Bui RN Outcome: Adequate for discharge 02/27/2024 1440 by Maritza Bui RN Outcome: Progressing as expected Goal: Adequate oxygenation 02/27/2024 171 by Maritza Bui RN Outcome: Adequate for discharge 02/27/2024 1440 by Maritza Bui RN Outcome: Progressing as expected Goal: Patent airway 02/27/2024 171 by Maritza Bui RN Outcome: Adequate for discharge 02/27/2024 1440 by Maritza Bui RN Outcome: Progressing as expected T Maritza Bui RN [facility] 2024-02-27 14:40:10 Problem: Discharge Planning Goal: Adequate [...] Goal: Patent airway Outcome: Progressing as expected [facility] 2024-02-26 16:38:21 Problem: Discharge Planning Goal: Adequate [...] Goal: Patent airway Outcome: Progressing as expected [facility] 2024-02-26 01:49:55 Problem: Discharge Planning Goal: Adequate [...] Goal: Patent airway Outcome: Progressing as expected Shashi Saez RN [facility] 2024-02-25 19:27:15 Problem: Discharge Planning Goal: Adequate [...] Progressing as expected Maria Esther Camilo RN [facility] 2024-02-25 05:44:32 Problem: Discharge Planning Goal: Adequate for discharge Outcome: Progressing as expected Problem: Nausea/Vomiting Goal: Absence of nausea/vomiting Outcome: Progressing as expected Problem: Pain Goal: Control of pain at or below patient's documented comfort goal Outcome: Progressing as expected Problem: Falls, Risk of Goal: Absence of falls Outcome: Progressing as expected Thursday Darnell MICHEL [facility] 2024-02-24 16:20:12 Problem: Discharge Planning Goal: Adequate [...] Absence of falls Outcome: Progressing as expected T [facility] 2024-02-24 12:22:47 Patient admitted to [place] [address] for diagnosis of fatigue, n/v, hypokalemia, lactic acidosis, DM type 2. Patient agrees to admission, discussed plan of care with patient and family. Patient is awake, alert, oriented, resp reg unlabored, color appropriate for race, PIV intact. No adverse reaction to medications administered while in ED. Belongings with patient to unit. T Risa Conde RN [facility] 2024-02-24 12:19:57 Nurse Report Report [facility] hospital MARILU Lorenzo. Chief complaint, assessment findings, infusion verify and orders reviewed. Plan of care discussed. Patient/family members verbalized understanding. Risa Conde RN T [facility] 2024-02-24 07:10:01 Report to Cord T Rabia Owusu RN [facility] 2024-02-24 04:02:17 Pt encouraged to give urine sample, states he cannot void at this time. T [facility] 2024-02-24 00:55:26 Pt arrived with c/o fatigue, weakness, and dizziness. Pt was seen on Thursday at [facility] for this on Thursday. Pt was swapped for Covid and Flu and had a negative work up. He was given Pepcid and Zofran for symptoms. report he has been in bed for more than a 1 week with these symptoms and has has no relief. Denies: abdominal pain Eden Kapoor RN [facility] - [facility] 2024-02-24 00:47:00 Associated Order(s): EKG-12 Lead ROUTINE ONCE Pre-Procedure Diagnose(s): Fatigue, unspecified type Post-Procedure Diagnose(s): Fatigue, unspecified type [facility] Emergency Department Note Patient Name: Leandro Lehman Date of : 1970 53 year old male Treatment Room: [place] [address] Primary Care Physician: Natacha Somers Patient Escorted by: Family [5] Mode of Arrival: Personal means [1] EMS Treatment Prior to ED Arrival: [employer] treatment: None Travel and Exposure Screening: Symptoms [...] to eat/drink anything. Pt was seen at [facility] on 02/16/2024 and had work up done [...] and is on Oxygen 4 liter/min by VT at home. He also has hx of [...] provided by: Patient History limited by: none. pharmaceutical physician used: No Past Medical History/Immunizations: Past Medical [...] Lab Results: Lab Results COMP. METABOLIC PANEL (80699) - Abnormal Result Value Ref Range NA [...] mellitus with other specified complication, unspecified whether care home insulin use Intractable nausea and vomiting Procedures: [...] mellitus with other specified complication, unspecified whether long term care phlebotomist insulin use: chronic illness or injury with [...] mg by mouth 2 (two) times daily. XELGN-4-TOY-QUY-TAZ-DSRW OIL (OMEGA-3 2100) 1,050-1,200 MG CAP Take [...] encounter and patient evaluation by SANTIAGO Cruz. [facility] 2023-12-15 15:16:00 [phone] [facility] PATIENT NAME: LEANDRO LEHMAN ADMIT DATE: 11/10/23 ACCOUNT NO: [id number] ROOM NO: [facility] AGE: 53 REPORT TYPE: 360 - QUERY RESPONSE DOCUMENT SEX: M DATE OF : [birth year] ADMITTING PHYSICIAN:Jeremias Ibarra MD ATTENDING PHYSICIAN:Jeremias Ibarra MD Provider Query QUERY TEXT: Condition General 360MD Query related questions should be directed to: [phone] Based on the information in the medical [...] 3.375 mg every 8 hours. DC Summary [id number] Possible aspriation pneumonitis vs pulmonary edema. Pulmonology pns [id number] Options provided: -- Respond - Create new note now -- Dismiss - Not applicable / Not valid -- Dismiss - Clinically unable to determine / Unknown -- Assign to another provider QUERY RESPONSE: Aspiration pneumonia Query created by: Sydnee Rangel on 12/12/2023 9:46 AM at 1516 PATIENT NAME: LEANDRO LEHMAN [facility] 2023-12-12 09:03:00 [id number] [facility] PATIENT NAME: LEANDRO LEHMAN ADMIT DATE: 11/10/23 ACCOUNT NO: [id number] ROOM NO: V2085 AGE: 53 REPORT TYPE: 360 - QUERY RESPONSE DOCUMENT SEX: M DATE OF : [birth year] ADMITTING PHYSICIAN:Jeremias Ibarra MD ATTENDING PHYSICIAN:Jeremias Ibarra MD Provider Query QUERY TEXT: POA Indicator 360MD Query related questions should be directed to: [phone] Please indicate if the diagnosis of Sepsis was present on admission? The patient's Clinical Indicators include: The patient has severe sepsis with septic shock. pneumonia. Coding query response [id number] Options provided: -- Yes -- No -- W -- Other - I will add my own diagnosis -- Dismiss - Not applicable / Not valid -- Dismiss - Clinically unable to determine / Unknown -- Assign to another provider QUERY RESPONSE: Sepsis ruled out Query created by: Sydnee Rangel on 2023 9:52 AM at 0903 PATIENT NAME: LEANDRO LEHMAN [facility] 2023-11-19 15:30:00 [phone] [facility] PATIENT NAME: LEANDRO LEHMAN ADMIT DATE: 11/10/23 ACCOUNT NO: [id number] ROOM NO: V.2085 AGE: 52 REPORT TYPE: 360 - QUERY RESPONSE DOCUMENT SEX: M DATE OF : [birth year] ADMITTING PHYSICIAN:Jeremias Ibarra MD ATTENDING PHYSICIAN:Jeremias Ibarra MD Provider Query QUERY TEXT: Clarification Infectious Status 360MD Query related questions should be directed to:[facility] Coding Query Helpline Based on your clinical judgment, please clarify the condition(s) that represent(s) the clinical indicators listed below. The following definitions are provided based on industry literature and in collaboration with [facility] Clinical Services Group for your reference only: [...] AM at 1530 PATIENT NAME: LEANDRO LEHMAN [facility] 2023-11-18 21:41:00 [facility] ([facility]) Nephrology Progress Note REPORT#:[id number] REPORT STATUS: Signed REPORT INITIALIZATION DATE:11/18/23 TIME: 2140 PATIENT: LEANDRO LEHMAN UNIT #: [id number] ROOM/BED: 2086-A : 72 AGE: 52 SEX: [...] He endorsed having used Advil or Aleve ljuf-bjs-ofcveok for back pain but not more than [...] He endorsed having used Advil or Aleve ndxj-qdp-wctgsri for back pain but not more than [...] renal dosing of medication. at 2143 RPT #:[id number] END OF REPORT [facility] 2023-11-17 22:42:00 [facility] ([facility] Nephrology Progress Note REPORT#:[id number] REPORT STATUS: Signed REPORT INITIALIZATION DATE:11/17/23 TIME: 2241 PATIENT: LEANDRO LEHMAN UNIT #: [id number] ROOM/BED: [address] : 71 AGE: 52 SEX: M [...] He endorsed having used Advil or Aleve mfvq-usl-xfiwboi for back pain but not more than [...] He endorsed having used Advil or Aleve xzii-icv-lxaamlh for back pain but not more than [...] renal dosing of medication. at 2243 RPT #:[id number] END OF REPORT [facility] 2023-11-17 18:00:00 [facility] ([facility]) Pulmonology Progress Note REPORT#:[id number] REPORT STATUS: Signed REPORT INITIALIZATION DATE:11/17/23 TIME: 1800 PATIENT: LEANDRO LEHMAN UNIT #: [id number] ROOM/BED: [address] : 71 AGE: 53 SEX: M ATTEND: Jeremias Ibarra MD ADM AUTHOR: Jose Miguel Roca MD REPT SERVICE DT/TIME: 11/17/23 1800 * ALL edits or amendments must be made on the electronic/computer document * Subjective Chief complaint: Shortness of breath HPI: 52-year-old male was transferred from outside facility to [facility] with shortness of breath patient is obese, never been diagnosed with obstructive sleep apnea. Patient was admitted from October 19 8 November 05, with hypercapnic respiratory failure-also had left heart cath which was normal CT chest reviewed it is showing possibility of aspiration versus resolving pneumonia may be mild pulmonary edema External record: Patient was recently admitted at [facility] from October 27 through November 05 with [...] Abdomen: soft, non-tender Extremities: no pedal edema Neuro/NURSING DEPARTMENT CHAIRPERSON: alert Diagnosis, Assessment Plan Free Text A [...] likely has COVID-related scarring at 1727 RPT #:[id number] END OF REPORT [facility] 2023-11-17 16:00:00 [facility] ([facility]) Hospitalist Discharge Summary REPORT#:[id number] REPORT STATUS: Signed REPORT INITIALIZATION DATE:11/17/23 TIME: 1600 PATIENT: LEANDRO LEHMAN UNIT #: [id number] ROOM/BED: [address] : 71 AGE: 52 SEX: M [...] failure with hypoxemia secondary to pneumonia improved. kettle loader recommends weaning oxygen. patient weaned to 4L [...] Temp 36.7 11/17 1613 Pulse 91 11/17 161 Resp 20 11/17 161 FiO2 36 11/17 0842 O2 Flow Rate [...] motion, no CVA tenderness, no muscle spasm Neuro/NURSING DEPARTMENT CHAIRPERSON: alert, oriented X 3, CNII-XII intact, normal speech, no motor deficits, no sensory deficits Skin: dry, intact, normal color, normal temperature, no rash Lymphatics: axilla normal, inguinal normal, neck normal, no lymphadenopathy Psychiatry: normal affect, normal judgment/insight, normal mood, not homicidal, not suicidal Discharge Instructions PCP Discharge to: Home/Self Care Additional Discharge Routines: [employer] Follow-Up, Equipment/Supplies Diet: Resume Home Diet/Feeds Activity: [...] best of my knowledge. at 0912 RPT #:[id number] END OF REPORT [facility] 2023-11-16 19:23:00 [facility] ([facility] Pulmonology Progress Note REPORT#:[id number] REPORT STATUS: Signed REPORT INITIALIZATION DATE:11/16/23 TIME: 1922 PATIENT: LEANDRO LEHMAN UNIT #: [id number] ROOM/BED: 6 : 72 AGE: 52 SEX: M ATTEND: Jeremias Ibarra MD ADM AUTHOR: Jose Miguel Roca MD REPT SERVICE DT/TIME: 11/16/231922 * ALL edits or amendments must be made on the electronic/computer document * Subjective Chief complaint: Shortness of breath HPI: 52-year-old male was transferred from outside facility to [facility] with shortness of breath patient is obese, never been diagnosed with obstructive sleep apnea. Patient was admitted from October 19 8 November 05, with hypercapnic respiratory failure-also had left heart cath which was normal CT chest reviewed it is showing possibility of aspiration versus resolving pneumonia may be mild pulmonary edema External record: Patient was recently admitted at [facility] from October 27 through November 05 with [...] Navarro RDN, Assessment completed: 11/11/23 Physical Exam General appearance: alert, awake Head/eyes: atraumatic, normocephalic Cardiovascular: regular rate rhythm Respiratory/chest: aerating well, clear to auscultation Abdomen: soft, non-tender Extremities: no pedal edema Neuro/NURSING DEPARTMENT CHAIRPERSON: alert Diagnosis, Assessment Plan Free Text A [...] likely has COVID-related scarring at 1926 RPT #:[id number] END OF REPORT [facility] 2023-11-16 14:01:00 [facility] ([facility]) Nephrology Progress Note REPORT#:[id number] REPORT STATUS: Signed REPORT INITIALIZATION DATE:11/16/23 TIME: 1400 PATIENT: LEANDRO LEHMAN UNIT #: [id number] ROOM/BED: : 71 AGE: 52 SEX: M [...] He endorsed having used Advil or Aleve xske-yxv-spkhsrj for back pain but not more than [...] He endorsed having used Advil or Aleve cqku-iug-efiwsvt for back pain but not more than [...] renal dosing of medication. at 1314 RPT #:[id number] END OF REPORT [facility] 2023-11-16 13:54:00 [facility] ([facility]) Hospitalist Progress Note REPORT#:[id number] REPORT STATUS: Signed REPORT INITIALIZATION DATE:11/16/23 TIME: 1353 PATIENT: LEANDRO LEHMAN UNIT #: [id number] ROOM/BED: [address] : 71 AGE: 52 SEX: M ATTEND: Jeremias Ibarra MD ADM AUTHOR: Jeremias Ibarra MD REPT SERVICE DT/TIME: 11/16/23 1351 * ALL edits or amendments must be [...] motion, no CVA tenderness, no muscle spasm Neuro/NURSING DEPARTMENT CHAIRPERSON: alert, oriented X 3, CNII-XII intact, normal [...] failure with hypoxemia secondary to pneumonia improved. kettle loader recommends weaning oxygen down to 10L oxygen [...] best of my knowledge. at 1245 RPT #:[id number] END OF REPORT [facility] 2023-11-16 12:26:00 [facility] ([facility]) Gastroenterology Progress Note REPORT#:[id number] REPORT STATUS: Signed REPORT INITIALIZATION DATE:11/16/23 TIME: 1225 PATIENT: LEANDRO LEHMAN UNIT #: [id number] ROOM/BED: [address] : 71 AGE: 52 SEX: M [...] cannula 11/15 2108 O2 Flow Rate 7 12/17 2108 24 hour I O ending at [...] as needed Dietitian name: Yasemin Navarro RDN, LD Assessment completed: 11/11/23 Physical Exam General appearance: alert, awake, oriented HEENT: atraumatic, normocephalic Neck: no JVD Cardiovascular: normal S1/S2, regular rate rhythm Respiratory: equal breath sounds, symmetric expansion Abdomen: non-tender, normal bowel sounds, soft, no distention Extremities: decreased range of motion Musculoskeletal: decreased ROM Neuro/NURSING DEPARTMENT CHAIRPERSON: alert, oriented X 3, no sensory deficits [...] needed -Will monitor PRN at 1228 at 1644 RPT #:[id number] END OF REPORT [facility] 2023-11-15 18:47:00 [facility] ([facility]) Pulmonology Progress Note REPORT#:[id number] REPORT STATUS: Signed REPORT INITIALIZATION DATE:11/15/23 TIME: 1846 PATIENT: LEANDRO LEHMAN UNIT #: [id number] ROOM/BED: [facility] : 71 AGE: 52 SEX: M ATTEND: Jeremias Ibarra MD ADM AUTHOR: Jose Miguel Roca MD REPT SERVICE DT/TIME: 11/15/231846 * ALL edits or amendments must be made on the electronic/computer document * Subjective Chief complaint: Shortness of breath HPI: 52-year-old male was transferred from outside facility to [facility] with shortness of breath patient is obese, never been diagnosed with obstructive sleep apnea. Patient was admitted from October 19 8 November 05, with hypercapnic respiratory failure-also had left heart cath which was normal CT chest reviewed it is showing possibility of aspiration versus resolving pneumonia may be mild pulmonary edema External record: Patient was recently admitted at [facility] from October 27 through November 05 with [...] Rate 10 11/15 1812 Pulse 82 11/15 181 Resp 18 11/15 1812 O2 Delivery High flow nasal cannula 11/15 1812 B/P 122/70 11/15 1659 B/P Mean 87.2 12/17 1659 Temp 98.4 11/15 1659 24 hour [...] as needed Dietitian name: Yasemin Navarro RDN, LD Assessment completed: 11/11/23 Physical Exam General appearance: alert, awake Head/eyes: atraumatic, normocephalic Cardiovascular: regular rate rhythm Respiratory/chest: aerating well, clear to auscultation Abdomen: soft, non-tender Extremities: no pedal edema Neuro/NURSING DEPARTMENT CHAIRPERSON: alert Diagnosis, Assessment Plan Free Text A [...] flow overall remained stable at 1848 RPT #:[id number] END OF REPORT [facility] 2023-11-15 15:29:00 [facility] ([facility]) Hospitalist Progress Note REPORT#:[id number] REPORT STATUS: Signed REPORT INITIALIZATION DATE:11/15/23 TIME: 152 PATIENT: LEANDRO LEHMAN UNIT #: [id number] ROOM/BED: [address] : 71 AGE: 52 SEX: M [...] motion, no CVA tenderness, no muscle spasm Neuro/NURSING DEPARTMENT CHAIRPERSON: alert, oriented X 3, CNII-XII intact, normal [...] failure with hypoxemia secondary to pneumonia improved. kettle loader recommends weaning oxygen down to 10L oxygen [...] best of my knowledge. at 2114 RPT #:[id number] END OF REPORT [facility] 2023-11-15 10:40:00 [facility]) Nephrology Consultation Note REPORT#:[id number] REPORT STATUS: Signed REPORT INITIALIZATION DATE:11/15/23 TIME: 1040 PATIENT: LEANDRO LEHMAN UNIT #: [id number] ROOM/BED: [address] : 71 AGE: 52 SEX: M [...] He endorsed having used Advil or Aleve ajzk-twn-poyqxlo for back pain but not more than [...] on exertion), hemoptysis. Cardiovascular: Denies: chest pain, LAMBERT (dyspnea on exertion). GI: Denies: abdominal pain, [...] He endorsed having used Advil or Aleve jkoz-pus-iibxoos for back pain but not more than [...] renal dosing of medication. at 1400 RPT #:[id number] END OF REPORT [facility] 2023-11-14 19:34:00 [facility] ([facility]) Pulmonology Progress Note REPORT#:[id number] REPORT STATUS: Signed REPORT INITIALIZATION DATE:11/14/23 TIME: 1933 PATIENT: LEANDRO LEHMAN UNIT #: [id number] ROOM/BED: 6-A : 71 AGE: 52 SEX: M ATTEND: Jeremias Ibarra MD ADM AUTHOR: Jose Miguel Roca MD REPT SERVICE DT/TIME: 11/14/231933 * ALL edits or amendments must be made on the electronic/computer document * Subjective Chief complaint: Shortness of breath HPI: 52-year-old male was transferred from outside facility to [facility] with shortness of breath patient is obese, never been diagnosed with obstructive sleep apnea. Patient was admitted from October 19 8 November 05, with hypercapnic respiratory failure-also had left heart cath which was normal CT chest reviewed it is showing possibility of aspiration versus resolving pneumonia may be mild pulmonary edema External record: Patient was recently admitted at [facility] from October 27 through November 05 with hypercapnic respiratory failure, unstable angina and NSTEMI. Per the notes the patient had a left heart cath which showed normal coronary arteries and patient was discharged in a stable condition. Comments: Overall breathing is stable Objective Physical Exam Head/eyes: atraumatic, normocephalic Cardiovascular: regular rate rhythm Respiratory/chest: decreased breath sounds Abdomen: soft, non-tender Extremities: no pedal edema Neuro/NURSING DEPARTMENT CHAIRPERSON: alert Diagnosis, Assessment Plan Free Text A [...] study as an outpatient at 0016 RPT #:[id number] END OF REPORT [facility] 2023-11-14 18:46:00 [facility] ([facility]) Hospitalist Progress Note REPORT#:[id number] REPORT STATUS: Signed REPORT INITIALIZATION DATE:11/14/23 TIME: 1845 PATIENT: LEANDRO LEHMAN UNIT #: [id number] ROOM/BED: [facility] : 71 AGE: 52 SEX: M ATTEND: [...] motion, no CVA tenderness, no muscle spasm Neuro/NURSING DEPARTMENT CHAIRPERSON: alert, oriented X 3, CNII-XII intact, normal [...] best of my knowledge. at 1857 RPT #:[id number] END OF REPORT [facility] 2023-11-13 17:55:00 [facility] ([facility]) Pulmonology Progress Note REPORT#:[id number] REPORT STATUS: Signed REPORT INITIALIZATION DATE:11/13/23 TIME: 1754 PATIENT: LEANDRO LEHMAN UNIT #: [id number] ROOM/BED: 6- : 71 AGE: 52 SEX: M ATTEND: Jeremias Ibarra MD ADM AUTHOR: Jose Miguel Roca MD REPT SERVICE DT/TIME: 11/13/231754 * ALL edits or amendments must be made on the electronic/computer document * Subjective Chief complaint: Shortness of breath HPI: 52-year-old male was transferred from outside facility to [facility] with shortness of breath patient is obese, never been diagnosed with obstructive sleep apnea. Patient was admitted from October 19 8 November 05, with hypercapnic respiratory failure-also had left heart cath which was normal CT chest reviewed it is showing possibility of aspiration versus resolving pneumonia may be mild pulmonary edema External record: Patient was recently admitted at [facility] from October 27 through November 05 with [...] off, reconsult as needed Dietitian name: Yasemin Naavrro RDN, LD Assessment completed: 11/11/23 Physical Exam Head/eyes: atraumatic, normocephalic Cardiovascular: regular rate rhythm Respiratory/chest: aerating well, clear to auscultation Abdomen: soft, non-tender Extremities: no pedal edema Neuro/NURSING DEPARTMENT CHAIRPERSON: alert Diagnosis, Assessment Plan Free Text A [...] high flow nasal cannula at 0015 RPT #:[id number] END OF REPORT [facility] 2023-11-13 12:54:00 [facility] ([facility]) Hospitalist Progress Note REPORT#:[id number] REPORT STATUS: Signed REPORT INITIALIZATION DATE:11/13/23 TIME: 1254 PATIENT: LEANDRO LEHMAN UNIT #: [id number] ROOM/BED: [facility]-A : 71 AGE: 52 SEX: M ATTEND: Lindsey Coyle MD ADM AUTHOR: Lindsey Coyle MD REPT SERVICE DT/TIME: 11/13/23 1259 * ALL edits or amendments must be [...] motion, no CVA tenderness, no muscle spasm Neuro/NURSING DEPARTMENT CHAIRPERSON: alert, oriented X 3, CNII-XII intact, normal [...] best of my knowledge. at 1255 RPT #:[id number] END OF REPORT [facility] 2023-11-13 09:23:00 [facility] ([facility]) GE Consultation Note REPORT#:[id number] REPORT STATUS: Signed REPORT INITIALIZATION DATE:11/13/23 TIME: 922 PATIENT: LEANDRO LEHMAN UNIT #: [id number] ROOM/BED: [address] : 71 AGE: 52 SEX: M [...] 11/12/23 (PROTONIX) 0852 1313 Strength: 40 MG TAB. [SYNJAUMER] 12.5 09/24/22 Strength: 0853 INSULIN REGULAR 35 [...] decreased range of motion Musculoskeletal: decreased ROM Neuro/NURSING DEPARTMENT CHAIRPERSON: alert, oriented X 3, no sensory deficits [...] % (Auto) (25.0 - 55.0 %) 36.3 Garrard % (Auto) (0.0 - 10.0 %) 13.6 H Eos % (Auto) (0.0 - 5.0 %) 4.5 Baso % (Auto) (0.0 - 1.0 %) 1.5 H Neut # (Auto) (1.8 - 7.7 K/mm3) 2.42 Lymph # (Auto) (1.0 - 5.0 K/mm3) 2.00 Garrard # (Auto) (0 - 0.8 K/mm3) 0.75 [...] as needed at 1403 at 1536 RPT #:[id number] END OF REPORT [facility] 2023-11-12 17:08:00 [facility] ([facility]) Pulmonary Consultation Note REPORT#:[id number] REPORT STATUS: Signed REPORT INITIALIZATION DATE:11/12/23 TIME: 1707 PATIENT: LEANDRO LEHMAN UNIT #: [id number] ROOM/BED: [address] : 71 AGE: 52 SEX: M ATTEND: Lindsey Coyle MD ADM AUTHOR: Jose Miguel Roca MD REPT SERVICE DT/TIME: 11/12/231707 * ALL edits or amendments must be made on the electronic/computer document * History of Present Illness HPI Requesting clinician: Dr Rey Reason for consult: Hypoxia Chief complaint: Shortness of breath HPI: 52-year-old male was transferred from outside facility to [facility] with shortness of breath patient is obese, never been diagnosed with obstructive sleep apnea. Patient was admitted from October 19 8 November 05, with hypercapnic respiratory failure-also had left heart cath which was normal CT chest reviewed it is showing possibility of aspiration versus resolving pneumonia may be mild pulmonary edema External record: Patient was recently admitted at [facility] from October 27 through November 05 with [...] Abdomen: soft, non-tender Extremities: no pedal edema Neuro/NURSING DEPARTMENT CHAIRPERSON: alert Diagnosis, Assessment Plan Free Text DxA [...] you for the consult at 0018 RPT #:[id number] END OF REPORT [facility] 2023-11-12 12:26:00 [facility] ([facility]) Hospitalist Progress Note REPORT#:[id number] REPORT STATUS: Signed REPORT INITIALIZATION DATE:11/12/23 TIME: 122 PATIENT: LEANDRO LEHMAN UNIT #: [id number] ROOM/BED: : 71 AGE: 52 SEX: M [...] 11/12 0500 104 31 116/60 83 100 14 0445 104 32 114/59 81 99 11/12 0430 106 31 116/56 98 11/12 0415 106 9 115/59 81 98 11/12 0400 111 26 114/62 82 99 11/12 0400 98.6 99 BiPAP 11/12 0345 104 35 121/69 89 99 11/12 0330 104 30 117/64 85 99 11/12 0315 106 31 108/59 81 99 14 0300 105 32 121/58 81 96 14 0245 105 32 115/57 81 97 14 0230 106 29 115/55 77 96 14 0215 106 28 114/59 82 97 14 0200 103 28 120/61 84 97 14 0145 108 28 101/56 73 99 14 0130 106 29 109/55 76 96 14 0115 107 31 115/58 80 96 /14 0100 108 32 113/59 81 95 14 0045 108 31 117/55 82 96 14 0031 101 100 50 14 0030 101 21 135/66 93 100 14 0015 24 135/67 95 100 14 0000 100 24 126/62 86 100 11/12 0000 98.5 100 BiPAP 11/11 2345 107 30 128/67 89 99 11/11 2330 117 40 134/72 97 100 / 2315 114 38 129/64 89 100 / 2300 109 12 135/67 94 100 11/11 2245 110 36 137/72 94 100 11/11 2230 108 35 140/69 99 100 11/11 2215 112 38 138/68 95 100 12/13 2212 112 28 146/74 98 100 11/11 [...] motion, no CVA tenderness, no muscle spasm Neuro/NURSING DEPARTMENT CHAIRPERSON: alert, oriented X 3, CNII-XII intact, normal [...] best of my knowledge. at 1242 RPT #:[id number] END OF REPORT [facility] 2023-11-12 04:41:00 [id number] [facility] PATIENT NAME: LEANDRO LEHMAN ADMIT DATE: 11/10/23 ACCOUNT NO: [id number] ROOM NO: [facility] AGE: 52 REPORT TYPE: eNVL VENOUS ULTRASOUND SEX: M DATE OF : 72 ADMITTING PHYSICIAN:Lindsey Coyle MD ATTENDING PHYSICIAN:Lindsey Coyle MD *[facility]* [address] [place] [id number] Lower Extremity Venous Duplex Evaluation Patient: Leandro Lehman Study Date: 11/11/2023 BP: URN: [id number] Location: : 1970 Age: 52 Gender: M Height: 67 in / 170.2 cm Weight: 108 lb / 49 kg BMI/BSA: 16.9 kg/m 2 / 1.51 m 2 *Ordering Physician: * Meryl Rey *Interpreting Physician: * Valerio Loza *Public Area Supervisor: * Mirtha Bazzi Indications: RULE OUT DVT. [...] 04:41 at 0441 PATIENT NAME: LEANDRO LEHMAN [facility] 2023-11-11 14:26:00 [facility] ([facility] Hospitalist Progress Note REPORT#:[id number] REPORT STATUS: Signed REPORT INITIALIZATION DATE:11/11/23 TIME: 1425 PATIENT: LEANDRO LEHMAN UNIT #: [id number] ROOM/BED: [address] : [birth year] AGE: 52 SEX: M [...] 11/11 1341 102 24 98 25 65 / 0900 107 26 143/63 91 88 / 0845 108 35 115/65 85 100 / 0830 113 33 113/61 81 98 / 0817 111 25 100 25 65 / 0817 100 High flow 25 65 nasal cannula 11/11 0815 111 38 114/54 78 95 11/11 0800 High flow nasal cannula 11/11 0800 107 30 134/60 87 92 / 0745 111 32 127/58 83 97 / 0730 116 / 0730 115 48 130/63 90 91 / 0715 120 19 130/60 86 98 / 0700 112 / 0700 111 28 124/60 85 90 / 0515 122 35 111/55 76 97 / 0500 111 30 118/57 80 98 / 0445 109 29 133/66 92 99 / 0430 105 30 131/66 92 100 / 0415 109 29 118/58 81 99 / 0400 110 29 120/59 82 98 / 0400 99.5 97 Non 15 rebreather mask 11/11 0345 112 30 121/58 83 98 / 0330 113 31 117/59 80 97 11/11 0315 114 29 119/58 82 98 / 0300 113 28 112/58 81 99 / 0245 115 30 107/58 81 99 / 0240 113 34 98 30 80 / 0240 98 High flow 30 80 nasal cannula 11/11 0230 114 29 136/63 90 98 / 0215 108 24 134/63 90 100 / 0200 109 28 124/61 86 100 / 0145 110 30 124/61 85 99 / 0143 110 99 50 / 0130 112 37 122/63 85 100 / 0115 116 22 118/56 81 100 / 0100 117 33 110/57 79 83 / 0045 109 29 119/56 79 87 / 0030 110 16 111/52 75 88 11/11 [...] motion, no CVA tenderness, no muscle spasm Neuro/NURSING DEPARTMENT CHAIRPERSON: alert, oriented X 3, CNII-XII intact, normal [...] best of my knowledge. at 1427 RPT #:[id number] END OF REPORT [facility] 2023-11-11 13:10:00 [facility] ([facility]) Critical Care Progress Note REPORT#:[id number] REPORT STATUS: Signed REPORT INITIALIZATION DATE:11/11/23 TIME: 1310 PATIENT: LEANDRO LEHMAN UNIT #: [id number] ROOM/BED: [address] : 71 AGE: 52 SEX: M ATTEND: Lindsey Coyle MD ADM AUTHOR: Meryl Rey MD REPT SERVICE DT/TIME: 11/11/23 1310 * ALL edits or amendments must be made on the electronic/computer document * Subjective Chief complaint: shortness of breath HPI: This is a 52-year-old morbidly obese male who was transferred from an outside facility. Patient was recently admitted at [facility] from October 27 through November 05 with [...] Result Date Time Pulse Ox 88 11/11 0900 B/P 143/63 11/11 0900 B/P Mean 91 11/11 0900 Pulse 107 11/11 0900 Resp 26 11/11 0900 FiO2 65 11/11 817 O2 Flow Rate 25 11/11 08 O2 Delivery High flow nasal cannula 11/11 [...] all, no clubbing, no cyanosis, no edema Neuro/NURSING DEPARTMENT CHAIRPERSON: alert, oriented X 3 Results Findings/data: Laboratory [...] % (Auto) (25.0 - 55.0 %) 26.0 Garrard % (Auto) (0.0 - 10.0 %) 9.8 Eos % (Auto) (0.0 - 5.0 %) 2.3 Baso % (Auto) (0.0 - 1.0 %) 1.2 H Neut # (Auto) (1.8 - 7.7 K/mm3) 3.08 Lymph # (Auto) (1.0 - 5.0 K/mm3) 1.33 Garrard # (Auto) (0 - 0.8 K/mm3) 0.50 [...] outside facility. Patient was recently admitted at [facility] from October 27 through November 05 with [...] - Code status: Full code - Disposition: [facility] Critical care time: 40 minutes, excluding procedures, [...] best of my knowledge. at 1345 RPT #:[id number] END OF REPORT [facility] 2023-11-11 09:01:00 [id number] [facility] PATIENT NAME: LEANDRO LEHMAN ADMIT DATE: 11/10/23 ACCOUNT NO: [id number] ROOM NO: [facility] AGE: 52 REPORT TYPE: eECHOCARDIOGRAM REPORT SEX: M DATE OF : [birth year] ADMITTING PHYSICIAN:Jeremias Ibarra MD ATTENDING PHYSICIAN:Jeremias Ibarra MD *[facility]* [address] [place], [place] [address] Transthoracic Echocardiogram Patient: Leandro Lehman Study Date: 11/10/2023 BP: URN: [id number] Location: : 1970 Age: 52 Gender: M Height: 67 in / 170.2 cm Weight: 253.5 lb / 115 kg BMI/BSA: 39.7 kg/m 2 / 2.39 m 2 *Ordering Physician: * Meryl Rey *Interpreting Physician: * Judy Grey MD *Public Area Supervisor: * Donovan Rudd Indications: Hypotensive. Study data: Transthoracic echocardiogram. Complete [...] sep, MM 2.08 cm --------- PATIENT NAME: LEHMANLEANDRO Peak v, S 1.9 m/sec --------- Mean [...] 09:01 at 0901 PATIENT NAME: LEANDRO LEHMAN [facility] 2023-11-11 08:15:00 [facility] Critical Care Progress Note REPORT#:[id number] REPORT STATUS: Signed REPORT INITIALIZATION DATE:11/11/23 TIME: 814 PATIENT: LEANDRO LEHMAN UNIT #: [id number] ROOM/BED: [address] : 71 AGE: 52 SEX: M ATTEND: Lindsey Coyle MD ADM AUTHOR: Meryl Rey MD REPT SERVICE DT/TIME: 11/11/2315 * ALL edits or amendments must be made on the electronic/computer document * Subjective Chief complaint: shortness of breath HPI: This is a 52-year-old morbidly obese male who was transferred from an outside facility. Patient was recently admitted at [facility] from October 27 through November 05 with [...] 11/11 400 O2 Flow Rate 15 11/11 400 Temp 99.5 11/11 400 FiO2 80 11/11 [...] all, no clubbing, no cyanosis, no edema Neuro/NURSING DEPARTMENT CHAIRPERSON: alert, oriented X 3 Results Findings/data: Laboratory [...] (Auto) (25.0 - 55.0 %) 26.0 27.0 Garrard % (Auto) (0.0 - 10.0 %) 9.8 9.0 Eos % (Auto) (0.0 - 5.0 %) 2.3 2.0 Baso % (Auto) (0.0 - 1.0 %) 1.2 H 0.6 Neut # (Auto) (1.8 - 7.7 K/mm3) 3.08 4.28 Lymph # (Auto) (1.0 - 5.0 K/mm3) 1.33 1.90 Garrard # (Auto) (0 - 0.8 K/mm3) 0.50 [...] pH (5.0 - 8.0) 5.0 Ur Specific [place] (1.001 - 1.035) 1.007 Urine Protein (NEGATIVE [...] 1736 BLOOD: Blood Culture - RECD 11/10 173 BLOOD: Blood Culture - RECD 11/10 1457 [...] outside facility. Patient was recently admitted at [facility] from October 27 through November 05 with [...] best of my knowledge. at 1606 RPT #:[id number] END OF REPORT [facility] 2023-11-10 13:22:00 [facility] ([facility]) Hospitalist History Physical REPORT#:[id number] REPORT STATUS: Signed REPORT INITIALIZATION DATE:11/10/23 TIME: 1321 PATIENT: LEANDRO LEHMAN UNIT #: [id number] ROOM/BED: [address] : 71 AGE: 52 SEX: M [...] was transferred from an outside facility to [facility]. Patient states he had a fall at home today and so he was taken to the emergency room where he complained of shortness of breath. He denies any fever or chills. He reports cough, nausea, and vomiting. External record: Patient was recently admitted at [facility] from October 27 through November 05 with [...] % (Auto) (25.0 - 55.0 %) 27.0 Garrard % (Auto) (0.0 - 10.0 %) 9.0 Eos % (Auto) (0.0 - 5.0 %) 2.0 Baso % (Auto) (0.0 - 1.0 %) 0.6 Neut # (Auto) (1.8 - 7.7 K/mm3) 4.28 Lymph # (Auto) (1.0 - 5.0 K/mm3) 1.90 Garrard # (Auto) (0 - 0.8 K/mm3) 0.63 Eos # (Auto) (0.0 - 0.5 K/mm3) 0.14 Baso # (Auto) (0.0 - 0.2 K/mm3) 0.04 Nucleated RBC % (0 - 0 %) 0.0 Nucleated RBCs # (Man) (0.0 - 0.1 K/mm3) 0.00 Urines Urine Color (YELLOW) Light-Yellow Urine Appearance (CLEAR) CLEAR Urine pH (5.0 - 8.0) 5.0 Ur Specific [place] (1.001 - 1.035) 1.007 Urine Protein (NEGATIVE [...] motion, no CVA tenderness, no muscle spasm Neuro/NURSING DEPARTMENT CHAIRPERSON: alert, oriented X 3, CNII-XII intact, normal [...] of my knowledge. at 1644 Addendum 1: 11/10/23 164 by Jeremias Ibarra MD #Shock rule out septic shock, remains on Levophed drip- at 1645 RPT #:[id number] END OF REPORT [facility] 2023-11-10 11:32:00 [facility] ([facility]) Critical Care Consult Note REPORT#:[id number] REPORT STATUS: Signed REPORT INITIALIZATION DATE:11/10/23 TIME: 1131 PATIENT: LEANDRO LEHMAN UNIT #: [id number] [facility] AGE: 52 SEX: M ATTEND: [...] outside facility. Patient was recently admitted at [facility] from October 27 through November 05 with [...] outside facility. Patient was recently admitted at [facility] from October 27 through November 05 with [...] consultants and admitting teams. at 1407 RPT #:[id number] END OF REPORT [facility] 2022-09-24 09:36:00 [id number] [facility] [address] [place], [place] [id number] PATIENT NAME: LEANDRO LEHMAN ADMIT DATE: 09/24/22 ACCOUNT NO: [id number] ROOM NO: AGE: 51 REPORT TYPE: OPERATIVE [...] MD Date Dictated: 09/24/2022 09:36:29 PATIENT NAME: DOMINIKLEANDRO Date Transcribed: 09/24/2022 16:12:19 [facility] Receipt ID: [id number] Authenticated by Lukasz Saul MD On 10/01/2022 09:00:16 AM at 0900 PATIENT NAME: LEHMANLEANDRO [facility]
[2025-03-09] MEDS ORDERED: LEVALBUTEROL 1.25 MG/3 ML NEB ONE (19:55)
[2025-03-09] MEDS ORDERED: ONDANSETRON 4 MG/2 ML VIAL ONE (19:55)
[2025-03-09] MEDS ORDERED: FAMOTIDINE 20 MG/2 ML VIAL IV ONE (19:55)
[2025-03-09 20:04] LABS: Absolute Basophils 0.1 K/uL (0-0.5); Absolute Eosinophils 0.1 K/uL (0-0.5); Absolute Lymphocytes (CBC) 1.7 K/uL (0.7-4.9); Absolute Monocytes 0.4 K/uL (0.1-1.3); Absolute Neutrophil 4.2 K/uL (1.8-8.0); Basophils % 0.9 % (0-1.3); Eosinophils % 1.1 % (0-4.4); Lymphocytes % 26.2 % (15.3-44.8); MCH 25.9 pg (27.0-35.0); MCHC 32.5 g/dL (32.0-36.0); MCV 79.6 fL (80-100); MPV 6.9 fL (7.6-11.3); Monocytes % 6.2 % (3.3-12.3); Neutrophils % 65.6 % (41.7-73.7); Platelets 318 thou/uL (152-406); RBC Red Blood Cell Count 4.65 M/uL (4.33-5.43); Red Cell Distribution Width 15.2 % (12.1-15.2)
[2025-03-09 20:07] LABS: PT Prothrombin Time 11.2 SECONDS (10-13.0); Protime INR 0.98
[2025-03-09 20:33] LABS: Albumin 3.1 g/dL (3.4-5.0); Albumin/Globulin Ratio 0.8 (1.1-1.8); Bilirubin Total 0.8 mg/dL (0.2-1.0); Globulin 3.7 g/dL (2.3-3.5); Protein, Total 6.8 g/dL (6.4-8.2); Troponin High Sensitivity 4.1 pg/mL (<58.9)
[2025-03-09 20:33] LABS: Influenza A Ag Negative; Influenza B Ag Negative; SARS-CoV-2 Antigen Rapid Res Negative (Negative)
--- NOTE | 2025-03-09 20:55 | RAD REPORT ---
EXAMINATION: ONE VIEW CHEST XR CLINICAL INDICATION: Male, 54 years old.,SOB TECHNIQUE: Frontal chest projection is submitted. Examination is limited by patient positioning and t echnique. COMPARISON: 12/30/2024 FINDINGS: Peripheral left mid to lower lung patchy opacities mildly progressive since prior exam. No pneumotho rax or sizable effusion. The heart is normal in size. Mediastinal contours are unremarkable. IMPRESSION: Mildly progressive left mid to lower lung opacities, may represent developing pneumonia.
[2025-03-09] MEDS ORDERED: NA CHLORIDE 0.9% 250 ML ONE (21:19)
[2025-03-09] MEDS ORDERED: CEFTRIAXONE 1000 MG/VIAL ONE (21:19)
[2025-03-09] MEDS ORDERED: AZITHROMYCIN 500 MG INJ IVPB ONE (21:19)
[2025-03-09 21:25] LABS: Blood O2 Saturation 87.1 % (92-98.5)
[2025-03-09 21:26] LABS: Arterial Blood Carboxyhemoglob 1.3 % (0-1.5); Blood Gas Oxyhemoglobin 84.3 % (94-97)
[2025-03-09 21:38] LABS: Specific Gravity > 1.030 (1.005-1.030); Urine Bilirubin NEGATIVE (Negative); Urine Blood Negative (Negative); Urine Clarity Clear (Clear); Urine Color Light-Yellow (Yellow); Urine Glucose 4+ (Over) (Negative); Urine Ketones 1+ (Negative); Urine Microscopic Reflex YN NO UMIC; Urine Nitrite NEGATIVE (Negative); Urine Protein NEGATIVE (Negative); Urine Urobilinogen Normal (Normal)
[2025-03-09] MEDS ORDERED: INSULIN REGULAR (HUMAN) 100 UNIT/ML ONE (21:59)
--- NOTE | 2025-03-09 22:10 | RAD REPORT ---
EXAM: CT Chest For Pe Angio TECHNIQUE: CT angiogram of the chest was performed following intravenous contrast administration, inc luding sagittal and coronal as well as maximum intensity projection reformats. One or more of the following dose reduction techniques were used: Automated exposure control, adjustment of the mA and k V according to patient size, and iterative reconstruction. Unless otherwise specified, incidental findings do not require dedicated imaging follow-up. INDICATION: [facility] Bed Name: 3 Y COMPARISON: CT chest 06/09/2024. FINDINGS: LINES/TUBES: None. PULMONARY ARTERIES: Main pulmonary arteries are normal in caliber. No filling defects within the pul monary arteries to suggest pulmonary embolus. LUNGS AND AIRWAYS: Peripheral subpleural platelike scarring or atelectasis throughout both lungs, but stable. The lungs and central airways are otherwise normal without focal abnormality. PLEURA: No effusion or pneumothorax. HEART AND MEDIASTINUM: The visualized thyroid gland is normal. No mediastinal, hilar, or axillary lym phadenopathy. Heart is unremarkable. No pericardial effusion. SOFT TISSUES AND BONES: No acute osseous abnormality. No significant soft tissue finding. UPPER ABDOMEN: Diffuse hepatic parenchymal hypoattenuation suggesting steatosis. IMPRESSION: No evidence of acute central pulmonary emboli. No suspicious intrathoracic findings. Stable findings as above..
--- NOTE | 2025-03-09 22:17 | RAD REPORT ---
EXAMINATION: CT Abdomen Pelvis W Contrast CLINICAL INDICATION: Male, 54 years old. back pain, vomiting TECHNIQUE: CT abdomen and pelvis was performed, after the administration of IV contrast, as per [facility] protocol. Axial, sagittal and coronal reconstructions were obtained. One or more of the following dose reduction techniques were used: Automated exposure control, adjustment of the mA and k V according to patient size, and iterative reconstruction. Unless otherwise specified, incidental findings do not require dedicated imaging follow-up. COMPARISON: 08/21/2024 FINDINGS: LOWER CHEST: The visualized lung bases are clear. LIVER: Mild fatty liver is present. No focal lesion or biliary dilataion is seen. BILIARY SYSTEM: Status post cholecystectomy. SPLEEN: Normal size. No focal lesion. PANCREAS: No mass, ductal dilation, or alina-pancreatic fluid. ADRENALS: Normal; no mass. KIDNEYS: Normal size and contour. No hydronephrosis. URINARY BLADDER: Decompressed limiting evaluation. GASTROINTESTINAL TRACT: No evidence of free air, significant intra-abdominal free fluid, bowel obstru ction or abscess. APPENDIX: Normal appendix. LYMPH NODES: No lymphadenopathy. MUSCULOSKELETAL: No acute or suspicious osseous abnormality. ADDITIONAL FINDINGS: None. IMPRESSION: No acute or concerning abnormalities seen in the abdomen or pelvis.
--- NOTE | 2025-03-09 22:46 | EDPHYS ---
Physician Documentation [facility] Name: Leandro Rand Age: 54 yrs Sex: Male : 1970 Arrival Date: 03/09/2025 Time: 19:15 Bed 3 Private MD: ED Physician Oral Cano HPI: 03/09 19:50 This 54 yrs old Male presents to ER via Ambulatory with complaints of cp Nausea/Vomiting/Diarrhea, Fever, Irregular Pulse. 19:50 The patient presents to the emergency department with nausea, that is moderate, cp vomiting, that is continuous, diarrhea, that is intermittent. Onset: The symptoms/episode began/occurred this past weekend. 19:50 Possible causes: unknown. Associated signs and symptoms: Pertinent positives: fever, cp shortness of breath. Severity of symptoms: in the emergency department the symptoms are unchanged despite home interventions. Historical: - Allergies: 19:48 Farxiga; vc1 19:48 Jardiance; vc1 19:48 Steglatro; vc1 - PMHx: 19:48 Congestive heart failure; COVID-19; Diabetes - IDDM; Home Oxygen ; 3-4 L; vc1 Hyperlipidemia; kidney disease; lung failure; Myocardial infarction; Sleep Apnea; - PSHx: 19:48 Cholecystectomy; heart cath; Left first finger amputation; vc1 - Immunization history:: Adult Immunizations up to date. - Infectious Disease History:: Denies. - Social history:: Smoking status: unknown. ROS: 19:55 Constitutional: Positive for fever, poor PO intake, cp 19:55 Eyes: Negative for injury, pain, redness, and discharge, cp 19:55 Cardiovascular: Negative for chest pain, 19:55 Respiratory: Positive for shortness of breath, 19:55 Abdomen/GI: Positive for nausea, vomiting, and diarrhea, Negative for constipation, hematemesis, black/tarry stool, rectal bleeding, 19:55 Neuro: Negative for altered mental status, headache, 19:55 All other systems are negative, Exam: 19:47 ECG was reviewed by the Attending Physician. cp 20:00 Constitutional: The patient appears in no acute distress, alert, awake, cp non-diaphoretic, non-toxic, well developed, well nourished, obese, 20:00 Head/Face: Normocephalic, atraumatic. cp 20:00 Eyes: Periorbital structures: appear normal, Conjunctiva: normal, no exudate, no injection, Sclera: no appreciated abnormality, Lids and lashes: appear normal, bilaterally, 20:00 ENT: External ear(s): are unremarkable, Nose: is normal, Mouth: Lips: moist, Oral mucosa: pink and intact, moist, Posterior pharynx: Airway: no evidence of obstruction, patent, 20:00 Neck: ROM/movement: is normal, is supple, without pain, no range of motions limitations, 20:00 Chest/axilla: Inspection: normal, Palpation: is normal, no crepitus, no tenderness, 20:00 Cardiovascular: Rate: normal, Rhythm: regular, Edema: is not appreciated, JVD: is not appreciated, 20:00 Respiratory: the patient does not display signs of respiratory distress, Respirations: labored breathing, is not present, intercostal retractions, are absent, Breath sounds: decreased breath sounds, that are moderate, throughout, stridor, is not appreciated, wheezing: is not appreciated, 20:00 Abdomen/GI: Inspection: obese Palpation: abdomen is soft and non-tender, in all quadrants, 20:00 Skin: cellulitis, is not appreciated, no rash present. 20:00 Neuro: Orientation: to person, place \T\ time. Mentation: is normal, Motor: moves all fours, no focal deficits, Vital Signs: 19:45 BP 117 / 57; Pulse 97; Resp 24; Temp 99.8; Pulse Ox 76% on R/A; Weight 117.93 kg; vc1 Height 5 ft. 7 in. ; 20:01 BP 134 / 70; Pulse 84; Resp 18; Temp 99; Pulse Ox 98% on Nebulizer Mask; Pain 0/10; bm8 22:12 BP 128 / 73; Pulse 89; Resp 17; Temp 99; Pulse Ox 99% ; Pain 4/10; bm8 03/10 00:25 BP 124 / 61; Pulse 95; Resp 18; Temp 99; Pulse Ox 99% ; Pain 0/10; bm8 03/09 19:45 Body Mass Index 40.72 (117.93 kg, 170.18 cm) vc1 20:01 Pain Scale: Adult bm8 22:12 Pain Scale: Adult bm8 03/10 00:25 Pain Scale: Adult bm8 Newton Coma Score: 03/09 20:01 Eye Response: spontaneous(4). Motor Response: obeys commands(6). Verbal Response: bm8 oriented(5). Total: 15. 22:12 Eye Response: spontaneous(4). Motor Response: obeys commands(6). Verbal Response: bm8 oriented(5). Total: 15. 03/10 00:25 Eye Response: spontaneous(4). Motor Response: obeys commands(6). Verbal Response: bm8 oriented(5). Total: 15. MDM: 03/09 19:39 Medical Screening Exam initiated cp 22:30 Data reviewed: vital signs, nurses notes, lab test result(s), EKG, radiologic studies, cp CT scan, plain films, and as a result, I will admit patient. 22:30 Differential diagnosis: gastritis, cholecystitis, pancreatitis, diverticulitis, viral cp gastroenteritis, gastroenteritis, dehydration, respiratory failure, pneumonia. Management of patient was discussed with the following: Hospitalist: DR Loomis will admit after discussion. I considered the following discharge prescriptions or medication management in the emergency department Medications were administered in the Emergency Department. See MAR. Care significantly affected by the following chronic conditions: Diabetes, Obesity. Counseling: I had a detailed discussion with the patient and/or guardian regarding the historical points, exam findings, and any diagnostic results supporting the discharge/admit diagnosis, lab results, radiology results, the need for further work-up and treatment in the hospital. Response to treatment: the patient's symptoms have mildly improved after treatment. 03/09 19:44 Order name: Blood Culture Adult (2) cp 03/09 19:44 Order name: CBC with Diff; Complete Time: 20:14 cp 03/09 20:14 Interpretation: Normal except: HGB 12.0; HCT 37.0; MCV 79.6; MCH 25.9; MPV 6.9. cp 03/09 19:44 Order name: CMP; Complete Time: 20:52 cp 03/09 20:52 Interpretation: Normal except: NA 132; CL 97; GLUC 377; GFR 68; ALB 3.1; GLOB 3.7; A/G cp 0.8. 03/09 19:44 Order name: Lactate w/ 2H reflex if indic.; Complete Time: 20:52 cp 04/10 19:44 Order name: Protime (+inr); Complete Time: 20:14 cp 04/10 19:44 Order name: Ptt, Activated; Complete Time: 20:14 cp 04/10 19:44 Order name: Urinalysis w/ reflexes; Complete Time: 22:26 cp 04/10 22:26 Interpretation: Reviewed. cp 03/09 19:44 Order name: Troponin High Sensitivity; Complete Time: 20:52 cp 04/10 20:53 Interpretation: Reviewed. cp 03/09 19:44 Order name: COVID-19 Ag + Flu A+B Ag; Complete Time: 20:52 cp 10 20:52 Interpretation: Reviewed. cp 03/09 19:44 Order name: ABG; Complete Time: 22:26 cp 03/09 23:46 Order name: Magnesium EDMS 03/09 23:46 Order name: Phosphorus EDMS 03/09 23:46 Order name: Urinalysis w/ reflexes EDMS 03/09 23:46 Order name: CBC with Automated Diff EDMS 03/09 23:46 Order name: CBC with Automated Diff EDMS 03/09 23:46 Order name: Comprehensive Metabolic Panel EDMS 03/09 23:46 Order name: Comprehensive Metabolic Panel EDMS 03/09 23:49 Order name: Hemoglobin A1c EDMS 03/09 19:44 Order name: Chest Single View XRAY; Complete Time: 21:09 cp 04/10 21:13 Order name: CT Chest For PE Angio; Complete Time: 22:26 cp 10 21:13 Order name: CT Abd/Pelvis - IV Contrast Only; Complete Time: 22:26 cp 10 19:44 Order name: Cardiac monitoring; Complete Time: 20:17 cp /10 19:44 Order name: EKG - Nurse/Tech; Complete Time: 19:59 cp 04/10 19:44 Order name: IV Saline Lock - Large Bore; Complete Time: 19:59 cp 04/10 19:44 Order name: Labs collected and sent; Complete Time: 19:59 cp 04/10 19:44 Order name: O2 Per Protocol; Complete Time: 19:59 cp 04/10 19:44 Order name: O2 Sat Monitoring; Complete Time: 19:59 cp 04/10 19:44 Order name: Vital Signs; Complete Time: 20:17 cp EC:47 Rate is 90 beats/min. Rhythm is regular. PA interval is normal. QRS interval is normal. cp QT interval is normal. T waves are Inverted in lead aVR. Interpreted by me. Reviewed by me. Administered Medications: 20:03 Drug: Ondansetron IVP 4 mg IVP once; over 2 minutes Route: IVP; Site: left antecubital; bm8 20:17 Follow up: Response: No adverse reaction bm8 20:03 Drug: Famotidine IVP 20 mg IVP once; dilute with 10 mL 0.9% NaCl; give over 2 minutes bm8 Route: IVP; Site: left antecubital; 20:16 Follow up: Response: No adverse reaction bm8 20:03 Drug: Levalbuterol Inhalation 1.25 mg Inhalation once Route: Inhalation; bm8 22:13 Follow up: Response: No adverse reaction bm8 21:54 Drug: Zithromax IVPB 500 mg IVPB once over 1 hrs; mix in 250 mL NS Route: IVPB; Infused bm8 Over: 1 hrs; Site: left antecubital; 03/10 00:03 Follow up: Response: No adverse reaction; IV Status: Completed infusion bm8 03/09 21:54 Drug: Rocephin IV 1 grams IV at calculated rate once; Given slow IV push per pharmacy bm8 instructions Route: IV; Rate: calculated rate; Site: left antecubital; 22:13 Follow up: Response: No adverse reaction; IV Status: Completed infusion bm8 22:00 Drug: Insulin Regular Human Sub-Q 10 units Sub-Q once {Co-Signature: cm10 (Jluis Tomasa Lynn RN).} Route: Sub-Q; Site: left lower abdomen; 22:13 Follow up: Response: No adverse reaction bm8 Disposition: 22:20 I was immediately available on-site in the Emergency Department for consultation in the ms3 care of the patient. Disposition Summary: 03/09/25 22:45 Hospitalization Ordered Notes: Hospitalization Status: Inpatient Admission cp Provider: Prince loc Loomis Location: Telemetry/MedSurg (Inpatient) cp Condition: Stable cp Problem: an acute exacerbation cp Symptoms: have improved cp Bed/Room Type: Standard cp Room Assignment: 430(03/09/25 23:51) rv1 Diagnosis - Acute and chronic respiratory failure with hypercapnia cp - Pneumonia in diseases classified elsewhere cp Forms: - Medication Reconciliation Form cp - SBAR form cp - Leadership Thank You Letter cp Signatures: Dispatcher [employer] EDMS Cholo Jonhson PA PA cp Oral Cano, DO ms3 Prerna Bruce, RN RN vc1 Miguel, Maritza rv1 Juan Luis Taylor, RN RN bm8 Jluis, Leah RN cm10 Corrections: (The following items were deleted from the chart) 19:44 19:44 BLOOD CULTURE*+BA.LAB.BRZ ordered. EDMS EDMS 19:44 19:44 CBC+H.LAB.BRZ ordered. EDMS EDMS 19:44 19:44 COMPREHENSIVE METABOLIC PANEL+C.LAB.BRZ ordered. EDMS EDMS 19:44 19:44 LACTATE+C.LAB.BRZ ordered. EDMS EDMS 19:44 19:44 PROTIME (+INR)+COAG.LAB.BRZ ordered. EDMS EDMS 19:44 19:44 PTT, ACTIVATED+COAG.LAB.BRZ ordered. EDMS EDMS 19:44 19:44 Urinalysis+U.LAB.BRZ ordered. EDMS EDMS 19:44 19:44 Troponin High Sensitivity+C.LAB.BRZ ordered. EDMS EDMS 19:44 19:44 COVID-19 Ag + Flu A+B Ag+I.LAB.BRZ ordered. EDMS EDMS 19:44 19:44 Chest Single View+RAD.RAD.BRZ ordered. EDMS EDMS 20:17 19:44 Accucheck ordered. cp bm8 21:32 21:32 BiPap ([employer] Only)+RC.RAD.BRZ ordered. EDMS EDMS 23:51 22:45 cp rv1
--- NOTE | 2025-03-09 22:46 | ER ---
Nurse's Notes [facility] Name: Leandro Rand Age: 54 yrs Sex: Male : 1970 Arrival Date: 03/09/2025 Time: 19:15 Bed 3 Private MD: Diagnosis: Acute and chronic respiratory failure with hypercapnia;Pneumonia in diseases classified elsewhere Presentation: 03/09 19:45 Chief complaint: Spouse and/or significant other states: Started vomiting and diarrhea vc1 over weekend went to Thursday they said stomach virus. Still has v/d and fever, feels like heart is racing, had to increase O2 at home to 3.5L. Coronavirus screen: Client denies travel out of the [place] in the last 14 days. At this time, the client does not indicate any symptoms associated with coronavirus-19. Ebola Screen: Patient negative for fever greater than or equal to 101.5 degrees Fahrenheit, and additional compatible Ebola Virus Disease symptoms Patient denies exposure to infectious person. Patient denies travel to an Ebola-affected area in the 21 days before illness onset. No symptoms or risks identified at this time. Initial Sepsis Screen: Does the patient meet any 2 criteria? RR > 20 per min. HR > 90 bpm. Yes Does the patient have a suspected source of infection?. Risk Assessment: Do you want to hurt yourself or someone else? Patient reports no desire to harm self or others. Onset of symptoms is unknown. Care prior to arrival: None. 19:45 Method Of Arrival: Ambulatory vc1 19:45 Acuity: FELI 3 vc1 Triage Assessment: 19:49 General: Appears in no apparent distress. uncomfortable, obese, Behavior is calm, vc1 cooperative, appropriate for age. Pain: Denies pain. EENT: No deficits noted. No signs and/or symptoms were reported regarding the EENT system. Neuro: Level of Consciousness is awake, alert, obeys commands, Oriented to person, place, time, situation, Appropriate for age. Cardiovascular: Heart tones S1 S2 present Capillary refill < 3 seconds Patient's skin is warm and dry. Respiratory: Reports shortness of breath at rest cough that is Airway is patent Respiratory effort is even, labored, Respiratory pattern is symmetrical, tachypnea. GI: Abdomen is obese, Reports diarrhea, intolerance of fluids, intolerance of food, nausea, vomiting. : No deficits noted. No signs and/or symptoms were reported regarding the genitourinary system. Derm: Skin is intact, is healthy with good turgor, Skin is dry, Skin is normal, Skin temperature is warm. Musculoskeletal: Circulation, motion, and sensation intact. Range of motion: intact in all extremities. Historical: - Allergies: 19:48 Farxiga; vc1 19:48 Jardiance; vc1 19:48 Steglatro; vc1 - PMHx: 19:48 Congestive heart failure; COVID-19; Diabetes - IDDM; Home Oxygen ; 3-4 L; vc1 Hyperlipidemia; kidney disease; lung failure; Myocardial infarction; Sleep Apnea; - PSHx: 19:48 Cholecystectomy; heart cath; Left first finger amputation; vc1 - Immunization history:: Adult Immunizations up to date. - Infectious Disease History:: Denies. - Social history:: Smoking status: unknown. Screenin:44 [facility] ED Fall Risk Assessment (Adult) History of falling in the last 3 months, vc1 including since admission No falls in past 3 months (0 pts) Confusion or Disorientation No (0 pts) Intoxicated or Sedated No (0 pts) Impaired Gait Yes (1 pt) Mobility Assist Device Used Yes (1 pt) Altered Elimination Yes (1 pt) Score/Fall Risk Level 3 or more points = High Risk Oriented to surroundings, Maintained a safe environment, Educated pt \T\ family on fall prevention, incl call for assistance when getting out of bed, Provided non-skid footwear, Hourly rounding (assess needs \T\ fall precautionary measures) done, Utilized family, sitter, or virtual stock raiser as indicated. Abuse screen: Denies threats or abuse. Nutritional screening: No deficits noted. Tuberculosis screening: No symptoms or risk factors identified. Assessment: 20:01 Reassessment: Patient appears in no apparent distress at this time. General: Appears in bm8 no apparent distress. comfortable, Behavior is calm, cooperative, appropriate for age. Pain: Denies pain. Neuro: No deficits noted. Level of Consciousness is awake, alert, obeys commands, Oriented to person, place, time, situation, Appropriate for age. Cardiovascular: Reports shortness of breath, Heart tones S1 S2 present Capillary refill < 3 seconds in bilateral fingers Patient's skin is warm and dry. Respiratory: Airway is patent Respiratory effort is even, unlabored, Respiratory pattern is regular, symmetrical, Breath sounds are diminished bilaterally. GI: No signs and/or symptoms were reported involving the gastrointestinal system. : No signs and/or symptoms were reported regarding the genitourinary system. EENT: No signs and/or symptoms were reported regarding the EENT system. Derm: No signs and/or symptoms reported regarding the dermatologic system. Musculoskeletal: No signs and/or symptoms reported regarding the musculoskeletal system. 22:12 Reassessment: Patient appears in no apparent distress at this time. Patient and/or bm8 family updated on plan of care and expected duration. Pain level reassessed. Patient is alert, oriented x 3, equal unlabored respirations, skin warm/dry/pink. Patient denies pain at this time. Patient states feeling better. Patient states symptoms have improved. Vital Signs: 19:45 BP 117 / 57; Pulse 97; Resp 24; Temp 99.8; Pulse Ox 76% on R/A; Weight 117.93 kg; vc1 Height 5 ft. 7 in. ; 20:01 BP 134 / 70; Pulse 84; Resp 18; Temp 99; Pulse Ox 98% on Nebulizer Mask; Pain 0/10; bm8 22:12 BP 128 / 73; Pulse 89; Resp 17; Temp 99; Pulse Ox 99% ; Pain 4/10; bm8 03/10 00:25 BP 124 / 61; Pulse 95; Resp 18; Temp 99; Pulse Ox 99% ; Pain 0/10; bm8 03/09 19:45 Body Mass Index 40.72 (117.93 kg, 170.18 cm) vc1 20:01 Pain Scale: Adult bm8 22:12 Pain Scale: Adult bm8 03/10 00:25 Pain Scale: Adult bm8 Caridad Coma Score: 03/09 20:01 Eye Response: spontaneous(4). Motor Response: obeys commands(6). Verbal Response: bm8 oriented(5). Total: 15. 22:12 Eye Response: spontaneous(4). Motor Response: obeys commands(6). Verbal Response: bm8 oriented(5). Total: 15. 03/10 00:25 Eye Response: spontaneous(4). Motor Response: obeys commands(6). Verbal Response: bm8 oriented(5). Total: 15. ED Course: 03/09 19:17 Patient arrived in ED. jj6 19:37 Cholo Johnson PA is PHCP. cp 19:37 Oral Cano DO is Attending Physician. cp 19:48 Triage completed. vc1 19:48 Arm band placed on right wrist. vc1 19:50 Patient has correct armband on for positive identification. Provided Education on: plan vc1 of care. 19:59 Inserted saline lock: 20 gauge in left antecubital area, using aseptic technique. Blood af3 collected. Flushed with 10 mL NS. 19:59 EKG done, by security installation sales technician. af3 20:01 Juan Luis Taylor, RN is Primary Nurse. bm8 20:01 Client placed on continuous cardiac and pulse oximetry monitoring. NIBP monitoring bm8 applied. playground monitor on. Pulse ox on. NIBP on. Door closed. Noise minimized. Verbal reassurance given. Head of bed elevated. 20:01 No provider procedures requiring assistance completed. Initial lab(s) drawn, by ED bm8 staff, sent to lab. O2 via bipap. 20:31 Chest Single View XRAY In Process Unspecified. EDMS 21:33 CT Chest For PE Angio In Process Unspecified. EDMS 21:34 CT Abd/Pelvis - IV Contrast Only In Process Unspecified. EDMS 22:45 Prince Loomis MD is Hospitalizing Provider. cp 03/10 00:25 Patient admitted, IV remains in place. bm8 Administered Medications: 03/09 20:03 Drug: Ondansetron IVP 4 mg IVP once; over 2 minutes Route: IVP; Site: left antecubital; bm8 20:17 Follow up: Response: No adverse reaction bm8 20:03 Drug: Famotidine IVP 20 mg IVP once; dilute with 10 mL 0.9% NaCl; give over 2 minutes bm8 Route: IVP; Site: left antecubital; 20:16 Follow up: Response: No adverse reaction bm8 20:03 Drug: Levalbuterol Inhalation 1.25 mg Inhalation once Route: Inhalation; bm8 22:13 Follow up: Response: No adverse reaction bm8 21:54 Drug: Zithromax IVPB 500 mg IVPB once over 1 hrs; mix in 250 mL NS Route: IVPB; Infused bm8 Over: 1 hrs; Site: left antecubital; 03/10 00:03 Follow up: Response: No adverse reaction; IV Status: Completed infusion bm8 03/09 21:54 Drug: Rocephin IV 1 grams IV at calculated rate once; Given slow IV push per pharmacy bm8 instructions Route: IV; Rate: calculated rate; Site: left antecubital; 22:13 Follow up: Response: No adverse reaction; IV Status: Completed infusion bm8 22:00 Drug: Insulin Regular Human Sub-Q 10 units Sub-Q once {Co-Signature: [email or web address] (josias Bazzi RN).} Route: Sub-Q; Site: left lower abdomen; 22:13 Follow up: Response: No adverse reaction bm8 Medication: 19:51 VIS not applicable for this client. vc1 Outcome: 22:45 Decision to Hospitalize by Provider. loc 03/10 00:25 Admitted to Tele accompanied by nurse, via wheelchair, room 430, with oxygen, on bm8 monitor, Condition: stable Instructed on the need for admit, Demonstrated understanding of instructions, follow-up care, medications, 00:46 Patient left the ED. bm8 Signatures: Dispatcher [employer] EDMS Cholo Jhonson PA PA cp Jeffries, Jennifer jj6 Prerna Bruce RN RN vc1 Juan Luis Taylor RN RN bm8 Ana Knight Clarissa RN cm10
[2025-03-09] MEDS ORDERED: D10W 125 ML IV PRN (23:42)
[2025-03-09] MEDS ORDERED: GLUCAGON 1 MG/VIAL IM PRN (23:42)
[2025-03-09] MEDS ORDERED: ONDANSETRON 4 MG/2 ML VIAL IV PRN (23:42)
[2025-03-09] MEDS: METOCLOPRAMIDE 10 MG/2mL INJ IV SCH (23:45)
[2025-03-09] MEDS: PANTOPRAZOLE 40 MG INJ IVP SCH (23:50)
[2025-03-09] MEDS ORDERED: SODIUM CHLORIDE 0.9% 10ML INJ IV PRN (23:50)
--- NOTE | 2025-03-09 23:51 | P.HP ---
Certification for Inpatient Patient admitted to: Observation With expected LOS: <2 Midnights Practitioner: I am a practitioner with admitting privileges, knowledge of patient current condition, hospital course, and medical plan of care. Services: Services provided to patient in accordance with Admission requirements found in Title 42 Section 412.3 of the Code of Federal Regulations Patient History Date of Service: 03/09/25 Reason for admission: Intractable nausea and vomiting, abdominal pain History of Present Illness: Patient is a 54-year-old male with obesity and insulin-dependent diabetes mellitus. His presenting to ER accompanied by complaining of intractable nausea and vomiting and abdominal pain. Patient has been having shortness of breath as well. Workup in the ER included blood work which revealed hyperglycemia with blood glucose of 377. He had a CT angio of the chest, CT abdomen and pelvis which revealed no acute pathology. Patient is aric ng admitted under observation for symptomatic control, and possibly gastroparesis.. Allergies dapagliflozin [From Farxiga] Adverse Reaction (Verified 03/11/24 12:45) ketoacidosis empagliflozin [From Jardiance] Adverse Reaction (Verified 03/11/24 12:45) ketoacidosis ertugliflozin [From Steglatro] Adverse Reaction (Verified 03/11/24 12:45) ketoacidosis NSAIDS (Non-Steroidal Anti-Inflamma Adverse Reaction (Verified 03/11/24 12:45) renal insuffiency Home Medications: Hydrocodone 5/APAP 325 [[place] 5/325] 1 tab PO Q6H PRN #15 tab 03/13/24 Insulin Aspart Protam & Aspart [Novolog Mix 70-30 Vial] 100 unit SQ ACHSPRN PRN 06/09/24 Albuterol Inhaler [Ventolin Inhaler*] 2 puff IH Q6H PRN 30 Days #1 inh 06/12/24 Albuterol Neb [Proventil 0.083% Neb Soln] 2.5 mg NEB Q6HP PRN 30 Days #1 box 06/12/24 Amox/Clavulanate [Augmentin 875-125 Tab*] 1 tab PO BID 7 Days #14 tab 06/12/24 Atorvastatin Calcium 20 mg PO BEDTIME 30 Days #30 tab 06/12/24 Blood Sugar Diagnostic [Blood Glucose Test Strip] 1 each MC QID 2 Days #1 bottle 07/14/24 Blood-Glucose Meter [Blood Glucose Monitoring] 1 each QID 30 Days #1 kit 06/12/24 Dextrose [Glucose] 15 ml PO QID PRN 30 Days #1 tube 06/12/24 Insulin Glargine,Hum.rec.anlog [Lantus] 50 units SQ BID 30 Days #1 bottle 06/12/24 Insulin Lispro [Humalog*] See Protocol SQ TIDWM 30 Days #1 bottle 06/12/24 Ipratropium Neb [Atrovent*] 0.5 mg NEB [id number] PRN 30 Days #1 box 06/12/24 Metformin HCl [Glucophage*] 1,000 mg PO BIDWM 30 Days #60 tab 06/12/24 Metoprolol Tartrate [Lopressor*] 50 mg PO BID 30 Days #60 tab 06/12/24 Nebulizer Accessories [Aeroneb Go] 1 each PRN PRN 30 Days #1 ea 06/12/24 Nebulizer [Aeroneb Go Nebulizer] 1 each PRN PRN 30 Days #1 ea 06/12/24 Pantoprazole [Protonix Tab*] 40 mg PO BID 30 Days #60 tab 06/12/24 Spironolactone [Aldactone*] 25 mg PO BID 30 Days #60 tab 06/12/24 predniSONE [Deltasone] 20 mg PO DAILY 5 Days #5 tab 06/12/24 - Past Medical/Surgical History Diabetic: Yes -: IDDM II -: GERD -: HTN -: HLD -: Coronavirus pneumonia long hospitalization -: L pointer finger partial amputation Psychosocial/ Personal History: Patient lives at home with his . - Family History Mother -: Hypertension, Diabetes - Social History Alcohol use: No CD- Drugs: No Caffeine use: No Physical Examination - Vital Signs Pulse: 93 Pulse Ox (%): 100 - Physical Exam General: Acute distress, Obese HEENT: Atraumatic, Normocephalic Respiratory: Clear to auscultation bilaterally, Normal air movement Cardiovascular: No edema, Normal pulses, Regular rate/rhythm, Normal S1 S2 Gastrointestinal: Tenderness Neurological: Normal speech - Studies Laboratory Data (last 24 hrs) 03/09/25 03/09/25 03/09/25 19:50 19:50 19:50 WBC 6.50 Hgb 12.0 L Hct 37.0 L Plt Count 318 PT 11.2 INR 0.98 APTT 27.0 L Sodium 132 L Potassium 4.0 BUN 12 Creatinine 1.27 Glucose 377 H Total Bilirubin 0.8 AST 27 ALT 44 Alkaline Phosphatase 98 Assessment and Plan - Problems (Diagnosis) (1) Intractable nausea and vomiting Current Visit: No Status: Acute (2) Gastroparesis Current Visit: No Status: Chronic (3) Hyperlipidemia Current Visit: No Status: Chronic Qualifiers: (4) Hypertension Current Visit: No Status: Chronic Qualifiers: (5) Morbid obesity due to excess calories Current Visit: No Status: Chronic (6) Type 2 diabetes mellitus Current Visit: No Status: Chronic Qualifiers: - Plan Assessment Patient is a 54-year-old male who is being admitted with abdominal pain, nausea and vomiting. Workup is unremarkable for hyperglycemia with a blood glucose of 377. He has a history of type [address] chest, abdomen and pelvis did not reveal any acute pathology. Patient is being admitted for possible gastroparesis. Patient has a history of cholecystectomy for acute cholecystitis. Suspected gastroparesis Intractable nausea and vomiting Type 2 diabetes mellitus with hyperglycemia Hypertension Hyperlipidemia Morbid obesity Plan: Will admit under observation with telemetry Volume repletion with normal saline Insulin sliding scale Check hemoglobin A1c Symptomatic control with Reglan, PPI and as needed IV [facility] has been consulted, Dr. Dodson Patient is full code Resume rest of home medications once reconciled - Advance Directives Does patient have a Living Will: No Does patient have a Durable POA for Healthcare: No
[2025-03-10 01:30] VITALS: BMI 40.7
[2025-03-10] MEDS: ACETAMINOPHEN 500 MG TAB PO PRN (02:21)
[2025-03-10] MEDS: NA CHLORIDE 0.9% 1,000 ML IV SCH (02:26)
[2025-03-10 05:16] LABS: Absolute Eosinophils 0.1 K/uL (0-0.5); Absolute Lymphocytes (CBC) 0.9 K/uL (0.7-4.9); Absolute Monocytes 0.4 K/uL (0.1-1.3); Absolute Neutrophil 5.7 K/uL (1.8-8.0); Basophils % 0.7 % (0-1.3); Eosinophils % 1.8 % (0-4.4); Hematocrit 34.1 % (39.6-49.0); Hemoglobin 11.2 g/dL (13.6-17.9); Lymphocytes % 12.5 % (15.3-44.8); MCH 26.1 pg (27.0-35.0); MCHC 32.8 g/dL (32.0-36.0); MCV 79.6 fL (80-100); MPV 6.7 fL (7.6-11.3); Platelets 290 thou/uL (152-406); RBC Red Blood Cell Count 4.28 M/uL (4.33-5.43)
[2025-03-10 05:28] LABS: Albumin 2.9 g/dL (3.4-5.0); Albumin/Globulin Ratio 0.8 (1.1-1.8); Anion Gap 9.4 mEq/L (5.0-15.0); Bilirubin Total 0.6 mg/dL (0.2-1.0); Globulin 3.5 g/dL (2.3-3.5); Magnesium 1.9 mg/dL (1.6-2.4); Phosphorus 3.3 mg/dL (2.5-4.9); Potassium 3.4 mEq/L (3.5-5.1); Protein, Total 6.4 g/dL (6.4-8.2)
[2025-03-10] MEDS: ENOXAPARIN 40 MG/0.4 ML SQ SCH (10:07)
[2025-03-10 13:10] LABS: Urine Bilirubin NEGATIVE (Negative); Urine Blood Negative (Negative); Urine Clarity Clear (Clear); Urine Color Light-Yellow (Yellow); Urine Glucose 4+ (Over) (Negative); Urine Ketones NEGATIVE (Negative); Urine Microscopic Reflex YN NO UMIC; Urine Nitrite NEGATIVE (Negative); Urine Protein NEGATIVE (Negative); Urine Urobilinogen Normal (Normal); Urine pH 5.5 (5.0-7.0)
--- NOTE | 2025-03-10 14:15 | EKG ---
Test Date: 2025-03-09 Test Time: 19:39:32 Nursing Home Manager: AF MEASUREMENT RESULTS: Intervals: Rate: 90 PA: 128 QRSD: 80 QT: 350 QTc: 428 [place]: P: 65 PA: 128 QRS: 19 T: 62 INTERPRETIVE STATEMENTS: Normal sinus rhythm Normal ECG Compared to ECG 12/30/2024 09:23:03 No significant changes Electronically Signed On 03-10-25 14:12:44 CDT by Javier Alvarez
--- NOTE | 2025-03-10 16:00 | P.PN ---
Date of Service: 03/10/25 Subjective: Seen sleeping in bed. at bedside. States he has been having diarrhea and vomiting for the last few weeks. She states this started with a bug in her home. Her was diagnosed with a stomach flu. She says he has had long COVID and has been on 3 L nasal cannula since. Denies fevers and chills Review of systems: 10 point review of systems otherwise negative except as mentioned per HPI Home Medications: Hydrocodone 5/APAP 325 [[place] 5/325] 1 tab PO Q6H PRN #15 tab 03/13/24 Insulin Aspart Protam & Aspart [Novolog Mix 70-30 Vial] 100 unit SQ ACHSPRN PRN 06/09/24 Albuterol Inhaler [Ventolin Inhaler*] 2 puff IH Q6H PRN 30 Days #1 inh 06/12/24 Albuterol Neb [Proventil 0.083% Neb Soln] 2.5 mg NEB Q6HP PRN 30 Days #1 box 06/12/24 Amox/Clavulanate [Augmentin 875-125 Tab*] 1 tab PO BID 7 Days #14 tab 06/12/24 Atorvastatin Calcium 20 mg PO BEDTIME 30 Days #30 tab 06/12/24 Blood Sugar Diagnostic [Blood Glucose Test Strip] 1 each QID 2 Days #1 bottle 06/12/24 Blood-Glucose Meter [Blood Glucose Monitoring] 1 each QID 30 Days #1 kit 06/12/24 Dextrose [Glucose] 15 ml PO QID PRN 30 Days #1 tube 06/12/24 Insulin Glargine,Hum.rec.anlog [Lantus] 50 units SQ BID 30 Days #1 bottle 06/12/24 Insulin Lispro [Humalog*] See Protocol SQ TIDWM 30 Days #1 bottle 06/12/24 Ipratropium Neb [Atrovent*] 0.5 mg NEB [id number] PRN 30 Days #1 box 06/12/24 Metformin HCl [Glucophage*] 1,000 mg PO BIDWM 30 Days #60 tab 06/12/24 Metoprolol Tartrate [Lopressor*] 50 mg PO BID 30 Days #60 tab 06/12/24 Nebulizer Accessories [Aeroneb Go] 1 each MC PRN PRN 30 Days #1 ea 06/12/24 Nebulizer [Aeroneb Go Nebulizer] 1 each MC PRN PRN 30 Days #1 ea 06/12/24 Pantoprazole [Protonix Tab*] 40 mg PO BID 30 Days #60 tab 06/12/24 Spironolactone [Aldactone*] 25 mg PO BID 30 Days #60 tab 06/12/24 predniSONE [Deltasone] 20 mg PO DAILY 5 Days #5 tab 06/12/24 - Past Medical/Surgical History Diabetic: Yes -: IDDM II -: GERD -: HTN -: HLD -: Coronavirus pneumonia long hospitalization -: L pointer finger partial amputation Psychosocial/ Personal History: Patient lives at home with his . - Family History Mother -: Hypertension, Diabetes - Social History Alcohol use: No CD- Drugs: No Caffeine use: No Physical Examination - Vital Signs Pulse: 93 Pulse Ox (%): 100 - Physical Exam General: Acute distress, Obese HEENT: Atraumatic, Normocephalic Respiratory: Clear to auscultation bilaterally, Normal air movement Cardiovascular: No edema, Normal pulses, Regular rate/rhythm, Normal S1 S2 Gastrointestinal: Tenderness Neurological: Normal speech - Studies Laboratory Data (last 24 hrs) 03/09/25 03/09/25 03/09/25 19:50 19:50 19:50 WBC 6.50 Hgb 12.0 L Hct 37.0 L Plt Count 318 PT 11.2 INR 0.98 APTT 27.0 L Sodium 132 L Potassium 4.0 BUN 12 Creatinine 1.27 Glucose 377 H Total Bilirubin 0.8 AST 27 ALT 44 Alkaline Phosphatase 98 Assessment and Plan - Problems (Diagnosis) (1) Intractable nausea and vomiting Current Visit: No Status: Acute (2) Gastroparesis Current Visit: No Status: Chronic (3) Hyperlipidemia Current Visit: No Status: Chronic Qualifiers: (4) Hypertension Current Visit: No Status: Chronic Qualifiers: (5) Morbid obesity due to excess calories Current Visit: No Status: Chronic (6) Type 2 diabetes mellitus Current Visit: No Status: Chronic Qualifiers: - Plan Assessment Patient is a 54-year-old male who is being admitted with abdominal pain, nausea and vomiting. Workup is unremarkable for hyperglycemia with a blood glucose of 377. He has a history of type [address] chest, abdomen and pelvis did not reveal any acute pathology. Patient is being admitted for possible gastroparesis. Patient has a history of cholecystectomy for acute cholecystitis. Suspected gastroparesis Pneumonia Leukocytosis Intractable nausea and vomiting Uncontrolled type 2 diabetes mellitus with hyperglycemia Hypertension Hyperlipidemia Morbid obesity Hyponatremia resolved Plan: Continue Rocephin and azithromycin for suspected pneumonia, obtain procalcitonin and CRP Chest x-ray showing infiltrate Volume repletion with normal saline Start moderate dose sliding scale insulin A1c at 10.7 Symptomatic control with Reglan, PPI and as needed IV [facility] GI has been consulted, Dr. Dodson Patient is full code Resume rest of home medications once reconciled - Advance Directives Does patient have a Living Will: No Does patient have a Durable POA for Healthcare: No
[2025-03-10] MEDS: INSULIN REGULAR (HUMAN) 100 UNIT/ML SQ SCH (17:39)
[2025-03-10] MEDS: CEFTRIAXONE 1,000 MG in NA CHLORIDE 0.9% 50 ML IVPB SCH (21:18)
[2025-03-11 08:44] VITALS: BP 129/51; TEMP 99
[2025-03-11] MEDS: AZITHROMYCIN 250 MG TAB PO SCH (09:28)
[2025-03-11 09:54] VITALS: O2SAT 91
--- NOTE | 2025-03-11 15:18 | P.DS ---
Admission Date: 03/09/25 Discharge Date: 03/11/25 Disposition: ROUTINE DISCHARGE Discharge Condition: GOOD Reason for Admission: Intractable nausea and vomiting, abdominal pain Brief History of Present Illness: Patient is 54 years of age admitted with acute nausea vomiting Hospital Course: Patient was admitted with possible gastroenteritis he had a flu recently discussed with did well with conservative therapy CT scan of the chest and abdomen did not reveal any acute changes laboratory data unremarkable discussed with he does have a history of sleep apnea uses oxygen at home most likely underlying obesity hypoventilation syndrome at the time of discharge patient alert oriented responsive cooperative at the bedside agreed for the patient to be going to be discharge on examination his chest was clear to follow-up with his primary care physician I have also advised him to follow-up in my office for management of his CPAP Vital Signs/Physical Exam: Temp Pulse Resp BP Pulse Ox 99.0 F 88 26 H 129/51 L 91 03/11/25 08:00 03/11/25 08:00 03/11/25 08:00 03/11/25 08:00 03/11/25 08:00 Laboratory Data at Discharge: WBC 7.10 thou/uL (4.3-10.9) 03/10/25 04:43 Hgb 11.2 g/dL (13.6-17.9) L 03/10/25 04:43 Hct 34.1 % (39.6-49.0) L 03/10/25 04:43 Plt Count 290 thou/uL (152-406) 03/10/25 04:43 PT 11.2 SECONDS (10-13.0) 03/09/25 19:50 INR 0.98 03/09/25 19:50 APTT 27.0 SECONDS (27.2-37.4) L 03/09/25 19:50 Sodium 138 mEq/L (136-145) D 03/10/25 04:43 Potassium 3.4 mEq/L (3.5-5.1) L D 03/10/25 04:43 BUN 10 mg/dL (7-18) 03/10/25 04:43 Creatinine 0.91 mg/dL (0.70-1.30) 03/10/25 04:43 Glucose 222 mg/dL (74-106) H 03/10/25 04:43 Phosphorus 3.3 mg/dL (2.5-4.9) 03/10/25 04:43 Magnesium 1.9 mg/dL (1.6-2.4) 03/10/25 04:43 Total Bilirubin 0.6 mg/dL (0.2-1.0) 03/10/25 04:43 AST 17 U/L (15-37) 03/10/25 04:43 ALT 35 U/L (16-61) 03/10/25 04:43 Alkaline Phosphatase 85 U/L (45-117) 03/10/25 04:43 Home Medications: Albuterol Inhaler [Ventolin Inhaler*] 2 puff IH Q6H PRN 30 Days #1 inh 06/12/24 Albuterol Neb [Proventil 0.083% Neb Soln] 2.5 mg NEB Q6HP PRN 30 Days #1 box 06/12/24 Atorvastatin Calcium 20 mg PO BEDTIME 30 Days #30 tab 06/12/24 Blood Sugar Diagnostic [Blood Glucose Test Strip] 1 each QID 2 Days #1 bottle 06/12/24 Blood-Glucose Meter [Blood Glucose Monitoring] 1 each QID 30 Days #1 kit 05/30 03/23 Insulin Lispro [Humalog*] See Protocol SQ TIDWM 30 Days #1 bottle 06/12/24 Metformin HCl [Glucophage*] 1,000 mg PO BIDWM 30 Days #60 tab 06/12/24 Metoprolol Tartrate [Lopressor*] 50 mg PO BID 30 Days #60 tab 06/12/24 Nebulizer Accessories [Aeroneb Go] 1 each PRN PRN 30 Days #1 ea 06/12/24 Nebulizer [Aeroneb Go Nebulizer] 1 each PRN PRN 30 Days #1 ea 06/12/24 Spironolactone [Aldactone*] 25 mg PO BID 30 Days #60 tab 06/12/24 Insulin Glargine,Hum.rec.anlog [Basaglar Kwikpen U-100] 50 unit SQ BID 03/10/25 Pantoprazole [Protonix Tab*] 40 mg PO BID 03/10/25 glipiZIDE [Glipizide] 5 mg PO DAILY 03/10/25 Ondansetron [Zofran] 4 mg PO Q8H PRN 3 Days #10 tab 03/11/25 New Medications: Ondansetron [Zofran] 4 mg PO Q8H PRN 3 Days #10 tab PRN Reason: Nausea / Vomiting Followup: NITA CASTELLANOS [Primary Care Provider] - 1-2 Weeks (Call for appointment.)
== END 2025-03-11 10:15 | disposition home or self-care (01) ==
LOC: ER 19:15 → 4TH 23:42
PROVIDERS: ADMIT Internal Medicine; ATTEND Internal Medicine Sleep Medicine
DX: J18.9 Pneumonia, unspecified organism (principal); J96.22 Acute and chronic respiratory failure with hypercapnia; R11.2 Nausea with vomiting, unspecified; R10.9 Unspecified abdominal pain; G47.33 Obstructive sleep apnea (adult) (pediatric); E11.65 Type 2 diabetes mellitus with hyperglycemia; E66.9 Obesity, unspecified; R06.02 Shortness of breath; E11.43 Type 2 diabetes mellitus with diabetic autonomic (poly)neuropathy; K31.84 Gastroparesis; I10 Essential (primary) hypertension; E78.5 Hyperlipidemia, unspecified; I25.2 Old myocardial infarction; E86.9 Volume depletion, unspecified; E87.1 Hypo-osmolality and hyponatremia; D72.829 Elevated white blood cell count, unspecified; Z79.4 Long term (current) use of insulin; Z88.6 Allergy status to analgesic agent; Z88.8 Allergy status to other drugs, medicaments and biological substances; Z86.16 Personal history of COVID-19; Z68.41 Body mass index [BMI] 40.0-44.9, adult; Z90.49 Acquired absence of other specified parts of digestive tract; Z99.81 Dependence on supplemental oxygen
CPT/HCPCS: 96365; 96368; 93005; 87040 ×2; 85025 ×2; 36415 ×3; 83735; 84100; 85610; 82947 ×4; 83605; 85730; 81003 ×2; 83036; 84484; 80053 ×2; 84145; 86140; 71275; 74177; 71045; 82805; 96375; 96372; 99285; 96366; 87428; 36600; 94660 ×2; Q9967; J2765 ×5; J7614; J2470 ×2; J1650 ×2; J2405; J1815 ×3; J7050; J7030 ×3; J0696 ×3; G0378

== ENCOUNTER 2025-09-21 20:18 | Emergency (ER) | payer OTHER, SELFPAY ==
[2025-09-21] MEDS ORDERED: METOCLOPRAMIDE 10 MG/2mL INJ ONE (20:52)
[2025-09-21] MEDS ORDERED: ALBUTEROL 2.5 MG/3 ML NEB SOL ONE ×2 (20:52→21:04)
[2025-09-21] MEDS ORDERED: DIPHENHYDRAMINE 50 MG/ML VIAL ONE (20:52)
[2025-09-21] MEDS ORDERED: IPRATROPIUM BROM 0.5MG/2.5ML ONE (20:52)
[2025-09-21 21:01] LABS: Absolute Lymphocytes (CBC) 2.5 K/uL (0.7-4.9); Hematocrit 41.1 % (39.6-49.0); Hemoglobin 13.2 g/dL (13.6-17.9); MCH 25.8 pg (27.0-35.0); MCHC 32.1 g/dL (32.0-36.0); MCV 80.5 fL (80-100); MPV 7.2 fL (7.6-11.3); Nucleated RBC Absolute Count 0.0 (0-0); Nucleated Red Blood Cells % 0.1 % (0-0); RBC Red Blood Cell Count 5.10 M/uL (4.33-5.43); White Blood Count 7.20 thou/uL (4.3-10.9)
[2025-09-21 21:08] LABS: PT Prothrombin Time 13.1 SECONDS (10-13.0); Protime INR 1.16
[2025-09-21 21:17] LABS: Influenza A Ag Negative; Influenza B Ag Negative; SARS-CoV-2 Antigen Rapid Res Negative (Negative)
[2025-09-21 21:24] LABS: ALT/SGPT 121.0 U/L (16-61); Albumin 3.3 g/dL (3.4-5.0); Albumin/Globulin Ratio 0.8 (1.1-1.8); Alkaline Phosphatase 89.0 U/L (45-117); Anion Gap 10.9 mEq/L (5.0-15.0); BUN Blood Urea Nitrogen 9.0 mg/dL (7-18); Bilirubin Indirect, Calculated 0.6 mg/dL (0.2-0.8); Globulin 4.1 g/dL (2.3-3.5); Glucose Level 216.0 mg/dL (74-106); Lipase 26.0 U/L (13-75); NT PRO-BNP 6.0 pg/mL (<125); Troponin High Sensitivity 11.5 pg/mL (<58.9)
[2025-09-21 21:25] LABS: AST/SGOT 99.0 U/L (15-37); Magnesium 2.0 mg/dL (1.6-2.4); Potassium 3.9 mEq/L (3.5-5.1)
--- NOTE | 2025-09-21 21:53 | RAD REPORT ---
Procedure: Chest Single View HISTORY: Cough COMPARISON: February 2025 FINDINGS: The lungs appear clear of acute infiltrate. No significant pleural effusion noted. The heart is normal size. IMPRESSION: No acute abnormality is displayed.
--- NOTE | 2025-09-22 | RAD REPORT ---
CLINICAL HISTORY: NAUSEA / VOMITING. COMPARISON: CT abdomen/pelvis from March 09, 2025. TECHNIQUE: A noncontrast appearing exam was ultimately performed due to IV contrast infiltration. S erial axial CT images were obtained from above the diaphragm through the pubic symphysis without administration of intravenous or oral contrast. All CT scans are performed using dose optimization techniques as appropriate, including automated exp osure control and/or standardized protocols, where dose is adjusted for indication for exam and body habitus. FINDINGS: Thoracic: No significant abnormality. Hepatobiliary: Diffuse hepatic steatosis. Hepatomegaly, measuring 18.2 cm in length. No obvious con cerning hepatic lesion identified in the absence of intravenous contrast. The gallbladder is surgically absent. No biliary ductal dilatation. Pancreas: Unremarkable. Spleen: Unremarkable. Gastrointestinal: No evidence of bowel obstruction or perienteric inflammation. The appendix is alicia l. Small stool burden. Adrenals: No abnormality identified in either adrenal gland. Renal: No obvious concerning parenchymal abnormality in either kidney in the absence of intravenous c ontrast. No hydronephrosis or urolithiasis. Trace excreted contrast in the renal collecting systems. Bladder/Reproductive: Mild circumferential wall thickening of the underdistended urinary bladder. Vascular/Lymphatics: No lymphadenopathy identified by CT size criteria. Abdominal aorta is normal in caliber. Musculoskeletal: No concerning osseous lesion identified. Mild to moderate bilateral hip osteoarthros is with mild subchondral cystic change. Fluid / peritoneum: No significant free fluid. No free intraperitoneal air identified. IMPRESSION: 1. Mild urinary bladder wall thickening, which could be related to underdistention or cystitis. 2. No additional potential acute finding. 3. Diffuse hepatic steatosis and hepatomegaly. Electronically signed by: Maria Luisa Hinkle MD 09/21/2025 11:56 PM CDT Due to temporary technical issues with the PACS/[employer] reporting system, reports are being edson d by the in-house radiologist without review as a courtesy to ensure prompt reporting the interpreting radiologist is fully responsible for the content of the report. Transcribed Date/Time: 09/22/2025 12:00 AM
[2025-09-22 01:23] LABS: Sqamous Epithelial <5 /HPF (None Seen); Urine Culture Reflex Order NOT NEEDED; Urine Microscopic Reflex YN ORDER UMIC
--- NOTE | 2025-09-22 01:41 | EDPHYS ---
Physician Documentation [facility] Name: Leandro Rand Age: 54 yrs Sex: Male : 1970 Arrival Date: 09/21/2025 Time: 20:18 Bed 7 Private MD: ED Physician Chaitanya Amin HPI: 09/21 20:45 This 54 yrs old Male presents to ER via Ambulatory with complaints of cp Nausea/Vomiting, Flu Symptoms. 20:45 The patient presents to the emergency department with nausea, that is moderate, cp vomiting, that is intermittent, diarrhea, that is intermittent. 20:45 Onset: The symptoms/episode began/occurred 1 week(s) ago. cp 20:45 Possible causes: unknown. Associated signs and symptoms: Pertinent positives: pain all cp over, body aches, Pertinent negatives: abdominal pain, fever, chest pain. Severity of symptoms: in the emergency department the symptoms are unchanged despite home interventions. Historical: - Allergies: 20:31 Farxiga; bm8 20:31 Jardiance; bm8 20:31 Steglatro; bm8 - Home Meds: 20:31 Unable to obtain [Active]; bm8 - PMHx: 20:31 Congestive heart failure; COVID-19; Diabetes - IDDM; Home Oxygen ; 3-4 L; bm8 Hyperlipidemia; kidney disease; lung failure; Myocardial infarction; Sleep Apnea; - PSHx: 20:31 Cholecystectomy; heart cath; Left first finger amputation; bm8 - Immunization history:: Adult Immunizations up to date, Adult Immunizations. - Infectious Disease History:: Denies. - Social history:: Smoking status: Patient denies any tobacco usage or history of. ROS: 20:50 Constitutional: Positive for body aches, poor PO intake, Negative for fever, cp 20:50 Eyes: Negative for injury, pain, redness, and discharge, cp 20:50 Cardiovascular: Negative for chest pain, palpitations, 20:50 Respiratory: Positive for cough, Negative for shortness of breath, wheezing, 20:50 Abdomen/GI: Positive for nausea and vomiting, diarrhea, Negative for abdominal pain, 20:50 Neuro: Negative for altered mental status, 20:50 All other systems are negative, Exam: 20:55 Constitutional: The patient appears in no acute distress, alert, awake, cp non-diaphoretic, non-toxic, well developed, well nourished, obese, uncomfortable, 20:55 Head/Face: Normocephalic, atraumatic. cp 20:55 Eyes: Periorbital structures: appear normal, Conjunctiva: normal, no exudate, no injection, Sclera: no appreciated abnormality, Lids and lashes: appear normal, bilaterally, 20:55 ENT: External ear(s): are unremarkable, Nose: is normal, Mouth: Lips: moist, Oral mucosa: moist, Posterior pharynx: Airway: no evidence of obstruction, patent, 20:55 Neck: ROM/movement: is normal, is supple, without pain, no range of motions limitations, no meningismus, 20:55 Chest/axilla: Inspection: normal, 20:55 Cardiovascular: Rate: normal, Rhythm: regular, Edema: is not appreciated, JVD: is not appreciated, 20:55 Respiratory: the patient does not display signs of respiratory distress, Respirations: normal, no use of accessory muscles, no retractions, labored breathing, is not present, Breath sounds: decreased breath sounds, are not appreciated, stridor, is not appreciated, wheezing: is not appreciated, 20:55 Abdomen/GI: Inspection: obese Bowel sounds: active, all quadrants, Palpation: soft, in all quadrants, nontender, in all quadrants, 20:55 Back: CVA tenderness, is absent, 20:55 Skin: cellulitis, is not appreciated, no rash present. 20:55 Neuro: Orientation: to person, place \T\ time. Mentation: is normal, Cerebellar function: is grossly normal, Motor: moves all fours, strength is normal, Sensation: is normal, 22:25 ECG was reviewed by the Attending Physician. cp Vital Signs: 20:30 BP 134 / 83; Pulse 94; Resp 17; Temp 98.8; Pulse Ox 95% ; Weight 126.1 kg; Height 5 ft. bm8 4 in. ; Pain 7/10; 21:42 BP 141 / 59; Pulse 79; Resp 22; Pulse Ox 99% on 3 lpm NC; jb4 22:21 BP 138 / 54; Pulse 87; Resp 21; Temp 98.8; Pulse Ox 94% on 3 lpm NC; Pain 0/10; bm8 23:23 BP 150 / 78; Pulse 84; Resp 17; Temp 98.8; Pulse Ox 95% on 3 lpm NC; Pain 0/10; bm8 09/22 01:17 BP 137 / 70; Pulse 82; Resp 17; Temp 98.8; Pulse Ox 97% ; Pain 0/10; bm8 09/21 20:30 Body Mass Index 47.72 (126.10 kg, 162.56 cm) 8 09/21 20:30 Pain Scale: Adult bm8 22:21 Pain Scale: Adult bm8 23:23 Pain Scale: Adult 8 09/22 01:17 Pain Scale: Adult bm8 Matinicus Coma Score: 09/21 22:21 Eye Response: spontaneous(4). Motor Response: obeys commands(6). Verbal Response: bm8 oriented(5). Total: 15. 23:23 Eye Response: spontaneous(4). Motor Response: obeys commands(6). Verbal Response: bm8 oriented(5). Total: 15. 09/22 01:17 Eye Response: to voice(3). Motor Response: obeys commands(6). Verbal Response: bm8 oriented(5). Total: 14. MDM: 09/21 20:27 Medical Screening Exam initiated cp 21:00 Differential diagnosis: gastritis, pancreatitis, viral gastroenteritis, cp gastroenteritis, dehydration, uti, pyelonephritis. 09/22 01:40 Data reviewed: vital signs, nurses notes, lab test result(s), EKG, radiologic studies, cp CT scan, plain films, and as a result, I will discharge patient. 01:40 I considered the following discharge prescriptions or medication management in the emergency department Medications were administered in the Emergency Department. See MAR. Care significantly affected by the following chronic conditions: Diabetes, Congestive Heart Failure, Obesity. Counseling: I had a detailed discussion with the patient and/or guardian regarding the historical points, exam findings, and any diagnostic results supporting the discharge/admit diagnosis, lab results, radiology results, to return to the emergency department if symptoms worsen or persist or if there are any questions or concerns that arise at home. Response to treatment: the patient's symptoms have mildly improved after treatment, and as a result, I will discharge patient. 09/21 20:39 Order name: Basic Metabolic Panel; Complete Time: 21:28 09/21 21:29 Interpretation: Normal except: GLUC 216. 09/21 20:39 Order name: CBC with Diff; Complete Time: 21:28 cp 09/21 21:29 Interpretation: Normal except: HGB 13.2; MCH 25.8; MPV 7.2; BASO% 1.4. cp 09/21 20:39 Order name: LFT's; Complete Time: 21:28 cp 09/21 20:39 Order name: Magnesium; Complete Time: 21:28 cp 09/21 20:39 Order name: NT PRO-BNP; Complete Time: 21:28 cp 09/21 20:39 Order name: PT-INR; Complete Time: 21:28 cp 09/21 20:39 Order name: Troponin HS; Complete Time: 21:28 cp 09/21 20:39 Order name: COVID-19 Ag + Flu A+B Ag; Complete Time: 21:28 cp 09/21 20:39 Order name: Lipase; Complete Time: 21:28 cp 09/22 00:06 Order name: UA Rfx Temo Cult if indicated; Complete Time: 01:37 cp 09/22 01:38 Interpretation: Reviewed. cp 09/21 20:39 Order name: XRAY Chest (1 view); Complete Time: 22:34 cp 09/21 23:32 Order name: Abdomen EDMS 09/21 20:39 Order name: Cardiac monitoring; Complete Time: 21:00 cp 09/21 20:39 Order name: EKG - Nurse/Tech; Complete Time: 21:00 cp 09/21 20:39 Order name: IV Saline Lock; Complete Time: 20:40 cp 09/21 20:39 Order name: Labs collected and sent; Complete Time: 21:00 cp 09/21 20:39 Order name: O2 Per Protocol; Complete Time: 20:40 cp 09/21 20:39 Order name: O2 Sat Monitoring; Complete Time: 20:40 cp 09/22 00:06 Order name: PO challenge; Complete Time: 00:47 cp EC/23 22:25 Rate is 83 beats/min. Rhythm is regular. KS interval is normal. QRS interval is normal. cp QT interval is normal. T waves are Inverted in lead aVR. Interpreted by me. Reviewed by me. Administered Medications: 21:00 Drug: metoCLOPramide IVP 10 mg IVP once; over 1 to 2 minutes Route: IVP; Site: right jb4 antecubital; 21:43 Follow up: Response: No adverse reaction; Marked relief of symptoms jb4 21:00 Drug: diphenhydrAMINE IVP 25 mg IVP once Route: IVP; Site: right antecubital; jb4 :43 Follow up: Response: No adverse reaction; Marked relief of symptoms jb4 21:00 Drug: DuoNeb Nebulize (2.5 mg - 0.5 mg) 3 ml Nebulizer once Route: Nebulizer; jb4 :43 Follow up: Response: No adverse reaction; No change in condition jb4 21:06 Drug: Albuterol Inhalation 2.5 mg Inhalation continuous x2 Route: Inhalation; jb4 :43 Follow up: Response: No adverse reaction; Marked relief of symptoms jb4 21:51 Follow up: Response: No adverse reaction bm8 21:06 Drug: Albuterol Inhalation 2.5 mg Inhalation continuous x2 Route: Inhalation; jb4 Disposition: 09/22 02:24 Co-signature as Attending Physician, Chaitanya MONTIEL reviewed the patient's care tt7 provided by the Advanced Practice Provider and agree with the diagnosis and treatment plan. Disposition Summary: 09/22/25 01:40 Discharge Ordered Notes: Location: Home cp Problem: new cp Symptoms: have improved cp Condition: Stable cp Diagnosis - Nausea with vomiting, unspecified cp - Acute pain, not elsewhere classified - generalized cp - Cough cp Followup: cp - With: Private Physician - When: 2 - 3 days - Reason: symptoms continue Discharge Instructions: - Discharge Summary Sheet cp - Nausea and Vomiting, Adult cp - Cough, Adult cp - Acute Pain, Adult cp Forms: - Medication Reconciliation Form cp - Antibiotic Education cp - Prescription Opioid Use cp - Patient Portal Instructions cp - Leadership Thank You Letter cp Prescriptions: - Ibuprofen 800 mg Oral Tablet - take 1 tablet ORAL route every 8 hours As needed take with food; 30 tablet; cp Refills: 0, Product Selection Permitted - Tessalon Perles 100 mg Oral capsule - take 2 capsule ORAL route every 8 hours As needed; 30 capsule; Refills: 0, cp Product Selection Permitted - ondansetron 8 mg Oral Tablet,disintegrating - take 1 tablet ORAL route every 12 hours; 15 tablet; Refills: 0, Product cp Selection Permitted Signatures: Dispatcher [employer] EDCholo Smith PA-C PAKerriC Dimitry Baker RN RN jb4 Juan Luis Taylor RN RN bm8 Chaitanya Amin, DO DO tt7 Corrections: (The following items were deleted from the chart) 09/21 20:40 20:40 Chest Single View+RAD.RAD.BRZ ordered. EDMS EDMS 23:32 22:35 Abdomen Pelvis W Con+CT.RAD.BRZ ordered. EDMS EDMS 09/22 00:07 00:07 UA Rfx Temo Cult if indicated+U.LAB.BRZ ordered. EDMS EDMS
--- NOTE | 2025-09-22 01:41 | ER ---
Nurse's Notes [facility] Name: Leandro Rand Age: 54 yrs Sex: Male : 1970 Arrival Date: 09/21/2025 Time: 20:18 Bed 7 Private MD: Diagnosis: Nausea with vomiting, unspecified;Acute pain, not elsewhere classified-generalized;Cough Presentation: 09/21 20:30 Chief complaint: Patient states: For one week I have had n/v and body aches but no bm8 ffever. Coronavirus screen: At this time, the client does not indicate any symptoms associated with coronavirus-19. Ebola Screen: Patient negative for fever greater than or equal to 101.5 degrees Fahrenheit, and additional compatible Ebola Virus Disease symptoms Patient denies exposure to infectious person. Patient denies travel to an Ebola-affected area in the 21 days before illness onset. No symptoms or risks identified at this time. Initial Sepsis Screen: Does the patient meet any 2 criteria? No. Patient's initial sepsis screen is negative. Does the patient have a suspected source of infection? No. Patient's initial sepsis screen is negative. Risk Assessment: Do you want to hurt yourself or someone else? Patient reports no desire to harm self or others. Onset of symptoms was September 17, 2025 at 08:00. 20:30 Method Of Arrival: Ambulatory bm8 20:30 Acuity: FELI 3 bm8 Triage Assessment: 20:31 General: Appears in no apparent distress. uncomfortable, Behavior is calm, cooperative, bm8 appropriate for age. Pain: Complains of pain in abdomen, generalized body Pain currently is 7 out of 10 on a pain scale. EENT: No deficits noted. No signs and/or symptoms were reported regarding the EENT system. Neuro: No deficits noted. Cardiovascular: No deficits noted. Respiratory: No deficits noted. GI: Abdomen is distended, obese, Reports nausea, vomiting. : No signs and/or symptoms were reported regarding the genitourinary system. Derm: No signs and/or symptoms reported regarding the dermatologic system. Musculoskeletal: Reports generalized body aches. Historical: - Allergies: 20:31 Farxiga; bm8 20:31 Jardiance; bm8 20:31 Steglatro; bm8 - Home Meds: 20:31 Unable to obtain [Active]; bm8 - PMHx: 20:31 Congestive heart failure; COVID-19; Diabetes - IDDM; Home Oxygen ; 3-4 L; bm8 Hyperlipidemia; kidney disease; lung failure; Myocardial infarction; Sleep Apnea; - PSHx: 20:31 Cholecystectomy; heart cath; Left first finger amputation; bm8 - Immunization history:: Adult Immunizations up to date, Adult Immunizations. - Infectious Disease History:: Denies. - Social history:: Smoking status: Patient denies any tobacco usage or history of. Screenin:32 [facility] ED Fall Risk Assessment (Adult) History of falling in the last 3 months, jb4 including since admission No falls in past 3 months (0 pts) Confusion or Disorientation No (0 pts) Intoxicated or Sedated No (0 pts) Impaired Gait No (0 pts) Mobility Assist Device Used No (0 pt) Altered Elimination No (0 pt) Score/Fall Risk Level 0 - 2 = Low Risk Oriented to surroundings, Maintained a safe environment. Abuse screen: Denies threats or abuse. Nutritional screening: No deficits noted. Tuberculosis screening: No symptoms or risk factors identified. Assessment: 20:32 General: Appears in no apparent distress. uncomfortable, Behavior is calm, cooperative, jb4 appropriate for age. Pain: Complains of pain in forehead, right religion and left religion Pain does not radiate. Pain currently is 8 out of 10 on a pain scale. Quality of pain is described as pressure. Neuro: Level of Consciousness is awake, alert, obeys commands, Oriented to person, place, time, situation. Cardiovascular: Patient's skin is warm and dry. Respiratory: Reports cough that is non-productive, persistent Airway is patent Respiratory effort is even, unlabored, Respiratory pattern is regular, symmetrical. GI: Abdomen is round non-distended, obese, Reports diarrhea, nausea, vomiting. Derm: Skin is intact, Skin is pink, warm \T\ dry. Musculoskeletal: Circulation, motion, and sensation intact. Range of motion: intact in all extremities. 21:42 Reassessment: Patient appears in no apparent distress at this time. Patient and/or jb4 family updated on plan of care and expected duration. Pain level reassessed. Patient is alert, oriented x 3, equal unlabored respirations, skin warm/dry/pink. 22:21 Reassessment: Patient appears in no apparent distress at this time. Patient and/or bm8 family updated on plan of care and expected duration. Pain level reassessed. Patient is alert, oriented x 3, equal unlabored respirations, skin warm/dry/pink. Patient denies pain at this time. Patient states feeling better. Patient states symptoms have improved. 23:23 Reassessment: Patient appears in no apparent distress at this time. Patient and/or bm8 family updated on plan of care and expected duration. Pain level reassessed. Patient is alert, oriented x 3, equal unlabored respirations, skin warm/dry/pink. Patient denies pain at this time. Patient states feeling better. Patient states symptoms have improved. 09/22 01:17 Reassessment: pt is resting with eyes closed breathing is even unlabored with bm8 symmetrical rise and fall of chest. denies pain at this time. awaiting results. Vital Signs: 09/21 20:30 BP 134 / 83; Pulse 94; Resp 17; Temp 98.8; Pulse Ox 95% ; Weight 126.1 kg; Height 5 ft. bm8 4 in. ; Pain 7/10; 21:42 BP 141 / 59; Pulse 79; Resp 22; Pulse Ox 99% on 3 lpm NC; jb4 22:21 BP 138 / 54; Pulse 87; Resp 21; Temp 98.8; Pulse Ox 94% on 3 lpm NC; Pain 0/10; bm8 23:23 BP 150 / 78; Pulse 84; Resp 17; Temp 98.8; Pulse Ox 95% on 3 lpm NC; Pain 0/10; bm8 09/22 01:17 BP 137 / 70; Pulse 82; Resp 17; Temp 98.8; Pulse Ox 97% ; Pain 0/10; bm8 09/21 20:30 Body Mass Index 47.72 (126.10 kg, 162.56 cm) bm8 09/21 20:30 Pain Scale: Adult bm8 22:21 Pain Scale: Adult bm8 23:23 Pain Scale: Adult bm8 09/22 01:17 Pain Scale: Adult bm8 Caridad Coma Score: 09/21 22:21 Eye Response: spontaneous(4). Motor Response: obeys commands(6). Verbal Response: bm8 oriented(5). Total: 15. 23:23 Eye Response: spontaneous(4). Motor Response: obeys commands(6). Verbal Response: bm8 oriented(5). Total: 15. 09/22 01:17 Eye Response: to voice(3). Motor Response: obeys commands(6). Verbal Response: bm8 oriented(5). Total: 14. ED Course: 09/21 20:23 Patient arrived in ED. gm2 20:26 Cholo Johnson PA-C is PHCP. cp 20:26 Chaitanya Amin DO is Attending Physician. cp 20:31 Triage completed. bm8 20:31 Arm band placed on right wrist. bm8 20:32 Dimitry Monteiro, MARILU is Primary Nurse. jb4 20:32 Patient has correct armband on for positive identification. Bed in low position. Call jb4 light in reach. Side rails up X 1. Provided Education on: plan of care. 20:32 Inserted saline lock: 20 gauge in right antecubital area, using aseptic technique. jb4 Blood collected. started by MARILU Smith. 21:00 Basic Metabolic Panel Sent. jb4 21:00 CBC with Diff Sent. jb4 21:00 LFT's Sent. jb4 21:00 Magnesium Sent. jb4 21:00 NT PRO-BNP Sent. jb4 21:00 PT-INR Sent. jb4 21:00 Troponin HS Sent. jb4 21:00 COVID-19 Ag + Flu A+B Ag Sent. jb4 21:00 Lipase Sent. jb4 21:33 XRAY Chest (1 view) In Process Unspecified. EDMS 21:42 No provider procedures requiring assistance completed. jb4 22:21 Client placed on continuous cardiac and pulse oximetry monitoring. NIBP monitoring bm8 applied. classroom monitor on. Pulse ox on. NIBP on. Door closed. Noise minimized. Warm blanket given. Pillow given. Head of bed elevated. 22:21 Oxygen administration via nasal cannula \T\ 3L/min Response to oxygen therapy: symptoms bm8 improved. 23:32 Abdomen In Process Unspecified. EDMS 09/22 01:17 IV discontinued, intact, bleeding controlled, No redness/swelling at site. Pressure bm8 dressing applied. Administered Medications: 09/21 21:00 Drug: metoCLOPramide IVP 10 mg IVP once; over 1 to 2 minutes Route: IVP; Site: right jb4 antecubital; 21:43 Follow up: Response: No adverse reaction; Marked relief of symptoms jb4 21:00 Drug: diphenhydrAMINE IVP 25 mg IVP once Route: IVP; Site: right antecubital; jb4 :43 Follow up: Response: No adverse reaction; Marked relief of symptoms jb4 21:00 Drug: DuoNeb Nebulize (2.5 mg - 0.5 mg) 3 ml Nebulizer once Route: Nebulizer; jb4 :43 Follow up: Response: No adverse reaction; No change in condition jb4 21:06 Drug: Albuterol Inhalation 2.5 mg Inhalation continuous x2 Route: Inhalation; jb4 21:43 Follow up: Response: No adverse reaction; Marked relief of symptoms jb4 21:51 Follow up: Response: No adverse reaction bm8 21:06 Drug: Albuterol Inhalation 2.5 mg Inhalation continuous x2 Route: Inhalation; jb4 Medication: 20:32 VIS not applicable for this client. jb4 Outcome: 09/22 01:40 Discharge ordered by . loc 01:49 Discharged to home ambulatory, bm8 01:49 Condition: stable 01:49 Discharge instructions given to patient, Instructed on discharge instructions, follow up and referral plans. no drinking with medication, no driving heavy equipment, medication usage, safety practices, Demonstrated understanding of instructions, follow-up care, medications, Prescriptions given X 3, 01:49 Patient left the ED. bm8 Signatures: Dispatcher [employer] EDMS Cholo Johnson PA-C PA-C cp Bryson, James, RN RN jb4 Natalya Gaitan 2 Juan Luis Taylor, RN RN bm8 Corrections: (The following items were deleted from the chart) 09/21 23:26 23:23 Pulse 84bpm; Resp 17bpm; Pulse Ox 95% 3 lpm Nasal Cannula; Temp 98.8F; Pain 0/10, bm8 Adult; bm8
[2025-09-22 02:54] VITALS: TEMP 98.8
[2025-09-22 03:14] VITALS: BP 137/70; O2SAT 97
== END 2025-09-22 01:49 | disposition home or self-care (01) ==
LOC: ER 20:18
DX: R11.2 Nausea with vomiting, unspecified (principal); R52 Pain, unspecified
CPT/HCPCS: 36415; 71045; 74176; 80048; 80076; 81001; 83690; 83735; 83880; 84484; 85025; 85610; 87428; 93005; 96374; 96375; 99285; J1200; J2765; J7613; J7644